=== PATIENT | female | born 1950 | race Caucasian/White ===

== ENCOUNTER → 2016-05-20 | Outpatient (CLI) | payer MEDICARE, OTHER ==
--- NOTE | 2016-05-20 15:33 | XR ---
EXAMINATION TYPE: XR chest 2V DATE OF EXAM: 05/20/2016 3:28 PM COMPARISON: 05/02/2015 HISTORY: Leg edema, cardiac dysrhythmia FINDINGS: The lungs are clear and there is no pneumothorax, pleural effusion, or focal pneumonia. Postsurgica l changes are noted. Apical pleural thickening seen. Atherosclerotic change of the aorta. IMPRESSION: 1. No acute process.
--- NOTE | 2016-05-20 15:33 | XR ---
EXAMINATION TYPE: XR ankle complete LT DATE OF EXAM: 05/20/2016 3:28 PM COMPARISON: NONE HISTORY: Pain Three views of the ankle demonstrate the ankle mortise to be intact and symmetric. Vascular calcifica tion seen is a large plantar calcaneal spur. There is a bony density along the medial malleolus. IMPRESSION: 1. Correlate for tiny avulsion fracture medial malleolus
[2016-05-20 16:19] LABS: ALT 38 U/L (9-52); AST 22 U/L (14-36); Alkaline Phosphatase 93 U/L (38-126); Anion Gap 10 mmol/L; Blood Urea Nitrogen 12 mg/dL (7-17); Calcium 9.1 mg/dL (8.4-10.2); Carbon Dioxide 29 mmol/L (22-30); Chloride 103 mmol/L (98-107); Glucose 130 mg/dL (74-99); Non-African American GFR(MDRD) >60 (>60 ml/min/1.73 sqM); Potassium 4.6 mmol/L (3.5-5.1); Sodium 142 mmol/L (137-145); Total Bilirubin 0.5 mg/dL (0.2-1.3); Total Protein 7.5 g/dL (6.3-8.2)
[2016-05-20 16:20] LABS: Basophils % (A) 0 %; CHCM 34.4; Eosinophils # (A) 0.1 k/uL (0-0.7); Eosinophils % (A) 2 %; HCT 37.7 % (34.0-46.0); HDW 3.16; HGB 12.5 gm/dL (11.4-16.0); Luc # (Auto) 0.19; Luc % (Auto) 3; Lymphocytes # (A) 1.6 k/uL (1.0-4.8); Lymphocytes % (A) 29 %; MCH 31.2 pg (25.0-35.0); MCHC 33.2 g/dL (31.0-37.0); MCV 93.7 fL (80.0-100.0); Mean Platelet Volume 6.5; Monocytes # (A) 0.3 k/uL (0-1.0); Monocytes % (A) 6 %; Neutrophils # (A) 3.3 k/uL (1.3-7.7); Neutrophils % (A) 59 %; RBC 4.02 m/uL (3.80-5.40); RDW 13.2 % (11.5-15.5); WBC 5.6 k/uL (3.8-10.6); WBC (Perox) 6.17
== END | disposition home or self-care (01) ==
LOC: RADXRMAIN 15:10
PROVIDERS: ATTEND Family Medicine
DX: M25.572 Pain in left ankle and joints of left foot (principal); I50.9 Heart failure, unspecified
CPT/HCPCS: 71020; 80053; 83880; 85025

== ENCOUNTER → 2016-12-24 | Outpatient (CLI) | payer MEDICARE, OTHER ==
--- NOTE | 2016-12-24 14:24 | CT ---
EXAMINATION TYPE: TEMPORARY DATE OF EXAM: 12/24/2016 COMPARISON: 12/21/2013 HISTORY: Headaches CT DLP: [address] of the head is obtained. Artifact limits assessment of the skull base. Grossly the mook tricular system is midline and there is evidence of previous low attenuation within the right tempora l parietal junction compatible with previous infarct. Small focal area of abnormal attenuation within the right basal ganglia may been the basis of a prominent Virchow-Yassine space or remote lacunar infa rction. Calvarium intact. IMPRESSION: 1. Stable area of remote ischemia involving the right temporal parietal junction with no significant mass effect.
== END | disposition home or self-care (01) ==
LOC: RADCTMAIN 12:09
PROVIDERS: ATTEND Family Medicine
DX: R51 Headache (principal)
CPT/HCPCS: 70450

== ENCOUNTER → 2017-01-16 | Outpatient (CLI) | payer MEDICARE, OTHER ==
[2017-01-16 14:13] LABS: Blood Urea Nitrogen 18 mg/dL (7-17); Non-African American GFR(MDRD) >60 (>60 ml/min/1.73 sqM)
== END | disposition home or self-care (01) ==
LOC: LABWHC1 13:02
PROVIDERS: ATTEND Psychiatry & Neurology Neurology
DX: R51 Headache (principal)
CPT/HCPCS: 36415; 82565; 84520

== ENCOUNTER → 2017-01-20 | Outpatient (CLI) | payer MEDICARE, OTHER ==
--- NOTE | 2017-01-20 15:42 | CT ---
EXAMINATION TYPE: CT brain w con DATE OF EXAM: 01/20/2017 COMPARISON: 12/24/2016 HISTORY: Loss of balance, memory and headache. CT DLP: 960.00 mGycm Automated exposure control for dose reduction was used. CONTRAST: CT scan of the head is performed with IV Contrast, patient injected with 100 mL of Omnipaque 300. FINDINGS: Abnormal attenuation in the right occipital lobe stable from the previous CT scan. Ventricular system is compatible with the patient's age with no midline shift or mass effect. Area of low attenuation in the basal ganglia on the right compatible with remote ischemic change and lacunar infarction. Prominent cortical vein or tiny venous angioma in the right frontal lobe. Calvarium intact. IMPRESSION: 1. Area of low attenuation in the right occipital parietal junction with no abnormal enhancement. Thi s could be on the basis of previous ischemia. 2. Small venous angioma right frontal lobe incidentally noted. 3. Nonspecific white matter changes most commonly seen with remote microvascular ischemia. If symptom s persist consider MRI.
== END | disposition home or self-care (01) ==
LOC: RADCTMAIN 15:00
PROVIDERS: ATTEND Psychiatry & Neurology Neurology
DX: C71.9 Malignant neoplasm of brain, unspecified (principal); R90.82 White matter disease, unspecified
CPT/HCPCS: 70460; Q9967

== ENCOUNTER 2017-04-15 09:55 | Inpatient (IN) | payer MEDICARE, OTHER ==
[2017-04-15] MEDS ORDERED: methylPREDNISolone SOD SUCCI 125 MG/2 ML VIAL IV STA (10:30)
[2017-04-15] MEDS ORDERED: ALBUTEROL NEBULIZED 2.5 MG/3 ML INHALATION STA (10:30)
--- NOTE | 2017-04-15 10:32 | ED ---
General Adult HPI - General Chief complaint: Shortness of Breath Stated complaint: Sob Time Seen by Provider: 04/15/17 10:00 Source: patient, family, RN notes reviewed Mode of arrival: ambulatory Limitations: no limitations - History of Present Illness Initial comments: This is a 67-year-old female with past medical history significant for bypass surgery COPD and congestive heart failure. Patient states the last 3-4 days she 's been coughing and coughing quite a bit of sputum up. Patient states she's had the chills but has not taken her temperature. Patient denies any chest pain or palpitations patient denies any abdominal pain patient denies nausea vomiting diarrhea. Patient denies any headache patient denies any lightheadedness dizziness or near syncopal episode. Patient denies any back pain. Patient denies any dysuria hematuria urinary frequency. Patient states she's taken a breathing treatment but has not helped. - Related Data Home Medications Medication Instructions Recorded Confirmed Citalopram Hydrobromide [CeleXA] 40 mg PO DAILY 12/21/13 04/15/17 Insulin Glargine,Hum.rec.anlog 50 unit SQ HS 04/03/15 04/15/17 [Lantus Solostar] INSULIN LISPRO (HumaLOG) [HumaLOG] 6 units SQ AC-BRKFST 04/04/15 04/15/17 INSULIN LISPRO (HumaLOG) [HumaLOG] 8 units SQ AC-LUNCH 04/04/15 04/15/17 INSULIN LISPRO (HumaLOG) [HumaLOG] 10 units SQ AC-SUPPER 04/04/15 04/15/17 Furosemide [Lasix] 20 mg PO DAILY 05/02/15 04/15/17 Metoprolol Succinate [Toprol XL] 50 mg PO DAILY 05/02/15 04/15/17 Nitroglycerin Sl Tabs [Nitrostat] 0.4 mg SUBLINGUAL Q5M PRN 05/02/15 04/15/17 Albuterol Nebulized [Ventolin 2.5 mg INHALATION RT-Q4H PRN 04/15/17 04/15/17 Nebulized] Aspirin 81 mg PO DAILY 04/15/17 04/15/17 Losartan Potassium 50 mg PO DAILY 04/15/17 04/15/17 Potassium Chloride ER [K-Dur 20] 20 meq PO DAILY 04/15/17 04/15/17 Simvastatin [Zocor] 40 mg PO HS 04/15/17 04/15/17 amLODIPine [Norvasc] 10 mg PO DAILY 04/15/17 04/15/17 Allergies Allergy/AdvReac Type Severity Reaction Status Date / Time levofloxacin [From Levaquin] Allergy Confusion Verified 04/15/17 11:33 nickel Allergy Wheezing Verified 04/15/17 11:33 Review of Systems ROS Statement: Those systems with pertinent positive or pertinent negative responses have been documented in the HPI. ROS Other: All systems not noted in ROS Statement are negative. Past Medical History Past Medical History: Asthma, Heart Failure, COPD, CVA/TIA, Diabetes Mellitus, Hyperlipidemia, Hypertension, Pneumonia Additional Past Medical History / Comment(s): ARTHRITIS, STROKE 2013. UTI-2013,RT GREAT TOE WOUND. History of Any Multi-Drug Resistant Organisms: None Reported Past Surgical History: Adenoidectomy, Appendectomy, Tonsillectomy, Tubal Ligation Additional Past Surgical History / Comment(s): Open heart on April 13 2015 Past Anesthesia/Blood Transfusion Reactions: Previous Problems w/ Anesthesia Additional Past Anesthesia/Blood Transfusion Reaction / Comment(s): diff breathing Past Psychological History: No Psychological Hx Reported Smoking Status: Former smoker Past Alcohol Use History: Rare Past Drug Use History: None Reported - Past Family History Father Family Medical History: Coronary Artery Disease (CAD), CVA/TIA, Diabetes Mellitus General Exam - General Exam Comments Initial Comments: GENERAL: Patient is well-developed and well-nourished. Patient is nontoxic and well- hydrated and is in mild distress. ENT: Neck is soft and supple. No significant lymphadenopathy is noted. Oropharynx is clear. Moist mucous membranes. Neck has full range of motion without eliciting any pain. EYES: The sclera were anicteric and conjunctiva were pink and moist. Extraocular movements were intact and pupils were equal round and reactive to light. Eyelids were unremarkable. PULMONARY: Diffusely wheezing and decreased breath sounds. CARDIOVASCULAR: There is a regular rate and rhythm without any murmurs gallops or rubs. ABDOMEN: Soft and nontender with normal bowel sounds. No palpable organomegaly was noted. There is no palpable pulsatile mass. SKIN: Skin is clear with no lesions or rashes and otherwise unremarkable. NEUROLOGIC: Patient is alert and oriented x3. Cranial nerves II through XII are grossly intact. Motor and sensory are also intact. Normal speech, volume and content. Symmetrical smile. MUSCULOSKELETAL: Normal extremities with adequate strength and full range of motion. No lower extremity swelling or edema. No calf tenderness. LYMPHATICS: No significant lymphadenopathy is noted PSYCHIATRIC: Normal psychiatric evaluation. Limitations: no limitations Course Vital Signs 04/15/17 04/15/17 04/15/17 09:57 10:53 11:00 Temperature 98.2 F Pulse Rate 121 H 97 111 H Respiratory 28 H 20 Rate Blood Pressure 150/67 138/68 O2 Sat by Pulse 88 L 94 L Oximetry 04/15/17 04/15/17 11:17 12:30 Temperature Pulse Rate 114 H 105 H Respiratory 20 Rate Blood Pressure 162/93 O2 Sat by Pulse 93 L Oximetry Medical Decision Making - Medical Decision Making KG shows a sinus tachycardia at 102 bpm IA interval is 94 QRS is 84 QT interval 3:30 QTC is 440 per patient's EKG shows no ST segment elevation or depression. Patient has some inverted T waves in leads 1 and aVL. Patient's chest x-ray shows no acute normalities. Patient continues to be wheezy throughout. Patient's positive for influenza but this started 4 days ago so no Tamiflu will be started. - Lab Data Result diagrams: 04/15/17 10:45 04/15/17 10:45 Lab Results 04/15/17 04/15/17 04/15/17 Range/Units 10:45 10:45 10:45 WBC 4.5 (3.8-10.6) k/uL RBC 4.61 (3.80-5.40) m/uL Hgb 13.3 (11.4-16.0) gm/dL Hct 41.4 (34.0-46.0) % MCV 89.7 (80.0-100.0) fL MCH 28.7 (25.0-35.0) pg MCHC 32.0 (31.0-37.0) g/dL RDW 15.0 (11.5-15.5) % Plt Count 227 (150-450) k/uL Neutrophils % 54 % Lymphocytes % 30 % Monocytes % 6 % Eosinophils % 6 % Basophils % 0 % Neutrophils # 2.4 (1.3-7.7) k/uL Lymphocytes # 1.3 (1.0-4.8) k/uL Monocytes # 0.3 (0-1.0) k/uL Eosinophils # 0.3 (0-0.7) k/uL Basophils # 0.0 (0-0.2) k/uL PT (9.0-12.0) sec INR (<1.2) APTT (22.0-30.0) sec Sodium 141 (137-145) mmol/L Potassium 4.3 (3.5-5.1) mmol/L Chloride 103 (98-107) mmol/L Carbon Dioxide 25 (22-30) mmol/L Anion Gap 13 mmol/L BUN 12 (7-17) mg/dL Creatinine 0.70 (0.52-1.04) mg/dL Est GFR (MDRD) Af Amer >60 (>60 ml/min/1.73 sqM) Est GFR (MDRD) Non-Af >60 (>60 ml/min/1.73 sqM) Glucose 240 H (74-99) mg/dL Plasma Lactic Acid Sandeep (0.7-2.0) mmol/L Calcium 8.8 (8.4-10.2) mg/dL Magnesium 1.8 (1.6-2.3) mg/dL Total Bilirubin 0.4 (0.2-1.3) mg/dL AST 24 (14-36) U/L ALT 39 (9-52) U/L Alkaline Phosphatase 95 (38-126) U/L Total Creatine Kinase 174 H (30-135) U/L CK-MB (CK-2) 1.2 (0.0-2.4) ng/mL CK-MB (CK-2) Rel Index 0.7 Troponin I 0.018 (0.000-0.034) ng/mL NT-Pro-B Natriuret Pep pg/mL Total Protein 7.2 (6.3-8.2) g/dL Albumin 3.9 (3.5-5.0) g/dL Influenza Type A RNA (Not Detectd) Influenza Type B (PCR) (Not Detectd) 04/15/17 04/15/17 04/15/17 Range/Units 10:45 10:45 10:45 WBC (3.8-10.6) k/uL RBC (3.80-5.40) m/uL Hgb (11.4-16.0) gm/dL Hct (34.0-46.0) % MCV (80.0-100.0) fL MCH (25.0-35.0) pg MCHC (31.0-37.0) g/dL RDW (11.5-15.5) % Plt Count (150-450) k/uL Neutrophils % % Lymphocytes % % Monocytes % % Eosinophils % % Basophils % % Neutrophils # (1.3-7.7) k/uL Lymphocytes # (1.0-4.8) k/uL Monocytes # (0-1.0) k/uL Eosinophils # (0-0.7) k/uL Basophils # (0-0.2) k/uL PT 9.7 (9.0-12.0) sec INR 1.0 (<1.2) APTT 22.8 (22.0-30.0) sec Sodium (137-145) mmol/L Potassium (3.5-5.1) mmol/L Chloride (98-107) mmol/L Carbon Dioxide (22-30) mmol/L Anion Gap mmol/L BUN (7-17) mg/dL Creatinine (0.52-1.04) mg/dL Est GFR (MDRD) Af Amer (>60 ml/min/1.73 sqM) Est GFR (MDRD) Non-Af (>60 ml/min/1.73 sqM) Glucose (74-99) mg/dL Plasma Lactic Acid Sandeep 1.2 (0.7-2.0) mmol/L Calcium (8.4-10.2) mg/dL Magnesium (1.6-2.3) mg/dL Total Bilirubin (0.2-1.3) mg/dL AST (14-36) U/L ALT (9-52) U/L Alkaline Phosphatase (38-126) U/L Total Creatine Kinase (30-135) U/L CK-MB (CK-2) (0.0-2.4) ng/mL CK-MB (CK-2) Rel Index Troponin I (0.000-0.034) ng/mL NT-Pro-B Natriuret Pep 294 pg/mL Total Protein (6.3-8.2) g/dL Albumin (3.5-5.0) g/dL Influenza Type A RNA (Not Detectd) Influenza Type B (PCR) (Not Detectd) 04/15/17 Range/Units 12:02 WBC (3.8-10.6) k/uL RBC (3.80-5.40) m/uL Hgb (11.4-16.0) gm/dL Hct (34.0-46.0) % MCV (80.0-100.0) fL MCH (25.0-35.0) pg MCHC (31.0-37.0) g/dL RDW (11.5-15.5) % Plt Count (150-450) k/uL Neutrophils % % Lymphocytes % % Monocytes % % Eosinophils % % Basophils % % Neutrophils # (1.3-7.7) k/uL Lymphocytes # (1.0-4.8) k/uL Monocytes # (0-1.0) k/uL Eosinophils # (0-0.7) k/uL Basophils # (0-0.2) k/uL PT (9.0-12.0) sec INR (<1.2) APTT (22.0-30.0) sec Sodium (137-145) mmol/L Potassium (3.5-5.1) mmol/L Chloride (98-107) mmol/L Carbon Dioxide (22-30) mmol/L Anion Gap mmol/L BUN (7-17) mg/dL Creatinine (0.52-1.04) mg/dL Est GFR (MDRD) Af Amer (>60 ml/min/1.73 sqM) Est GFR (MDRD) Non-Af (>60 ml/min/1.73 sqM) Glucose (74-99) mg/dL Plasma Lactic Acid Sandeep (0.7-2.0) mmol/L Calcium (8.4-10.2) mg/dL Magnesium (1.6-2.3) mg/dL Total Bilirubin (0.2-1.3) mg/dL AST (14-36) U/L ALT (9-52) U/L Alkaline Phosphatase (38-126) U/L Total Creatine Kinase (30-135) U/L CK-MB (CK-2) (0.0-2.4) ng/mL CK-MB (CK-2) Rel Index Troponin I (0.000-0.034) ng/mL NT-Pro-B Natriuret Pep pg/mL Total Protein (6.3-8.2) g/dL Albumin (3.5-5.0) g/dL Influenza Type A RNA Detected H (Not Detectd) Influenza Type B (PCR) Not Detected (Not Detectd) Disposition Clinical Impression: COPD with acute exacerbation, Influenza A Disposition: ADMITTED IP TO THIS HOSP Referrals: Jacob Sanderson DO [Primary Care Provider] - 1-2 days Time of Disposition: 13:18
[2017-04-15 11:18] LABS: Partial Thromboplastin Time 22.8 sec (22.0-30.0); Prothrombin Time 9.7 sec (9.0-12.0)
[2017-04-15 11:19] LABS: ALT 39 U/L (9-52); AST 24 U/L (14-36); Albumin 3.9 g/dL (3.5-5.0); Alkaline Phosphatase 95 U/L (38-126); Anion Gap 13 mmol/L; Blood Urea Nitrogen 12 mg/dL (7-17); Calcium 8.8 mg/dL (8.4-10.2); Carbon Dioxide 25 mmol/L (22-30); Chloride 103 mmol/L (98-107); Glucose 240 mg/dL (74-99); Magnesium 1.8 mg/dL (1.6-2.3); Potassium 4.3 mmol/L (3.5-5.1); Sodium 141 mmol/L (137-145); Total Bilirubin 0.4 mg/dL (0.2-1.3); Total Protein 7.2 g/dL (6.3-8.2)
[2017-04-15 11:30] LABS: Basophils % (A) 0 %; Eosinophils # (A) 0.3 k/uL (0-0.7); Eosinophils % (A) 6 %; HCT 41.4 % (34.0-46.0); HGB 13.3 gm/dL (11.4-16.0); Lymphocytes # (A) 1.3 k/uL (1.0-4.8); Lymphocytes % (A) 30 %; MCH 28.7 pg (25.0-35.0); MCV 89.7 fL (80.0-100.0); Monocytes # (A) 0.3 k/uL (0-1.0); Monocytes % (A) 6 %; Neutrophils # (A) 2.4 k/uL (1.3-7.7); Neutrophils % (A) 54 %; Platelet Count 227 k/uL (150-450); RBC 4.61 m/uL (3.80-5.40); WBC 4.5 k/uL (3.8-10.6)
--- NOTE | 2017-04-15 11:49 | XR ---
EXAMINATION TYPE: XR chest 2V DATE OF EXAM: 04/15/2017 COMPARISON: 05/20/2016 TECHNIQUE: PA and lateral views submitted. HISTORY: Difficulty breathing FINDINGS: Postsurgical change noted. Hyperinflation suggests COPD. Arthropathy of the shoulders with diffuse os teopenia. No pneumothorax or overt failure. No interstitial edema. Hypertrophic and degenerative major ge of the spine. IMPRESSION: 1. COPD
[2017-04-15 11:58] LABS: Creatine Kinase MB 1.2 ng/mL (0.0-2.4); Troponin I 0.018 ng/mL (0.000-0.034)
[2017-04-15] MEDS ORDERED: IPRATROPIUM-ALBUTEROL 3 ML NEB INHALATION PRN (13:19)
[2017-04-15] MEDS: OSELTAMIVIR 75 MG CAP PO SCH ×2 (14:33→20:59)
[2017-04-15] MEDS ORDERED: NITROGLYCERIN SL TABS 0.4 MG TAB SUBLINGUAL PRN (17:34)
[2017-04-15] MEDS: INSULIN ASPART 100 UNIT/ML 1 ML 10 ML VIAL SQ SCH ×2 (17:42→21:18)
[2017-04-15] MEDS: methylPREDNISolone SOD SUCCI 125 MG/2 ML VIAL IV SCH (17:45)
[2017-04-15] MEDS ORDERED: ACETAMINOPHEN TAB 325 MG TAB PO PRN (17:57)
--- NOTE | 2017-04-15 18:45 | P.HPIM ---
History of Present Illness H&P Date: 04/15/17 Chief Complaint: SOB 65-year-old female one of Dr. 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 Patient was last seen in 2014 for COPD exacerbation. Patient is here in [facility] with worsening shortness of breath or dyspnea with mild cough and wheezes for past 4 days. Patient was in [place] few days back and was exposed to her sick grandchild and has not felt better since then. Positive for influenza A along with ehr She was admitted for acute hypoxic respiratory failure secondary to COPD exacerbation Review of Systems Constitutional: Denies chills, Denies fever, endorses significant weakness and lack of energy Eyes: denies decreased vision, denies diplopia, denies discharge, denies pain Ears: deny: decreased hearing Ears, nose, mouth and throat: Denies dental pain, endorses headache, endorses nasal discharge, Denies nose pain Cardiovascular: Denies chest pain, Denies decreased exercise tolerance, Denies edema, Denies high blood pressure, Denies irregular heart beat, Denies palpitations, Denies paroxysmal nocturnal dyspnea, Denies rapid heart beat, Denies shortness of breath Respiratory: Endorses congestion, cough, sputum production, dyspnea on exertion , wheezing Gastrointestinal: Denies abdominal pain, Denies change in bowel habits, Denies coffee ground emesis, Denies early satiety, Denies excessive gas, Denies heartburn, Denies hematemesis, Denies hematochezia, Denies loss of appetite, Denies nausea, Denies vomiting Genitourinary: Denies dysuria, Denies flank pain, Denies kidney stones, Denies menorrhagia, Denies urgency, Denies urinary frequency Musculoskeletal: Denies gait dysfunction, Denies limitation of motion, Denies morning stiffness, Denies muscle cramps Integumentary: Denies rash, Denies wounds, Denies brittle nails, Denies change in hair/nails, Denies darkening of skin Neurological: Denies balance difficulties, Denies change in speech, Denies double vision, Denies gait dysfunction, Denies loss of vision, Denies motor disturbance, Denies numbness, Denies paralysis, Denies paresthesias, Denies seizures Psychiatric: Denies anxiety, Denies depression Endocrine: Denies excessive sweating, Denies excessive thirst, Denies high blood sugars, Denies palpitations Hematologic/Lymphatic: Denies easy bruising, Denies lymphadenopathy Past Medical History Past Medical History: Asthma, Heart Failure, COPD, CVA/TIA, Diabetes Mellitus, Hyperlipidemia, Hypertension, Myocardial Infarction ([place]), Pneumonia Additional Past Medical History / Comment(s): ARTHRITIS, STROKE 2013 has some short term memory problems and occ balalnce issues. UTI-,RT GREAT TOE WOUND(had amp)."x2 mi's", beginning cataract lt eye. arhtritis Last Myocardial Infarction Date:: 2014 History of Any Multi-Drug Resistant Organisms: None Reported Past Surgical History: Adenoidectomy, Appendectomy, Heart Catheterization, Tonsillectomy, Tubal Ligation Additional Past Surgical History / Comment(s): Open heart on04-14-15 at [place]( quad bypass),rt great toe amp. rt leg stent. Past Anesthesia/Blood Transfusion Reactions: Previous Problems w/ Anesthesia Additional Past Anesthesia/Blood Transfusion Reaction / Comment(s): diff breathing Smoking Status: Former smoker - Past Family History Father Family Medical History: Coronary Artery Disease (CAD), CVA/TIA, Diabetes Mellitus Mother Additional Family Medical History / Comment(s): "spot on the lung" Medications and Allergies Home Medications Medication Instructions Recorded Confirmed Type Citalopram Hydrobromide [CeleXA] 40 mg PO DAILY 12/21/13 04/15/17 History Insulin Glargine,Hum.rec.anlog 50 unit SQ HS 04/03/15 04/15/17 History [Lantus Solostar] INSULIN LISPRO (HumaLOG) [HumaLOG] 6 units SQ AC-BRKFST 04/04/15 04/15/17 History INSULIN LISPRO (HumaLOG) [HumaLOG] 8 units SQ AC-LUNCH 04/04/15 04/15/17 History INSULIN LISPRO (HumaLOG) [HumaLOG] 10 units SQ AC-SUPPER 04/04/15 04/15/17 History Furosemide [Lasix] 20 mg PO DAILY 05/02/15 04/15/17 History Metoprolol Succinate [Toprol XL] 50 mg PO DAILY 05/02/15 04/15/17 History Nitroglycerin Sl Tabs [Nitrostat] 0.4 mg SUBLINGUAL Q5M PRN 05/02/15 04/15/17 History Albuterol Nebulized [Ventolin 2.5 mg INHALATION RT-Q4H PRN 04/15/17 04/15/17 History Nebulized] Aspirin 81 mg PO DAILY 04/15/17 04/15/17 History Losartan Potassium 50 mg PO DAILY 04/15/17 04/15/17 History Potassium Chloride ER [K-Dur 20] 20 meq PO DAILY 04/15/17 04/15/17 History Simvastatin [Zocor] 40 mg PO HS 04/15/17 04/15/17 History amLODIPine [Norvasc] 10 mg PO DAILY 04/15/17 04/15/17 History Allergies Allergy/AdvReac Type Severity Reaction Status Date / Time levofloxacin [From Levaquin] Allergy Confusion Verified 04/15/17 11:33 nickel Allergy Wheezing Verified 04/15/17 11:33 Physical Exam Vitals: Vital Signs Temp Pulse Pulse Resp BP Pulse Ox 04/15/17 17:58 107 H 18 04/15/17 17:22 108 H 04/15/17 17:11 108 H 94 L 04/15/17 16:00 98.5 F 98 20 151/65 95 04/15/17 15:00 97 20 147/65 94 L 04/15/17 14:00 108 H 20 156/70 93 L 04/15/17 12:30 105 H 20 162/93 93 L 04/15/17 11:17 114 H 04/15/17 11:00 111 H 20 138/68 94 L 04/15/17 10:53 97 04/15/17 09:57 98.2 F 121 H 28 H 150/67 88 L Intake and Output 04/15/17 04/15/17 04/15/17 06:59 14:59 22:59 Intake Total 100 Balance 100 Intake: Oral 100 Other: Weight 88.451 kg Patient Weight 04/16/17 06:59 Weight 88.451 kg - Constitutional General appearance: cooperative, no acute distress, obese - EENT Eyes: anicteric sclerae, PERRLA, normal appearance ENT: hearing grossly normal - Neck Neck: no lymphadenopathy, normal ROM, no other, no rigidity, no stridor, no thyromegaly - Respiratory Respiratory: bilateral diminished breath sounds with significant wheezing in all quadrant - Cardiovascular Rhythm: regular Heart sounds: normal: S1, S2 Abnormal Heart Sounds: no systolic murmur, no diastolic murmur, no rub, no S3 Gallop, no S4 Gallop, no click, no other - Gastrointestinal General gastrointestinal: normal bowel sounds, soft - Integumentary Integumentary: no rash - Neurologic Neurologic: CNII-XII intact - Musculoskeletal Musculoskeletal: gait normal, strength equal bilaterally - Psychiatric Psychiatric: A&O x's 3, appropriate affect Results CBC & Chem 7: 04/15/17 10:45 04/15/17 10:45 Labs: Abnormal Lab Results - Last 24 Hours (Table) 04/15/17 04/15/17 04/15/17 Range/Units 10:45 10:45 12:02 Glucose 240 H (74-99) mg/dL Total Creatine Kinase 174 H (30-135) U/L Influenza Type A RNA Detected H (Not Detectd) Thrombosis Risk Factor Assmnt - DVT/VTE Prophylaxis DVT/VTE Prophylaxis: Pharmacologic Prophylaxis ordered Assessment and Plan Plan: 1 COPD exacerbation with acute hypoxic respiratory failure secondary to influenza A .continue DuoNeb as needed for shortness of breath associated with Solu-Medrol 60 IV every 6, sputum culture, incentive spirometry and azithromycin for anti-inflammation effects. Chest x-ray negative for any consolidation 2. Influenza A pneumonia Tamiflu 75 mg by mouth twice a day 3. Severe congestive heart failure with ejection fraction last reported in 2014 as 25% - continue patient on Lasix, aspirin, Lipitor, losartan and metoprolol 4 diabetes2: Patient will be on Accu-Chek with sliding scales coverage. Continue Lantus at 40 units bedtime 5 hypertension: Patient has been on amlodipine. 6 restless leg syndrome: Patient has been on Requip 0.5 mg daily at bedtime. 7 depression: Patient has been on citalopram 20 mg daily. 8 hyperlipidemia: Resume statin for now. #9 coronary artery disease status post quadruple bypass in 2015, stable GI prophylaxis: Patient will be on Protonix 40 mg IV daily. DVT prophylaxis: Lovenox 40 daily CODE STATUS: Full code. Expectation from's admission: Patient be in the hospital for more than 2 nights.
[2017-04-15] MEDS: IPRATROPIUM-ALBUTEROL 3 ML NEB INHALATION PRN (20:33)
[2017-04-15 20:45] LABS: Glucose,Whole Blood 496 mg/dL (75-99)
[2017-04-15 20:45] LABS: Glucose,Whole Blood 516 mg/dL (75-99)
[2017-04-15] MEDS: AZITHROMYCIN 500 MG TAB PO SCH (20:59)
[2017-04-15] MEDS ORDERED: INSULIN DETEMIR 100 UNIT/ML 10 ML VIAL SQ SCH (21:00)
[2017-04-15] MEDS ORDERED: INSULIN REGULAR BOLUS (FROM DRIP BAG) IV ONE (21:15)
[2017-04-15] MEDS: INSULIN REGULAR 100 UNIT in SODIUM CHLORIDE 0.9% 100 ML IV SCH (22:34)
[2017-04-15 23:16] LABS: Glucose,Whole Blood 508 mg/dL (75-99)
[2017-04-15] MEDS: ATORVASTATIN 20 MG TAB PO SCH (23:23)
[2017-04-15] MEDS: HEPARIN SODIUM,PORCINE 5,000 UNIT/ML 1 ML VIAL SQ SCH (23:23)
[2017-04-15 23:39] LABS: Glucose,Whole Blood 554 mg/dL (75-99)
[2017-04-16] MEDS: methylPREDNISolone SOD SUCCI 125 MG/2 ML VIAL IV SCH ×4 (00:06→17:04)
[2017-04-16 00:41] LABS: Glucose,Whole Blood 463 mg/dL (75-99)
[2017-04-16 01:17] LABS: Glucose,Whole Blood 437 mg/dL (75-99)
[2017-04-16 01:49] LABS: Glucose,Whole Blood 369 mg/dL (75-99)
[2017-04-16 01:58] LABS: Hemoglobin A1C 7.7 % (4.0-6.0)
[2017-04-16] MEDS: INSULIN REGULAR 100 UNIT in SODIUM CHLORIDE 0.9% 100 ML IV SCH ×2 (02:00→04:43)
[2017-04-16 02:20] LABS: Glucose,Whole Blood 333 mg/dL (75-99)
[2017-04-16 02:51] LABS: Glucose,Whole Blood 317 mg/dL (75-99)
[2017-04-16 03:22] LABS: Glucose,Whole Blood 286 mg/dL (75-99)
[2017-04-16 03:55] LABS: Glucose,Whole Blood 276 mg/dL (75-99)
[2017-04-16 04:38] LABS: Glucose,Whole Blood 203 mg/dL (75-99)
[2017-04-16 06:32] LABS: Glucose,Whole Blood 156 mg/dL (75-99)
[2017-04-16 06:33] LABS: Basophils % (A) 0 %; Eosinophils % (A) 0 %; HGB 12.9 gm/dL (11.4-16.0); Lymphocytes % (A) 14 %; MCH 27.9 pg (25.0-35.0); MCHC 31.5 g/dL (31.0-37.0); MCV 88.5 fL (80.0-100.0); Mean Platelet Volume 7.1; Monocytes # (A) 0.3 k/uL (0-1.0); Monocytes % (A) 3 %; Neutrophils # (A) 5.9 k/uL (1.3-7.7); Neutrophils % (A) 81 %; Platelet Count 252 k/uL (150-450); RBC 4.63 m/uL (3.80-5.40); RDW 14.8 % (11.5-15.5); WBC 7.3 k/uL (3.8-10.6)
[2017-04-16 06:58] LABS: Anion Gap 13 mmol/L; Blood Urea Nitrogen 24 mg/dL (7-17); Calcium 9.4 mg/dL (8.4-10.2); Carbon Dioxide 24 mmol/L (22-30); Chloride 102 mmol/L (98-107); Glucose 146 mg/dL (74-99); Potassium 4.7 mmol/L (3.5-5.1); Sodium 139 mmol/L (137-145)
[2017-04-16] MEDS: INSULIN ASPART 100 UNIT/ML 1 ML 10 ML VIAL SQ SCH ×3 (07:07→17:03)
[2017-04-16] MEDS: IPRATROPIUM-ALBUTEROL 3 ML NEB INHALATION PRN ×4 (07:35→20:04)
[2017-04-16] MEDS: AZITHROMYCIN 500 MG TAB PO SCH (08:54)
[2017-04-16] MEDS: amLODIPine 10 MG TAB PO SCH (08:54)
[2017-04-16] MEDS: ASPIRIN 81 MG PO SCH (08:54)
[2017-04-16] MEDS: CITALOPRAM HYDROBROMIDE 20 MG TAB PO SCH (08:54)
[2017-04-16] MEDS: HEPARIN SODIUM,PORCINE 5,000 UNIT/ML 1 ML VIAL SQ SCH ×2 (08:55→20:03)
[2017-04-16] MEDS: LOSARTAN 50 MG TAB PO SCH (08:55)
[2017-04-16] MEDS: FUROSEMIDE 20 MG TAB PO SCH (08:55)
[2017-04-16] MEDS: METOPROLOL SUCCINATE (ER) 50 MG TAB.ER.24H PO SCH (08:55)
[2017-04-16] MEDS: OSELTAMIVIR 75 MG CAP PO SCH ×2 (08:56→20:03)
[2017-04-16] MEDS: POTASSIUM CHLORIDE ER 20 MEQ TAB.ER PO SCH (08:56)
[2017-04-16 09:00] LABS: Glucose,Whole Blood 265 mg/dL (75-99)
[2017-04-16] MEDS ORDERED: ENOXAPARIN 40 MG/0.4 ML SYRINGE SQ SCH (09:00)
[2017-04-16] MEDS ORDERED: BENZOCAINE/MENTHOL LOZENG 1 EACH LOZENGE MUCOUS MEM PRN (09:13)
[2017-04-16 10:24] LABS: Glucose,Whole Blood 281 mg/dL (75-99)
--- NOTE | 2017-04-16 11:16 | P.PN ---
Subjective Progress Note Date: 04/16/17 65-year-old female one of Dr. 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 Patient was last seen in 2014 for COPD exacerbation. Patient is here in [facility] with worsening shortness of breath or dyspnea with mild cough and wheezes for past 4 days. Patient was in [place] few days back and was exposed to her sick grandchild and has not felt better since then. Positive for influenza A along with ehr She was admitted for acute hypoxic respiratory failure secondary to COPD exacerbation 04/16: Blood blood glucose running between 156 and 317 which is improvement from 400 to 500s. She will be continued on insulin drip for another 24 hours. Patient continues to have coughing and wheezing. She has been afebrile and mildly tachycardic. Incentive spirometry added. She is currently on Solu- Medrol 60 mg IV every 6 hours which will be continued. Pulmonary consult in place. Patient is continued on Tamiflu and isolation precautions. Objective - Vital Signs Vital signs: Vital Signs Temp 97.5 F L 04/16/17 04:05 Pulse 94 04/16/17 07:45 Resp 18 04/16/17 04:05 BP 141/77 04/16/17 04:05 Pulse Ox 94 L 04/16/17 04:05 Intake & Output 04/15/17 04/16/17 04/16/17 18:59 06:59 18:59 Intake Total 100 308.668 Balance 100 308.668 Weight 88.451 kg 90.3 kg Intake: IV 60 0.9 60 Intake, IV Titration 248.668 Amount Insulin Regular 100 unit 248.668 In Sodium Chloride 0.9% 100 ml @ Titrate IV .Q0M [facility] Rx#:[id number] Oral 100 Other: Voiding Method Toilet - Exam - Constitutional General appearance: cooperative, no acute distress, obese - EENT Eyes: anicteric sclerae, PERRLA, normal appearance ENT: hearing grossly normal - Neck Neck: no lymphadenopathy, normal ROM, no other, no rigidity, no stridor, no thyromegaly - Respiratory Respiratory: bilateral diminished breath sounds with significant wheezing in all quadrant - Cardiovascular Rhythm: regular Heart sounds: normal: S1, S2 Abnormal Heart Sounds: no systolic murmur, no diastolic murmur, no rub, no S3 Gallop, no S4 Gallop, no click, no other - Gastrointestinal General gastrointestinal: normal bowel sounds, soft - Integumentary Integumentary: no rash - Neurologic Neurologic: CNII-XII intact - Musculoskeletal Musculoskeletal: gait normal, strength equal bilaterally - Psychiatric Psychiatric: A&O x's 3, appropriate affect - Labs CBC & Chem 7: 04/16/17 06:03 04/16/17 06:03 Labs: Abnormal Lab Results - Last 24 Hours (Table) 04/15/17 04/15/17 04/15/17 Range/Units 10:45 10:45 12:02 BUN (7-17) mg/dL Glucose 240 H (74-99) mg/dL POC Glucose (mg/dL) (75-99) mg/dL Total Creatine Kinase 174 H (30-135) U/L Influenza Type A RNA Detected H (Not Detectd) 04/15/17 04/15/17 04/15/17 Range/Units 20:41 20:42 23:04 BUN (7-17) mg/dL Glucose (74-99) mg/dL POC Glucose (mg/dL) 496 H 516 H 508 H (75-99) mg/dL Total Creatine Kinase (30-135) U/L Influenza Type A RNA (Not Detectd) 04/15/17 04/16/17 04/16/17 Range/Units 23:37 00:28 01:14 BUN (7-17) mg/dL Glucose (74-99) mg/dL POC Glucose (mg/dL) 554 H 463 H 437 H (75-99) mg/dL Total Creatine Kinase (30-135) U/L Influenza Type A RNA (Not Detectd) 04/16/17 04/16/17 04/16/17 Range/Units 01:48 02:19 02:47 BUN (7-17) mg/dL Glucose (74-99) mg/dL POC Glucose (mg/dL) 369 H 333 H 317 H (75-99) mg/dL Total Creatine Kinase (30-135) U/L Influenza Type A RNA (Not Detectd) 04/16/17 04/16/17 04/16/17 Range/Units 03:19 03:53 04:36 BUN (7-17) mg/dL Glucose (74-99) mg/dL POC Glucose (mg/dL) 286 H 276 H 203 H (75-99) mg/dL Total Creatine Kinase (30-135) U/L Influenza Type A RNA (Not Detectd) 04/16/17 04/16/17 Range/Units 06:03 06:13 BUN 24 H (7-17) mg/dL Glucose 146 H (74-99) mg/dL POC Glucose (mg/dL) 156 H (75-99) mg/dL Total Creatine Kinase (30-135) U/L Influenza Type A RNA (Not Detectd) Assessment and Plan Plan: 1 COPD exacerbation with acute hypoxic respiratory failure secondary to influenza A .continue DuoNeb as needed for shortness of breath associated with Solu-Medrol 60 IV every 6, sputum culture, incentive spirometry and azithromycin for anti-inflammation effects. Chest x-ray negative for any consolidation 2. Influenza A pneumonia Tamiflu 75 mg by mouth twice a day 3. Severe systolic congestive heart failure with ejection fraction last reported in 2015 as 25% - continue patient on Lasix, aspirin, Lipitor, losartan and metoprolol 4 diabetes type 2 uncontrolled secondary to illness and steroids: Patient will be on insulin drip for 1 more day 5 hypertension: Patient has been on amlodipine. 6 restless leg syndrome: Patient has been on Requip 0.5 mg daily at bedtime. 7 recurrent depression: Patient has been on citalopram 20 mg daily. 8 hyperlipidemia: Resume statin for now. 9 coronary artery disease status post quadruple bypass in 2014, stable GI prophylaxis: Patient will be on Protonix 40 mg IV daily. DVT prophylaxis: Lovenox 40 daily CODE STATUS: Full code. Expectation from's admission: Patient be in the hospital for more than 2 nights. Discharge plan: To be determined Impression and plan of care have been directed as dictated by the signing physician. Emily Higginbotham nurse practitioner acting as scribe for signing physician.
[2017-04-16 12:25] LABS: Glucose,Whole Blood 240 mg/dL (75-99)
--- NOTE | 2017-04-16 14:22 | P.CNPUL ---
History of Present Illness Consult date: 04/16/17 Reason for consult: dyspnea History of present illness: A pleasant 67-year-old female patient known having history of coronary artery disease with a previous carotid bypass surgery along with history of COPD/asthma , diabetes mellitus, hypertension and hyperlipidemia, and a previous history of CVA, who presented to the hospital yesterday because of increased cough, chest congestion, wheezing, respiratory distress, feeling fatigued and weak in addition to feeding feverish. The patient was in [place] to visit family and apparently there was a great grandkids who was sick with a respiratory illness at age of 3. After arriving to [place] the patient started getting progressively more symptomatic when she started having all the above-mentioned symptoms. Her symptoms started approximately 4-5 days ago. She tried to contact her primary care physician however he was closed for the holidays. Ultimately condition got worse and both she and her got sick and they both in the hospital. Influenza A screen was positive. Currently the patient is on Tamiflu. Her COPD/asthma is also exacerbated and the patient is on a combination of bronchodilators and systemic steroids. She has developed steroid -induced hyperglycemia and she is on insulin drip. No change in mental status. No altered mentation. No diarrhea. No nausea or vomiting. She is feeling weak and lethargic in general. The patient has not received a flu shot for this current year. Review of Systems Constitutional: Reports fatigue, Reports fever, Reports lethargy, Reports weakness Eyes: denies blurred vision, denies bulging eye, denies decreased vision Ears: deny: decreased hearing, ear discharge, earache Ears, nose, mouth and throat: Denies headache, Denies sore throat Cardiovascular: Reports decreased exercise tolerance, Reports dyspnea on exertion, Reports shortness of breath Respiratory: Reports cough, Reports dyspnea, Reports wheezing Gastrointestinal: Denies abdominal pain, Denies diarrhea, Denies nausea, Denies vomiting Genitourinary: Denies dysuria, Denies hematuria Musculoskeletal: absent: ankle pain, ankle stiffness, ankle swelling Integumentary: Denies pruritus, Denies rash Neurological: Denies numbness, Denies weakness Psychiatric: Denies anxiety, Denies depression Endocrine: Denies fatigue, Denies weight change Past Medical History Past Medical History: Asthma, Heart Failure, COPD, CVA/TIA, Diabetes Mellitus, Hyperlipidemia, Hypertension, Myocardial Infarction ([place]), Pneumonia Additional Past Medical History / Comment(s): Coronary artery disease appears bypass surgery, CHF with preop ejection fraction of 25-30%, COPD/bronchial asthma, CVA history of back in 2013, diabetes mellitus, hypertension, hyperlipidemia, cataracts, degenerative arthritis Last Myocardial Infarction Date:: 2014 History of Any Multi-Drug Resistant Organisms: None Reported Past Surgical History: Adenoidectomy, Appendectomy, Heart Catheterization, Tonsillectomy, Tubal Ligation Additional Past Surgical History / Comment(s): Open heart on04-14-15 at [facility]( quad bypass),rt great toe amp. rt leg stent. Past Anesthesia/Blood Transfusion Reactions: Previous Problems w/ Anesthesia Additional Past Anesthesia/Blood Transfusion Reaction / Comment(s): diff breathing Smoking Status: Former smoker - Past Family History Father Family Medical History: Coronary Artery Disease (CAD), CVA/TIA, Diabetes Mellitus Mother Additional Family Medical History / Comment(s): "spot on the lung" Medications and Allergies Home Medications Medication Instructions Recorded Confirmed Type Citalopram Hydrobromide [CeleXA] 40 mg PO DAILY 12/21/13 04/15/17 History Insulin Glargine,Hum.rec.anlog 50 unit SQ HS 04/03/15 04/15/17 History [Lantus Solostar] INSULIN LISPRO (HumaLOG) [HumaLOG] 6 units SQ AC-BRKFST 04/04/15 04/15/17 History INSULIN LISPRO (HumaLOG) [HumaLOG] 8 units SQ AC-LUNCH 04/04/15 04/15/17 History INSULIN LISPRO (HumaLOG) [HumaLOG] 10 units SQ AC-SUPPER 04/04/15 04/15/17 History Furosemide [Lasix] 20 mg PO DAILY 05/02/15 04/15/17 History Metoprolol Succinate [Toprol XL] 50 mg PO DAILY 05/02/15 04/15/17 History Nitroglycerin Sl Tabs [Nitrostat] 0.4 mg SUBLINGUAL Q5M PRN 05/02/15 04/15/17 History Albuterol Nebulized [Ventolin 2.5 mg INHALATION RT-Q4H PRN 04/15/17 04/15/17 History Nebulized] Aspirin 81 mg PO DAILY 04/15/17 04/15/17 History Losartan Potassium 50 mg PO DAILY 04/15/17 04/15/17 History Potassium Chloride ER [K-Dur 20] 20 meq PO DAILY 04/15/17 04/15/17 History Simvastatin [Zocor] 40 mg PO HS 04/15/17 04/15/17 History amLODIPine [Norvasc] 10 mg PO DAILY 04/15/17 04/15/17 History Allergies Allergy/AdvReac Type Severity Reaction Status Date / Time levofloxacin [From Levaquin] Allergy Confusion Verified 04/15/17 11:33 nickel Allergy Wheezing Verified 04/15/17 11:33 Physical Exam Vitals: Vital Signs Temp Pulse Pulse Resp BP BP Pulse Ox 04/16/17 12:00 102 H 16 135/71 93 L 04/16/17 11:32 100 04/16/17 11:22 100 04/16/17 08:00 97.3 F L 95 16 142/60 95 04/16/17 07:45 94 04/16/17 07:35 92 04/16/17 04:05 97.5 F L 102 H 18 141/77 94 L 04/16/17 04:00 102 H 18 04/16/17 00:00 97.7 F 111 H 20 145/72 95 04/15/17 20:51 100 04/15/17 20:37 100 04/15/17 20:30 97.0 F L 115 H 20 150/66 95 04/15/17 20:00 115 H 20 04/15/17 17:58 107 H 18 04/15/17 17:22 108 H 04/15/17 17:11 108 H 94 L 04/15/17 16:00 98.5 F 98 20 151/65 95 04/15/17 15:00 97 20 147/65 94 L Intake and Output 04/15/17 04/16/17 04/16/17 22:59 06:59 14:59 Intake Total 100 308.668 247.25 Output Total 400 Balance 100 308.668 -152.75 Intake: IV 60 0.9 60 Intake, IV Titration 248.668 7.25 Amount Insulin Regular 100 unit 248.668 7.25 In Sodium Chloride 0.9% 100 ml @ Titrate IV .Q0M [facility] Rx#:[id number] Oral 100 240 Output: Urine 400 Other: Voiding Method Toilet Toilet Toilet Weight 90.3 kg 90.3 kg Patient Weight 04/17/17 06:59 Weight 90.3 kg - Constitutional General appearance: cooperative, no acute distress, obese - EENT Eyes: anicteric sclerae, PERRLA, normal appearance ENT: hearing grossly normal - Neck Neck: no lymphadenopathy, normal ROM, no other, no rigidity, no stridor, no thyromegaly - Respiratory Respiratory: bilateral diminished breath sounds with significant wheezing in lung brisco[place] bilaterally. - Cardiovascular Rhythm: regular Heart sounds: normal: S1, S2 Abnormal Heart Sounds: no systolic murmur, no diastolic murmur, no rub, no S3 Gallop, no S4 Gallop, no click, no other - Gastrointestinal General gastrointestinal: normal bowel sounds, soft - Integumentary Integumentary: no rash - Neurologic Neurologic: CNII-XII intact - Musculoskeletal Musculoskeletal: gait normal, strength equal bilaterally - Psychiatric Psychiatric: A&O x's 3, appropriate affect Results - Laboratory Findings CBC and BMP: 04/16/17 06:03 04/16/17 06:03 PT/INR, D-dimer PT 9.7 sec (9.0-12.0) 04/15/17 10:45 INR 1.0 (<1.2) 04/15/17 10:45 Abnormal lab findings: Abnormal Labs 04/15/17 04/15/17 04/15/17 10:45 10:45 10:45 BUN Glucose 240 H POC Glucose (mg/dL) Hemoglobin A1c 7.7 H Total Creatine Kinase 174 H Influenza Type A RNA 04/15/17 04/15/17 04/15/17 12:02 20:41 20:42 BUN Glucose POC Glucose (mg/dL) 496 H 516 H Hemoglobin A1c Total Creatine Kinase Influenza Type A RNA Detected H 04/15/17 04/15/17 04/16/17 23:04 23:37 00:28 BUN Glucose POC Glucose (mg/dL) 508 H 554 H 463 H Hemoglobin A1c Total Creatine Kinase Influenza Type A RNA 04/16/17 04/16/17 04/16/17 01:14 01:48 02:19 BUN Glucose POC Glucose (mg/dL) 437 H 369 H 333 H Hemoglobin A1c Total Creatine Kinase Influenza Type A RNA 01/03/18 01/03/18 01/03/18 02:47 03:19 03:53 BUN Glucose POC Glucose (mg/dL) 317 H 286 H 276 H Hemoglobin A1c Total Creatine Kinase Influenza Type A RNA 04/16/17 04/16/17 04/16/17 04:36 06:03 06:13 BUN 24 H Glucose 146 H POC Glucose (mg/dL) 203 H 156 H Hemoglobin A1c Total Creatine Kinase Influenza Type A RNA 04/16/17 04/16/17 04/16/17 08:01 10:08 11:56 BUN Glucose POC Glucose (mg/dL) 265 H 281 H 240 H Hemoglobin A1c Total Creatine Kinase Influenza Type A RNA - Diagnostic Findings Chest x-ray: image reviewed Assessment and Plan Plan: Assessment 1 acute influenza a tracheobronchitis 2 acute COPD/asthma exacerbation with secondary shortness of breath bronchospasm wheezing. Exacerbating factor is felt to be acute influenza A infection 3 shortness of breath secondary to above 4 coronary artery disease with previous four-vessel bypass surgery in 2014 5 CHF with a preoperative ejection fraction of 25-30% 6 diabetes mellitus with steroid-induced hyperglycemia currently on insulin drip for blood sugar control 7 hypertension 8 restless leg syndrome 9 hyperlipidemia 10 depression 11 CVA, history of. 12 obesity. Plan We'll need DuoNeb nebulized treatments around the clock. IV Solu-Medrol. Insulin drip for blood sugar control. Tamiflu 75 mg by mouth twice a day. Chest x-ray is free of any acute pulmonary infiltrates. Resume outpatient medications. Monitor blood sugars. Anticipate improvement within next 24-48 hours. The patient will be replaced in a respiratory isolation. Note that the patient has not received a flu shot for this current year. She is currently on 2 L of oxygen nasal cannula and this will be gradually weaned to maintain a saturation above 90%.
[2017-04-16 14:33] LABS: Glucose,Whole Blood 291 mg/dL (75-99)
[2017-04-16 16:23] LABS: Glucose,Whole Blood 243 mg/dL (75-99)
[2017-04-16 18:08] LABS: Glucose,Whole Blood 269 mg/dL (75-99)
[2017-04-16 20:01] LABS: Glucose,Whole Blood 369 mg/dL (75-99)
[2017-04-16] MEDS: ATORVASTATIN 20 MG TAB PO SCH (20:03)
[2017-04-16] MEDS: BUDESONIDE 1 MG/2 ML NEBU INHALATION SCH (20:04)
[2017-04-16] MEDS: PREGABALIN 75 MG CAP PO SCH (21:20)
[2017-04-16 21:58] LABS: Glucose,Whole Blood 339 mg/dL (75-99)
[2017-04-16 23:25] VITALS: BMI 33.1
[2017-04-17] MEDS: methylPREDNISolone SOD SUCCI 125 MG/2 ML VIAL IV SCH ×2 (00:10→06:36)
[2017-04-17 00:12] LABS: Glucose,Whole Blood 265 mg/dL (75-99)
[2017-04-17 02:23] LABS: Glucose,Whole Blood 203 mg/dL (75-99)
[2017-04-17] MEDS: INSULIN REGULAR 100 UNIT in SODIUM CHLORIDE 0.9% 100 ML IV SCH (02:42)
[2017-04-17 04:24] LABS: Glucose,Whole Blood 188 mg/dL (75-99)
[2017-04-17 06:22] LABS: Glucose,Whole Blood 222 mg/dL (75-99)
[2017-04-17] MEDS: INSULIN ASPART 100 UNIT/ML 1 ML 10 ML VIAL SQ SCH ×3 (06:36→17:56)
[2017-04-17 08:12] LABS: Glucose,Whole Blood 161 mg/dL (75-99)
[2017-04-17] MEDS: IPRATROPIUM-ALBUTEROL 3 ML NEB INHALATION PRN ×4 (08:42→20:38)
[2017-04-17] MEDS: BUDESONIDE 1 MG/2 ML NEBU INHALATION SCH ×2 (08:42→20:38)
[2017-04-17] MEDS: POTASSIUM CHLORIDE ER 20 MEQ TAB.ER PO SCH (10:38)
[2017-04-17] MEDS: FUROSEMIDE 20 MG TAB PO SCH (10:38)
[2017-04-17] MEDS: amLODIPine 10 MG TAB PO SCH (10:39)
[2017-04-17] MEDS: PREGABALIN 75 MG CAP PO SCH ×2 (10:39→20:42)
[2017-04-17] MEDS: ASPIRIN 81 MG PO SCH (10:39)
[2017-04-17] MEDS: AZITHROMYCIN 500 MG TAB PO SCH (10:39)
[2017-04-17] MEDS: METOPROLOL SUCCINATE (ER) 50 MG TAB.ER.24H PO SCH (10:39)
[2017-04-17] MEDS: predniSONE 20 MG TAB PO SCH (10:39)
[2017-04-17] MEDS: HEPARIN SODIUM,PORCINE 5,000 UNIT/ML 1 ML VIAL SQ SCH ×2 (10:40→20:42)
[2017-04-17] MEDS: CITALOPRAM HYDROBROMIDE 20 MG TAB PO SCH (10:40)
[2017-04-17] MEDS: OSELTAMIVIR 75 MG CAP PO SCH ×2 (10:40→20:42)
[2017-04-17] MEDS: LOSARTAN 50 MG TAB PO SCH (10:40)
[2017-04-17 11:28] LABS: Glucose,Whole Blood 239 mg/dL (75-99)
--- NOTE | 2017-04-17 13:23 | P.PN ---
<Debo Young M - Last Filed: 04/17/17 13:16> Subjective Progress Note Date: 04/17/17 Principal diagnosis: Acute influenza A tracheobronchitis A pleasant 67-year-old female patient known having history of coronary artery disease with a previous carotid bypass surgery along with history of COPD/asthma , diabetes mellitus, hypertension and hyperlipidemia, and a previous history of CVA, who presented to the hospital yesterday because of increased cough, chest congestion, wheezing, respiratory distress, feeling fatigued and weak in addition to feeding feverish. The patient was in [place] to visit family and apparently there was a great grandkids who was sick with a respiratory illness at age of 2. After arriving to [place] the patient started getting progressively more symptomatic when she started having all the above-mentioned symptoms. Her symptoms started approximately 4-5 days ago. She tried to contact her primary care physician however he was closed for the holidays. Ultimately condition got worse and both she and her got sick and they both in the hospital. Influenza A screen was positive. Currently the patient is on Tamiflu. Her COPD/asthma is also exacerbated and the patient is on a combination of bronchodilators and systemic steroids. She has developed steroid -induced hyperglycemia and she is on insulin drip. No change in mental status. No altered mentation. No diarrhea. No nausea or vomiting. She is feeling weak and lethargic in general. The patient has not received a flu shot for this current year. On 04/17/2017 patient is seen again, lung sounds show improvement in terms of wheezing, patient is still mildly short of breath, but this has improved since yesterday. Remains afebrile, hemodynamically stable, on room air. Blood culture shows no growth at the 48 hour arun. She continues on combination of Tamiflu and Zithromax, nebulizer treatments. Her IV steroids have been switched to oral prednisone per attending physician. No new labs today, blood sugars are better controlled, insulin drip has been discontinued, has been started on basal insulin with Levemir, mealtime insulin NovoLog, and sliding scale. Objective - Vital Signs Vital signs: Vital Signs Temp 97.6 F 04/17/17 08:00 Pulse 88 04/17/17 12:24 Resp 18 04/17/17 08:00 BP 131/71 04/17/17 08:00 Pulse Ox 93 L 04/17/17 08:00 Intake & Output 04/16/17 04/17/17 04/17/17 18:59 06:59 18:59 Intake Total 715.25 100.388 180 Output Total 400 0 Balance 315.25 100.388 180 Weight 90.3 kg 91.6 kg Intake: IV 240 0.9 240 Intake, IV Titration 7.25 100.388 Amount Insulin Regular 100 unit 7.25 100.388 In Sodium Chloride 0.9% 100 ml @ Titrate IV .Q0M [facility] Rx#:[id number] Oral 468 180 Output: Urine 400 0 Other: Voiding Method Toilet # Voids 2 - Exam Constitutional General appearance: cooperative, no acute distress, obese - EENT Eyes: anicteric sclerae, PERRLA, normal appearance ENT: hearing grossly normal - Neck Neck: no lymphadenopathy, normal ROM, no other, no rigidity, no stridor, no thyromegaly - Respiratory Respiratory: bilateral diminished breath sounds with expiratory wheezing, bilaterally, but this has improved since yesterday's exam - Cardiovascular Rhythm: regular Heart sounds: normal: S1, S2 Abnormal Heart Sounds: no systolic murmur, no diastolic murmur, no rub, no S3 Gallop, no S4 Gallop, no click, no other - Gastrointestinal General gastrointestinal: normal bowel sounds, soft - Integumentary Integumentary: no rash - Neurologic Neurologic: CNII-XII intact - Musculoskeletal Musculoskeletal: gait normal, strength equal bilaterally - Psychiatric Psychiatric: A&O x's 3, appropriate affect - Labs CBC & Chem 7: 04/16/17 06:03 04/16/17 06:03 Labs: Abnormal Lab Results - Last 24 Hours (Table) 04/16/17 04/16/17 04/16/17 Range/Units 14:18 16:11 17:56 POC Glucose (mg/dL) 291 H 243 H 269 H (75-99) mg/dL 04/16/17 04/16/17 04/17/17 Range/Units 20:00 21:56 00:11 POC Glucose (mg/dL) 369 H 339 H 265 H (75-99) mg/dL 04/17/17 04/17/17 04/17/17 Range/Units 02:16 04:22 06:20 POC Glucose (mg/dL) 203 H 188 H 222 H (75-99) mg/dL 04/17/17 04/17/17 Range/Units 08:05 11:25 POC Glucose (mg/dL) 161 H 239 H (75-99) mg/dL Microbiology - Last 24 Hours (Table) 04/15/17 10:45 Blood Culture - Preliminary Blood No Growth after 48 hours Assessment and Plan Plan: Assessment 1 acute influenza a tracheobronchitis 2 acute COPD/asthma exacerbation with secondary shortness of breath bronchospasm wheezing. Exacerbating factor is felt to be acute influenza A infection 3 shortness of breath secondary to above 4 coronary artery disease with previous four-vessel bypass surgery in 2014 5 CHF with a preoperative ejection fraction of 25-30% 6 diabetes mellitus with steroid-induced hyperglycemia currently on insulin drip for blood sugar control 7 hypertension 8 restless leg syndrome 9 hyperlipidemia 10 depression 11 CVA, history of. 12 obesity. Plan Continue nebulized treatments, continue oral prednisone. Contiunue zithromax and Tamiflu 75 mg by mouth twice a day. Chest x-ray is free of any acute pulmonary infiltrates. Resume outpatient medications. Blood sugars are under better control, insulin drip was weaned off, and patient was started on a combination of Levemir, mealtime NovoLog insulin sliding scale. There is improvement noted in terms of dyspnea and wheezing. She is on room air, maintaining oxygenation above 90%. If she continues to improve, may consider discharge home in the next 24-48 hours. I performed a history & physical examination of the patient and discussed their management with my nurse practitioner, Debo Young. I reviewed the nurse practitioner's note and agree with the documented findings and plan of care. Lung sounds are positive for expiratory wheezes bilaterally. The findings and the impression was discussed with the patient. I attest to the documentation by the nurse practitioner. Time with Patient: Less than 30 <Basilio Perales - Last Filed: 04/17/17 15:40> Objective - Vital Signs Vital signs: Vital Signs Temp 97.4 F L 04/17/17 12:00 Pulse 88 04/17/17 12:24 Resp 18 04/17/17 12:00 BP 115/57 04/17/17 12:00 Pulse Ox 92 L 04/17/17 12:00 Intake & Output 04/16/17 04/17/17 04/17/17 18:59 06:59 18:59 Intake Total 715.25 100.388 380 Output Total 400 0 Balance 315.25 100.388 380 Weight 90.3 kg 91.6 kg Intake: IV 240 0.9 240 Intake, IV Titration 7.25 100.388 Amount Insulin Regular 100 unit 7.25 100.388 In Sodium Chloride 0.9% 100 ml @ Titrate IV .Q0M [facility] Rx#:[id number] Oral 468 380 Output: Urine 400 0 Other: Voiding Method Toilet Toilet # Voids 2 2 - Labs CBC & Chem 7: 04/16/17 06:03 04/16/17 06:03 Labs: Abnormal Lab Results - Last 24 Hours (Table) 04/16/17 04/16/17 04/16/17 Range/Units 16:11 17:56 20:00 POC Glucose (mg/dL) 243 H 269 H 369 H (75-99) mg/dL 04/16/17 04/17/17 04/17/17 Range/Units 21:56 00:11 02:16 POC Glucose (mg/dL) 339 H 265 H 203 H (75-99) mg/dL 04/17/17 04/17/17 04/17/17 Range/Units 04:22 06:20 08:05 POC Glucose (mg/dL) 188 H 222 H 161 H (75-99) mg/dL 04/17/17 Range/Units 11:25 POC Glucose (mg/dL) 239 H (75-99) mg/dL Microbiology - Last 24 Hours (Table) 04/15/17 10:45 Blood Culture - Preliminary Blood No Growth after 48 hours Assessment and Plan Plan: Is a joint evaluation that was done along with a nurse practitioner. The patient is doing better. The patient is less short of breath compared to yesterday. The patient was taken off the insulin drip. Continue Tamiflu. Continue the steroids. We'll continue to follow.
--- NOTE | 2017-04-17 14:41 | CDI ---
Last Revision, March 2017 Documentation Clarification Form Date: 04/17/2017 2:28:00 PM From: Abbi Lewis RN, CCDS Admit Date: 04/15/2017 1:19:00 PM Patient Name: Tracee Price Visit Number: [id number] Discharge Date: ATTENTION: The Clinical Documentation Specialists (CDI) and [facility] Coding Staff appreciate your assistance in clarifying documentation. Please respond to the clarification below the line at the bottom and electronically sign. The CDI & [facility] Coding staff will review the response and follow-up if needed. Please note: Queries are made part of the Legal Health Record. If you have any questions, please contact the author of this message via ITS. Dr. Agapito Gutierrez/Emily GUEVARA History/Risk Factors: Asthma Heart Failure, COPD, CVA/TIA, Diabetes mellitus, Hypertension, Former smoker Clinical Indicators: Severe systolic congestive heart failure is documented in the H/P and progress notes VS/Pulse OX: 150/67 121 28 98.2 88 % RA 94 % 2/L NC BNP: 294 Echocardiogram Results: (2015) 25 % Chest X Ray: COPD Treatment: Lasix PO ASA Lipitor, Losartan Metoprolol In your professional opinion, can you please clarify the acuity of CHF if known? Systolic Heart Failure: Acute Chronic Acute on Chronic Unable to Determine Other, please specify Please continue to document in your progress notes and discharge summary in order to capture severity of illness and risk of mortality. Include clinical findings that support your diagnosis. _Chronic MTDD
--- NOTE | 2017-04-17 15:03 | CDI ---
Last Revision, March 2017 Documentation Clarification Form Date: 04/17/2017 2:42:00 PM From: Abbi Lewis Admit Date: 04/15/2017 1:19:00 PM Patient Name: Tracee Price Visit Number: [id number] Discharge Date: ATTENTION: The Clinical Documentation Specialists (CDI) and [facility] Coding Staff appreciate your assistance in clarifying documentation. Please respond to the clarification below the line at the bottom and electronically sign. The CDI & [facility] Coding staff will review the response and follow-up if needed. Please note: Queries are made part of the Legal Health Record. If you have any questions, please contact the author of this message via ITS. Dr. Basilio Perales/Debo GUEVARA Asthma is documented in the History of present illness, your consult and progress notes. Patient history/risk factors: Asthma, COPD, Diabetes Mellitus, Hypertension, Coronary artery disease, CVA/TIA, Clinical Indicators: Present with increased cough, chest congestion, wheezing, respiratory distress, feeling fatigued and weak. Influenza A screen was positive. Chest x-ray: COPD Vital Signs on admission: 150/67 121 28 98.2 88 % RA, 94 % 2/L NC Other Clinical Indicators: Respiratory exam: bilateral diminished breath sounds with expiratory wheezing. Treatment: Tamiflu Bronchodilators Zithromax PO Solu-medrol IV change to Prednisone PO Blood sugar Monitor and treatment In your professional opinion, can you please further specify the Asthma Exacerbation: With: Status asthmaticus Acute lower respiratory infection Chronic obstructive bronchitis Other, please specify ___ Unable to determine Severity: Mild intermittent Mild persistent Moderate persistent Severe persistent Other, please specify ____ Unable to determine Form or Type: Cough variant Childhood Exercise induced bronchospasm Extrinsic allergic Idiosyncratic Intrinsic nonallergic Late-onset Mixed Other, please specify____ Unable to determine Please continue to document in your progress notes and discharge summary in order to capture severity of illness and risk of mortality. Include clinical findings that support your diagnosis. Acute asthma exacerbation secondary to an acute viral influenza A bronchitis Acute COPD exacerbation Moderate persistent bronchial asthma, at baseline MTDD
--- NOTE | 2017-04-17 15:11 | P.PN ---
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 Patient was last seen in 2014 for COPD exacerbation. Patient is here in [facility] with worsening shortness of breath or dyspnea with mild cough and wheezes for past 4 days. Patient was in [place] few days back and was exposed to her sick grandchild and has not felt better since then. Positive for influenza A along with ehr She was admitted for acute hypoxic respiratory failure secondary to COPD exacerbation 04/16: Blood blood glucose running between 156 and 317 which is improvement from 400 to 500s. She will be continued on insulin drip for another 24 hours. Patient continues to have coughing and wheezing. She has been afebrile and mildly tachycardic. Incentive spirometry added. She is currently on Solu- Medrol 60 mg IV every 6 hours which will be continued. Pulmonary consult in place. Patient is continued on Tamiflu and isolation precautions. 04/17: Patient's breathing status is improving and she will be switched over to prednisone 60 mg daily. Blood sugars are also improving patient will be switched over to Levemir along with NovoLog scheduled and scale. Blood culture showing no growth after 48 hours. Patient will be transferred to the [facility] floor. Anticipate discharge home tomorrow. Objective - Vital Signs Vital signs: Vital Signs Temp 97.6 F 04/17/17 08:00 Pulse 86 04/17/17 08:00 Resp 18 04/17/17 08:00 BP 131/71 04/17/17 08:00 Pulse Ox 93 L 04/17/17 08:00 Intake & Output 04/16/17 04/17/17 04/17/17 18:59 06:59 18:59 Intake Total 715.25 100.388 Output Total 400 Balance 315.25 100.388 Weight 90.3 kg 91.6 kg Intake: IV 240 0.9 240 Intake, IV Titration 7.25 100.388 Amount Insulin Regular 100 unit 7.25 100.388 In Sodium Chloride 0.9% 100 ml @ Titrate IV .Q0M JAY Rx#:[id number] Oral 468 Output: Urine 400 Other: Voiding Method Toilet # Voids 2 - Exam - Constitutional General appearance: cooperative, no acute distress, obese - EENT Eyes: anicteric sclerae, PERRLA, normal appearance ENT: hearing grossly normal - Neck Neck: no lymphadenopathy, normal ROM, no other, no rigidity, no stridor, no thyromegaly - Respiratory Respiratory: bilateral diminished breath sounds with significant wheezing in all quadrant - Cardiovascular Rhythm: regular Heart sounds: normal: S1, S2 Abnormal Heart Sounds: no systolic murmur, no diastolic murmur, no rub, no S3 Gallop, no S4 Gallop, no click, no other - Gastrointestinal General gastrointestinal: normal bowel sounds, soft - Integumentary Integumentary: no rash - Neurologic Neurologic: CNII-XII intact - Musculoskeletal Musculoskeletal: gait normal, strength equal bilaterally - Psychiatric Psychiatric: A&O x's 3, appropriate affect - Labs CBC & Chem 7: 04/16/17 06:03 04/16/17 06:03 Labs: Abnormal Lab Results - Last 24 Hours (Table) 04/16/17 04/16/17 04/16/17 Range/Units 08:01 10:08 11:56 POC Glucose (mg/dL) 265 H 281 H 240 H (75-99) mg/dL 04/16/17 04/16/17 04/16/17 Range/Units 14:18 16:11 17:56 POC Glucose (mg/dL) 291 H 243 H 269 H (75-99) mg/dL 04/16/17 04/16/17 04/17/17 Range/Units 20:00 21:56 00:11 POC Glucose (mg/dL) 369 H 339 H 265 H (75-99) mg/dL 04/17/17 04/17/17 04/17/17 Range/Units 02:16 04:22 06:20 POC Glucose (mg/dL) 203 H 188 H 222 H (75-99) mg/dL 04/17/17 Range/Units 08:05 POC Glucose (mg/dL) 161 H (75-99) mg/dL Microbiology - Last 24 Hours (Table) 04/15/17 10:45 Blood Culture - Preliminary Blood No Growth after 24 hours Assessment and Plan Plan: 1 COPD exacerbation with acute hypoxic respiratory failure secondary to influenza A .continue DuoNeb as needed for shortness of breath associated with Solu-Medrol to prednisone, sputum culture, incentive spirometry and azithromycin for anti-inflammation effects. Chest x-ray negative for any consolidation 2. Influenza A pneumonia Tamiflu 75 mg by mouth twice a day 3. chronic systolic congestive heart failure with ejection fraction last reported in 2014 as 25% - continue patient on Lasix, aspirin, Lipitor, losartan and metoprolol 4 diabetes type 2 uncontrolled secondary to illness and steroids: Patient will be on insulin drip for 1 more day 5 hypertension: Patient has been on amlodipine. 6 restless leg syndrome: Patient has been on Requip 0.5 mg daily at bedtime. 7 recurrent depression: Patient has been on citalopram 20 mg daily. 8 hyperlipidemia: Resume statin for now. 9 coronary artery disease status post quadruple bypass in 2014, stable GI prophylaxis: Patient will be on Protonix 40 mg IV daily. DVT prophylaxis: Lovenox 40 daily CODE STATUS: Full code. Discharge plan: Return home tomorrow Impression and plan of care have been directed as dictated by the signing physician. Emily Higginbotham nurse practitioner acting as scribe for signing physician.
[2017-04-17 17:07] LABS: Glucose,Whole Blood 287 mg/dL (75-99)
[2017-04-17] MEDS: INSULIN DETEMIR 100 UNIT/ML 10 ML VIAL SQ SCH (20:42)
[2017-04-17] MEDS: ATORVASTATIN 20 MG TAB PO SCH (20:42)
[2017-04-17 21:09] LABS: Glucose,Whole Blood 437 mg/dL (75-99)
[2017-04-18 05:49] LABS: Glucose,Whole Blood 225 mg/dL (75-99)
[2017-04-18] MEDS: INSULIN ASPART 100 UNIT/ML 1 ML 10 ML VIAL SQ SCH ×7 (07:01→20:40)
[2017-04-18] MEDS: BUDESONIDE 1 MG/2 ML NEBU INHALATION SCH ×2 (08:33→19:37)
[2017-04-18] MEDS: IPRATROPIUM-ALBUTEROL 3 ML NEB INHALATION PRN ×4 (08:33→19:36)
[2017-04-18] MEDS: FUROSEMIDE 20 MG TAB PO SCH (08:51)
[2017-04-18] MEDS: amLODIPine 10 MG TAB PO SCH (08:51)
[2017-04-18] MEDS: HEPARIN SODIUM,PORCINE 5,000 UNIT/ML 1 ML VIAL SQ SCH ×2 (08:53→20:12)
[2017-04-18] MEDS: PREGABALIN 75 MG CAP PO SCH ×2 (08:53→20:12)
[2017-04-18] MEDS: predniSONE 20 MG TAB PO SCH (08:53)
[2017-04-18] MEDS: METOPROLOL SUCCINATE (ER) 50 MG TAB.ER.24H PO SCH (08:53)
[2017-04-18] MEDS: CITALOPRAM HYDROBROMIDE 20 MG TAB PO SCH (08:54)
[2017-04-18] MEDS: OSELTAMIVIR 75 MG CAP PO SCH ×2 (08:54→20:12)
[2017-04-18] MEDS: ASPIRIN 81 MG PO SCH (08:54)
[2017-04-18] MEDS: LOSARTAN 50 MG TAB PO SCH (08:54)
[2017-04-18] MEDS: POTASSIUM CHLORIDE ER 20 MEQ TAB.ER PO SCH (08:54)
--- NOTE | 2017-04-18 08:55 | P.PN ---
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 Patient was last seen in 2014 for COPD exacerbation. Patient is here in [facility] with worsening shortness of breath or dyspnea with mild cough and wheezes for past 4 days. Patient was in [place] few days back and was exposed to her sick grandchild and has not felt better since then. Positive for influenza A along with ehr She was admitted for acute hypoxic respiratory failure secondary to COPD exacerbation 04/16: Blood blood glucose running between 156 and 317 which is improvement from 400 to 500s. She will be continued on insulin drip for another 24 hours. Patient continues to have coughing and wheezing. She has been afebrile and mildly tachycardic. Incentive spirometry added. She is currently on Solu- Medrol 60 mg IV every 6 hours which will be continued. Pulmonary consult in place. Patient is continued on Tamiflu and isolation precautions. 04/17: Patient's breathing status is improving slowly and she will be switched over to prednisone 60 mg daily. Blood sugars are also improving patient will be switched over to Levemir along with NovoLog scheduled and scale. Blood culture showing no growth after 48 hours. Patient will be transferred to the [facility] floor. Anticipate discharge home tomorrow. 04/18:No improvement of shortness of breath and cough today. Antibiotics will be changed over to Levaquin and mucinex added. Objective - Vital Signs Vital signs: Vital Signs Temp 97.0 F L 04/17/17 23:00 Pulse 80 04/18/17 08:48 Resp 18 04/17/17 23:00 BP 137/63 04/17/17 23:00 Pulse Ox 91 L 04/17/17 23:00 Intake & Output 04/17/17 04/18/17 04/18/17 18:59 06:59 18:59 Intake Total 620 180 Output Total 400 Balance 220 180 Weight 91.9 kg Intake: Oral 620 180 Output: Urine 400 Other: Voiding Method Toilet # Voids 2 0 - Exam - Constitutional General appearance: cooperative, no acute distress, obese - EENT Eyes: anicteric sclerae, PERRLA, normal appearance ENT: hearing grossly normal - Neck Neck: no lymphadenopathy, normal ROM, no other, no rigidity, no stridor, no thyromegaly - Respiratory Respiratory: bilateral diminished breath sounds with significant wheezing in all quadrant - Cardiovascular Rhythm: regular Heart sounds: normal: S1, S2 Abnormal Heart Sounds: no systolic murmur, no diastolic murmur, no rub, no S3 Gallop, no S4 Gallop, no click, no other - Gastrointestinal General gastrointestinal: normal bowel sounds, soft - Integumentary Integumentary: no rash - Neurologic Neurologic: CNII-XII intact - Musculoskeletal Musculoskeletal: gait normal, strength equal bilaterally - Psychiatric Psychiatric: A&O x's 3, appropriate affect - Labs CBC & Chem 7: 04/16/17 06:03 04/16/17 06:03 Labs: Abnormal Lab Results - Last 24 Hours (Table) 04/17/17 04/17/17 04/17/17 Range/Units 11:25 16:41 21:07 POC Glucose (mg/dL) 239 H 287 H 437 H (75-99) mg/dL 04/18/17 Range/Units 05:46 POC Glucose (mg/dL) 225 H (75-99) mg/dL Microbiology - Last 24 Hours (Table) 04/15/17 10:45 Blood Culture - Preliminary Blood No Growth after 48 hours Assessment and Plan Plan: 1 COPD exacerbation with acute hypoxic respiratory failure secondary to influenza A .continue DuoNeb as needed for shortness of breath associated with Solu-Medrol to prednisone, sputum culture, incentive spirometry and levaquin amd mucinex. Chest x-ray negative for any consolidation 2. Influenza A pneumonia Tamiflu 75 mg by mouth twice a day 3. chronic systolic congestive heart failure with ejection fraction last reported in 2014 as 25% - continue patient on Lasix, aspirin, Lipitor, losartan and metoprolol 4 diabetes type 2 uncontrolled secondary to illness and steroids: Patient will be on insulin drip for 1 more day 5 hypertension: Patient has been on amlodipine. 6 restless leg syndrome: Patient has been on Requip 0.5 mg daily at bedtime. 7 recurrent depression: Patient has been on citalopram 20 mg daily. 8 hyperlipidemia: Resume statin for now. 9 coronary artery disease status post quadruple bypass in 2015, stable GI prophylaxis: Patient will be on Protonix 40 mg IV daily. DVT prophylaxis: Lovenox 40 daily CODE STATUS: Full code. Discharge plan: Return home Impression and plan of care have been directed as dictated by the signing physician. Emily Higginbotham nurse practitioner acting as scribe for signing physician.
[2017-04-18] MEDS: LEVOFLOXACIN 500 MG TAB PO SCH (11:38)
[2017-04-18] MEDS: guaiFENesin 600 MG TABLET.ER PO SCH ×2 (11:38→20:12)
[2017-04-18 11:58] LABS: Glucose,Whole Blood 101 mg/dL (75-99)
[2017-04-18 14:33] LABS: Glucose,Whole Blood 208 mg/dL (75-99)
--- NOTE | 2017-04-18 16:50 | P.PN ---
Subjective Progress Note Date: 04/18/17 Principal diagnosis: Acute influenza A tracheobronchitis A pleasant 67-year-old female patient known having history of coronary artery disease with a previous carotid bypass surgery along with history of COPD/asthma , diabetes mellitus, hypertension and hyperlipidemia, and a previous history of CVA, who presented to the hospital yesterday because of increased cough, chest congestion, wheezing, respiratory distress, feeling fatigued and weak in addition to feeding feverish. The patient was in [place] to visit family and apparently there was a great grandkids who was sick with a respiratory illness at age of 3. After arriving to [place] the patient started getting progressively more symptomatic when she started having all the above-mentioned symptoms. Her symptoms started approximately 4-5 days ago. She tried to contact her primary care physician however he was closed for the holidays. Ultimately condition got worse and both she and her got sick and they both in the hospital. Influenza A screen was positive. Currently the patient is on Tamiflu. Her COPD/asthma is also exacerbated and the patient is on a combination of bronchodilators and systemic steroids. She has developed steroid -induced hyperglycemia and she is on insulin drip. No change in mental status. No altered mentation. No diarrhea. No nausea or vomiting. She is feeling weak and lethargic in general. The patient has not received a flu shot for this current year. On 04/17/2017 patient is seen again, lung sounds show improvement in terms of wheezing, patient is still mildly short of breath, but this has improved since yesterday. Remains afebrile, hemodynamically stable, on room air. Blood culture shows no growth at the 48 hour arun. She continues on combination of Tamiflu and Zithromax, nebulizer treatments. Her IV steroids have been switched to oral prednisone per attending physician. No new labs today, blood sugars are better controlled, insulin drip has been discontinued, has been started on basal insulin with Levemir, mealtime insulin NovoLog, and sliding scale. On 04/18/2016 patient seen again in follow-up. Still complaining significant cough, her abdominal muscles are becoming sore from coughing spells. Lung sounds Still positive for scattered expiratory wheezing, although recent is somewhat improved from previous exams. Patient has been up ambulating within the room, without significant respiratory distress. She remains on Tamiflu, her antibiotics were switched to Levaquin per attending physician. She is on prednisone 60 mg daily, DuoNeb breathing treatments, today Mucinex was handed. Remains afebrile, currently on room air with O2 sats 95-94%. Hemodynamically stable. Objective - Vital Signs Vital signs: Vital Signs Temp 97.1 F L 04/18/17 16:25 Pulse 82 04/18/17 16:35 Resp 17 04/18/17 16:25 BP 144/76 04/18/17 16:25 Pulse Ox 94 L 04/18/17 16:25 Intake & Output 04/17/17 04/18/17 04/18/17 18:59 06:59 18:59 Intake Total 620 680 Output Total 400 Balance 220 680 Weight 91.9 kg Intake: Oral 620 680 Output: Urine 400 Other: Voiding Method Toilet Toilet # Voids 2 0 - Exam Constitutional General appearance: cooperative, no acute distress, obese - EENT Eyes: anicteric sclerae, PERRLA, normal appearance ENT: hearing grossly normal - Neck Neck: no lymphadenopathy, normal ROM, no other, no rigidity, no stridor, no thyromegaly - Respiratory Respiratory: bilateral diminished breath sounds with expiratory wheezing, bilaterally, but this has improved since yesterday's exam - Cardiovascular Rhythm: regular Heart sounds: normal: S1, S2 Abnormal Heart Sounds: no systolic murmur, no diastolic murmur, no rub, no S3 Gallop, no S4 Gallop, no click, no other - Gastrointestinal General gastrointestinal: normal bowel sounds, soft - Integumentary Integumentary: no rash - Neurologic Neurologic: CNII-XII intact - Musculoskeletal Musculoskeletal: gait normal, strength equal bilaterally - Psychiatric Psychiatric: A&O x's 3, appropriate affect - Labs CBC & Chem 7: 04/16/17 06:03 04/16/17 06:03 Labs: Abnormal Lab Results - Last 24 Hours (Table) 04/17/17 04/17/17 04/18/17 Range/Units 16:41 21:07 05:46 POC Glucose (mg/dL) 287 H 437 H 225 H (75-99) mg/dL 04/18/17 04/18/17 Range/Units 11:46 14:18 POC Glucose (mg/dL) 101 H 208 H (75-99) mg/dL Microbiology - Last 24 Hours (Table) 04/15/17 10:45 Blood Culture - Preliminary Blood No Growth after 72 hours Assessment and Plan Plan: Assessment 1 acute influenza a tracheobronchitis, no evidence of acute for respite or infection. 2 acute COPD/asthma exacerbation with secondary shortness of breath bronchospasm wheezing, secondary to acute influenza A tracheobronchitis. 3 shortness of breath secondary to above 4 coronary artery disease with previous four-vessel bypass surgery in 2014 5 CHF with a preoperative ejection fraction of 25-30% 6 diabetes mellitus with steroid-induced hyperglycemia currently on insulin drip for blood sugar control 7 hypertension 8 restless leg syndrome 9 hyperlipidemia 10 depression 11 CVA, history of. 12 obesity. Plan Patient continues to have significant coughing spells and wheezing. Continue oral prednisone 60 mg daily, continue Tamiflu, Zithromax was switched to Levaquin. Continue DuoNeb nebulized treatments, Mucinex. Continue increase activity as tolerated. Not ready for discharge. I performed a history & physical examination of the patient and discussed their management with my nurse practitioner, Debo Young. I reviewed the nurse practitioner's note and agree with the documented findings and plan of care. Lung sounds are positive for expiratory wheezes bilaterally. The findings and the impression was discussed with the patient. I attest to the documentation by the nurse practitioner. Time with Patient: Less than 30
[2017-04-18 17:14] LABS: Glucose,Whole Blood 219 mg/dL (75-99)
[2017-04-18] MEDS: ATORVASTATIN 20 MG TAB PO SCH (20:12)
[2017-04-18 20:22] LABS: Glucose,Whole Blood 302 mg/dL (75-99)
[2017-04-18] MEDS: INSULIN DETEMIR 100 UNIT/ML 10 ML VIAL SQ SCH (20:40)
[2017-04-19 06:57] LABS: Glucose,Whole Blood 79 mg/dL (75-99)
[2017-04-19 07:26] LABS: Glucose,Whole Blood 66 mg/dL (75-99)
[2017-04-19] MEDS: IPRATROPIUM-ALBUTEROL 3 ML NEB INHALATION PRN ×4 (07:31→20:10)
[2017-04-19] MEDS: BUDESONIDE 1 MG/2 ML NEBU INHALATION SCH ×2 (07:32→20:10)
[2017-04-19 07:53] LABS: Glucose,Whole Blood 91 mg/dL (75-99)
[2017-04-19 08:08] LABS: HCT 41.3 % (34.0-46.0); HGB 13.2 gm/dL (11.4-16.0); MCH 28.8 pg (25.0-35.0); MCHC 31.9 g/dL (31.0-37.0); MCV 90.3 fL (80.0-100.0); Mean Platelet Volume 7.1; Platelet Count 264 k/uL (150-450); RBC 4.57 m/uL (3.80-5.40); RDW 13.9 % (11.5-15.5); WBC 9.7 k/uL (3.8-10.6)
[2017-04-19 08:32] LABS: ALT 46 U/L (9-52); AST 35 U/L (14-36); Albumin 3.7 g/dL (3.5-5.0); Alkaline Phosphatase 78 U/L (38-126); Anion Gap 11 mmol/L; Blood Urea Nitrogen 23 mg/dL (7-17); Carbon Dioxide 23 mmol/L (22-30); Chloride 108 mmol/L (98-107); Glucose 62 mg/dL (74-99); Potassium 4.7 mmol/L (3.5-5.1); Sodium 142 mmol/L (137-145); Total Bilirubin 0.4 mg/dL (0.2-1.3); Total Protein 6.9 g/dL (6.3-8.2)
[2017-04-19] MEDS: ASPIRIN 81 MG PO SCH (09:45)
[2017-04-19] MEDS: HEPARIN SODIUM,PORCINE 5,000 UNIT/ML 1 ML VIAL SQ SCH ×2 (09:45→22:48)
[2017-04-19] MEDS: LEVOFLOXACIN 500 MG TAB PO SCH (09:45)
[2017-04-19] MEDS: POTASSIUM CHLORIDE ER 20 MEQ TAB.ER PO SCH (09:45)
[2017-04-19] MEDS: predniSONE 20 MG TAB PO SCH (09:45)
[2017-04-19] MEDS: OSELTAMIVIR 75 MG CAP PO SCH ×2 (09:45→22:48)
[2017-04-19] MEDS: CITALOPRAM HYDROBROMIDE 20 MG TAB PO SCH (09:46)
[2017-04-19] MEDS: METOPROLOL SUCCINATE (ER) 50 MG TAB.ER.24H PO SCH (09:46)
[2017-04-19] MEDS: guaiFENesin 600 MG TABLET.ER PO SCH ×2 (09:46→22:48)
[2017-04-19] MEDS: FUROSEMIDE 20 MG TAB PO SCH (09:46)
[2017-04-19] MEDS: amLODIPine 10 MG TAB PO SCH (09:47)
[2017-04-19] MEDS: INSULIN ASPART 100 UNIT/ML 1 ML 10 ML VIAL SQ SCH ×7 (09:59→23:00)
[2017-04-19] MEDS: LOSARTAN 50 MG TAB PO SCH (10:03)
[2017-04-19 11:22] LABS: Glucose,Whole Blood 135 mg/dL (75-99)
--- NOTE | 2017-04-19 11:44 | P.PN ---
Subjective Progress Note Date: 04/19/17 patient continued to be hemodynamically stable she is improved but still not quite ready to go home as she is still lethargic patient is sitting at the bedside refusing to go home and said that she would like to stay elevated until tomorrow. Patient is denying chest pain, nausea, vomiting, abdominal pain, dizziness, lightheadedness or blurry vision. Patient is tolerating diet without difficulty Objective - Vital Signs Vital signs: Vital Signs Temp 98.6 F 04/19/17 07:00 Pulse 84 04/19/17 11:18 Resp 16 04/19/17 08:00 BP 129/62 04/19/17 07:00 Pulse Ox 95 04/19/17 07:00 Intake & Output 04/18/17 04/19/17 04/19/17 18:59 06:59 18:59 Intake Total 680 250 Balance 680 250 Intake: Oral 680 250 Other: Voiding Method Toilet # Voids 3 1 - Exam lungs clear to auscultation bilaterally Heart normal S1-S2 Abdomen soft no tenderness was fossils normal for quadrant Skin no new rash Psych alert and oriented 3 Neuro intact - Labs CBC & Chem 7: 04/19/17 07:05 04/19/17 07:05 Labs: Abnormal Lab Results - Last 24 Hours (Table) 04/18/17 04/18/17 04/18/17 Range/Units 11:46 14:18 16:40 Chloride (98-107) mmol/L BUN (7-17) mg/dL Glucose (74-99) mg/dL POC Glucose (mg/dL) 101 H 208 H 219 H (75-99) mg/dL 04/18/17 04/19/17 04/19/17 Range/Units 20:18 07:05 07:23 Chloride 108 H (98-107) mmol/L BUN 23 H (7-17) mg/dL Glucose 62 L (74-99) mg/dL POC Glucose (mg/dL) 302 H 66 L (75-99) mg/dL 04/19/17 Range/Units 11:20 Chloride (98-107) mmol/L BUN (7-17) mg/dL Glucose (74-99) mg/dL POC Glucose (mg/dL) 135 H (75-99) mg/dL Microbiology - Last 24 Hours (Table) 04/15/17 10:45 Blood Culture - Preliminary Blood No Growth after 72 hours Assessment and Plan Assessment: 1. COPD with exacerbation secondary to influenza. We will continue Tamiflu would continue weaning off steroids as tolerated follow-up with pulmonary recommendation. Plan for discharging in the morning. 2. Diabetes mellitus type 2 with one episode of hypoglycemia this morning where patient was asymptomatic with continue monitoring and avoid hypoglycemia discussed with the nursing staff. 3. Hypertension. Controlled with continue blood pressure medication with holding parameters. 4. Restless leg syndrome. Continue Requip needed 5. Hyperlipidemia. Continue statin. Discharge planning based on clinical progress
--- NOTE | 2017-04-19 13:08 | P.PN ---
Subjective Progress Note Date: 04/19/17 Principal diagnosis: Acute influenza and tracheobronchitis. A pleasant 67-year-old female patient known having history of coronary artery disease with a previous carotid bypass surgery along with history of COPD/asthma , diabetes mellitus, hypertension and hyperlipidemia, and a previous history of CVA, who presented to the hospital yesterday because of increased cough, chest congestion, wheezing, respiratory distress, feeling fatigued and weak in addition to feeding feverish. The patient was in [place] to visit family and apparently there was a great grandkids who was sick with a respiratory illness at age of 2. After arriving to [place] the patient started getting progressively more symptomatic when she started having all the above-mentioned symptoms. Her symptoms started approximately 4-5 days ago. She tried to contact her primary care physician however he was closed for the holidays. Ultimately condition got worse and both she and her got sick and they both in the hospital. Influenza A screen was positive. Currently the patient is on Tamiflu. Her COPD/asthma is also exacerbated and the patient is on a combination of bronchodilators and systemic steroids. She has developed steroid -induced hyperglycemia and she is on insulin drip. No change in mental status. No altered mentation. No diarrhea. No nausea or vomiting. She is feeling weak and lethargic in general. The patient has not received a flu shot for this current year. On 04/17/2017 patient is seen again, lung sounds show improvement in terms of wheezing, patient is still mildly short of breath, but this has improved since yesterday. Remains afebrile, hemodynamically stable, on room air. Blood culture shows no growth at the 48 hour arun. She continues on combination of Tamiflu and Zithromax, nebulizer treatments. Her IV steroids have been switched to oral prednisone per attending physician. No new labs today, blood sugars are better controlled, insulin drip has been discontinued, has been started on basal insulin with Levemir, mealtime insulin NovoLog, and sliding scale. On 04/18/2016 patient seen again in follow-up. Still complaining significant cough, her abdominal muscles are becoming sore from coughing spells. Lung sounds Still positive for scattered expiratory wheezing, although recent is somewhat improved from previous exams. Patient has been up ambulating within the room, without significant respiratory distress. She remains on Tamiflu, her antibiotics were switched to Levaquin per attending physician. She is on prednisone 60 mg daily, DuoNeb breathing treatments, today Mucinex was handed. Remains afebrile, currently on room air with O2 sats 95-94%. Hemodynamically stable. The patient is seen again today 04/19/2017 in follow-up on the regular medical floor. She is awake and alert in no acute distress. She's been up ambulating in her room without significant dyspnea may have. She remains on Tamiflu. She is currently on Levaquin. She remains on prednisone. She is somewhat bronchospastic and wheezy still. She is maintaining good O2 saturations in the mid 90s on room air. She's been afebrile. Blood cultures are negative. Objective - Vital Signs Vital signs: Vital Signs Temp 98.6 F 04/19/17 07:00 Pulse 84 04/19/17 11:18 Resp 16 04/19/17 08:00 BP 129/62 04/19/17 07:00 Pulse Ox 95 04/19/17 07:00 Intake & Output 04/18/17 04/19/17 04/19/17 18:59 06:59 18:59 Intake Total 680 250 Balance 680 250 Intake: Oral 680 250 Other: Voiding Method Toilet # Voids 3 1 - Exam GENERAL EXAM: Alert, active, comfortable in no apparent distress. HEAD: Normocephalic. EYES: Normal reaction of pupils, equal size. NOSE: Clear with pink turbinates. THROAT: No erythema or exudates. NECK: No masses, no JVD. CHEST: No chest wall deformity. LUNGS: Equal air entry with HEENT and expiratory wheeze. Few scattered rhonchi.. CVS: S1 and S2 normal with no audible murmur, regular rhythm. ABDOMEN: No hepatosplenomegaly, normal bowel sounds, no guarding or rigidity. SPINE: No scoliosis or deformity SKIN: No rashes CENTRAL NERVOUS SYSTEM: No focal deficits, tone is normal in all 4 extremities. EXTREMITIES: There is no peripheral edema. No clubbing, no cyanosis. Peripheral pulses are intact. - Labs CBC & Chem 7: 04/19/17 07:05 04/19/17 07:05 Labs: Abnormal Lab Results - Last 24 Hours (Table) 04/18/17 04/18/17 04/18/17 Range/Units 14:18 16:40 20:18 Chloride (98-107) mmol/L BUN (7-17) mg/dL Glucose (74-99) mg/dL POC Glucose (mg/dL) 208 H 219 H 302 H (75-99) mg/dL 04/19/17 04/19/17 04/19/17 Range/Units 07:05 07:23 11:20 Chloride 108 H (98-107) mmol/L BUN 23 H (7-17) mg/dL Glucose 62 L (74-99) mg/dL POC Glucose (mg/dL) 66 L 135 H (75-99) mg/dL Microbiology - Last 24 Hours (Table) 04/15/17 10:45 Blood Culture - Preliminary Blood No Growth after 72 hours Assessment and Plan Assessment: Assessment 1 acute influenza a tracheobronchitis, no evidence of acute for respite or infection. 2 acute COPD/asthma exacerbation with secondary shortness of breath bronchospasm wheezing, secondary to acute influenza A tracheobronchitis. 3 shortness of breath secondary to above 4 coronary artery disease with previous four-vessel bypass surgery in 2014 5 CHF with a preoperative ejection fraction of 25-30% 6 diabetes mellitus with steroid-induced hyperglycemia currently on insulin drip for blood sugar control 7 hypertension 8 restless leg syndrome 9 hyperlipidemia 10 depression 11 CVA, history of. 12 obesity. Plan The patient was seen and evaluated by Dr. Perales. She is improved today as compared to yesterday. Not quite back to her baseline. She is maintaining good O2 saturations in the 90s on room air. We'll continue with the prednisone taper. Continue antibiotics and Tamiflu. Continue bronchodilators and Mucinex. Will increase her activity as tolerated. We'll continue to follow and make further recommendations based on her clinical status. Hopefully plan for discharge in the a.m. I, the cosigning physician, have performed a history and physical examination on the patient. Lung sounds are clear. Maintaining good O2 saturations in the 90s on room air. I have discussed the assessment and plan of care with my nurse practitioner, Ashley Xiao. I attest the above documented note as dictated by her.
[2017-04-19] MEDS: PREGABALIN 75 MG CAP PO SCH (16:45)
[2017-04-19 16:47] LABS: Glucose,Whole Blood 389 mg/dL (75-99)
[2017-04-19] MEDS ORDERED: INSULIN DETEMIR 100 UNIT/ML 10 ML VIAL SQ SCH (16:50)
[2017-04-19 20:25] LABS: Glucose,Whole Blood 383 mg/dL (75-99)
[2017-04-19] MEDS ORDERED: PREGABALIN 75 MG CAP PO SCH (21:00)
[2017-04-19] MEDS: ATORVASTATIN 20 MG TAB PO SCH (22:48)
[2017-04-19 23:10] LABS: Glucose,Whole Blood 289 mg/dL (75-99)
[2017-04-20 07:38] LABS: Glucose,Whole Blood 66 mg/dL (75-99)
[2017-04-20 07:53] LABS: Glucose,Whole Blood 124 mg/dL (75-99)
[2017-04-20] MEDS: INSULIN ASPART 100 UNIT/ML 1 ML 10 ML VIAL SQ SCH ×4 (09:38→12:05)
[2017-04-20] MEDS: CITALOPRAM HYDROBROMIDE 20 MG TAB PO SCH (09:45)
[2017-04-20] MEDS: LEVOFLOXACIN 500 MG TAB PO SCH (09:45)
[2017-04-20] MEDS: HEPARIN SODIUM,PORCINE 5,000 UNIT/ML 1 ML VIAL SQ SCH (09:45)
[2017-04-20] MEDS: guaiFENesin 600 MG TABLET.ER PO SCH (09:45)
[2017-04-20] MEDS: amLODIPine 10 MG TAB PO SCH (09:45)
[2017-04-20] MEDS: LOSARTAN 50 MG TAB PO SCH (09:45)
[2017-04-20] MEDS: predniSONE 20 MG TAB PO SCH (09:45)
[2017-04-20] MEDS: ASPIRIN 81 MG PO SCH (09:46)
[2017-04-20] MEDS: FUROSEMIDE 20 MG TAB PO SCH (09:46)
[2017-04-20] MEDS: POTASSIUM CHLORIDE ER 20 MEQ TAB.ER PO SCH (09:46)
[2017-04-20] MEDS: METOPROLOL SUCCINATE (ER) 50 MG TAB.ER.24H PO SCH (09:48)
[2017-04-20] MEDS: IPRATROPIUM-ALBUTEROL 3 ML NEB INHALATION PRN ×2 (10:07→13:37)
[2017-04-20] MEDS: BUDESONIDE 1 MG/2 ML NEBU INHALATION SCH (10:07)
[2017-04-20 11:10] LABS: Glucose,Whole Blood 127 mg/dL (75-99)
[2017-04-20 14:33] VITALS: BP 123/58; PULSE 83; RESP 16; TEMP 97
--- NOTE | 2017-04-20 15:27 | P.PN ---
Subjective Progress Note Date: 04/20/17 A pleasant 67-year-old female patient known having history of coronary artery disease with a previous carotid bypass surgery along with history of COPD/asthma , diabetes mellitus, hypertension and hyperlipidemia, and a previous history of CVA, who presented to the hospital yesterday because of increased cough, chest congestion, wheezing, respiratory distress, feeling fatigued and weak in addition to feeding feverish. The patient was in [place] to visit family and apparently there was a great grandkids who was sick with a respiratory illness at age of 2. After arriving to [place] the patient started getting progressively more symptomatic when she started having all the above-mentioned symptoms. Her symptoms started approximately 4-5 days ago. She tried to contact her primary care physician however he was closed for the holidays. Ultimately condition got worse and both she and her got sick and they both in the hospital. Influenza A screen was positive. Currently the patient is on Tamiflu. Her COPD/asthma is also exacerbated and the patient is on a combination of bronchodilators and systemic steroids. She has developed steroid -induced hyperglycemia and she is on insulin drip. No change in mental status. No altered mentation. No diarrhea. No nausea or vomiting. She is feeling weak and lethargic in general. The patient has not received a flu shot for this current year. On 04/17/2017 patient is seen again, lung sounds show improvement in terms of wheezing, patient is still mildly short of breath, but this has improved since yesterday. Remains afebrile, hemodynamically stable, on room air. Blood culture shows no growth at the 48 hour arun. She continues on combination of Tamiflu and Zithromax, nebulizer treatments. Her IV steroids have been switched to oral prednisone per attending physician. No new labs today, blood sugars are better controlled, insulin drip has been discontinued, has been started on basal insulin with Levemir, mealtime insulin NovoLog, and sliding scale. On 04/18/2016 patient seen again in follow-up. Still complaining significant cough, her abdominal muscles are becoming sore from coughing spells. Lung sounds Still positive for scattered expiratory wheezing, although recent is somewhat improved from previous exams. Patient has been up ambulating within the room, without significant respiratory distress. She remains on Tamiflu, her antibiotics were switched to Levaquin per attending physician. She is on prednisone 60 mg daily, DuoNeb breathing treatments, today Mucinex was handed. Remains afebrile, currently on room air with O2 sats 95-94%. Hemodynamically stable. The patient is seen again today 04/19/2017 in follow-up on the regular medical floor. She is awake and alert in no acute distress. She's been up ambulating in her room without significant dyspnea may have. She remains on Tamiflu. She is currently on Levaquin. She remains on prednisone. She is somewhat bronchospastic and wheezy still. She is maintaining good O2 saturations in the mid 90s on room air. She's been afebrile. Blood cultures are negative. On 04/20/2017 the patient remains essentially the same. Still bronchus spastic and wheezy. Improvement is been very limited since yesterday. Still on Tamiflu. Still on Levaquin. Still on prednisone burst taper starting with 60 mg. We'll continue to follow. Objective - Vital Signs Vital signs: Vital Signs Temp 97 F L 04/20/17 14:33 Pulse 83 04/20/17 14:33 Resp 16 04/20/17 14:33 BP 123/58 04/20/17 14:33 Pulse Ox 89 L 04/20/17 14:33 Intake & Output 04/19/17 04/20/17 04/20/17 18:59 06:59 18:59 Intake Total 910 1020 Output Total 500 Balance 910 -500 1020 Intake: Oral 910 1020 Output: Urine 500 Uretheral ([place]) 200 Other: Voiding Method Toilet # Voids 1 1 - Exam GENERAL EXAM: Alert, active, comfortable in no apparent distress. HEAD: Normocephalic. EYES: Normal reaction of pupils, equal size. NOSE: Clear with pink turbinates. THROAT: No erythema or exudates. NECK: No masses, no JVD. CHEST: No chest wall deformity. LUNGS: Equal air entry with HEENT and expiratory wheeze. Few scattered rhonchi.. CVS: S1 and S2 normal with no audible murmur, regular rhythm. ABDOMEN: No hepatosplenomegaly, normal bowel sounds, no guarding or rigidity. SPINE: No scoliosis or deformity SKIN: No rashes CENTRAL NERVOUS SYSTEM: No focal deficits, tone is normal in all 4 extremities. EXTREMITIES: There is no peripheral edema. No clubbing, no cyanosis. Peripheral pulses are intact. - Labs CBC & Chem 7: 04/19/17 07:05 04/19/17 07:05 Labs: Abnormal Lab Results - Last 24 Hours (Table) 04/19/17 04/19/17 04/19/17 Range/Units 16:30 19:55 22:49 POC Glucose (mg/dL) 389 H 383 H 289 H (75-99) mg/dL 04/20/17 04/20/17 04/20/17 Range/Units 07:18 07:50 10:56 POC Glucose (mg/dL) 66 L 124 H 127 H (75-99) mg/dL Microbiology - Last 24 Hours (Table) 04/15/17 10:45 Blood Culture - Preliminary Blood No Growth after 120 hours Assessment and Plan Plan: Assessment 1 acute influenza a tracheobronchitis, no evidence of acute for respite or infection. The patient is currently on Tamiflu. Still symptomatic. Asthma/ COPD remains quite active. 2 acute COPD/asthma exacerbation with secondary shortness of breath bronchospasm wheezing, secondary to acute influenza A tracheobronchitis. 3 shortness of breath secondary to above 4 coronary artery disease with previous four-vessel bypass surgery in 2015 5 CHF with a preoperative ejection fraction of 25-30% 6 diabetes mellitus with steroid-induced hyperglycemia currently on insulin drip for blood sugar control 7 hypertension 8 restless leg syndrome 9 hyperlipidemia 10 depression 11 CVA, history of. 12 obesity. Plan Continue same treatment. Even with this patient in a.m.
--- NOTE | 2017-04-20 15:32 | P.DS ---
Providers Date of admission: 04/15/17 13:19 Attending physician: Agapito Gutierrez MD Consults: 04/16/17 08:15 Consult Physician Routine Consulting Provider: Tyler Baig Reason/Comments: COPD exacerbation Do you want consulting provider notified?: Yes Primary care physician: [facility] Course: This is 67 years old female who presented to the hospital with upper respiratory symptoms and that shortness of breath patient was diagnosed with tracheobronchitis and was positive for H1 N1 patient was started on Tamiflu completed a 5 discourse during this hospital stay improved dramatically and was evaluated by pulmonary who felt that the patient stable for discharge to follow -up in the office patient advised to follow-up with her primary care physician in one week and was discharged on Medrol Dosepak to be tapered down slowly. Patient was tolerating diet ambulating in the [place] without shortness breath and back at baseline according to her evaluation patient felt stable and was discharged in stable condition Plan - Discharge Summary Discharge Rx Participant: No New Discharge Prescriptions: No Action Citalopram Hydrobromide [CeleXA] 40 mg PO DAILY Insulin Glargine,Hum.rec.anlog [Lantus Solostar] 50 unit SQ HS INSULIN LISPRO (HumaLOG) [HumaLOG] 10 units SQ AC-SUPPER INSULIN LISPRO (HumaLOG) [HumaLOG] 8 units SQ AC-LUNCH INSULIN LISPRO (HumaLOG) [HumaLOG] 6 units SQ AC-BRKFST Nitroglycerin Sl Tabs [Nitrostat] 0.4 mg SUBLINGUAL Q5M PRN PRN Reason: Chest Pain Metoprolol Succinate [Toprol XL] 50 mg PO DAILY Furosemide [Lasix] 20 mg PO DAILY Albuterol Nebulized [Ventolin Nebulized] 2.5 mg INHALATION RT-Q4H PRN PRN Reason: sob amLODIPine [Norvasc] 10 mg PO DAILY Simvastatin [Zocor] 40 mg PO HS Potassium Chloride ER [K-Dur 20] 20 meq PO DAILY Losartan Potassium 50 mg PO DAILY Aspirin 81 mg PO DAILY Discharge Medication List Citalopram Hydrobromide [CeleXA] 40 mg PO DAILY 12/21/13 [History] Insulin Glargine,Hum.rec.anlog [Lantus Solostar] 50 unit SQ HS 04/03/15 [History ] INSULIN LISPRO (HumaLOG) [HumaLOG] 6 units SQ AC-BRKFST 04/04/15 [History] INSULIN LISPRO (HumaLOG) [HumaLOG] 8 units SQ AC-LUNCH 04/04/15 [History] INSULIN LISPRO (HumaLOG) [HumaLOG] 10 units SQ AC-SUPPER 04/04/15 [History] Furosemide [Lasix] 20 mg PO DAILY 05/02/15 [History] Metoprolol Succinate [Toprol XL] 50 mg PO DAILY 05/02/15 [History] Nitroglycerin Sl Tabs [Nitrostat] 0.4 mg SUBLINGUAL Q5M PRN 05/02/15 [History] Albuterol Nebulized [Ventolin Nebulized] 2.5 mg INHALATION RT-Q4H PRN 04/15/17 [ History] Aspirin 81 mg PO DAILY 04/15/17 [History] Losartan Potassium 50 mg PO DAILY 04/15/17 [History] Potassium Chloride ER [K-Dur 20] 20 meq PO DAILY 04/15/17 [History] Simvastatin [Zocor] 40 mg PO HS 04/15/17 [History] amLODIPine [Norvasc] 10 mg PO DAILY 04/15/17 [History] Follow up Appointment(s)/Referral(s): Jacob Sanderson DO [Primary Care Provider] - 1-2 days (Office is currently closed. Please call to make appointment) Basilio Perales MD [STAFF PHYSICIAN] - 05/02/17 2:30 pm (Friday 's appointment is at 2pm) Patient Instructions/Handouts: Influenza (DC)
== END 2017-04-20 17:18 | disposition home or self-care (01) | DRG 193 ==
LOC: EC 09:55 → 6SEL 13:19 → 3SUR 04-18 15:53
PROVIDERS: ADMIT Internal Medicine; ATTEND Internal Medicine
DX: J10.00 Influenza due to other identified influenza virus with unspecified type of pneumonia (principal); J96.01 Acute respiratory failure with hypoxia; J44.1 Chronic obstructive pulmonary disease with (acute) exacerbation; F33.9 Major depressive disorder, recurrent, unspecified; I50.22 Chronic systolic (congestive) heart failure; I11.0 Hypertensive heart disease with heart failure; G25.81 Restless legs syndrome; E78.5 Hyperlipidemia, unspecified; I25.10 Atherosclerotic heart disease of native coronary artery without angina pectoris; E11.65 Type 2 diabetes mellitus with hyperglycemia; T38.0X5A Adverse effect of glucocorticoids and synthetic analogues, initial encounter; R00.0 Tachycardia, unspecified; E66.9 Obesity, unspecified; Z88.1 Allergy status to other antibiotic agents; Z91.048 Other nonmedicinal substance allergy status; Z79.82 Long term (current) use of aspirin; Z79.899 Other long term (current) drug therapy; Z95.1 Presence of aortocoronary bypass graft; Z79.4 Long term (current) use of insulin; Z83.3 Family history of diabetes mellitus; Z82.49 Family history of ischemic heart disease and other diseases of the circulatory system; Z82.3 Family history of stroke; Z87.891 Personal history of nicotine dependence; I25.2 Old myocardial infarction; Z87.01 Personal history of pneumonia (recurrent); Z87.440 Personal history of urinary (tract) infections; Z90.89 Acquired absence of other organs; Z90.49 Acquired absence of other specified parts of digestive tract; Z98.51 Tubal ligation status; Z89.411 Acquired absence of right great toe; Z86.73 Personal history of transient ischemic attack (TIA), and cerebral infarction without residual deficits
CPT/HCPCS: 36415; 71046; 80048; 80053; 82550; 82553; 83036; 83605; 83735; 83880; 84484; 85025; 85027; 85610; 85730; 87040; 87502; 93005; 94640; 94760; 96374; 99285

== ENCOUNTER → 2017-07-11 | Outpatient (CLI) | payer MEDICARE, OTHER ==
--- NOTE | 2017-07-11 14:59 | BD ---
EXAMINATION TYPE: MG DEXA axial skeleton. DATE OF EXAM: 07/11/2017 COMPARISON: NONE CLINICAL HISTORY: Height: 65 Weight: 207.3 FRAX RISK QUESTIONS: Alcohol (3 or more units per day): no Family History (Parent hip fracture): yes Glucocorticoids (More than 3mos): no (Ex: prednisone, prednisolone, methylprednisolone, dexamethasone, and hydrocortisone). History of Fracture in Adulthood: yes Secondary Osteoporosis: 1. Type 1 Diabetes: no 2. Hyperthyroidism: no 3. Menopause before 45: no 4. Malnutrition: no 5. Chronic liver disease: no Rheumatoid Arthritis: yes Current Tobacco Use: no RISK FACTORS HISTORY OF: Family History of Osteoporosis: unsure Active: yes Diet low in dairy products/other sources of calcium: yes Postmenopausal woman: age 49 Lost more than 2 inches in height since high school: no Frequent falls: no Adrenal Insufficiency: no MEDICATIONS: sugar meds, heart meds, blood thinners, high cholesterol meds Additional History: EXAM MEASUREMENTS: Bone mineral densitometry was performed using the [employer] System. Bone mineral density as measured about the Lumbar spine is: ----- L1-L4(G/cm2): 1.455 T Score Values are as follows: ----- L2: 3.2 ----- L3: 2.2 ----- L4: 1.5 ----- L1-L4: 2.3 Bone mineral density has: increased 11.4 % since study of: 01.12.2008 Bone mineral density about the R hip (g/cm2): 0.921 Bone mineral density about the L hip (g/cm2): 1.021 T Score values are as follows: -----R Neck: -0.8 -----L Neck: -0.1 -----R Total: 0.2 -----L Total: 0.9 Bone mineral density has: decreased -7.8 % since study of: 01.12.2008 IMPRESSION: no osteoporosis or osteopenia NOTE: T-SCORE=SD OF THE YOUNG ADULT MEAN.
--- NOTE | 2017-07-14 10:57 | MM ---
Reason for exam: screening (asymptomatic). Last mammogram was performed 5 years and 2 months ago. History: Patient is postmenopausal. Family history of breast cancer in grandmother. Physical Findings: A clinical breast exam by your physician is recommended on an annual basis and results should be correlated with mammographic findings. MG 3D Screening Mammo W/Cad Bilateral CC and MLO view(s) were taken. Prior study comparison: May 26, 2012, bilateral digital screening mammo w/CAD. January 12, 2008, bilateral digital screening mammogram. There are scattered fibroglandular densities. Benign calcifications bilaterally. No suspicious abnormality. No significant changes when compared with prior studies. ASSESSMENT: Benign, BI-RAD 2 RECOMMENDATION: Routine screening mammogram of both breasts in 1 year.
== END | disposition home or self-care (01) ==
LOC: RADMAMWWP 08:13
PROVIDERS: ATTEND Family Medicine
DX: Z12.31 Encounter for screening mammogram for malignant neoplasm of breast (principal); M19.90 Unspecified osteoarthritis, unspecified site
CPT/HCPCS: 77063; 77067; 77080

== ENCOUNTER → 2017-11-19 | Outpatient (CLI) | payer MEDICARE, OTHER ==
[2017-11-19 15:41] LABS: HCT 38.1 % (34.0-46.0); HGB 12.5 gm/dL (11.4-16.0); MCH 29.1 pg (25.0-35.0); MCHC 32.8 g/dL (31.0-37.0); MCV 88.8 fL (80.0-100.0); Mean Platelet Volume 6.6; Platelet Count 264 k/uL (150-450); RBC 4.29 m/uL (3.80-5.40); RDW 13.9 % (11.5-15.5); WBC 4.5 k/uL (3.8-10.6)
[2017-11-19 16:15] LABS: ALT 26 U/L (9-52); AST 20 U/L (14-36); Albumin 3.8 g/dL (3.5-5.0); Alkaline Phosphatase 89 U/L (38-126); Anion Gap 6 mmol/L; Blood Urea Nitrogen 20 mg/dL (7-17); Calcium 8.6 mg/dL (8.4-10.2); Carbon Dioxide 25 mmol/L (22-30); Chloride 107 mmol/L (98-107); Glucose 196 mg/dL (74-99); Potassium 4.6 mmol/L (3.5-5.1); Sodium 138 mmol/L (137-145); Total Bilirubin 0.4 mg/dL (0.2-1.3); Total Protein 6.7 g/dL (6.3-8.2)
[2017-11-19 16:24] LABS: T4, Free (Free Thyroxine) 1.18 ng/dL (0.78-2.19)
[2017-11-19 17:01] LABS: Erythrocyte Sedimentation Rate 49 mm/hr (0-20)
[2017-11-20 00:55] LABS: Hemoglobin A1C 8.1 % (4.0-6.0)
[2017-11-20 01:07] LABS: Anti-DNA, DS unit <1.0 IU/mL; DNA Double-Stranded NEGATIVE (NEGATIVE)
[2017-11-20 01:22] LABS: Rheumatoid Factor 245 IU/mL (0-15)
== END | disposition home or self-care (01) ==
LOC: LABWHC1 14:24
PROVIDERS: ATTEND Family Medicine
DX: E11.9 Type 2 diabetes mellitus without complications (principal); J44.0 Chronic obstructive pulmonary disease with (acute) lower respiratory infection; M19.91 Primary osteoarthritis, unspecified site; I10 Essential (primary) hypertension
CPT/HCPCS: 36415; 80053; 83036; 84439; 84443; 85027; 85652; 86038; 86225; 86431

== ENCOUNTER → 2018-09-01 | Outpatient (CLI) | payer MEDICARE, OTHER ==
--- NOTE | 2018-09-01 08:29 | CT ---
EXAMINATION TYPE: CT brain wo/w con DATE OF EXAM: 09/01/2018 COMPARISON: 01/20/2017 HISTORY: Dizziness, syncope CT DLP: 1920 mGycm Automated exposure control for dose reduction was used. CONTRAST: CT scan of the head is performed without and with IV Contrast, patient injected with 100 mL of Isovue 300. FINDINGS: Abnormal attenuation in the right occipital lobe stable from the previous CT scan. Ventricular system is compatible with the patient's age with no midline shift or mass effect. Intracranial atherosclero tic changes. Nonspecific white matter areas fluid density noted likely in the bases remote microvascu lar ischemia. Area of low attenuation in the basal ganglia on the right compatible with remote ischem ic change and lacunar infarction. Prominent cortical vein or tiny venous angioma in the right frontal lobe. Calvarium intact. IMPRESSION: 1. Area of low attenuation in the right occipital parietal junction with no abnormal enhancement. Thi s could be on the basis of previous ischemia or encephalomalacia. 2. Small venous angioma right frontal lobe incidentally noted. 3. Nonspecific white matter changes most commonly seen with remote microvascular ischemia. If symptom s persist consider MRI.
--- NOTE | 2018-09-01 08:57 | US ---
EXAMINATION TYPE: US carotid duplex BILAT DATE OF EXAM: 09/01/2018 COMPARISON: Carotid ultrasound of 2015 CLINICAL HISTORY: R42 dizziness, syncope. EXAM MEASUREMENTS: RIGHT: Peak Systolic Velocity (PSV) cm/sec ----- Right CCA: 60.7 ----- Right ICA: 137.9 ----- Right ECA: 200.7 ICA/CCA ratio: 2.3 RIGHT: End Diastole cm/sec ----- Right CCA: 15.7 ----- Right ICA: 39.3 ----- Right ECA: 25.3 LEFT: Peak Systolic Velocity (PSV) cm/sec ----- Left CCA: 53.9 ----- Left ICA: 124.8 ----- Left ECA: 152.5 ICA/CCA ratio: 2.3 LEFT: End Diastole cm/sec ----- Left CCA: 14.1 ----- Left ICA: 28.9 ----- Left ECA: 11.8 VERTEBRALS (direction of flow): Right Vertebral: Antegrade Left Vertebral: Antegrade Rhythm: Normal Moderate atherosclerotic changes with mild elevations in velocities in the right ICA, ECA and left EC A. IMPRESSION: Interval worsening of atherosclerosis in comparison to the prior exam of 2015 as there is new 50-69% stenosis of both internal and external carotid arteries and plaquing throughout the carotid arteries. CTA neck could more accurately assess the degree of stenosis. Criteria for Assigning % of Stenosis / Diameter reduction (Estimation based on the indirect measurements of the internal carotid artery velocities (ICA PSV). 1. Normal (no stenosis)=ICA PSV < 125 cm/s: ratio < 2.0: ICA EDV<40 cm/s. 2. Less than 50% stenosis=ICA PSV < 125 cm/s: ratio < 2.0: ICA EDV<40 cm/s. 3. 50 to 69% stenosis=ICA PSV of 125 to 230 cm/s: ration 2.0 ? 4.0: ICA EDV 40-100 cm/s. 4. Greater than 70% stenosis to near occlusion= ICA PSV > 230 cm/s: ratio > 4.0: ICA EDV > 100 cm/s. 5. Near occlusion= ICA PSV velocities may be low or undetectable: variable ratio and ICA EDV. 6. Total occlusion=unable to detect flow.
== END ==
LOC: RADCTMAIN 07:18
PROVIDERS: ATTEND Family Medicine
DX: I65.23 Occlusion and stenosis of bilateral carotid arteries (principal); R90.89 Other abnormal findings on diagnostic imaging of central nervous system
CPT/HCPCS: 93880; 70470; Q9967

== ENCOUNTER → 2018-09-15 | Outpatient (CLI) | payer MEDICARE, OTHER ==
--- NOTE | 2018-09-17 11:01 | ECHOF ---
Referral Reason: MEASUREMENTS -------- HEIGHT: 165.1 cm WEIGHT: 87.1 kg BP: 125/65 RVIDd: 2.8 cm (< 3.3) IVSd: 1.1 cm (0.6 - 1.1) LVIDd: 5.1 cm (3.9 - 5.3) LVPWd: 1.2 cm (0.6 - 1.1) IVSs: 1.5 cm LVIDs: 4.2 cm LVPWs: 1.9 cm LA Diam: 3.5 cm (2.7 - 3.8) LAESV Index (A-L): 29.91 ml/m Ao Diam: 2.9 cm (2.0 - 3.7) MV EXCURSION: 13.015 mm (> 18.000) MV EF SLOPE: 43 mm/s (70 - 150) EPSS: 0.7 cm MV E Paresh: 0.91 m/s MV DecT: 306 ms MV A Paresh: 1.29 m/s MV E/A Ratio: 0.71 RAP: 5.00 mmHg RVSP: 29.15 mmHg FINDINGS -------- Sinus rhythm. This was a technically adequate study. The left ventricular size is normal. There is borderline concentric left ventricular hypertrophy. Overall left ventricular systolic function is low-normal with, an EF between 50 - 55 %. The right ventricle is normal in size. LA is midly dilated 29-33ml/m2. The right atrium is normal in size. Interatrial and interventricular septum intact. There is mild aortic valve sclerosis. The mitral valve leaflets are mildly thickened. Mild mitral annular calcification present. There is trace mitral regurgitation. Mild tricuspid regurgitation present. Right ventricular systolic pressure is normal at < 35 mmHg. Trace/mild (physiologic) pulmonic regurgitation. The aortic root size is normal. Normal inferior vena cava with normal inspiratory collapse consistent with estimated right atrial pre ssure of 5 mmHg. There is no pericardial effusion. CONCLUSIONS -------- 1. Sinus rhythm. 2. This was a technically adequate study. 3. The left ventricular size is normal. 4. There is borderline concentric left ventricular hypertrophy. 5. Overall left ventricular systolic function is low-normal with, an EF between 50 - 55 %. 6. The right ventricle is normal in size. 7. LA is midly dilated 29-33ml/m2. 8. The right atrium is normal in size. 9. Interatrial and interventricular septum intact. 10. There is mild aortic valve sclerosis. 11. The mitral valve leaflets are mildly thickened. 12. Mild mitral annular calcification present. 13. There is trace mitral regurgitation. 14. Mild tricuspid regurgitation present. 15. Right ventricular systolic pressure is normal at < 35 mmHg. 16. Trace/mild (physiologic) pulmonic regurgitation. 17. The aortic root size is normal. 18. Normal inferior vena cava with normal inspiratory collapse consistent with estimated right atrial pressure of 5 mmHg. 19. There is no pericardial effusion. LAND INSPECTOR: Susana Ortiz RDCS
== END | disposition home or self-care (01) ==
LOC: RADECHMAIN 16:53
PROVIDERS: ATTEND Family Medicine
DX: I08.2 Rheumatic disorders of both aortic and tricuspid valves (principal)
CPT/HCPCS: 93306

== ENCOUNTER → 2018-10-20 | Outpatient (CLI) | payer MEDICARE, OTHER ==
[2018-10-20 08:27] LABS: African American GFR (CKD) >90 (>60 ml/min/1.73 sqM); Blood Urea Nitrogen 18 mg/dL (7-17)
--- NOTE | 2018-10-20 09:43 | CT ---
EXAMINATION TYPE: CT brain wo con DATE OF EXAM: 10/20/2018 COMPARISON: 09/01/2018 HISTORY: 68-year-old female headache, balance issues, blurred vision TECHNIQUE: Examination was done in axial plane without intravenous contrast. Coronal and sagittal r econstructions performed. CT DLP: 931.5 mGycm Automated exposure control for dose reduction was used. FINDINGS: There is no evidence of acute intracranial hemorrhage, acute ischemic changes, mass, mass-effect, or extra-axial fluid collection. There is no effacement of cerebral sulci or basal subarachnoid cister ns. There is no hydrocephalus. There is no midline shift. Cleaya-white matter distinction is preserv ed. Stable hypodensity involving the posterior parietal lobe. Old lacunar infarct versus prominent periva scular space right basal ganglia. Subinsular white matter hypodensity on both sides. Abdomen scattere d calcifications in the carotid siphons. Paranasal sinuses and mastoid air cells well pneumatized. Orbits and globes are intact. IMPRESSION: Stable hypodensity posterior right parietal lobe at the parieto-occipital junction suggesting area of prior infarct/encephalomalacia. No acute intracranial abnormality seen. Mild patchy changes of chron ic small vessel ischemic disease with old lacunar infarct right basal ganglia.
--- NOTE | 2018-10-20 10:43 | CT ---
EXAMINATION TYPE: CT angio neck DATE OF EXAM: 10/20/2018 COMPARISON: Correlation brain same day HISTORY: 68-year-old female headache, balance issues, blurred vision TECHNIQUE: Contiguous axial scanning of the neck performed with IV Contrast, patient injected with 50 mL of Isovue 370. Coronal/sagittal MIP reconstructions performed. CT DLP: 323.2 mGycm Automated exposure control for dose reduction was used. FINDINGS: Emphysematous change visualized upper lungs. Mild to moderate carotid plaque and calcifications withi n the aortic arch. Median sternotomy wires are present. Conventional arch vessel branching anatomy. Heterogeneously enhancing nodule measuring 1.9 cm left lobe of the thyroid gland. Moderate atherosclerotic narrowing at the origin of the left vertebral artery. Moderate to severe atherosclerotic narrowing at the origin of the right vertebral artery. Otherwise, both vertebral arteries are patent throughout the course and codominant. Scattered mild atherosclerotic plaque within the right common carotid artery. Severe atherosclerotic change at the carotid bifurcation with severe, 90% stenosis of the right carot id bulb. Short retropharyngeal course of the right ICA. Atherosclerotic calcifications within the car otid siphon. Mild atherosclerotic narrowing at the origin of the left common carotid artery. Severe atherosclerotic change at the left carotid bifurcation with severe, 80% stenosis of the left c arotid bulb. Short retropharyngeal course of the left ICA. Atherosclerotic calcifications in the richard tid siphons. The carotid bifurcations occur approximately 3.0 to 3.5 cm below the angle of the mandible. Severe atherosclerotic narrowing at the origin of the bilateral external carotid arteries. IMPRESSION: 1. BILATERAL SEVERE PROXIMAL ICA STENOSES, RIGHT GREATER THAN LEFT. 2. SEVERE ATHEROSCLEROTIC NARROWING AT THE ORIGIN OF THE BILATERAL EXTERNAL CAROTID ARTERIES WELL. 3. MODERATE ATHEROSCLEROTIC NARROWING ORIGIN OF THE LEFT VERTEBRAL ARTERY AND POSSIBLE MODERATE TO SE ROLF ATHEROSCLEROTIC NARROWING AT THE ORIGIN OF THE RIGHT VERTEBRAL ARTERY. 4. HETEROGENEOUS ENHANCING 1.9 CM NODULE IN THE LEFT THYROID GLAND. DEDICATED THYROID ULTRASOUND COUL D FURTHER EVALUATE.
== END | disposition home or self-care (01) ==
LOC: RADCTMAIN 07:49
PROVIDERS: ATTEND Surgery
DX: I65.23 Occlusion and stenosis of bilateral carotid arteries (principal); I67.2 Cerebral atherosclerosis; E04.1 Nontoxic single thyroid nodule; I67.82 Cerebral ischemia; Z86.73 Personal history of transient ischemic attack (TIA), and cerebral infarction without residual deficits
CPT/HCPCS: 82565; 84520; 70450; 70498; 36415; Q9967

== ENCOUNTER 2018-10-30 11:51 | Emergency (ER) | payer MEDICARE, OTHER ==
[2018-10-30 12:04] VITALS: TEMP 98.3
--- NOTE | 2018-10-30 13:13 | ED ---
Neuro HPI - General Chief Complaint: Neuro Symptoms/Deficit Stated Complaint: Unbalanced, Poss stroke last night Time Seen by Provider: 10/30/18 12:32 Source: patient, RN notes reviewed Mode of arrival: ambulatory Limitations: no limitations - History of Present Illness Is the patient presenting with stroke symptoms?: Yes Initial Comments: This is a 67-year-old female presents with complaints of strokelike symptoms which started 3 weeks ago. She states she has sudden onset of left upper extremity weakness and some tingling down her right arm. Since that time she has had a workup outpatient which included carotid duplex scan which showed significant carotid artery disease and also had a CAT scan. She was sent here by her neurologist for further evaluation she states she's had no new symptoms since that time she has also had complaints of dizziness when she tries to walk and cloudy vision is fuzzy on the left eye. No progression of her symptoms she actually states she had gotten somewhat better since initial episode 3 weeks ago. No palpitations no chest pain no other modifying factors - Related Data Home Medications: Home Medications Medication Instructions Recorded Confirmed Citalopram Hydrobromide [CeleXA] 40 mg PO DAILY 12/21/13 10/30/18 INSULIN LISPRO (HumaLOG) [HumaLOG] 6 units SQ AC-BRKFST 04/04/15 10/30/18 INSULIN LISPRO (HumaLOG) [HumaLOG] 8 units SQ AC-LUNCH 04/04/15 10/30/18 INSULIN LISPRO (HumaLOG) [HumaLOG] 10 units SQ AC-SUPPER 04/04/15 10/30/18 Metoprolol Succinate [Toprol XL] 50 mg PO DAILY 05/02/15 10/30/18 Nitroglycerin Sl Tabs [Nitrostat] 0.4 mg SUBLINGUAL Q5M PRN 05/02/15 10/30/18 Albuterol Nebulized [Ventolin 2.5 mg INHALATION RT-Q4H PRN 04/15/17 10/30/18 Nebulized] Aspirin 81 mg PO DAILY 04/15/17 10/30/18 Losartan Potassium 50 mg PO DAILY 04/15/17 10/30/18 Potassium Chloride ER [K-Dur 20] 20 meq PO DAILY 04/15/17 10/30/18 Simvastatin [Zocor] 40 mg PO HS 04/15/17 10/30/18 amLODIPine [Norvasc] 10 mg PO DAILY 04/15/17 10/30/18 Folic Acid 0.8 mg PO DAILY 10/30/18 10/30/18 Insulin Degludec/Liraglutide 12 unit SQ HS 10/30/18 10/30/18 [Xultophy 100 Unit-3.6MG/ml Pen] Methotrexate Sodium [Methotrexate] 25 mg PO MO 10/30/18 10/30/18 Allergies/Adverse Reactions: Allergies Allergy/AdvReac Type Severity Reaction Status Date / Time nickel Allergy Rash/Hives Verified 10/30/18 13:45 Review of Systems ROS Statement: Those systems with pertinent positive or pertinent negative responses have been documented in the HPI. ROS Other: All systems not noted in ROS Statement are negative. General Exam - General Exam Comments Initial Comments: This a well-developed well-nourished awake alert oriented x 3 female Limitations: no limitations General appearance: alert, in no apparent distress Head exam: Present: atraumatic, normocephalic, normal inspection Eye exam: Present: normal appearance, PERRL, EOMI. Absent: scleral icterus, conjunctival injection, periorbital swelling ENT exam: Present: normal exam, mucous membranes moist Neck exam: Present: normal inspection, full ROM, other (No overt stridor JVD or bruits). Absent: tenderness, meningismus, lymphadenopathy Respiratory exam: Present: normal lung sounds bilaterally. Absent: respiratory distress, wheezes, rales, rhonchi, stridor Cardiovascular Exam: Present: regular rate, normal rhythm, normal heart sounds. Absent: systolic murmur, diastolic murmur, rubs, gallop, clicks GI/Abdominal exam: Present: soft, normal bowel sounds. Absent: distended, tenderness, guarding, rebound, rigid Extremities exam: Present: normal inspection, full ROM, normal capillary refill. 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 Absent: rash Stroke MDM - Lab Data Result diagrams: 10/30/18 12:55 10/30/18 12:55 Lab Results 10/30/18 10/30/18 10/30/18 Range/Units 12:55 12:55 12:55 WBC 6.2 (3.8-10.6) k/uL RBC 4.18 (3.80-5.40) m/uL Hgb 12.7 (11.4-16.0) gm/dL Hct 38.2 (34.0-46.0) % MCV 91.3 (80.0-100.0) fL MCH 30.4 (25.0-35.0) pg MCHC 33.4 (31.0-37.0) g/dL RDW 13.8 (11.5-15.5) % Plt Count 246 (150-450) k/uL Neutrophils % 60 % Lymphocytes % 33 % Monocytes % 3 % Eosinophils % 3 % Basophils % 1 % Neutrophils # 3.7 (1.3-7.7) k/uL Lymphocytes # 2.0 (1.0-4.8) k/uL Monocytes # 0.2 (0-1.0) k/uL Eosinophils # 0.2 (0-0.7) k/uL Basophils # 0.0 (0-0.2) k/uL PT 9.4 (9.0-12.0) sec INR 0.9 (<1.2) APTT 22.2 (22.0-30.0) sec Sodium 140 (137-145) mmol/L Potassium 4.2 (3.5-5.1) mmol/L Chloride 103 (98-107) mmol/L Carbon Dioxide 26 (22-30) mmol/L Anion Gap 11 mmol/L BUN 16 (7-17) mg/dL Creatinine 0.55 (0.52-1.04) mg/dL Est GFR (CKD-EPI)AfAm >90 (>60 ml/min/1.73 sqM) Est GFR (CKD-EPI)NonAf >90 (>60 ml/min/1.73 sqM) Glucose 152 H (74-99) mg/dL Calcium 9.2 (8.4-10.2) mg/dL Total Bilirubin 0.5 (0.2-1.3) mg/dL AST 47 H (14-36) U/L ALT 49 (9-52) U/L Alkaline Phosphatase 96 (38-126) U/L Creatine Kinase 89 (30-135) U/L Troponin I (0.000-0.034) ng/mL Total Protein 7.2 (6.3-8.2) g/dL Albumin 4.2 (3.5-5.0) g/dL Urine Color Urine Appearance (Clear) Urine pH (5.0-8.0) Ur Specific [place] (1.001-1.035) Urine Protein (Negative) Urine Glucose (UA) (Negative) Urine Ketones (Negative) Urine Blood (Negative) Urine Nitrite (Negative) Urine Bilirubin (Negative) Urine Urobilinogen (<2.0) mg/dL Ur Leukocyte Esterase (Negative) 10/30/18 10/30/18 Range/Units 12:55 14:15 WBC (3.8-10.6) k/uL RBC (3.80-5.40) m/uL Hgb (11.4-16.0) gm/dL Hct (34.0-46.0) % MCV (80.0-100.0) fL MCH (25.0-35.0) pg MCHC (31.0-37.0) g/dL RDW (11.5-15.5) % Plt Count (150-450) k/uL Neutrophils % % Lymphocytes % % Monocytes % % Eosinophils % % Basophils % % Neutrophils # (1.3-7.7) k/uL Lymphocytes # (1.0-4.8) k/uL Monocytes # (0-1.0) k/uL Eosinophils # (0-0.7) k/uL Basophils # (0-0.2) k/uL PT (9.0-12.0) sec INR (<1.2) APTT (22.0-30.0) sec Sodium (137-145) mmol/L Potassium (3.5-5.1) mmol/L Chloride (98-107) mmol/L Carbon Dioxide (22-30) mmol/L Anion Gap mmol/L BUN (7-17) mg/dL Creatinine (0.52-1.04) mg/dL Est GFR (CKD-EPI)AfAm (>60 ml/min/1.73 sqM) Est GFR (CKD-EPI)NonAf (>60 ml/min/1.73 sqM) Glucose (74-99) mg/dL Calcium (8.4-10.2) mg/dL Total Bilirubin (0.2-1.3) mg/dL AST (14-36) U/L ALT (9-52) U/L Alkaline Phosphatase (38-126) U/L Creatine Kinase (30-135) U/L Troponin I <0.012 (0.000-0.034) ng/mL Total Protein (6.3-8.2) g/dL Albumin (3.5-5.0) g/dL Urine Color Light Yellow Urine Appearance Clear (Clear) Urine pH 5.5 (5.0-8.0) Ur Specific [place] 1.004 (1.001-1.035) Urine Protein Negative (Negative) Urine Glucose (UA) Negative (Negative) Urine Ketones Negative (Negative) Urine Blood Negative (Negative) Urine Nitrite Negative (Negative) Urine Bilirubin Negative (Negative) Urine Urobilinogen <2.0 (<2.0) mg/dL Ur Leukocyte Esterase Negative (Negative) - NIH Stroke Scale 1a. Level of Consciousness: (0) alert 1b. LOC Questions: (0) answers correctly 1c. LOC Commands: (0) performs tasks correctly 2. Best Gaze: (0) normal 3. Visual: (0) no visual loss 4. Facial Palsy: (0) normal symmetrical movement 5a. Motor Arm Left: (1) drift 5b. Motor Arm Right: (0) no drift 6a. Motor Leg Left: (0) no drift 6b. Motor Leg Right: (0) no drift 7. Limb Ataxia: (1) present 1 limb 8. Sensory: (0) normal 9. Best Language: (0) no aphasia 10. Dysarthria: (0) normal 11. Extinction/Inattention: (0) no abnormality - Medical Decision Making Due to the patient's presentation and apparent worsening symptoms though nothing appears be acute there does appear to be eminent CVA in his patient. After discussion with numerous physicians [facility] the patient will be admitted to Dr. Henderson's service. The patient and her family has agreed to the transfer. Medical necessity is due to an impending CVA - EKG Data -: EKG Interpreted by Nv EKG shows normal: sinus rhythm (Sinus rhythm a 76. Interval 142 QRS duration 94 QT since QTC 410/461 st-t wave changes) Past Medical History Past Medical History: Asthma, COPD, CVA/TIA, Diabetes Mellitus, Hyperlipidemia, Hypertension, Pneumonia, Rheumatoid Arthritis (RA) Additional Past Medical History / Comment(s): ARTHRITIS, STROKE 2013. UTI-,RT GREAT TOE WOUND. Last Myocardial Infarction Date:: 2014 History of Any Multi-Drug Resistant Organisms: None Reported Past Surgical History: Adenoidectomy, Appendectomy, Tonsillectomy, Tubal Ligation Additional Past Surgical History / Comment(s): Open heart on April 13 2015 Past Anesthesia/Blood Transfusion Reactions: Previous Problems w/ Anesthesia Additional Past Anesthesia/Blood Transfusion Reaction / Comment(s): diff breathing Past Psychological History: No Psychological Hx Reported Smoking Status: Former smoker Past Alcohol Use History: None Reported Past Drug Use History: None Reported - Past Family History Father Family Medical History: Coronary Artery Disease (CAD), CVA/TIA, Diabetes Mellitus Mother Additional Family Medical History / Comment(s): "spot on the lung" Course Vital Signs 10/30/18 12:00 Temperature 98.3 F Pulse Rate 77 Respiratory 18 Rate Blood Pressure 137/71 O2 Sat by Pulse 95 Oximetry - Reevaluation(s) Reevaluation #1: 10/30/18 15:30 I did have discussions with multiple physicians including Dr. Ermelinda Subramanian, Dr. Langston and Dr. Gutierrez at [facility]. Additionally with Dr. Rooney. Due to no neuro coverage this weekend patient be transferred to [facility]. The patient's symptoms are progressing from the original stroke 3 weeks ago. At this time does not appear to be an acute stroke however. Critical Care Time Critical Care Time: Yes Critical Care Time: 37 minutes of critical care time which includes initial presentation with history physical labs x-rays discussion with numerous physicians as noted in the chart discuss with the patient family regarding findings include the transfer physician this includes review of old charting documentation the above. Disposition Clinical Impression: Weakness of left upper extremity, CVA (cerebral vascular accident), Carotid artery disease, Insufficiency of basilar, carotid, and vertebral arteries Disposition: OTHER INSTITUTION NOT DEFINED Condition: Fair Referrals: Jacob Sanderson DO [Primary Care Provider] - 1-2 days - Out of Hospital Transfer - Req. Specs Out of Hospital Transfer - Requested Specifics: Other Emergency Center
[2018-10-30 13:33] LABS: Basophils % (A) 1 %; Eosinophils # (A) 0.2 k/uL (0-0.7); Eosinophils % (A) 3 %; HCT 38.2 % (34.0-46.0); HGB 12.7 gm/dL (11.4-16.0); Lymphocytes % (A) 33 %; MCH 30.4 pg (25.0-35.0); MCHC 33.4 g/dL (31.0-37.0); MCV 91.3 fL (80.0-100.0); Mean Platelet Volume 6.7; Monocytes # (A) 0.2 k/uL (0-1.0); Monocytes % (A) 3 %; Neutrophils # (A) 3.7 k/uL (1.3-7.7); Neutrophils % (A) 60 %; Platelet Count 246 k/uL (150-450); RBC 4.18 m/uL (3.80-5.40); RDW 13.8 % (11.5-15.5); WBC 6.2 k/uL (3.8-10.6)
[2018-10-30 13:39] LABS: INR 0.9 (<1.2); Partial Thromboplastin Time 22.2 sec (22.0-30.0); Prothrombin Time 9.4 sec (9.0-12.0)
[2018-10-30 13:44] LABS: ALT 49 U/L (9-52); AST 47 U/L (14-36); African American GFR (CKD) >90 (>60 ml/min/1.73 sqM); Albumin 4.2 g/dL (3.5-5.0); Alkaline Phosphatase 96 U/L (38-126); Anion Gap 11 mmol/L; Blood Urea Nitrogen 16 mg/dL (7-17); Calcium 9.2 mg/dL (8.4-10.2); Carbon Dioxide 26 mmol/L (22-30); Chloride 103 mmol/L (98-107); Creatine Kinase 89 U/L (30-135); Glucose 152 mg/dL (74-99); Potassium 4.2 mmol/L (3.5-5.1); Sodium 140 mmol/L (137-145); Total Bilirubin 0.5 mg/dL (0.2-1.3); Total Protein 7.2 g/dL (6.3-8.2)
--- NOTE | 2018-10-30 13:54 | XR ---
EXAMINATION TYPE: XR chest 2V DATE OF EXAM: 10/30/2018 COMPARISON: 04/15/2017 HISTORY: Shortness of breath TECHNIQUE: Frontal and lateral views of the chest are obtained. FINDINGS: Scattered senescent parenchymal changes noted. Hyperinflation compatible with COPD. No evidence for infiltrate. No evidence for atelectasis. Heart size is stable. Mediastinal structures are stable and grossly unremarkable. No evidence for hilar prominence. Degenerative changes dorsal spine. IMPRESSION: 1. No evidence for acute pulmonary disease.
[2018-10-30 15:00] LABS: Appearance,Urine Clear (Clear); Bilirubin,Urine Negative (Negative); Blood,Urine Negative (Negative); Color,Urine Light Yellow; Glucose,Urine (UA) Negative (Negative); Ketones,Urine Negative (Negative); Leukocyte Esterase,Urine Negative (Negative); Nitrite,Urine Negative (Negative); PH, Urine 5.5 (5.0-8.0); Protein,Urine Negative (Negative); Specific Gravity,Urine 1.004 (1.001-1.035); Urobilinogen,Urine <2.0 mg/dL (<2.0)
[2018-10-30 16:33] VITALS: BP 161/76; PULSE 74; RESP 13
== END 2018-10-30 17:09 | disposition other institution (70) ==
LOC: EC 11:51
DX: I63.9 Cerebral infarction, unspecified (principal); R29.702 NIHSS score 2; G45.1 Carotid artery syndrome (hemispheric); G45.0 Vertebro-basilar artery syndrome; J44.9 Chronic obstructive pulmonary disease, unspecified; E11.9 Type 2 diabetes mellitus without complications; E78.5 Hyperlipidemia, unspecified; I10 Essential (primary) hypertension; Z79.82 Long term (current) use of aspirin; Z79.4 Long term (current) use of insulin; Z79.51 Long term (current) use of inhaled steroids; Z79.899 Other long term (current) drug therapy; Z91.048 Other nonmedicinal substance allergy status; Z87.891 Personal history of nicotine dependence; Z82.3 Family history of stroke
CPT/HCPCS: 36415; 71046; 80053; 81003; 82550; 84484; 85025; 85610; 85730; 93005; 99291

== ENCOUNTER 2019-03-01 14:25 | Emergency (ER) | payer MEDICARE, OTHER ==
[2019-03-01] MEDS ORDERED: SODIUM CHLORIDE 0.9% 1,000 ML IV STA (15:10)
--- NOTE | 2019-03-01 15:37 | ED ---
Weakness HPI - General Chief complaint: Weakness Stated complaint: Unsteady, Shaking Time Seen by Provider: 03/01/19 14:51 Source: patient Mode of arrival: ambulatory Limitations: no limitations - History of Present Illness Initial comments: Patient is a 69-year-old female, with past medical history of CVA/TIAs, diabetes, hypertension, RA, COPD, presenting to the emergency Department with complaints of weakness and unsteadiness for the past 1-2 weeks. Patient states she was at her rheumatoid doctor today who sent her to the ER because of her symptoms. Patient states she is also having memory difficulties. Patient's daughter is here right now and states that she had a hard time remembering her 's birthday yesterday. Patient was also recently taken off methotrexate secondary to elevated liver enzymes last week after being on a high dose for several years. Patient denies having pain anywhere at this time. Patient states she feels shaky, weak and feels unsteady when she stands up to walk. Patient denies recent fever, chills, nausea, vomiting, belly pain, headache, blurry vision, chest pain, shortness of breath. Patient has no recent medication changes. Patient has no other complaints at this time. Upon arrival to the ER, vital signs are stable. - Related Data Home Medications Medication Instructions Recorded Confirmed Citalopram Hydrobromide [CeleXA] 40 mg PO DAILY 12/21/13 10/30/18 INSULIN LISPRO (HumaLOG) [HumaLOG] 6 units SQ AC-BRKFST 04/04/15 10/30/18 INSULIN LISPRO (HumaLOG) [HumaLOG] 8 units SQ AC-LUNCH 04/04/15 10/30/18 INSULIN LISPRO (HumaLOG) [HumaLOG] 10 units SQ AC-SUPPER 04/04/15 10/30/18 Metoprolol Succinate [Toprol XL] 50 mg PO DAILY 05/02/15 10/30/18 Nitroglycerin Sl Tabs [Nitrostat] 0.4 mg SUBLINGUAL Q5M PRN 05/02/15 10/30/18 Albuterol Nebulized [Ventolin 2.5 mg INHALATION RT-Q4H PRN 04/15/17 10/30/18 Nebulized] Aspirin 81 mg PO DAILY 04/15/17 10/30/18 Losartan Potassium 50 mg PO DAILY 04/15/17 10/30/18 Potassium Chloride ER [K-Dur 20] 20 meq PO DAILY 04/15/17 10/30/18 Simvastatin [Zocor] 40 mg PO HS 04/15/17 10/30/18 amLODIPine [Norvasc] 10 mg PO DAILY 04/15/17 10/30/18 Folic Acid 0.8 mg PO DAILY 10/30/18 10/30/18 Insulin Degludec/Liraglutide 12 unit SQ HS 10/30/18 10/30/18 [Xultophy 100 Unit-3.6MG/ml Pen] Methotrexate Sodium [Methotrexate] 25 mg PO MO 10/30/18 10/30/18 Allergies Allergy/AdvReac Type Severity Reaction Status Date / Time nickel Allergy Rash/Hives Verified 03/01/19 14:29 Review of Systems ROS Statement: Those systems with pertinent positive or pertinent negative responses have been documented in the HPI. ROS Other: All systems not noted in ROS Statement are negative. Past Medical History Past Medical History: Asthma, COPD, CVA/TIA, Diabetes Mellitus, Hyperlipidemia, Hypertension, Pneumonia, Rheumatoid Arthritis (RA) Additional Past Medical History / Comment(s): ARTHRITIS, STROKE 2013. UTI-,RT GREAT TOE WOUND. Last Myocardial Infarction Date:: 2014 History of Any Multi-Drug Resistant Organisms: None Reported Past Surgical History: Adenoidectomy, Appendectomy, Tonsillectomy, Tubal Ligation Additional Past Surgical History / Comment(s): Open heart on April 13 2015 Past Anesthesia/Blood Transfusion Reactions: Previous Problems w/ Anesthesia Additional Past Anesthesia/Blood Transfusion Reaction / Comment(s): diff breathing Past Psychological History: No Psychological Hx Reported Smoking Status: Former smoker Past Alcohol Use History: None Reported Past Drug Use History: None Reported - Past Family History Father Family Medical History: Coronary Artery Disease (CAD), CVA/TIA, Diabetes Annamarie itus Mother Additional Family Medical History / Comment(s): "spot on the lung" General Exam - General Exam Comments Initial Comments: GENERAL: Well-appearing, well-nourished and in no acute distress. HEAD: Atraumatic, normocephalic. EYES: Pupils equal round and reactive to light, extraocular movements intact, sclera anicteric, conjunctiva are normal. ENT: TMs normal, nares patent, oropharynx clear without exudates. Moist mucous membranes. NECK: Normal range of motion, supple without lymphadenopathy or JVD. LUNGS: Breath sounds clear to auscultation bilaterally and equal. No wheezes rales or rhonchi. HEART: Regular rate and rhythm without murmurs, rubs or gallops. ABDOMEN: Soft, nontender, normoactive bowel sounds. No guarding, no rebound. No masses appreciated. EXTREMITIES: Normal range of motion, no pitting or edema. No clubbing or cyanosis. NEUROLOGICAL: Cranial nerves II through XII grossly intact. Normal speech, normal gait. Patient's strength is 4/5 bilaterally upper and lower extremities. Sensation is equal and bilateral. Patient has slight tremors of the bilateral hands. PSYCH: Normal mood, normal affect. SKIN: Warm, Dry, normal turgor, no rashes or lesions noted. Limitations: no limitations Course Vital Signs 03/01/19 03/01/19 14:29 18:30 Temperature 98.5 F 98.3 F Pulse Rate 86 82 Respiratory 16 18 Rate Blood Pressure 140/80 116/61 O2 Sat by Pulse 95 97 Oximetry EKG Findings - EKG Comments: EKG Findings:: Ventricular rate 89, DE interval 132, QTC 467. Normal sinus rhythm. Normal EKG. No acute ST segment changes. Medical Decision Making - Medical Decision Making Patient is a 69-year-old female presenting with weakness and unsteadiness for the past week. Vital signs are stable upon arrival. Patient's exam reveals no acute findings other than slight tremors of bilateral hands. No neurological deficits. Lab work shows no acute findings of infection. Patient's sodium was slightly low at 135 and potassium was slightly elevated at 5.5. Lactic acid was 2.1. Patient was given a liter bolus. Troponin was normal. UA shows no signs of infection. CT of the brain shows no acute intracranial process. Changes in the right occipital lobe is unchanged from previous exam. There is a redemonstration of diffuse age-related cerebral atrophy and chronic small vessel ischemic change. Chest x-ray shows no acute cardiopulmonary process. These findings were discussed with the patient and I suggested that her symptoms could be related to her coming off of her medication or possibly age-related changes in symptoms. Patient's vital signs remained stable during the stay. Patient is able to ambulate without difficulty. Patient is stable for discharge at this time. Patient is in agreement with this plan of care and will follow up with her roofing machine tender in the next 2-3 days. Parameters were discussed with the patient and she verbalized understanding. Case discussed with Dr. Paul who is in agreement with this plan of care. - Lab Data Result diagrams: 03/01/19 15:00 03/01/19 15:00 Lab Results 03/01/19 03/01/19 03/01/19 Range/Units 15:00 15:00 15:00 WBC 6.2 (3.8-10.6) k/uL RBC 4.16 (3.80-5.40) m/uL Hgb 13.7 (11.4-16.0) gm/dL Hct 39.4 (34.0-46.0) % MCV 94.6 (80.0-100.0) fL MCH 32.9 (25.0-35.0) pg MCHC 34.7 (31.0-37.0) g/dL RDW 14.4 (11.5-15.5) % Plt Count 296 (150-450) k/uL Neutrophils % 58 % Lymphocytes % 30 % Monocytes % 7 % Eosinophils % 2 % Basophils % 0 % Neutrophils # 3.6 (1.3-7.7) k/uL Lymphocytes # 1.9 (1.0-4.8) k/uL Monocytes # 0.4 (0-1.0) k/uL Eosinophils # 0.1 (0-0.7) k/uL Basophils # 0.0 (0-0.2) k/uL PT (9.0-12.0) sec INR (<1.2) APTT (22.0-30.0) sec Sodium 135 L (137-145) mmol/L Potassium 5.5 H (3.5-5.1) mmol/L Chloride 105 (98-107) mmol/L Carbon Dioxide 20 L (22-30) mmol/L Anion Gap 10 mmol/L BUN 18 H (7-17) mg/dL Creatinine 0.74 (0.52-1.04) mg/dL Est GFR (CKD-EPI)AfAm >90 (>60 ml/min/1.73 sqM) Est GFR (CKD-EPI)NonAf 83 (>60 ml/min/1.73 sqM) Glucose 193 H (74-99) mg/dL Lactic Ac Sepsis Rflx Plasma Lactic Acid Sandeep 2.1 H* (0.7-2.0) mmol/L Calcium 9.3 (8.4-10.2) mg/dL Magnesium 1.7 (1.6-2.3) mg/dL Total Bilirubin 0.4 (0.2-1.3) mg/dL AST 39 H (14-36) U/L ALT 75 H (9-52) U/L Alkaline Phosphatase 97 (38-126) U/L Troponin I (0.000-0.034) ng/mL Total Protein 6.9 (6.3-8.2) g/dL Albumin 4.0 (3.5-5.0) g/dL Urine Color Urine Appearance (Clear) Urine pH (5.0-8.0) Ur Specific Dewart (1.001-1.035) Urine Protein (Negative) Urine Glucose (UA) (Negative) Urine Ketones (Negative) Urine Blood (Negative) Urine Nitrite (Negative) Urine Bilirubin (Negative) Urine Urobilinogen (<2.0) mg/dL Ur Leukocyte Esterase (Negative) Urine RBC (0-5) /hpf Urine WBC (0-5) /hpf Ur Squamous Epith Cells (0-4) /hpf Calcium Oxalate Crystal (None) /hpf Urine Bacteria (None) /hpf Hyaline Casts (0-2) /lpf Urine Mucus (None) /hpf 03/01/19 03/01/19 03/01/19 Range/Units 15:00 15:00 15:59 WBC (3.8-10.6) k/uL RBC (3.80-5.40) m/uL Hgb (11.4-16.0) gm/dL Hct (34.0-46.0) % MCV (80.0-100.0) fL MCH (25.0-35.0) pg MCHC (31.0-37.0) g/dL RDW (11.5-15.5) % Plt Count (150-450) k/uL Neutrophils % % Lymphocytes % % Monocytes % % Eosinophils % % Basophils % % Neutrophils # (1.3-7.7) k/uL Lymphocytes # (1.0-4.8) k/uL Monocytes # (0-1.0) k/uL Eosinophils # (0-0.7) k/uL Basophils # (0-0.2) k/uL PT 9.6 (9.0-12.0) sec INR 0.9 (<1.2) APTT 23.0 (22.0-30.0) sec Sodium (137-145) mmol/L Potassium (3.5-5.1) mmol/L Chloride (98-107) mmol/L Carbon Dioxide (22-30) mmol/L Anion Gap mmol/L BUN (7-17) mg/dL Creatinine (0.52-1.04) mg/dL Est GFR (CKD-EPI)AfAm (>60 ml/min/1.73 sqM) Est GFR (CKD-EPI)NonAf (>60 ml/min/1.73 sqM) Glucose (74-99) mg/dL Lactic Ac Sepsis Rflx Y Plasma Lactic Acid Sandeep (0.7-2.0) mmol/L Calcium (8.4-10.2) mg/dL Magnesium (1.6-2.3) mg/dL Total Bilirubin (0.2-1.3) mg/dL AST (14-36) U/L ALT (9-52) U/L Alkaline Phosphatase (38-126) U/L Troponin I <0.012 (0.000-0.034) ng/mL Total Protein (6.3-8.2) g/dL Albumin (3.5-5.0) g/dL Urine Color Urine Appearance (Clear) Urine pH (5.0-8.0) Ur Specific Dewart (1.001-1.035) Urine Protein (Negative) Urine Glucose (UA) (Negative) Urine Ketones (Negative) Urine Blood (Negative) Urine Nitrite (Negative) Urine Bilirubin (Negative) Urine Urobilinogen (<2.0) mg/dL Ur Leukocyte Esterase (Negative) Urine RBC (0-5) /hpf Urine WBC (0-5) /hpf Ur Squamous Epith Cells (0-4) /hpf Calcium Oxalate Crystal (None) /hpf Urine Bacteria (None) /hpf Hyaline Casts (0-2) /lpf Urine Mucus (None) /hpf 03/01/19 Range/Units 16:03 WBC (3.8-10.6) k/uL RBC (3.80-5.40) m/uL Hgb (11.4-16.0) gm/dL Hct (34.0-46.0) % MCV (80.0-100.0) fL MCH (25.0-35.0) pg MCHC (31.0-37.0) g/dL RDW (11.5-15.5) % Plt Count (150-450) k/uL Neutrophils % % Lymphocytes % % Monocytes % % Eosinophils % % Basophils % % Neutrophils # (1.3-7.7) k/uL Lymphocytes # (1.0-4.8) k/uL Monocytes # (0-1.0) k/uL Eosinophils # (0-0.7) k/uL Basophils # (0-0.2) k/uL PT (9.0-12.0) sec INR (<1.2) APTT (22.0-30.0) sec Sodium (137-145) mmol/L Potassium (3.5-5.1) mmol/L Chloride (98-107) mmol/L Carbon Dioxide (22-30) mmol/L Anion Gap mmol/L BUN (7-17) mg/dL Creatinine (0.52-1.04) mg/dL Est GFR (CKD-EPI)AfAm (>60 ml/min/1.73 sqM) Est GFR (CKD-EPI)NonAf (>60 ml/min/1.73 sqM) Glucose (74-99) mg/dL Lactic Ac Sepsis Rflx Plasma Lactic Acid Sandeep (0.7-2.0) mmol/L Calcium (8.4-10.2) mg/dL Magnesium (1.6-2.3) mg/dL Total Bilirubin (0.2-1.3) mg/dL AST (14-36) U/L ALT (9-52) U/L Alkaline Phosphatase (38-126) U/L Troponin I (0.000-0.034) ng/mL Total Protein (6.3-8.2) g/dL Albumin (3.5-5.0) g/dL Urine Color Yellow Urine Appearance Clear (Clear) Urine pH 5.5 (5.0-8.0) Ur Specific Dewart 1.010 (1.001-1.035) Urine Protein 1+ H (Negative) Urine Glucose (UA) Trace H (Negative) Urine Ketones Negative (Negative) Urine Blood Negative (Negative) Urine Nitrite Negative (Negative) Urine Bilirubin Negative (Negative) Urine Urobilinogen <2.0 (<2.0) mg/dL Ur Leukocyte Esterase Negative (Negative) Urine RBC 1 (0-5) /hpf Urine WBC 1 (0-5) /hpf Ur Squamous Epith Cells 4 (0-4) /hpf Calcium Oxalate Crystal Occasional H (None) /hpf Urine Bacteria Rare H (None) /hpf Hyaline Casts 22 H (0-2) /lpf Urine Mucus Rare H (None) /hpf Disposition Clinical Impression: Weakness Disposition: HOME SELF-CARE Condition: Stable Instructions (If sedation given, give patient instructions): Weakness (ED) Additional Instructions: Please return to the Emergency Department if symptoms worsen or any other concerns. Follow up with microsoft bi developer as discussed later this week. Continue to increase fluid intake. Normal diet. Is patient prescribed a controlled substance at d/c from ED?: No Referrals: Jacob Sanderson DO [Primary Care Provider] - 1-2 days
[2019-03-01 15:39] LABS: Basophils % (A) 0 %; Eosinophils # (A) 0.1 k/uL (0-0.7); Eosinophils % (A) 2 %; HCT 39.4 % (34.0-46.0); HGB 13.7 gm/dL (11.4-16.0); Lymphocytes # (A) 1.9 k/uL (1.0-4.8); Lymphocytes % (A) 30 %; MCH 32.9 pg (25.0-35.0); MCHC 34.7 g/dL (31.0-37.0); MCV 94.6 fL (80.0-100.0); Mean Platelet Volume 5.8; Monocytes # (A) 0.4 k/uL (0-1.0); Monocytes % (A) 7 %; Neutrophils # (A) 3.6 k/uL (1.3-7.7); Neutrophils % (A) 58 %; Platelet Count 296 k/uL (150-450); RBC 4.16 m/uL (3.80-5.40); RDW 14.4 % (11.5-15.5); WBC 6.2 k/uL (3.8-10.6)
[2019-03-01 15:52] LABS: ALT 75 U/L (9-52); AST 39 U/L (14-36); African American GFR (CKD) >90 (>60 ml/min/1.73 sqM); Alkaline Phosphatase 97 U/L (38-126); Anion Gap 10 mmol/L; Blood Urea Nitrogen 18 mg/dL (7-17); Calcium 9.3 mg/dL (8.4-10.2); Carbon Dioxide 20 mmol/L (22-30); Chloride 105 mmol/L (98-107); Glucose 193 mg/dL (74-99); Magnesium 1.7 mg/dL (1.6-2.3); Non-African American GFR(CKD) 83 (>60 ml/min/1.73 sqM); Potassium 5.5 mmol/L (3.5-5.1); Sodium 135 mmol/L (137-145); Total Bilirubin 0.4 mg/dL (0.2-1.3); Total Protein 6.9 g/dL (6.3-8.2)
[2019-03-01 15:59] LABS: INR 0.9 (<1.2); Prothrombin Time 9.6 sec (9.0-12.0)
--- NOTE | 2019-03-01 16:12 | CT ---
EXAMINATION TYPE: CT brain wo con DATE OF EXAM: 03/01/2019 COMPARISON: 10/20/2018 HISTORY: headache/unsteady gate/dizziness CT DLP: 996 mGycm Automated exposure control for dose reduction was used. TECHNIQUE: CT scan of the head is performed without contrast. FINDINGS: There is no acute intracranial hemorrhage or midline shift identified. There is diffuse v entricular and sulcal prominence consistent with diffuse age-related cerebral atrophy. 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 Cephalization of the right occipital lobe is also unchanged from the prior. There is low-attenuation in the periventricular white matter consi stent with chronic small vessel ischemic change. The globes are intact and the visualized sinuses ar e clear. IMPRESSION: 1. Encephalomalacia in the right occipital lobe is unchanged as is an old lacunar injury of the right lentiform nucleus. No acute intracranial process. 2. Redemonstration of diffuse age-related cerebral atrophy and chronic small vessel ischemic change.
[2019-03-01 16:39] LABS: Appearance,Urine Clear (Clear); Bacteria,Urine Rare /hpf; Bilirubin,Urine Negative (Negative); Blood,Urine Negative (Negative); Calcium Oxalate Crystals,Urine Occasional /hpf; Color,Urine Yellow; Glucose,Urine (UA) Trace (Negative); Hyaline Casts,Urine 22 /lpf (0-2); Ketones,Urine Negative (Negative); Leukocyte Esterase,Urine Negative (Negative); Mucus,Urine Rare /hpf; Nitrite,Urine Negative (Negative); PH, Urine 5.5 (5.0-8.0); Protein,Urine 1+ (Negative); RBC,Urine 1 /hpf (0-5); Squamous Epithelial Cell,Urine 4 /hpf (0-4); Urobilinogen,Urine <2.0 mg/dL (<2.0)
--- NOTE | 2019-03-01 16:48 | XR ---
EXAMINATION TYPE: XR chest 2V DATE OF EXAM: 03/01/2019 COMPARISON: Prior chest x-ray 10/30/2018 HISTORY: Weakness TECHNIQUE: Frontal and lateral views of the chest are obtained. FINDINGS: Patient is post median sternotomy. Prominent lung volumes with flattening the hemidiaphragm s may be indicative of underlying COPD. Aorta is dense. There is no focal air space opacity, pleural effusion, or pneumothorax seen. The cardiac silhouette size is within normal limits. The osseous s tructures are intact. IMPRESSION: No acute cardiopulmonary process.
[2019-03-01 18:40] VITALS: BP 116/61; PULSE 82; RESP 18; TEMP 98.3
== END 2019-03-01 18:30 | disposition home or self-care (01) ==
LOC: EC 14:25
DX: I69.365 Other paralytic syndrome following cerebral infarction, bilateral (principal); G82.50 Quadriplegia, unspecified; E87.1 Hypo-osmolality and hyponatremia; E87.5 Hyperkalemia; G31.9 Degenerative disease of nervous system, unspecified; I67.82 Cerebral ischemia; R25.1 Tremor, unspecified; J44.9 Chronic obstructive pulmonary disease, unspecified; E11.9 Type 2 diabetes mellitus without complications; E78.5 Hyperlipidemia, unspecified; I10 Essential (primary) hypertension; M06.9 Rheumatoid arthritis, unspecified; M19.90 Unspecified osteoarthritis, unspecified site; Z87.891 Personal history of nicotine dependence; Z91.048 Other nonmedicinal substance allergy status; Z79.4 Long term (current) use of insulin; Z79.82 Long term (current) use of aspirin; Z79.899 Other long term (current) drug therapy
CPT/HCPCS: 36415; 70450; 71046; 80053; 81001; 83605; 83735; 84484; 85025; 85610; 85730; 93005; 96360; 96361; 99285

== ENCOUNTER → 2019-04-05 | Outpatient (CLI) | payer MEDICARE, OTHER ==
--- NOTE | 2019-04-06 06:11 | MR ---
EXAMINATION TYPE: MR lumbar spine wo con DATE OF EXAM: 04/05/2019 COMPARISON: NONE HISTORY: LBP, left side TECHNIQUE: Multiplanar, multisequence imaging of the lumbar spine is performed without IV contrast. FINDINGS: Exam is suboptimal as is degraded by motion artifact. There is slight dextroconvex scolioti c curvature centered at L3 level. Alignment is straightened on sagittal images. Sagittal images of th e lumbar spine show vertebral body heights to appear satisfactory. There is multilevel disc desiccati on. There is mild to moderate disc space narrowing L3-L4 level The conus medullaris is normal in pos ition and signal ending superior L1 level. Mild to moderate multilevel anterior spurring with scatter ed hemangiomas largest L4 level sagittal image 7 and heterogeneous Modic type II endplate change invo lving the right inferior L2 vertebra. Axial images at T12-L1 level show mild/moderate facet degenerative changes bilaterally. Axial images at L1-L2 level show mild broad disc bulge and facet degenerative changes. Axial images at L2-L3 level show moderate broad disc bulge with [id number] facet degenerative c hanges and ligamenta flava hypertrophy. There is some effacement of the anterior and the posterior la teral thecal sac. There is [id number] bilateral anterior inferior neural foraminal narrowing. Axial images at the L3-L4 level show moderate to advanced broad disc bulge with ykdj-bz-[id number] face t degenerative changes and left lateral disc protrusion component. There is effacement of the anterio r and posterior lateral thecal sac. There is moderate to severe left and mild to moderate right-sided neural foraminal narrowing. Encroachment on left L3 extraforaminal level is thought present. Axial images at the L4-L5 level shows broad disc bulge with central disc protrusion component minimal ly effacing anterior thecal sac. There is [id number] facet degenerative changes bilaterally. Th ere is mild bilateral neural foraminal narrowing noted. Axial images at the L5-S1 level show moderate to advanced facet degenerative changes bilaterally. The re is central disc protrusion but spinal canal is preserved. Bilateral neural foramina are patent. No suspicious incidental retroperitoneal findings. IMPRESSION: Multilevel degenerative changes most prominent at L3-L4 level as detailed above
== END | disposition home or self-care (01) ==
LOC: RADMRIMAIN 18:34
PROVIDERS: ATTEND Psychiatry & Neurology Neurology
DX: M47.816 Spondylosis without myelopathy or radiculopathy, lumbar region (principal)
CPT/HCPCS: 72148

== ENCOUNTER → 2019-04-08 | Outpatient (CLI) | payer MEDICARE, OTHER ==
--- NOTE | 2019-04-09 00:19 | MR ---
EXAMINATION TYPE: MR brain wo con DATE OF EXAM: 04/08/2019 COMPARISON: None HISTORY: Memory loss There is mild cerebral cortical atrophy. There is no mass effect nor midline shift. There is no sign of intracranial hemorrhage. There is no evidence of acute cortical infarct. Diffusion images are unre markable. The brainstem is intact. The T2 and FLAIR images show patchy increased signal in the right occipital lobe forte and white matte r consistent with old infarct. There is smaller areas of low signal on the FLAIR images in the latera l aspect of the right occipital lobe that could relate to old hemorrhagic component and hemosiderin. There is multiple scattered white matter high signal foci on the T2 and FLAIR images measuring up to 6 mm at the forte-white matter junction of both cerebral hemispheres. Total number is approximately 25 . IMPRESSION: Cerebral atrophy. Old right occipital lobe cortical infarct. Scattered numerous white matter small hi gh signal foci most likely related to chronic small vessel ischemia.
== END | disposition home or self-care (01) ==
LOC: RADMRIMAIN 16:03
PROVIDERS: ATTEND Family Medicine
DX: G31.89 Other specified degenerative diseases of nervous system (principal); Z86.69 Personal history of other diseases of the nervous system and sense organs
CPT/HCPCS: 70551

== ENCOUNTER → 2019-05-07 | Outpatient (CLI) | payer MEDICARE ==
[2019-05-07 14:09] LABS: Basophils # (A) 0.2 k/uL (0-0.2); Basophils % (A) 2 %; Eosinophils # (A) 0.1 k/uL (0-0.7); Eosinophils % (A) 2 %; HCT 43.7 % (34.0-46.0); HGB 14.3 gm/dL (11.4-16.0); Lymphocytes # (A) 2.9 k/uL (1.0-4.8); Lymphocytes % (A) 41 %; MCH 31.7 pg (25.0-35.0); MCHC 32.6 g/dL (31.0-37.0); MCV 97.1 fL (80.0-100.0); Mean Platelet Volume 7.9; Monocytes # (A) 0.4 k/uL (0-1.0); Monocytes % (A) 5 %; Neutrophils # (A) 3.5 k/uL (1.3-7.7); Neutrophils % (A) 48 %; Platelet Count 241 k/uL (150-450); RDW 13.1 % (11.5-15.5); WBC 7.2 k/uL (3.8-10.6)
[2019-05-07 14:22] LABS: African American GFR (CKD) >90 (>60 ml/min/1.73 sqM); Anion Gap 9 mmol/L; Blood Urea Nitrogen 20 mg/dL (7-17); Carbon Dioxide 27 mmol/L (22-30); Chloride 106 mmol/L (98-107); Non-African American GFR(CKD) >90 (>60 ml/min/1.73 sqM); Potassium 4.8 mmol/L (3.5-5.1); Sodium 142 mmol/L (137-145)
== END | disposition home or self-care (01) ==
LOC: LABPAT 12:10
PROVIDERS: ATTEND Surgery
DX: Z01.812 Encounter for preprocedural laboratory examination (principal); I65.22 Occlusion and stenosis of left carotid artery
CPT/HCPCS: 36415; 80051; 82565; 84520; 85025

== ENCOUNTER 2019-05-12 07:30 | Inpatient (IN) | payer MEDICARE ==
[2019-05-07 13:36] VITALS: BMI 31.6
[2019-05-13] MEDS ORDERED: ONDANSETRON 4 MG/2 ML VIAL IVP ONE (06:07)
[2019-05-13] MEDS ORDERED: NITROGLYCERIN-D5W PMX 50 MG in DEXTROSE/WATER 1 250ML.BAG IV SCH (06:07)
[2019-05-13] MEDS ORDERED: DEXAMETHASONE SOD PHOSPHATE 10 MG/ML 1 ML VIAL IV ONE (06:07)
[2019-05-13] MEDS ORDERED: HYDROmorphone 0.5 MG/0.5 ML SYRINGE IVP PRN (06:07)
[2019-05-13] MEDS ORDERED: LIDOCAINE 1% 20 ML VIAL (10MG/ML) FOR IV START INTRADERMA PRN (06:07)
[2019-05-13] MEDS: LACTATED RINGERS 1,000 ML IV SCH (10:35)
[2019-05-13 10:40] LABS: Glucose,Whole Blood 180 mg/dL (75-99)
[2019-05-13] MEDS ORDERED: LIDOCAINE 1% INJ 10MG/ML (20 ML MDV) SQ ONE (12:09)
[2019-05-13] MEDS ORDERED: GELATIN SPONGE,ABSORB (LARGE) 1 EACH SPONGE TOPICAL ONE (12:09)
[2019-05-13] MEDS ORDERED: THROMBIN (BOVINE) 5,000 UNIT VIAL TOPICAL ONE ×2 (12:10)
[2019-05-13] MEDS ORDERED: PROPOFOL 10 MG/ML 20 ML VIAL IV ONE (12:11)
[2019-05-13] MEDS ORDERED: NEOSTIGMINE 1 MG/ML 10 ML VIAL ONE (12:11)
[2019-05-13] MEDS ORDERED: MIDAZOLAM 2 MG/2 ML VIAL ONE (12:11)
[2019-05-13] MEDS ORDERED: ROCURONIUM BROMIDE 10 MG/ML 10 ML VIAL IV ONE (12:11)
[2019-05-13] MEDS ORDERED: fentaNYL (PF) 50 MCG/ML 2 ML AMP ONE (12:11)
[2019-05-13] MEDS ORDERED: SUCCINYLCHOLINE CHLORIDE 100 MG/5 ML SYR IV ONE (12:11)
[2019-05-13] MEDS ORDERED: GLYCOPYRROLATE 0.2 MG/ML 2 ML VIAL ONE (12:11)
[2019-05-13] MEDS ORDERED: LIDOCAINE 1% INJ 10MG/ML (20 ML MDV) ONE (12:11)
[2019-05-13 15:02] LABS: Glucose,Whole Blood 244 mg/dL (75-99)
[2019-05-13] MEDS ORDERED: ALBUTEROL NEBULIZED 2.5 MG/3 ML INHALATION PRN (15:03)
--- NOTE | 2019-05-13 15:03 | P.OP ---
Date of Procedure: 05/13/19 Preoperative Diagnosis: Hemodynamically severe left internal carotid artery stenosis. Postoperative Diagnosis: Same. Procedure(s) Performed: Left carotid endarterectomy with patch angioplasty utilizing bovine pericardial tissue. Anesthesia: JENN Surgeon: Raul Kruger Client Experience Administrator #1: Susie Langston Estimated Blood Loss (ml): 50 IV fluids (ml): 600 Urine output (ml): 70 Pathology: other (Carotid plaque) Condition: stable Disposition: ICU Indications for Procedure: Terence is a 6-year-old female who in routine medical care was found be suffering from hemodynamically severe carotid stenosis. During workup for this she became symptomatic from her right carotid stenosis and underwent TCAR repair of the right internal carotid artery. She recovered well from this and is now offered left carotid endarterectomy as the degree of stenosis on both carotid duplex imaging and CTA was greater than 80%. The procedure, risk and benefits were discussed with the patient. All questions were answered to patient's satisfaction. Patient wished to proceed with surgery. It was felt that she was a better carotid candidate and a stent candidate. Operative Findings: Hemodynamically severe calcified carotid plaque Description of Procedure: Patient was brought the upper and placed in the supine position Mr. general endotracheal anesthesia delivered by the department anesthesiology. Langston catheter is placed to gravity drainage. Patient received 2 g of Ancef intravenously in the perioperative phase for prophylactic antibiotic purposes. Patient's left lateral neck supraclavicular and anterior chest wall areas were sterilely prepped and draped in usual manner. Skin incision was made overlying the anterior border sternocleidomastoid muscle and carried down through the subcu change tissues. Platysma muscle was divided. Hemostasis was achieved using cautery. The incision was then continued along the anterior border sternocleidomastoid muscle which was retracted posteriorly. The facial vein was identified dissected free of investing tissues ligated with silk suture and divided. Dissection was carried down to the carotid sheath. The common carotid artery was identified dissected free of investing tissues and encircled Vesseloops. The dissection was then carried along the common carotid to the bulb level. The superior thyroid and external carotid arterial segments were dissected free and encircled with Vesseloops. The vagus nerve had been identified and left undisturbed. The dissection was then carried along the internal carotid artery to a level past the plaque burden. The hypoglossal nerve was identified and left undisturbed. The internal carotid artery was then encircled Vesseloops. The patient was systemically heparinized with 7500 units of heparin. ACT was drawn and found to be 274, approximate twice baseline ACT. Vesseloops surrounding the internal carotid common carotid superior thyroid and external carotid artery were drawn closed and arteriotomy was made in the common carotid and extended with Pott Curtis scissors through the bulb level into the internal carotid segment. Stump pressures of the ICA were obtained and patient was found to have a mean of 50 mmHg, and as such no shunting was felt necessary. Endarterectomy was then begun at the common level extended cephalad to the the level of the external carotid where a retraction endarterectomy was performed. Once completed the dissection of the endarterectomy was carried into the internal carotid artery and the distal end feathered off without need for tacking. The plaque was sent to pathology. The remaining luminal surface was inspected for any loose or free-floating material. Where identified this was removed. Patch arteriotomy closure was performed with bovine pericardial patch and 6-0 Prolene suture placed in running fashion. Just prior to completion of the anastomotic line backbleeding was allowed to occur through the internal carotid artery and no thrombus was retrieved. The internal was occluded at its origin and the common and external carotid arteries were flushed and no thrombus was retrieved. The anastomotic line was then completed. Once again the internal carotid artery was opened/back bled and then occluded at its origin. Vessel loops surrounding the superior thyroid, external carotid and then the common ca rotid arteries were released thus flushing any potential debris into the external system. Flow was then restored into the internal system. Excellent pulse was identified in the internal carotid artery distal to the endarterectomy plane. One point of bleeding was identified along the anastomotic line and this was controlled with a single suture of 6-0 Prolene. The patient received 25 mg of protamine to help reverse the heparin effect. Topical thrombin and Gelfoam were placed about the anastomotic line to help assure hemostasis. The wound was irrigated with antibiotic containing solution. Hemostasis was judged be adequate. Deep tissues closed with 3-0 Vicryl placed in running fashion. Dermis was closed with 4-0 Monocryl placed in running intradermal fashion. Skin glue and appropriate dressings were applied. Patient tolerated the procedure well awoke without apparent complication was transferred to recovery area in satisfactory and stable condition. There appeared to be no neurologic deficits at time of transfer.
[2019-05-13] MEDS ORDERED: INSULIN ASPART (NovoLOG) 100 UNIT/ML VIAL SQ ONE (15:11)
[2019-05-13 15:58] LABS: Glucose,Whole Blood 234 mg/dL (75-99)
[2019-05-13 16:03] VITALS: BP 111/54
--- NOTE | 2019-05-13 16:37 | P.CNPUL ---
History of Present Illness Consult date: 05/13/19 Chief complaint: Carotid artery stenosis History of present illness: 69-year-old female patient with past medical history of coronary artery disease, with previous history of coronary artery bypass grafting, COPD/chronic bronchial asthma, diabetes mellitus type 2, hypertension, hyperlipidemia, previous history of CVA, who presented to the hospital on 05/13/2019 for elective left carotid endarterectomy with patch angioplasty utilizing bovine pericardial tissue. Patient had previously undergone TCAR repair of the right internal carotid artery for symptomatic right carotid stenosis. The degree of stenosis on both carotid duplex imaging and CTA was greater than 80%. She tolerated the procedure well, without apparent complication, and she was transferred to the intensive care unit for close hemodynamic and neurologic monitoring following the procedure. Review of Systems All systems: negative Constitutional: Denies chills, Denies fever Eyes: denies blurred vision, denies pain Ears, nose, mouth and throat: Denies headache, Denies sore throat Cardiovascular: Denies chest pain, Denies shortness of breath Respiratory: Denies cough Gastrointestinal: Denies abdominal pain, Denies diarrhea, Denies nausea, Denies vomiting Genitourinary: Denies dysuria, Denies hematuria Musculoskeletal: Denies myalgias Integumentary: Denies pruritus, Denies rash Neurological: Denies numbness, Denies weakness Psychiatric: Denies anxiety, Denies depression Endocrine: Denies fatigue, Denies weight change Past Medical History Past Medical History: Asthma, COPD, CVA/TIA, Diabetes Mellitus, Hyperlipidemia, Hypertension, Myocardial Infarction ([place]), Pneumonia, Rheumatoid Arthritis (RA), Vascular Disorder Additional Past Medical History / Comment(s): STROKE . WOUND. Last Myocardial Infarction Date:: 03/28 History of Any Multi-Drug Resistant Organisms: None Reported Past Surgical History: Adenoidectomy, Appendectomy, Heart Catheterization, Tonsillectomy, Tubal Ligation Additional Past Surgical History / Comment(s): Open heart on April 13 2015, rt great toe amputated, rt carotid endarterectomy 10/30, stent rt leg Past Anesthesia/Blood Transfusion Reactions: Previous Problems w/ Anesthesia Additional Past Anesthesia/Blood Transfusion Reaction / Comment(s): diff breathing "shallow breather" Smoking Status: Former smoker - Past Family History Father Family Medical History: Coronary Artery Disease (CAD), CVA/TIA, Diabetes Mellitus Additional Family Medical History / Comment(s): Mother Additional Family Medical History / Comment(s): "spot on the lung" Medications and Allergies Home Medications Medication Instructions Recorded Confirmed Type Citalopram Hydrobromide [CeleXA] 40 mg PO DAILY 12/21/13 05/13/19 History INSULIN LISPRO (HumaLOG) [HumaLOG] 16 units SQ AC-BRKFST 04/04/15 05/13/19 History INSULIN LISPRO (HumaLOG) [HumaLOG] 20 units SQ AC-LUNCH 04/04/15 05/13/19 H istory INSULIN LISPRO (HumaLOG) [HumaLOG] 24 units SQ AC-SUPPER 04/04/15 05/13/19 History Metoprolol Succinate [Toprol XL] 50 mg PO DAILY 05/02/15 05/13/19 History Nitroglycerin Sl Tabs [Nitrostat] 0.4 mg SUBLINGUAL Q5M PRN 05/02/15 05/13/19 History Albuterol Nebulized [Ventolin 2.5 mg INHALATION RT-Q4H PRN 04/15/17 05/13/19 History Nebulized] Aspirin 81 mg PO DAILY 04/15/17 05/13/19 History Losartan Potassium 50 mg PO DAILY 04/15/17 05/13/19 History Simvastatin [Zocor] 40 mg PO HS 04/15/17 05/13/19 History amLODIPine [Norvasc] 10 mg PO DAILY 04/15/17 05/13/19 History Folic Acid 0.8 mg PO DAILY 10/30/18 05/13/19 History Insulin Degludec/Liraglutide 12 unit SQ HS 10/30/18 05/13/19 History [Xultophy 100 Unit-3.6MG/ml Pen] Abatacept [Orencia] 125 mg SQ WE 05/07/19 05/13/19 History Allergies Allergy/AdvReac Type Severity Reaction Status Date / Time nickel Allergy Rash/Hives Verified 05/13/19 10:16 Physical Exam Vitals: Vital Signs Temp Pulse Pulse Resp BP BP BP 05/13/19 16:00 97.6 F 62 12 111/54 05/13/19 15:32 61 16 103/56 05/13/19 15:15 70 16 103/53 05/13/19 15:00 65 16 114/58 05/13/19 14:49 97.7 F 69 16 118/61 05/13/19 10:27 96.9 F L 75 16 135/65 142/66 BP Pulse Ox 05/13/19 16:00 92 L 05/13/19 15:32 115/47 93 L 05/13/19 15:15 109/50 96 05/13/19 15:00 123/51 96 05/13/19 14:49 122/47 96 05/13/19 10:27 94 L Intake and Output 05/13/19 05/13/19 05/13/19 06:59 14:59 22:59 Intake Total 950 175 Output Total 120 0 Balance 830 175 Intake: IV 950 175 Lactated Ringers 1,000 ml 75 @ 20 mls/hr IV .Q24H COUNT INCLUDES THE [facility] Rx#:[id number] Output: Urine 70 0 Estimated Blood Loss 50 Other: Weight 90.8 kg ABP, PAP, CO, CI - Last 8 Hours Arterial Blood Pressure 119/43 GENERAL EXAM: Alert, very pleasant, 69-year-old white female, resting on 4 L of oxygen with a pulse ox of 92% comfortable in no apparent distress. HEAD: Normocephalic/atraumatic. EYES: Normal reaction of pupils, equal size. Conjunctiva pink, sclera white. NOSE: Clear with pink turbinates. THROAT: No erythema or exudates. NECK: No masses, no JVD, no thyroid enlargement, no adenopathy. Left neck incision is clean dry and intact, covered with a surgical dressing, soft, with no tracheal deviation CHEST: No chest wall deformity. Symmetrical expansion. LUNGS: Equal air entry with no crackles, wheeze, rhonchi or dullness. CVS: Regular rate and rhythm, normal S1 and S2, no gallops, no murmurs, no rubs ABDOMEN: Soft, nontender. No hepatosplenomegaly, normal bowel sounds, no guarding or rigidity. EXTREMITIES: No clubbing, no edema, no cyanosis, 2+ pulses and upper and lower extremities. MUSCULOSKELETAL: Muscle strength and tone normal. SPINE: No scoliosis or deformity SKIN: No rashes CENTRAL NERVOUS SYSTEM: Alert and oriented -3. No focal deficits, tone is normal in all 4 extremities. PSYCHIATRIC: Alert and oriented -3. Appropriate affect. Intact judgment and insight. Results - Laboratory Findings Abnormal lab findings: Abnormal Labs 05/13/19 05/13/19 05/13/19 10:32 15:00 15:51 POC Glucose (mg/dL) 180 H 244 H 234 H Assessment and Plan Plan: Assessment: #1. High grade left carotid stenosis, of greater than 80%, status post left carotid endarterectomy with patch angioplasty utilizing bovine pericardial tissue, with operative day 0 #2. Previous history of high-grade right carotid stenosis, status post TCAR repair of the right internal carotid artery, October 2018 #3. History of coronary artery stenosis, status post bypass grafting in April 2014 #4. COPD, oxygen dependent #5. Congestive heart failure with severely impaired left ventricular systolic function and estimated ejection fraction of 25-30% #6. Type 2 diabetes mellitus #7. Hypertension #8. Hyperlipidemia #9. Chronic depression #10. Osteoarthritis #11. Previous history of CVA/TIA in 2013 #12. Former smoker #13. Steroid-induced hyperglycemia Plan: Continue to closely monitor hemodynamic and neurological status in the intensive care units, patient is clinically stable, neurologically intact, hemodynamically stable, continue IV fluids, antibiotics, GI and DVT prophylaxis per vascular surgery, incentive spirometry, region home medications, blood pressure medications and nebulized treatments. CBC, BMP in the morning. Resume home dose insulin and sliding scale Humalog I performed a history & physical examination of the patient and discussed their management with my nurse practitioner, Debo Young. I reviewed the nurse practitioner's note and agree with the documented findings and plan of care. Lung sounds are positive for clear breath sounds throughout the lung briscoe. The findings and the impression was discussed with the patient. I attest to the documentation by the nurse practitioner. Time with Patient: Greater than 30
[2019-05-13] MEDS: ASPIRIN 81 MG PO SCH (16:38)
[2019-05-13] MEDS: METOPROLOL SUCCINATE (ER) 50 MG TAB.ER.24H PO SCH (16:38)
[2019-05-13] MEDS: amLODIPine 10 MG TAB PO SCH (16:38)
[2019-05-13] MEDS: HYDROcodone/APAP 5-325MG 1 EACH TAB PO PRN ×2 (16:46→21:15)
[2019-05-13 16:49] LABS: Glucose,Whole Blood 210 mg/dL (75-99)
[2019-05-13] MEDS: INSULIN ASPART (NovoLOG) 100 UNIT/ML VIAL SQ SCH ×2 (16:53→21:08)
[2019-05-13] MEDS ORDERED: INSULIN ASPART (NovoLOG) 100 UNIT/ML VIAL SQ SCH (17:30)
[2019-05-13 20:36] LABS: Glucose,Whole Blood 242 mg/dL (75-99)
[2019-05-13] MEDS ORDERED: LIRAGLUTIDE SQ SCH (21:00)
[2019-05-13] MEDS ORDERED: [UNRECOGNIZED DRUG - OTHER] SQ SCH (21:00)
[2019-05-13] MEDS ORDERED: ATORVASTATIN 20 MG TAB PO SCH (21:00)
[2019-05-13] MEDS ORDERED: INSULIN DEGLUDEC SQ SCH (21:00)
[2019-05-14 04:26] LABS: HCT 36.6 % (34.0-46.0); HGB 11.9 gm/dL (11.4-16.0); MCH 31.2 pg (25.0-35.0); MCHC 32.4 g/dL (31.0-37.0); MCV 96.3 fL (80.0-100.0); Mean Platelet Volume 7.3; Platelet Count 201 k/uL (150-450); WBC 13.6 k/uL (3.8-10.6)
[2019-05-14 04:38] LABS: African American GFR (CKD) >90 (>60 ml/min/1.73 sqM); Anion Gap 4 mmol/L; Blood Urea Nitrogen 23 mg/dL (7-17); Calcium 8.1 mg/dL (8.4-10.2); Carbon Dioxide 27 mmol/L (22-30); Chloride 105 mmol/L (98-107); Glucose 222 mg/dL (74-99); Non-African American GFR(CKD) 90 (>60 ml/min/1.73 sqM); Potassium 4.5 mmol/L (3.5-5.1); Sodium 136 mmol/L (137-145)
[2019-05-14 06:40] LABS: Glucose,Whole Blood 194 mg/dL (75-99)
[2019-05-14] MEDS: INSULIN ASPART (NovoLOG) 100 UNIT/ML VIAL SQ SCH (06:54)
[2019-05-14] MEDS ORDERED: INSULIN ASPART (NovoLOG) 100 UNIT/ML VIAL SQ SCH ×2 (07:30→12:30)
--- NOTE | 2019-05-14 07:56 | P.PN ---
Subjective Progress Note Date: 05/14/19 On 05/14/2019 Tracee is feeling great. She has no complaints , is ambulating. No motor weakness in the right on the left side. The surgical wound site is dry clean and intact. Her blood pressures under good control. No cardiac arrhythmias. No chest pain. No other significant events overnight. Outpatient medications have been ordered resume. Her blood sugars have been under adequate control for now Objective - Vital Signs Vital signs: Vital Signs Temp 98.2 F 05/14/19 00:00 Pulse 74 05/14/19 07:00 Resp 20 05/14/19 07:00 BP 111/54 05/13/19 16:00 Pulse Ox 91 L 05/14/19 07:00 Intake & Output 05/13/19 05/14/19 05/14/19 18:59 06:59 18:59 Intake Total 1415 240 20 Output Total 120 10 Balance 1295 230 20 Weight 90.8 kg 95.7 kg Intake: IV 1165 240 20 Lactated Ringers 1,000 ml 115 240 20 @ 20 mls/hr IV .Q24H [facility] Rx#:[id number] Oral 250 Output: Urine 70 10 Estimated Blood Loss 50 Other: Voiding Method Bedside Commode # Voids 1 ABP, PAP, CO, CI - Last Documented Arterial Blood Pressure 126/49 - Exam GENERAL EXAM: Alert, very pleasant, 69-year-old white female, resting on on room air oxygen and she is calm and comfortable comfortable in no apparent distress. HEAD: Normocephalic/atraumatic. EYES: Normal reaction of pupils, equal size. Conjunctiva pink, sclera white. NOSE: Clear with pink turbinates. THROAT: No erythema or exudates. NECK: No masses, no JVD, no thyroid enlargement, no adenopathy. Left neck incision is clean dry and intact, covered with a surgical dressing, soft, with no tracheal deviation CHEST: No chest wall deformity. Symmetrical expansion. LUNGS: Equal air entry with no crackles, wheeze, rhonchi or dullness. CVS: Regular rate and rhythm, normal S1 and S2, no gallops, no murmurs, no rubs ABDOMEN: Soft, nontender. No hepatosplenomegaly, normal bowel sounds, no guarding or rigidity. EXTREMITIES: No clubbing, no edema, no cyanosis, 2+ pulses and upper and lower extremities. MUSCULOSKELETAL: Muscle strength and tone normal. SPINE: No scoliosis or deformity SKIN: No rashes CENTRAL NERVOUS SYSTEM: Alert and oriented -3. No focal deficits, tone is normal in all 4 extremities. PSYCHIATRIC: Alert and oriented -3. Appropriate affect. Intact judgment and insight. - Labs CBC & Chem 7: 05/14/19 04:15 05/14/19 04:15 Labs: Abnormal Lab Results - Last 24 Hours (Table) 05/13/19 05/13/19 05/13/19 Range/Units 10:32 15:00 15:51 WBC (3.8-10.6) k/uL Sodium (137-145) mmol/L BUN (7-17) mg/dL Glucose (74-99) mg/dL POC Glucose (mg/dL) 180 H 244 H 234 H (75-99) mg/dL Calcium (8.4-10.2) mg/dL 05/13/19 05/13/19 05/14/19 Range/Units 16:48 20:35 04:15 WBC 13.6 H (3.8-10.6) k/uL Sodium (137-145) mmol/L BUN (7-17) mg/dL Glucose (74-99) mg/dL POC Glucose (mg/dL) 210 H 242 H (75-99) mg/dL Calcium (8.4-10.2) mg/dL 05/14/19 05/14/19 Range/Units 04:15 06:39 WBC (3.8-10.6) k/uL Sodium 136 L (137-145) mmol/L BUN 23 H (7-17) mg/dL Glucose 222 H (74-99) mg/dL POC Glucose (mg/dL) 194 H (75-99) mg/dL Calcium 8.1 L (8.4-10.2) mg/dL Assessment and Plan Plan: #1. High grade left carotid stenosis, of greater than 80%, status post left carotid endarterectomy with patch angioplasty utilizing bovine pericardial tissue, with operative day 1 #2. Previous history of high-grade right carotid stenosis, status post TCAR repair of the right internal carotid artery, October 2018 #3. History of coronary artery stenosis, status post bypass grafting in April 2014 #4. COPD, oxygen dependent #5. Congestive heart failure with severely impaired left ventricular systolic function and estimated ejection fraction of 25-30% which subsequently improved and based on the most recent echocardiogram her EF is essentially normalized. #6. Type 2 diabetes mellitus #7. Hypertension #8. Hyperlipidemia #9. Chronic depression #10. Osteoarthritis #11. Previous history of CVA/TIA in 2013 #12. Former smoker #13. Steroid-induced hyperglycemia, improved. The patient was given a dose of Decadron postop. Plan Doing well. No complaints. Surgery was done without any complications. S urgical wound site is clean. Hemodynamically stable. Neurologically intact. With for discharge with her outpatient medication. I'm going to remove the Artline catheter.
--- NOTE | 2019-05-14 08:21 | P.DS ---
Providers Date of admission: 05/13/19 09:56 Attending physician: Raul Kruger DO Consults: 05/13/19 15:06 Consult Physician Routine Consulting Provider: Tyler Baig Reason/Comments: medical management Do you want consulting provider notified?: Yes Primary care physician: [facility] Course: The patient is a pleasant 69-year-old female who was seen and evaluated this morning with Dr. Langston. The patient underwent a left carotid endarterectomy with patch angioplasty yesterday with Dr. Krugre for severe left internal carotid artery stenosis. She is doing well this morning no changes through the night. Pain is been well controlled, she has no focal deficits. She tolerated breakfast well this morning. She has been up to bathroom and voided. The dressing was clean dry and intact. Dr. Langston removed the dressing this morning, incision is well approximated, clean dry and intact. The patient is currently wearing 4 L of oxygen per nasal cannula, will decrease down to 2 L to see if patient tolerates. Goal is to keep oxygen level at 90% or greater on room air. If unable to will need home oxygen. General appearance: The patient is alert, oriented, in no acute distress. HET: Head is normocephalic and atraumatic. Pupils are equal and reactive. Facial symmetry. Neck: Supple without lymphadenopathy. Left side of neck with well approximated incision that is CDI. Heart: S1 S2. Regular rate and rhythm. Lungs: No crackles or wheezes are heard. Extremities: Normal skin color and turgor. No cyanosis, rash, ulceration, clubbing, or edema. Radial and pedal pulses are 2/4 bilaterally. Neurological: No focal deficits. Strength and sensation are grossly intact. Procedures: Left carotid endartectomy with patch angioplasty Patient Condition at Discharge: Good Plan - Discharge Summary New Discharge Prescriptions: New Clopidogrel [Plavix] 75 mg PO DAILY 30 Days #30 tab Continue Citalopram Hydrobromide [CeleXA] 40 mg PO DAILY INSULIN LISPRO (HumaLOG) [humaLOG] 24 units SQ AC-SUPPER INSULIN LISPRO (HumaLOG) [humaLOG] 20 units SQ AC-LUNCH INSULIN LISPRO (HumaLOG) [humaLOG] 16 units SQ AC-BRKFST Nitroglycerin Sl Tabs [Nitrostat] 0.4 mg SUBLINGUAL Q5M PRN PRN Reason: Chest Pain Metoprolol Succinate [Toprol XL] 50 mg PO DAILY Albuterol Nebulized [Ventolin Nebulized] 2.5 mg INHALATION RT-Q4H PRN PRN Reason: sob amLODIPine [Norvasc] 10 mg PO DAILY Simvastatin [Zocor] 40 mg PO HS Losartan Potassium 50 mg PO DAILY Aspirin 81 mg PO DAILY Folic Acid 0.8 mg PO DAILY Insulin Degludec/Liraglutide [Xultophy 100 Unit-3.6MG/ml Pen] 12 unit SQ HS Abatacept [Orencia] 125 mg SQ WE Discharge Medication List Citalopram Hydrobromide [CeleXA] 40 mg PO DAILY 12/21/13 [History] INSULIN LISPRO (HumaLOG) [humaLOG] 16 units SQ AC-BRKFST 04/04/15 [History] INSULIN LISPRO (HumaLOG) [humaLOG] 20 units SQ AC-LUNCH 04/04/15 [History] INSULIN LISPRO (HumaLOG) [humaLOG] 24 units SQ AC-SUPPER 04/04/15 [History] Metoprolol Succinate [Toprol XL] 50 mg PO DAILY 05/02/15 [History] Nitroglycerin Sl Tabs [Nitrostat] 0.4 mg SUBLINGUAL Q5M PRN 05/02/15 [History] Albuterol Nebulized [Ventolin Nebulized] 2.5 mg INHALATION RT-Q4H PRN 04/15/17 [History] Aspirin 81 mg PO DAILY 04/15/17 [History] Losartan Potassium 50 mg PO DAILY 04/15/17 [History] Simvastatin [Zocor] 40 mg PO HS 04/15/17 [History] amLODIPine [Norvasc] 10 mg PO DAILY 04/15/17 [History] Folic Acid 0.8 mg PO DAILY 10/30/18 [History] Insulin Degludec/Liraglutide [Xultophy 100 Unit-3.6MG/ml Pen] 12 unit SQ HS 10/30/18 [History] Abatacept [Orencia] 125 mg SQ WE 05/07/19 [History] Clopidogrel [Plavix] 75 mg PO DAILY 30 Days #30 tab 05/14/19 [Rx] Follow up Appointment(s)/Referral(s): Raul Kruger DO [Doctor of Osteopathic Medicine] - 1 Week Patient Instructions/Handouts: Carotid Endarterectomy (DC) Activity/Diet/Wound Care/Special Instructions: Resume normal activity. May shower, no tub baths. No swimming 1 week. Discharge Disposition: HOME SELF-CARE
[2019-05-14] MEDS: ASPIRIN 81 MG PO SCH (08:53)
[2019-05-14] MEDS: amLODIPine 10 MG TAB PO SCH (08:53)
[2019-05-14] MEDS: METOPROLOL SUCCINATE (ER) 50 MG TAB.ER.24H PO SCH (08:53)
[2019-05-14] MEDS: LACTATED RINGERS 1,000 ML IV SCH (08:56)
[2019-05-14] MEDS ORDERED: CITALOPRAM HYDROBROMIDE 20 MG TAB PO SCH (09:00)
[2019-05-14] MEDS ORDERED: LOSARTAN 50 MG TAB PO SCH (09:00)
[2019-05-14] MEDS ORDERED: FOLIC ACID 1 MG TAB PO SCH (09:00)
[2019-05-14] MEDS ORDERED: CLOPIDOGREL 75 MG TAB PO SCH (09:00)
--- NOTE | 2019-05-14 09:23 | CDI ---
Documentation Clarification Form Date: 05/14/2019 CDS: Yary Pillai RN, CCDS Admit Date: 05/13/2019 0956 Patient Name: Tracee Price ATTENTION: The Clinical Documentation Specialists (CDI) and [facility] Coding Staff appreciate your assistance in clarifying documentation. Please respond to the clarification below the line at the bottom and electronically sign. The CDI & [facility] Coding staff will review the response and follow-up if needed. Please note: Queries are made part of the Legal Health Record. If you have any questions, please contact the author of this message via ITS. Dr. Langston The patient has a history of O2 dependent COPD that requires further specificity! History/Risk Factors: High grade left carotid stenosis, CAD with hx of CABG, COPD o2 dependent, Tobacco use: former smoker Home oxygen: 2l NC Clinical Indicators: 05/13 1027 Vital signs: Temp 96.9, hr 75, rr 16, b/p 135/65, spo2 94% ra 05/14 Pulse oximetry: Patient is consistently 90-92% on 4L NC 05/14 Lung/Breathing assessment: :"LUNGS: Equal air entry with no crackles, wheeze, rhonchi or dullness." Treatment: Breathing Tx: Ventolin INH Q 4 hrs. PRN SOB- none has been administered at this time Continuous Pulse ox per ICU protocol O2: 4L Nasal cannula In your professional opinion, can you please clarify if these findings signify one of the following conditions? Chronic Respiratory Failure Other Diagnosis, please specify Unable to determine Specificity: If known, further specify (if known): With hypercapnia? (pCO2 >50 and pH <7.35) With hypoxia? (pO2 <60 mm Hg or SpO2 <91% on room air) (Last Query Form Revision: December 2018) Chronic respiratory failure MTDD
[2019-05-14 09:45] VITALS: PULSE 69; RESP 13; TEMP 98
[2019-05-19] MEDS ORDERED: ABATACEPT 125 MG SQ SCH (15:03)
== END 2019-05-14 10:43 | disposition home or self-care (01) | DRG 38 ==
LOC: 2ORMAIN 05-13 09:56 → 2SICU 05-13 15:25
PROVIDERS: ADMIT Surgery; ATTEND Surgery
PROC: 03UK0KZ Supplement Right Internal Carotid Artery with Nonautologous Tissue Substitute, Open Approach (ICD-10-PCS; principal; 2019-05-13 11:30)
PROC: 03CK0ZZ Extirpation of Matter from Right Internal Carotid Artery, Open Approach (ICD-10-PCS; principal; 2019-05-13 11:30)
DX: I65.22 Occlusion and stenosis of left carotid artery (principal); I50.22 Chronic systolic (congestive) heart failure; J96.10 Chronic respiratory failure, unspecified whether with hypoxia or hypercapnia; I11.0 Hypertensive heart disease with heart failure; E11.51 Type 2 diabetes mellitus with diabetic peripheral angiopathy without gangrene; E11.65 Type 2 diabetes mellitus with hyperglycemia; E78.5 Hyperlipidemia, unspecified; F32.9 Major depressive disorder, single episode, unspecified; I25.10 Atherosclerotic heart disease of native coronary artery without angina pectoris; I25.2 Old myocardial infarction; J44.9 Chronic obstructive pulmonary disease, unspecified; M06.9 Rheumatoid arthritis, unspecified; M19.90 Unspecified osteoarthritis, unspecified site; T38.0X5A Adverse effect of glucocorticoids and synthetic analogues, initial encounter; Z79.4 Long term (current) use of insulin; Z79.82 Long term (current) use of aspirin; Z79.899 Other long term (current) drug therapy; Z86.73 Personal history of transient ischemic attack (TIA), and cerebral infarction without residual deficits; Z87.891 Personal history of nicotine dependence; Z95.1 Presence of aortocoronary bypass graft; Z99.81 Dependence on supplemental oxygen; Z89.411 Acquired absence of right great toe; Z98.51 Tubal ligation status; Z90.49 Acquired absence of other specified parts of digestive tract; Z87.01 Personal history of pneumonia (recurrent); Z82.49 Family history of ischemic heart disease and other diseases of the circulatory system; Z83.3 Family history of diabetes mellitus; Z82.3 Family history of stroke
CPT/HCPCS: 80048; 85027; 86850; 86900; 86901; 88304; 88311

== ENCOUNTER → 2020-02-09 | Outpatient (CLI) | payer MEDICARE, OTHER ==
--- NOTE | 2020-02-09 14:42 | XR ---
EXAMINATION TYPE: XR chest 2V DATE OF EXAM: 02/09/2020 CLINICAL HISTORY: R05, K21.0. Cough, gastroesophageal reflux with esophagitis. TECHNIQUE: Frontal and lateral view of the chest. COMPARISON: 12/23/2019 chest radiograph FINDINGS: Sternotomy wires. Flattening of the hemidiaphragms. The cardiomediastinal silhouette is wi thin normal limits for size. Pulmonary vasculature is normal. Redemonstrated biapical linear calcific ation. There is no focal air space opacity, pleural effusion, or pneumothorax seen. The osseous struc tures are intact. IMPRESSION: No acute cardiopulmonary process. Emphysematous change.
== END | disposition home or self-care (01) ==
LOC: RADXRMAIN 13:17
PROVIDERS: ATTEND Family Medicine
DX: J43.9 Emphysema, unspecified (principal)
CPT/HCPCS: 71046

== ENCOUNTER 2020-06-16 14:28 | Inpatient (IN) | payer MEDICARE, OTHER ==
--- NOTE | 2020-06-16 15:04 | ED ---
General Adult HPI - General Chief complaint: Skin/Abscess/Foreign Body Stated complaint: Left foot infection Time Seen by Provider: 06/16/20 14:37 Source: patient, RN notes reviewed Mode of arrival: wheelchair Limitations: no limitations - History of Present Illness Initial comments: Patient is a pleasant 70-year-old female presenting to the emergency department with concerns of left foot infection. Patient has had sores on her foot for the past month. Patient has been seen in the wound center with debridement done and does go their weekly. Last evaluation was around 4 days ago. Patient is having more discomfort. Patient now is having purulent discharge and erythema extending from the left great toe to the base of the toe. No fevers. Blood sugars have been running high. - Related Data Home Medications Medication Instructions Recorded Confirmed Citalopram Hydrobromide [CeleXA] 40 mg PO DAILY 12/21/13 05/13/19 INSULIN LISPRO (HumaLOG) [humaLOG] 16 units SQ AC-BRKFST 04/04/15 05/13/19 INSULIN LISPRO (HumaLOG) [humaLOG] 20 units SQ AC-LUNCH 04/04/15 05/13/19 INSULIN LISPRO (HumaLOG) [humaLOG] 24 units SQ AC-SUPPER 04/04/15 05/13/19 Metoprolol Succinate [Toprol XL] 50 mg PO DAILY 05/02/15 05/13/19 Nitroglycerin Sl Tabs [Nitrostat] 0.4 mg SUBLINGUAL Q5M PRN 05/02/15 05/13/19 Albuterol Nebulized [Ventolin 2.5 mg INHALATION RT-Q4H PRN 04/15/17 05/13/19 Nebulized] Aspirin 81 mg PO DAILY 04/15/17 05/13/19 Losartan Potassium 50 mg PO DAILY 04/15/17 05/13/19 Simvastatin [Zocor] 40 mg PO HS 04/15/17 05/13/19 amLODIPine [Norvasc] 10 mg PO DAILY 04/15/17 05/13/19 Folic Acid 0.8 mg PO DAILY 10/30/18 05/13/19 Insulin Degludec/Liraglutide 12 unit SQ HS 10/30/18 05/13/19 [Xultophy 100 Unit-3.6MG/ml Pen] Abatacept [Orencia] 125 mg SQ WE 05/07/19 05/13/19 Previous Rx's Medication Instructions Recorded Clopidogrel [Plavix] 75 mg PO DAILY 30 Days #30 tab 05/14/19 Allergies Allergy/AdvReac Type Severity Reaction Status Date / Time nickel Allergy Rash/Hives Verified 06/16/20 14:35 Review of Systems ROS Statement: Those systems with pertinent positive or pertinent negative responses have been documented in the HPI. ROS Other: All systems not noted in ROS Statement are negative. Constitutional: Denies: fever Eyes: Denies: eye pain ENT: Denies: ear pain Respiratory: Denies: cough Cardiovascular: Denies: chest pain Endocrine: Denies: fatigue Gastrointestinal: Denies: abdominal pain Genitourinary: Denies: dysuria Musculoskeletal: Reports: as per HPI. Denies: back pain Skin: Reports: as per HPI, rash Neurological: Denies: weakness Past Medical History Past Medical History: Asthma, COPD, CVA/TIA, Diabetes Mellitus, Hyperlipidemia, Hypertension, Pneumonia, Rheumatoid Arthritis (RA) Additional Past Medical History / Comment(s): ARTHRITIS, STROKE 2013. UTI-,RT GREAT TOE WOUND. Last Myocardial Infarction Date:: 2014 History of Any Multi-Drug Resistant Organisms: None Reported Past Surgical History: Adenoidectomy, Appendectomy, Tonsillectomy, Tubal Ligation Additional Past Surgical History / Comment(s): Open heart on April 13 2015 Past Anesthesia/Blood Transfusion Reactions: Previous Problems w/ Anesthesia Additional Past Anesthesia/Blood Transfusion Reaction / Comment(s): diff breathing Past Psychological History: No Psychological Hx Reported Smoking Status: Former smoker Past Alcohol Use History: None Reported Past Drug Use History: None Reported - Past Family History Father Family Medical History: Coronary Artery Disease (CAD), CVA/TIA, Diabetes Mellitus Mother Additional Family Medical History / Comment(s): "spot on the lung" General Exam Limitations: no limitations General appearance: alert, in no apparent distress Head exam: Present: atraumatic Eye exam: Present: normal appearance Neck exam: Present: normal inspection Respiratory exam: Present: normal lung sounds bilaterally Cardiovascular Exam: Present: regular rate, normal rhythm Expanded Peripheral pulses: 2+: Dorsalis Pedis (L) GI/Abdominal exam: Present: soft. Absent: distended, tenderness Extremities exam: Present: other (Left great toe with previous amputation of the very distal portion. There is open wound with mild purulent discharge and erythema extending to the distal foot. Left lateral foot with 1 cm ulcer.) Neurological exam: Present: alert Psychiatric exam: Present: normal affect, normal mood Skin exam: Present: erythema, other (Left toe erythema and purulent discharge. Left lateral distal foot ulcer) Course Vital Signs 06/16/20 14:32 Temperature 97.9 F Pulse Rate 105 H Respiratory 20 Rate Blood Pressure 172/80 O2 Sat by Pulse 94 L Oximetry Medical Decision Making - Medical Decision Making Case discussed with Dr. Thompson, who will admit covering for Dr. Guerrero. She agrees with Unasyn and vancomycin. She would consult with Dr. Gregory and Dr. Hanson. - Lab Data Result diagrams: 06/16/20 15:27 06/16/20 15:27 Lab Results 06/16/20 06/16/20 06/16/20 Range/Units 15:27 15:27 15:27 WBC 7.5 (3.8-10.6) k/uL RBC 4.44 (3.80-5.40) m/uL Hgb 13.8 (11.4-16.0) gm/dL Hct 40.4 (34.0-46.0) % MCV 91.1 (80.0-100.0) fL MCH 31.0 (25.0-35.0) pg MCHC 34.0 (31.0-37.0) g/dL RDW 13.2 (11.5-15.5) % Plt Count 288 (150-450) k/uL MPV 6.7 Neutrophils % 58 % Lymphocytes % 30 % Monocytes % 5 % Eosinophils % 5 % Basophils % 1 % Neutrophils # 4.4 (1.3-7.7) k/uL Lymphocytes # 2.3 (1.0-4.8) k/uL Monocytes # 0.3 (0-1.0) k/uL Eosinophils # 0.4 (0-0.7) k/uL Basophils # 0.0 (0-0.2) k/uL PT 9.6 (9.0-12.0) sec INR 0.9 (<1.2) APTT 22.1 (22.0-30.0) sec Sodium 136 L (137-145) mmol/L Potassium 4.4 (3.5-5.1) mmol/L Chloride 100 (98-107) mmol/L Carbon Dioxide 26 (22-30) mmol/L Anion Gap 10 mmol/L BUN 14 (7-17) mg/dL Creatinine 0.59 (0.52-1.04) mg/dL Est GFR (CKD-EPI)AfAm >90 (>60 ml/min/1.73 sqM) Est GFR (CKD-EPI)NonAf >90 (>60 ml/min/1.73 sqM) Glucose 221 H (74-99) mg/dL Plasma Lactic Acid Sandeep (0.7-2.0) mmol/L Calcium 9.1 (8.4-10.2) mg/dL Total Bilirubin 0.4 (0.2-1.3) mg/dL AST 24 (14-36) U/L ALT 16 (4-34) U/L Alkaline Phosphatase 112 (38-126) U/L Total Protein 7.0 (6.3-8.2) g/dL Albumin 4.1 (3.5-5.0) g/dL 06/16/20 Range/Units 15:27 WBC (3.8-10.6) k/uL RBC (3.80-5.40) m/uL Hgb (11.4-16.0) gm/dL Hct (34.0-46.0) % MCV (80.0-100.0) fL MCH (25.0-35.0) pg MCHC (31.0-37.0) g/dL RDW (11.5-15.5) % Plt Count (150-450) k/uL MPV Neutrophils % % Lymphocytes % % Monocytes % % Eosinophils % % Basophils % % Neutrophils # (1.3-7.7) k/uL Lymphocytes # (1.0-4.8) k/uL Monocytes # (0-1.0) k/uL Eosinophils # (0-0.7) k/uL Basophils # (0-0.2) k/uL PT (9.0-12.0) sec INR (<1.2) APTT (22.0-30.0) sec Sodium (137-145) mmol/L Potassium (3.5-5.1) mmol/L Chloride (98-107) mmol/L Carbon Dioxide (22-30) mmol/L Anion Gap mmol/L BUN (7-17) mg/dL Creatinine (0.52-1.04) mg/dL Est GFR (CKD-EPI)AfAm (>60 ml/min/1.73 sqM) Est GFR (CKD-EPI)NonAf (>60 ml/min/1.73 sqM) Glucose (74-99) mg/dL Plasma Lactic Acid Sandeep 1.3 (0.7-2.0) mmol/L Calcium (8.4-10.2) mg/dL Total Bilirubin (0.2-1.3) mg/dL AST (14-36) U/L ALT (4-34) U/L Alkaline Phosphatase (38-126) U/L Total Protein (6.3-8.2) g/dL Albumin (3.5-5.0) g/dL - Radiology Data Radiology results: image reviewed (X-ray of the left foot is concerning for osteomyelitis as well as soft tissue infection.) Disposition Clinical Impression: Cellulitis, Osteomyelitis Disposition: ADMITTED IP TO THIS HOSP Is patient prescribed a controlled substance at d/c from ED?: No Referrals: Jacob Sanderson DO [Primary Care Provider] - 1-2 days Decision Time: 16:00
[2020-06-16 15:44] LABS: Basophils % (A) 1 %; Eosinophils # (A) 0.4 k/uL (0-0.7); Eosinophils % (A) 5 %; HCT 40.4 % (34.0-46.0); HGB 13.8 gm/dL (11.4-16.0); Lymphocytes # (A) 2.3 k/uL (1.0-4.8); Lymphocytes % (A) 30 %; MCV 91.1 fL (80.0-100.0); Mean Platelet Volume 6.7; Monocytes # (A) 0.3 k/uL (0-1.0); Monocytes % (A) 5 %; Neutrophils # (A) 4.4 k/uL (1.3-7.7); Neutrophils % (A) 58 %; Platelet Count 288 k/uL (150-450); RBC 4.44 m/uL (3.80-5.40); RDW 13.2 % (11.5-15.5); WBC 7.5 k/uL (3.8-10.6)
[2020-06-16] MEDS ORDERED: AMPICILLIN-SULBACTAM 3 GM in SODIUM CHLORIDE 0.9% 100 ML IVPB STA (15:49)
[2020-06-16 15:52] LABS: INR 0.9 (<1.2); Partial Thromboplastin Time 22.1 sec (22.0-30.0); Prothrombin Time 9.6 sec (9.0-12.0)
--- NOTE | 2020-06-16 15:55 | XR ---
Left foot HISTORY: Great toe infection, foot erythema and drainage 3 views the left foot, correlation to prior exam May 12, 2020 The first digit shows abnormal lucency in the soft tissues, soft tissue swelling. There is bone destr uction of the tuft of the first digit which is developed in the interval. No evident dislocation. Ath erosclerotic vascular calcifications are noted in the soft tissues. There is a plantar calcaneal spur . IMPRESSION: Findings consistent with osteomyelitis, soft tissue infection.
[2020-06-16 16:19] LABS: ALT 16 U/L (4-34); AST 24 U/L (14-36); African American GFR (CKD) >90 (>60 ml/min/1.73 sqM); Albumin 4.1 g/dL (3.5-5.0); Alkaline Phosphatase 112 U/L (38-126); Anion Gap 10 mmol/L; Blood Urea Nitrogen 14 mg/dL (7-17); Calcium 9.1 mg/dL (8.4-10.2); Carbon Dioxide 26 mmol/L (22-30); Chloride 100 mmol/L (98-107); Glucose 221 mg/dL (74-99); Non-African American GFR(CKD) >90 (>60 ml/min/1.73 sqM); Potassium 4.4 mmol/L (3.5-5.1); Sodium 136 mmol/L (137-145); Total Bilirubin 0.4 mg/dL (0.2-1.3)
[2020-06-16] MEDS ORDERED: VANCOMYCIN IV PER PHARMACY 1 EACH MISC MISCELLANE PRN (16:24)
[2020-06-16] MEDS ORDERED: NALOXONE 0.4 MG/ML 1 ML VIAL IV PRN (16:25)
[2020-06-16] MEDS ORDERED: ACETAMINOPHEN TAB 325 MG TAB PO PRN (16:25)
[2020-06-16] MEDS ORDERED: VANCOMYCIN 1,500 MG in SODIUM CHLORIDE 0.9% 250 ML IVPB ONE (17:00)
[2020-06-16] MEDS: SODIUM CHLORIDE 0.9% 1,000 ML IV SCH (17:18)
[2020-06-16] MEDS ORDERED: traMADol 50 MG TAB PO PRN (23:00)
[2020-06-16] MEDS: FAMOTIDINE 20 MG TAB PO SCH (23:17)
[2020-06-16] MEDS: AMPICILLIN-SULBACTAM 1.5 GM in SODIUM CHLORIDE 0.9% 50 ML IVPB SCH (23:17)
[2020-06-16 23:30] LABS: Glucose,Whole Blood 264 mg/dL (75-99)
[2020-06-17] MEDS: SODIUM CHLORIDE 0.9% 1,000 ML IV SCH ×2 (03:29→12:16)
[2020-06-17] MEDS: AMPICILLIN-SULBACTAM 1.5 GM in SODIUM CHLORIDE 0.9% 50 ML IVPB SCH ×4 (04:59→23:55)
[2020-06-17 06:45] LABS: Glucose,Whole Blood 203 mg/dL (75-99)
[2020-06-17] MEDS: ASPIRIN 81 MG PO SCH (09:03)
[2020-06-17] MEDS: VANCOMYCIN 1,500 MG in SODIUM CHLORIDE 0.9% 250 ML IVPB SCH ×2 (09:03→20:29)
[2020-06-17] MEDS: LOSARTAN 50 MG TAB PO SCH (09:04)
[2020-06-17] MEDS: INSULIN ASPART (NovoLOG) 100 UNIT/ML VIAL SQ SCH ×4 (09:04→20:50)
[2020-06-17] MEDS: METOPROLOL SUCCINATE (ER) 50 MG TAB.ER.24H PO SCH (09:04)
[2020-06-17] MEDS: FAMOTIDINE 20 MG TAB PO SCH ×2 (09:04→20:51)
[2020-06-17] MEDS: CITALOPRAM HYDROBROMIDE 20 MG TAB PO SCH (09:04)
[2020-06-17] MEDS: amLODIPine 10 MG TAB PO SCH (09:04)
--- NOTE | 2020-06-17 10:02 | P.GSCN ---
History of Present Illness History of present illness: 70-year-old white female, patient is known to me from the wound clinic. Patient had a left foot partial toe amputation done where Dr. Pereira been treated with local wound care for the past 1 month. I was consulted for further evaluation at the last week care angiography of the leg patient came to the ER with history of infection or purulent drainage from the big toe. Patient had a left big toe Bita done by me in the past Patient was seen in the room neck supple no bruit appreciated Chest is clear first and second sound normal good air air entry both lungs Abdomen soft nontender Vascular femorals are 1+ bilateral posterior tibial dorsal pedis by the Doppler left foot big toe chronic wound with some redness x-ray of the foot shows first digit bone destruction Plan is left foot toe amputation risk and complication discussed patient understands Past Medical History Past Medical History: Asthma, Heart Failure, COPD, CVA/TIA, Diabetes Mellitus, Hyperlipidemia, Hypertension, Pneumonia, Rheumatoid Arthritis (RA) Additional Past Medical History / Comment(s): ARTHRITIS, STROKE 2013. UTI-,RT GREAT TOE WOUND. Last Myocardial Infarction Date:: 2014 History of Any Multi-Drug Resistant Organisms: None Reported Past Surgical History: Adenoidectomy, Appendectomy, Tonsillectomy, Tubal Ligation Additional Past Surgical History / Comment(s): Open heart on April 13 2015. Right great toe amputation 2014. stent in right leg above knee Past Anesthesia/Blood Transfusion Reactions: Previous Problems w/ Anesthesia Additional Past Anesthesia/Blood Transfusion Reaction / Comm: diff breathing Past Psychological History: No Psychological Hx Reported Smoking Status: Former smoker Past Alcohol Use History: None Reported Additional Past Alcohol Use History / Comment(s): STARTED SMOKING AT AGE 17, SMOKED 1 OR MORE PPD, QUIT, QUIT 27 YEARS AGO, MAY HAVE A DRINK AT A SPECIAL OCC. She denies any medical marijuana, marijuana, street drug use. 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 She is currently living at home with her , one cat, 2 dogs. She has recent travel in [place] area only. Past Drug Use History: None Reported - Past Family History Father Family Medical History: Coronary Artery Disease (CAD), CVA/TIA, Diabetes Mellitus Mother Additional Family Medical History / Comment(s): "spot on the lung" Medications and Allergies Home Medications Medication Instructions Recorded Confirmed Type Metoprolol Succinate [Toprol XL] 50 mg PO DAILY 05/02/15 06/16/20 History Nitroglycerin Sl Tabs [Nitrostat] 0.4 mg SL Q5M PRN 05/02/15 06/16/20 History Aspirin 81 mg PO DAILY 04/15/17 06/16/20 History Simvastatin [Zocor] 40 mg PO HS 04/15/17 06/16/20 History amLODIPine [Norvasc] 10 mg PO DAILY 04/15/17 06/16/20 History Abatacept [Orencia] 125 mg SQ WE 05/07/19 06/16/20 History Albuterol Sulfate [Proair Hfa] 2 puff INHALATION RT-Q4H PRN 06/16/20 06/16/20 History Citalopram Hydrobromide [CeleXA] 40 mg PO DAILY 06/16/20 06/16/20 History Insulin Aspart [NovoLOG Flexpen] 20 units SQ AC-TID 06/16/20 06/16/20 History Insulin Glargine,Hum.rec.anlog 20 unit SQ BID 06/16/20 06/16/20 History [Lantus Solostar] Ipratropium/Albuterol Sulfate 2 puff INHALATION RT-DAILY 06/16/20 06/16/20 Hi story [Combivent Respimat Inhaler] Losartan [Cozaar] 50 mg PO DAILY 06/16/20 06/16/20 History Pregabalin [Lyrica] 75 mg PO HS 06/16/20 06/16/20 History traMADol HCL 50 mg PO TID PRN 06/16/20 06/16/20 History Allergies Allergy/AdvReac Type Severity Reaction Status Date / Time nickel Allergy Rash/Hives Verified 06/16/20 16:44 Surgical - Exam Vital Signs Temp Pulse Resp BP Pulse Ox 97.9 F 105 H 20 172/80 94 L 06/16/20 14:32 06/16/20 14:32 06/16/20 14:32 06/16/20 14:32 06/16/20 14:32 Results - Labs 06/16/20 15:27 06/16/20 15:27 Abnormal Lab Results - Last 24 Hours (Table) 06/16/20 06/16/20 06/17/20 Range/Units 15:27 23:15 06:43 Sodium 136 L (137-145) mmol/L Glucose 221 H (74-99) mg/dL POC Glucose (mg/dL) 264 H 203 H (75-99) mg/dL Microbiology - Last 24 Hours (Table) 06/16/20 15:27 Gram Stain - Preliminary Toe - Left First Wound Culture - Preliminary Diabetes panel 06/16/20 Range/Units 15:27 Sodium 136 L (137-145) mmol/L Potassium 4.4 (3.5-5.1) mmol/L Chloride 100 (98-107) mmol/L Carbon Dioxide 26 (22-30) mmol/L BUN 14 (7-17) mg/dL Creatinine 0.59 (0.52-1.04) mg/dL Glucose 221 H (74-99) mg/dL Calcium 9.1 (8.4-10.2) mg/dL AST 24 (14-36) U/L ALT 16 (4-34) U/L Alkaline Phosphatase 112 (38-126) U/L Total Protein 7.0 (6.3-8.2) g/dL Albumin 4.1 (3.5-5.0) g/dL Calcium panel 06/16/20 Range/Units 15:27 Calcium 9.1 (8.4-10.2) mg/dL Albumin 4.1 (3.5-5.0) g/dL Pituitary panel 06/16/20 Range/Units 15:27 Sodium 136 L (137-145) mmol/L Potassium 4.4 (3.5-5.1) mmol/L Chloride 100 (98-107) mmol/L Carbon Dioxide 26 (22-30) mmol/L BUN 14 (7-17) mg/dL Creatinine 0.59 (0.52-1.04) mg/dL Glucose 221 H (74-99) mg/dL Calcium 9.1 (8.4-10.2) mg/dL Adrenal panel 06/16/20 Range/Units 15:27 Sodium 136 L (137-145) mmol/L Potassium 4.4 (3.5-5.1) mmol/L Chloride 100 (98-107) mmol/L Carbon Dioxide 26 (22-30) mmol/L BUN 14 (7-17) mg/dL Creatinine 0.59 (0.52-1.04) mg/dL Glucose 221 H (74-99) mg/dL Calcium 9.1 (8.4-10.2) mg/dL Total Bilirubin 0.4 (0.2-1.3) mg/dL AST 24 (14-36) U/L ALT 16 (4-34) U/L Alkaline Phosphatase 112 (38-126) U/L Total Protein 7.0 (6.3-8.2) g/dL Albumin 4.1 (3.5-5.0) g/dL
[2020-06-17 11:17] LABS: Glucose,Whole Blood 213 mg/dL (75-99)
--- NOTE | 2020-06-17 12:33 | P.HPIM ---
History of Present Illness H&P Date: 06/17/20 History of present illness This is a 70-year-old patient of Dr. Sanderson with past medical history of asthma, CHF, COPD, CVA, diabetes, hyperlipidemia, hypertension, rheumatoid arthritis indication of the left great toe. And a chronic ulceration to the left great toe and left lateral foot. Patient is a former nonsmoker who stopped smoking approximately 27 years ago. She drinks alcohol occasionally. Denies any illicit drug use or marijuana. The patient presented to the emergency room for a nonhealing ulceration to the left great toe and left lateral foot. Patient has been seen by the wound care center and Dr. Gregory for the last few weeks. Dr. Gregory did perform a run off which did show some blockage to the left lower extremity. However due to the location of the blockage she was unable to do any intervention at this time. Patient has been utilizing multiple advanced testing. On Friday patient was seen by her home health care nurse who was concerned about the increased drainage to the site and instructed her to go to the emergency room. In the emergency room a x-ray was performed which did show osteo-myelitis to the left great toe. At this time patient is resting comfortably in bed with no acute distress. Patient has dressing to the left foot. Upon examination the right foot shows dried calloused area to the distal portion of the right great toe with redness to the periwound. The right lateral foot ulceration appears to be epitheliali zed. ABC 7.5, hemoglobin 13.8, platelets 288, potassium 4.4, BUN 14, creatinine 0.59, glucose 221. Review Of Systems: Constitutional: No fever, no chills, no night sweats. No weight change. No we akness, fatigue or lethargy. No daytime sleepiness. EENT: No headache. No blurred vision or double vision, no loss of vision. No loss of Hearing, no ringing in the ears, no dizziness. No nasal drainage or congestion. No epistaxis. No sore throat. Lungs: No shortness of breath, cough, no sputum production. No wheezing. Cardiovascular: No chest pain, no lower extremity edema. No palpitations. No paroxysmal nocturnal dyspnea. No orthopnea. No lightheadedness or dizziness. No syncopal episodes. Abdominal: no abdominal discomfort. No nausea, vomiting. no diarrhea. No constipation. No bloody or tarry stools. no loss of appetite. Genitourinary: No dysuria, increased frequency, urgency. No urinary retention. Musculoskeletal: No myalgias. No muscle weakness, no gait dysfunction, no frequent falls. No back pain. No neck pain. Integumentary: No wounds, no lesions. No rash or pruritus. No unusual bruising. No change in hair or nails. Neurologic: No aphasia. No facial droop. No change in mentation. No head injury. No headache. No paralysis. No paresthesia. Psychiatric: No depression. No anxiety. No mood swings. Endocrine: No abnormal blood sugars. No weight change. No excessive sweating or thirst. Social history: Former smoker quit 27 years ago, denies illicit drug use or marijuana. Drinks alcohol occasionally Family history: Patient lives with her . Patient's father recently from an [place], dad from COPD CAD. Patient has 2 brothers 1 with lung cancer and one sister. Patient has 2 children who are healthy. Physical examination General Appearance: Alert, cooperative, no distress, appears stated age. Neck HEENT: Supple, no lymphadenopathy, no thyroid enlargement, no carotid bruits. Lungs: Clear to auscultation without crackles or wheezes no rhonchi, no deformity. Chest Wall: Chest wall normal expansion with deep inspiration no tenderness and no deformity was found on exam, no costochondral pain or discomfort. Heart: Regular rate and rhythm, S1, S2 normal, no murmur, rub or gallop. Back: Symmetric, no curvature, ROM normal, no CVA tenderness. Abdomen: Soft, non-tender, no rebound or rigidity, no hepatosplenomegaly. Extremities: Extremities normal, atraumatic, no cyanosis or edema. Pulses: 2+ and symmetric. Skin: Diabetic foot ulcer right great toe right lateral foot, Skin color, texture, tugor normal, no rashes or lesions. Neurologic: Alert oriented x3 cranial nerves II through XII intact, no motor deficit, no abnormal balance or gait Assessment and plan 1. Diabetic foot ulcer right great toe with osteomyelitis. Consult vascular surgery, consult infectious disease. Local wound care as prescribed by Dr. Cb estevez. 2. osteomyelitis. Consult infectious disease. Unasyn 1.5 g every 6 hours IV piggyback, vancomycin, blood cultures and wound culture ordered. 3. Diabetes mellitus. NovoLog sliding scale 4. Peripheral vascular disease status post stent to right lower extremity and right great toe amputation 5. Congestive heart failure metoprolol 50 mg by mouth daily 6. Hyperlipidemia. Lipitor 40 mg by mouth at bedtime 7. Hypertension. Norvasc 10 mg by mouth, Cozaar 50 mg by mouth daily 8. COPD, stable. 9. Depression. Celexa 40 mg by mouth at bedtime 10. GI prophylaxis Pepcid 20 mg by mouth twice a day 11. DVT prophylaxis. Pneumatic compression garment Patient will be admitted for a minimum of 2 nights day. CODE STATUS: Full code Discharge plan: Possibly home Impression and plan of care have been directed as dictated by the signing physician. Sarita Damian nurse practitioner acting as scribe for signing physician. Past Medical History Past Medical History: Asthma, Heart Failure, COPD, CVA/TIA, Diabetes Mellitus, Hyperlipidemia, Hypertension, Pneumonia, Rheumatoid Arthritis (RA) Additional Past Medical History / Comment(s): ARTHRITIS, STROKE 2013. UTI-,RT GREAT TOE WOUND. Last Myocardial Infarction Date:: 2014 History of Any Multi-Drug Resistant Organisms: None Reported Past Surgical History: Adenoidectomy, Appendectomy, Tonsillectomy, Tubal Ligation Additional Past Surgical History / Comment(s): Open heart on April 13 2015. Right great toe amputation 2014. stent in right leg above knee Past Anesthesia/Blood Transfusion Reactions: Previous Problems w/ Anesthesia Additional Past Anesthesia/Blood Transfusion Reaction / Comment(s): diff breathing Past Psychological History: No Psychological Hx Reported Smoking Status: Former smoker Past Alcohol Use History: None Reported Additional Past Alcohol Use History / Comment(s): STARTED SMOKING AT AGE 17, SMOKED 1 OR MORE PPD, QUIT, QUIT 27 YEARS AGO, MAY HAVE A DRINK AT A SPECIAL OCC. She denies any medical marijuana, marijuana, street drug use. She recently retired. 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 She is currently living at home with her , one cat, 2 dogs. She has recent travel in [place] area only. Past Drug Use History: None Reported - Past Family History Father Family Medical History: Coronary Artery Disease (CAD), CVA/TIA, Diabetes Mellitus Mother Additional Family Medical History / Comment(s): "spot on the lung" Medications and Allergies Home Medications Medication Instructions Recorded Confirmed Type Metoprolol Succinate [Toprol XL] 50 mg PO DAILY 05/02/15 06/16/20 History Nitroglycerin Sl Tabs [Nitrostat] 0.4 mg SL Q5M PRN 05/02/15 06/16/20 History Aspirin 81 mg PO DAILY 04/15/17 06/16/20 History Simvastatin [Zocor] 40 mg PO HS 04/15/17 06/16/20 History amLODIPine [Norvasc] 10 mg PO DAILY 04/15/17 06/16/20 History Abatacept [Orencia] 125 mg SQ WE 05/07/19 06/16/20 History Albuterol Sulfate [Proair Hfa] 2 puff INHALATION RT-Q4H PRN 06/16/20 06/16/20 History Citalopram Hydrobromide [CeleXA] 40 mg PO DAILY 06/16/20 06/16/20 History Insulin Aspart [NovoLOG Flexpen] 20 units SQ AC-TID 06/16/20 06/16/20 History Insulin Glargine,Hum.rec.anlog 20 unit SQ BID 06/16/20 06/16/20 History [Lantus Solostar] Ipratropium/Albuterol Sulfate 2 puff INHALATION RT-DAILY 06/16/20 06/16/20 History [Combivent Respimat Inhaler] Losartan [Cozaar] 50 mg PO DAILY 06/16/20 06/16/20 History Pregabalin [Lyrica] 75 mg PO HS 06/16/20 06/16/20 History traMADol HCL 50 mg PO TID PRN 06/16/20 06/16/20 History Allergies Allergy/AdvReac Type Severity Reaction Status Date / Time nickel Allergy Rash/Hives Verified 06/16/20 16:44 Physical Exam Vitals: Vital Signs Temp Pulse Pulse Pulse Resp BP BP 06/17/20 08:29 97.4 F L 79 79 19 155/72 06/17/20 01:10 98.1 F 71 16 103/56 06/16/20 20:00 97.6 F 78 15 131/55 06/16/20 17:29 74 18 138/74 06/16/20 14:32 97.9 F 105 H 20 172/80 Pulse Ox 06/17/20 08:29 92 L 06/17/20 01:10 92 L 06/16/20 20:00 90 L 06/16/20 17:29 94 L 06/16/20 14:32 94 L Intake and Output 06/16/20 06/17/20 06/17/20 22:59 06:59 14:59 Other: Voiding Method Toilet Weight 88.451 kg Results CBC & Chem 7: 06/16/20 15:27 06/16/20 15:27 Labs: Abnormal Lab Results - Last 24 Hours (Table) 06/16/20 06/16/20 06/17/20 Range/Units 15:27 23:15 06:43 Sodium 136 L (137-145) mmol/L Glucose 221 H (74-99) mg/dL POC Glucose (mg/dL) 264 H 203 H (75-99) mg/dL 06/17/20 Range/Units 11:15 Sodium (137-145) mmol/L Glucose (74-99) mg/dL POC Glucose (mg/dL) 213 H (75-99) mg/dL Microbiology - Last 24 Hours (Table) 06/16/20 15:27 Gram Stain - Preliminary Toe - Left First Wound Culture - Preliminary Thrombosis Risk Factor Assmnt - Choose All That Apply Any of the Below Risk Factors Present?: Yes Each Factor Represents 1 point: Abnormal pulmonary function (COPD), Obesity (BMI >25) Other Risk Factors: Yes Each Risk Factor Represents 2 Points: Age 61-74 years Thrombosis Risk Factor Assessment Total Risk Factor Score: 4 Thrombosis Risk Factor Assessment Level: Moderate Risk
[2020-06-17 17:20] LABS: Glucose,Whole Blood 230 mg/dL (75-99)
[2020-06-17 20:37] LABS: Glucose,Whole Blood 269 mg/dL (75-99)
[2020-06-17] MEDS: PREGABALIN 75 MG CAP PO SCH (20:51)
[2020-06-17] MEDS: ATORVASTATIN 20 MG TAB PO SCH (20:51)
[2020-06-17] MEDS ORDERED: INSULIN ASPART (NovoLOG) 100 UNIT/ML VIAL SQ SCH (23:01)
[2020-06-18] MEDS: SODIUM CHLORIDE 0.9% 1,000 ML IV SCH ×3 (02:58→18:32)
[2020-06-18] MEDS: AMPICILLIN-SULBACTAM 1.5 GM in SODIUM CHLORIDE 0.9% 50 ML IVPB SCH ×3 (05:58→18:30)
[2020-06-18 06:51] LABS: Glucose,Whole Blood 227 mg/dL (75-99)
[2020-06-18] MEDS: VANCOMYCIN 1,500 MG in SODIUM CHLORIDE 0.9% 250 ML IVPB SCH ×2 (08:15→20:41)
[2020-06-18] MEDS: INSULIN ASPART (NovoLOG) 100 UNIT/ML VIAL SQ SCH ×6 (08:15→20:41)
[2020-06-18] MEDS: amLODIPine 10 MG TAB PO SCH (08:16)
[2020-06-18] MEDS: CITALOPRAM HYDROBROMIDE 20 MG TAB PO SCH (08:16)
[2020-06-18] MEDS: ASPIRIN 81 MG PO SCH (08:16)
[2020-06-18] MEDS: METOPROLOL SUCCINATE (ER) 50 MG TAB.ER.24H PO SCH (08:16)
[2020-06-18] MEDS: LOSARTAN 50 MG TAB PO SCH (08:16)
[2020-06-18] MEDS: FAMOTIDINE 20 MG TAB PO SCH ×2 (08:16→20:42)
--- NOTE | 2020-06-18 11:36 | P.PN ---
Subjective Progress Note Date: 06/18/20 This is a 70-year-old patient of Dr. Sanderson with past medical history of asthma, CHF, COPD, CVA, diabetes, hyperlipidemia, hypertension, rheumatoid arthritis indication of the left great toe. And a chronic ulceration to the left great toe and left lateral foot. Patient is a former nonsmoker who stopped smoking approximately 27 years ago. She drinks alcohol occasionally. Denies any illicit drug use or marijuana. The patient presented to the emergency room for a nonhealing ulceration to the left great toe and left lateral foot. Patient has been seen by the wound care center and Dr. Gregory for the last few weeks. Dr. Gregory did perform a run off which did show some blockage to the left lower extremity. However due to the location of the blockage she was unable to do any intervention at this time. Patient has been utilizing multiple advanced testing. On Friday patient was seen by her home health care nurse who was concerned about the increased drainage to the site and instructed her to go to the emergency room. In the emergency room a x-ray was performed which did show osteo-myelitis to the left great toe. At this time patient is resting comfortably in bed with no acute distress. Patient has dressing to the left foot. Upon examination the right foot shows dried calloused area to the distal portion of the right great toe with redness to the periwound. The right lateral foot ulceration appears to be epithelialized. ABC 7.5, hemoglobin 13.8, platelets 288, potassium 4.4, BUN 14, creatinine 0.59, glucose 221. 3/7: Is found sitting up in a chair without any complaints or concerns. Patient is in no acute distress. She is scheduled to have a left great toe amputation today around 12. Patient may require antibiotics for approximately 1 week post amputation she should be able to go home within the next few days. Patient remains afebrile, blood pressure 146/77, pulse rate 72, respirations 18 nonlabored, pulse ox 94% on room air. Sugars are slightly elevated in the 20s to 260s. Review Of Systems: Constitutional: No fever, no chills, no night sweats. No weight change. No weakness, fatigue or lethargy. No daytime sleepiness. EENT: No headache. No blurred vision or double vision, no loss of vision. No loss of Hearing, no ringing in the ears, no dizziness. No nasal drainage or congestion. No epistaxis. No sore throat. Lungs: No shortness of breath, cough, no sputum production. No wheezing. Cardiovascular: No chest pain, no lower extremity edema. No palpitations. No paroxysmal nocturnal dyspnea. No orthopnea. No lightheadedness or dizziness. No syncopal episodes. Abdominal: no abdominal discomfort. No nausea, vomiting. no diarrhea. No constipation. No bloody or tarry stools. no loss of appetite. Genitourinary: No dysuria, increased frequency, urgency. No urinary retention. Musculoskeletal: No myalgias. No muscle weakness, no gait dysfunction, no frequent falls. No back pain. No neck pain. Integumentary: No wounds, no lesions. No rash or pruritus. No unusual bruising. No change in hair or nails. Neurologic: No aphasia. No facial droop. No change in mentation. No head injury. No headache. No paralysis. No paresthesia. Psychiatric: No depression. No anxiety. No mood swings. Endocrine: No abnormal blood sugars. No weight change. No excessive sweating or thirst. Physical examination General Appearance: Alert, cooperative, no distress, appears stated age. Neck HEENT: Supple, no lymphadenopathy, no thyroid enlargement, no carotid bruits. Lungs: Clear to auscultation without crackles or wheezes no rhonchi, no deformity. Chest Wall: Chest wall normal expansion with deep inspiration no tenderness and no deformity was found on exam, no costochondral pain or discomfort. Heart: Regular rate and rhythm, S1, S2 normal, no murmur, rub or gallop. Back: Symmetric, no curvature, ROM normal, no CVA tenderness. Abdomen: Soft, non-tender, no rebound or rigidity, no hepatosplenomegaly. Extremities: Extremities normal, atraumatic, no cyanosis or edema. Pulses: 2+ and symmetric. Skin: Diabetic foot ulcer right great toe right lateral foot, Skin color, texture, tugor normal, no rashes or lesions. Neurologic: Alert oriented x3 cranial nerves II through XII intact, no motor deficit, no abnormal balance or gait Assessment and plan 1. Diabetic foot ulcer right great toe with osteomyelitis. Consult vascular surgery, consult infectious disease. Local wound care as prescribed by Dr. Gregoyr. 2. osteomyelitis. Consult infectious disease. Unasyn 1.5 g every 6 hours IV piggyback, vancomycin, blood cultures and wound culture ordered. 3. Diabetes mellitus. add Levemir 20 units twice a day, NovoLog 20 units before meals 3 times a day continue with sliding scale as needed 4. Peripheral vascular disease status post stent to right lower extremity and right great toe amputation 5. Congestive heart failure metoprolol 50 mg by mouth daily 6. Hyperlipidemia. Lipitor 40 mg by mouth at bedtime 7. Hypertension. Norvasc 10 mg by mouth, Cozaar 50 mg by mouth daily 8. COPD, stable. 9. Depression. Celexa 40 mg by mouth at bedtime 10. GI prophylaxis Pepcid 20 mg by mouth twice a day 11. DVT prophylaxis. Pneumatic compression garment Patient will be admitted for a minimum of 2 nights day. CODE STATUS: Full code Discharge plan: Possibly home Impression and plan of care have been directed as dictated by the signing p sonia. Sarita Damian nurse practitioner acting as scribe for signing physician. Objective - Vital Signs Vital signs: Vital Signs Temp 97.9 F 06/18/20 07:35 Pulse 72 06/18/20 07:35 Resp 18 06/18/20 07:35 BP 146/77 06/18/20 07:35 Pulse Ox 94 L 06/18/20 07:35 Intake & Output 06/17/20 06/18/20 06/18/20 18:59 06:59 18:59 Other: # Voids 3 3 - Labs CBC & Chem 7: 06/16/20 15:27 06/16/20 15:27 Labs: Abnormal Lab Results - Last 24 Hours (Table) 06/17/20 06/17/20 06/18/20 Range/Units 17:17 20:36 06:49 POC Glucose (mg/dL) 230 H 269 H 227 H (75-99) mg/dL Microbiology - Last 24 Hours (Table) 06/16/20 16:00 Blood Culture - Preliminary Blood No Growth after 24 hours 06/16/20 15:27 Blood Culture - Preliminary Blood No Growth after 24 hours
[2020-06-18 11:38] LABS: Glucose,Whole Blood 192 mg/dL (75-99)
[2020-06-18 11:47] LABS: Basophils # (A) 0.04 X 10*3/uL (0.00-0.10); Basophils % (A) 0.6 %; Eosinophils # (A) 0.39 X 10*3/uL (0.04-0.35); HCT 38.2 % (37.2-46.3); HGB 12.2 g/dL (12.0-15.0); Lymphocytes # (A) 2.24 X 10*3/uL (0.90-5.00); Lymphocytes % (A) 34.7 %; MCH 30.1 pg (27.0-32.0); MCHC 31.9 g/dL (32.0-37.0); MCV 94.3 fL (80.0-97.0); Mean Platelet Volume 9.8 fL (9.5-12.2); Monocytes # (A) 0.62 X 10*3/uL (0.20-1.00); Monocytes % (A) 9.6 %; Neutrophils # (A) 3.15 X 10*3/uL (1.80-7.70); Neutrophils % (A) 48.8 %; Platelet Count 259 X 10*3/uL (140-440); RBC 4.05 X 10*6/uL (4.10-5.20); RDW 13.3 % (11.5-14.5); WBC 6.46 X 10*3/uL (4.50-10.00)
[2020-06-18 12:15] LABS: Calcium 8.2 mg/dL (8.7-10.3); Non-African American GFR(CKD) 87.2 (60.0-200.0); Potassium 4.6 mmol/L (3.5-5.5)
[2020-06-18 15:25] LABS: Glucose,Whole Blood 151 mg/dL (75-99)
[2020-06-18] MEDS ORDERED: MIDAZOLAM 2 MG/2 ML VIAL ONE (15:30)
[2020-06-18] MEDS ORDERED: KETAMINE 10 MG/ML 20 ML VIAL ONE (15:30)
[2020-06-18] MEDS ORDERED: fentaNYL (PF) 50 MCG/ML 2 ML AMP ONE (15:30)
[2020-06-18] MEDS ORDERED: PROPOFOL 10 MG/ML 20 ML VIAL IV ONE (15:30)
[2020-06-18] MEDS ORDERED: IV FLUID CONTINUATION 1,000 ML IV ONE (15:35)
[2020-06-18] MEDS ORDERED: LIDOCAINE 1% INJ 10MG/ML (20 ML MDV) SQ ONE ×2 (15:48)
[2020-06-18] MEDS ORDERED: ALBUTEROL NEBULIZED 2.5 MG/3 ML INHALATION ONE (16:32)
[2020-06-18 16:34] LABS: Glucose,Whole Blood 147 mg/dL (75-99)
[2020-06-18 20:07] LABS: Glucose,Whole Blood 302 mg/dL (75-99)
[2020-06-18] MEDS: ATORVASTATIN 20 MG TAB PO SCH (20:41)
[2020-06-18] MEDS: INSULIN DETEMIR (LEVEMIR) 100 UNIT/ML SYR SQ SCH (20:41)
[2020-06-18] MEDS: PREGABALIN 75 MG CAP PO SCH (20:42)
[2020-06-19] MEDS: AMPICILLIN-SULBACTAM 1.5 GM in SODIUM CHLORIDE 0.9% 50 ML IVPB SCH ×4 (01:39→17:07)
[2020-06-19] MEDS: MORPHINE SULFATE 4 MG/ML SYRINGE IV PRN ×3 (03:03→20:04)
[2020-06-19] MEDS: SODIUM CHLORIDE 0.9% 1,000 ML IV SCH (05:06)
[2020-06-19] MEDS ORDERED: VANCOMYCIN TROUGH DUE 1 EACH MISC MISCELLANE ONE (06:00)
--- NOTE | 2020-06-19 07:00 | CONS ---
CONSULTATION DATE OF SERVICE: 06/18/2020 REASON FOR CONSULTATION: Left big toe diabetic foot infection. HISTORY OF PRESENT ILLNESS: The patient is a 70-year-old female with past medical history for diabetes, diabetic foot infection and diabetic neuropathy in this patient who presented to the ER on the for evaluation of left big toe infection. Apparently the patient did have a sore on the left big toe that had been treated in the outpatient setting by Dr. Gregory for more than a month now and did not have any significant improvement. The patient apparently was noticed by the wound home care nurse to have increasing drainage from her left big toe with concern for left diabetic foot infection with worsening cellulitis. The patient was advised to go to the hospital. The patient mentioned sensation in the legs and denies pain to the left big toe area. The patient denies having any fever or any chills. Denies having any chest pain, shortness of breath or cough. No nausea, no vomiting. No abdominal pain or any diarrhea. Patient on presentation to the hospital has been afebrile. The patient did have an x-ray of the left foot with evidence of findings suspicious for osteomyelitis and soft tissue infection. The patient has been evaluated by Vascular Surgery and status post amputation of the left big toe. She has been treated with vancomycin and Unasyn. Infectious Disease was consulted for further management of antibiotic therapy. REVIEW OF SYSTEMS: Positive points have been mentioned in HPI. Rest of the systems are negative. PAST MEDICAL HISTORY: Asthma, COPD, CVA, TIA, diabetes mellitus, hypertension, hyperlipidemia, rheumatoid arthritis and pneumonia. PAST SURGICAL HISTORY: Hip, adenoidectomy, tonsillectomy, tubal ligation. SOCIAL HISTORY: Remote history of smoking. No drinking or drug use. FAMILY HISTORY: Father with history of CVA and diabetes mellitus. ALLERGIES: NICKEL. MEDICATIONS: Include the patient is currently on Unasyn, vancomycin, Tylenol, Norvasc, aspirin, Lipitor, Celexa, Pepcid, NovoLog, Levemir, Cozaar, Toprol-XL, morphine sulfate, Narcan, Lyrica, and IV fluid. PHYSICAL EXAMINATION: VITAL SIGNS: Blood pressure 133/74 with a pulse of 58, temperature 98, she is 93% on room air. GENERAL DESCRIPTION: The patient is an elderly female lying in bed in no distress. HEENT: Examination shows no pallor or scleral icterus. Oral mucous membrane is dry. NECK: Trachea central, no thyromegaly. LUNGS: Unlabored breathing, clear to auscultation anteriorly. No wheeze or crackle. HEART: S1, S2. Regular rate and rhythm. ABDOMEN: Soft, no tenderness. No guarding or rigidity. EXTREMITIES: Left foot is currently dressed up. No obvious drainage on the dressing. LABS: Hemoglobin is 12.8, white count 6.46, BUN of 14, creatinine 0.7. Cultures currently pending. IMPRESSION/PLAN: Patient with left diabetic foot infection with left big toe osteomyelitis in this patient who is currently status post left great toe amputation with infected . Patient on long-term antibiotic therapy. PLAN: 1. Will keep the patient on vancomycin Unasyn while waiting for the culture to finalize. 2. We will follow on clinical condition and culture to further adjust medication if needed. Thank you for this consultation. Will follow this patient along with you. MMODL / IJN: [id number] /
[2020-06-19 07:24] LABS: Glucose,Whole Blood 298 mg/dL (75-99)
[2020-06-19] MEDS: VANCOMYCIN 1,500 MG in SODIUM CHLORIDE 0.9% 250 ML IVPB SCH ×2 (07:55→17:51)
[2020-06-19] MEDS: amLODIPine 10 MG TAB PO SCH (07:55)
[2020-06-19] MEDS: LOSARTAN 50 MG TAB PO SCH (07:55)
[2020-06-19] MEDS: FAMOTIDINE 20 MG TAB PO SCH ×2 (07:55→20:03)
[2020-06-19] MEDS: ASPIRIN 81 MG PO SCH (07:55)
[2020-06-19] MEDS: METOPROLOL SUCCINATE (ER) 50 MG TAB.ER.24H PO SCH (07:55)
[2020-06-19] MEDS: INSULIN DETEMIR (LEVEMIR) 100 UNIT/ML SYR SQ SCH ×2 (07:55→20:05)
[2020-06-19] MEDS: CITALOPRAM HYDROBROMIDE 20 MG TAB PO SCH (07:55)
[2020-06-19] MEDS: INSULIN ASPART (NovoLOG) 100 UNIT/ML VIAL SQ SCH ×7 (07:56→19:58)
[2020-06-19 11:22] LABS: Glucose,Whole Blood 206 mg/dL (75-99)
--- NOTE | 2020-06-19 14:06 | P.PN ---
Subjective Progress Note Date: 06/19/20 This is a 70-year-old patient of Dr. Sanderson with past medical history of asthma, CHF, COPD, CVA, diabetes, hyperlipidemia, hypertension, rheumatoid arthritis indication of the left great toe. And a chronic ulceration to the left great toe and left lateral foot. Patient is a former nonsmoker who stopped smoking approximately 27 years ago. She drinks alcohol occasionally. Denies any illicit drug use or marijuana. The patient presented to the emergency room for a nonhealing ulceration to the left great toe and left lateral foot. Patient has been seen by the wound care center and Dr. Gregory for the last few weeks. Dr. Gregory did perform a run off which did show some blockage to the left lower extremity. However due to the location of the blockage she was unable to do any intervention at this time. Patient has been utilizing multiple advanced testing. On Friday patient was seen by her home health care nurse who was concerned about the increased drainage to the site and instructed her to go to the emergency room. In the emergency room a x-ray was performed which did show osteo-myelitis to the left great toe. At this time patient is resting comfortably in bed with no acute distress. Patient has dressing to the left foot. Upon examination the right foot shows dried calloused area to the distal portion of the right great toe with redness to the periwound. The right lateral foot ulceration appears to be epithelialized. ABC 7.5, hemoglobin 13.8, platelets 288, potassium 4.4, BUN 14, creatinine 0.59, glucose 221. 06/18: Is found sitting up in a chair without any complaints or concerns. Patient is in no acute distress. She is scheduled to have a left great toe amputation today around 12. Patient may require antibiotics for approximately 1 week post amputation she should be able to go home within the next few days. Patient remains afebrile, blood pressure 146/77, pulse rate 72, respirations 18 nonlabored, pulse ox 94% on room air. Sugars are elevated in the 20s to 260s. 06/19: She is status post left great toe amputation as of yesterday with Dr. Gregory. Pain is currently controlled. She denies any fever or chills. Patient has been afebrile, heart rate 64, blood pressure 117/65, pulse ox 100% on room air. Blood sugars have been elevated running between 206 and 302. Wound culture is Tomasa species not albicans. Blood culture no growth at 48 hours. Tissue cultures obtained during surgery are in process. The patient is followed by Dr. Mccabe and currently on Unasyn and vancomycin. Patient's last A1c was 9 on March 2020. Repeat A1c ordered. Review Of Systems: Constitutional: No fever, no chills, no night sweats. No weight change. No weakness, fatigue or lethargy. No daytime sleepiness. EENT: No headache. No blurred vision or double vision, no loss of vision. No loss of Hearing, no ringing in the ears, no dizziness. No nasal drainage or congestion. No epistaxis. No sore throat. Lungs: No shortness of breath, cough, no sputum production. No wheezing. Cardiovascular: No chest pain, no lower extremity edema. No palpitations. No paroxysmal nocturnal dyspnea. No orthopnea. No lightheadedness or dizziness. No syncopal episodes. Abdominal: no abdominal discomfort. No nausea, vomiting. no diarrhea. No constipation. No bloody or tarry stools. no loss of appetite. Genitourinary: No dysuria, increased frequency, urgency. No urinary retention. Musculoskeletal: No myalgias. No muscle weakness, no gait dysfunction, no frequent falls. No back pain. No neck pain. Integumentary: Left great toe wounds, no lesions. No rash or pruritus. No unusual bruising. No change in hair or nails. Neurologic: No aphasia. No facial droop. No change in mentation. No head injury. No headache. No paralysis. No paresthesia. Psychiatric: No depression. No anxiety. No mood swings. Endocrine: No abnormal blood sugars. No weight change. No excessive sweating or thirst. Physical examination General Appearance: Alert, cooperative, no distress, appears stated age. Neck HEENT: Supple, no lymphadenopathy, no thyroid enlargement, no carotid bruits. Lungs: Clear to auscultation without crackles or wheezes no rhonchi, no deformity. Chest Wall: Chest wall normal expansion with deep inspiration no tenderness and no deformity was found on exam, no costochondral pain or discomfort. Heart: Regular rate and rhythm, S1, S2 normal, no murmur, rub or gallop. Back: Symmetric, no curvature, ROM normal, no CVA tenderness. Abdomen: Soft, non-tender, no rebound or rigidity, no hepatosplenomegaly. Extremities: Extremities normal, atraumatic, no cyanosis or edema. Pulses: 2+ and symmetric. Skin: Diabetic foot ulcer right lateral foot, dressing in place to the right great toe. Previous amputation to the right great toe. Skin color, texture, tugor normal, no rashes or lesions. Neurologic: Alert oriented x3 cranial nerves II through XII intact, no motor deficit, no abnormal balance or gait Assessment and plan 1. Diabetic foot ulcer left great toe with osteomyelitis status post amputation. Consult vascular surgery, consult infectious disease. Local wound care as prescribed by Dr. Gregory. 2. osteomyelitis. Consult infectious disease. Unasyn 1.5 g every 6 hours IV piggyback, vancomycin, blood cultures and wound culture ordered. 3. Diabetes mellitus type II uncontrolled with hyperglycemia. Continue Levemir crease to 25 units twice a day, NovoLog 20 units before meals 3 times a day continue with sliding scale as needed 4. Peripheral vascular disease status post stent to right lower extremity and right great toe amputation 5. Chronic diastolic heart failure metoprolol 50 mg by mouth daily 6. Hyperlipidemia. Lipitor 40 mg by mouth at bedtime 7. Hypertension. Norvasc 10 mg by mouth, Cozaar 50 mg by mouth daily 8. COPD, stable. 9. Recurrent Depression. Celexa 40 mg by mouth at bedtime 10. GI prophylaxis Pepcid 20 mg by mouth twice a day 11. DVT prophylaxis. Pneumatic compression garment Patient will be admitted for a minimum of 2 nights day. CODE STATUS: Full code Discharge plan: home Impression and plan of care have been directed as dictated by the signing physician. Emliy Higginbotham nurse practitioner acting as scribe for signing physician. Objective - Vital Signs Vital signs: Vital Signs Temp 97.7 F 06/19/20 08:00 Pulse 64 06/19/20 08:00 Resp 18 06/19/20 08:00 BP 117/65 06/19/20 08:00 Pulse Ox 100 06/19/20 08:00 Intake & Output 06/18/20 06/19/20 06/19/20 18:59 06:59 18:59 Intake Total 500 Output Total 15 Balance 485 Weight 88.451 kg Intake: IV 500 Output: Estimated Blood Loss 15 Other: Voiding Method Bedside Commode # Voids 3 2 - Labs CBC & Chem 7: 06/18/20 07:00 06/18/20 06:53 Labs: Abnormal Lab Results - Last 24 Hours (Table) 06/18/20 06/18/20 06/18/20 Range/Units 06:53 07:00 11:36 RBC 4.05 L (4.10-5.20) X 10*6/uL MCHC 31.9 L (32.0-37.0) g/dL Eosinophils # 0.39 H (0.04-0.35) X 10*3/uL Glucose 226 H (70-110) mg/dL POC Glucose (mg/dL) 192 H (75-99) mg/dL Calcium 8.2 L (8.7-10.3) mg/dL 06/18/20 06/18/20 06/18/20 Range/Units 15:21 16:31 20:05 RBC (4.10-5.20) X 10*6/uL MCHC (32.0-37.0) g/dL Eosinophils # (0.04-0.35) X 10*3/uL Glucose (70-110) mg/dL POC Glucose (mg/dL) 151 H 147 H 302 H (75-99) mg/dL Calcium (8.7-10.3) mg/dL 06/19/20 Range/Units 07:22 RBC (4.10-5.20) X 10*6/uL MCHC (32.0-37.0) g/dL Eosinophils # (0.04-0.35) X 10*3/uL Glucose (70-110) mg/dL POC Glucose (mg/dL) 298 H (75-99) mg/dL Calcium (8.7-10.3) mg/dL Microbiology - Last 24 Hours (Table) 06/16/20 15:27 Gram Stain - Final Toe - Left First Wound Culture - Final Tomasa sp,not albicans/galbr 06/16/20 16:00 Blood Culture - Preliminary Blood No Growth after 48 hours 06/16/20 15:27 Blood Culture - Preliminary Blood No Growth after 48 hours
[2020-06-19 16:18] LABS: Glucose,Whole Blood 259 mg/dL (75-99)
--- NOTE | 2020-06-19 18:25 | PN ---
PROGRESS NOTE Patient had a left foot big toe amputation yesterday. Today we have changed the dressing. Mild bleeding was noted. The dressing was changed. We will change the dressing every other day. Continue with the nonweightbearing and continue with IV antibiotics. MMODL / IJN: [id number] /
--- NOTE | 2020-06-19 18:45 | PN ---
PROGRESS NOTE DATE OF SERVICE: 06/19/2020 REASON FOR FOLLOWUP: Left big toe infection. INTERVAL HISTORY: The patient is currently afebrile. She is breathing comfortably, however, complaining of pain to the left foot amputation site. No chest pain. No abdominal pain. No diarrhea. PHYSICAL EXAMINATION: Blood pressure 105/57, pulse of 71, temperature 97.6. She is 91% on room air. General description is an elderly female lying in bed in no distress. Respiratory system: Unlabored breathing, clear to auscultation anteriorly. Heart S1, S2. Regular rate and rhythm. ABDOMEN: Soft, no tenderness. Left foot with dressing. No obvious drainage on the dressing. LABS: No new labs have been obtained today. All cultures currently pending. DIAGNOSTIC IMPRESSION AND PLAN: Patient with left big toe osteomyelitis status post amputation. All cultures will be followed. Antibiotic adjusted further if needed. Continue supportive care. MMODL / IJN: [id number] /
[2020-06-19 19:58] LABS: Glucose,Whole Blood 128 mg/dL (75-99)
[2020-06-19] MEDS: PREGABALIN 75 MG CAP PO SCH (20:03)
[2020-06-19] MEDS: ATORVASTATIN 20 MG TAB PO SCH (20:03)
[2020-06-20] MEDS: AMPICILLIN-SULBACTAM 1.5 GM in SODIUM CHLORIDE 0.9% 50 ML IVPB SCH ×5 (00:45→22:53)
[2020-06-20 01:21] LABS: Hemoglobin A1C 8.8 % (4.0-6.0)
[2020-06-20 07:48] LABS: Glucose,Whole Blood 185 mg/dL (75-99)
[2020-06-20] MEDS: INSULIN DETEMIR (LEVEMIR) 100 UNIT/ML SYR SQ SCH ×2 (08:33→20:11)
[2020-06-20] MEDS: INSULIN ASPART (NovoLOG) 100 UNIT/ML VIAL SQ SCH ×7 (08:33→20:14)
[2020-06-20] MEDS: VANCOMYCIN 1,500 MG in SODIUM CHLORIDE 0.9% 250 ML IVPB SCH ×2 (08:34→20:13)
[2020-06-20] MEDS: LOSARTAN 50 MG TAB PO SCH (08:34)
[2020-06-20] MEDS: CITALOPRAM HYDROBROMIDE 20 MG TAB PO SCH (08:34)
[2020-06-20] MEDS: FAMOTIDINE 20 MG TAB PO SCH (08:34)
[2020-06-20] MEDS: METOPROLOL SUCCINATE (ER) 50 MG TAB.ER.24H PO SCH (08:34)
[2020-06-20] MEDS: ASPIRIN 81 MG PO SCH (08:34)
[2020-06-20] MEDS: amLODIPine 10 MG TAB PO SCH (08:34)
[2020-06-20] MEDS ORDERED: IPRATROPIUM-ALBUTEROL 3 ML NEB INHALATION PRN (08:46)
[2020-06-20] MEDS ORDERED: BUDESONIDE 1 MG/2 ML NEBU INHALATION STA (08:46)
[2020-06-20 09:24] LABS: African American GFR (CKD) 65.6 (60.0-200.0); Non-African American GFR(CKD) 56.6 (60.0-200.0)
[2020-06-20] MEDS: methylPREDNISolone SOD SUCCI 125 MG/2 ML VIAL IV SCH ×3 (09:39→17:36)
[2020-06-20] MEDS: AZITHROMYCIN 500 MG TAB PO SCH (09:39)
--- NOTE | 2020-06-20 09:58 | XR ---
EXAMINATION TYPE: XR chest 2V DATE OF EXAM: 06/20/2020 COMPARISON: Chest x-ray 04/10/2020 HISTORY: Wheezing TECHNIQUE: Frontal and lateral views of the chest are obtained. FINDINGS: There is no pleural effusion or pneumothorax seen. Question some minimal strand-like densi ties at the posterior lung base seen on the lateral exam, there is bronchial wall thickening. The car diac silhouette size is within normal limits. There are prominent lung volumes, flattening the hemid iaphragms suggesting underlying COPD. Patient is post median sternotomy. The aorta is dense. The osse ous structures are intact. IMPRESSION: Question some basilar atelectasis or scarring, correlate for bronchitis, reactive airways disease
[2020-06-20] MEDS: IPRATROPIUM-ALBUTEROL 3 ML NEB INHALATION SCH ×3 (11:38→19:46)
[2020-06-20 12:10] LABS: Glucose,Whole Blood 74 mg/dL (75-99)
[2020-06-20] MEDS: MORPHINE SULFATE 4 MG/ML SYRINGE IV PRN ×2 (12:18→22:53)
--- NOTE | 2020-06-20 13:54 | P.PN ---
Subjective Progress Note Date: 06/20/20 This is a 70-year-old patient of Dr. Sanderson with past medical history of asthma, CHF, COPD, CVA, diabetes, hyperlipidemia, hypertension, rheumatoid arthritis indication of the left great toe. And a chronic ulceration to the left great toe and left lateral foot. Patient is a former nonsmoker who stopped smoking approximately 27 years ago. She drinks alcohol occasionally. Denies any illicit drug use or marijuana. The patient presented to the emergency room for a nonhealing ulceration to the left great toe and left lateral foot. Patient has been seen by the wound care center and Dr. Gregory for the last few weeks. Dr. Gregory did perform a run off which did show some blockage to the left lower extremity. However due to the location of the blockage she was unable to do any intervention at this time. Patient has been utilizing multiple advanced testing. On Friday patient was seen by her home health care nurse who was concerned about the increased drainage to the site and instructed her to go to the emergency room. In the emergency room a x-ray was performed which did show osteo-myelitis to the left great toe. At this time patient is resting comfortably in bed with no acute distress. Patient has dressing to the left foot. Upon examination the right foot shows dried calloused area to the distal portion of the right great toe with redness to the periwound. The right lateral foot ulceration appears to be epithelialized. ABC 7.5, hemoglobin 13.8, platelets 288, potassium 4.4, BUN 14, creatinine 0.59, glucose 221. 06/18: Is found sitting up in a chair without any complaints or concerns. Patient is in no acute distress. She is scheduled to have a left great toe amputation today around 12. Patient may require antibiotics for approximately 1 week post amputation she should be able to go home within the next few days. Patient remains afebrile, blood pressure 146/77, pulse rate 72, respirations 18 nonlabored, pulse ox 94% on room air. Sugars are elevated in the 20s to 260s. 06/19: She is status post left great toe amputation as of yesterday with Dr. Gregory. Pain is currently controlled. She denies any fever or chills. Patient has been afebrile, heart rate 64, blood pressure 117/65, pulse ox 100% on room air. Blood sugars have been elevated running between 206 and 302. Wound culture is Tomasa species not albicans. Blood culture no growth at 48 hours. Tissue cultures obtained during surgery are in process. The patient is followed by Dr. Mccabe and currently on Unasyn and vancomycin. Patient's last A1c was 9 on March 2020. Repeat A1c ordered. 06/20: 11 A1c is8.8. Blood sugars have been running between 128 and 259. Wound culture remains in process. Patient is on Unasyn and vancomycin followed by Dr. Mccabe. She has been afebrile, heart rate 88, blood pressure 132/80, pulse ox 90% on room air. Patient is complaining of wheezing this morning. We have added in Solu-Medrol and consult with Dr. Rojas, her pulmonary medicine doctor. We have also increased insulins. Review Of Systems: Constitutional: No fever, no chills, no night sweats. No weight change. No weakness, fatigue or lethargy. No daytime sleepiness. EENT: No headache. No blurred vision or double vision, no loss of vision. No loss of Hearing, no ringing in the ears, no dizziness. No nasal drainage or congestion. No epistaxis. No sore throat. Lungs: Reports shortness of breath, cough, no sputum production. Reports wheezing. Cardiovascular: No chest pain, no lower extremity edema. No palpitations. No paroxysmal nocturnal dyspnea. No orthopnea. No lightheadedness or dizziness. No syncopal episodes. Abdominal: no abdominal discomfort. No nausea, vomiting. no diarrhea. No constipation. No bloody or tarry stools. no loss of appetite. Genitourinary: No dysuria, increased frequency, urgency. No urinary retention. Musculoskeletal: No myalgias. No muscle weakness, no gait dysfunction, no frequent falls. No back pain. No neck pain. Integumentary: Left great toe wounds, no lesions. No rash or pruritus. No unusual bruising. No change in hair or nails. Neurologic: No aphasia. No facial droop. No change in mentation. No head injury. No headache. No paralysis. No paresthesia. Psychiatric: No depression. No anxiety. No mood swings. Endocrine: No abnormal blood sugars. No weight change. No excessive sweating or thirst. Physical examination General Appearance: Alert, cooperative, no distress, appears stated age. Neck HEENT: Supple, no lymphadenopathy, no thyroid enlargement, no carotid bruits. Lungs: Lung sounds diminished with poor air exchange, mild accessory muscle usage. Chest Wall: Chest wall normal expansion with deep inspiration no tenderness and no deformity was found on exam, no costochondral pain or discomfort. Heart: Regular rate and rhythm, S1, S2 normal, no murmur, rub or gallop. Back: Symmetric, no curvature, ROM normal, no CVA tenderness. Abdomen: Soft, non-tender, no rebound or rigidity, no hepatosplenomegaly. Extremities: Extremities normal, atraumatic, no cyanosis or edema. Pulses: 2+ and symmetric. Skin: Diabetic foot ulcer right lateral foot, dressing in place to the right great toe. Previous amputation to the right great toe. Skin color, texture, tugor normal, no rashes or lesions. Neurologic: Alert oriented x3 cranial nerves II through XII intact, no motor deficit, no abnormal balance or gait Assessment and plan 1. Diabetic foot ulcer left great toe with osteomyelitis status post amputation. Consult vascular surgery, consult infectious disease. Local wound care as prescribed by Dr. Gregory. 2. osteomyelitis. Consult infectious disease. Unasyn 1.5 g every 6 hours IV piggyback, vancomycin, blood cultures and wound culture ordered. 3. Diabetes mellitus type II uncontrolled with hyperglycemia. Continue Levemir increase to 30 units twice a day, NovoLog 23 units before meals 3 times a day continue with sliding scale as needed 4. Peripheral vascular disease status post stent to right lower extremity and right great toe amputation 5. Chronic diastolic heart failure metoprolol 50 mg by mouth daily 6. Hyperlipidemia. Lipitor 40 mg by mouth at bedtime 7. Hypertension. Norvasc 10 mg by mouth, Cozaar 50 mg by mouth daily 8. COPD, stable. 9. Recurrent Depression. Celexa 40 mg by mouth at bedtime 10. Asthma exacerbation, possible COPD exacerbation. Patient started on Solu- Medrol 60 mg IV every 6 hours, DuoNeb treatments 4 times daily and every 2 hours as needed, Pulmicort twice daily, pulmonary medicine consult. 11. GI prophylaxis Pepcid 20 mg by mouth twice a day 11. DVT prophylaxis. Pneumatic compression garment Patient will be admitted for a minimum of 2 nights day. CODE STATUS: Full code Discharge plan: home Impression and plan of care have been directed as dictated by the signing physician. Emily Higginbotham nurse practitioner acting as scribe for signing physic scooby. Objective - Vital Signs Vital signs: Vital Signs Temp 98.4 F 06/20/20 00:37 Pulse 75 06/20/20 00:37 Resp 16 06/20/20 00:37 BP 128/55 06/20/20 00:37 Pulse Ox 92 L 06/20/20 07:47 Intake & Output 06/19/20 06/20/20 06/20/20 18:59 06:59 18:59 Other: Voiding Method Bedside Commode Bedside Commode # Voids 3 2 - Labs CBC & Chem 7: 06/18/20 07:00 06/20/20 05:45 Labs: Abnormal Lab Results - Last 24 Hours (Table) 06/19/20 06/19/20 06/19/20 Range/Units 06:37 11:20 16:17 POC Glucose (mg/dL) 206 H 259 H (75-99) mg/dL Hemoglobin A1c 8.8 H (4.0-6.0) % 06/19/20 06/20/20 Range/Units 19:56 07:46 POC Glucose (mg/dL) 128 H 185 H (75-99) mg/dL Hemoglobin A1c (4.0-6.0) % Microbiology - Last 24 Hours (Table) 06/18/20 16:01 Gram Stain - Preliminary Toe - Left First Tissue Culture - Preliminary Coagulase Negative Staph Coagulase Negative Staph#2 06/16/20 16:00 Blood Culture - Preliminary Blood No Growth after 72 hours 06/16/20 15:27 Blood Culture - Preliminary Blood No Growth after 72 hours 06/18/20 16:01 Anaerobic Culture - Preliminary Toe - Left First
--- NOTE | 2020-06-20 14:18 | P.CNPUL ---
History of Present Illness Consult date: 06/20/20 Reason for consult: dyspnea Chief complaint: Wheezing coughing History of present illness: 70-year-old white female patient of Dr. Sanderson with past medical history of mild intermittent bronchial asthma on Dilan Kay, patient follows with Dr. Mcqueen on an outpatient basis and the pulmonary clinic. She has a history of type 2 diabetes mellitus, hypertension, previous NM, coronary arteriosclerosis, degenerative joint disease, previous history of smoking, peripheral vascular disease with history of amputation of 2 toes on her right foot. Patient came in on 06/16/2020 for evaluation of chronic nonhealing ulceration to the left great toe and left lateral foot. Patient also Dr. Gregory in the wound clinic and underwent a runoff that showed some blockage to the left lower extremity, however intervention was not feasible related to the location of the blockage. On 06/18/2020 patient underwent a left great toe amputation. She is currently on antibiotics, wound culture showed Tomasa species, and left great toe tissue culture showed coagulase-negative staph, patient is on a combination of azithromycin, Unasyn and vancomycin, Dr. Mccabe from infectious disease is following. Patient was noted to be increasingly wheezy and coughing, she is having an acute asthma exacerbation. Chest x-ray today showed some non-questionable basilar atelectasis or scarring, reactive airways disease. Patient was started on IV steroids, breathing treatments in the form of DuoNeb, Pulmicort, were asked to see the patient in consultation Review of Systems All systems: negative Constitutional: Denies chills, Denies fever Eyes: denies blurred vision, denies pain Ears, nose, mouth and throat: Denies headache, Denies sore throat Cardiovascular: Denies chest pain, Denies shortness of breath Respiratory: Reports congestion, Reports cough, Reports dyspnea, Reports wheezing Gastrointestinal: Denies abdominal pain, Denies diarrhea, Denies nausea, Denies vomiting Genitourinary: Denies dysuria, Denies hematuria Musculoskeletal: Denies myalgias Integumentary: Denies pruritus, Denies rash Neurological: Denies numbness, Denies weakness Psychiatric: Denies anxiety, Denies depression Endocrine: Denies fatigue, Denies weight change Past Medical History Past Medical History: Asthma, Heart Failure, COPD, CVA/TIA, Diabetes Mellitus, Hyperlipidemia, Hypertension, Pneumonia, Rheumatoid Arthritis (RA) Additional Past Medical History / Comment(s): ARTHRITIS, STROKE 2013. UTI-,RT GREAT TOE WOUND. Last Myocardial Infarction Date:: 2014 History of Any Multi-Drug Resistant Organisms: None Reported Past Surgical History: Adenoidectomy, Appendectomy, Tonsillectomy, Tubal Ligation Additional Past Surgical History / Comment(s): Open heart on April 13 2015. Right great toe amputation 2014. stent in right leg above knee Past Anesthesia/Blood Transfusion Reactions: Previous Problems w/ Anesthesia Additional Past Anesthesia/Blood Transfusion Reaction / Comment(s): diff breathing Past Psychological History: No Psychological Hx Reported Smoking Status: Former smoker Past Alcohol Use History: None Reported Additional Past Alcohol Use History / Comment(s): STARTED SMOKING AT AGE 17, SMOKED 1 OR MORE PPD, QUIT, QUIT 27 YEARS AGO, MAY HAVE A DRINK AT A SPECIAL OCC. She denies any medical marijuana, marijuana, street drug use. 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 She is currently living at home with her , one cat, 2 dogs. She has recent travel in [facility] only. Past Drug Use History: None Reported - Past Family History Father Family Medical History: Coronary Artery Disease (CAD), CVA/TIA, Diabetes Mellitus Mother Additional Family Medical History / Comment(s): "spot on the lung" Medications and Allergies Home Medications Medication Instructions Recorded Confirmed Type Metoprolol Succinate [Toprol XL] 50 mg PO DAILY 05/02/15 06/16/20 History Nitroglycerin Sl Tabs [Nitrostat] 0.4 mg SL Q5M PRN 05/02/15 06/16/20 History Aspirin 81 mg PO DAILY 04/15/17 06/16/20 History Simvastatin [Zocor] 40 mg PO HS 04/15/17 06/16/20 History amLODIPine [Norvasc] 10 mg PO DAILY 04/15/17 06/16/20 History Abatacept [Orencia] 125 mg SQ WE 05/07/19 06/16/20 History Albuterol Sulfate [Proair Hfa] 2 puff INHALATION RT-Q4H PRN 06/16/20 06/16/20 History Citalopram Hydrobromide [CeleXA] 40 mg PO DAILY 06/16/20 06/16/20 History Insulin Aspart [NovoLOG Flexpen] 20 units SQ AC-TID 06/16/20 06/16/20 History Insulin Glargine,Hum.rec.anlog 20 unit SQ BID 06/16/20 06/16/20 History [Lantus Solostar] Ipratropium/Albuterol Sulfate 2 puff INHALATION RT-DAILY 06/16/20 06/16/20 History [Combivent Respimat Inhaler] Losartan [Cozaar] 50 mg PO DAILY 06/16/20 06/16/20 History Pregabalin [Lyrica] 75 mg PO HS 06/16/20 06/16/20 History traMADol HCL 50 mg PO TID PRN 06/16/20 06/16/20 History Allergies Allergy/AdvReac Type Severity Reaction Status Date / Time nickel Allergy Rash/Hives Verified 06/16/20 16:44 Physical Exam Vitals: Vital Signs Temp Pulse Pulse Resp BP BP Pulse Ox 06/20/20 11:50 94 18 06/20/20 11:38 88 18 06/20/20 08:00 98.1 F 77 16 132/80 90 L 06/20/20 07:47 92 L 06/20/20 00:37 98.4 F 75 16 128/55 88 L 06/19/20 20:00 16 06/19/20 19:09 98.0 F 78 15 131/66 90 L Intake and Output 06/19/20 06/20/20 06/20/20 22:59 06:59 14:59 Other: Voiding Method Bedside Commode # Voids 3 2 GENERAL EXAM: Alert, very pleasant, 70-year-old white female, on room air, with a pulse ox of 90-92% comfortable in no apparent distress. HEAD: Normocephalic/atraumatic. EYES: Normal reaction of pupils, equal size. Conjunctiva pink, sclera white. NOSE: Clear with pink turbinates. THROAT: No erythema or exudates. NECK: No masses, no JVD, no thyroid enlargement, no adenopathy. CHEST: No chest wall deformity. Symmetrical expansion. LUNGS: Equal air entry with audible diffuse wheezes, congested cough CVS: Regular rate and rhythm, normal S1 and S2, no gallops, no murmurs, no rubs ABDOMEN: Soft, nontender. No hepatosplenomegaly, normal bowel sounds, no guarding or rigidity. EXTREMITIES: No clubbing, no edema, no cyanosis, 2+ pulses and upper and lower extremities. Patient has left great toe amputated, incision is covered with the dressing, and Terence wrap, patient also has a nonhealing wound on the lateral aspect of the left foot. 2 missing toes on the right foot from previous history of amputation MUSCULOSKELETAL: Muscle strength and tone normal. SPINE: No scoliosis or deformity SKIN: No rashes CENTRAL NERVOUS SYSTEM: Alert and oriented -3. No focal deficits, tone is normal in all 4 extremities. PSYCHIATRIC: Alert and oriented -3. Appropriate affect. Intact judgment and insight. Results - Laboratory Findings CBC and BMP: 06/18/20 07:00 06/20/20 05:45 PT/INR, D-dimer PT 9.6 sec (9.0-12.0) 06/16/20 15:27 INR 0.9 (<1.2) 06/16/20 15:27 Abnormal lab findings: Abnormal Labs 06/16/20 06/16/20 06/17/20 15:27 23:15 06:43 RBC MCHC Eosinophils # Sodium 136 L Est GFR (CKD-EPI)NonAf Glucose 221 H POC Glucose (mg/dL) 264 H 203 H Hemoglobin A1c Calcium 06/17/20 06/17/20 06/17/20 11:15 17:17 20:36 RBC MCHC Eosinophils # Sodium Est GFR (CKD-EPI)NonAf Glucose POC Glucose (mg/dL) 213 H 230 H 269 H Hemoglobin A1c Calcium 06/18/20 06/18/20 06/18/20 06:49 06:53 07:00 RBC 4.05 L MCHC 31.9 L Eosinophils # 0.39 H Sodium Est GFR (CKD-EPI)NonAf Glucose 226 H POC Glucose (mg/dL) 227 H Hemoglobin A1c Calcium 8.2 L 06/18/20 06/18/20 06/18/20 11:36 15:21 16:31 RBC MCHC Eosinophils # Sodium Est GFR (CKD-EPI)NonAf Glucose POC Glucose (mg/dL) 192 H 151 H 147 H Hemoglobin A1c Calcium 06/18/20 06/19/20 06/19/20 20:05 06:37 07:22 RBC MCHC Eosinophils # Sodium Est GFR (CKD-EPI)NonAf Glucose POC Glucose (mg/dL) 302 H 298 H Hemoglobin A1c 8.8 H Calcium 06/19/20 06/19/20 06/19/20 11:20 16:17 19:56 RBC MCHC Eosinophils # Sodium Est GFR (CKD-EPI)NonAf Glucose POC Glucose (mg/dL) 206 H 259 H 128 H Hemoglobin A1c Calcium 06/20/20 06/20/20 06/20/20 05:45 07:46 12:08 RBC MCHC Eosinophils # Sodium Est GFR (CKD-EPI)NonAf 56.6 L Glucose POC Glucose (mg/dL) 185 H 74 L Hemoglobin A1c Calcium - Diagnostic Findings Chest x-ray: report reviewed, image reviewed Assessment and Plan Plan: Assessment: #1. Acute exacerbation of chronic bronchial asthma and COPD, mild intermittent bronchial asthma #2. Nonhealing wound on the left great toe and left foot related to osteom yelitis, status post left great toe amputation on 06/18/2020 #3. Status post amputation of 2 digits on right foot #4. Diabetes mellitus type 2, poorly controlled with hyperglycemia #5. Peripheral vascular disease status post stenting to the right lower extremity #6. History of CHF with diastolic dysfunction #7. Hyperlipidemia #8. Former smoker #9. Degenerative disc disease Plan: Continue IV steroids, continue Pulmicort, we will add performance, continue DuoNeb [id number], patient is already on antibiotics per ID service, chest x-ray has been reviewed showing some atelectasis or scarring. Treat the patient for acute exacerbation of chronic bronchial asthma/COPD. We'll continue to follow I performed a history & physical examination of the patient and discussed their management with my nurse practitioner, Debo Young. I reviewed the nurse practitioner's note and agree with the documented findings and plan of care. Lung sounds are positive for diffuse wheezes throughout the lung briscoe. The findings and the impression was discussed with the patient. I attest to the documentation by the nurse practitioner. Time with Patient: Greater than 30
[2020-06-20 14:52] LABS: Glucose,Whole Blood 329 mg/dL (75-99)
[2020-06-20 17:09] LABS: Glucose,Whole Blood 387 mg/dL (75-99)
[2020-06-20] MEDS: FORMOTEROL FUMARATE 20 MCG/2 ML NEBU INHALATION SCH (19:46)
[2020-06-20] MEDS: BUDESONIDE 1 MG/2 ML NEBU INHALATION SCH (19:46)
[2020-06-20 20:04] LABS: Glucose,Whole Blood 383 mg/dL (75-99)
[2020-06-20] MEDS: ATORVASTATIN 20 MG TAB PO SCH (20:14)
[2020-06-20] MEDS: PREGABALIN 75 MG CAP PO SCH (20:14)
--- NOTE | 2020-06-20 23:13 | PN ---
PROGRESS NOTE DATE OF SERVICE: 06/20/2020 REASON FOR FOLLOWUP: Left big toe osteomyelitis. INTERVAL HISTORY: The patient is currently afebrile. The patient is complaining of shortness of breath and wheezing. Denies having any chest pain. She did have a cough, not bringing up any sputum. No nausea, no vomiting. No abdominal pain and no worsening pain to the left big toe. PHYSICAL EXAMINATION: Blood pressure 141/72 with a pulse of 93, temperature 97.6. She is 91% on room air. General description is an elderly female lying in bed in no distress. RESPIRATORY SYSTEM: Unlabored breathing with decreased intensity of breath sounds. No wheeze. HEART: S1, S2. Regular rate and rhythm. ABDOMEN: Soft. No tenderness. Left foot is currently dressed. No obvious drainage on the dressing. LABS: Local culture with a coagulase-negative Staph. DIAGNOSTIC IMPRESSION AND PLAN: Patient with left big toe osteomyelitis with coagulase-negative Staphylococcus. Patient is covered with vancomycin; to continue perioperatively while monitoring clinical course closely. Continue supportive care. MMODL / IJN: [id number] /
[2020-06-21] MEDS: methylPREDNISolone SOD SUCCI 125 MG/2 ML VIAL IV SCH ×4 (00:29→17:35)
[2020-06-21] MEDS: AMPICILLIN-SULBACTAM 1.5 GM in SODIUM CHLORIDE 0.9% 50 ML IVPB SCH ×3 (05:48→17:35)
[2020-06-21] MEDS: MORPHINE SULFATE 4 MG/ML SYRINGE IV PRN (05:50)
[2020-06-21] MEDS ORDERED: VANCOMYCIN TROUGH DUE 1 EACH MISC MISCELLANE ONE (06:00)
[2020-06-21 07:22] LABS: Glucose,Whole Blood 421 mg/dL (75-99)
[2020-06-21] MEDS: FORMOTEROL FUMARATE 20 MCG/2 ML NEBU INHALATION SCH ×2 (07:27→19:34)
[2020-06-21] MEDS: IPRATROPIUM-ALBUTEROL 3 ML NEB INHALATION SCH ×4 (07:27→19:23)
[2020-06-21] MEDS: BUDESONIDE 1 MG/2 ML NEBU INHALATION SCH ×2 (07:27→19:24)
[2020-06-21] MEDS: METOPROLOL SUCCINATE (ER) 50 MG TAB.ER.24H PO SCH (08:22)
[2020-06-21] MEDS: AZITHROMYCIN 500 MG TAB PO SCH (08:22)
[2020-06-21] MEDS: amLODIPine 10 MG TAB PO SCH (08:22)
[2020-06-21] MEDS: INSULIN DETEMIR (LEVEMIR) 100 UNIT/ML SYR SQ SCH ×2 (08:23→20:51)
[2020-06-21] MEDS: INSULIN ASPART (NovoLOG) 100 UNIT/ML VIAL SQ SCH ×7 (08:23→20:51)
[2020-06-21] MEDS: LOSARTAN 50 MG TAB PO SCH (08:23)
[2020-06-21] MEDS: FAMOTIDINE 20 MG TAB PO SCH (08:23)
[2020-06-21] MEDS: CITALOPRAM HYDROBROMIDE 20 MG TAB PO SCH (08:23)
[2020-06-21] MEDS: ASPIRIN 81 MG PO SCH (08:23)
[2020-06-21] MEDS: VANCOMYCIN 1,500 MG in SODIUM CHLORIDE 0.9% 250 ML IVPB SCH (08:23)
[2020-06-21 10:26] LABS: Basophils # (A) 0.02 X 10*3/uL (0.00-0.10); Basophils % (A) 0.2 %; Eosinophils # (A) 0 X 10*3/uL (0.04-0.35); Eosinophils % (A) 0 %; HCT 37.6 % (37.2-46.3); Lymphocytes # (A) 0.68 X 10*3/uL (0.90-5.00); Lymphocytes % (A) 6.8 %; MCH 30.5 pg (27.0-32.0); MCHC 31.9 g/dL (32.0-37.0); MCV 95.4 fL (80.0-97.0); Mean Platelet Volume 10.2 fL (9.5-12.2); Neutrophils # (A) 9.02 X 10*3/uL (1.80-7.70); Neutrophils % (A) 90.8 %; Platelet Count 269 X 10*3/uL (140-440); RBC 3.94 X 10*6/uL (4.10-5.20); RDW 13.5 % (11.5-14.5); WBC 9.94 X 10*3/uL (4.50-10.00)
[2020-06-21 12:14] LABS: Glucose,Whole Blood 371 mg/dL (75-99)
[2020-06-21] MEDS ORDERED: NON FORMULARY DRUG (Abatacept [Orencia] 125 MG/ML Syringe) SQ SCH (12:45)
[2020-06-21] MEDS ORDERED: ORENCIA 125 MG/ML SQ SCH (14:00)
--- NOTE | 2020-06-21 14:05 | P.PN ---
Subjective Progress Note Date: 06/21/20 This is a 70-year-old patient of Dr. Sanderson with past medical history of asthma, CHF, COPD, CVA, diabetes, hyperlipidemia, hypertension, rheumatoid arthritis indication of the left great toe. And a chronic ulceration to the left great toe and left lateral foot. Patient is a former nonsmoker who stopped smoking approximately 27 years ago. She drinks alcohol occasionally. Denies any illicit drug use or marijuana. The patient presented to the emergency room for a nonhealing ulceration to the left great toe and left lateral foot. Patient has been seen by the wound care center and Dr. Gregory for the last few weeks. Dr. Gregory did perform a run off which did show some blockage to the left lower extremity. However due to the location of the blockage she was unable to do any intervention at this time. Patient has been utilizing multiple advanced testing. On Friday patient was seen by her home health care nurse who was concerned about the increased drainage to the site and instructed her to go to the emergency room. In the emergency room a x-ray was performed which did show osteo-myelitis to the left great toe. At this time patient is resting comfortably in bed with no acute distress. Patient has dressing to the left foot. Upon examination the right foot shows dried calloused area to the distal portion of the right great toe with redness to the periwound. The right lateral foot ulceration appears to be epithelialized. ABC 7.5, hemoglobin 13.8, platelets 288, potassium 4.4, BUN 14, creatinine 0.59, glucose 221. 06/18: Is found sitting up in a chair without any complaints or concerns. Patient is in no acute distress. She is scheduled to have a left great toe amputation today around 12. Patient may require antibiotics for approximately 1 week post amputation she should be able to go home within the next few days. Patient remains afebrile, blood pressure 146/77, pulse rate 72, respirations 18 nonlabored, pulse ox 94% on room air. Sugars are elevated in the 20s to 260s. 06/19: She is status post left great toe amputation as of yesterday with Dr. Gregory. Pain is currently controlled. She denies any fever or chills. Patient has been afebrile, heart rate 64, blood pressure 117/65, pulse ox 100% on room air. Blood sugars have been elevated running between 206 and 302. Wound culture is Tomasa species not albicans. Blood culture no growth at 48 hours. Tissue cultures obtained during surgery are in process. The patient is followed by Dr. Mccabe and currently on Unasyn and vancomycin. Patient's last A1c was 9 on March 2020. Repeat A1c ordered. 06/20: A1c is 8.8. Blood sugars have been running between 128 and 259. Wound culture remains in process. Patient is on Unasyn and vancomycin followed by Dr. Mccabe. She has been afebrile, heart rate 88, blood pressure 132/80, pulse ox 90% on room air. Patient is complaining of wheezing this morning. We have added in Solu-Medrol and consult with Dr. Rojas, her pulmonary medicine doctor. We have also increased insulins. 06/21: Patient is complaining of left leg pain which is not controlled with tramadol which will be increased to 100 mg 3 times daily and also Giltner will be available if patient would like to try this for pain control. She denies having any abdominal pain and no diarrhea. Blood sugars are quite elevated and insulin will be adjusted again today with Levemir to 35 units twice daily and scheduled NovoLog to 28 units 3 times daily with meals. Wound culture is coag-negative staph 2, diphtheroid species. Patient is continued on Unasyn and vancomycin. Review Of Systems: Constitutional: No fever, no chills, no night sweats. No weight change. No weakness, fatigue or lethargy. No daytime sleepiness. EENT: No headache. No blurred vision or double vision, no loss of vision. No loss of Hearing, no ringing in the ears, no dizziness. No nasal drainage or congestion. No epistaxis. No sore throat. Lungs: Reports shortness of breath, cough, no sputum production. Reports wheezing. Cardiovascular: No chest pain, no lower extremity edema. No palpitations. No paroxysmal nocturnal dyspnea. No orthopnea. No lightheadedness or dizziness. No syncopal episodes. Abdominal: no abdominal discomfort. No nausea, vomiting. no diarrhea. No constipation. No bloody or tarry stools. no loss of appetite. Genitourinary: No dysuria, increased frequency, urgency. No urinary retention. Musculoskeletal: No myalgias. No muscle weakness, no gait dysfunction, no frequent falls. No back pain. No neck pain. Left leg pain. Integumentary: Left great toe wounds, no lesions. No rash or pruritus. No unusual bruising. No change in hair or nails. Neurologic: No aphasia. No facial droop. No change in mentation. No head injury. No headache. No paralysis. No paresthesia. Psychiatric: No depression. No anxiety. No mood swings. Endocrine: No abnormal blood sugars. No weight change. No excessive sweating or thirst. Physical examination General Appearance: Alert, cooperative, no distress, appears stated age. Neck HEENT: Supple, no lymphadenopathy, no thyroid enlargement, no carotid bruits. Lungs: Lung sounds diminished with poor air exchange, mild accessory muscle usage. Chest Wall: Chest wall normal expansion with deep inspiration no tenderness and no deformity was found on exam, no costochondral pain or discomfort. Heart: Regular rate and rhythm, S1, S2 normal, no murmur, rub or gallop. Back: Symmetric, no curvature, ROM normal, no CVA tenderness. Abdomen: Soft, non-tender, no rebound or rigidity, no hepatosplenomegaly. Extremities: Extremities normal, atraumatic, no cyanosis or edema. Pulses: 2+ and symmetric. Skin: Diabetic foot ulcer right lateral foot, dressing in place to the right great toe. Previous amputation to the right great toe. Skin color, texture, tugor normal, no rashes or lesions. Neurologic: Alert oriented x3 cranial nerves II through XII intact, no motor deficit, no abnormal balance or gait Assessment and plan 1. Diabetic foot ulcer left great toe with osteomyelitis status post amputation. Consult vascular surgery, consult infectious disease. Local wound care as prescribed by Dr. Gregory. Tramadol increased to 100 mg 3 times daily and added Giltner 5 one every 4 hours as needed. Consult with PT and OT added. 2. Osteomyelitis. Consult infectious disease. Unasyn 1.5 g every 6 hours IV piggyback, vancomycin, blood cultures and wound culture ordered. 3. Diabetes mellitus type II uncontrolled with hyperglycemia. Continue Levemir increase to 35 units twice a day, NovoLog 28 units before meals 3 times a day continue with sliding scale as needed 4. Peripheral vascular disease status post stent to right lower extremity and right great toe amputation 5. Chronic diastolic heart failure metoprolol 50 mg by mouth daily 6. Hyperlipidemia. Lipitor 40 mg by mouth at bedtime 7. Hypertension. Norvasc 10 mg by mouth, Cozaar 50 mg by mouth daily 8. COPD, stable. 9. Recurrent Depression. Celexa 40 mg by mouth at bedtime 10. Asthma exacerbation, possible COPD exacerbation. Patient started on Solu- Medrol 60 mg IV every 6 hours, DuoNeb treatments 4 times daily and every 2 hours as needed, Pulmicort twice daily, pulmonary medicine consult. 11. GI prophylaxis Pepcid 20 mg by mouth twice a day 11. DVT prophylaxis. Pneumatic compression garment Patient will be admitted for a minimum of 2 nights day. CODE STATUS: Full code Discharge plan: home Impression and plan of care have been directed as dictated by the signing physician. Emily Higginbotham nurse practitioner acting as scribe for signing physician. Objective - Vital Signs Vital signs: Vital Signs Temp 97.7 F 06/21/20 02:00 Pulse 88 06/21/20 07:51 Resp 18 06/21/20 07:51 BP 132/73 06/21/20 02:00 Pulse Ox 93 L 06/21/20 07:27 Intake & Output 06/20/20 06/21/20 06/21/20 18:59 06:59 18:59 Other: Voiding Method Bedside Commode # Voids 3 2 - Labs CBC & Chem 7: 06/21/20 06:25 06/20/20 05:45 Labs: Abnormal Lab Results - Last 24 Hours (Table) 06/20/20 06/20/20 06/20/20 Range/Units 05:45 12:08 14:50 Est GFR (CKD-EPI)NonAf 56.6 L (60.0-200.0) POC Glucose (mg/dL) 74 L 329 H (75-99) mg/dL 06/20/20 06/20/20 06/21/20 Range/Units 17:06 20:02 07:21 Est GFR (CKD-EPI)NonAf (60.0-200.0) POC Glucose (mg/dL) 387 H 383 H 421 H (75-99) mg/dL Microbiology - Last 24 Hours (Table) 06/16/20 16:00 Blood Culture - Preliminary Blood No Growth after 96 hours 06/16/20 15:27 Blood Culture - Preliminary Blood No Growth after 96 hours 06/18/20 16:01 Gram Stain - Preliminary Toe - Left First Tissue Culture - Preliminary Coagulase Negative Staph Coagulase Negative Staph#2
--- NOTE | 2020-06-21 14:14 | P.PN ---
Subjective Progress Note Date: 06/21/20 Principal diagnosis: Wheezing, coughing 70-year-old white female patient of Dr. Sanderson with past medical history of mild intermittent bronchial asthma on Dilan Kay, patient follows with Dr. Mcqueen on an outpatient basis and the pulmonary clinic. She has a history of type 2 diabetes mellitus, hypertension, previous RI, coronary arteriosclerosis, degenerative joint disease, previous history of smoking, peripheral vascular disease with history of amputation of 2 toes on her right foot. Patient came in on 06/16/2020 for evaluation of chronic nonhealing ulceration to the left great toe and left lateral foot. Patient also Dr. Gregory in the wound clinic and underwent a runoff that showed some blockage to the left lower extremity, however intervention was not feasible related to the location of the blockage. On 06/18/2020 patient underwent a left great toe amputation. She is currently on antibiotics, wound culture showed Tomasa species, and left great toe tissue culture showed coagulase-negative staph, patient is on a combination of azithromycin, Unasyn and vancomycin, Dr. Mccabe from infectious disease is following. Patient was noted to be increasingly wheezy and coughing, she is having an acute asthma exacerbation. Chest x-ray today showed some non-questionable basilar atelectasis or scarring, reactive airways disease. Patient was started on IV steroids, breathing treatments in the form of DuoNeb, Pulmicort, were asked to see the patient in consultation On 06/21/2020 patient seen in follow-up on medical surgical floor, she is not back to baseline, but breathing easier, less dyspneic and bronchospastic. She continues on high-dose IV steroids 60 mg every 6 hours, nebulized bronchodilators, azithromycin, Unasyn and vancomycin. She has had no fever or chills, no hemoptysis, no chest tightness, equal air entry bilaterally, she is currently on 2 L of oxygen pulse ox 91%. She is up to the bedside commode, her left foot with with a dressing, ID service is following. Objective - Vital Signs Vital signs: Vital Signs Temp 97.5 F L 06/21/20 08:00 Pulse 88 06/21/20 11:12 Resp 16 06/21/20 08:00 BP 145/74 06/21/20 08:00 Pulse Ox 91 L 06/21/20 08:00 Intake & Output 06/20/20 06/21/20 06/21/20 18:59 06:59 18:59 Other: Voiding Method Bedside Commode # Voids 3 2 - Exam GENERAL EXAM: Alert, very pleasant, 70-year-old white female, on room air, with a pulse ox of 90-92% comfortable in no apparent distress. HEAD: Normocephalic/atraumatic. EYES: Normal reaction of pupils, equal size. Conjunctiva pink, sclera white. NOSE: Clear with pink turbinates. THROAT: No erythema or exudates. NECK: No masses, no JVD, no thyroid enlargement, no adenopathy. CHEST: No chest wall deformity. Symmetrical expansion. LUNGS: Equal air entry with audible diffuse wheezes, congested cough CVS: Regular rate and rhythm, normal S1 and S2, no gallops, no murmurs, no rubs ABDOMEN: Soft, nontender. No hepatosplenomegaly, normal bowel sounds, no guarding or rigidity. EXTREMITIES: No clubbing, no edema, no cyanosis, 2+ pulses and upper and lower extremities. Patient has left great toe amputated, incision is covered with the dressing, and Terence wrap, patient also has a nonhealing wound on the lateral aspe ct of the left foot. 2 missing toes on the right foot from previous history of amputation MUSCULOSKELETAL: Muscle strength and tone normal. SPINE: No scoliosis or deformity SKIN: No rashes CENTRAL NERVOUS SYSTEM: Alert and oriented -3. No focal deficits, tone is normal in all 4 extremities. PSYCHIATRIC: Alert and oriented -3. Appropriate affect. Intact judgment and insight. - Labs CBC & Chem 7: 06/21/20 06:25 06/20/20 05:45 Labs: Abnormal Lab Results - Last 24 Hours (Table) 06/20/20 06/20/20 06/20/20 Range/Units 14:50 17:06 20:02 RBC (4.10-5.20) X 10*6/uL MCHC (32.0-37.0) g/dL Immature Gran # (0.00-0.04) X 10*3/uL Neutrophils # (1.80-7.70) X 10*3/uL Lymphocytes # (0.90-5.00) X 10*3/uL Monocytes # (0.20-1.00) X 10*3/uL Eosinophils # (0.04-0.35) X 10*3/uL POC Glucose (mg/dL) 329 H 387 H 383 H (75-99) mg/dL 06/21/20 06/21/20 06/21/20 Range/Units 06:25 07:21 12:13 RBC 3.94 L (4.10-5.20) X 10*6/uL MCHC 31.9 L (32.0-37.0) g/dL Immature Gran # 0.12 H (0.00-0.04) X 10*3/uL Neutrophils # 9.02 H (1.80-7.70) X 10*3/uL Lymphocytes # 0.68 L (0.90-5.00) X 10*3/uL Monocytes # 0.10 L (0.20-1.00) X 10*3/uL Eosinophils # 0 L (0.04-0.35) X 10*3/uL POC Glucose (mg/dL) 421 H 371 H (75-99) mg/dL Microbiology - Last 24 Hours (Table) 06/18/20 16:01 Anaerobic Culture - Preliminary Toe - Left First 06/18/20 16:01 Gram Stain - Final Toe - Left First Tissue Culture - Final Coagulase Negative Staph Coagulase Negative Staph#2 Diphtheroid species 06/16/20 16:00 Blood Culture - Preliminary Blood No Growth after 96 hours 06/16/20 15:27 Blood Culture - Preliminary Blood No Growth after 96 hours Assessment and Plan Plan: Assessment: #1. Acute exacerbation of chronic bronchial asthma and COPD, mild intermittent bronchial asthma #2. Nonhealing wound on the left great toe and left foot related to osteomyelitis, status post left great toe amputation on 06/18/2020 #3. Status post amputation of 2 digits on right foot #4. Diabetes mellitus type 2, poorly controlled with hyperglycemia #5. Peripheral vascular disease status post stenting to the right lower extremity #6. History of CHF with diastolic dysfunction #7. Hyperlipidemia #8. Former smoker #9. Degenerative disc disease Plan: Continue breathing treatments, continue IV steroids, and the medics per ID ser vice recommendations, patient is doing better, reading easier, not back to baseline, we'll continue current medical treatment, will follow I performed a history & physical examination of the patient and discussed their management with my nurse practitioner, Debo Young. I reviewed the nurse pra ctitioner's note and agree with the documented findings and plan of care. Lung sounds are positive for diffuse wheezes throughout the lung briscoe. The findings and the impression was discussed with the patient. I attest to the documentation by the nurse practitioner. Time with Patient: Less than 30
[2020-06-21] MEDS: traMADol 50 MG TAB PO PRN (14:22)
[2020-06-21 17:10] LABS: Glucose,Whole Blood 192 mg/dL (75-99)
--- NOTE | 2020-06-21 17:48 | PN ---
PROGRESS NOTE Tracee had infected left foot big toe. Patient went for left big toe amputation. Today the patient's dressing has been changed. Incision site has slight redness noted. Very minimal drainage. The patient will be on long-term antibiotic. PLAN: Continue with IV antibiotic, [id number] to the toes and change the dressing every 48 hours. MMODL / IJN: [id number] /
[2020-06-21 18:07] LABS: African American GFR (CKD) 58.5 (60.0-200.0); Albumin 4.2 g/dL (3.80-4.90); Albumin/Globulin Ratio 1.83 (1.60-3.17); Anion Gap 11.8 mmol/L (4.00-12.00); BUN/Creat Ratio 25.45 Ratio (12.00-20.00); Calcium 8.2 mg/dL (8.7-10.3); Carbon Dioxide 22.2 mmol/L (21.6-31.8); Globulin 2.3 g/dL (1.6-3.3); Non-African American GFR(CKD) 50.5 (60.0-200.0); Potassium 4.7 mmol/L (3.5-5.5); Total Bilirubin 0.2 mg/dL (0.2-1.2); Total Protein 6.5 g/dL (6.2-8.2)
[2020-06-21 20:34] LABS: Glucose,Whole Blood 191 mg/dL (75-99)
[2020-06-21] MEDS: PREGABALIN 75 MG CAP PO SCH (20:51)
[2020-06-21] MEDS: ATORVASTATIN 20 MG TAB PO SCH (20:51)
[2020-06-22] MEDS: HYDROcodone/APAP 5-325MG 1 EACH TAB PO PRN ×3 (00:09→17:57)
[2020-06-22] MEDS: AMPICILLIN-SULBACTAM 1.5 GM in SODIUM CHLORIDE 0.9% 50 ML IVPB SCH ×5 (00:09→23:34)
[2020-06-22] MEDS: methylPREDNISolone SOD SUCCI 125 MG/2 ML VIAL IV SCH ×3 (00:09→12:28)
[2020-06-22] MEDS: VANCOMYCIN 1,500 MG in SODIUM CHLORIDE 0.9% 250 ML IVPB SCH ×2 (00:10→17:29)
--- NOTE | 2020-06-22 01:57 | PN ---
PROGRESS NOTE DATE OF SERVICE: 06/21/2020. REASON FOR FOLLOWUP: Left big toe osteomyelitis. INTERVAL HISTORY: The patient is currently afebrile. Patient still complaining of shortness of breath and wheezing. No chest pain. Occasional cough. No abdominal pain. Did have some pain to the left big toe amputation site, but no worsening. PHYSICAL EXAMINATION: Blood pressure 134/70 with a pulse of 80. Temperature 97.5. She is 92% on 2 L nasal cannula. General description is an elderly female lying in bed in no distress. Respiratory system: Unlabored breathing. Occasional wheeze. HEART: S1, S2. Regular rate and rhythm. Abdomen soft, no tenderness. Left big toe amputation site with minimal swelling and redness and minimal drainage. LABS: Hemoglobin is 12 with white count of 9.94, BUN of 28, creatinine 1.1. DIAGNOSTIC IMPRESSION AND PLAN: Patient with left big toe osteomyelitis in this patient status post left big toe amputation. Still have some inflammatory changes at the amputation site and the patient may benefit from a 2 week course of IV vancomycin through a PICC line and close outpatient followup. Continue supportive care. MMODL / IJN: [id number] /
[2020-06-22 07:08] LABS: Glucose,Whole Blood 251 mg/dL (75-99)
[2020-06-22] MEDS: INSULIN ASPART (NovoLOG) 100 UNIT/ML VIAL SQ SCH ×7 (07:39→20:13)
[2020-06-22] MEDS: INSULIN DETEMIR (LEVEMIR) 100 UNIT/ML SYR SQ SCH ×2 (07:39→20:22)
[2020-06-22] MEDS: AZITHROMYCIN 500 MG TAB PO SCH (07:40)
[2020-06-22] MEDS: FAMOTIDINE 20 MG TAB PO SCH (07:40)
[2020-06-22] MEDS: amLODIPine 10 MG TAB PO SCH (07:40)
[2020-06-22] MEDS: ASPIRIN 81 MG PO SCH (07:40)
[2020-06-22] MEDS: CITALOPRAM HYDROBROMIDE 20 MG TAB PO SCH (07:41)
[2020-06-22] MEDS: METOPROLOL SUCCINATE (ER) 50 MG TAB.ER.24H PO SCH (07:41)
[2020-06-22] MEDS: LOSARTAN 50 MG TAB PO SCH (07:41)
[2020-06-22] MEDS: BUDESONIDE 1 MG/2 ML NEBU INHALATION SCH ×2 (09:03→20:34)
[2020-06-22] MEDS: FORMOTEROL FUMARATE 20 MCG/2 ML NEBU INHALATION SCH ×2 (09:03→20:34)
[2020-06-22] MEDS: IPRATROPIUM-ALBUTEROL 3 ML NEB INHALATION SCH ×4 (09:03→20:34)
[2020-06-22] MEDS ORDERED: LIDOCAINE 1% INJ 10MG/ML (20 ML MDV) ONE (11:54)
[2020-06-22 12:06] LABS: Glucose,Whole Blood 170 mg/dL (75-99)
--- NOTE | 2020-06-22 13:32 | P.PN ---
Subjective Progress Note Date: 06/22/20 Principal diagnosis: Acute exacerbation of mild intermittent chronic bronchial asthma 70-year-old white female patient of Dr. Sanderson with past medical history of mild intermittent bronchial asthma on Dilan Kay, patient follows with Dr. Mcqueen on an outpatient basis and the pulmonary clinic. She has a history of type 2 diabetes mellitus, hypertension, previous VT, coronary arteriosclerosis, degenerative joint disease, previous history of smoking, peripheral vascular disease with history of amputation of 2 toes on her right foot. Patient came in on 06/16/2020 for evaluation of chronic nonhealing ulceration to the left great toe and left lateral foot. Patient also Dr. Gregory in the wound clinic and underwent a runoff that showed some blockage to the left lower extremity, however intervention was not feasible related to the location of the blockage. On 06/18/2020 patient underwent a left great toe amputation. She is currently on antibiotics, wound culture showed Tomasa species, and left great toe tissue culture showed coagulase-negative staph, p atient is on a combination of azithromycin, Unasyn and vancomycin, Dr. Mccabe from infectious disease is following. Patient was noted to be increasingly wheezy and coughing, she is having an acute asthma exacerbation. Chest x-ray today showed some non-questionable basilar atelectasis or scarring, reactive airways disease. Patient was started on IV steroids, breathing treatments in the form of DuoNeb, Pulmicort, were asked to see the patient in consultation On 06/21/2020 patient seen in follow-up on medical surgical floor, she is not back to baseline, but breathing easier, less dyspneic and bronchospastic. She continues on high-dose IV steroids 60 mg every 6 hours, nebulized bronchodilato rs, azithromycin, Unasyn and vancomycin. She has had no fever or chills, no hemoptysis, no chest tightness, equal air entry bilaterally, she is currently on 2 L of oxygen pulse ox 91%. She is up to the bedside commode, her left foot with with a dressing, ID service is following. The patient is seen today 06/22/2020 on the regular medical floor. She is currently sitting up at the bedside. Awake and alert in no acute distress. She is breathing easier today day compared to yesterday. Less bronchospastic and wheezing. Maintaining good O2 saturations in the mid 90s on 2 L/m per nasal cannula. She does however continued complaining of increased dyspnea on minimal exertion. D-dimer pending. Continued on bronchodilators, IV Solu-Medrol, antibiotics in the form of vancomycin, Unasyn and azithromycin. Cultures of the left great toe had revealed coag-negative staph diphtheroid species. Status post amputation. Objective - Vital Signs Vital signs: Vital Signs Temp 97.5 F L 06/22/20 08:00 Pulse 86 06/22/20 12:18 Resp 16 06/22/20 08:00 BP 139/69 06/22/20 08:00 Pulse Ox 95 06/22/20 08:00 Intake & Output 06/21/20 06/22/20 06/22/20 18:59 06:59 18:59 Other: Voiding Method Bedside Commode # Voids 6 3 - Exam GENERAL EXAM: Alert, very pleasant, 70-year-old female patient, on 2 L nasal cannula with pulse ox of 95%, comfortable in no apparent distress. HEAD: Normocephalic/atraumatic. EYES: Normal reaction of pupils, equal size. Conjunctiva pink, sclera white. NOSE: Clear with pink turbinates. THROAT: No erythema or exudates. NECK: No masses, no JVD, no thyroid enlargement, no adenopathy. CHEST: No chest wall deformity. Symmetrical expansion. LUNGS: Equal air entry with bilateral end expiratory wheeze, diminished CVS: Regular rate and rhythm, normal S1 and S2, no gallops, no murmurs, no rubs ABDOMEN: Soft, nontender. No hepatosplenomegaly, normal bowel sounds, no guarding or rigidity. EXTREMITIES: No clubbing, no edema, no cyanosis, 2+ pulses and upper and lower extremities. Patient has left great toe amputated, incision is covered with the dressing, and Terence wrap, patient also has a nonhealing wound on the lateral aspect of the left foot. 2 missing toes on the right foot from previous history of amputation MUSCULOSKELETAL: Muscle strength and tone normal. SPINE: No scoliosis or deformity SKIN: No rashes CENTRAL NERVOUS SYSTEM: Alert and oriented -3. No focal deficits, tone is normal in all 4 extremities. PSYCHIATRIC: Alert and oriented -3. Appropriate affect. Intact judgment and insight. - Labs CBC & Chem 7: 06/21/20 06:25 06/21/20 06:25 Labs: Abnormal Lab Results - Last 24 Hours (Table) 06/21/20 06/21/20 06/21/20 Range/Units 06:25 17:08 20:33 D-Dimer (<0.60) mg/L FEU BUN 28.0 H (9.0-27.0) mg/dL Est GFR (CKD-EPI)AfAm 58.5 L (60.0-200.0) Est GFR (CKD-EPI)NonAf 50.5 L (60.0-200.0) BUN/Creatinine Ratio 25.45 H (12.00-20.00) Ratio Glucose 430 H (70-110) mg/dL POC Glucose (mg/dL) 192 H 191 H (75-99) mg/dL Calcium 8.2 L (8.7-10.3) mg/dL 06/22/20 06/22/20 06/22/20 Range/Units 07:06 11:31 12:04 D-Dimer 1.32 H (<0.60) mg/L FEU BUN (9.0-27.0) mg/dL Est GFR (CKD-EPI)AfAm (60.0-200.0) Est GFR (CKD-EPI)NonAf (60.0-200.0) BUN/Creatinine Ratio (12.00-20.00) Ratio Glucose (70-110) mg/dL POC Glucose (mg/dL) 251 H 170 H (75-99) mg/dL Calcium (8.7-10.3) mg/dL Microbiology - Last 24 Hours (Table) 06/16/20 16:00 Blood Culture - Preliminary Blood No Growth after 120 hours 06/16/20 15:27 Blood Culture - Preliminary Blood No Growth after 120 hours 06/18/20 16:01 Anaerobic Culture - Preliminary Toe - Left First 06/18/20 16:01 Gram Stain - Final Toe - Left First Tissue Culture - Final Coagulase Negative Staph Coagulase Negative Staph#2 Diphtheroid species Assessment and Plan Assessment: 1 Acute exacerbation of chronic bronchial asthma and COPD, mild intermittent bronchial asthma 2 Nonhealing wound on the left great toe and left foot related to osteomyelitis, status post left great toe amputation on 06/18/2020 3 Status post amputation of 2 digits on right foot 4 Diabetes mellitus type 2, poorly controlled with hyperglycemia 5 Peripheral vascular disease status post stenting to the right lower extremity 6 History of CHF with diastolic dysfunction 7 Hyperlipidemia 8 Former smoker 9 Degenerative disc disease Plan: The patient was seen and evaluated by Dr. Rojas Less bronchospastic and wheezy but continued with complaints of increasing shortness of breath with minimal exertion We will obtain a d-dimer, elevated we'll obtain a CT angiogram to rule out pul monary embolism Discontinue her IV Solu-Medrol, initiate prednisone burst and taper Continue antibiotics per ID services We will continue to follow I, the cosigning physician, performed a history & physical examination of the patient. Lungs sounds with faint end expiratory wheeze, diminished Maintaining good O2 saturations in the 90s on 2 L/m per nasal cannula. I discussed the assessment and plan of care with my nurse practitioner, Ashley Xiao. I attest to the above note as dictated by her.
--- NOTE | 2020-06-22 14:23 | P.PN ---
Subjective Progress Note Date: 06/22/20 This is a 70-year-old patient of Dr. Sanderson with past medical history of asthma, CHF, COPD, CVA, diabetes, hyperlipidemia, hypertension, rheumatoid arthritis indication of the left great toe. And a chronic ulceration to the left great toe and left lateral foot. Patient is a former nonsmoker who stopped smoking approximately 27 years ago. She drinks alcohol occasionally. Denies any illicit drug use or marijuana. The patient presented to the emergency room for a nonhealing ulceration to the left great toe and left lateral foot. Patient has been seen by the wound care center and Dr. Gregory for the last few weeks. Dr. Gregory did perform a run off which did show some blockage to the left lower extremity. However due to the location of the blockage she was unable to do any intervention at this time. Patient has been utilizing multiple advanced testing. On Friday patient was seen by her home health care nurse who was concerned about the increased drainage to the site and instructed her to go to the emergency room. In the emergency room a x-ray was performed which did show osteo-myelitis to the left great toe. At this time patient is resting comfortably in bed with no acute distress. Patient has dressing to the left foot. Upon examination the right foot shows dried calloused area to the distal portion of the right great toe with redness to the periwound. The right lateral foot ulceration appears to be epithelialized. ABC 7.5, hemoglobin 13.8, platelets 288, potassium 4.4, BUN 14, creatinine 0.59, glucose 221. 06/18: Is found sitting up in a chair without any complaints or concerns. Patient is in no acute distress. She is scheduled to have a left great toe amputation today around 12. Patient may require antibiotics for approximately 1 week post amputation she should be able to go home within the next few days. Patient remains afebrile, blood pressure 146/77, pulse rate 72, respirations 18 nonlabored, pulse ox 94% on room air. Sugars are elevated in the 20s to 260s. 06/19: She is status post left great toe amputation as of yesterday with Dr. Gregory. Pain is currently controlled. She denies any fever or chills. Patient has been afebrile, heart rate 64, blood pressure 117/65, pulse ox 100% on room air. Blood sugars have been elevated running between 206 and 302. Wound culture is Tomasa species not albicans. Blood culture no growth at 48 hours. Tissue cultures obtained during surgery are in process. The patient is followed by Dr. Mccabe and currently on Unasyn and vancomycin. Patient's last A1c was 9 on March 2020. Repeat A1c ordered. 06/20: A1c is 8.8. Blood sugars have been running between 128 and 259. Wound culture remains in process. Patient is on Unasyn and vancomycin followed by Dr. Mccabe. She has been afebrile, heart rate 88, blood pressure 132/80, pulse ox 90% on room air. Patient is complaining of wheezing this morning. We have added in Solu-Medrol and consult with Dr. Rojas, her pulmonary medicine doctor. We have also increased insulins. 06/21: Patient is complaining of left leg pain which is not controlled with tramadol which will be increased to 100 mg 3 times daily and also [place] will be available if patient would like to try this for pain control. She denies having any abdominal pain and no diarrhea. Blood sugars are quite elevated and insulin will be adjusted again today with Levemir to 35 units twice daily and scheduled NovoLog to 28 units 3 times daily with meals. Wound culture is coag-negative staph 2, diphtheroid species. Patient is continued on Unasyn and vancomycin. 06/22: Patient didn't continues to have audible wheezing while ambulating with physical therapy and continued on DuoNeb treatments, Pulmicort and IV Solu- Medrol that his been transitioned to prednisone. Dr. Mccabe is recommended 2 weeks of vancomycin and pharmacy is adjusting dose due to high trough. D-dimer ordered today was 1.32. Blood sugars are running between [address] angiogram has been ordered by pulmonary medicine. Anticipate possible discharge by tomorrow. PICC line has been ordered by ID. Review Of Systems: Constitutional: No fever, no chills, no night sweats. No weight change. No weakness, fatigue or lethargy. No daytime sleepiness. EENT: No headache. No blurred vision or double vision, no loss of vision. No loss of Hearing, no ringing in the ears, no dizziness. No nasal drainage or congestion. No epistaxis. No sore throat. Lungs: Reports shortness of breath, cough, no sputum production. Reports wheezing. Cardiovascular: No chest pain, no lower extremity edema. No palpitations. No paroxysmal nocturnal dyspnea. No orthopnea. No lightheadedness or dizziness. No syncopal episodes. Abdominal: no abdominal discomfort. No nausea, vomiting. no diarrhea. No constipation. No bloody or tarry stools. no loss of appetite. Genitourinary: No dysuria, increased frequency, urgency. No urinary retention. Musculoskeletal: No myalgias. No muscle weakness, no gait dysfunction, no frequent falls. No back pain. No neck pain. Left leg pain. Integumentary: Left great toe wounds, no lesions. No rash or pruritus. No unusual bruising. No change in hair or nails. Neurologic: No aphasia. No facial droop. No change in mentation. No head injury. No headache. No paralysis. No paresthesia. Psychiatric: No depression. No anxiety. No mood swings. Endocrine: No abnormal blood sugars. No weight change. No excessive sweating or thirst. Physical examination General Appearance: Alert, cooperative, no distress, appears stated age. Neck HEENT: Supple, no lymphadenopathy, no thyroid enlargement, no carotid bruits. Lungs: Lung sounds diminished with expiratory wheeze, mild accessory muscle usage. Chest Wall: Chest wall normal expansion with deep inspiration no tenderness and no deformity was found on exam, no costochondral pain or discomfort. Heart: Regular rate and rhythm, S1, S2 normal, no murmur, rub or gallop. Back: Symmetric, no curvature, ROM normal, no CVA tenderness. Abdomen: Soft, non-tender, no rebound or rigidity, no hepatosplenomegaly. Extremities: Extremities normal, atraumatic, no cyanosis or edema. Pulses: 2+ and symmetric. Skin: Diabetic foot ulcer right lateral foot, dressing in place to the right great toe. Previous amputation to the right great toe. Skin color, texture, tugor normal, no rashes or lesions. Neurologic: Alert oriented x3 cranial nerves II through XII intact, no motor d eficit, no abnormal balance or gait Assessment and plan 1. Diabetic foot ulcer left great toe with osteomyelitis status post amputation. Consult vascular surgery, consult infectious disease. Local wound care as prescribed by Dr. Gregory. Tramadol increased to 100 mg 3 times daily and added Am[place] 5 one every 4 hours as needed. Consult with PT and OT added. 2. Osteomyelitis. Consult infectious disease. Unasyn 1.5 g every 6 hours IV piggyback, vancomycin, blood cultures and wound culture ordered. 3. Diabetes mellitus type II uncontrolled with hyperglycemia. Continue Levemir increase to 35 units twice a day, NovoLog 28 units before meals 3 times a day continue with sliding scale as needed 4. Peripheral vascular disease status post stent to right lower extremity and right great toe amputation 5. Chronic diastolic heart failure metoprolol 50 mg by mouth daily 6. Hyperlipidemia. Lipitor 40 mg by mouth at bedtime 7. Hypertension. Norvasc 10 mg by mouth, Cozaar 50 mg by mouth daily 8. COPD, stable. 9. Recurrent Depression. Celexa 40 mg by mouth at bedtime 10. Asthma exacerbation, possible COPD exacerbation. Patient started on Solu-Medrol 60 mg IV every 6 hours, DuoNeb treatments 4 times daily and every 2 hours as needed, Pulmicort twice daily, pulmonary medicine consult. 11. GI prophylaxis Pepcid 20 mg by mouth twice a day 11. DVT prophylaxis. Pneumatic compression garment Patient will be admitted for a minimum of 2 nights day. CODE STATUS: Full code Discharge plan Home Friday with IV antibiotics. PICC line has been ordered. Impression and plan of care have been directed as dictated by the signing physician. Emily Higginbotham nurse practitioner acting as scribe for signing physician. Objective - Vital Signs Vital signs: Vital Signs Temp 98.0 F 06/22/20 02:12 Pulse 84 06/22/20 09:25 Resp 16 06/22/20 02:12 BP 144/70 06/22/20 02:12 Pulse Ox 93 L 06/22/20 02:12 Intake & Output 06/21/20 06/22/20 06/22/20 18:59 06:59 18:59 Other: Voiding Method Bedside Commode # Voids 6 3 - Labs CBC & Chem 7: 06/21/20 06:25 06/21/20 06:25 Labs: Abnormal Lab Results - Last 24 Hours (Table) 06/21/20 06/21/20 06/21/20 Range/Units 06:25 06:25 12:13 RBC 3.94 L (4.10-5.20) X 10*6/uL MCHC 31.9 L (32.0-37.0) g/dL Immature Gran # 0.12 H (0.00-0.04) X 10*3/uL Neutrophils # 9.02 H (1.80-7.70) X 10*3/uL Lymphocytes # 0.68 L (0.90-5.00) X 10*3/uL Monocytes # 0.10 L (0.20-1.00) X 10*3/uL Eosinophils # 0 L (0.04-0.35) X 10*3/uL BUN 28.0 H (9.0-27.0) mg/dL Est GFR (CKD-EPI)AfAm 58.5 L (60.0-200.0) Est GFR (CKD-EPI)NonAf 50.5 L (60.0-200.0) BUN/Creatinine Ratio 25.45 H (12.00-20.00) Ratio Glucose 430 H (70-110) mg/dL POC Glucose (mg/dL) 371 H (75-99) mg/dL Calcium 8.2 L (8.7-10.3) mg/dL 06/21/20 06/21/20 06/22/20 Range/Units 17:08 20:33 07:06 RBC (4.10-5.20) X 10*6/uL MCHC (32.0-37.0) g/dL Immature Gran # (0.00-0.04) X 10*3/uL Neutrophils # (1.80-7.70) X 10*3/uL Lymphocytes # (0.90-5.00) X 10*3/uL Monocytes # (0.20-1.00) X 10*3/uL Eosinophils # (0.04-0.35) X 10*3/uL BUN (9.0-27.0) mg/dL Est GFR (CKD-EPI)AfAm (60.0-200.0) Est GFR (CKD-EPI)NonAf (60.0-200.0) BUN/Creatinine Ratio (12.00-20.00) Ratio Glucose (70-110) mg/dL POC Glucose (mg/dL) 192 H 191 H 251 H (75-99) mg/dL Calcium (8.7-10.3) mg/dL Microbiology - Last 24 Hours (Table) 06/16/20 16:00 Blood Culture - Preliminary Blood No Growth after 120 hours 06/16/20 15:27 Blood Culture - Preliminary Blood No Growth after 120 hours 06/18/20 16:01 Anaerobic Culture - Preliminary Toe - Left First 06/18/20 16:01 Gram Stain - Final Toe - Left First Tissue Culture - Final Coagulase Negative Staph Coagulase Negative Staph#2 Diphtheroid species
[2020-06-22 14:51] VITALS: BMI 32.4
[2020-06-22] MEDS ORDERED: methylPREDNISolone SOD SUCCI 40 MG/ML 1 ML VIAL IV SCH (16:00)
[2020-06-22 16:37] LABS: Glucose,Whole Blood 94 mg/dL (75-99)
--- NOTE | 2020-06-22 16:52 | CT ---
EXAMINATION TYPE: CT angio chest DATE OF EXAM: 06/22/2020 4:33 PM COMPARISON: CTA chest April 03, 2015 HISTORY: Shortness of breath. CT DLP: 760.3 mGycm Automated exposure control for dose reduction was used. CONTRAST: CTA scan of the thorax is performed with IV Contrast, patient injected with 100 mL of Isovue 370, pul monary embolism protocol. MIP images are created and reviewed. FINDINGS: LUNGS: Exam suboptimal as patient unable to hold breath with respiratory motion artifact degradation particularly in lower lungs. This limits evaluation for subcentimeter nodules. Trace bilateral pleura l effusions with mosaic attenuation suggesting mild alveolar edema. Mild intralobular septal thickeni ng consistent with mild interstitial edema. Subtle 4 to 5 mm right basilar nodule or nodular opacity axial image 102. No pneumothorax seen bilaterally. MEDIASTINUM: There is satisfactory enhancement of the pulmonary artery and its branches, there is no CT evidence for pulmonary embolism. Enlarged main pulmonary artery. Post-CABG changes with sternal wi res and mediastinal clips. Bilateral BRIDGES and TIFFANIE harvesting. There are no greater than 1 cm hilar o r mediastinal lymph nodes. No cardiomegaly or pericardial effusion is seen. No aortic aneurysm or d issection. OTHER: No additional significant abnormality is seen. IMPRESSION: No CT evidence for acute pulmonary embolism. Mild fluid overload state with tiny bilatera l pleural effusions and mild alveolar and interstitial edema.
--- NOTE | 2020-06-22 18:13 | PN ---
PROGRESS NOTE This patient is a 70-year-old female with a history of COPD, obesity. Today she is very short of breath. She had a left big toe amputation done. Today we have changed her dressing. Slight redness noted. No discharge noted. Dressing changed. The patient had a CT scan to rule out PE, which is negative. MMODL / IJN: [id number] /
[2020-06-22 19:46] LABS: Non-African American GFR(CKD) 74.2 (60.0-200.0)
[2020-06-22 20:10] LABS: Glucose,Whole Blood 93 mg/dL (75-99)
[2020-06-22] MEDS: ATORVASTATIN 20 MG TAB PO SCH (20:20)
[2020-06-22] MEDS: PREGABALIN 75 MG CAP PO SCH (20:22)
--- NOTE | 2020-06-22 20:53 | PN ---
PROGRESS NOTE DATE OF SERVICE: 06/22/2020 REASON FOR FOLLOWUP: Left big toe osteomyelitis. INTERVAL HISTORY: The patient is currently afebrile. The patient is still complaining of shortness of breath and cough. Denies having any chest pain. No abdominal pain or pain to the left big toe. PHYSICAL EXAMINATION: Blood pressure 133/75, pulse of 70, temperature 97.8. She is 91% on room air. General description is an elderly female lying in bed in no distress. RESPIRATORY SYSTEM: Unlabored breathing. Occasional wheeze. HEART: S1, S2. Regular rate and rhythm. ABDOMEN: Soft. No tenderness. Left foot is currently dressed up. No obvious drainage on the dressing. DIAGNOSTIC IMPRESSION AND PLAN: Patient with left big toe osteomyelitis, status post amputation. Still some component of cellulitis at the amputation site. The patient will get a PICC line and IV vancomycin for 2 weeks, Pharmacy to dose. Continue supportive care. MMODL / IJN: [id number] /
[2020-06-23] MEDS: AMPICILLIN-SULBACTAM 1.5 GM in SODIUM CHLORIDE 0.9% 50 ML IVPB SCH ×2 (05:50→12:22)
[2020-06-23] MEDS: HYDROcodone/APAP 5-325MG 1 EACH TAB PO PRN ×2 (05:52→13:18)
[2020-06-23 06:39] LABS: Glucose,Whole Blood 92 mg/dL (75-99)
[2020-06-23 07:22] LABS: African American GFR (CKD) >90 (>60 ml/min/1.73 sqM); Non-African American GFR(CKD) 87 (>60 ml/min/1.73 sqM)
[2020-06-23] MEDS: INSULIN ASPART (NovoLOG) 100 UNIT/ML VIAL SQ SCH ×8 (07:28→21:30)
[2020-06-23] MEDS: AZITHROMYCIN 500 MG TAB PO SCH (07:29)
[2020-06-23] MEDS: CITALOPRAM HYDROBROMIDE 20 MG TAB PO SCH (07:29)
[2020-06-23] MEDS: INSULIN DETEMIR (LEVEMIR) 100 UNIT/ML SYR SQ SCH ×2 (07:29→21:30)
[2020-06-23] MEDS: amLODIPine 10 MG TAB PO SCH (07:29)
[2020-06-23] MEDS: predniSONE 20 MG TAB PO SCH (07:29)
[2020-06-23] MEDS: FAMOTIDINE 20 MG TAB PO SCH (07:30)
[2020-06-23] MEDS: METOPROLOL SUCCINATE (ER) 50 MG TAB.ER.24H PO SCH (07:30)
[2020-06-23] MEDS: ASPIRIN 81 MG PO SCH (07:30)
[2020-06-23] MEDS: FORMOTEROL FUMARATE 20 MCG/2 ML NEBU INHALATION SCH ×2 (09:04→20:44)
[2020-06-23] MEDS: BUDESONIDE 1 MG/2 ML NEBU INHALATION SCH ×2 (09:04→20:44)
[2020-06-23] MEDS: IPRATROPIUM-ALBUTEROL 3 ML NEB INHALATION SCH ×4 (09:04→20:44)
[2020-06-23] MEDS: VANCOMYCIN 1,500 MG in SODIUM CHLORIDE 0.9% 250 ML IVPB SCH (09:30)
[2020-06-23] MEDS ORDERED: LIDOCAINE 1% INJ 10MG/ML (20 ML MDV) ONE (10:43)
[2020-06-23] MEDS ORDERED: LIDOCAINE 1% INJ 10MG/ML (20 ML MDV) SQ ONE (10:49)
[2020-06-23 11:28] LABS: Glucose,Whole Blood 55 mg/dL (75-99)
[2020-06-23 11:58] LABS: Glucose,Whole Blood 96 mg/dL (75-99)
[2020-06-23] MEDS: FUROSEMIDE 10 MG/ML 4 ML VIAL IV SCH (12:15)
[2020-06-23] MEDS: POTASSIUM CHLORIDE ER 20 MEQ TAB.ER PO SCH (12:15)
--- NOTE | 2020-06-23 12:19 | IR ---
EXAMINATION TYPE: IR cvc insert >=5 years DATE OF EXAM: 06/23/2020 COMPARISON: NONE CLINICAL HISTORY: Infection Needs long-term intravenous access for antibiotics. PROCEDURE: Hand hygiene obtained with soap and water and alcohol-based hand rub. After informed consent, the skin overlying the left brachial vein was localized with ultrasound and n oted to be compressible and patent. An ultrasound image was obtained and submitted on the patient's chart. The overlying skin was prepped and draped and Lidocaine was used for local anesthesia. A ski n alexa was made with a scalpel. Access was gained to the vein under ultrasound guidance with a 21 ga uge needle and a 0.018 inch wire was advanced. Access site was dilated with Peel-Away sheath and cat heter tailored to the appropriate length and advanced such that the distal tip is at the cavoatrial j unction. Spot image was obtained verifying placement. Catheter was fixed to the skin and a sterile dressing was placed following hemostasis. Catheter was aspirated and flushed with saline. Patient w as discharged in stable condition without complication. Maximal barrier technique is utilized. Ultra sound image is documented on the chart. Ultrasound used with sterile technique. Fluoro time and fluoroscopic images submitted to document procedure: 66 intraoperative images, 0.3 mi nutes fluoroscopy time IMPRESSION: STATUS POST ULTRASOUND AND FLUOROSCOPIC GUIDED PICC LINE PLACEMENT, READY FOR USE. THIS PROCEDURE WAS PERFORMED BY THE UNDERSIGNED.
--- NOTE | 2020-06-23 12:23 | ECHOF ---
Referral Reason:LVF MEASUREMENTS -------- HEIGHT: 165.1 cm WEIGHT: 88.5 kg BP: 130/60 IVSd: 1.3 cm (0.6 - 1.1) LVIDd: 5.4 cm (3.9 - 5.3) LVPWd: 1.2 cm (0.6 - 1.1) IVSs: 1.8 cm LVIDs: 4.2 cm LVPWs: 1.2 cm LAESV Index (A-L): 29.51 ml/m Ao Diam: 2.4 cm (2.0 - 3.7) AV Cusp: 0.9 cm (1.5 - 2.6) MV EXCURSION: 13.622 mm (> 18.000) MV EF SLOPE: 51 mm/s (70 - 150) EPSS: 0.7 cm MV E Paresh: 1.43 m/s MV DecT: 202 ms MV A Paresh: 1.13 m/s MV E/A Ratio: 1.26 AV maxP.81 mmHg AV meanP.12 mmHg RAP: 5.00 mmHg RVSP: 41.75 mmHg FINDINGS -------- Sinus rhythm. This was a technically difficult study with suboptimal views. The left ventricular size is normal. There is moderate concentric left ventricular hypertrophy. O verall left ventricular systolic function is mild-moderately impaired with, an EF between 40 - 45 %. Basal inferior LV wall motion is hypokinetic. Basal inferoseptal LV wall motion is hypokinetic. Mid inferior LV wall motion is hypokinetic. Mid inferoseptal LV wall motion is hypokinetic. Apical inferior LV wall motion is hypokinetic. The RV was not well visualized. LA is midly dilated 29-33ml/m2. The right atrium was not well visualized. 5.0mg of Lumason was utilized for enhancement of images Interatrial and interventricular septum intact. There is mild aortic valve sclerosis. There is no evidence of aortic regurgitation. There is no e vidence of aortic stenosis. Mild mitral annular calcification present. Hhmnzeiv-er-uesxis mitral regurgitation is present. Mild tricuspid regurgitation present. There is mild pulmonary hypertension. The right ventricular systolic pressure, as measured by Doppler, is 41.75mmHg. The pulmonic valve was not well visualized. The aortic root size is normal. IVC Not well visulized. There is no pericardial effusion. CONCLUSIONS -------- 1. There is moderate concentric left ventricular hypertrophy. 2. Overall left ventricular systolic function is mild-moderately impaired with, an EF between 40 - 45 %. 3. Basal inferior LV wall motion is hypokinetic. 4. Basal inferoseptal LV wall motion is hypokinetic. 5. Mid inferior LV wall motion is hypokinetic. 6. Mid inferoseptal LV wall motion is hypokinetic. 7. Apical inferior LV wall motion is hypokinetic. 8. LA is midly dilated 29-33ml/m2. 9. There is mild aortic valve sclerosis. 10. Cqbcyyvc-pt-yfpypn mitral regurgitation is present. 11. Mild tricuspid regurgitation present. 12. There is mild pulmonary hypertension. MD UROLOGIST: Hina Ballard RDCS
--- NOTE | 2020-06-23 13:31 | P.PN ---
Subjective Progress Note Date: 06/23/20 Principal diagnosis: Acute exacerbation of mild intermittent chronic bronchial asthma 70-year-old white female patient of Dr. Sanderson with past medical history of mild intermittent bronchial asthma on Dilan Kay, patient follows with Dr. Mcqueen on an outpatient basis and the pulmonary clinic. She has a history of type 2 diabetes mellitus, hypertension, previous MS, coronary arteriosclerosis, degenerative joint disease, previous history of smoking, peripheral vascular disease with history of amputation of 2 toes on her right foot. Patient came in on 06/16/2020 for evaluation of chronic nonhealing ulceration to the left great toe and left lateral foot. Patient also Dr. Gregory in the wound clinic and underwent a runoff that showed some blockage to the left lower extremity, however intervention was not feasible related to the location of the blockage. On 06/18/2020 patient underwent a left great toe amputation. She is currently on antibiotics, wound culture showed Tomasa species, and left great toe tissue culture showed coagulase-negative staph, p atient is on a combination of azithromycin, Unasyn and vancomycin, Dr. Mccabe from infectious disease is following. Patient was noted to be increasingly wheezy and coughing, she is having an acute asthma exacerbation. Chest x-ray today showed some non-questionable basilar atelectasis or scarring, reactive airways disease. Patient was started on IV steroids, breathing treatments in the form of DuoNeb, Pulmicort, were asked to see the patient in consultation On 06/21/2020 patient seen in follow-up on medical surgical floor, she is not back to baseline, but breathing easier, less dyspneic and bronchospastic. She continues on high-dose IV steroids 60 mg every 6 hours, nebulized bronchodilato rs, azithromycin, Unasyn and vancomycin. She has had no fever or chills, no hemoptysis, no chest tightness, equal air entry bilaterally, she is currently on 2 L of oxygen pulse ox 91%. She is up to the bedside commode, her left foot with with a dressing, ID service is following. The patient is seen today 06/22/2020 on the regular medical floor. She is currently sitting up at the bedside. Awake and alert in no acute distress. She is breathing easier today day compared to yesterday. Less bronchospastic and wheezing. Maintaining good O2 saturations in the mid 90s on 2 L/m per nasal cannula. She does however continued complaining of increased dyspnea on minimal exertion. D-dimer pending. Continued on bronchodilators, IV Solu-Medrol, antibiotics in the form of vancomycin, Unasyn and azithromycin. Cultures of the left great toe had revealed coag-negative staph diphtheroid species. Status post amputation. The patient is seen today 06/23/2020 up on the regular medical floor. She is currently sitting up in bed. Awake and alert in no acute distress. She did receive a PICC line placement to the left upper extremity. Remains on vancomycin and Unasyn. Creatinine 0.70. CT angiogram revealed no evidence for acute pulmonary embolism. There was some mild fluid volume overload with tiny bilateral effusions and mild interstitial edema. ProBNP 3290. Current receiving Lasix 40 mg IV daily. Remains on bronchodilators, prednisone. Maintaining O2 saturations in the 90s on 2 L/m per nasal cannula. Afebrile. Objective - Vital Signs Vital signs: Vital Signs Temp 97.8 F 06/23/20 06:48 Pulse 80 06/23/20 13:20 Resp 20 06/23/20 06:48 BP 152/66 06/23/20 06:48 Pulse Ox 91 L 06/23/20 06:48 Intake & Output 06/22/20 06/23/20 06/23/20 18:59 06:59 18:59 Weight 88.451 kg Other: Voiding Method Bedside Commode - Exam GENERAL EXAM: Alert, very pleasant, 70-year-old female patient, on 2 L nasal cannula with pulse ox of 94%, comfortable in no apparent distress. HEAD: Normocephalic/atraumatic. EYES: Normal reaction of pupils, equal size. Conjunctiva pink, sclera white. NOSE: Clear with pink turbinates. THROAT: No erythema or exudates. NECK: No masses, no JVD, no thyroid enlargement, no adenopathy. CHEST: No chest wall deformity. Symmetrical expansion. LUNGS: Equal air entry with bilateral end expiratory wheeze, faint crackles in the bilateral posterior bases, diminished CVS: Regular rate and rhythm, normal S1 and S2, no gallops, no murmurs, no rubs ABDOMEN: Soft, nontender. No hepatosplenomegaly, normal bowel sounds, no g uarding or rigidity. EXTREMITIES: No clubbing, no edema, no cyanosis, 2+ pulses and upper and lower extremities. Patient has left great toe amputated, incision is covered with the dressing, and Terence wrap, patient also has a nonhealing wound on the lateral aspect of the left foot. 2 missing toes on the right foot from previous history of amputation MUSCULOSKELETAL: Muscle strength and tone normal. SPINE: No scoliosis or deformity SKIN: No rashes CENTRAL NERVOUS SYSTEM: Alert and oriented -3. No focal deficits, tone is normal in all 4 extremities. PSYCHIATRIC: Alert and oriented -3. Appropriate affect. Intact judgment and insight. - Labs CBC & Chem 7: 06/21/20 06:25 06/23/20 06:28 Labs: Abnormal Lab Results - Last 24 Hours (Table) 06/23/20 Range/Units 11:26 POC Glucose (mg/dL) 55 L (75-99) mg/dL Microbiology - Last 24 Hours (Table) 06/18/20 16:01 Anaerobic Culture - Final Toe - Left First 06/16/20 16:00 Blood Culture - Final Blood No Growth after 144 hours 06/16/20 15:27 Blood Culture - Final Blood No Growth after 144 hours Assessment and Plan Assessment: 1 Acute exacerbation of chronic bronchial asthma and COPD, mild intermittent bronchial asthma 2 Acute exacerbation of chronic diastolic congestive heart failure 3 Nonhealing wound on the left great toe and left foot related to osteomyeliti s, status post left great toe amputation on 06/18/2020 4 Status post amputation of 2 digits on right foot 5 Diabetes mellitus type 2, poorly controlled with hyperglycemia 6 Peripheral vascular disease status post stenting to the right lower extremity 7 Hyperlipidemia 8 Former smoker 9 Degenerative disc disease Plan: The patient was seen and evaluated by Dr. Rojas CT angiogram reviewed, PE ruled out IV Lasix for acute diastolic congestive heart failure Continue antibiotics per ID services PICC line has been placed We will continue to follow I, the cosigning physician, performed a history & physical examination of the patient. Lungs sounds with faint end expiratory wheeze, diminished, crackles in the posterior bases. Maintaining good O2 saturations in the 90s on 2 L/m per nasal cannula. I discussed the assessment and plan of care with my nurse practitioner, Ashley Xiao. I attest to the above note as dictated by her.
--- NOTE | 2020-06-23 15:59 | P.PN ---
Subjective Progress Note Date: 06/23/20 This is a 70-year-old patient of Dr. Sanderson with past medical history of asthma, CHF, COPD, CVA, diabetes, hyperlipidemia, hypertension, rheumatoid arthritis indication of the left great toe. And a chronic ulceration to the left great toe and left lateral foot. Patient is a former nonsmoker who stopped smoking approximately 27 years ago. She drinks alcohol occasionally. Denies any illicit drug use or marijuana. The patient presented to the emergency room for a nonhealing ulceration to the left great toe and left lateral foot. Patient has been seen by the wound care center and Dr. Gregory for the last few weeks. Dr. Gregory did perform a run off which did show some blockage to the left lower extremity. However due to the location of the blockage she was unable to do any intervention at this time. Patient has been utilizing multiple advanced testing. On Friday patient was seen by her home health care nurse who was concerned about the increased drainage to the site and instructed her to go to the emergency room. In the emergency room a x-ray was performed which did show osteo-myelitis to the left great toe. At this time patient is resting comfortably in bed with no acute distress. Patient has dressing to the left foot. Upon examination the right foot shows dried calloused area to the distal portion of the right great toe with redness to the periwound. The right lateral foot ulceration appears to be epithelialized. ABC 7.5, hemoglobin 13.8, platelets 288, potassium 4.4, BUN 14, creatinine 0.59, glucose 221. 06/18: Is found sitting up in a chair without any complaints or concerns. Patient is in no acute distress. She is scheduled to have a left great toe amputation today around 12. Patient may require antibiotics for approximately 1 week post amputation she should be able to go home within the next few days. Patient remains afebrile, blood pressure 146/77, pulse rate 72, respirations 18 nonlabored, pulse ox 94% on room air. Sugars are elevated in the 20s to 260s. 06/19: She is status post left great toe amputation as of yesterday with Dr. Gregory. Pain is currently controlled. She denies any fever or chills. Patient has been afebrile, heart rate 64, blood pressure 117/65, pulse ox 100% on room air. Blood sugars have been elevated running between 206 and 302. Wound culture is Tomasa species not albicans. Blood culture no growth at 48 hours. Tissue cultures obtained during surgery are in process. The patient is followed by Dr. Mccabe and currently on Unasyn and vancomycin. Patient's last A1c was 9 on March 2020. Repeat A1c ordered. 06/20: A1c is 8.8. Blood sugars have been running between 128 and 259. Wound culture remains in process. Patient is on Unasyn and vancomycin followed by Dr. Mccabe. She has been afebrile, heart rate 88, blood pressure 132/80, pulse ox 90% on room air. Patient is complaining of wheezing this morning. We have added in Solu-Medrol and consult with Dr. Rojas, her pulmonary medicine doctor. We have also increased insulins. 06/21: Patient is complaining of left leg pain which is not controlled with tramadol which will be increased to 100 mg 3 times daily and also [place] will be available if patient would like to try this for pain control. She denies having any abdominal pain and no diarrhea. Blood sugars are quite elevated and insulin will be adjusted again today with Levemir to 35 units twice daily and scheduled NovoLog to 28 units 3 times daily with meals. Wound culture is coag-negative staph 2, diphtheroid species. Patient is continued on Unasyn and vancomycin. 06/22: Patient didn't continues to have audible wheezing while ambulating with physical therapy and continued on DuoNeb treatments, Pulmicort and IV Solu- Medrol that his been transitioned to prednisone. Dr. Mccabe is recommended 2 weeks of vancomycin and pharmacy is adjusting dose due to high trough. D-dimer ordered today was 1.32. Blood sugars are running between [address] angiogram has been ordered by pulmonary medicine. Anticipate possible discharge by tomorrow. PICC line has been ordered by ID. 06/23: CT angiogram of the chest revealed no evidence of acute pulmonary emb olism. Mild fluid overload state with tiny bilateral pleural effusions and mild alveolar and interstitial edema. ProBNP 3290. Patient has been started on IV Lasix 40 mg daily. PICC line was inserted today. Wound cultures are still in progress and there is a positive anaerobic not identified. Patient is continued on IV vancomycin, dosed by pharmacy. Yesterday, patient's pulse ox dropped down to 83% with ambulation. We'll plan to set up home oxygen therapy but will reassess prior to discharge. Patient was transitioned off IV Solu-Medrol to oral prednisone starting yesterday afternoon and blood sugar was low today with 92 at breakfast and 55 at lunch. Insulins were adjusted to Levemir 20 units twice daily and NovoLog 15 units 3 times daily with meals. Patient does state that she is eating less food here than she normally does at home. Echocardiogram reveals EF of 40-45%, moderate concentric left hypertrophy, moderate to severe mitral regurgitation, mild tricuspid regurgitation, mild pulmonary hypertension. At this time, the patient will continue to be monitored. Doubt that she will be ready for discharge clinically until Friday but will hold discharge until Friday due to set up of IV antibiotics for home. She will also need reassessment of home oxygen need. Review Of Systems: Constitutional: No fever, no chills, no night sweats. No weight change. No weakness, fatigue or lethargy. No daytime sleepiness. EENT: No headache. No blurred vision or double vision, no loss of vision. No loss of Hearing, no ringing in the ears, no dizziness. No nasal drainage or congestion. No epistaxis. No sore throat. Lungs: Reports shortness of breath, cough, no sputum production. Reports wheezing. Reports shortness of breath with activity. Cardiovascular: No chest pain, no lower extremity edema. No palpitations. No p aroxysmal nocturnal dyspnea. No orthopnea. No lightheadedness or dizziness. No syncopal episodes. Abdominal: no abdominal discomfort. No nausea, vomiting. no diarrhea. No constipation. No bloody or tarry stools. no loss of appetite. Genitourinary: No dysuria, increased frequency, urgency. No urinary retention. Musculoskeletal: No myalgias. No muscle weakness, no gait dysfunction, no freq uent falls. No back pain. No neck pain. Left leg pain. Integumentary: Left great toe wounds, no lesions. No rash or pruritus. No unusual bruising. No change in hair or nails. Neurologic: No aphasia. No facial droop. No change in mentation. No head injury. No headache. No paralysis. No paresthesia. Psychiatric: No depression. No anxiety. No mood swings. Endocrine: No abnormal blood sugars. No weight change. No excessive sweating or thirst. Physical examination General Appearance: Alert, cooperative, no distress, appears stated age. Neck HEENT: Supple, no lymphadenopathy, no thyroid enlargement, no carotid bruits. Lungs: Lung sounds diminished with expiratory wheeze, mild accessory muscle usage. Chest Wall: Chest wall normal expansion with deep inspiration no tenderness and no deformity was found on exam, no costochondral pain or discomfort. Heart: Regular rate and rhythm, S1, S2 normal, no murmur, rub or gallop. Back: Symmetric, no curvature, ROM normal, no CVA tenderness. Abdomen: Soft, non-tender, no rebound or rigidity, no hepatosplenomegaly. Extremities: Extremities normal, atraumatic, no cyanosis or edema. Pulses: 2+ and symmetric. Skin: Diabetic foot ulcer right lateral foot, dressing in place to the right great toe. Previous amputation to the right great toe. Skin color, texture, tugor normal, no rashes or lesions. Neurologic: Alert oriented x3 cranial nerves II through XII intact, no motor deficit, no abnormal balance or gait Assessment and plan 1. Diabetic foot ulcer left great toe with osteomyelitis status post amputation. Consult vascular surgery, consult infectious disease. Local wound care as prescribed by Dr. Gregory. Tramadol increased to 100 mg 3 times daily and added [place] 5 one every 4 hours as needed. Consult with PT and OT following. 2. Osteomyelitis. Consult infectious disease. Unasyn 1.5 g every 6 hours IV piggyback, vancomycin, blood cultures and wound culture ordered. PICC line has been inserted. 3. Acute chronic systolic heart failure, present on admission. Patient will be started on Lasix 40 mg daily. Monitor I&O and daily weights, monitor electrolytes and renal function. Until you metoprolol 50 mg daily. 4. Diabetes mellitus type II uncontrolled with hyperglycemia and hypoglycemia. Continue Levemir decreased to 20 units twice a day, NovoLog decreased to 15 units before meals 3 times a day continue with sliding scale as needed. Patient is on a consistent carb diet. 5. Peripheral vascular disease status post stent to right lower extremity and right great toe amputation 6. Hyperlipidemia. Lipitor 40 mg by mouth at bedtime 7. Hypertension. Norvasc 10 mg by mouth, Cozaar 50 mg by mouth daily 8. COPD, stable. 9. Recurrent Depression. Celexa 40 mg by mouth at bedtime 10. Asthma exacerbation, possible COPD exacerbation. Solu-Medrol physician to oral prednisone 40 mg daily, continue DuoNeb treatments 4 times daily and every 2 hours as needed, Pulmicort twice daily, pulmonary medicine consult. 11. GI prophylaxis Pepcid 20 mg by mouth twice a day 11. DVT prophylaxis. Pneumatic compression garment CODE STATUS: Full code Discharge plan Home Friday with IV antibiotics. PICC line has been inserted. Impression and plan of care have been directed as dictated by the signing physician. Emily Higginbotham nurse practitioner acting as scribe for signing physician. Objective - Vital Signs Vital signs: Vital Signs Temp 97.8 F 06/23/20 06:48 Pulse 88 06/23/20 09:20 Resp 20 06/23/20 06:48 BP 152/66 06/23/20 06:48 Pulse Ox 91 L 06/23/20 06:48 Intake & Output 06/22/20 06/23/20 06/23/20 18:59 06:59 18:59 Weight 88.451 kg Other: Voiding Method Bedside Commode - Labs CBC & Chem 7: 06/21/20 06:25 06/23/20 06:28 Labs: Abnormal Lab Results - Last 24 Hours (Table) 06/22/20 06/22/20 Range/Units 11:31 12:04 D-Dimer 1.32 H (<0.60) mg/L FEU POC Glucose (mg/dL) 170 H (75-99) mg/dL Microbiology - Last 24 Hours (Table) 06/16/20 16:00 Blood Culture - Final Blood No Growth after 144 hours 06/16/20 15:27 Blood Culture - Final Blood No Growth after 144 hours
[2020-06-23 16:50] LABS: Glucose,Whole Blood 168 mg/dL (75-99)
--- NOTE | 2020-06-23 17:06 | PN ---
PROGRESS NOTE DATE OF SERVICE: 06/23/2020 REASON FOR FOLLOWUP: Left big toe osteomyelitis. INTERVAL HISTORY: The patient is currently afebrile. The patient is breathing comfortably. The patient denies having any chest pain. Still complains of shortness of breath. Minimal cough. No sputum. No abdominal pain or diarrhea. Denies any worsening pain to the left big toe. PHYSICAL EXAMINATION: Her blood pressure is 131/70 with a pulse of 80, temperature is 97.8. She is 94% on 3 L nasal cannula. General description is an elderly female up in the room in no distress. RESPIRATORY SYSTEM: Unlabored breathing . HEART: S1, S2. Regular rate and rhythm. ABDOMEN: Soft. No tenderness. LABS: Wound culture positive for coagulase-negative Staph. Anaerobes have been negative. DIAGNOSTIC IMPRESSION AND PLAN: Patient with left big toe osteomyelitis, status post amputation. Culture with coagulase-negative staph. Patient to continue with vancomycin for 2 weeks changes seen at the surgical site. Unasyn discontinued, as more grown, and continue with supportive care. MMODL / IJN: [id number] /
[2020-06-23 21:25] LABS: Glucose,Whole Blood 181 mg/dL (75-99)
[2020-06-23] MEDS: traMADol 50 MG TAB PO PRN (21:30)
[2020-06-23] MEDS: PREGABALIN 75 MG CAP PO SCH (21:31)
[2020-06-23] MEDS: ATORVASTATIN 20 MG TAB PO SCH (21:31)
[2020-06-24] MEDS: VANCOMYCIN 1,500 MG in SODIUM CHLORIDE 0.9% 250 ML IVPB SCH ×2 (00:54→16:12)
[2020-06-24 02:41] LABS: Glucose,Whole Blood 103 mg/dL (75-99)
[2020-06-24 07:12] LABS: Glucose,Whole Blood 50 mg/dL (75-99)
[2020-06-24 07:18] LABS: Glucose,Whole Blood 77 mg/dL (75-99)
[2020-06-24] MEDS: INSULIN ASPART (NovoLOG) 100 UNIT/ML VIAL SQ SCH ×7 (07:23→20:53)
[2020-06-24 07:30] LABS: African American GFR (CKD) >90 (>60 ml/min/1.73 sqM); Anion Gap 4 mmol/L; Blood Urea Nitrogen 24 mg/dL (7-17); Calcium 8.3 mg/dL (8.4-10.2); Carbon Dioxide 28 mmol/L (22-30); Chloride 110 mmol/L (98-107); Glucose 56 mg/dL (74-99); Non-African American GFR(CKD) >90 (>60 ml/min/1.73 sqM); Potassium 3.8 mmol/L (3.5-5.1); Sodium 142 mmol/L (137-145)
[2020-06-24] MEDS: CITALOPRAM HYDROBROMIDE 20 MG TAB PO SCH (07:44)
[2020-06-24] MEDS: ASPIRIN 81 MG PO SCH (07:44)
[2020-06-24] MEDS: FAMOTIDINE 20 MG TAB PO SCH (07:45)
[2020-06-24] MEDS: LOSARTAN 50 MG TAB PO SCH (07:45)
[2020-06-24] MEDS: FUROSEMIDE 10 MG/ML 4 ML VIAL IV SCH (07:45)
[2020-06-24] MEDS: amLODIPine 10 MG TAB PO SCH (07:45)
[2020-06-24] MEDS: METOPROLOL SUCCINATE (ER) 50 MG TAB.ER.24H PO SCH (07:45)
[2020-06-24] MEDS: INSULIN DETEMIR (LEVEMIR) 100 UNIT/ML SYR SQ SCH ×2 (07:45→20:53)
[2020-06-24] MEDS: predniSONE 20 MG TAB PO SCH (07:45)
[2020-06-24] MEDS: AZITHROMYCIN 500 MG TAB PO SCH (07:46)
[2020-06-24] MEDS: POTASSIUM CHLORIDE ER 20 MEQ TAB.ER PO SCH (07:46)
[2020-06-24] MEDS: IPRATROPIUM-ALBUTEROL 3 ML NEB INHALATION SCH ×4 (08:30→21:33)
[2020-06-24] MEDS: BUDESONIDE 1 MG/2 ML NEBU INHALATION SCH ×2 (08:30→21:32)
[2020-06-24] MEDS: FORMOTEROL FUMARATE 20 MCG/2 ML NEBU INHALATION SCH ×2 (08:30→21:32)
[2020-06-24 11:51] LABS: Glucose,Whole Blood 147 mg/dL (75-99)
--- NOTE | 2020-06-24 12:01 | PN ---
PROGRESS NOTE 70-year-old female, she had a left big toe amputation for an infected gangrene of the left foot big toe. The patient is still short of breath. We changed the dressing today. Incision is healing. We will continue with local wound care and IV antibiotic. Advised to have a nonweightbearing. MMODL / IJN: [id number] /
--- NOTE | 2020-06-24 12:15 | P.PN ---
Subjective Progress Note Date: 06/24/20 Principal diagnosis: Acute exacerbation of mild intermittent chronic bronchial asthma 70-year-old white female patient of Dr. Sanderson with past medical history of mild intermittent bronchial asthma on [place], patient follows with Dr. Mcqueen on an outpatient basis and the pulmonary clinic. She has a history of type 2 diabetes mellitus, hypertension, previous NH, coronary arteriosclerosis, degenerative joint disease, previous history of smoking, peripheral vascular disease with history of amputation of 2 toes on her right foot. Patient came in on 06/16/2020 for evaluation of chronic nonhealing ulceration to the left great toe and left lateral foot. Patient also Dr. Gregory in the wound clinic and underwent a runoff that showed some blockage to the left lower extremity, however intervention was not feasible related to the location of the blockage. On 06/18/2020 patient underwent a left great toe amputation. She is currently on antibiotics, wound culture showed Tomasa species, and left great toe tissue culture showed coagulase-negative staph, p atient is on a combination of azithromycin, Unasyn and vancomycin, Dr. Mccabe from infectious disease is following. Patient was noted to be increasingly wheezy and coughing, she is having an acute asthma exacerbation. Chest x-ray today showed some non-questionable basilar atelectasis or scarring, reactive airways disease. Patient was started on IV steroids, breathing treatments in the form of DuoNeb, Pulmicort, were asked to see the patient in consultation On 06/21/2020 patient seen in follow-up on medical surgical floor, she is not back to baseline, but breathing easier, less dyspneic and bronchospastic. She continues on high-dose IV steroids 60 mg every 6 hours, nebulized bronchodilato rs, azithromycin, Unasyn and vancomycin. She has had no fever or chills, no hemoptysis, no chest tightness, equal air entry bilaterally, she is currently on 2 L of oxygen pulse ox 91%. She is up to the bedside commode, her left foot with with a dressing, ID service is following. The patient is seen today 06/22/2020 on the regular medical floor. She is currently sitting up at the bedside. Awake and alert in no acute distress. She is breathing easier today day compared to yesterday. Less bronchospastic and wheezing. Maintaining good O2 saturations in the mid 90s on 2 L/m per nasal cannula. She does however continued complaining of increased dyspnea on minimal exertion. D-dimer pending. Continued on bronchodilators, IV Solu-Medrol, antibiotics in the form of vancomycin, Unasyn and azithromycin. Cultures of the left great toe had revealed coag-negative staph diphtheroid species. Status post amputation. The patient is seen today 06/23/2020 up on the regular medical floor. She is currently sitting up in bed. Awake and alert in no acute distress. She did receive a PICC line placement to the left upper extremity. Remains on vancomycin and Unasyn. Creatinine 0.70. CT angiogram revealed no evidence for acute pulmonary embolism. There was some mild fluid volume overload with tiny bilateral effusions and mild interstitial edema. ProBNP 3290. Current receiving Lasix 40 mg IV daily. Remains on bronchodilators, prednisone. Maintaining O2 saturations in the 90s on 2 L/m per nasal cannula. Afebrile. The patient is seen today 06/24/2020 in follow-up on the regular medical floor. She is currently resting comfortably in bed. Awake and alert in no acute distress. Maintaining O2 saturations in the 90s on room air. Sodium 130. Potassium 3.8. Creatinine 0.62. She remains on DuoNeb inhalations, Pulmicort and Perforomist inhalations, prednisone. Remains on vancomycin. PICC line placed yesterday. Echocardiogram reveals mild to moderately impaired left mook tricular systolic function with ejection fraction 40-45%. Moderate to severe mitral regurgitation. No evidence of vegetation. Objective - Vital Signs Vital signs: Vital Signs Temp 97.8 F 06/24/20 08:00 Pulse 80 06/24/20 11:46 Resp 20 06/24/20 08:00 BP 130/64 06/24/20 08:00 Pulse Ox 94 L 06/24/20 08:00 Intake & Output 06/23/20 06/24/20 06/24/20 18:59 06:59 18:59 Weight 105.7 kg 105.2 kg Other: Voiding Method Bedside Commode Bedside Commode - Exam GENERAL EXAM: Alert, very pleasant, 70-year-old female patient, on room air, comfortable in no apparent distress. HEAD: Normocephalic/atraumatic. EYES: Normal reaction of pupils, equal size. Conjunctiva pink, sclera white. NOSE: Clear with pink turbinates. THROAT: No erythema or exudates. NECK: No masses, no JVD, no thyroid enlargement, no adenopathy. CHEST: No chest wall deformity. Symmetrical expansion. LUNGS: Equal air entry with bilateral end expiratory wheeze, faint crackles in the bilateral posterior bases, diminished CVS: Regular rate and rhythm, normal S1 and S2, no gallops, no murmurs, no rubs ABDOMEN: Soft, nontender. No hepatosplenomegaly, normal bowel sounds, no guarding or rigidity. EXTREMITIES: No clubbing, no edema, no cyanosis, 2+ pulses and upper and lower extremities. Patient has left great toe amputated, incision is covered with the dressing, and Terence wrap, patient also has a nonhealing wound on the lateral aspect of the left foot. 2 missing toes on the right foot from previous history of amputation MUSCULOSKELETAL: Muscle strength and tone normal. SPINE: No scoliosis or deformity SKIN: No rashes CENTRAL NERVOUS SYSTEM: Alert and oriented -3. No focal deficits, tone is normal in all 4 extremities. PSYCHIATRIC: Alert and oriented -3. Appropriate affect. Intact judgment and insight. - Labs CBC & Chem 7: 06/21/20 06:25 06/24/20 07:03 Labs: Abnormal Lab Results - Last 24 Hours (Table) 06/23/20 06/23/20 06/24/20 Range/Units 16:45 21:23 02:39 Chloride (98-107) mmol/L BUN (7-17) mg/dL Glucose (74-99) mg/dL POC Glucose (mg/dL) 168 H 181 H 103 H (75-99) mg/dL Calcium (8.4-10.2) mg/dL 06/24/20 06/24/20 06/24/20 Range/Units 06:58 07:03 11:49 Chloride 110 H (98-107) mmol/L BUN 24 H (7-17) mg/dL Glucose 56 L (74-99) mg/dL POC Glucose (mg/dL) 50 L 147 H (75-99) mg/dL Calcium 8.3 L (8.4-10.2) mg/dL Microbiology - Last 24 Hours (Table) 06/18/20 16:01 Anaerobic Culture - Final Toe - Left First Assessment and Plan Assessment: 1 Acute exacerbation of chronic bronchial asthma and COPD, mild intermittent bronchial asthma 2 Acute exacerbation of chronic diastolic congestive heart failure, possible component of systolic congestive heart failure with ejection fraction 40-45% 3 Nonhealing wound on the left great toe and left foot related to osteomyelitis, status post left great toe amputation on 06/18/2020 4 Status post amputation of 2 digits on right foot 5 Diabetes mellitus type 2, poorly controlled with hyperglycemia 6 Peripheral vascular disease status post stenting to the right lower extremity 7 Hyperlipidemia 8 Former smoker 9 Degenerative disc disease 10 Moderate to severe mitral regurgitation Plan: The patient was seen and evaluated by Dr. Rojas Continue bronchodilators, prednisone Continue antibiotics per ID services PICC line has been placed We will continue to follow I, the cosigning physician, performed a history & physical examination of the patient. Lungs sounds with faint end expiratory wheeze, diminished, crackles in the posterior bases. Maintaining good O2 saturations in the 90s on room air. I discussed the assessment and plan of care with my nurse practitioner, Ashley Xiao. I attest to the above note as dictated by her.
--- NOTE | 2020-06-24 14:48 | P.PN ---
Subjective Progress Note Date: 06/24/20 This is a 70-year-old patient of Dr. Sanderson with past medical history of asthma, CHF, COPD, CVA, diabetes, hyperlipidemia, hypertension, rheumatoid arthritis indication of the left great toe. And a chronic ulceration to the left great toe and left lateral foot. Patient is a former nonsmoker who stopped smoking approximately 27 years ago. She drinks alcohol occasionally. Denies any illicit drug use or marijuana. The patient presented to the emergency room for a nonhealing ulceration to the left great toe and left lateral foot. Patient has been seen by the wound care center and Dr. Gregory for the last few weeks. Dr. Gregory did perform a run off which did show some blockage to the left lower extremity. However due to the location of the blockage she was unable to do any intervention at this time. Patient has been utilizing multiple advanced testing. On Friday patient was seen by her home health care nurse who was concerned about the increased drainage to the site and instructed her to go to the emergency room. In the emergency room a x-ray was performed which did show osteo-myelitis to the left great toe. At this time patient is resting comfortably in bed with no acute distress. Patient has dressing to the left foot. Upon examination the right foot shows dried calloused area to the distal portion of the right great toe with redness to the periwound. The right lateral foot ulceration appears to be epithelialized. ABC 7.5, hemoglobin 13.8, platelets 288, potassium 4.4, BUN 14, creatinine 0.59, glucose 221. 06/18: Is found sitting up in a chair without any complaints or concerns. Patient is in no acute distress. She is scheduled to have a left great toe amputation today around 12. Patient may require antibiotics for approximately 1 week post amputation she should be able to go home within the next few days. Patient remains afebrile, blood pressure 146/77, pulse rate 72, respirations 18 nonlabored, pulse ox 94% on room air. Sugars are elevated in the 20s to 260s. 06/19: She is status post left great toe amputation as of yesterday with Dr. Gregory. Pain is currently controlled. She denies any fever or chills. Patient has been afebrile, heart rate 64, blood pressure 117/65, pulse ox 100% on room air. Blood sugars have been elevated running between 206 and 302. Wound culture is Tomasa species not albicans. Blood culture no growth at 48 hours. Tissue cultures obtained during surgery are in process. The patient is followed by Dr. Mccabe and currently on Unasyn and vancomycin. Patient's last A1c was 9 on March 2020. Repeat A1c ordered. 06/20: A1c is 8.8. Blood sugars have been running between 128 and 259. Wound culture remains in process. Patient is on Unasyn and vancomycin followed by Dr. Mccabe. She has been afebrile, heart rate 88, blood pressure 132/80, pulse ox 90% on room air. Patient is complaining of wheezing this morning. We have added in Solu-Medrol and consult with Dr. Rojas, her pulmonary medicine doctor. We have also increased insulins. 06/21: Patient is complaining of left leg pain which is not controlled with tramadol which will be increased to 100 mg 3 times daily and also [place] will be available if patient would like to try this for pain control. She denies having any abdominal pain and no diarrhea. Blood sugars are quite elevated and insulin will be adjusted again today with Levemir to 35 units twice daily and scheduled NovoLog to 28 units 3 times daily with meals. Wound culture is coag-negative staph 2, diphtheroid species. Patient is continued on Unasyn and vancomycin. 06/22: Patient didn't continues to have audible wheezing while ambulating with physical therapy and continued on DuoNeb treatments, Pulmicort and IV Solu- Medrol that his been transitioned to prednisone. Dr. Mccabe is recommended 2 weeks of vancomycin and pharmacy is adjusting dose due to high trough. D-dimer ordered today was 1.32. Blood sugars are running between [address] angiogram has been ordered by pulmonary medicine. Anticipate possible discharge by tomorrow. PICC line has been ordered by ID. 06/23: CT angiogram of the chest revealed no evidence of acute pulmonary emb olism. Mild fluid overload state with tiny bilateral pleural effusions and mild alveolar and interstitial edema. ProBNP 3290. Patient has been started on IV Lasix 40 mg daily. PICC line was inserted today. Wound cultures are still in progress and there is a positive anaerobic not identified. Patient is continued on IV vancomycin, dosed by pharmacy. Yesterday, patient's pulse ox dropped down to 83% with ambulation. We'll plan to set up home oxygen therapy but will reassess prior to discharge. Patient was transitioned off IV Solu-Medrol to oral prednisone starting yesterday afternoon and blood sugar was low today with 92 at breakfast and 55 at lunch. Insulins were adjusted to Levemir 20 units twice daily and NovoLog 15 units 3 times daily with meals. Patient does state that she is eating less food here than she normally does at home. Echocardiogram reveals EF of 40-45%, moderate concentric left hypertrophy, moderate to severe mitral regurgitation, mild tricuspid regurgitation, mild pulmonary hypertension. At this time, the patient will continue to be monitored. Doubt that she will be ready for discharge clinically until Friday but will hold discharge until Friday due to set up of IV antibiotics for home. She will also need reassessment of home oxygen need. 06/24 and patient examined bedside continues to have significant cough and wheezing at rest. Denies any chest pain dizziness or lower extremity edema. Does have been to the pain in the left lower extremity. Patient would need IV antibiotics on discharge. Possible plan to discharge on Friday. Vitals are stable with a temp of 97.8 pulse 72 respiratory rate 20 blood pressure 1:30/64 oxygen saturation 94% on 3 L. Creatinine is stable at 0.62. Blood sugar controlled from 93-180. Echocardiogram with mild to moderately impaired ejection fraction of 40-45% with moderate concentric left ventricular hypertrophy and moderate to severe mitral regurgitation. Continue Lasix at 40 I V daily. Plan for vancomycin for 2 weeks post discharge Review Of Systems: Constitutional: No fever, no chills, no night sweats. No weight change. No weakness, fatigue or lethargy. No daytime sleepiness. EENT: No headache. No blurred vision or double vision, no loss of vision. No loss of Hearing, no ringing in the ears, no dizziness. No nasal drainage or congestion. No epistaxis. No sore throat. Lungs: Reports shortness of breath, cough, no sputum production. Reports wheezing. Reports shortness of breath with activity. Cardiovascular: No chest pain, no lower extremity edema. No palpitations. No paroxysmal nocturnal dyspnea. No orthopnea. No lightheadedness or dizziness. No syncopal episodes. Abdominal: no abdominal discomfort. No nausea, vomiting. no diarrhea. No constipation. No bloody or tarry stools. no loss of appetite. Genitourinary: No dysuria, increased frequency, urgency. No urinary retention. Musculoskeletal: No myalgias. No muscle weakness, no gait dysfunction, no frequent falls. No back pain. No neck pain. Left leg pain. Integumentary: Left great toe wounds, no lesions. No rash or pruritus. No unusual bruising. No change in hair or nails. Neurologic: No aphasia. No facial droop. No change in mentation. No head injury. No headache. No paralysis. No paresthesia. Psychiatric: No depression. No anxiety. No mood swings. Endocrine: No abnormal blood sugars. No weight change. No excessive sweating or thirst. Objective - Vital Signs Vital signs: Vital Signs Temp 97.8 F 06/24/20 08:00 Pulse 80 06/24/20 11:46 Resp 20 06/24/20 08:00 BP 130/64 06/24/20 08:00 Pulse Ox 94 L 06/24/20 08:00 Intake & Output 06/23/20 06/24/20 06/24/20 18:59 06:59 18:59 Intake Total 250 Balance 250 Weight 105.7 kg 105.2 kg Intake: Oral 250 Other: Voiding Method Bedside Commode Bedside Commode - Exam 1. Diabetic foot ulcer left great toe with osteomyelitis status post amputation. Consult vascular surgery, consult infectious disease. Local wound care as prescribed by Dr. Gregory. Tramadol increased to 100 mg 3 times daily and added [place] 5 one every 4 hours as needed. Consult with PT and OT following. 2. Osteomyelitis status post amputation Consult infectious disease. Unasyn discontinued, vancomycin 1500 mg every 16 hours, blood cultures and wound cultu re ordered. PICC line has been inserted. 3. Acute on chronic systolic heart failure, present on admission. EF 40-45% Patient will be started on Lasix 40 mg daily. Monitor I&O and daily weights, monitor electrolytes and renal function. Until you metoprolol 50 mg daily. 4. Diabetes mellitus type II uncontrolled with hyperglycemia and hypoglycemia. Continue Levemir decreased to 20 units twice a day, NovoLog decreased to 15 units before meals 3 times a day continue with sliding scale as needed. Patient is on a consistent carb diet. 5. Peripheral vascular disease status post stent to right lower extremity and right great toe amputation 6. Hyperlipidemia. Lipitor 40 mg by mouth at bedtime 7. Hypertension. Norvasc 10 mg by mouth, Cozaar 50 mg by mouth daily 8. COPD, stable. 9. Recurrent Depression. Celexa 40 mg by mouth at bedtime 10. Acute Asthma exacerbation, possible COPD exacerbation. Solu-Medrol physician to oral prednisone 40 mg daily, continue DuoNeb treatments 4 times daily and every 2 hours as needed, Pulmicort twice daily, pulmonary medicine consult. 11. GI prophylaxis Pepcid 20 mg by mouth twice a day 11. DVT prophylaxis. Pneumatic compression garment CODE STATUS: Full code Discharge plan Home Friday with IV antibiotics. PICC line has been inserted. - Labs CBC & Chem 7: 06/21/20 06:25 06/24/20 07:03 Labs: Abnormal Lab Results - Last 24 Hours (Table) 06/23/20 06/23/20 06/24/20 Range/Units 16:45 21:23 02:39 Chloride (98-107) mmol/L BUN (7-17) mg/dL Glucose (74-99) mg/dL POC Glucose (mg/dL) 168 H 181 H 103 H (75-99) mg/dL Calcium (8.4-10.2) mg/dL 06/24/20 06/24/20 06/24/20 Range/Units 06:58 07:03 11:49 Chloride 110 H (98-107) mmol/L BUN 24 H (7-17) mg/dL Glucose 56 L (74-99) mg/dL POC Glucose (mg/dL) 50 L 147 H (75-99) mg/dL Calcium 8.3 L (8.4-10.2) mg/dL Microbiology - Last 24 Hours (Table) 06/18/20 16:01 Anaerobic Culture - Final Toe - Left First
[2020-06-24 16:34] LABS: Glucose,Whole Blood 179 mg/dL (75-99)
[2020-06-24 20:49] LABS: Glucose,Whole Blood 259 mg/dL (75-99)
[2020-06-24] MEDS: ATORVASTATIN 20 MG TAB PO SCH (20:52)
[2020-06-24] MEDS: PREGABALIN 75 MG CAP PO SCH (20:53)
[2020-06-24] MEDS: HYDROcodone/APAP 5-325MG 1 EACH TAB PO PRN (22:38)
--- NOTE | 2020-06-24 22:55 | PN ---
PROGRESS NOTE DATE OF SERVICE: 06/24/2020 REASON FOR FOLLOWUP: Left big toe osteomyelitis. INTERVAL HISTORY: The patient is currently afebrile. The patient is breathing comfortably. The patient denies having any chest pain. Still complains of shortness of breath. Occasional cough. Not bringing up any sputum. No abdominal pain. No pain to the right big toe. PHYSICAL EXAMINATION: Blood pressure 156/74, pulse of 73, temperature 98.6. She is 93% on 3 L nasal cannula. General description is an elderly middle-aged female up in the bed in no distress. Respiratory system: Unlabored breathing, decreased intensity of breath sounds. No wheeze. HEART: S1, S2. Regular rate and rhythm. ABDOMEN: Soft, no tenderness. LABS: BUN of 24, creatinine 0.62. DIAGNOSTIC IMPRESSION AND PLAN: Patient with left big toe osteomyelitis status post amputation with infected part removed the patient on a short course of IV antibiotic in the form of vancomycin. Local care to continue per Surgery. Continue supportive care. MMODL / IJN: [id number] /
[2020-06-25 03:30] LABS: Glucose,Whole Blood 207 mg/dL (75-99)
[2020-06-25 07:03] LABS: Glucose,Whole Blood 109 mg/dL (75-99)
[2020-06-25] MEDS: IPRATROPIUM-ALBUTEROL 3 ML NEB INHALATION SCH ×4 (07:28→20:45)
[2020-06-25] MEDS: FORMOTEROL FUMARATE 20 MCG/2 ML NEBU INHALATION SCH ×2 (07:28→20:45)
[2020-06-25] MEDS: BUDESONIDE 1 MG/2 ML NEBU INHALATION SCH ×2 (07:29→20:45)
[2020-06-25] MEDS: FUROSEMIDE 10 MG/ML 4 ML VIAL IV SCH (07:49)
[2020-06-25] MEDS: INSULIN DETEMIR (LEVEMIR) 100 UNIT/ML SYR SQ SCH (07:57)
[2020-06-25] MEDS: INSULIN ASPART (NovoLOG) 100 UNIT/ML VIAL SQ SCH ×6 (07:57→20:15)
[2020-06-25] MEDS: amLODIPine 10 MG TAB PO SCH (07:59)
[2020-06-25] MEDS: POTASSIUM CHLORIDE ER 20 MEQ TAB.ER PO SCH (07:59)
[2020-06-25] MEDS: FAMOTIDINE 20 MG TAB PO SCH (07:59)
[2020-06-25] MEDS: METOPROLOL SUCCINATE (ER) 50 MG TAB.ER.24H PO SCH (07:59)
[2020-06-25] MEDS: ASPIRIN 81 MG PO SCH (07:59)
[2020-06-25] MEDS: CITALOPRAM HYDROBROMIDE 20 MG TAB PO SCH (07:59)
[2020-06-25] MEDS: LOSARTAN 50 MG TAB PO SCH (07:59)
[2020-06-25] MEDS: predniSONE 20 MG TAB PO SCH (07:59)
[2020-06-25] MEDS: AZITHROMYCIN 500 MG TAB PO SCH (08:00)
[2020-06-25] MEDS: VANCOMYCIN 1,500 MG in SODIUM CHLORIDE 0.9% 250 ML IVPB SCH ×2 (08:06→23:20)
[2020-06-25 09:28] LABS: Anion Gap 8.1 mmol/L (4.00-12.00); BUN/Creat Ratio 31.43 Ratio (12.00-20.00); Calcium 8.1 mg/dL (8.7-10.3); Carbon Dioxide 27.9 mmol/L (21.6-31.8); Non-African American GFR(CKD) 87.2 (60.0-200.0); Potassium 3.7 mmol/L (3.5-5.5)
[2020-06-25 11:25] LABS: Glucose,Whole Blood 66 mg/dL (75-99)
[2020-06-25 12:16] LABS: Glucose,Whole Blood 119 mg/dL (75-99)
--- NOTE | 2020-06-25 14:27 | P.PN ---
Subjective Progress Note Date: 06/25/20 Principal diagnosis: Acute exacerbation of mild intermittent chronic bronchial asthma 70-year-old white female patient of Dr. Sanderson with past medical history of mild intermittent bronchial asthma on Dilan Kay, patient follows with Dr. Mcqueen on an outpatient basis and the pulmonary clinic. She has a history of type 2 diabetes mellitus, hypertension, previous SC, coronary arteriosclerosis, degenerative joint disease, previous history of smoking, peripheral vascular disease with history of amputation of 2 toes on her right foot. Patient came in on 06/16/2020 for evaluation of chronic nonhealing ulceration to the left great toe and left lateral foot. Patient also Dr. Gregory in the wound clinic and underwent a runoff that showed some blockage to the left lower extremity, however intervention was not feasible related to the location of the blockage. On 06/18/2020 patient underwent a left great toe amputation. She is currently on antibiotics, wound culture showed Tomasa species, and left great toe tissue culture showed coagulase-negative staph, p atient is on a combination of azithromycin, Unasyn and vancomycin, Dr. Mccabe from infectious disease is following. Patient was noted to be increasingly wheezy and coughing, she is having an acute asthma exacerbation. Chest x-ray today showed some non-questionable basilar atelectasis or scarring, reactive airways disease. Patient was started on IV steroids, breathing treatments in the form of DuoNeb, Pulmicort, were asked to see the patient in consultation On 06/21/2020 patient seen in follow-up on medical surgical floor, she is not back to baseline, but breathing easier, less dyspneic and bronchospastic. She continues on high-dose IV steroids 60 mg every 6 hours, nebulized bronchodilato rs, azithromycin, Unasyn and vancomycin. She has had no fever or chills, no hemoptysis, no chest tightness, equal air entry bilaterally, she is currently on 2 L of oxygen pulse ox 91%. She is up to the bedside commode, her left foot with with a dressing, ID service is following. The patient is seen today 06/22/2020 on the regular medical floor. She is currently sitting up at the bedside. Awake and alert in no acute distress. She is breathing easier today day compared to yesterday. Less bronchospastic and wheezing. Maintaining good O2 saturations in the mid 90s on 2 L/m per nasal cannula. She does however continued complaining of increased dyspnea on minimal exertion. D-dimer pending. Continued on bronchodilators, IV Solu-Medrol, antibiotics in the form of vancomycin, Unasyn and azithromycin. Cultures of the left great toe had revealed coag-negative staph diphtheroid species. Status post amputation. The patient is seen today 06/23/2020 up on the regular medical floor. She is currently sitting up in bed. Awake and alert in no acute distress. She did receive a PICC line placement to the left upper extremity. Remains on vancomycin and Unasyn. Creatinine 0.70. CT angiogram revealed no evidence for acute pulmonary embolism. There was some mild fluid volume overload with tiny bilateral effusions and mild interstitial edema. ProBNP 3290. Current receiving Lasix 40 mg IV daily. Remains on bronchodilators, prednisone. Maintaining O2 saturations in the 90s on 2 L/m per nasal cannula. Afebrile. The patient is seen today 06/24/2020 in follow-up on the regular medical floor. She is currently resting comfortably in bed. Awake and alert in no acute distress. Maintaining O2 saturations in the 90s on room air. Sodium 130. Potassium 3.8. Creatinine 0.62. She remains on DuoNeb inhalations, Pulmicort and Perforomist inhalations, prednisone. Remains on vancomycin. PICC line placed yesterday. Echocardiogram reveals mild to moderately impaired left mook tricular systolic function with ejection fraction 40-45%. Moderate to severe mitral regurgitation. No evidence of vegetation. Patient seen today 06/25/2020 in follow-up on the regular medical floor. She is currently sitting up in bed. Awake and alert in no acute distress. Doing better today compared to yesterday. Denies any worsening shortness of breath, cough or congestion. Still has some dyspnea on minimal exertion. Sodium 142. Potassium 3.7. Creatinine 0.7. She remains on DuoNeb inhalations, Pulmicort and Perforomist inhalations, prednisone. Currently on vancomycin, azithromycin. PICC line in place. Objective - Vital Signs Vital signs: Vital Signs Temp 98.2 F 06/25/20 13:52 Pulse 76 06/25/20 13:52 Resp 17 06/25/20 13:52 BP 131/60 06/25/20 13:52 Pulse Ox 94 L 06/25/20 13:52 Intake & Output 06/24/20 06/25/20 06/25/20 17:59 06:59 18:59 Intake Total 550 Balance 550 Weight 105 kg Intake: Oral 550 Other: Voiding Method Bedside Commode - Exam GENERAL EXAM: Alert, very pleasant, 70-year-old female patient, on 3 L/m per nasal cannula, comfortable in no apparent distress. HEAD: Normocephalic/atraumatic. EYES: Normal reaction of pupils, equal size. Conjunctiva pink, sclera white. NOSE: Clear with pink turbinates. THROAT: No erythema or exudates. NECK: No masses, no JVD, no thyroid enlargement, no adenopathy. CHEST: No chest wall deformity. Symmetrical expansion. LUNGS: Equal air entry with bilateral end expiratory wheeze, faint crackles in the bilateral posterior bases, diminished CVS: Regular rate and rhythm, normal S1 and S2, no gallops, no murmurs, no rubs ABDOMEN: Soft, nontender. No hepatosplenomegaly, normal bowel sounds, no guarding or rigidity. EXTREMITIES: No clubbing, no edema, no cyanosis, 2+ pulses and upper and lower extremities. Patient has left great toe amputated, incision is covered with the dressing, and Terence wrap, patient also has a nonhealing wound on the lateral aspect of the left foot. 2 missing toes on the right foot from previous history of amputation MUSCULOSKELETAL: Muscle strength and tone normal. SPINE: No scoliosis or deformity SKIN: No rashes CENTRAL NERVOUS SYSTEM: Alert and oriented -3. No focal deficits, tone is normal in all 4 extremities. PSYCHIATRIC: Alert and oriented -3. Appropriate affect. Intact judgment and insight. - Labs CBC & Chem 7: 06/21/20 06:25 06/25/20 06:36 Labs: Abnormal Lab Results - Last 24 Hours (Table) 06/24/20 06/24/20 06/25/20 Range/Units 16:29 20:48 03:29 BUN/Creatinine Ratio (12.00-20.00) Ratio Glucose (70-110) mg/dL POC Glucose (mg/dL) 179 H 259 H 207 H (75-99) mg/dL Calcium (8.7-10.3) mg/dL 06/25/20 06/25/20 06/25/20 Range/Units 06:36 06:58 11:22 BUN/Creatinine Ratio 31.43 H (12.00-20.00) Ratio Glucose 116 H (70-110) mg/dL POC Glucose (mg/dL) 109 H 66 L (75-99) mg/dL Calcium 8.1 L (8.7-10.3) mg/dL 06/25/20 Range/Units 12:14 BUN/Creatinine Ratio (12.00-20.00) Ratio Glucose (70-110) mg/dL POC Glucose (mg/dL) 119 H (75-99) mg/dL Calcium (8.7-10.3) mg/dL Assessment and Plan Assessment: 1 Acute exacerbation of chronic bronchial asthma and COPD, mild intermittent bronchial asthma 2 Acute exacerbation of chronic diastolic congestive heart failure, possible component of systolic congestive heart failure with ejection fraction 40-45% 3 Nonhealing wound on the left great toe and left foot related to osteomyelitis, status post left great toe amputation on 06/18/2020 4 Status post amputation of 2 digits on right foot 5 Diabetes mellitus type 2, poorly controlled with hyperglycemia 6 Peripheral vascular disease status post stenting to the right lower extremity 7 Hyperlipidemia 8 Former smoker 9 Degenerative disc disease 10 Moderate to severe mitral regurgitation Plan: The patient was seen and evaluated by Dr. Rojas Continue bronchodilators, prednisone Continue antibiotics Probable discharge in the a.m. We will continue to follow I, the cosigning physician, performed a history & physical examination of the patient. Lungs sounds with faint end expiratory wheeze, diminished, crackles in the posterior bases. Maintaining good O2 saturations in the 90s on 3 L/m per nasal cannula. I discussed the assessment and plan of care with my nurse prac titioner, Ashley Xiao. I attest to the above note as dictated by her.
--- NOTE | 2020-06-25 16:32 | P.PN ---
Subjective Progress Note Date: 06/25/20 This is a 70-year-old patient of Dr. Sanderson with past medical history of asthma, CHF, COPD, CVA, diabetes, hyperlipidemia, hypertension, rheumatoid arthritis indication of the left great toe. And a chronic ulceration to the left great toe and left lateral foot. Patient is a former nonsmoker who stopped smoking approximately 27 years ago. She drinks alcohol occasionally. Denies any illicit drug use or marijuana. The patient presented to the emergency room for a nonhealing ulceration to the left great toe and left lateral foot. Patient has been seen by the wound care center and Dr. Gregory for the last few weeks. Dr. Gregory did perform a run off which did show some blockage to the left lower extremity. However due to the location of the blockage she was unable to do any intervention at this time. Patient has been utilizing multiple advanced testing. On Friday patient was seen by her home health care nurse who was concerned about the increased drainage to the site and instructed her to go to the emergency room. In the emergency room a x-ray was performed which did show osteo-myelitis to the left great toe. At this time patient is resting comfortably in bed with no acute distress. Patient has dressing to the left foot. Upon examination the right foot shows dried calloused area to the distal portion of the right great toe with redness to the periwound. The right lateral foot ulceration appears to be epithelialized. ABC 7.5, hemoglobin 13.8, platelets 288, potassium 4.4, BUN 14, creatinine 0.59, glucose 221. 06/18: Is found sitting up in a chair without any complaints or concerns. Patient is in no acute distress. She is scheduled to have a left great toe amputation today around 12. Patient may require antibiotics for approximately 1 week post amputation she should be able to go home within the next few days. Patient remains afebrile, blood pressure 146/77, pulse rate 72, respirations 18 nonlabored, pulse ox 94% on room air. Sugars are elevated in the 20s to 260s. 06/19: She is status post left great toe amputation as of yesterday with Dr. Gregory. Pain is currently controlled. She denies any fever or chills. Patient has been afebrile, heart rate 64, blood pressure 117/65, pulse ox 100% on room air. Blood sugars have been elevated running between 206 and 302. Wound culture is Tomasa species not albicans. Blood culture no growth at 48 hours. Tissue cultures obtained during surgery are in process. The patient is followed by Dr. Mccabe and currently on Unasyn and vancomycin. Patient's last A1c was 9 on March 2020. Repeat A1c ordered. 06/20: A1c is 8.8. Blood sugars have been running between 128 and 259. Wound culture remains in process. Patient is on Unasyn and vancomycin followed by Dr. Mccabe. She has been afebrile, heart rate 88, blood pressure 132/80, pulse ox 90% on room air. Patient is complaining of wheezing this morning. We have added in Solu-Medrol and consult with Dr. Rojas, her pulmonary medicine doctor. We have also increased insulins. 06/21: Patient is complaining of left leg pain which is not controlled with tramadol which will be increased to 100 mg 3 times daily and also [place] will be available if patient would like to try this for pain control. She denies having any abdominal pain and no diarrhea. Blood sugars are quite elevated and insulin will be adjusted again today with Levemir to 35 units twice daily and scheduled NovoLog to 28 units 3 times daily with meals. Wound culture is coag-negative staph 2, diphtheroid species. Patient is continued on Unasyn and vancomycin. 06/22: Patient didn't continues to have audible wheezing while ambulating with physical therapy and continued on DuoNeb treatments, Pulmicort and IV Solu- Medrol that his been transitioned to prednisone. Dr. Mccabe is recommended 2 weeks of vancomycin and pharmacy is adjusting dose due to high trough. D-dimer ordered today was 1.32. Blood sugars are running between [address] angiogram has been ordered by pulmonary medicine. Anticipate possible discharge by tomorrow. PICC line has been ordered by ID. 06/23: CT angiogram of the chest revealed no evidence of acute pulmonary emb olism. Mild fluid overload state with tiny bilateral pleural effusions and mild alveolar and interstitial edema. ProBNP 3290. Patient has been started on IV Lasix 40 mg daily. PICC line was inserted today. Wound cultures are still in progress and there is a positive anaerobic not identified. Patient is continued on IV vancomycin, dosed by pharmacy. Yesterday, patient's pulse ox dropped down to 83% with ambulation. We'll plan to set up home oxygen therapy but will reassess prior to discharge. Patient was transitioned off IV Solu-Medrol to oral prednisone starting yesterday afternoon and blood sugar was low today with 92 at breakfast and 55 at lunch. Insulins were adjusted to Levemir 20 units twice daily and NovoLog 15 units 3 times daily with meals. Patient does state that she is eating less food here than she normally does at home. Echocardiogram reveals EF of 40-45%, moderate concentric left hypertrophy, moderate to severe mitral regurgitation, mild tricuspid regurgitation, mild pulmonary hypertension. At this time, the patient will continue to be monitored. Doubt that she will be ready for discharge clinically until Friday but will hold discharge until Friday due to set up of IV antibiotics for home. She will also need reassessment of home oxygen need. 06/24 and patient examined bedside continues to have significant cough and wheezing at rest. Denies any chest pain dizziness or lower extremity edema. Does have been to the pain in the left lower extremity. Patient would need IV antibiotics on discharge. Possible plan to discharge on Friday. Vitals are stable with a temp of 97.8 pulse 72 respiratory rate 20 blood pressure 1:30/64 oxygen saturation 94% on 3 L. Creatinine is stable at 0.62. Blood sugar controlled from 93-180. Echocardiogram with mild to moderately impaired ejection fraction of 40-45% with moderate concentric left ventricular hypertrophy and moderate to severe mitral regurgitation. Continue Lasix at 40 I V daily. Plan for vancomycin for 2 weeks post discharge 06/25 patient examined bedside. Continue to require 3 L of oxygen saturating at 94%. Blood afebrile respiratory rate 16 blood pressure 117/60. Patient did have an episode of hypoglycemia this morning to 66 glucose ranging from 109-111. Labs otherwise stable creatinine at 0.7. Patient was evaluated by pulmonary for possible discharge tomorrow. Continue prednisone at 40 mg by mouth daily. Due to persistent hypoglycemia Lantus decreased to 10 mg subcu daily at bedtime from 20 twice a day. Mealtime insulin discontinued. Continue sliding scale insulin. Patient's insulin need to be adjusted prior to discharge. Would need evaluation for home oxygen with walking. Review Of Systems: Constitutional: No fever, no chills, no night sweats. No weight change. No weakness, fatigue or lethargy. No daytime sleepiness. EENT: No headache. No blurred vision or double vision, no loss of vision. No loss of Hearing, no ringing in the ears, no dizziness. No nasal drainage or congestion. No epistaxis. No sore throat. Lungs: Reports shortness of breath, cough, no sputum production. Reports wheezing. Reports shortness of breath with activity. Cardiovascular: No chest pain, no lower extremity edema. No palpitations. No paroxysmal nocturnal dyspnea. No orthopnea. No lightheadedness or dizziness. No syncopal episodes. Abdominal: no abdominal discomfort. No nausea, vomiting. no diarrhea. No cons tipation. No bloody or tarry stools. no loss of appetite. Genitourinary: No dysuria, increased frequency, urgency. No urinary retention. Musculoskeletal: No myalgias. No muscle weakness, no gait dysfunction, no frequent falls. No back pain. No neck pain. Left leg pain. Integumentary: Left great toe wounds, no lesions. No rash or pruritus. No unusual bruising. No change in hair or nails. Neurologic: No aphasia. No facial droop. No change in mentation. No head injury. No headache. No paralysis. No paresthesia. Psychiatric: No depression. No anxiety. No mood swings. Endocrine: No abnormal blood sugars. No weight change. No excessive sweating or thirst. Objective - Vital Signs Vital signs: Vital Signs Temp 98.2 F 06/25/20 13:52 Pulse 80 06/25/20 16:23 Resp 16 06/25/20 16:23 BP 131/60 06/25/20 13:52 Pulse Ox 95 06/25/20 16:13 Intake & Output 06/24/20 06/25/20 06/25/20 17:59 06:59 18:59 Intake Total 550 Balance 550 Weight 105 kg Intake: Oral 550 Other: Voiding Method Bedside Commode - Exam 1. Diabetic foot ulcer left great toe with osteomyelitis status post amputation. Consult vascular surgery, consult infectious disease. Local wound care as prescribed by Dr. Gregory. Tramadol increased to 100 mg 3 times daily and added [place] 5 one every 4 hours as needed. Consult with PT and OT following. 2. Osteomyelitis status post amputation Consult infectious disease. Unasyn discontinued, vancomycin 1500 mg every 16 hours, blood cultures and wound culture ordered. PICC line has been inserted. 3. Acute on chronic systolic heart failure, present on admission. EF 40-45% Patient will be started on Lasix 40 mg daily. Monitor I&O and daily weights, monitor electrolytes and renal function. Until you metoprolol 50 mg daily. 4. Diabetes mellitus type II uncontrolled with hyperglycemia and hypoglycemia. Levemir decreased to 10 units once a day, Ms. Martines and discontinue continue with sliding scale as needed. Patient is on a consistent carb diet. 5. Peripheral vascular disease status post stent to right lower extremity and right great toe amputation 6. Hyperlipidemia. Lipitor 40 mg by mouth at bedtime 7. Hypertension. Norvasc 10 mg by mouth, Cozaar 50 mg by mouth daily 8. COPD, stable. 9. Recurrent Depression. Celexa 40 mg by mouth at bedtime 10. Acute Asthma exacerbation, possible COPD exacerbation. Solu-Medrol switched to oral prednisone 40 mg daily, continue DuoNeb treatments 4 times daily and every 2 hours as needed, Pulmicort twice daily, pulmonary medicine consult. 11. GI prophylaxis Pepcid 20 mg by mouth twice a day 11. DVT prophylaxis. Pneumatic compression garment CODE STATUS: Full code Discharge plan Home Friday with IV antibiotics. PICC line has been inserted. - Labs CBC & Chem 7: 06/21/20 06:25 06/25/20 06:36 Labs: Abnormal Lab Results - Last 24 Hours (Table) 06/24/20 06/24/20 06/25/20 Range/Units 16:29 20:48 03:29 BUN/Creatinine Ratio (12.00-20.00) Ratio Glucose (70-110) mg/dL POC Glucose (mg/dL) 179 H 259 H 207 H (75-99) mg/dL Calcium (8.7-10.3) mg/dL 06/25/20 06/25/20 06/25/20 Range/Units 06:36 06:58 11:22 BUN/Creatinine Ratio 31.43 H (12.00-20.00) Ratio Glucose 116 H (70-110) mg/dL POC Glucose (mg/dL) 109 H 66 L (75-99) mg/dL Calcium 8.1 L (8.7-10.3) mg/dL 06/25/20 Range/Units 12:14 BUN/Creatinine Ratio (12.00-20.00) Ratio Glucose (70-110) mg/dL POC Glucose (mg/dL) 119 H (75-99) mg/dL Calcium (8.7-10.3) mg/dL
[2020-06-25 16:36] LABS: Glucose,Whole Blood 240 mg/dL (75-99)
--- NOTE | 2020-06-25 19:01 | PN ---
PROGRESS NOTE DATE OF SERVICE: 06/25/2020 REASON FOR FOLLOWUP: Left big toe osteomyelitis. INTERVAL HISTORY: The patient is currently afebrile. The patient is feeling better, breathing slightly comfortably. Denies having any chest pain. Occasional cough. No abdominal pain and no pain to the left big toe. PHYSICAL EXAMINATION: Blood pressure 131/60, pulse of 76, temperature 98.2. She is 95% on 3 L nasal cannula. General description is an elderly female up in the bed in no distress. Respiratory system: Unlabored breathing, with decreased breath sounds. No wheeze. HEART: S1, S2. Regular rate and rhythm. ABDOMEN: Soft, no tenderness. Left foot is currently dressed up, no obvious drainage on the dressing. LABS: BUN of 22, creatinine 0.7. DIAGNOSTIC IMPRESSION AND PLAN: Patient with left big toe osteomyelitis status post amputation. Culture positive coagulase-negative Staph. Patient is covered with vancomycin. May consider a short course in view of the cellulitis seen after surgery. Continue supportive care. MMODL / IJN: [id number] /
[2020-06-25 20:09] LABS: Glucose,Whole Blood 321 mg/dL (75-99)
[2020-06-25] MEDS: ATORVASTATIN 20 MG TAB PO SCH (20:15)
[2020-06-25] MEDS: PREGABALIN 75 MG CAP PO SCH (20:15)
[2020-06-25] MEDS ORDERED: INSULIN DETEMIR (LEVEMIR) 100 UNIT/ML SYR SQ SCH (21:00)
[2020-06-26 03:28] LABS: Glucose,Whole Blood 161 mg/dL (75-99)
[2020-06-26 06:56] LABS: Glucose,Whole Blood 145 mg/dL (75-99)
[2020-06-26] MEDS: BUDESONIDE 1 MG/2 ML NEBU INHALATION SCH (07:10)
[2020-06-26] MEDS: FORMOTEROL FUMARATE 20 MCG/2 ML NEBU INHALATION SCH (07:10)
[2020-06-26] MEDS: IPRATROPIUM-ALBUTEROL 3 ML NEB INHALATION SCH ×3 (07:10→15:28)
[2020-06-26] MEDS: POTASSIUM CHLORIDE ER 20 MEQ TAB.ER PO SCH (07:31)
[2020-06-26] MEDS: LOSARTAN 50 MG TAB PO SCH (07:32)
[2020-06-26] MEDS: ASPIRIN 81 MG PO SCH (07:32)
[2020-06-26] MEDS: AZITHROMYCIN 500 MG TAB PO SCH (07:32)
[2020-06-26] MEDS: CITALOPRAM HYDROBROMIDE 20 MG TAB PO SCH (07:32)
[2020-06-26] MEDS: predniSONE 20 MG TAB PO SCH (07:32)
[2020-06-26] MEDS: METOPROLOL SUCCINATE (ER) 50 MG TAB.ER.24H PO SCH (07:32)
[2020-06-26] MEDS: FAMOTIDINE 20 MG TAB PO SCH (07:32)
[2020-06-26] MEDS: FUROSEMIDE 10 MG/ML 4 ML VIAL IV SCH (07:32)
[2020-06-26] MEDS: amLODIPine 10 MG TAB PO SCH (07:32)
[2020-06-26] MEDS: INSULIN ASPART (NovoLOG) 100 UNIT/ML VIAL SQ SCH ×2 (07:37→11:46)
--- NOTE | 2020-06-26 10:03 | P.DS ---
Providers Date of admission: 06/16/20 16:25 Expected date of discharge: 06/26/20 Attending physician: Nancy Thompson Consults: 06/16/20 16:25 Consult Physician Urgent Consulting Provider: Rustam Gregory Consult Reason/Comments: Osteomyelitis Do you want consulting provider notified?: Yes Consult Physician Urgent Consulting Provider: Singh Mccabe Consult Reason/Comments: Osteomyelitis Do you want consulting provider notified?: Yes 06/17/20 09:12 Consult Physician Routine Consulting Provider: Rustam Gregory Consult Reason/Comments: left great toe gangrene Do you want consulting provider notified?: Yes 06/20/20 08:47 Consult Physician Routine Consulting Provider: Marine Rojas Consult Reason/Comments: Asthma exac Do you want consulting provider notified?: Yes Primary care physician: [facility] Course: This is a 70-year-old patient of Dr. Sanderson with past medical history of asthma, CHF, COPD, CVA, diabetes, hyperlipidemia, hypertension, rheumatoid arthritis indication of the left great toe. And a chronic ulceration to the left great toe and left lateral foot. Patient is a former nonsmoker who stopped smoking approximately 27 years ago. She drinks alcohol occasionally. Denies any illicit drug use or marijuana. The patient presented to the emergency room for a nonhealing ulceration to the left great toe and left lateral foot. Rupa ent has been seen by the wound care center and Dr. Gregory for the last few weeks. Dr. Gregory did perform a run off which did show some blockage to the left lower extremity. However due to the location of the blockage she was unable to do any intervention at this time. Patient has been utilizing multiple advanced testing. On Friday patient was seen by her home health care nurse who was concerned about the increased drainage to the site and instructed her to go to the emergency room. In the emergency room a x-ray was performed which did show osteo-myelitis to the left great toe. At this time patient is resting comfortably in bed with no acute distress. Patient has dressing to the left foot. Upon examination the right foot shows dried calloused area to the distal portion of the right great toe with redness to the periwound. The right lateral foot ulceration appears to be epithelialized. ABC 7.5, hemoglobin 13.8, platelets 288, potassium 4.4, BUN 14, creatinine 0.59, glucose 221. 06/18: Is found sitting up in a chair without any complaints or concerns. Patient is in no acute distress. She is scheduled to have a left great toe amputation today around 12. Patient may require antibiotics for approximately 1 week post amputation she should be able to go home within the next few days. Patient remains afebrile, blood pressure 146/77, pulse rate 72, respirations 18 nonlabor ed, pulse ox 94% on room air. Sugars are elevated in the 20s to 260s. 06/19: She is status post left great toe amputation as of yesterday with Dr. Gregory. Pain is currently controlled. She denies any fever or chills. Patient has been afebrile, heart rate 64, blood pressure 117/65, pulse ox 100% on room air. Blood sugars have been elevated running between 206 and 302. Wound culture is Tomasa species not albicans. Blood culture no growth at 48 hours. Tissue cultures obtained during surgery are in process. The patient is followed by Dr. Mccabe and currently on Unasyn and vancomycin. Patient's last A1c was 9 on March 2020. Repeat A1c ordered. 06/20: A1c is 8.8. Blood sugars have been running between 128 and 259. Wound culture remains in process. Patient is on Unasyn and vancomycin followed by Dr. Mccabe. She has been afebrile, heart rate 88, blood pressure 132/80, pulse ox 90% on room air. Patient is complaining of wheezing this morning. We have added in Solu-Medrol and consult with Dr. Rojas, her pulmonary medicine doctor. We have also increased insulins. 06/21: Patient is complaining of left leg pain which is not controlled with tramadol which will be increased to 100 mg 3 times daily and also [place] will be available if patient would like to try this for pain control. She denies having any abdominal pain and no diarrhea. Blood sugars are quite elevated and insulin will be adjusted again today with Levemir to 35 units twice daily and scheduled NovoLog to 28 units 3 times daily with meals. Wound culture is coag-negative staph 2, diphtheroid species. Patient is continued on Unasyn and vancomycin. 06/22: Patient didn't continues to have audible wheezing while ambulating with physical therapy and continued on DuoNeb treatments, Pulmicort and IV Solu-Me drol that his been transitioned to prednisone. Dr. Mccabe is recommended 2 weeks of vancomycin and pharmacy is adjusting dose due to high trough. D-dimer ordered today was 1.32. Blood sugars are running between [address] angiogram has been ordered by pulmonary medicine. Anticipate possible discharge by tomorrow. PICC line has been ordered by ID. 06/23: CT angiogram of the chest revealed no evidence of acute pulmonary embolism. Mild fluid overload state with tiny bilateral pleural effusions and mild alveolar and interstitial edema. ProBNP 3290. Patient has been started on IV Lasix 40 mg daily. PICC line was inserted today. Wound cultures are still in progress and there is a positive anaerobic not identified. Patient is continued on IV vancomycin, dosed by pharmacy. Yesterday, patient's pulse ox dropped down to 83% with ambulation. We'll plan to set up home oxygen therapy but will reassess prior to discharge. Patient was transitioned off IV Solu- Medrol to oral prednisone starting yesterday afternoon and blood sugar was low today with 92 at breakfast and 55 at lunch. Insulins were adjusted to Levemir 20 units twice daily and NovoLog 15 units 3 times daily with meals. Patient does state that she is eating less food here than she normally does at home. Echocardiogram reveals EF of 40-45%, moderate concentric left hypertrophy, moderate to severe mitral regurgitation, mild tricuspid regurgitation, mild pulmonary hypertension. At this time, the patient will continue to be monitored. Doubt that she will be ready for discharge clinically until Friday but will hold discharge until Friday due to set up of IV antibiotics for home. She will also need reassessment of home oxygen need. 06/24 and patient examined bedside continues to have significant cough and wheezing at rest. Denies any chest pain dizziness or lower extremity edema. Does have been to the pain in the left lower extremity. Patient would need IV antibiotics on discharge. Possible plan to discharge on Friday. Vitals are stable with a temp of 97.8 pulse 72 respiratory rate 20 blood pressure 1:30/64 oxygen saturation 94% on 3 L. Creatinine is stable at 0.62. Blood sugar controlled from 93-180. Echocardiogram with mild to moderately impaired ejection fraction of 40-45% with moderate concentric left ventricular hypertrophy and moderate to severe mitral regurgitation. Continue Lasix at 40 IV daily. Plan for vancomycin for 2 weeks post discharge 3/14 patient examined bedside. Continue to require 3 L of oxygen saturating at 94%. Blood afebrile respiratory rate 16 blood pressure 117/60. Patient did have an episode of hypoglycemia this morning to 66 glucose ranging from 109-111. Labs otherwise stable creatinine at 0.7. Patient was evaluated by pulmonary for possible discharge tomorrow. Continue prednisone at 40 mg by mouth daily. Due to persistent hypoglycemia Lantus decreased to 10 mg subcu daily at bedtime from 20 twice a day. Mealtime insulin discontinued. Continue sliding scale insulin. Patient's insulin need to be adjusted prior to discharge. Would need evaluation for home oxygen with walking. 06/26: Patient states that she is feeling better today. She continues to have expiratory wheezing but seems to be at her baseline. Dr. Villa is planning for vancomycin outpatient setting which has been arranged through [facility]. We are making arrangements for home O2 as pulse ox was 86% with activity. We are also adding humidification. Patient has been afebrile, heart rate 80, blood pressure 134/69. Patient will be discharged home today once all arrangements are completed. Assessment and plan 1. Diabetic foot ulcer left great toe with osteomyelitis status post amputation. 2. Osteomyelitis. 3. Acute chronic systolic heart failure, present on admission. 4. Diabetes mellitus type II uncontrolled with hyperglycemia and hypoglycemia. 5. Peripheral vascular disease status post stent to right lower extremity and right great toe amputation 6. Hyperlipidemia. 7. Hypertension. 8. COPD, stable. 9. Recurrent Depression. 10. Asthma exacerbation, possible COPD exacerbation. 11. Chronic hypoxic respiratory failure requiring home oxygen. Patient requires oxygen to manage COPD and asthma exacerbation. Discharge plan Home with [facility] and IV antibiotics. PICC line has been inserted. Impression and plan of care have been directed as dictated by the signing physician. Emily Higginbotham nurse practitioner acting as scribe for signing physician. Patient Condition at Discharge: Good Plan - Discharge Summary Discharge Rx Participant: Yes New Discharge Prescriptions: New Ipratropium-Albuterol Nebulize [Duoneb 0.5 mg-3 mg/3 ml Soln] 3 ml INHALATION RT-QID ml Potassium Chloride ER [K-Dur 20] 20 meq PO DAILY #30 tab.er.prt Furosemide [Lasix] 40 mg PO DAILY #30 tablet predniSONE 0 mg PO DIRECTED #30 tab Budesonide [Pulmicort] 1 mg INHALATION RT-BID #60 dose Continue Nitroglycerin Sl Tabs [Nitrostat] 0.4 mg SL Q5M PRN PRN Reason: Chest Pain Metoprolol Succinate [Toprol XL] 50 mg PO DAILY amLODIPine [Norvasc] 10 mg PO DAILY Simvastatin [Zocor] 40 mg PO HS Aspirin 81 mg PO DAILY Abatacept [Orencia] 125 mg SQ WE Ipratropium/Albuterol Sulfate [Combivent Respimat Inhaler] 2 puff INHALATION RT-DAILY Albuterol Sulfate [Proair Hfa] 2 puff INHALATION RT-Q4H PRN PRN Reason: Shortness Of Breath traMADol HCL 50 mg PO TID PRN PRN Reason: Pain Pregabalin [Lyrica] 75 mg PO HS Losartan [Cozaar] 50 mg PO DAILY Citalopram Hydrobromide [CeleXA] 40 mg PO DAILY Changed Insulin Glargine,Hum.rec.anlog [Lantus Solostar] 15 unit SQ BID #0 Insulin Aspart [NovoLOG Flexpen] 10 units SQ AC-TID #0 Discharge Medication List Metoprolol Succinate [Toprol XL] 50 mg PO DAILY 05/02/15 [History] Nitroglycerin Sl Tabs [Nitrostat] 0.4 mg SL Q5M PRN 05/02/15 [History] Aspirin 81 mg PO DAILY 04/15/17 [History] Simvastatin [Zocor] 40 mg PO HS 04/15/17 [History] amLODIPine [Norvasc] 10 mg PO DAILY 04/15/17 [History] Abatacept [Orencia] 125 mg SQ WE 05/07/19 [History] Albuterol Sulfate [Proair Hfa] 2 puff INHALATION RT-Q4H PRN 06/16/20 [History] Citalopram Hydrobromide [CeleXA] 40 mg PO DAILY 06/16/20 [History] Ipratropium/Albuterol Sulfate [Combivent Respimat Inhaler] 2 puff INHALATION RT-DAILY 06/16/20 [History] Losartan [Cozaar] 50 mg PO DAILY 06/16/20 [History] Pregabalin [Lyrica] 75 mg PO HS 06/16/20 [History] traMADol HCL 50 mg PO TID PRN 06/16/20 [History] Budesonide [Pulmicort] 1 mg INHALATION RT-BID #60 dose 06/26/20 [Rx] Furosemide [Lasix] 40 mg PO DAILY #30 tablet 06/26/20 [Rx] Insulin Aspart [NovoLOG Flexpen] 10 units SQ AC-TID #0 06/26/20 [Rx] Insulin Glargine,Hum.rec.anlog [Lantus Solostar] 15 unit SQ BID #0 06/26/20 [Rx] Ipratropium-Albuterol Nebulize [Duoneb 0.5 mg-3 mg/3 ml Soln] 3 ml INHALATION RT-QID ml 06/26/20 [Rx] Potassium Chloride ER [K-Dur 20] 20 meq PO DAILY #30 tab.er.prt 06/26/20 [Rx] predniSONE 0 mg PO DIRECTED #30 tab 06/26/20 [Rx] Follow up Appointment(s)/Referral(s): Joseph Brown [Other] - As Needed (Follow up as needed PAtient made appoitment for the @ 3 pm) Marine Rojas MD [STAFF PHYSICIAN] - 1 Week [facility] [NON-STAFF] - As Needed (oxygen) [facility], [NON-STAFF] - [facility],Infusion [NON-STAFF] - Jacob Sanderson DO [Primary Care Provider] - 06/28/20 11:00 am Rustam Gregory MD [STAFF PHYSICIAN] - 07/06/20 10:00 am Singh Mccabe MD [STAFF PHYSICIAN] - 07/10/20 2:00 pm Discharge Disposition: HOME WITH HOME HEALTH SERVICES
[2020-06-26 11:23] LABS: Glucose,Whole Blood 238 mg/dL (75-99)
[2020-06-26 13:29] VITALS: BP 134/69; PULSE 90; RESP 18; TEMP 98.1
[2020-06-26] MEDS: VANCOMYCIN 1,500 MG in SODIUM CHLORIDE 0.9% 250 ML IVPB SCH (13:48)
--- NOTE | 2020-06-26 14:35 | PN ---
PROGRESS NOTE DATE OF SERVICE: 06/26/2020 REASON FOR FOLLOWUP: Left big toe osteomyelitis. INTERVAL HISTORY: The patient is currently afebrile. The patient is breathing comfortably. Denies having chest pain. Occasional cough. No abdominal pain or pain to the left big toe. PHYSICAL EXAMINATION: Blood pressure is 176/76, pulse of 84, temperature 97.7. She is 94% on 3 L nasal cannula. General description is an elderly female in the bed in no distress. RESPIRATORY SYSTEM: Unlabored breathing, decreased intensity of breath sounds. No wheeze. HEART: S1, S2. Regular rate and rhythm. ABDOMEN: Soft, no tenderness. The left big toe with minimal swelling, small wound, no drainage. LABS: No new labs have been obtained today. DIAGNOSTIC IMPRESSION AND PLAN: Patient with left big toe osteomyelitis in this patient who is status post left big toe amputation with infected part removed. She will not need to be on long-term antibiotic therapy. Plan is to give a 10-day to 2-week course of vancomycin pharmacy to dose and close outpatient followup. Local care with Aqu[employer] Silver packing. MMODL / IJN: [id number] /
[2020-06-26] MEDS ORDERED: VANCOMYCIN TROUGH DUE 1 EACH MISC MISCELLANE ONE (15:00)
--- NOTE | 2020-06-26 15:31 | P.PN ---
Subjective Progress Note Date: 06/26/20 Principal diagnosis: Wheezing, coughing 70-year-old white female patient of Dr. Sanderson with past medical history of mild intermittent bronchial asthma on Dilan Kay, patient follows with Dr. Mcqueen on an outpatient basis and the pulmonary clinic. She has a history of type 2 diabetes mellitus, hypertension, previous NV, coronary arteriosclerosis, degenerative joint disease, previous history of smoking, peripheral vascular disease with history of amputation of 2 toes on her right foot. Patient came in on 06/16/2020 for evaluation of chronic nonhealing ulceration to the left great toe and left lateral foot. Patient also Dr. Gregory in the wound clinic and underwent a runoff that showed some blockage to the left lower extremity, however intervention was not feasible related to the location of the blockage. On 06/18/2020 patient underwent a left great toe amputation. She is currently on antibiotics, wound culture showed Tomasa species, and left great toe tissue culture showed coagulase-negative staph, patient is on a combination of azithromycin, Unasyn and vancomycin, Dr. Mccabe from infectious disease is following. Patient was noted to be increasingly wheezy and coughing, she is having an acute asthma exacerbation. Chest x-ray today showed some non-questionable basilar atelectasis or scarring, reactive airways disease. Patient was started on IV steroids, breathing treatments in the form of DuoNeb, Pulmicort, were asked to see the patient in consultation On 06/21/2020 patient seen in follow-up on medical surgical floor, she is not back to baseline, but breathing easier, less dyspneic and bronchospastic. She continues on high-dose IV steroids 60 mg every 6 hours, nebulized bronchodilators, azithromycin, Unasyn and vancomycin. She has had no fever or chills, no hemoptysis, no chest tightness, equal air entry bilaterally, she is currently on 2 L of oxygen pulse ox 91%. She is up to the bedside commode, her left foot with with a dressing, ID service is following. On 06/26/2020 patient seen in follow-up on medical surgical floor, she is currently on 3 L of oxygen pulse ox of 95%, lung sounds reveal some scattered wheezes, but overall much less dyspneic, feeling a breathing better, no acute events overnight. Patient remains on vancomycin for left leg infection status post left toe amputation, she has had no acute events overnight. No fever or chills, no worsening dyspnea. IV steroids have been converted to oral predni sone, she continues on breathing treatments. ID service is following, and discharge planning is in progress for discharge home with home care and IV vancomycin infusions. Objective - Vital Signs Vital signs: Vital Signs Temp 98.1 F 06/26/20 13:29 Pulse 90 06/26/20 13:29 Resp 18 06/26/20 13:29 BP 134/69 06/26/20 13:29 Pulse Ox 93 L 06/26/20 13:29 Intake & Output 06/25/20 06/26/20 06/26/20 18:59 06:59 18:59 Intake Total 700 Balance 700 Weight 105 kg 103.9 kg Intake: Oral 700 Other: Voiding Method Bedside Commode Bedside Commode - Exam GENERAL EXAM: Alert, very pleasant, 70-year-old white female, on 3l/min, with a pulse ox of 90-92% comfortable in no apparent distress. HEAD: Normocephalic/atraumatic. EYES: Normal reaction of pupils, equal size. Conjunctiva pink, sclera white. NOSE: Clear with pink turbinates. THROAT: No erythema or exudates. NECK: No masses, no JVD, no thyroid enlargement, no adenopathy. CHEST: No chest wall deformity. Symmetrical expansion. LUNGS: Equal air entry with audible diffuse wheezes, congested cough CVS: Regular rate and rhythm, normal S1 and S2, no gallops, no murmurs, no rubs ABDOMEN: Soft, nontender. No hepatosplenomegaly, normal bowel sounds, no guarding or rigidity. EXTREMITIES: No clubbing, no edema, no cyanosis, 2+ pulses and upper and lower extremities. Patient has left great toe amputated, incision is covered with the dressing, and Terence wrap, patient also has a nonhealing wound on the lateral aspect of the left foot. 2 missing toes on the right foot from previous history of amputation MUSCULOSKELETAL: Muscle strength and tone normal. SPINE: No scoliosis or deformity SKIN: No rashes CENTRAL NERVOUS SYSTEM: Alert and oriented -3. No focal deficits, tone is normal in all 4 extremities. PSYCHIATRIC: Alert and oriented -3. Appropriate affect. Intact judgment and insight. - Labs CBC & Chem 7: 06/21/20 06:25 06/25/20 06:36 Labs: Abnormal Lab Results - Last 24 Hours (Table) 06/25/20 06/25/20 06/26/20 Range/Units 16:33 20:07 03:25 POC Glucose (mg/dL) 240 H 321 H 161 H (75-99) mg/dL 06/26/20 06/26/20 Range/Units 06:45 11:22 POC Glucose (mg/dL) 145 H 238 H (75-99) mg/dL Assessment and Plan Plan: Assessment: #1. Acute exacerbation of chronic bronchial asthma and COPD, mild intermittent bronchial asthma #2. Acute exacerbation of chronic diastolic congestive heart failure with a possible component of systolic congestive heart failure with ejection fraction of 40-45% #3. Nonhealing wound on the left great toe and left foot related to osteomyelitis, status post left great toe amputation on 06/18/2020 #4. Status post amputation of 2 digits on right foot #5. Diabetes mellitus type 2, poorly controlled with hyperglycemia #6. Peripheral vascular disease status post stenting to the right lower extremity #7. History of CHF with diastolic dysfunction #8. Hyperlipidemia #9. Former smoker #10. Degenerative disc disease #11. Moderate to severe mitral regurgitation Plan: Patient is doing better, she's been diuresed, she is breathing easier, but a signs have been stable, no complaint of chest pain. Patient does qualify for home oxygen. Arrangements have been made for home oxygen at 3 L/m and IV vancomycin infusions. From pulmonary perspective she stable for discharge home, she will need outpatient follow-up with Dr. Mcqueen in the office I performed a history & physical examination of the patient and discussed their management with my nurse practitioner, Debo Young. I reviewed the nurse practitioner's note and agree with the documented findings and plan of care. Lung sounds are positive for diffuse wheezes throughout the lung briscoe. The findings and the impression was discussed with the patient. I attest to the documentation by the nurse practitioner. Time with Patient: Less than 30
--- NOTE | 2020-06-29 15:44 | OP ---
OPERATIVE REPORT PREOPERATIVE DIAGNOSIS: Chronic wound, left foot big toe, post partial toe amputation. POSTOPERATIVE DIAGNOSIS: Chronic wound, left foot big toe, post partial toe amputation. OPERATION: Left big toe amputation. PROCEDURE: This patient had a partial toe amputation done by the senior architectural designer in the past. The wound got infected and the patient was brought to the operating room. Left foot was prepped and drapes were applied in the usual sterile manner under anesthesia. Incision was made on the dorsal aspect of the foot, extended to the plantar aspect circumferentially. We reached the metatarsophalangeal joint. Ligaments were divided and the extensor tendon and plantar tendon were divided. This specimen was removed, sent for deep culture. The wound was copiously irrigated with hydrogen peroxide and saline. Incision was closed in 2 layers using Vicryl and skin closed with nylon with interrupted sutures. Dressing applied. Patient tolerated the procedure well. MMODL / IJN: [id number] /
== END 2020-06-26 16:06 | disposition home health service (06) | DRG 616 ==
LOC: EC 14:28 → 4SSUR 16:25
PROVIDERS: ADMIT Family Medicine; ATTEND Family Medicine
PROC: 0Y6Q0Z0 Detachment at Left 1st Toe, Complete, Open Approach (ICD-10-PCS; principal; 2020-06-18 12:00)
PROC: 05HD33Z Insertion of Infusion Device into Right Cephalic Vein, Percutaneous Approach (ICD-10-PCS; 2020-06-22)
PROC: 02HV33Z Insertion of Infusion Device into Superior Vena Cava, Percutaneous Approach (ICD-10-PCS; 2020-06-23)
DX: E11.69 Type 2 diabetes mellitus with other specified complication (principal); I50.43 Acute on chronic combined systolic (congestive) and diastolic (congestive) heart failure; M86.9 Osteomyelitis, unspecified; E11.52 Type 2 diabetes mellitus with diabetic peripheral angiopathy with gangrene; F33.9 Major depressive disorder, recurrent, unspecified; L03.116 Cellulitis of left lower limb; J96.11 Chronic respiratory failure with hypoxia; J45.21 Mild intermittent asthma with (acute) exacerbation; J44.1 Chronic obstructive pulmonary disease with (acute) exacerbation; T87.40 Infection of amputation stump, unspecified extremity; I27.20 Pulmonary hypertension, unspecified; E11.649 Type 2 diabetes mellitus with hypoglycemia without coma; E11.621 Type 2 diabetes mellitus with foot ulcer; E11.40 Type 2 diabetes mellitus with diabetic neuropathy, unspecified; I11.0 Hypertensive heart disease with heart failure; E11.65 Type 2 diabetes mellitus with hyperglycemia; M06.9 Rheumatoid arthritis, unspecified; Z89.411 Acquired absence of right great toe; Z79.4 Long term (current) use of insulin; L97.529 Non-pressure chronic ulcer of other part of left foot with unspecified severity; L97.519 Non-pressure chronic ulcer of other part of right foot with unspecified severity; Z89.421 Acquired absence of other right toe(s); Z20.822 Contact with and (suspected) exposure to COVID-19; E78.5 Hyperlipidemia, unspecified; I08.1 Rheumatic disorders of both mitral and tricuspid valves; I25.10 Atherosclerotic heart disease of native coronary artery without angina pectoris; I25.2 Old myocardial infarction; M19.90 Unspecified osteoarthritis, unspecified site; E66.9 Obesity, unspecified; Z68.38 Body mass index [BMI] 38.0-38.9, adult; Z79.82 Long term (current) use of aspirin; Z79.899 Other long term (current) drug therapy; Z86.73 Personal history of transient ischemic attack (TIA), and cerebral infarction without residual deficits; Z95.820 Peripheral vascular angioplasty status with implants and grafts; Z87.891 Personal history of nicotine dependence; Z87.01 Personal history of pneumonia (recurrent); Z90.89 Acquired absence of other organs; Z90.49 Acquired absence of other specified parts of digestive tract; Z98.51 Tubal ligation status; Z87.19 Personal history of other diseases of the digestive system; Z87.440 Personal history of urinary (tract) infections; Z91.048 Other nonmedicinal substance allergy status; Y83.5 Amputation of limb(s) as the cause of abnormal reaction of the patient, or of later complication, without mention of misadventure at the time of the procedure; Z82.49 Family history of ischemic heart disease and other diseases of the circulatory system; Z83.3 Family history of diabetes mellitus; Z82.3 Family history of stroke; Z80.1 Family history of malignant neoplasm of trachea, bronchus and lung; Z82.5 Family history of asthma and other chronic lower respiratory diseases
CPT/HCPCS: 36410; 36415; 36573; 71046; 71275; 76937; 80048; 80053; 80202; 82565; 83036; 83605; 83880; 85025; 85379; 85610; 85730; 87040; 87070; 87075; 87205; 87635; 93306; 94640; 94760; 96365; 96366; 96367; 99284

== ENCOUNTER 2020-07-15 13:28 | Emergency (ER) | payer MEDICARE, OTHER ==
[2020-07-15 13:33] VITALS: TEMP 98.4
[2020-07-15] MEDS ORDERED: KETOROLAC 15 MG/ML 1 ML VIAL IVP STA (13:45)
[2020-07-15] MEDS ORDERED: HYDROmorphone 0.5 MG/0.5 ML SYRINGE IVP STA (13:45)
--- NOTE | 2020-07-15 13:50 | ED ---
General Adult HPI - General Chief complaint: Extremity Problem,Nontraumatic Stated complaint: L Thigh Pain Time Seen by Provider: 07/15/20 13:30 Source: patient, RN notes reviewed, old records reviewed Mode of arrival: wheelchair Limitations: no limitations - History of Present Illness Initial comments: This is a 70-year-old female presents emergency Department with a past history of diabetes. Patient in the beginning of June had her left first toe amputated. Patient states she's on IV antibiotics at home. She has not had any problems with that recently. Patient comes in because yesterday at 2:00 she started having left anterior thigh pain and it is excruciating at times. Patient states there is no redness no swelling no fever. Patient denies any lower leg swelling or calf tenderness. Patient's only complaint is the anterior thigh pain in standing on it or moving it increases the pain. - Related Data Home Medications Medication Instructions Recorded Confirmed Metoprolol Succinate [Toprol XL] 50 mg PO DAILY 05/02/15 06/16/20 Nitroglycerin Sl Tabs [Nitrostat] 0.4 mg SL Q5M PRN 05/02/15 06/16/20 Aspirin 81 mg PO DAILY 04/15/17 06/16/20 Simvastatin [Zocor] 40 mg PO HS 04/15/17 06/16/20 amLODIPine [Norvasc] 10 mg PO DAILY 04/15/17 06/16/20 Abatacept [Orencia] 125 mg SQ WE 05/07/19 06/16/20 Albuterol Sulfate [Proair Hfa] 2 puff INHALATION RT-Q4H PRN 06/16/20 06/16/20 Citalopram Hydrobromide [CeleXA] 40 mg PO DAILY 06/16/20 06/16/20 Ipratropium/Albuterol Sulfate 2 puff INHALATION RT-DAILY 06/16/20 06/16/20 [Combivent Respimat Inhaler] Losartan [Cozaar] 50 mg PO DAILY 06/16/20 06/16/20 Pregabalin [Lyrica] 75 mg PO HS 06/16/20 06/16/20 traMADol HCL 50 mg PO TID PRN 06/16/20 06/16/20 Budesonide [Pulmicort] 1 mg INHALATION RT-BID PRN 07/15/20 07/15/20 Ipratropium-Albuterol Nebulize 3 ml INHALATION RT-QID PRN 07/15/20 07/15/20 [Duoneb 0.5 mg-3 mg/3 ml Soln] Montelukast Sodium [Singulair] 10 mg PO HS 07/15/20 07/15/20 prednisoLONE ACETATE 1% OPHTH 1 drops LEFT EYE TID 07/15/20 07/15/20 [Pred Forte 1%] Previous Rx's Medication Instructions Recorded Furosemide [Lasix] 40 mg PO DAILY #30 tablet 06/26/20 Insulin Aspart [NovoLOG Flexpen] 10 units SQ AC-TID #0 06/26/20 Insulin Glargine,Hum.rec.anlog 15 unit SQ BID #0 06/26/20 [Lantus Solostar] Potassium Chloride ER [K-Dur 20] 20 meq PO DAILY #30 tab.er.prt 06/26/20 Cyclobenzaprine [Flexeril] 10 mg PO TID #20 tab 07/15/20 Ketorolac [Toradol] 10 mg PO Q6HR #15 tab 07/15/20 Allergies Allergy/AdvReac Type Severity Reaction Status Date / Time nickel Allergy Rash/Hives Verified 07/15/20 13:33 Review of Systems ROS Statement: Those systems with pertinent positive or pertinent negative responses have been documented in the HPI. ROS Other: All systems not noted in ROS Statement are negative. Past Medical History Past Medical History: Asthma, Heart Failure, COPD, CVA/TIA, Diabetes Mellitus, Hyperlipidemia, Hypertension, Pneumonia, Rheumatoid Arthritis (RA) Additional Past Medical History / Comment(s): ARTHRITIS, STROKE 2013. UTI-,RT GREAT TOE WOUND. Last Myocardial Infarction Date:: 2014 History of Any Multi-Drug Resistant Organisms: None Reported Past Surgical History: Adenoidectomy, Appendectomy, Tonsillectomy, Tubal Ligation Additional Past Surgical History / Comment(s): Open heart on April 13 2015. Right great toe amputation 2014. stent in right leg above knee. left toe ambutation, 06/18/20 Past Anesthesia/Blood Transfusion Reactions: Previous Problems w/ Anesthesia Additional Past Anesthesia/Blood Transfusion Reaction / Comment(s): diff breathing Past Psychological History: No Psychological Hx Reported Smoking Status: Former smoker Past Alcohol Use History: None Reported Past Drug Use History: None Reported - Past Family History Father Family Medical History: Coronary Artery Disease (CAD), CVA/TIA, Diabetes Mellitus Mother Additional Family Medical History / Comment(s): "spot on the lung" General Exam - General Exam Comments Initial Comments: GENERAL Patient is well-developed and well-nourished. Patient is in moderate distress. EYES Patient's pupils are equal and round. Extraocular motion is intact SKIN Unremarkable NEURO The patient is alert and oriented 3 PYSCH Patient has normal interpersonal interactions. MUSCULOSKELETAL Leg is full range of motion. Sinus not tender to palpation. There is no redness is no swelling in the skin is warm and there is no temperature difference between the legs. Limitations: no limitations Course Vital Signs 07/15/20 07/15/20 13:31 15:06 Temperature 98.4 F Pulse Rate 87 71 Respiratory 20 18 Rate Blood Pressure 144/76 138/56 O2 Sat by Pulse 96 92 L Oximetry Medical Decision Making - Medical Decision Making Fever x-ray showed no acute abnormality. Patient received Dilaudid and Toradol initially helped a little with the pain I gave the patient time her pain was much improved after that. - Lab Data Result diagrams: 07/15/20 14:10 07/15/20 14:10 Lab Results 07/15/20 07/15/20 Range/Units 14:10 14:10 WBC 6.1 (3.8-10.6) k/uL RBC 4.00 (3.80-5.40) m/uL Hgb 12.2 (11.4-16.0) gm/dL Hct 36.9 (34.0-46.0) % MCV 92.3 (80.0-100.0) fL MCH 30.6 (25.0-35.0) pg MCHC 33.2 (31.0-37.0) g/dL RDW 13.4 (11.5-15.5) % Plt Count 261 (150-450) k/uL MPV 7.1 Neutrophils % 62 % Lymphocytes % 25 % Monocytes % 7 % Eosinophils % 4 % Basophils % 1 % Neutrophils # 3.8 (1.3-7.7) k/uL Lymphocytes # 1.5 (1.0-4.8) k/uL Monocytes # 0.4 (0-1.0) k/uL Eosinophils # 0.2 (0-0.7) k/uL Basophils # 0.0 (0-0.2) k/uL Sodium 134 L (137-145) mmol/L Potassium 4.7 (3.5-5.1) mmol/L Chloride 103 (98-107) mmol/L Carbon Dioxide 24 (22-30) mmol/L Anion Gap 7 mmol/L BUN 20 H (7-17) mg/dL Creatinine 1.30 H (0.52-1.04) mg/dL Est GFR (CKD-EPI)AfAm 48 (>60 ml/min/1.73 sqM) Est GFR (CKD-EPI)NonAf 42 (>60 ml/min/1.73 sqM) Glucose 297 H (74-99) mg/dL Calcium 8.7 (8.4-10.2) mg/dL Total Bilirubin 0.4 (0.2-1.3) mg/dL AST 22 (14-36) U/L ALT 17 (4-34) U/L Alkaline Phosphatase 96 (38-126) U/L Creatine Kinase 59 (30-135) U/L Total Protein 6.2 L (6.3-8.2) g/dL Albumin 3.6 (3.5-5.0) g/dL Disposition Clinical Impression: Muscle spasm Disposition: HOME SELF-CARE Condition: Good Prescriptions: Cyclobenzaprine [Flexeril] 10 mg PO TID #20 tab Ketorolac [Toradol] 10 mg PO Q6HR #15 tab Is patient prescribed a controlled substance at d/c from ED?: No Referrals: Jacob Sanderson DO [Primary Care Provider] - 1-2 days Time of Disposition: 15:10
--- NOTE | 2020-07-15 14:40 | XR ---
EXAMINATION TYPE: XR femur LT DATE OF EXAM: 07/15/2020 COMPARISON: NONE HISTORY: Hip pain TECHNIQUE: 4 views FINDINGS: There is no fracture nor dislocation. Hip joint space is fairly normal. Knee joint is intac t. There is vascular calcification. IMPRESSION: Negative left femur exam. No fracture.
[2020-07-15 14:41] LABS: Basophils % (A) 1 %; Eosinophils # (A) 0.2 k/uL (0-0.7); Eosinophils % (A) 4 %; HCT 36.9 % (34.0-46.0); HGB 12.2 gm/dL (11.4-16.0); Lymphocytes # (A) 1.5 k/uL (1.0-4.8); Lymphocytes % (A) 25 %; MCH 30.6 pg (25.0-35.0); MCHC 33.2 g/dL (31.0-37.0); MCV 92.3 fL (80.0-100.0); Mean Platelet Volume 7.1; Monocytes # (A) 0.4 k/uL (0-1.0); Monocytes % (A) 7 %; Neutrophils # (A) 3.8 k/uL (1.3-7.7); Neutrophils % (A) 62 %; Platelet Count 261 k/uL (150-450); RDW 13.4 % (11.5-15.5); WBC 6.1 k/uL (3.8-10.6)
[2020-07-15] MEDS ORDERED: DIAZEPAM 5 MG/ML 2 ML INJ IVP STA (14:47)
[2020-07-15 14:57] LABS: Albumin 3.6 g/dL (3.5-5.0); Calcium 8.7 mg/dL (8.4-10.2); Potassium 4.7 mmol/L (3.5-5.1); Total Bilirubin 0.4 mg/dL (0.2-1.3); Total Protein 6.2 g/dL (6.3-8.2)
[2020-07-15 15:06] VITALS: BP 138/56; PULSE 71; RESP 18
== END 2020-07-15 15:25 | disposition home or self-care (01) ==
LOC: EC 13:28
DX: M62.838 Other muscle spasm (principal); I11.0 Hypertensive heart disease with heart failure; I50.9 Heart failure, unspecified; E11.9 Type 2 diabetes mellitus without complications; E78.5 Hyperlipidemia, unspecified; J44.9 Chronic obstructive pulmonary disease, unspecified; Z86.73 Personal history of transient ischemic attack (TIA), and cerebral infarction without residual deficits; Z87.891 Personal history of nicotine dependence
CPT/HCPCS: 36415; 80053; 82550; 85025; 73552; 99283; 96374; 96375; J3360; J1885; J1170

== ENCOUNTER 2020-08-11 11:55 | Day surgery (SDC) | payer MEDICARE, OTHER ==
--- NOTE | 2020-08-10 12:16 | HP ---
HISTORY AND PHYSICAL This is a 70-year-old female. Patient has history of left big toe amputation done in the past for infected gangrene of the big toe dated 06/18/2020. The patient has been coming to the wound clinic for followup. The patient had amputation metatarsophalangeal joint. Because of infection, wound was kept open. Now we can see the head of the first metatarsal bone. The patient is scheduled to have excision of the head of the metatarsal bone and revision of the stump. MEDICAL HISTORY: Patient has a history of asthma, heart failure, COPD, diabetes mellitus, hyperlipidemia, hypertension, rheumatoid arthritis. PERSONAL HISTORY: No known allergies. SURGICAL HISTORY: Patient had an adenoidectomy, appendectomy, tonsillectomy, tubal ligation, right leg above-knee amputation in the past. SMOKING HISTORY: History of smoking in the past. PHYSICAL EXAMINATION: NECK: Supple. Trachea central. CHEST: Clear to auscultation. ABDOMEN: Soft. Femorals are 1+. Left big toe wound has exposed head of the metatarsal bone with some redness noted in that area. PLAN: Excision of the head of the metatarsal bone and wound debridement. Risks and complications discussed. MMODL / IJN: [id number] /
[~2020-08-11 11:55] MED LIST: DEXAMETHASONE SOD PHOSPHATE 4 MG/ML 1 ML VIAL IV ONE; HYDROmorphone 0.5 MG/0.5 ML SYRINGE IVP PRN; MIDAZOLAM 2 MG/2 ML VIAL IV PRN; ONDANSETRON 4 MG/2 ML VIAL IVP ONE
[2020-08-11 13:04] LABS: Glucose,Whole Blood 151 mg/dL (75-99)
[2020-08-11] MEDS ORDERED: LIDOCAINE 1% (10MG/ML) FOR IV START INTRADERMA ONE (13:08)
[2020-08-11] MEDS: LACTATED RINGERS 1,000 ML IV SCH (13:08)
[2020-08-11] MEDS ORDERED: DEXAMETHASONE SOD PHOSPHATE 4 MG/ML 1 ML VIAL IV ONE (13:17)
[2020-08-11] MEDS ORDERED: ONDANSETRON 4 MG/2 ML VIAL IVP ONE (13:17)
[2020-08-11] MEDS ORDERED: PROPOFOL 10 MG/ML 20 ML VIAL IV ONE (13:35)
[2020-08-11] MEDS ORDERED: MIDAZOLAM 2 MG/2 ML VIAL ONE (13:35)
[2020-08-11] MEDS ORDERED: LIDOCAINE 1% INJ 10MG/ML (20 ML MDV) ONE (13:35)
[2020-08-11] MEDS ORDERED: fentaNYL (PF) 50 MCG/ML 2 ML AMP ONE (13:35)
[2020-08-11] MEDS ORDERED: LIDOCAINE 1% INJ 10MG/ML (20 ML MDV) SQ ONE (13:50)
[2020-08-11] MEDS ORDERED: NON FORMULARY DRUG (Ketorolac 10 MG Tab) PO PRN (14:59)
[2020-08-11] MEDS ORDERED: IPRATROPIUM-ALBUTEROL 3 ML NEB INHALATION PRN (14:59)
[2020-08-11] MEDS ORDERED: BUDESONIDE 1 MG/2 ML NEBU INHALATION PRN (14:59)
[2020-08-11] MEDS ORDERED: ALBUTEROL HFA INHALER INHALATION PRN (14:59)
[2020-08-11 17:10] LABS: Glucose,Whole Blood 170 mg/dL (75-99)
[2020-08-11] MEDS: LOSARTAN 50 MG TAB PO SCH (17:39)
[2020-08-11] MEDS: prednisoLONE ACETATE 1% OPHTH DROPS 5 ML BTL LEFT EYE SCH ×2 (17:39→20:48)
[2020-08-11] MEDS: INSULIN ASPART (NovoLOG) 100 UNIT/ML VIAL SQ SCH ×3 (18:34→20:47)
--- NOTE | 2020-08-11 19:50 | OP ---
OPERATIVE REPORT PREOPERATIVE DIAGNOSIS: Chronic wound, left foot, post big toe amputation. POSTOPERATIVE DIAGNOSIS: Chronic wound, left foot, post big toe amputation. PROCEDURE: Debridement of the wound and excision of the head of the metatarsal bone. ANESTHESIA: Local with IV sedation. PROCEDURE DESCRIPTION: The patient was brought to the operating room. Left foot was prepped and draped in the usual sterile manner. This patient had amputation of the big toe in the past. The patient has been coming to the wound clinic for local wound care. The patient was in the hyperbaric chamber for peripheral vascular disease. Left foot was prepped and draped in the usual sterile manner. Using periosteum elevator, we elevated the periosteum from the head of the metatarsal bone. There was some devitalized tissue, which was excised with a sharp knife. Then, using a hand electric saw, the head of the metatarsal bone was excised. There was some bleeding noted. The wound was irrigated with hydrogen peroxide and saline. Hemostasis was well controlled. Subcutaneous tissue was closed with 3-0 Vicryl. Skin was not closed. Aquacel Silver was applied to the wound. The patient tolerated the procedure well. MMODL / IJN: [id number] /
[2020-08-11] MEDS: traMADol 50 MG TAB PO PRN (20:25)
[2020-08-11 20:26] LABS: Glucose,Whole Blood 367 mg/dL (75-99)
[2020-08-11] MEDS: PREGABALIN 75 MG CAP PO SCH (20:26)
[2020-08-11] MEDS: MONTELUKAST 10 MG TAB PO SCH (20:26)
[2020-08-11] MEDS: amLODIPine 10 MG TAB PO SCH (20:26)
[2020-08-11] MEDS: ATORVASTATIN 20 MG TAB PO SCH (20:26)
[2020-08-11] MEDS: INSULIN DETEMIR (LEVEMIR) 100 UNIT/ML SYR SQ SCH (20:47)
[2020-08-12] MEDS: LACTATED RINGERS 1,000 ML IV SCH (03:29)
[2020-08-12 07:10] LABS: Glucose,Whole Blood 143 mg/dL (75-99)
[2020-08-12] MEDS: CITALOPRAM HYDROBROMIDE 20 MG TAB PO SCH (07:24)
[2020-08-12] MEDS: traMADol 50 MG TAB PO PRN ×2 (07:24→21:04)
[2020-08-12] MEDS: ASPIRIN 81 MG PO SCH (07:24)
[2020-08-12] MEDS: LOSARTAN 50 MG TAB PO SCH (07:25)
[2020-08-12] MEDS: METOPROLOL SUCCINATE (ER) 50 MG TAB.ER.24H PO SCH (07:25)
[2020-08-12] MEDS: INSULIN DETEMIR (LEVEMIR) 100 UNIT/ML SYR SQ SCH ×2 (07:28→21:03)
[2020-08-12] MEDS: IPRATROPIUM-ALBUTEROL 3 ML NEB INHALATION SCH ×2 (07:52→07:56)
[2020-08-12] MEDS: INSULIN ASPART (NovoLOG) 100 UNIT/ML VIAL SQ SCH ×7 (08:25→21:03)
[2020-08-12] MEDS: prednisoLONE ACETATE 1% OPHTH DROPS 5 ML BTL LEFT EYE SCH ×3 (11:18→21:23)
[2020-08-12 11:29] LABS: Glucose,Whole Blood 281 mg/dL (75-99)
--- NOTE | 2020-08-12 12:25 | P.HPIM ---
History of Present Illness H&P Date: 08/12/20 This is a 70-year-old patient who is being followed by Dr. Gregory with a history of left great toe amputation done in the past. Patient has infected Patricia and osteomyelitis dated 06/18/2020. Patient is currently a patient in the wound care center. She is undergoing advanced wound care treatment including hyperbaric oxygen therapy. Patient has had amputation to the med transfusion mild joint. The head of the metatarsal bone was exposed. Patient is scheduled for excision of the dementia possible revision of the stump which will was performed on 08/11/2020. Patient's past medical history is significant for diabetes, heart failure, COPD, asthma, hyperlipidemia, hypertension, rheumatoid arthritis Review Of Systems: Constitutional: No fever, no chills, no night sweats. No weight change. No weakness, fatigue or lethargy. No daytime sleepiness. EENT: No headache. No blurred vision or double vision, no loss of vision. No loss of Hearing, no ringing in the ears, no dizziness. No nasal drainage or congestion. No epistaxis. No sore throat. Lungs: No shortness of breath, cough, no sputum production. No wheezing. Cardiovascular: No chest pain, no lower extremity edema. No palpitations. No paroxysmal nocturnal dyspnea. No orthopnea. No lightheadedness or dizziness. No syncopal episodes. Abdominal: no abdominal discomfort. No nausea, vomiting. no diarrhea. No constipation. No bloody or tarry stools. no loss of appetite. Genitourinary: No dysuria, increased frequency, urgency. No urinary retention. Musculoskeletal: No myalgias. No muscle weakness, no gait dysfunction, no frequent falls. No back pain. No neck pain. Integumentary: reports wounds, no lesions. No rash or pruritus. No unusual bruising. No change in hair or nails. Neurologic: No aphasia. No facial droop. No change in mentation. No head injury. No headache. No paralysis. No paresthesia. Psychiatric: No depression. No anxiety. No mood swings. Endocrine: No abnormal blood sugars. No weight change. No excessive sweating or thirst. General Appearance: Alert, cooperative, no distress, appears stated age. Neck HEENT: Supple, no lymphadenopathy, no thyroid enlargement, no carotid brui ts. Lungs: Clear to auscultation without crackles or wheezes no rhonchi, no deformity. Chest Wall: Chest wall normal expansion with deep inspiration no tenderness and no deformity was found on exam, no costochondral pain or discomfort. Heart: Regular rate and rhythm, S1, S2 normal, no murmur, rub or gallop. Back: Symmetric, no curvature, ROM normal, no CVA tenderness. Abdomen: Soft, non-tender, no rebound or rigidity, no hepatosplenomegaly. Extremities: Extremities normal, atraumatic, no cyanosis or edema. Pulses: 2+ and symmetric. Skin: Skin color, texture, tugor normal, no rashes or lesions. Dressing in place to the left great toe with synchronous drainage. Neurologic: Alert oriented x3 cranial nerves II through XII intact, no motor deficit, no abnormal balance or gait Assessment/plan: 1. Diabetic foot ulcer with osteomyelitis status post stump revision. Continue with dressing changes per wound care. Consult Dr. Mccabe for IV antibiotics. Patient is currently on Keflex every 8 hours. Lantus 15 units subcu twice a day 2. Peripheral vascular disease. Aspirin. Followed with vascular surgeon. 3. Coronary artery disease, aspirin, Norvasc, Cozaar, 4. Heart failure, table. 5. COPD. DuoNeb, Pulmicort, pro-air, Singulair 6. History of CVA, able. 7. Hyperlipidemia. Simvastatin 40 mg by mouth at bedtime 8. Hypertension. Toprol 50 mg by mouth, amlodipine 10 mg by mouth at bedtime, Cozaar 50 mg by mouth 9. DVT prophylaxis. SCDs. 10. GI prophylaxis. Pepcid Thank you for the consult we will continue to follow the patient along with you Impression and plan of care have been directed as dictated by the signing physician. Sarita Damian nurse practitioner acting as scribe for signing physician. Past Medical History Past Medical History: Asthma, Coronary Artery Disease (CAD), Heart Failure, COPD, CVA/TIA, Diabetes Mellitus, Hyperlipidemia, Hypertension, Pneumonia, Rheumatoid Arthritis (RA) Additional Past Medical History / Comment(s): STROKE 9-2013. states no residual deficits, left GREAT TOE WOUND, with current dressing, partial amputation on . going to hyperbaric chamber 5 days a week, PICC line right arm Last Myocardial Infarction Date:: 2014 History of Any Multi-Drug Resistant Organisms: None Reported Past Surgical History: Adenoidectomy, Appendectomy, Coronary Bypass/CABG, Heart Catheterization, Tonsillectomy, Tubal Ligation Additional Past Surgical History / Comment(s): Open heart on April 13 2015, cabg X4, bilateral carotid endarterectomies,. Right great toe amputation 2015. stent in right leg above knee, elke cataracts. left toe ambutation, 06/18/20 Past Anesthesia/Blood Transfusion Reactions: Previous Problems w/ Anesthesia Additional Past Anesthesia/Blood Transfusion Reaction / Comment(s): diff breathing afterwards Past Psychological History: No Psychological Hx Reported Smoking Status: Former smoker Past Alcohol Use History: None Reported Additional Past Alcohol Use History / Comment(s): STARTED SMOKING AT AGE 17, SMOKED 1 OR MORE PPD, QUIT 1981 Past Drug Use History: None Reported - Past Family History Father Family Medical History: Coronary Artery Disease (CAD), CVA/TIA, Diabetes Mellitus Mother Additional Family Medical History / Comment(s): "spot on the lung" Medications and Allergies Home Medications Medication Instructions Recorded Confirmed Type Metoprolol Succinate [Toprol XL] 50 mg PO QAM 05/02/15 08/11/20 History Nitroglycerin Sl Tabs [Nitrostat] 0.4 mg SL Q5M PRN 05/02/15 08/10/20 History Aspirin 81 mg PO DAILY 04/15/17 08/11/20 History Simvastatin [Zocor] 40 mg PO HS 04/15/17 08/11/20 History amLODIPine [Norvasc] 10 mg PO HS 04/15/17 08/11/20 History Abatacept [Orencia] 125 mg SQ WE 05/07/19 08/11/20 History Albuterol Sulfate [Proair Hfa] 2 puff INHALATION RT-Q4H PRN 06/16/20 08/11/20 History Citalopram Hydrobromide [CeleXA] 40 mg PO DAILY 06/16/20 08/11/20 History Ipratropium/Albuterol Sulfate 2 puff INHALATION RT-DAILY 06/16/20 08/10/20 History [Combivent Respimat Inhaler] Losartan [Cozaar] 50 mg PO QAM 06/16/20 08/11/20 History Pregabalin [Lyrica] 75 mg PO 06/16/20 08/11/20 History traMADol HCL 50 mg PO BID PRN 06/16/20 08/11/20 History Insulin Aspart [NovoLOG Flexpen] 10 units SQ AC-TID #0 06/26/20 08/11/20 Rx Insulin Glargine,Hum.rec.anlog 15 unit SQ BID #0 06/26/20 08/11/20 Rx [Lantus Solostar] Budesonide [Pulmicort] 1 mg INHALATION RT-BID PRN 07/15/20 08/11/20 History Ipratropium-Albuterol Nebulize 3 ml INHALATION RT-QID PRN 07/15/20 08/11/20 History [Duoneb 0.5 mg-3 mg/3 ml Soln] Montelukast Sodium [Singulair] 10 mg PO HS 07/15/20 08/11/20 History prednisoLONE ACETATE 1% OPHTH 1 drops LEFT EYE TID 07/15/20 08/10/20 History [Pred Forte 1%] Ketorolac [Toradol] 10 mg PO Q6HR PRN 08/10/20 08/11/20 History Allergies Allergy/AdvReac Type Severity Reaction Status Date / Time nickel Allergy Rash/Hives Verified 08/11/20 12:36 Physical Exam Vitals: Vital Signs Temp Pulse Pulse Resp BP Pulse Ox 08/12/20 11:37 97.6 F 86 19 130/66 96 08/12/20 08:00 18 08/12/20 04:30 97.6 F 90 16 111/75 94 L 08/11/20 20:00 97.6 F 82 18 109/43 94 L 08/11/20 17:01 97.8 F 57 L 19 144/71 97 08/11/20 16:31 77 16 167/74 95 08/11/20 16:00 77 16 169/72 96 08/11/20 15:45 77 16 157/70 96 08/11/20 15:30 78 16 146/67 96 08/11/20 15:15 78 16 148/68 96 08/11/20 15:00 77 16 150/67 95 08/11/20 14:46 79 16 146/67 95 08/11/20 14:31 79 16 145/73 95 08/11/20 14:13 97 F L 82 16 136/64 95 08/11/20 12:26 98.2 F 87 16 119/59 97 Intake and Output 08/11/20 08/12/20 08/12/20 22:59 06:59 14:59 Intake Total 480 690 Balance 480 690 Intake: Intake, IV Titration 100 Amount ceFAZolin 1,000 mg In 50 Sodium Chloride 0.9% 50 ml @ 100 mls/hr IVPB Q8HR JAY Rx#:[id number] ceFAZolin 2 gm In Sodium 50 Chloride 0.9% 50 ml @ 100 mls/hr IVPB ONCE PRN Rx# :[id number] Oral 480 590 Other: Voiding Method Toilet # Voids 2 Results CBC & Chem 7: 08/11/20 13:00 Labs: Abnormal Lab Results - Last 24 Hours (Table) 08/11/20 08/11/20 08/11/20 Range/Units 12:56 17:06 20:25 POC Glucose (mg/dL) 151 H 170 H 367 H (75-99) mg/dL 08/12/20 08/12/20 Range/Units 07:06 11:24 POC Glucose (mg/dL) 143 H 281 H (75-99) mg/dL Thrombosis Risk Factor Assmnt - Choose All That Apply Any of the Below Risk Factors Present?: Yes Each Factor Represents 1 point: History of prior major surgery (<1month), Obesity (BMI >25) Each Risk Factor Represents 2 Points: Age 61-74 years Thrombosis Risk Factor Assessment Total Risk Factor Score: 4 Thrombosis Risk Factor Assessment Level: Moderate Risk
[2020-08-12] MEDS ORDERED: VANCOMYCIN IV PER PHARMACY 1 EACH MISC MISCELLANE PRN (13:10)
[2020-08-12] MEDS: VANCOMYCIN 1,500 MG in SODIUM CHLORIDE 0.9% 250 ML IVPB SCH (13:42)
[2020-08-12] MEDS: metroNIDAZOLE 500 MG TAB PO SCH ×2 (15:13→21:23)
--- NOTE | 2020-08-12 16:45 | CONS ---
CONSULTATION DATE OF SERVICE: 08/12/2020 REASON FOR CONSULTATION: Left big toe infection and need for antibiotic therapy. HISTORY OF PRESENT ILLNESS: The patient is a 70-year-old female who was recently admitted at this facility with left big toe gangrene in this patient who is status post left big toe amputation on 06/18/2020. Local culture positive predominantly with coagulase negative staph. Patient did get a PICC line and was advised will switch to IV vancomycin therapy. Unfortunately the patient did not have a good follow up in the outpatient setting with me and hence antibiotic was recently discontinued. Patient continued to follow with Dr. Gregory [facility] and the patient was noticed to have the bone getting exposed. The patient has been electively admitted to the hospital for the excision of metatarsal bone and wound debridement that was completed yesterday afternoon. Unfortunately, no culture has been done and no blood work. The patient was treated with cefazolin. I was asked to see the patient today to recommend antibiotic for discharge. The patient currently denies having any fever or any chills. No chest pain, shortness of breath or cough. No abdominal pain or pain to the left big toe. No diarrhea. REVIEW OF SYSTEMS: Positive points have been mentioned in HPI. Rest of systems are negative. PAST MEDICAL HISTORY: Asthma, coronary artery disease, heart failure, COPD, CVA, TIA, hypertension, hyperlipidemia, diabetes mellitus. PAST SURGICAL HISTORY: Appendectomy, hemorrhoidectomy, coronary artery bypass grafting, heart catheterization, tonsillectomy and tubal ligation. SOCIAL HISTORY: Remote history of smoking. No drinking or drug use. FAMILY HISTORY: No pertinent findings noticed. ALLERGIES: NICKEL. MEDICATIONS: Include the patient is currently on Ventolin, DuoNeb, Norvasc, aspirin, Lipitor, Pulmicort, Celexa, Pepcid, NovoLog, Levemir, Cozaar, Singulair, Lyrica, and Cefazolin. PHYSICAL EXAMINATION: Blood pressure 130/66, pulse of 83, temperature 97.6. He is 96% on room air. General description: The patient is an elderly female lying in bed in no distress. No tachypnea or accessory muscles of respiration use. HEENT: Shows no pallor. No scleral icterus. Oral mucous membranes dry. NECK: Trachea central. No thyromegaly. LUNGS: Unlabored breathing, clear to auscultation anteriorly with no wheeze or crackles. HEART S1, S2. Regular rate and rhythm. ABDOMEN: Soft, no tenderness. EXTREMITIES: No edema of the feet. Left foot has been dressed up by the surgery. RN did not take the dressing off. However, I did review the pictures that were taken by the patient herself. She did have significant inflammatory changes around her amputated site. NEUROLOGICAL: Patient is awake, alert, oriented times three. Mood and affect normal. LABS: No new labs. DIAGNOSTIC IMPRESSION AND PLAN: Patient with left big toe gangrene status post amputation, now with nonhealing of the wound requiring a repeat debridement. Unfortunately no cultures were done. However, there were significant inflammatory changes that were noticed on the pictures taken by the patient with concern for possible cellulitis and need for IV antibiotic therapy. Previous culture positive for coagulase-negative Staph. PLAN: 1. Discontinue cefazolin. 2. We will start the patient on vancomycin, pharmacy to dose and oral Flagyl. 3. We will obtain a CRP, sedimentation rate. If significantly elevated, we will recommend getting a PICC line for outpatient course of antibiotic therapy. 4. We will follow on clinical condition and investigations to further adjust medication if needed. Thank you for this consultation. We will follow this patient along with you. MMODL / IJN: [id number] /
[2020-08-12 16:59] LABS: Glucose,Whole Blood 243 mg/dL (75-99)
[2020-08-12 20:15] LABS: Glucose,Whole Blood 189 mg/dL (75-99)
[2020-08-12] MEDS: MONTELUKAST 10 MG TAB PO SCH (21:04)
[2020-08-12] MEDS: ATORVASTATIN 20 MG TAB PO SCH (21:04)
[2020-08-12] MEDS: amLODIPine 10 MG TAB PO SCH (21:04)
[2020-08-12] MEDS: PREGABALIN 75 MG CAP PO SCH (21:04)
[2020-08-13 06:45] LABS: African American GFR (CKD) 43 (>60 ml/min/1.73 sqM); Anion Gap 8 mmol/L; Blood Urea Nitrogen 32 mg/dL (7-17); C Reactive Protein 1.8 mg/dL (<1.0); Calcium 8.3 mg/dL (8.4-10.2); Carbon Dioxide 19 mmol/L (22-30); Chloride 113 mmol/L (98-107); Glucose 145 mg/dL (74-99); Non-African American GFR(CKD) 37 (>60 ml/min/1.73 sqM); Potassium 4.7 mmol/L (3.5-5.1); Sodium 140 mmol/L (137-145)
[2020-08-13 06:58] LABS: Basophils % (A) 0 %; Eosinophils # (A) 0.1 k/uL (0-0.7); Eosinophils % (A) 2 %; HCT 33.2 % (34.0-46.0); Lymphocytes # (A) 2.2 k/uL (1.0-4.8); Lymphocytes % (A) 35 %; MCH 30.4 pg (25.0-35.0); MCHC 32.5 g/dL (31.0-37.0); Mean Platelet Volume 7.2; Monocytes # (A) 0.4 k/uL (0-1.0); Monocytes % (A) 6 %; Neutrophils # (A) 3.4 k/uL (1.3-7.7); Platelet Count 210 k/uL (150-450); RBC 3.55 m/uL (3.80-5.40); RDW 14.1 % (11.5-15.5); WBC 6.2 k/uL (3.8-10.6)
[2020-08-13 07:19] LABS: Glucose,Whole Blood 133 mg/dL (75-99)
[2020-08-13] MEDS: IPRATROPIUM-ALBUTEROL 3 ML NEB INHALATION SCH (07:29)
[2020-08-13 07:30] LABS: HGB 10.8 gm/dL (11.4-16.0)
[2020-08-13 07:31] LABS: MCV 93.3 fL (80.0-100.0)
[2020-08-13] MEDS: INSULIN DETEMIR (LEVEMIR) 100 UNIT/ML SYR SQ SCH ×2 (08:14→21:10)
[2020-08-13] MEDS: ASPIRIN 81 MG PO SCH (08:14)
[2020-08-13] MEDS: INSULIN ASPART (NovoLOG) 100 UNIT/ML VIAL SQ SCH ×6 (08:14→21:09)
[2020-08-13] MEDS: CITALOPRAM HYDROBROMIDE 20 MG TAB PO SCH (08:14)
[2020-08-13] MEDS: FAMOTIDINE 20 MG TAB PO SCH (08:14)
[2020-08-13] MEDS: LOSARTAN 50 MG TAB PO SCH (08:14)
[2020-08-13] MEDS: METOPROLOL SUCCINATE (ER) 50 MG TAB.ER.24H PO SCH (08:14)
[2020-08-13] MEDS: LACTATED RINGERS 1,000 ML IV SCH (08:15)
[2020-08-13] MEDS: VANCOMYCIN 1,500 MG in SODIUM CHLORIDE 0.9% 250 ML IVPB SCH (08:15)
[2020-08-13] MEDS: metroNIDAZOLE 500 MG TAB PO SCH ×3 (08:16→23:16)
[2020-08-13] MEDS: prednisoLONE ACETATE 1% OPHTH DROPS 5 ML BTL LEFT EYE SCH ×3 (08:17→21:10)
--- NOTE | 2020-08-13 10:41 | P.PN ---
Subjective Progress Note Date: 08/13/20 This is a 70-year-old patient who is being followed by Dr. Gregory with a history of left great toe amputation done in the past. Patient has infected Patricia and osteomyelitis dated 06/18/2020. Patient is currently a patient in the wound care center. She is undergoing advanced wound care treatment inclu ding hyperbaric oxygen therapy. Patient has had amputation to the med transfusion mild joint. The head of the metatarsal bone was exposed. Patient is scheduled for excision of the dementia possible revision of the stump which will was performed on 08/11/2020. Patient's past medical history is significant for diabetes, heart failure, COPD, asthma, hyperlipidemia, hypertension, rheumatoid arthritis 08/13: She was seen yesterday by Dr. Gregory however she was not discharged as she is waiting for Dr. Villa to make recommendations on antibiotics. Patient is anticipating discharge today. She will return to wound care and [facility] for continuous treatment. Blood sugars in the afternoon have been elevated. We will increase her insulin NovoLog to 12 units at lunchtime. Review Of Systems: Constitutional: No fever, no chills, no night sweats. No weight change. No weakness, fatigue or lethargy. No daytime sleepiness. EENT: No headache. No blurred vision or double vision, no loss of vision. No loss of Hearing, no ringing in the ears, no dizziness. No nasal drainage or congestion. No epistaxis. No sore throat. Lungs: No shortness of breath, cough, no sputum production. No wheezing. Cardiovascular: No chest pain, no lower extremity edema. No palpitations. No paroxysmal nocturnal dyspnea. No orthopnea. No lightheadedness or dizziness. No syncopal episodes. Abdominal: no abdominal discomfort. No nausea, vomiting. no diarrhea. No constipation. No bloody or tarry stools. no loss of appetite. Genitourinary: No dysuria, increased frequency, urgency. No urinary retention. Musculoskeletal: No myalgias. No muscle weakness, no gait dysfunction, no frequent falls. No back pain. No neck pain. Integumentary: reports wounds, no lesions. No rash or pruritus. No unusual br uising. No change in hair or nails. Neurologic: No aphasia. No facial droop. No change in mentation. No head injury. No headache. No paralysis. No paresthesia. Psychiatric: No depression. No anxiety. No mood swings. Endocrine: No abnormal blood sugars. No weight change. No excessive sweating or thirst. General Appearance: Alert, cooperative, no distress, appears stated age. Neck HEENT: Supple, no lymphadenopathy, no thyroid enlargement, no carotid bruits. Lungs: Clear to auscultation without crackles or wheezes no rhonchi, no deformity. Chest Wall: Chest wall normal expansion with deep inspiration no tenderness and no deformity was found on exam, no costochondral pain or discomfort. Heart: Regular rate and rhythm, S1, S2 normal, no murmur, rub or gallop. Back: Symmetric, no curvature, ROM normal, no CVA tenderness. Abdomen: Soft, non-tender, no rebound or rigidity, no hepatosplenomegaly. Extremities: Extremities normal, atraumatic, no cyanosis or edema. Pulses: 2+ and symmetric. Skin: Skin color, texture, tugor normal, no rashes or lesions. Dressing in place to the left great toe with synchronous drainage. Neurologic: Alert oriented x3 cranial nerves II through XII intact, no motor deficit, no abnormal balance or gait Assessment/plan: 1. Diabetic foot ulcer with osteomyelitis status post stump revision. Continue with dressing changes per wound care. Consult Dr. Mccabe for IV antibiotics. Patient is currently on Keflex every 8 hours. Lantus 15 units subcu twice a day. NovoLog changed to 10 units at breakfast and dinner and 12 units at lunch. 2. Peripheral vascular disease. Aspirin. Followed with vascular surgeon. 3. Coronary artery disease, aspirin, Norvasc, Cozaar, 4. Heart failure, table. 5. COPD. DuoNeb, Pulmicort, pro-air, Singulair 6. History of CVA, able. 7. Hyperlipidemia. Simvastatin 40 mg by mouth at bedtime 8. Hypertension. Toprol 50 mg by mouth, amlodipine 10 mg by mouth at bedtime, Cozaar 50 mg by mouth 9. DVT prophylaxis. SCDs. 10. GI prophylaxis. Pepcid Thank you for the consult we will continue to follow the patient along with you Impression and plan of care have been directed as dictated by the signing phys nathalie. Sarita Damian nurse practitioner acting as scribe for signing physician. Objective - Vital Signs Vital signs: Vital Signs Temp 97.7 F 08/13/20 05:00 Pulse 70 08/13/20 05:00 Resp 16 08/13/20 05:00 BP 131/71 08/13/20 05:00 Pulse Ox 91 L 08/13/20 05:00 Intake & Output 08/12/20 08/13/20 08/13/20 18:59 06:59 18:59 Intake Total 1930 590 Balance 1930 590 Intake: Intake, IV Titration 350 Amount Vancomycin 1,500 mg In 250 Sodium Chloride 0.9% 250 ml @ 125 mls/hr IVPB Q24HR [facility] Rx#:[id number] ceFAZolin 1,000 mg In 100 Sodium Chloride 0.9% 50 ml @ 100 mls/hr IVPB Q8HR [facility] Rx#:[id number] Oral 1580 590 Other: Voiding Method Toilet # Voids 3 3 - Labs CBC & Chem 7: 08/13/20 05:30 08/13/20 05:30 Labs: Abnormal Lab Results - Last 24 Hours (Table) 08/12/20 08/12/20 08/12/20 Range/Units 11:24 16:56 20:14 RBC (3.80-5.40) m/uL Hgb (11.4-16.0) gm/dL Hct (34.0-46.0) % Chloride (98-107) mmol/L Carbon Dioxide (22-30) mmol/L BUN (7-17) mg/dL Creatinine (0.52-1.04) mg/dL Glucose (74-99) mg/dL POC Glucose (mg/dL) 281 H 243 H 189 H (75-99) mg/dL Calcium (8.4-10.2) mg/dL C-Reactive Protein (<1.0) mg/dL 08/13/20 08/13/20 08/13/20 Range/Units 05:30 05:30 07:13 RBC 3.55 L (3.80-5.40) m/uL Hgb 10.8 L D (11.4-16.0) gm/dL Hct 33.2 L (34.0-46.0) % Chloride 113 H (98-107) mmol/L Carbon Dioxide 19 L (22-30) mmol/L BUN 32 H (7-17) mg/dL Creatinine 1.42 H (0.52-1.04) mg/dL Glucose 145 H (74-99) mg/dL POC Glucose (mg/dL) 133 H (75-99) mg/dL Calcium 8.3 L (8.4-10.2) mg/dL C-Reactive Protein 1.8 H (<1.0) mg/dL
[2020-08-13 11:09] LABS: Erythrocyte Sedimentation Rate 56 mm/hr (0-20)
[2020-08-13 12:03] LABS: Glucose,Whole Blood 93 mg/dL (75-99)
[2020-08-13 14:13] LABS: Hemoglobin A1C 8.1 % (4.0-6.0)
[2020-08-13 17:21] LABS: Glucose,Whole Blood 180 mg/dL (75-99)
[2020-08-13] MEDS ORDERED: INSULIN ASPART (NovoLOG) 100 UNIT/ML VIAL SQ SCH (17:30)
[2020-08-13 20:18] LABS: Glucose,Whole Blood 171 mg/dL (75-99)
[2020-08-13] MEDS: ATORVASTATIN 20 MG TAB PO SCH (21:10)
[2020-08-13] MEDS: amLODIPine 10 MG TAB PO SCH (21:10)
[2020-08-13] MEDS: PREGABALIN 75 MG CAP PO SCH (21:10)
[2020-08-13] MEDS: MONTELUKAST 10 MG TAB PO SCH (21:10)
--- NOTE | 2020-08-14 05:25 | PN ---
PROGRESS NOTE DATE OF SERVICE: 08/13/2020. REASON FOR FOLLOWUP: Left big toe diabetic foot infection with underlying osteomyelitis. INTERVAL HISTORY: The patient is afebrile. The patient is breathing comfortably. Denies having any chest pain, shortness of breath, cough, abdominal pain or pain to the left knee. PHYSICAL EXAMINATION: Blood pressure 120/69, pulse of 77, temperature 97.7, 90% on room air. General description is an elderly female up in the in no distress. Respiratory system: Unlabored breathing, clear to auscultation anteriorly. Heart S1, S2. Regular rate and rhythm. Abdomen soft, no tenderness. Left big toe amputation site wound with Minimal swelling and redness. No significant drainage. LABS: Hemoglobin is 10.1, white count 6.2. ESR 56. CRP is 1.8. DIAGNOSTIC IMPRESSION AND PLAN: Patient with nonhealing wound to the left big toe amputation site with concern for possible underlying osteomyelitis. The patient will continue with vancomycin, Pharmacy to dose for at least another four weeks along with oral Flagyl. Local wound care with Aquacel Silver dressing. Plan of care was discussed with vascular surgeon. MMODL / IJN: [id number] / PARESH
[2020-08-14 06:59] LABS: Glucose,Whole Blood 176 mg/dL (75-99)
[2020-08-14] MEDS: LACTATED RINGERS 1,000 ML IV SCH (07:10)
[2020-08-14] MEDS ORDERED: INSULIN ASPART (NovoLOG) 100 UNIT/ML VIAL SQ SCH (07:30)
[2020-08-14] MEDS: IPRATROPIUM-ALBUTEROL 3 ML NEB INHALATION SCH (08:10)
[2020-08-14] MEDS ORDERED: FUROSEMIDE 10 MG/ML 4 ML VIAL IV STA (09:04)
[2020-08-14] MEDS ORDERED: POTASSIUM CHLORIDE ER 10 MEQ TAB.ER.PRT PO SCH (09:15)
[2020-08-14] MEDS: VANCOMYCIN 1,500 MG in SODIUM CHLORIDE 0.9% 250 ML IVPB SCH (09:42)
[2020-08-14] MEDS: INSULIN ASPART (NovoLOG) 100 UNIT/ML VIAL SQ SCH ×3 (09:44→12:47)
[2020-08-14] MEDS: INSULIN DETEMIR (LEVEMIR) 100 UNIT/ML SYR SQ SCH (09:45)
[2020-08-14] MEDS: FAMOTIDINE 20 MG TAB PO SCH (09:45)
[2020-08-14] MEDS: LOSARTAN 50 MG TAB PO SCH (09:45)
[2020-08-14] MEDS: ASPIRIN 81 MG PO SCH (09:45)
[2020-08-14] MEDS: METOPROLOL SUCCINATE (ER) 50 MG TAB.ER.24H PO SCH (09:45)
[2020-08-14] MEDS: metroNIDAZOLE 500 MG TAB PO SCH (09:46)
[2020-08-14] MEDS: CITALOPRAM HYDROBROMIDE 20 MG TAB PO SCH (09:46)
[2020-08-14] MEDS: prednisoLONE ACETATE 1% OPHTH DROPS 5 ML BTL LEFT EYE SCH (09:47)
--- NOTE | 2020-08-14 12:10 | P.PN ---
Subjective Progress Note Date: 08/14/20 This is a 70-year-old patient who is being followed by Dr. Gregory with a history of left great toe amputation done in the past. Patient has infected Patricia and osteomyelitis dated 06/18/2020. Patient is currently a patient in the wound care center. She is undergoing advanced wound care treatment incl uding hyperbaric oxygen therapy. Patient has had amputation to the med transfusion mild joint. The head of the metatarsal bone was exposed. Patient is scheduled for excision of the dementia possible revision of the stump which will was performed on 08/11/2020. Patient's past medical history is significant for diabetes, heart failure, COPD, asthma, hyperlipidemia, hypertension, rheumatoid arthritis 08/13: She was seen yesterday by Dr. Gregory however she was not discharged as she is waiting for Dr. Villa to make recommendations on antibiotics. Patient is anticipating discharge today. She will return to wound care and [facility] for continuous treatment. Blood sugars in the afternoon have been elevated. We will increase her insulin NovoLog to 12 units at lunchtime. 08/14: Dr. Mccabe has recommended vancomycin IV, pharmacy to dose, for 4 weeks along with Flagyl oral for 4 weeks. Patient has a PICC line in place. She has been afebrile, heart rate 86, blood pressure 130/65, pulse ox 91% on room air. Blood sugars are running between 171 and 180. Repeat blood work for today reveals hemoglobin A1c is 8.1 which is improved from June of 8.8. is cleared for discharge from medicine. Review Of Systems: Constitutional: No fever, no chills, no night sweats. No weight change. No wea kness, fatigue or lethargy. No daytime sleepiness. EENT: No headache. No blurred vision or double vision, no loss of vision. No loss of Hearing, no ringing in the ears, no dizziness. No nasal drainage or congestion. No epistaxis. No sore throat. Lungs: No shortness of breath, cough, no sputum production. No wheezing. Cardiovascular: No chest pain, no lower extremity edema. No palpitations. No paroxysmal nocturnal dyspnea. No orthopnea. No lightheadedness or dizziness. No syncopal episodes. Abdominal: no abdominal discomfort. No nausea, vomiting. no diarrhea. No constipation. No bloody or tarry stools. no loss of appetite. Genitourinary: No dysuria, increased frequency, urgency. No urinary retention. Musculoskeletal: No myalgias. No muscle weakness, no gait dysfunction, no frequent falls. No back pain. No neck pain. Integumentary: reports wounds, no lesions. No rash or pruritus. No unusual bruising. No change in hair or nails. Neurologic: No aphasia. No facial droop. No change in mentation. No head injury. No headache. No paralysis. No paresthesia. Psychiatric: No depression. No anxiety. Endocrine: No abnormal blood sugars. No weight change. Physical examination General Appearance: Alert, cooperative, no distress, appears stated age. Neck HEENT: Supple, no lymphadenopathy, no thyroid enlargement, no carotid bruits. Lungs: Clear to auscultation without crackles or wheezes no rhonchi, no deformity. Chest Wall: Chest wall normal expansion with deep inspiration no tenderness and no deformity was found on exam, no costochondral pain or discomfort. Heart: Regular rate and rhythm, S1, S2 normal, no murmur, rub or gallop. Back: Symmetric, no curvature, ROM normal, no CVA tenderness. Abdomen: Soft, non-tender, no rebound or rigidity, no hepatosplenomegaly. Extremities: Extremities normal, atraumatic, no cyanosis or edema. Pulses: 2+ and symmetric. Skin: Skin color, texture, tugor normal, no rashes or lesions. Dressing in place to the left great toe with synchronous drainage. Neurologic: Alert oriented x3 cranial nerves II through XII intact, no motor deficit, no abnormal balance or gait Assessment/plan: 1. Diabetic foot ulcer with osteomyelitis status post stump revision. Continue with dressing changes per wound care. Consult with Dr. Mccabe appreciated. Patient is on vancomycin and Flagyl to be continued for 4 weeks as an outpatien t. Patient has a PICC line in place. 2. Diabetes mellitus type 2, insulin requiring, uncontrolled with hyperglycemia. Continue Lantus 15 units subcu twice a day. NovoLog changed to 10 units at breakfast and dinner and 12 units at lunch. 3. Peripheral vascular disease. Aspirin. Followed with vascular surgeon. 4. Coronary artery disease, aspirin, Norvasc, Cozaar, 5. Chronic systolic heart failure, stable. 6. COPD. DuoNeb, Pulmicort, pro-air, Singulair 7. History of CVA, able. 8. Hyperlipidemia. Simvastatin 40 mg by mouth at bedtime 9. Hypertension. Toprol 50 mg by mouth, amlodipine 10 mg by mouth at bedtime, Cozaar 50 mg by mouth 10. Recurrent depression. 11. DVT prophylaxis. SCDs. 12. GI prophylaxis. Pepcid Thank you for the consult we will continue to follow the patient along with you. Impression and plan of care have been directed as dictated by the signing physician. Emily Higginbotham nurse practitioner acting as scribe for signing physician. Objective - Vital Signs Vital signs: Vital Signs Temp 97.5 F L 08/14/20 04:37 Pulse 86 08/14/20 04:37 Resp 16 08/14/20 04:37 BP 130/65 08/14/20 04:37 Pulse Ox 91 L 08/14/20 04:37 Intake & Output 08/13/20 08/14/20 08/14/20 18:59 06:59 18:59 Intake Total 1210 1200 Balance 1210 1200 Intake: Intake, IV Titration 250 Amount Vancomycin 1,500 mg In 250 Sodium Chloride 0.9% 250 ml @ 125 mls/hr IVPB Q24HR [facility] Rx#:[id number] Oral 960 1200 Other: Voiding Method Toilet Toilet # Voids 2 3 - Labs CBC & Chem 7: 08/13/20 05:30 08/13/20 05:30 Labs: Abnormal Lab Results - Last 24 Hours (Table) 08/13/20 08/13/20 08/13/20 Range/Units 05:30 05:30 17:11 ESR 56 H (0-20) mm/hr POC Glucose (mg/dL) 180 H (75-99) mg/dL Hemoglobin A1c 8.1 H (4.0-6.0) % 08/13/20 08/14/20 Range/Units 20:16 06:58 ESR (0-20) mm/hr POC Glucose (mg/dL) 171 H 176 H (75-99) mg/dL Hemoglobin A1c (4.0-6.0) %
[2020-08-14 12:39] LABS: Glucose,Whole Blood 207 mg/dL (75-99)
[2020-08-14 13:08] VITALS: BP 108/65; PULSE 70; RESP 18; TEMP 97.6
[2020-08-14 13:55] VITALS: BMI 34.6
--- NOTE | 2020-08-14 14:44 | P.DS ---
Providers Attending physician: Rustam Gregory Consults: 08/11/20 15:02 Consult Physician Routine Consulting Provider: Mikel Delong Consult Reason/Comments: medical management Do you want consulting provider notified?: Yes 08/12/20 08:31 Consult Physician Routine Consulting Provider: Singh Mccabe Consult Reason/Comments: IV abx was on vanco prior to amputation Do you want consulting provider notified?: Yes Primary care physician: Jacob Sanderson Patient is 70-year-old female preoperative diagnoses is infected left foot big toe wound with exposed head of the metatarsal bone Postoperative same Procedure excision of the head of the metatarsal bone and wound debridement This patient had a impression and in the past patient developed Exposed to head of the metatarsal bone and some the debridement callus tissue H was a debrided and excised the head of the metatarsal bone patient was under care of infectious disease for IV antibiotic we been treating with local wound care using Aquacel silver. Plan is patient going home today follow in the wound clinic patient is on hyperbaric treatment and patient didn't care of infectious disease for IV antibiotic Plan - Discharge Summary Discharge Rx Participant: No New Discharge Prescriptions: New Vancomycin 1,500 mg IVPB Q24HR #28 vial metroNIDAZOLE [Flagyl] 500 mg PO TID #84 tab Furosemide [Lasix] 20 mg PO DAILY #1 tab Continue Nitroglycerin Sl Tabs [Nitrostat] 0.4 mg SL Q5M PRN PRN Reason: Chest Pain Metoprolol Succinate [Toprol XL] 50 mg PO QAM amLODIPine [Norvasc] 10 mg PO HS Simvastatin [Zocor] 40 mg PO HS Aspirin 81 mg PO DAILY Abatacept [Orencia] 125 mg SQ WE Ipratropium/Albuterol Sulfate [Combivent Respimat Inhaler] 2 puff INHALATION RT-DAILY Albuterol Sulfate [Proair Hfa] 2 puff INHALATION RT-Q4H PRN PRN Reason: Shortness Of Breath traMADol HCL 50 mg PO BID PRN PRN Reason: Pain Pregabalin [Lyrica] 75 mg PO HS Losartan [Cozaar] 50 mg PO QAM Citalopram Hydrobromide [CeleXA] 40 mg PO DAILY Insulin Glargine,Hum.rec.anlog [Lantus Solostar] 15 unit SQ BID #0 Ipratropium-Albuterol Nebulize [Duoneb 0.5 mg-3 mg/3 ml Soln] 3 ml INHALATION RT-QID PRN PRN Reason: Shortness Of Breath prednisoLONE ACETATE 1% OPHTH [Pred Forte 1%] 1 drops LEFT EYE TID Insulin Aspart [NovoLOG Flexpen] 10 units SQ AC-TID #0 Budesonide [Pulmicort] 1 mg INHALATION RT-BID PRN PRN Reason: Shortness Of Breath Montelukast Sodium [Singulair] 10 mg PO HS Ketorolac [Toradol] 10 mg PO Q6HR PRN PRN Reason: Pain Discharge Medication List Metoprolol Succinate [Toprol XL] 50 mg PO QAM 05/02/15 [History] Nitroglycerin Sl Tabs [Nitrostat] 0.4 mg SL Q5M PRN 05/02/15 [History] Aspirin 81 mg PO DAILY 04/15/17 [History] Simvastatin [Zocor] 40 mg PO HS 04/15/17 [History] amLODIPine [Norvasc] 10 mg PO HS 04/15/17 [History] Abatacept [Orencia] 125 mg SQ WE 05/07/19 [History] Albuterol Sulfate [Proair Hfa] 2 puff INHALATION RT-Q4H PRN 06/16/20 [History] Citalopram Hydrobromide [CeleXA] 40 mg PO DAILY 06/16/20 [History] Ipratropium/Albuterol Sulfate [Combivent Respimat Inhaler] 2 puff INHALATION RT-DAILY 06/16/20 [History] Losartan [Cozaar] 50 mg PO QAM 06/16/20 [History] Pregabalin [Lyrica] 75 mg PO HS 06/16/20 [History] traMADol HCL 50 mg PO BID PRN 06/16/20 [History] Insulin Glargine,Hum.rec.anlog [Lantus Solostar] 15 unit SQ BID #0 06/26/20 [Rx] Budesonide [Pulmicort] 1 mg INHALATION RT-BID PRN 07/15/20 [History] Ipratropium-Albuterol Nebulize [Duoneb 0.5 mg-3 mg/3 ml Soln] 3 ml INHALATION RT-QID PRN 07/15/20 [History] Montelukast Sodium [Singulair] 10 mg PO HS 07/15/20 [History] prednisoLONE ACETATE 1% OPHTH [Pred Forte 1%] 1 drops LEFT EYE TID 07/15/20 [History] Ketorolac [Toradol] 10 mg PO Q6HR PRN 08/10/20 [History] Insulin Aspart [NovoLOG Flexpen] 10 units SQ AC-TID #0 08/13/20 [Rx] Furosemide [Lasix] 20 mg PO DAILY #1 tab 08/14/20 [Rx] Vancomycin 1,500 mg IVPB Q24HR #28 vial 08/14/20 [Rx] metroNIDAZOLE [Flagyl] 500 mg PO TID #84 tab 08/14/20 [Rx] Follow up Appointment(s)/Referral(s): [facility], [NON-STAFF] - 1 Week [facility] [NON-STAFF] - 1 Week Jacob Sanderson DO [Primary Care Provider] - 09/22/20 9:45 am Rustam Gregory MD [STAFF PHYSICIAN] - 08/21/20 1:00 pm Singh Mccabe MD [STAFF PHYSICIAN] - 08/22/20 2:45 pm ([address]) Ambulatory/Diagnostic Orders: Basic Metabolic Panel [LAB.AMB] Location: None Selected C Reactive Protein [LAB.AMB] Location: None Selected Complete Blood Count w/diff [LAB.AMB] Location: None Selected Erythrocyte Sedimentation Rate [LAB.AMB] Location: None Selected Vancomycin,Trough [LAB.AMB] Location: None Selected Activity/Diet/Wound Care/Special Instructions: Follow-up wound care/hyperbaric therapy on Friday as previously scheduled Discharge Disposition: HOME WITH HOME HEALTH SERVICES
[2020-08-14 14:59] LABS: Glucose,Whole Blood 48 mg/dL (75-99)
[2020-08-14 15:23] LABS: Glucose,Whole Blood 82 mg/dL (75-99)
[2020-08-14 16:48] LABS: Glucose,Whole Blood 157 mg/dL (75-99)
[2020-08-15] MEDS ORDERED: VANCOMYCIN TROUGH DUE 1 EACH MISC MISCELLANE ONE (08:00)
== END 2020-08-14 17:13 | disposition home health service (06) ==
LOC: OR 11:55 → 5NMEDONC 14:13 → OR 08-14 17:13
PROVIDERS: ATTEND Surgery Vascular Surgery
DX: T87.89 Other complications of amputation stump (principal); E11.621 Type 2 diabetes mellitus with foot ulcer; E11.51 Type 2 diabetes mellitus with diabetic peripheral angiopathy without gangrene; L97.529 Non-pressure chronic ulcer of other part of left foot with unspecified severity; J44.9 Chronic obstructive pulmonary disease, unspecified; I25.10 Atherosclerotic heart disease of native coronary artery without angina pectoris; I11.0 Hypertensive heart disease with heart failure; I50.9 Heart failure, unspecified; E78.5 Hyperlipidemia, unspecified; M06.9 Rheumatoid arthritis, unspecified; Z79.4 Long term (current) use of insulin; Z79.82 Long term (current) use of aspirin; Z79.899 Other long term (current) drug therapy; Z86.73 Personal history of transient ischemic attack (TIA), and cerebral infarction without residual deficits; Z87.891 Personal history of nicotine dependence; Z88.8 Allergy status to other drugs, medicaments and biological substances; Z20.822 Contact with and (suspected) exposure to COVID-19; Y79.3 Surgical instruments, materials and orthopedic devices (including sutures) associated with adverse incidents
CPT/HCPCS: 84132; 87070; 87205; 87075; 87635; 28810; J3370 ×3; J1100; J1940; J0690 ×3; J2405; J2001

== ENCOUNTER → 2020-08-25 | Outpatient (CLI) | payer MEDICARE, OTHER ==
[2020-08-25 19:28] LABS: African American GFR (CKD) 52.7 (60.0-200.0); Anion Gap 10.7 mmol/L (4.00-12.00); BUN/Creat Ratio 18.33 Ratio (12.00-20.00); C Reactive Protein 1.4 mg/dL (0.0-0.8); Calcium 8.4 mg/dL (8.7-10.3); Carbon Dioxide 24.3 mmol/L (21.6-31.8); Non-African American GFR(CKD) 45.4 (60.0-200.0); Potassium 4.2 mmol/L (3.5-5.5)
[2020-08-25 21:23] LABS: Basophils # (A) 0.03 X 10*3/uL (0.00-0.10); Basophils % (A) 0.4 %; Eosinophils # (A) 0.25 X 10*3/uL (0.04-0.35); Eosinophils % (A) 3.3 %; HCT 35.8 % (37.2-46.3); HGB 11.5 g/dL (12.0-15.0); Lymphocytes # (A) 2.02 X 10*3/uL (0.90-5.00); Lymphocytes % (A) 26.3 %; MCH 30.3 pg (27.0-32.0); MCHC 32.1 g/dL (32.0-37.0); MCV 94.5 fL (80.0-97.0); Mean Platelet Volume 10.5 fL (9.5-12.2); Monocytes # (A) 0.73 X 10*3/uL (0.20-1.00); Monocytes % (A) 9.5 %; Neutrophils # (A) 4.63 X 10*3/uL (1.80-7.70); Neutrophils % (A) 60.2 %; Platelet Count 264 X 10*3/uL (140-440); RBC 3.79 X 10*6/uL (4.10-5.20); RDW 13.4 % (11.5-14.5); WBC 7.68 X 10*3/uL (4.50-10.00)
[2020-08-25 23:21] LABS: Erythrocyte Sedimentation Rate 71 mm/Hr (0-30)
== END | disposition home or self-care (01) ==
LOC: LABWHC1 12:52
PROVIDERS: ATTEND Internal Medicine Infectious Disease
DX: M86.172 Other acute osteomyelitis, left ankle and foot (principal)
CPT/HCPCS: 36415; 80048; 80202; 85025; 85652; 86140

== ENCOUNTER 2020-08-29 10:42 | Inpatient (IN) | payer MEDICARE, OTHER ==
[~2020-08-29 10:42] MED LIST changes: -DEXAMETHASONE SOD PHOSPHATE 4 MG/ML 1 ML VIAL IV ONE; -HYDROmorphone 0.5 MG/0.5 ML SYRINGE IVP PRN; +HYDROmorphone 1 MG/ML 1 ML SYRINGE IVP PRN; +HYDROmorphone 1 MG/ML 1 ML SYRINGE IVP STA; -MIDAZOLAM 2 MG/2 ML VIAL IV PRN; -ONDANSETRON 4 MG/2 ML VIAL IVP ONE
[2020-08-29] MEDS ORDERED: ASPIRIN 81 MG PO STA (10:59)
[2020-08-29] MEDS ORDERED: NITROGLYCERIN SL TABS 0.4 MG TAB SUBLINGUAL STA ×3 (10:59)
--- NOTE | 2020-08-29 11:03 | ED ---
General Adult HPI - General Chief complaint: Chest Pain Stated complaint: chest pain Time Seen by Provider: 08/29/20 10:55 Source: patient, RN notes reviewed Mode of arrival: wheelchair Limitations: physical limitation - History of Present Illness Initial comments: Patient is a pleasant 70-year-old female presenting to the emergency Department with chest discomfort. Onset of symptoms was last night. Symptoms do continue. He should and describes discomfort as pressure rated 7/10 without radiation. Patient did have some mild nausea earlier and did feel sweaty earlier. Patient does feel slightly short of breath. No leg pain or leg swelling. Patient does have history of similar symptoms previously associated with previous [place]. - Related Data Home Medications Medication Instructions Recorded Confirmed Metoprolol Succinate [Toprol XL] 50 mg PO QAM 05/02/15 08/29/20 Nitroglycerin Sl Tabs [Nitrostat] 0.4 mg SL Q5M PRN 05/02/15 08/29/20 Aspirin 81 mg PO DAILY 04/15/17 08/29/20 Simvastatin [Zocor] 40 mg PO HS 04/15/17 08/29/20 amLODIPine [Norvasc] 10 mg PO HS 04/15/17 08/29/20 Abatacept [Orencia] 125 mg SQ WE 05/07/19 08/29/20 Albuterol Sulfate [Proair Hfa] 2 puff INHALATION RT-Q4H PRN 06/16/20 08/29/20 Losartan [Cozaar] 50 mg PO QAM 06/16/20 08/29/20 traMADol HCL 50 mg PO BID PRN 06/16/20 08/29/20 Budesonide [Pulmicort] 1 mg INHALATION RT-BID PRN 07/15/20 08/29/20 Ipratropium-Albuterol Nebulize 3 ml INHALATION RT-QID PRN 07/15/20 08/29/20 [Duoneb 0.5 mg-3 mg/3 ml Soln] Montelukast Sodium [Singulair] 10 mg PO HS 07/15/20 08/29/20 Cyclobenzaprine [Flexeril] 10 mg PO TID PRN 08/29/20 08/29/20 DULoxetine HCL [Cymbalta] 60 mg PO DAILY 08/29/20 08/29/20 Insulin Aspart [NovoLOG Flexpen] 10 units SQ AC-BID 08/29/20 08/29/20 Insulin Aspart [NovoLOG Flexpen] 12 units SQ AC-LUNCH 08/29/20 08/29/20 Sulfamethoxazole/Trimethoprim 1 tab PO BID 08/29/20 08/29/20 [Bactrim DS 800-160 mg] Previous Rx's Medication Instructions Recorded Insulin Glargine,Hum.rec.anlog 15 unit SQ BID #0 06/26/20 [Lantus Solostar] Furosemide [Lasix] 20 mg PO DAILY #1 tab 08/14/20 Vancomycin 1,500 mg IVPB Q24HR #28 vial 08/14/20 metroNIDAZOLE [Flagyl] 500 mg PO TID #84 tab 08/14/20 Allergies Allergy/AdvReac Type Severity Reaction Status Date / Time nickel Allergy Rash/Hives Verified 08/29/20 10:47 Review of Systems ROS Statement: Those systems with pertinent positive or pertinent negative responses have been documented in the HPI. ROS Other: All systems not noted in ROS Statement are negative. Constitutional: Denies: fever Eyes: Denies: eye pain ENT: Denies: ear pain Respiratory: Reports: as per HPI. Denies: cough Cardiovascular: Reports: as per HPI, chest pain Endocrine: Denies: fatigue Gastrointestinal: Reports: as per HPI, nausea Genitourinary: Denies: dysuria Musculoskeletal: Denies: back pain Skin: Denies: rash Neurological: Denies: weakness Past Medical History Past Medical History: Asthma, Coronary Artery Disease (CAD), Heart Failure, COPD, CVA/TIA, Diabetes Mellitus, Hyperlipidemia, Hypertension, Pneumonia, Rheumatoid Arthritis (RA) Additional Past Medical History / Comment(s): left GREAT TOE WOUND, with current dressing, partial amputation on 06/28/20. going to hyperbaric chamber 5 days a week, PICC line right arm Last Myocardial Infarction Date:: 2014 History of Any Multi-Drug Resistant Organisms: None Reported Past Surgical History: Adenoidectomy, Appendectomy, Coronary Bypass/CABG, Heart Catheterization, Tonsillectomy, Tubal Ligation Additional Past Surgical History / Comment(s): Open heart on April 13 2015, cabg X4, bilateral carotid endarterectomies,. Right great toe amputation 2014. stent in right leg above knee, elke cataracts. left toe ambutation, 3/7/21 Past Anesthesia/Blood Transfusion Reactions: Previous Problems w/ Anesthesia Additional Past Anesthesia/Blood Transfusion Reaction / Comment(s): diff breathing afterwards Past Psychological History: No Psychological Hx Reported Smoking Status: Former smoker Past Alcohol Use History: None Reported Past Drug Use History: None Reported - Past Family History Father Family Medical History: Coronary Artery Disease (CAD), CVA/TIA, Diabetes Mellitus Mother Additional Family Medical History / Comment(s): "spot on the lung" General Exam Limitations: physical limitation General appearance: alert, in no apparent distress Head exam: Present: normocephalic Eye exam: Present: normal appearance Neck exam: Present: normal inspection Respiratory exam: Present: normal lung sounds bilaterally. Absent: chest wall tenderness Cardiovascular Exam: Present: regular rate, normal rhythm Expanded Peripheral pulses: 2+: Radial (R), Radial (L), Posterior Tibialis (R), Posterior Tibialis (L) GI/Abdominal exam: Present: soft. Absent: tenderness Extremities exam: Present: normal inspection. Absent: calf tenderness Neurological exam: Present: alert Psychiatric exam: Present: normal affect, normal mood Skin exam: Present: normal color Course Vital Signs 08/29/20 08/29/20 10:45 11:10 Temperature 97.6 F Pulse Rate 88 Respiratory 18 Rate Blood Pressure 97/56 121/56 O2 Sat by Pulse 95 Oximetry - Reevaluation(s) Reevaluation #1: 08/29/20 11:01 STEMI alert was called. Case was discussed with Dr. Rondon who will come evaluate patient. EKG #2 shows normal sinus rhythm with a rate of 89. DE 196. QRS 92. QT 404. QTC 491. Normal axis. Inferior ST elevation. Some ST depression in aVL as well as lateral. Previous EKG reviewed dated 03/01/2019. EKG Findings - EKG Comments: EKG Findings:: Normal sinus rhythm with rate of 86. DE 194. QRS 86. QT 404. QTC 483. Normal axis. Normal QRS. ST elevation in inferior. ST depression in aVL as well as some ST depression laterally. Medical Decision Making - Medical Decision Making Patient was seen by Dr. Rondon in the emergency department. Patient has arty gun to [employer] at this time, 11:[address] Delong has been paged for admission covering for Dr. Sanderson. Case was discussed later with Dr. Thompson who agreed for admission, covering for Dr. Guerrero - Lab Data Result diagrams: 08/29/20 10:51 08/29/20 10:51 Lab Results 08/29/20 08/29/20 08/29/20 Range/Units 10:51 10:51 10:51 WBC 8.2 (3.8-10.6) k/uL RBC 3.62 L (3.80-5.40) m/uL Hgb 11.6 (11.4-16.0) gm/dL Hct 33.5 L (34.0-46.0) % MCV 92.3 (80.0-100.0) fL MCH 32.0 (25.0-35.0) pg MCHC 34.7 (31.0-37.0) g/dL RDW 13.7 (11.5-15.5) % Plt Count 239 (150-450) k/uL MPV 6.9 Neutrophils % 65 % Lymphocytes % 25 % Monocytes % 5 % Eosinophils % 3 % Basophils % 0 % Neutrophils # 5.3 (1.3-7.7) k/uL Lymphocytes # 2.1 (1.0-4.8) k/uL Monocytes # 0.4 (0-1.0) k/uL Eosinophils # 0.2 (0-0.7) k/uL Basophils # 0.0 (0-0.2) k/uL PT 9.7 (9.0-12.0) sec INR 0.9 (<1.2) APTT 19.9 L (22.0-30.0) sec Sodium 138 (137-145) mmol/L Potassium 4.4 (3.5-5.1) mmol/L Chloride 107 (98-107) mmol/L Carbon Dioxide 26 (22-30) mmol/L Anion Gap 5 mmol/L BUN 33 H (7-17) mg/dL Creatinine 1.51 H (0.52-1.04) mg/dL Est GFR (CKD-EPI)AfAm 40 (>60 ml/min/1.73 sqM) Est GFR (CKD-EPI)NonAf 35 (>60 ml/min/1.73 sqM) Glucose 301 H (74-99) mg/dL Calcium 8.6 (8.4-10.2) mg/dL Magnesium 1.9 (1.6-2.3) mg/dL Total Bilirubin 0.4 (0.2-1.3) mg/dL AST 206 H (14-36) U/L ALT 25 (4-34) U/L Alkaline Phosphatase 80 (38-126) U/L NT-Pro-B Natriuret Pep pg/mL Total Protein 5.8 L (6.3-8.2) g/dL Albumin 3.2 L (3.5-5.0) g/dL 08/29/20 Range/Units 10:51 WBC (3.8-10.6) k/uL RBC (3.80-5.40) m/uL Hgb (11.4-16.0) gm/dL Hct (34.0-46.0) % MCV (80.0-100.0) fL MCH (25.0-35.0) pg MCHC (31.0-37.0) g/dL RDW (11.5-15.5) % Plt Count (150-450) k/uL MPV Neutrophils % % Lymphocytes % % Monocytes % % Eosinophils % % Basophils % % Neutrophils # (1.3-7.7) k/uL Lymphocytes # (1.0-4.8) k/uL Monocytes # (0-1.0) k/uL Eosinophils # (0-0.7) k/uL Basophils # (0-0.2) k/uL PT (9.0-12.0) sec INR (<1.2) APTT (22.0-30.0) sec Sodium (137-145) mmol/L Potassium (3.5-5.1) mmol/L Chloride (98-107) mmol/L Carbon Dioxide (22-30) mmol/L Anion Gap mmol/L BUN (7-17) mg/dL Creatinine (0.52-1.04) mg/dL Est GFR (CKD-EPI)AfAm (>60 ml/min/1.73 sqM) Est GFR (CKD-EPI)NonAf (>60 ml/min/1.73 sqM) Glucose (74-99) mg/dL Calcium (8.4-10.2) mg/dL Magnesium (1.6-2.3) mg/dL Total Bilirubin (0.2-1.3) mg/dL AST (14-36) U/L ALT (4-34) U/L Alkaline Phosphatase (38-126) U/L NT-Pro-B Natriuret Pep 4600 pg/mL Total Protein (6.3-8.2) g/dL Albumin (3.5-5.0) g/dL Disposition Clinical Impression: ST elevation myocardial infarction (STEMI) Disposition: ADMITTED IP TO THIS HOSP Condition: Serious Is patient prescribed a controlled substance at d/c from ED?: No Decision Time: 11:15
[2020-08-29] MEDS ORDERED: HEPARIN SODIUM 1,000 UN/ML (10ML VL) IV STA (11:07)
[2020-08-29] MEDS ORDERED: IV FLUID CONTINUATION 1,000 ML IV ONE (11:19)
[2020-08-29 11:20] LABS: Basophils % (A) 0 %; Eosinophils # (A) 0.2 k/uL (0-0.7); Eosinophils % (A) 3 %; HCT 33.5 % (34.0-46.0); HGB 11.6 gm/dL (11.4-16.0); Lymphocytes # (A) 2.1 k/uL (1.0-4.8); Lymphocytes % (A) 25 %; MCHC 34.7 g/dL (31.0-37.0); MCV 92.3 fL (80.0-100.0); Mean Platelet Volume 6.9; Monocytes # (A) 0.4 k/uL (0-1.0); Monocytes % (A) 5 %; Neutrophils # (A) 5.3 k/uL (1.3-7.7); Neutrophils % (A) 65 %; Platelet Count 239 k/uL (150-450); RBC 3.62 m/uL (3.80-5.40); RDW 13.7 % (11.5-15.5); WBC 8.2 k/uL (3.8-10.6)
[2020-08-29] MEDS ORDERED: BIVALIRUDIN 250 MG VIAL IV ONE (11:25)
[2020-08-29] MEDS ORDERED: ONDANSETRON 4 MG/2 ML VIAL ONE (11:27)
[2020-08-29] MEDS ORDERED: MIDAZOLAM 2 MG/2 ML VIAL IVP ONE (11:27)
[2020-08-29] MEDS ORDERED: LIDOCAINE 1% INJ 10MG/ML (20 ML MDV) SQ ONE (11:27)
[2020-08-29] MEDS ORDERED: fentaNYL (PF) 50 MCG/ML 2 ML AMP IVP ONE (11:27)
[2020-08-29] MEDS ORDERED: ONDANSETRON 4 MG/2 ML VIAL IVP ONE (11:27)
[2020-08-29 11:28] LABS: Albumin 3.2 g/dL (3.5-5.0); Calcium 8.6 mg/dL (8.4-10.2); Magnesium 1.9 mg/dL (1.6-2.3); Potassium 4.4 mmol/L (3.5-5.1); Total Bilirubin 0.4 mg/dL (0.2-1.3); Total Protein 5.8 g/dL (6.3-8.2)
--- NOTE | 2020-08-29 11:29 | P.CRDCN ---
History of Present Illness Consult date: 08/29/20 History of present illness: HISTORY OF PRESENT ILLNESS: This is a 70-year-old female with a past medical history significant for coronary artery disease with previous CABG 4, hypertension, hyperlipidemia, congestive heart failure, peripheral vascular disease, and diabetes mellitus. Patient follows with a Dr. Brown out of [place]. We have been asked to see the patient in consultation for chest pain/stemi. Patient presented to the ER with chest pain. EKG was completed revealing ST elevation in inferior leads and STEMI alert was activated. Patient examined at the bedside in the emergency room. Patient states she began having chest pain yesterday that has progressively gotten worse. She states the pain is in the middle of her chest and in between her shoulder blades. She also reports shortness of breaht. She denies nausea or vomiting. EKG reveals sinus mechanism with ST elevation in inferior leads. ST depression in lateral leads. Chest xray not completed at the time of dictation Laboratory data: not available at time of dictation Current home cardiac medications include Norvasc 10 mg at night, Zocor 40 mg at night, metoprolol succinate 50 mg in the morning, losartan 50 mg daily, Lasix 20 mg daily, aspirin 81 mg daily REVIEW OF SYSTEMS: At the time of my exam: CONSTITUTIONAL: Denies fever or chills. HEENT: Denies blurred vision, vision changes, or eye pain. Denies hemoptysis CARDIOVASCULAR: Reports chest pain. Denies orthopnea. Denies PND. Denies palpitations RESPIRATORY: Reports shortness of breath. GASTROINTESTINAL: Denies abdominal pain. Denies nausea or vomiting. HEMATOLOGIC: Denies bleeding disorders. GENITOURINARY: Denies any blood in urine. SKIN: Denies pruitis. Denies rash. PHYSICAL EXAM: VITAL SIGNS: Reviewed. GENERAL: Well-developed in no acute distress. HEENT: Head is normocephalic. Pupils are equal, round. Sclerae anicteric. Mucous membranes of the mouth are moist. Neck supple. No JVD or thyromegaly LUNGS: Respirations even and unlabored. Lungs essentially clear to auscultation bilaterally. HEART: Regular rate and rhythm. S1 and S2 heard. ABDOMEN: Soft. Nondistended. Nontender. EXTREMITIES: Normal range of motion. No clubbing or cyanosis. Peripheral pulses intact. No lower extremity edema NEUROLOGIC: Awake and alert. Oriented x 3. ASSESSMENT: Acute inferior STEMI Coronary artery disease with previous CABG x 4, 2015 at [place] Peripheral vascular disease with previous right lower extremity stenting per patient Chronic congestive heart failure, type unknown, echo pending Hypertension Hyperlipidemia Diabetes Mellitus COPD PLAN: Patient evaluated in the ER. EKG with evidence of inferior STEMI. Patient received 325mg aspirin and heparin bolus. Patient advised to undergo emergent cardiac catheterization. Patient agreeable. Patient was transported to vp lab in stable condition. Obtain 2D echo post cardiac cath. Obtain records from [facility]. Resume home medications once med list has been verified. Nurse practitioner note has been reviewed by physician. Signing provider agrees with the documented findings, assessment, and plan of care. Past Medical History Past Medical History: Asthma, Coronary Artery Disease (CAD), Heart Failure, COPD, CVA/TIA, Diabetes Mellitus, Hyperlipidemia, Hypertension, Pneumonia, Rheumatoid Arthritis (RA) Additional Past Medical History / Comment(s): left GREAT TOE WOUND, with current dressing, partial amputation on 06/28/20. going to hyperbaric chamber 5 days a week, PICC line right arm Last Myocardial Infarction Date:: 2014 History of Any Multi-Drug Resistant Organisms: None Reported Past Surgical History: Adenoidectomy, Appendectomy, Coronary Bypass/CABG, Heart Catheterization, Tonsillectomy, Tubal Ligation Additional Past Surgical History / Comment(s): Open heart on April 13 2015, cabg X4, bilateral carotid endarterectomies,. Right great toe amputation 2015. stent in right leg above knee, elke cataracts. left toe ambutation, 06/18/20 Past Anesthesia/Blood Transfusion Reactions: Previous Problems w/ Anesthesia Additional Past Anesthesia/Blood Transfusion Reaction / Comment(s): diff breathing afterwards Past Psychological History: No Psychological Hx Reported Smoking Status: Former smoker Past Alcohol Use History: None Reported Past Drug Use History: None Reported - Past Family History Father Family Medical History: Coronary Artery Disease (CAD), CVA/TIA, Diabetes Mellitus Mother Additional Family Medical History / Comment(s): "spot on the lung" Medications and Allergies Home Medications Medication Instructions Recorded Confirmed Type Metoprolol Succinate [Toprol XL] 50 mg PO QAM 05/02/15 08/11/20 History Nitroglycerin Sl Tabs [Nitrostat] 0.4 mg SL Q5M PRN 05/02/15 08/10/20 History Aspirin 81 mg PO DAILY 04/15/17 08/11/20 History Simvastatin [Zocor] 40 mg PO HS 04/15/17 08/11/20 History amLODIPine [Norvasc] 10 mg PO HS 04/15/17 08/11/20 History Abatacept [Orencia] 125 mg SQ WE 05/07/19 08/11/20 History Albuterol Sulfate [Proair Hfa] 2 puff INHALATION RT-Q4H PRN 06/16/20 08/11/20 History Citalopram Hydrobromide [CeleXA] 40 mg PO DAILY 06/16/20 08/11/20 History Ipratropium/Albuterol Sulfate 2 puff INHALATION RT-DAILY 06/16/20 08/10/20 History [Combivent Respimat Inhaler] Losartan [Cozaar] 50 mg PO QAM 06/16/20 08/11/20 History Pregabalin [Lyrica] 75 mg PO HS 06/16/20 08/11/20 History traMADol HCL 50 mg PO BID PRN 06/16/20 08/11/20 History Insulin Glargine,Hum.rec.anlog 15 unit SQ BID #0 06/26/20 08/11/20 Rx [Lantus Solostar] Budesonide [Pulmicort] 1 mg INHALATION RT-BID PRN 07/15/20 08/11/20 History Ipratropium-Albuterol Nebulize 3 ml INHALATION RT-QID PRN 07/15/20 08/11/20 History [Duoneb 0.5 mg-3 mg/3 ml Soln] Montelukast Sodium [Singulair] 10 mg PO HS 07/15/20 08/11/20 History prednisoLONE ACETATE 1% OPHTH 1 drops LEFT EYE TID 07/15/20 08/10/20 History [Pred Forte 1%] Ketorolac [Toradol] 10 mg PO Q6HR PRN 08/10/20 08/11/20 History Insulin Aspart [NovoLOG Flexpen] 10 units SQ AC-TID #0 08/13/20 08/11/20 Rx Furosemide [Lasix] 20 mg PO DAILY #1 tab 08/14/20 Rx Vancomycin 1,500 mg IVPB Q24HR #28 vial 08/14/20 Rx metroNIDAZOLE [Flagyl] 500 mg PO TID #84 tab 08/14/20 Rx Allergies Allergy/AdvReac Type Severity Reaction Status Date / Time nickel Allergy Rash/Hives Verified 08/29/20 10:47 Physical Exam Vitals: Vital Signs Temp Pulse Resp BP Pulse Ox 08/29/20 11:10 121/56 08/29/20 10:45 97.6 F 88 18 97/56 95 Intake and Output 08/28/20 08/29/20 08/29/20 22:59 06:59 14:59 Other: Weight 88.451 kg Results 08/29/20 10:51 08/29/20 10:51 CBC 08/29/20 Range/Units 10:51 WBC 8.2 (3.8-10.6) k/uL RBC 3.62 L (3.80-5.40) m/uL Hgb 11.6 (11.4-16.0) gm/dL Hct 33.5 L (34.0-46.0) % Plt Count 239 (150-450) k/uL Intake and Output 08/28/20 08/29/20 08/29/20 22:59 06:59 14:59 Other: Weight 88.451 kg Patient Weight 08/30/20 06:59 Weight 88.451 kg 08/29/20 10:51
[2020-08-29 11:38] LABS: INR 0.9 (<1.2); Prothrombin Time 9.7 sec (9.0-12.0)
[2020-08-29 11:41] LABS: Partial Thromboplastin Time 19.9 sec (22.0-30.0)
[2020-08-29] MEDS ORDERED: BIVALIRUDIN BOLUS 250 MG/50 ML IV ONE (11:57)
[2020-08-29] MEDS ORDERED: BIVALIRUDIN 250 MG in SODIUM CHLORIDE 0.9% 50 ML IV ONE (11:57)
[2020-08-29] MEDS ORDERED: niCARdipine 25 MG/10 ML VIAL ONE (11:58)
[2020-08-29] MEDS ORDERED: TICAGRELOR 90 MG TAB ONE (12:14)
[2020-08-29] MEDS ORDERED: TICAGRELOR 90 MG TAB PO ONE (12:16)
[2020-08-29] MEDS ORDERED: NITROGLYCERIN 1000MCG/10ML SYRINGE INTRACORON ONE (12:17)
[2020-08-29] MEDS ORDERED: niCARdipine Syringe (1,000 mcg/10 mL) INTRACORON ONE (12:17)
[2020-08-29] MEDS ORDERED: BUDESONIDE 1 MG/2 ML NEBU INHALATION PRN (12:41)
[2020-08-29] MEDS ORDERED: IPRATROPIUM-ALBUTEROL 3 ML NEB INHALATION PRN (12:41)
[2020-08-29] MEDS ORDERED: CYCLOBENZAPRINE 10 MG TAB PO PRN (12:41)
--- OUTSIDE RECORDS SUMMARY | 2020-08-29 12:43 | XMS REPORT | Referral Summary ---
:1950 Author Name Osoriot Address [address] [facility]. Unavailable [place] [id number] Care Team Providers Name Role Phone Colt Unavailable Unavailable Wesley Unavailable Unavailable Randall Unavailable Unavailable Jarocho Unavailable Unavailable Allergies, Adverse Reactions and Alerts Substance Reaction Reaction Severity Status No Known Allergies Unspecified Active Medications Medication Directions Start Date Status pregabalin 75 mg capsule capsule oral 1 daily at hs Unspecified active simvastatin 20 mg tablet tablet oral 1 AT HS Unspecified act luanne losartan 50 mg tablet tablet oral 1 DAILY Unspecified active methotrexate sodium 25 mg/mL solution injection WEEKLY ON Unspec ified active injection solution FRIDAY Orencia 125 mg/mL subcutaneous syringe subcutaneous WEEKLY ON Un specified active syringe FRIDAY metoprolol succinate ER 100 mg capsule,sprinkle,ER 24hr oral Uns pecified active capsule sprinkle, ext. release 24 hr 1 daily amlodipine 10 mg tablet tablet oral 1 DAILY Unspecified acti ve methylprednisolone 4 mg tablet tablet oral 1 DAILY Unspecified active Novolog Flexpen U-100 Insulin aspart insulin pen subcutaneous TO Unspecified active 100 unit/mL (3 mL) subcutaneous SCALE 3 TIMES DAILY tramadol 50 mg tablet tablet oral 1TID FOR PAIN Unspecified active NEEDED citalopram 40 mg tablet tablet oral 1 DAILY Unspecified acti ve Nitrostat 0.4 mg sublingual tablet tablet, sublingual sublingual Unspecified active as needed EVERY 15 MINS X 3 FOR CHEST PAIN lidocaine HCl 4 % topical gel gel topical 05/12/2020 ac tive lidocaine HCl 4 % topical gel gel topical 05/12/2020 ac tive Problems Problem Onset Date Status L97.522 - Non-pressure chronic ulcer of other part of left f oot 05/12/2020 active with fat layer exposed E11.42 - Type 2 diabetes mellitus with diabetic polyneuropat hy 05/12/2020 active I96 - Gangrene, not elsewhere classified 05/12/2020 active J44.9 - Chronic obstructive pulmonary disease, unspecified active M05.9 - Rheumatoid arthritis with rheumatoid factor, unspeci fied 05/12/2020 active J45.20 - Mild intermittent asthma, uncomplicated 05/12/2020 active I73.9 - Peripheral vascular disease, unspecified 05/12/2020 active Encounters Date Location 05/12/2020 12:00:00 AM Félix Hernandez [facility] Encounter Diagnosis: L97.522 - Non-pressure chronic ulcer of other part of left foot with fat layer exposed Encounter Diagnosis: E11.42 - Type 2 diabetes mellitus with diabetic polyneuropathy Encounter Diagnosis: I96 - Gangrene, not elsewhere classified Encounter Diagnosis: J44.9 - Chronic obstructive pulmonary disease, unspecified Encounter Diagnosis: M05.9 - Rheumatoid arthritis with rheumatoid factor, unspecified Encounter Diagnosis: J45.20 - Mild intermittent asthma, uncomplicated Encounter Diagnosis: I73.9 - Peripheral vascular disease, unspecified Vital signs Vital Value Unit Height 65 [in_i] Weight Measured 205 [lb_av] BP Systolic 133 mm[Hg] BP Diastolic 74 mm[Hg] BMI (Body Mass Index) 34.1 Unspecified Weight Measured 93.18 kg Body Temperature 98.1 [degF] Body Temperature 36.72 Lauryn O2 % BldC Oximetry Unspecified Unspecified Heart Rate 92 /min Respiratory Rate 18 /min Inhaled O2 concentration Unspecified Unspecified Immunizations Name Date Status Immunization information has not been included or does not e xist. Procedures Procedure Date Status Debridement; sub-Q tissue (includes epidermis and dermis, if 08/28/2020 Completed performed), first 20 sqcm or less Social History Smoking Status: Former smoker. Notes: QUIT 40 YEARS AGO Goals Description Goal: Barotrauma will be prevented cristofer galvan HBO2 Goal: Patient and/or family will be able to state/discuss factors appropriate to the management of their disease process amna newman treatment Goal: Patient will tolerate the hyperbar ic oxygen therapy treatment Goal: Patient will tolerate the internal climate of the chamber Goal: Patient/caregiver will verbalize u nderstanding of HBO goals, rationale, procedures and potential hazards Goal: Signs and symptoms of pulmonary ox ygen toxicity will be recognized and promptly addressed Goal: Signs and symptoms of seizure will be recognized and promptly addressed ; seizing patients will suffer no harm Goal: Patient will not experience any in jury related to falls Goal: Patient/caregiver will verbalize u nderstanding of skin care regimen Goal: Patient/caregiver will verbalize/d emonstrate measures taken to prevent injury and/or falls Goal: Patient/caregiver agrees to and ve rbalizes understanding of need to use nutritional supplements and/or vitamins as prescribed Goal: Patient/caregiver verbalizes under standing of need to maintain therapeutic glucose control per primary care physici an Goal: Patient/caregiver will maintain th erapeutic glucose control Goal: Patient will verbalize adequate pa in control and receive pain control interventions during procedures as neede d Goal: Patient/caregiver will verbalize a dequate pain control between visits Goal: Patient/caregiver will verbalize c omfort level met Goal: Patient will have a decrease in wo und volume by X% from date: (specify in notes) Goal: Patient/caregiver will verbalize u nderstanding of skin care regimen Goal: Ulcer/skin breakdown will have a v olume reduction of 30% by week 4 Goal: Ulcer/skin breakdown will have a v olume reduction of 50% by week 8 Goal: Ulcer/skin breakdown will have a v olume reduction of 80% by week 12 Goal: Ulcer/skin breakdown will heal wit hin 14 weeks Health Concerns Description Problem: HBO Problem: Abuse / Safety / Falls / Self C are Management Problem: Nutrition Problem: Pain, Acute or Chronic Problem: Wound/Skin Impairment Functional Status Description Date Ambulatory Status - Walker (Active) 08/28/2020 Assessment and Plan Description Services and Therapies: TcPO2, normobari c. Notes: July AT 2:30 PM. Radiology: X-ray, other. Notes: X-rays 3 views left foot for osteomyelitis. Laboratory: CBC W Auto Differential pane l. Laboratory: Comprehensive metabolic pane l=CMS. Laboratory: Prealbumin. Services and Therapies: Ankle Brachial I ndex (JAKE). Notes: To be performed in Dr. Gregory's office. Services and Therapies: Segmental Pressu res with Toe. Notes: To be performed By Dr. Gregory. Services and Therapies: Toe pressures (T BI). Notes: To be performed By Dr. Gregory. Consults: Home Health Services. Plan of Treatment: Patient referred to [facility] care Plan of Treatment: Nutrition-profile lab s obtained as ordered Plan of Treatment: Education provided on Nutrition Plan of Treatment: Administer pain contr ol measures as ordered Assessment: 05/12/2020 patient presents wound care clinic for referral primary care doctor for treatment of diabetic gangren ous wounds of the left foot. Developed spontaneously secondary to blunt trauma and pressure. States several weeks' duration. Patient has been treated with topical antibiotics prescribed by her primary care doctor has admitted to not wearing shoes in the house patient has several comorbidities peripheral vascula r disease peripheral arterial disease coronary artery disease and COPD asthma diabetes2 and rheumatoid [id number]/05/2021 wound is stable patient has been complia nt with care no complaints she was able to obtain the Santyl /12/2021 and voices no [id number]/19/2021 patient has been compliant with care patient states she's been elevating the leg. 06/05/2020 HERE TODAY FOR VASCULAR CONSULT. UNABLE TO PALPATE FEMORAL PULSES. WILL LOOK AT RECORDS IN OFFICE AND THEN SCHEDULE FOR ANGIOGRAM. WILL CONTACT PATIENT WITH RECOMMENDATION AND WILL SEE HER BACK IN THE WOUND CLINIC ON FRIDAY. 07/10/2020 LEFT GREAT TOE WAS AMPUTATED, PATIENT WA S IN THE OFFICE FOR FOLLOW UP AND REFERRED TO WOUND CENTER DUE TO DEHISENCE OF WOUND, . PARTIAL SUTURE REMOVAL TODAY, CLEANED UP WOUND, DEBRIDEMENT. USE ABSORPTIVE AG, R ETURN IN 1 WEEK, WORK UP FOR HBOT. PATIENT IS IN AGREEMENT.. 07/17/2020 PATIENT P RESENTS TODAY WITH PAIN IN HER LEFT UPPER THIGH PRESENT FOR 4 DAYS, WENT TO ER ON FRIDAY THEY X-RAYED HER HIP WHICH WAS NEGATIVE FOR FRACTURE. RX WAS ORDERED BU T PATIENT HAS NOT PICKED IT UP YET. PATIENT WILL OBTAIN RX AND START AND LET ME KNOW IF NO IMPROVEMENT. CONTINUE WITH LOCAL WOUND CARE AND SEE HER BACK IN 1 W [place]. 07/24/2020 CONTINUE WITH ABSORPTIVE AG, AWAITING AUTHORIZATION FOR HBOT, RETURN IN 1 WEEK. HBO H&P 07/24/2020 PATIENT IS A TYPE 2 DIABETIC WITH A PATEL GRADE 4 DIABETIC FOOT ULCER , LEFT GREAT TOE PRESENT SINCE 05-12-2020. INITIAL WOUND MEASUREMENTS ON 05-12-2020 1.2 CM X 2.5 CMX0.1 CM, MOST RECENT MEASUREMENTS ON 07/25/19 21 2.7X1X0.5CM. SHE HAS BEEN RECEIVING STANDARD WOUND CARE SINCE 05-12-2020 WITH NO MEASURABLE SIGNS OF HEALING, STANDARD WOUND CARE CONSISTING OF DEBRIDEMENTS, U SE OF ENZAMATIC DEBRIDER, ALGINATES AND COLLAGEN. . VENOUS DOPPLER NEGATIVE FO R DVT. ARTERIAL DOPPLER JAKE ON RIGHT 0.90 RIGHT 0.71. ANGIOGRAM DONE ON 06-12-2020 I MPRESSION LEFT SUPERFICIAL FEMORAL ARTERY OCCLUSION PROXIMALLY, POSTERIOR TIBIAL N OT VISUALIZED PROXIMALLY, DISTALLY RECONSTITUTES, BUT VERY SMALL CALIBER. P ERONEAL ARTERY HAS SOME ATHEROSCLEROTIC DISEASE. NUTRITIONAL STATUS ADEQUATE PRE ALBUMIN 21, HGA1C 9, MEDICATION AND INSULIN WERE ADJUSTED PER PCP. PATIENT IS OFFLO ADING WITH A DARCO WEDGE SHOE. . WOUND CULTURE DONE CURRENTLY ON VANCOMYCIN. IN FECTION BEING TREATED BY INFECTIOUS DISEASE PHYSICIAN. PATIENT WILL UNDERGO 1 HBOT DAILY FOR 40 TREATMENTS. FRIDAY THROUGH FRIDAY AT 2ATA WITH NO AIR BREAKS. HAVE DISCUSSED RISKS AND BENEFITS AND COMPLICATIONS OF SEIZURES RELATAED TO OX YGEN TOXICITY, BAROTRAUMAS POSSIBLE PNEUMOTHORAX, VISION CHANGES , SOUND INJ URY TO EARS INVOLVED IN HBOT, WITH PATIENT. PATIENT WISHES TO PROCEDE WITH TREATMENT S. 07/31/2020 PATIENT HAS BEEN APPROVED FOR HBOT, WILL START TOMORROW. CONTINUE WIT H LOCAL WOUND CARE UTILIZING ABSORPTIVE SILVER. RETURN TO WOUND CLINIC IN 1 WEEK . 08/07/2020 WILL SCHEDULE PATIENT FOR EXISION OF EXPOSED BONE AND CONTACT HER WITH DATE, CONTINUE WOUND CARE AND HBOT, RETURN IN 1 WEEK 08/21/2020 wound impro ving since bone was removed, patient is responding to HBOT, CONTINUE WITH COLLAG EN AG AND SEE PATIENT BACK IN 1 WEEK 08/28/2020 PATIENT CONTINUES WITH HBO AND WOUND CARE, LATERAL FOOT WOUND HAS HEALED, TOE WOUND IS IMPROVING. DEBRIDE MENT DONE TODAY. RETURN IN 1 WEEK, CONTINUE WITH COLLAGEN SILVER Results Name Specimen Value Unit Ref. Range Date Lab Order: Complete Blood Count w/diff 05/12/2020 WBC 6 k/uL 05/12/2020 RBC 4.5 m/uL 05/12/2020 HGB 14.1 gm/dL 05/12/2020 HCT 42.1 % 05/12/2020 MCV 93.7 fL 05/12/2020 MCH 31.2 pg 05/12/2020 MCHC 33.3 g/dL 05/12/2020 RDW 13.1 % 05/12/2020 Platelet Count 255 k/uL 05/12/2020 Mean Platelet Volume 7.8 05/12 Neutrophils % (A) 42 % 05/12/19 21 Lymphocytes % (A) 46 % 05/12/19 21 Monocytes % (A) 6 % 05/12/2020 Eosinophils % (A) 3 % 05/12/19 21 Basophils % (A) 1 % 05/12/2020 Neutrophils # (A) 2.5 k/uL 05/12/19 21 Lymphocytes # (A) 2.7 k/uL 05/12/19 21 Monocytes # (A) 0.4 k/uL 05/12/2020 Eosinophils # (A) 0.2 k/uL 05/12/19 21 Basophils # (A) 0.1 k/uL 05/12/2020 Lab Order: Comprehensive Metabolic Panel 05/13/2020 Glucose 232 mg/dL 05/13/2020 Sodium 135 mmol/L 05/13/2020 Potassium 5.1 mmol/L 05/13/2020 Chloride 104 mmol/L 05/13/2020 Carbon Dioxide 24 mmol/L 05/13/2020 Anion Gap 7 mmol/L 05/13/2020 Blood Urea Nitrogen 24 mg/dL 2020 Creatinine 0.78 mg/dL 05/13/2020 Non- GFR(CKD) 77 05/13/2020 GFR (CKD) 89 05/13/2020 Calcium 9 mg/dL 05/13/2020 Total Protein 7 g/dL 05/13/2020 Albumin 3.9 g/dL 05/13/2020 Total Bilirubin 0.4 mg/dL 05/13/2020 AST 23 U/L 05/13/2020 ALT 18 U/L 05/13/2020 Alkaline Phosphatase 93 U/L 05/13 Lab Order: Prealbumin 04/16 Prealbumin 21 mg/dL 05/13/2020 Medical Equipment Implanted Area JANNETTE Assigning Author [email or web address] Medical Equipment information has not been included or does not exist. Reason for Referral transition of care
[2020-08-29] MEDS ORDERED: NITROGLYCERIN SL TABS 0.4 MG TAB SUBLINGUAL PRN (12:46)
[2020-08-29] MEDS ORDERED: ATROPINE SULFATE 0.1 MG/ML 10ML SYRINGE IV PRN (12:46)
[2020-08-29] MEDS ORDERED: MAG HYDROX/AL HYDROX/SIMETH 30 ML CUP PO PRN (12:46)
[2020-08-29] MEDS ORDERED: ZOLPIDEM 5 MG TAB PO PRN (12:46)
[2020-08-29] MEDS ORDERED: RX INFO: IV CONTRAST WAS GIVEN 1 EACH MISC MISCELLANE PRN (12:46)
[2020-08-29 12:55] LABS: Glucose,Whole Blood 282 mg/dL (75-99)
[2020-08-29] MEDS ORDERED: SODIUM CHLORIDE 0.9% 1,000 ML IV SCH (13:00)
[2020-08-29] MEDS: INSULIN ASPART (NovoLOG) 100 UNIT/ML VIAL SQ SCH ×3 (14:33→20:58)
[2020-08-29] MEDS ORDERED: HYDROmorphone 1 MG/ML 1 ML SYRINGE IVP STA (15:11)
[2020-08-29] MEDS: VANCOMYCIN 1,500 MG in SODIUM CHLORIDE 0.9% 250 ML IVPB SCH (15:13)
--- NOTE | 2020-08-29 15:43 | CC ---
CARDIAC CATHETERIZATION REPORT INDICATION: Acute inferior wall myocardial infarction. This is a 70-year-old lady with history of coronary artery disease, status post bypass surgery. Patient apparently had a 4-vessel bypass in 2015 at [facility]. I do not have the surgical report at the time. PROCEDURE NOTE: After obtaining informed consent, left heart catheterization and coronary angiogram were performed via the right femoral artery using standard Dontae catheter. Venous graft to the right coronary artery was engaged using a multi-purpose catheter. Right coronary artery was subselectively engaged after finding that the venous graft to the right is occluded. The cushion gum applicator is proceeding with angioplasty of the same and will get a BRIDGES angiogram subsequently. FINDINGS: 1. [place] coronaries. Left main coronary artery is a normal-sized vessel, divides into left anterior descending coronary artery and circumflex coronary artery. LAD appeared proximally occluded. Circumflex coronary artery shows moderate disease. Right coronary artery appears heavily calcified. We could not obtain any selective images, but with the subselective images there is moderate to severe diffuse disease. 2. Venous graft to the circumflex coronary artery appears patent and is free of disease. 3. Venous graft to the right coronary artery is acutely occluded. This is the vessel responsible for the myocardial infarction. CONCLUSIONS: [place] 3-vessel coronary artery disease with patent venous graft to the circumflex coronary artery. We could not document one of the venous grafts. The third venous graft was to the right coronary artery that is acutely occluded and the cushion gum applicator will proceed with angioplasty of the same will obtain BRIDGES injections at the end of the procedure. MMODL / IJN: [id number] /
--- NOTE | 2020-08-29 15:52 | PTCA ---
PERCUTANEOUSTRANS CORORONARY ANGIOGRAPHY DATE OF SERVICE: 08/29/2020 PERFORMING PHYSICIAN: Ervin Plata M.D. PROCEDURES PERFORMED: 1. Successful stenting of the SVG to RCA using a 3.5 x 38 and a 3.5 x 23 mm Xience JADE with excellent angiographic results and reduction of stenosis from 100% to 0%. 2. Aspiration thrombectomy using the Penumbra device. 3. BRIDGES to LAD angiogram. 4. Left heart catheterization. 5. Selective right common femoral artery angiogram. INDICATION: This is a 70-year-old female patient with coronary artery disease and prior coronary artery bypass grafting who presented to the hospital with chest discomfort and was diagnosed with acute inferior ST-elevation myocardial infarction. She underwent heart catheterization by Dr. Soto and that revealed occluded SVG to the RCA. Because of that, emergent PCI was advised. COMPLICATIONS: None. LEVEL OF SEDATION: Moderate, with sedation length of 41 minutes. PROCEDURE DESCRIPTION: Please refer to diagnostic heart catheterization that was performed by Dr. Soto. Anticoagulation was achieved with Angiomax with bolus and drip per protocol. Subsequently, I did engage the graft using multipurpose catheter. The graft was wired using a run-through wire. After that I did aspiration thrombectomy using a manual device, which was an [place] device, but that was insufficient. Subsequently I performed aspiration thrombectomy using the mechanical device. Subsequently I did balloon angioplasty using a 3.5 mm balloon before I deployed 2 drug- eluting stents. The first one was Xience 35 x 38 and the second one was Xience 35 x 23 mm. The following angiogram showed excellent angiographic results and the procedure was completed without any complication. BRIDGES TO LAD ANGIOGRAM: The BRIDGES to LAD angiogram was performed in the [place] projection. The BRIDGES is patent with moderate disease involving the LAD distal to BRIDGES anastomosis. POST-PROCEDURE MANAGEMENT: 1. Dual anti-platelet therapy. 2. Aggressive cholesterol control. 3. Follow up with the patient. MMODL / IJN: [id number] /
[2020-08-29 16:23] LABS: Glucose,Whole Blood 218 mg/dL (75-99)
[2020-08-29] MEDS ORDERED: INSULIN ASPART (NovoLOG) 100 UNIT/ML VIAL SQ SCH (17:30)
[2020-08-29] MEDS: metroNIDAZOLE 500 MG TAB PO SCH ×2 (18:18→22:36)
[2020-08-29 20:52] LABS: Glucose,Whole Blood 158 mg/dL (75-99)
[2020-08-29] MEDS: ATORVASTATIN 80 MG TAB PO SCH (20:58)
[2020-08-29] MEDS: INSULIN DETEMIR (LEVEMIR) 100 UNIT/ML SYR SQ SCH (20:58)
[2020-08-29] MEDS: MONTELUKAST 10 MG TAB PO SCH (20:58)
[2020-08-29] MEDS: amLODIPine 10 MG TAB PO SCH (20:58)
[2020-08-29] MEDS: TICAGRELOR 90 MG TAB PO SCH (20:59)
[2020-08-29] MEDS ORDERED: ATORVASTATIN 20 MG TAB PO SCH (21:00)
[2020-08-29] MEDS: SULFAMETHOX-TMP 800-160MG 1 EACH TAB PO SCH (22:36)
[2020-08-30] MEDS ORDERED: ONDANSETRON 4 MG/2 ML VIAL ONE (03:55)
[2020-08-30 04:13] LABS: Basophils % (A) 0 %; Eosinophils # (A) 0.1 k/uL (0-0.7); Eosinophils % (A) 1 %; HCT 29.4 % (34.0-46.0); HGB 10.3 gm/dL (11.4-16.0); Lymphocytes # (A) 1.4 k/uL (1.0-4.8); Lymphocytes % (A) 17 %; MCH 32.9 pg (25.0-35.0); MCHC 34.9 g/dL (31.0-37.0); MCV 94.2 fL (80.0-100.0); Mean Platelet Volume 7.1; Monocytes # (A) 0.6 k/uL (0-1.0); Monocytes % (A) 8 %; Neutrophils # (A) 5.9 k/uL (1.3-7.7); Neutrophils % (A) 72 %; Platelet Count 212 k/uL (150-450); RBC 3.12 m/uL (3.80-5.40); RDW 13.8 % (11.5-15.5); WBC 8.3 k/uL (3.8-10.6)
[2020-08-30 04:31] LABS: Potassium 4.4 mmol/L (3.5-5.1)
[2020-08-30 04:32] LABS: Calcium 8.5 mg/dL (8.4-10.2)
[2020-08-30 06:30] LABS: Glucose,Whole Blood 238 mg/dL (75-99)
[2020-08-30] MEDS: INSULIN ASPART (NovoLOG) 100 UNIT/ML VIAL SQ SCH ×5 (07:11→21:05)
[2020-08-30] MEDS: INSULIN DETEMIR (LEVEMIR) 100 UNIT/ML SYR SQ SCH ×2 (07:12→21:13)
--- NOTE | 2020-08-30 07:13 | ECHOF ---
Referral Reason:LV function, stemi MEASUREMENTS -------- HEIGHT: 165.1 cm WEIGHT: 88.5 kg BP: 121/56 RVIDd: 2.0 cm (< 3.3) IVSd: 1.5 cm (0.6 - 1.1) LVIDd: 5.0 cm (3.9 - 5.3) LVPWd: 1.4 cm (0.6 - 1.1) IVSs: 1.8 cm LVIDs: 4.1 cm LVPWs: 1.4 cm LA Diam: 3.0 cm (2.7 - 3.8) Ao Diam: 2.8 cm (2.0 - 3.7) MV EXCURSION: 10.065 mm (> 18.000) MV EF SLOPE: 21 mm/s (70 - 150) EPSS: 0.9 cm MV E Paresh: 1.32 m/s MV DecT: 217 ms MV A Paresh: 1.16 m/s MV E/A Ratio: 1.13 FINDINGS -------- Sinus rhythm. This was a technically difficult study with suboptimal views. The left ventricular size is normal. There is moderate concentric left ventricular hypertrophy. O verall left ventricular systolic function is mild-moderately impaired with, an EF between 40 - 45 %. Basal anteroseptal LV wall motion is hypokinetic. Mid anteroseptal LV wall motion is hypokinetic . Apical septum LV wall motion is hypokinetic. The right ventricle is normal in size. The left atrium is normal in size. The right atrium is normal in size. 5.0mg of Lumason was utilized for enhancement of images Interatrial and interventricular septum intact. There is mild aortic valve sclerosis. The mitral valve leaflets are mildly thickened. Mild mitral annular calcification present. Mild m itral regurgitation is present. The tricuspid valve appears structurally normal. The pulmonic valve was not well visualized. The aortic root size is normal. Normal inferior vena cava with normal inspiratory collapse consistent with estimated right atrial pre ssure of 5 mmHg. There is no pericardial effusion. CONCLUSIONS -------- 1. This was a technically difficult study with suboptimal views. 2. The left ventricular size is normal. 3. There is moderate concentric left ventricular hypertrophy. 4. Mid anteroseptal LV wall motion is hypokinetic. 5. Apical septum LV wall motion is hypokinetic. 6. 5.0mg of Lumason was utilized for enhancement of images 7. There is mild aortic valve sclerosis. 8. The mitral valve leaflets are mildly thickened. 9. Mild mitral annular calcification present. 10. Mild mitral regurgitation is present. 11. There is no pericardial effusion. CROWD CONTROLLER: Susana Ortiz RDCS
[2020-08-30] MEDS: TICAGRELOR 90 MG TAB PO SCH ×2 (08:40→21:12)
[2020-08-30] MEDS: ASPIRIN 81 MG PO SCH (08:40)
[2020-08-30] MEDS: FUROSEMIDE 20 MG TAB PO SCH (08:40)
[2020-08-30] MEDS: LOSARTAN 50 MG TAB PO SCH (08:40)
[2020-08-30] MEDS: DULoxetine HCL 60 MG CAPSULE.DR PO SCH (08:40)
[2020-08-30] MEDS: POTASSIUM CHLORIDE ER 20 MEQ TAB.ER PO SCH (08:40)
[2020-08-30] MEDS: METOPROLOL SUCCINATE (ER) 50 MG TAB.ER.24H PO SCH (08:41)
[2020-08-30] MEDS: SULFAMETHOX-TMP 800-160MG 1 EACH TAB PO SCH ×2 (08:41→21:13)
[2020-08-30] MEDS: metroNIDAZOLE 500 MG TAB PO SCH ×3 (08:41→21:12)
[2020-08-30] MEDS ORDERED: ABATACEPT 125 MG/ML SQ SCH (09:00)
[2020-08-30] MEDS ORDERED: ASPIRIN 81 MG PO SCH (09:00)
[2020-08-30] MEDS ORDERED: VANCOMYCIN 1,000 MG VIAL IVPB SCH (09:00)
--- NOTE | 2020-08-30 10:55 | P.PN ---
Subjective Progress Note Date: 08/30/20 HISTORY OF PRESENT ILLNESS: This is a 70-year-old female with a past medical history significant for coronary artery disease with previous CABG 4, hypertension, hyperlipidemia, congestive heart failure, peripheral vascular disease, and diabetes mellitus. Patient follows with a Dr. Brown out of [place]. We have been asked to see the patient in consultation for chest pain/stemi. Patient presented to the ER with chest pain. EKG was completed revealing ST elevation in inferior leads and STEMI alert was activated. Patient examined at the bedside in the emergency room. Patient states she began having chest pain yesterday that has progressively gotten worse. She states the pain is in the middle of her chest and in between her shoulder blades. She also reports shortness of breaht. She denies nausea or vomiting. EKG reveals sinus mechanism with ST elevation in inferior leads. ST depression in lateral leads. Chest xray not completed at the time of dictation Laboratory data: not available at time of dictation Current home cardiac medications include Norvasc 10 mg at night, Zocor 40 mg at night, metoprolol succinate 50 mg in the morning, losartan 50 mg daily, Lasix 20 mg daily, aspirin 81 mg daily 08/30/2020 Patient examined this morning at the bedside. She remains in the ICU. Patient underwent cardiac cath yesterday with PCI of the SVG to RCA. Patient denies chest pain or pressure. Denies shortness of breath. She reports nausea this morning and had emesis overnight. Blood pressure 117/63. Telemetry reveals sinus mechanism in the 70-80s. Right groin cath site clean dry with no hematoma noted. Echocardiogram completed revealed ejection fraction 40-45%, mid anteroseptal LV wall hypokinesis, apical septal wall hypokinesis, and mild mitral regurgitation. PHYSICAL EXAM: VITAL SIGNS: Reviewed. GENERAL: Well-developed in no acute distress. HEENT: Head is normocephalic. Pupils are equal, round. Sclerae anicteric. Mucous membranes of the mouth are moist. Neck supple. No JVD or thyromegaly LUNGS: Respirations even and unlabored. Lungs essentially clear to auscultation bilaterally. HEART: Regular rate and rhythm. S1 and S2 heard. EXTREMITIES: Normal range of motion. No clubbing or cyanosis. Peripheral pulses intact. No lower extremity edema. Right groin cath site clean dry with no hematoma noted. ASSESSMENT: Acute inferior STEMI, s/p PCI of SVG to RCA Coronary artery disease with previous CABG x 2014 at [place] Peripheral vascular disease with previous right lower extremity stenting per patient Chronic systolic congestive heart failure, EF 40% Hypertension Hyperlipidemia Diabetes Mellitus COPD PLAN: Continue current cardiac medications: Amlodipine, aspirin, Lipitor, Lasix, losartan, metoprolol, and Brilinta Case management consulted to verify coverage of Brilinta Patient may transfer to Further recommendations pending patient course Nurse practitioner note has been reviewed by physician. Signing provider agrees with the documented findings, assessment, and plan of care. Objective - Vital Signs Vital signs: Vital Signs Temp 98.2 F 08/30/20 04:00 Pulse 70 08/30/20 10:00 Resp 20 08/30/20 10:00 BP 117/63 08/30/20 10:00 Pulse Ox 93 L 08/30/20 10:00 Intake & Output 08/29/20 08/30/20 08/30/20 18:59 06:59 18:59 Intake Total 700 850 240 Output Total 650 0 Balance 700 200 240 Weight 88.451 kg 96.1 kg Intake: IV 100 150 Sodium Chloride 0.9% 1, 150 000 ml @ 75 mls/hr IV . [id number] JAY Rx#:[id number] Intake, IV Titration 500 Amount Sodium Chloride 0.9% 1, 500 000 ml @ 75 mls/hr IV . [id number] JAY Rx#:[id number] Oral 100 700 240 Output: Urine 650 0 Other: Voiding Method Bedside Commode Bedside Commode # Bowel Movements 1 - Labs CBC & Chem 7: 08/30/20 03:45 08/30/20 03:45 Labs: Abnormal Lab Results - Last 24 Hours (Table) 08/29/20 08/29/20 08/29/20 Range/Units 10:51 10:51 10:51 RBC 3.62 L (3.80-5.40) m/uL Hgb (11.4-16.0) gm/dL Hct 33.5 L (34.0-46.0) % APTT 19.9 L (22.0-30.0) sec Sodium (137-145) mmol/L BUN 33 H (7-17) mg/dL Creatinine 1.51 H (0.52-1.04) mg/dL Glucose 301 H (74-99) mg/dL POC Glucose (mg/dL) (75-99) mg/dL AST 206 H (14-36) U/L Troponin I (0.000-0.034) ng/mL Total Protein 5.8 L (6.3-8.2) g/dL Albumin 3.2 L (3.5-5.0) g/dL 08/29/20 08/29/20 08/29/20 Range/Units 10:51 12:53 16:22 RBC (3.80-5.40) m/uL Hgb (11.4-16.0) gm/dL Hct (34.0-46.0) % APTT (22.0-30.0) sec Sodium (137-145) mmol/L BUN (7-17) mg/dL Creatinine (0.52-1.04) mg/dL Glucose (74-99) mg/dL POC Glucose (mg/dL) 282 H 218 H (75-99) mg/dL AST (14-36) U/L Troponin I 34.200 H* (0.000-0.034) ng/mL Total Protein (6.3-8.2) g/dL Albumin (3.5-5.0) g/dL 08/29/20 08/30/20 08/30/20 Range/Units 20:50 03:45 03:45 RBC 3.12 L (3.80-5.40) m/uL Hgb 10.3 L (11.4-16.0) gm/dL Hct 29.4 L (34.0-46.0) % APTT (22.0-30.0) sec Sodium 135 L (137-145) mmol/L BUN 30 H (7-17) mg/dL Creatinine 1.43 H (0.52-1.04) mg/dL Glucose 170 H (74-99) mg/dL POC Glucose (mg/dL) 158 H (75-99) mg/dL AST (14-36) U/L Troponin I (0.000-0.034) ng/mL Total Protein (6.3-8.2) g/dL Albumin (3.5-5.0) g/dL 05/19/21 Range/Units 06:29 RBC (3.80-5.40) m/uL Hgb (11.4-16.0) gm/dL Hct (34.0-46.0) % APTT (22.0-30.0) sec Sodium (137-145) mmol/L BUN (7-17) mg/dL Creatinine (0.52-1.04) mg/dL Glucose (74-99) mg/dL POC Glucose (mg/dL) 238 H (75-99) mg/dL AST (14-36) U/L Troponin I (0.000-0.034) ng/mL Total Protein (6.3-8.2) g/dL Albumin (3.5-5.0) g/dL
[2020-08-30] MEDS ORDERED: INSULIN ASPART (NovoLOG) 100 UNIT/ML VIAL SQ SCH (12:30)
--- NOTE | 2020-08-30 12:45 | CC ---
CARDIAC CATHETERIZATION REPORT ADDENDUM TO THE CARDIAC CATHETERIZATION REPORT Under hemodynamics, patient's left ventricular end-diastolic pressure was elevated at 18 to 20 mm. BRIDGES to LAD was injected at the end of the angioplasty. It was patent and free of significant disease. ALFIE / FRANCON: [id number] /
--- NOTE | 2020-08-30 12:53 | P.HPIM ---
History of Present Illness H&P Date: 08/30/20 HISTORY OF PRESENT ILLNESS This is a 70-year-old female patient of Dr. Sanderson with past medical history of diabetes mellitus type 2, hypertension, hyperlipidemia, CVA in 2013 with no residuals, coronary artery disease status post 4 vessel CABG, bilateral carotid endarterectomies, mild intermittent asthma, osteomyelitis status post right great toe amputation 2014 and left toe amputation in June 2020 with revision on August [address] Gregory and patient was discharged home on August 12 with plan for IV vancomycin and oral Flagyl for 4 weeks, remote history of tobacco use area patient came in the hospital due to chest pain that started in the midsternal area and radiated to her left shoulder blade. She also had nausea which has continued. She denies having any epigastric pain. No blood in her stools. She came into the hospital for evaluation and was diagnosed with ST elevated myocardial infarction and was taken directly to the cardiac director of cardiac cath lab by Dr. Soto. Heart catheterization revealed occluded SVG to the RCA. Patient subsequently underwent PTCA with successful stenting of the SVG to RCA which was done by Dr. Plata. She then went to the intensive care unit where she is seen this morning. She states the chest pain is completely gone. She continues to have nausea. She states her interior mechanic is Dr. walsh at [place]. 90% on 2 L nasal cannula. Initial hemoglobin 0.6, white count 8.2, platelet count 239. INR 0.9. Electrolytes normal. BUN 33 and creatinine 1.51. Blood sugar initially 301. Blood sugar is now 170. Magnesium 1.9, total bilirubin 0.4, AST 206, ALT 25, alkaline phosphatase 30. Initial troponin 34.2. ProBNP 4600. C oronavirus PCR not detected. Echocardiogram reveals EF of 40-45%, moderate concentric left hypertrophy, mild aortic valve sclerosis, mild mitral regurgitation. REVIEW OF SYSTEMS Constitutional: No fever, no chills, no night sweats. No weight change. No weakness, fatigue or lethargy. No daytime sleepiness. EENT: No headache. No blurred vision or double vision, no loss of vision. No loss of Hearing, no ringing in the ears, no dizziness. No nasal drainage or congestion. No epistaxis. No sore throat. Lungs: No shortness of breath, cough, no sputum production. No wheezing. Cardiovascular: No chest pain, no lower extremity edema. No palpitations. No paroxysmal nocturnal dyspnea. No orthopnea. No lightheadedness or dizziness. No syncopal episodes. Abdominal: No abdominal pain. No nausea, vomiting. No diarrhea. No constipation. No bloody or tarry stools.. No loss of appetite. Genitourinary: No dysuria, increased frequency, urgency. No urinary retention. Musculoskeletal: No myalgias. No muscle weakness, no gait dysfunction, no frequent falls. No back pain. No neck pain. Integumentary: No wounds, no lesions. No rash or pruritus. No unusual bruising. No change in hair or nails. Neurologic: No aphasia. No facial droop. No change in mentation. No head injury. No headache. No paralysis. No paresthesia. Psychiatric: No depression. No anxiety. No mood swings. Endocrine: No abnormal blood sugars. No weight change. No excessive sweating or thirst. No cold intolerance. SOCIAL HISTORY Patient was a smoker starting at age 17 1 pack per day and quit in 1981. No alcohol abuse, no illicit drug use. Patient lives at home and uses a walker for ambulation. FAMILY HISTORY Mother is at age 90 from coronary artery disease. Father at age 86 from coronary artery disease and diabetes. Patient has one sister with lung cancer. Patient has 2 brothers and one is healthy and one has history of lung cancer. Patient has 3 daughters and one has MS, one with a female cancer and one is healthy with no major medical problems. PHYSICAL EXAMINATION Gen: This is a 70-year-old obese female. She is resting in bed and appears to be comfortable and in no acute distress. HEENT: Head is atraumatic, normocephalic. Pupils equal, round. Sclerae is anicteric. NECK: Supple. No JVD. No lymphadenopathy. No thyromegaly. LUNGS: Clear to auscultation. No wheezes or rhonchi. No intercostal retractions. HEART: Regular rate and rhythm. No murmur. ABDOMEN: Soft. Bowel sounds are present. No masses. No tenderness. EXTREMITIES: No pedal edema. No calf tenderness. Right great toe amputation, left toe amputation NEUROLOGICAL: Patient is awake, alert and oriented x3. Cranial nerves 2 through 12 are grossly intact. ASSESSMENT AND PLAN 1. Acute inferior ST elevated myocardial infarction status post heart catheterization and stenting of the SVG to RCA. Patient is post procedure day #1. Patient is currently maintained in the intensive care unit. Continue aspirin 81 mg daily, Toprol-XL 50 mg daily, Brilinta 90 mg twice daily, atorvastatin 80 mg at bedtime. 2. Diabetic and peripheral vascular disease foot ulcer with osteomyelitis status post stump revision. Patient is continued on IV vancomycin and oral Flag yl to complete a full 4 week course which will be completed on September 09. 3. Diabetes mellitus type 2, insulin requiring, uncontrolled with hyperglycemia. Continue Levemir 15 units twice daily and NovoLog scale and NovoLog scheduled will be resumed at 5 units with each meal. 4. Peripheral vascular disease with previous stenting of the right lower extremity. Patient regularly follows with Dr. Gregory. 5. Coronary artery disease with previous history of 4 vessel CABG. Patient's interior mechanic is Dr. Brown at [facility]. 6. Chronic systolic heart failure, stable. Continue Lasix 20 mg daily, losartan and Toprol-XL. 7. COPD. Continue DuoNeb treatment, Pulmicort, Singulair. 8. History of CVA, stable. 9. Hyperlipidemia. Continue atorvastatin 80 mg at bedtime 10. Hypertension. Continue losartan and 50 mg daily. 11. Recurrent depression. Continue Cymbalta 60 mg daily 12. COVID-19 testing negative. Patient has been hospitalized during a pandemic. Patient will be admitted to the hospital for a minimum of 2 night stay. DISCHARGE PLAN Home with [facility]. Impression and plan of care have been directed as dictated by the signing ph ysician. Emily Higginbotham nurse practitioner acting as scribe for signing physician. Past Medical History Past Medical History: Asthma, Coronary Artery Disease (CAD), Heart Failure, COPD, CVA/TIA, Diabetes Mellitus, Hyperlipidemia, Hypertension, Pneumonia, Rheu matoid Arthritis (RA) Additional Past Medical History / Comment(s): left GREAT TOE WOUND, with current dressing, partial amputation on 06/28/20. going to hyperbaric chamber 5 days a week, PICC line right arm Last Myocardial Infarction Date:: 2014 History of Any Multi-Drug Resistant Organisms: None Reported Past Surgical History: Adenoidectomy, Appendectomy, Coronary Bypass/CABG, Heart Catheterization, Tonsillectomy, Tubal Ligation Additional Past Surgical History / Comment(s): Open heart on April 13 2015, cabg X4, bilateral carotid endarterectomies,. Right great toe amputation 2015. stent in right leg above knee, elke cataracts. left toe ambutation, 06/18/20 Past Anesthesia/Blood Transfusion Reactions: Previous Problems w/ Anesthesia Additional Past Anesthesia/Blood Transfusion Reaction / Comment(s): diff luis athing afterwards Past Psychological History: No Psychological Hx Reported Smoking Status: Former smoker Past Alcohol Use History: None Reported Past Drug Use History: None Reported - Past Family History Father Family Medical History: Coronary Artery Disease (CAD), CVA/TIA, Diabetes Mellitus Mother Additional Family Medical History / Comment(s): "spot on the lung" Medications and Allergies Home Medications Medication Instructions Recorded Confirmed Type Metoprolol Succinate [Toprol XL] 50 mg PO QAM 05/02/15 08/29/20 History Nitroglycerin Sl Tabs [Nitrostat] 0.4 mg SL Q5M PRN 05/02/15 08/29/20 History Aspirin 81 mg PO DAILY 04/15/17 08/29/20 History Simvastatin [Zocor] 40 mg PO HS 04/15/17 08/29/20 History amLODIPine [Norvasc] 10 mg PO HS 04/15/17 08/29/20 History Abatacept [Orencia] 125 mg SQ WE 05/07/19 08/29/20 History Albuterol Sulfate [Proair Hfa] 2 puff INHALATION RT-Q4H PRN 06/16/20 08/29/20 History Losartan [Cozaar] 50 mg PO QAM 06/16/20 08/29/20 History traMADol HCL 50 mg PO BID PRN 06/16/20 08/29/20 History Insulin Glargine,Hum.rec.anlog 15 unit SQ BID #0 06/26/20 08/29/20 Rx [Lantus Solostar] Budesonide [Pulmicort] 1 mg INHALATION RT-BID PRN 07/15/20 08/29/20 History Ipratropium-Albuterol Nebulize 3 ml INHALATION RT-QID PRN 07/15/20 08/29/20 History [Duoneb 0.5 mg-3 mg/3 ml Soln] Montelukast Sodium [Singulair] 10 mg PO HS 07/15/20 08/29/20 History Furosemide [Lasix] 20 mg PO DAILY #1 tab 08/14/20 08/29/20 Rx Vancomycin 1,500 mg IVPB Q24HR #28 vial 08/14/20 08/29/20 Rx metroNIDAZOLE [Flagyl] 500 mg PO TID #84 tab 08/14/20 08/29/20 Rx Cyclobenzaprine [Flexeril] 10 mg PO TID PRN 08/29/20 08/29/20 History DULoxetine HCL [Cymbalta] 60 mg PO DAILY 08/29/20 08/29/20 History Insulin Aspart [NovoLOG Flexpen] 10 units SQ AC-BID 08/29/20 08/29/20 History Insulin Aspart [NovoLOG Flexpen] 12 units SQ AC-LUNCH 08/29/20 08/29/20 History Potassium Chloride [Klor-Con 20] 20 meq PO DAILY 08/29/20 08/29/20 History Sulfamethoxazole/Trimethoprim 1 tab PO BID 08/29/20 08/29/20 History [Bactrim DS 800-160 mg] Ticagrelor [Brilinta] 90 mg PO BID #180 tab 08/30/20 Rx Allergies Allergy/AdvReac Type Severity Reaction Status Date / Time nickel Allergy Rash/Hives Verified 08/29/20 10:47 Physical Exam Vitals: Vital Signs Temp Pulse Pulse Resp BP BP Pulse Ox 08/30/20 10:00 70 20 117/63 93 L 08/30/20 09:22 90 L 08/30/20 09:00 83 18 82 L 08/30/20 08:00 91 14 124/56 08/30/20 07:00 85 9 L 119/56 90 L 08/30/20 06:00 86 23 137/63 91 L 08/30/20 05:00 89 22 135/68 93 L 08/30/20 04:00 98.2 F 100 20 115/45 91 L 08/30/20 03:00 84 16 114/62 91 L 08/30/20 02:00 87 18 129/57 92 L 08/30/20 01:00 87 22 140/92 91 L 08/30/20 00:00 98.0 F 95 16 137/64 92 L 08/29/20 23:00 83 26 H 138/62 94 L 08/29/20 22:00 82 19 130/59 95 08/29/20 21:00 80 19 120/68 91 L 08/29/20 20:08 95 08/29/20 20:00 98.2 F 78 18 111/58 94 L 08/29/20 19:00 81 16 111/58 93 L 08/29/20 18:00 77 17 111/58 92 L 08/29/20 17:00 67 10 L 111/58 93 L 08/29/20 16:30 98.2 F 75 15 111/58 94 L 08/29/20 16:00 65 16 100/54 96 08/29/20 15:50 68 18 91/53 97 08/29/20 15:23 82/42 08/29/20 15:18 70 18 109/65 99 08/29/20 14:50 68 16 115/59 98 08/29/20 13:50 70 18 122/60 100 08/29/20 12:50 78 16 113/55 96 08/29/20 11:10 121/56 08/29/20 10:45 97.6 F 88 18 97/56 95 Intake and Output 08/29/20 08/30/20 08/30/20 22:59 06:59 14:59 Intake Total 1150 300 Output Total 250 400 0 Balance 900 -100 0 Intake: IV 150 Sodium Chloride 0.9% 1, 150 000 ml @ 75 mls/hr IV . [id number] [facility] Rx#:[id number] Intake, IV Titration 500 Amount Sodium Chloride 0.9% 1, 500 000 ml @ 75 mls/hr IV . [id number] [facility] Rx#:[id number] Oral 500 300 Output: Urine 250 400 0 Other: Voiding Method Bedside Commode Bedside Commode # Bowel Movements 1 Weight 96.1 kg Results CBC & Chem 7: 08/30/20 03:45 08/30/20 03:45 Labs: Abnormal Lab Results - Last 24 Hours (Table) 08/29/20 08/29/20 08/29/20 Range/Units 10:51 10:51 10:51 RBC 3.62 L (3.80-5.40) m/uL Hgb (11.4-16.0) gm/dL Hct 33.5 L (34.0-46.0) % APTT 19.9 L (22.0-30.0) sec Sodium (137-145) mmol/L BUN 33 H (7-17) mg/dL Creatinine 1.51 H (0.52-1.04) mg/dL Glucose 301 H (74-99) mg/dL POC Glucose (mg/dL) (75-99) mg/dL AST 206 H (14-36) U/L Troponin I (0.000-0.034) ng/mL Total Protein 5.8 L (6.3-8.2) g/dL Albumin 3.2 L (3.5-5.0) g/dL 08/29/20 08/29/20 08/29/20 Range/Units 10:51 12:53 16:22 RBC (3.80-5.40) m/uL Hgb (11.4-16.0) gm/dL Hct (34.0-46.0) % APTT (22.0-30.0) sec Sodium (137-145) mmol/L BUN (7-17) mg/dL Creatinine (0.52-1.04) mg/dL Glucose (74-99) mg/dL POC Glucose (mg/dL) 282 H 218 H (75-99) mg/dL AST (14-36) U/L Troponin I 34.200 H* (0.000-0.034) ng/mL Total Protein (6.3-8.2) g/dL Albumin (3.5-5.0) g/dL 08/29/20 08/30/20 08/30/20 Range/Units 20:50 03:45 03:45 RBC 3.12 L (3.80-5.40) m/uL Hgb 10.3 L (11.4-16.0) gm/dL Hct 29.4 L (34.0-46.0) % APTT (22.0-30.0) sec Sodium 135 L (137-145) mmol/L BUN 30 H (7-17) mg/dL Creatinine 1.43 H (0.52-1.04) mg/dL Glucose 170 H (74-99) mg/dL POC Glucose (mg/dL) 158 H (75-99) mg/dL AST (14-36) U/L Troponin I (0.000-0.034) ng/mL Total Protein (6.3-8.2) g/dL Albumin (3.5-5.0) g/dL 08/30/20 Range/Units 06:29 RBC (3.80-5.40) m/uL Hgb (11.4-16.0) gm/dL Hct (34.0-46.0) % APTT (22.0-30.0) sec Sodium (137-145) mmol/L BUN (7-17) mg/dL Creatinine (0.52-1.04) mg/dL Glucose (74-99) mg/dL POC Glucose (mg/dL) 238 H (75-99) mg/dL AST (14-36) U/L Troponin I (0.000-0.034) ng/mL Total Protein (6.3-8.2) g/dL Albumin (3.5-5.0) g/dL
[2020-08-30 13:25] LABS: Glucose,Whole Blood 270 mg/dL (75-99)
[2020-08-30] MEDS: VANCOMYCIN 1,500 MG in SODIUM CHLORIDE 0.9% 250 ML IVPB SCH (13:28)
[2020-08-30 17:55] LABS: Glucose,Whole Blood 187 mg/dL (75-99)
[2020-08-30 20:53] LABS: Glucose,Whole Blood 113 mg/dL (75-99)
[2020-08-30] MEDS: ONDANSETRON 4 MG/2 ML VIAL IVP PRN (20:58)
[2020-08-30] MEDS: ATORVASTATIN 80 MG TAB PO SCH (21:12)
[2020-08-30] MEDS: MONTELUKAST 10 MG TAB PO SCH (21:12)
[2020-08-30] MEDS: amLODIPine 10 MG TAB PO SCH (21:13)
[2020-08-31 06:34] LABS: Glucose,Whole Blood 117 mg/dL (75-99)
[2020-08-31] MEDS: INSULIN ASPART (NovoLOG) 100 UNIT/ML VIAL SQ SCH ×7 (06:39→20:24)
[2020-08-31] MEDS: METOPROLOL SUCCINATE (ER) 50 MG TAB.ER.24H PO SCH (09:18)
[2020-08-31] MEDS: INSULIN DETEMIR (LEVEMIR) 100 UNIT/ML SYR SQ SCH ×2 (09:18→20:23)
[2020-08-31] MEDS: POTASSIUM CHLORIDE ER 20 MEQ TAB.ER PO SCH (09:18)
[2020-08-31] MEDS: ASPIRIN 81 MG PO SCH (09:18)
[2020-08-31] MEDS: SULFAMETHOX-TMP 800-160MG 1 EACH TAB PO SCH ×2 (09:18→20:23)
[2020-08-31] MEDS: VANCOMYCIN 1,500 MG in SODIUM CHLORIDE 0.9% 250 ML IVPB SCH (09:18)
[2020-08-31] MEDS: metroNIDAZOLE 500 MG TAB PO SCH ×3 (09:18→20:22)
[2020-08-31] MEDS: TICAGRELOR 90 MG TAB PO SCH ×2 (09:19→20:23)
[2020-08-31] MEDS: LOSARTAN 50 MG TAB PO SCH (09:19)
[2020-08-31] MEDS: FUROSEMIDE 20 MG TAB PO SCH (09:19)
[2020-08-31] MEDS: DULoxetine HCL 60 MG CAPSULE.DR PO SCH (09:30)
--- NOTE | 2020-08-31 11:40 | P.PN ---
Subjective Progress Note Date: 08/31/20 HISTORY OF PRESENT ILLNESS This is a 70-year-old female patient of Dr. Sanderson with past medical history of diabetes mellitus type 2, hypertension, hyperlipidemia, CVA in 2013 with no residuals, coronary artery disease status post 4 vessel CABG, bilateral carotid endarterectomies, mild intermittent asthma, osteomyelitis status post right great toe amputation 2014 and left toe amputation in June 2020 with revision on August [address] Gregory and patient was discharged home on August 12 with plan for IV vancomycin and oral Flagyl for 4 weeks, remote history of tobacco use area patient came in the hospital due to chest pain that started in the midsternal area and radiated to her left shoulder blade. She also had nausea which has continued. She denies having any epigastric pain. No blood in her stools. She came into the hospital for evaluation and was diagnosed with ST elevated myocardial infarction and was taken directly to the cardiac laborer construction or leak gang by Dr. Soto. Heart catheterization revealed occluded SVG to the RCA. Patient subsequently underwent PTCA with successful stenting of the SVG to RCA which was done by Dr. Plata. She then went to the intensive care unit where she is seen this morning. She states the chest pain is completely gone. She continues to have nausea. She states her tenter frame operator is Dr. walsh at [place]. 90% on 2 L nasal cannula. Initial hemoglobin 0.6, white count 8.2, platelet count 239. INR 0.9. Electrolytes normal. BUN 33 and creatinine 1.51. Blood sugar initially 301. Blood sugar is now 170. Magnesium 1.9, total bilirubin 0.4, AST 206, ALT 25, alkaline phosphatase 30. Initial troponin 34.2. ProBNP 4600. Coronavirus PCR not detected. Echocardiogram reveals EF of 40-45%, moderate concentric left hypertrophy, mild aortic valve sclerosis, mild mitral regurgitation. 08/31: Remains in the intensive care unit by scheduled for transfer to the cardiac stepdown unit. She denies having any chest pain. She is on O2 normally has a home O2 at 3 L nasal cannula. She is complaining of some abdominal distention and Senokot will be added. Consult for Dr. Mccabe regarding left great toe wound. Patient is continued on IV vancomycin and oral Flagyl but is also on Bactrim from home. She has been afebrile, heart rate 83, blood pressure 109/49, pulse ox 91% on 3 L nasal cannula. Repeat blood work reveals creatinine of 1.8. Blood sugars are running between 113 187. Repeat blood work ordered for tomorrow. REVIEW OF SYSTEMS Constitutional: No fever, no chills, no night sweats. No weight change. No weakness, fatigue or lethargy. No daytime sleepiness. EENT: No headache. No blurred vision or double vision, no loss of vision. No loss of Hearing, no ringing in the ears, no dizziness. No nasal drainage or congestion. No epistaxis. No sore throat. Lungs: No shortness of breath, cough, no sputum production. No wheezing. Cardiovascular: No chest pain, no lower extremity edema. No palpitations. No paroxysmal nocturnal dyspnea. No orthopnea. No lightheadedness or dizziness. No syncopal episodes. Abdominal: No abdominal pain. No nausea, vomiting. No diarrhea. repor tstipation. No bloody or tarry stools.. No loss of appetite. Genitourinary: No dysuria, increased frequency, urgency. No urinary retention. Musculoskeletal: No myalgias. No muscle weakness, no gait dysfunction, no frequent falls. No back pain. No neck pain. Integumentary: No wounds, no lesions. No rash or pruritus. No unusual bruising. No change in hair or nails. Neurologic: No aphasia. No facial droop. No change in mentation. No head injury. No headache. No paralysis. No paresthesia. Psychiatric: No depression. No anxiety. No mood swings. Endocrine: Mildly normal blood sugars. No weight change. No excessive sweating or thirst. No cold intolerance. PHYSICAL EXAMINATION Gen: This is a 70-year-old obese female. She is resting in bed and a ppears to be comfortable and in no acute distress. HEENT: Head is atraumatic, normocephalic. Pupils equal, round. Sclerae is anicteric. NECK: Supple. No JVD. No lymphadenopathy. No thyromegaly. LUNGS: Clear to auscultation. No wheezes or rhonchi. No intercostal retractions. HEART: Regular rate and rhythm. No murmur. ABDOMEN: Soft. Bowel sounds are present. No masses. No tenderness. EXTREMITIES: No pedal edema. No calf tenderness. Right great toe amputation, left toe amputation NEUROLOGICAL: Patient is awake, alert and oriented x3. Cranial nerves 2 through 12 are grossly intact. ASSESSMENT AND PLAN 1. Acute inferior ST elevated myocardial infarction status post heart catheterization and stenting of the SVG to RCA. Patient is post procedure day #2. Patient is currently maintained in the intensive care unit. Continue aspirin 81 mg daily, Toprol-XL 50 mg daily, Brilinta 90 mg twice daily, atorvastatin 80 mg at bedtime. 2. Diabetic and peripheral vascular disease foot ulcer with osteomyelitis status post stump revision. Patient is continued on IV vancomycin and oral Flagyl to complete a full 4 week course which will be completed on September 09. Consult with Dr. Mccabe. 3. Diabetes mellitus type 2, insulin requiring, uncontrolled with hyperglycemia. Continue Levemir 15 units twice daily and NovoLog scale and NovoLog scheduled will be resumed at 5 units with each meal. 4. Peripheral vascular disease with previous stenting of the right lower ex tremity. Patient regularly follows with Dr. Gregory. 5. Coronary artery disease with previous history of 4 vessel CABG. Patient's tenter frame operator is Dr. Brown at [facility]. 6. Chronic systolic heart failure, stable. Continue Lasix 20 mg daily, losartan and Toprol-XL. 7. COPD. Continue DuoNeb treatment, Pulmicort, Singulair. 8. History of CVA, stable. 9. Hyperlipidemia. Continue atorvastatin 80 mg at bedtime 10. Hypertension. Continue losartan and 50 mg daily, amlodipine 10 mg daily. 11. Recurrent depression. Continue Cymbalta 60 mg daily 12. Chronic hypoxic respiratory failure on home O2 at 3 L. 13. COVID-19 testing negative. Patient has been hospitalized during a pandemic. DISCHARGE PLAN Home with [facility]. Impression and plan of care have been directed as dictated by the signing physician. Emily Higginbotham nurse practitioner acting as scribe for signing physician. Objective - Vital Signs Vital signs: Vital Signs Temp 99.2 F 08/31/20 04:00 Pulse 81 08/31/20 05:00 Resp 16 08/31/20 05:00 BP 118/91 08/31/20 05:00 Pulse Ox 92 L 08/31/20 05:00 Intake & Output 08/30/20 08/31/20 08/31/20 18:59 06:59 18:59 Intake Total 490 Output Total 1 575 Balance 489 -575 Weight 95.9 kg Intake: Intake, IV Titration 250 Amount Vancomycin 1,500 mg In 250 Sodium Chloride 0.9% 250 ml @ 125 mls/hr IVPB DAILY [facility] Rx#:[id number] Oral 240 Output: Urine 0 575 Stool 1 Other: Voiding Method Bedside Commode # Voids 1 2 - Labs CBC & Chem 7: 08/30/20 03:45 08/31/20 03:59 Labs: Abnormal Lab Results - Last 24 Hours (Table) 08/30/20 08/30/20 08/30/20 Range/Units 09:39 13:23 17:55 Creatinine (0.52-1.04) mg/dL POC Glucose (mg/dL) 270 H 187 H (75-99) mg/dL Troponin I 59.700 H* (0.000-0.034) ng/mL 08/30/20 08/31/20 08/31/20 Range/Units 20:50 03:59 06:33 Creatinine 1.80 H (0.52-1.04) mg/dL POC Glucose (mg/dL) 113 H 117 H (75-99) mg/dL Troponin I (0.000-0.034) ng/mL
[2020-08-31 11:51] LABS: Glucose,Whole Blood 166 mg/dL (75-99)
--- NOTE | 2020-08-31 12:01 | P.PN ---
Subjective Progress Note Date: 08/31/20 HISTORY OF PRESENT ILLNESS: This is a 70-year-old female with a past medical history significant for coronary artery disease with previous CABG 4, hypertension, hyperlipidemia, congestive heart failure, peripheral vascular disease, and diabetes mellitus. Patient follows with a Dr. Brown out of [place]. We have been asked to see the patient in consultation for chest pain/stemi. Patient presented to the ER with chest pain. EKG was completed revealing ST elevation in inferior leads and STEMI alert was activated. Patient examined at the bedside in the emergency room. Patient states she began having chest pain yesterday that has progressively gotten worse. She states the pain is in the middle of her chest and in between her shoulder blades. She also reports shortness of breaht. She denies nausea or vomiting. EKG reveals sinus mechanism with ST elevation in inferior leads. ST depression in lateral leads. Chest xray not completed at the time of dictation Laboratory data: not available at time of dictation Current home cardiac medications include Norvasc 10 mg at night, Zocor 40 mg at night, metoprolol succinate 50 mg in the morning, losartan 50 mg daily, Lasix 20 mg daily, aspirin 81 mg daily 08/30/2020 Patient examined this morning at the bedside. She remains in the ICU. Patient underwent cardiac cath yesterday with PCI of the SVG to RCA. Patient denies chest pain or pressure. Denies shortness of breath. She reports nausea this morning and had emesis overnight. Blood pressure 117/63. Telemetry reveals sinus mechanism in the 70-80s. Right groin cath site clean dry with no hematoma noted. Echocardiogram completed revealed ejection fraction 40-45%, mid anteroseptal LV wall hypokinesis, apical septal wall hypokinesis, and mild mitral regurgitation. 08/31/2020 Patient examined this morning at the bedside. She remains in ICU, awaiting a bed on 3S. She denies chest pain or pressure. Denies shortness of breath. She states her nausea and abdominal pain have resolved. She complains of feeling very weak and tired. Blood pressure 122/62. Heart rate in the 80s. PHYSICAL EXAM: VITAL SIGNS: Reviewed. GENERAL: Well-developed in no acute distress. HEENT: Head is normocephalic. Pupils are equal, round. Sclerae anicteric. Mucous membranes of the mouth are moist. Neck supple. No JVD or thyromegaly LUNGS: Respirations even and unlabored. Lungs essentially clear to auscultation bilaterally. HEART: Regular rate and rhythm. S1 and S2 heard. EXTREMITIES: Normal range of motion. No clubbing or cyanosis. Peripheral pulses intact. No lower extremity edema. Right groin cath site clean dry with no hematoma noted. ASSESSMENT: Acute inferior STEMI, s/p PCI of SVG to RCA Coronary artery disease with previous CABG x 2014 at [place] Peripheral vascular disease with previous right lower extremity stenting per patient Chronic systolic congestive heart failure, EF 40% Hypertension Hyperlipidemia Diabetes Mellitus COPD PLAN: Continue current cardiac medications: Amlodipine, aspirin, Lipitor, Lasix, losartan, metoprolol, and Brilinta Brilinta covered with no copay per case management Patient may transfer to Further recommendations pending patient course Anticipate discharge home tomorrow Nurse practitioner note has been reviewed by physician. Signing provider agrees with the documented findings, assessment, and plan of care. Objective - Vital Signs Vital signs: Vital Signs Temp 99.2 F 08/31/20 04:00 Pulse 81 08/31/20 10:00 Resp 14 08/31/20 10:00 BP 122/62 08/31/20 10:00 Pulse Ox 92 L 08/31/20 10:00 Intake & Output 08/30/20 08/31/20 08/31/20 18:59 06:59 18:59 Intake Total 490 240 Output Total 1 575 Balance 489 -575 240 Weight 95.9 kg Intake: Intake, IV Titration 250 Amount Vancomycin 1,500 mg In 250 Sodium Chloride 0.9% 250 ml @ 125 mls/hr IVPB DAILY [facility] Rx#:[id number] Oral 240 240 Output: Urine 0 575 Stool 1 Other: Voiding Method Bedside Commode Bedside Commode # Voids 1 2 1 - Labs CBC & Chem 7: 08/30/20 03:45 08/31/20 03:59 Labs: Abnormal Lab Results - Last 24 Hours (Table) 08/30/20 08/30/20 08/30/20 Range/Units 13:23 17:55 20:50 Creatinine (0.52-1.04) mg/dL POC Glucose (mg/dL) 270 H 187 H 113 H (75-99) mg/dL 05/08/31/20 08/31/20 Range/Units 03:59 06:33 11:50 Creatinine 1.80 H (0.52-1.04) mg/dL POC Glucose (mg/dL) 117 H 166 H (75-99) mg/dL
[2020-08-31] MEDS: SENNOSIDES-DOCUSATE SODIUM 1 EACH TAB PO SCH (12:28)
[2020-08-31 17:14] LABS: Glucose,Whole Blood 211 mg/dL (75-99)
[2020-08-31 20:03] LABS: Glucose,Whole Blood 233 mg/dL (75-99)
[2020-08-31] MEDS: MONTELUKAST 10 MG TAB PO SCH (20:23)
[2020-08-31] MEDS: ATORVASTATIN 80 MG TAB PO SCH (20:23)
[2020-08-31] MEDS: amLODIPine 10 MG TAB PO SCH (20:23)
[2020-08-31] MEDS ORDERED: FUROSEMIDE 10 MG/ML 4 ML VIAL IV STA (21:30)
[2020-08-31] MEDS ORDERED: ALPRAZolam 0.25 MG TAB PO STA (21:30)
[2020-08-31] MEDS ORDERED: Potassium Replacement Protocol 1 EACH MISC MISCELLANE PRN (21:31)
[2020-08-31] MEDS: traMADol 50 MG TAB PO PRN (21:38)
--- NOTE | 2020-08-31 21:38 | XR ---
EXAMINATION TYPE: XR chest 1V portable DATE OF EXAM: 08/31/2020 HISTORY: Shortness of breath. COMPARISON: 06/20/20 TECHNIQUE: Single view of the chest is submitted. FINDINGS: Demonstrated are scattered senescent parenchymal change. Reticulonodular infiltrates at the lung bases right greater than left. Correlate for pneumonia. The heart is stable. Hilar and mediastinal structures are within normal limits. Degenerative changes are seen of the dorsal spine. IMPRESSION: 1. Reticulonodular infiltrates at the lung bases right greater than left. Correlate for pneumonia.
[2020-08-31] MEDS ORDERED: POTASSIUM CHLORIDE ER 20 MEQ TAB.ER PO SCH (22:00)
[2020-09-01] MEDS ORDERED: METOPROLOL SUCCINATE (ER) 25 MG TAB.ER.24H PO STA (01:08)
[2020-09-01 04:20] LABS: HCT 28.6 % (34.0-46.0); HGB 9.9 gm/dL (11.4-16.0); MCH 31.6 pg (25.0-35.0); MCHC 34.7 g/dL (31.0-37.0); MCV 91.2 fL (80.0-100.0); Mean Platelet Volume 7.2; Platelet Count 255 k/uL (150-450); RBC 3.14 m/uL (3.80-5.40); RDW 13.6 % (11.5-15.5); WBC 10.3 k/uL (3.8-10.6)
[2020-09-01 04:37] LABS: Calcium 8.1 mg/dL (8.4-10.2)
[2020-09-01 04:45] LABS: Potassium 4.5 mmol/L (3.5-5.1)
[2020-09-01] MEDS: INSULIN ASPART (NovoLOG) 100 UNIT/ML VIAL SQ SCH ×7 (06:48→21:01)
[2020-09-01 06:49] LABS: Glucose,Whole Blood 126 mg/dL (75-99)
[2020-09-01] MEDS: INSULIN DETEMIR (LEVEMIR) 100 UNIT/ML SYR SQ SCH ×2 (06:49→21:01)
[2020-09-01] MEDS: ALBUTEROL HFA INHALER INHALATION PRN ×2 (07:20→20:23)
[2020-09-01] MEDS ORDERED: CLOPIDOGREL 75 MG TAB PO SCH (09:00)
--- NOTE | 2020-09-01 09:05 | CONS ---
CONSULTATION DATE OF SERVICE: 08/31/2020 REASON FOR CONSULTATION: Left big toe amputation, osteomyelitis wound and continuation of antibiotic therapy. HISTORY OF PRESENT ILLNESS: The patient is a 70-year-old female well known to my service in this patient who does have left big toe osteomyelitis status post amputation. Subsequently the patient did have a revision of the amputation site has a bone sticking out and the wound was not healing. Patient has been currently treated with IV vancomycin, pharmacy to dose in addition to the oral Flagyl. The patient presented to [facility] here on the for evaluation. No chest pain in this patient who did have history of coronary disease and status post coronary artery bypass grafting x4 at . The patient was diagnosed with acute NC in this patient who was taken to the dental laboratory technician. The patient is status post angioplasty of the graft to the RCA. The patient subsequently has been admitted to the ICU. Infectious Disease was consulted for continued followup on her left big toe infection and antibiotic therapy. The patient denies having any fever or any chills. Patient denies any pain to the left big toe amputation site. The patient denies having any drainage from the area. No problem with PICC line and no diarrhea with antibiotic therapy. REVIEW OF SYSTEMS: Positive points have been mentioned in HPI. Rest of systems are negative. PAST MEDICAL HISTORY: Coronary artery disease, peripheral arterial disease, asthma, heart failure, COPD, CVA, TIA, hypertension, hyperlipidemia, diabetes mellitus and diabetic foot infection, osteomyelitis of the left big toe. PAST SURGICAL HISTORY: Appendectomy, hemorrhoidectomy, coronary artery bypass grafting x4, heart catheterization, tonsillectomy, tubal ligation and left big toe amputation. SOCIAL HISTORY: Remote history of smoking. No drinking or drug use. FAMILY HISTORY: No pertinent findings noticed. ALLERGIES: NICKEL. MEDICATIONS: Medications include the patient is currently on vancomycin, pharmacy to dose, Maalox, Ventolin, DuoNeb, Norvasc, aspirin, Lipitor, atropine, Pulmicort, Flexeril, Cymbalta, Lasix, NovoLog, Cozaar, Toprol-XL, Singulair, nitroglycerin. PHYSICAL EXAMINATION: Her blood pressure is 96/55, pulse of 89, temperature of 98. She is 91% on 3 L nasal cannula. General description is an elderly female lying in bed in no distress. No tachypnea or accessory muscles of respiration use. HEENT: Examination shows slight pallor. No scleral icterus. Oral mucous membrane is dry. NECK: Trachea central. No thyromegaly. LUNGS: Unlabored breathing, clear to auscultation anteriorly with crackles. HEART: S1, S2. Regular rate and rhythm. ABDOMEN: Soft, no tenderness. No guarding or rigidity. EXTREMITIES: No edema feet. SKIN EXAMINATION: No rash or mass palpable. NEUROLOGICAL: Patient is awake, alert, oriented x3. Mood and affect normal. LABS: Hemoglobin is 10.3, white count 8.3, BUN of 30, creatinine 1.43. Electrolytes have been normal. Troponin was elevated. Vancomycin level 19.5. DIAGNOSTIC IMPRESSION AND PLAN: 1. Patient with left big toe osteomyelitis status post amputation subsequently did have revision of the amputation site with removal of infected wound. The wound exposed concerning for osteomyelitis for which the patient is currently being treated with IV vancomycin and Flagyl and seems to have shown significant improvement as the patient wound has significantly decreased in size now admitted to the hospital with acute myocardial infarction status post intervention. 2. Patient with renal insufficiency high risk of nephrotoxicity. PLAN: 1. Patient to continue with vancomycin, pharmacy to dose, kidney function closely along with oral Flagyl. 2. Local wound care with Aquacel Silver dressing will change 48 hours. 3. We will follow on clinical condition and culture to further adjust medication if needed. Thank you for this consultation. Will follow this patient along with you. MMODL / IJN: [id number] /
[2020-09-01] MEDS ORDERED: CLOPIDOGREL 75 MG TAB PO STA (09:23)
[2020-09-01] MEDS: METOPROLOL SUCCINATE (ER) 25 MG TAB.ER.24H PO SCH (09:24)
[2020-09-01] MEDS: SENNOSIDES-DOCUSATE SODIUM 1 EACH TAB PO SCH (09:45)
[2020-09-01] MEDS: DULoxetine HCL 60 MG CAPSULE.DR PO SCH (09:47)
--- NOTE | 2020-09-01 10:58 | P.PN ---
Subjective Progress Note Date: 09/01/20 HISTORY OF PRESENT ILLNESS: This is a 70-year-old female with a past medical history significant for coronary artery disease with previous CABG 4, hypertension, hyperlipidemia, congestive heart failure, peripheral vascular disease, and diabetes mellitus. Patient follows with a Dr. Brown out of [place]. We have been asked to see the patient in consultation for chest pain/stemi. Patient presented to the ER with chest pain. EKG was completed revealing ST elevation in inferior leads and STEMI alert was activated. Patient examined at the bedside in the emergency room. Patient states she began having chest pain yesterday that has progressively gotten worse. She states the pain is in the middle of her chest and in between her shoulder blades. She also reports shortness of breaht. She denies nausea or vomiting. EKG reveals sinus mechanism with ST elevation in inferior leads. ST depression in lateral leads. Chest xray not completed at the time of dictation Laboratory data: not available at time of dictation Current home cardiac medications include Norvasc 10 mg at night, Zocor 40 mg at night, metoprolol succinate 50 mg in the morning, losartan 50 mg daily, Lasix 20 mg daily, aspirin 81 mg daily 08/30/2020 Patient examined this morning at the bedside. She remains in the ICU. Patient underwent cardiac cath yesterday with PCI of the SVG to RCA. Patient denies chest pain or pressure. Denies shortness of breath. She reports nausea this morning and had emesis overnight. Blood pressure 117/63. Telemetry reveals sinus mechanism in the 70-80s. Right groin cath site clean dry with no hematoma noted. Echocardiogram completed revealed ejection fraction 40-45%, mid anteroseptal LV wall hypokinesis, apical septal wall hypokinesis, and mild mitral regurgitation. 08/31/2020 Patient examined this morning at the bedside. She remains in ICU, awaiting a bed on 3S. She denies chest pain or pressure. Denies shortness of breath. She states her nausea and abdominal pain have resolved. She complains of feeling very weak and tired. Blood pressure 122/62. Heart rate in the 80s. 09/01/2020 Patient examined this morning at the bedside. She remains in the intensive care unit. Patient developed some respiratory distress overnight and received a one- time dose of Lasix 40 mg IV. Patient states her breathing has improved this morning. Patient also went into afib with RVR overnight. Patient denies a history of afib. Her metoprolol was increased this morning as well. Vital signs stable. PHYSICAL EXAM: VITAL SIGNS: Reviewed. GENERAL: Well-developed in no acute distress. HEENT: Head is normocephalic. Pupils are equal, round. Sclerae anicteric. Mucous membranes of the mouth are moist. Neck supple. No JVD or thyromegaly LUNGS: Respirations even and unlabored. Lungs diminished bilaterally. HEART: Regular rate and rhythm. S1 and S2 heard. EXTREMITIES: Normal range of motion. No clubbing or cyanosis. Peripheral pulses intact. No lower extremity edema. Right groin cath site clean dry with no hematoma noted. ASSESSMENT: Acute inferior STEMI, s/p PCI of SVG to RCA Coronary artery disease with previous CABG x 2014 at [place] Peripheral vascular disease with previous right lower extremity stenting per patient New onset paroxysmal atrial fibrillation with RVR Chronic systolic congestive heart failure, EF 40% Hypertension Hyperlipidemia Diabetes Mellitus COPD PLAN: Continue current cardiac medications: Amlodipine, aspirin, Lipitor, Lasix, losartan, and metoprolol Discontinue Brilinta Begin Plavix 75mg daily starting tomorrow. Loading dose of 300mg today. Begin Eliquis 2.5mg PO BID Continue triple therapy with aspirin, plavix, and eliquis for 1 month. Further recommendations pending patient course Nurse practitioner note has been reviewed by physician. Signing provider agrees with the documented findings, assessment, and plan of care. Objective - Vital Signs Vital signs: Vital Signs Temp 98.2 F 09/01/20 08:00 Pulse 84 09/01/20 08:00 Resp 21 09/01/20 08:00 BP 104/73 09/01/20 08:00 Pulse Ox 92 L 09/01/20 08:00 Intake & Output 08/31/20 09/01/20 09/01/20 18:59 06:59 18:59 Intake Total 1230 240 200 Output Total 800 200 Balance 1230 -560 0 Weight 95.9 kg 95.6 kg Intake: Intake, IV Titration 250 Amount Vancomycin 1,500 mg In 250 Sodium Chloride 0.9% 250 ml @ 125 mls/hr IVPB DAILY [facility] Rx#:[id number] Oral 980 240 200 Output: Urine 800 200 Other: Voiding Method Bedside Commode Bedside Commode # Voids 1 - Labs CBC & Chem 7: 09/01/20 04:08 09/01/20 04:08 Labs: Abnormal Lab Results - Last 24 Hours (Table) 08/31/20 08/31/20 08/31/20 Range/Units 11:50 17:13 20:01 RBC (3.80-5.40) m/uL Hgb (11.4-16.0) gm/dL Hct (34.0-46.0) % Sodium (137-145) mmol/L BUN (7-17) mg/dL Creatinine (0.52-1.04) mg/dL Glucose (74-99) mg/dL POC Glucose (mg/dL) 166 H 211 H 233 H (75-99) mg/dL Calcium (8.4-10.2) mg/dL 09/01/20 09/01/20 09/01/20 Range/Units 04:08 04:08 06:47 RBC 3.14 L (3.80-5.40) m/uL Hgb 9.9 L (11.4-16.0) gm/dL Hct 28.6 L (34.0-46.0) % Sodium 134 L (137-145) mmol/L BUN 31 H (7-17) mg/dL Creatinine 2.06 H (0.52-1.04) mg/dL Glucose 101 H (74-99) mg/dL POC Glucose (mg/dL) 126 H (75-99) mg/dL Calcium 8.1 L (8.4-10.2) mg/dL
--- NOTE | 2020-09-01 11:26 | P.PN ---
Subjective Progress Note Date: 09/01/20 HISTORY OF PRESENT ILLNESS This is a 70-year-old female patient of Dr. Sanderson with past medical history of diabetes mellitus type 2, hypertension, hyperlipidemia, CVA in 2013 with no residuals, coronary artery disease status post 4 vessel CABG, bilateral carotid endarterectomies, mild intermittent asthma, osteomyelitis status post right great toe amputation 2014 and left toe amputation in June 2020 with revision on August [address] Gregory and patient was discharged home on August 12 with plan for IV vancomycin and oral Flagyl for 4 weeks, remote history of tobacco use area patient came in the hospital due to chest pain that started in the midsternal area and radiated to her left shoulder blade. She also had nausea which has continued. She denies having any epigastric pain. No blood in her stools. She came into the hospital for evaluation and was diagnosed with ST elevated myocardial infarction and was taken directly to the cardiac equipment operator/laborer by Dr. Soto. Heart catheterization revealed occluded SVG to the RCA. Patient subsequently underwent PTCA with successful stenting of the SVG to RCA which was done by Dr. Plata. She then went to the intensive care unit where she is seen this morning. She states the chest pain is completely gone. She continues to have nausea. She states her support manager is Dr. walsh at [place]. 90% on 2 L nasal cannula. Initial hemoglobin 0.6, white count 8.2, platelet count 239. INR 0.9. Electrolytes normal. BUN 33 and creatinine 1.51. Blood sugar initially 301. Blood sugar is now 170. Magnesium 1.9, total bilirubin 0.4, AST 206, ALT 25, alkaline phosphatase 30. Initial troponin 34.2. ProBNP 4600. Coronavirus PCR not detected. Echocardiogram reveals EF of 40-45%, moderate concentric left hypertrophy, mild aortic valve sclerosis, mild mitral regurgitation. 08/31: Remains in the intensive care unit by scheduled for transfer to the cardiac stepdown unit. She denies having any chest pain. She is on O2 normally has a home O2 at 3 L nasal cannula. She is complaining of some abdominal distention and Senokot will be added. Consult for Dr. Mccabe regarding left great toe wound. Patient is continued on IV vancomycin and oral Flagyl but is also on Bactrim from home. She has been afebrile, heart rate 83, blood pressure 109/49, pulse ox 91% on 3 L nasal cannula. Repeat blood work reveals creatinine of 1.8. Blood sugars are running between 113 187. Repeat blood work ordered for tomorrow. 09/01: Patient went into atrial fibrillation last evening now converted to sinus rhythm. Cardiology has started the patient on eliquis 2.5 mg twice daily and Toprol-XL increased to 75 mg daily. Brilinta changed to Plavix. Lasix is at 40 oral daily but yesterday patient had some hypoxia and was given Xanax and a dose of IV Lasix. She is currently prophylaxing 90% on 6 L nasal cannula. She has been afebrile, heart rate 84, blood pressure 104/73. Patient has been seen by Dr. Mccabe with plan to continue vancomycin pharmacy to dose and Flagyl. Chest x-ray reveals reticulonodular infiltrates at the lung bases right greater than left. Correlate for pneumonia. Coronavirus PCR ordered and consult added for pulmonary medicine. Patient is afebrile, heart rate 84, blood pressure 104/73. Repeat blood work reveals WBC 10.3, hemoglobin 9.9, platelet count 255. Sodium 134, potassium 4.5, chloride 103, CO2 23, BUN 31 and creatinine 2.06. Blood sugar running between 101 and 233. Patient is scheduled to transfer to the cardiac stepdown unit. REVIEW OF SYSTEMS Constitutional: No fever, no chills, no night sweats. No weight change. No weakness, Reports fatigue. No daytime sleepiness. EENT: No headache. No blurred vision or double vision, no loss of vision. No l oss of Hearing, no ringing in the ears, no dizziness. No nasal drainage or congestion. No epistaxis. No sore throat. Lungs: Reports shortness of breath, cough, no sputum production. No wheezing. Cardiovascular: No chest pain, no lower extremity edema. No palpitations. No paroxysmal nocturnal dyspnea. No orthopnea. No lightheadedness or dizziness. No syncopal episodes. Abdominal: No abdominal pain. No nausea, vomiting. No diarrhea. reportstipation. No bloody or tarry stools.. No loss of appetite. Genitourinary: No dysuria, increased frequency, urgency. No urinary retention. Musculoskeletal: No myalgias. No muscle weakness, no gait dysfunction, no frequent falls. No back pain. No neck pain. Integumentary: No wounds, no lesions. No rash or pruritus. No unusual bruising. No change in hair or nails. Neurologic: No aphasia. No facial droop. No change in mentation. No head injury. No headache. No paralysis. No paresthesia. Psychiatric: No depression. No anxiety. No mood swings. Endocrine: Mildly normal blood sugars. PHYSICAL EXAMINATION Gen: This is a 70-year-old obese female. She is resting in bed and appears to be fatigued and tired. HEENT: Head is atraumatic, normocephalic. Pupils equal, round. Sclerae is anicteric. NECK: Supple. No JVD. No lymphadenopathy. No thyromegaly. LUNGS: Diminished breath sounds. No wheezes or rhonchi. No intercostal retractions. HEART: Regular rate and rhythm. No murmur. ABDOMEN: Soft. Bowel sounds are present. No masses. No tenderness. EXTREMITIES: No pedal edema. No calf tenderness. Right great toe amputation, left toe amputation. Dressing in place to the left toe amputation site. NEUROLOGICAL: Patient is awake, alert and oriented x3. Cranial nerves 2 through 12 are grossly intact. ASSESSMENT AND PLAN 1. Acute inferior ST elevated myocardial infarction status post heart catheterization and stenting of the SVG to RCA. Patient to transfer to the cardiac stepdown unit. Continue aspirin 81 mg daily, Toprol-XL 75 mg daily, Plavix 75 mg daily, atorvastatin 80 mg at bedtime. 2. Diabetic and peripheral vascular disease foot ulcer with osteomyelitis status post stump revision. Patient is continued on IV vancomycin and oral Flagyl to complete a full 4 week course which will be completed on September 09. Consult with Dr. Mccabe appreciated. Bactrim will be discontinued. 3. Diabetes mellitus type 2, insulin requiring, uncontrolled with hyperglyc emia. Continue Levemir 15 units twice daily and NovoLog scale and NovoLog scheduled will be resumed at 5 units with each meal. 4. New onset atrial fibrillation, paroxysmal atrial fibrillation. Metoprolol was increased to 75 mg daily, eliquis started. 5. Acute on chronic hypoxic respiratory failure with pneumonia. COVID-19 testing. Pulmonary consult added. Updated Dr. Mccabe area and patient is currently on Flagyl, vancomycin. 6. Acute kidney injury. Consult with nephrology added. 7. Peripheral vascular disease with previous stenting of the right lower extremity. Patient regularly follows with Dr. Gregory. 8. Coronary artery disease with previous history of 4 vessel CABG. Patient's support manager is Dr. Brown at [facility]. 9. Chronic systolic heart failure, stable. Continue Lasix 20 mg daily, losartan and Toprol-XL. 10. COPD. Continue DuoNeb treatment, Pulmicort, Singulair. 11. History of CVA, stable. 12. Hyperlipidemia. Continue atorvastatin 80 mg at bedtime 13. Hypertension. Continue losartan and 50 mg daily, amlodipine 10 mg daily. 14. Recurrent depression. Continue Cymbalta 60 mg daily 15. Chronic hypoxic respiratory failure on home O2 at 3 L. 16. COVID-19 testing negative. Patient has been hospitalized during a pandemic. DISCHARGE PLAN Home with [facility]. Impression and plan of care have been directed as dictated by the signing physician. Emily Higginbotham nurse practitioner acting as scribe for signing physician. Objective - Vital Signs Vital signs: Vital Signs Temp 98.2 F 09/01/20 08:00 Pulse 84 09/01/20 08:00 Resp 21 09/01/20 08:00 BP 104/73 09/01/20 08:00 Pulse Ox 92 L 09/01/20 08:00 Intake & Output 08/31/20 09/01/20 09/01/20 18:59 06:59 18:59 Intake Total 1230 240 200 Output Total 800 200 Balance 1230 -560 0 Weight 95.9 kg 95.6 kg Intake: Intake, IV Titration 250 Amount Vancomycin 1,500 mg In 250 Sodium Chloride 0.9% 250 ml @ 125 mls/hr IVPB DAILY [facility] Rx#:[id number] Oral 980 240 200 Output: Urine 800 200 Other: Voiding Method Bedside Commode Bedside Commode # Voids 1 - Labs CBC & Chem 7: 09/01/20 04:08 09/01/20 04:08 Labs: Abnormal Lab Results - Last 24 Hours (Table) 08/31/20 08/31/20 08/31/20 Range/Units 11:50 17:13 20:01 RBC (3.80-5.40) m/uL Hgb (11.4-16.0) gm/dL Hct (34.0-46.0) % Sodium (137-145) mmol/L BUN (7-17) mg/dL Creatinine (0.52-1.04) mg/dL Glucose (74-99) mg/dL POC Glucose (mg/dL) 166 H 211 H 233 H (75-99) mg/dL Calcium (8.4-10.2) mg/dL 09/01/20 09/01/20 09/01/20 Range/Units 04:08 04:08 06:47 RBC 3.14 L (3.80-5.40) m/uL Hgb 9.9 L (11.4-16.0) gm/dL Hct 28.6 L (34.0-46.0) % Sodium 134 L (137-145) mmol/L BUN 31 H (7-17) mg/dL Creatinine 2.06 H (0.52-1.04) mg/dL Glucose 101 H (74-99) mg/dL POC Glucose (mg/dL) 126 H (75-99) mg/dL Calcium 8.1 L (8.4-10.2) mg/dL
[2020-09-01] MEDS ORDERED: VANCOMYCIN IV PER PHARMACY 1 EACH MISC MISCELLANE PRN (11:54)
[2020-09-01 12:09] LABS: Glucose,Whole Blood 152 mg/dL (75-99)
--- NOTE | 2020-09-01 12:53 | P.CNPUL ---
History of Present Illness Consult date: 09/01/20 Requesting physician: Mikel Delong Reason for consult: dyspnea, hypoxemia, abnormal CXR/CT Chief complaint: Shortness of breath. History of present illness: Pulmonary consultation dated 09/01/2020. 70-year-old female that typically sees Dr. Rojas for her chronic bronchial asthma. The patient came in to the wound center, for hyperbaric treatment, on August 29. Apparently that time, she was having shortness of breath, and chest pain. She was immediately sent to the emergency room. She was thought to have an ST segment elevation myocardial infarction, and with the catheterization laboratory and had stents placed. She's in the intensive care unit now. She is on 6 L nasal cannula. Normally she wears 2-3 L. Anyway, we are asked to see her because of the worsening shortness of breath, and to rule out pneumonia. The patient denies any fever or chills. The patient denies cough or phlegm production. Her chest x-ray lipase and shows borderline cardiomegaly and some interstitial changes and small effusions consistent with heart failure. In addition, her troponins were elevated, and her BMP was elevated as well. In my opinion, nothing really points towards pneumonia as an etiology of her worsening shortness of breath. In addition, it does not appear that her asthma is particularly active this time also. She's not wheezing, or having any chest tightness. The patient states that she was recently in the hospital 3 weeks ago with an episode of heart failure as well. Her medical history includes hypertension, CAD, hyperlipidemia, asthma, diabetes, and nonhealing ulcers of the lower extremities. The patient also has a history of CVA, rheumatoid arthritis, and previous amputations of the digits of the foot for nonhealing wounds. White count 10.3, hemoglobin 9.9, hematocrit 28.6, and platelet count 255,000. Sodium 134, potassium 4.5, chlorides 103, CO2 23, anion gap is 8, BUN 31, creatinine 2.06. N-terminal proBNP is 4600. Troponins were 34.2 and 59.7 respectively. Review of Systems REVIEW OF SYSTEMS: CONSTITUTIONAL: [Negative.] NEUROLOGIC: [ Negative.] HEENT: [ Negative.] CARDIAC: [Negative.] PULMONARY: Shortness of breath. GI: [Negative.] : [Negative.] RHEUMATOLOGIC: [ Negative.] IMMUNOLOGIC: [ Negative.] ENDOCRINE: [Negative. ] DERMATOLOGIC: [Negative.] Past Medical History Past Medical History: Asthma, Coronary Artery Disease (CAD), Heart Failure, COPD, CVA/TIA, Diabetes Mellitus, Hyperlipidemia, Hypertension, Pneumonia, Rheumatoid Arthritis (RA) Additional Past Medical History / Comment(s): left GREAT TOE WOUND, with current dressing, partial amputation on 06/28/20. going to hyperbaric chamber 5 days a week, PICC line right arm Last Myocardial Infarction Date:: 2014 History of Any Multi-Drug Resistant Organisms: None Reported Past Surgical History: Adenoidectomy, Appendectomy, Coronary Bypass/CABG, Heart Catheterization, Tonsillectomy, Tubal Ligation Additional Past Surgical History / Comment(s): Open heart on April 13 2015, cabg X4, bilateral carotid endarterectomies,. Right great toe amputation 2014. stent in right leg above knee, elke cataracts. left toe ambutation, 06/18/20 Past Anesthesia/Blood Transfusion Reactions: Previous Problems w/ Anesthesia Additional Past Anesthesia/Blood Transfusion Reaction / Comment(s): diff breathing afterwards Past Psychological History: No Psychological Hx Reported Smoking Status: Former smoker Past Alcohol Use History: None Reported Past Drug Use History: None Reported - Past Family History Father Family Medical History: Coronary Artery Disease (CAD), CVA/TIA, Diabetes Me llitus Mother Additional Family Medical History / Comment(s): "spot on the lung" Medications and Allergies Home Medications Medication Instructions Recorded Confirmed Type Metoprolol Succinate [Toprol XL] 50 mg PO QAM 05/02/15 08/29/20 History Nitroglycerin Sl Tabs [Nitrostat] 0.4 mg SL Q5M PRN 05/02/15 08/29/20 History Aspirin 81 mg PO DAILY 04/15/17 08/29/20 History Simvastatin [Zocor] 40 mg PO HS 04/15/17 08/29/20 History amLODIPine [Norvasc] 10 mg PO HS 04/15/17 08/29/20 History Abatacept [Orencia] 125 mg SQ WE 05/07/19 08/29/20 History Albuterol Sulfate [Proair Hfa] 2 puff INHALATION RT-Q4H PRN 06/16/20 08/29/20 History Losartan [Cozaar] 50 mg PO QAM 06/16/20 08/29/20 History traMADol HCL 50 mg PO BID PRN 06/16/20 08/29/20 History Insulin Glargine,Hum.rec.anlog 15 unit SQ BID #0 06/26/20 08/29/20 Rx [Lantus Solostar] Budesonide [Pulmicort] 1 mg INHALATION RT-BID PRN 07/15/20 08/29/20 History Ipratropium-Albuterol Nebulize 3 ml INHALATION RT-QID PRN 07/15/20 08/29/20 History [Duoneb 0.5 mg-3 mg/3 ml Soln] Montelukast Sodium [Singulair] 10 mg PO HS 07/15/20 08/29/20 History Furosemide [Lasix] 20 mg PO DAILY #1 tab 08/14/20 08/29/20 Rx Vancomycin 1,500 mg IVPB Q24HR #28 vial 08/14/20 08/29/20 Rx metroNIDAZOLE [Flagyl] 500 mg PO TID #84 tab 08/14/20 08/29/20 Rx Cyclobenzaprine [Flexeril] 10 mg PO TID PRN 08/29/20 08/29/20 History DULoxetine HCL [Cymbalta] 60 mg PO DAILY 08/29/20 08/29/20 History Insulin Aspart [NovoLOG Flexpen] 10 units SQ AC-BID 08/29/20 08/29/20 History Insulin Aspart [NovoLOG Flexpen] 12 units SQ AC-LUNCH 08/29/20 08/29/20 History Potassium Chloride [Klor-Con 20] 20 meq PO DAILY 08/29/20 08/29/20 History Sulfamethoxazole/Trimethoprim 1 tab PO BID 08/29/20 08/29/20 History [Bactrim DS 800-160 mg] Apixaban [Eliquis] 2.5 mg PO BID #60 tab 09/01/20 Rx Allergies Allergy/AdvReac Type Severity Reaction Status Date / Time nickel Allergy Rash/Hives Verified 08/29/20 10:47 Physical Exam Osteopathic Statement: *. No significant issues noted on an osteopathic structural exam other than those noted in the History and Physical/Consult. Vitals: Vital Signs Temp Pulse Pulse Resp BP BP Pulse Ox 09/01/20 08:00 98.2 F 84 21 104/73 92 L 09/01/20 06:00 86 15 92 L 09/01/20 05:00 82 18 122/58 85 L 09/01/20 04:00 98.2 F 84 88 10 L 88 L 09/01/20 03:00 84 23 89 L 09/01/20 02:00 83 27 H 135/57 88 L 09/01/20 01:00 98 17 92 L 09/01/20 00:31 90 25 H 89 L 09/01/20 00:00 98.2 F 93 88 5 L 95/56 135/57 91 L 08/31/20 23:00 87 10 L 89 L 08/31/20 22:00 90 26 H 88 L 08/31/20 21:00 87 18 94 L 08/31/20 20:00 98.6 F 89 22 125/55 92 L 08/31/20 19:00 92 19 88 L 08/31/20 18:39 97 08/31/20 18:29 97 08/31/20 18:00 89 22 90 L 08/31/20 17:00 85 25 H 92 L 08/31/20 16:00 98.0 F 89 80 34 H 96/55 91 L 08/31/20 15:00 84 22 128/85 94 L 08/31/20 14:00 82 19 107/51 94 L 08/31/20 13:00 84 12 108/74 92 L Intake and Output 08/31/20 09/01/20 09/01/20 22:59 06:59 14:59 Intake Total 240 240 200 Output Total 550 250 200 Balance -310 -10 0 Intake: Oral 240 240 200 Output: Urine 550 250 200 Other: Voiding Method Bedside Commode Bedside Commode # Voids 1 Weight 95.6 kg No acute distress, oriented 3. Currently on 6 L nasal cannula. Saturations 92%. HEENT examination is grossly unremarkable. . Neck supple. Full range of motion. No adenopathy thyromegaly or neck vein distention. Cardiovascular examination reveals regular rhythm rate. S1-S2 normal. No S3 or S4. No discernible murmur noted. Heart rate 84 bpm. Lungs reveal mild bibasilar crackles. No wheezes or rhonchi. Breath sounds equal bilaterally.. Abdomen soft bowel sounds are heard. No masses or tenderness. Extremities are intact. No cyanosis clubbing or edema. Skin is without rash or lesion. Neurologic examination is brief but nonfocal. Results - Laboratory Findings CBC and BMP: 09/01/20 04:08 09/01/20 04:08 PT/INR, D-dimer PT 9.7 sec (9.0-12.0) 08/29/20 10:51 INR 0.9 (<1.2) 08/29/20 10:51 Abnormal lab findings: Abnormal Labs 08/29/20 08/29/20 08/29/20 10:51 10:51 10:51 RBC 3.62 L Hgb Hct 33.5 L APTT 19.9 L Sodium BUN 33 H Creatinine 1.51 H Glucose 301 H POC Glucose (mg/dL) Calcium AST 206 H Troponin I Total Protein 5.8 L Albumin 3.2 L 08/29/20 08/29/20 08/29/20 10:51 12:53 16:22 RBC Hgb Hct APTT Sodium BUN Creatinine Glucose POC Glucose (mg/dL) 282 H 218 H Calcium AST Troponin I 34.200 H* Total Protein Albumin 08/29/20 08/30/20 08/30/20 20:50 03:45 03:45 RBC 3.12 L Hgb 10.3 L Hct 29.4 L APTT Sodium 135 L BUN 30 H Creatinine 1.43 H Glucose 170 H POC Glucose (mg/dL) 158 H Calcium AST Troponin I Total Protein Albumin 08/30/20 08/30/20 08/30/20 06:29 09:39 13:23 RBC Hgb Hct APTT Sodium BUN Creatinine Glucose POC Glucose (mg/dL) 238 H 270 H Calcium AST Troponin I 59.700 H* Total Protein Albumin 08/30/20 08/30/20 08/31/20 17:55 20:50 03:59 RBC Hgb Hct APTT Sodium BUN Creatinine 1.80 H Glucose POC Glucose (mg/dL) 187 H 113 H Calcium AST Troponin I Total Protein Albumin 08/31/20 08/31/20 08/31/20 06:33 11:50 17:13 RBC Hgb Hct APTT Sodium BUN Creatinine Glucose POC Glucose (mg/dL) 117 H 166 H 211 H Calcium AST Troponin I Total Protein Albumin 08/31/20 09/01/20 09/01/20 20:01 04:08 04:08 RBC 3.14 L Hgb 9.9 L Hct 28.6 L APTT Sodium 134 L BUN 31 H Creatinine 2.06 H Glucose 101 H POC Glucose (mg/dL) 233 H Calcium 8.1 L AST Troponin I Total Protein Albumin 09/01/20 09/01/20 06:47 12:08 RBC Hgb Hct APTT Sodium BUN Creatinine Glucose POC Glucose (mg/dL) 126 H 152 H Calcium AST Troponin I Total Protein Albumin - Diagnostic Findings Chest x-ray: image reviewed Assessment and Plan Assessment: Shortness of breath, which I believe to be related to mild CHF, secondary to her recent ST segment elevation myocardial infarction. Status post recent stenting of the SVG to RCA, on August 29. ST segment elevation myocardial infarction. History of hypertension. History of hyperlipidemia. History of chronic bronchial asthma. History of diabetes mellitus. History of CAD, status post bypass grafting 4 vessels, 2014. History of CVA. History of rheumatoid arthritis. Nonhealing ulcer/wound of the left great toe. Previous amputations of the digits of her foot for nonhealing ulcers. Plan: Plan dated 09/01/2020. In my opinion, there is no evidence of pneumonia in this patient. The patient is receiving vancomycin for her wounds on her foot. A pro-calcitonin levels is ordered. No additional recommendations are made at this time. We will continue to follow and offer an opinion, where appropriate. Currently, her asthma was not active. Time with Patient: Greater than 30
[2020-09-01] MEDS ORDERED: VANCOMYCIN 1,500 MG in SODIUM CHLORIDE 0.9% 250 ML IVPB ONE (13:00)
[2020-09-01] MEDS: POTASSIUM CHLORIDE ER 20 MEQ TAB.ER PO SCH (13:08)
[2020-09-01] MEDS: APIXABAN 2.5 MG TABLET PO SCH ×2 (13:08→21:01)
[2020-09-01] MEDS: ASPIRIN 81 MG PO SCH (13:08)
[2020-09-01] MEDS: metroNIDAZOLE 500 MG TAB PO SCH ×3 (13:08→21:02)
[2020-09-01] MEDS: FUROSEMIDE 40 MG TAB PO SCH (13:08)
[2020-09-01] MEDS: LOSARTAN 50 MG TAB PO SCH (13:09)
--- NOTE | 2020-09-01 15:20 | PN ---
PROGRESS NOTE DATE OF SERVICE: 09/01/2020. REASON FOR FOLLOWUP: 1. Left big toe osteomyelitis. 2. Abnormal x-ray and a question of pneumonia. INTERVAL HISTORY: The patient is currently afebrile. She has been complaining of shortness of breath requiring supplemental oxygen. The patient denies having any chest pain. Patient did not have any cough, some nausea but no vomiting. No abdominal pain. No diarrhea. Has pain to the left big toe wound area. PHYSICAL EXAMINATION: Blood pressure 102/63 with a pulse of 92, temperature is 97.8. She is 91% on 6 L nasal cannula. General description is an elderly female lying in bed in no distress. RESPIRATORY SYSTEM: Unlabored breathing, decreased intensity of breath sounds. No wheeze. HEART: S1, S2. Regular rate and rhythm. ABDOMEN: Soft, no tenderness. Left foot is currently dressed up. No obvious drainage on the dressing. LABS: Hemoglobin 9.9, white count 10.3, BUN of 31, creatinine is 2.06. Vancomycin random slightly elevated. DIAGNOSTIC IMPRESSION AND PLAN: 1. Patient left big toe wound osteomyelitis. The patient has clinically responded to the vancomycin and Flagyl to continue. Vanco level needs to be monitored closely in view of worsening of her kidney function. 2. Abnormal x-ray, possible fluid clinically not behaving as pneumonia with no cough or fever. Workup has been ordered. Will follow results and continue supportive care. MMODL / IJN: [id number] /
[2020-09-01 17:21] LABS: Glucose,Whole Blood 107 mg/dL (75-99)
[2020-09-01] MEDS: traMADol 50 MG TAB PO PRN (17:58)
[2020-09-01] MEDS ORDERED: FUROSEMIDE 10 MG/ML 4 ML VIAL IV STA (19:42)
--- NOTE | 2020-09-01 20:06 | XR ---
EXAMINATION TYPE: XR chest 1V portable DATE OF EXAM: 09/01/2020 COMPARISON: 08/31/2020 HISTORY: Worsening shortness of breath. TECHNIQUE: Single frontal view of the chest is obtained. FINDINGS: The left PICC remains in place. There is interval diffuse moderate opacities in the bilate ral mid to lower lungs. There are probable small pleural effusions. No pneumothorax. The cardiac bibiana houette size is enlarged. Prior cardiothoracic surgical changes seen. The osseous structures are in tact. IMPRESSION: Interval diffuse opacities, concerning for infiltrates, edema or aspiration changes.
[2020-09-01] MEDS: SYMBICORT 160-4.5 MCG INHALER INHALATION SCH (20:23)
[2020-09-01 20:25] LABS: Glucose,Whole Blood 149 mg/dL (75-99)
[2020-09-01] MEDS: ATORVASTATIN 80 MG TAB PO SCH (21:01)
[2020-09-01] MEDS: MONTELUKAST 10 MG TAB PO SCH (21:01)
[2020-09-02 04:52] LABS: Calcium 7.7 mg/dL (8.4-10.2); Potassium 4.7 mmol/L (3.5-5.1)
--- NOTE | 2020-09-02 06:11 | XR ---
EXAMINATION TYPE: XR chest 1V portable DATE OF EXAM: 09/02/2020 CLINICAL HISTORY: Difficulty breathing hypoxia progress study. TECHNIQUE: Single AP portable semiupright view of the chest is obtained. COMPARISON: Chest x-ray from one day earlier and older studies FINDINGS: Stable left-sided PICC line. Post-CABG changes with mediastinal clips and sternal wires redemonstrated. Persistent cardiomegaly. D iffuse reticulonodular increased opacities right mid to lower lung. Some improved aeration in left si ded reticulonodular opacities. Osseous structures are intact. IMPRESSION: Some improved aeration left lung. Cardiomegaly and diffuse right lung reticulonodular opa cities redemonstrated.
[2020-09-02 06:18] LABS: Glucose,Whole Blood 148 mg/dL (75-99)
[2020-09-02] MEDS: INSULIN ASPART (NovoLOG) 100 UNIT/ML VIAL SQ SCH ×7 (06:23→20:38)
[2020-09-02] MEDS: INSULIN DETEMIR (LEVEMIR) 100 UNIT/ML SYR SQ SCH ×2 (06:23→20:47)
[2020-09-02] MEDS: ALBUTEROL HFA INHALER INHALATION PRN ×4 (07:41→20:09)
[2020-09-02] MEDS: SYMBICORT 160-4.5 MCG INHALER INHALATION SCH ×2 (07:41→20:09)
[2020-09-02] MEDS: CLOPIDOGREL 75 MG TAB PO SCH (08:27)
[2020-09-02] MEDS: SENNOSIDES-DOCUSATE SODIUM 1 EACH TAB PO SCH (08:27)
[2020-09-02] MEDS: POTASSIUM CHLORIDE ER 20 MEQ TAB.ER PO SCH (08:27)
[2020-09-02] MEDS: ASPIRIN 81 MG PO SCH (08:27)
[2020-09-02] MEDS: FUROSEMIDE 40 MG TAB PO SCH (08:28)
[2020-09-02] MEDS: METOPROLOL SUCCINATE (ER) 25 MG TAB.ER.24H PO SCH (08:28)
[2020-09-02] MEDS: APIXABAN 2.5 MG TABLET PO SCH ×2 (08:28→20:47)
[2020-09-02] MEDS: DULoxetine HCL 60 MG CAPSULE.DR PO SCH (08:28)
[2020-09-02] MEDS: LOSARTAN 50 MG TAB PO SCH (08:28)
[2020-09-02] MEDS: metroNIDAZOLE 500 MG TAB PO SCH ×3 (08:30→20:47)
--- NOTE | 2020-09-02 09:46 | P.PN ---
Subjective Progress Note Date: 09/02/20 Principal diagnosis: Shortness of breath. Pulmonary consultation dated 09/01/2020. 70-year-old female that typically sees Dr. Rojas for her chronic bronchial asthma. The patient came in to the wound center, for hyperbaric treatment, on August 29. Apparently that time, she was having shortness of breath, and chest pain. She was immediately sent to the emergency room. She was thought to have an ST segment elevation myocardial infarction, and with the catheterization laboratory and had stents placed. She's in the intensive care unit now. She is on 6 L nasal cannula. Normally she wears 2-3 L. Anyway, we are asked to see her because of the worsening shortness of breath, and to rule out pneumonia. The patient denies any fever or chills. The patient denies cough or phlegm production. Her chest x-ray lipase and shows borderline cardiomegaly and some interstitial changes and small effusions consistent with heart failure. In addition, her troponins were elevated, and her BMP was elevated as well. In my opinion, nothing really points towards pneumonia as an etiology of her worsening shortness of breath. In addition, it does not appear that her asthma is parti cularly active this time also. She's not wheezing, or having any chest tightness. The patient states that she was recently in the hospital 3 weeks ago with an episode of heart failure as well. Her medical history includes hypertension, CAD, hyperlipidemia, asthma, diabetes, and nonhealing ulcers of the lower extremities. The patient also has a history of CVA, rheumatoid arthritis, and previous amputations of the digits of the foot for nonhealing wounds. White count 10.3, hemoglobin 9.9, hematocrit 28.6, and platelet count 255,000. Sodium 134, potassium 4.5, chlorides 103, CO2 23, anion gap is 8, BUN 31, creatinine 2.06. N-terminal proBNP is 4600. Troponins were 34.2 and 59.7 respectively. Progress note dated 09/02/2020. 70-year-old female with a history of chronic bronchial asthma. The patient was admitted to the hospital via the emergency room, with ST segment elevation myoca rdial infarction. She had stents placed in the catheterization laboratory. She came to the intensive care unit for further monitoring and treatment. She was thought to possibly have pneumonia. We thought her problem was primarily heart failure. She responded very nicely to Lasix therapy. She is resting comfortably now. She is on high flow nasal O2 at 10 L. She's not receiving any IV fluids. Labs today include a sodium 133 potassium 4.7, chlorides 103, CO2 21, and anion gap of 9. BUN and creatinine were 39 and 2.41 respectively. Pro- calcitonin level was 0.34. Chest x-ray is improved. Objective - Vital Signs Vital signs: Vital Signs Temp 97.5 F L 09/02/20 08:00 Pulse 115 H 09/02/20 08:00 Resp 24 09/02/20 08:00 BP 110/86 09/02/20 08:00 Pulse Ox 90 L 09/02/20 08:00 Intake & Output 09/01/20 09/02/20 09/02/20 18:59 06:59 18:59 Intake Total 680 240 Output Total 950 900 Balance -270 -660 Weight 96 kg Intake: Oral 680 240 Output: Urine 950 900 Other: Voiding Method Bedside Commode Bedside Commode - Exam No acute distress, oriented 3. Currently on 10 L nasal cannula. Saturations 92%. HEENT examination is grossly unremarkable. . Neck supple. Full range of motion. No adenopathy thyromegaly or neck vein distention. Cardiovascular examination reveals regular rhythm rate. S1-S2 normal. No S3 or S4. No discernible murmur noted. Heart rate 15 bpm. Lungs reveal mild bibasilar crackles. No wheezes or rhonchi. Breath sounds equal bilaterally.. Abdomen soft bowel sounds are heard. No masses or tenderness. Extremities are intact. No cyanosis clubbing or edema. Skin is without rash or lesion. Neurologic examination is brief but nonfocal. - Labs CBC & Chem 7: 09/01/20 04:08 09/02/20 04:00 Labs: Abnormal Lab Results - Last 24 Hours (Table) 09/01/20 09/01/20 09/01/20 Range/Units 04:08 12:08 17:20 Sodium (137-145) mmol/L Carbon Dioxide (22-30) mmol/L BUN (7-17) mg/dL Creatinine (0.52-1.04) mg/dL Glucose (74-99) mg/dL POC Glucose (mg/dL) 152 H 107 H (75-99) mg/dL Calcium (8.4-10.2) mg/dL Procalcitonin 0.34 H (0.02-0.09) ng/mL 09/01/20 09/02/20 09/02/20 Range/Units 20:23 04:00 06:17 Sodium 133 L (137-145) mmol/L Carbon Dioxide 21 L (22-30) mmol/L BUN 39 H (7-17) mg/dL Creatinine 2.41 H (0.52-1.04) mg/dL Glucose 144 H (74-99) mg/dL POC Glucose (mg/dL) 149 H 148 H (75-99) mg/dL Calcium 7.7 L (8.4-10.2) mg/dL Procalcitonin (0.02-0.09) ng/mL Assessment and Plan Assessment: Shortness of breath, which I believe to be related to mild CHF, secondary to her recent ST segment elevation myocardial infarction. Status post recent stenting of the SVG to RCA, on August 29. ST segment elevation myocardial infarction. History of hypertension. History of hyperlipidemia. History of chronic bronchial asthma. History of diabetes mellitus. History of CAD, status post bypass grafting 4 vessels, 2014. History of CVA. History of rheumatoid arthritis. Nonhealing ulcer/wound of the left great toe. Previous amputations of the digits of her foot for nonhealing ulcers. Plan: Plan dated 09/01/2020. In my opinion, there is no evidence of pneumonia in this patient. The patient is receiving vancomycin for her wounds on her foot. A pro-calcitonin levels is ordered. No additional recommendations are made at this time. We will continue to follow and offer an opinion, where appropriate. Currently, her asthma was not active. Plan dated 09/02/2020. Currently, the patient seemed to be a bit more comfortable after receiving Lasix that I gave yesterday. Her chest x-ray certainly improved. Her pro-calcitonin is a bit elevated but in my opinion there is no evidence of active pulmonary infection. The only infection currently is the foot. For that, the patient's on vancomycin. She is receiving medications for her asthma. Additional recommendations and suggestions are forthcoming. We will continue to follow. Prognosis is guarded. Time with Patient: Greater than 30
--- NOTE | 2020-09-02 10:14 | P.PN ---
Subjective Progress Note Date: 09/02/20 HISTORY OF PRESENT ILLNESS This is a 70-year-old female patient of Dr. Sanderson with past medical history of diabetes mellitus type 2, hypertension, hyperlipidemia, CVA in 2013 with no residuals, coronary artery disease status post 4 vessel CABG, bilateral carotid endarterectomies, mild intermittent asthma, osteomyelitis status post right great toe amputation 2014 and left toe amputation in June 2020 with revision on August [address] Gregory and patient was discharged home on August 12 with plan for IV vancomycin and oral Flagyl for 4 weeks, remote history of tobacco use area patient came in the hospital due to chest pain that started in the midsternal area and radiated to her left shoulder blade. She also had nausea which has continued. She denies having any epigastric pain. No blood in her stools. She came into the hospital for evaluation and was diagnosed with ST elevated myocardial infarction and was taken directly to the cardiac labor relations director by Dr. Soto. Heart catheterization revealed occluded SVG to the RCA. Patient subsequently underwent PTCA with successful stenting of the SVG to RCA which was done by Dr. Plata. She then went to the intensive care unit where she is seen this morning. She states the chest pain is completely gone. She continues to have nausea. She states her appliance painter and refinisher is Dr. walsh at [place]. 90% on 2 L nasal cannula. Initial hemoglobin 0.6, white count 8.2, platelet count 239. INR 0.9. Electrolytes normal. BUN 33 and creatinine 1.51. Blood sugar initially 301. Blood sugar is now 170. Magnesium 1.9, total bilirubin 0.4, AST 206, ALT 25, alkaline phosphatase 30. Initial troponin 34.2. ProBNP 4600. Coronavirus PCR not detected. Echocardiogram reveals EF of 40-45%, moderate concentric left hypertrophy, mild aortic valve sclerosis, mild mitral regurgitation. 08/31: Remains in the intensive care unit by scheduled for transfer to the cardiac stepdown unit. She denies having any chest pain. She is on O2 normally has a home O2 at 3 L nasal cannula. She is complaining of some abdominal distention and Senokot will be added. Consult for Dr. Mccabe regarding left great toe wound. Patient is continued on IV vancomycin and oral Flagyl but is also on Bactrim from home. She has been afebrile, heart rate 83, blood pressure 109/49, pulse ox 91% on 3 L nasal cannula. Repeat blood work reveals creatinine of 1.8. Blood sugars are running between 113 187. Repeat blood work ordered for tomorrow. 09/01: Patient went into atrial fibrillation last evening now converted to sinus rhythm. Cardiology has started the patient on eliquis 2.5 mg twice daily and Toprol-XL increased to 75 mg daily. Brilinta changed to Plavix. Lasix is at 40 oral daily but yesterday patient had some hypoxia and was given Xanax and a dose of IV Lasix. She is currently prophylaxing 90% on 6 L nasal cannula. She has been afebrile, heart rate 84, blood pressure 104/73. Patient has been seen by Nae Mccabe with plan to continue vancomycin pharmacy to dose and Flagyl. Chest x- ray reveals reticulonodular infiltrates at the lung bases right greater than left. Correlate for pneumonia. Coronavirus PCR ordered and consult added for pulmonary medicine. Patient is afebrile, heart rate 84, blood pressure 104/73. Repeat blood work reveals WBC 10.3, hemoglobin 9.9, platelet count 255. Sodium 134, potassium 4.5, chloride 103, CO2 23, BUN 31 and creatinine 2.06. Blood sugar running between 101 and 233. Patient is scheduled to transfer to the cardiac stepdown unit. 09/02: She remains in intensive care unit waiting for bed on the cardiac stepdown unit. The patient has been seen by pulmonary medicine for chronic bronchial asthma and fluid overload, and pneumonia ruled out, plan to keep pulse ox between 88 and 92% at her baseline of 3 L nasal cannula. She is currently on 10 L nasal cannula at pulse ox of 90% to be weaned down today. Heart rate 115, afebrile, blood pressure 110/86. Patient received 2 doses of IV Lasix yesterday with improvement of her shortness of breath. Capillary blood glucose running between 107 and 149. Sodium 133, potassium 4.7, chloride 103, CO2 21, BUN 39 and creatinine 2.41. Probable calcitonin 0.34. Consult is in place with nephrology. Repeat chest x-ray reveals some improvement of the aeration left lung. Cardiomegaly and diffuse right lung reticulonodular opacities redemonstrated. REVIEW OF SYSTEMS Constitutional: No fever, no chills, no night sweats. No weight change. No weakness, Reports fatigue. No daytime sleepiness. EENT: No headache. No blurred vision or double vision, no loss of vision. No loss of Hearing, no ringing in the ears, no dizziness. No nasal drainage or congestion. No epistaxis. No sore throat. Lungs: Reports shortness of breathimproved, cough, no sputum production. No wheezing. Cardiovascular: No chest pain, no lower extremity edema. No palpitations. No paroxysmal nocturnal dyspnea. No orthopnea. No lightheadedness or dizziness. No syncopal episodes. Abdominal: No abdominal pain. No nausea, vomiting. No diarrhea. reportstipation. No bloody or tarry stools.. No loss of appetite. Genitourinary: No dysuria, increased frequency, urgency. No urinary retention. Musculoskeletal: No myalgias. No muscle weakness, no gait dysfunction, no frequent falls. No back pain. No neck pain. Integumentary: No wounds, no lesions. No rash or pruritus. No unusual bruising. No change in hair or nails. Neurologic: No aphasia. No facial droop. No change in mentation. No head injury. No headache. No paralysis. No paresthesia. Psychiatric: No depression. No anxiety. No mood swings. Endocrine: Mildly normal blood sugars. PHYSICAL EXAMINATION Gen: This is a 70-year-old obese female. She is resting in bed and appears to be fatigued and tired but improved from yesterday. HEENT: Head is atraumatic, normocephalic. Pupils equal, round. Sclerae is anicteric. NECK: Supple. No JVD. No lymphadenopathy. No thyromegaly. LUNGS: Diminished breath sounds, bilateral crackles. No wheezes or rhonchi. No intercostal retractions. HEART: Regular rate and rhythm. No murmur. ABDOMEN: Soft. Bowel sounds are present. No masses. No tenderness. EXTREMITIES: No pedal edema. No calf tenderness. Right great toe amputation, left toe amputation. Dressing in place to the left toe amputation site. NEUROLOGICAL: Patient is awake, alert and oriented x3. Cranial nerves 2 through 12 are grossly intact. ASSESSMENT AND PLAN 1. Acute inferior ST elevated myocardial infarction status post heart catheterization and stenting of the SVG to RCA. Patient to transfer to the cardiac stepdown unit. Continue aspirin 81 mg daily, Toprol-XL 75 mg daily, Plavix 75 mg daily, atorvastatin 80 mg at bedtime. 2. Diabetic and peripheral vascular disease foot ulcer with osteomyelitis status post stump revision. Patient is continued on IV vancomycin and oral Flagyl to complete a full 4 week course which will be completed on September 09. Consult with Dr. Mccabe appreciated. Bactrim will be discontinued. 3. Diabetes mellitus type 2, insulin requiring, uncontrolled with hyperglycemia. Continue Levemir 15 units twice daily and NovoLog scale and NovoLog scheduled will be resumed at 5 units with each meal. 4. New onset atrial fibrillation, paroxysmal atrial fibrillation. Metoprolol was increased to 75 mg daily, eliquis started. 5. Acute on chronic hypoxic respiratory failure secondary to mild systolic heart failure and pneumonia ruled out. COVID-19 testing negative. Pulmonary consult appreciated. Continue DuoNeb treatments 4 times daily as needed, Symbicort twice daily. Patient is status post IV Lasix currently on 40 mg oral daily. 6. Acute kidney injury. Consult with nephrology added. 7. Peripheral vascular disease with previous stenting of the right lower extremity. Patient regularly follows with Dr. Gregory. 8. Coronary artery disease with previous history of 4 vessel CABG. Patient's appliance painter and refinisher is Dr. Brown at [facility]. 9. Chronic systolic heart failure, stable. Continue Lasix 20 mg daily, losartan and Toprol-XL. 10. COPD. Continue DuoNeb treatment, Pulmicort, Singulair. 11. History of CVA, stable. 12. Hyperlipidemia. Continue atorvastatin 80 mg at bedtime 13. Hypertension. Continue losartan and 50 mg daily, amlodipine 10 mg daily. 14. Recurrent depression. Continue Cymbalta 60 mg daily 15. Chronic hypoxic respiratory failure on home O2 at 3 L. 16. Mild intermittent asthma, stable. 17. COVID-19 testing negative. Patient has been hospitalized during a pandemic. DISCHARGE PLAN Home with [facility]. Impression and plan of care have been directed as dictated by the signing physician. Emily Higginbotham nurse practitioner acting as scribe for signing physician. Objective - Vital Signs Vital signs: Vital Signs Temp 97.5 F L 09/02/20 08:00 Pulse 115 H 09/02/20 08:00 Resp 24 09/02/20 08:00 BP 110/86 09/02/20 08:00 Pulse Ox 90 L 09/02/20 08:00 Intake & Output 09/01/20 09/02/20 09/02/20 18:59 06:59 18:59 Intake Total 680 240 Output Total 950 900 Balance -270 -660 Weight 96 kg Intake: Oral 680 240 Output: Urine 950 900 Other: Voiding Method Bedside Commode Bedside Commode - Labs CBC & Chem 7: 09/01/20 04:08 09/02/20 04:00 Labs: Abnormal Lab Results - Last 24 Hours (Table) 09/01/20 09/01/20 09/01/20 Range/Units 04:08 12:08 17:20 Sodium (137-145) mmol/L Carbon Dioxide (22-30) mmol/L BUN (7-17) mg/dL Creatinine (0.52-1.04) mg/dL Glucose (74-99) mg/dL POC Glucose (mg/dL) 152 H 107 H (75-99) mg/dL Calcium (8.4-10.2) mg/dL Procalcitonin 0.34 H (0.02-0.09) ng/mL 09/01/20 09/02/20 09/02/20 Range/Units 20:23 04:00 06:17 Sodium 133 L (137-145) mmol/L Carbon Dioxide 21 L (22-30) mmol/L BUN 39 H (7-17) mg/dL Creatinine 2.41 H (0.52-1.04) mg/dL Glucose 144 H (74-99) mg/dL POC Glucose (mg/dL) 149 H 148 H (75-99) mg/dL Calcium 7.7 L (8.4-10.2) mg/dL Procalcitonin (0.02-0.09) ng/mL
[2020-09-02 11:59] LABS: Glucose,Whole Blood 214 mg/dL (75-99)
--- NOTE | 2020-09-02 12:39 | P.NPCON ---
History of Present Illness - Reason for Consult acute renal failure - Chief Complaint Chest pain and acute TX - History of Present Illness This 70-year-old female seen in consultation because of acute kidney injury and chronic kidney disease creatinine was 1.2 on 08/25/2020 She was admitted with chest pain and underwent urgent cardiac catheterization and stenting, on 08/29/2020. Ejection fraction is 40-45%. She is also on vancomycin. Her vancomycin levels are 25 yesterday and 27.5 today Currently she is feeling fairly well no chest pain completely resolved she is mildly short of breath on nasal cannula. Has poor appetite but no nausea vomiting no abdominal pain no dysuria frequency. No fever chills. She is known with diabetes mellitus, remote history of CVA in 2013, history of bilateral carotid endarterectomy history of CABG osteomyelitis of the right toe and amputation in 2014 and more recently in June she had left toe amputation and further had revision on 08/11/2020 discharged on IV vancomycin at home. No nausea vomiting diarrhea no nonsteroidals. Here her blood pressure is somewhat on the lower side, goes pressure documented is 82/42 on 08/29/2020 Past Medical History Past Medical History: Asthma, Coronary Artery Disease (CAD), Heart Failure, COPD, CVA/TIA, Diabetes Mellitus, Hyperlipidemia, Hypertension, Pneumonia, Rheumatoid Arthritis (RA) Additional Past Medical History / Comment(s): left GREAT TOE WOUND, with current dressing, partial amputation on 06/28/20. going to hyperbaric chamber 5 days a week, PICC line right arm Last Myocardial Infarction Date:: 2014 History of Any Multi-Drug Resistant Organisms: None Reported Past Surgical History: Adenoidectomy, Appendectomy, Coronary Bypass/CABG, Heart Catheterization, Tonsillectomy, Tubal Ligation Additional Past Surgical History / Comment(s): Open heart on April 13 2015, cabg X4, bilateral carotid endarterectomies,. Right great toe amputation 2014. stent in right leg above knee, elke cataracts. left toe ambutation, 06/18/20 Past Anesthesia/Blood Transfusion Reactions: Previous Problems w/ Anesthesia Additional Past Anesthesia/Blood Transfusion Reaction / Comment(s): diff breathing afterwards Past Psychological History: No Psychological Hx Reported Smoking Status: Former smoker Past Alcohol Use History: None Reported Past Drug Use History: None Reported - Past Family History Father Family Medical History: Coronary Artery Disease (CAD), CVA/TIA, Diabetes Mellitus Mother Additional Family Medical History / Comment(s): "spot on the lung" Medications and Allergies Home Medications Medication Instructions Recorded Confirmed Type Metoprolol Succinate [Toprol XL] 50 mg PO QAM 05/02/15 08/29/20 History Nitroglycerin Sl Tabs [Nitrostat] 0.4 mg SL Q5M PRN 05/02/15 08/29/20 History Aspirin 81 mg PO DAILY 04/15/17 08/29/20 History Simvastatin [Zocor] 40 mg PO HS 04/15/17 08/29/20 History amLODIPine [Norvasc] 10 mg PO HS 04/15/17 08/29/20 History Abatacept [Orencia] 125 mg SQ WE 05/07/19 08/29/20 History Albuterol Sulfate [Proair Hfa] 2 puff INHALATION RT-Q4H PRN 06/16/20 08/29/20 History Losartan [Cozaar] 50 mg PO QAM 06/16/20 08/29/20 History traMADol HCL 50 mg PO BID PRN 06/16/20 08/29/20 History Insulin Glargine,Hum.rec.anlog 15 unit SQ BID #0 06/26/20 08/29/20 Rx [Lantus Solostar] Budesonide [Pulmicort] 1 mg INHALATION RT-BID PRN 07/15/20 08/29/20 History Ipratropium-Albuterol Nebulize 3 ml INHALATION RT-QID PRN 07/15/20 08/29/20 History [Duoneb 0.5 mg-3 mg/3 ml Soln] Montelukast Sodium [Singulair] 10 mg PO HS 07/15/20 08/29/20 History Furosemide [Lasix] 20 mg PO DAILY #1 tab 08/14/20 08/29/20 Rx Vancomycin 1,500 mg IVPB Q24HR #28 vial 08/14/20 08/29/20 Rx metroNIDAZOLE [Flagyl] 500 mg PO TID #84 tab 08/14/20 08/29/20 Rx Cyclobenzaprine [Flexeril] 10 mg PO TID PRN 08/29/20 08/29/20 History DULoxetine HCL [Cymbalta] 60 mg PO DAILY 08/29/20 08/29/20 History Insulin Aspart [NovoLOG Flexpen] 10 units SQ AC-BID 08/29/20 08/29/20 History Insulin Aspart [NovoLOG Flexpen] 12 units SQ AC-LUNCH 08/29/20 08/29/20 History Potassium Chloride [Klor-Con 20] 20 meq PO DAILY 08/29/20 08/29/20 History Sulfamethoxazole/Trimethoprim 1 tab PO BID 08/29/20 08/29/20 History [Bactrim DS 800-160 mg] Apixaban [Eliquis] 2.5 mg PO BID #60 tab 09/01/20 Rx Allergies Allergy/AdvReac Type Severity Reaction Status Date / Time nickel Allergy Rash/Hives Verified 08/29/20 10:47 Physical Exam Vitals: Vital Signs Temp Pulse Resp BP Pulse Ox 09/02/20 08:00 97.5 F L 115 H 24 110/86 90 L 09/02/20 06:00 97.7 F 89 23 110/86 91 L 09/02/20 04:00 101 H 20 89 L 09/02/20 02:00 98.3 F 94 24 115/80 95 09/02/20 00:00 122 H 29 H 90 L 09/01/20 23:01 93 17 89 L 09/01/20 22:00 98.2 F 93 15 117/84 90 L 09/01/20 20:00 95 21 90 L 09/01/20 19:00 118 H 29 H 91 L 09/01/20 18:00 142 H 21 88 L 09/01/20 16:00 95 17 120/73 90 L Intake and Output 09/01/20 09/02/20 09/02/20 22:59 06:59 14:59 Intake Total 240 240 250 Output Total 650 700 2 Balance -410 -460 248 Intake: Oral 240 240 250 Output: Urine 650 700 1 Stool 1 Other: Voiding Method Bedside Commode Bedside Commode Weight 96 kg On examination is awake alert oriented cheerful HEENT exam no JVP neck is supple no facial asymmetry Lungs are significant for an occasional coarse crackle at bases not clear with cough Heart sounds are unremarkable for any murmur rub gallop Abdomen soft nontender somewhat obese. Extremity exam was no edema. She bilateral big toe amputated, more recent amputation on the left side. Neurologically awake alert oriented comfortable Results - Lab Results Most recent lab results Calcium 7.7 mg/dL (8.4-10.2) L 09/02/20 04:00 Magnesium 1.9 mg/dL (1.6-2.3) 08/29/20 10:51 09/01/20 04:08 09/02/20 04:00 Assessment and Plan Assessment: Impression 1. Acute kidney injury from a combination of acute TX heart catheterization and possibly vancomycin related nephrotoxicity with high levels. 2. Acute TX, urgent cardiac cath 08/29/2020 with stenting. 3. Left toe amputation July 02 and more recent revision 08/11/2020. On vancomycin IV 4. Mild degree of non-gap acidosis bicarb is 21 secondary to acute kidney injury 5. Anemia hemoglobin is down from 11.6-9.9 secondary to chronic kidney disease, acute illness Recommendation 1. Discontinue vancomycin and use alternative antibiotics 2. Maintain blood pressure, patient is not on any blood pressure medication but is on Lasix will hold that, as chest x-ray is not indicated of any congestive heart failure 3. Monitor labs and urine output and blood pressures. 4. Check orthostatic changes to see if she needs IV fluid Thank you for this consultation and will continue to follow closely
--- NOTE | 2020-09-02 12:53 | PN ---
PROGRESS NOTE Tracee is a 70-year-old lady who is admitted to hospital with acute myocardial infarction underwent cardiac catheterization and angioplasty. This patient still remains short of breath and is requiring 10 L of supplemental O2. Denies any chest pain. She had good urine output yesterday following Lasix. She is currently on aspirin Eliquis, Lipitor, Plavix, insulin, Cozaar, Toprol-XL. On exam, patient is afebrile. Heart rate is varying between 90-115, blood pressure is 110/86, respiratory is 24, O2 saturation is 90% on 10 L. There is no jugular venous distention. Chest exam reveals diminished air entry at the bases. Heart exam reveals first and second heart sounds, irregular rhythm and a systolic murmur at the left lower sternal border. Abdomen is soft. Exam of extremities reveals mild edema. Peripheral pulses are felt. Labs show a potassium of 4.7, creatinine is 2.4. ASSESSMENT: 1. Acute myocardial infarction. 2. Persistent atrial fibrillation. 3. Chronic obstructive pulmonary disease. PLAN: Continue current measures. Hopefully home on Friday. MMODL / IJN: [id number] /
[2020-09-02 16:40] LABS: Glucose,Whole Blood 126 mg/dL (75-99)
[2020-09-02 20:39] LABS: Glucose,Whole Blood 136 mg/dL (75-99)
[2020-09-02] MEDS: MONTELUKAST 10 MG TAB PO SCH (20:47)
[2020-09-02] MEDS: ATORVASTATIN 80 MG TAB PO SCH (20:47)
[2020-09-02] MEDS: CEFEPIME 2 GM in SODIUM CHLORIDE 0.9% 100 ML IVPB SCH (21:59)
--- NOTE | 2020-09-02 22:29 | PN ---
PROGRESS NOTE DATE OF SERVICE: 09/02/2020 REASON FOR FOLLOWUP: 1. Left big toe amputation site osteomyelitis. 2. Possible pneumonia. INTERVAL HISTORY: Patient is afebrile. The patient still complaining of shortness of breath. She did have a cough which is mild. Not bringing any sputum, no nausea, no vomiting. No abdominal pain or pain to the left big toe. PHYSICAL EXAMINATION: Her blood pressure is 108/54 with a pulse of 90, temperature 98.2. She is 90% on 10 L high-flow oxygen. General description is an elderly female lying in bed in no distress. Respiratory system: Unlabored breathing, decreased intensity in breath sounds. No wheeze. Heart S1, S2. Regular rate and rhythm. ABDOMEN: Soft, no tenderness. Left big toe is currently dressed up. No obvious drainage on the dressing. LABS: Did have slight worsening of the kidney function. Procalcitonin was mildly elevated. DIAGNOSTIC IMPRESSION AND PLAN: Patient with left big toe osteomyelitis with gram-positive and this patient has been on vancomycin, now did show worsening of her kidney function. Vancomycin discontinued. Antibiotic adjusted to the daptomycin with elevated procalcitonin and worsening of her respiratory status. Underlying pneumonia less likely but not entirely excluded. Will add cefepime for the gram-negative coverage. Try to obtain a sputum to narrow down antibiotics and monitor clinical course closely. Prognosis remains to be extremely guarded. MMODL / IJN: [id number] /
[2020-09-03 07:16] LABS: Glucose,Whole Blood 149 mg/dL (75-99)
[2020-09-03] MEDS: INSULIN DETEMIR (LEVEMIR) 100 UNIT/ML SYR SQ SCH ×2 (07:29→20:18)
[2020-09-03] MEDS: INSULIN ASPART (NovoLOG) 100 UNIT/ML VIAL SQ SCH ×7 (07:29→20:19)
[2020-09-03] MEDS: METOPROLOL SUCCINATE (ER) 25 MG TAB.ER.24H PO SCH (08:39)
[2020-09-03] MEDS: metroNIDAZOLE 500 MG TAB PO SCH ×3 (08:39→20:18)
[2020-09-03] MEDS: CLOPIDOGREL 75 MG TAB PO SCH (08:39)
[2020-09-03] MEDS: DULoxetine HCL 60 MG CAPSULE.DR PO SCH (08:39)
[2020-09-03] MEDS: APIXABAN 2.5 MG TABLET PO SCH ×2 (08:39→20:18)
[2020-09-03] MEDS: POTASSIUM CHLORIDE ER 20 MEQ TAB.ER PO SCH (08:39)
[2020-09-03] MEDS: ASPIRIN 81 MG PO SCH (08:40)
[2020-09-03] MEDS: LOSARTAN 50 MG TAB PO SCH (08:40)
[2020-09-03] MEDS: SENNOSIDES-DOCUSATE SODIUM 1 EACH TAB PO SCH (08:40)
[2020-09-03] MEDS: DAPTOmycin 500 MG in SODIUM CHLORIDE 0.9% 50 ML IVPB SCH (08:40)
[2020-09-03] MEDS: CEFEPIME 2 GM in SODIUM CHLORIDE 0.9% 100 ML IVPB SCH (08:40)
[2020-09-03] MEDS: METOPROLOL TARTRATE 5 MG/5 ML VIAL IVP PRN (09:12)
[2020-09-03] MEDS: SYMBICORT 160-4.5 MCG INHALER INHALATION SCH ×2 (11:05→20:07)
[2020-09-03] MEDS ORDERED: DILTIAZEM DRIP BOLUS FROM BAG 1 MG SOLN IV ONE (11:07)
--- NOTE | 2020-09-03 11:11 | P.PN ---
Subjective Progress Note Date: 09/03/20 Principal diagnosis: This is 70-year-old female seen in consultation because of acute kidney injury, secondary to combination of vancomycin and acute NE and cardiac catheterization. She was admitted with chest pain and underwent urgent cardiac catheterization on 08/29/2020 with stenting. She is known with diabetes bilateral amputations remotely the last one is on June 2020 with revision on 08/11/2020. She was on IV vancomycin. Her vital signs morning are stable she is afebrile, 24-hour intake is 920 output is 18 and 50 Creatinine is peaked at 2.41 yesterday on 08/31/2020 and is down to 2.36 this morning This morning is complaining of loose stools small amount but very frequent after getting some stool softeners. Her appetite is poor. She has no chest pain shortness of breath dizziness fever chills I had stopped her vancomycin currently she is on Cubicin and Cefipime Objective - Vital Signs Vital signs: Vital Signs Temp 98.2 F 09/03/20 08:00 Pulse 140 H 09/03/20 08:00 Resp 16 09/03/20 08:00 BP 122/71 09/03/20 08:00 Pulse Ox 94 L 09/03/20 09:22 Intake & Output 09/02/20 09/03/20 09/03/20 18:59 06:59 18:59 Intake Total 550 100 Output Total 4 Balance 546 100 Weight 95.7 kg Intake: Intake, IV Titration 100 Amount Cefepime 2 gm In Sodium 100 Chloride 0.9% 100 ml @ 25 mls/hr IVPB Q12HR PENDING SALE TO [facility] Rx #:[id number] Oral 550 Output: Urine 2 Stool 2 Other: Voiding Method Bedside Commode # Voids 1 # Bowel Movements 1 On examination awake alert oriented comfortable. HEENT exam no JVP neck is supple no facial asymmetry Lungs are clear to auscultation good air entry bilaterally Heart sounds unremarkable no murmur rub gallop Abdomen soft nontender Extremity exam was no edema Awake alert oriented - Labs CBC & Chem 7: 09/01/20 04:08 09/03/20 03:54 Labs: Abnormal Lab Results - Last 24 Hours (Table) 09/02/20 09/02/20 09/02/20 Range/Units 11:57 16:38 20:37 Creatinine (0.52-1.04) mg/dL POC Glucose (mg/dL) 214 H 126 H 136 H (75-99) mg/dL 09/03/20 09/03/20 Range/Units 03:54 07:15 Creatinine 2.36 H (0.52-1.04) mg/dL POC Glucose (mg/dL) 149 H (75-99) mg/dL Assessment and Plan Assessment: Impression 1. Acute kidney injury from a combination of acute NE heart catheterization and possibly vancomycin related nephrotoxicity with high levels. Creatinine improving good urine output. 2. Acute NE, urgent cardiac cath 08/29/2020 with stenting. 3. Left toe amputation July 02 and more recent revision 08/11/2020. On vancomycin IV, and discontinued 4. Mild degree of non-gap acidosis bicarb is 21 secondary to acute kidney injury 5. Anemia hemoglobin is down from 11.6-9.9 secondary to chronic kidney disease, acute illness Recommendation 1. Start IV fluids lactated Ringer's at 75 an hour because of the diarrhea and low intake 2. Maintain blood pressure between 110 systolic to 130s systolic, 3. Monitor labs and urine output and blood pressures.
[2020-09-03] MEDS: DILTIAZEM 125 MG in SODIUM CHLORIDE 0.9% 100 ML IV SCH (11:23)
[2020-09-03 11:33] LABS: Glucose,Whole Blood 144 mg/dL (75-99)
[2020-09-03] MEDS: LACTATED RINGERS 1,000 ML IV SCH (11:44)
--- NOTE | 2020-09-03 12:50 | P.PN ---
Subjective Progress Note Date: 09/03/20 Principal diagnosis: Shortness of breath. Pulmonary consultation dated 09/01/2020. 70-year-old female that typically sees Dr. Rojas for her chronic bronchial asthma. The patient came in to the wound center, for hyperbaric treatment, on August 29. Apparently that time, she was having shortness of breath, and chest pain. She was immediately sent to the emergency room. She was thought to have an ST segment elevation myocardial infarction, and with the catheterization laboratory and had stents placed. She's in the intensive care unit now. She is on 6 L nasal cannula. Normally she wears 2-3 L. Anyway, we are asked to see her because of the worsening shortness of breath, and to rule out pneumonia. The patient denies any fever or chills. The patient denies cough or phlegm production. Her chest x-ray lipase and shows borderline cardiomegaly and some interstitial changes and small effusions consistent with heart failure. In addition, her troponins were elevated, and her BMP was elevated as well. In my opinion, nothing really points towards pneumonia as an etiology of her worsening shortness of breath. In addition, it does not appear that her asthma is parti cularly active this time also. She's not wheezing, or having any chest tightness. The patient states that she was recently in the hospital 3 weeks ago with an episode of heart failure as well. Her medical history includes hypertension, CAD, hyperlipidemia, asthma, diabetes, and nonhealing ulcers of the lower extremities. The patient also has a history of CVA, rheumatoid arthritis, and previous amputations of the digits of the foot for nonhealing wounds. White count 10.3, hemoglobin 9.9, hematocrit 28.6, and platelet count 255,000. Sodium 134, potassium 4.5, chlorides 103, CO2 23, anion gap is 8, BUN 31, creatinine 2.06. N-terminal proBNP is 4600. Troponins were 34.2 and 59.7 respectively. Progress note dated 09/02/2020. 70-year-old female with a history of chronic bronchial asthma. The patient was admitted to the hospital via the emergency room, with ST segment elevation myoca rdial infarction. She had stents placed in the catheterization laboratory. She came to the intensive care unit for further monitoring and treatment. She was thought to possibly have pneumonia. We thought her problem was primarily heart failure. She responded very nicely to Lasix therapy. She is resting comfortably now. She is on high flow nasal O2 at 10 L. She's not receiving any IV fluids. Labs today include a sodium 133 potassium 4.7, chlorides 103, CO2 21, and anion gap of 9. BUN and creatinine were 39 and 2.41 respectively. Pro- calcitonin level was 0.34. Chest x-ray is improved. Progress note dated 09/03/2020. 70-year-old female again seen in the intensive care unit, room 258. She has a history of chronic bronchial asthma. She was admitted to the hospital through the emergency room, with ST segment elevation myocardial infarction. She had stents placed in the catheterization laboratory. She came back to the intensive care unit for further monitoring and treatment. She was thought to have pneumonia, for which we were consulted. We felt the problem was primarily CHF/heart failure. The patient has responded very nicely to Lasix therapy. Currently resting comfortably. She is on cefepime HEENT and daptomycin for a foot wound. She's not receiving any IV fluids. She is on 6 L nasal O2. Cardizem will be started for atrial fibrillation. She denies any chest pain. Currently, her glucose is 144 and her creatinine is 2.36. The x-rays from the and are reviewed. Objective - Vital Signs Vital signs: Vital Signs Temp 98.2 F 09/03/20 08:00 Pulse 90 09/03/20 12:00 Resp 18 09/03/20 12:00 BP 122/71 09/03/20 08:00 Pulse Ox 91 L 09/03/20 12:00 Intake & Output 09/02/20 09/03/20 09/03/20 18:59 06:59 18:59 Intake Total 550 100 Output Total 4 Balance 546 100 Weight 95.7 kg Intake: Intake, IV Titration 100 Amount Cefepime 2 gm In Sodium 100 Chloride 0.9% 100 ml @ 25 mls/hr IVPB Q12HR [facility] Rx #:[id number] Oral 550 Output: Urine 2 Stool 2 Other: Voiding Method Bedside Commode # Voids 1 # Bowel Movements 1 - Exam No acute distress, oriented 3. Currently on 6 L nasal cannula. Saturations 94 %. HEENT examination is grossly unremarkable. . Neck supple. Full range of motion. No adenopathy thyromegaly or neck vein distention. Cardiovascular examination reveals irregular rhythm and rate. S1-S2 normal. No S3 or S4. No discernible murmur noted. Heart rate 140 bpm. Heart sounds are di stant. Lungs reveal mild bibasilar crackles. No wheezes or rhonchi. Breath sounds equal bilaterally.. Abdomen soft bowel sounds are heard. No masses or tenderness. Extremities are intact. No cyanosis clubbing or edema. Skin is without rash or lesion. Neurologic examination is brief but nonfocal. - Labs CBC & Chem 7: 09/01/20 04:08 09/03/20 03:54 Labs: Abnormal Lab Results - Last 24 Hours (Table) 09/02/20 09/02/20 09/03/20 Range/Units 16:38 20:37 03:54 Creatinine 2.36 H (0.52-1.04) mg/dL POC Glucose (mg/dL) 126 H 136 H (75-99) mg/dL 09/03/20 09/03/20 Range/Units 07:15 11:32 Creatinine (0.52-1.04) mg/dL POC Glucose (mg/dL) 149 H 144 H (75-99) mg/dL Assessment and Plan Assessment: Shortness of breath, which I believe to be related to mild CHF, secondary to her recent ST segment elevation myocardial infarction. Status post recent stenting of the SVG to RCA, on August 29. Atrial fibrillation with rapid ventricular response. ST segment elevation myocardial infarction. History of hypertension. History of hyperlipidemia. History of chronic bronchial asthma. History of diabetes mellitus. History of CAD, status post bypass grafting 4 vessels, 2014. History of CVA. History of rheumatoid arthritis. Nonhealing ulcer/wound of the left great toe. Previous amputations of the digits of her foot for nonhealing ulcers. Plan: Plan dated 09/01/2020. In my opinion, there is no evidence of pneumonia in this patient. The patient is receiving vancomycin for her wounds on her foot. A pro-calcitonin levels is ordered. No additional recommendations are made at this time. We will continue to follow and offer an opinion, where appropriate. Currently, her asthma was not active. Plan dated 09/02/2020. Currently, the patient seemed to be a bit more comfortable after receiving Lasix that I gave yesterday. Her chest x-ray certainly improved. Her pro-calcitonin is a bit elevated but in my opinion there is no evidence of active pulmonary infection. The only infection currently is the foot. For that, the patient's on vancomycin. She is receiving medications for her asthma. Additional recommendations and suggestions are forthcoming. We will continue to follow. Prognosis is guarded. Plan dated 09/03/2020. Currently, the patient's having an issue with atrial fibrillation with rapid ventricular response. She was given some beta sonya without much benefit. Her heart rate about 140 bpm. She remains on cefepime and daptomycin for her wound infection. The patient will likely be given Cardizem probably in the form of a Cardizem drip. The patient's on 6 L nasal cannula. Her breathing is improved. She's not receiving any IV fluids. We will continue to follow make recommendations where appropriate. Additional recommendations and suggestions are forthcoming. Time with Patient: Greater than 30
--- NOTE | 2020-09-03 12:50 | CONS ---
HAKAN Easley is a is 70-year-old lady who is admitted to the hospital with acute myocardial infarction and underwent cardiac catheterization and angioplasty of the venous graft to the right coronary artery. She also has persistent atrial fibrillation. Her shortness of breath has improved and she does not have chest pain. However, this morning she developed a tachyarrhythmia. Heart rate is in the 150s per minute, what appears like an atrial flutter with 2:1 conduction. PHYSICAL EXAMINATION: Heart rate is 150 beats per minute, blood pressure is 122/71, respiratory rate is 18. Chest exam reveals occasional rhonchi bilaterally. Heart exam reveals first and second heart sounds. No murmur. Abdomen is soft. Exam of extremities reveals mild edema. Peripheral pulses are felt. LABS: Show that BUN is 39, creatinine is 2.4, potassium is 4.7. The patient is currently on Toprol-XL 75 mg daily, Cozaar 50 mg daily, aspirin, Lipitor, and Eliquis along with her nebulizers. ASSESSMENT: 1. Persistent atrial fibrillation with poorly controlled ventricular rate. 2. Acute myocardial infarction status post catheterization and angioplasty. 3. Chronic obstructive pulmonary disease exacerbation. 4. Renal insufficiency. PLAN: I will give IV Lopressor, wait and see if the Toprol-XL will control her heart rate. If not, we will add Cardizem 30 p.o. q 8. MMODL / IJN: [id number] /
--- NOTE | 2020-09-03 13:08 | P.PN ---
Subjective Progress Note Date: 09/03/20 HISTORY OF PRESENT ILLNESS This is a 70-year-old female patient of Dr. Sanderson with past medical history of diabetes mellitus type 2, hypertension, hyperlipidemia, CVA in 2013 with no residuals, coronary artery disease status post 4 vessel CABG, bilateral carotid endarterectomies, mild intermittent asthma, osteomyelitis status post right great toe amputation 2014 and left toe amputation in June 2020 with revision on August [address] Gregory and patient was discharged home on August 12 with plan for IV vancomycin and oral Flagyl for 4 weeks, remote history of tobacco use area patient came in the hospital due to chest pain that started in the midsternal area and radiated to her left shoulder blade. She also had nausea which has continued. She denies having any epigastric pain. No blood in her stools. She came into the hospital for evaluation and was diagnosed with ST elevated myocardial infarction and was taken directly to the cardiac seed laboratory assistant by Dr. Soto. Heart catheterization revealed occluded SVG to the RCA. Patient subsequently underwent PTCA with successful stenting of the SVG to RCA which was done by Dr. Plata. She then went to the intensive care unit where she is seen this morning. She states the chest pain is completely gone. She continues to have nausea. She states her commissioned security officer is Dr. walsh at [facility]. 90% on 2 L nasal cannula. Initial hemoglobin 0.6, white count 8.2, platelet count 239. INR 0.9. Electrolytes normal. BUN 33 and creatinine 1.51. Blood sugar initially 301. Blood sugar is now 170. Magnesium 1.9, total bilirubin 0.4, AST 206, ALT 25, alkaline phosphatase 30. Initial troponin 34.2. ProBNP 4600. Coronavirus PCR not detected. Echocardiogram reveals EF of 40-45%, moderate concentric left hypertrophy, mild aortic valve sclerosis, mild mitral regurgitation. 08/31: Remains in the intensive care unit by scheduled for transfer to the cardiac stepdown unit. She denies having any chest pain. She is on O2 normally has a home O2 at 3 L nasal cannula. She is complaining of some abdominal distention and Senokot will be added. Consult for Dr. Mccabe regarding left great toe wound. Patient is continued on IV vancomycin and oral Flagyl but is also on Bactrim from home. She has been afebrile, heart rate 83, blood pressure 109/49, pulse ox 91% on 3 L nasal cannula. Repeat blood work reveals creatinine of 1.8. Blood sugars are running between 113 187. Repeat blood work ordered for tomorrow. 09/01: Patient went into atrial fibrillation last evening now converted to sinus rhythm. Cardiology has started the patient on eliquis 2.5 mg twice daily and Toprol-XL increased to 75 mg daily. Brilinta changed to Plavix. Lasix is at 40 oral daily but yesterday patient had some hypoxia and was given Xanax and a dose of IV Lasix. She is currently prophylaxing 90% on 6 L nasal cannula. She has been afebrile, heart rate 84, blood pressure 104/73. Patient has been seen by Nae Mccabe with plan to continue vancomycin pharmacy to dose and Flagyl. Chest x- ray reveals reticulonodular infiltrates at the lung bases right greater than left. Correlate for pneumonia. Coronavirus PCR ordered and consult added for pulmonary medicine. Patient is afebrile, heart rate 84, blood pressure 104/73. Repeat blood work reveals WBC 10.3, hemoglobin 9.9, platelet count 255. Sodium 134, potassium 4.5, chloride 103, CO2 23, BUN 31 and creatinine 2.06. Blood sugar running between 101 and 233. Patient is scheduled to transfer to the cardiac stepdown unit. 09/02: She remains in intensive care unit waiting for bed on the cardiac stepdown unit. The patient has been seen by pulmonary medicine for chronic bronchial asthma and fluid overload, and pneumonia ruled out, plan to keep pulse ox between 88 and 92% at her baseline of 3 L nasal cannula. She is currently on 10 L nasal cannula at pulse ox of 90% to be weaned down today. Heart rate 115, afebrile, blood pressure 110/86. Patient received 2 doses of IV Lasix yesterday with improvement of her shortness of breath. Capillary blood glucose running between 107 and 149. Sodium 133, potassium 4.7, chloride 103, CO2 21, BUN 39 and creatinine 2.41. Probable calcitonin 0.34. Consult is in place with nephrology. Repeat chest x-ray reveals some improvement of the aeration left lung. Cardiomegaly and diffuse right lung reticulonodular opacities redemonstrated. 09/03: Patient is seen today in the intensive care unit still waiting for bed on the cardiac stepdown unit. She is sitting up in recliner and appears to have mild shortness of breath. She denies having shortness of breath. Heart rate is at 140s, monitoring manager atrial fibrillation. Cardiology is following and is planning for a dose of IV Lopressor and if that is not successful, oral Cardizem. Patient has been seen by nephrology and recommended changing vancomycin to daptomycin. Repeat creatinine today is at 2.36. Blood sugars are running between 120 149. REVIEW OF SYSTEMS Constitutional: No fever, no chills, no night sweats. No weight change. No weakness, Reports fatigue. No daytime sleepiness. EENT: No headache. No blurred vision or double vision, no loss of vision. No loss of Hearing, no ringing in the ears, no dizziness. No nasal drainage or congestion. No epistaxis. No sore throat. Lungs: Reports shortness of breathimproved, cough, no sputum production. No wheezing. Cardiovascular: No chest pain, no lower extremity edema. Reports palpitations. No paroxysmal nocturnal dyspnea. No orthopnea. No lightheadedness or dizziness. No syncopal episodes. Abdominal: No abdominal pain. No nausea, vomiting. No diarrhea. reportstipation. No bloody or tarry stools.. No loss of appetite. Genitourinary: No dysuria, increased frequency, urgency. No urinary retention. Musculoskeletal: No myalgias. No muscle weakness, no gait dysfunction, no frequent falls. No back pain. No neck pain. Integumentary: No wounds, no lesions. No rash or pruritus. No unusual bruising. No change in hair or nails. Neurologic: No aphasia. No facial droop. No change in mentation. No head injury. No headache. No paralysis. No paresthesia. Psychiatric: No depression. No anxiety. No mood swings. Endocrine: Mildly normal blood sugars. PHYSICAL EXAMINATION Gen: This is a 70-year-old obese female. She is resting in recliner and appears to be fatigued and tired. HEENT: Head is atraumatic, normocephalic. Pupils equal, round. Sclerae is anicteric. NECK: Supple. No JVD. No lymphadenopathy. No thyromegaly. LUNGS: Diminished breath sounds, bilateral crackles. No intercostal retractions. HEART: Irregularly irregular rate and rhythm. No murmur. ABDOMEN: Soft. Bowel sounds are present. No masses. No tenderness. EXTREMITIES: No pedal edema. No calf tenderness. Right great toe amputation, left toe amputation. Dressing in place to the left toe amputation site. NEUROLOGICAL: Patient is awake, alert and oriented x3. Cranial nerves 2 through 12 are grossly intact. ASSESSMENT AND PLAN 1. Acute inferior ST elevated myocardial infarction status post heart catheterization and stenting of the SVG to RCA. Patient to transfer to the cardiac stepdown unit. Continue aspirin 81 mg daily, Toprol-XL 75 mg daily, Plavix 75 mg daily, atorvastatin 80 mg at bedtime. 2. Diabetic and peripheral vascular disease foot ulcer with osteomyelitis status post stump revision. Patient is continued on IV vancomycin changed to daptomycin and continue oral Flagyl to complete a full 4 week course which will be completed on September 09. Consult with Dr. Mccabe appreciated. Bactrim will be discontinued. 3. Diabetes mellitus type 2, insulin requiring, uncontrolled with hyperglycemia. Continue Levemir 15 units twice daily and NovoLog scale and NovoLog scheduled will be resumed at 5 units with each meal. 4. New onset atrial fibrillation, paroxysmal atrial fibrillation. Metoprolol was increased to 75 mg daily, eliquis started. IV metoprolol ordered if not improved heart rate Cardizem oral to be started at 30 mg every 8 hours 5. Acute on chronic hypoxic respiratory failure secondary to mild systolic heart failure and pneumonia ruled out. COVID-19 testing negative. Pulmonary consult appreciated. Continue DuoNeb treatments 4 times daily as needed, Symbicort twice daily. Patient is status post IV Lasix and oral Lasix discontinued. 6. Acute kidney injury. Consult with nephrology appreciated. 7. Peripheral vascular disease with previous stenting of the right lower extremity. Patient regularly follows with Dr. Gregory. 8. Coronary artery disease with previous history of 4 vessel CABG. Patient's commissioned security officer is Dr. Brown at [facility]. 9. Chronic systolic heart failure, stable. Continue Lasix 20 mg daily, losartan and Toprol-XL. 10. COPD. Continue DuoNeb treatment, Pulmicort, Singulair. 11. History of CVA, stable. 12. Hyperlipidemia. Continue atorvastatin 80 mg at bedtime 13. Hypertension. Continue losartan and 50 mg daily, amlodipine 10 mg daily. 14. Recurrent depression. Continue Cymbalta 60 mg daily 15. Chronic hypoxic respiratory failure on home O2 at 3 L. 16. Mild intermittent asthma, stable. 17. COVID-19 testing negative. Patient has been hospitalized during a pandemic. DISCHARGE PLAN Home with [facility]. Impression and plan of care have been directed as dictated by the signing physician. Emily Higginbotham nurse practitioner acting as scribe for signing physician. Objective - Vital Signs Vital signs: Vital Signs Temp 98.2 F 09/03/20 08:00 Pulse 140 H 09/03/20 08:00 Resp 16 09/03/20 08:00 BP 122/71 09/03/20 08:00 Pulse Ox 94 L 09/03/20 09:22 Intake & Output 09/02/20 09/03/20 09/03/20 18:59 06:59 18:59 Intake Total 550 100 Output Total 4 Balance 546 100 Weight 95.7 kg Intake: Intake, IV Titration 100 Amount Cefepime 2 gm In Sodium 100 Chloride 0.9% 100 ml @ 25 mls/hr IVPB Q12HR [facility] Rx #:[id number] Oral 550 Output: Urine 2 Stool 2 Other: Voiding Method Bedside Commode # Voids 1 # Bowel Movements 1 - Labs CBC & Chem 7: 09/01/20 04:08 09/03/20 03:54 Labs: Abnormal Lab Results - Last 24 Hours (Table) 09/02/20 09/02/20 09/02/20 Range/Units 11:57 16:38 20:37 Creatinine (0.52-1.04) mg/dL POC Glucose (mg/dL) 214 H 126 H 136 H (75-99) mg/dL 09/03/20 09/03/20 Range/Units 03:54 07:15 Creatinine 2.36 H (0.52-1.04) mg/dL POC Glucose (mg/dL) 149 H (75-99) mg/dL
[2020-09-03 16:48] LABS: Glucose,Whole Blood 128 mg/dL (75-99)
[2020-09-03 20:12] LABS: Glucose,Whole Blood 225 mg/dL (75-99)
[2020-09-03] MEDS: CEFEPIME 1 GM in SODIUM CHLORIDE 0.9% 50 ML IVPB SCH (20:18)
[2020-09-03] MEDS: ATORVASTATIN 80 MG TAB PO SCH (20:18)
[2020-09-03] MEDS: MONTELUKAST 10 MG TAB PO SCH (20:18)
[2020-09-03] MEDS: traMADol 50 MG TAB PO PRN (20:27)
--- NOTE | 2020-09-03 21:35 | PN ---
PROGRESS NOTE DATE OF SERVICE: 09/03/2020 REASON FOR FOLLOW UP: 1. Left big toe amputation site osteomyelitis. 2. Pneumonia. INTERVAL HISTORY: Patient is afebrile. The patient is breathing comfortably. The patient denies having any chest pain. Did have a cough, not bringing up any sputum. No vomiting. No abdominal pain or diarrhea. PHYSICAL EXAMINATION: Blood pressure 101/52 with a pulse of 73, temperature 98.2. He is 92% on 8 L nasal cannula. General description is an elderly female up in the bed in no distress. Respiratory system: Unlabored breathing, decreased breath sounds at the base. No wheeze. HEART: S1, S2. Regular rate and rhythm. ABDOMEN: Soft, no tenderness. Left foot is currently dressed up. No obvious drainage on the dressing. LABS: BUN is 23, creatinine is 0.36. DIAGNOSTIC IMPRESSION AND PLAN: 1. Patient with left big toe osteomyelitis status post amputation with subsequent evidence of amputation site swelling. The patient antibiotic adjusted to daptomycin because of worsening of the kidney function. monitor closely. Inflammatory markers will be rechecked. 2. Question of pneumonia, covered with cefepime. Try to obtain a sputum and continue supportive care. MMODL / IJN: [id number] /
[2020-09-04] MEDS: DILTIAZEM 125 MG in SODIUM CHLORIDE 0.9% 100 ML IV SCH ×2 (00:03→17:05)
[2020-09-04] MEDS: LACTATED RINGERS 1,000 ML IV SCH (00:03)
[2020-09-04] MEDS: METOPROLOL TARTRATE 5 MG/5 ML VIAL IVP PRN (03:47)
[2020-09-04 04:34] LABS: Calcium 8.2 mg/dL (8.4-10.2); Potassium 4.4 mmol/L (3.5-5.1)
[2020-09-04] MEDS: INSULIN ASPART (NovoLOG) 100 UNIT/ML VIAL SQ SCH ×7 (07:01→20:57)
[2020-09-04] MEDS: INSULIN DETEMIR (LEVEMIR) 100 UNIT/ML SYR SQ SCH ×2 (07:01→20:57)
[2020-09-04] MEDS: SYMBICORT 160-4.5 MCG INHALER INHALATION SCH ×2 (07:37→19:08)
[2020-09-04] MEDS: DULoxetine HCL 60 MG CAPSULE.DR PO SCH (08:36)
[2020-09-04] MEDS: CLOPIDOGREL 75 MG TAB PO SCH (08:36)
[2020-09-04] MEDS: metroNIDAZOLE 500 MG TAB PO SCH ×3 (08:36→20:56)
[2020-09-04] MEDS: METOPROLOL SUCCINATE (ER) 25 MG TAB.ER.24H PO SCH (08:36)
[2020-09-04] MEDS: SENNOSIDES-DOCUSATE SODIUM 1 EACH TAB PO SCH (08:36)
[2020-09-04] MEDS: ASPIRIN 81 MG PO SCH (08:37)
[2020-09-04] MEDS: CEFEPIME 1 GM in SODIUM CHLORIDE 0.9% 50 ML IVPB SCH ×2 (08:37→20:56)
[2020-09-04] MEDS: APIXABAN 2.5 MG TABLET PO SCH ×2 (08:37→20:56)
--- NOTE | 2020-09-04 09:41 | P.PN ---
Subjective Progress Note Date: 09/04/20 Principal diagnosis: Coronary artery disease/paroxysmal atrial fibrillation This is a 70-year-old female patient was coronary artery disease and prior open heart surgery with bypasses as well as hypertension and dyslipidemia and paroxysmal atrial fibrillation presented to the hospital with a chest discomfort and was diagnosed with acute inferior ST patient myocardial infarction which she underwent an emergent heart catheterization was found acute total occlusion of a larger graft to the RCA was a large thrombus burden beach she underwent an aspiration thrombectomy manually and mechanically. The patient subsequently went into atrial fibrillation with RVR. She was seen this morning. She continues to be in atrial flutter/supraventricular tachycardia with a heart rate around 140 bpm she is on oral anticoagulation. The oral anticoagulation was interrupted for 2 days a round the procedure. I advised the patient to go through a PARAM and cardioversion and I spoke with Dr. Charles tovar wearing to do the procedure tomorrow morning. Meanwhile she is on dual antiplatelet therapy. Objective - Vital Signs Vital signs: Vital Signs Temp 97.9 F 09/04/20 04:00 Pulse 125 H 09/04/20 04:00 Resp 16 09/04/20 04:00 BP 108/68 09/04/20 04:00 Pulse Ox 92 L 09/04/20 04:00 Intake & Output 09/03/20 09/04/20 09/04/20 18:59 06:59 18:59 Intake Total 375 1635 Output Total 400 Balance 375 1235 Weight 96.4 kg Intake: IV 75 1200 Lactated Ringers 1,000 ml 75 1200 @ 75 mls/hr IV .[id number] [facility] Rx#:[id number] Intake, IV Titration 195 Amount Cefepime 2 gm In Sodium 100 Chloride 0.9% 100 ml @ 25 mls/hr IVPB Q12HR [facility] Rx #:[id number] Diltiazem 125 mg In 95 Sodium Chloride 0.9% 100 ml @ 7.5 MG/HR 7.5 mls/hr IV .[id number] [facility] Rx#: [id number] Oral 300 240 Output: Urine 400 Other: # Voids 4 2 # Bowel Movements 3 - Constitutional General appearance: Present: no acute distress - Respiratory Respiratory: bilateral: CTA - Cardiovascular Rhythm: regular Heart sounds: normal: S1, S2 - Labs CBC & Chem 7: 09/01/20 04:08 09/04/20 03:56 Labs: Abnormal Lab Results - Last 24 Hours (Table) 09/03/20 09/03/20 09/03/20 Range/Units 11:32 16:47 20:11 Sodium (137-145) mmol/L Carbon Dioxide (22-30) mmol/L BUN (7-17) mg/dL Creatinine (0.52-1.04) mg/dL Glucose (74-99) mg/dL POC Glucose (mg/dL) 144 H 128 H 225 H (75-99) mg/dL Calcium (8.4-10.2) mg/dL C-Reactive Protein (<1.0) mg/dL 09/04/20 09/04/20 Range/Units 03:56 03:56 Sodium 134 L (137-145) mmol/L Carbon Dioxide 15 L (22-30) mmol/L BUN 50 H (7-17) mg/dL Creatinine 2.05 H (0.52-1.04) mg/dL Glucose 104 H (74-99) mg/dL POC Glucose (mg/dL) (75-99) mg/dL Calcium 8.2 L (8.4-10.2) mg/dL C-Reactive Protein 19.5 H (<1.0) mg/dL Assessment and Plan Assessment: Assessment #1 acute coronary syndrome #2 atrial flutter/SVT with uncontrolled heart rate #3 multiple comorbid conditions Plan #1 continue the current medical regimen #2 proceed with a PARAM/cardioversion #3 follow-up with the patient
--- NOTE | 2020-09-04 10:02 | XR ---
EXAMINATION TYPE: XR chest 1V portable DATE OF EXAM: 09/04/2020 COMPARISON: Chest x-ray 09/02/2020 HISTORY: Dyspnea TECHNIQUE: Single frontal view of the chest is obtained. FINDINGS: Patient is post median sternotomy. Left-sided PICC line shows the distal tip overlying sup erior vena cava. The heart is enlarged. There is some prominence interstitium bilaterally. Some minim al blunting the right costophrenic angle is noted. There is no evident pneumothorax. There are overly ing artifacts. IMPRESSION: Correlate for pulmonary venous hypertension and interstitial edema. Difficult to exclude small effusion.
--- NOTE | 2020-09-04 10:21 | P.PN ---
Subjective Patient is seen in follow for acute kidney injury. Renal function better. Blood pressure stable. Remains in A. fib. On Cardizem drip and Lopressor. On 7 L high flow cannula. No vomiting or diarrhea. Vital signs are stable. General: The patient appeared well nourished and normally developed. HEENT: Head exam is unremarkable. On nasal cannula. LUNGS: Breath sounds decreased. HEART: Irregular rate and rhythm. ABDOMEN: Soft, no distention. EXTREMITITES: Trace edema. Objective - Vital Signs Vital signs: Vital Signs Temp 97.9 F 09/04/20 04:00 Pulse 125 H 09/04/20 04:00 Resp 16 09/04/20 04:00 BP 108/68 09/04/20 04:00 Pulse Ox 92 L 09/04/20 04:00 Intake & Output 09/03/20 09/04/20 09/04/20 18:59 06:59 18:59 Intake Total 375 1635 Output Total 400 Balance 375 1235 Weight 96.4 kg Intake: IV 75 1200 Lactated Ringers 1,000 ml 75 1200 @ 75 mls/hr IV .[id number] JAY Rx#:[id number] Intake, IV Titration 195 Amount Cefepime 2 gm In Sodium 100 Chloride 0.9% 100 ml @ 25 mls/hr IVPB Q12HR JAY Rx #:[id number] Diltiazem 125 mg In 95 Sodium Chloride 0.9% 100 ml @ 7.5 MG/HR 7.5 mls/hr IV .[id number] JAY Rx#: [id number] Oral 300 240 Output: Urine 400 Other: # Voids 4 2 # Bowel Movements 3 - Labs CBC & Chem 7: 09/01/20 04:08 09/04/20 03:56 Labs: Abnormal Lab Results - Last 24 Hours (Table) 09/03/20 09/03/20 09/03/20 Range/Units 11:32 16:47 20:11 Sodium (137-145) mmol/L Carbon Dioxide (22-30) mmol/L BUN (7-17) mg/dL Creatinine (0.52-1.04) mg/dL Glucose (74-99) mg/dL POC Glucose (mg/dL) 144 H 128 H 225 H (75-99) mg/dL Calcium (8.4-10.2) mg/dL C-Reactive Protein (<1.0) mg/dL 09/04/20 09/04/20 Range/Units 03:56 03:56 Sodium 134 L (137-145) mmol/L Carbon Dioxide 15 L (22-30) mmol/L BUN 50 H (7-17) mg/dL Creatinine 2.05 H (0.52-1.04) mg/dL Glucose 104 H (74-99) mg/dL POC Glucose (mg/dL) (75-99) mg/dL Calcium 8.2 L (8.4-10.2) mg/dL C-Reactive Protein 19.5 H (<1.0) mg/dL Assessment and Plan Plan: Assessment: 1. Acute kidney injury secondary to ATN secondary to contrast-induced acute kidney injury, hemodynamic instability and vancomycin. Renal function improving. Creatinine 2.05 today. Baseline creatinine near 1. 2. Metabolic acidosis secondary to acute kidney injury and IV fluids. 3. A. fib with RVR maintained on Cardizem drip and Lopressor. Cardiology following. 4. Chronic systolic CHF with ejection fraction of 40-45%. 5. Acute NE status post cardiac catheterization with stent placement on 08/29/2020. Plan: Stop lactated Ringer's. Start bicarb drip at 50 mL an hour. Stop losartan and potassium supplementation. Continue to monitor renal function and urine output.
[2020-09-04] MEDS: DEXTROSE 5% IN WATER 1,000 ML with SOD BICARB SYR 8.4% (1 MEQ/ML) 150 ML IV SCH (10:59)
[2020-09-04 11:34] LABS: Glucose,Whole Blood 140 mg/dL (75-99)
--- NOTE | 2020-09-04 11:52 | P.PN ---
Subjective Progress Note Date: 09/04/20 Principal diagnosis: Shortness of breath 70-year-old female that typically sees Dr. Rojas for her chronic bronchial asthma. The patient came in to the wound center, for hyperbaric treatment, on August 29. Apparently that time, she was having shortness of breath, and chest pain. She was immediately sent to the emergency room. She was thought to have an ST segment elevation myocardial infarction, and with the catheterization laboratory and had stents placed. She's in the intensive care unit now. She is on 6 L nasal cannula. Normally she wears 2-3 L. Anyway, we are asked to see her because of the worsening shortness of breath, and to rule out pneumonia. The patient denies any fever or chills. The patient denies cough or phlegm production. Her chest x-ray lipase and shows borderline cardiomegaly and some interstitial changes and small effusions consistent with heart failure. In addition, her troponins were elevated, and her BMP was elevated as well. In my opinion, nothing really points towards pneumonia as an etiology of her worsening shortness of breath. In addition, it does not appear that her asthma is particularly active this time also. She's not wheezing, or having any chest tightness. The patient states that she was recently in the hospital 3 weeks ago with an episode of heart failure as well. Her medical history includes hypertension, CAD, hyperlipidemia, asthma, diabetes, and nonhealing ulcers of the lower extremities. The patient also has a history of CVA, rheumatoid arthritis, and previous amputations of the digits of the foot for nonhealing wounds. White count 10.3, hemoglobin 9.9, hematocrit 28.6, and platelet count 255,000. Sodium 134, potassium 4.5, chlorides 103, CO2 23, anion gap is 8, BUN 31, creatinine 2.06. N-terminal proBNP is 4600. Troponins were 34.2 and 59.7 respectively. Progress note dated 09/02/2020. 70-year-old female with a history of chronic bronchial asthma. The patient was admitted to the hospital via the emergency room, with ST segment elevation myocardial infarction. She had stents placed in the catheterization laboratory. She came to the intensive care unit for further monitoring and treatment. She was thought to possibly have pneumonia. We thought her problem was primarily heart failure. She responded very nicely to Lasix therapy. She is resting comfortably now. She is on high flow nasal O2 at 10 L. She's not receiving any IV fluids. Labs today include a sodium 133 potassium 4.7, chlorides 103, CO2 21, and anion gap of 9. BUN and creatinine were 39 and 2.41 respectively. Pro- calcitonin level was 0.34. Chest x-ray is improved. Progress note dated 09/03/2020. 70-year-old female again seen in the intensive care unit, room 258. She has a history of chronic bronchial asthma. She was admitted to the hospital through the emergency room, with ST segment elevation myocardial infarction. She had stents placed in the catheterization laboratory. She came back to the intensive care unit for further monitoring and treatment. She was thought to have pneumonia, for which we were consulted. We felt the problem was primarily CHF/heart failure. The patient has responded very nicely to Lasix therapy. Currently resting comfortably. She is on cefepime HEENT and daptomycin for a foot wound. She's not receiving any IV fluids. She is on 6 L nasal O2. Cardizem will be started for atrial fibrillation. She denies any chest pain. Currently, her glucose is 144 and her creatinine is 2.36. The x-rays from the and are reviewed. On 09/04/2020 patient seen in follow-up in the intensive care unit. She is awake and alert, oriented 3, she is currently on 6 L of oxygen her pulse ox is 90-92%, she is mildly short of breath with conversation, but appears to be in no acute respiratory distress. She remains in A. fib and the rate is tachycardic with a heart rate between 125-140 BPM, she is on Eliquis for 2.5 mg twice daily for anticoagulation and she is on Cardizem at 10 mg per hour. She's been afebrile, she is not requiring any vasopressor support, today's chest x-ray shows pulmonary venous hypertension and interstitial edema and a small pleural e ffusion on the right was difficult to exclude. Patient is on lactated Ringer's had a rate of 75 ML per hour, she's had no nausea vomiting or diarrhea. Patient remains on antibiotics with a combination of cefepime and daptomycin for recent history of osteomyelitis in her left big toe, status post recent amputation of the left great toe. ID service is following. The area of amputated toe is heal ing well. The incision is clean dry and intact, no drainage. These labs have been reviewed, ESR is elevated at 126, and CRP also remains elevated at 19.5. Sodium is 134, potassium is 4.4, CO2 is 15, BUN is 50, and creatinine is 2.05. Urology is following and recommended to switch to IV fluids from lactated Ringer's to bicarbonate infusion with D5W with 3 A of bicarbonate at a rate of 50 ML per hour. Objective - Vital Signs Vital signs: Vital Signs Temp 97.9 F 09/04/20 04:00 Pulse 125 H 09/04/20 04:00 Resp 16 09/04/20 04:00 BP 108/68 09/04/20 04:00 Pulse Ox 92 L 09/04/20 04:00 Intake & Output 09/03/20 09/04/20 09/04/20 18:59 06:59 18:59 Intake Total 375 1635 Output Total 400 Balance 375 1235 Weight 96.4 kg Intake: IV 75 1200 Lactated Ringers 1,000 ml 75 1200 @ 75 mls/hr IV .[id number] JAY Rx#:[id number] Intake, IV Titration 195 Amount Cefepime 2 gm In Sodium 100 Chloride 0.9% 100 ml @ 25 mls/hr IVPB Q12HR JAY Rx #:[id number] Diltiazem 125 mg In 95 Sodium Chloride 0.9% 100 ml @ 7.5 MG/HR 7.5 mls/hr IV .[id number] JAY Rx#: [id number] Oral 300 240 Output: Urine 400 Other: # Voids 4 2 # Bowel Movements 3 - Exam GENERAL EXAM: Alert, very pleasant, 70-year-old white female, on 6 L of oxygen the pulse ox of 92%, comfortable in no apparent distress. HEAD: Normocephalic/atraumatic. EYES: Normal reaction of pupils, equal size. Conjunctiva pink, sclera white. NOSE: Clear with pink turbinates. THROAT: No erythema or exudates. NECK: No masses, no JVD, no thyroid enlargement, no adenopathy. CHEST: No chest wall deformity. Symmetrical expansion. LUNGS: Equal air entry with mild expiratory wheezes CVS: Irregular rate and rhythm, normal S1 and S2, no gallops, no murmurs, no rubs ABDOMEN: Soft, nontender. No hepatosplenomegaly, normal bowel sounds, no guarding or rigidity. EXTREMITIES: No clubbing, no edema, no cyanosis, 2+ pulses and upper and lower extremities. MUSCULOSKELETAL: Muscle strength and tone normal. Patient has bilateral great toes amputated, incisions are clean dry and intact, well-healed SPINE: No scoliosis or deformity SKIN: No rashes CENTRAL NERVOUS SYSTEM: Alert and oriented -3. No focal deficits, tone is normal in all 4 extremities. PSYCHIATRIC: Alert and oriented -3. Appropriate affect. Intact judgment and insight. - Labs CBC & Chem 7: 09/01/20 04:08 09/04/20 03:56 Labs: Abnormal Lab Results - Last 24 Hours (Table) 09/03/20 09/03/20 09/04/20 Range/Units 16:47 20:11 03:56 ESR 126 H (0-30) mm/Hr Sodium (137-145) mmol/L Carbon Dioxide (22-30) mmol/L BUN (7-17) mg/dL Creatinine (0.52-1.04) mg/dL Glucose (74-99) mg/dL POC Glucose (mg/dL) 128 H 225 H (75-99) mg/dL Calcium (8.4-10.2) mg/dL C-Reactive Protein (<1.0) mg/dL 09/04/20 09/04/20 09/04/20 Range/Units 03:56 03:56 11:33 ESR (0-30) mm/Hr Sodium 134 L (137-145) mmol/L Carbon Dioxide 15 L (22-30) mmol/L BUN 50 H (7-17) mg/dL Creatinine 2.05 H (0.52-1.04) mg/dL Glucose 104 H (74-99) mg/dL POC Glucose (mg/dL) 140 H (75-99) mg/dL Calcium 8.2 L (8.4-10.2) mg/dL C-Reactive Protein 19.5 H (<1.0) mg/dL Assessment and Plan Plan: Assessment: #1. Acute inferior wall ST elevated myocardial infarction, status post heart catheterization and angioplasty of the SVG to the RCA #2. Acute exacerbation of chronic congestive heart failure. COVID-19 PCR was negative #3. A. fib with RVR #4. Acute kidney injury #5. Chronic systolic CHF with ejection fraction of 40-45% #6. Metabolic acidosis related to RADHA #7. Recent history of left big toe amputation site related to osteomyelitis in June 2020, patient remains on daptomycin and cefepime, had been on vancomycin and oral Flagyl for 4 weeks prior to admission #8. Diabetes type 2 poorly controlled #9. History of chronic bronchial asthma, mild intermittent #10. Status post four-vessel bypass grafting #11. History of carotid artery disease with bilateral carotid endarterectomy #12. Previous history of right great toe amputation in 2014 #13. Peripheral vascular disease with previous stenting of the right lower extremity #14. History of CVA Plan: Continue antibiotics per ID service recommendations Today's chest x-ray has been reviewed Switch lactated Ringer's to D5W with 3 A of bicarbonate at 50 ML per hour Continue inhalers and nebulized treatments Continue oral anticoagulation Cardiology recommendations for heart rate control Continue close monitoring in the intensive care unit Weaning FiO2 maintaining O2 saturations had her above 90% We'll continue to follow I performed a history & physical examination of the patient and discussed their management with my nurse practitioner, Debo Young. I reviewed the nurse practitioner's note and agree with the documented findings and plan of care. Lung sounds are positive for diminished breath sounds. The findings and the impression was discussed with the patient. I attest to the documentation by the nurse practitioner. Time with Patient: Greater than 30
--- NOTE | 2020-09-04 12:10 | P.PN ---
Subjective Progress Note Date: 09/04/20 HISTORY OF PRESENT ILLNESS This is a 70-year-old female patient of Dr. Sanderson with past medical history of diabetes mellitus type 2, hypertension, hyperlipidemia, CVA in 2013 with no residuals, coronary artery disease status post 4 vessel CABG, bilateral carotid endarterectomies, mild intermittent asthma, osteomyelitis status post right great toe amputation 2014 and left toe amputation in June 2020 with revision on August [address] Gregory and patient was discharged home on August 12 with plan for IV vancomycin and oral Flagyl for 4 weeks, remote history of tobacco use area patient came in the hospital due to chest pain that started in the midsternal area and radiated to her left shoulder blade. She also had nausea which has continued. She denies having any epigastric pain. No blood in her stools. She came into the hospital for evaluation and was diagnosed with ST elevated myocardial infarction and was taken directly to the cardiac microbiological laboratory technician by Dr. Soto. Heart catheterization revealed occluded SVG to the RCA. Patient subsequently underwent PTCA with successful stenting of the SVG to RCA which was done by Dr. Plata. She then went to the intensive care unit where she is seen this morning. She states the chest pain is completely gone. She continues to have nausea. She states her xerox machine mechanic is Dr. walsh at [place]. 90% on 2 L nasal cannula. Initial hemoglobin 0.6, white count 8.2, platelet count 239. INR 0.9. Electrolytes normal. BUN 33 and creatinine 1.51. Blood sugar initially 301. Blood sugar is now 170. Magnesium 1.9, total bilirubin 0.4, AST 206, ALT 25, alkaline phosphatase 30. Initial troponin 34.2. ProBNP 4600. Coronavirus PCR not detected. Echocardiogram reveals EF of 40-45%, moderate concentric left hypertrophy, mild aortic valve sclerosis, mild mitral regurgitation. 08/31: Remains in the intensive care unit by scheduled for transfer to the cardiac stepdown unit. She denies having any chest pain. She is on O2 normally has a home O2 at 3 L nasal cannula. She is complaining of some abdominal distention and Senokot will be added. Consult for Dr. Mccabe regarding left great toe wound. Patient is continued on IV vancomycin and oral Flagyl but is also on Bactrim from home. She has been afebrile, heart rate 83, blood pressure 109/49, pulse ox 91% on 3 L nasal cannula. Repeat blood work reveals creatinine of 1.8. Blood sugars are running between 113 187. Repeat blood work ordered for tomorrow. 09/01: Patient went into atrial fibrillation last evening now converted to sinus rhythm. Cardiology has started the patient on eliquis 2.5 mg twice daily and Toprol-XL increased to 75 mg daily. Brilinta changed to Plavix. Lasix is at 40 oral daily but yesterday patient had some hypoxia and was given Xanax and a dose of IV Lasix. She is currently prophylaxing 90% on 6 L nasal cannula. She has been afebrile, heart rate 84, blood pressure 104/73. Patient has been seen by Nae Mccabe with plan to continue vancomycin pharmacy to dose and Flagyl. Chest x- ray reveals reticulonodular infiltrates at the lung bases right greater than left. Correlate for pneumonia. Coronavirus PCR ordered and consult added for pulmonary medicine. Patient is afebrile, heart rate 84, blood pressure 104/73. Repeat blood work reveals WBC 10.3, hemoglobin 9.9, platelet count 255. Sodium 134, potassium 4.5, chloride 103, CO2 23, BUN 31 and creatinine 2.06. Blood sugar running between 101 and 233. Patient is scheduled to transfer to the cardiac stepdown unit. 09/02: She remains in intensive care unit waiting for bed on the cardiac stepdown unit. The patient has been seen by pulmonary medicine for chronic bronchial asthma and fluid overload, and pneumonia ruled out, plan to keep pulse ox between 88 and 92% at her baseline of 3 L nasal cannula. She is currently on 10 L nasal cannula at pulse ox of 90% to be weaned down today. Heart rate 115, afebrile, blood pressure 110/86. Patient received 2 doses of IV Lasix yesterday with improvement of her shortness of breath. Capillary blood glucose running between 107 and 149. Sodium 133, potassium 4.7, chloride 103, CO2 21, BUN 39 and creatinine 2.41. Probable calcitonin 0.34. Consult is in place with nephrology. Repeat chest x-ray reveals some improvement of the aeration left lung. Cardiomegaly and diffuse right lung reticulonodular opacities redemonstrated. 09/03: Patient is seen today in the intensive care unit still waiting for bed on the cardiac stepdown unit. She is sitting up in recliner and appears to have mild shortness of breath. She denies having shortness of breath. Heart rate is at 140s, protective signal installer atrial fibrillation. Cardiology is following and is planning for a dose of IV Lopressor and if that is not successful, oral Cardizem. Patient has been seen by nephrology and recommended changing vancomycin to daptomycin. Repeat creatinine today is at 2.36. Blood sugars are running between 120 149. 09/04: Patient remains in the intensive care unit waiting for cardiac stepdown unit bed. She continues to have heart rate in the 140s, atrial fibrillation and cardiology has started her on Cardizem drip. There is tentative plan for electrocardioversion tomorrow. Patient denies any new complaints today. Pulse ox is running 90-92% on 6 L nasal cannula. She's been afebrile, blood pressure 104/50. Blood work today reveals sed rate of 126, C-reactive protein 19.5. BUN 15 creatinine 2.05. Blood sugars are running between 128 and 225. Potassium 4.4, CO2 15. Repeat chest x-ray reveals pulmonary venous hypertension and interstitial edema. Difficult to exclude small effusion. Nephrology started bicarb drip. Losartan and potassium are on hold. REVIEW OF SYSTEMS Constitutional: No fever, no chills, no night sweats. No weight change. No weakness, Reports fatigue. No daytime sleepiness. EENT: No headache. No blurred vision or double vision, no loss of vision. No loss of Hearing, no ringing in the ears, no dizziness. No nasal drainage or congestion. No epistaxis. No sore throat. Lungs: Reports shortness of breathimproved, cough, no sputum production. No wheezing. Cardiovascular: No chest pain, no lower extremity edema. Reports palpitations. No paroxysmal nocturnal dyspnea. No orthopnea. No lightheadedness or dizziness. No syncopal episodes. Abdominal: No abdominal pain. No nausea, vomiting. No diarrhea. reportstipation. No bloody or tarry stools.. No loss of appetite. Genitourinary: No dysuria, increased frequency, urgency. No urinary retention. Musculoskeletal: No myalgias. No muscle weakness, no gait dysfunction, no f requent falls. No back pain. No neck pain. Integumentary: Reports left great toe wounds, no lesions. No rash or pruritus. No unusual bruising. No change in hair or nails. Neurologic: No aphasia. No facial droop. No change in mentation. No head injury. No headache. No paralysis. No paresthesia. Psychiatric: No depression. No anxiety. No mood swings. Endocrine: Mildly normal blood sugars. PHYSICAL EXAMINATION Gen: This is a 70-year-old obese female. She is resting in recliner and appears to be fatigued and tired. HEENT: Head is atraumatic, normocephalic. Pupils equal, round. Sclerae is anicteric. NECK: Supple. No JVD. No lymphadenopathy. No thyromegaly. LUNGS: Diminished breath sounds, bilateral crackles. No intercostal retractions. HEART: Irregularly irregular rate and rhythm. No murmur. ABDOMEN: Soft. Bowel sounds are present. No masses. No tenderness. EXTREMITIES: No pedal edema. No calf tenderness. Right great toe amputation, left toe amputation. Dressing in place to the left toe amputation site. NEUROLOGICAL: Patient is awake, alert and oriented x3. Cranial nerves 2 through 12 are grossly intact. ASSESSMENT AND PLAN 1. Acute inferior ST elevated myocardial infarction status post heart catheterization and stenting of the SVG to RCA. Patient to transfer to the cardiac stepdown unit. Continue aspirin 81 mg daily, Toprol-XL 75 mg daily, Plavix 75 mg daily, atorvastatin 80 mg at bedtime. 2. Diabetic and peripheral vascular disease foot ulcer with osteomyelitis status post stump revision. Patient is continued daptomycin and continue oral Flagyl to complete a full 4 week course which will be completed on September 09. Consult with Dr. Mccabe appreciated. Bactrim will be discontinued. 3. Diabetes mellitus type 2, insulin requiring, uncontrolled with hyperglycemia. Continue Levemir 15 units twice daily and NovoLog scale and NovoLog scheduled will be resumed at 5 units with each meal. 4. New onset atrial fibrillation with RVR, paroxysmal atrial fibrillation. Continue Toprol-XL 75 mg daily, eliquis 2.5 mg twice daily, Cardizem drip started, possible electrocardioversion tomorrow. 5. Acute on chronic hypoxic respiratory failure secondary to mild systolic heart failure and pneumonia ruled out. COVID-19 testing negative. Pulmonary consult appreciated. Continue DuoNeb treatments 4 times daily as needed, Symbicort twice daily. Patient is status post IV Lasix and oral Lasix discon tinued. 6. Acute kidney injury with metabolic acidosis. Consult with nephrology appreciated. Losartan and potassium on hold. Bicarb drip started. 7. Peripheral vascular disease with previous stenting of the right lower extremity. Patient regularly follows with Dr. Gregory. 8. Coronary artery disease with previous history of 4 vessel CABG. Patient's xerox machine mechanic is Dr. Brown at [facility]. 9. Chronic systolic heart failure, stable. Continue Lasix 20 mg daily, losartan and Toprol-XL. 10. COPD. Continue DuoNeb treatment, Pulmicort, Singulair. 11. History of CVA, stable. 12. Hyperlipidemia. Continue atorvastatin 80 mg at bedtime 13. Hypertension. Continue Toprol-XL.. 14. Recurrent depression. Continue Cymbalta 60 mg daily 15. Chronic hypoxic respiratory failure on home O2 at 3 L. 16. Mild intermittent asthma, stable. 17. COVID-19 testing negative. Patient has been hospitalized during a pandemic. DISCHARGE PLAN Home with [facility]. Impression and plan of care have been directed as dictated by the signing physician. Emily Higginbotham nurse practitioner acting as scribe for signing physician. Objective - Vital Signs Vital signs: Vital Signs Temp 97.9 F 09/04/20 04:00 Pulse 125 H 09/04/20 04:00 Resp 16 09/04/20 04:00 BP 108/68 09/04/20 04:00 Pulse Ox 92 L 09/04/20 04:00 Intake & Output 09/03/20 09/04/20 09/04/20 18:59 06:59 18:59 Intake Total 375 1635 Output Total 400 Balance 375 1235 Weight 96.4 kg Intake: IV 75 1200 Lactated Ringers 1,000 ml 75 1200 @ 75 mls/hr IV .[id number] JAY Rx#:[id number] Intake, IV Titration 195 Amount Cefepime 2 gm In Sodium 100 Chloride 0.9% 100 ml @ 25 mls/hr IVPB Q12HR JAY Rx #:[id number] Diltiazem 125 mg In 95 Sodium Chloride 0.9% 100 ml @ 7.5 MG/HR 7.5 mls/hr IV .[id number] JAY Rx#: [id number] Oral 300 240 Output: Urine 400 Other: # Voids 4 2 # Bowel Movements 3 - Labs CBC & Chem 7: 09/01/20 04:08 09/04/20 03:56 Labs: Abnormal Lab Results - Last 24 Hours (Table) 09/03/20 09/03/20 09/03/20 Range/Units 11:32 16:47 20:11 Sodium (137-145) mmol/L Carbon Dioxide (22-30) mmol/L BUN (7-17) mg/dL Creatinine (0.52-1.04) mg/dL Glucose (74-99) mg/dL POC Glucose (mg/dL) 144 H 128 H 225 H (75-99) mg/dL Calcium (8.4-10.2) mg/dL C-Reactive Protein (<1.0) mg/dL 09/04/20 09/04/20 Range/Units 03:56 03:56 Sodium 134 L (137-145) mmol/L Carbon Dioxide 15 L (22-30) mmol/L BUN 50 H (7-17) mg/dL Creatinine 2.05 H (0.52-1.04) mg/dL Glucose 104 H (74-99) mg/dL POC Glucose (mg/dL) (75-99) mg/dL Calcium 8.2 L (8.4-10.2) mg/dL C-Reactive Protein 19.5 H (<1.0) mg/dL
[2020-09-04] MEDS ORDERED: FUROSEMIDE 10 MG/ML 10 ML VIAL IV STA (13:33)
[2020-09-04] MEDS: ALBUTEROL HFA INHALER INHALATION PRN ×2 (15:35→19:07)
[2020-09-04 17:13] LABS: Glucose,Whole Blood 178 mg/dL (75-99)
[2020-09-04] MEDS: methylPREDNISolone SOD SUCCI 125 MG/2 ML VIAL IV SCH ×2 (17:56→23:27)
[2020-09-04 20:02] LABS: Glucose,Whole Blood 205 mg/dL (75-99)
[2020-09-04] MEDS: FUROSEMIDE 10 MG/ML 10 ML VIAL IV SCH (20:56)
[2020-09-04] MEDS: ATORVASTATIN 80 MG TAB PO SCH (20:56)
[2020-09-04] MEDS: MONTELUKAST 10 MG TAB PO SCH (20:56)
--- NOTE | 2020-09-04 23:11 | PN ---
PROGRESS NOTE DATE OF SERVICE: 09/04/2020 REASON FOR FOLLOWUP: 1. Left big toe amputation site osteomyelitis. 2. Pneumonia. INTERVAL HISTORY: The patient is currently afebrile. The patient is breathing slightly comfortably. The patient denies having any chest pain. She does have a cough, not bringing up any sputum. No abdominal pain or diarrhea. PHYSICAL EXAMINATION: Blood pressure 125/75 with a pulse of 80, temperature 98.3. General description is an elderly female lying in bed in no distress. RESPIRATORY SYSTEM: Unlabored breathing. Coarse breath sounds bilaterally. No wheeze. HEART: S1, S2. Regular rate and rhythm. ABDOMEN: Soft. No tenderness. Left foot is currently dressed. No obvious drainage on the dressing. LABS: BUN of 50, creatinine 2.05. Sed rate and CRP are still elevated. DIAGNOSTIC IMPRESSION AND PLAN: Patient with left big toe amputation site osteomyelitis consult. Patient was on vancomycin. That was transitioned to daptomycin because of her worsening kidney function. There was a question of pneumonia; covered with cefepime. She seems to have slight worsening of her respiratory status and will need to be monitored closely. Will monitor her CPK levels, as the patient is currently on Lipitor with recent cardiac event and continue supportive care. MMODL / IJN: [id number] /
[2020-09-05] MEDS: DILTIAZEM 125 MG in SODIUM CHLORIDE 0.9% 100 ML IV SCH (01:26)
[2020-09-05 03:56] LABS: Basophils % (A) 0 %; Eosinophils % (A) 1 %; HCT 27.2 % (34.0-46.0); HGB 9.3 gm/dL (11.4-16.0); Lymphocytes # (A) 0.4 k/uL (1.0-4.8); Lymphocytes % (A) 8 %; MCH 31.4 pg (25.0-35.0); MCHC 34.3 g/dL (31.0-37.0); MCV 91.4 fL (80.0-100.0); Mean Platelet Volume 7.2; Monocytes # (A) 0.1 k/uL (0-1.0); Monocytes % (A) 3 %; Neutrophils # (A) 4.3 k/uL (1.3-7.7); Neutrophils % (A) 89 %; Platelet Count 355 k/uL (150-450); RBC 2.97 m/uL (3.80-5.40); RDW 13.6 % (11.5-15.5); WBC 4.9 k/uL (3.8-10.6)
[2020-09-05 04:27] LABS: Albumin 3.1 g/dL (3.5-5.0); Calcium 8.3 mg/dL (8.4-10.2); Potassium 4.4 mmol/L (3.5-5.1); Total Bilirubin 0.4 mg/dL (0.2-1.3); Total Protein 5.8 g/dL (6.3-8.2)
[2020-09-05 06:18] LABS: Glucose,Whole Blood 315 mg/dL (75-99)
[2020-09-05] MEDS: methylPREDNISolone SOD SUCCI 125 MG/2 ML VIAL IV SCH (06:32)
[2020-09-05] MEDS: INSULIN DETEMIR (LEVEMIR) 100 UNIT/ML SYR SQ SCH ×2 (06:35→20:36)
[2020-09-05] MEDS: INSULIN ASPART (NovoLOG) 100 UNIT/ML VIAL SQ SCH ×7 (06:35→20:36)
[2020-09-05] MEDS: SYMBICORT 160-4.5 MCG INHALER INHALATION SCH ×2 (07:56→20:41)
--- NOTE | 2020-09-05 08:18 | XR ---
EXAMINATION TYPE: XR chest 1V portable DATE OF EXAM: 09/05/2020 COMPARISON: Chest x-ray 09/04/2020 HISTORY: Abnormal chest x-ray, assess lungs TECHNIQUE: Single frontal view of the chest is obtained. FINDINGS: Bibasilar patchy increased attenuation is present, there is blunting of the costophrenic a ngles. Heart remains enlarged. Interstitium is increased. No evident pneumothorax. Patient is post me margarita sternotomy. There are overlying leads. Left-sided PICC line is present, distal tip coursing to t he level of the superior vena cava. IMPRESSION: Correlate for congestive heart failure, interstitial edema, there may be small pleural e ffusions, cardiomegaly and postop change
[2020-09-05] MEDS: CEFEPIME 1 GM in SODIUM CHLORIDE 0.9% 50 ML IVPB SCH ×2 (08:26→20:37)
[2020-09-05] MEDS: METOPROLOL SUCCINATE (ER) 25 MG TAB.ER.24H PO SCH (08:28)
[2020-09-05] MEDS: DULoxetine HCL 60 MG CAPSULE.DR PO SCH (08:28)
[2020-09-05] MEDS: ASPIRIN 81 MG PO SCH (08:28)
[2020-09-05] MEDS: CLOPIDOGREL 75 MG TAB PO SCH (08:28)
[2020-09-05] MEDS: APIXABAN 2.5 MG TABLET PO SCH ×2 (08:28→20:01)
[2020-09-05] MEDS: FUROSEMIDE 10 MG/ML 10 ML VIAL IV SCH ×2 (08:30→20:01)
[2020-09-05] MEDS: metroNIDAZOLE 500 MG TAB PO SCH ×2 (08:30→17:09)
[2020-09-05] MEDS: SENNOSIDES-DOCUSATE SODIUM 1 EACH TAB PO SCH (08:43)
[2020-09-05] MEDS ORDERED: DILTIAZEM 125 MG in SODIUM CHLORIDE 0.9% 100 ML IV SCH (09:00)
[2020-09-05] MEDS ORDERED: METOPROLOL SUCCINATE (ER) 25 MG TAB.ER.24H PO STA (09:26)
--- NOTE | 2020-09-05 09:39 | P.PN ---
Subjective Progress Note Date: 09/05/20 70-year-old female that typically sees Dr. Rojas for her chronic bronchial asthma. The patient came in to the wound center, for hyperbaric treatment, on August 29. Apparently that time, she was having shortness of breath, and chest pain. She was immediately sent to the emergency room. She was thought to have an ST segment elevation myocardial infarction, and with the catheterization laboratory and had stents placed. She's in the intensive care unit now. She is on 6 L nasal cannula. Normally she wears 2-3 L. Anyway, we are asked to see her because of the worsening shortness of breath, and to rule out pneumonia. The patient denies any fever or chills. The patient denies cough or phlegm prod uction. Her chest x-ray lipase and shows borderline cardiomegaly and some interstitial changes and small effusions consistent with heart failure. In addition, her troponins were elevated, and her BMP was elevated as well. In my opinion, nothing really points towards pneumonia as an etiology of her worsening shortness of breath. In addition, it does not appear that her asthma is particularly active this time also. She's not wheezing, or having any chest tightness. The patient states that she was recently in the hospital 3 weeks ago with an episode of heart failure as well. Her medical history includes hypertension, CAD, hyperlipidemia, asthma, diabetes, and nonhealing ulcers of the lower extremities. The patient also has a history of CVA, rheumatoid arthritis, and previous amputations of the digits of the foot for nonhealing wounds. White count 10.3, hemoglobin 9.9, hematocrit 28.6, and platelet count 255,000. Sodium 134, potassium 4.5, chlorides 103, CO2 23, anion gap is 8, BUN 31, creatinine 2.06. N-terminal proBNP is 4600. Troponins were 34.2 and 59.7 respectively. Progress note dated 09/02/2020. 70-year-old female with a history of chronic bronchial asthma. The patient was admitted to the hospital via the emergency room, with ST segment elevation myocardial infarction. She had stents placed in the catheterization laboratory. She came to the intensive care unit for further monitoring and treatment. She was thought to possibly have pneumonia. We thought her problem was primarily heart failure. She responded very nicely to Lasix therapy. She is resting comfortably now. She is on high flow nasal O2 at 10 L. She's not receiving any IV fluids. Labs today include a sodium 133 potassium 4.7, chlorides 103, CO2 21, and anion gap of 9. BUN and creatinine were 39 and 2.41 respectively. Pro- calcitonin level was 0.34. Chest x-ray is improved. Progress note dated 09/03/2020. 70-year-old female again seen in the intensive care unit, room 258. She has a history of chronic bronchial asthma. She was admitted to the hospital through the emergency room, with ST segment elevation myocardial infarction. She had stents placed in the catheterization laboratory. She came back to the intensive care unit for further monitoring and treatment. She was thought to have pneumonia, for which we were consulted. We felt the problem was primarily CHF/heart failure. The patient has responded very nicely to Lasix therapy. Currently resting comfortably. She is on cefepime HEENT and daptomycin for a foot wound. She's not receiving any IV fluids. She is on 6 L nasal O2. Cardizem will be started for atrial fibrillation. She denies any chest pain. C urrently, her glucose is 144 and her creatinine is 2.36. The x-rays from the and are reviewed. On 09/04/2020 patient seen in follow-up in the intensive care unit. She is awake and alert, oriented 3, she is currently on 6 L of oxygen her pulse ox is 90-92%, she is mildly short of breath with conversation, but appears to be in no acute respiratory distress. She remains in A. fib and the rate is tachycardic with a heart rate between 125-140 BPM, she is on Eliquis for 2.5 mg twice daily for anticoagulation and she is on Cardizem at 10 mg per hour. She's been afebrile, she is not requiring any vasopressor support, today's chest x-ray shows pulmonary venous hypertension and interstitial edema and a small pleural effusion on the right was difficult to exclude. Patient is on lactated Ringer's had a rate of 75 ML per hour, she's had no nausea vomiting or diarrhea. Patient remains on antibiotics with a combination of cefepime and daptomycin for recent history of osteomyelitis in her left big toe, status post recent amputation of the left great toe. ID service is following. The area of amputated toe is healing well. The incision is clean dry and intact, no drainage. These labs have been reviewed, ESR is elevated at 126, and CRP also remains elevated at 19.5. Sodium is 134, potassium is 4.4, CO2 is 15, BUN is 50, and creatinine is 2.05. Urology is following and recommended to switch to IV fluids from lactated Ringer's to bicarbonate infusion with D5W with 3 A of bicarbonate at a rate of 50 ML per hour. 09/05/2020, the patient is being seen for follow-up. Yesterday, the patient had worsening shortness of breath and she decompensated and afternoon. I reevalu ated her. She was in pulmonary edema. She was started on tachycardia. She was also bronchospastic and wheezy. At that point, I give the patient another dose of Lasix. I started on IV Solu-Medrol. She did respond also to high flow oxygen and she was placed on high flow oxygen with an FiO2 of 80% and a flow of 60 L per minute. This morning she is doing much better. Her heart rate has slowed down significantly. She converted into normal sinus rhythm and the patient is currently on Cardizem 5 mg an hour drip, amiodarone was discontinued and the patient is still on Eliquis 2.5 mg by mouth twice a day for long-term anticoagulation. She was given Lasix. Fluid balance has been essentially 0 balance the patient remains on Lasix 60 mg IV every 12 hours. The patient is also on a bicarb infusion with a total of 150 mEq of sodium bicarb running at the rate of 50 mL an hour. Her serum bicarb is up to 17 on today's evaluation. Creatinine is down to 1.8. Nephrology is also on the case regarding her kidney failure. The patient remains on broad-spectrum antibiotics regarding osteomyeli tis of the left big toe that was already amputated and the patient remains on a combination of cefepime, daptomycin and she is afebrile hemodynamically stable and the surgical wound site is dry clean and intact without any evidence of drainage. The patient's pulse ox is currently 96% on an FiO2 of 80% with a flow of 60 L. Objective - Vital Signs Vital signs: Vital Signs Temp 98.7 F 09/05/20 08:00 Pulse 75 09/05/20 08:00 Resp 38 H 09/05/20 08:00 BP 119/67 09/05/20 08:00 Pulse Ox 94 L 09/05/20 08:00 Intake & Output 09/04/20 09/05/20 09/05/20 18:59 06:59 18:59 Intake Total 707.125 712.625 100 Output Total 700 700 400 Balance 7.125 12.625 -300 Weight 97.2 kg Intake: Intake, IV Titration 347.125 712.625 100 Amount Cefepime 1 gm In Sodium 50 Chloride 0.9% 50 ml @ 12. 5 mls/hr IVPB Q12HR JAY Rx#:[id number] Dextrose 5% in Water 1, 250 600 100 000 ml @ 50 mls/hr IV . Q23H JAY with Sod Bicarb Syr 8.4% (1 Meq/ml) 150 ml Rx#:[id number] Diltiazem 125 mg In 97.125 62.625 Sodium Chloride 0.9% 100 ml @ 7.5 MG/HR 7.5 mls/hr IV .[id number] JAY Rx#: [id number] Oral 360 Output: Urine 700 700 400 Other: Voiding Method Bedside Commode Bedside Commode Bedside Commode # Voids 2 - Exam GENERAL EXAM: Alert, very pleasant, 70-year-old white female, on 60 L/Fio2 80% of oxygen the pulse ox of 92%, comfortable in no apparent distress. HEAD: Normocephalic/atraumatic. EYES: Normal reaction of pupils, equal size. Conjunctiva pink, sclera white. NOSE: Clear with pink turbinates. THROAT: No erythema or exudates. NECK: No masses, no JVD, no thyroid enlargement, no adenopathy. CHEST: No chest wall deformity. Symmetrical expansion. LUNGS: Equal air entry with mild expiratory wheezes CVS: Irregular rate and rhythm, normal S1 and S2, no gallops, no murmurs, no rubs ABDOMEN: Soft, nontender. No hepatosplenomegaly, normal bowel sounds, no guarding or rigidity. EXTREMITIES: No clubbing, no edema, no cyanosis, 2+ pulses and upper and lower extremities. MUSCULOSKELETAL: Muscle strength and tone normal. Patient has bilateral great toes amputated, incisions are clean dry and intact, well-healed SPINE: No scoliosis or deformity SKIN: No rashes CENTRAL NERVOUS SYSTEM: Alert and oriented -3. No focal deficits, tone is normal in all 4 extremities. PSYCHIATRIC: Alert and oriented -3. Appropriate affect. Intact judgment and insight. - Labs CBC & Chem 7: 09/05/20 03:06 09/05/20 03:06 Labs: Abnormal Lab Results - Last 24 Hours (Table) 09/04/20 09/04/20 09/04/20 Range/Units 03:56 11:33 17:12 RBC (3.80-5.40) m/uL Hgb (11.4-16.0) gm/dL Hct (34.0-46.0) % Lymphocytes # (1.0-4.8) k/uL ESR 126 H (0-30) mm/Hr Sodium (137-145) mmol/L Carbon Dioxide (22-30) mmol/L BUN (7-17) mg/dL Creatinine (0.52-1.04) mg/dL Glucose (74-99) mg/dL POC Glucose (mg/dL) 140 H 178 H (75-99) mg/dL Calcium (8.4-10.2) mg/dL Creatine Kinase (30-135) U/L Total Protein (6.3-8.2) g/dL Albumin (3.5-5.0) g/dL 09/04/20 09/05/20 09/05/20 Range/Units 20:00 03:06 03:06 RBC 2.97 L (3.80-5.40) m/uL Hgb 9.3 L (11.4-16.0) gm/dL Hct 27.2 L (34.0-46.0) % Lymphocytes # 0.4 L (1.0-4.8) k/uL ESR (0-30) mm/Hr Sodium 132 L (137-145) mmol/L Carbon Dioxide 17 L (22-30) mmol/L BUN 50 H (7-17) mg/dL Creatinine 1.89 H (0.52-1.04) mg/dL Glucose 238 H (74-99) mg/dL POC Glucose (mg/dL) 205 H (75-99) mg/dL Calcium 8.3 L (8.4-10.2) mg/dL Creatine Kinase 174 H (30-135) U/L Total Protein 5.8 L (6.3-8.2) g/dL Albumin 3.1 L (3.5-5.0) g/dL 09/05/ Range/Units 06:16 RBC (3.80-5.40) m/uL Hgb (11.4-16.0) gm/dL Hct (34.0-46.0) % Lymphocytes # (1.0-4.8) k/uL ESR (0-30) mm/Hr Sodium (137-145) mmol/L Carbon Dioxide (22-30) mmol/L BUN (7-17) mg/dL Creatinine (0.52-1.04) mg/dL Glucose (74-99) mg/dL POC Glucose (mg/dL) 315 H (75-99) mg/dL Calcium (8.4-10.2) mg/dL Creatine Kinase (30-135) U/L Total Protein (6.3-8.2) g/dL Albumin (3.5-5.0) g/dL Assessment and Plan Plan: #1. Acute inferior wall ST elevated myocardial infarction, status post heart catheterization and angioplasty of the SVG to the RCA #2. Acute exacerbation of chronic congestive heart failure. COVID-19 PCR was negative #3. A. fib with RVR , is back into normal sinus rhythm #4. Acute kidney injury, improving and creatinine is down to 1.8 #5. Chronic systolic CHF with ejection fraction of 40-45% #6. Metabolic acidosis related to RADHA, currently on a bicarb infusion #7. Recent history of left big toe amputation site related to osteomyelitis in June 2020, patient remains on daptomycin and cefepime, oral Flagyl for 4 we eks prior to admission #8. Diabetes type 2 poorly controlled #9. History of chronic bronchial asthma, mild intermittent #10. Status post four-vessel bypass grafting #11. History of carotid artery disease with bilateral carotid endarterectomy #12. Previous history of right great toe amputation in 2014 #13. Peripheral vascular disease with previous stenting of the right lower extremity #14. History of CVA Plan: Continue antibiotics Lasix 60 mg IV every 12 hours Monitor renal function Continue the bicarb infusion with D5W with 3 A of bicarbonate at 50 ML per hour Continue inhalers and nebulized treatments Continue oral anticoagulation with Eliquis The Solu-Medrol to 40 mg every 12 hours and anticipate improvement in the blood sugar with a drop in the Solu-Medrol dose FiO2 down to 60% and keep the flow at 60 L Repeat chest x-ray in the morning Cardiology recommendations for heart rate control Continue close monitoring in the intensive care unit Provide IS
[2020-09-05] MEDS ORDERED: DEXTROSE 5% IN WATER 100 ML with AMIODARONE 150 MG IV ONE (09:45)
[2020-09-05] MEDS ORDERED: AMIODARONE 360 MG in DEXTROSE 5% IN WATER 200 ML IV ONE ×2 (10:00)
--- NOTE | 2020-09-05 10:18 | P.PN ---
Subjective Patient is seen in follow-up for acute kidney injury. Renal function better. Blood pressure stable. On Cardizem drip and Lopressor for A. fib. No vomiting or diarrhea. Oxygen requirements have increased. Vital signs are stable. General: The patient appeared well nourished and normally developed. HEENT: Head exam is unremarkable. LUNGS: Breath sounds decreased. HEART: Irregular rate and rhythm. ABDOMEN: Soft, no distention. EXTREMITITES: Trace edema. Objective - Vital Signs Vital signs: Vital Signs Temp 98.7 F 09/05/20 08:00 Pulse 76 09/05/20 09:00 Resp 26 H 09/05/20 09:00 BP 126/66 09/05/20 09:00 Pulse Ox 93 L 09/05/20 09:32 Intake & Output 09/04/20 09/05/20 09/05/20 18:59 06:59 18:59 Intake Total 707.125 712.625 100 Output Total 700 700 400 Balance 7.125 12.625 -300 Weight 97.2 kg Intake: Intake, IV Titration 347.125 712.625 100 Amount Cefepime 1 gm In Sodium 50 Chloride 0.9% 50 ml @ 12. 5 mls/hr IVPB Q12HR JAY Rx#:[id number] Dextrose 5% in Water 1, 250 600 100 000 ml @ 50 mls/hr IV . Q23H JAY with Sod Bicarb Syr 8.4% (1 Meq/ml) 150 ml Rx#:[id number] Diltiazem 125 mg In 97.125 62.625 Sodium Chloride 0.9% 100 ml @ 7.5 MG/HR 7.5 mls/hr IV .[id number] JAY Rx#: [id number] Oral 360 Output: Urine 700 700 400 Other: Voiding Method Bedside Commode Bedside Commode Bedside Commode # Voids 2 - Labs CBC & Chem 7: 09/05/20 03:06 09/05/20 03:06 Labs: Abnormal Lab Results - Last 24 Hours (Table) 09/04/20 09/04/20 09/04/20 Range/Units 03:56 11:33 17:12 RBC (3.80-5.40) m/uL Hgb (11.4-16.0) gm/dL Hct (34.0-46.0) % Lymphocytes # (1.0-4.8) k/uL ESR 126 H (0-30) mm/Hr Sodium (137-145) mmol/L Carbon Dioxide (22-30) mmol/L BUN (7-17) mg/dL Creatinine (0.52-1.04) mg/dL Glucose (74-99) mg/dL POC Glucose (mg/dL) 140 H 178 H (75-99) mg/dL Calcium (8.4-10.2) mg/dL Creatine Kinase (30-135) U/L Total Protein (6.3-8.2) g/dL Albumin (3.5-5.0) g/dL 09/04/20 09/05/20 09/05/20 Range/Units 20:00 03:06 03:06 RBC 2.97 L (3.80-5.40) m/uL Hgb 9.3 L (11.4-16.0) gm/dL Hct 27.2 L (34.0-46.0) % Lymphocytes # 0.4 L (1.0-4.8) k/uL ESR (0-30) mm/Hr Sodium 132 L (137-145) mmol/L Carbon Dioxide 17 L (22-30) mmol/L BUN 50 H (7-17) mg/dL Creatinine 1.89 H (0.52-1.04) mg/dL Glucose 238 H (74-99) mg/dL POC Glucose (mg/dL) 205 H (75-99) mg/dL Calcium 8.3 L (8.4-10.2) mg/dL Creatine Kinase 174 H (30-135) U/L Total Protein 5.8 L (6.3-8.2) g/dL Albumin 3.1 L (3.5-5.0) g/dL 09/05/20 Range/Units 06:16 RBC (3.80-5.40) m/uL Hgb (11.4-16.0) gm/dL Hct (34.0-46.0) % Lymphocytes # (1.0-4.8) k/uL ESR (0-30) mm/Hr Sodium (137-145) mmol/L Carbon Dioxide (22-30) mmol/L BUN (7-17) mg/dL Creatinine (0.52-1.04) mg/dL Glucose (74-99) mg/dL POC Glucose (mg/dL) 315 H (75-99) mg/dL Calcium (8.4-10.2) mg/dL Creatine Kinase (30-135) U/L Total Protein (6.3-8.2) g/dL Albumin (3.5-5.0) g/dL Assessment and Plan Plan: Assessment: 1. Acute kidney injury secondary to ATN secondary to contrast-induced acute kidney injury, hemodynamic instability and vancomycin. Renal function imp roving. Creatinine 1.89 today. Baseline creatinine near 1. 2. Metabolic acidosis secondary to acute kidney injury and IV fluids. 3. A. fib with RVR maintained on Cardizem drip and Lopressor. Cardiology following. 4. Chronic systolic CHF with ejection fraction of 40-45%. 5. Acute UT status post cardiac catheterization with stent placement on 08/29/2020. 6. Hyponatremia secondary to hyperglycemia. Hypervolemic. Plan: Maintain bicarb drip at 50 mL an hour for the next 24 hours. Maintain IV Lasix. Add po bicarb. Stopped losartan and potassium supplementation. Continue to monitor renal function and urine output.
--- NOTE | 2020-09-05 10:21 | P.PN ---
Subjective Progress Note Date: 09/05/20 HISTORY OF PRESENT ILLNESS This is a 70-year-old female patient of Dr. Sanderson with past medical history of diabetes mellitus type 2, hypertension, hyperlipidemia, CVA in 2013 with no residuals, coronary artery disease status post 4 vessel CABG, bilateral carotid endarterectomies, mild intermittent asthma, osteomyelitis status post right great toe amputation 2014 and left toe amputation in June 2020 with revision on August [address] Gregory and patient was discharged home on August 12 with plan for IV vancomycin and oral Flagyl for 4 weeks, remote history of tobacco use area patient came in the hospital due to chest pain that started in the midsternal area and radiated to her left shoulder blade. She also had nausea which has continued. She denies having any epigastric pain. No blood in her stools. She came into the hospital for evaluation and was diagnosed with ST elevated myocardial infarction and was taken directly to the cardiac construction or leak gang laborer by Dr. Soto. Heart catheterization revealed occluded SVG to the RCA. Patient subsequently underwent PTCA with successful stenting of the SVG to RCA which was done by Dr. Plata. She then went to the intensive care unit where she is seen this morning. She states the chest pain is completely gone. She continues to have nausea. She states her project facilitator is Dr. walsh at [place]. 90% on 2 L nasal cannula. Initial hemoglobin 0.6, white count 8.2, platelet count 239. INR 0.9. Electrolytes normal. BUN 33 and creatinine 1.51. Blood sugar initially 301. Blood sugar is now 170. Magnesium 1.9, total bilirubin 0.4, AST 206, ALT 25, alkaline phosphatase 30. Initial troponin 34.2. ProBNP 4600. Coronavirus PCR not detected. Echocardiogram reveals EF of 40-45%, moderate concentric left hypertrophy, mild aortic valve sclerosis, mild mitral regurgitation. 08/31: Remains in the intensive care unit by scheduled for transfer to the cardiac stepdown unit. She denies having any chest pain. She is on O2 normally has a home O2 at 3 L nasal cannula. She is complaining of some abdominal distention and Senokot will be added. Consult for Dr. Mccabe regarding left great toe wound. Patient is continued on IV vancomycin and oral Flagyl but is also on Bactrim from home. She has been afebrile, heart rate 83, blood pressure 109/49, pulse ox 91% on 3 L nasal cannula. Repeat blood work reveals creatinine of 1.8. Blood sugars are running between 113 187. Repeat blood work ordered for tomorrow. 09/01: Patient went into atrial fibrillation last evening now converted to sinus rhythm. Cardiology has started the patient on eliquis 2.5 mg twice daily and Toprol-XL increased to 75 mg daily. Brilinta changed to Plavix. Lasix is at 40 oral daily but yesterday patient had some hypoxia and was given Xanax and a dose of IV Lasix. She is currently prophylaxing 90% on 6 L nasal cannula. She has been afebrile, heart rate 84, blood pressure 104/73. Patient has been seen by Nae Mccabe with plan to continue vancomycin pharmacy to dose and Flagyl. Chest x- ray reveals reticulonodular infiltrates at the lung bases right greater than left. Correlate for pneumonia. Coronavirus PCR ordered and consult added for pulmonary medicine. Patient is afebrile, heart rate 84, blood pressure 104/73. Repeat blood work reveals WBC 10.3, hemoglobin 9.9, platelet count 255. Sodium 134, potassium 4.5, chloride 103, CO2 23, BUN 31 and creatinine 2.06. Blood sugar running between 101 and 233. Patient is scheduled to transfer to the cardiac stepdown unit. 09/02: She remains in intensive care unit waiting for bed on the cardiac stepdown unit. The patient has been seen by pulmonary medicine for chronic bronchial asthma and fluid overload, and pneumonia ruled out, plan to keep pulse ox between 88 and 92% at her baseline of 3 L nasal cannula. She is currently on 10 L nasal cannula at pulse ox of 90% to be weaned down today. Heart rate 115, afebrile, blood pressure 110/86. Patient received 2 doses of IV Lasix yesterday with improvement of her shortness of breath. Capillary blood glucose running between 107 and 149. Sodium 133, potassium 4.7, chloride 103, CO2 21, BUN 39 and creatinine 2.41. Probable calcitonin 0.34. Consult is in place with nephrology. Repeat chest x-ray reveals some improvement of the aeration left lung. Cardiomegaly and diffuse right lung reticulonodular opacities redemonstrated. 09/03: Patient is seen today in the intensive care unit still waiting for bed on the cardiac stepdown unit. She is sitting up in recliner and appears to have mild shortness of breath. She denies having shortness of breath. Heart rate is at 140s, compliance monitor atrial fibrillation. Cardiology is following and is planning for a dose of IV Lopressor and if that is not successful, oral Cardizem. Patient has been seen by nephrology and recommended changing vancomycin to daptomycin. Repeat creatinine today is at 2.36. Blood sugars are running between 120 149. 09/04: Patient remains in the intensive care unit waiting for cardiac stepdown unit bed. She continues to have heart rate in the 140s, atrial fibrillation and cardiology has started her on Cardizem drip. There is tentative plan for electrocardioversion tomorrow. Patient denies any new complaints today. Pulse ox is running 90-92% on 6 L nasal cannula. She's been afebrile, blood pressure 104/50. Blood work today reveals sed rate of 126, C-reactive protein 19.5. BUN 15 creatinine 2.05. Blood sugars are running between 128 and 225. Potassium 4.4, CO2 15. Repeat chest x-ray reveals pulmonary venous hypertension and interstitial edema. Difficult to exclude small effusion. Nephrology started bicarb drip. Losartan and potassium are on hold. 09/05: Patient remains in the intensive care unit. Yesterday she developed worsening shortness of breath and pulmonary ordered extra IV Lasix, oxygen was switched over to high flow and she is currently on airflow. She has converted into a sinus rhythm and amiodarone was discontinued. She is currently on Lasix 60 mg IV every 12 hours, continued on bicarbonate drip per nephrology. Repeat chest x-ray reveals congestive heart failure, interstitial edema, may be small pleural effusion, cardiomegaly and postoperative changes. Pulse ox is 93%, afebrile, heart rate 75, respiratory rate 26, blood pressure 126/66. Repeat blood work reveals WBC 4.9, hemoglobin 9.3, platelet count 355. Sodium 132, potassium 4.4, chloride 103, CO2 17, BUN 15 creatinine 1.89. Blood sugars are running 205-315. CK is 174. Levemir will be increased to 20 units twice daily and scheduled NovoLog increased to 7 units with meals. Patient has a memorial service on Friday for her grandson and is hoping to be discharged by then so that she can attend. Cefepime has been added by Dr. Mccabe for pneumonia and patient is continued on daptomycin and oral Flagyl. REVIEW OF SYSTEMS Constitutional: No fever, no chills, no night sweats. No weight change. No weakness, Reports fatigue. No daytime sleepiness. EENT: No headache. No blurred vision or double vision, no loss of vision. No loss of Hearing, no ringing in the ears, no dizziness. No nasal drainage or congestion. No epistaxis. No sore throat. Lungs: Reports shortness of breath, cough, no sputum production. No wheezing. Cardiovascular: No chest pain, no lower extremity edema. Reports palpitations. No paroxysmal nocturnal dyspnea. No orthopnea. No lightheadedness or dizziness. No syncopal episodes. Abdominal: No abdominal pain. No nausea, vomiting. No diarrhea. reportstipation. No bloody or tarry stools.. No loss of appetite. Genitourinary: No dysuria, increased frequency, urgency. No urinary retention. Musculoskeletal: No myalgias. No muscle weakness, no gait dysfunction, no frequent falls. No back pain. No neck pain. Integumentary: Reports left great toe wounds, no lesions. No rash or pruritus. No unusual bruising. No change in hair or nails. Neurologic: No aphasia. No facial droop. No change in mentation. No head injury. No headache. No paralysis. No paresthesia. Psychiatric: No depression. No anxiety. No mood swings. Endocrine: Elevated blood sugars. PHYSICAL EXAMINATION Gen: This is a 70-year-old obese female. She is resting in recliner and appears to be in mild respiratory distress. HEENT: Head is atraumatic, normocephalic. Pupils equal, round. Sclerae is anicteric. NECK: Supple. No JVD. No lymphadenopathy. No thyromegaly. LUNGS: Diminished breath sounds, bilateral crackles. Mild accessory muscle usage, mild intercostal retractions. HEART: Regular rate and rhythm. No murmur. ABDOMEN: Soft. Bowel sounds are present. No masses. No tenderness. EXTREMITIES: No pedal edema. No calf tenderness. Right great toe amputation, left toe amputation. Dressing in place to the left toe amputation site. NEUROLOGICAL: Patient is awake, alert and oriented x3. Cranial nerves 2 through 12 are grossly intact. ASSESSMENT AND PLAN 1. Acute inferior ST elevated myocardial infarction status post heart catheterization and stenting of the SVG to RCA. Patient to transfer to the cardiac stepdown unit. Continue aspirin 81 mg daily, Toprol-XL 75 mg daily, Plavix 75 mg daily, atorvastatin 80 mg at bedtime. 2. Diabetic and peripheral vascular disease foot ulcer with osteomyelitis status post stump revision. Patient is continued daptomycin and continue oral Flagyl to complete a full 4 week course which will be completed on September 09. Consult with Dr. Mccabe appreciated. Bactrim will be discontinued. 3. Diabetes mellitus type 2, insulin requiring, uncontrolled with hyperglycemia. Continue Levemir 15 units twice daily and NovoLog scale and NovoLog scheduled will be resumed at 5 units with each meal. 4. New onset atrial fibrillation with RVR, paroxysmal atrial fibrillation. Continue Toprol-XL 75 mg daily, eliquis 2.5 mg twice daily, amiodarone drip was started yesterday. Patient is converted to sinus rhythm. 5. Acute on chronic hypoxic respiratory failure secondary to acute systolic heart failure and pneumonia, possible gram-negative. Patient was started on cefepime. COVID-19 testing negative. Pulmonary consult appreciated. Continue DuoNeb treatments 4 times daily as needed, Symbicort twice daily. Continue IV Lasix 60 mg every 12 hours 6. Acute kidney injury with metabolic acidosis. Consult with nephrology appreciated. Losartan and potassium on hold. Bicarb drip continued. 7. Peripheral vascular disease with previous stenting of the right lower extremity. Patient regularly follows with Dr. Gregory. 8. Coronary artery disease with previous history of 4 vessel CABG. Patient's project facilitator is Dr. Brown at [facility]. 9. Chronic systolic heart failure, stable. Continue Lasix 20 mg daily, losartan and Toprol-XL. 10. COPD. Continue DuoNeb treatment, Pulmicort, Singulair. 11. History of CVA, stable. 12. Hyperlipidemia. Continue atorvastatin 80 mg at bedtime 13. Hypertension. Continue Toprol-XL.. 14. Recurrent depression. Continue Cymbalta 60 mg daily 15. Chronic hypoxic respiratory failure on home O2 at 3 L. 16. Mild intermittent asthma, stable. 17. COVID-19 testing negative. Patient has been hospitalized during a pandemic. DISCHARGE PLAN Home with [facility]. Impression and plan of care have been directed as dictated by the signing physician. Emily Higginbotham nurse practitioner acting as scribe for signing rakesh sician. Objective - Vital Signs Vital signs: Vital Signs Temp 98.7 F 09/05/20 08:00 Pulse 75 09/05/20 08:00 Resp 38 H 09/05/20 08:00 BP 119/67 09/05/20 08:00 Pulse Ox 94 L 09/05/20 08:00 Intake & Output 09/04/20 09/05/20 09/05/20 18:59 06:59 18:59 Intake Total 707.125 712.625 100 Output Total 700 700 400 Balance 7.125 12.625 -300 Weight 97.2 kg Intake: Intake, IV Titration 347.125 712.625 100 Amount Cefepime 1 gm In Sodium 50 Chloride 0.9% 50 ml @ 12. 5 mls/hr IVPB Q12HR JAY Rx#:[id number] Dextrose 5% in Water 1, 250 600 100 000 ml @ 50 mls/hr IV . Q23H JAY with Sod Bicarb Syr 8.4% (1 Meq/ml) 150 ml Rx#:[id number] Diltiazem 125 mg In 97.125 62.625 Sodium Chloride 0.9% 100 ml @ 7.5 MG/HR 7.5 mls/hr IV .[id number] JAY Rx#: [id number] Oral 360 Output: Urine 700 700 400 Other: Voiding Method Bedside Commode Bedside Commode Bedside Commode # Voids 2 - Labs CBC & Chem 7: 09/05/20 03:06 09/05/20 03:06 Labs: Abnormal Lab Results - Last 24 Hours (Table) 09/04/20 09/04/20 09/04/20 Range/Units 03:56 11:33 17:12 RBC (3.80-5.40) m/uL Hgb (11.4-16.0) gm/dL Hct (34.0-46.0) % Lymphocytes # (1.0-4.8) k/uL ESR 126 H (0-30) mm/Hr Sodium (137-145) mmol/L Carbon Dioxide (22-30) mmol/L BUN (7-17) mg/dL Creatinine (0.52-1.04) mg/dL Glucose (74-99) mg/dL POC Glucose (mg/dL) 140 H 178 H (75-99) mg/dL Calcium (8.4-10.2) mg/dL Creatine Kinase (30-135) U/L Total Protein (6.3-8.2) g/dL Albumin (3.5-5.0) g/dL 09/04/20 09/05/20 09/05/20 Range/Units 20:00 03:06 03:06 RBC 2.97 L (3.80-5.40) m/uL Hgb 9.3 L (11.4-16.0) gm/dL Hct 27.2 L (34.0-46.0) % Lymphocytes # 0.4 L (1.0-4.8) k/uL ESR (0-30) mm/Hr Sodium 132 L (137-145) mmol/L Carbon Dioxide 17 L (22-30) mmol/L BUN 50 H (7-17) mg/dL Creatinine 1.89 H (0.52-1.04) mg/dL Glucose 238 H (74-99) mg/dL POC Glucose (mg/dL) 205 H (75-99) mg/dL Calcium 8.3 L (8.4-10.2) mg/dL Creatine Kinase 174 H (30-135) U/L Total Protein 5.8 L (6.3-8.2) g/dL Albumin 3.1 L (3.5-5.0) g/dL 09/05/20 Range/Units 06:16 RBC (3.80-5.40) m/uL Hgb (11.4-16.0) gm/dL Hct (34.0-46.0) % Lymphocytes # (1.0-4.8) k/uL ESR (0-30) mm/Hr Sodium (137-145) mmol/L Carbon Dioxide (22-30) mmol/L BUN (7-17) mg/dL Creatinine (0.52-1.04) mg/dL Glucose (74-99) mg/dL POC Glucose (mg/dL) 315 H (75-99) mg/dL Calcium (8.4-10.2) mg/dL Creatine Kinase (30-135) U/L Total Protein (6.3-8.2) g/dL Albumin (3.5-5.0) g/dL
--- NOTE | 2020-09-05 10:40 | P.PN ---
Subjective Progress Note Date: 09/05/20 HISTORY OF PRESENT ILLNESS: This is a 70-year-old female with a past medical history significant for coronary artery disease with previous CABG 4, hypertension, hyperlipidemia, congestive heart failure, peripheral vascular disease, and diabetes mellitus. Patient follows with a Dr. Brown out of [place]. We have been asked to see the patient in consultation for chest pain/stemi. Patient presented to the ER with chest pain. EKG was completed revealing ST elevation in inferior leads and STEMI alert was activated. Patient examined at the bedside in the emergency room. Patient states she began having chest pain yesterday that has progressively gotten worse. She states the pain is in the middle of her chest and in between her shoulder blades. She also reports shortness of breaht. She denies nausea or vomiting. EKG reveals sinus mechanism with ST elevation in inferior leads. ST depression in lateral leads. Chest xray not completed at the time of dictation Laboratory data: not available at time of dictation Current home cardiac medications include Norvasc 10 mg at night, Zocor 40 mg at night, metoprolol succinate 50 mg in the morning, losartan 50 mg daily, Lasix 20 mg daily, aspirin 81 mg daily 08/30/2020 Patient examined this morning at the bedside. She remains in the ICU. Patient underwent cardiac cath yesterday with PCI of the SVG to RCA. Patient denies chest pain or pressure. Denies shortness of breath. She reports nausea this morning and had emesis overnight. Blood pressure 117/63. Telemetry reveals sinus mechanism in the 70-80s. Right groin cath site clean dry with no hematoma noted. Echocardiogram completed revealed ejection fraction 40-45%, mid anteroseptal LV wall hypokinesis, apical septal wall hypokinesis, and mild mitral regurgitation. 08/31/2020 Patient examined this morning at the bedside. She remains in ICU, awaiting a bed on 3S. She denies chest pain or pressure. Denies shortness of breath. She states her nausea and abdominal pain have resolved. She complains of feeling very weak and tired. Blood pressure 122/62. Heart rate in the 80s. 09/01/2020 Patient examined this morning at the bedside. She remains in the intensive care unit. Patient developed some respiratory distress overnight and received a one- time dose of Lasix 40 mg IV. Patient states her breathing has improved this morning. Patient also went into afib with RVR overnight. Patient denies a history of afib. Her metoprolol was increased this morning as well. Vital signs stable. 09/05/2020 Patient examined this morning at the bedside. She remains in the ICU. She was scheduled for PARAM and cardioversion today however patient did convert to sinus mechanism yesterday. PARAM/CV was cancelled for today. She did have a few episodes of afib/flutter overnight per nursing and she converted to SR on her own. Patient this morning is on cardizem at 10mg/hr. Echocardiogram reveals ejection fraction 40-45%. She denies chest pain or pressure. PHYSICAL EXAM: VITAL SIGNS: Reviewed. GENERAL: Well-developed in no acute distress. HEENT: Head is normocephalic. Pupils are equal, round. Sclerae anicteric. Mucous membranes of the mouth are moist. Neck supple. No JVD or thyromegaly LUNGS: Respirations even and unlabored. Lungs diminished bilaterally. HEART: Regular rate and rhythm. S1 and S2 heard. EXTREMITIES: Normal range of motion. No clubbing or cyanosis. Peripheral pulses intact. No lower extremity edema. Right groin cath site clean dry with no hematoma noted. ASSESSMENT: Acute inferior STEMI, s/p PCI of SVG to RCA Coronary artery disease with previous CABG x 2014 at [place] Peripheral vascular disease with previous right lower extremity stenting per patient New onset paroxysmal atrial fibrillation with RVR Chronic systolic congestive heart failure, EF 40% Hypertension Hyperlipidemia Diabetes Mellitus COPD PLAN: Continue current cardiac medications Discontinue IV cardizem due to cardiomyopathy Begin amio bolus and drip per protocol Continue telemetry monitoring Increase Toprol XL to 100mg daily Further recommendations pending patient course Nurse practitioner note has been reviewed by physician. Signing provider agrees with the documented findings, assessment, and plan of care. Objective - Vital Signs Vital signs: Vital Signs Temp 98.7 F 09/05/20 08:00 Pulse 76 09/05/20 09:00 Resp 26 H 09/05/20 09:00 BP 126/66 09/05/20 09:00 Pulse Ox 93 L 09/05/20 09:32 Intake & Output 09/04/20 09/05/20 09/05/20 18:59 06:59 18:59 Intake Total 707.125 712.625 100 Output Total 700 700 400 Balance 7.125 12.625 -300 Weight 97.2 kg Intake: Intake, IV Titration 347.125 712.625 100 Amount Cefepime 1 gm In Sodium 50 Chloride 0.9% 50 ml @ 12. 5 mls/hr IVPB Q12HR JAY Rx#:[id number] Dextrose 5% in Water 1, 250 600 100 000 ml @ 50 mls/hr IV . Q23H JAY with Sod Bicarb Syr 8.4% (1 Meq/ml) 150 ml Rx#:[id number] Diltiazem 125 mg In 97.125 62.625 Sodium Chloride 0.9% 100 ml @ 7.5 MG/HR 7.5 mls/hr IV .[id number] JAY Rx#: [id number] Oral 360 Output: Urine 700 700 400 Other: Voiding Method Bedside Commode Bedside Commode Bedside Commode # Voids 2 - Labs CBC & Chem 7: 09/05/20 03:06 09/05/20 03:06 Labs: Abnormal Lab Results - Last 24 Hours (Table) 09/04/20 09/04/20 09/04/20 Range/Units 03:56 11:33 17:12 RBC (3.80-5.40) m/uL Hgb (11.4-16.0) gm/dL Hct (34.0-46.0) % Lymphocytes # (1.0-4.8) k/uL ESR 126 H (0-30) mm/Hr Sodium (137-145) mmol/L Carbon Dioxide (22-30) mmol/L BUN (7-17) mg/dL Creatinine (0.52-1.04) mg/dL Glucose (74-99) mg/dL POC Glucose (mg/dL) 140 H 178 H (75-99) mg/dL Calcium (8.4-10.2) mg/dL Creatine Kinase (30-135) U/L Total Protein (6.3-8.2) g/dL Albumin (3.5-5.0) g/dL 09/04/20 09/05/20 09/05/20 Range/Units 20:00 03:06 03:06 RBC 2.97 L (3.80-5.40) m/uL Hgb 9.3 L (11.4-16.0) gm/dL Hct 27.2 L (34.0-46.0) % Lymphocytes # 0.4 L (1.0-4.8) k/uL ESR (0-30) mm/Hr Sodium 132 L (137-145) mmol/L Carbon Dioxide 17 L (22-30) mmol/L BUN 50 H (7-17) mg/dL Creatinine 1.89 H (0.52-1.04) mg/dL Glucose 238 H (74-99) mg/dL POC Glucose (mg/dL) 205 H (75-99) mg/dL Calcium 8.3 L (8.4-10.2) mg/dL Creatine Kinase 174 H (30-135) U/L Total Protein 5.8 L (6.3-8.2) g/dL Albumin 3.1 L (3.5-5.0) g/dL 09/05/20 Range/Units 06:16 RBC (3.80-5.40) m/uL Hgb (11.4-16.0) gm/dL Hct (34.0-46.0) % Lymphocytes # (1.0-4.8) k/uL ESR (0-30) mm/Hr Sodium (137-145) mmol/L Carbon Dioxide (22-30) mmol/L BUN (7-17) mg/dL Creatinine (0.52-1.04) mg/dL Glucose (74-99) mg/dL POC Glucose (mg/dL) 315 H (75-99) mg/dL Calcium (8.4-10.2) mg/dL Creatine Kinase (30-135) U/L Total Protein (6.3-8.2) g/dL Albumin (3.5-5.0) g/dL
[2020-09-05] MEDS: DEXTROSE 5% IN WATER 1,000 ML with SOD BICARB SYR 8.4% (1 MEQ/ML) 150 ML IV SCH (10:53)
[2020-09-05] MEDS: ALBUTEROL HFA INHALER INHALATION PRN ×3 (11:06→20:42)
[2020-09-05 12:07] LABS: Glucose,Whole Blood 384 mg/dL (75-99)
[2020-09-05 12:07] LABS: Glucose,Whole Blood 402 mg/dL (75-99)
[2020-09-05] MEDS: SODIUM BICARBONATE TAB 650 MG TAB PO SCH ×3 (12:39→20:36)
[2020-09-05] MEDS: DAPTOmycin 500 MG in SODIUM CHLORIDE 0.9% 50 ML IVPB SCH (13:30)
[2020-09-05 15:02] LABS: Glucose,Whole Blood 415 mg/dL (75-99)
[2020-09-05] MEDS ORDERED: INSULIN ASPART (NovoLOG) 100 UNIT/ML VIAL SQ ONE (15:04)
[2020-09-05 16:59] LABS: Glucose,Whole Blood 400 mg/dL (75-99)
[2020-09-05] MEDS: ALPRAZolam 0.25 MG TAB PO PRN ×2 (17:09→21:50)
[2020-09-05] MEDS: methylPREDNISolone SOD SUCCI 40 MG/ML 1 ML VIAL IV SCH (17:31)
[2020-09-05] MEDS: AMIODARONE 450 MG in DEXTROSE 5% IN WATER 250 ML IV SCH ×2 (17:55)
[2020-09-05 19:07] LABS: Glucose,Whole Blood 329 mg/dL (75-99)
[2020-09-05] MEDS: ATORVASTATIN 80 MG TAB PO SCH (20:01)
[2020-09-05] MEDS: MONTELUKAST 10 MG TAB PO SCH (20:01)
[2020-09-05 20:19] LABS: Glucose,Whole Blood 287 mg/dL (75-99)
--- NOTE | 2020-09-05 22:08 | PN ---
PROGRESS NOTE DATE OF SERVICE: 09/05/2020 REASON FOR FOLLOWUP: 1. Left big toe osteomyelitis. 2. Pneumonia. INTERVAL HISTORY: The patient is afebrile. The patient is requiring high-flow nasal cannula oxygen but denies worsening shortness of breath. Denies any chest pain. Very minimal cough. No nausea, no vomiting, no abdominal pain or diarrhea. PHYSICAL EXAMINATION: Blood pressure 112/61 with a pulse of 79, temperature 98. She is 86% on high-flow oxygen. General description is an elderly female up in bed in no distress. RESPIRATORY SYSTEM: Unlabored breathing with decreased intensity of breath sounds. No wheeze. HEART: S1, S2. Regular rate and rhythm. ABDOMEN: Soft. No tenderness. LABS: Cultures have been negative so far. DIAGNOSTIC IMPRESSION AND PLAN: Patient with left big toe osteomyelitis, status post amputation and status post revision; was on outpatient IV vancomycin and Flagyl, admitted to hospital with myocardial infarction, status post intervention, now with worsening of respiratory status. Patient is currently covered with daptomycin because of renal insufficiency and cefepime; continues to have problems with worsening of respiratory status. We will repeat inflammatory markers and obtain a sputum sample and adjust antibiotic further if needed. Continue supportive care. MMODL / IJN: [id number] /
[2020-09-05 23:24] LABS: Glucose,Whole Blood 196 mg/dL (75-99)
[2020-09-06] MEDS: methylPREDNISolone SOD SUCCI 40 MG/ML 1 ML VIAL IV SCH ×3 (00:05→16:57)
[2020-09-06 04:57] LABS: HCT 25.2 % (34.0-46.0); MCH 32.3 pg (25.0-35.0); MCHC 35.9 g/dL (31.0-37.0); Mean Platelet Volume 7.2; Platelet Count 384 k/uL (150-450); RDW 13.7 % (11.5-15.5); WBC 10.4 k/uL (3.8-10.6)
[2020-09-06 05:37] LABS: Calcium 8.1 mg/dL (8.4-10.2); Potassium 3.6 mmol/L (3.5-5.1); Total Bilirubin 0.3 mg/dL (0.2-1.3); Total Protein 5.6 g/dL (6.3-8.2)
[2020-09-06] MEDS: POTASSIUM CHLORIDE 10 MEQ in WATER FOR INJECTION 1 100ML.BAG IVPB SCH ×2 (06:44→07:33)
[2020-09-06] MEDS: ALBUTEROL HFA INHALER INHALATION PRN ×3 (07:31→16:44)
[2020-09-06] MEDS: SYMBICORT 160-4.5 MCG INHALER INHALATION SCH ×2 (07:31→22:12)
[2020-09-06] MEDS: INSULIN ASPART (NovoLOG) 100 UNIT/ML VIAL SQ SCH ×7 (07:32→22:05)
--- NOTE | 2020-09-06 07:43 | XR ---
EXAMINATION TYPE: XR chest 1V portable DATE OF EXAM: 09/06/2020 COMPARISON: Chest x-ray 09/05/2020 HISTORY: Congestive heart failure TECHNIQUE: Single frontal view of the chest is obtained. FINDINGS: Patient is post median sternotomy. Heart remains enlarged. Interstitium is increased. Biba silar airspace disease is noted. No evident pneumothorax. Left-sided PICC line is stable. The hemidia phragms are obscured. IMPRESSION: Correlate for pneumonia versus edema and congestive heart failure. Stable cardiomegaly. Difficult to exclude pleural effusion.
[2020-09-06] MEDS: CEFEPIME 1 GM in SODIUM CHLORIDE 0.9% 50 ML IVPB SCH (08:30)
[2020-09-06] MEDS: FUROSEMIDE 10 MG/ML 10 ML VIAL IV SCH ×2 (08:31→20:07)
[2020-09-06] MEDS: ASPIRIN 81 MG PO SCH (08:32)
[2020-09-06] MEDS: METOPROLOL SUCCINATE (ER) 100 MG TAB.ER.24H PO SCH (08:32)
[2020-09-06] MEDS: CLOPIDOGREL 75 MG TAB PO SCH (08:32)
[2020-09-06] MEDS: SODIUM BICARBONATE TAB 650 MG TAB PO SCH ×3 (08:33→20:07)
[2020-09-06] MEDS: AMIODARONE 200 MG TAB PO SCH ×2 (08:33→20:07)
[2020-09-06] MEDS: DULoxetine HCL 60 MG CAPSULE.DR PO SCH (08:33)
[2020-09-06] MEDS: APIXABAN 2.5 MG TABLET PO SCH ×2 (08:33→20:07)
[2020-09-06] MEDS: INSULIN DETEMIR (LEVEMIR) 100 UNIT/ML SYR SQ SCH ×2 (08:34→22:05)
[2020-09-06] MEDS: SENNOSIDES-DOCUSATE SODIUM 1 EACH TAB PO SCH (08:38)
[2020-09-06] MEDS: ABATACEPT 125 MG/ML SQ SCH (09:19)
[2020-09-06] MEDS: AMIODARONE 450 MG in DEXTROSE 5% IN WATER 250 ML IV SCH ×2 (09:19)
--- NOTE | 2020-09-06 09:56 | P.PN ---
Subjective Progress Note Date: 09/06/20 70-year-old female that typically sees Dr. Rojas for her chronic bronchial asthma. The patient came in to the wound center, for hyperbaric treatment, on August 29. Apparently that time, she was having shortness of breath, and chest pain. She was immediately sent to the emergency room. She was thought to have an ST segment elevation myocardial infarction, and with the catheterization laboratory and had stents placed. She's in the intensive care unit now. She is on 6 L nasal cannula. Normally she wears 2-3 L. Anyway, we are asked to see her because of the worsening shortness of breath, and to rule out pneumonia. The patient denies any fever or chills. The patient denies cough or phlegm production. Her chest x-ray lipase and shows borderline cardiomegaly and some interstitial changes and small effusions consistent with heart failure. In addition, her troponins were elevated, and her BMP was elevated as well. In my opinion, nothing really points towards pneumonia as an etiology of her worsening shortness of breath. In addition, it does not appear that her asthma is particularly active this time also. She's not wheezing, or having any chest tightness. The patient states that she was recently in the hospital 3 weeks ago with an episode of heart failure as well. Her medical history includes hypertension, CAD, hyperlipidemia, asthma, diabetes, and nonhealing ulcers of the lower extremities. The patient also has a history of CVA, rheumatoid arthritis, and previous amputations of the digits of the foot for nonhealing wounds. White count 10.3, hemoglobin 9.9, hematocrit 28.6, and platelet count 255,000. Sodium 134, potassium 4.5, chlorides 103, CO2 23, anion gap is 8, BUN 31, creatinine 2.06. N-terminal proBNP is 4600. Troponins were 34.2 and 59.7 respectively. Progress note dated 09/02/2020. 70-year-old female with a history of chronic bronchial asthma. The patient was admitted to the hospital via the emergency room, with ST segment elevation myocardial infarction. She had stents placed in the catheterization laboratory. She came to the intensive care unit for further monitoring and treatment. She was thought to possibly have pneumonia. We thought her problem was primarily heart failure. She responded very nicely to Lasix therapy. She is resting c omfortably now. She is on high flow nasal O2 at 10 L. She's not receiving any IV fluids. Labs today include a sodium 133 potassium 4.7, chlorides 103, CO2 21, and anion gap of 9. BUN and creatinine were 39 and 2.41 respectively. Pro- calcitonin level was 0.34. Chest x-ray is improved. Progress note dated 09/03/2020. 70-year-old female again seen in the intensive care unit, room 258. She has a history of chronic bronchial asthma. She was admitted to the hospital through the emergency room, with ST segment elevation myocardial infarction. She had stents placed in the catheterization laboratory. She came back to the intensive care unit for further monitoring and treatment. She was thought to have pneumonia, for which we were consulted. We felt the problem was primarily CHF/heart failure. The patient has responded very nicely to Lasix therapy. Currently resting comfortably. She is on cefepime HEENT and daptomycin for a foot wound. She's not receiving any IV fluids. She is on 6 L nasal O2. Cardizem will be started for atrial fibrillation. She denies any chest pain. Currently, her glucose is 144 and her creatinine is 2.36. The x-rays from the and are reviewed. On 09/04/2020 patient seen in follow-up in the intensive care unit. She is awake and alert, oriented 3, she is currently on 6 L of oxygen her pulse ox is 90-92%, she is mildly short of breath with conversation, but appears to be in no acute respiratory distress. She remains in A. fib and the rate is tachycardic with a heart rate between 125-140 BPM, she is on Eliquis for 2.5 mg twice daily for anticoagulation and she is on Cardizem at 10 mg per hour. She's been afebrile, she is not requiring any vasopressor support, today's chest x-ray shows pulmonary venous hypertension and interstitial edema and a small pleural effusion on the right was difficult to exclude. Patient is on lactated Ringer's had a rate of 75 ML per hour, she's had no nausea vomiting or diarrhea. Patient remains on antibiotics with a combination of cefepime and daptomycin for recent history of osteomyelitis in her left big toe, status post recent amputation of the left great toe. ID service is following. The area of amputated toe is healing well. The incision is clean dry and intact, no drainage. These labs have been reviewed, ESR is elevated at 126, and CRP also remains elevated at 19.5. Sodium is 134, potassium is 4.4, CO2 is 15, BUN is 50, and creatinine is 2.05. Urology is following and recommended to switch to IV fluids from lactated Ringer's to bicarbonate infusion with D5W with 3 A of bicarbonate at a rate of 50 ML per hour. 09/05/2020, the patient is being seen for follow-up. Yesterday, the patient had worsening shortness of breath and she decompensated and afternoon. I reevalua edith her. She was in pulmonary edema. She was started on tachycardia. She was also bronchospastic and wheezy. At that point, I give the patient another dose of Lasix. I started on IV Solu-Medrol. She did respond also to high flow oxygen and she was placed on high flow oxygen with an FiO2 of 80% and a flow of 60 L per minute. This morning she is doing much better. Her heart rate has slowed down significantly. She converted into normal sinus rhythm and the patient is currently on Cardizem 5 mg an hour drip, amiodarone was discontinued and the patient is still on Eliquis 2.5 mg by mouth twice a day for long-term anticoagulation. She was given Lasix. Fluid balance has been essentially 0 balance the patient remains on Lasix 60 mg IV every 12 hours. The patient is also on a bicarb infusion with a total of 150 mEq of sodium bicarb running at the rate of 50 mL an hour. Her serum bicarb is up to 17 on today's evaluation. Creatinine is down to 1.8. Nephrology is also on the case regarding her kidney failure. The patient remains on broad-spectrum antibiotics regarding osteomyelitis of the left big toe that was already amputated and the patient remains on a combination of cefepime, daptomycin and she is afebrile hemodynamically stable and the surgical wound site is dry clean and intact without any evidence of drainage. The patient's pulse ox is currently 96% on an FiO2 of 80% with a flow of 60 L. The patient is seen today 09/06/2020 in follow-up in the intensive care unit. She is currently awake and alert in no acute distress. She is however still requiring AirVo high flow oxygen at 60 L and 93% FiO2 to maintain O2 saturation in the 80s. Her cough is dry and nonproductive. Chest x-ray shows cardiomegaly, increasing interstitium, bilateral airspace disease left greater than right. She is currently on Lasix 60 mg IV every 12 hours. In a -750 ML balance. Blood cultures reveal no growth. She remains afebrile. White count 10.4. Hemoglobin 9.0. Sodium 133. Potassium 3.6. Creatinine 1.95. Currently in sinus rhythm. Her amiodarone drip will be finishing and she'll be transitioned to oral Cordarone 400 mg twice a day. She is on Orencia for her rheumatoid arthritis. She remains on Symbicort, DuoNeb inhalations, IV Solu- Medrol, Singulair. Anticoagulated with Eliquis. Insulin being adjusted. She remains on a bicarb drip at 50 MLS per hour. Objective - Vital Signs Vital signs: Vital Signs Temp 97.4 F L 09/06/20 04:00 Pulse 79 09/06/20 07:00 Resp 23 09/06/20 07:00 BP 125/70 09/06/20 07:00 Pulse Ox 83 L 09/06/20 07:00 Intake & Output 09/05/20 09/06/20 09/06/20 18:59 06:59 18:59 Intake Total 800 900 150 Output Total 1050 1400 0 Balance -250 -500 150 Weight 98.3 kg Intake: IV 500 700 50 Cefepime 1 gm In Sodium 100 Chloride 0.9% 50 ml @ 12. 5 mls/hr IVPB Q12HR JAY Rx#:[id number] Dextrose 5% in Water 1, 500 600 50 000 ml @ 50 mls/hr IV . Q23H JAY with Sod Bicarb Syr 8.4% (1 Meq/ml) 150 ml Rx#:[id number] Intake, IV Titration 100 Amount Dextrose 5% in Water 1, 100 000 ml @ 50 mls/hr IV . Q23H JAY with Sod Bicarb Syr 8.4% (1 Meq/ml) 150 ml Rx#:[id number] Oral 200 200 100 Output: Urine 1050 1400 0 Other: Voiding Method Bedside Commode Bedside Commode # Voids 1 - Exam GENERAL EXAM: Alert, very pleasant, 70-year-old female, on 60 L/Fio2 93% of oxygen the pulse ox of 83%, fairly comfortable in no apparent distress. HEAD: Normocephalic/atraumatic. EYES: Normal reaction of pupils, equal size. Conjunctiva pink, sclera white. NOSE: Clear with pink turbinates. THROAT: No erythema or exudates. NECK: No masses, no JVD, no thyroid enlargement, no adenopathy. CHEST: No chest wall deformity. Symmetrical expansion. LUNGS: Equal air entry with mild expiratory wheezes, posterior crackles CVS: Regular rate and rhythm, normal S1 and S2, no gallops, no murmurs, no rubs ABDOMEN: Soft, nontender. No hepatosplenomegaly, normal bowel sounds, no gu arding or rigidity. EXTREMITIES: No clubbing, no edema, no cyanosis, 2+ pulses and upper and lower e xtremities. MUSCULOSKELETAL: Muscle strength and tone normal. Patient has bilateral great toes amputated, incisions are clean dry and intact, well-healed SPINE: No scoliosis or deformity SKIN: No rashes CENTRAL NERVOUS SYSTEM: Alert and oriented -3. No focal deficits, tone is normal in all 4 extremities. PSYCHIATRIC: Alert and oriented -3. Appropriate affect. Intact judgment and insight. - Labs CBC & Chem 7: 09/06/20 04:41 09/06/20 04:41 Labs: Abnormal Lab Results - Last 24 Hours (Table) 09/05/20 09/05/20 09/05/20 Range/Units 12:01 12:05 15:01 RBC (3.80-5.40) m/uL Hgb (11.4-16.0) gm/dL Hct (34.0-46.0) % Sodium (137-145) mmol/L BUN (7-17) mg/dL Creatinine (0.52-1.04) mg/dL Glucose (74-99) mg/dL POC Glucose (mg/dL) 384 H 402 H 415 H (75-99) mg/dL Calcium (8.4-10.2) mg/dL Total Protein (6.3-8.2) g/dL Albumin (3.5-5.0) g/dL 09/05/20 09/05/20 09/05/20 Range/Units 16:57 19:06 20:18 RBC (3.80-5.40) m/uL Hgb (11.4-16.0) gm/dL Hct (34.0-46.0) % Sodium (137-145) mmol/L BUN (7-17) mg/dL Creatinine (0.52-1.04) mg/dL Glucose (74-99) mg/dL POC Glucose (mg/dL) 400 H 329 H 287 H (75-99) mg/dL Calcium (8.4-10.2) mg/dL Total Protein (6.3-8.2) g/dL Albumin (3.5-5.0) g/dL 09/05/20 09/06/20 09/06/20 Range/Units 23:22 04:41 04:41 RBC 2.80 L (3.80-5.40) m/uL Hgb 9.0 L (11.4-16.0) gm/dL Hct 25.2 L (34.0-46.0) % Sodium 133 L (137-145) mmol/L BUN 60 H (7-17) mg/dL Creatinine 1.95 H (0.52-1.04) mg/dL Glucose 188 H (74-99) mg/dL POC Glucose (mg/dL) 196 H (75-99) mg/dL Calcium 8.1 L (8.4-10.2) mg/dL Total Protein 5.6 L (6.3-8.2) g/dL Albumin 3.0 L (3.5-5.0) g/dL Microbiology - Last 24 Hours (Table) 09/05/20 03:06 Blood Culture - Preliminary Blood No Growth after 24 hours Assessment and Plan Assessment: [address] elevated myocardial infarction, status post heart cat heterization and angioplasty and stenting 2 of the SVG to the RCA 2 Acute hypoxic respiratory failure secondary to acute exacerbation of chronic systolic congestive heart failure. COVID-19 PCR was negative and fully vaccinated 3 A. fib with RVR , is back into normal sinus rhythm 4 Acute kidney injury, improving and creatinine is 1.95 5 Chronic systolic CHF with ejection fraction of 40-45% 6 Metabolic acidosis related to RADHA, currently on a bicarb infusion 7 Recent history of left big toe amputation site related to osteomyelitis in June 2020, patient remains on daptomycin and cefepime, oral Flagyl for 4 weeks prior to admission 8 Diabetes type 2 poorly controlled 9 History of chronic bronchial asthma, mild intermittent 10 Status post four-vessel bypass grafting 11 History of carotid artery disease with bilateral carotid endarterectomy 12 Previous history of right great toe amputation in 2015 13 Peripheral vascular disease with previous stenting of the right lower extremity 14 History of CVA Plan: The patient was seen and evaluated by Dr. Perales Chest x-ray and labs reviewed Remains on high flow AirVo at 60 L and 93% O2 saturation in the low 80s We'll obtain a computed tomography scan of the chest without contrast Titrate the FiO2 as tolerated Remains on cefepime, daptomycin, Flagyl We will continue to follow and make further recommendations based on her clinical status I, the cosigning physician, performed a history & physical examination of the patient. Lungs sounds end expiratory wheeze, crackles in the posterior bases. Maintaining O2 saturations in the 80s on AirVo high flow oxygen at 60 L and 93% FiO2. I discussed the assessment and plan of care with my nurse practitioner, Ashley Xiao. I attest to the above note as dictated by her.
--- NOTE | 2020-09-06 10:14 | P.PN ---
Subjective Progress Note Date: 09/06/20 HISTORY OF PRESENT ILLNESS: This is a 70-year-old female with a past medical history significant for coronary artery disease with previous CABG 4, hypertension, hyperlipidemia, congestive heart failure, peripheral vascular disease, and diabetes mellitus. Patient follows with a Dr. Brown out of [place]. We have been asked to see the patient in consultation for chest pain/stemi. Patient presented to the ER with chest pain. EKG was completed revealing ST elevation in inferior leads and STEMI alert was activated. Patient examined at the bedside in the emergency room. Patient states she began having chest pain yesterday that has progressively gotten worse. She states the pain is in the middle of her chest and in between her shoulder blades. She also reports shortness of breaht. She denies nausea or vomiting. EKG reveals sinus mechanism with ST elevation in inferior leads. ST depression in lateral leads. Chest xray not completed at the time of dictation Laboratory data: not available at time of dictation Current home cardiac medications include Norvasc 10 mg at night, Zocor 40 mg at night, metoprolol succinate 50 mg in the morning, losartan 50 mg daily, Lasix 20 mg daily, aspirin 81 mg daily 08/30/2020 Patient examined this morning at the bedside. She remains in the ICU. Patient underwent cardiac cath yesterday with PCI of the SVG to RCA. Patient denies chest pain or pressure. Denies shortness of breath. She reports nausea this morning and had emesis overnight. Blood pressure 117/63. Telemetry reveals sinus mechanism in the 70-80s. Right groin cath site clean dry with no hematoma noted. Echocardiogram completed revealed ejection fraction 40-45%, mid anteroseptal LV wall hypokinesis, apical septal wall hypokinesis, and mild mitral regurgitation. 08/31/2020 Patient examined this morning at the bedside. She remains in ICU, awaiting a bed on 3S. She denies chest pain or pressure. Denies shortness of breath. She states her nausea and abdominal pain have resolved. She complains of feeling very weak and tired. Blood pressure 122/62. Heart rate in the 80s. 09/01/2020 Patient examined this morning at the bedside. She remains in the intensive care unit. Patient developed some respiratory distress overnight and received a one- time dose of Lasix 40 mg IV. Patient states her breathing has improved this morning. Patient also went into afib with RVR overnight. Patient denies a history of afib. Her metoprolol was increased this morning as well. Vital signs stable. 09/05/2020 Patient examined this morning at the bedside. She remains in the ICU. She was scheduled for PARAM and cardioversion today however patient did convert to sinus mechanism yesterday. PARAM/CV was cancelled for today. She did have a few episodes of afib/flutter overnight per nursing and she converted to SR on her own. Patient this morning is on cardizem at 10mg/hr. Echocardiogram reveals ejection fraction 40-45%. She denies chest pain or pressure. 09/06/2020 Patient examined this morning at bedside. She remains in intensive care unit. Patient denies chest pain or pressure. She states her shortness of breath has improved since yesterday. She remains on Airvo. Telemetry reveals sinus mechanism. She is on IV amiodarone. Blood pressure 125/70. Heart rate in the 80s. PHYSICAL EXAM: VITAL SIGNS: Reviewed. GENERAL: Well-developed in no acute distress. HEENT: Head is normocephalic. Pupils are equal, round. Sclerae anicteric. Mucous membranes of the mouth are moist. Neck supple. No JVD or thyromegaly LUNGS: Respirations even and unlabored. Lungs diminished bilaterally with bibasilar rales. HEART: Regular rate and rhythm. S1 and S2 heard. EXTREMITIES: Normal range of motion. No clubbing or cyanosis. Peripheral pulses intact. No lower extremity edema. ASSESSMENT: Acute inferior STEMI, s/p PCI of SVG to RCA Coronary artery disease with previous CABG x 2014 at [place] Peripheral vascular disease with previous right lower extremity stenting per patient New onset paroxysmal atrial fibrillation with RVR Acute on chronic systolic congestive heart failure, EF 40% Hypertension Hyperlipidemia Diabetes Mellitus COPD PLAN: Continue anticoagulation with Eliquis Continue current cardiac medications Continue current dose of metoprolol Begin oral amio 400mg BID when IV amio infusion is complete Continue telemetry monitoring May transfer to from a cardiac standpoint Further recommendations pending patient course Nurse practitioner note has been reviewed by physician. Signing provider agrees with the documented findings, assessment, and plan of care. Objective - Vital Signs Vital signs: Vital Signs Temp 97.4 F L 09/06/20 04:00 Pulse 79 05/26/21 07:00 Resp 23 09/06/20 07:00 BP 125/70 09/06/20 07:00 Pulse Ox 83 L 09/06/20 07:00 Intake & Output 09/05/20 09/06/20 09/06/20 18:59 06:59 18:59 Intake Total 800 900 150 Output Total 1050 1400 0 Balance -250 -500 150 Weight 98.3 kg Intake: IV 500 700 50 Cefepime 1 gm In Sodium 100 Chloride 0.9% 50 ml @ 12. 5 mls/hr IVPB Q12HR JAY Rx#:[id number] Dextrose 5% in Water 1, 500 600 50 000 ml @ 50 mls/hr IV . Q23H JAY with Sod Bicarb Syr 8.4% (1 Meq/ml) 150 ml Rx#:[id number] Intake, IV Titration 100 Amount Dextrose 5% in Water 1, 100 000 ml @ 50 mls/hr IV . Q23H JAY with Sod Bicarb Syr 8.4% (1 Meq/ml) 150 ml Rx#:[id number] Oral 200 200 100 Output: Urine 1050 1400 0 Other: Voiding Method Bedside Commode Bedside Commode # Voids 1 - Labs CBC & Chem 7: 09/06/20 04:41 09/06/20 04:41 Labs: Abnormal Lab Results - Last 24 Hours (Table) 09/05/20 09/05/20 09/05/20 Range/Units 12:01 12:05 15:01 RBC (3.80-5.40) m/uL Hgb (11.4-16.0) gm/dL Hct (34.0-46.0) % Sodium (137-145) mmol/L BUN (7-17) mg/dL Creatinine (0.52-1.04) mg/dL Glucose (74-99) mg/dL POC Glucose (mg/dL) 384 H 402 H 415 H (75-99) mg/dL Calcium (8.4-10.2) mg/dL Total Protein (6.3-8.2) g/dL Albumin (3.5-5.0) g/dL 09/05/20 09/05/20 09/05/20 Range/Units 16:57 19:06 20:18 RBC (3.80-5.40) m/uL Hgb (11.4-16.0) gm/dL Hct (34.0-46.0) % Sodium (137-145) mmol/L BUN (7-17) mg/dL Creatinine (0.52-1.04) mg/dL Glucose (74-99) mg/dL POC Glucose (mg/dL) 400 H 329 H 287 H (75-99) mg/dL Calcium (8.4-10.2) mg/dL Total Protein (6.3-8.2) g/dL Albumin (3.5-5.0) g/dL 09/05/20 09/06/20 09/06/20 Range/Units 23:22 04:41 04:41 RBC 2.80 L (3.80-5.40) m/uL Hgb 9.0 L (11.4-16.0) gm/dL Hct 25.2 L (34.0-46.0) % Sodium 133 L (137-145) mmol/L BUN 60 H (7-17) mg/dL Creatinine 1.95 H (0.52-1.04) mg/dL Glucose 188 H (74-99) mg/dL POC Glucose (mg/dL) 196 H (75-99) mg/dL Calcium 8.1 L (8.4-10.2) mg/dL Total Protein 5.6 L (6.3-8.2) g/dL Albumin 3.0 L (3.5-5.0) g/dL Microbiology - Last 24 Hours (Table) 09/05/20 03:06 Blood Culture - Preliminary Blood No Growth after 24 hours
[2020-09-06] MEDS: ALPRAZolam 0.25 MG TAB PO PRN (10:42)
--- NOTE | 2020-09-06 10:49 | P.PN ---
Subjective Patient is seen in follow-up for acute kidney injury. Renal function stable. Blood pressure stable. No vomiting or diarrhea. On airvo, Vital signs are stable. General: On airvo. HEENT: Head exam is unremarkable. LUNGS: Breath sounds decreased. HEART: Regular rate and rhythm. ABDOMEN: Soft, no distention. EXTREMITITES: Trace edema. Objective - Vital Signs Vital signs: Vital Signs Temp 97.4 F L 09/06/20 04:00 Pulse 79 09/06/20 07:00 Resp 23 09/06/20 07:00 BP 125/70 09/06/20 07:00 Pulse Ox 83 L 09/06/20 07:00 Intake & Output 09/05/20 09/06/20 09/06/20 18:59 06:59 18:59 Intake Total 800 900 150 Output Total 1050 1400 0 Balance -250 -500 150 Weight 98.3 kg Intake: IV 500 700 50 Cefepime 1 gm In Sodium 100 Chloride 0.9% 50 ml @ 12. 5 mls/hr IVPB Q12HR JAY Rx#:[id number] Dextrose 5% in Water 1, 500 600 50 000 ml @ 50 mls/hr IV . Q23H JAY with Sod Bicarb Syr 8.4% (1 Meq/ml) 150 ml Rx#:[id number] Intake, IV Titration 100 Amount Dextrose 5% in Water 1, 100 000 ml @ 50 mls/hr IV . Q23H JAY with Sod Bicarb Syr 8.4% (1 Meq/ml) 150 ml Rx#:[id number] Oral 200 200 100 Output: Urine 1050 1400 0 Other: Voiding Method Bedside Commode Bedside Commode # Voids 1 - Labs CBC & Chem 7: 09/06/20 04:41 09/06/20 04:41 Labs: Abnormal Lab Results - Last 24 Hours (Table) 09/05/20 09/05/20 09/05/20 Range/Units 12:01 12:05 15:01 RBC (3.80-5.40) m/uL Hgb (11.4-16.0) gm/dL Hct (34.0-46.0) % Sodium (137-145) mmol/L BUN (7-17) mg/dL Creatinine (0.52-1.04) mg/dL Glucose (74-99) mg/dL POC Glucose (mg/dL) 384 H 402 H 415 H (75-99) mg/dL Calcium (8.4-10.2) mg/dL Total Protein (6.3-8.2) g/dL Albumin (3.5-5.0) g/dL 09/05/20 09/05/20 09/05/20 Range/Units 16:57 19:06 20:18 RBC (3.80-5.40) m/uL Hgb (11.4-16.0) gm/dL Hct (34.0-46.0) % Sodium (137-145) mmol/L BUN (7-17) mg/dL Creatinine (0.52-1.04) mg/dL Glucose (74-99) mg/dL POC Glucose (mg/dL) 400 H 329 H 287 H (75-99) mg/dL Calcium (8.4-10.2) mg/dL Total Protein (6.3-8.2) g/dL Albumin (3.5-5.0) g/dL 09/05/20 09/06/20 09/06/20 Range/Units 23:22 04:41 04:41 RBC 2.80 L (3.80-5.40) m/uL Hgb 9.0 L (11.4-16.0) gm/dL Hct 25.2 L (34.0-46.0) % Sodium 133 L (137-145) mmol/L BUN 60 H (7-17) mg/dL Creatinine 1.95 H (0.52-1.04) mg/dL Glucose 188 H (74-99) mg/dL POC Glucose (mg/dL) 196 H (75-99) mg/dL Calcium 8.1 L (8.4-10.2) mg/dL Total Protein 5.6 L (6.3-8.2) g/dL Albumin 3.0 L (3.5-5.0) g/dL Microbiology - Last 24 Hours (Table) 09/05/20 03:06 Blood Culture - Preliminary Blood No Growth after 24 hours Assessment and Plan Plan: Assessment: 1. Acute kidney injury secondary to ATN secondary to contrast-induced acute kidney injury, hemodynamic instability and vancomycin. Also component of cardiorenal syndrome now. Renal function stable. Creatinine 1.95 today. Baseline creatinine near 1. 2. Metabolic acidosis secondary to acute kidney injury and IV fluids. Maintained on oral bicarb. Better. 3. A. fib with RVR maintained on amiodarone and Lopressor. Cardiology following. 4. Chronic systolic CHF with ejection fraction of 40-45%. 5. Acute MD status post cardiac catheterization with stent placement on 2020. 6. Hyponatremia secondary to hyperglycemia. Hypervolemic. Better. 7. Hypokalemia from diuresis. Replaced. Plan: Maintain IV Lasix. Continue to monitor renal function and urine output. Wean FiO2.
--- NOTE | 2020-09-06 12:31 | P.PN ---
Subjective Progress Note Date: 09/06/20 HISTORY OF PRESENT ILLNESS This is a 70-year-old female patient of Dr. Sanderson with past medical history of diabetes mellitus type 2, hypertension, hyperlipidemia, CVA in 2013 with no residuals, coronary artery disease status post 4 vessel CABG, bilateral carotid endarterectomies, mild intermittent asthma, osteomyelitis status post right great toe amputation 2014 and left toe amputation in June 2020 with revision on August [address] Gregory and patient was discharged home on August 12 with plan for IV vancomycin and oral Flagyl for 4 weeks, remote history of tobacco use area patient came in the hospital due to chest pain that started in the midsternal area and radiated to her left shoulder blade. She also had nausea which has continued. She denies having any epigastric pain. No blood in her stools. She came into the hospital for evaluation and was diagnosed with ST elevated myocardial infarction and was taken directly to the cardiac chemical laboratory assistant by Dr. Soto. Heart catheterization revealed occluded SVG to the RCA. Patient subsequently underwent PTCA with successful stenting of the SVG to RCA which was done by Dr. Plata. She then went to the intensive care unit where she is seen this morning. She states the chest pain is completely gone. She continues to have nausea. She states her chief knowledge officer is Dr. walsh at [facility]. 90% on 2 L nasal cannula. Initial hemoglobin 0.6, white count 8.2, platelet count 239. INR 0.9. Electrolytes normal. BUN 33 and creatinine 1.51. Blood sugar initially 301. Blood sugar is now 170. Magnesium 1.9, total bilirubin 0.4, AST 206, ALT 25, alkaline phosphatase 30. Initial troponin 34.2. ProBNP 4600. Coronavirus PCR not detected. Echocardiogram reveals EF of 40-45%, moderate concentric left hypertrophy, mild aortic valve sclerosis, mild mitral regurgitation. 08/31: Remains in the intensive care unit by scheduled for transfer to the cardiac stepdown unit. She denies having any chest pain. She is on O2 normally has a home O2 at 3 L nasal cannula. She is complaining of some abdominal distention and Senokot will be added. Consult for Dr. Mccabe regarding left great toe wound. Patient is continued on IV vancomycin and oral Flagyl but is also on Bactrim from home. She has been afebrile, heart rate 83, blood pressure 109/49, pulse ox 91% on 3 L nasal cannula. Repeat blood work reveals creatinine of 1.8. Blood sugars are running between 113 187. Repeat blood work ordered for tomorrow. 09/01: Patient went into atrial fibrillation last evening now converted to sinus rhythm. Cardiology has started the patient on eliquis 2.5 mg twice daily and Toprol-XL increased to 75 mg daily. Brilinta changed to Plavix. Lasix is at 40 oral daily but yesterday patient had some hypoxia and was given Xanax and a dose of IV Lasix. She is currently prophylaxing 90% on 6 L nasal cannula. She has been afebrile, heart rate 84, blood pressure 104/73. Patient has been seen by Nae Mccabe with plan to continue vancomycin pharmacy to dose and Flagyl. Chest x- ray reveals reticulonodular infiltrates at the lung bases right greater than left. Correlate for pneumonia. Coronavirus PCR ordered and consult added for pulmonary medicine. Patient is afebrile, heart rate 84, blood pressure 104/73. Repeat blood work reveals WBC 10.3, hemoglobin 9.9, platelet count 255. Sodium 134, potassium 4.5, chloride 103, CO2 23, BUN 31 and creatinine 2.06. Blood sugar running between 101 and 233. Patient is scheduled to transfer to the cardiac stepdown unit. 09/02: She remains in intensive care unit waiting for bed on the cardiac stepdown unit. The patient has been seen by pulmonary medicine for chronic bronchial asthma and fluid overload, and pneumonia ruled out, plan to keep pulse ox between 88 and 92% at her baseline of 3 L nasal cannula. She is currently on 10 L nasal cannula at pulse ox of 90% to be weaned down today. Heart rate 115, afebrile, blood pressure 110/86. Patient received 2 doses of IV Lasix yesterday with improvement of her shortness of breath. Capillary blood glucose running between 107 and 149. Sodium 133, potassium 4.7, chloride 103, CO2 21, BUN 39 and creatinine 2.41. Probable calcitonin 0.34. Consult is in place with nephrology. Repeat chest x-ray reveals some improvement of the aeration left lung. Cardiomegaly and diffuse right lung reticulonodular opacities redemonstrated. 09/03: Patient is seen today in the intensive care unit still waiting for bed on the cardiac stepdown unit. She is sitting up in recliner and appears to have mild shortness of breath. She denies having shortness of breath. 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 Cardiology is following and is planning for a dose of IV Lopressor and if that is not successful, oral Cardizem. Patient has been seen by nephrology and recommended changing vancomycin to daptomycin. Repeat creatinine today is at 2.36. Blood sugars are running between 120 149. 09/04: Patient remains in the intensive care unit waiting for cardiac stepdown unit bed. She continues to have heart rate in the 140s, atrial fibrillation and cardiology has started her on Cardizem drip. There is tentative plan for electrocardioversion tomorrow. Patient denies any new complaints today. Pulse ox is running 90-92% on 6 L nasal cannula. She's been afebrile, blood pressure 104/50. Blood work today reveals sed rate of 126, C-reactive protein 19.5. BUN 15 creatinine 2.05. Blood sugars are running between 128 and 225. Potassium 4.4, CO2 15. Repeat chest x-ray reveals pulmonary venous hypertension and interstitial edema. Difficult to exclude small effusion. Nephrology started bicarb drip. Losartan and potassium are on hold. 09/05: Patient remains in the intensive care unit. Yesterday she developed worsening shortness of breath and pulmonary ordered extra IV Lasix, oxygen was switched over to high flow and she is currently on airflow. She has converted into a sinus rhythm and amiodarone was discontinued. She is currently on Lasix 60 mg IV every 12 hours, continued on bicarbonate drip per nephrology. Repeat chest x-ray reveals congestive heart failure, interstitial edema, may be small pleural effusion, cardiomegaly and postoperative changes. Pulse ox is 93%, afebrile, heart rate 75, respiratory rate 26, blood pressure 126/66. Repeat blood work reveals WBC 4.9, hemoglobin 9.3, platelet count 355. Sodium 132, potassium 4.4, chloride 103, CO2 17, BUN 15 creatinine 1.89. Blood sugars are running 205-315. CK is 174. Levemir will be increased to 20 units twice daily and scheduled NovoLog increased to 7 units with meals. Patient has a memorial service on Friday for her grandson and is hoping to be discharged by then so that she can attend. Cefepime has been added by Dr. Mccabe for pneumonia and patient is continued on daptomycin and oral Flagyl. 09/06: Patient remains in the intensive care unit, she is oxygenating poorly with AirVO but does not recognize this. She is very anxious to get better and be discharged for her grandson's Memorial. Discussed the need for patient to undress and manage her own health concerns as her primary focus. Amiodarone drip transitioned to oral amiodarone at 400 mg twice daily and metoprolol increased to 100 mg daily. She has been afebrile, heart rate 79, blood pressure 125/70, pulse ox 83% on FiO2 93, O2 flow rate 60. Repeat blood work reveals WBC 10.4, hemoglobin 9, platelet count 384. Sodium 133, potassium 3.6, chloride 101, CO2 24, BUN 16 creatinine 1.95. Blood sugars have been running between 188 and 329. Blood sugars are improving.. Blood cultures no growth at 24 hours. Chest x-ray reveals correlate for pneumonia versus edema and congestive heart failure. Stable cardiomegaly. Difficult to exclude pleural effusions. Patient is scheduled for CT chest today. She is continued on IV antibiotics with cefepime and daptomycin. REVIEW OF SYSTEMS Constitutional: No fever, no chills, no night sweats. No weight change. No weakness, Reports fatigue. No daytime sleepiness. EENT: No headache. No blurred vision or double vision, no loss of vision. No loss of Hearing, no ringing in the ears, no dizziness. No nasal drainage or congestion. No epistaxis. No sore throat. Lungs: Reports shortness of breath, cough, no sputum production. No wheezing. Cardiovascular: No chest pain, no lower extremity edema. Reports palpitations. No paroxysmal nocturnal dyspnea. No orthopnea. No lightheadedness or dizziness. No syncopal episodes. Abdominal: No abdominal pain. No nausea, vomiting. No diarrhea. reportstipation. No bloody or tarry stools.. No loss of appetite. Genitourinary: No dysuria, increased frequency, urgency. No urinary retention. Musculoskeletal: No myalgias. No muscle weakness, no gait dysfunction, no frequent falls. No back pain. No neck pain. Integumentary: Reports left great toe wounds, no lesions. No rash or pruritus. No unusual bruising. No change in hair or nails. Neurologic: No aphasia. No facial droop. No change in mentation. No head injury. No headache. No paralysis. No paresthesia. Psychiatric: No depression. No anxiety. No mood swings. Endocrine: Elevated blood sugars. PHYSICAL EXAMINATION Gen: This is a 70-year-old obese female. She is resting in recliner and appears to be in mild respiratory distress. HEENT: Head is atraumatic, normocephalic. Pupils equal, round. Sclerae is anicteric. NECK: Supple. No JVD. No lymphadenopathy. No thyromegaly. LUNGS: Diminished breath sounds, bilateral crackles. Mild accessory muscle usage, mild intercostal retractions. HEART: Regular rate and rhythm. No murmur. ABDOMEN: Soft. Bowel sounds are present. No masses. No tenderness. EXTREMITIES: No pedal edema. No calf tenderness. Right great toe amputation, left toe amputation. Dressing in place to the left toe amputation site. NEUROLOGICAL: Patient is awake, alert and oriented x3. Cranial nerves 2 through 12 are grossly intact. ASSESSMENT AND PLAN 1. Acute inferior ST elevated myocardial infarction status post heart catheterization and stenting of the SVG to RCA. Patient to transfer to the cardiac stepdown unit. Continue aspirin 81 mg daily, Toprol-XL 100 mg daily, Plavix 75 mg daily, atorvastatin 80 mg at bedtime. 2. Diabetic and peripheral vascular disease foot ulcer with osteomyelitis status post stump revision. Patient is continued daptomycin and cefepime to complete a full 4 week course which will be completed on September 09. Consult with Dr. Mccabe appreciated. Bactrim will be discontinued. 3. Diabetes mellitus type 2, insulin requiring, uncontrolled with hyperglycemia. Continue Levemir 20 units twice daily and NovoLog scale and NovoLog increased to 7 units with each meal. 4. New onset atrial fibrillation with RVR, paroxysmal atrial fibrillation. C ontinue Toprol-XL increased to 100 mg daily, added amiodarone 400 mg twice daily, amiodarone drip discontinued, continue eliquis 2.5 mg twice daily. Patient is converted to sinus rhythm. 5. Acute on chronic hypoxic respiratory failure secondary to acute systolic heart failure and pneumonia, possible gram-negative. Patient was started on cefepime. COVID-19 testing negative. Pulmonary consult appreciated. Continue DuoNeb treatments 4 times daily as needed, Symbicort twice daily. Continue IV Lasix 60 mg every 12 hours, monitor daily weights and I&O. 6. Acute kidney injury with metabolic acidosis. Consult with nephrology appreciated. Losartan and potassium on hold. Oral sodium bicarb. 7. Peripheral vascular disease with previous stenting of the right lower extremity. Patient regularly follows with Dr. Gregory. 8. Coronary artery disease with previous history of 4 vessel CABG. Patient's chief knowledge officer is Dr. Brown at [facility]. 9. Chronic systolic heart failure, stable. Continue as above. 10. COPD. Continue DuoNeb treatment, Pulmicort, Singulair. 11. History of CVA, stable. 12. Hyperlipidemia. Continue atorvastatin 80 mg at bedtime 13. Hypertension. Continue Toprol-XL.. 14. Recurrent depression. Continue Cymbalta 60 mg daily 15. Chronic hypoxic respiratory failure on home O2 at 3 L. 16. Mild intermittent asthma, stable. 17. COVID-19 testing negative. Patient has been hospitalized during a pandemic. DISCHARGE PLAN Home with [facility]. Impression and plan of care have been directed as dictated by the signing physician. Emily Higginbotham nurse practitioner acting as scribe for signing physician. Objective - Vital Signs Vital signs: Vital Signs Temp 97.4 F L 09/06/20 04:00 Pulse 79 09/06/20 07:00 Resp 23 09/06/20 07:00 BP 125/70 09/06/20 07:00 Pulse Ox 83 L 09/06/20 07:00 Intake & Output 09/05/20 09/06/20 09/06/20 18:59 06:59 18:59 Intake Total 800 900 150 Output Total 1050 1400 0 Balance -250 -500 150 Weight 98.3 kg Intake: IV 500 700 50 Cefepime 1 gm In Sodium 100 Chloride 0.9% 50 ml @ 12. 5 mls/hr IVPB Q12HR JAY Rx#:[id number] Dextrose 5% in Water 1, 500 600 50 000 ml @ 50 mls/hr IV . Q23H JAY with Sod Bicarb Syr 8.4% (1 Meq/ml) 150 ml Rx#:[id number] Intake, IV Titration 100 Amount Dextrose 5% in Water 1, 100 000 ml @ 50 mls/hr IV . Q23H JAY with Sod Bicarb Syr 8.4% (1 Meq/ml) 150 ml Rx#:[id number] Oral 200 200 100 Output: Urine 1050 1400 0 Other: Voiding Method Bedside Commode Bedside Commode # Voids 1 - Labs CBC & Chem 7: 09/06/20 04:41 09/06/20 04:41 Labs: Abnormal Lab Results - Last 24 Hours (Table) 09/05/20 09/05/20 09/05/20 Range/Units 12:01 12:05 15:01 RBC (3.80-5.40) m/uL Hgb (11.4-16.0) gm/dL Hct (34.0-46.0) % Sodium (137-145) mmol/L BUN (7-17) mg/dL Creatinine (0.52-1.04) mg/dL Glucose (74-99) mg/dL POC Glucose (mg/dL) 384 H 402 H 415 H (75-99) mg/dL Calcium (8.4-10.2) mg/dL Total Protein (6.3-8.2) g/dL Albumin (3.5-5.0) g/dL 09/05/20 09/05/20 09/05/20 Range/Units 16:57 19:06 20:18 RBC (3.80-5.40) m/uL Hgb (11.4-16.0) gm/dL Hct (34.0-46.0) % Sodium (137-145) mmol/L BUN (7-17) mg/dL Creatinine (0.52-1.04) mg/dL Glucose (74-99) mg/dL POC Glucose (mg/dL) 400 H 329 H 287 H (75-99) mg/dL Calcium (8.4-10.2) mg/dL Total Protein (6.3-8.2) g/dL Albumin (3.5-5.0) g/dL 09/05/20 09/06/20 09/06/20 Range/Units 23:22 04:41 04:41 RBC 2.80 L (3.80-5.40) m/uL Hgb 9.0 L (11.4-16.0) gm/dL Hct 25.2 L (34.0-46.0) % Sodium 133 L (137-145) mmol/L BUN 60 H (7-17) mg/dL Creatinine 1.95 H (0.52-1.04) mg/dL Glucose 188 H (74-99) mg/dL POC Glucose (mg/dL) 196 H (75-99) mg/dL Calcium 8.1 L (8.4-10.2) mg/dL Total Protein 5.6 L (6.3-8.2) g/dL Albumin 3.0 L (3.5-5.0) g/dL Microbiology - Last 24 Hours (Table) 09/05/20 03:06 Blood Culture - Preliminary Blood No Growth after 24 hours
[2020-09-06] MEDS: DEXTROSE 5% IN WATER 1,000 ML with SOD BICARB SYR 8.4% (1 MEQ/ML) 150 ML IV SCH (12:32)
[2020-09-06 12:49] LABS: Glucose,Whole Blood 290 mg/dL (75-99)
--- NOTE | 2020-09-06 13:17 | CT ---
EXAMINATION TYPE: CT chest wo con DATE OF EXAM: 09/06/2020 COMPARISON: 06/22/2020 HISTORY: 70-year-old female pneumonia TECHNIQUE: Contiguous axial scanning of the chest without IV contrast. Coronal and sagittal reconstru ctions performed. CT DLP: 724.6 mGycm Automated exposure control for dose reduction was used. FINDINGS: Median sternotomy wires are present with post-CABG changes. Left PICC tip at the upper SVC. Heart borderline in size with trace pericardial fluid. Mild to moderate atherosclerotic arch calcifications within the charge was a branching anatomy. Possible 1.9 cm nodule from the lower pole of the left thyroid gland. 7 mm precarinal lymph node. Additional scattered nonenlarged paratracheal lymph nodes. Small right greater than left pleural effusions. Patchy areas of airspace opacity throughout the righ t lung and in the left lower lobe with more confluent consolidation at the lung bases. Lobulated bilateral renal contour. Moderate atherosclerotic changes continue within the abdominal aor ta and visceral artery branches. Bones: Superior endplate Schmorl's nodes T12 and L1. No osseous destructive process. IMPRESSION: 1. PATCHY AND CONFLUENT AIRSPACE DISEASE THROUGHOUT THE RIGHT LUNG AND WITHIN THE LEFT LOWER LOBE. CO NSOLIDATION IS MORE CONFLUENT AT THE LUNG BASES. SMALL RIGHT AND LEFT PLEURAL EFFUSIONS. CORRELATE FO R MULTIFOCAL PNEUMONIA AND EXCLUDE SUPERIMPOSED PATCHY PULMONARY EDEMA. 2. POSSIBLE 1.9 CM LEFT THYROID LOBE NODULE. NONEMERGENT THYROID ULTRASOUND EVALUATION RECOMMENDED.
--- NOTE | 2020-09-06 15:28 | PN ---
PROGRESS NOTE DATE OF SERVICE: 09/06/2020 REASON FOR FOLLOWUP: 1. Left big toe amputation and osteomyelitis. 2. Possible pneumonia. INTERVAL HISTORY: The patient is afebrile. The patient is complaining of shortness of breath and is requiring high-flow oxygen. Patient denies having any chest pain. She did have a cough, not bringing up any sputum. No vomiting. No abdominal pain or diarrhea. PHYSICAL EXAMINATION: Blood pressure is 125/70 with a pulse of 79, temperature 97.4. She is 83% on 60% FiO2. General description is an elderly female up in the chair in no distress. RESPIRATORY SYSTEM: Unlabored breathing, decreased breath sounds in the base, with no wheeze. HEART: S1, S2. Regular rate and rhythm. ABDOMEN: Soft, no tenderness. LABS: Hemoglobin is 9, white count 10.4, BUN of 60, creatinine 1.95. CT of the chest completed did show evidence of patchy airspace disease throughout the right lung and left lower lobe. DIAGNOSTIC IMPRESSION AND PLAN: 1. Patient with left big toe amputation site osteomyelitis was on vancomycin transitioned to daptomycin because of worsening kidney function. 2. Patient now with evidence of possible pneumonia with no evidence of confluent airspace disease on the right and left lower lobe. Did not respond very well to the cefepime, antibiotic will be adjusted to Zosyn and doxycycline cannot Zithromax or Levaquin because of the . Will try to obtain a sputum and monitor clinical course closely. MMODL / IJN: [id number] /
[2020-09-06] MEDS: PIPERACILLIN-TAZOBACTAM 3.375 GM in SODIUM CHLORIDE 0.9% 100 ML IVPB SCH (16:57)
[2020-09-06] MEDS: DOXYCYCLINE 100 MG CAP PO SCH ×2 (16:57→20:07)
[2020-09-06 17:01] LABS: Glucose,Whole Blood 207 mg/dL (75-99)
[2020-09-06] MEDS: MONTELUKAST 10 MG TAB PO SCH (20:07)
[2020-09-06] MEDS: ATORVASTATIN 80 MG TAB PO SCH (20:07)
[2020-09-06 20:20] LABS: Glucose,Whole Blood 227 mg/dL (75-99)
[2020-09-07] MEDS: PIPERACILLIN-TAZOBACTAM 3.375 GM in SODIUM CHLORIDE 0.9% 100 ML IVPB SCH ×3 (00:49→16:31)
[2020-09-07] MEDS: methylPREDNISolone SOD SUCCI 40 MG/ML 1 ML VIAL IV SCH ×3 (00:49→16:31)
[2020-09-07] MEDS: ALPRAZolam 0.25 MG TAB PO PRN ×2 (00:49→16:48)
[2020-09-07 04:28] LABS: HCT 27.7 % (34.0-46.0); HGB 9.4 gm/dL (11.4-16.0); MCH 31.3 pg (25.0-35.0); MCHC 33.8 g/dL (31.0-37.0); MCV 92.6 fL (80.0-100.0); Platelet Count 408 k/uL (150-450); Poikilocytosis Slight; RBC 2.99 m/uL (3.80-5.40); RDW 14.6 % (11.5-15.5); WBC 11.3 k/uL (3.8-10.6)
[2020-09-07 04:43] LABS: Albumin 3.2 g/dL (3.5-5.0); Calcium 8.1 mg/dL (8.4-10.2); Potassium 3.9 mmol/L (3.5-5.1); Total Bilirubin 0.4 mg/dL (0.2-1.3); Total Protein 5.8 g/dL (6.3-8.2)
[2020-09-07 07:14] LABS: Glucose,Whole Blood 163 mg/dL (75-99)
[2020-09-07] MEDS: SYMBICORT 160-4.5 MCG INHALER INHALATION SCH ×2 (07:48→20:32)
[2020-09-07] MEDS: ALBUTEROL HFA INHALER INHALATION PRN ×3 (07:48→20:32)
[2020-09-07] MEDS: INSULIN ASPART (NovoLOG) 100 UNIT/ML VIAL SQ SCH ×7 (09:08→20:47)
[2020-09-07] MEDS: INSULIN DETEMIR (LEVEMIR) 100 UNIT/ML SYR SQ SCH ×2 (09:08→20:47)
[2020-09-07] MEDS: SODIUM BICARBONATE TAB 650 MG TAB PO SCH (09:09)
[2020-09-07] MEDS: SENNOSIDES-DOCUSATE SODIUM 1 EACH TAB PO SCH (09:09)
[2020-09-07] MEDS: METOPROLOL SUCCINATE (ER) 100 MG TAB.ER.24H PO SCH (09:09)
[2020-09-07] MEDS: DOXYCYCLINE 100 MG CAP PO SCH ×2 (09:09→20:47)
[2020-09-07] MEDS: ASPIRIN 81 MG PO SCH (09:09)
[2020-09-07] MEDS: CLOPIDOGREL 75 MG TAB PO SCH (09:09)
[2020-09-07] MEDS: APIXABAN 2.5 MG TABLET PO SCH ×2 (09:10→20:46)
[2020-09-07] MEDS: AMIODARONE 200 MG TAB PO SCH ×2 (09:10→20:46)
[2020-09-07] MEDS: FUROSEMIDE 10 MG/ML 10 ML VIAL IV SCH ×2 (09:10→20:46)
[2020-09-07] MEDS: DULoxetine HCL 60 MG CAPSULE.DR PO SCH (09:10)
[2020-09-07] MEDS: DAPTOmycin 500 MG in SODIUM CHLORIDE 0.9% 50 ML IVPB SCH (09:16)
--- NOTE | 2020-09-07 09:40 | P.PN ---
Subjective Patient is seen in follow-up for acute kidney injury. Renal function fairly stable. Blood pressure stable. No vomiting or diarrhea. Currently on 15 L high flow cannula. Good urine output. Vital signs are stable. General: On airvo. HEENT: Head exam is unremarkable. LUNGS: Breath sounds decreased. HEART: Regular rate and rhythm. ABDOMEN: Soft, no distention. EXTREMITITES: Trace edema. Objective - Vital Signs Vital signs: Vital Signs Temp 97 F L 09/07/20 04:00 Pulse 70 09/07/20 07:00 Resp 33 H 09/07/20 07:00 BP 121/64 09/07/20 06:00 Pulse Ox 93 L 09/07/20 07:49 Intake & Output 09/06/20 09/07/20 09/07/20 18:59 06:59 18:59 Intake Total 590 310 10 Output Total 800 2100 0 Balance -210 -1790 10 Weight 98.3 kg Intake: IV 490 110 10 0.9 Normal Saline @ KVO 40 110 10 Cefepime 1 gm In Sodium 50 Chloride 0.9% 50 ml @ 12. 5 mls/hr IVPB Q12HR JAY Rx#:[id number] Dextrose 5% in Water 1, 300 000 ml @ 50 mls/hr IV . Q23H JAY with Sod Bicarb Syr 8.4% (1 Meq/ml) 150 ml Rx#:[id number] Piperacillin-Tazobactam 3 100 .375 gm In Sodium Chloride 0.9% 100 ml @ 25 mls/hr IVPB Q8HR JAY Rx# :[id number] Oral 100 200 Output: Urine 800 2100 0 Other: Voiding Method Bedside Commode Bedside Commode # Voids 2 0 - Labs CBC & Chem 7: 09/07/20 03:41 09/07/20 03:41 Labs: Abnormal Lab Results - Last 24 Hours (Table) 09/06/20 09/06/20 09/06/20 Range/Units 04:41 12:48 17:00 WBC (3.8-10.6) k/uL RBC (3.80-5.40) m/uL Hgb (11.4-16.0) gm/dL Hct (34.0-46.0) % BUN (7-17) mg/dL Creatinine (0.52-1.04) mg/dL Glucose (74-99) mg/dL POC Glucose (mg/dL) 290 H 207 H (75-99) mg/dL Calcium (8.4-10.2) mg/dL Total Protein (6.3-8.2) g/dL Albumin (3.5-5.0) g/dL Procalcitonin 0.60 H (0.02-0.09) ng/mL 09/06/20 09/07/20 09/07/20 Range/Units 20:20 03:41 03:41 WBC 11.3 H (3.8-10.6) k/uL RBC 2.99 L (3.80-5.40) m/uL Hgb 9.4 L (11.4-16.0) gm/dL Hct 27.7 L (34.0-46.0) % BUN 66 H (7-17) mg/dL Creatinine 2.01 H (0.52-1.04) mg/dL Glucose 150 H (74-99) mg/dL POC Glucose (mg/dL) 227 H (75-99) mg/dL Calcium 8.1 L (8.4-10.2) mg/dL Total Protein 5.8 L (6.3-8.2) g/dL Albumin 3.2 L (3.5-5.0) g/dL Procalcitonin (0.02-0.09) ng/mL 09/07/20 Range/Units 07:12 WBC (3.8-10.6) k/uL RBC (3.80-5.40) m/uL Hgb (11.4-16.0) gm/dL Hct (34.0-46.0) % BUN (7-17) mg/dL Creatinine (0.52-1.04) mg/dL Glucose (74-99) mg/dL POC Glucose (mg/dL) 163 H (75-99) mg/dL Calcium (8.4-10.2) mg/dL Total Protein (6.3-8.2) g/dL Albumin (3.5-5.0) g/dL Procalcitonin (0.02-0.09) ng/mL Microbiology - Last 24 Hours (Table) 09/06/20 21:45 Gram Stain - Preliminary Sputum Sputum Culture - Preliminary 09/05/20 03:06 Blood Culture - Preliminary Blood No Growth after 48 hours Assessment and Plan Plan: Assessment: 1. Acute kidney injury secondary to ATN secondary to contrast-induced acute kidney injury, hemodynamic instability and vancomycin. Also component of cardiorenal syndrome now. Renal function stable. Creatinine 2.01 today. Basel ine creatinine near 1. 2. Metabolic acidosis secondary to acute kidney injury and IV fluids. Better. 3. A. fib with RVR maintained on amiodarone and Lopressor. Cardiology following. 4. Chronic systolic CHF with ejection fraction of 40-45%. 5. Acute NV status post cardiac catheterization with stent placement on 08/29/2020. 6. Hyponatremia secondary to hyperglycemia. Hypervolemic. Better. 7. Hypokalemia from diuresis. Replaced. Better. Plan: Maintain IV Lasix. Continue to monitor renal function and urine output. Wean FiO2. Stop bicarb.
--- NOTE | 2020-09-07 10:23 | P.PN ---
Subjective Progress Note Date: 09/07/20 70-year-old female that typically sees Dr. Rojas for her chronic bronchial asthma. The patient came in to the wound center, for hyperbaric treatment, on August 29. Apparently that time, she was having shortness of breath, and chest pain. She was immediately sent to the emergency room. She was thought to have an ST segment elevation myocardial infarction, and with the catheterization laboratory and had stents placed. She's in the intensive care unit now. She is on 6 L nasal cannula. Normally she wears 2-3 L. Anyway, we are asked to see her because of the worsening shortness of breath, and to rule out pneumonia. The patient denies any fever or chills. The patient denies cough or phlegm production. Her chest x-ray lipase and shows borderline cardiomegaly and some interstitial changes and small effusions consistent with heart failure. In addition, her troponins were elevated, and her BMP was elevated as well. In my opinion, nothing really points towards pneumonia as an etiology of her worsening shortness of breath. In addition, it does not appear that her asthma is particularly active this time also. She's not wheezing, or having any chest tightness. The patient states that she was recently in the hospital 3 weeks ago with an episode of heart failure as well. Her medical history includes hypertension, CAD, hyperlipidemia, asthma, diabetes, and nonhealing ulcers of the lower extremities. The patient also has a history of CVA, rheumatoid arthritis, and previous amputations of the digits of the foot for nonhealing wounds. White count 10.3, hemoglobin 9.9, hematocrit 28.6, and platelet count 255,000. Sodium 134, potassium 4.5, chlorides 103, CO2 23, anion gap is 8, BUN 31, creatinine 2.06. N-terminal proBNP is 4600. Troponins were 34.2 and 59.7 respectively. Progress note dated 09/02/2020. 70-year-old female with a history of chronic bronchial asthma. The patient was admitted to the hospital via the emergency room, with ST segment elevation myocardial infarction. She had stents placed in the catheterization laboratory. She came to the intensive care unit for further monitoring and treatment. She was thought to possibly have pneumonia. We thought her problem was primarily heart failure. She responded very nicely to Lasix therapy. She is resting c omfortably now. She is on high flow nasal O2 at 10 L. She's not receiving any IV fluids. Labs today include a sodium 133 potassium 4.7, chlorides 103, CO2 21, and anion gap of 9. BUN and creatinine were 39 and 2.41 respectively. Pro- calcitonin level was 0.34. Chest x-ray is improved. Progress note dated 09/03/2020. 70-year-old female again seen in the intensive care unit, room 258. She has a history of chronic bronchial asthma. She was admitted to the hospital through the emergency room, with ST segment elevation myocardial infarction. She had stents placed in the catheterization laboratory. She came back to the intensive care unit for further monitoring and treatment. She was thought to have pneumonia, for which we were consulted. We felt the problem was primarily CHF/heart failure. The patient has responded very nicely to Lasix therapy. Currently resting comfortably. She is on cefepime HEENT and daptomycin for a foot wound. She's not receiving any IV fluids. She is on 6 L nasal O2. Cardizem will be started for atrial fibrillation. She denies any chest pain. Currently, her glucose is 144 and her creatinine is 2.36. The x-rays from the and are reviewed. On 09/04/2020 patient seen in follow-up in the intensive care unit. She is awake and alert, oriented 3, she is currently on 6 L of oxygen her pulse ox is 90-92%, she is mildly short of breath with conversation, but appears to be in no acute respiratory distress. She remains in A. fib and the rate is tachycardic with a heart rate between 125-140 BPM, she is on Eliquis for 2.5 mg twice daily for anticoagulation and she is on Cardizem at 10 mg per hour. She's been afebrile, she is not requiring any vasopressor support, today's chest x-ray shows pulmonary venous hypertension and interstitial edema and a small pleural effusion on the right was difficult to exclude. Patient is on lactated Ringer's had a rate of 75 ML per hour, she's had no nausea vomiting or diarrhea. Patient remains on antibiotics with a combination of cefepime and daptomycin for recent history of osteomyelitis in her left big toe, status post recent amputation of the left great toe. ID service is following. The area of amputated toe is healing well. The incision is clean dry and intact, no drainage. These labs have been reviewed, ESR is elevated at 126, and CRP also remains elevated at 19.5. Sodium is 134, potassium is 4.4, CO2 is 15, BUN is 50, and creatinine is 2.05. Urology is following and recommended to switch to IV fluids from lactated Ringer's to bicarbonate infusion with D5W with 3 A of bicarbonate at a rate of 50 ML per hour. 09/05/2020, the patient is being seen for follow-up. Yesterday, the patient had worsening shortness of breath and she decompensated and afternoon. I reevalua edith her. She was in pulmonary edema. She was started on tachycardia. She was also bronchospastic and wheezy. At that point, I give the patient another dose of Lasix. I started on IV Solu-Medrol. She did respond also to high flow oxygen and she was placed on high flow oxygen with an FiO2 of 80% and a flow of 60 L per minute. This morning she is doing much better. Her heart rate has slowed down significantly. She converted into normal sinus rhythm and the patient is currently on Cardizem 5 mg an hour drip, amiodarone was discontinued and the patient is still on Eliquis 2.5 mg by mouth twice a day for long-term anticoagulation. She was given Lasix. Fluid balance has been essentially 0 balance the patient remains on Lasix 60 mg IV every 12 hours. The patient is also on a bicarb infusion with a total of 150 mEq of sodium bicarb running at the rate of 50 mL an hour. Her serum bicarb is up to 17 on today's evaluation. Creatinine is down to 1.8. Nephrology is also on the case regarding her kidney failure. The patient remains on broad-spectrum antibiotics regarding osteomyelitis of the left big toe that was already amputated and the patient remains on a combination of cefepime, daptomycin and she is afebrile hemodynamically stable and the surgical wound site is dry clean and intact without any evidence of drainage. The patient's pulse ox is currently 96% on an FiO2 of 80% with a flow of 60 L. The patient is seen today 09/06/2020 in follow-up in the intensive care unit. She is currently awake and alert in no acute distress. She is however still requiring AirVo high flow oxygen at 60 L and 93% FiO2 to maintain O2 saturation in the 80s. Her cough is dry and nonproductive. Chest x-ray shows cardiomegaly, increasing interstitium, bilateral airspace disease left greater than right. She is currently on Lasix 60 mg IV every 12 hours. In a -750 ML balance. Blood cultures reveal no growth. She remains afebrile. White count 10.4. Hemoglobin 9.0. Sodium 133. Potassium 3.6. Creatinine 1.95. Currently in sinus rhythm. Her amiodarone drip will be finishing and she'll be transitioned to oral Cordarone 400 mg twice a day. She is on Orencia for her rheumatoid arthritis. She remains on Symbicort, DuoNeb inhalations, IV Solu- Medrol, Singulair. Anticoagulated with Eliquis. Insulin being adjusted. She remains on a bicarb drip at 50 MLS per hour. The patient is seen today 09/07/2020 in follow-up in the intensive care unit. She is currently sitting up in bed. Awake and alert in no acute distress. She is now on 15 L high flow nasal cannula and maintaining O2 saturations 88-94%. Chest x-ray reveals patchy and confluent airspace disease throughout the right lung and within the left lower lobe. Small bilateral effusions. Suspect multifocal pneumonia with superimposed pulmonary edema. She remains on Lasix 60 mg IV every 12 hours. Currently in a -2 L balance. Antibiotics are now doxycycline, daptomycin and Zosyn. Blood cultures reveal no growth. Sputum culture pending. She is continued on IV Solu-Medrol, Symbicort, DuoNeb inhalations, Singulair. White count 11.3. Hemoglobin 9.4. Sodium 137. Potassium 3.9. Creatinine 2.01. Glucose 150. Remains on Levemir, sliding scale. Currently in sinus rhythm. Continued on amiodarone. Anticoagulated with Eliquis. Objective - Vital Signs Vital signs: Vital Signs Temp 98.4 F 09/07/20 09:00 Pulse 77 09/07/20 09:00 Resp 24 09/07/20 09:00 BP 129/69 09/07/20 09:00 Pulse Ox 94 L 09/07/20 09:00 Intake & Output 0509/07/20 09/07/20 18:59 06:59 18:59 Intake Total 590 310 540 Output Total 800 2100 0 Balance -210 -1790 540 Weight 98.3 kg Intake: IV 490 110 130 0.9 Normal Saline @ KVO 40 110 30 Cefepime 1 gm In Sodium 50 Chloride 0.9% 50 ml @ 12. 5 mls/hr IVPB Q12HR JAY Rx#:[id number] Dextrose 5% in Water 1, 300 000 ml @ 50 mls/hr IV . Q23H JAY with Sod Bicarb Syr 8.4% (1 Meq/ml) 150 ml Rx#:[id number] Piperacillin-Tazobactam 3 100 100 .375 gm In Sodium Chloride 0.9% 100 ml @ 25 mls/hr IVPB Q8HR JAY Rx# :[id number] Intake, IV Titration 50 Amount DAPTOmycin 500 mg In 50 Sodium Chloride 0.9% 50 ml @ 100 mls/hr IVPB Q48H JAY Rx#:[id number] Oral 100 200 360 Output: Urine 800 2100 0 Other: Voiding Method Bedside Commode Bedside Commode Bedside Commode # Voids 2 0 - Exam GENERAL EXAM: Alert, very pleasant, 70-year-old female, on 15 L high flow nasal cannula with O2 saturations 88-94 %, fairly comfortable in no apparent distress. HEAD: Normocephalic/atraumatic. EYES: Normal reaction of pupils, equal size. Conjunctiva pink, sclera white. NOSE: Clear with pink turbinates. THROAT: No erythema or exudates. NECK: No masses, no JVD, no thyroid enlargement, no adenopathy. CHEST: No chest wall deformity. Symmetrical expansion. LUNGS: Equal air entry with mild expiratory wheezes, posterior crackles CVS: Regular rate and rhythm, normal S1 and S2, no gallops, no murmurs, no rubs ABDOMEN: Soft, nontender. No hepatosplenomegaly, normal bowel sounds, no guarding or rigidity. EXTREMITIES: No clubbing, no edema, no cyanosis, 2+ pulses and upper and lower extremities. MUSCULOSKELETAL: Muscle strength and tone normal. Patient has bilateral great toes amputated, incisions are clean dry and intact, well-healed SPINE: No scoliosis or deformity SKIN: No rashes CENTRAL NERVOUS SYSTEM: Alert and oriented -3. No focal deficits, tone is normal in all 4 extremities. PSYCHIATRIC: Alert and oriented -3. Appropriate affect. Intact judgment and insight. - Labs CBC & Chem 7: 09/07/20 03:41 09/07/20 03:41 Labs: Abnormal Lab Results - Last 24 Hours (Table) 09/06/20 09/06/20 09/06/20 Range/Units 04:41 12:48 17:00 WBC (3.8-10.6) k/uL RBC (3.80-5.40) m/uL Hgb (11.4-16.0) gm/dL Hct (34.0-46.0) % BUN (7-17) mg/dL Creatinine (0.52-1.04) mg/dL Glucose (74-99) mg/dL POC Glucose (mg/dL) 290 H 207 H (75-99) mg/dL Calcium (8.4-10.2) mg/dL Total Protein (6.3-8.2) g/dL Albumin (3.5-5.0) g/dL Procalcitonin 0.60 H (0.02-0.09) ng/mL 09/06/20 09/07/20 09/07/20 Range/Units 20:20 03:41 03:41 WBC 11.3 H (3.8-10.6) k/uL RBC 2.99 L (3.80-5.40) m/uL Hgb 9.4 L (11.4-16.0) gm/dL Hct 27.7 L (34.0-46.0) % BUN 66 H (7-17) mg/dL Creatinine 2.01 H (0.52-1.04) mg/dL Glucose 150 H (74-99) mg/dL POC Glucose (mg/dL) 227 H (75-99) mg/dL Calcium 8.1 L (8.4-10.2) mg/dL Total Protein 5.8 L (6.3-8.2) g/dL Albumin 3.2 L (3.5-5.0) g/dL Procalcitonin (0.02-0.09) ng/mL 09/07/20 Range/Units 07:12 WBC (3.8-10.6) k/uL RBC (3.80-5.40) m/uL Hgb (11.4-16.0) gm/dL Hct (34.0-46.0) % BUN (7-17) mg/dL Creatinine (0.52-1.04) mg/dL Glucose (74-99) mg/dL POC Glucose (mg/dL) 163 H (75-99) mg/dL Calcium (8.4-10.2) mg/dL Total Protein (6.3-8.2) g/dL Albumin (3.5-5.0) g/dL Procalcitonin (0.02-0.09) ng/mL Microbiology - Last 24 Hours (Table) 09/06/20 21:45 Gram Stain - Preliminary Sputum Sputum Culture - Preliminary 09/05/20 03:06 Blood Culture - Preliminary Blood No Growth after 48 hours Assessment and Plan Assessment: [address] elevated myocardial infarction, status post heart catheterization and angioplasty and stenting 2 of the SVG to the RCA 2 Acute hypoxic respiratory failure secondary to acute exacerbation of chronic systolic congestive heart failure. 3 A. fib with RVR , is back into normal sinus rhythm 4 Acute kidney injury, improving and creatinine is 2.01 5 Chronic systolic CHF with ejection fraction of 40-45% 6 Possible underlying pneumonia, pro-calcitonin 0.60, currently on Zosyn, daptomycin and doxycycline. COVID-19 PCR was negative and fully vaccinated 7 Recent history of left big toe amputation site related to osteomyelitis in June 2020, patient remains on daptomycin 8 Diabetes type 2 poorly controlled 9 History of chronic bronchial asthma, mild intermittent 10 Status post four-vessel bypass grafting 11 History of carotid artery disease with bilateral carotid endarterectomy 12 Previous history of right great toe amputation in 2014 13 Peripheral vascular disease with previous stenting of the right lower extremity 14 History of CVA Plan: The patient was seen and evaluated by Dr. Perales CAT scan of the chest and labs reviewed Currently on Zosyn, doxycycline, daptomycin Remains on IV diuretics, in a negative balance Tolerating 15 L high flow nasal cannula O2 saturation in the mid 80s to low 90s Titrate the FiO2 as tolerated We will continue to follow I, the cosigning physician, performed a history & physical examination of the patient. Lungs sounds end expiratory wheeze, crackles in the posterior bases. Maintaining O2 saturations in the mid 80s to low 90's on 15 L high flow nasal cannula. I discussed the assessment and plan of care with my nurse Ashley jimenez. I attest to the above note as dictated by her.
--- NOTE | 2020-09-07 11:40 | P.PN ---
Subjective Progress Note Date: 09/07/20 HISTORY OF PRESENT ILLNESS: This is a 70-year-old female with a past medical history significant for coronary artery disease with previous CABG 4, hypertension, hyperlipidemia, congestive heart failure, peripheral vascular disease, and diabetes mellitus. Patient follows with a Dr. Brown out of [place]. We have been asked to see the patient in consultation for chest pain/stemi. Patient presented to the ER with chest pain. EKG was completed revealing ST elevation in inferior leads and STEMI alert was activated. Patient examined at the bedside in the emergency room. Patient states she began having chest pain yesterday that has progressively gotten worse. She states the pain is in the middle of her chest and in between her shoulder blades. She also reports shortness of breaht. She denies nausea or vomiting. EKG reveals sinus mechanism with ST elevation in inferior leads. ST depression in lateral leads. Chest xray not completed at the time of dictation Laboratory data: not available at time of dictation Current home cardiac medications include Norvasc 10 mg at night, Zocor 40 mg at night, metoprolol succinate 50 mg in the morning, losartan 50 mg daily, Lasix 20 mg daily, aspirin 81 mg daily 08/30/2020 Patient examined this morning at the bedside. She remains in the ICU. Patient underwent cardiac cath yesterday with PCI of the SVG to RCA. Patient denies chest pain or pressure. Denies shortness of breath. She reports nausea this morning and had emesis overnight. Blood pressure 117/63. Telemetry reveals sinus mechanism in the 70-80s. Right groin cath site clean dry with no hematoma noted. Echocardiogram completed revealed ejection fraction 40-45%, mid anteroseptal LV wall hypokinesis, apical septal wall hypokinesis, and mild mitral regurgitation. 08/31/2020 Patient examined this morning at the bedside. She remains in ICU, awaiting a bed on 3S. She denies chest pain or pressure. Denies shortness of breath. She states her nausea and abdominal pain have resolved. She complains of feeling very weak and tired. Blood pressure 122/62. Heart rate in the 80s. 09/01/2020 Patient examined this morning at the bedside. She remains in the intensive care unit. Patient developed some respiratory distress overnight and received a one- time dose of Lasix 40 mg IV. Patient states her breathing has improved this morning. Patient also went into afib with RVR overnight. Patient denies a history of afib. Her metoprolol was increased this morning as well. Vital signs stable. 09/05/2020 Patient examined this morning at the bedside. She remains in the ICU. She was scheduled for PARAM and cardioversion today however patient did convert to sinus mechanism yesterday. PARAM/CV was cancelled for today. She did have a few episodes of afib/flutter overnight per nursing and she converted to SR on her own. Patient this morning is on cardizem at 10mg/hr. Echocardiogram reveals ejection fraction 40-45%. She denies chest pain or pressure. 09/06/2020 Patient examined this morning at bedside. She remains in intensive care unit. Patient denies chest pain or pressure. She states her shortness of breath has improved since yesterday. She remains on Airvo. Telemetry reveals sinus mechanism. She is on IV amiodarone. Blood pressure 125/70. Heart rate in the 80s. 09/07/2020 Patient examined this morning in the intensive care unit. Patient is sitting up in the bed. She denies chest pain or pressure. She remains in sinus mechanism. She has been transitioned to oral amiodarone. She reports some shortness of breath but states it has improved since yesterday. PHYSICAL EXAM: VITAL SIGNS: Reviewed. GENERAL: Well-developed in no acute distress. HEENT: Head is normocephalic. Pupils are equal, round. Sclerae anicteric. Mucous membranes of the mouth are moist. Neck supple. No JVD or thyromegaly LUNGS: Respirations even and unlabored. Lungs diminished bilaterally with bibasilar rales, slightly improved. HEART: Regular rate and rhythm. S1 and S2 heard. EXTREMITIES: Normal range of motion. No clubbing or cyanosis. Peripheral pul ses intact. Trace bilateral lower extremity edema. ASSESSMENT: Acute inferior STEMI, s/p PCI of SVG to RCA Coronary artery disease with previous CABG x 2014 at [place] Peripheral vascular disease with previous right lower extremity stenting per patient New onset paroxysmal atrial fibrillation with RVR Acute on chronic systolic congestive heart failure, EF 40% Hypertension Hyperlipidemia Diabetes Mellitus COPD PLAN: Continue anticoagulation with Eliquis Continue current cardiac medications Continue IV Lasix Continue telemetry monitoring Further recommendations pending patient course Nurse practitioner note has been reviewed by physician. Signing provider agrees with the documented findings, assessment, and plan of care. Objective - Vital Signs Vital signs: Vital Signs Temp 98.4 F 09/07/20 09:00 Pulse 77 09/07/20 09:00 Resp 24 09/07/20 09:00 BP 129/69 09/07/20 09:00 Pulse Ox 94 L 09/07/20 09:00 Intake & Output 09/06/20 09/07/20 09/07/20 18:59 06:59 18:59 Intake Total 590 310 540 Output Total 800 2100 0 Balance -210 -1790 540 Weight 98.3 kg Intake: IV 490 110 130 0.9 Normal Saline @ KVO 40 110 30 Cefepime 1 gm In Sodium 50 Chloride 0.9% 50 ml @ 12. 5 mls/hr IVPB Q12HR JAY Rx#:[id number] Dextrose 5% in Water 1, 300 000 ml @ 50 mls/hr IV . Q23H JAY with Sod Bicarb Syr 8.4% (1 Meq/ml) 150 ml Rx#:[id number] Piperacillin-Tazobactam 3 100 100 .375 gm In Sodium Chloride 0.9% 100 ml @ 25 mls/hr IVPB Q8HR JAY Rx# :[id number] Intake, IV Titration 50 Amount DAPTOmycin 500 mg In 50 Sodium Chloride 0.9% 50 ml @ 100 mls/hr IVPB Q48H JAY Rx#:[id number] Oral 100 200 360 Output: Urine 800 2100 0 Other: Voiding Method Bedside Commode Bedside Commode Bedside Commode # Voids 2 0 - Labs CBC & Chem 7: 09/07/20 03:41 09/07/20 03:41 Labs: Abnormal Lab Results - Last 24 Hours (Table) 09/06/20 09/06/20 09/06/20 Range/Units 04:41 12:48 17:00 WBC (3.8-10.6) k/uL RBC (3.80-5.40) m/uL Hgb (11.4-16.0) gm/dL Hct (34.0-46.0) % BUN (7-17) mg/dL Creatinine (0.52-1.04) mg/dL Glucose (74-99) mg/dL POC Glucose (mg/dL) 290 H 207 H (75-99) mg/dL Calcium (8.4-10.2) mg/dL Total Protein (6.3-8.2) g/dL Albumin (3.5-5.0) g/dL Procalcitonin 0.60 H (0.02-0.09) ng/mL 09/06/20 09/07/20 09/07/20 Range/Units 20:20 03:41 03:41 WBC 11.3 H (3.8-10.6) k/uL RBC 2.99 L (3.80-5.40) m/uL Hgb 9.4 L (11.4-16.0) gm/dL Hct 27.7 L (34.0-46.0) % BUN 66 H (7-17) mg/dL Creatinine 2.01 H (0.52-1.04) mg/dL Glucose 150 H (74-99) mg/dL POC Glucose (mg/dL) 227 H (75-99) mg/dL Calcium 8.1 L (8.4-10.2) mg/dL Total Protein 5.8 L (6.3-8.2) g/dL Albumin 3.2 L (3.5-5.0) g/dL Procalcitonin (0.02-0.09) ng/mL 09/07/20 Range/Units 07:12 WBC (3.8-10.6) k/uL RBC (3.80-5.40) m/uL Hgb (11.4-16.0) gm/dL Hct (34.0-46.0) % BUN (7-17) mg/dL Creatinine (0.52-1.04) mg/dL Glucose (74-99) mg/dL POC Glucose (mg/dL) 163 H (75-99) mg/dL Calcium (8.4-10.2) mg/dL Total Protein (6.3-8.2) g/dL Albumin (3.5-5.0) g/dL Procalcitonin (0.02-0.09) ng/mL Microbiology - Last 24 Hours (Table) 09/06/20 21:45 Gram Stain - Preliminary Sputum Sputum Culture - Preliminary 09/05/20 03:06 Blood Culture - Preliminary Blood No Growth after 48 hours
[2020-09-07 11:42] LABS: Glucose,Whole Blood 344 mg/dL (75-99)
--- NOTE | 2020-09-07 12:31 | P.PN ---
Subjective Progress Note Date: 09/07/20 HISTORY OF PRESENT ILLNESS This is a 70-year-old female patient of Dr. Sanderson with past medical history of diabetes mellitus type 2, hypertension, hyperlipidemia, CVA in 2013 with no residuals, coronary artery disease status post 4 vessel CABG, bilateral carotid endarterectomies, mild intermittent asthma, osteomyelitis status post right great toe amputation 2014 and left toe amputation in June 2020 with revision on August [address] Gregory and patient was discharged home on August 12 with plan for IV vancomycin and oral Flagyl for 4 weeks, remote history of tobacco use area patient came in the hospital due to chest pain that started in the midsternal area and radiated to her left shoulder blade. She also had nausea which has continued. She denies having any epigastric pain. No blood in her stools. She came into the hospital for evaluation and was diagnosed with ST elevated myocardial infarction and was taken directly to the cardiac cath lab radiology technician by Dr. Soto. Heart catheterization revealed occluded SVG to the RCA. Patient subsequently underwent PTCA with successful stenting of the SVG to RCA which was done by Dr. Plata. She then went to the intensive care unit where she is seen this morning. She states the chest pain is completely gone. She continues to have nausea. She states her marketer is Dr. walsh at [facility]. 90% on 2 L nasal cannula. Initial hemoglobin 0.6, white count 8.2, platelet count 239. INR 0.9. Electrolytes normal. BUN 33 and creatinine 1.51. Blood sugar initially 301. Blood sugar is now 170. Magnesium 1.9, total bilirubin 0.4, AST 206, ALT 25, alkaline phosphatase 30. Initial troponin 34.2. ProBNP 4600. Coronavirus PCR not detected. Echocardiogram reveals EF of 40-45%, moderate concentric left hypertrophy, mild aortic valve sclerosis, mild mitral regurgitation. 08/31: Remains in the intensive care unit by scheduled for transfer to the cardiac stepdown unit. She denies having any chest pain. She is on O2 normally has a home O2 at 3 L nasal cannula. She is complaining of some abdominal distention and Senokot will be added. Consult for Dr. Mccabe regarding left great toe wound. Patient is continued on IV vancomycin and oral Flagyl but is also on Bactrim from home. She has been afebrile, heart rate 83, blood pressure 109/49, pulse ox 91% on 3 L nasal cannula. Repeat blood work reveals creatinine of 1.8. Blood sugars are running between 113 187. Repeat blood work ordered for tomorrow. 09/01: Patient went into atrial fibrillation last evening now converted to sinus rhythm. Cardiology has started the patient on eliquis 2.5 mg twice daily and Toprol-XL increased to 75 mg daily. Brilinta changed to Plavix. Lasix is at 40 oral daily but yesterday patient had some hypoxia and was given Xanax and a dose of IV Lasix. She is currently prophylaxing 90% on 6 L nasal cannula. She has been afebrile, heart rate 84, blood pressure 104/73. Patient has been seen by Nae Mccabe with plan to continue vancomycin pharmacy to dose and Flagyl. Chest x- ray reveals reticulonodular infiltrates at the lung bases right greater than left. Correlate for pneumonia. Coronavirus PCR ordered and consult added for pulmonary medicine. Patient is afebrile, heart rate 84, blood pressure 104/73. Repeat blood work reveals WBC 10.3, hemoglobin 9.9, platelet count 255. Sodium 134, potassium 4.5, chloride 103, CO2 23, BUN 31 and creatinine 2.06. Blood sugar running between 101 and 233. Patient is scheduled to transfer to the cardiac stepdown unit. 09/02: She remains in intensive care unit waiting for bed on the cardiac stepdown unit. The patient has been seen by pulmonary medicine for chronic bronchial asthma and fluid overload, and pneumonia ruled out, plan to keep pulse ox between 88 and 92% at her baseline of 3 L nasal cannula. She is currently on 10 L nasal cannula at pulse ox of 90% to be weaned down today. Heart rate 115, afebrile, blood pressure 110/86. Patient received 2 doses of IV Lasix yesterday with improvement of her shortness of breath. Capillary blood glucose running between 107 and 149. Sodium 133, potassium 4.7, chloride 103, CO2 21, BUN 39 and creatinine 2.41. Probable calcitonin 0.34. Consult is in place with nephrology. Repeat chest x-ray reveals some improvement of the aeration left lung. Cardiomegaly and diffuse right lung reticulonodular opacities redemonstrated. 09/03: Patient is seen today in the intensive care unit still waiting for bed on the cardiac stepdown unit. She is sitting up in recliner and appears to have mild shortness of breath. She denies having shortness of breath. 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 Cardiology is following and is planning for a dose of IV Lopressor and if that is not successful, oral Cardizem. Patient has been seen by nephrology and recommended changing vancomycin to daptomycin. Repeat creatinine today is at 2.36. Blood sugars are running between 120 149. 09/04: Patient remains in the intensive care unit waiting for cardiac stepdown unit bed. She continues to have heart rate in the 140s, atrial fibrillation and cardiology has started her on Cardizem drip. There is tentative plan for electrocardioversion tomorrow. Patient denies any new complaints today. Pulse ox is running 90-92% on 6 L nasal cannula. She's been afebrile, blood pressure 104/50. Blood work today reveals sed rate of 126, C-reactive protein 19.5. BUN 15 creatinine 2.05. Blood sugars are running between 128 and 225. Potassium 4.4, CO2 15. Repeat chest x-ray reveals pulmonary venous hypertension and interstitial edema. Difficult to exclude small effusion. Nephrology started bicarb drip. Losartan and potassium are on hold. 09/05: Patient remains in the intensive care unit. Yesterday she developed worsening shortness of breath and pulmonary ordered extra IV Lasix, oxygen was switched over to high flow and she is currently on airflow. She has converted into a sinus rhythm and amiodarone was discontinued. She is currently on Lasix 60 mg IV every 12 hours, continued on bicarbonate drip per nephrology. Repeat chest x-ray reveals congestive heart failure, interstitial edema, may be small pleural effusion, cardiomegaly and postoperative changes. Pulse ox is 93%, afebrile, heart rate 75, respiratory rate 26, blood pressure 126/66. Repeat blood work reveals WBC 4.9, hemoglobin 9.3, platelet count 355. Sodium 132, potassium 4.4, chloride 103, CO2 17, BUN 15 creatinine 1.89. Blood sugars are running 205-315. CK is 174. Levemir will be increased to 20 units twice daily and scheduled NovoLog increased to 7 units with meals. Patient has a memorial service on Friday for her grandson and is hoping to be discharged by then so that she can attend. Cefepime has been added by Dr. Mccabe for pneumonia and patient is continued on daptomycin and oral Flagyl. 09/06: Patient remains in the intensive care unit, she is oxygenating poorly with AirVO but does not recognize this. She is very anxious to get better and be discharged for her grandson's Memorial. Discussed the need for patient to undress and manage her own health concerns as her primary focus. Amiodarone drip transitioned to oral amiodarone at 400 mg twice daily and metoprolol increased to 100 mg daily. She has been afebrile, heart rate 79, blood pressure 125/70, pulse ox 83% on FiO2 93, O2 flow rate 60. Repeat blood work reveals WBC 10.4, hemoglobin 9, platelet count 384. Sodium 133, potassium 3.6, chloride 101, CO2 24, BUN 16 creatinine 1.95. Blood sugars have been running between 188 and 329. Blood sugars are improving.. Blood cultures no growth at 24 hours. Chest x-ray reveals correlate for pneumonia versus edema and congestive heart failure. Stable cardiomegaly. Difficult to exclude pleural effusions. Patient is scheduled for CT chest today. She is continued on IV antibiotics with cefepime and daptomycin. 09/07: Patient remains in the intensive care unit patient is sitting up in bed. She still has had shortness of breath that seems to be more comfortable today. She is off AirVO and is on high flow nasal cannula 15 L with pulse ox running between 88-94%. She has been afebrile, heart rate in the 70s, respiratory rate 24, blood pressure 129/69. Patient remains in sinus rhythm. Repeat blood work reveals WBC 11.3, hemoglobin 9.4, platelet count 408. Electrolytes are normal. BUN 66 and creatinine 2.01. Blood sugars running between 150 and 227. Calcium 8.1. Liver function tests normal. CT of the chest from yesterday revealed patchy and confluent airspace disease throughout the right lung base and with a left lower lobe. Consolidation is more confluent at the lung bases. Small right and left pleural effusions. Correlate for multifocal pneumonia and exclude superimposed patchy pulmonary edema. Possible 1.9 cm left thyroid nodule. Nonemergent thyroid ultrasound recommended. Dr. Mccabe has changed antibiotics for pneumonia from cefepime to Zosyn and doxycycline. Regarding antibiotics, patient is currently on daptomycin, doxycycline, Zosyn. Hospital b ed will be ordered as patient requires out of the bed to be up and elevated 30 to alleviate dyspnea caused by COPD and fluid overload. Patient requires bedside commode because she is room confined due to significant hypoxic respiratory failure. REVIEW OF SYSTEMS Constitutional: No fever, no chills, no night sweats. No weight change. No weakness, Reports fatigue. No daytime sleepiness. EENT: No headache. No blurred vision or double vision, no loss of vision. No loss of Hearing, no ringing in the ears, no dizziness. No nasal drainage or congestion. No epistaxis. No sore throat. Lungs: Reports shortness of breath, reports cough, no sputum production. Reports wheezing. Cardiovascular: No chest pain, reports lower extremity edema. Reports palpitations. No paroxysmal nocturnal dyspnea. No orthopnea. No lightheadedness or dizziness. No syncopal episodes. Abdominal: No abdominal pain. No nausea, vomiting. No diarrhea. reportstipation. No bloody or tarry stools.. No loss of appetite. Genitourinary: No dysuria, increased frequency, urgency. No urinary retention. Musculoskeletal: No myalgias. No muscle weakness, no gait dysfunction, no frequent falls. No back pain. No neck pain. Integumentary: Reports left great toe wounds, no lesions. No rash or pruritus. No unusual bruising. No change in hair or nails. Neurologic: No aphasia. No facial droop. No change in mentation. No head injury. No headache. No paralysis. No paresthesia. Psychiatric: No depression. No anxiety. No mood swings. Endocrine: Elevated blood sugars. PHYSICAL EXAMINATION Gen: This is a 70-year-old obese female. She is resting in bed and appears to be fairly comfortable. HEENT: Head is atraumatic, normocephalic. Pupils equal, round. Sclerae is anicteric. NECK: Supple. No JVD. No lymphadenopathy. No thyromegaly. LUNGS: Diminished breath sounds, bilateral crackles. Mild accessory muscle usage, mild intercostal retractions. HEART: Regular rate and rhythm. No murmur. ABDOMEN: Soft. Bowel sounds are present. No masses. No tenderness. EXTREMITIES: Trace pedal edema. No calf tenderness. Right great toe amputation, left toe amputation. Dressing in place to the left toe amputation site. NEUROLOGICAL: Patient is awake, alert and oriented x3. Cranial nerves 2 through 12 are grossly intact. ASSESSMENT AND PLAN 1. Acute inferior ST elevated myocardial infarction status post heart cathete rization and stenting of the SVG to RCA. Patient to transfer to the cardiac stepdown unit. Continue aspirin 81 mg daily, Toprol-XL 100 mg daily, Plavix 75 mg daily, atorvastatin 80 mg at bedtime. 2. Diabetic and peripheral vascular disease foot ulcer with osteomyelitis status post stump revision. Patient is currently on daptomycin, Zosyn, doxycycline. Consult with Dr. Mccabe appreciated. 3. Diabetes mellitus type 2, insulin requiring, uncontrolled with hyperglycemia. Continue Levemir 20 units twice daily and NovoLog scale and NovoLog 7 units with each meal. 4. New onset atrial fibrillation with RVR, paroxysmal atrial fibrillation. Continue Toprol-XL 100 mg daily, amiodarone 400 mg twice daily, eliquis 2.5 mg twice daily. Patient is in sinus rhythm. 5. Acute on chronic hypoxic respiratory failure secondary to acute systolic heart failure and pneumonia, possible gram-negative. COVID-19 testing negative. Pulmonary consult appreciated. Continue DuoNeb treatments 4 times daily as needed, Symbicort twice daily, IV Lasix 60 mg every 12 hours, monitor daily weights and I&O. Antibiotics are currently Zosyn, doxycycline. 6. Acute kidney injury with metabolic acidosis. Consult with nephrology appreciated. Losartan and potassium on hold. 7. Peripheral vascular disease with previous stenting of the right lower extremity. Patient regularly follows with Dr. Gregory. 8. Coronary artery disease with previous history of 4 vessel CABG. Patient's marketer is Dr. Brown at [facility]. 9. Chronic systolic heart failure, stable. Continue as above. 10. COPD. Continue DuoNeb treatment, Symbicort, Singulair. 11. History of CVA, stable. 12. Hyperlipidemia. Continue atorvastatin 80 mg at bedtime 13. Hypertension. Continue Toprol-XL. 14. Recurrent depression. Continue Cymbalta 60 mg daily 15. Chronic hypoxic respiratory failure on home O2 at 3 L. 16. Mild intermittent asthma, stable. 17. COVID-19 testing negative. Patient has been hospitalized during a pandemic. DISCHARGE PLAN Home with [facility]. Impression and plan of care have been directed as dictated by the signing physician. Emily Higginbotham nurse practitioner acting as scribe for signing physician. Objective - Vital Signs Vital signs: Vital Signs Temp 98.4 F 09/07/20 09:00 Pulse 77 09/07/20 09:00 Resp 24 09/07/20 09:00 BP 129/69 09/07/20 09:00 Pulse Ox 94 L 09/07/20 09:00 Intake & Output 09/06/20 09/07/20 09/07/20 18:59 06:59 18:59 Intake Total 590 310 540 Output Total 800 2100 0 Balance -210 -1790 540 Weight 98.3 kg Intake: IV 490 110 130 0.9 Normal Saline @ KVO 40 110 30 Cefepime 1 gm In Sodium 50 Chloride 0.9% 50 ml @ 12. 5 mls/hr IVPB Q12HR JAY Rx#:[id number] Dextrose 5% in Water 1, 300 000 ml @ 50 mls/hr IV . Q23H JAY with Sod Bicarb Syr 8.4% (1 Meq/ml) 150 ml Rx#:[id number] Piperacillin-Tazobactam 3 100 100 .375 gm In Sodium Chloride 0.9% 100 ml @ 25 mls/hr IVPB Q8HR JAY Rx# :[id number] Intake, IV Titration 50 Amount DAPTOmycin 500 mg In 50 Sodium Chloride 0.9% 50 ml @ 100 mls/hr IVPB Q48H JAY Rx#:[id number] Oral 100 200 360 Output: Urine 800 2100 0 Other: Voiding Method Bedside Commode Bedside Commode Bedside Commode # Voids 2 0 - Labs CBC & Chem 7: 09/07/20 03:41 09/07/20 03:41 Labs: Abnormal Lab Results - Last 24 Hours (Table) 09/06/20 09/06/20 09/06/20 Range/Units 04:41 12:48 17:00 WBC (3.8-10.6) k/uL RBC (3.80-5.40) m/uL Hgb (11.4-16.0) gm/dL Hct (34.0-46.0) % BUN (7-17) mg/dL Creatinine (0.52-1.04) mg/dL Glucose (74-99) mg/dL POC Glucose (mg/dL) 290 H 207 H (75-99) mg/dL Calcium (8.4-10.2) mg/dL Total Protein (6.3-8.2) g/dL Albumin (3.5-5.0) g/dL Procalcitonin 0.60 H (0.02-0.09) ng/mL 09/06/20 09/07/20 09/07/20 Range/Units 20:20 03:41 03:41 WBC 11.3 H (3.8-10.6) k/uL RBC 2.99 L (3.80-5.40) m/uL Hgb 9.4 L (11.4-16.0) gm/dL Hct 27.7 L (34.0-46.0) % BUN 66 H (7-17) mg/dL Creatinine 2.01 H (0.52-1.04) mg/dL Glucose 150 H (74-99) mg/dL POC Glucose (mg/dL) 227 H (75-99) mg/dL Calcium 8.1 L (8.4-10.2) mg/dL Total Protein 5.8 L (6.3-8.2) g/dL Albumin 3.2 L (3.5-5.0) g/dL Procalcitonin (0.02-0.09) ng/mL 09/07/20 Range/Units 07:12 WBC (3.8-10.6) k/uL RBC (3.80-5.40) m/uL Hgb (11.4-16.0) gm/dL Hct (34.0-46.0) % BUN (7-17) mg/dL Creatinine (0.52-1.04) mg/dL Glucose (74-99) mg/dL POC Glucose (mg/dL) 163 H (75-99) mg/dL Calcium (8.4-10.2) mg/dL Total Protein (6.3-8.2) g/dL Albumin (3.5-5.0) g/dL Procalcitonin (0.02-0.09) ng/mL Microbiology - Last 24 Hours (Table) 09/06/20 21:45 Gram Stain - Preliminary Sputum Sputum Culture - Preliminary 09/05/20 03:06 Blood Culture - Preliminary Blood No Growth after 48 hours
[2020-09-07 16:22] LABS: Glucose,Whole Blood 296 mg/dL (75-99)
[2020-09-07 20:39] LABS: Glucose,Whole Blood 252 mg/dL (75-99)
[2020-09-07] MEDS: MONTELUKAST 10 MG TAB PO SCH (20:46)
[2020-09-07] MEDS: ATORVASTATIN 80 MG TAB PO SCH (20:46)
--- NOTE | 2020-09-07 23:01 | PN ---
PROGRESS NOTE DATE OF SERVICE: 09/07/2020 REASON FOR FOLLOWUP: 1. left big toe amputation site and osteomyelitis. 2. Pneumonia. INTERVAL HISTORY: The patient is afebrile. The patient mentioned that she is feeling slightly better today. She has been able to breathe more comfortably. The patient denies having any chest pain. Continues to have a cough; no worsening sputum production. No abdominal pain. No diarrhea. No pain to the left big toe amputation site. PHYSICAL EXAMINATION: Blood pressure is 115/59, pulse of 79, temperature 98.2. She is 96% on 15 high-flow oxygen. General description is an elderly female up in the chair in no distress. RESPIRATORY SYSTEM: Unlabored breathing with decreased breath sounds at the base. No wheeze. HEART: S1, S2. Regular rate and rhythm. ABDOMEN: Soft. No tenderness. EXTREMITIES: No edema of the feet. LABS: Hemoglobin is 9.4, white count 11.2, BUN of 66, creatinine is 2.01. DIAGNOSTIC IMPRESSION AND PLAN: 1. Patient with left big toe amputation site osteomyelitis. Was on vancomycin. Transition to daptomycin because of kidney failure. Kidney function is stable. 2. Pneumonia with some improvement in symptoms after addition of Zosyn; to continue while waiting for the sputum culture to finalize and monitor her clinical course closely. MMODL / IJN: [id number] /
[2020-09-08] MEDS: PIPERACILLIN-TAZOBACTAM 3.375 GM in SODIUM CHLORIDE 0.9% 100 ML IVPB SCH ×4 (02:46→23:32)
[2020-09-08] MEDS: methylPREDNISolone SOD SUCCI 40 MG/ML 1 ML VIAL IV SCH ×2 (02:46→08:05)
[2020-09-08 03:36] LABS: Glucose,Whole Blood 124 mg/dL (75-99)
[2020-09-08 05:34] LABS: HCT 26.6 % (34.0-46.0); HGB 9.1 gm/dL (11.4-16.0); MCH 31.4 pg (25.0-35.0); MCHC 34.1 g/dL (31.0-37.0); MCV 92.1 fL (80.0-100.0); Mean Platelet Volume 7.1; Platelet Count 415 k/uL (150-450); RBC 2.89 m/uL (3.80-5.40); RDW 14.3 % (11.5-15.5); WBC 12.7 k/uL (3.8-10.6)
[2020-09-08 05:48] LABS: Albumin 3.3 g/dL (3.5-5.0); Calcium 8.1 mg/dL (8.4-10.2); Potassium 3.6 mmol/L (3.5-5.1); Total Bilirubin 0.4 mg/dL (0.2-1.3); Total Protein 5.8 g/dL (6.3-8.2)
[2020-09-08 07:43] LABS: Glucose,Whole Blood 139 mg/dL (75-99)
[2020-09-08] MEDS: INSULIN ASPART (NovoLOG) 100 UNIT/ML VIAL SQ SCH ×7 (08:01→20:09)
[2020-09-08] MEDS: CLOPIDOGREL 75 MG TAB PO SCH (08:04)
[2020-09-08] MEDS: APIXABAN 2.5 MG TABLET PO SCH ×2 (08:04→20:09)
[2020-09-08] MEDS: ASPIRIN 81 MG PO SCH (08:04)
[2020-09-08] MEDS: AMIODARONE 200 MG TAB PO SCH ×2 (08:04→20:09)
[2020-09-08] MEDS: INSULIN DETEMIR (LEVEMIR) 100 UNIT/ML SYR SQ SCH ×2 (08:04→21:03)
[2020-09-08] MEDS: FUROSEMIDE 10 MG/ML 10 ML VIAL IV SCH ×2 (08:05→20:08)
[2020-09-08] MEDS: DOXYCYCLINE 100 MG CAP PO SCH ×2 (08:05→21:02)
[2020-09-08] MEDS: DULoxetine HCL 60 MG CAPSULE.DR PO SCH (08:05)
[2020-09-08] MEDS: METOPROLOL SUCCINATE (ER) 100 MG TAB.ER.24H PO SCH (08:05)
[2020-09-08] MEDS: SENNOSIDES-DOCUSATE SODIUM 1 EACH TAB PO SCH (08:06)
[2020-09-08] MEDS: SYMBICORT 160-4.5 MCG INHALER INHALATION SCH ×2 (08:11→19:55)
--- NOTE | 2020-09-08 09:26 | P.PN ---
Subjective Progress Note Date: 09/08/20 Principal diagnosis: Coronary artery disease/paroxysmal atrial fibrillation This is a 70-year-old female patient was coronary artery disease and prior open heart surgery with bypasses as well as hypertension and dyslipidemia and paroxysmal atrial fibrillation presented to the hospital with a chest discomfort and was diagnosed with acute inferior ST patient myocardial infarction which she underwent an emergent heart catheterization was found acute total occlusion of a larger graft to the RCA was a large thrombus burden beach she underwent an aspiration thrombectomy manually and mechanically. The patient subsequently went into atrial fibrillation with RVR. Then she was converted to normal sinus mechanism on amiodarone. The patient was seen this morning. She is definitely doing better clinically. Her chest is more clear on examination. Hemodynamically she has been maintaining normal sinus mechanism. The creatinine is better. She continues to be on Lasix 60 mg IV twice a day which I would probably continue for additional 24 hours and switch her to Lasix by mouth after that. She is on antiplatelet as well as anticoagulation. From the cardiovascular standpoint of view, the patient can be transferred to the floor Objective - Vital Signs Vital signs: Vital Signs Temp 98.2 F 09/08/20 08:00 Pulse 79 09/08/20 08:00 Resp 22 09/08/20 08:00 BP 108/98 09/08/20 05:00 Pulse Ox 88 L 09/08/20 08:00 Intake & Output 09/07/20 09/08/20 09/08/20 18:59 06:59 18:59 Intake Total 1690 120 45 Output Total 500 1400 300 Balance 1190 -1280 -255 Weight 96 kg Intake: IV 300 120 45 0.9 Normal Saline @ KVO 100 120 20 Piperacillin-Tazobactam 3 200 25 .375 gm In Sodium Chloride 0.9% 100 ml @ 25 mls/hr IVPB Q8HR JAY Rx# :[id number] Intake, IV Titration 50 Amount DAPTOmycin 500 mg In 50 Sodium Chloride 0.9% 50 ml @ 100 mls/hr IVPB Q48H JAY Rx#:[id number] Oral 1340 Output: Urine 500 1400 300 Other: Voiding Method Bedside Commode Bedside Commode # Voids 0 1 # Bowel Movements 1 - Constitutional General appearance: Present: no acute distress - Respiratory Respiratory: bilateral: CTA - Cardiovascular Rhythm: regular Heart sounds: normal: S1, S2 - Labs CBC & Chem 7: 09/08/20 04:07 09/08/20 04:07 Labs: Abnormal Lab Results - Last 24 Hours (Table) 09/07/20 09/07/20 09/07/20 Range/Units 11:40 16:21 20:38 WBC (3.8-10.6) k/uL RBC (3.80-5.40) m/uL Hgb (11.4-16.0) gm/dL Hct (34.0-46.0) % BUN (7-17) mg/dL Creatinine (0.52-1.04) mg/dL Glucose (74-99) mg/dL POC Glucose (mg/dL) 344 H 296 H 252 H (75-99) mg/dL Calcium (8.4-10.2) mg/dL Total Protein (6.3-8.2) g/dL Albumin (3.5-5.0) g/dL 09/08/20 09/08/20 09/08/20 Range/Units 03:34 04:07 04:07 WBC 12.7 H (3.8-10.6) k/uL RBC 2.89 L (3.80-5.40) m/uL Hgb 9.1 L (11.4-16.0) gm/dL Hct 26.6 L (34.0-46.0) % BUN 67 H (7-17) mg/dL Creatinine 1.81 H (0.52-1.04) mg/dL Glucose 109 H (74-99) mg/dL POC Glucose (mg/dL) 124 H (75-99) mg/dL Calcium 8.1 L (8.4-10.2) mg/dL Total Protein 5.8 L (6.3-8.2) g/dL Albumin 3.3 L (3.5-5.0) g/dL 09/08/20 Range/Units 07:41 WBC (3.8-10.6) k/uL RBC (3.80-5.40) m/uL Hgb (11.4-16.0) gm/dL Hct (34.0-46.0) % BUN (7-17) mg/dL Creatinine (0.52-1.04) mg/dL Glucose (74-99) mg/dL POC Glucose (mg/dL) 139 H (75-99) mg/dL Calcium (8.4-10.2) mg/dL Total Protein (6.3-8.2) g/dL Albumin (3.5-5.0) g/dL Microbiology - Last 24 Hours (Table) 09/05/20 03:06 Blood Culture - Preliminary Blood No Growth after 72 hours 09/06/20 21:45 Gram Stain - Preliminary Sputum Sputum Culture - Preliminary Assessment and Plan Assessment: Assessment #1 acute coronary syndrome #2 atrial flutter/SVT. The patient converted to normal sinus mechanism #3 CAD and prior CABG #4 known paroxysmal atrial fibrillation #5 multiple comorbid conditions Plan #1 continue the current medical regimen #2 continue amiodarone by mouth #3 continue antiplatelet and anticoagulation #4 continue IV Lasix for additional 24 hours #5 follow-up with the patient
[2020-09-08] MEDS ORDERED: POTASSIUM CHLORIDE ER 20 MEQ TAB.ER PO STA (09:39)
--- NOTE | 2020-09-08 09:40 | P.PN ---
Subjective Patient is seen in follow-up for acute kidney injury. Renal function better. Blood pressure stable. No vomiting or diarrhea. Currently on 10 L high flow cannula. Good urine output. No changes overnight. Vital signs are stable. General: On airvo. HEENT: Head exam is unremarkable. LUNGS: Breath sounds decreased. HEART: Regular rate and rhythm. ABDOMEN: Soft, no distention. EXTREMITITES: 1+ edema. Objective - Vital Signs Vital signs: Vital Signs Temp 98.2 F 09/08/20 08:00 Pulse 79 09/08/20 09:00 Resp 19 09/08/20 09:00 BP 108/98 09/08/20 05:00 Pulse Ox 88 L 09/08/20 09:00 Intake & Output 09/07/20 09/08/20 09/08/20 18:59 06:59 18:59 Intake Total 1690 120 45 Output Total 500 1400 300 Balance 1190 -1280 -255 Weight 96 kg Intake: IV 300 120 45 0.9 Normal Saline @ KVO 100 120 20 Piperacillin-Tazobactam 3 200 25 .375 gm In Sodium Chloride 0.9% 100 ml @ 25 mls/hr IVPB Q8HR JAY Rx# :[id number] Intake, IV Titration 50 Amount DAPTOmycin 500 mg In 50 Sodium Chloride 0.9% 50 ml @ 100 mls/hr IVPB Q48H JAY Rx#:[id number] Oral 1340 Output: Urine 500 1400 300 Other: Voiding Method Bedside Commode Bedside Commode # Voids 0 1 # Bowel Movements 1 - Labs CBC & Chem 7: 09/08/20 04:07 09/08/20 04:07 Labs: Abnormal Lab Results - Last 24 Hours (Table) 09/07/20 09/07/20 09/07/20 Range/Units 11:40 16:21 20:38 WBC (3.8-10.6) k/uL RBC (3.80-5.40) m/uL Hgb (11.4-16.0) gm/dL Hct (34.0-46.0) % BUN (7-17) mg/dL Creatinine (0.52-1.04) mg/dL Glucose (74-99) mg/dL POC Glucose (mg/dL) 344 H 296 H 252 H (75-99) mg/dL Calcium (8.4-10.2) mg/dL Total Protein (6.3-8.2) g/dL Albumin (3.5-5.0) g/dL 09/08/20 09/08/20 09/08/20 Range/Units 03:34 04:07 04:07 WBC 12.7 H (3.8-10.6) k/uL RBC 2.89 L (3.80-5.40) m/uL Hgb 9.1 L (11.4-16.0) gm/dL Hct 26.6 L (34.0-46.0) % BUN 67 H (7-17) mg/dL Creatinine 1.81 H (0.52-1.04) mg/dL Glucose 109 H (74-99) mg/dL POC Glucose (mg/dL) 124 H (75-99) mg/dL Calcium 8.1 L (8.4-10.2) mg/dL Total Protein 5.8 L (6.3-8.2) g/dL Albumin 3.3 L (3.5-5.0) g/dL 09/08/20 Range/Units 07:41 WBC (3.8-10.6) k/uL RBC (3.80-5.40) m/uL Hgb (11.4-16.0) gm/dL Hct (34.0-46.0) % BUN (7-17) mg/dL Creatinine (0.52-1.04) mg/dL Glucose (74-99) mg/dL POC Glucose (mg/dL) 139 H (75-99) mg/dL Calcium (8.4-10.2) mg/dL Total Protein (6.3-8.2) g/dL Albumin (3.5-5.0) g/dL Microbiology - Last 24 Hours (Table) 09/05/20 03:06 Blood Culture - Preliminary Blood No Growth after 72 hours 09/06/20 21:45 Gram Stain - Preliminary Sputum Sputum Culture - Preliminary Assessment and Plan Plan: Assessment: 1. Acute kidney injury secondary to ATN secondary to contrast-induced acute kidney injury, hemodynamic instability and vancomycin. Also component of cardiorenal syndrome now. Renal function better - creatinine 1.81 today. Baseline creatinine near 1. 2. Metabolic acidosis secondary to acute kidney injury and IV fluids. Resolved. 3. A. fib with RVR maintained on amiodarone and Lopressor. Cardiology followin g. 4. Chronic systolic CHF with ejection fraction of 40-45%. 5. Acute CT status post cardiac catheterization with stent placement on 08/29/2020. 6. Hyponatremia secondary to hyperglycemia. Hypervolemic. Improved. 7. Hypokalemia from diuresis. Plan: Maintain IV Lasix. Continue to monitor renal function and urine output. Wean FiO2. Replace potassium.
--- NOTE | 2020-09-08 10:11 | P.PN ---
Subjective Progress Note Date: 09/08/20 70-year-old female that typically sees Dr. Rojas for her chronic bronchial asthma. The patient came in to the wound center, for hyperbaric treatment, on August 29. Apparently that time, she was having shortness of breath, and chest pain. She was immediately sent to the emergency room. She was thought to have an ST segment elevation myocardial infarction, and with the catheterization laboratory and had stents placed. She's in the intensive care unit now. She is on 6 L nasal cannula. Normally she wears 2-3 L. Anyway, we are asked to see her because of the worsening shortness of breath, and to rule out pneumonia. The patient denies any fever or chills. The patient denies cough or phlegm production. Her chest x-ray lipase and shows borderline cardiomegaly and some interstitial changes and small effusions consistent with heart failure. In addition, her troponins were elevated, and her BMP was elevated as well. In my opinion, nothing really points towards pneumonia as an etiology of her worsening shortness of breath. In addition, it does not appear that her asthma is particularly active this time also. She's not wheezing, or having any chest tightness. The patient states that she was recently in the hospital 3 weeks ago with an episode of heart failure as well. Her medical history includes hypertension, CAD, hyperlipidemia, asthma, diabetes, and nonhealing ulcers of the lower extremities. The patient also has a history of CVA, rheumatoid arthritis, and previous amputations of the digits of the foot for nonhealing wounds. White count 10.3, hemoglobin 9.9, hematocrit 28.6, and platelet count 255,000. Sodium 134, potassium 4.5, chlorides 103, CO2 23, anion gap is 8, BUN 31, creatinine 2.06. N-terminal proBNP is 4600. Troponins were 34.2 and 59.7 respectively. Progress note dated 09/02/2020. 70-year-old female with a history of chronic bronchial asthma. The patient was admitted to the hospital via the emergency room, with ST segment elevation myocardial infarction. She had stents placed in the catheterization laboratory. She came to the intensive care unit for further monitoring and treatment. She was thought to possibly have pneumonia. We thought her problem was primarily heart failure. She responded very nicely to Lasix therapy. She is resting c omfortably now. She is on high flow nasal O2 at 10 L. She's not receiving any IV fluids. Labs today include a sodium 133 potassium 4.7, chlorides 103, CO2 21, and anion gap of 9. BUN and creatinine were 39 and 2.41 respectively. Pro- calcitonin level was 0.34. Chest x-ray is improved. Progress note dated 09/03/2020. 70-year-old female again seen in the intensive care unit, room 258. She has a history of chronic bronchial asthma. She was admitted to the hospital through the emergency room, with ST segment elevation myocardial infarction. She had stents placed in the catheterization laboratory. She came back to the intensive care unit for further monitoring and treatment. She was thought to have pneumonia, for which we were consulted. We felt the problem was primarily CHF/heart failure. The patient has responded very nicely to Lasix therapy. Currently resting comfortably. She is on cefepime HEENT and daptomycin for a foot wound. She's not receiving any IV fluids. She is on 6 L nasal O2. Cardizem will be started for atrial fibrillation. She denies any chest pain. Currently, her glucose is 144 and her creatinine is 2.36. The x-rays from the and are reviewed. On 09/04/2020 patient seen in follow-up in the intensive care unit. She is awake and alert, oriented 3, she is currently on 6 L of oxygen her pulse ox is 90-92%, she is mildly short of breath with conversation, but appears to be in no acute respiratory distress. She remains in A. fib and the rate is tachycardic with a heart rate between 125-140 BPM, she is on Eliquis for 2.5 mg twice daily for anticoagulation and she is on Cardizem at 10 mg per hour. She's been afebrile, she is not requiring any vasopressor support, today's chest x-ray shows pulmonary venous hypertension and interstitial edema and a small pleural effusion on the right was difficult to exclude. Patient is on lactated Ringer's had a rate of 75 ML per hour, she's had no nausea vomiting or diarrhea. Patient remains on antibiotics with a combination of cefepime and daptomycin for recent history of osteomyelitis in her left big toe, status post recent amputation of the left great toe. ID service is following. The area of amputated toe is healing well. The incision is clean dry and intact, no drainage. These labs have been reviewed, ESR is elevated at 126, and CRP also remains elevated at 19.5. Sodium is 134, potassium is 4.4, CO2 is 15, BUN is 50, and creatinine is 2.05. Urology is following and recommended to switch to IV fluids from lactated Ringer's to bicarbonate infusion with D5W with 3 A of bicarbonate at a rate of 50 ML per hour. 09/05/2020, the patient is being seen for follow-up. Yesterday, the patient had worsening shortness of breath and she decompensated and afternoon. I reevalua edith her. She was in pulmonary edema. She was started on tachycardia. She was also bronchospastic and wheezy. At that point, I give the patient another dose of Lasix. I started on IV Solu-Medrol. She did respond also to high flow oxygen and she was placed on high flow oxygen with an FiO2 of 80% and a flow of 60 L per minute. This morning she is doing much better. Her heart rate has slowed down significantly. She converted into normal sinus rhythm and the patient is currently on Cardizem 5 mg an hour drip, amiodarone was discontinued and the patient is still on Eliquis 2.5 mg by mouth twice a day for long-term anticoagulation. She was given Lasix. Fluid balance has been essentially 0 balance the patient remains on Lasix 60 mg IV every 12 hours. The patient is also on a bicarb infusion with a total of 150 mEq of sodium bicarb running at the rate of 50 mL an hour. Her serum bicarb is up to 17 on today's evaluation. Creatinine is down to 1.8. Nephrology is also on the case regarding her kidney failure. The patient remains on broad-spectrum antibiotics regarding osteomyelitis of the left big toe that was already amputated and the patient remains on a combination of cefepime, daptomycin and she is afebrile hemodynamically stable and the surgical wound site is dry clean and intact without any evidence of drainage. The patient's pulse ox is currently 96% on an FiO2 of 80% with a flow of 60 L. The patient is seen today 09/06/2020 in follow-up in the intensive care unit. She is currently awake and alert in no acute distress. She is however still requiring AirVo high flow oxygen at 60 L and 93% FiO2 to maintain O2 saturation in the 80s. Her cough is dry and nonproductive. Chest x-ray shows cardiomegaly, increasing interstitium, bilateral airspace disease left greater than right. She is currently on Lasix 60 mg IV every 12 hours. In a -750 ML balance. Blood cultures reveal no growth. She remains afebrile. White count 10.4. Hemoglobin 9.0. Sodium 133. Potassium 3.6. Creatinine 1.95. Currently in sinus rhythm. Her amiodarone drip will be finishing and she'll be transitioned to oral Cordarone 400 mg twice a day. She is on Orencia for her rheumatoid arthritis. She remains on Symbicort, DuoNeb inhalations, IV Solu- Medrol, Singulair. Anticoagulated with Eliquis. Insulin being adjusted. She remains on a bicarb drip at 50 MLS per hour. The patient is seen today 09/07/2020 in follow-up in the intensive care unit. She is currently sitting up in bed. Awake and alert in no acute distress. She is now on 15 L high flow nasal cannula and maintaining O2 saturations 88-94%. Chest x-ray reveals patchy and confluent airspace disease throughout the right lung and within the left lower lobe. Small bilateral effusions. Suspect multifocal pneumonia with superimposed pulmonary edema. She remains on Lasix 60 mg IV every 12 hours. Currently in a -2 L balance. Antibiotics are now doxycycline, daptomycin and Zosyn. Blood cultures reveal no growth. Sputum culture pending. She is continued on IV Solu-Medrol, Symbicort, DuoNeb inhalations, Singulair. White count 11.3. Hemoglobin 9.4. Sodium 137. Potassium 3.9. Creatinine 2.01. Glucose 150. Remains on Levemir, sliding scale. Currently in sinus rhythm. Continued on amiodarone. Anticoagulated with Eliquis. Patient is seen today 09/08/2020 in follow-up in the intensive care unit. She is awake and alert in no acute distress. Doing quite a bit better again today compared to yesterday. She is down to 11 L high flow nasal cannula with O2 saturation 91%. She is sitting up in a chair at the bedside. She remains in sinus rhythm. Continued on oral amiodarone. Anticoagulated with Eliquis. Was in a negative balance yesterday of 2 L. Currently in a negative of 90 ML's. Creatinine 1.8 today. She continues with some lower extremity edema. She remains on IV Lasix 60 mg twice a day. She is continued on antibiotics in the form of daptomycin, Zosyn, doxycycline. IV Solu-Medrol. Blood cultures reveal no growth. Sputum culture pending. White count 12.7. Hemoglobin 9.1. Sodium 137. Potassium 3.6. Glucose 139. Objective - Vital Signs Vital signs: Vital Signs Temp 98.2 F 09/08/20 08:00 Pulse 79 09/08/20 09:00 Resp 19 09/08/20 09:00 BP 108/98 09/08/20 05:00 Pulse Ox 88 L 09/08/20 09:00 Intake & Output 09/07/20 09/08/20 09/08/20 18:59 06:59 18:59 Intake Total 1690 120 45 Output Total 500 1400 300 Balance 1190 -1280 -255 Weight 96 kg Intake: IV 300 120 45 0.9 Normal Saline @ KVO 100 120 20 Piperacillin-Tazobactam 3 200 25 .375 gm In Sodium Chloride 0.9% 100 ml @ 25 mls/hr IVPB Q8HR JAY Rx# :[id number] Intake, IV Titration 50 Amount DAPTOmycin 500 mg In 50 Sodium Chloride 0.9% 50 ml @ 100 mls/hr IVPB Q48H JAY Rx#:[id number] Oral 1340 Output: Urine 500 1400 300 Other: Voiding Method Bedside Commode Bedside Commode # Voids 0 1 # Bowel Movements 1 - Exam GENERAL EXAM: Alert, very pleasant, 70-year-old female, on 11 L high flow nasal cannula with O2 saturations 91%, up in a chair, in no apparent distress. HEAD: Normocephalic/atraumatic. EYES: Normal reaction of pupils, equal size. Conjunctiva pink, sclera white. NOSE: Clear with pink turbinates. THROAT: No erythema or exudates. NECK: No masses, no JVD, no thyroid enlargement, no adenopathy. CHEST: No chest wall deformity. Symmetrical expansion. LUNGS: Equal air entry with mild expiratory wheezes, posterior crackles CVS: Regular rate and rhythm, normal S1 and S2, no gallops, no murmurs, no rubs ABDOMEN: Soft, nontender. No hepatosplenomegaly, normal bowel sounds, no guarding or rigidity. EXTREMITIES: No clubbing, no edema, no cyanosis, 2+ pulses and upper and lower extremities. MUSCULOSKELETAL: Muscle strength and tone normal. Patient has bilateral great toes amputated, incisions are clean dry and intact, well-healed SPINE: No scoliosis or deformity SKIN: No rashes CENTRAL NERVOUS SYSTEM: No focal deficits, tone is normal in all 4 extremities. PSYCHIATRIC: Alert and oriented -3. Appropriate affect. Intact judgment and insight. - Labs CBC & Chem 7: 09/08/20 04:07 09/08/20 04:07 Labs: Abnormal Lab Results - Last 24 Hours (Table) 09/07/20 09/07/20 09/07/20 Range/Units 11:40 16:21 20:38 WBC (3.8-10.6) k/uL RBC (3.80-5.40) m/uL Hgb (11.4-16.0) gm/dL Hct (34.0-46.0) % BUN (7-17) mg/dL Creatinine (0.52-1.04) mg/dL Glucose (74-99) mg/dL POC Glucose (mg/dL) 344 H 296 H 252 H (75-99) mg/dL Calcium (8.4-10.2) mg/dL Total Protein (6.3-8.2) g/dL Albumin (3.5-5.0) g/dL 09/08/20 09/08/20 09/08/20 Range/Units 03:34 04:07 04:07 WBC 12.7 H (3.8-10.6) k/uL RBC 2.89 L (3.80-5.40) m/uL Hgb 9.1 L (11.4-16.0) gm/dL Hct 26.6 L (34.0-46.0) % BUN 67 H (7-17) mg/dL Creatinine 1.81 H (0.52-1.04) mg/dL Glucose 109 H (74-99) mg/dL POC Glucose (mg/dL) 124 H (75-99) mg/dL Calcium 8.1 L (8.4-10.2) mg/dL Total Protein 5.8 L (6.3-8.2) g/dL Albumin 3.3 L (3.5-5.0) g/dL 09/08/20 Range/Units 07:41 WBC (3.8-10.6) k/uL RBC (3.80-5.40) m/uL Hgb (11.4-16.0) gm/dL Hct (34.0-46.0) % BUN (7-17) mg/dL Creatinine (0.52-1.04) mg/dL Glucose (74-99) mg/dL POC Glucose (mg/dL) 139 H (75-99) mg/dL Calcium (8.4-10.2) mg/dL Total Protein (6.3-8.2) g/dL Albumin (3.5-5.0) g/dL Microbiology - Last 24 Hours (Table) 09/05/20 03:06 Blood Culture - Preliminary Blood No Growth after 72 hours 09/06/20 21:45 Gram Stain - Preliminary Sputum Sputum Culture - Preliminary Assessment and Plan Assessment: [address] elevated myocardial infarction, status post heart catheterization and angioplasty and stenting 2 of the SVG to the RCA 2 Acute hypoxic respiratory failure secondary to acute exacerbation of chronic systolic congestive heart failure. 3 A. fib with RVR , is back in normal sinus rhythm 4 Acute kidney injury, improving and creatinine is 2.01 5 Chronic systolic CHF with ejection fraction of 40-45% 6 Possible underlying pneumonia, pro-calcitonin 0.60, currently on Zosyn, daptomycin and doxycycline. COVID-19 PCR was negative and fully vaccinated 7 Recent history of left big toe amputation site related to osteomyelitis in June 2020, patient remains on daptomycin 8 Diabetes type 2 better controlled 9 History of chronic bronchial asthma, mild intermittent 10 Status post four-vessel bypass grafting 11 History of carotid artery disease with bilateral carotid endarterectomy 12 Previous history of right great toe amputation in 2014 13 Peripheral vascular disease with previous stenting of the right lower extremity 14 History of CVA Plan: The patient was seen and evaluated by Dr. Perales Currently on Zosyn, doxycycline, daptomycin Remains on IV diuretics, in a negative balance Down to 11 L high flow nasal cannula to continue to titrate DC IV Solu-Medrol, start a prednisone taper Follow-up chest x-ray in the a.m. Transfer her out to 3 S. today We will continue to follow I, the cosigning physician, performed a history & physical examination of the patient. Lungs sounds end expiratory wheeze, crackles in the posterior bases. Maintaining O2 saturations in the mid 80s to low 90's on 11 L high flow nasal cannula. I discussed the assessment and plan of care with my nurse practitioner, Ashley Xiao. I attest to the above note as dictated by her.
[2020-09-08 11:36] LABS: Glucose,Whole Blood 224 mg/dL (75-99)
[2020-09-08 16:46] LABS: Glucose,Whole Blood 166 mg/dL (75-99)
[2020-09-08 17:31] LABS: % Iron Saturation 21.88 (12.00-45.00)
--- NOTE | 2020-09-08 18:36 | PN ---
PROGRESS NOTE DATE OF SERVICE: 09/08/2020 REASON FOR FOLLOWUP: 1. Left big toe osteomyelitis. 2. Pneumonia. INTERVAL HISTORY: The patient is currently afebrile. The patient is breathing more comfortably. The patient denies having any chest pain or shortness of breath. She did have a cough with congestion. No abdominal pain or diarrhea. PHYSICAL EXAMINATION: Blood pressure 124/70, pulse of 70, temperature 98. She is 90% on 12 L high-flow oxygen. General description is an elderly female up in the bed in no distress. RESPIRATORY SYSTEM: Unlabored breathing with decreased breath sounds at the base. No wheeze. HEART: S1, S2. Regular rate and rhythm. ABDOMEN: Soft. No tenderness. Left big toe dorsum wound has no significant redness or drainage. LABS: Hemoglobin is 9.1, white count 12.7, BUN of 67, creatinine 1.81. DIAGNOSTIC IMPRESSION AND PLAN: 1. Patient with left big toe osteomyelitis, treated with vancomycin. Currently on daptomycin; to continue to finish her course of therapy. 2. Patient with pneumonia. Sputum culture pending. Clinically responding to Zosyn; to continue while waiting for the culture to finalize and continue with supportive care. MMODL / IJN: [id number] /
[2020-09-08] MEDS: SULFAMETHOX-TMP 800-160MG 1 EACH TAB PO SCH (19:24)
[2020-09-08 19:54] LABS: Glucose,Whole Blood 168 mg/dL (75-99)
[2020-09-08] MEDS: ALBUTEROL HFA INHALER INHALATION PRN (19:55)
[2020-09-08] MEDS: MONTELUKAST 10 MG TAB PO SCH (20:09)
[2020-09-08] MEDS: ATORVASTATIN 80 MG TAB PO SCH (20:09)
[2020-09-08 21:11] LABS: Ferritin 399.4 ng/mL (10.0-291.0)
--- NOTE | 2020-09-08 21:14 | P.PN ---
Subjective Progress Note Date: 09/08/20 HISTORY OF PRESENT ILLNESS This is a 70-year-old female patient of Dr. Sanderson with past medical history of diabetes mellitus type 2, hypertension, hyperlipidemia, CVA in 2013 with no residuals, coronary artery disease status post 4 vessel CABG, bilateral carotid endarterectomies, mild intermittent asthma, osteomyelitis status post right great toe amputation 2014 and left toe amputation in June 2020 with revision on August [address] Gregory and patient was discharged home on August 12 with plan for IV vancomycin and oral Flagyl for 4 weeks, remote history of tobacco use area patient came in the hospital due to chest pain that started in the midsternal area and radiated to her left shoulder blade. She also had nausea which has continued. She denies having any epigastric pain. No blood in her stools. She came into the hospital for evaluation and was diagnosed with ST elevated myocardial infarction and was taken directly to the [facility] by Dr. Soto. Heart catheterization revealed occluded SVG to the RCA. Patient subsequently underwent PTCA with successful stenting of the SVG to RCA which was done by Dr. Plata. She then went to the intensive care unit where she is seen this morning. She states the chest pain is completely gone. She continues to have nausea. She states her fine arts instructor is Dr. walsh at [facility]. 90% on 2 L nasal cannula. Initial hemoglobin 0.6, white count 8.2, platelet count 239. INR 0.9. Electrolytes normal. BUN 33 and creatinine 1.51. Blood sugar initially 301. Blood sugar is now 170. Magnesium 1.9, total bilirubin 0.4, AST 206, ALT 25, alkaline phosphatase 30. Initial troponin 34.2. ProBNP 4600. Coronavirus PCR not detected. Echocardiogram reveals EF of 40-45%, moderate concentric left hypertrophy, mild aortic valve sclerosis, mild mitral regurgitation. 08/31: Remains in the intensive care unit by scheduled for transfer to the cardiac stepdown unit. She denies having any chest pain. She is on O2 normally has a home O2 at 3 L nasal cannula. She is complaining of some abdominal distention and Senokot will be added. Consult for Dr. Mccabe regarding left great toe wound. Patient is continued on IV vancomycin and oral Flagyl but is also on Bactrim from home. She has been afebrile, heart rate 83, blood pressure 109/49, pulse ox 91% on 3 L nasal cannula. Repeat blood work reveals creatinine of 1.8. Blood sugars are running between 113 187. Repeat blood work ordered for tomorrow. 09/01: Patient went into atrial fibrillation last evening now converted to sinus rhythm. Cardiology has started the patient on eliquis 2.5 mg twice daily and Toprol-XL increased to 75 mg daily. Brilinta changed to Plavix. Lasix is at 40 oral daily but yesterday patient had some hypoxia and was given Xanax and a dose of IV Lasix. She is currently prophylaxing 90% on 6 L nasal cannula. She has been afebrile, heart rate 84, blood pressure 104/73. Patient has been seen by Nea Mccabe with plan to continue vancomycin pharmacy to dose and Flagyl. Chest x- ray reveals reticulonodular infiltrates at the lung bases right greater than left. Correlate for pneumonia. Coronavirus PCR ordered and consult added for pulmonary medicine. Patient is afebrile, heart rate 84, blood pressure 104/73. Repeat blood work reveals WBC 10.3, hemoglobin 9.9, platelet count 255. Sodium 134, potassium 4.5, chloride 103, CO2 23, BUN 31 and creatinine 2.06. Blood sugar running between 101 and 233. Patient is scheduled to transfer to the cardiac stepdown unit. 09/02: She remains in intensive care unit waiting for bed on the cardiac stepdown unit. The patient has been seen by pulmonary medicine for chronic bronchial asthma and fluid overload, and pneumonia ruled out, plan to keep pulse ox between 88 and 92% at her baseline of 3 L nasal cannula. She is currently on 10 L nasal cannula at pulse ox of 90% to be weaned down today. Heart rate 115, afebrile, blood pressure 110/86. Patient received 2 doses of IV Lasix yesterday with improvement of her shortness of breath. Capillary blood glucose running between 107 and 149. Sodium 133, potassium 4.7, chloride 103, CO2 21, BUN 39 and creatinine 2.41. Probable calcitonin 0.34. Consult is in place with nephrology. Repeat chest x-ray reveals some improvement of the aeration left lung. Cardiomegaly and diffuse right lung reticulonodular opacities redemonstrated. 09/03: Patient is seen today in the intensive care unit still waiting for bed on the cardiac stepdown unit. She is sitting up in recliner and appears to have mild shortness of breath. She denies having shortness of breath. Heart rate is at 140s, white shoe examiner atrial fibrillation. Cardiology is following and is planning for a dose of IV Lopressor and if that is not successful, oral Cardizem. Patient has been seen by nephrology and recommended changing vancomycin to daptomycin. Repeat creatinine today is at 2.36. Blood sugars are running between 120 149. 09/04: Patient remains in the intensive care unit waiting for cardiac stepdown unit bed. She continues to have heart rate in the 140s, atrial fibrillation and cardiology has started her on Cardizem drip. There is tentative plan for electrocardioversion tomorrow. Patient denies any new complaints today. Pulse ox is running 90-92% on 6 L nasal cannula. She's been afebrile, blood pressure 104/50. Blood work today reveals sed rate of 126, C-reactive protein 19.5. BUN 15 creatinine 2.05. Blood sugars are running between 128 and 225. Potassium 4.4, CO2 15. Repeat chest x-ray reveals pulmonary venous hypertension and interstitial edema. Difficult to exclude small effusion. Nephrology started bicarb drip. Losartan and potassium are on hold. 09/05: Patient remains in the intensive care unit. Yesterday she developed worsening shortness of breath and pulmonary ordered extra IV Lasix, oxygen was switched over to high flow and she is currently on airflow. She has converted into a sinus rhythm and amiodarone was discontinued. She is currently on Lasix 60 mg IV every 12 hours, continued on bicarbonate drip per nephrology. Repeat chest x-ray reveals congestive heart failure, interstitial edema, may be small pleural effusion, cardiomegaly and postoperative changes. Pulse ox is 93%, afebrile, heart rate 75, respiratory rate 26, blood pressure 126/66. Repeat blood work reveals WBC 4.9, hemoglobin 9.3, platelet count 355. Sodium 132, potassium 4.4, chloride 103, CO2 17, BUN 15 creatinine 1.89. Blood sugars are running 205-315. CK is 174. Levemir will be increased to 20 units twice daily and scheduled NovoLog increased to 7 units with meals. Patient has a memorial service on Friday for her grandson and is hoping to be discharged by then so that she can attend. Cefepime has been added by Dr. Mccabe for pneumonia and patient is continued on daptomycin and oral Flagyl. 09/06: Patient remains in the intensive care unit, she is oxygenating poorly with AirVO but does not recognize this. She is very anxious to get better and be discharged for her grandson's Memorial. Discussed the need for patient to undress and manage her own health concerns as her primary focus. Amiodarone drip transitioned to oral amiodarone at 400 mg twice daily and metoprolol increased to 100 mg daily. She has been afebrile, heart rate 79, blood pressure 125/70, pulse ox 83% on FiO2 93, O2 flow rate 60. Repeat blood work reveals WBC 10.4, hemoglobin 9, platelet count 384. Sodium 133, potassium 3.6, chloride 101, CO2 24, BUN 16 creatinine 1.95. Blood sugars have been running between 188 and 329. Blood sugars are improving.. Blood cultures no growth at 24 hours. Chest x-ray reveals correlate for pneumonia versus edema and congestive heart failure. Stable cardiomegaly. Difficult to exclude pleural effusions. Patient is scheduled for CT chest today. She is continued on IV antibiotics with cefepime and daptomycin. 09/07: Patient remains in the intensive care unit patient is sitting up in bed. She still has had shortness of breath that seems to be more comfortable today. She is off AirVO and is on high flow nasal cannula 15 L with pulse ox running between 88-94%. She has been afebrile, heart rate in the 70s, respiratory rate 24, blood pressure 129/69. Patient remains in sinus rhythm. Repeat blood work reveals WBC 11.3, hemoglobin 9.4, platelet count 408. Electrolytes are normal. BUN 66 and creatinine 2.01. Blood sugars running between 150 and 227. Calcium 8.1. Liver function tests normal. CT of the chest from yesterday revealed patchy and confluent airspace disease throughout the right lung base and with a left lower lobe. Consolidation is more confluent at the lung bases. Small right and left pleural effusions. Correlate for multifocal pneumonia and exclude superimposed patchy pulmonary edema. Possible 1.9 cm left thyroid nodule. Nonemergent thyroid ultrasound recommended. Dr. Mccabe has changed antibiotics for pneumonia from cefepime to Zosyn and doxycycline. Regarding antibiotics, patient is currently on daptomycin, doxycycline, Zosyn. Hospital b ed will be ordered as patient requires out of the bed to be up and elevated 30 to alleviate dyspnea caused by COPD and fluid overload. Patient requires bedside commode because she is room confined due to significant hypoxic respiratory failure. 09/08: Patient was transferred out of the ICU she is down on oxygen to 10 L and seems to do well with it so far. She is not in any respiratory distress, pain is well controlled this point. Patient Lisandra. fib has been under better control so far on amiodarone and still on anticoagulation with Eliquis. Remain on Lasix 60 mg IV twice a day and still on the current antibiotic between daptomycin and Zosyn. She will be continue on PTOT and try to be more aggressive with her this point. REVIEW OF SYSTEMS Constitutional: No fever, no chills, no night sweats. No weight change. No weakness, Reports fatigue. No daytime sleepiness. EENT: No headache. No blurred vision or double vision, no loss of vision. No loss of Hearing, no ringing in the ears, no dizziness. No nasal drainage or congestion. No epistaxis. No sore throat. Lungs: Reports shortness of breath, reports cough, no sputum production. Reports wheezing. Cardiovascular: No chest pain, reports lower extremity edema. Reports palpitations. No paroxysmal nocturnal dyspnea. No orthopnea. No lightheadedness or dizziness. No syncopal episodes. Abdominal: No abdominal pain. No nausea, vomiting. No diarrhea. reportstipation. No bloody or tarry stools.. No loss of appetite. Genitourinary: No dysuria, increased frequency, urgency. No urinary retention. Musculoskeletal: No myalgias. No muscle weakness, no gait dysfunction, no frequent falls. No back pain. No neck pain. Integumentary: Reports left great toe wounds, no lesions. No rash or pruritus. No unusual bruising. No change in hair or nails. Neurologic: No aphasia. No facial droop. No change in mentation. No head injury. No headache. No paralysis. No paresthesia. Psychiatric: No depression. No anxiety. No mood swings. Endocrine: Elevated blood sugars. PHYSICAL EXAMINATION Gen: This is a 70-year-old obese female. She is resting in bed and ap pears to be fairly comfortable. HEENT: Head is atraumatic, normocephalic. Pupils equal, round. Sclerae is anicteric. NECK: Supple. No JVD. No lymphadenopathy. No thyromegaly. LUNGS: Diminished breath sounds, bilateral crackles. Mild accessory muscle usage, mild intercostal retractions. HEART: Regular rate and rhythm. No murmur. ABDOMEN: Soft. Bowel sounds are present. No masses. No tenderness. EXTREMITIES: Trace pedal edema. No calf tenderness. Right great toe amputation, left toe amputation. Dressing in place to the left toe amputation site. NEUROLOGICAL: Patient is awake, alert and oriented x3. Cranial nerves 2 through 12 are grossly intact. ASSESSMENT AND PLAN 1. Acute inferior ST elevated myocardial infarction status post heart catheterization and stenting of the SVG to RCA. Patient to transfer to the cardiac stepdown unit. Continue aspirin 81 mg daily, Toprol-XL 100 mg daily, Plavix 75 mg daily, atorvastatin 80 mg at bedtime. 2. New onset atrial fibrillation with RVR, paroxysmal atrial fibrillation. Continue Toprol-XL 100 mg daily, amiodarone 400 mg twice daily, eliquis 2.5 mg twice daily. Patient is in sinus rhythm. 3. Diabetes mellitus type 2, insulin requiring, uncontrolled with hyperglycemia. Continue Levemir 20 units twice daily and NovoLog scale and NovoLog 7 units with each meal. 4. Diabetic and peripheral vascular disease foot ulcer with osteomyelitis status post stump revision. Patient is currently on daptomycin, Zosyn, doxycycline. Consult with Dr. Mccabe appreciated. 5. Acute on chronic hypoxic respiratory failure secondary to acute systolic heart failure and pneumonia, possible gram-negative. COVID-19 testing negative. Pulmonary consult appreciated. Continue DuoNeb treatments 4 times daily as needed, Symbicort twice daily, IV Lasix 60 mg every 12 hours, monitor daily weights and I&O. Antibiotics are currently Zosyn, doxycycline. 6. Acute kidney injury with metabolic acidosis. Consult with nephrology appreciated. Losartan and potassium on hold. 7. Peripheral vascular disease with previous stenting of the right lower extremity. Patient regularly follows with Dr. Gregory. 8. Coronary artery disease with previous history of 4 vessel CABG. Patient's fine arts instructor is Dr. Brown at [facility]. 9. Chronic systolic heart failure, stable. Continue as above. 10. COPD. Continue DuoNeb treatment, Symbicort, Singulair. 11. History of CVA, stable. 12. Hyperlipidemia. Continue atorvastatin 80 mg at bedtime 13. Hypertension. Continue Toprol-XL. 14. Recurrent depression. Continue Cymbalta 60 mg daily 15. Chronic hypoxic respiratory failure on home O2 at 3 L. 16. Mild intermittent asthma, stable. 17. COVID-19 testing negative. Patient has been hospitalized during a pandemic. discharge planning: Patient will be able to go home by the time her oxygen lucas nd is below 5 feet or more stable for more than 48 hours. Objective - Vital Signs Vital signs: Vital Signs Temp 98.0 F 09/08/20 12:36 Pulse 78 09/08/20 16:00 Resp 18 09/08/20 16:00 BP 124/70 09/08/20 16:00 Pulse Ox 90 L 09/08/20 16:00 Intake & Output 09/08/20 09/08/20 09/09/20 06:59 18:59 06:59 Intake Total 120 790 Output Total 1400 700 400 Balance -1280 90 -400 Weight 96 kg Intake: IV 120 70 0.9 Normal Saline @ KVO 120 20 Piperacillin-Tazobactam 3 50 .375 gm In Sodium Chloride 0.9% 100 ml @ 25 mls/hr IVPB Q8HR [facility] Rx# :[id number] Oral 720 Output: Urine 1400 700 400 Other: Voiding Method Bedside Commode Bedside Commode # Voids 1 1 1 # Bowel Movements 1 1 - Labs CBC & Chem 7: 09/08/20 04:07 09/08/20 04:07 Labs: Abnormal Lab Results - Last 24 Hours (Table) 09/08/20 09/08/20 09/08/20 Range/Units 03:34 04:07 04:07 WBC 12.7 H (3.8-10.6) k/uL RBC 2.89 L (3.80-5.40) m/uL Hgb 9.1 L (11.4-16.0) gm/dL Hct 26.6 L (34.0-46.0) % BUN 67 H (7-17) mg/dL Creatinine 1.81 H (0.52-1.04) mg/dL Glucose 109 H (74-99) mg/dL POC Glucose (mg/dL) 124 H (75-99) mg/dL Calcium 8.1 L (8.4-10.2) mg/dL Iron (50-170) ug/dL TIBC (228-460) ug/dL Total Protein 5.8 L (6.3-8.2) g/dL Albumin 3.3 L (3.5-5.0) g/dL 09/08/20 09/08/20 09/08/20 Range/Units 04:07 07:41 11:35 WBC (3.8-10.6) k/uL RBC (3.80-5.40) m/uL Hgb (11.4-16.0) gm/dL Hct (34.0-46.0) % BUN (7-17) mg/dL Creatinine (0.52-1.04) mg/dL Glucose (74-99) mg/dL POC Glucose (mg/dL) 139 H 224 H (75-99) mg/dL Calcium (8.4-10.2) mg/dL Iron 49 L (50-170) ug/dL TIBC 224 L (228-460) ug/dL Total Protein (6.3-8.2) g/dL Albumin (3.5-5.0) g/dL 09/08/20 09/08/20 Range/Units 16:45 19:52 WBC (3.8-10.6) k/uL RBC (3.80-5.40) m/uL Hgb (11.4-16.0) gm/dL Hct (34.0-46.0) % BUN (7-17) mg/dL Creatinine (0.52-1.04) mg/dL Glucose (74-99) mg/dL POC Glucose (mg/dL) 166 H 168 H (75-99) mg/dL Calcium (8.4-10.2) mg/dL Iron (50-170) ug/dL TIBC (228-460) ug/dL Total Protein (6.3-8.2) g/dL Albumin (3.5-5.0) g/dL Microbiology - Last 24 Hours (Table) 09/05/20 03:06 Blood Culture - Preliminary Blood No Growth after 72 hours
[2020-09-09 07:02] LABS: Glucose,Whole Blood 64 mg/dL (75-99)
[2020-09-09] MEDS: INSULIN DETEMIR (LEVEMIR) 100 UNIT/ML SYR SQ SCH ×2 (07:03→20:40)
[2020-09-09] MEDS: INSULIN ASPART (NovoLOG) 100 UNIT/ML VIAL SQ SCH ×5 (07:03→20:40)
[2020-09-09 07:06] LABS: Glucose,Whole Blood 74 mg/dL (75-99)
[2020-09-09] MEDS: SYMBICORT 160-4.5 MCG INHALER INHALATION SCH ×2 (08:00→22:02)
[2020-09-09] MEDS: DAPTOmycin 500 MG in SODIUM CHLORIDE 0.9% 50 ML IVPB SCH (09:03)
[2020-09-09] MEDS: PIPERACILLIN-TAZOBACTAM 3.375 GM in SODIUM CHLORIDE 0.9% 100 ML IVPB SCH ×3 (09:04→23:02)
[2020-09-09] MEDS: AMIODARONE 200 MG TAB PO SCH ×2 (09:05→20:40)
[2020-09-09] MEDS: SENNOSIDES-DOCUSATE SODIUM 1 EACH TAB PO SCH (09:06)
[2020-09-09] MEDS: APIXABAN 2.5 MG TABLET PO SCH ×2 (09:06→20:40)
[2020-09-09] MEDS: DULoxetine HCL 60 MG CAPSULE.DR PO SCH (09:06)
[2020-09-09] MEDS: CLOPIDOGREL 75 MG TAB PO SCH (09:06)
[2020-09-09] MEDS: DOXYCYCLINE 100 MG CAP PO SCH ×2 (09:06→20:40)
[2020-09-09] MEDS: METOPROLOL SUCCINATE (ER) 100 MG TAB.ER.24H PO SCH (09:06)
[2020-09-09] MEDS: ASPIRIN 81 MG PO SCH (09:06)
[2020-09-09] MEDS: FUROSEMIDE 10 MG/ML 10 ML VIAL IV SCH ×2 (09:06→20:40)
--- NOTE | 2020-09-09 10:39 | P.PN ---
Subjective Progress Note Date: 09/09/20 70-year-old female that typically sees Dr. Rojas for her chronic bronchial asthma. The patient came in to the wound center, for hyperbaric treatment, on August 29. Apparently that time, she was having shortness of breath, and chest pain. She was immediately sent to the emergency room. She was thought to have an ST segment elevation myocardial infarction, and with the catheterization laboratory and had stents placed. She's in the intensive care unit now. She is on 6 L nasal cannula. Normally she wears 2-3 L. Anyway, we are asked to see her because of the worsening shortness of breath, and to rule out pneumonia. The patient denies any fever or chills. The patient denies cough or phlegm pr oduction. Her chest x-ray lipase and shows borderline cardiomegaly and some interstitial changes and small effusions consistent with heart failure. In addition, her troponins were elevated, and her BMP was elevated as well. In my opinion, nothing really points towards pneumonia as an etiology of her worsening shortness of breath. In addition, it does not appear that her asthma is particularly active this time also. She's not wheezing, or having any chest tightness. The patient states that she was recently in the hospital 3 weeks ago with an episode of heart failure as well. Her medical history includes hypertension, CAD, hyperlipidemia, asthma, diabetes, and nonhealing ulcers of the lower extremities. The patient also has a history of CVA, rheumatoid arthritis, and previous amputations of the digits of the foot for nonhealing wounds. White count 10.3, hemoglobin 9.9, hematocrit 28.6, and platelet count 255,000. Sodium 134, potassium 4.5, chlorides 103, CO2 23, anion gap is 8, BUN 31, creatinine 2.06. N-terminal proBNP is 4600. Troponins were 34.2 and 59.7 respectively. Progress note dated 09/02/2020. 70-year-old female with a history of chronic bronchial asthma. The patient was admitted to the hospital via the emergency room, with ST segment elevation myocardial infarction. She had stents placed in the catheterization laboratory. She came to the intensive care unit for further monitoring and treatment. She was thought to possibly have pneumonia. We thought her problem was primarily heart failure. She responded very nicely to Lasix therapy. She is resting comfortably now. She is on high flow nasal O2 at 10 L. She's not receiving any IV fluids. Labs today include a sodium 133 potassium 4.7, chlorides 103, CO2 21, and anion gap of 9. BUN and creatinine were 39 and 2.41 respectively. Pro- calcitonin level was 0.34. Chest x-ray is improved. Progress note dated 09/03/2020. 70-year-old female again seen in the intensive care unit, room 258. She has a history of chronic bronchial asthma. She was admitted to the hospital through the emergency room, with ST segment elevation myocardial infarction. She had stents placed in the catheterization laboratory. She came back to the intensive care unit for further monitoring and treatment. She was thought to have pneumonia, for which we were consulted. We felt the problem was primarily CHF/heart failure. The patient has responded very nicely to Lasix therapy. Currently resting comfortably. She is on cefepime HEENT and daptomycin for a foot wound. She's not receiving any IV fluids. She is on 6 L nasal O2. Cardizem will be started for atrial fibrillation. She denies any chest pain. Currently, her glucose is 144 and her creatinine is 2.36. The x-rays from the and are reviewed. On 09/04/2020 patient seen in follow-up in the intensive care unit. She is awake and alert, oriented 3, she is currently on 6 L of oxygen her pulse ox is 90-92%, she is mildly short of breath with conversation, but appears to be in no acute respiratory distress. She remains in A. fib and the rate is tachycardic with a heart rate between 125-140 BPM, she is on Eliquis for 2.5 mg twice daily for anticoagulation and she is on Cardizem at 10 mg per hour. She's been afebrile, she is not requiring any vasopressor support, today's chest x-ray shows pulmonary venous hypertension and interstitial edema and a small pleural effusion on the right was difficult to exclude. Patient is on lactated Ringer's had a rate of 75 ML per hour, she's had no nausea vomiting or diarrhea. Patient remains on antibiotics with a combination of cefepime and daptomycin for recent history of osteomyelitis in her left big toe, status post recent amputation of the left great toe. ID service is following. The area of amputated toe is healing well. The incision is clean dry and intact, no drainage. These labs have been reviewed, ESR is elevated at 126, and CRP also remains elevated at 19.5. Sodium is 134, potassium is 4.4, CO2 is 15, BUN is 50, and creatinine is 2.05. Urology is following and recommended to switch to IV fluids from lactated Ringer's to bicarbonate infusion with D5W with 3 A of bicarbonate at a rate of 50 ML per hour. 09/05/2020, the patient is being seen for follow-up. Yesterday, the patient had worsening shortness of breath and she decompensated and afternoon. I reeva luated her. She was in pulmonary edema. She was started on tachycardia. She was also bronchospastic and wheezy. At that point, I give the patient another dose of Lasix. I started on IV Solu-Medrol. She did respond also to high flow oxygen and she was placed on high flow oxygen with an FiO2 of 80% and a flow of 60 L per minute. This morning she is doing much better. Her heart rate has slowed down significantly. She converted into normal sinus rhythm and the patient is currently on Cardizem 5 mg an hour drip, amiodarone was discontinued and the patient is still on Eliquis 2.5 mg by mouth twice a day for long-term anticoagulation. She was given Lasix. Fluid balance has been essentially 0 balance the patient remains on Lasix 60 mg IV every 12 hours. The patient is also on a bicarb infusion with a total of 150 mEq of sodium bicarb running at the rate of 50 mL an hour. Her serum bicarb is up to 17 on today's evaluation. Creatinine is down to 1.8. Nephrology is also on the case regarding her kidney failure. The patient remains on broad-spectrum antibiotics regarding osteomye litis of the left big toe that was already amputated and the patient remains on a combination of cefepime, daptomycin and she is afebrile hemodynamically stable and the surgical wound site is dry clean and intact without any evidence of drainage. The patient's pulse ox is currently 96% on an FiO2 of 80% with a flow of 60 L. The patient is seen today 09/06/2020 in follow-up in the intensive care unit. She is currently awake and alert in no acute distress. She is however still requiring AirVo high flow oxygen at 60 L and 93% FiO2 to maintain O2 saturation in the 80s. Her cough is dry and nonproductive. Chest x-ray shows cardiomegaly, increasing interstitium, bilateral airspace disease left greater than right. She is currently on Lasix 60 mg IV every 12 hours. In a -750 ML balance. Blood cultures reveal no growth. She remains afebrile. White count 10.4. Hemoglobin 9.0. Sodium 133. Potassium 3.6. Creatinine 1.95. Currently in sinus rhythm. Her amiodarone drip will be finishing and she'll be transitioned to oral Cordarone 400 mg twice a day. She is on Orencia for her rheumatoid arthritis. She remains on Symbicort, DuoNeb inhalations, IV Solu- Medrol, Singulair. Anticoagulated with Eliquis. Insulin being adjusted. She remains on a bicarb drip at 50 MLS per hour. The patient is seen today 09/07/2020 in follow-up in the intensive care unit. She is currently sitting up in bed. Awake and alert in no acute distress. She is now on 15 L high flow nasal cannula and maintaining O2 saturations 88-94%. Chest x-ray reveals patchy and confluent airspace disease throughout the right lung and within the left lower lobe. Small bilateral effusions. Suspect multifocal pneumonia with superimposed pulmonary edema. She remains on Lasix 60 mg IV every 12 hours. Currently in a -2 L balance. Antibiotics are now doxycycline, daptomycin and Zosyn. Blood cultures reveal no growth. Sputum culture pending. She is continued on IV Solu-Medrol, Symbicort, DuoNeb inhalati ons, Singulair. White count 11.3. Hemoglobin 9.4. Sodium 137. Potassium 3.9. Creatinine 2.01. Glucose 150. Remains on Levemir, sliding scale. Currently in sinus rhythm. Continued on amiodarone. Anticoagulated with Eliquis. Patient is seen today 09/08/2020 in follow-up in the intensive care unit. She is awake and alert in no acute distress. Doing quite a bit better again today compared to yesterday. She is down to 11 L high flow nasal cannula with O2 saturation 91%. She is sitting up in a chair at the bedside. She remains in sinus rhythm. Continued on oral amiodarone. Anticoagulated with Eliquis. Was in a negative balance yesterday of 2 L. Currently in a negative of 90 ML's. Creatinine 1.8 today. She continues with some lower extremity edema. She remains on IV Lasix 60 mg twice a day. She is continued on antibiotics in the form of daptomycin, Zosyn, doxycycline. IV Solu-Medrol. Blood cultures reveal no growth. Sputum culture pending. White count 12.7. Hemoglobin 9.1. Sodium 137. Potassium 3.6. Glucose 139. 09/09/2020, the patient in medical floor. She remains on 11 L about 2 by nasal cannula. She remains on diuretics. She is also on broad-spectrum antibiotics per ID. She is in a sinus rhythm. Fluid balance is been negative in the order of 2.2 L over the past 24 hours. Her current pulse ox is nor that of 92-93% on 11 L of oxygen by nasal cannula. No chest pain. She did have some epistaxis related to high oxygen flow and she is also on Eliquis 2.5 mg by mouth twice a day. She is also on Levemir insulin 20 units twice a day in addition to 7 units of NovoLog with meals and sliding scale coverage. Rest of the labs otherwise are still pending for now Objective - Vital Signs Vital signs: Vital Signs Temp 97.9 F 09/09/20 08:00 Pulse 86 09/09/20 08:00 Resp 20 09/09/20 08:00 BP 122/55 09/09/20 08:00 Pulse Ox 92 L 09/09/20 08:00 Intake & Output 09/08/20 09/09/20 09/09/20 18:59 06:59 18:59 Intake Total 790 100 240 Output Total 700 2450 Balance 90 -2350 240 Weight 96.1 kg Intake: IV 70 100 0.9 Normal Saline @ KVO 20 Piperacillin-Tazobactam 3 50 100 .375 gm In Sodium Chloride 0.9% 100 ml @ 25 mls/hr IVPB Q8HR [facility] Rx# :[id number] Oral 720 240 Output: Urine 700 2450 Other: Voiding Method Bedside Commode Bedside Commode Bedside Commode # Voids 1 1 # Bowel Movements 1 - Exam GENERAL EXAM: Alert, very pleasant, 70-year-old white female, on 11 l of oxygen the pulse ox of 92%, comfortable in no apparent distress. HEAD: Normocephalic/atraumatic. EYES: Normal reaction of pupils, equal size. Conjunctiva pink, sclera white. NOSE: Clear with pink turbinates. THROAT: No erythema or exudates. NECK: No masses, no JVD, no thyroid enlargement, no adenopathy. CHEST: No chest wall deformity. Symmetrical expansion. LUNGS: Equal air entry with mild expiratory wheezes CVS: Irregular rate and rhythm, normal S1 and S2, no gallops, no murmurs, no rubs ABDOMEN: Soft, nontender. No hepatosplenomegaly, normal bowel sounds, no guarding or rigidity. EXTREMITIES: No clubbing, no edema, no cyanosis, 2+ pulses and upper and lower extremities. MUSCULOSKELETAL: Muscle strength and tone normal. Patient has bilateral great toes amputated, incisions are clean dry and intact, well-healed SPINE: No scoliosis or deformity SKIN: No rashes CENTRAL NERVOUS SYSTEM: Alert and oriented -3. No focal deficits, tone is normal in all 4 extremities. PSYCHIATRIC: Alert and oriented -3. Appropriate affect. Intact judgment and insight. - Labs CBC & Chem 7: 09/08/20 04:07 09/08/20 04:07 Labs: Abnormal Lab Results - Last 24 Hours (Table) 09/08/20 09/08/20 09/08/20 Range/Units 04:07 11:35 16:45 POC Glucose (mg/dL) 224 H 166 H (75-99) mg/dL Iron 49 L (50-170) ug/dL TIBC 224 L (228-460) ug/dL Ferritin 399.4 H (10.0-291.0) ng/mL 09/08/20 09/09/20 09/09/20 Range/Units 19:52 06:49 07:04 POC Glucose (mg/dL) 168 H 64 L 74 L (75-99) mg/dL Iron (50-170) ug/dL TIBC (228-460) ug/dL Ferritin (10.0-291.0) ng/mL Microbiology - Last 24 Hours (Table) 09/06/20 21:45 Gram Stain - Final Sputum Sputum Culture - Final 09/05/20 03:06 Blood Culture - Preliminary Blood No Growth after 96 hours Assessment and Plan Plan: [address] elevated myocardial infarction, status post heart catheterization and angioplasty and stenting 2 of the SVG to the RCA 2 Acute hypoxic respiratory failure secondary to acute exacerbation of chronic systolic congestive heart failure. On IV Lasix. She remains in negative fluid balance. She is improving and she is down to 10-11 L about 2 by nasal cannula. She is receiving Lasix 60 mg IV push every 12 hours. Repeat chest x-ray will be obtained for tomorrow. Awaiting electrolytes with concerns of her renal function. 3 A. fib with RVR , is back in normal sinus rhythm 4 Acute kidney injury, improving and creatinine is 2.01 5 Chronic systolic CHF with ejection fraction of 40-45% 6 Possible underlying pneumonia, pro-calcitonin 0.60, currently on Zosyn, daptomycin and doxycycline. COVID-19 PCR was negative and fully vaccinated 7 Recent history of left big toe amputation site related to osteomyelitis in June 2020, patient remains on daptomycin 8 Diabetes type 2 better controlled 9 History of chronic bronchial asthma, mild intermittent 10 Status post four-vessel bypass grafting 11 History of carotid artery disease with bilateral carotid endarterectomy 12 Previous history of right great toe amputation in 2014 13 Peripheral vascular disease with previous stenting of the right lower extremity 14 History of CVA Plan: Lasix 60 mg every 12 hours, IV Awaiting labs from today Order follow-up labs and chest x-ray for tomorrow Currently on Zosyn, doxycycline, daptomycin Remains on IV diuretics, in a negative balance We will continue to follow
[2020-09-09 12:11] LABS: Glucose,Whole Blood 161 mg/dL (75-99)
--- NOTE | 2020-09-09 13:11 | PN ---
PROGRESS NOTE The patient is seen for followup for acute kidney injury. The etiology is ATN and vancomycin toxicity along with ischemic acute tubular necrosis as well. The patient's renal function has been fairly stable with creatinine actually decreased to 1.8 yesterday from 2.01 from the day before. The patient is maintained on IV Lasix 60 mg q.12 hours. She has had good urine output, although she states that her legs are still edematous. She denies any significant shortness of breath. PHYSICAL EXAMINATION: On examination today, blood pressure was 122/55, heart rate 86 per minute. She is maintained on high-flow oxygen, O2 sats 92%. Examination of the heart S1, S2. Examination of the lungs, bilateral breath sounds are heard. Abdomen is soft, nontender. Examination of lower extremities shows edema 2+ bilaterally. Left foot is currently wrapped. LAB: Show sodium 137, potassium 3.6, BUN 67, creatinine 1.8 on 09/08/2020. Hemoglobin 9.1 g/dL. ASSESSMENT: 1. Acute kidney injury, acute tubular necrosis, currently nonoliguric. Urine output documented at about 3 L for 24 hours. The patient's weight has decreased over the last 2 days, but about the same from yesterday. I will continue with the current dose of Lasix and we will check labs again tomorrow. 2. Metabolic acidosis associated with acute kidney injury. IV fluids now improved. 3. Atrial fibrillation with RVR maintained on amiodarone and Lopressor. 4. Chronic systolic congestive heart failure, ejection fraction 40-45%. 5. Acute IA status post cardiac catheterization and stent placement on 08/29/2020. PLAN: Continue with IV Lasix. Continue to monitor daily weights. Repeat labs in a.m. Avoid hypotension. MMODL / IJN: [id number] /
--- NOTE | 2020-09-09 13:21 | P.PN ---
Subjective Progress Note Date: 09/09/20 This is a 70-year-old female patient was coronary artery disease and prior open heart surgery with bypasses as well as hypertension and dyslipidemia and paroxysmal atrial fibrillation presented to the hospital with a chest discomfort and was diagnosed with acute inferior ST patient myocardial infarction. She underwent an emergent heart catheterization was found acute total occlusion of a larger graft to the RCA was a large thrombus burden and she underwent an aspiration thrombectomy manually and mechanically. Post procedure she went into atrial fibrillation with RVR and converted to normal sinus mechanism on amiodarone. The patient is sitting up in the recliner chair and states she is feeling much better. No chest pain or chest pressure. No dizziness when ambulating to the chair. She states she is not ambulated further than her recliner therefore she cannot say whether she is short of breath. No orthopnea. GENERAL: Well-appearing, well-nourished and in no acute distress. NECK: Supple without JVD or thyromegaly. LUNGS: Breath sounds clear to auscultation bilaterally. Respiration equal and unlabored. No wheezes, rales or rhonchi. HEART: Regular rate and rhythm without murmurs, rubs or gallops. S1 and S2 heard. EXTREMITIES: Normal range of motion, mild edema. No clubbing or cyanosis. Peripheral pulses intact and strong. VITALS: Blood pressure 128/53, pulse rate 76, respiratory rate 20, temp 97.9 oral, SpO2 92% on 10 L high flow NC TELEMETRY: Sinus mechanism. No arrhythmias overnight IMPRESSION: Acute coronary syndrome Coronary artery disease status post thrombectomy A. fib with RVR, maintaining sinus rhythm on amiodarone PLAN: Consider transitioning to oral diuretic therapy tomorrow Encourage ambulation Pulmonary hygiene Further recommendations based on clinical course The patient has been seen and evaluated. Plan of care has been reviewed and agreed upon by Dr Paredes. Objective - Vital Signs Vital signs: Vital Signs Temp 97.9 F 09/09/20 08:00 Pulse 76 09/09/20 12:00 Resp 20 09/09/20 12:00 BP 128/53 09/09/20 12:00 Pulse Ox 92 L 09/09/20 12:00 Intake & Output 09/08/20 09/09/20 09/09/20 18:59 06:59 18:59 Intake Total 790 100 240 Output Total 700 2450 Balance 90 -2350 240 Weight 96.1 kg Intake: IV 70 100 0.9 Normal Saline @ KVO 20 Piperacillin-Tazobactam 3 50 100 .375 gm In Sodium Chloride 0.9% 100 ml @ 25 mls/hr IVPB Q8HR [facility] Rx# :[id number] Oral 720 240 Output: Urine 700 2450 Other: Voiding Method Bedside Commode Bedside Commode Bedside Commode # Voids 1 1 # Bowel Movements 1 - Labs CBC & Chem 7: 09/08/20 04:07 09/08/20 04:07 Labs: Abnormal Lab Results - Last 24 Hours (Table) 09/08/20 09/08/20 09/08/20 Range/Units 04:07 16:45 19:52 POC Glucose (mg/dL) 166 H 168 H (75-99) mg/dL Iron 49 L (50-170) ug/dL TIBC 224 L (228-460) ug/dL Ferritin 399.4 H (10.0-291.0) ng/mL 09/09/20 09/09/20 09/09/20 Range/Units 06:49 07:04 12:06 POC Glucose (mg/dL) 64 L 74 L 161 H (75-99) mg/dL Iron (50-170) ug/dL TIBC (228-460) ug/dL Ferritin (10.0-291.0) ng/mL Microbiology - Last 24 Hours (Table) 09/06/20 21:45 Gram Stain - Final Sputum Sputum Culture - Final 09/05/20 03:06 Blood Culture - Preliminary Blood No Growth after 96 hours
[2020-09-09] MEDS ORDERED: OXYMETAZOLINE 0.05% NASL SPRAY 1 SPRAY BOTTLE NASAL PRN (14:28)
--- NOTE | 2020-09-09 14:33 | P.PN ---
Subjective Progress Note Date: 09/09/20 This is a 70-year-old female patient of Dr. Sanderson with past medical history of diabetes mellitus type 2, hypertension, hyperlipidemia, CVA in 2013 with no residuals, coronary artery disease status post 4 vessel CABG, bilateral carotid endarterectomies, mild intermittent asthma, osteomyelitis status post right great toe amputation 2014 and left toe amputation in June 2020 with revision on August [address] Gregory and patient was discharged home on August 12 with plan for IV vancomycin and oral Flagyl for 4 weeks, remote history of tobacco use area patient came in the hospital due to chest pain that started in the midsternal area and radiated to her left shoulder blade. She also had naus ea which has continued. She denies having any epigastric pain. No blood in her stools. She came into the hospital for evaluation and was diagnosed with ST elevated myocardial infarction and was taken directly to the [facility] by Dr. Soto. Heart catheterization revealed occluded SVG to the RCA. Patient subsequently underwent PTCA with successful stenting of the SVG to RCA which was done by Dr. Plata. She then went to the intensive care unit where she is seen this morning. She states the chest pain is completely gone. She continues to have nausea. She states her commercial representative is Dr. walsh at [place]. 90% on 2 L nasal cannula. Initial hemoglobin 0.6, white count 8.2, platelet count 239. INR 0.9. Electrolytes normal. BUN 33 and creatinine 1.51. Blood sugar initially 301. Blood sugar is now 170. Magnesium 1.9, total bilirubin 0.4, AST 206, ALT 25, alkaline phosphatase 30. Initial troponin 34.2. ProBNP 4600. Coronavirus PCR not detected. Echocardiogram reveals EF of 40-45%, moderate concentric left hypertrophy, mild aortic valve sclerosis, mild mitral regurgitation. 08/31: Remains in the intensive care unit by scheduled for transfer to the cardiac stepdown unit. She denies having any chest pain. She is on O2 normally has a home O2 at 3 L nasal cannula. She is complaining of some abdominal distention and Senokot will be added. Consult for Dr. Mccabe regarding left great toe wound. Patient is continued on IV vancomycin and oral Flagyl but is also on Bactrim from home. She has been afebrile, heart rate 83, blood pressure 109/49, pulse ox 91% on 3 L nasal cannula. Repeat blood work reveals creatinine of 1.8. Blood sugars are running between 113 187. Repeat blood work ordered for tomorrow. 09/01: Patient went into atrial fibrillation last evening now converted to sinus rhythm. Cardiology has started the patient on eliquis 2.5 mg twice daily and Toprol-XL increased to 75 mg daily. Brilinta changed to Plavix. Lasix is at 40 oral daily but yesterday patient had some hypoxia and was given Xanax and a dose of IV Lasix. She is currently prophylaxing 90% on 6 L nasal cannula. She has been afebrile, heart rate 84, blood pressure 104/73. Patient has been seen by Dr. Mccabe with plan to continue vancomycin pharmacy to dose and Flagyl. Chest x-ray reveals reticulonodular infiltrates at the lung bases right greater than left. Correlate for pneumonia. Coronavirus PCR ordered and consult added for pulmonary medicine. Patient is afebrile, heart rate 84, blood pressure 104/73. Repeat blood work reveals WBC 10.3, hemoglobin 9.9, platelet count 255. Sodium 134, potassium 4.5, chloride 103, CO2 23, BUN 31 and creatinine 2.06. Blood sugar running between 101 and 233. Patient is scheduled to transfer to the [facility] stepdown unit. 09/02: She remains in intensive care unit waiting for bed on the cardiac stepdown unit. The patient has been seen by pulmonary medicine for chronic bronchial asthma and fluid overload, and pneumonia ruled out, plan to keep pulse ox between 88 and 92% at her baseline of 3 L nasal cannula. She is currently on 10 L nasal cannula at pulse ox of 90% to be weaned down today. Heart rate 115, afebrile, blood pressure 110/86. Patient received 2 doses of IV Lasix yesterday with improvement of her shortness of breath. Capillary blood glucose running between 107 and 149. Sodium 133, potassium 4.7, chloride 103, CO2 21, BUN 39 and creatinine 2.41. Probable calcitonin 0.34. Consult is in place with nephrology. Repeat chest x-ray reveals some improvement of the aeration left lung. Cardiomegaly and diffuse right lung reticulonodular opacities redemonstrated. 09/03: Patient is seen today in the intensive care unit still waiting for bed on the cardiac stepdown unit. She is sitting up in recliner and appears to have mild shortness of breath. She denies having shortness of breath. Heart rate is at 140s, horseradish maker atrial fibrillation. Cardiology is following and is planning for a dose of IV Lopressor and if that is not successful, oral Cardizem. Patient has been seen by nephrology and recommended changing vancomycin to daptomycin. Repeat creatinine today is at 2.36. Blood sugars are running between 120 149. 09/04: Patient remains in the intensive care unit waiting for cardiac stepdown unit bed. She continues to have heart rate in the 140s, atrial fibrillation and cardiology has started her on Cardizem drip. There is tentative plan for electrocardioversion tomorrow. Patient denies any new complaints today. Pulse ox is running 90-92% on 6 L nasal cannula. She's been afebrile, blood pressure 104/50. Blood work today reveals sed rate of 126, C-reactive protein 19.5. BUN 15 creatinine 2.05. Blood sugars are running between 128 and 225. Potassium 4.4, CO2 15. Repeat chest x-ray reveals pulmonary venous hypertension and interstitial edema. Difficult to exclude small effusion. Nephrology started bicarb drip. Losartan and potassium are on hold. 09/05: Patient remains in the intensive care unit. Yesterday she developed worsening shortness of breath and pulmonary ordered extra IV Lasix, oxygen was switched over to high flow and she is currently on airflow. She has converted into a sinus rhythm and amiodarone was discontinued. She is currently on Lasix 60 mg IV every 12 hours, continued on bicarbonate drip per nephrology. Repeat chest x-ray reveals congestive heart failure, interstitial edema, may be small pleural effusion, cardiomegaly and postoperative changes. Pulse ox is 93%, afebrile, heart rate 75, respiratory rate 26, blood pressure 126/66. Repeat blood work reveals WBC 4.9, hemoglobin 9.3, platelet count 355. Sodium 132, potassium 4.4, chloride 103, CO2 17, BUN 15 creatinine 1.89. Blood sugars are running 205-315. CK is 174. Levemir will be increased to 20 units twice daily and scheduled NovoLog increased to 7 units with meals. Patient has a memorial service on Friday for her grandson and is hoping to be discharged by then so that she can attend. Cefepime has been added by Dr. Mccabe for pneumonia and patient is continued on daptomycin and oral Flagyl. 09/06: Patient remains in the intensive care unit, she is oxygenating poorly with AirVO but does not recognize this. She is very anxious to get better and be discharged for her grandson's Memorial. Discussed the need for patient to undress and manage her own health concerns as her primary focus. Amiodarone drip transitioned to oral amiodarone at 400 mg twice daily and metoprolol increased to 100 mg daily. She has been afebrile, heart rate 79, blood pressure 125/70, pulse ox 83% on FiO2 93, O2 flow rate 60. Repeat blood work reveals WBC 10.4, hemoglobin 9, platelet count 384. Sodium 133, potassium 3.6, chloride 101, CO2 24, BUN 16 creatinine 1.95. Blood sugars have been running between 188 and 329. Blood sugars are improving.. Blood cultures no growth at 24 hours. Chest x-ray reveals correlate for pneumonia versus edema and congestive heart failure. Stable cardiomegaly. Difficult to exclude pleural effusions. Patient is scheduled for CT chest today. She is continued on IV antibiotics with cefepime and daptomycin. 09/07: Patient remains in the intensive care unit patient is sitting up in bed. She still has had shortness of breath that seems to be more comfortable today. She is off AirVO and is on high flow nasal cannula 15 L with pulse ox running between 88-94%. She has been afebrile, heart rate in the 70s, respiratory rate 24, blood pressure 129/69. Patient remains in sinus rhythm. Repeat blood work reveals WBC 11.3, hemoglobin 9.4, platelet count 408. Electrolytes are normal. BUN 66 and creatinine 2.01. Blood sugars running between 150 and 227. Calcium 8.1. Liver function tests normal. CT of the chest from yesterday revealed patchy and confluent airspace disease throughout the right lung base and with a left lower lobe. Consolidation is more confluent at the lung bases. Small right and left pleural effusions. Correlate for multifocal pneumonia and exclude superimposed patchy pulmonary edema. Possible 1.9 cm left thyroid nodule. Nonemergent thyroid ultrasound recommended. Dr. Mccabe has changed antibiotics for pneumonia from cefepime to Zosyn and doxycycline. Regarding antibiotics, patient is currently on daptomycin, doxycycline, Zosyn. Hospital bed will be ordered as patient requires out of the bed to be up and elevated 30 to alleviate dyspnea caused by COPD and fluid overload. Patient requires bedside commode because she is room confined due to significant hypoxic respiratory failure. 09/08: Patient was transferred out of the ICU she is down on oxygen to 10 L and seems to do well with it so far. She is not in any respiratory distress, pain is well controlled this point. Patient Cristobal lion has been under better control so far on amiodarone and still on anticoagulation with Eliquis. Remain on Lasix 60 mg IV twice a day and still on the current antibiotic between daptomycin and Zosyn. She will be continue on PTOT and try to be more aggressive with her this point. 09/09 Patient examined at bedside. Complains of poor appetite but denies any other significant complaints denies any chest pain or shortness of breath. Patient continues to be on 11 L of oxygen. She also endorses nosebleeds that has been continuous since yesterday. Her diarrhea has improved since yesterday is curr ently 2-3 bowel movements. Labs are reviewed patient's blood sugar continues to be in the low 60s. NovoLog mealtime insulin was discontinued. With decrease in Levemir to 10 units twice a day. Continue diabetic diet at this point. Afrin spray ordered every 4-6 hours for nosebleeds plan to switch to oral diuretic therapy tomorrow. Cardiology and pulmonary recommendations are appreciated. Continue doxycycline daptomycin and Zosyn per infectious disease recommendation for possible pneumonia and osteomyelitis REVIEW OF SYSTEMS Constitutional: No fever, no chills, no night sweats. No weight change. No weakness, Reports fatigue. No daytime sleepiness. EENT: No headache. No blurred vision or double vision, no loss of vision. No loss of Hearing, no ringing in the ears, no dizziness. No nasal drainage or congestion. Positive for epistaxis. No sore throat. Lungs: Reports shortness of breath, reports cough, no sputum production. Reports wheezing. Cardiovascular: No chest pain, reports lower extremity edema. Reports palpitations. No paroxysmal nocturnal dyspnea. No orthopnea. No lightheadedness or dizziness. No syncopal episodes. Abdominal: No abdominal pain. No nausea, vomiting. No diarrhea. reportstipation. No bloody or tarry stools.. No loss of appetite. Genitourinary: No dysuria, increased frequency, urgency. No urinary retention. Musculoskeletal: No myalgias. No muscle weakness, no gait dysfunction, no frequent falls. No back pain. No neck pain. Bilateral lower extremity edema Integumentary: Reports left great toe wounds, no lesions. No rash or pruritus. No unusual bruising. No change in hair or nails. Neurologic: No aphasia. No facial droop. No change in mentation. No head injury. No headache. No paralysis. No paresthesia. Psychiatric: No depression. No anxiety. No mood swings. Endocrine: Elevated blood sugars. Objective - Vital Signs Vital signs: Vital Signs Temp 97.9 F 09/09/20 08:00 Pulse 76 09/09/20 12:00 Resp 20 09/09/20 12:00 BP 128/53 09/09/20 12:00 Pulse Ox 92 L 09/09/20 12:00 Intake & Output 09/08/20 09/09/20 09/09/20 18:59 06:59 18:59 Intake Total 790 100 630 Output Total 700 2450 Balance 90 -2350 630 Weight 96.1 kg Intake: IV 70 100 100 0.9 Normal Saline @ KVO 20 Piperacillin-Tazobactam 3 50 100 100 .375 gm In Sodium Chloride 0.9% 100 ml @ 25 mls/hr IVPB Q8HR JAY Rx# :[id number] Intake, IV Titration 50 Amount DAPTOmycin 500 mg In 50 Sodium Chloride 0.9% 50 ml @ 100 mls/hr IVPB Q48H JAY Rx#:[id number] Oral 720 480 Output: Urine 700 2450 Other: Voiding Method Bedside Commode Bedside Commode Bedside Commode # Voids 1 1 # Bowel Movements 1 - Exam GENERAL EXAM: Alert, comfortable in no apparent distress. HEAD: Normocephalic/atraumatic. EYES: Normal reaction of pupils, equal size. Conjunctiva pink, sclera white. NOSE: Clear with pink turbinates. THROAT: No erythema or exudates. NECK: No masses, no JVD, no thyroid enlargement, no adenopathy. CHEST: No chest wall deformity. Symmetrical expansion. LUNGS: Equal air entry with mild expiratory wheezes CVS: Irregular rate and rhythm, normal S1 and S2, no gallops, no murmurs, no rubs ABDOMEN: Soft, nontender. No hepatosplenomegaly, normal bowel sounds, no g uarding or rigidity. EXTREMITIES: No clubbing, 1+ edema, no cyanosis, 2+ pulses and upper and lower extremities. MUSCULOSKELETAL: Muscle strength and tone normal. Patient has bilateral great toes amputated, incisions are clean dry and intact, well-healed wound at the base of the great toe with no drainage, base is yellow no surrounding cellulitis changes noted SPINE: No scoliosis or deformity SKIN: No rashes CENTRAL NERVOUS SYSTEM: Alert and oriented . No focal deficits PSYCHIATRIC: Appropriate affect. Intact judgment and insight. - Labs CBC & Chem 7: 09/08/20 04:07 09/08/20 04:07 Labs: Abnormal Lab Results - Last 24 Hours (Table) 09/08/20 09/08/20 09/08/20 Range/Units 04:07 16:45 19:52 POC Glucose (mg/dL) 166 H 168 H (75-99) mg/dL Iron 49 L (50-170) ug/dL TIBC 224 L (228-460) ug/dL Ferritin 399.4 H (10.0-291.0) ng/mL 09/09/20 09/09/20 09/09/20 Range/Units 06:49 07:04 12:06 POC Glucose (mg/dL) 64 L 74 L 161 H (75-99) mg/dL Iron (50-170) ug/dL TIBC (228-460) ug/dL Ferritin (10.0-291.0) ng/mL Microbiology - Last 24 Hours (Table) 09/06/20 21:45 Gram Stain - Final Sputum Sputum Culture - Final 09/05/20 03:06 Blood Culture - Preliminary Blood No Growth after 96 hours Assessment and Plan Plan: 1. Acute inferior ST elevated myocardial infarction status post heart catheterization and stenting of the SVG to RCA. Continue aspirin 81 mg daily, Toprol-XL 100 mg daily, Plavix 75 mg daily, atorvastatin 80 mg at bedtime. 2. New onset atrial fibrillation with RVR, paroxysmal atrial fibrillation. Continue Toprol-XL 100 mg daily, amiodarone 400 mg twice daily, eliquis 2.5 mg twice daily. Patient is in sinus rhythm. 3. Diabetes mellitus type 2, insulin requiring, uncontrolled with hyperglycemia. Levemir reduced to 10 units twice daily and NovoLog scale and NovoLog with each meal discontnued . 4. Diabetic and peripheral vascular disease foot ulcer with osteomyelitis status post stump revision. Patient is currently on daptomycin, Zosyn, doxycycline. Consult with Dr. Mccabe appreciated. 5. Acute on chronic hypoxic respiratory failure secondary to acute systolic heart failure and pneumonia, possible gram-negative. COVID-19 testing negative. Pulmonary consult appreciated. Continue DuoNeb treatments 4 times daily as needed, Symbicort twice daily, IV Lasix 60 mg every 12 hours, monitor daily weights and I&O. Plan to switch to oral Lasix tomorrow Antibiotics are currently Zosyn, doxycycline. 6. Acute kidney injury with metabolic acidosis. Consult with nephrology appreciated. Losartan and potassium on hold. 7. Peripheral vascular disease with previous stenting of the right lower extremity. Patient regularly follows with Dr. Gregory. 8. Coronary artery disease with previous history of 4 vessel CABG. Patient's commercial representative is Dr. Brown at [facility]. 9. Chronic systolic heart failure, stable. Continue as above. 10. COPD. Continue DuoNeb treatment, Symbicort, Singulair. 11. History of CVA, stable. 12. Hyperlipidemia. Continue atorvastatin 80 mg at bedtime 13. Hypertension. Continue Toprol-XL. 14. Recurrent depression. Continue Cymbalta 60 mg daily 15. Chronic hypoxic respiratory failure on home O2 at 3 L. 16. Mild intermittent asthma, stable. 17. COVID-19 testing negative. Patient has been hospitalized during a pandemic. 18 epistaxis patient initiated on oxygen Afrin spray 3 times a day discharge planning: Patient will be able to go home by the time her oxygen d emand is below 5 feet or more stable for more than 48 hours.
[2020-09-09 17:20] LABS: Glucose,Whole Blood 173 mg/dL (75-99)
--- NOTE | 2020-09-09 17:57 | PN ---
PROGRESS NOTE DATE OF SERVICE: 09/09/2020 REASON FOR FOLLOWUP: 1. Left big toe amputation site osteomyelitis. 2. Pneumonia. INTERVAL HISTORY: The patient is afebrile. The patient is breathing comfortably. The patient down to 10 L high-flow oxygen. Denies any chest pain. Did have a cough that has decreased in intensity. No abdominal pain or diarrhea. PHYSICAL EXAMINATION: VITAL SIGNS: Blood pressure 130/86, pulse of 77, temperature 98.1, she is 90% on 10 liters high-flow oxygen. GENERAL DESCRIPTION: An elderly female up in the chair in no distress. RESPIRATORY SYSTEM: Unlabored breathing, decreased intensity of breath sounds, no wheeze. HEART: S1, S2. Regular rate and rhythm. ABDOMEN: Soft, no tenderness. LABS: No new labs have been obtained today. DIAGNOSTIC IMPRESSION AND PLAN: 1. Patient with left big toe amputation site osteomyelitis for which the patient was on Vanco but currently on daptomycin because of kidney function. 2. Patient with a component of pneumonia. Sputum negative so far. Responded to Zosyn however sputum negative for oral antibiotics. Continue supportive care. MMODL / IJN: [id number] /
[2020-09-09 20:21] LABS: Glucose,Whole Blood 204 mg/dL (75-99)
[2020-09-09] MEDS: MONTELUKAST 10 MG TAB PO SCH (20:40)
[2020-09-09] MEDS: ATORVASTATIN 80 MG TAB PO SCH (20:40)
[2020-09-10 06:53] LABS: Glucose,Whole Blood 76 mg/dL (75-99)
[2020-09-10] MEDS: INSULIN ASPART (NovoLOG) 100 UNIT/ML VIAL SQ SCH ×4 (07:09→22:20)
[2020-09-10] MEDS: ONDANSETRON 4 MG/2 ML VIAL IVP PRN (07:09)
[2020-09-10] MEDS: INSULIN DETEMIR (LEVEMIR) 100 UNIT/ML SYR SQ SCH ×3 (07:16→22:20)
[2020-09-10 07:37] LABS: Glucose,Whole Blood 76 mg/dL (75-99)
[2020-09-10] MEDS: ALBUTEROL HFA INHALER INHALATION PRN ×2 (07:47→20:12)
[2020-09-10] MEDS: SYMBICORT 160-4.5 MCG INHALER INHALATION SCH ×2 (07:47→20:12)
--- NOTE | 2020-09-10 08:23 | XR ---
EXAMINATION TYPE: XR chest 1V DATE OF EXAM: 09/10/2020 COMPARISON: Chest x-ray 09/06/2020 HISTORY: Hypoxia, abnormal chest x-ray TECHNIQUE: Single frontal view of the chest is obtained. FINDINGS: There is interval improvement in visualization of the hemidiaphragms. Patient is post medi an sternotomy. Patchy bilateral airspace disease is present. Is a left-sided PICC line, distal tip is likely overlying the region of the superior vena cava or confluence of the innominate veins. Cardiac mediastinal silhouette is within normal limits. No evident pneumothorax or pleural effusion. IMPRESSION: There is some improvement in patient's airspace disease, aeration within the lungs.
[2020-09-10 08:34] LABS: Albumin 3.2 g/dL (3.5-5.0); Calcium 7.8 mg/dL (8.4-10.2); Potassium 3.2 mmol/L (3.5-5.1); Total Bilirubin 0.6 mg/dL (0.2-1.3); Total Protein 5.7 g/dL (6.3-8.2)
[2020-09-10] MEDS: CLOPIDOGREL 75 MG TAB PO SCH (08:34)
[2020-09-10] MEDS: SENNOSIDES-DOCUSATE SODIUM 1 EACH TAB PO SCH (08:34)
[2020-09-10] MEDS: DOXYCYCLINE 100 MG CAP PO SCH ×2 (08:34→22:19)
[2020-09-10] MEDS: APIXABAN 2.5 MG TABLET PO SCH ×2 (08:35→22:19)
[2020-09-10] MEDS: ASPIRIN 81 MG PO SCH (08:35)
[2020-09-10] MEDS: METOPROLOL SUCCINATE (ER) 100 MG TAB.ER.24H PO SCH (08:35)
[2020-09-10] MEDS: ALPRAZolam 0.25 MG TAB PO PRN (08:35)
[2020-09-10] MEDS: AMIODARONE 200 MG TAB PO SCH ×2 (08:35→22:19)
[2020-09-10] MEDS: FUROSEMIDE 10 MG/ML 10 ML VIAL IV SCH (08:35)
[2020-09-10] MEDS: DULoxetine HCL 60 MG CAPSULE.DR PO SCH (08:35)
[2020-09-10] MEDS: PIPERACILLIN-TAZOBACTAM 3.375 GM in SODIUM CHLORIDE 0.9% 100 ML IVPB SCH ×3 (08:36→23:40)
--- NOTE | 2020-09-10 09:32 | P.PN ---
Subjective Progress Note Date: 09/10/20 70-year-old female that typically sees Dr. Rojas for her chronic bronchial asthma. The patient came in to the wound center, for hyperbaric treatment, on August 29. Apparently that time, she was having shortness of breath, and chest pain. She was immediately sent to the emergency room. She was thought to have an ST segment elevation myocardial infarction, and with the catheterization laboratory and had stents placed. She's in the intensive care unit now. She is on 6 L nasal cannula. Normally she wears 2-3 L. Anyway, we are asked to see her because of the worsening shortness of breath, and to rule out pneumonia. The patient denies any fever or chills. The patient denies cough or phlegm pr oduction. Her chest x-ray lipase and shows borderline cardiomegaly and some interstitial changes and small effusions consistent with heart failure. In addition, her troponins were elevated, and her BMP was elevated as well. In my opinion, nothing really points towards pneumonia as an etiology of her worsening shortness of breath. In addition, it does not appear that her asthma is particularly active this time also. She's not wheezing, or having any chest tightness. The patient states that she was recently in the hospital 3 weeks ago with an episode of heart failure as well. Her medical history includes hypertension, CAD, hyperlipidemia, asthma, diabetes, and nonhealing ulcers of the lower extremities. The patient also has a history of CVA, rheumatoid arthritis, and previous amputations of the digits of the foot for nonhealing wounds. White count 10.3, hemoglobin 9.9, hematocrit 28.6, and platelet count 255,000. Sodium 134, potassium 4.5, chlorides 103, CO2 23, anion gap is 8, BUN 31, creatinine 2.06. N-terminal proBNP is 4600. Troponins were 34.2 and 59.7 respectively. Progress note dated 09/02/2020. 70-year-old female with a history of chronic bronchial asthma. The patient was admitted to the hospital via the emergency room, with ST segment elevation myocardial infarction. She had stents placed in the catheterization laboratory. She came to the intensive care unit for further monitoring and treatment. She was thought to possibly have pneumonia. We thought her problem was primarily heart failure. She responded very nicely to Lasix therapy. She is resting comfortably now. She is on high flow nasal O2 at 10 L. She's not receiving any IV fluids. Labs today include a sodium 133 potassium 4.7, chlorides 103, CO2 21, and anion gap of 9. BUN and creatinine were 39 and 2.41 respectively. Pro- calcitonin level was 0.34. Chest x-ray is improved. Progress note dated 09/03/2020. 70-year-old female again seen in the intensive care unit, room 258. She has a history of chronic bronchial asthma. She was admitted to the hospital through the emergency room, with ST segment elevation myocardial infarction. She had stents placed in the catheterization laboratory. She came back to the intensive care unit for further monitoring and treatment. She was thought to have pneumonia, for which we were consulted. We felt the problem was primarily CHF/heart failure. The patient has responded very nicely to Lasix therapy. Currently resting comfortably. She is on cefepime HEENT and daptomycin for a foot wound. She's not receiving any IV fluids. She is on 6 L nasal O2. Cardizem will be started for atrial fibrillation. She denies any chest pain. Currently, her glucose is 144 and her creatinine is 2.36. The x-rays from the and are reviewed. On 09/04/2020 patient seen in follow-up in the intensive care unit. She is awake and alert, oriented 3, she is currently on 6 L of oxygen her pulse ox is 90-92%, she is mildly short of breath with conversation, but appears to be in no acute respiratory distress. She remains in A. fib and the rate is tachycardic with a heart rate between 125-140 BPM, she is on Eliquis for 2.5 mg twice daily for anticoagulation and she is on Cardizem at 10 mg per hour. She's been afebrile, she is not requiring any vasopressor support, today's chest x-ray shows pulmonary venous hypertension and interstitial edema and a small pleural effusion on the right was difficult to exclude. Patient is on lactated Ringer's had a rate of 75 ML per hour, she's had no nausea vomiting or diarrhea. Patient remains on antibiotics with a combination of cefepime and daptomycin for recent history of osteomyelitis in her left big toe, status post recent amputation of the left great toe. ID service is following. The area of amputated toe is healing well. The incision is clean dry and intact, no drainage. These labs have been reviewed, ESR is elevated at 126, and CRP also remains elevated at 19.5. Sodium is 134, potassium is 4.4, CO2 is 15, BUN is 50, and creatinine is 2.05. Urology is following and recommended to switch to IV fluids from lactated Ringer's to bicarbonate infusion with D5W with 3 A of bicarbonate at a rate of 50 ML per hour. 09/05/2020, the patient is being seen for follow-up. Yesterday, the patient had worsening shortness of breath and she decompensated and afternoon. I reeva luated her. She was in pulmonary edema. She was started on tachycardia. She was also bronchospastic and wheezy. At that point, I give the patient another dose of Lasix. I started on IV Solu-Medrol. She did respond also to high flow oxygen and she was placed on high flow oxygen with an FiO2 of 80% and a flow of 60 L per minute. This morning she is doing much better. Her heart rate has slowed down significantly. She converted into normal sinus rhythm and the patient is currently on Cardizem 5 mg an hour drip, amiodarone was discontinued and the patient is still on Eliquis 2.5 mg by mouth twice a day for long-term anticoagulation. She was given Lasix. Fluid balance has been essentially 0 balance the patient remains on Lasix 60 mg IV every 12 hours. The patient is also on a bicarb infusion with a total of 150 mEq of sodium bicarb running at the rate of 50 mL an hour. Her serum bicarb is up to 17 on today's evaluation. Creatinine is down to 1.8. Nephrology is also on the case regarding her kidney failure. The patient remains on broad-spectrum antibiotics regarding osteomye litis of the left big toe that was already amputated and the patient remains on a combination of cefepime, daptomycin and she is afebrile hemodynamically stable and the surgical wound site is dry clean and intact without any evidence of drainage. The patient's pulse ox is currently 96% on an FiO2 of 80% with a flow of 60 L. The patient is seen today 09/06/2020 in follow-up in the intensive care unit. She is currently awake and alert in no acute distress. She is however still requiring AirVo high flow oxygen at 60 L and 93% FiO2 to maintain O2 saturation in the 80s. Her cough is dry and nonproductive. Chest x-ray shows cardiomegaly, increasing interstitium, bilateral airspace disease left greater than right. She is currently on Lasix 60 mg IV every 12 hours. In a -750 ML balance. Blood cultures reveal no growth. She remains afebrile. White count 10.4. Hemoglobin 9.0. Sodium 133. Potassium 3.6. Creatinine 1.95. Currently in sinus rhythm. Her amiodarone drip will be finishing and she'll be transitioned to oral Cordarone 400 mg twice a day. She is on Orencia for her rheumatoid arthritis. She remains on Symbicort, DuoNeb inhalations, IV Solu- Medrol, Singulair. Anticoagulated with Eliquis. Insulin being adjusted. She remains on a bicarb drip at 50 MLS per hour. The patient is seen today 09/07/2020 in follow-up in the intensive care unit. She is currently sitting up in bed. Awake and alert in no acute distress. She is now on 15 L high flow nasal cannula and maintaining O2 saturations 88-94%. Chest x-ray reveals patchy and confluent airspace disease throughout the right lung and within the left lower lobe. Small bilateral effusions. Suspect multifocal pneumonia with superimposed pulmonary edema. She remains on Lasix 60 mg IV every 12 hours. Currently in a -2 L balance. Antibiotics are now doxycycline, daptomycin and Zosyn. Blood cultures reveal no growth. Sputum culture pending. She is continued on IV Solu-Medrol, Symbicort, DuoNeb inhalati ons, Singulair. White count 11.3. Hemoglobin 9.4. Sodium 137. Potassium 3.9. Creatinine 2.01. Glucose 150. Remains on Levemir, sliding scale. Currently in sinus rhythm. Continued on amiodarone. Anticoagulated with Eliquis. Patient is seen today 09/08/2020 in follow-up in the intensive care unit. She is awake and alert in no acute distress. Doing quite a bit better again today compared to yesterday. She is down to 11 L high flow nasal cannula with O2 saturation 91%. She is sitting up in a chair at the bedside. She remains in sinus rhythm. Continued on oral amiodarone. Anticoagulated with Eliquis. Was in a negative balance yesterday of 2 L. Currently in a negative of 90 ML's. Creatinine 1.8 today. She continues with some lower extremity edema. She remains on IV Lasix 60 mg twice a day. She is continued on antibiotics in the form of daptomycin, Zosyn, doxycycline. IV Solu-Medrol. Blood cultures reveal no growth. Sputum culture pending. White count 12.7. Hemoglobin 9.1. Sodium 137. Potassium 3.6. Glucose 139. 09/09/2020, the patient in medical floor. She remains on 11 L about 2 by nasal cannula. She remains on diuretics. She is also on broad-spectrum antibiotics per ID. She is in a sinus rhythm. Fluid balance is been negative in the order of 2.2 L over the past 24 hours. Her current pulse ox is nor that of 92-93% on 11 L of oxygen by nasal cannula. No chest pain. She did have some epistaxis related to high oxygen flow and she is also on Eliquis 2.5 mg by mouth twice a day. She is also on Levemir insulin 20 units twice a day in addition to 7 units of NovoLog with meals and sliding scale coverage. Rest of the labs otherwise are still pending for now 09/10/2020, I'm seeing the patient for a follow-up. The patient continues to diabetes with IV Lasix. Her creatinine is down to 1.6 with a BUN of 53. She is on a lacerated the diuretics and the patient is interested in a negative fluid balance of 2.2 L over the past 24 hours and she's had a tolerance another negative fluid balance over the next 24 hours. Her weight is down from 98 down to 94 kg. She remains on oxygen and she is currently on 10-11 L of oxygen by nasal cannula. No other significant events otherwise for now. She is doing well pH is sitting up on a chair. She is afebrile. She is hemodynamic is stable. No angina. No palpitations. No chest pain. He is using incentive spirometer and she is up to 2000 on her incentive spirometer on today's evaluation. Tolerating her diet. The chest x-rays also showing improvement in the airspace disease bilaterally. Objective - Vital Signs Vital signs: Vital Signs Temp 98.3 F 09/10/20 03:41 Pulse 77 09/10/20 03:41 Resp 18 09/10/20 03:41 BP 147/63 09/10/20 03:41 Pulse Ox 92 L 09/10/20 03:41 Intake & Output 09/09/20 09/10/20 09/10/20 18:59 06:59 18:59 Intake Total 870 100 560 Output Total 1950 Balance 870 -1850 560 Weight 94.3 kg Intake: IV 100 100 Piperacillin-Tazobactam 3 100 100 .375 gm In Sodium Chloride 0.9% 100 ml @ 25 mls/hr IVPB Q8HR JAY Rx# :[id number] Intake, IV Titration 50 Amount DAPTOmycin 500 mg In 50 Sodium Chloride 0.9% 50 ml @ 100 mls/hr IVPB Q48H JAY Rx#:[id number] Oral 720 560 Output: Urine 1950 Other: Voiding Method Bedside Commode Bedside Commode - Exam GENERAL EXAM: Alert, very pleasant, 70-year-old white female, on 11 l of oxygen the pulse ox of 92%, comfortable in no apparent distress. HEAD: Normocephalic/atraumatic. EYES: Normal reaction of pupils, equal size. Conjunctiva pink, sclera white. NOSE: Clear with pink turbinates. THROAT: No erythema or exudates. NECK: No masses, no JVD, no thyroid enlargement, no adenopathy. CHEST: No chest wall deformity. Symmetrical expansion. LUNGS: Equal air entry with mild expiratory wheezes CVS: Irregular rate and rhythm, normal S1 and S2, no gallops, no murmurs, no rubs ABDOMEN: Soft, nontender. No hepatosplenomegaly, normal bowel sounds, no guarding or rigidity. EXTREMITIES: No clubbing, no edema, no cyanosis, 2+ pulses and upper and lower extremities. MUSCULOSKELETAL: Muscle strength and tone normal. Patient has bilateral great toes amputated, incisions are clean dry and intact, well-healed SPINE: No scoliosis or deformity SKIN: No rashes CENTRAL NERVOUS SYSTEM: Alert and oriented -3. No focal deficits, tone is normal in all 4 extremities. PSYCHIATRIC: Alert and oriented -3. Appropriate affect. Intact judgment and insight. - Labs CBC & Chem 7: 09/08/20 04:07 09/10/20 07:51 Labs: Abnormal Lab Results - Last 24 Hours (Table) 09/09/20 09/09/20 09/09/20 Range/Units 12:06 17:18 20:20 Potassium (3.5-5.1) mmol/L Carbon Dioxide (22-30) mmol/L BUN (7-17) mg/dL Creatinine (0.52-1.04) mg/dL POC Glucose (mg/dL) 161 H 173 H 204 H (75-99) mg/dL Calcium (8.4-10.2) mg/dL AST (14-36) U/L Total Protein (6.3-8.2) g/dL Albumin (3.5-5.0) g/dL 09/10/20 Range/Units 07:51 Potassium 3.2 L (3.5-5.1) mmol/L Carbon Dioxide 35 H (22-30) mmol/L BUN 53 H (7-17) mg/dL Creatinine 1.61 H (0.52-1.04) mg/dL POC Glucose (mg/dL) (75-99) mg/dL Calcium 7.8 L (8.4-10.2) mg/dL AST 55 H (14-36) U/L Total Protein 5.7 L (6.3-8.2) g/dL Albumin 3.2 L (3.5-5.0) g/dL Microbiology - Last 24 Hours (Table) 09/05/20 03:06 Blood Culture - Preliminary Blood No Growth after 120 hours 09/06/20 21:45 Gram Stain - Final Sputum Sputum Culture - Final Assessment and Plan Plan: [address] elevated myocardial infarction, status post heart c atheterization and angioplasty and stenting 2 of the SVG to the RCA 2 Acute hypoxic respiratory failure secondary to acute exacerbation of chronic systolic congestive heart failure. On IV Lasix. She remains in negative fluid balance. She is improving and she is down to 10-11 L about 2 by nasal cannula. She is receiving Lasix 60 mg IV push every 12 hours. Diuretics. We'll continue diuretic for another 24 hours. She is responding very nicely. 3 A. fib with RVR , is back in normal sinus rhythm 4 Acute kidney injury, improving and creatinine is 2.01 5 Chronic systolic CHF with ejection fraction of 40-45% 6 Possible underlying pneumonia, pro-calcitonin 0.60, currently on Zosyn, daptomycin and doxycycline. COVID-19 PCR was negative and fully vaccinated 7 Recent history of left big toe amputation site related to osteomyelitis in June 2020, patient remains on daptomycin 8 Diabetes type 2 better controlled 9 History of chronic bronchial asthma, mild intermittent 10 Status post four-vessel bypass grafting 11 History of carotid artery disease with bilateral carotid endarterectomy 12 Previous history of right great toe amputation in 2014 13 Peripheral vascular disease with previous stenting of the right lower extremity 14 History of CVA Plan: Clinically improving. The chest x-ray findings are also improving. I anticipate we should be able to cut down her oxygen levels under 10 L today. Lasix 60 mg every 12 hours, IV Awaiting labs from today Order follow-up labs and chest x-ray for tomorrow Currently on Zosyn, doxycycline, daptomycin Remains on IV diuretics, in a negative balance We will continue to follow
[2020-09-10] MEDS ORDERED: POTASSIUM CHLORIDE ER 20 MEQ TAB.ER PO STA (11:23)
--- NOTE | 2020-09-10 11:28 | P.PN ---
Subjective Progress Note Date: 09/10/20 This is a 70-year-old female patient of Dr. Sanderson with past medical history of diabetes mellitus type 2, hypertension, hyperlipidemia, CVA in 2013 with no residuals, coronary artery disease status post 4 vessel CABG, bilateral carotid endarterectomies, mild intermittent asthma, osteomyelitis status post right great toe amputation 2014 and left toe amputation in June 2020 with revision on August [address] Gregory and patient was discharged home on August 12 with plan for IV vancomycin and oral Flagyl for 4 weeks, remote history of tobacco use area patient came in the hospital due to chest pain that started in the midsternal area and radiated to her left shoulder blade. She also had naus ea which has continued. She denies having any epigastric pain. No blood in her stools. She came into the hospital for evaluation and was diagnosed with ST elevated myocardial infarction and was taken directly to the cardiac technology lab teacher by Dr. Soto. Heart catheterization revealed occluded SVG to the RCA. Patient subsequently underwent PTCA with successful stenting of the SVG to RCA which was done by Dr. Plata. She then went to the intensive care unit where she is seen this morning. She states the chest pain is completely gone. She continues to have nausea. She states her genomics scientist is Dr. walsh at [place]. 90% on 2 L nasal cannula. Initial hemoglobin 0.6, white count 8.2, platelet count 239. INR 0.9. Electrolytes normal. BUN 33 and creatinine 1.51. Blood sugar initially 301. Blood sugar is now 170. Magnesium 1.9, total bilirubin 0.4, AST 206, ALT 25, alkaline phosphatase 30. Initial troponin 34.2. ProBNP 4600. Coronavirus PCR not detected. Echocardiogram reveals EF of 40-45%, moderate concentric left hypertrophy, mild aortic valve sclerosis, mild mitral regurgitation. 08/31: Remains in the intensive care unit by scheduled for transfer to the cardiac stepdown unit. She denies having any chest pain. She is on O2 normally has a home O2 at 3 L nasal cannula. She is complaining of some abdominal distention and Senokot will be added. Consult for Dr. Mccabe regarding left great toe wound. Patient is continued on IV vancomycin and oral Flagyl but is also on Bactrim from home. She has been afebrile, heart rate 83, blood pressure 109/49, pulse ox 91% on 3 L nasal cannula. Repeat blood work reveals creatinine of 1.8. Blood sugars are running between 113 187. Repeat blood work ordered for tomorrow. 09/01: Patient went into atrial fibrillation last evening now converted to sinus rhythm. Cardiology has started the patient on eliquis 2.5 mg twice daily and Toprol-XL increased to 75 mg daily. Brilinta changed to Plavix. Lasix is at 40 oral daily but yesterday patient had some hypoxia and was given Xanax and a dose of IV Lasix. She is currently prophylaxing 90% on 6 L nasal cannula. She has been afebrile, heart rate 84, blood pressure 104/73. Patient has been seen by Dr. Mccabe with plan to continue vancomycin pharmacy to dose and Flagyl. Chest x-ray reveals reticulonodular infiltrates at the lung bases right greater than left. Correlate for pneumonia. Coronavirus PCR ordered and consult added for pulmonary medicine. Patient is afebrile, heart rate 84, blood pressure 104/73. Repeat blood work reveals WBC 10.3, hemoglobin 9.9, platelet count 255. Sodium 134, potassium 4.5, chloride 103, CO2 23, BUN 31 and creatinine 2.06. Blood sugar running between 101 and 233. Patient is scheduled to transfer to the [facility] stepdown unit. 09/02: She remains in intensive care unit waiting for bed on the cardiac stepdown unit. The patient has been seen by pulmonary medicine for chronic bronchial asthma and fluid overload, and pneumonia ruled out, plan to keep pulse ox between 88 and 92% at her baseline of 3 L nasal cannula. She is currently on 10 L nasal cannula at pulse ox of 90% to be weaned down today. Heart rate 115, afebrile, blood pressure 110/86. Patient received 2 doses of IV Lasix yesterday with improvement of her shortness of breath. Capillary blood glucose running between 107 and 149. Sodium 133, potassium 4.7, chloride 103, CO2 21, BUN 39 and creatinine 2.41. Probable calcitonin 0.34. Consult is in place with nephrology. Repeat chest x-ray reveals some improvement of the aeration left lung. Cardiomegaly and diffuse right lung reticulonodular opacities redemonstrated. 09/03: Patient is seen today in the intensive care unit still waiting for bed on the cardiac stepdown unit. She is sitting up in recliner and appears to have mild shortness of breath. She denies having shortness of breath. Heart rate is at 140s, satellite project site monitor atrial fibrillation. Cardiology is following and is planning for a dose of IV Lopressor and if that is not successful, oral Cardizem. Patient has been seen by nephrology and recommended changing vancomycin to daptomycin. Repeat creatinine today is at 2.36. Blood sugars are running between 120 149. 09/04: Patient remains in the intensive care unit waiting for cardiac stepdown unit bed. She continues to have heart rate in the 140s, atrial fibrillation and cardiology has started her on Cardizem drip. There is tentative plan for electrocardioversion tomorrow. Patient denies any new complaints today. Pulse ox is running 90-92% on 6 L nasal cannula. She's been afebrile, blood pressure 104/50. Blood work today reveals sed rate of 126, C-reactive protein 19.5. BUN 15 creatinine 2.05. Blood sugars are running between 128 and 225. Potassium 4.4, CO2 15. Repeat chest x-ray reveals pulmonary venous hypertension and interstitial edema. Difficult to exclude small effusion. Nephrology started bicarb drip. Losartan and potassium are on hold. 09/05: Patient remains in the intensive care unit. Yesterday she developed worsening shortness of breath and pulmonary ordered extra IV Lasix, oxygen was switched over to high flow and she is currently on airflow. She has converted into a sinus rhythm and amiodarone was discontinued. She is currently on Lasix 60 mg IV every 12 hours, continued on bicarbonate drip per nephrology. Repeat chest x-ray reveals congestive heart failure, interstitial edema, may be small pleural effusion, cardiomegaly and postoperative changes. Pulse ox is 93%, afebrile, heart rate 75, respiratory rate 26, blood pressure 126/66. Repeat blood work reveals WBC 4.9, hemoglobin 9.3, platelet count 355. Sodium 132, potassium 4.4, chloride 103, CO2 17, BUN 15 creatinine 1.89. Blood sugars are running 205-315. CK is 174. Levemir will be increased to 20 units twice daily and scheduled NovoLog increased to 7 units with meals. Patient has a memorial service on Friday for her grandson and is hoping to be discharged by then so that she can attend. Cefepime has been added by Dr. Mccabe for pneumonia and patient is continued on daptomycin and oral Flagyl. 09/06: Patient remains in the intensive care unit, she is oxygenating poorly with AirVO but does not recognize this. She is very anxious to get better and be discharged for her grandson's Memorial. Discussed the need for patient to undress and manage her own health concerns as her primary focus. Amiodarone drip transitioned to oral amiodarone at 400 mg twice daily and metoprolol increased to 100 mg daily. She has been afebrile, heart rate 79, blood pressure 125/70, pulse ox 83% on FiO2 93, O2 flow rate 60. Repeat blood work reveals WBC 10.4, hemoglobin 9, platelet count 384. Sodium 133, potassium 3.6, chloride 101, CO2 24, BUN 16 creatinine 1.95. Blood sugars have been running between 188 and 329. Blood sugars are improving.. Blood cultures no growth at 24 hours. Chest x-ray reveals correlate for pneumonia versus edema and congestive heart failure. Stable cardiomegaly. Difficult to exclude pleural effusions. Patient is scheduled for CT chest today. She is continued on IV antibiotics with cefepime and daptomycin. 09/07: Patient remains in the intensive care unit patient is sitting up in bed. She still has had shortness of breath that seems to be more comfortable today. She is off AirVO and is on high flow nasal cannula 15 L with pulse ox running between 88-94%. She has been afebrile, heart rate in the 70s, respiratory rate 24, blood pressure 129/69. Patient remains in sinus rhythm. Repeat blood work reveals WBC 11.3, hemoglobin 9.4, platelet count 408. Electrolytes are normal. BUN 66 and creatinine 2.01. Blood sugars running between 150 and 227. Calcium 8.1. Liver function tests normal. CT of the chest from yesterday revealed patchy and confluent airspace disease throughout the right lung base and with a left lower lobe. Consolidation is more confluent at the lung bases. Small right and left pleural effusions. Correlate for multifocal pneumonia and exclude superimposed patchy pulmonary edema. Possible 1.9 cm left thyroid nodule. Nonemergent thyroid ultrasound recommended. Dr. Mccabe has changed antibiotics for pneumonia from cefepime to Zosyn and doxycycline. Regarding antibiotics, patient is currently on daptomycin, doxycycline, Zosyn. Hospital bed will be ordered as patient requires out of the bed to be up and elevated 30 to alleviate dyspnea caused by COPD and fluid overload. Patient requires bedside commode because she is room confined due to significant hypoxic respiratory failure. 09/08: Patient was transferred out of the ICU she is down on oxygen to 10 L and seems to do well with it so far. She is not in any respiratory distress, pain is well controlled this point. Patient Cristobal lion has been under better control so far on amiodarone and still on anticoagulation with Eliquis. Remain on Lasix 60 mg IV twice a day and still on the current antibiotic between daptomycin and Zosyn. She will be continue on PTOT and try to be more aggressive with her this point. 09/09 Patient examined at bedside. Complains of poor appetite but denies any other significant complaints denies any chest pain or shortness of breath. Patient continues to be on 11 L of oxygen. She also endorses nosebleeds that has been continuous since yesterday. Her diarrhea has improved since yesterday is curr ently 2-3 bowel movements. Labs are reviewed patient's blood sugar continues to be in the low 60s. NovoLog mealtime insulin was discontinued. With decrease in Levemir to 10 units twice a day. Continue diabetic diet at this point. Afrin spray ordered every 4-6 hours for nosebleeds plan to switch to oral diuretic therapy tomorrow. Cardiology and pulmonary recommendations are appreciated. Continue doxycycline daptomycin and Zosyn per infectious disease recommendation for possible pneumonia and osteomyelitis 09/10 patient examined bedside. Mostly has improved on Afrin spray. She continues to have shortness of breath is currently on 10 L of oxygen. At 8.3 pulse 77 respiratory rate 18 blood pressure 147/63 oxygenating at 92% on daily 2. Labs are reviewed patient's sodium 141 potassium 3.2 chloride 98 bicarb 35 BUN 53 creatinine 1.62. Continue Lasix and 60 IV twice a day. Patient continues to have good negative urine output with a balance of 2.2 L in the last 24 hours. Patient does have loose stools to bowel movements. Bili obtain a CBC tomorrow. And fecal occult blood ordered as the specimen appeared to be tarry in color. REVIEW OF SYSTEMS Constitutional: No fever, no chills, no night sweats. No weight change. No weakness, Reports fatigue. No daytime sleepiness. EENT: No headache. No blurred vision or double vision, no loss of vision. No loss of Hearing, no ringing in the ears, no dizziness. No nasal drainage or congestion. Epistasis improved. No sore throat. Lungs: Reports shortness of breath, reports cough, no sputum production. Reports wheezing. Cardiovascular: No chest pain, reports lower extremity edema. Reports palpitations. No paroxysmal nocturnal dyspnea. No orthopnea. No lightheadedness or dizziness. No syncopal episodes. Abdominal: No abdominal pain. No nausea, vomiting. Loose stools tarry stools No loss of appetite. Genitourinary: No dysuria, increased frequency, urgency. No urinary retention. Musculoskeletal: No myalgias. No muscle weakness, no gait dysfunction, no frequent falls. No back pain. No neck pain. Bilateral lower extremity edema Integumentary: Reports left great toe wounds, no lesions. No rash or pruritus. No unusual bruising. No change in hair or nails. Neurologic: No aphasia. No facial droop. No change in mentation. No head injury. No headache. No paralysis. No paresthesia. Psychiatric: No depression. No anxiety. No mood swings. Endocrine: Elevated blood sugars. Objective - Vital Signs Vital signs: Vital Signs Temp 98.3 F 09/10/20 03:41 Pulse 77 09/10/20 03:41 Resp 18 09/10/20 03:41 BP 147/63 09/10/20 03:41 Pulse Ox 92 L 09/10/20 03:41 Intake & Output 09/09/20 09/10/20 09/10/20 18:59 06:59 18:59 Intake Total 870 100 560 Output Total 1950 Balance 870 -1850 560 Weight 94.3 kg Intake: IV 100 100 Piperacillin-Tazobactam 3 100 100 .375 gm In Sodium Chloride 0.9% 100 ml @ 25 mls/hr IVPB Q8HR JAY Rx# :[id number] Intake, IV Titration 50 Amount DAPTOmycin 500 mg In 50 Sodium Chloride 0.9% 50 ml @ 100 mls/hr IVPB Q48H JAY Rx#:[id number] Oral 720 560 Output: Urine 1950 Other: Voiding Method Bedside Commode Bedside Commode - Exam GENERAL EXAM: Alert, comfortable in no apparent distress. HEAD: Normocephalic/atraumatic. EYES: Normal reaction of pupils, equal size. Conjunctiva pink, sclera white. NOSE: Clear with pink turbinates. THROAT: No erythema or exudates. NECK: No masses, no JVD, no thyroid enlargement, no adenopathy. CHEST: No chest wall deformity. Symmetrical expansion. LUNGS: Equal air entry with mild expiratory wheezes CVS: Irregular rate and rhythm, normal S1 and S2, no gallops, no murmurs, no rubs ABDOMEN: Soft, nontender. No hepatosplenomegaly, normal bowel sounds, no guarding or rigidity. EXTREMITIES: No clubbing, 1+ edema, no cyanosis, 2+ pulses and upper and lower extremities. MUSCULOSKELETAL: Muscle strength and tone normal. Patient has bilateral great toes amputated, incisions are clean dry and intact, well-healed wound at the base of the great toe with no drainage, base is yellow no surrounding cellulitis changes noted SPINE: No scoliosis or deformity SKIN: No rashes CENTRAL NERVOUS SYSTEM: Alert and oriented . No focal deficits PSYCHIATRIC: Appropriate affect. Intact judgment and insight. - Labs CBC & Chem 7: 09/08/20 04:07 09/10/20 07:51 Labs: Abnormal Lab Results - Last 24 Hours (Table) 09/09/20 09/09/20 09/09/20 Range/Units 12:06 17:18 20:20 Potassium (3.5-5.1) mmol/L Carbon Dioxide (22-30) mmol/L BUN (7-17) mg/dL Creatinine (0.52-1.04) mg/dL POC Glucose (mg/dL) 161 H 173 H 204 H (75-99) mg/dL Calcium (8.4-10.2) mg/dL AST (14-36) U/L Total Protein (6.3-8.2) g/dL Albumin (3.5-5.0) g/dL 09/10/20 Range/Units 07:51 Potassium 3.2 L (3.5-5.1) mmol/L Carbon Dioxide 35 H (22-30) mmol/L BUN 53 H (7-17) mg/dL Creatinine 1.61 H (0.52-1.04) mg/dL POC Glucose (mg/dL) (75-99) mg/dL Calcium 7.8 L (8.4-10.2) mg/dL AST 55 H (14-36) U/L Total Protein 5.7 L (6.3-8.2) g/dL Albumin 3.2 L (3.5-5.0) g/dL Microbiology - Last 24 Hours (Table) 09/05/20 03:06 Blood Culture - Preliminary Blood No Growth after 120 hours 09/06/20 21:45 Gram Stain - Final Sputum Sputum Culture - Final Assessment and Plan Plan: 1. Acute inferior ST elevated myocardial infarction status post heart catheterization and stenting of the SVG to RCA. Continue aspirin 81 mg daily, Toprol-XL 100 mg daily, Plavix 75 mg daily, atorvastatin 80 mg at bedtime. 2. New onset atrial fibrillation with RVR, paroxysmal atrial fibrillation. Continue Toprol-XL 100 mg daily, amiodarone 400 mg twice daily, eliquis 2.5 mg twice daily. Patient is in sinus rhythm. 3. Diabetes mellitus type 2, insulin requiring, uncontrolled with hyperglycemia. Levemir reduced to 10 units twice daily and NovoLog scale and NovoLog with each meal discontnued . 4. Diabetic and peripheral vascular disease foot ulcer with osteomyelitis status post stump revision. Patient is currently on daptomycin, Zosyn, doxycycline. Consult with Dr. Mccabe appreciated. 5. Acute on chronic hypoxic respiratory failure secondary to acute systolic heart failure and pneumonia, possible gram-negative. COVID-19 testing negative. Pulmonary consult appreciated. Continue DuoNeb treatments 4 times daily as needed, Symbicort twice daily, IV Lasix 60 mg every 12 hours, monitor daily weights and I&O. Plan to switch to oral Lasix tomorrow Antibiotics are currently Zosyn, doxycycline. 6. Acute kidney injury with metabolic acidosis. Consult with nephrology appreciated. Losartan and potassium on hold. 7. Peripheral vascular disease with previous stenting of the right lower extremity. Patient regularly follows with Dr. Gregory. 8. Coronary artery disease with previous history of 4 vessel CABG. Patient's genomics scientist is Dr. Brown at [facility]. 9. Chronic systolic heart failure, stable. Continue as above. 10. COPD. Continue DuoNeb treatment, Symbicort, Singulair. 11. History of CVA, stable. 12. Hyperlipidemia. Continue atorvastatin 80 mg at bedtime 13. Hypertension. Continue Toprol-XL. 14. Recurrent depression. Continue Cymbalta 60 mg daily 15. Chronic hypoxic respiratory failure on home O2 at 3 L. 16. Mild intermittent asthma, stable. 17. COVID-19 testing negative. Patient has been hospitalized during a pandemic. 18 epistaxis improved with Afrin spray 3 times a day 19. Tarry stools rule out bleeding. CBC stat. Occult stool ordered discharge planning: Patient will be able to go home by the time her oxygen demand is below 5 feet or more stable for more than 48 hours.
[2020-09-10 12:32] LABS: Glucose,Whole Blood 128 mg/dL (75-99)
--- NOTE | 2020-09-10 12:32 | P.PN ---
Subjective Progress Note Date: 09/10/20 This is a 70-year-old female patient was coronary artery disease and prior open heart surgery with bypasses as well as hypertension and dyslipidemia and paroxysmal atrial fibrillation presented to the hospital with a chest discomfort and was diagnosed with acute inferior ST patient myocardial infarction. She underwent an emergent heart catheterization was found acute total occlusion of a larger graft to the RCA was a large thrombus burden and she underwent an aspiration thrombectomy manually and mechanically. Post procedure she went into atrial fibrillation with RVR and converted to normal sinus mechanism on amiodarone. The patient is sitting up in the recliner chair and states she is feeling much better. She has been able to ambulate to the bathroom with a walker and nursing assistance. She did get mildly short of breath No chest pain or chest pressure. No dizziness when ambulating to the chair. No orthopnea. GENERAL: Well-appearing, well-nourished and in no acute distress. NECK: Supple without JVD or thyromegaly. LUNGS: Breath sounds clear to auscultation bilaterally. Respiration equal and unlabored. No wheezes, rales or rhonchi. HEART: Regular rate and rhythm without murmurs, rubs or gallops. S1 and S2 heard. EXTREMITIES: Normal range of motion, mild edema. No clubbing or cyanosis. Peripheral pulses intact and strong. VITALS: Blood pressure 147/63, pulse rate 77, respiratory rate 18, temp 98.3 oral, SpO2 92% on 10 L high flow NC LABS: Sodium 141, potassium 3.2, BUN 53, creatinine 1.61, AST 55, ALT 25 TELEMETRY: Sinus mechanism. No arrhythmias overnight IMPRESSION: Acute coronary syndrome Coronary artery disease status post thrombectomy A. fib with RVR, maintaining sinus rhythm on amiodarone Hypokalemia, supplement per protocol Acute kidney injury, improving PLAN: Switch to oral Lasix 80 mg daily Encourage ambulation Pulmonary hygiene Continue strict I&O Continue to monitor electrolytes and kidney function Further recommendations based on clinical course The patient has been seen and evaluated. Plan of care has been reviewed and agreed upon by Dr Paredes. Objective - Vital Signs Vital signs: Vital Signs Temp 98.3 F 09/10/20 03:41 Pulse 77 09/10/20 03:41 Resp 18 09/10/20 03:41 BP 147/63 09/10/20 03:41 Pulse Ox 92 L 09/10/20 03:41 Intake & Output 09/09/20 09/10/20 09/10/20 18:59 06:59 18:59 Intake Total 870 100 560 Output Total 1950 Balance 870 -1850 560 Weight 94.3 kg Intake: IV 100 100 Piperacillin-Tazobactam 3 100 100 .375 gm In Sodium Chloride 0.9% 100 ml @ 25 mls/hr IVPB Q8HR JAY Rx# :[id number] Intake, IV Titration 50 Amount DAPTOmycin 500 mg In 50 Sodium Chloride 0.9% 50 ml @ 100 mls/hr IVPB Q48H JAY Rx#:[id number] Oral 720 560 Output: Urine 1950 Other: Voiding Method Bedside Commode Bedside Commode - Labs CBC & Chem 7: 09/08/20 04:07 09/10/20 07:51 Labs: Abnormal Lab Results - Last 24 Hours (Table) 09/09/20 09/09/20 09/10/20 Range/Units 17:18 20:20 07:51 Potassium 3.2 L (3.5-5.1) mmol/L Carbon Dioxide 35 H (22-30) mmol/L BUN 53 H (7-17) mg/dL Creatinine 1.61 H (0.52-1.04) mg/dL POC Glucose (mg/dL) 173 H 204 H (75-99) mg/dL Calcium 7.8 L (8.4-10.2) mg/dL AST 55 H (14-36) U/L Total Protein 5.7 L (6.3-8.2) g/dL Albumin 3.2 L (3.5-5.0) g/dL Microbiology - Last 24 Hours (Table) 09/05/20 03:06 Blood Culture - Preliminary Blood No Growth after 120 hours 09/06/20 21:45 Gram Stain - Final Sputum Sputum Culture - Final
--- NOTE | 2020-09-10 12:32 | PN ---
PROGRESS NOTE Patient is seen for followup for acute kidney injury. The patient's renal function continues to improve. She is currently being diuresed. Lasix is at 60 mg IV q.12 hours. Overall, patient states she is better but remains with significant edema. PHYSICAL EXAMINATION: On examination today, blood pressure 135/62, heart rate 83 per minute. She is afebrile. Examination of the heart S1, S2. Examination of the lungs, bilateral breath sounds are heard. Decreased breath sounds at bases, basal crackles heard. Abdomen is soft, nontender, obese. Examination of lower extremities shows edema 2+ bilaterally. Left foot is currently wrapped. LAB: Show sodium 141, potassium 3.2, chloride 98, CO2 of 35, BUN 53 serum creatinine 1.6, calcium 7. ASSESSMENT: 1. Acute kidney injury, mostly cardiorenal. Currently improving. Patient is maintained on IV Lasix. She remains fluid overloaded. Chest x-ray from this morning shows some improvement in airspace disease. Her weight is down as well. We can continue with the Lasix. I will increase it to q.8 hours for about 24-48 hours. 2. Metabolic acidosis associated with acute kidney injury, currently improved. 3. Atrial fibrillation with RVR maintained on amiodarone and Lopressor. 4. Cardiomyopathy, ejection fraction 40% to 45%. 5. Congestive heart failure, chronic, mostly systolic. 6. Acute myocardial infarction status post cardiac catheterization, coronary stent placement 08/29/2020. PLAN: Increase Lasix to 60 mg IV q.8 hours. Repeat labs in a.m. Replace potassium. Maintain salt and fluid restriction. MMODL / IJN: [id number] /
[2020-09-10] MEDS ORDERED: FUROSEMIDE 10 MG/ML 10 ML VIAL IV SCH (16:00)
[2020-09-10 17:02] LABS: Glucose,Whole Blood 230 mg/dL (75-99)
--- NOTE | 2020-09-10 19:50 | PN ---
PROGRESS NOTE DATE OF SERVICE: 09/10/2020. FOR FOLLOWUP: 1. Left big toe amputation site osteomyelitis. 2. Pneumonia. INTERVAL HISTORY: Patient is afebrile. The patient is breathing more comfortably, still requiring high- flow nasal cannula oxygen though. Denies any chest pain. Minimal cough. No abdominal pain or any pain to the left big toe amputation site. PHYSICAL EXAMINATION: Blood pressure 124/60 with a pulse of 82. Temperature 98. She is 90% on 10 L high-flow oxygen. General description is an elderly female up in the bed in no distress. Respiratory system: Unlabored breathing, decreased breath sounds in the base, with no wheeze. Heart S1, S2. Regular rate and rhythm. Abdomen soft, no tenderness. LABS: BUN of 23, creatinine 1.61. Procalcitonin was 0.12. Sputum is negative. DIAGNOSTIC IMPRESSION AND PLAN: 1. Patient with left big toe amputation site osteomyelitis for which the patient was on vancomycin, transition to daptomycin because of kidney failure. We will recheck a CPK level. 2. Patient with concern for possible pneumonia covered with Zosyn. Sputum is negative for resistant pathogen. Hopefully finish therapy with oral antibiotics. 3. Continue supportive care. MMODL / IJN: [id number] /
[2020-09-10 20:25] LABS: Glucose,Whole Blood 282 mg/dL (75-99)
[2020-09-10] MEDS: MONTELUKAST 10 MG TAB PO SCH (22:19)
[2020-09-10] MEDS: ATORVASTATIN 80 MG TAB PO SCH (22:19)
[2020-09-11 07:15] LABS: Glucose,Whole Blood 92 mg/dL (75-99)
[2020-09-11] MEDS: INSULIN DETEMIR (LEVEMIR) 100 UNIT/ML SYR SQ SCH ×2 (07:22→20:44)
[2020-09-11] MEDS: INSULIN ASPART (NovoLOG) 100 UNIT/ML VIAL SQ SCH ×4 (07:24→20:44)
[2020-09-11] MEDS: ALBUTEROL HFA INHALER INHALATION PRN (08:03)
[2020-09-11] MEDS: SYMBICORT 160-4.5 MCG INHALER INHALATION SCH ×2 (08:04→19:53)
[2020-09-11] MEDS: AMIODARONE 200 MG TAB PO SCH ×2 (08:42→20:44)
[2020-09-11] MEDS: DULoxetine HCL 60 MG CAPSULE.DR PO SCH (08:42)
[2020-09-11] MEDS: ASPIRIN 81 MG PO SCH (08:42)
[2020-09-11] MEDS: CLOPIDOGREL 75 MG TAB PO SCH (08:42)
[2020-09-11] MEDS: DOXYCYCLINE 100 MG CAP PO SCH ×2 (08:42→20:44)
[2020-09-11] MEDS: METOPROLOL SUCCINATE (ER) 100 MG TAB.ER.24H PO SCH (08:42)
[2020-09-11] MEDS: APIXABAN 2.5 MG TABLET PO SCH ×2 (08:42→20:44)
[2020-09-11] MEDS: PIPERACILLIN-TAZOBACTAM 3.375 GM in SODIUM CHLORIDE 0.9% 100 ML IVPB SCH ×3 (08:43→23:18)
[2020-09-11] MEDS: DAPTOmycin 500 MG in SODIUM CHLORIDE 0.9% 50 ML IVPB SCH (08:43)
[2020-09-11] MEDS ORDERED: FUROSEMIDE 80 MG TAB PO SCH (09:00)
[2020-09-11 09:22] LABS: Basophils % (A) 0 %; Eosinophils # (A) 0.3 k/uL (0-0.7); Eosinophils % (A) 3 %; HCT 29.4 % (34.0-46.0); HGB 9.7 gm/dL (11.4-16.0); Lymphocytes # (A) 1.8 k/uL (1.0-4.8); Lymphocytes % (A) 14 %; MCH 30.9 pg (25.0-35.0); MCHC 33.1 g/dL (31.0-37.0); MCV 93.3 fL (80.0-100.0); Mean Platelet Volume 7.2; Monocytes # (A) 0.6 k/uL (0-1.0); Monocytes % (A) 4 %; Neutrophils # (A) 10.1 k/uL (1.3-7.7); Neutrophils % (A) 78 %; Platelet Count 331 k/uL (150-450); RBC 3.15 m/uL (3.80-5.40); RDW 14.3 % (11.5-15.5)
--- NOTE | 2020-09-11 09:36 | P.PN ---
Subjective Progress Note Date: 09/11/20 70-year-old female that typically sees Dr. Rojas for her chronic bronchial asthma. The patient came in to the wound center, for hyperbaric treatment, on August 29. Apparently that time, she was having shortness of breath, and chest pain. She was immediately sent to the emergency room. She was thought to have an ST segment elevation myocardial infarction, and with the catheterization laboratory and had stents placed. She's in the intensive care unit now. She is on 6 L nasal cannula. Normally she wears 2-3 L. Anyway, we are asked to see her because of the worsening shortness of breath, and to rule out pneumonia. The patient denies any fever or chills. The patient denies cough or phlegm pr oduction. Her chest x-ray lipase and shows borderline cardiomegaly and some interstitial changes and small effusions consistent with heart failure. In addition, her troponins were elevated, and her BMP was elevated as well. In my opinion, nothing really points towards pneumonia as an etiology of her worsening shortness of breath. In addition, it does not appear that her asthma is particularly active this time also. She's not wheezing, or having any chest tightness. The patient states that she was recently in the hospital 3 weeks ago with an episode of heart failure as well. Her medical history includes hypertension, CAD, hyperlipidemia, asthma, diabetes, and nonhealing ulcers of the lower extremities. The patient also has a history of CVA, rheumatoid arthritis, and previous amputations of the digits of the foot for nonhealing wounds. White count 10.3, hemoglobin 9.9, hematocrit 28.6, and platelet count 255,000. Sodium 134, potassium 4.5, chlorides 103, CO2 23, anion gap is 8, BUN 31, creatinine 2.06. N-terminal proBNP is 4600. Troponins were 34.2 and 59.7 respectively. Progress note dated 09/02/2020. 70-year-old female with a history of chronic bronchial asthma. The patient was admitted to the hospital via the emergency room, with ST segment elevation myocardial infarction. She had stents placed in the catheterization laboratory. She came to the intensive care unit for further monitoring and treatment. She was thought to possibly have pneumonia. We thought her problem was primarily heart failure. She responded very nicely to Lasix therapy. She is resting comfortably now. She is on high flow nasal O2 at 10 L. She's not receiving any IV fluids. Labs today include a sodium 133 potassium 4.7, chlorides 103, CO2 21, and anion gap of 9. BUN and creatinine were 39 and 2.41 respectively. Pro- calcitonin level was 0.34. Chest x-ray is improved. Progress note dated 09/03/2020. 70-year-old female again seen in the intensive care unit, room 258. She has a history of chronic bronchial asthma. She was admitted to the hospital through the emergency room, with ST segment elevation myocardial infarction. She had stents placed in the catheterization laboratory. She came back to the intensive care unit for further monitoring and treatment. She was thought to have pneumonia, for which we were consulted. We felt the problem was primarily CHF/heart failure. The patient has responded very nicely to Lasix therapy. Currently resting comfortably. She is on cefepime HEENT and daptomycin for a foot wound. She's not receiving any IV fluids. She is on 6 L nasal O2. Cardizem will be started for atrial fibrillation. She denies any chest pain. Currently, her glucose is 144 and her creatinine is 2.36. The x-rays from the and are reviewed. On 09/04/2020 patient seen in follow-up in the intensive care unit. She is awake and alert, oriented 3, she is currently on 6 L of oxygen her pulse ox is 90-92%, she is mildly short of breath with conversation, but appears to be in no acute respiratory distress. She remains in A. fib and the rate is tachycardic with a heart rate between 125-140 BPM, she is on Eliquis for 2.5 mg twice daily for anticoagulation and she is on Cardizem at 10 mg per hour. She's been afebrile, she is not requiring any vasopressor support, today's chest x-ray shows pulmonary venous hypertension and interstitial edema and a small pleural effusion on the right was difficult to exclude. Patient is on lactated Ringer's had a rate of 75 ML per hour, she's had no nausea vomiting or diarrhea. Patient remains on antibiotics with a combination of cefepime and daptomycin for recent history of osteomyelitis in her left big toe, status post recent amputation of the left great toe. ID service is following. The area of amputated toe is healing well. The incision is clean dry and intact, no drainage. These labs have been reviewed, ESR is elevated at 126, and CRP also remains elevated at 19.5. Sodium is 134, potassium is 4.4, CO2 is 15, BUN is 50, and creatinine is 2.05. Urology is following and recommended to switch to IV fluids from lactated Ringer's to bicarbonate infusion with D5W with 3 A of bicarbonate at a rate of 50 ML per hour. 09/05/2020, the patient is being seen for follow-up. Yesterday, the patient had worsening shortness of breath and she decompensated and afternoon. I reeva luated her. She was in pulmonary edema. She was started on tachycardia. She was also bronchospastic and wheezy. At that point, I give the patient another dose of Lasix. I started on IV Solu-Medrol. She did respond also to high flow oxygen and she was placed on high flow oxygen with an FiO2 of 80% and a flow of 60 L per minute. This morning she is doing much better. Her heart rate has slowed down significantly. She converted into normal sinus rhythm and the patient is currently on Cardizem 5 mg an hour drip, amiodarone was discontinued and the patient is still on Eliquis 2.5 mg by mouth twice a day for long-term anticoagulation. She was given Lasix. Fluid balance has been essentially 0 balance the patient remains on Lasix 60 mg IV every 12 hours. The patient is also on a bicarb infusion with a total of 150 mEq of sodium bicarb running at the rate of 50 mL an hour. Her serum bicarb is up to 17 on today's evaluation. Creatinine is down to 1.8. Nephrology is also on the case regarding her kidney failure. The patient remains on broad-spectrum antibiotics regarding osteomye litis of the left big toe that was already amputated and the patient remains on a combination of cefepime, daptomycin and she is afebrile hemodynamically stable and the surgical wound site is dry clean and intact without any evidence of drainage. The patient's pulse ox is currently 96% on an FiO2 of 80% with a flow of 60 L. The patient is seen today 09/06/2020 in follow-up in the intensive care unit. She is currently awake and alert in no acute distress. She is however still requiring AirVo high flow oxygen at 60 L and 93% FiO2 to maintain O2 saturation in the 80s. Her cough is dry and nonproductive. Chest x-ray shows cardiomegaly, increasing interstitium, bilateral airspace disease left greater than right. She is currently on Lasix 60 mg IV every 12 hours. In a -750 ML balance. Blood cultures reveal no growth. She remains afebrile. White count 10.4. Hemoglobin 9.0. Sodium 133. Potassium 3.6. Creatinine 1.95. Currently in sinus rhythm. Her amiodarone drip will be finishing and she'll be transitioned to oral Cordarone 400 mg twice a day. She is on Orencia for her rheumatoid arthritis. She remains on Symbicort, DuoNeb inhalations, IV Solu- Medrol, Singulair. Anticoagulated with Eliquis. Insulin being adjusted. She remains on a bicarb drip at 50 MLS per hour. The patient is seen today 09/07/2020 in follow-up in the intensive care unit. She is currently sitting up in bed. Awake and alert in no acute distress. She is now on 15 L high flow nasal cannula and maintaining O2 saturations 88-94%. Chest x-ray reveals patchy and confluent airspace disease throughout the right lung and within the left lower lobe. Small bilateral effusions. Suspect multifocal pneumonia with superimposed pulmonary edema. She remains on Lasix 60 mg IV every 12 hours. Currently in a -2 L balance. Antibiotics are now doxycycline, daptomycin and Zosyn. Blood cultures reveal no growth. Sputum culture pending. She is continued on IV Solu-Medrol, Symbicort, DuoNeb inhalati ons, Singulair. White count 11.3. Hemoglobin 9.4. Sodium 137. Potassium 3.9. Creatinine 2.01. Glucose 150. Remains on Levemir, sliding scale. Currently in sinus rhythm. Continued on amiodarone. Anticoagulated with Eliquis. Patient is seen today 09/08/2020 in follow-up in the intensive care unit. She is awake and alert in no acute distress. Doing quite a bit better again today compared to yesterday. She is down to 11 L high flow nasal cannula with O2 saturation 91%. She is sitting up in a chair at the bedside. She remains in sinus rhythm. Continued on oral amiodarone. Anticoagulated with Eliquis. Was in a negative balance yesterday of 2 L. Currently in a negative of 90 ML's. Creatinine 1.8 today. She continues with some lower extremity edema. She remains on IV Lasix 60 mg twice a day. She is continued on antibiotics in the form of daptomycin, Zosyn, doxycycline. IV Solu-Medrol. Blood cultures reveal no growth. Sputum culture pending. White count 12.7. Hemoglobin 9.1. Sodium 137. Potassium 3.6. Glucose 139. 09/09/2020, the patient in medical floor. She remains on 11 L about 2 by nasal cannula. She remains on diuretics. She is also on broad-spectrum antibiotics per ID. She is in a sinus rhythm. Fluid balance is been negative in the order of 2.2 L over the past 24 hours. Her current pulse ox is nor that of 92-93% on 11 L of oxygen by nasal cannula. No chest pain. She did have some epistaxis related to high oxygen flow and she is also on Eliquis 2.5 mg by mouth twice a day. She is also on Levemir insulin 20 units twice a day in addition to 7 units of NovoLog with meals and sliding scale coverage. Rest of the labs otherwise are still pending for now 09/10/2020, I'm seeing the patient for a follow-up. The patient continues to diabetes with IV Lasix. Her creatinine is down to 1.6 with a BUN of 53. She is on a lacerated the diuretics and the patient is interested in a negative fluid balance of 2.2 L over the past 24 hours and she's had a tolerance another negative fluid balance over the next 24 hours. Her weight is down from 98 down to 94 kg. She remains on oxygen and she is currently on 10-11 L of oxygen by nasal cannula. No other significant events otherwise for now. She is doing well pH is sitting up on a chair. She is afebrile. She is hemodynamic is stable. No angina. No palpitations. No chest pain. He is using incentive spirometer and she is up to 2000 on her incentive spirometer on today's evaluation. Tolerating her diet. The chest x-rays also showing improvement in the airspace disease bilaterally. 09/11/2020. The patient continues to diabetes with IV Lasix. The patient is in a negative fluid balance. Creatinine from yesterday was 1.6. Follow-up levels from today are still pending. Hemoglobin is at 9.7. Otherwise, the patient's is stable. The patient is on Lasix 80 mg on a daily basis. The patient is also on long-term anticoagulation 2.5 mg by mouth twice a day. The patient remains on IV antibiotics per ID. Her oxygen still running at 10 L nasal cannula with a pulse ox ranging between 90-94%. This should be gradually weaned. Lower extremity edema is improving. Objective - Vital Signs Vital signs: Vital Signs Temp 97.9 F 09/10/20 20:00 Pulse 69 09/11/20 04:00 Resp 18 09/11/20 04:00 BP 126/54 09/11/20 04:00 Pulse Ox 90 L 09/11/20 04:00 Intake & Output 09/10/20 09/11/20 09/11/20 18:59 06:59 18:59 Intake Total 1680 120 Output Total 1002 Balance 678 120 Weight 94 kg Intake: Oral 1680 120 Output: Stool 2 Urine/Stool Mix 1000 Other: Voiding Method Bedside Commode # Voids 1 1 - Exam GENERAL EXAM: Alert, very pleasant, 70-year-old white female, on 11 l of oxygen the pulse ox of 92%, comfortable in no apparent distress. HEAD: Normocephalic/atraumatic. EYES: Normal reaction of pupils, equal size. Conjunctiva pink, sclera white. NOSE: Clear with pink turbinates. THROAT: No erythema or exudates. NECK: No masses, no JVD, no thyroid enlargement, no adenopathy. CHEST: No chest wall deformity. Symmetrical expansion. LUNGS: Equal air entry with mild expiratory wheezes CVS: Irregular rate and rhythm, normal S1 and S2, no gallops, no murmurs, no rubs ABDOMEN: Soft, nontender. No hepatosplenomegaly, normal bowel sounds, no guarding or rigidity. EXTREMITIES: No clubbing, no edema, no cyanosis, 2+ pulses and upper and lower extremities. MUSCULOSKELETAL: Muscle strength and tone normal. Patient has bilateral great toes amputated, incisions are clean dry and intact, well-healed SPINE: No scoliosis or deformity SKIN: No rashes CENTRAL NERVOUS SYSTEM: Alert and oriented -3. No focal deficits, tone is normal in all 4 extremities. PSYCHIATRIC: Alert and oriented -3. Appropriate affect. Intact judgment and insight. - Labs CBC & Chem 7: 09/11/20 08:08 09/10/20 07:51 Labs: Abnormal Lab Results - Last 24 Hours (Table) 09/10/20 09/10/20 09/10/20 Range/Units 07:51 12:31 16:59 WBC (3.8-10.6) k/uL RBC (3.80-5.40) m/uL Hgb (11.4-16.0) gm/dL Hct (34.0-46.0) % Neutrophils # (1.3-7.7) k/uL POC Glucose (mg/dL) 128 H 230 H (75-99) mg/dL Procalcitonin 0.12 H (0.02-0.09) ng/mL 09/10/20 09/11/20 Range/Units 20:23 08:08 WBC 13.0 H (3.8-10.6) k/uL RBC 3.15 L (3.80-5.40) m/uL Hgb 9.7 L (11.4-16.0) gm/dL Hct 29.4 L (34.0-46.0) % Neutrophils # 10.1 H (1.3-7.7) k/uL POC Glucose (mg/dL) 282 H (75-99) mg/dL Procalcitonin (0.02-0.09) ng/mL Microbiology - Last 24 Hours (Table) 09/05/20 03:06 Blood Culture - Final Blood No Growth after 144 hours Assessment and Plan Plan: [address] elevated myocardial infarction, status post heart catheterization and angioplasty and stenting 2 of the SVG to the RCA 2 Acute hypoxic respiratory failure secondary to acute exacerbation of chronic systolic congestive heart failure. On Lasix. She remains in negative fluid balance. She is improving and she is down to 10-11 L about 2 by nasal cannula. 3 A. fib with RVR , is back in normal sinus rhythm 4 Acute kidney injury, improving and creatinine 1.6 5 Chronic systolic CHF with ejection fraction of 40-45% 6 Possible underlying pneumonia, pro-calcitonin 0.60, currently on Zosyn, daptomycin and doxycycline. COVID-19 PCR was negative and fully vaccinated 7 Recent history of left big toe amputation site related to osteomyelitis in June 2020, patient remains on daptomycin 8 Diabetes type 2 better controlled 9 History of chronic bronchial asthma, mild intermittent 10 Status post four-vessel bypass grafting 11 History of carotid artery disease with bilateral carotid endarterectomy 12 Previous history of right great toe amputation in 2014 13 Peripheral vascular disease with previous stenting of the right lower extremity 14 History of CVA Plan: Clinically improving. The chest x-ray findings are also improving. Continue Lasix, preferably IV Awaiting electrolytes from today. Wean down the FiO2 FiO2 down to 8 L in the pulse ox will be checked in an hour or so. The patient lives in oxygen at 3 dyspnea per minute nasal cannula. Awaiting labs from today Order follow-up labs and chest x-ray for tomorrow Currently on Zosyn, doxycycline, daptomycin Remains on IV diuretics, in a negative balance We will continue to follow
[2020-09-11 09:51] LABS: C Reactive Protein 12.7 mg/dL (<1.0)
[2020-09-11 10:43] LABS: Erythrocyte Sedimentation Rate 119 mm/hr (0-20)
[2020-09-11 11:48] LABS: Glucose,Whole Blood 199 mg/dL (75-99)
[2020-09-11] MEDS: SENNOSIDES-DOCUSATE SODIUM 1 EACH TAB PO SCH (11:56)
--- NOTE | 2020-09-11 12:08 | P.PN ---
Subjective Progress Note Date: 09/11/20 This is a 70-year-old female patient was coronary artery disease and prior open heart surgery with bypasses as well as hypertension and dyslipidemia and paroxysmal atrial fibrillation presented to the hospital with a chest discomfort and was diagnosed with acute inferior ST patient myocardial infarction. She underwent an emergent heart catheterization was found acute total occlusion of a larger graft to the RCA was a large thrombus burden and she underwent an aspiration thrombectomy manually and mechanically. Post procedure she went into atrial fibrillation with RVR and converted to normal sinus mechanism on amiodarone. The patient is sitting up in the recliner chair and states she is feeling much better. She has been able to ambulate to the bathroom with a walker and nursing assistance. She states she got up and showered this morning. She did get mildly short of breath. No chest pain or chest pressure. No dizziness when ambulating to the chair. No orthopnea. GENERAL: Well-appearing, well-nourished and in no acute distress. NECK: Supple without JVD or thyromegaly. LUNGS: Breath sounds clear to auscultation bilaterally. Respiration equal and unlabored. No wheezes, rales or rhonchi. HEART: Regular rate and rhythm without rubs or gallops. S1 and S2 heard. Soft systolic murmur EXTREMITIES: Normal range of motion, mild edema. No clubbing or cyanosis. Peripheral pulses intact and strong. VITALS: Blood pressure 126/54, pulse rate 69, respiratory rate 18, SpO2 92% on 10 L high flow NC LABS: CK 212, CRP 12.7, white count 13.0, hemoglobin 9.7, hematocrit 29.4, platelet 331 TELEMETRY: Sinus mechanism. Heart rate in the 80s. IMPRESSION: Acute coronary syndrome Coronary artery disease status post thrombectomy A. fib with RVR, maintaining sinus rhythm on amiodarone Hypokalemia, supplement per protocol Acute kidney injury, improving PLAN: Continue oral Lasix Encourage ambulation Pulmonary hygiene Continue strict I&O Continue to monitor electrolytes and kidney function Further recommendations based on clinical course The patient has been seen and evaluated. Plan of care has been reviewed and agreed upon by Dr Paredes. Objective - Vital Signs Vital signs: Vital Signs Temp 97.9 F 09/10/20 20:00 Pulse 69 09/11/20 04:00 Resp 18 09/11/20 04:00 BP 126/54 09/11/20 04:00 Pulse Ox 90 L 09/11/20 04:00 Intake & Output 09/10/20 09/11/20 09/11/20 18:59 06:59 18:59 Intake Total 1680 120 Output Total 1002 Balance 678 120 Weight 94 kg Intake: Oral 1680 120 Output: Stool 2 Urine/Stool Mix 1000 Other: Voiding Method Bedside Commode # Voids 1 1 - Labs CBC & Chem 7: 09/11/20 08:08 09/10/20 07:51 Labs: Abnormal Lab Results - Last 24 Hours (Table) 09/10/20 09/10/20 09/10/20 Range/Units 07:51 12:31 16:59 WBC (3.8-10.6) k/uL RBC (3.80-5.40) m/uL Hgb (11.4-16.0) gm/dL Hct (34.0-46.0) % Neutrophils # (1.3-7.7) k/uL ESR (0-20) mm/hr POC Glucose (mg/dL) 128 H 230 H (75-99) mg/dL Creatine Kinase (30-135) U/L C-Reactive Protein (<1.0) mg/dL Procalcitonin 0.12 H (0.02-0.09) ng/mL 09/10/20 09/11/20 09/11/20 Range/Units 20:23 08:08 08:08 WBC 13.0 H (3.8-10.6) k/uL RBC 3.15 L (3.80-5.40) m/uL Hgb 9.7 L (11.4-16.0) gm/dL Hct 29.4 L (34.0-46.0) % Neutrophils # 10.1 H (1.3-7.7) k/uL ESR 119 H (0-20) mm/hr POC Glucose (mg/dL) 282 H (75-99) mg/dL Creatine Kinase 212 H (30-135) U/L C-Reactive Protein 12.7 H (<1.0) mg/dL Procalcitonin (0.02-0.09) ng/mL 09/11/20 Range/Units 11:46 WBC (3.8-10.6) k/uL RBC (3.80-5.40) m/uL Hgb (11.4-16.0) gm/dL Hct (34.0-46.0) % Neutrophils # (1.3-7.7) k/uL ESR (0-20) mm/hr POC Glucose (mg/dL) 199 H (75-99) mg/dL Creatine Kinase (30-135) U/L C-Reactive Protein (<1.0) mg/dL Procalcitonin (0.02-0.09) ng/mL Microbiology - Last 24 Hours (Table) 09/05/20 03:06 Blood Culture - Final Blood No Growth after 144 hours
--- NOTE | 2020-09-11 13:02 | PN ---
PROGRESS NOTE Patient is seen for followup for acute kidney injury. The patient's renal function had been improving. Creatinine was down to 1.6 yesterday. No labs are available today. Currently she is being diuresed and Lasix is a switch to p.o. today. Yesterday, I had increased the Lasix to 60 mg q.8 hours. Overall, patient states she is breathing better. Her weight is about the same. A 24 hour urine output about 1 L. PHYSICAL EXAMINATION: Blood pressure 126/54, heart rate 69 per minute. She is afebrile. Examination of the heart S1, S2. Examination of the lungs, decreased breath sounds at bases. ABDOMEN: Soft, obese. Exam of lower extremities shows edema 2+ bilaterally. 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 LAB: Labs are not available from today. ASSESSMENT: 1. Acute kidney injury, acute tubular necrosis/cardiorenal currently improving. The patient has been diuresed. Lasix switched to p.o. today. She remains volume overloaded. I will increase the dose of p.o. diuretics. 2. Metabolic acidosis associated with acute kidney injury, now improved. 3. Atrial fibrillation with RVR maintained on amiodarone and Lopressor. 4. Cardiomyopathy, ejection fraction 40% to 45%. 5. Congestive heart failure, mostly chronic systolic. 6. Acute myocardial infarction status post cardiac catheterization, coronary stent placement. PLAN: Increase Lasix to b.i.d. Replace potassium and repeat labs. MMODL / IJN: [id number] /
--- NOTE | 2020-09-11 13:53 | P.PN ---
Subjective Progress Note Date: 09/11/20 This is a 70-year-old female patient of Dr. Sanderson with past medical history of diabetes mellitus type 2, hypertension, hyperlipidemia, CVA in 2013 with no residuals, coronary artery disease status post 4 vessel CABG, bilateral carotid endarterectomies, mild intermittent asthma, osteomyelitis status post right great toe amputation 2014 and left toe amputation in June 2020 with revision on August [address] Gregory and patient was discharged home on August 12 with plan for IV vancomycin and oral Flagyl for 4 weeks, remote history of tobacco use area patient came in the hospital due to chest pain that started in the midsternal area and radiated to her left shoulder blade. She also had naus ea which has continued. She denies having any epigastric pain. No blood in her stools. She came into the hospital for evaluation and was diagnosed with ST elevated myocardial infarction and was taken directly to the cardiac collaborating supervising physician by Dr. Soto. Heart catheterization revealed occluded SVG to the RCA. Patient subsequently underwent PTCA with successful stenting of the SVG to RCA which was done by Dr. Plata. She then went to the intensive care unit where she is seen this morning. She states the chest pain is completely gone. She continues to have nausea. She states her light bulb assembler is Dr. walsh at [place]. 90% on 2 L nasal cannula. Initial hemoglobin 0.6, white count 8.2, platelet count 239. INR 0.9. Electrolytes normal. BUN 33 and creatinine 1.51. Blood sugar initially 301. Blood sugar is now 170. Magnesium 1.9, total bilirubin 0.4, AST 206, ALT 25, alkaline phosphatase 30. Initial troponin 34.2. ProBNP 4600. Coronavirus PCR not detected. Echocardiogram reveals EF of 40-45%, moderate concentric left hypertrophy, mild aortic valve sclerosis, mild mitral regurgitation. 08/31: Remains in the intensive care unit by scheduled for transfer to the cardiac stepdown unit. She denies having any chest pain. She is on O2 normally has a home O2 at 3 L nasal cannula. She is complaining of some abdominal distention and Senokot will be added. Consult for Dr. Mccabe regarding left great toe wound. Patient is continued on IV vancomycin and oral Flagyl but is also on Bactrim from home. She has been afebrile, heart rate 83, blood pressure 109/49, pulse ox 91% on 3 L nasal cannula. Repeat blood work reveals creatinine of 1.8. Blood sugars are running between 113 187. Repeat blood work ordered for tomorrow. 09/01: Patient went into atrial fibrillation last evening now converted to sinus rhythm. Cardiology has started the patient on eliquis 2.5 mg twice daily and Toprol-XL increased to 75 mg daily. Brilinta changed to Plavix. Lasix is at 40 oral daily but yesterday patient had some hypoxia and was given Xanax and a dose of IV Lasix. She is currently prophylaxing 90% on 6 L nasal cannula. She has been afebrile, heart rate 84, blood pressure 104/73. Patient has been seen by Dr. Mccabe with plan to continue vancomycin pharmacy to dose and Flagyl. Chest x-ray reveals reticulonodular infiltrates at the lung bases right greater than left. Correlate for pneumonia. Coronavirus PCR ordered and consult added for pulmonary medicine. Patient is afebrile, heart rate 84, blood pressure 104/73. Repeat blood work reveals WBC 10.3, hemoglobin 9.9, platelet count 255. Sodium 134, potassium 4.5, chloride 103, CO2 23, BUN 31 and creatinine 2.06. Blood sugar running between 101 and 233. Patient is scheduled to transfer to the [facility] stepdown unit. 09/02: She remains in intensive care unit waiting for bed on the cardiac stepdown unit. The patient has been seen by pulmonary medicine for chronic bronchial asthma and fluid overload, and pneumonia ruled out, plan to keep pulse ox between 88 and 92% at her baseline of 3 L nasal cannula. She is currently on 10 L nasal cannula at pulse ox of 90% to be weaned down today. Heart rate 115, afebrile, blood pressure 110/86. Patient received 2 doses of IV Lasix yesterday with improvement of her shortness of breath. Capillary blood glucose running between 107 and 149. Sodium 133, potassium 4.7, chloride 103, CO2 21, BUN 39 and creatinine 2.41. Probable calcitonin 0.34. Consult is in place with nephrology. Repeat chest x-ray reveals some improvement of the aeration left lung. Cardiomegaly and diffuse right lung reticulonodular opacities redemonstrated. 09/03: Patient is seen today in the intensive care unit still waiting for bed on the cardiac stepdown unit. She is sitting up in recliner and appears to have mild shortness of breath. She denies having shortness of breath. 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 Cardiology is following and is planning for a dose of IV Lopressor and if that is not successful, oral Cardizem. Patient has been seen by nephrology and recommended changing vancomycin to daptomycin. Repeat creatinine today is at 2.36. Blood sugars are running between 120 149. 09/04: Patient remains in the intensive care unit waiting for cardiac stepdown unit bed. She continues to have heart rate in the 140s, atrial fibrillation and cardiology has started her on Cardizem drip. There is tentative plan for electrocardioversion tomorrow. Patient denies any new complaints today. Pulse ox is running 90-92% on 6 L nasal cannula. She's been afebrile, blood pressure 104/50. Blood work today reveals sed rate of 126, C-reactive protein 19.5. BUN 15 creatinine 2.05. Blood sugars are running between 128 and 225. Potassium 4.4, CO2 15. Repeat chest x-ray reveals pulmonary venous hypertension and interstitial edema. Difficult to exclude small effusion. Nephrology started bicarb drip. Losartan and potassium are on hold. 09/05: Patient remains in the intensive care unit. Yesterday she developed worsening shortness of breath and pulmonary ordered extra IV Lasix, oxygen was switched over to high flow and she is currently on airflow. She has converted into a sinus rhythm and amiodarone was discontinued. She is currently on Lasix 60 mg IV every 12 hours, continued on bicarbonate drip per nephrology. Repeat chest x-ray reveals congestive heart failure, interstitial edema, may be small pleural effusion, cardiomegaly and postoperative changes. Pulse ox is 93%, afebrile, heart rate 75, respiratory rate 26, blood pressure 126/66. Repeat blood work reveals WBC 4.9, hemoglobin 9.3, platelet count 355. Sodium 132, potassium 4.4, chloride 103, CO2 17, BUN 15 creatinine 1.89. Blood sugars are running 205-315. CK is 174. Levemir will be increased to 20 units twice daily and scheduled NovoLog increased to 7 units with meals. Patient has a memorial service on Friday for her grandson and is hoping to be discharged by then so that she can attend. Cefepime has been added by Dr. Mccabe for pneumonia and patient is continued on daptomycin and oral Flagyl. 09/06: Patient remains in the intensive care unit, she is oxygenating poorly with AirVO but does not recognize this. She is very anxious to get better and be discharged for her grandson's Memorial. Discussed the need for patient to undress and manage her own health concerns as her primary focus. Amiodarone drip transitioned to oral amiodarone at 400 mg twice daily and metoprolol increased to 100 mg daily. She has been afebrile, heart rate 79, blood pressure 125/70, pulse ox 83% on FiO2 93, O2 flow rate 60. Repeat blood work reveals WBC 10.4, hemoglobin 9, platelet count 384. Sodium 133, potassium 3.6, chloride 101, CO2 24, BUN 16 creatinine 1.95. Blood sugars have been running between 188 and 329. Blood sugars are improving.. Blood cultures no growth at 24 hours. Chest x-ray reveals correlate for pneumonia versus edema and congestive heart failure. Stable cardiomegaly. Difficult to exclude pleural effusions. Patient is scheduled for CT chest today. She is continued on IV antibiotics with cefepime and daptomycin. 09/07: Patient remains in the intensive care unit patient is sitting up in bed. She still has had shortness of breath that seems to be more comfortable today. She is off AirVO and is on high flow nasal cannula 15 L with pulse ox running between 88-94%. She has been afebrile, heart rate in the 70s, respiratory rate 24, blood pressure 129/69. Patient remains in sinus rhythm. Repeat blood work reveals WBC 11.3, hemoglobin 9.4, platelet count 408. Electrolytes are normal. BUN 66 and creatinine 2.01. Blood sugars running between 150 and 227. Calcium 8.1. Liver function tests normal. CT of the chest from yesterday revealed patchy and confluent airspace disease throughout the right lung base and with a left lower lobe. Consolidation is more confluent at the lung bases. Small right and left pleural effusions. Correlate for multifocal pneumonia and exclude superimposed patchy pulmonary edema. Possible 1.9 cm left thyroid nodule. Nonemergent thyroid ultrasound recommended. Dr. Mccabe has changed antibiotics for pneumonia from cefepime to Zosyn and doxycycline. Regarding antibiotics, patient is currently on daptomycin, doxycycline, Zosyn. Hospital bed will be ordered as patient requires out of the bed to be up and elevated 30 to alleviate dyspnea caused by COPD and fluid overload. Patient requires bedside commode because she is room confined due to significant hypoxic respiratory failure. 09/08: Patient was transferred out of the ICU she is down on oxygen to 10 L and seems to do well with it so far. She is not in any respiratory distress, pain is well controlled this point. Patient Cristobal lion has been under better control so far on amiodarone and still on anticoagulation with Eliquis. Remain on Lasix 60 mg IV twice a day and still on the current antibiotic between daptomycin and Zosyn. She will be continue on PTOT and try to be more aggressive with her this point. 09/09 Patient examined at bedside. Complains of poor appetite but denies any other significant complaints denies any chest pain or shortness of breath. Patient continues to be on 11 L of oxygen. She also endorses nosebleeds that has been continuous since yesterday. Her diarrhea has improved since yesterday is curr ently 2-3 bowel movements. Labs are reviewed patient's blood sugar continues to be in the low 60s. NovoLog mealtime insulin was discontinued. With decrease in Levemir to 10 units twice a day. Continue diabetic diet at this point. Afrin spray ordered every 4-6 hours for nosebleeds plan to switch to oral diuretic therapy tomorrow. Cardiology and pulmonary recommendations are appreciated. Continue doxycycline daptomycin and Zosyn per infectious disease recommendation for possible pneumonia and osteomyelitis 09/10 patient examined bedside. Mostly has improved on Afrin spray. She continues to have shortness of breath is currently on 10 L of oxygen. At 8.3 pulse 77 respiratory rate 18 blood pressure 147/63 oxygenating at 92% on daily 2. Labs are reviewed patient's sodium 141 potassium 3.2 chloride 98 bicarb 35 BUN 53 creatinine 1.62. Continue Lasix and 60 IV twice a day. Patient continues to have good negative urine output with a balance of 2.2 L in the last 24 hours. Patient does have loose stools to bowel movements. Bili obtain a CBC tomorrow. And fecal occult blood ordered as the specimen appeared to be tarry in color. 04/13 patient examined bedside. She appears depressed and is dealing with some underlying stress with her family. Patient's vitals this morning suggests afebrile pulse 69 and was tolerating pressure 136/54 oxygen saturation remains at 90% on 10 L of oxygen. Labs were rechecked patient continues to have leukocytosis of 13, hemoglobin stable at 9.7 ESR 119 CRP 12.7 CK to 212 pro- calcitonin 0.12 improved from 0.64 glucose stays between 199 -282 . Lasix switch to 80 twice a day. Lantus switch to 15 twice a day. Patient continues to remain on daptomycin and Zosyn. Antibiotic recommendations per infectious disease. REVIEW OF SYSTEMS Constitutional: No fever, no chills, no night sweats. No weight change. No we akness, Reports fatigue. No daytime sleepiness. EENT: No headache. No blurred vision or double vision, no loss of vision. No loss of Hearing, no ringing in the ears, no dizziness. No nasal drainage or congestion. Epistasis improved. No sore throat. Lungs: Reports shortness of breath, reports cough, no sputum production. Reports wheezing. Cardiovascular: No chest pain, reports lower extremity edema. Reports palpitations. No paroxysmal nocturnal dyspnea. No orthopnea. No lightheadedness or dizziness. No syncopal episodes. Abdominal: No abdominal pain. No nausea, vomiting. Loose stools tarry stools No loss of appetite. Genitourinary: No dysuria, increased frequency, urgency. No urinary retention. Musculoskeletal: No myalgias. No muscle weakness, no gait dysfunction, no frequent falls. No back pain. No neck pain. Bilateral lower extremity edema Integumentary: Reports left great toe wounds, no lesions. No rash or pruritus. No unusual bruising. No change in hair or nails. Neurologic: No aphasia. No facial droop. No change in mentation. No head injury. No headache. No paralysis. No paresthesia. Psychiatric: No depression. No anxiety. No mood swings. Endocrine: Elevated blood sugars. Objective - Vital Signs Vital signs: Vital Signs Temp 97.9 F 09/10/20 20:00 Pulse 69 09/11/20 04:00 Resp 18 09/11/20 04:00 BP 126/54 09/11/20 04:00 Pulse Ox 90 L 09/11/20 04:00 Intake & Output 09/10/20 09/11/20 09/11/20 18:59 06:59 18:59 Intake Total 1680 120 Output Total 1002 Balance 678 120 Weight 94 kg Intake: Oral 1680 120 Output: Stool 2 Urine/Stool Mix 1000 Other: Voiding Method Bedside Commode # Voids 1 1 - Exam GENERAL EXAM: Alert, comfortable in no apparent distress. HEAD: Normocephalic/atraumatic. EYES: Normal reaction of pupils, equal size. Conjunctiva pink, sclera white. NOSE: Clear with pink turbinates. THROAT: No erythema or exudates. NECK: No masses, no JVD, no thyroid enlargement, no adenopathy. CHEST: No chest wall deformity. Symmetrical expansion. LUNGS: Equal air entry with mild expiratory wheezes CVS: Irregular rate and rhythm, normal S1 and S2, no gallops, no murmurs, no rubs ABDOMEN: Soft, nontender. No hepatosplenomegaly, normal bowel sounds, no guarding or rigidity. EXTREMITIES: No clubbing, 1+ edema, no cyanosis, 2+ pulses and upper and lower extremities. MUSCULOSKELETAL: Muscle strength and tone normal. Patient has bilateral great toes amputated, incisions are clean dry and intact, well-healed wound at the base of the great toe with no drainage, base is yellow no surrounding cellulitis changes noted SPINE: No scoliosis or deformity SKIN: No rashes CENTRAL NERVOUS SYSTEM: Alert and oriented . No focal deficits PSYCHIATRIC: Appropriate affect. Intact judgment and insight. - Labs CBC & Chem 7: 09/11/20 08:08 09/10/20 07:51 Labs: Abnormal Lab Results - Last 24 Hours (Table) 09/10/20 09/10/20 09/10/20 Range/Units 07:51 16:59 20:23 WBC (3.8-10.6) k/uL RBC (3.80-5.40) m/uL Hgb (11.4-16.0) gm/dL Hct (34.0-46.0) % Neutrophils # (1.3-7.7) k/uL ESR (0-20) mm/hr POC Glucose (mg/dL) 230 H 282 H (75-99) mg/dL Creatine Kinase (30-135) U/L C-Reactive Protein (<1.0) mg/dL Procalcitonin 0.12 H (0.02-0.09) ng/mL 09/11/20 09/11/2021 Range/Units 08:08 08:08 11:46 WBC 13.0 H (3.8-10.6) k/uL RBC 3.15 L (3.80-5.40) m/uL Hgb 9.7 L (11.4-16.0) gm/dL Hct 29.4 L (34.0-46.0) % Neutrophils # 10.1 H (1.3-7.7) k/uL ESR 119 H (0-20) mm/hr POC Glucose (mg/dL) 199 H (75-99) mg/dL Creatine Kinase 212 H (30-135) U/L C-Reactive Protein 12.7 H (<1.0) mg/dL Procalcitonin (0.02-0.09) ng/mL Microbiology - Last 24 Hours (Table) 09/05/20 03:06 Blood Culture - Final Blood No Growth after 144 hours Assessment and Plan Plan: 1. Acute inferior ST elevated myocardial infarction status post heart catheterization and stenting of the SVG to RCA. Continue aspirin 81 mg daily, Toprol-XL 100 mg daily, Plavix 75 mg daily, atorvastatin 80 mg at bedtime. 2. New onset atrial fibrillation with RVR, paroxysmal atrial fibrillation. Continue Toprol-XL 100 mg daily, amiodarone 400 mg twice daily, eliquis 2.5 mg twice daily. Patient is in sinus rhythm. 3. Diabetes mellitus type 2, insulin requiring, uncontrolled with hyperglycemia. Levemir increased to 15 units twice daily and NovoLog scale and NovoLog with each meal discontnued . 4. Diabetic and peripheral vascular disease foot ulcer with osteomyelitis status post stump revision. Patient is currently on daptomycin, Zosyn, doxycycline. CK slightly elevated will discuss with infectious disease about daptomycin Consult with Dr. Mccabe appreciated. 5. Acute on chronic hypoxic respiratory failure secondary to acute systolic heart failure and pneumonia, possible gram-negative. COVID-19 testing negative. Pulmonary consult appreciated. Continue DuoNeb treatments 4 times daily as needed, Symbicort twice daily IV Lasix which 80 mg by mouth twice a day, monitor daily weights and I&O. Antibiotics are currently Zosyn, doxycycline. 6. Acute kidney injury with metabolic acidosis. Consult with nephrology appreciated. Losartan and potassium on hold. 7. Peripheral vascular disease with previous stenting of the right lower extremity. Patient regularly follows with Dr. Gregory. 8. Coronary artery disease with previous history of 4 vessel CABG. Patient's light bulb assembler is Dr. Brown at [facility]. 9. Chronic systolic heart failure, stable. Continue as above. 10. COPD. Continue DuoNeb treatment, Symbicort, Singulair. 11. History of CVA, stable. 12. Hyperlipidemia. Continue atorvastatin 80 mg at bedtime 13. Hypertension. Continue Toprol-XL. 14. Recurrent depression. Continue Cymbalta 60 mg daily 15. Chronic hypoxic respiratory failure on home O2 at 3 L. 16. Mild intermittent asthma, stable. 17. COVID-19 testing negative. Patient has been hospitalized during a pandemic. 18 epistaxis improved with Afrin spray 3 times a day 19. Tarry stools rule out bleeding. No clubbing stable at 9.7 Occult stool pending discharge planning: Patient will be able to go home by the time her oxygen demand is below 5 feet or more stable for more than 48 hours.
[2020-09-11 16:22] LABS: Glucose,Whole Blood 201 mg/dL (75-99)
[2020-09-11] MEDS: FUROSEMIDE 80 MG TAB PO SCH (18:04)
[2020-09-11 20:24] LABS: Glucose,Whole Blood 177 mg/dL (75-99)
[2020-09-11] MEDS: MONTELUKAST 10 MG TAB PO SCH (20:44)
[2020-09-11] MEDS: ATORVASTATIN 80 MG TAB PO SCH (20:44)
--- NOTE | 2020-09-12 00:39 | PN ---
PROGRESS NOTE DATE OF SERVICE: 09/11/2020. REASON FOR FOLLOWUP: 1. Left big toe amputation site osteomyelitis. 2. Pneumonia. The patient is currently afebrile. The patient is breathing comfortably. The patient's FiO2 is currently down to 8 L. No chest pain. No nausea, no vomiting. No abdominal pain. No diarrhea. PHYSICAL EXAMINATION: Her blood pressure is 114/78 with a pulse of 81, temperature of 97.2. She is 91% on trach collar. GENERAL DESCRIPTION is an elderly female lying in in no distress. Respiratory system: Unlabored breathing, decreased breath sounds at the base. No wheeze. HEART: S1, S2. Regular rate and rhythm. ABDOMEN: Soft, no tenderness. EXTREMITIES: No edema of the feet. LABS: White count 13: CPK slightly elevated was 12:12 pm. DIAGNOSTIC IMPRESSION AND PLAN: 1. Patient with left big toe amputation site osteomyelitis in this patient treated with vancomycin, transition to daptomycin because of the renal failure, now with slightly elevated CPK and the patient received about 4 weeks of IV antibiotic. We will discontinue the daptomycin. Continue with doxycycline. 2. Patient with pneumonia. Sputum has been negative so far on Zosyn. Transition to a course of oral antibiotic on discharge. MMODL / IJN: [id number] /
[2020-09-12 07:14] LABS: Glucose,Whole Blood 70 mg/dL (75-99)
[2020-09-12] MEDS: INSULIN ASPART (NovoLOG) 100 UNIT/ML VIAL SQ SCH ×4 (07:39→19:57)
[2020-09-12] MEDS: SYMBICORT 160-4.5 MCG INHALER INHALATION SCH ×2 (08:49→19:46)
[2020-09-12 08:56] LABS: Calcium 7.7 mg/dL (8.4-10.2); Potassium 3.1 mmol/L (3.5-5.1)
[2020-09-12] MEDS: METOPROLOL SUCCINATE (ER) 100 MG TAB.ER.24H PO SCH (09:39)
[2020-09-12] MEDS: ASPIRIN 81 MG PO SCH (09:39)
[2020-09-12] MEDS: FUROSEMIDE 80 MG TAB PO SCH ×2 (09:39→16:16)
[2020-09-12] MEDS: DULoxetine HCL 60 MG CAPSULE.DR PO SCH (09:40)
[2020-09-12] MEDS: CLOPIDOGREL 75 MG TAB PO SCH (09:40)
[2020-09-12] MEDS: APIXABAN 2.5 MG TABLET PO SCH ×2 (09:40→19:57)
[2020-09-12] MEDS: AMIODARONE 200 MG TAB PO SCH ×2 (09:40→19:57)
[2020-09-12] MEDS: SENNOSIDES-DOCUSATE SODIUM 1 EACH TAB PO SCH (09:40)
[2020-09-12] MEDS: DOXYCYCLINE 100 MG CAP PO SCH ×2 (09:41→19:57)
[2020-09-12] MEDS: INSULIN DETEMIR (LEVEMIR) 100 UNIT/ML SYR SQ SCH (09:42)
[2020-09-12] MEDS: PIPERACILLIN-TAZOBACTAM 3.375 GM in SODIUM CHLORIDE 0.9% 100 ML IVPB SCH ×3 (09:47→22:50)
[2020-09-12] MEDS ORDERED: Potassium Replacement Protocol 1 EACH MISC MISCELLANE PRN (09:49)
[2020-09-12] MEDS: POTASSIUM CHLORIDE ER 20 MEQ TAB.ER PO SCH ×2 (09:57→12:03)
--- NOTE | 2020-09-12 11:48 | P.PN ---
Subjective Progress Note Date: 09/12/20 HISTORY OF PRESENT ILLNESS: This is a 70-year-old female with a past medical history significant for coronary artery disease with previous CABG 4, hypertension, hyperlipidemia, congestive heart failure, peripheral vascular disease, and diabetes mellitus. Patient follows with a Dr. Brown out of [place]. We have been asked to see the patient in consultation for chest pain/stemi. Patient presented to the ER with chest pain. EKG was completed revealing ST elevation in inferior leads and STEMI alert was activated. Patient examined at the bedside in the emergency room. Patient states she began having chest pain yesterday that has progressively gotten worse. She states the pain is in the middle of her chest and in between her shoulder blades. She also reports shortness of breaht. She denies nausea or vomiting. EKG reveals sinus mechanism with ST elevation in inferior leads. ST depression in lateral leads. Chest xray not completed at the time of dictation Laboratory data: not available at time of dictation Current home cardiac medications include Norvasc 10 mg at night, Zocor 40 mg at night, metoprolol succinate 50 mg in the morning, losartan 50 mg daily, Lasix 20 mg daily, aspirin 81 mg daily 08/30/2020 Patient examined this morning at the bedside. She remains in the ICU. Patient underwent cardiac cath yesterday with PCI of the SVG to RCA. Patient denies chest pain or pressure. Denies shortness of breath. She reports nausea this morning and had emesis overnight. Blood pressure 117/63. Telemetry reveals sinus mechanism in the 70-80s. Right groin cath site clean dry with no hematoma noted. Echocardiogram completed revealed ejection fraction 40-45%, mid anteroseptal LV wall hypokinesis, apical septal wall hypokinesis, and mild mitral regurgitation. 08/31/2020 Patient examined this morning at the bedside. She remains in ICU, awaiting a bed on 3S. She denies chest pain or pressure. Denies shortness of breath. She states her nausea and abdominal pain have resolved. She complains of feeling very weak and tired. Blood pressure 122/62. Heart rate in the 80s. 09/01/2020 Patient examined this morning at the bedside. She remains in the intensive care unit. Patient developed some respiratory distress overnight and received a one- time dose of Lasix 40 mg IV. Patient states her breathing has improved this morning. Patient also went into afib with RVR overnight. Patient denies a history of afib. Her metoprolol was increased this morning as well. Vital signs stable. 09/05/2020 Patient examined this morning at the bedside. She remains in the ICU. She was scheduled for PARAM and cardioversion today however patient did convert to sinus mechanism yesterday. PARAM/CV was cancelled for today. She did have a few episodes of afib/flutter overnight per nursing and she converted to SR on her own. Patient this morning is on cardizem at 10mg/hr. Echocardiogram reveals ejection fraction 40-45%. She denies chest pain or pressure. 09/06/2020 Patient examined this morning at bedside. She remains in intensive care unit. Patient denies chest pain or pressure. She states her shortness of breath has improved since yesterday. She remains on Airvo. Telemetry reveals sinus mechanism. She is on IV amiodarone. Blood pressure 125/70. Heart rate in the 80s. 09/07/2020 Patient examined this morning in the intensive care unit. Patient is sitting up in the bed. She denies chest pain or pressure. She remains in sinus mechanism. She has been transitioned to oral amiodarone. She reports some shortness of breath but states it has improved since yesterday. 09/12/2020 Patient examined this morning on the selective care unit. Patient denies chest pain or pressure. She reports mild shortness of breath with exertion. She denies shortness of breath at rest. She states she was sitting up in the chair most of the day yesterday. She remains on nasal cannula with oxygen saturations greater than 92%. She is on oral lasix. Creatinine improved from 1.61 to 1.32 PHYSICAL EXAM: VITAL SIGNS: Reviewed. GENERAL: Well-developed in no acute distress. HEENT: Head is normocephalic. Pupils are equal, round. Sclerae anicteric. Mucous membranes of the mouth are moist. Neck supple. No JVD or thyromegaly LUNGS: Respirations even and unlabored. Lungs diminished bilaterally. HEART: Regular rate and rhythm. S1 and S2 heard. EXTREMITIES: Normal range of motion. No clubbing or cyanosis. Peripheral pulses intact. Trace bilateral lower extremity edema. ASSESSMENT: Acute inferior STEMI, s/p PCI of SVG to RCA Coronary artery disease with previous CABG x 2014 at [place] Peripheral vascular disease with previous right lower extremity stenting per patient New onset paroxysmal atrial fibrillation with RVR Acute on chronic systolic congestive heart failure, EF 40% Hypertension Hyperlipidemia Diabetes Mellitus COPD Acute kidney injury, improving PLAN: Continue anticoagulation with Eliquis Continue dual antiplatelet therapy with aspirin and plavix. Decrease amio to 200mg BID Continue additional cardiac medications Continue oral lasix. Monitor kidney function Encourage pulmonary toileting Continue telemetry monitoring Further recommendations pending patient course Nurse practitioner note has been reviewed by physician. Signing provider agrees with the documented findings, assessment, and plan of care. Objective - Vital Signs Vital signs: Vital Signs Temp 98.2 F 09/12/20 09:20 Pulse 75 09/12/20 09:20 Resp 18 09/12/20 09:20 BP 110/56 09/12/20 09:20 Pulse Ox 94 L 09/12/20 09:20 Intake & Output 09/11/20 09/12/20 09/12/20 18:59 06:59 18:59 Intake Total 240 480 Output Total 2 1 Balance 238 -1 480 Weight 95 kg Intake: Oral 240 480 Output: Stool 2 1 Other: Voiding Method Bedside Commode # Voids 2 1 1 # Bowel Movements 1 - Labs CBC & Chem 7: 09/11/20 08:08 09/12/20 08:11 Labs: Abnormal Lab Results - Last 24 Hours (Table) 09/11/20 09/11/20 09/11/20 Range/Units 11:46 16:21 20:11 Potassium (3.5-5.1) mmol/L Carbon Dioxide (22-30) mmol/L BUN (7-17) mg/dL Creatinine (0.52-1.04) mg/dL POC Glucose (mg/dL) 199 H 201 H 177 H (75-99) mg/dL Calcium (8.4-10.2) mg/dL 09/12/20 09/12/20 Range/Units 07:12 08:11 Potassium 3.1 L (3.5-5.1) mmol/L Carbon Dioxide 36 H (22-30) mmol/L BUN 38 H (7-17) mg/dL Creatinine 1.32 H (0.52-1.04) mg/dL POC Glucose (mg/dL) 70 L (75-99) mg/dL Calcium 7.7 L (8.4-10.2) mg/dL
[2020-09-12 11:53] LABS: Glucose,Whole Blood 88 mg/dL (75-99)
--- NOTE | 2020-09-12 12:57 | PN ---
PROGRESS NOTE Patient is seen for followup for acute kidney injury. Patient's renal function has improved. Serum creatinine continues to improve. It is down to 1.3 now from peak of 2.3. The patient has had good urine output. Her volume status has improved as well. PHYSICAL EXAMINATION: On examination today, blood pressure 110/56, heart rate 75 per minute. She is afebrile. Examination of the heart S1, S2. Examination of the lungs, bilateral breath sounds are heard. Abdomen is soft, nontender. Examination of lower extremities shows edema 2+ bilaterally. [employer] exam grossly intact. LAB: Show sodium 139, potassium 3.1, chloride 99, BUN 38, creatinine 1.32. ASSESSMENT: 1. Acute kidney injury acute tubular necrosis/cardiorenal currently improving. Continue to diurese patient. 2. Metabolic acidosis associated with acute kidney injury, now resolved. 3. Atrial fibrillation with RVR, controlled ventricular response currently. 4. Cardiomyopathy, ejection fraction 40% to 45%. 5. Chronic systolic congestive heart failure. 6. Acute myocardial infarction status post cardiac catheterization, coronary stent placement. PLAN: Continue with b.i.d. dosing of Lasix which was increased yesterday. MMODL / IJN: [id number] /
--- NOTE | 2020-09-12 13:53 | P.PN ---
Subjective Progress Note Date: 09/12/20 HISTORY OF PRESENT ILLNESS This is a 70-year-old female patient of Dr. Sanderson with past medical history of diabetes mellitus type 2, hypertension, hyperlipidemia, CVA in 2013 with no residuals, coronary artery disease status post 4 vessel CABG, bilateral carotid endarterectomies, mild intermittent asthma, osteomyelitis status post right great toe amputation 2014 and left toe amputation in June 2020 with revision on August [address] Gregory and patient was discharged home on August 12 with plan for IV vancomycin and oral Flagyl for 4 weeks, remote history of tobacco use area patient came in the hospital due to chest pain that started in the midsternal area and radiated to her left shoulder blade. She also had nausea which has continued. She denies having any epigastric pain. No blood in her stools. She came into the hospital for evaluation and was diagnosed with ST elevated myocardial infarction and was taken directly to the cardiac civil laboratory technician by Dr. Soto. Heart catheterization revealed occluded SVG to the RCA. Patient subsequently underwent PTCA with successful stenting of the SVG to RCA which was done by Dr. Plata. She then went to the intensive care unit where she is seen this morning. She states the chest pain is completely gone. She continues to have nausea. She states her cook roast is Dr. walsh at [place]. 90% on 2 L nasal cannula. Initial hemoglobin 0.6, white count 8.2, platelet count 239. INR 0.9. Electrolytes normal. BUN 33 and creatinine 1.51. Blood sugar initially 301. Blood sugar is now 170. Magnesium 1.9, total bilirubin 0.4, AST 206, ALT 25, alkaline phosphatase 30. Initial troponin 34.2. ProBNP 4600. Coronavirus PCR not detected. Echocardiogram reveals EF of 40-45%, moderate concentric left hypertrophy, mild aortic valve sclerosis, mild mitral regurgitation. 08/31: Remains in the intensive care unit by scheduled for transfer to the cardiac stepdown unit. She denies having any chest pain. She is on O2 normally has a home O2 at 3 L nasal cannula. She is complaining of some abdominal distention and Senokot will be added. Consult for Dr. Mccabe regarding left great toe wound. Patient is continued on IV vancomycin and oral Flagyl but is also on Bactrim from home. She has been afebrile, heart rate 83, blood pressure 109/49, pulse ox 91% on 3 L nasal cannula. Repeat blood work reveals creatinine of 1.8. Blood sugars are running between 113 187. Repeat blood work ordered for tomorrow. 09/01: Patient went into atrial fibrillation last evening now converted to sinus rhythm. Cardiology has started the patient on eliquis 2.5 mg twice daily and Toprol-XL increased to 75 mg daily. Brilinta changed to Plavix. Lasix is at 40 oral daily but yesterday patient had some hypoxia and was given Xanax and a dose of IV Lasix. She is currently prophylaxing 90% on 6 L nasal cannula. She has been afebrile, heart rate 84, blood pressure 104/73. Patient has been seen by Nae Mccabe with plan to continue vancomycin pharmacy to dose and Flagyl. Chest x- ray reveals reticulonodular infiltrates at the lung bases right greater than left. Correlate for pneumonia. Coronavirus PCR ordered and consult added for pulmonary medicine. Patient is afebrile, heart rate 84, blood pressure 104/73. Repeat blood work reveals WBC 10.3, hemoglobin 9.9, platelet count 255. Sodium 134, potassium 4.5, chloride 103, CO2 23, BUN 31 and creatinine 2.06. Blood sugar running between 101 and 233. Patient is scheduled to transfer to the cardiac stepdown unit. 09/02: She remains in intensive care unit waiting for bed on the cardiac stepdown unit. The patient has been seen by pulmonary medicine for chronic bronchial asthma and fluid overload, and pneumonia ruled out, plan to keep pulse ox between 88 and 92% at her baseline of 3 L nasal cannula. She is currently on 10 L nasal cannula at pulse ox of 90% to be weaned down today. Heart rate 115, afebrile, blood pressure 110/86. Patient received 2 doses of IV Lasix yesterday with improvement of her shortness of breath. Capillary blood glucose running between 107 and 149. Sodium 133, potassium 4.7, chloride 103, CO2 21, BUN 39 and creatinine 2.41. Probable calcitonin 0.34. Consult is in place with nephrology. Repeat chest x-ray reveals some improvement of the aeration left lung. Cardiomegaly and diffuse right lung reticulonodular opacities redemonstrated. 09/03: Patient is seen today in the intensive care unit still waiting for bed on the cardiac stepdown unit. She is sitting up in recliner and appears to have mild shortness of breath. She denies having shortness of breath. Heart rate is at 140s, machine rough rounder atrial fibrillation. Cardiology is following and is planning for a dose of IV Lopressor and if that is not successful, oral Cardizem. Patient has been seen by nephrology and recommended changing vancomycin to daptomycin. Repeat creatinine today is at 2.36. Blood sugars are running between 120 149. 09/04: Patient remains in the intensive care unit waiting for cardiac stepdown unit bed. She continues to have heart rate in the 140s, atrial fibrillation and cardiology has started her on Cardizem drip. There is tentative plan for electrocardioversion tomorrow. Patient denies any new complaints today. Pulse ox is running 90-92% on 6 L nasal cannula. She's been afebrile, blood pressure 104/50. Blood work today reveals sed rate of 126, C-reactive protein 19.5. BUN 15 creatinine 2.05. Blood sugars are running between 128 and 225. Potassium 4.4, CO2 15. Repeat chest x-ray reveals pulmonary venous hypertension and interstitial edema. Difficult to exclude small effusion. Nephrology started bicarb drip. Losartan and potassium are on hold. 09/05: Patient remains in the intensive care unit. Yesterday she developed worsening shortness of breath and pulmonary ordered extra IV Lasix, oxygen was switched over to high flow and she is currently on airflow. She has converted into a sinus rhythm and amiodarone was discontinued. She is currently on Lasix 60 mg IV every 12 hours, continued on bicarbonate drip per nephrology. Repeat chest x-ray reveals congestive heart failure, interstitial edema, may be small pleural effusion, cardiomegaly and postoperative changes. Pulse ox is 93%, afebrile, heart rate 75, respiratory rate 26, blood pressure 126/66. Repeat blood work reveals WBC 4.9, hemoglobin 9.3, platelet count 355. Sodium 132, potassium 4.4, chloride 103, CO2 17, BUN 15 creatinine 1.89. Blood sugars are running 205-315. CK is 174. Levemir will be increased to 20 units twice daily and scheduled NovoLog increased to 7 units with meals. Patient has a memorial service on Friday for her grandson and is hoping to be discharged by then so that she can attend. Cefepime has been added by Dr. Mccabe for pneumonia and patient is continued on daptomycin and oral Flagyl. 09/06: Patient remains in the intensive care unit, she is oxygenating poorly with AirVO but does not recognize this. She is very anxious to get better and be discharged for her grandson's Memorial. Discussed the need for patient to undress and manage her own health concerns as her primary focus. Amiodarone drip transitioned to oral amiodarone at 400 mg twice daily and metoprolol increased to 100 mg daily. She has been afebrile, heart rate 79, blood pressure 125/70, pulse ox 83% on FiO2 93, O2 flow rate 60. Repeat blood work reveals WBC 10.4, hemoglobin 9, platelet count 384. Sodium 133, potassium 3.6, chloride 101, CO2 24, BUN 16 creatinine 1.95. Blood sugars have been running between 188 and 329. Blood sugars are improving.. Blood cultures no growth at 24 hours. Chest x-ray reveals correlate for pneumonia versus edema and congestive heart failure. Stable cardiomegaly. Difficult to exclude pleural effusions. Patient is scheduled for CT chest today. She is continued on IV antibiotics with cefepime and daptomycin. 09/07: Patient remains in the intensive care unit patient is sitting up in bed. She still has had shortness of breath that seems to be more comfortable today. She is off AirVO and is on high flow nasal cannula 15 L with pulse ox running between 88-94%. She has been afebrile, heart rate in the 70s, respiratory rate 24, blood pressure 129/69. Patient remains in sinus rhythm. Repeat blood work reveals WBC 11.3, hemoglobin 9.4, platelet count 408. Electrolytes are normal. BUN 66 and creatinine 2.01. Blood sugars running between 150 and 227. Calcium 8.1. Liver function tests normal. CT of the chest from yesterday revealed patchy and confluent airspace disease throughout the right lung base and with a left lower lobe. Consolidation is more confluent at the lung bases. Small right and left pleural effusions. Correlate for multifocal pneumonia and exclude superimposed patchy pulmonary edema. Possible 1.9 cm left thyroid nodule. Nonemergent thyroid ultrasound recommended. Dr. Mccabe has changed antibiotics for pneumonia from cefepime to Zosyn and doxycycline. Regarding antibiotics, patient is currently on daptomycin, doxycycline, Zosyn. Hospital b ed will be ordered as patient requires out of the bed to be up and elevated 30 to alleviate dyspnea caused by COPD and fluid overload. Patient requires bedside commode because she is room confined due to significant hypoxic respiratory failure. This is a 70-year-old female patient of Dr. Sanderson with past medical history of diabetes mellitus type 2, hypertension, hyperlipidemia, CVA in 2013 with no residuals, coronary artery disease status post 4 vessel CABG, bilateral carotid endarterectomies, mild intermittent asthma, osteomyelitis status post right great toe amputation 2014 and left toe amputation in June 2020 with revision on August [address] Gregory and patient was discharged home on August 12 with plan for IV vancomycin and oral Flagyl for 4 weeks, remote history of tobacco use area patient came in the hospital due to chest pain that started in the midsternal area and radiated to her left shoulder blade. She also had nausea which has continued. She denies having any epigastric pain. No blood in her stools. She came into the hospital for evaluation and was diagnosed with ST elevated myocardial infarction and was taken directly to the cardiac civil laboratory technician by Dr. Soto. Heart catheterization revealed occluded SVG to the RCA. Patient subsequently underwent PTCA with successful stenting of the SVG to RCA which was done by Dr. Plata. She then went to the intensive care unit where she is seen this morning. She states the chest pain is completely gone. She continues to have nausea. She states her cook roast is Dr. walsh at [place]. 90% on 2 L nasal cannula. Initial hemoglobin 0.6, white count 8.2, platelet count 239. INR 0.9. Electrolytes normal. BUN 33 and creatinine 1.51. Blood sugar initially 301. Blood sugar is now 170. Magnesium 1.9, total bilirubin 0.4, AST 206, ALT 25, alkaline phosphatase 30. Initial troponin 34.2. ProBNP 4600. Coronavirus PCR not detected. Echocardiogram reveals EF of 40-45%, moderate concentric left hypertrophy, mild aortic valve sclerosis, mild mitral regurgitation. 09/07: Patient remains in the intensive care unit patient is sitting up in bed. She still has had shortness of breath that seems to be more comfortable today. She is off AirVO and is on high flow nasal cannula 15 L with pulse ox running between 88-94%. She has been afebrile, heart rate in the 70s, respiratory rate 24, blood pressure 129/69. Patient remains in sinus rhythm. Repeat blood work reveals WBC 11.3, hemoglobin 9.4, platelet count 408. Electrolytes are normal. BUN 66 and creatinine 2.01. Blood sugars running between 150 and 227. Calcium 8.1. Liver function tests normal. CT of the chest from yesterday revealed patchy and confluent airspace disease throughout the right lung base and with a left lower lobe. Consolidation is more confluent at the lung bases. Small right and left pleural effusions. Correlate for multifocal pneumonia and exclude superimposed patchy pulmonary edema. Possible 1.9 cm left thyroid nodule. Nonemergent thyroid ultrasound recommended. Dr. Mccabe has changed antibiotics for pneumonia from cefepime to Zosyn and doxycycline. Regarding antibiotics, patient is currently on daptomycin, doxycycline, Zosyn. Hospital bed will be ordered as patient requires out of the bed to be up and elevated 30 to alleviate dyspnea caused by COPD and fluid overload. Patient requires bedside commode because she is room confined due to significant hypoxic respiratory failure. 09/08: Patient was transferred out of the ICU she is down on oxygen to 10 L and seems to do well with it so far. She is not in any respiratory distress, pain is well controlled this point. Patient Cristobal lion has been under better control so far on amiodarone and still on anticoagulation with Eliquis. Remain on Lasix 60 mg IV twice a day and still on the current antibiotic between daptomycin and Zosyn. She will be continue on PTOT and try to be more aggressive with her this point. 09/09 Patient examined at bedside. Complains of poor appetite but denies any other si gnificant complaints denies any chest pain or shortness of breath. Patient continues to be on 11 L of oxygen. She also endorses nosebleeds that has been continuous since yesterday. Her diarrhea has improved since yesterday is currently 2-3 bowel movements. Labs are reviewed patient's blood sugar continues to be in the low 60s. NovoLog mealtime insulin was discontinued. With decrease in Levemir to 10 units twice a day. Continue diabetic diet at this point. Afrin spray ordered every 4-6 hours for nosebleeds plan to switch to oral diuretic therapy tomorrow. Cardiology and pulmonary recommendations are appreciated. Continue doxycycline daptomycin and Zosyn per infectious disease recommendation for possible pneumonia and osteomyelitis 09/10 patient examined bedside. Mostly has improved on Afrin spray. She continues to have shortness of breath is currently on 10 L of oxygen. At 8.3 pulse 77 respiratory rate 18 blood pressure 147/63 oxygenating at 92% on daily 2. Labs are reviewed patient's sodium 141 potassium 3.2 chloride 98 bicarb 35 BUN 53 creatinine 1.62. Continue Lasix and 60 IV twice a day. Patient continues to have good negative urine output with a balance of 2.2 L in the last 24 hours. Patient does have loose stools to bowel movements. Bili obtain a CBC tomorrow. And fecal occult blood ordered as the specimen appeared to be tarry in color. 09/11 patient examined bedside. She appears depressed and is dealing with some underlying stress with her family. Patient's vitals this morning suggests afebrile pulse 69 and was tolerating pressure 136/54 oxygen saturation remains at 90% on 10 L of oxygen. Labs were rechecked patient continues to have leukocytosis of 13, hemoglobin stable at 9.7 ESR 119 CRP 12.7 CK to 212 pro- calcitonin 0.12 improved from 0.64 glucose stays between 199 -282 . Lasix switch to 80 twice a day. Lantus switch to 15 twice a day. Patient continues to remain on daptomycin and Zosyn. Antibiotic recommendations per infectious d isvanessa. 09/12: Patient is now on 5 L nasal cannula and pulse ox is 95% at rest. Patient states the pulmonary medicine was in and clear her for discharge today. We have convince the patient to stay another day to be further monitored, increase ambulation and monitor pulse ox with activity. She is currently on antibiotics the form of Zosyn, daptomycin was discontinued and patient completed her 4 week course of antibiotics for left toe infection. Dr. Mccabe is planning for oral antibiotics at the time of discharge. And she is currently on Lasix 80 mg twice daily oral. Amiodarone has been decreased to 200 mg twice daily by cardiology. Repeat blood work reveals sodium 139, potassium 3.1, chloride 99, CO2 36, BUN 38 and creatinine 1.32. Blood sugars this morning 70 and insulin was decreased in the evening to 12 units Levemir. Patient convinced to stay another day, patient's nurse was updated, anticipate discharge possibly tomorrow. REVIEW OF SYSTEMS Constitutional: No fever, no chills, no night sweats. No weight change. No weakness, Reports fatigue. No daytime sleepiness. EENT: No headache. No blurred vision or double vision, no loss of vision. No loss of Hearing, no ringing in the ears, no dizziness. No nasal drainage or congestion. No epistaxis. No sore throat. Lungs: Reports shortness of breath improving, reports cough, no sputum production. Reports wheezing. Cardiovascular: No chest pain, reports lower extremity edema. Reports palpitat ions. No paroxysmal nocturnal dyspnea. No orthopnea. No lightheadedness or dizziness. No syncopal episodes. Abdominal: No abdominal pain. No nausea, vomiting. No diarrhea. reportstipation. No bloody or tarry stools.. No loss of appetite. Genitourinary: No dysuria, increased frequency, urgency. No urinary retention. Musculoskeletal: No myalgias. No muscle weakness, no gait dysfunction, no frequent falls. No back pain. No neck pain. Integumentary: Reports left great toe wounds, no lesions. No rash or pruritus. No unusual bruising. No change in hair or nails. Neurologic: No aphasia. No facial droop. No change in mentation. No head injury. No headache. No paralysis. No paresthesia. Psychiatric: No depression. No anxiety. No mood swings. Endocrine: Elevated blood sugars. PHYSICAL EXAMINATION Gen: This is a 70-year-old obese female. She is resting in chair and appears to be fairly comfortable. HEENT: Head is atraumatic, normocephalic. Pupils equal, round. Sclerae is anicteric. NECK: Supple. No JVD. No lymphadenopathy. No thyromegaly. LUNGS: Diminished breath sounds, bilateral crackles. No accessory muscle usage, no intercostal retractions while at rest. HEART: Regular rate and rhythm. No murmur. ABDOMEN: Soft. Bowel sounds are present. No masses. No tenderness. EXTREMITIES: Trace pedal edema. No calf tenderness. Right great toe amputation, left toe amputation. Dressing in place to the left toe amputation site. NEUROLOGICAL: Patient is awake, alert and oriented x3. Cranial nerves 2 through 12 are grossly intact. ASSESSMENT AND PLAN 1. Acute inferior ST elevated myocardial infarction status post heart catheterization and stenting of the SVG to RCA. Patient on cardiac stepdown unit. Continue aspirin 81 mg daily, Toprol XL 100 mg daily, Plavix 75 mg daily, atorvastatin 80 mg at bedtime. 2. Diabetic and peripheral vascular disease foot ulcer with osteomyelitis status post stump revision. Patient completed course of daptomycin. Consult with Dr. Mccabe appreciated. 3. Diabetes mellitus type 2, insulin requiring, uncontrolled with hyperglycemia. Continue Levemir 15 units in the morning and 12 units in the evening, NovoLog scale. 4. New onset atrial fibrillation with RVR, paroxysmal atrial fibrillation. Continue Toprol-XL 100 mg daily, amdecreased to 200g twice daily, eliquis 2.5 mg twice daily. Patient is in sinus rhythm. 5. Acute on chronic hypoxic respiratory failure secondary to acute systolic heart failure and pneumonia, possible gram-negative. COVID-19 testing negative. Pulmonary consult appreciated. Continue DuoNeb treatments 4 times daily as needed, Symbicort twice daily, oral Lasix 80 mg twice daily, monitor daily weights and I&O. Antibiotics are currently Zosyn. 6. Acute kidney injury with metabolic acidosis. Consult with nephrology renetta reciated. Losartan and potassium on hold. Continue current dose of Lasix. 7. Peripheral vascular disease with previous stenting of the right lower extremity. Patient regularly follows with Dr. Gregory. 8. Coronary artery disease with previous history of 4 vessel CABG. Patient's cook roast is Dr. Brown at [facility]. 9. Chronic systolic heart failure, stable. Continue as above. 10. COPD. Continue DuoNeb treatment, Symbicort, Singulair. 11. History of CVA, stable. 12. Hyperlipidemia. Continue atorvastatin 80 mg at bedtime 13. Hypertension. Continue Toprol-XL. 14. Recurrent depression. Continue Cymbalta 60 mg daily 15. Chronic hypoxic respiratory failure on home O2 at 3 L. 16. Mild intermittent asthma, stable. 17. COVID-19 testing negative. Patient has been hospitalized during a pandemic. DISCHARGE PLAN Home with [facility] tomorrow. Impression and plan of care have been directed as dictated by the signing physician. Emily Higginbotham nurse practitioner acting as scribe for signing physician. Objective - Vital Signs Vital signs: Vital Signs Temp 98.2 F 09/12/20 09:20 Pulse 75 09/12/20 09:20 Resp 18 09/12/20 09:20 BP 110/56 09/12/20 09:20 Pulse Ox 94 L 09/12/20 09:20 Intake & Output 09/11/20 09/12/20 09/12/20 18:59 06:59 18:59 Intake Total 240 480 Output Total 2 1 Balance 238 -1 480 Weight 95 kg Intake: Oral 240 480 Output: Stool 2 1 Other: Voiding Method Bedside Commode # Voids 2 1 1 # Bowel Movements 1 - Labs CBC & Chem 7: 09/11/20 08:08 09/12/20 08:11 Labs: Abnormal Lab Results - Last 24 Hours (Table) 09/11/20 09/11/20 09/11/20 Range/Units 11:46 16:21 20:11 Potassium (3.5-5.1) mmol/L Carbon Dioxide (22-30) mmol/L BUN (7-17) mg/dL Creatinine (0.52-1.04) mg/dL POC Glucose (mg/dL) 199 H 201 H 177 H (75-99) mg/dL Calcium (8.4-10.2) mg/dL 09/12/20 09/12/20 Range/Units 07:12 08:11 Potassium 3.1 L (3.5-5.1) mmol/L Carbon Dioxide 36 H (22-30) mmol/L BUN 38 H (7-17) mg/dL Creatinine 1.32 H (0.52-1.04) mg/dL POC Glucose (mg/dL) 70 L (75-99) mg/dL Calcium 7.7 L (8.4-10.2) mg/dL
--- NOTE | 2020-09-12 15:55 | P.PN ---
Subjective Progress Note Date: 09/12/20 Principal diagnosis: Shortness of breath 70-year-old female that typically sees Dr. Rojas for her chronic bronchial asthma. The patient came in to the wound center, for hyperbaric treatment, on August 29. Apparently that time, she was having shortness of breath, and chest pain. She was immediately sent to the emergency room. She was thought to have an ST segment elevation myocardial infarction, and with the catheterization laboratory and had stents placed. She's in the intensive care unit now. She is on 6 L nasal cannula. Normally she wears 2-3 L. Anyway, we are asked to see her because of the worsening shortness of breath, and to rule out pneumonia. The patient denies any fever or chills. The patient denies cough or phlegm production. Her chest x-ray lipase and shows borderline cardiomegaly and some interstitial changes and small effusions consistent with heart failure. In addition, her troponins were elevated, and her BMP was elevated as well. In my opinion, nothing really points towards pneumonia as an etiology of her worsening shortness of breath. In addition, it does not appear that her asthma is particularly active this time also. She's not wheezing, or having any chest tightness. The patient states that she was recently in the hospital 3 weeks ago with an episode of heart failure as well. Her medical history includes hypertension, CAD, hyperlipidemia, asthma, diabetes, and nonhealing ulcers of the lower extremities. The patient also has a history of CVA, rheumatoid arthritis, and previous amputations of the digits of the foot for nonhealing wounds. White count 10.3, hemoglobin 9.9, hematocrit 28.6, and platelet count 255,000. Sodium 134, potassium 4.5, chlorides 103, CO2 23, anion gap is 8, BUN 31, creatinine 2.06. N-terminal proBNP is 4600. Troponins were 34.2 and 59.7 respectively. Progress note dated 09/02/2020. 70-year-old female with a history of chronic bronchial asthma. The patient was admitted to the hospital via the emergency room, with ST segment elevation myocardial infarction. She had stents placed in the catheterization laboratory. She came to the intensive care unit for further monitoring and treatment. She was thought to possibly have pneumonia. We thought her problem was primarily heart failure. She responded very nicely to Lasix therapy. She is resting comfortably now. She is on high flow nasal O2 at 10 L. She's not receiving any IV fluids. Labs today include a sodium 133 potassium 4.7, chlorides 103, CO2 21, and anion gap of 9. BUN and creatinine were 39 and 2.41 respectively. Pro- calcitonin level was 0.34. Chest x-ray is improved. Progress note dated 09/03/2020. 70-year-old female again seen in the intensive care unit, room 258. She has a history of chronic bronchial asthma. She was admitted to the hospital through the emergency room, with ST segment elevation myocardial infarction. She had stents placed in the catheterization laboratory. She came back to the intensive care unit for further monitoring and treatment. She was thought to have pneumonia, for which we were consulted. We felt the problem was primarily CHF/heart failure. The patient has responded very nicely to Lasix therapy. Currently resting comfortably. She is on cefepime HEENT and daptomycin for a foot wound. She's not receiving any IV fluids. She is on 6 L nasal O2. Cardizem will be started for atrial fibrillation. She denies any chest pain. Currently, her glucose is 144 and her creatinine is 2.36. The x-rays from the and are reviewed. On 09/04/2020 patient seen in follow-up in the intensive care unit. She is awake and alert, oriented 3, she is currently on 6 L of oxygen her pulse ox is 90-92%, she is mildly short of breath with conversation, but appears to be in no acute respiratory distress. She remains in A. fib and the rate is tachycardic with a heart rate between 125-140 BPM, she is on Eliquis for 2.5 mg twice daily for anticoagulation and she is on Cardizem at 10 mg per hour. She's been afebrile, she is not requiring any vasopressor support, today's chest x-ray shows pulmonary venous hypertension and interstitial edema and a small pleural e ffusion on the right was difficult to exclude. Patient is on lactated Ringer's had a rate of 75 ML per hour, she's had no nausea vomiting or diarrhea. Patient remains on antibiotics with a combination of cefepime and daptomycin for recent history of osteomyelitis in her left big toe, status post recent amputation of the left great toe. ID service is following. The area of amputated toe is heal ing well. The incision is clean dry and intact, no drainage. These labs have been reviewed, ESR is elevated at 126, and CRP also remains elevated at 19.5. Sodium is 134, potassium is 4.4, CO2 is 15, BUN is 50, and creatinine is 2.05. Urology is following and recommended to switch to IV fluids from lactated Ringer's to bicarbonate infusion with D5W with 3 A of bicarbonate at a rate of 50 ML per hour. On 09/12/2020 patient seen in follow-up on selective care unit, she is currently on 7 L of oxygen pulse ox is 92-94%, FiO2 was further dropped down to 4 L, and then down to 3 L, and patient is maintaining O2 saturations above 90%, she is breathing comfortably, much less wheezy and dyspneic on today's exam, she is afebrile, respirations are nonlabored, she states her breathing has signific antly improved, no reports of cough, no reports of chest pain or phlegm production. Her last chest x-ray from 09/10/2020 showed improvement in patient's airspace disease, and aeration within bilateral lungs. Currently she remains on oral Lasix at 80 mg twice daily, she is on Eliquis 25 mg twice daily for history of A. fib, she is on Zosyn for antibiotic coverage, and her blood and sputum cultures have shown no growth. Today's labs have been reviewed, BNP was done, no CBC, sodium is 139, potassium is 3.5, chloride is 99, CO2 is 38, Cr 1.32. Pro-calcitonin level was negative at 0.12 on 09/10/2020. Objective - Vital Signs Vital signs: Vital Signs Temp 97.7 F 09/12/20 12:01 Pulse 65 09/12/20 12:01 Resp 20 09/12/20 12:01 BP 123/60 09/12/20 12:01 Pulse Ox 95 09/12/20 12:01 Intake & Output 09/11/20 09/12/20 09/12/20 18:59 06:59 18:59 Intake Total 240 720 Output Total 2 1 Balance 238 -1 720 Weight 95 kg Intake: Oral 240 720 Output: Stool 2 1 Other: Voiding Method Bedside Commode # Voids 2 1 1 # Bowel Movements 1 - Exam GENERAL EXAM: Alert, very pleasant, 70-year-old white female, on 3 L of oxygen the pulse ox of 92%, comfortable in no apparent distress. HEAD: Normocephalic/atraumatic. EYES: Normal reaction of pupils, equal size. Conjunctiva pink, sclera white. NOSE: Clear with pink turbinates. THROAT: No erythema or exudates. NECK: No masses, no JVD, no thyroid enlargement, no adenopathy. CHEST: No chest wall deformity. Symmetrical expansion. LUNGS: Equal air entry with mild expiratory wheezes CVS: Irregular rate and rhythm, normal S1 and S2, no gallops, no murmurs, no rubs ABDOMEN: Soft, nontender. No hepatosplenomegaly, normal bowel sounds, no guarding or rigidity. EXTREMITIES: No clubbing, no edema, no cyanosis, 2+ pulses and upper and lower extremities. MUSCULOSKELETAL: Muscle strength and tone normal. Patient has bilateral great toes amputated, incisions are clean dry and intact, well-healed SPINE: No scoliosis or deformity SKIN: No rashes CENTRAL NERVOUS SYSTEM: Alert and oriented -3. No focal deficits, tone is normal in all 4 extremities. PSYCHIATRIC: Alert and oriented -3. Appropriate affect. Intact judgment and insight. - Labs CBC & Chem 7: 09/11/20 08:08 09/12/20 14:00 Labs: Abnormal Lab Results - Last 24 Hours (Table) 09/11/20 09/11/20 09/12/20 Range/Units 16:21 20:11 07:12 Potassium (3.5-5.1) mmol/L Carbon Dioxide (22-30) mmol/L BUN (7-17) mg/dL Creatinine (0.52-1.04) mg/dL POC Glucose (mg/dL) 201 H 177 H 70 L (75-99) mg/dL Calcium (8.4-10.2) mg/dL 09/12/20 Range/Units 08:11 Potassium 3.1 L (3.5-5.1) mmol/L Carbon Dioxide 36 H (22-30) mmol/L BUN 38 H (7-17) mg/dL Creatinine 1.32 H (0.52-1.04) mg/dL POC Glucose (mg/dL) (75-99) mg/dL Calcium 7.7 L (8.4-10.2) mg/dL Assessment and Plan Plan: Assessment: #1. Acute inferior wall ST elevated myocardial infarction, status post heart catheterization and angioplasty of the SVG to the RCA #2. Acute exacerbation of chronic congestive heart failure. COVID-19 PCR was negative #3. A. fib with RVR #4. Acute kidney injury, improving #5. Chronic systolic CHF with ejection fraction of 40-45% #6. Metabolic acidosis related to RADHA, resolved #7. Recent history of left big toe amputation site related to osteomyelitis in June 2020, patient remains on daptomycin and cefepime, had been on vancomycin and oral Flagyl for 4 weeks prior to admission #8. Diabetes type 2 poorly controlled #9. History of chronic bronchial asthma, mild intermittent #10. Status post four-vessel bypass grafting #11. History of carotid artery disease with bilateral carotid endarterectomy #12. Previous history of right great toe amputation in 2014 #13. Peripheral vascular disease with previous stenting of the right lower extremity #14. History of CVA Plan: Continue weaning FiO2 to keep O2 sat at or above 90% Currently down to 3 L of oxygen Breathing comfortably No fever or chills Cultures are negative to date Continues on Zosyn, we discontinued the Solu-Medrol Continue breathing treatments Continue oral anticoagulation and rate control medications per cardiology Antibiotics per ID service recommendations From pulmonary perspective patient can be considered for discharge home once cl eared by cardiology and ID service Upon discharge no need for steroids, patient can resume DuoNeb nebulized treatments at home, she has albuterol inhaler, Pulmicort 1 mg twice a day nebulized treatment She will need outpatient follow-up with Dr. Mcqueen in the office in 7-10 days after discharge I performed a history & physical examination of the patient and discussed their management with my nurse practitioner, Debo Young. I reviewed the nurse practitioner's note and agree with the documented findings and plan of care. Lung sounds are positive for diminished breath sounds. The findings and the impression was discussed with the patient. I attest to the documentation by the nurse practitioner. Time with Patient: Less than 30
[2020-09-12 17:05] LABS: Glucose,Whole Blood 161 mg/dL (75-99)
[2020-09-12 19:50] LABS: Glucose,Whole Blood 74 mg/dL (75-99)
[2020-09-12] MEDS: ATORVASTATIN 80 MG TAB PO SCH (19:57)
[2020-09-12] MEDS: MONTELUKAST 10 MG TAB PO SCH (19:57)
[2020-09-12] MEDS ORDERED: INSULIN DETEMIR (LEVEMIR) 100 UNIT/ML SYR SQ SCH (21:00)
--- NOTE | 2020-09-13 01:50 | PN ---
PROGRESS NOTE DATE OF SERVICE: 09/12/2020 REASON FOR FOLLOWUP: 1. Left big toe amputation site osteomyelitis. 2. Pneumonia. INTERVAL HISTORY: The patient is afebrile. Patient is breathing comfortably. FiO2 is cut down to ( ). The patient denies having any chest pain. Did have a cough, not bringing up any sputum. No abdominal pain or pain to the left big toe. PHYSICAL EXAMINATION: Blood pressure is 115/52 with a pulse of 93, temperature 98.4. She is 92% on 6 L nasal cannula. General description is an elderly female up in the chair in no distress. Respiratory system: Unlabored breathing, decreased breath sounds, no wheeze. HEART: S1, S2. Regular rate and rhythm. ABDOMEN: Soft, no tenderness. LABS: BUN of 33, creatinine 1.32. Sputum has been negative. DIAGNOSTIC IMPRESSION AND PLAN: 1. Patient with left big toe amputation site osteomyelitis, completed her antibiotic therapy. Local care to continue with Aquacel dressing. 2. Patient with pneumonia on Zosyn. Transition to a short course of oral ( ) on discharge. Continue supportive care. MMODL / IJN: [id number] /
[2020-09-13 06:30] LABS: Glucose,Whole Blood 89 mg/dL (75-99)
[2020-09-13] MEDS: INSULIN ASPART (NovoLOG) 100 UNIT/ML VIAL SQ SCH ×2 (06:30→12:28)
[2020-09-13] MEDS ORDERED: INSULIN DETEMIR (LEVEMIR) 100 UNIT/ML SYR SQ SCH (07:00)
[2020-09-13] MEDS: FUROSEMIDE 80 MG TAB PO SCH (08:00)
[2020-09-13] MEDS: METOPROLOL SUCCINATE (ER) 100 MG TAB.ER.24H PO SCH (08:01)
[2020-09-13] MEDS: DOXYCYCLINE 100 MG CAP PO SCH (08:01)
[2020-09-13] MEDS: SENNOSIDES-DOCUSATE SODIUM 1 EACH TAB PO SCH (08:01)
[2020-09-13] MEDS: CLOPIDOGREL 75 MG TAB PO SCH (08:01)
[2020-09-13] MEDS: ASPIRIN 81 MG PO SCH (08:01)
[2020-09-13] MEDS: DULoxetine HCL 60 MG CAPSULE.DR PO SCH (08:01)
[2020-09-13] MEDS: AMIODARONE 200 MG TAB PO SCH (08:01)
[2020-09-13] MEDS: APIXABAN 2.5 MG TABLET PO SCH (08:01)
[2020-09-13] MEDS: PIPERACILLIN-TAZOBACTAM 3.375 GM in SODIUM CHLORIDE 0.9% 100 ML IVPB SCH (08:11)
[2020-09-13] MEDS: SYMBICORT 160-4.5 MCG INHALER INHALATION SCH (08:42)
[2020-09-13] MEDS: ALBUTEROL HFA INHALER INHALATION PRN (08:42)
[2020-09-13 10:24] VITALS: BMI 33.3
--- NOTE | 2020-09-13 10:33 | P.PN ---
Subjective Progress Note Date: 09/13/20 HISTORY OF PRESENT ILLNESS: This is a 70-year-old female with a past medical history significant for coronary artery disease with previous CABG 4, hypertension, hyperlipidemia, congestive heart failure, peripheral vascular disease, and diabetes mellitus. Patient follows with a Dr. Brown out of [facility]. We have been asked to see the patient in consultation for chest pain/stemi. Patient presented to the ER with chest pain. EKG was completed revealing ST elevation in inferior leads and STEMI alert was activated. Patient examined at the bedside in the emergency room. Patient states she began having chest pain yesterday that has progressively gotten worse. She states the pain is in the middle of her chest and in between her shoulder blades. She also reports shortness of breaht. She denies nausea or vomiting. EKG reveals sinus mechanism with ST elevation in inferior leads. ST depression in lateral leads. Chest xray not completed at the time of dictation Laboratory data: not available at time of dictation Current home cardiac medications include Norvasc 10 mg at night, Zocor 40 mg at night, metoprolol succinate 50 mg in the morning, losartan 50 mg daily, Lasix 20 mg daily, aspirin 81 mg daily 08/30/2020 Patient examined this morning at the bedside. She remains in the ICU. Patient underwent cardiac cath yesterday with PCI of the SVG to RCA. Patient denies chest pain or pressure. Denies shortness of breath. She reports nausea this morning and had emesis overnight. Blood pressure 117/63. Telemetry reveals sinus mechanism in the 70-80s. Right groin cath site clean dry with no hematoma noted. Echocardiogram completed revealed ejection fraction 40-45%, mid anteroseptal LV wall hypokinesis, apical septal wall hypokinesis, and mild mitral regurgitation. 08/31/2020 Patient examined this morning at the bedside. She remains in ICU, awaiting a bed on 3S. She denies chest pain or pressure. Denies shortness of breath. She states her nausea and abdominal pain have resolved. She complains of feeling very weak and tired. Blood pressure 122/62. Heart rate in the 80s. 09/01/2020 Patient examined this morning at the bedside. She remains in the intensive care unit. Patient developed some respiratory distress overnight and received a one- time dose of Lasix 40 mg IV. Patient states her breathing has improved this morning. Patient also went into afib with RVR overnight. Patient denies a history of afib. Her metoprolol was increased this morning as well. Vital signs stable. 09/05/2020 Patient examined this morning at the bedside. She remains in the ICU. She was scheduled for PARAM and cardioversion today however patient did convert to sinus mechanism yesterday. PAARM/CV was cancelled for today. She did have a few episodes of afib/flutter overnight per nursing and she converted to SR on her own. Patient this morning is on cardizem at 10mg/hr. Echocardiogram reveals ejection fraction 40-45%. She denies chest pain or pressure. 09/06/2020 Patient examined this morning at bedside. She remains in intensive care unit. Patient denies chest pain or pressure. She states her shortness of breath has improved since yesterday. She remains on Airvo. Telemetry reveals sinus mechanism. She is on IV amiodarone. Blood pressure 125/70. Heart rate in the 80s. 09/07/2020 Patient examined this morning in the intensive care unit. Patient is sitting up in the bed. She denies chest pain or pressure. She remains in sinus mechanism. She has been transitioned to oral amiodarone. She reports some shortness of breath but states it has improved since yesterday. 09/12/2020 Patient examined this morning on the selective care unit. Patient denies chest pain or pressure. She reports mild shortness of breath with exertion. She denies shortness of breath at rest. She states she was sitting up in the chair most of the day yesterday. She remains on nasal cannula with oxygen saturations greater than 92%. She is on oral lasix. Creatinine improved from 1.61 to 1.32 09/13/2020 Patient examined this morning at the bedside. She is sitting on the side of the bed. She denies chest pain or pressure. Denies shortness of breath. She is on 6L NC. She states she does wear oxygen at home. She states she ambulated in the hallway yesterday with nursing. Blood pressure 111/56. PHYSICAL EXAM: VITAL SIGNS: Reviewed. GENERAL: Well-developed in no acute distress. HEENT: Head is normocephalic. Pupils are equal, round. Sclerae anicteric. Mucous membranes of the mouth are moist. Neck supple. No JVD or thyromegaly LUNGS: Respirations even and unlabored. Lungs diminished bilaterally. HEART: Regular rate and rhythm. S1 and S2 heard. EXTREMITIES: Normal range of motion. No clubbing or cyanosis. Peripheral pulses intact. Trace bilateral lower extremity edema. ASSESSMENT: Acute inferior STEMI, s/p PCI of SVG to RCA Coronary artery disease with previous CABG x 2014 at [facility] Peripheral vascular disease with previous right lower extremity stenting per patient New onset paroxysmal atrial fibrillation with RVR Acute on chronic systolic congestive heart failure, EF 40% Hypertension Hyperlipidemia Diabetes Mellitus COPD Acute kidney injury, improving PLAN: Continue anticoagulation with Eliquis Continue dual antiplatelet therapy with aspirin and plavix. Continue additional cardiac medications Continue oral lasix. Monitor kidney function Continue telemetry monitoring Increase activity as tolerated Patient not discharged on MANUEL/ARB due to acute kidney injury. Will re-assess on an outpatient basis. 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 Patient to see Dr. Rondon in one week. Nurse practitioner note has been reviewed by physician. Signing provider agrees with the documented findings, assessment, and plan of care. Objective - Vital Signs Vital signs: Vital Signs Temp 98.1 F 09/13/20 07:58 Pulse 73 09/13/20 07:58 Resp 20 09/13/20 07:58 BP 111/56 09/13/20 07:58 Pulse Ox 94 L 09/13/20 08:42 Intake & Output 09/12/20 09/13/20 09/13/20 18:59 06:59 18:59 Intake Total 1200 110 240 Output Total 450 1300 Balance 750 -1190 240 Weight 90.7 kg 90.7 kg Intake: IV 110 0.9 Normal Saline @ KVO 10 Piperacillin-Tazobactam 3 100 .375 gm In Sodium Chloride 0.9% 100 ml @ 25 mls/hr IVPB Q8HR JAY Rx# :[id number] Oral 1200 240 Output: Urine 450 1300 Other: Voiding Method Bedside Commode Bedside Commode # Voids 1 1 # Bowel Movements 1 - Labs CBC & Chem 7: 09/11/20 08:08 09/12/20 14:00 Labs: Abnormal Lab Results - Last 24 Hours (Table) 09/12/20 09/12/20 Range/Units 17:04 19:48 POC Glucose (mg/dL) 161 H 74 L (75-99) mg/dL
--- NOTE | 2020-09-13 11:46 | P.DS ---
Providers Date of admission: 08/29/20 11:17 Expected date of discharge: 09/13/20 Attending physician: Mikel Delong Consults: 08/29/20 11:16 Consult Physician Stat Consulting Provider: Alex Soto Consult Reason/Comments: stemi Do you want consulting provider notified?: Already Contacted 08/29/20 12:47 Consult Physician Routine Consulting Provider: [facility] Consult Reason/Comments: Post Interventional patient Do you want consulting provider notified?: Already Contacted 08/31/20 09:23 Consult Physician Routine Consulting Provider: Singh Mccabe Consult Reason/Comments: OM left great toe Do you want consulting provider notified?: Yes 09/01/20 10:16 Consult Physician Routine Consulting Provider: Tyler Baig Consult Reason/Comments: pneumonia, s/p STEMI Do you want consulting provider notified?: Yes 09/01/20 11:23 Consult Physician Routine Consulting Provider: Lay Adan Consult Reason/Comments: RADHA Do you want consulting provider notified?: Yes Primary care physician: [facility] Course: HISTORY OF PRESENT ILLNESS This is a 70-year-old female patient of Dr. Sanderson with past me dical history of diabetes mellitus type 2, hypertension, hyperlipidemia, CVA in 2013 with no residuals, coronary artery disease status post 4 vessel CABG, bilateral carotid endarterectomies, mild intermittent asthma, osteomyelitis status post right great toe amputation 2014 and left toe amputation in June 2020 with revision on August [address] Gregory and patient was discharged home on August 12 with plan for IV vancomycin and oral Flagyl for 4 weeks, remote history of tobacco use area patient came in the hospital due to chest pain that started in the midsternal area and radiated to her left shoulder blade. She also had nausea which has continued. She denies having any epigastric pain. No blood in her stools. She came into the hospital for evaluation and was diagnosed with ST elevated myocardial infarction and was taken directly to the cardiac computer laboratory technician by Dr. Soto. Heart catheterization revealed occluded SVG to the RCA. Patient subsequently underwent PTCA with successful stenting of the SVG to RCA which was done by Dr. Plata. She then went to the intensive care unit where she is seen this morning. She states the chest pain is completely gone. She continues to have nausea. She states her fiber product cutting machine operator is Dr. walsh at [facility]. 90% on 2 L nasal cannula. Initial hemoglobin 0.6, white count 8.2, platelet count 239. INR 0.9. Electrolytes normal. BUN 33 and creatinine 1.51. Blood sugar initially 301. Blood sugar is now 170. Magnesium 1.9, total bilirubin 0.4, AST 206, ALT 25, alkaline phosphatase 30. Initial troponin 34.2. ProBNP 4600. Coronavirus PCR not detected. Echocardiogram reveals EF of 40-45%, moderate concentric left hypertrophy, mild aortic valve sclerosis, mild mitral regurgitation. 08/31: Remains in the intensive care unit by scheduled for transfer to the cardiac stepdown unit. She denies having any chest pain. She is on O2 normally has a home O2 at 3 L nasal cannula. She is complaining of some abdominal distention and Senokot will be added. Consult for Dr. Mccabe regarding left great toe wound. Patient is continued on IV vancomycin and oral Flagyl but is also on Bactrim from home. She has been afebrile, heart rate 83, blood pressure 109/49, pulse ox 91% on 3 L nasal cannula. Repeat blood work reveals creatinine of 1.8. Blood sugars are running between 113 187. Repeat blood work ordered for tomorrow. 09/01: Patient went into atrial fibrillation last evening now converted to sinus rhythm. Cardiology has started the patient on eliquis 2.5 mg twice daily and Toprol-XL increased to 75 mg daily. Brilinta changed to Plavix. Lasix is at 40 oral daily but yesterday patient had some hypoxia and was given Xanax and a dose of IV Lasix. She is currently prophylaxing 90% on 6 L nasal cannula. She has been afebrile, heart rate 84, blood pressure 104/73. Patient has been seen by Dr. Mccabe with plan to continue vancomycin pharmacy to dose and Flagyl. Chest x-ray reveals reticulonodular infiltrates at the lung bases right greater than left. Correlate for pneumonia. Coronavirus PCR ordered and consult added for pulmonary medicine. Patient is afebrile, heart rate 84, blood pressure 104/73. Repeat blood work reveals WBC 10.3, hemoglobin 9.9, platelet count 255. Sodium 134, potassium 4.5, chloride 103, CO2 23, BUN 31 and creatinine 2.06. Blood sugar running between 101 and 233. Patient is scheduled to transfer to the cardiac stepdown unit. 09/02: She remains in intensive care unit waiting for bed on the cardiac stepdown unit. The patient has been seen by pulmonary medicine for chronic bronchial asthma and fluid overload, and pneumonia ruled out, plan to keep pulse ox between 88 and 92% at her baseline of 3 L nasal cannula. She is currently on 10 L nasal cannula at pulse ox of 90% to be weaned down today. Heart rate 115, afebrile, blood pressure 110/86. Patient received 2 doses of IV Lasix yesterday with improvement of her shortness of breath. Capillary blood glucose running between 107 and 149. Sodium 133, potassium 4.7, chloride 103, CO2 21, BUN 39 and creatinine 2.41. Probable calcitonin 0.34. Consult is in place with nephrology. Repeat chest x-ray reveals some improvement of the aeration left lung. Cardiomegaly and diffuse right lung reticulonodular opacities redemonstrated. 09/03: Patient is seen today in the intensive care unit still waiting for bed on the cardiac stepdown unit. She is sitting up in recliner and appears to have mild shortness of breath. She denies having shortness of breath. Heart rate is at 140s, vice president lending atrial fibrillation. Cardiology is following and is planning for a dose of IV Lopressor and if that is not successful, oral Cardizem. Patient has been seen by nephrology and recommended changing vancomycin to daptomycin. Repeat creatinine today is at 2.36. Blood sugars are running between 120 149. 09/04: Patient remains in the intensive care unit waiting for cardiac stepdown unit bed. She continues to have heart rate in the 140s, atrial fibrillation and cardiology has started her on Cardizem drip. There is tentative plan for electrocardioversion tomorrow. Patient denies any new complaints today. Pulse ox is running 90-92% on 6 L nasal cannula. She's been afebrile, blood pressure 104/50. Blood work today reveals sed rate of 126, C-reactive protein 19.5. BUN 15 creatinine 2.05. Blood sugars are running between 128 and 225. Potassium 4.4, CO2 15. Repeat chest x-ray reveals pulmonary venous hypertension and interstitial edema. Difficult to exclude small effusion. Nephrology started bicarb drip. Losartan and potassium are on hold. 09/05: Patient remains in the intensive care unit. Yesterday she developed worsening shortness of breath and pulmonary ordered extra IV Lasix, oxygen was switched over to high flow and she is currently on airflow. She has converted into a sinus rhythm and amiodarone was discontinued. She is currently on Lasix 60 mg IV every 12 hours, continued on bicarbonate drip per nephrology. Repeat chest x-ray reveals congestive heart failure, interstitial edema, may be small pleural effusion, cardiomegaly and postoperative changes. Pulse ox is 93%, afebrile, heart rate 75, respiratory rate 26, blood pressure 126/66. Repeat blood work reveals WBC 4.9, hemoglobin 9.3, platelet count 355. Sodium 132, potassium 4.4, chloride 103, CO2 17, BUN 15 creatinine 1.89. Blood sugars are running 205-315. CK is 174. Levemir will be increased to 20 units twice daily and scheduled NovoLog increased to 7 units with meals. Patient has a memorial service on Friday for her grandson and is hoping to be discharged by then so that she can attend. Cefepime has been added by Dr. Mccabe for pneumonia and patient is continued on daptomycin and oral Flagyl. 09/06: Patient remains in the intensive care unit, she is oxygenating poorly with AirVO but does not recognize this. She is very anxious to get better and be discharged for her grandson's Memorial. Discussed the need for patient to undress and manage her own health concerns as her primary focus. Amiodarone drip transitioned to oral amiodarone at 400 mg twice daily and metoprolol increased to 100 mg daily. She has been afebrile, heart rate 79, blood pressure 125/70, pulse ox 83% on FiO2 93, O2 flow rate 60. Repeat blood work reveals WBC 10.4, hemoglobin 9, platelet count 384. Sodium 133, potassium 3.6, chloride 101, CO2 24, BUN 16 creatinine 1.95. Blood sugars have been running between 188 and 329. Blood sugars are improving.. Blood cultures no growth at 24 hours. Chest x-ray reveals correlate for pneumonia versus edema and congestive heart failure. Stable cardiomegaly. Difficult to exclude pleural effusions. Patient is scheduled for CT chest today. She is continued on IV antibiotics with cefepime and daptomycin. 09/07: Patient remains in the intensive care unit patient is sitting up in bed. She still has had shortness of breath that seems to be more comfortable today. She is off AirVO and is on high flow nasal cannula 15 L with pulse ox running between 88-94%. She has been afebrile, heart rate in the 70s, respiratory rate 24, blood pressure 129/69. Patient remains in sinus rhythm. Repeat blood work reveals WBC 11.3, hemoglobin 9.4, platelet count 408. Electrolytes are normal. BUN 66 and creatinine 2.01. Blood sugars running between 150 and 227. Calcium 8.1. Liver function tests normal. CT of the chest from yesterday revealed patchy and confluent airspace disease throughout the right lung base and with a left lower lobe. Consolidation is more confluent at the lung bases. Small right and left pleural effusions. Correlate for multifocal pneumonia and exclude superimposed patchy pulmonary edema. Possible 1.9 cm left thyroid nodule. Nonemergent thyroid ultrasound recommended. Dr. Mccabe has changed antibiotics for pneumonia from cefepime to Zosyn and doxycycline. Regarding an tibiotics, patient is currently on daptomycin, doxycycline, Zosyn. Hospital bed will be ordered as patient requires out of the bed to be up and elevated 30 to alleviate dyspnea caused by COPD and fluid overload. Patient requires bedside commode because she is room confined due to significant hypoxic respiratory failure. This is a 70-year-old female patient of Dr. Sanderson with past m edical history of diabetes mellitus type 2, hypertension, hyperlipidemia, CVA in 2013 with no residuals, coronary artery disease status post 4 vessel CABG, bilateral carotid endarterectomies, mild intermittent asthma, osteomyelitis status post right great toe amputation 2014 and left toe amputation in June 2020 with revision on August [address] Gregory and patient was discharged home on August 12 with plan for IV vancomycin and oral Flagyl for 4 weeks, remote history of tobacco use area patient came in the hospital due to chest pain that started in the midsternal area and radiated to her left shoulder blade. She also had nausea which has continued. She denies having any epigastric pain. No blood in her stools. She came into the hospital for evaluation and was diagnosed with ST elevated myocardial infarction and was taken directly to the cardiac computer laboratory technician by Dr. Soto. Heart catheterization revealed occluded SVG to the RCA. Patient subsequently underwent PTCA with successful stenting of the SVG to RCA which was done by Dr. Plata. She then went to the intensive care unit where she is seen this morning. She states the chest pain is completely gone. She continues to have nausea. She states her fiber product cutting machine operator is Dr. walsh at [facility]. 90% on 2 L nasal cannula. Initial hemoglobin 0.6, white count 8.2, platelet count 239. INR 0.9. Electrolytes normal. BUN 33 and creatinine 1.51. Blood sugar initially 301. Blood sugar is now 170. Magnesium 1.9, total bilirubin 0.4, AST 206, ALT 25, alkaline phosphatase 30. Initial troponin 34.2. ProBNP 4600. Coronavirus PCR not detected. Echocardiogram reveals EF of 40-45%, moderate concentric left hypertrophy, mild aortic valve sclerosis, mild mitral regurgitation. 09/07: Patient remains in the intensive care unit patient is sitting up in bed. She still has had shortness of breath that seems to be more comfortable today. She is off AirVO and is on high flow nasal cannula 15 L with pulse ox running between 88-94%. She has been afebrile, heart rate in the 70s, respiratory rate 24, blood pressure 129/69. Patient remains in sinus rhythm. Repeat blood work reveals WBC 11.3, hemoglobin 9.4, platelet count 408. Electrolytes are normal. BUN 66 and creatinine 2.01. Blood sugars running between 150 and 227. Calcium 8.1. Liver function tests normal. CT of the chest from yesterday revealed patchy and confluent airspace disease throughout the right lung base and with a left lower lobe. Consolidation is more confluent at the lung bases. Small right and left pleural effusions. Correlate for multifocal pneumonia and exclude superimposed patchy pulmonary edema. Possible 1.9 cm left thyroid nodule. Nonemergent thyroid ultrasound recommended. Dr. Mccabe has changed antibiotics for pneumonia from cefepime to Zosyn and doxycycline. Regarding antibiotics, patient is currently on daptomycin, doxycycline, Zosyn. Hospital bed will be ordered as patient requires out of the bed to be up and elevated 30 to alleviate dyspnea caused by COPD and fluid overload. Patient requires bedside commode because she is room confined due to significant hypoxic respiratory failure. 09/08: Patient was transferred out of the ICU she is down on oxygen to 10 L and seems to do well with it so far. She is not in any respiratory distress, pain is well controlled this point. Patient A. fib has been under better control so far on amiodarone and still on anticoagulation with Eliquis. Remain on Lasix 60 mg IV twice a day and still on the current antibiotic between daptomycin and Zosyn. She will be continue on PTOT and try to be more aggressive with her this point. 09/09 Patient examined at bedside. Complains of poor appetite but denies any other significant complaints denies any chest pain or shortness of breath. Patient continues to be on 11 L of oxygen. She also endorses nosebleeds that has been continuous since yesterday. Her diarrhea has improved since yesterday is currently 2-3 bowel movements. Labs are reviewed patient's blood sugar continues to be in the low 60s. NovoLog mealtime insulin was discontinued. With decrease in Levemir to 10 units twice a day. Continue diabetic diet at this point. Afrin spray ordered every 4-6 hours for nosebleeds plan to switch to oral diuretic therapy tomorrow. Cardiology and pulmonary recommendations are appreciated. Continue doxycycline daptomycin and Zosyn per infectious disease recommendation for possible pneumonia and osteomyelitis 09/10 patient examined bedside. Mostly has improved on Afrin spray. She continues to have shortness of breath is currently on 10 L of oxygen. At 8.3 pulse 77 respiratory rate 18 blood pressure 147/63 oxygenating at 92% on daily 2. Labs are reviewed patient's sodium 141 potassium 3.2 chloride 98 bicarb 35 BUN 53 creatinine 1.62. Continue Lasix and 60 IV twice a day. Patient continues to have good negative urine output with a balance of 2.2 L in the last 24 hours. Patient does have loose stools to bowel movements. Bili obtain a CBC tomorrow. And fecal occult blood ordered as the specimen appeared to be tarry in color. 09/11 patient examined bedside. She appears depressed and is dealing with some underlying stress with her family. Patient's vitals this morning suggests afebrile pulse 69 and was tolerating pressure 136/54 oxygen saturation remains at 90% on 10 L of oxygen. Labs were rechecked patient continues to have leukocytosis of 13, hemoglobin stable at 9.7 ESR 119 CRP 12.7 CK to 212 pro- calcitonin 0.12 improved from 0.64 glucose stays between 199 -282 . Lasix switch to 80 twice a day. Lantus switch to 15 twice a day. Patient continues to remain on daptomycin and Zosyn. Antibiotic recommendations per infectious disease. 09/12: Patient is now on 5 L nasal cannula and pulse ox is 95% at rest. Patient states the pulmonary medicine was in and clear her for discharge today. We have convince the patient to stay another day to be further monitored, increase ambulation and monitor pulse ox with activity. She is currently on antibiotics the form of Zosyn, daptomycin was discontinued and patient completed her 4 week course of antibiotics for left toe infection. Dr. Mccabe is planning for oral antibiotics at the time of discharge. And she is currently on Lasix 80 mg twice daily oral. Amiodarone has been decreased to 200 mg twice daily by cardiology. Repeat blood work reveals sodium 139, potassium 3.1, chloride 99, CO2 36, BUN 38 and creatinine 1.32. Blood sugars this morning 70 and insulin was decreased in the evening to 12 units Levemir. Patient convinced to stay another day, patient's nurse was updated, anticipate discharge possibly tomorrow. 09/13: Patient has been cleared for discharge by pulmonary medicine and [facility]. Dr. Mccabe has recommended a short course of oral antibiotics at discharge. Pulse ox is 92% on 5 L nasal cannula. She's been afebrile, heart rate 72, blood pressure 130/69. Blood sugars are running between 74 and 161. Patient feels that her breathing status is stable and thinks she will be able to manage at home. Walker has been ordered for the patient in order to perform ADLs. Patient will be discharged home today in stable condition. ASSESSMENT AND PLAN 1. Acute inferior ST elevated myocardial infarction status post heart catheterization and stenting of the SVG to RCA. 2. Diabetic and peripheral vascular disease foot ulcer with osteomyelitis status post stump revision. 3. Diabetes mellitus type 2, insulin requiring, uncontrolled with hyperglyc emia. 4. New onset atrial fibrillation with RVR, paroxysmal atrial fibrillation. 5. Acute on chronic hypoxic respiratory failure secondary to acute systolic heart failure and pneumonia, possible gram-negative. 6. Acute kidney injury with metabolic acidosis. 7. Peripheral vascular disease with previous stenting of the right lower extremity. 8. Coronary artery disease with previous history of 4 vessel CABG. 9. Chronic systolic heart failure, stable. 10. COPD. 11. History of CVA, stable. 12. Hyperlipidemia. 13. Hypertension. 14. Recurrent depression. 15. Chronic hypoxic respiratory failure on home O2 at 3 L. 16. Mild intermittent asthma, stable. 17. COVID-19 testing negative. Patient has been hospitalized during a pandemic. DISCHARGE PLAN Home with [facility] Impression and plan of care have been directed as dictated by the signing physician. Emily Higginbotham nurse practitioner acting as scribe for signing physician. Patient Condition at Discharge: Good Plan - Discharge Summary Discharge Rx Participant: Yes New Discharge Prescriptions: New Apixaban [Eliquis] 2.5 mg PO BID #60 tab Atorvastatin [Lipitor] 80 mg PO HS #90 tab Clopidogrel [Plavix] 75 mg PO DAILY #90 tab Amiodarone [Cordarone] 200 mg PO BID #180 tab Furosemide [Lasix] 80 mg PO BID@0900,1600 #180 tab Metoprolol Succinate (ER) [Toprol XL] 100 mg PO QAM #90 tab.er.24h Doxycycline Hyclate 100 mg PO BID 5 Days #10 tab Continue Nitroglycerin Sl Tabs [Nitrostat] 0.4 mg SL Q5M PRN PRN Reason: Chest Pain Aspirin 81 mg PO DAILY Abatacept [Orencia] 125 mg SQ WE Albuterol Sulfate [Proair Hfa] 2 puff INHALATION RT-Q4H PRN PRN Reason: Shortness Of Breath traMADol HCL 50 mg PO BID PRN PRN Reason: Pain Insulin Glargine,Hum.rec.anlog [Lantus Solostar] 15 unit SQ BID #0 Ipratropium-Albuterol Nebulize [Duoneb 0.5 mg-3 mg/3 ml Soln] 3 ml INHALATION RT-QID PRN PRN Reason: Shortness Of Breath Insulin Aspart [NovoLOG Flexpen] 12 units SQ AC-LUNCH Insulin Aspart [NovoLOG Flexpen] 10 units SQ AC-BID Potassium Chloride [Klor-Con 20] 20 meq PO DAILY Budesonide [Pulmicort] 1 mg INHALATION RT-BID PRN PRN Reason: Shortness Of Breath Montelukast Sodium [Singulair] 10 mg PO HS DULoxetine HCL [Cymbalta] 60 mg PO DAILY Cyclobenzaprine [Flexeril] 10 mg PO TID PRN PRN Reason: Muscle Spasm Discontinued Metoprolol Succinate [Toprol XL] 50 mg PO QAM amLODIPine [Norvasc] 10 mg PO HS Simvastatin [Zocor] 40 mg PO HS Losartan [Cozaar] 50 mg PO QAM Vancomycin 1,500 mg IVPB Q24HR #28 vial Sulfamethoxazole/Trimethoprim [Bactrim DS 800-160 mg] 1 tab PO BID metroNIDAZOLE [Flagyl] 500 mg PO TID #84 tab Furosemide [Lasix] 20 mg PO DAILY #1 tab Discharge Medication List Nitroglycerin Sl Tabs [Nitrostat] 0.4 mg SL Q5M PRN 05/02/15 [History] Aspirin 81 mg PO DAILY 04/15/17 [History] Abatacept [Orencia] 125 mg SQ WE 05/07/19 [History] Albuterol Sulfate [Proair Hfa] 2 puff INHALATION RT-Q4H PRN 06/16/20 [History] traMADol HCL 50 mg PO BID PRN 06/16/20 [History] Insulin Glargine,Hum.rec.anlog [Lantus Solostar] 15 unit SQ BID #0 06/26/20 [Rx] Budesonide [Pulmicort] 1 mg INHALATION RT-BID PRN 07/15/20 [History] Ipratropium-Albuterol Nebulize [Duoneb 0.5 mg-3 mg/3 ml Soln] 3 ml INHALATION RT-QID PRN 07/15/20 [History] Montelukast Sodium [Singulair] 10 mg PO HS 07/15/20 [History] Cyclobenzaprine [Flexeril] 10 mg PO TID PRN 08/29/20 [History] DULoxetine HCL [Cymbalta] 60 mg PO DAILY 08/29/20 [History] Insulin Aspart [NovoLOG Flexpen] 10 units SQ AC-BID 08/29/20 [History] Insulin Aspart [NovoLOG Flexpen] 12 units SQ AC-LUNCH 08/29/20 [History] Potassium Chloride [Klor-Con 20] 20 meq PO DAILY 08/29/20 [History] Apixaban [Eliquis] 2.5 mg PO BID #60 tab 09/01/20 [Rx] Amiodarone [Cordarone] 200 mg PO BID #180 tab 09/13/20 [Rx] Atorvastatin [Lipitor] 80 mg PO HS #90 tab 09/13/20 [Rx] Clopidogrel [Plavix] 75 mg PO DAILY #90 tab 09/13/20 [Rx] Doxycycline Hyclate 100 mg PO BID 5 Days #10 tab 09/13/20 [Rx] Furosemide [Lasix] 80 mg PO BID@0900,1600 #180 tab 09/13/20 [Rx] Metoprolol Succinate (ER) [Toprol XL] 100 mg PO QAM #90 tab.er.24h 09/13/20 [Rx] Follow up Appointment(s)/Referral(s): Marine Rojas MD [STAFF PHYSICIAN] - 09/27/20 9:30 am [facility],Equipment [NON-STAFF] - As Needed (Supplier of commode) [facility], [NON-STAFF] - 1-2 Days [facility],Infusion [NON-STAFF] - As Needed (Infusions will continue at home after discharge. ) Jacob Sanderson DO [Primary Care Provider] - 09/26/20 3:45 pm Alex Soto MD [STAFF PHYSICIAN] - 1 Week (office will call with follow up date and time) Patient Instructions/Handouts: Heart Attack (DC), Heart Healthy Diet (DC), COPD (Chronic Obstructive Pulmonary Disease) (DC) Discharge Disposition: HOME WITH HOME HEALTH SERVICES
[2020-09-13 11:51] LABS: Glucose,Whole Blood 153 mg/dL (75-99)
[2020-09-13 12:16] VITALS: BP 130/69; PULSE 72; RESP 18; TEMP 98
[2020-09-13] MEDS: ABATACEPT 125 MG/ML SQ SCH (12:33)
--- NOTE | 2020-09-13 15:25 | PN ---
PROGRESS NOTE Patient is seen for followup for acute kidney injury, currently doing well. She has been volume overloaded and patient is being diuresed. Lab from yesterday show serum creatinine 1.32 on 09/12/2020 which was decreased from peak of 2.3. Overall, patient denies any significant complaints today. PHYSICAL EXAMINATION: Blood pressure 130/69, heart rate 72 per minute, she is afebrile. Examination of the heart S1, S2. Examination of lungs, decreased breath sounds at bases. Abdomen is soft, nontender, obese. Examination of lower extremities shows left foot currently wrapped. LABS: Not available from today. ASSESSMENT: 1. Acute kidney injury, ATN, currently improved. 2. Chronic systolic congestive heart failure. 3. Cardiomyopathy, ejection fraction 40% to 45%. 4. Acute myocardial infarction status post cardiac catheterization and coronary stent placement. 5. Atrial fibrillation with controlled ventricular response. 6. Metabolic acidosis secondary to renal failure, now resolved. PLAN: Continue current dose of diuretics. Monitor volume status and labs as outpatient. MMODL / IJN: [id number] /
== END 2020-09-13 14:53 | disposition home health service (06) | DRG 246 ==
LOC: EC 10:42 → 2SICU 11:17 → 3SCARD 09-08 12:21
PROVIDERS: ADMIT Internal Medicine Geriatric Medicine; ATTEND Internal Medicine Geriatric Medicine
PROC: 027035Z Dilation of Coronary Artery, One Artery with Two Drug-eluting Intraluminal Devices, Percutaneous Approach (ICD-10-PCS; principal; 2020-08-29 15:50)
PROC: 02C03ZZ Extirpation of Matter from Coronary Artery, One Artery, Percutaneous Approach (ICD-10-PCS; principal; 2020-08-29 15:50)
PROC: B2181ZZ Fluoroscopy of Left Internal Mammary Bypass Graft using Low Osmolar Contrast (ICD-10-PCS; 2020-08-29 15:50)
PROC: B2131ZZ Fluoroscopy of Multiple Coronary Artery Bypass Grafts using Low Osmolar Contrast (ICD-10-PCS; 2020-08-29 15:50)
PROC: 4A023N7 Measurement of Cardiac Sampling and Pressure, Left Heart, Percutaneous Approach (ICD-10-PCS; 2020-08-29 15:50)
PROC: B2111ZZ Fluoroscopy of Multiple Coronary Arteries using Low Osmolar Contrast (ICD-10-PCS; 2020-08-29 15:50)
PROC: 5A0955A Assistance with Respiratory Ventilation, Greater than 96 Consecutive Hours, High Flow/Velocity Cannula (ICD-10-PCS; 2020-09-02)
PROC: 5A2204Z Restoration of Cardiac Rhythm, Single (ICD-10-PCS; 2020-09-05)
DX: I21.19 ST elevation (STEMI) myocardial infarction involving other coronary artery of inferior wall (principal); I50.23 Acute on chronic systolic (congestive) heart failure; J15.6 Pneumonia due to other Gram-negative bacteria; J96.21 Acute and chronic respiratory failure with hypoxia; N17.0 Acute kidney failure with tubular necrosis; T87.43 Infection of amputation stump, right lower extremity; E87.1 Hypo-osmolality and hyponatremia; E87.2 Acidosis; F33.9 Major depressive disorder, recurrent, unspecified; I13.0 Hypertensive heart and chronic kidney disease with heart failure and stage 1 through stage 4 chronic kidney disease, or unspecified chronic kidney disease; I25.810 Atherosclerosis of coronary artery bypass graft(s) without angina pectoris; I42.9 Cardiomyopathy, unspecified; I47.1 Supraventricular tachycardia; I48.19 Other persistent atrial fibrillation; I48.92 Unspecified atrial flutter; J44.0 Chronic obstructive pulmonary disease with (acute) lower respiratory infection; J44.1 Chronic obstructive pulmonary disease with (acute) exacerbation; L97.528 Non-pressure chronic ulcer of other part of left foot with other specified severity; M86.671 Other chronic osteomyelitis, right ankle and foot; D63.1 Anemia in chronic kidney disease; E11.22 Type 2 diabetes mellitus with diabetic chronic kidney disease; E11.51 Type 2 diabetes mellitus with diabetic peripheral angiopathy without gangrene; E11.621 Type 2 diabetes mellitus with foot ulcer; E11.65 Type 2 diabetes mellitus with hyperglycemia; Z09 Encounter for follow-up examination after completed treatment for conditions other than malignant neoplasm; E11.69 Type 2 diabetes mellitus with other specified complication; E78.5 Hyperlipidemia, unspecified; E87.6 Hypokalemia; I25.10 Atherosclerotic heart disease of native coronary artery without angina pectoris; Z66 Do not resuscitate; Z20.822 Contact with and (suspected) exposure to COVID-19; M06.9 Rheumatoid arthritis, unspecified; I08.0 Rheumatic disorders of both mitral and aortic valves; J45.20 Mild intermittent asthma, uncomplicated; L97.519 Non-pressure chronic ulcer of other part of right foot with unspecified severity; I48.0 Paroxysmal atrial fibrillation; Z79.4 Long term (current) use of insulin; N18.9 Chronic kidney disease, unspecified; R04.0 Epistaxis; T36.8X5A Adverse effect of other systemic antibiotics, initial encounter; T50.8X5A Adverse effect of diagnostic agents, initial encounter; I27.20 Pulmonary hypertension, unspecified; Z79.899 Other long term (current) drug therapy; Z79.82 Long term (current) use of aspirin; Z79.02 Long term (current) use of antithrombotics/antiplatelets; Z79.01 Long term (current) use of anticoagulants; Z80.1 Family history of malignant neoplasm of trachea, bronchus and lung; Z82.49 Family history of ischemic heart disease and other diseases of the circulatory system; Z83.3 Family history of diabetes mellitus; Z86.73 Personal history of transient ischemic attack (TIA), and cerebral infarction without residual deficits; Z87.891 Personal history of nicotine dependence; Z89.412 Acquired absence of left great toe
CPT/HCPCS: 36415; 71045; 71250; 80048; 80053; 80202; 82550; 82565; 82728; 83540; 83550; 83735; 83880; 84132; 84145; 84484; 85025; 85027; 85610; 85652; 85730; 86140; 87040; 87070; 87205; 87449; 87635; 93005; 93306; 93459; 94640; 94760; 96374; 99285

== ENCOUNTER 2020-10-13 15:42 | Emergency (ER) | payer MEDICARE, OTHER ==
[2020-10-13 15:46] VITALS: BP 163/67; PULSE 88; RESP 16; TEMP 98.2
--- NOTE | 2020-10-13 16:22 | ED ---
Extremity Problem HPI - General Chief complaint: Extremity Problem,Nontraumatic Stated complaint: toe turning black Time Seen by Provider: 10/13/20 15:52 Source: patient, RN notes reviewed Mode of arrival: ambulatory Limitations: no limitations - History of Present Illness Initial comments: 70-year-old female presented to urgency Department with chief complaint of left foot second digit turning black. Patient states that she's been followed by Dr. Guerra in the wound center. Patient was sent in here for evaluation as there was some discoloration. Denies any other complaints of fevers or chills. - Related Data Home Medications Medication Instructions Recorded Confirmed Nitroglycerin Sl Tabs [Nitrostat] 0.4 mg SL Q5M PRN 05/02/15 08/29/20 Aspirin 81 mg PO DAILY 04/15/17 08/29/20 Abatacept [Orencia] 125 mg SQ WE 05/07/19 08/29/20 Albuterol Sulfate [Proair Hfa] 2 puff INHALATION RT-Q4H PRN 06/16/20 08/29/20 traMADol HCL 50 mg PO BID PRN 06/16/20 08/29/20 Budesonide [Pulmicort] 1 mg INHALATION RT-BID PRN 07/15/20 08/29/20 Ipratropium-Albuterol Nebulize 3 ml INHALATION RT-QID PRN 07/15/20 08/29/20 [Duoneb 0.5 mg-3 mg/3 ml Soln] Montelukast Sodium [Singulair] 10 mg PO HS 07/15/20 08/29/20 Cyclobenzaprine [Flexeril] 10 mg PO TID PRN 08/29/20 08/29/20 DULoxetine HCL [Cymbalta] 60 mg PO DAILY 08/29/20 08/29/20 Insulin Aspart [NovoLOG Flexpen] 10 units SQ AC-BID 08/29/20 08/29/20 Insulin Aspart [NovoLOG Flexpen] 12 units SQ AC-LUNCH 08/29/20 08/29/20 Potassium Chloride [Klor-Con 20] 20 meq PO DAILY 08/29/20 08/29/20 Previous Rx's Medication Instructions Recorded Insulin Glargine,Hum.rec.anlog 15 unit SQ BID #0 06/26/20 [Lantus Solostar] Apixaban [Eliquis] 2.5 mg PO BID #60 tab 09/01/20 Amiodarone [Cordarone] 200 mg PO BID #180 tab 09/13/20 Atorvastatin [Lipitor] 80 mg PO HS #90 tab 09/13/20 Clopidogrel [Plavix] 75 mg PO DAILY #90 tab 09/13/20 Doxycycline Hyclate 100 mg PO BID 5 Days #10 tab 09/13/20 Furosemide [Lasix] 80 mg PO BID@0900,1600 #180 tab 09/13/20 Metoprolol Succinate (ER) [Toprol 100 mg PO QAM #90 tab.er.24h 09/13/20 XL] Allergies Allergy/AdvReac Type Severity Reaction Status Date / Time nickel Allergy Rash/Hives Verified 10/13/20 15:42 Review of Systems ROS Statement: Those systems with pertinent positive or pertinent negative responses have been documented in the HPI. ROS Other: All systems not noted in ROS Statement are negative. Past Medical History Past Medical History: Asthma, Coronary Artery Disease (CAD), Heart Failure, COPD, CVA/TIA, Diabetes Mellitus, Hyperlipidemia, Hypertension, Pneumonia, Rheumatoid Arthritis (RA) Additional Past Medical History / Comment(s): left GREAT TOE WOUND, with current dressing, partial amputation on 06/28/20. going to hyperbaric chamber 5 days a week, PICC line right arm Last Myocardial Infarction Date:: 2014 History of Any Multi-Drug Resistant Organisms: None Reported Past Surgical History: Adenoidectomy, Appendectomy, Coronary Bypass/CABG, Heart Catheterization, Tonsillectomy, Tubal Ligation Additional Past Surgical History / Comment(s): Open heart on April 13 2015, cabg X4, bilateral carotid endarterectomies,. Right great toe amputation 2014. stent in right leg above knee, elke cataracts. left toe ambutation, 06/18/20 Past Anesthesia/Blood Transfusion Reactions: Previous Problems w/ Anesthesia Additional Past Anesthesia/Blood Transfusion Reaction / Comment(s): diff breathing afterwards Past Psychological History: No Psychological Hx Reported Smoking Status: Former smoker Past Alcohol Use History: None Reported Past Drug Use History: None Reported - Past Family History Father Family Medical History: Coronary Artery Disease (CAD), CVA/TIA, Diabetes Mellitus Mother Additional Family Medical History / Comment(s): "spot on the lung" General Exam Limitations: no limitations General appearance: alert, in no apparent distress Respiratory exam: Present: normal lung sounds bilaterally. Absent: respiratory distress, wheezes, rales, rhonchi, stridor Cardiovascular Exam: Present: regular rate, normal rhythm, normal heart sounds. Absent: systolic murmur, diastolic murmur, rubs, gallop, clicks Extremities exam: Present: other (Left foot there is a first digit amputation, h ealing, second digit there is some mild necrosis noted, nontender.) Course Vital Signs 10/13/20 15:43 Temperature 98.2 F Pulse Rate 88 Respiratory 16 Rate Blood Pressure 163/67 O2 Sat by Pulse 98 Oximetry Medical Decision Making - Medical Decision Making I did contact Dr. Gregory who came personally evaluate the patient advised the patient that she may be seen in his office on Friday at 10 AM he will review her angiogram that was performed there is no signs of infection and there is no further need for treatment at this time. Disposition Clinical Impression: Peripheral vascular disease Disposition: HOME SELF-CARE Condition: Stable Instructions (If sedation given, give patient instructions): Peripheral Vascular Disease (ED) Additional Instructions: Follow-up with Dr. Gregory at 10 AM on Friday.Please return to the Emergency Department if symptoms worsen or any other concerns. Is patient prescribed a controlled substance at d/c from ED?: No Referrals: Jacob Sanderson DO [Primary Care Provider] - 1-2 days Rustam Gregory MD [STAFF PHYSICIAN] - 1-2 days Time of Disposition: 16:22
== END 2020-10-13 16:30 | disposition home or self-care (01) ==
LOC: EC 15:42
DX: E11.51 Type 2 diabetes mellitus with diabetic peripheral angiopathy without gangrene (principal); E11.36 Type 2 diabetes mellitus with diabetic cataract; I11.0 Hypertensive heart disease with heart failure; I50.9 Heart failure, unspecified; I25.10 Atherosclerotic heart disease of native coronary artery without angina pectoris; E78.5 Hyperlipidemia, unspecified; I25.2 Old myocardial infarction; J44.9 Chronic obstructive pulmonary disease, unspecified; M06.9 Rheumatoid arthritis, unspecified; Z79.01 Long term (current) use of anticoagulants; Z79.02 Long term (current) use of antithrombotics/antiplatelets; Z79.4 Long term (current) use of insulin; Z79.51 Long term (current) use of inhaled steroids; Z79.82 Long term (current) use of aspirin; Z79.899 Other long term (current) drug therapy; Z82.49 Family history of ischemic heart disease and other diseases of the circulatory system; Z83.3 Family history of diabetes mellitus; Z86.73 Personal history of transient ischemic attack (TIA), and cerebral infarction without residual deficits; Z87.891 Personal history of nicotine dependence; Z95.1 Presence of aortocoronary bypass graft
CPT/HCPCS: 99283

== ENCOUNTER → 2020-11-10 | Outpatient (CLI) | payer MEDICARE, OTHER ==
[2020-11-10 18:38] LABS: Basophils # (A) 0.04 X 10*3/uL (0.00-0.10); Basophils % (A) 0.8 %; Eosinophils # (A) 0.28 X 10*3/uL (0.04-0.35); Eosinophils % (A) 5.5 %; HCT 33.5 % (37.2-46.3); HGB 9.8 g/dL (12.0-15.0); Lymphocytes # (A) 2.29 X 10*3/uL (0.90-5.00); Lymphocytes % (A) 45.1 %; MCH 28.3 pg (27.0-32.0); MCHC 29.3 g/dL (32.0-37.0); MCV 96.8 fL (80.0-97.0); Mean Platelet Volume 11.2 fL (9.5-12.2); Monocytes # (A) 0.59 X 10*3/uL (0.20-1.00); Monocytes % (A) 11.6 %; Neutrophils # (A) 1.86 X 10*3/uL (1.80-7.70); Neutrophils % (A) 36.6 %; Platelet Count 268 X 10*3/uL (140-440); RBC 3.46 X 10*6/uL (4.10-5.20); RDW 15.8 % (11.5-14.5); WBC 5.08 X 10*3/uL (4.50-10.00)
[2020-11-11 02:35] LABS: African American GFR (CKD) 43.7 (60.0-200.0); Anion Gap 14.9 mmol/L (4.00-12.00); BUN/Creat Ratio 21.43 Ratio (12.00-20.00); Calcium 8.8 mg/dL (8.7-10.3); Carbon Dioxide 19.1 mmol/L (21.6-31.8); Non-African American GFR(CKD) 37.7 (60.0-200.0); Potassium 5.5 mmol/L (3.5-5.5)
== END | disposition home or self-care (01) ==
LOC: LABWHC1 12:34
PROVIDERS: ATTEND Surgery Vascular Surgery
DX: Z01.812 Encounter for preprocedural laboratory examination (principal)
CPT/HCPCS: 36415; 80048; 85025

== ENCOUNTER 2021-02-16 13:46 | Inpatient (IN) | payer MEDICARE, OTHER ==
--- NOTE | 2021-02-16 16:34 | ED ---
General Adult HPI - General Chief complaint: Wound/Laceration Stated complaint: Foot infection, sent by DR Campos Seen by Provider: 02/16/21 16:08 Source: patient, RN notes reviewed, old records reviewed Mode of arrival: ambulatory Limitations: no limitations - History of Present Illness Initial comments: This is a well-appearing 71-year-old female that presents to the emergency room with complaint of left foot diabetic ulcer that is not healing. Patient has been on antibiotics for several months. Patient states that the wound was outlined with black marker and it has been decreasing in size She was recently changed to Bactrim for the past 2 days. She is also been at the wound care clinic this week. She continues to have redness and drainage. She states that her primary care Dr Sanderson has asked her to return to the emergency room for admission and a PICC line and IV antibiotics. She states that she did get a Covid vaccine. She has a history of CAD, COPD, heart failure, diabetes. -: month(s) Location: left, lower extremity (lateral foot) Radiation: non-radiation Severity scale (1-10): 7 Quality: aching, other (sore) Improves with: none Worsens with: other (palpation) Associated Symptoms: denies other symptoms Treatments Prior to Arrival: other (bactrim for 2 days, wound care) - Related Data Home Medications Medication Instructions Recorded Confirmed Nitroglycerin Sl Tabs [Nitrostat] 0.4 mg SL Q5M PRN 05/02/15 02/16/21 Abatacept [Orencia] 125 mg SQ WE 05/07/19 02/16/21 Albuterol Sulfate [Proair Hfa] 2 puff INHALATION RT-Q6H PRN 06/16/20 02/16/21 traMADol HCL 50 mg PO BID PRN 06/16/20 02/16/21 Montelukast Sodium [Singulair] 10 mg PO HS 07/15/20 02/16/21 Cyclobenzaprine [Flexeril] 10 mg PO TID PRN 08/29/20 02/16/21 DULoxetine HCL [Cymbalta] 60 mg PO DAILY 08/29/20 02/16/21 Insulin Aspart [NovoLOG Flexpen] 16 units SQ AC-BID 08/29/20 02/16/21 ALPRAZolam [Xanax] 0.25 mg PO DAILY PRN 02/16/21 02/16/21 Amiodarone [Cordarone] 200 mg PO DAILY 02/16/21 02/16/21 Ferrous Sulfate [Feosol] 325 mg PO DAILY 02/16/21 02/16/21 HYDROcodone/APAP 10-325MG [[place] 1 tab PO TID PRN 02/16/21 02/16/21 10-325] LORazepam [Ativan] 0.5 mg PO DAILY PRN 02/16/21 02/16/21 Metoprolol Succinate (ER) [Toprol 100 mg PO DAILY 02/16/21 02/16/21 XL] Sulfamethox-Tmp 800-160Mg [Bactrim 1 tab PO Q12HR 02/16/21 02/16/21 DS 800-160 mg] Previous Rx's Medication Instructions Recorded Insulin Glargine,Hum.rec.anlog 15 unit SQ BID #0 06/26/20 [Lantus Solostar Pen] Atorvastatin [Lipitor] 80 mg PO HS #90 tab 09/13/20 Allergies Allergy/AdvReac Type Severity Reaction Status Date / Time nickel Allergy Rash/Hives Verified 02/16/21 17:39 Review of Systems ROS Statement: Those systems with pertinent positive or pertinent negative responses have been documented in the HPI. ROS Other: All systems not noted in ROS Statement are negative. Past Medical History Past Medical History: Asthma, Coronary Artery Disease (CAD), Heart Failure, COPD, CVA/TIA, Diabetes Mellitus, Hyperlipidemia, Hypertension, Pneumonia, Rheumatoid Arthritis (RA) Additional Past Medical History / Comment(s): left GREAT TOE WOUND, with current dressing, partial amputation on 06/28/20. going to hyperbaric chamber 5 days a week, PICC line right arm Last Myocardial Infarction Date:: 2014 History of Any Multi-Drug Resistant Organisms: None Reported Past Surgical History: Adenoidectomy, Appendectomy, Coronary Bypass/CABG, Heart Catheterization, Tonsillectomy, Tubal Ligation Additional Past Surgical History / Comment(s): Open heart on April 13 2015, cabg X4, bilateral carotid endarterectomies,. Right great toe amputation 2014. stent in right leg above knee, elke cataracts. left toe ambutation, 06/18/20 Past Anesthesia/Blood Transfusion Reactions: Previous Problems w/ Anesthesia Additional Past Anesthesia/Blood Transfusion Reaction / Comment(s): diff breathing afterwards Past Psychological History: No Psychological Hx Reported Smoking Status: Former smoker Past Alcohol Use History: None Reported Past Drug Use History: None Reported - Past Family History Father Family Medical History: Coronary Artery Disease (CAD), CVA/TIA, Diabetes Mellitus Mother Additional Family Medical History / Comment(s): "spot on the lung" General Exam - General Exam Comments Initial Comments: This is a well-appearing 71-year-old female that presents to the emergency room with complaint of left foot diabetic ulcer that is not healing. Patient has been on antibiotics for several months. Patient states that the wound was outlined with black marker and it has been decreasing in size She was recently changed to Bactrim for the past 2 days. She is also been at the wound care clinic. She continues to have redness and drainage. She states that her primary care doctor Kin has asked her to return to the emergency room for admission and a PICC line and IV antibiotics. She states that she did get a Covid vaccine. She has a history of urinary artery disease, COPD, heart failure, diabetes. Limitations: no limitations General appearance: alert, in no apparent distress Head exam: Present: atraumatic, normocephalic, normal inspection Eye exam: Present: normal appearance, PERRL, EOMI. Absent: scleral icterus, conjunctival injection, periorbital swelling ENT exam: Present: normal exam, normal oropharynx, mucous membranes moist Neck exam: Present: normal inspection, full ROM. Absent: tenderness, mening ismus, lymphadenopathy, thyromegaly Respiratory exam: Present: normal lung sounds bilaterally. Absent: respiratory distress, wheezes, rales, rhonchi, stridor Cardiovascular Exam: Present: regular rate, normal rhythm, normal heart sounds. Absent: systolic murmur, diastolic murmur, rubs, gallop, clicks GI/Abdominal exam: Present: soft, normal bowel sounds. Absent: distended, tenderness, guarding, rebound, rigid Back exam: Present: normal inspection, full ROM. Absent: tenderness, CVA tenderness (R), CVA tenderness (L), vertebral tenderness, rash noted Neurological exam: Present: alert, oriented X3 Psychiatric exam: Present: normal affect, normal mood Skin exam: Present: warm, dry, normal color, erythema (Left lateral foot approximately 2 cm x 1 cm of peeling skin. There is a purulent area drainage approximately 5 mm). Absent: rash Course Vital Signs 02/16/21 15:51 Temperature 97.9 F Pulse Rate 75 Respiratory 18 Rate Blood Pressure 130/71 O2 Sat by Pulse 98 Oximetry Medical Decision Making - Medical Decision Making Patient was sent by Dr. Overton for admission. She states that she has a diabetic foot ulcer that has not been getting better with oral antibiotics. She states that the ulcer has been getting better and the redness has decreased. She denies any fevers. She was offered pain medication and she declined at this time. There is no evidence of leukocytosis. Her coronavirus swab is negative. She will be started on Unasyn 3 g and vancomycin. Case was discussed with Dr. Rosado. - Lab Data Result diagrams: 02/16/21 17:21 02/16/21 17:21 Disposition Clinical Impression: Diabetic foot ulcer Disposition: ADMITTED IP TO THIS [facility] Decision Date: 02/16/21 Decision Time: 17:16
[2021-02-16] MEDS ORDERED: LIDOCAINE 1% INJ 10MG/ML (20 ML MDV) SQ ONE (17:03)
[2021-02-16] MEDS ORDERED: BUPIVACAINE (PF) 0.5% 30 ML VIAL SQ STA (17:05)
[2021-02-16] MEDS ORDERED: VANCOMYCIN IV PER PHARMACY 1 EACH MISC MISCELLANE PRN (17:15)
[2021-02-16] MEDS ORDERED: AMPICILLIN-SULBACTAM 3 GM in SODIUM CHLORIDE 0.9% 100 ML IVPB STA (17:16)
[2021-02-16] MEDS ORDERED: NALOXONE 0.4 MG/ML 1 ML VIAL IV PRN (17:16)
[2021-02-16] MEDS ORDERED: VANCOMYCIN 1,500 MG in SODIUM CHLORIDE 0.9% 250 ML IVPB STA (17:17)
[2021-02-16 17:53] LABS: Anisocytosis Slight; Basophils % (A) 1 %; Eosinophils # (A) 0.1 k/uL (0-0.7); Eosinophils % (A) 3 %; HCT 45.1 % (34.0-46.0); HGB 14.2 gm/dL (11.4-16.0); Lymphocytes # (A) 1.7 k/uL (1.0-4.8); Lymphocytes % (A) 36 %; MCH 26.3 pg (25.0-35.0); MCHC 31.6 g/dL (31.0-37.0); MCV 83.3 fL (80.0-100.0); Mean Platelet Volume 7.5; Monocytes # (A) 0.4 k/uL (0-1.0); Monocytes % (A) 9 %; Neutrophils # (A) 2.3 k/uL (1.3-7.7); Neutrophils % (A) 49 %; Platelet Count 208 k/uL (150-450); RBC 5.41 m/uL (3.80-5.40); RDW 17.5 % (11.5-15.5); WBC 4.7 k/uL (3.8-10.6)
[2021-02-16 17:58] LABS: Albumin 3.7 g/dL (3.5-5.0); Total Bilirubin 0.5 mg/dL (0.2-1.3); Total Protein 7.7 g/dL (6.3-8.2)
[2021-02-16 18:02] LABS: Potassium 4.8 mmol/L (3.5-5.1)
[2021-02-16 21:07] LABS: Glucose,Whole Blood 116 mg/dL (75-99)
[2021-02-16] MEDS ORDERED: CYCLOBENZAPRINE 10 MG TAB PO PRN (21:55)
[2021-02-16] MEDS ORDERED: ALBUTEROL NEBULIZED 2.5 MG/3 ML INHALATION PRN (21:55)
[2021-02-16] MEDS ORDERED: LORazepam 0.5 MG TAB PO PRN (21:55)
[2021-02-17 07:15] LABS: Anisocytosis Slight; HCT 43.2 % (34.0-46.0); HGB 13.1 gm/dL (11.4-16.0); Hypochromasia Moderate; MCH 26.2 pg (25.0-35.0); MCHC 30.3 g/dL (31.0-37.0); MCV 86.5 fL (80.0-100.0); Mean Platelet Volume 7.4; Platelet Count 214 k/uL (150-450); RDW 17.4 % (11.5-15.5); WBC 4.3 k/uL (3.8-10.6)
[2021-02-17 07:35] LABS: Glucose,Whole Blood 140 mg/dL (75-99)
[2021-02-17 07:38] LABS: ALT 13 U/L (4-34); AST 35 U/L (14-36); African American GFR (CKD) 49 (>60 ml/min/1.73 sqM); Albumin 3.1 g/dL (3.5-5.0); Albumin/Globulin Ratio 0.8; Alkaline Phosphatase 100 U/L (38-126); Anion Gap 9 mmol/L; Blood Urea Nitrogen 33 mg/dL (7-17); Calcium 8.8 mg/dL (8.4-10.2); Carbon Dioxide 23 mmol/L (22-30); Chloride 104 mmol/L (98-107); Globulin 3.7 g/dL; Glucose 176 mg/dL (74-99); Non-African American GFR(CKD) 42 (>60 ml/min/1.73 sqM); Sodium 136 mmol/L (137-145); Total Bilirubin 0.7 mg/dL (0.2-1.3); Total Protein 6.8 g/dL (6.3-8.2)
[2021-02-17 07:53] LABS: Potassium 5.1 mmol/L (3.5-5.1)
[2021-02-17] MEDS: FERROUS SULFATE 325 MG TAB PO SCH (08:32)
[2021-02-17] MEDS: METOPROLOL SUCCINATE (ER) 100 MG TAB.ER.24H PO SCH (08:32)
[2021-02-17] MEDS: INSULIN DETEMIR (LEVEMIR) 100 UNIT/ML SYR SQ SCH ×2 (08:33→21:58)
[2021-02-17] MEDS: DULoxetine HCL 60 MG CAPSULE.DR PO SCH (08:33)
[2021-02-17] MEDS: AMIODARONE 200 MG TAB PO SCH (08:33)
[2021-02-17] MEDS: INSULIN ASPART (NovoLOG) 100 UNIT/ML VIAL SQ SCH ×2 (08:33→17:31)
[2021-02-17 11:22] LABS: Glucose,Whole Blood 64 mg/dL (75-99)
[2021-02-17 11:29] LABS: Glucose,Whole Blood 106 mg/dL (75-99)
[2021-02-17 11:43] VITALS: BMI 28.6
--- NOTE | 2021-02-17 11:45 | CONS ---
CONSULTATION This is a 71-year-old diabetic female, well known to me from the wound clinic. The patient has been coming to the wound clinic for local wound care of the left foot. The patient developed a blister on the left leg lateral aspect of the foot with some drainage noted and redness. The patient has been admitted. The patient will be needing a wound debridement deep culture. PAST MEDICAL HISTORY: Patient had a left big toe and second toe amputation done in the past and also patient had a vascular intervention done in the past. History of diabetes. PHYSICAL EXAMINATION: NECK: Supple. Trachea central. CHEST: Clear. ABDOMEN: Soft. Femorals are 1+. The PD/DP not palpable. Left foot big toe and second toe stump are healing. The patient had developed a blister and redness on the lateral aspect of the foot with some devitalized tissue. PLAN: Debridement in the deep culture. The patient is on IV antibiotic. The patient is on vancomycin. Plan is debridement of the wound and deep culture. MMODL / IJN: [id number] /
--- NOTE | 2021-02-17 12:21 | PCN ---
PROCEDURE NOTE PREOP DIAGNOSIS: Infected wound, left foot lateral aspect. Measurement is 1 x 1 cm with redness and cellulitis of the skin. POSTOP DIAGNOSIS: 1 x 1 x 0 0.5 cm. PROCEDURE: Debridement of the wound under local anesthesia. This patient is well known to me from the wound clinic. She developed a blister and redness on the lateral aspect of the foot. Developed a wound on the lateral aspect of the foot with some devitalized tissue. The left foot was prepped and drapes applied in the usual sterile manner 1% lidocaine plain infiltrated. Using a knife, we debrided the wound down to subcutaneous tissue and fat and all the devitalized tissue was removed, sent for culture. Wound was irrigated with saline and Aquacel silver was placed inside the wound and we will change the dressing on Friday. Continue with IV antibiotic and local care. MMDEEDEEL / FRANCON: [id number] /
[2021-02-17 12:26] LABS: Glucose,Whole Blood 146 mg/dL (75-99)
--- NOTE | 2021-02-17 15:07 | P.HPIM ---
History of Present Illness H&P Date: 02/16/21 HISTORY OF PRESENT ILLNESS This is a 71-year-old female patient of Dr. Sanderson with past medical history of diabetes mellitus type 2, hypertension, hyperlipidemia, CVA in 2013 with no residuals, coronary artery disease status post 4 vessel CABG, bilateral carotid endarterectomies, mild intermittent asthma, osteomyelitis status post right great toe amputation 2014 and left toe amputation in, and right below-knee amputation June 2020 with revision on August [address] Gregory, patient had [facility] back in September 2020 ended up having angioplasty and stent placement for one of her graft from open heart surgery earlier. Patient has been doing well. Patient has been watch as an outpatient for left foot diabetic ulcer not healing well was on oral antibiotic for several months the size has been getting smaller she was changed to Bactrim 2 days ago she is also seen at the wound clinic she continued to have significant redness and worsening drainage, patient was seen her primary care physician today and was directed to [facility] for starting IV and IV antibiotic to be seen at the wound clinic possibly require debridement and further wound care with IV antibiotics. Sadly patient has 2 blister on the lateral side of her foot 1 close to the base of the fifth toe with an open area major 0.5 time 0.5 cm grade 2 ulcerated. Second one with the blister about one and half inch between the fifth toe and the lateral side of the ankle area with more water blister and open ulcer with a? Off exposure bone. Still having slight drainage. REVIEW OF SYSTEMS Constitutional: No fever, no chills, no night sweats. No weight change. No weakness, fatigue or lethargy. No daytime sleepiness. EENT: No headache. No blurred vision or double vision, no loss of vision. No loss of Hearing, no ringing in the ears, no dizziness. No nasal drainage or congestion. No epistaxis. No sore throat. Lungs: No shortness of breath, cough, no sputum production. No wheezing. Cardiovascular: No chest pain, no lower extremity edema. No palpitations. No paroxysmal nocturnal dyspnea. No orthopnea. No lightheadedness or dizziness. No syncopal episodes. Abdominal: No abdominal pain. No nausea, vomiting. No diarrhea. No constipation. No bloody or tarry stools.. No loss of appetite. Genitourinary: No dysuria, increased frequency, urgency. No urinary retention. Musculoskeletal: No myalgias. No muscle weakness, no gait dysfunction, no frequent falls. No back pain. No neck pain. Integumentary: No wounds, no lesions. No rash or pruritus. No unusual bruising. No change in hair or nails. Significant to ulcer on the lateral side of the left foot, patient had amputation of the first and second toes of the left foot and amputation of the right first toe. Neurologic: No aphasia. No facial droop. No change in mentation. No head injury. No headache. No paralysis. No paresthesia. Psychiatric: No depression. No anxiety. No mood swings. Endocrine: No abnormal blood sugars. No weight change. No excessive sweating or thirst. No cold intolerance. SOCIAL HISTORY Patient was a smoker starting at age 17 1 pack per day and quit in 1981. No alcohol abuse, no illicit drug use. Patient lives at home and uses a walker for ambulation. FAMILY HISTORY Mother is at age 90 from coronary artery disease. Father at age 86 from coronary artery disease and diabetes. Patient has one sister with lung cancer. Patient has 2 brothers and one is healthy and one has history of lung cancer. Patient has 3 daughters and one has MS, one with a female cancer and one is healthy with no major medical problems. PHYSICAL EXAMINATION Gen: This is a 71 year-old obese female. She is resting in bed and appears to be comfortable and in no acute distress. HEENT: Head is atraumatic, normocephalic. Pupils equal, round. Sclerae is anict patricia. NECK: Supple. No JVD. No lymphadenopathy. No thyromegaly. LUNGS: Clear to auscultation. No wheezes or rhonchi. No intercostal retractions. HEART: Regular rate and rhythm. No murmur. ABDOMEN: Soft. Bowel sounds are present. No masses. No tenderness. EXTREMITIES: No pedal edema. No calf tenderness. Right great toe amputation, left toe amputation significant non-healing ulcer in the left foot on the lateral side that is to area one of the base of the fifth toe measure 11 cm another one about an inch from the fifth toe between the 2 and ankle area with an open spot and ulcerated area more deeper with slight exposure bone. NEUROLOGICAL: Patient is awake, alert and oriented x3. Cranial nerves 2 through 12 are grossly intact. ASSESSMENT AND PLAN 1. Left foot nonhealing diabetic foot ulcers with possible osteomyelitis : Patient had failed outpatient treatment management was start IV antibiotics with vancomycin initially and then Unasyn awaiting for culture patient be seen infectious disease along with vascular and wound care. Sed rate and refer pat ient for bone scan 3 phase. 2. Diabetic and peripheral vascular disease foot ulcer with osteomyelitis status post stump revision. Patient had finished full course of IV antibiotic back in August. Significant worsening symptom at this point. 3. Diabetes mellitus type 2, insulin requiring, uncontrolled with hyperglycemia. Continue Levemir 15 units twice daily and NovoLog scale and NovoLog scheduled will be resumed at 5 units with each meal. We will titrate medication specially with infection blood sugar might be much higher with titrate insulin to keep blood sugar below 120. 4. Coronary artery disease with previous history of 4 vessel CABG. 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 Patient had an acute inferior ST elevation myocardial infarction post heart catheter and stent placement of the SVG to the RCA which was done in September 2020. Still on secondary prevention titrate medication. 5. Peripheral vascular disease with previous stenting of the right lower extr emity. Patient regularly follows with Dr. Gregory. 6. Chronic systolic heart failure, stable. Continue Lasix 20 mg daily, losartan and Toprol-XL. 7. COPD. Continue DuoNeb treatment, Pulmicort, Singulair. 8. History of CVA, stable. No major residual. 9. Hyperlipidemia. Continue atorvastatin 80 mg at bedtime not having any side effect. 10. Hypertension. Continue losartan and 50 mg daily. With blood pressure was controlled. 11. Recurrent depression. Continue Cymbalta 60 mg daily 12. COVID-19 testing negative. Patient has been hospitalized during a pandemic. Patient will be admitted to the hospital for a minimum of 2 night stay. Past Medical History Past Medical History: Asthma, Coronary Artery Disease (CAD), Heart Failure, COPD, CVA/TIA, Diabetes Mellitus, Hyperlipidemia, Hypertension, Pneumonia, Rheumatoid Arthritis (RA) Additional Past Medical History / Comment(s): left GREAT TOE WOUND, with current dressing, partial amputation on 06/28/20. going to hyperbaric chamber 5 days a week, PICC line right arm Last Myocardial Infarction Date:: 2014 History of Any Multi-Drug Resistant Organisms: None Reported Past Surgical History: Adenoidectomy, Appendectomy, Coronary Bypass/CABG, Heart Catheterization, Tonsillectomy, Tubal Ligation Additional Past Surgical History / Comment(s): Open heart on April 13 2015, cabg X4, bilateral carotid endarterectomies,. Right great toe amputation 2015. stent in right leg above knee, elke cataracts. left toe ambutation, 06/18/20 Past Anesthesia/Blood Transfusion Reactions: Previous Problems w/ Anesthesia Additional Past Anesthesia/Blood Transfusion Reaction / Comment(s): diff breathing afterwards Past Psychological History: No Psychological Hx Reported Smoking Status: Former smoker Past Alcohol Use History: None Reported Past Drug Use History: None Reported - Past Family History Father Family Medical History: Coronary Artery Disease (CAD), CVA/TIA, Diabetes Mellitus Mother Additional Family Medical History / Comment(s): "spot on the lung" Medications and Allergies Home Medications Medication Instructions Recorded Confirmed Type Nitroglycerin Sl Tabs [Nitrostat] 0.4 mg SL Q5M PRN 05/02/15 02/16/21 History Abatacept [Orencia] 125 mg SQ WE 05/07/19 02/16/21 History Albuterol Sulfate [Proair Hfa] 2 puff INHALATION RT-Q6H PRN 06/16/20 02/16/21 History traMADol HCL 50 mg PO BID PRN 06/16/20 02/16/21 History Insulin Glargine,Hum.rec.anlog 15 unit SQ BID #0 06/26/20 02/16/21 Rx [Lantus Solostar Pen] Montelukast Sodium [Singulair] 10 mg PO HS 07/15/20 02/16/21 History Cyclobenzaprine [Flexeril] 10 mg PO TID PRN 08/29/20 02/16/21 History DULoxetine HCL [Cymbalta] 60 mg PO DAILY 08/29/20 02/16/21 History Insulin Aspart [NovoLOG Flexpen] 16 units SQ AC-BID 08/29/20 02/16/21 History Atorvastatin [Lipitor] 80 mg PO HS #90 tab 09/13/20 02/16/21 Rx ALPRAZolam [Xanax] 0.25 mg PO DAILY PRN 02/16/21 02/16/21 History Amiodarone [Cordarone] 200 mg PO DAILY 02/16/21 02/16/21 History Ferrous Sulfate [Feosol] 325 mg PO DAILY 02/16/21 02/16/21 History HYDROcodone/APAP 10-325MG [Onley 1 tab PO TID PRN 02/16/21 02/16/21 History 10-325] LORazepam [Ativan] 0.5 mg PO DAILY PRN 02/16/21 02/16/21 History Metoprolol Succinate (ER) [Toprol 100 mg PO DAILY 02/16/21 02/16/21 History XL] Sulfamethox-Tmp 800-160Mg [Bactrim 1 tab PO Q12HR 02/16/21 02/16/21 History DS 800-160 mg] Allergies Allergy/AdvReac Type Severity Reaction Status Date / Time nickel Allergy Rash/Hives Verified 02/16/21 17:39 Physical Exam Vitals: Vital Signs Temp Pulse Pulse Resp BP BP Pulse Ox 02/16/21 21:00 97.9 F 97 20 169/72 92 L 02/16/21 15:51 97.9 F 75 18 130/71 98 Intake and Output 02/16/21 02/16/21 02/16/21 06:59 14:59 22:59 Other: Weight 78.018 kg Results CBC & Chem 7: 02/17/21 06:39 02/17/21 06:39 Labs: Abnormal Lab Results - Last 24 Hours (Table) 02/16/21 02/16/21 02/16/21 Range/Units 17:21 17:21 21:05 RBC 5.41 H (3.80-5.40) m/uL RDW 17.5 H (11.5-15.5) % Sodium 136 L (137-145) mmol/L BUN 40 H (7-17) mg/dL Creatinine 1.38 H (0.52-1.04) mg/dL Glucose 110 H (74-99) mg/dL POC Glucose (mg/dL) 116 H (75-99) mg/dL
--- NOTE | 2021-02-17 15:09 | P.PN ---
Subjective Progress Note Date: 02/17/21 HISTORY OF PRESENT ILLNESS This is a 71-year-old female patient of Dr. Sanderson with past medical history of diabetes mellitus type 2, hypertension, hyperlipidemia, CVA in 2013 with no residuals, coronary artery disease status post 4 vessel CABG, bilateral carotid endarterectomies, mild intermittent asthma, osteomyelitis status post right great toe amputation 2014 and left toe amputation in, and right below-knee amputation June 2020 with revision on August [address] Gregory, patient had ST [facility] back in September 2020 ended up having angioplasty and stent placement for one of her graft from open heart surgery earlier. Patient has been doing well. Patient has been watch as an outpatient for left foot diabetic ulcer not healing well was on oral antibiotic for several months the size has been getting smaller she was changed to Bactrim 2 days ago she is also seen at the wound clinic she continued to have significant redness and worsening drainage, patient was seen her primary care physician today and was directed to [facility] for starting IV and IV antibiotic to be seen at the wound clinic possibly require debridement and further wound care with IV antibiotics. Sadly patient has 2 blister on the lateral side of her foot 1 close to the base of the fifth toe with an open area major 0.5 time 0.5 cm grade 2 ulcerated. Second one with the blister about one and half inch between the fifth toe and the lateral side of the ankle area with more water blister and open ulcer with a? Off exposure bone. Still having slight drainage. REVIEW OF SYSTEMS Constitutional: No fever, no chills, no night sweats. No weight change. No w eakness, fatigue or lethargy. No daytime sleepiness. EENT: No headache. No blurred vision or double vision, no loss of vision. No loss of Hearing, no ringing in the ears, no dizziness. No nasal drainage or congestion. No epistaxis. No sore throat. Lungs: No shortness of breath, cough, no sputum production. No wheezing. Cardiovascular: No chest pain, no lower extremity edema. No palpitations. No paroxysmal nocturnal dyspnea. No orthopnea. No lightheadedness or dizziness. No syncopal episodes. Abdominal: No abdominal pain. No nausea, vomiting. No diarrhea. No constipation. No bloody or tarry stools.. No loss of appetite. Genitourinary: No dysuria, increased frequency, urgency. No urinary retention. Musculoskeletal: No myalgias. No muscle weakness, no gait dysfunction, no f requent falls. No back pain. No neck pain. Integumentary: No wounds, no lesions. No rash or pruritus. No unusual bruising. No change in hair or nails. Significant to ulcer on the lateral side of the left foot, patient had amputation of the first and second toes of the left foot and amputation of the right first toe. Neurologic: No aphasia. No facial droop. No change in mentation. No head injury. No headache. No paralysis. No paresthesia. Psychiatric: No depression. No anxiety. No mood swings. Endocrine: No abnormal blood sugars. No weight change. No excessive sweating or thirst. No cold intolerance. 02/17: Patient seen Dr. Gregory vascular today ended up having slight debridement and open the larger blister of the lateral side of the left foot with an open area still looks more exposed to the bone with more possibility of foster mellitus. Sed rate will be done awaiting for culture this point patient remain on Unasyn and vancomycin, was still be seen infectious disease continue current management and refer patient for 3 phase bone scan. PHYSICAL EXAMINATION Gen: This is a 71 year-old obese female. She is resting in bed and appears to be comfortable and in no acute distress. HEENT: Head is atraumatic, normocephalic. Pupils equal, round. Sclerae is anicteric. NECK: Supple. No JVD. No lymphadenopathy. No thyromegaly. LUNGS: Clear to auscultation. No wheezes or rhonchi. No intercostal retractions. HEART: Regular rate and rhythm. No murmur. ABDOMEN: Soft. Bowel sounds are present. No masses. No tenderness. EXTREMITIES: No pedal edema. No calf tenderness. Right great toe amputation, left toe amputation significant non-healing ulcer in the left foot on the lateral side that is to area one of the base of the fifth toe measure 11 cm another one about an inch from the fifth toe between the 2 and ankle area with an open spot and ulcerated area more deeper with slight exposure bone. NEUROLOGICAL: Patient is awake, alert and oriented x3. Cranial nerves 2 through 12 are grossly intact. ASSESSMENT AND PLAN 1. Left foot nonhealing diabetic foot ulcers with possible osteomyelitis : The area was opened by Dr. Gregory for patient at this point with culture was done patient be going for 3 phase bone scan the meanwhile continue Unasyn and vancomycin. 2. Diabetic and peripheral vascular disease: Continue to have ulcer and severe symptoms of both feet worse on left than the right side continue current management for now. 3. Diabetes mellitus type 2, insulin requiring, uncontrolled with hyperglycemia. Continue Levemir 15 units twice daily and NovoLog scale and NovoLog scheduled will be resumed at 5 units with each meal. We will titrate medication specially with infection blood sugar might be much higher with titrate insulin to keep blood sugar below 120. 4. Coronary artery disease with previous history of 4 vessel CABG. 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 Patient had an acute inferior ST elevation myocardial infarction post heart catheter and stent placement of the SVG to the RCA which was done in September 2020. Still on secondary prevention titrate medication. 5. Peripheral vascular disease with previous stenting of the right lower extremity. Patient regularly follows with Dr. Gregory. 6. Chronic systolic heart failure, stable. Continue Lasix 20 mg daily, losartan and Toprol-XL. 7. COPD. Continue DuoNeb treatment, Pulmicort, Singulair. 8. History of CVA, stable. No major residual. 9. Hyperlipidemia. Continue atorvastatin 80 mg at bedtime not having any side effect. 10. Hypertension. Continue losartan and 50 mg daily. With blood pressure was controlled. 11. Recurrent depression. Continue Cymbalta 60 mg daily CODE STATUS: Full code. Family conference a meeting: I had long discussion with the daughter from [place] who had a virtual conference all questions were answered the time they're fully aware of the management at this point and fully understand the risk of having to lose more valuable tissue is all dependent on the culture and responded to treatment over the next 48 hours. Objective - Vital Signs Vital signs: Vital Signs Temp 97.6 F 02/17/21 13:00 Pulse 71 02/17/21 13:00 Resp 16 02/17/21 13:00 BP 128/70 02/17/21 14:32 Pulse Ox 94 L 02/17/21 13:00 Intake & Output 02/16/21 02/17/21 02/17/21 18:59 06:59 18:59 Intake Total 200 Balance 200 Weight 78.018 kg 78.018 kg 78.018 kg Intake: Oral 200 Other: Voiding Method Toilet # Voids 2 - Labs CBC & Chem 7: 02/17/21 06:39 02/17/21 06:39 Labs: Abnormal Lab Results - Last 24 Hours (Table) 02/16/21 02/16/21 02/16/21 Range/Units 17:21 17:21 21:05 RBC 5.41 H (3.80-5.40) m/uL MCHC (31.0-37.0) g/dL RDW 17.5 H (11.5-15.5) % Sodium 136 L (137-145) mmol/L BUN 40 H (7-17) mg/dL Creatinine 1.38 H (0.52-1.04) mg/dL Glucose 110 H (74-99) mg/dL POC Glucose (mg/dL) 116 H (75-99) mg/dL Albumin (3.5-5.0) g/dL 02/17/21 02/17/21 02/17/21 Range/Units 06:39 06:39 07:34 RBC (3.80-5.40) m/uL MCHC 30.3 L (31.0-37.0) g/dL RDW 17.4 H (11.5-15.5) % Sodium 136 L (137-145) mmol/L BUN 33 H (7-17) mg/dL Creatinine 1.27 H (0.52-1.04) mg/dL Glucose 176 H (74-99) mg/dL POC Glucose (mg/dL) 140 H (75-99) mg/dL Albumin 3.1 L (3.5-5.0) g/dL 02/17/21 02/17/21 02/17/21 Range/Units 11:10 11:28 12:24 RBC (3.80-5.40) m/uL MCHC (31.0-37.0) g/dL RDW (11.5-15.5) % Sodium (137-145) mmol/L BUN (7-17) mg/dL Creatinine (0.52-1.04) mg/dL Glucose (74-99) mg/dL POC Glucose (mg/dL) 64 L 106 H 146 H (75-99) mg/dL Albumin (3.5-5.0) g/dL
[2021-02-17] MEDS: traMADol 50 MG TAB PO PRN ×2 (16:37→21:58)
[2021-02-17] MEDS: VANCOMYCIN 1,500 MG in SODIUM CHLORIDE 0.9% 250 ML IVPB SCH (16:38)
[2021-02-17 17:18] LABS: Glucose,Whole Blood 131 mg/dL (75-99)
[2021-02-17] MEDS: CEFEPIME 2 GM in SODIUM CHLORIDE 0.9% 100 ML IVPB SCH (19:39)
[2021-02-17] MEDS: MONTELUKAST 10 MG TAB PO SCH (21:58)
[2021-02-17] MEDS: ALPRAZolam 0.25 MG TAB PO PRN (21:58)
[2021-02-17] MEDS: ATORVASTATIN 80 MG TAB PO SCH (21:58)
[2021-02-17 21:59] LABS: Glucose,Whole Blood 220 mg/dL (75-99)
[2021-02-18] MEDS: CEFEPIME 2 GM in SODIUM CHLORIDE 0.9% 100 ML IVPB SCH ×3 (00:20→21:28)
[2021-02-18 07:16] LABS: Glucose,Whole Blood 120 mg/dL (75-99)
[2021-02-18 07:20] LABS: ALT 12 U/L (4-34); AST 26 U/L (14-36); African American GFR (CKD) 54 (>60 ml/min/1.73 sqM); Albumin 3.1 g/dL (3.5-5.0); Albumin/Globulin Ratio 0.9; Alkaline Phosphatase 101 U/L (38-126); Anion Gap 9 mmol/L; Blood Urea Nitrogen 26 mg/dL (7-17); Calcium 8.8 mg/dL (8.4-10.2); Carbon Dioxide 21 mmol/L (22-30); Chloride 108 mmol/L (98-107); Globulin 3.6 g/dL; Glucose 119 mg/dL (74-99); Non-African American GFR(CKD) 47 (>60 ml/min/1.73 sqM); Sodium 138 mmol/L (137-145); Total Bilirubin 0.6 mg/dL (0.2-1.3); Total Protein 6.7 g/dL (6.3-8.2)
[2021-02-18 07:53] LABS: Anisocytosis Slight; HCT 43.3 % (34.0-46.0); HGB 13.7 gm/dL (11.4-16.0); Hypochromasia Slight; MCH 26.9 pg (25.0-35.0); MCHC 31.7 g/dL (31.0-37.0); MCV 84.8 fL (80.0-100.0); Mean Platelet Volume 9.5; Platelet Count 231 k/uL (150-450); RBC 5.11 m/uL (3.80-5.40); RDW 18.1 % (11.5-15.5); WBC 4.1 k/uL (3.8-10.6)
[2021-02-18] MEDS: INSULIN ASPART (NovoLOG) 100 UNIT/ML VIAL SQ SCH ×2 (08:36→17:44)
[2021-02-18] MEDS: DULoxetine HCL 60 MG CAPSULE.DR PO SCH (08:37)
[2021-02-18] MEDS: METOPROLOL SUCCINATE (ER) 100 MG TAB.ER.24H PO SCH (08:37)
[2021-02-18] MEDS: AMIODARONE 200 MG TAB PO SCH (08:37)
[2021-02-18] MEDS: FERROUS SULFATE 325 MG TAB PO SCH (08:37)
[2021-02-18] MEDS: INSULIN DETEMIR (LEVEMIR) 100 UNIT/ML SYR SQ SCH ×2 (08:37→21:42)
[2021-02-18] MEDS: traMADol 50 MG TAB PO PRN ×2 (08:44→21:27)
[2021-02-18 09:05] LABS: Erythrocyte Sedimentation Rate 72 mm/hr (0-20)
--- NOTE | 2021-02-18 09:32 | P.CONS ---
History of Present Illness - Reason for Consult Consult date: 02/17/21 left diabetic foot infection Requesting physician: Mikel Delong - Chief Complaint left foot non healing ulcer x weeks - History of Present Illness History of present illness : Patient is 71-year female with a past medical history significant for diabetes mellitus in this patient who did have a left diabetic foot ulcer for which the patient to follow at [facility] and has been previously treated with the antibiotic therapy patient apparently noticed to have a worsening of her left foot wound over the last few days patient was evaluated by her primary care physician yesterday and subsequently sent the patient to the ER for admission evaluated by therapy patient has been complaining of increasing swelling and redness to the left foot wound patient did have underlying diabetic neuropathy has denies significant pain to the area patient on presentation to the hospital was afebrile patient did have a normal white count sed rate was elevated at 72 creatinine was mildly elevated liver enzymes are normal lopez PCR was negative patient did not have any x-rays of the foot done she has been evaluated by vascular surgery in this patient who is status post debridement of the wound on the lateral aspect of the left foot and cultures has been obtained patient was started on vancomycin she also received a dose of Unasyn infectious disease was consulted for further management of antibiotic therapy Review of system: CONSTITUTIONAL: Positive for weakness denies high-grade fever. EYES: No complaint. ENT: No complaint. RESPIRATORY: No complaint. CARDIOVASCULAR: No complaint. GENITOURINARY: No complaint. GASTROINTESTINAL: No complaint. MUSCULOSKELETAL: As per history of present illness. INTEGUMENTARY: As per history of present illness. PSYCHOLOGIC: No complaint. ENDOCRINE: No complaint. NEUROLOGIC: No complaint. Past medical history : Reviewed, documented below Past surgical history : Reviewed, documented below Social history: Reviewed, documented below Medications: Reviewed, as documented below EXAMINATION: Vital sigans= Reviewed and documented below GENERAL DESCRIPTION: Elderly female lying in bed, no distress. No tachypnea or accessory muscle of respiration use. HEENT: Shows Pallor , no scleral icterus. Oral mucous membrane is dry. NECK: Trachea central, no thyromegaly. LUNGS: Unlabored breathing. Clear to auscultation anteriorly. No wheeze or crackle. HEART: S1, S2, regular rate and rhythm. ABDOMEN: Soft, no tenderness , guarding or rigidity EXTREMITIES: Left foot wound is currently dressed post debridement with no drainage on the dressing. SKIN: No rash, no masses palpable. NEUROLOGICAL: The patient is awake, alert, oriented x3, mood and affect normal. LABS AND RADIOLOGY: Reviewed results see below Assessment : Patient with left diabetic foot ulcer and evidence of secondary cellulitis in this patient with a chronic nonhealing wound consult for possible underlying osteomyelitis patient status post debridement of the wound however did not mention the wound was probing down to the bone patient did have a recent culture was done on 02/13/2021 which was positive for MSSA Enterobacter that was resistant to Unasyn with a question of infection with similar pathogen that has failed outpatient Bactrim DS therapy Plan: 1-we will obtain x-rays of the left foot to make sure evidence of any bone involvement if negative may consider bone scan 2-vancomycin pharmacy to dose with a target trough of 15 while watching kidney function and Vanco trough closely. 3-add cefepime to cover for Enterobacter that was recently grown in culture We will follow on clinical condition and cultures to further adjust medication if needed Thank you for this consultation we will follow the patient along with you Past Medical History Past Medical History: Asthma, Coronary Artery Disease (CAD), Heart Failure, COPD, CVA/TIA, Diabetes Mellitus, Hyperlipidemia, Hypertension, Pneumonia, Rheumatoid Arthritis (RA) Additional Past Medical History / Comment(s): left GREAT TOE WOUND, with current dressing, partial amputation on 06/28/20. going to hyperbaric chamber 5 days a week, PICC line right arm Last Myocardial Infarction Date:: 2014 History of Any Multi-Drug Resistant Organisms: None Reported Past Surgical History: Adenoidectomy, Appendectomy, Coronary Bypass/CABG, Heart Catheterization, Tonsillectomy, Tubal Ligation Additional Past Surgical History / Comment(s): Open heart on April 13 2015, cabg X4, bilateral carotid endarterectomies,. Right great toe amputation 2014. stent in right leg above knee, elke cataracts. left toe ambutation, 06/18/20 Past Anesthesia/Blood Transfusion Reactions: Previous Problems w/ Anesthesia Additional Past Anesthesia/Blood Transfusion Reaction / Comm: diff breathing afterwards Past Psychological History: No Psychological Hx Reported Smoking Status: Former smoker Past Alcohol Use History: None Reported Past Drug Use History: None Reported - Past Family History Father Family Medical History: Coronary Artery Disease (CAD), CVA/TIA, Diabetes Mellitus Mother Additional Family Medical History / Comment(s): "spot on the lung" Medications and Allergies Home Medications Medication Instructions Recorded Confirmed Type Nitroglycerin Sl Tabs [Nitrostat] 0.4 mg SL Q5M PRN 05/02/15 02/16/21 History Abatacept [Orencia] 125 mg SQ WE 05/07/19 02/16/21 History Albuterol Sulfate [Proair Hfa] 2 puff INHALATION RT-Q6H PRN 06/16/20 02/16/21 History traMADol HCL 50 mg PO BID PRN 06/16/20 02/16/21 History Insulin Glargine,Hum.rec.anlog 15 unit SQ BID #0 06/26/20 02/16/21 Rx [Lantus Solostar Pen] Montelukast Sodium [Singulair] 10 mg PO HS 07/15/20 02/16/21 History Cyclobenzaprine [Flexeril] 10 mg PO TID PRN 08/29/20 02/16/21 History DULoxetine HCL [Cymbalta] 60 mg PO DAILY 08/29/20 02/16/21 History Insulin Aspart [NovoLOG Flexpen] 16 units SQ AC-BID 08/29/20 02/16/21 History Atorvastatin [Lipitor] 80 mg PO HS #90 tab 09/13/20 02/16/21 Rx ALPRAZolam [Xanax] 0.25 mg PO DAILY PRN 02/16/21 02/16/21 History Amiodarone [Cordarone] 200 mg PO DAILY 02/16/21 02/16/21 History Ferrous Sulfate [Feosol] 325 mg PO DAILY 02/16/21 02/16/21 History HYDROcodone/APAP 10-325MG [Dilley 1 tab PO TID PRN 02/16/21 02/16/21 History 10-325] LORazepam [Ativan] 0.5 mg PO DAILY PRN 02/16/21 02/16/21 History Metoprolol Succinate (ER) [Toprol 100 mg PO DAILY 02/16/21 02/16/21 History XL] Sulfamethox-Tmp 800-160Mg [Bactrim 1 tab PO Q12HR 02/16/21 02/16/21 History DS 800-160 mg] Allergies Allergy/AdvReac Type Severity Reaction Status Date / Time nickel Allergy Rash/Hives Verified 02/16/21 17:39 Physical Exam Vitals: Vital Signs Temp Pulse Pulse Resp BP BP BP 02/17/21 14:32 128/70 02/17/21 13:00 97.6 F 71 16 02/17/21 08:30 88 18 02/17/21 08:15 98.1 F 88 18 158/67 02/17/21 04:40 97.9 F 86 20 167/92 02/17/21 02:00 97.9 F 97 20 169/72 02/16/21 21:00 97.9 F 97 20 169/72 02/16/21 15:51 97.9 F 75 18 130/71 Pulse Ox 02/17/21 14:32 02/17/21 13:00 94 L 02/17/21 08:30 02/17/21 08:15 97 02/17/21 04:40 95 02/17/21 02:00 96 02/16/21 21:00 92 L 02/16/21 15:51 98 Intake and Output 02/16/21 02/17/21 02/17/21 22:59 06:59 14:59 Intake Total 200 Balance 200 Intake: Oral 200 Other: Voiding Method Toilet # Voids 2 Weight 78.018 kg 78.018 kg Results CBC & Chem 7: 02/18/21 06:14 02/18/21 06:14 Labs: Abnormal Lab Results - Last 24 Hours (Table) 02/16/21 02/16/21 02/16/21 Range/Units 17:21 17:21 21:05 RBC 5.41 H (3.80-5.40) m/uL MCHC (31.0-37.0) g/dL RDW 17.5 H (11.5-15.5) % Sodium 136 L (137-145) mmol/L BUN 40 H (7-17) mg/dL Creatinine 1.38 H (0.52-1.04) mg/dL Glucose 110 H (74-99) mg/dL POC Glucose (mg/dL) 116 H (75-99) mg/dL Albumin (3.5-5.0) g/dL 02/17/21 02/17/21 02/17/21 Range/Units 06:39 06:39 07:34 RBC (3.80-5.40) m/uL MCHC 30.3 L (31.0-37.0) g/dL RDW 17.4 H (11.5-15.5) % Sodium 136 L (137-145) mmol/L BUN 33 H (7-17) mg/dL Creatinine 1.27 H (0.52-1.04) mg/dL Glucose 176 H (74-99) mg/dL POC Glucose (mg/dL) 140 H (75-99) mg/dL Albumin 3.1 L (3.5-5.0) g/dL 02/17/21 02/17/21 02/17/21 Range/Units 11:10 11:28 12:24 RBC (3.80-5.40) m/uL MCHC (31.0-37.0) g/dL RDW (11.5-15.5) % Sodium (137-145) mmol/L BUN (7-17) mg/dL Creatinine (0.52-1.04) mg/dL Glucose (74-99) mg/dL POC Glucose (mg/dL) 64 L 106 H 146 H (75-99) mg/dL Albumin (3.5-5.0) g/dL
--- NOTE | 2021-02-18 10:45 | P.PN ---
Subjective Progress Note Date: 02/18/21 HISTORY OF PRESENT ILLNESS This is a 71-year-old female patient of Dr. Sanderson with past medical history of diabetes mellitus type 2, hypertension, hyperlipidemia, CVA in 2013 with no residuals, coronary artery disease status post 4 vessel CABG, bilateral carotid endarterectomies, mild intermittent asthma, osteomyelitis status post right great toe amputation 2014 and left toe amputation in, and right below-knee amputation June 2020 with revision on August [address] Gregory, patient had ST MA back in September 2020 ended up having angioplasty and stent placement for one of her graft from open heart surgery earlier. Patient has been doing well. Patient has been watch as an outpatient for left foot diabetic ulcer not healing well was on oral antibiotic for several months the size has been getting smaller she was changed to Bactrim 2 days ago she is also seen at the wound clinic she continued to have significant redness and worsening drainage, patient was seen her primary care physician today and was directed to [facility] for starting IV and IV antibiotic to be seen at the wound clinic possibly require debridement and further wound care with IV antibiotics. Sadly patient has 2 blister on the lateral side of her foot 1 close to the base of the fifth toe with an open area major 0.5 time 0.5 cm grade 2 ulcerated. Second one with the blister about one and half inch between the fifth toe and the lateral side of the ankle area with more water blister and open ulcer with a? Off exposure bone. Still having slight drainage. REVIEW OF SYSTEMS Constitutional: No fever, no chills, no night sweats. No weight change. No w eakness, fatigue or lethargy. No daytime sleepiness. EENT: No headache. No blurred vision or double vision, no loss of vision. No loss of Hearing, no ringing in the ears, no dizziness. No nasal drainage or congestion. No epistaxis. No sore throat. Lungs: No shortness of breath, cough, no sputum production. No wheezing. Cardiovascular: No chest pain, no lower extremity edema. No palpitations. No paroxysmal nocturnal dyspnea. No orthopnea. No lightheadedness or dizziness. No syncopal episodes. Abdominal: No abdominal pain. No nausea, vomiting. No diarrhea. No constipation. No bloody or tarry stools.. No loss of appetite. Genitourinary: No dysuria, increased frequency, urgency. No urinary retention. Musculoskeletal: No myalgias. No muscle weakness, no gait dysfunction, no f requent falls. No back pain. No neck pain. Integumentary: No wounds, no lesions. No rash or pruritus. No unusual bruising. No change in hair or nails. Significant to ulcer on the lateral side of the left foot, patient had amputation of the first and second toes of the left foot and amputation of the right first toe. Neurologic: No aphasia. No facial droop. No change in mentation. No head injury. No headache. No paralysis. No paresthesia. Psychiatric: No depression. No anxiety. No mood swings. Endocrine: No abnormal blood sugars. No weight change. No excessive sweating or thirst. No cold intolerance. 02/17: Patient seen Dr. Gregory vascular today ended up having slight debridement and open the larger blister of the lateral side of the left foot with an open area still looks more exposed to the bone with more possibility of foster mellitus. Sed rate will be done awaiting for culture this point patient remain on Unasyn and vancomycin, was still be seen infectious disease continue current management and refer patient for 3 phase bone scan. 02/18: Patient was seen Dr. Mccabe yesterday who agreed keep patient on vancomycin with switch Unasyn to cefepime for better coverage on enterococcus. She is not running any fever or chills her sed rate came back quite bit high at 72 x-ray was order and patient will be going for bone scan tomorrow. Overall pain and discomfort and drainage is much better this point. PHYSICAL EXAMINATION Gen: This is a 71 year-old obese female. She is resting in bed and appears to be comfortable and in no acute distress. HEENT: Head is atraumatic, normocephalic. Pupils equal, round. Sclerae is anicteric. NECK: Supple. No JVD. No lymphadenopathy. No thyromegaly. LUNGS: Clear to auscultation. No wheezes or rhonchi. No intercostal retractions. HEART: Regular rate and rhythm. No murmur. ABDOMEN: Soft. Bowel sounds are present. No masses. No tenderness. EXTREMITIES: No pedal edema. No calf tenderness. Right great toe amputation, left toe amputation significant non-healing ulcer in the left foot on the lateral side that is to area one of the base of the fifth toe measure 11 cm another one about an inch from the fifth toe between the 2 and ankle area with an open spot and ulcerated area more deeper with slight exposure bone. NEUROLOGICAL: Patient is awake, alert and oriented x3. Cranial nerves 2 through 12 are grossly intact. ASSESSMENT AND PLAN 1. Left foot nonhealing diabetic foot ulcers with possible osteomyelitis : Antibiotic was changed to vancomycin and cefepime sed rate was elevated patient is going for bone scan tomorrow. Culture still pending at this point. 2. Diabetic and peripheral vascular disease: Continue to have ulcer and severe symptoms of both feet worse on left than the right side continue current management for now. 3. Diabetes mellitus type 2, insulin requiring, uncontrolled with hyperglycemia. New current dose of insulin patient blood sugars much better this morning. 4. Coronary artery disease with previous history of 4 vessel CABG. 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 Patient had an acute inferior ST elevation myocardial infarction post heart catheter and stent placement of the SVG to the RCA which was done in September 2020. Still on secondary prevention titrate medication. 5. Peripheral vascular disease with previous stenting of the right lower extremity. Patient regularly follows with Dr. Gregory. 6. Chronic systolic heart failure, stable. Continue Lasix 20 mg daily, losartan and Toprol-XL. 7. COPD. Continue DuoNeb treatment, Pulmicort, Singulair. 8. History of CVA, stable. No major residual. 9. Hyperlipidemia. Continue atorvastatin 80 mg at bedtime not having any side effect. 10. Hypertension. Continue losartan and 50 mg daily. With blood pressure was controlled. 11. Recurrent depression. Continue Cymbalta 60 mg daily CODE STATUS: Full code. Objective - Vital Signs Vital signs: Vital Signs Temp 98.3 F 02/18/21 04:40 Pulse 72 02/18/21 04:40 Resp 20 02/18/21 04:40 BP 131/61 02/18/21 04:40 Pulse Ox 92 L 02/18/21 04:40 Intake & Output 02/17/21 02/18/21 02/18/21 19:59 06:59 18:59 Intake Total Balance Weight Intake: Oral Other: Voiding Method # Voids - Labs CBC & Chem 7: 02/18/21 06:14 11/07/21 06:14 Labs: Abnormal Lab Results - Last 24 Hours (Table) 02/17/21 02/17/21 02/17/21 Range/Units 12:24 17:16 21:57 RDW (11.5-15.5) % ESR (0-20) mm/hr Chloride (98-107) mmol/L Carbon Dioxide (22-30) mmol/L BUN (7-17) mg/dL Creatinine (0.52-1.04) mg/dL Glucose (74-99) mg/dL POC Glucose (mg/dL) 146 H 131 H 220 H (75-99) mg/dL Albumin (3.5-5.0) g/dL 02/18/21 02/18/21 02/18/21 Range/Units 06:14 06:14 07:14 RDW 18.1 H (11.5-15.5) % ESR 72 H (0-20) mm/hr Chloride 108 H (98-107) mmol/L Carbon Dioxide 21 L (22-30) mmol/L BUN 26 H (7-17) mg/dL Creatinine 1.17 H (0.52-1.04) mg/dL Glucose 119 H (74-99) mg/dL POC Glucose (mg/dL) 120 H (75-99) mg/dL Albumin 3.1 L (3.5-5.0) g/dL Microbiology - Last 24 Hours (Table) 02/17/21 10:00 Gram Stain - Preliminary Foot - Left Wound Culture - Preliminary 02/17/21 10:00 Gram Stain - Preliminary Foot - Left Tissue Culture - Preliminary 02/16/21 17:25 Blood Culture - Preliminary Blood No Growth after 24 hours
--- NOTE | 2021-02-18 12:48 | XR ---
EXAMINATION TYPE: XR foot complete LT DATE OF EXAM: 02/18/2021 COMPARISON: NONE HISTORY: Swelling TECHNIQUE: Three views are submitted. FINDINGS: There is amputation of portions of the first and second digits however there appears to be irregulari ty along the distal margin of the second metatarsal is tiny bony densities in the soft tissues. Addit ionally there appears to be an ulceration involving the lateral margin of the foot and there is erosi ve change involving the head of the fifth metatarsal. No acute fracture. No dislocation. IMPRESSION: 1. Findings highly suggestive of osteomyelitis involving the head of the fifth digit and possibly hea d of the second digit. 2. Soft tissue edema correlate for cellulitis with ulceration.
[2021-02-18 12:57] LABS: Glucose,Whole Blood 139 mg/dL (75-99)
[2021-02-18] MEDS: HYDROcodone/APAP 10-325MG 1 EACH TAB PO PRN (13:40)
[2021-02-18] MEDS: VANCOMYCIN 1,500 MG in SODIUM CHLORIDE 0.9% 250 ML IVPB SCH (16:44)
[2021-02-18 17:33] LABS: Glucose,Whole Blood 123 mg/dL (75-99)
--- NOTE | 2021-02-18 20:46 | PN ---
PROGRESS NOTE DATE OF SERVICE: 02/18/2021 REASON FOR FOLLOWUP: Left diabetic foot infection with underlying osteomyelitis. INTERVAL HISTORY: The patient is afebrile. The patient is breathing comfortably. The patient denies having any chest pain or shortness of breath or cough. No nausea, no vomiting. No abdominal pain. Pain to the left foot is currently controlled. PHYSICAL EXAMINATION: Blood pressure 139/73 with a pulse of 64, temperature 97.6. She is 93% on room air. General description is an elderly female lying in bed in no distress. Respiratory system: Unlabored breathing. Clear to auscultation anteriorly. Heart S1, S2. Regular rate and rhythm. Abdomen soft, no tenderness. Left foot is currently dressed. No obvious drainage on the dressing. LABS: Hemoglobin is 13.6, white count 4.1. Creatinine is 1.17. Wound cultures currently pending. DIAGNOSTIC IMPRESSION AND PLAN: Patient with left diabetic foot infection concerning for underlying osteomyelitis on the basis of plain x-rays with elevated sedimentation rate, status post debridement. Cultures are pending. Discharge antibiotics will be based on these cultures. Likely PICC line. Continue supportive care. MMODL / IJN: [id number] /
[2021-02-18] MEDS: ALPRAZolam 0.25 MG TAB PO PRN (21:27)
[2021-02-18] MEDS: MONTELUKAST 10 MG TAB PO SCH (21:28)
[2021-02-18] MEDS: ATORVASTATIN 80 MG TAB PO SCH (21:28)
[2021-02-19] MEDS: HYDROcodone/APAP 10-325MG 1 EACH TAB PO PRN (05:45)
[2021-02-19 06:30] LABS: INR 0.9 (<1.2); Prothrombin Time 9.5 sec (9.0-12.0)
[2021-02-19 07:30] LABS: Glucose,Whole Blood 128 mg/dL (75-99)
[2021-02-19] MEDS: DULoxetine HCL 60 MG CAPSULE.DR PO SCH (08:37)
[2021-02-19] MEDS: FERROUS SULFATE 325 MG TAB PO SCH (08:37)
[2021-02-19] MEDS: METOPROLOL SUCCINATE (ER) 100 MG TAB.ER.24H PO SCH (08:37)
[2021-02-19] MEDS: AMIODARONE 200 MG TAB PO SCH (08:37)
[2021-02-19] MEDS: INSULIN ASPART (NovoLOG) 100 UNIT/ML VIAL SQ SCH ×2 (08:38→17:47)
[2021-02-19] MEDS: CEFEPIME 2 GM in SODIUM CHLORIDE 0.9% 100 ML IVPB SCH ×2 (08:38→20:48)
[2021-02-19] MEDS: INSULIN DETEMIR (LEVEMIR) 100 UNIT/ML SYR SQ SCH ×2 (08:38→20:48)
--- NOTE | 2021-02-19 08:47 | P.PN ---
Progress Note - Text 71-year-old diabetic female patient came with the infected wound left leg lateral aspect of the foot we did the debridement the culture is pending patient and IV antibiotic under care of infectious disease today the redness is less we will switch to Santyl cream for the left foot which should be changed daily
--- NOTE | 2021-02-19 11:20 | CDI ---
Documentation Clarification Form Date: 02/19/2021 10:35:27 AM From: Abbi Lewis RN, CCDS Admit Date: 02/16/2021 05:03:00 PM Patient Name: Tracee Price Visit Number: [id number] Discharge Date: ATTENTION: The Clinical Documentation Specialists (CDI) and [facility] Coding Staff appreciate your assistance in clarifying documentation. Please respond to the clarification below the line at the bottom and electronically sign. The CDI & [facility] Coding staff will review the response and follow-up if needed. Please note: Queries are made part of the Legal Health Record. If you have any questions, please contact the author of this message via ITS. Dr. Rustam Fry debridement is documented [insert date, location]. Additional clarification regarding the procedure technique is requested. History/Risk Factors: Diabetes mellitus, Hypertension, CVA Clinical Indicators: 71-year-old female developed a blister and redness on the later aspect of the foot. n 02/17/21 she had a debridement. Treatment: 02/17 debridement left foot Vancomycin HCL 1,500 MG IVPB unasyn 3 GM IVPB (02/16) Please clarify the type of technique used in the procedure: [ ] Excisional debridement (the removal of necrotic, devitalized tissue or slough by means of cutting away of tissue) [ ] Non-excisional debridement (the removal of necrotic, devitalized tissue or slough by means of flushing, brushing, or washing. (Irrigation) [ ] Other; please specify [ ] Unable to determine Five elements required for accurate and compliant documentation of a debridement: Technique used (e.g., excisional, excised, cutting, brushing, jet lavage etc.) Instrument(s) used (e.g., scalpel, curette, etc.) Nature of the tissue removed (e.g., necrotic, devitalized tissues, non-viable tissue, etc.) Appearance and size of the wound (e.g., down to fresh bleeding tissue, 7cm x 10cm, etc.) Depth of the debridement* (e.g., skin, subcutaneous tissue, fascia, muscle, bone, etc.) (Template Last Revised: June 2020) MTDD
[2021-02-19] MEDS: DICLOFENAC SODIUM GEL 100 GM TUBE TOPICAL SCH ×4 (12:16→20:50)
[2021-02-19] MEDS: methylPREDNISolone 4 MG TAB TAPER PO SCH (12:16)
[2021-02-19] MEDS: COLLAGENASE 250 UNIT/GM OINTMENT 30 GM TUBE TOPICAL SCH (12:16)
[2021-02-19 12:36] LABS: Glucose,Whole Blood 150 mg/dL (75-99)
--- NOTE | 2021-02-19 15:29 | NM ---
EXAMINATION TYPE: NM bone 3 phase DATE OF EXAM: 02/19/2021 COMPARISON: Prior 3 phase bone scan February 02, 2014. Left foot x-ray February 18, 2021 HISTORY: Left great toe focal pain and swelling. Triple phase bone scintigraphy was performed following the injection of 27.3 mCi Tc 99m MDP. Immedia te images and 3 hours post injection images acquired. Images of the bilateral ankles and feet. FINDINGS: There is asymmetric increased radiotracer uptake to the left ankle and foot versus the opposite right side particularly the distal toes on dynamic arterial images, increased radiotracer uptake to the ri ght first toe is also present. Soft tissue phase images show similar increased uptake to the right fi rst toe and left foot greatest involving first and second toe remnants and diffusely through the fift h toe. Delayed phase images show increased radiotracer uptake to the first right toe stump as well as the first and second toe stump seen in the fifth toe on the left in the region of the metatarsal hea d. IMPRESSION: Possible acute osteomyelitis first toe stump on the right. Possible acute osteomyelitis f irst and second toe stump's and in the region of the fifth metatarsal head on the left. Correlate cli nically.
--- NOTE | 2021-02-19 15:41 | P.PN ---
Subjective Progress Note Date: 02/19/21 HISTORY OF PRESENT ILLNESS This is a 71-year-old female patient of Dr. Sanderson with past medical history of diabetes mellitus type 2, hypertension, hyperlipidemia, CVA in 2013 with no residuals, coronary artery disease status post 4 vessel CABG, bilateral carotid endarterectomies, mild intermittent asthma, osteomyelitis status post right great toe amputation 2014 and left toe amputation in, and right below-knee amputation June 2020 with revision on August [address] Gregory, patient had ST MD back in September 2020 ended up having angioplasty and stent placement for one of her graft from open heart surgery earlier. Patient has been doing well. Patient has been watch as an outpatient for left foot diabetic ulcer not healing well was on oral antibiotic for several months the size has been getting smaller she was changed to Bactrim 2 days ago she is also seen at the wound clinic she continued to have significant redness and worsening drainage, patient was seen her primary care physician today and was directed to [facility] for starting IV and IV antibiotic to be seen at the wound clinic possibly require debridement and further wound care with IV antibiotics. Sadly patient has 2 blister on the lateral side of her foot 1 close to the base of the fifth toe with an open area major 0.5 time 0.5 cm grade 2 ulcerated. Second one with the blister about one and half inch between the fifth toe and the lateral side of the ankle area with more water blister and open ulcer with a? Off exposure bone. Still having slight drainage. 02/17: Patient seen Dr. Gregory vascular today ended up having slight debridement and open the larger blister of the lateral side of the left foot with an open area still looks more exposed to the bone with more possibility of foster mellitus. Sed rate will be done awaiting for culture this point patient remain on Unasyn and vancomycin, was still be seen infectious disease continue current management and refer patient for 3 phase bone scan. 02/18: Patient was seen Dr. Mccabe yesterday who agreed keep patient on vancomycin with switch Unasyn to cefepime for better coverage on enterococcus. She is not running any fever or chills her sed rate came back quite bit high at 72 x-ray was order and patient will be going for bone scan tomorrow. Overall pain and discomfort and drainage is much better this point. 02/19: She is complaining of rheumatoid arthritis pain in her shoulders and hands and patient started on Voltaren gel and Medrol Dosepak. She's been afebrile, heart rate 57, blood pressure 162/82, pulse ox 97% on room air. Repeat blood work reveals INR of 0.9. Sodium 138, potassium 5, chloride 108, CO2 23, BUN 29 creatinine 1.26. Blood sugars are well-controlled at 123 -150. Wound cultures are in process, blood product culture no growth at 48 hours. She is undergoing bone scan today. She's been seen by Dr. Mccbae in Dr. Gregory. PICC line has been ordered for IV antibiotics, consult added for nephrology to clear patient for PICC line insertion. REVIEW OF SYSTEMS Constitutional: No fever, no chills, no night sweats. No weight change. No weakness, fatigue or lethargy. No daytime sleepiness. EENT: No headache. No blurred vision or double vision, no loss of vision. No loss of Hearing, no ringing in the ears, no dizziness. No nasal drainage or congestion. No epistaxis. No sore throat. Lungs: No shortness of breath, cough, no sputum production. No wheezing. Cardiovascular: No chest pain, no lower extremity edema. No palpitations. No paroxysmal nocturnal dyspnea. No orthopnea. No lightheadedness or dizziness. No syncopal episodes. Abdominal: No abdominal pain. No nausea, vomiting. No diarrhea. No constipation. No bloody or tarry stools.. No loss of appetite. Genitourinary: No dysuria, increased frequency, urgency. No urinary retention. Musculoskeletal: No myalgias. No muscle weakness, no gait dysfunction, no frequent falls. No back pain. No neck pain. Reports joint pain. Integumentary: No wounds, no lesions. No rash or pruritus. No unusual bruising. No change in hair or nails. Significant to ulcer on the lateral side of the left foot, patient had amputation of the first and second toes of the left foot and amputation of the right first toe. Neurologic: No aphasia. No facial droop. No change in mentation. No head injury. No headache. No paralysis. No paresthesia. Psychiatric: No depression. No anxiety. No mood swings. Endocrine: No abnormal blood sugars. No weight change. No excessive sweating or thirst. No cold intolerance. PHYSICAL EXAMINATION Gen: This is a 71 year-old obese female. She is resting in bed and appears to be comfortable. HEENT: Head is atraumatic, normocephalic. Pupils equal, round. Sclerae is anicteric. NECK: Supple. No JVD. No lymphadenopathy. No thyromegaly. LUNGS: Clear to auscultation. No wheezes or rhonchi. No intercostal retractions. HEART: Regular rate and rhythm. No murmur. ABDOMEN: Soft. Bowel sounds are present. No masses. No tenderness. EXTREMITIES: No pedal edema. No calf tenderness. Right great toe amputation, left toe amputation significant non-healing ulcer in the left foot on the lateral side that is to area one of the base of the fifth toe measure 11 cm another one about an inch from the fifth toe between the 2 and ankle area with an open spot and ulcerated area more deeper with slight exposure bone. NEUROLOGICAL: Patient is awake, alert and oriented x3. Cranial nerves 2 through 12 are grossly intact. ASSESSMENT AND PLAN 1. Left foot nonhealing diabetic foot ulcers with possible osteomyelitis : Antibiotic was changed to vancomycin and cefepime sed rate was elevated patient is going for bone scan today. Culture still pending at this point. PICC line has been ordered. 2. Diabetic and peripheral vascular disease: Continue to have ulcer and severe symptoms of both feet worse on left than the right side continue current management for now. 3. Diabetes mellitus type 2, insulin requiring, uncontrolled with hyperglycemia. New current dose of insulin patient blood sugars much better this morning. 4. Coronary artery disease with previous history of 4 vessel CABG. Patient's traffic survey technician is Dr. Brown at [facility]. Patient had an acute inferior ST elevation myocardial infarction post heart catheter and stent placement of the SVG to the RCA which was done in September 2020. Still on secondary prevention titrate medication. 5. Peripheral vascular disease with previous stenting of the right lower extremity. Patient regularly follows with Dr. Gregory. 6. Chronic systolic heart failure, stable. Continue Lasix 20 mg daily, losartan and Toprol-XL. 7. COPD. Continue DuoNeb treatment, Pulmicort, Singulair. 8. History of CVA, stable. No major residual. 9. Hyperlipidemia. Continue atorvastatin 80 mg at bedtime not having any side effect. 10. Hypertension. Continue losartan and 50 mg daily. With blood pressure was controlled. 11. Recurrent depression. Continue Cymbalta 60 mg daily 12> rheumatoid arthritis. Patient will be started on oral steroids and Voltaren gel CODE STATUS: Full code. Impression and plan of care have been directed as dictated by the signing physician. Emily Higginbotham nurse practitioner acting as scribe for signing physician. Objective - Vital Signs Vital signs: Vital Signs Temp 98 F 02/19/21 05:00 Pulse 68 02/19/21 05:00 Resp 18 02/19/21 05:00 BP 150/87 02/19/21 05:00 Pulse Ox 94 L 02/19/21 05:00 Intake & Output 02/18/21 02/19/21 02/19/21 18:59 06:59 18:59 Intake Total 360 200 Balance 360 200 Intake: Intake, IV Titration 200 Amount Cefepime 2 gm In Sodium 200 Chloride 0.9% 100 ml @ 25 mls/hr IVPB Q12HR [facility] Rx #:[id number] Oral 360 Other: Voiding Method Toilet Toilet # Voids 4 3 - Labs CBC & Chem 7: 02/18/21 06:14 02/19/21 05:36 Labs: Abnormal Lab Results - Last 24 Hours (Table) 02/18/21 02/18/21 02/19/21 Range/Units 12:55 17:31 05:36 Chloride 108 H (98-107) mmol/L BUN 29 H (7-17) mg/dL Creatinine 1.26 H (0.52-1.04) mg/dL POC Glucose (mg/dL) 139 H 123 H (75-99) mg/dL 02/19/21 Range/Units 07:28 Chloride (98-107) mmol/L BUN (7-17) mg/dL Creatinine (0.52-1.04) mg/dL POC Glucose (mg/dL) 128 H (75-99) mg/dL Microbiology - Last 24 Hours (Table) 02/16/21 17:25 Blood Culture - Preliminary Blood No Growth after 48 hours 02/17/21 10:00 Gram Stain - Preliminary Foot - Left Wound Culture - Preliminary 02/17/21 10:00 Gram Stain - Preliminary Foot - Left Tissue Culture - Preliminary
[2021-02-19 17:14] LABS: Glucose,Whole Blood 196 mg/dL (75-99)
[2021-02-19] MEDS: VANCOMYCIN 1,500 MG in SODIUM CHLORIDE 0.9% 250 ML IVPB SCH (17:47)
[2021-02-19 20:45] LABS: Glucose,Whole Blood 166 mg/dL (75-99)
[2021-02-19] MEDS: MONTELUKAST 10 MG TAB PO SCH (20:47)
[2021-02-19] MEDS: ATORVASTATIN 80 MG TAB PO SCH (20:47)
--- NOTE | 2021-02-19 23:04 | PN ---
PROGRESS NOTE DATE OF SERVICE: 02/19/2021 REASON FOR FOLLOWUP: Left diabetic foot infection. INTERVAL HISTORY: Patient is afebrile. The patient is currently breathing comfortably. He denies having any chest pain. No shortness of breath or cough. No vomiting. No abdominal pain. No worsening pain to the left foot area. EXAMINATION: Her blood pressure is 146/77, pulse of 72, temperature of 98.5. She is 94% on room air. General description is an elderly female lying in bed in no distress. Respiratory system: Unlabored breathing, clear to auscultation anteriorly. Heart S1, S2. Regular rate and rhythm. Abdomen soft, no tenderness. Left foot is currently dressed. No obvious drainage on the dressing. LABS: Creatinine is 1.26. Bone scan is positive. DIAGNOSTIC IMPRESSION AND PLAN: Patient with left diabetic foot infection with infected callus, status post debridement. Culture was pending. Patient is with vancomycin. She will need a PICC line for outpatient antibiotic therapy with discharge antibiotic based on the culture report. Continue supportive care. MMODL / IJN: [id number] /
[2021-02-20 07:04] LABS: Glucose,Whole Blood 182 mg/dL (75-99)
[2021-02-20] MEDS: INSULIN DETEMIR (LEVEMIR) 100 UNIT/ML SYR SQ SCH ×2 (08:56→20:13)
[2021-02-20] MEDS: INSULIN ASPART (NovoLOG) 100 UNIT/ML VIAL SQ SCH ×2 (08:58→18:20)
--- NOTE | 2021-02-20 09:45 | P.NPCON ---
History of Present Illness - Reason for Consult chronic renal failure - History of Present Illness Reason for consultation: Chronic kidney disease History of present illness: Patient is a 71-year-old female seen in consultation for chronic kidney disease. Patient has chronic kidney disease stage IIIB with baseline creatinine in the range of 1.2-1.4. Etiology is diabetic kidney disease. GFR is at baseline. Patient denies following with nephrology outpatient. Patient presented to the hospital due to nonhealing left foot diabetic ulcer. She underwent debridement of the wound on February 17. Culture is positive for alphahemolytic strep. She is on antibiotics. Good urine output. No hematuria or dysuria. She has long- standing history of diabetes. Denies regular use of nonsteroidals. No chest pain or shortness of breath. No edema. Oral intake is good. Hemodynamically stable. Vital signs are stable. General: The patient appeared well nourished and normally developed. HEENT: Head exam is unremarkable. LUNGS: Breath sounds decreased. HEART: Rate and Rhythm are regular. First and second heart sounds normal. No murmurs, rubs or gallops. ABDOMEN: Soft, no distention. EXTREMITITES: No edema. Toe amputations noted. Past Medical History Past Medical History: Asthma, Coronary Artery Disease (CAD), Heart Failure, COPD, CVA/TIA, Diabetes Mellitus, Hyperlipidemia, Hypertension, Pneumonia, Rheumatoid Arthritis (RA) Additional Past Medical History / Comment(s): left GREAT TOE WOUND, with current dressing, partial amputation on 06/28/20. going to hyperbaric chamber 5 days a week, PICC line right arm Last Myocardial Infarction Date:: 2014 History of Any Multi-Drug Resistant Organisms: None Reported Past Surgical History: Adenoidectomy, Appendectomy, Coronary Bypass/CABG, Heart Catheterization, Tonsillectomy, Tubal Ligation Additional Past Surgical History / Comment(s): Open heart on April 13 2015, cabg X4, bilateral carotid endarterectomies,. Right great toe amputation 2015. stent in right leg above knee, elke cataracts. left toe ambutation, 06/18/20 Past Anesthesia/Blood Transfusion Reactions: Previous Problems w/ Anesthesia Additional Past Anesthesia/Blood Transfusion Reaction / Comment(s): diff breathing afterwards Past Psychological History: No Psychological Hx Reported Smoking Status: Former smoker Past Alcohol Use History: None Reported Past Drug Use History: None Reported - Past Family History Father Family Medical History: Coronary Artery Disease (CAD), CVA/TIA, Diabetes Mellitus Mother Additional Family Medical History / Comment(s): "spot on the lung" Medications and Allergies Home Medications Medication Instructions Recorded Confirmed Type Nitroglycerin Sl Tabs [Nitrostat] 0.4 mg SL Q5M PRN 05/02/15 02/16/21 History Abatacept [Orencia] 125 mg SQ WE 05/07/19 02/16/21 History Albuterol Sulfate [Proair Hfa] 2 puff INHALATION RT-Q6H PRN 06/16/20 02/16/21 History traMADol HCL 50 mg PO BID PRN 06/16/20 02/16/21 History Insulin Glargine,Hum.rec.anlog 15 unit SQ BID #0 06/26/20 02/16/21 Rx [Lantus Solostar Pen] Montelukast Sodium [Singulair] 10 mg PO HS 07/15/20 02/16/21 History Cyclobenzaprine [Flexeril] 10 mg PO TID PRN 08/29/20 02/16/21 History DULoxetine HCL [Cymbalta] 60 mg PO DAILY 08/29/20 02/16/21 History Insulin Aspart [NovoLOG Flexpen] 16 units SQ AC-BID 08/29/20 02/16/21 History Atorvastatin [Lipitor] 80 mg PO HS #90 tab 09/13/20 02/16/21 Rx ALPRAZolam [Xanax] 0.25 mg PO DAILY PRN 02/16/21 02/16/21 History Amiodarone [Cordarone] 200 mg PO DAILY 02/16/21 02/16/21 History Ferrous Sulfate [Feosol] 325 mg PO DAILY 02/16/21 02/16/21 History HYDROcodone/APAP 10-325MG [[facility] 1 tab PO TID PRN 02/16/21 02/16/21 History 10-325] LORazepam [Ativan] 0.5 mg PO DAILY PRN 02/16/21 02/16/21 History Metoprolol Succinate (ER) [Toprol 100 mg PO DAILY 02/16/21 02/16/21 History XL] Sulfamethox-Tmp 800-160Mg [Bactrim 1 tab PO Q12HR 02/16/21 02/16/21 History DS 800-160 mg] Allergies Allergy/AdvReac Type Severity Reaction Status Date / Time nickel Allergy Rash/Hives Verified 02/16/21 17:39 Physical Exam Vitals: Vital Signs Temp Pulse Resp BP Pulse Ox 02/20/21 08:22 98.2 F 74 18 121/64 93 L 02/20/21 05:40 97.5 F L 79 16 162/60 94 L 02/19/21 20:23 98.5 F 72 18 146/77 94 L 02/19/21 20:00 72 18 02/19/21 12:32 97.5 F L 57 L 17 162/82 97 Intake and Output 02/19/21 02/20/21 02/20/21 22:59 06:59 14:59 Intake Total 100 Balance 100 Intake: Intake, IV Titration 100 Amount Cefepime 2 gm In Sodium 100 Chloride 0.9% 100 ml @ 25 mls/hr IVPB Q12HR [facility] Rx #:[id number] Other: Voiding Method Toilet Toilet # Voids 1 Weight 78.018 kg Results - Lab Results Most recent lab results Calcium 8.8 mg/dL (8.4-10.2) 02/18/21 06:14 02/18/21 06:14 02/19/21 05:36 Assessment and Plan Plan: Assessment: Excellent 1. Chronic kidney disease stage IIIB with baseline creatinine in the range of 1.2-1.4 secondary to diabetic kidney disease. GFR near baseline. 2. Left foot nonhealing wound status post debridement. On antibiotics. 3. Diabetes mellitus. 4. Peripheral vascular disease status post stenting of the right lower extremity. 5. Chronic systolic CHF with ejection fraction of 40-45%. Plan: Encourage oral intake. Avoid nephrotoxins. Check vancomycin level. Continue to monitor renal function and urine output. Cleared for PICC line placement in her left arm which she had a PICC placed in t he past. Thank you for the consultation. I will continue to follow patient with you during her hospital stay.
[2021-02-20] MEDS: DULoxetine HCL 60 MG CAPSULE.DR PO SCH (09:56)
[2021-02-20] MEDS: FERROUS SULFATE 325 MG TAB PO SCH (09:56)
[2021-02-20] MEDS: METOPROLOL SUCCINATE (ER) 100 MG TAB.ER.24H PO SCH (09:57)
[2021-02-20] MEDS: methylPREDNISolone 4 MG TAB TAPER PO SCH (09:58)
[2021-02-20] MEDS: CEFEPIME 2 GM in SODIUM CHLORIDE 0.9% 100 ML IVPB SCH (10:04)
[2021-02-20] MEDS: AMIODARONE 200 MG TAB PO SCH (10:10)
[2021-02-20] MEDS: DICLOFENAC SODIUM GEL 100 GM TUBE TOPICAL SCH ×4 (10:21→22:33)
[2021-02-20] MEDS ORDERED: LIDOCAINE 1% INJ 10MG/ML (20 ML MDV) SQ ONE (10:58)
--- NOTE | 2021-02-20 11:20 | IR ---
EXAMINATION TYPE: IR cvc insert >=5 years DATE OF EXAM: 02/20/2021 COMPARISON: NONE CLINICAL HISTORY: Infection Needs long-term intravenous access for antibiotics. PROCEDURE: Hand hygiene obtained with soap and water and alcohol-based hand rub. After informed consent, the skin overlying the left basilic vein was localized with ultrasound and no edith to be compressible and patent. An ultrasound image was obtained and submitted on the patient's c rutledge. The overlying skin was prepped and draped and Lidocaine was used for local anesthesia. A skin alexa was made with a scalpel. Access was gained to the vein under ultrasound guidance with a 21 gau ge needle and a 0.018 inch wire was advanced. Access site was dilated with Peel-Away sheath and cath eter tailored to the appropriate length and advanced such that the distal tip is at the cavoatrial ju nction. Spot image was obtained verifying placement. Catheter was fixed to the skin and a sterile d ressing was placed following hemostasis. Catheter was aspirated and flushed with saline. Patient wa s discharged in stable condition without complication.Maximal barrier technique is utilized. Ultraso und image is documented on the chart. Ultrasound used with sterile technique. Fluoro time and fluoroscopic images submitted to document procedure: 10 intraoperative C-arm images d ocument the procedure, 0.1 minutes fluoroscopy time IMPRESSION: STATUS POST ULTRASOUND AND FLUOROSCOPIC GUIDED PICC LINE PLACEMENT, READY FOR USE. THIS PROCEDURE WAS PERFORMED BY THE UNDERSIGNED.
[2021-02-20 12:19] LABS: Glucose,Whole Blood 96 mg/dL (75-99)
--- NOTE | 2021-02-20 13:10 | PN ---
PROGRESS NOTE DATE OF SERVICE: 02/20/2021 REASON FOR FOLLOWUP: Left diabetic foot infection with underlying osteomyelitis, acute, secondary to Streptococcus. INTERVAL HISTORY: The patient is afebrile. The patient is currently breathing comfortably. Denies having any chest pain or shortness of breath or cough. No nausea. No abdominal pain. Pain to the left foot is currently controlled. PHYSICAL EXAMINATION: Blood pressure is 121/64, pulse 74, temperature of 98.2. She is 93% on room air. General description is an elderly female up in the bed in no distress. Respiratory system: Unlabored breathing, clear to auscultation anteriorly. Heart S1, S2. Regular rate and rhythm. Abdomen soft, no tenderness. Left foot is currently dressed up. No obvious drainage on the dressing. LABS: Wound cultures are now showing Streptococcus species. The vancomycin trough is elevated. DIAGNOSTIC IMPRESSION AND PLAN: Patient with left diabetic foot infection with underlying acute osteomyelitis. Cultures have been positive for Streptococcus species. Antibiotic will be adjusted to Rocephin and Flagyl. She already got a PICC line. make sure the kidney function stays stable and continue with supportive care. MMODL / IJN: [id number] /
--- NOTE | 2021-02-20 14:59 | P.PN ---
Subjective Progress Note Date: 02/20/21 HISTORY OF PRESENT ILLNESS This is a 71-year-old female patient of Dr. Sanderson with past medical history of diabetes mellitus type 2, hypertension, hyperlipidemia, CVA in 2013 with no residuals, coronary artery disease status post 4 vessel CABG, bilateral carotid endarterectomies, mild intermittent asthma, osteomyelitis status post right great toe amputation 2014 and left toe amputation in, and right below-knee amputation June 2020 with revision on August [address] Gregory, patient had ST CA back in September 2020 ended up having angioplasty and stent placement for one of her graft from open heart surgery earlier. Patient has been doing well. Patient has been watch as an outpatient for left foot diabetic ulcer not healing well was on oral antibiotic for several months the size has been getting smaller she was changed to Bactrim 2 days ago she is also seen at the wound clinic she continued to have significant redness and worsening drainage, patient was seen her primary care physician today and was directed to [facility] for starting IV and IV antibiotic to be seen at the wound clinic possibly require debridement and further wound care with IV antibiotics. Sadly patient has 2 blister on the lateral side of her foot 1 close to the base of the fifth toe with an open area major 0.5 time 0.5 cm grade 2 ulcerated. Second one with the blister about one and half inch between the fifth toe and the lateral side of the ankle area with more water blister and open ulcer with a? Off exposure bone. Still having slight drainage. 02/17: Patient seen Dr. Gregory vascular today ended up having slight debridement and open the larger blister of the lateral side of the left foot with an open area still looks more exposed to the bone with more possibility of foster mellitus. Sed rate will be done awaiting for culture this point patient remain on Unasyn and vancomycin, was still be seen infectious disease continue current management and refer patient for 3 phase bone scan. 02/18: Patient was seen Dr. Mccabe yesterday who agreed keep patient on vancomycin with switch Unasyn to cefepime for better coverage on enterococcus. She is not running any fever or chills her sed rate came back quite bit high at 72 x-ray was order and patient will be going for bone scan tomorrow. Overall pain and discomfort and drainage is much better this point. 02/19: She is complaining of rheumatoid arthritis pain in her shoulders and hands and patient started on Voltaren gel and Medrol Dosepak. She's been afebrile, heart rate 57, blood pressure 162/82, pulse ox 97% on room air. Repeat blood work reveals INR of 0.9. Sodium 138, potassium 5, chloride 108, CO2 23, BUN 29 creatinine 1.26. Blood sugars are well-controlled at 123 -150. Wound cultures are in process, blood product culture no growth at 48 hours. She is undergoing bone scan today. She's been seen by Dr. Mccabe in Dr. Gregory. PICC line has been ordered for IV antibiotics, consult added for nephrology to clear patient for PICC line insertion. 02/20: The patient is found ambulating from the bathroom. She denies any new complaints. Yesterday, patient underwent bone scan which showed possible acute osteomyelitis in the first toe stump on the right. Possible acute osteomyelitis first and second toe stumps and in the region of the fifth metatarsal head on the left. PICC line has been ordered and patient is been cleared by nephrology for PICC line insertion which is been completed. IV antibiotics are waiting to be determined by Dr. Mccabe. Wound cultures are in progress. Case management is following and has made arrangements for home care and IV antibiotics. Anticipate discharge home tomorrow. REVIEW OF SYSTEMS Constitutional: No fever, no chills, no night sweats. No weight change. No weakness, fatigue or lethargy. No daytime sleepiness. EENT: No headache. No blurred vision or double vision, no loss of vision. No loss of Hearing, no ringing in the ears, no dizziness. No nasal drainage or congestion. No epistaxis. No sore throat. Lungs: No shortness of breath, cough, no sputum production. No wheezing. Cardiovascular: No chest pain, no lower extremity edema. No palpitations. No paroxysmal nocturnal dyspnea. No orthopnea. No lightheadedness or dizziness. No syncopal episodes. Abdominal: No abdominal pain. No nausea, vomiting. No diarrhea. No constipation. No bloody or tarry stools.. No loss of appetite. Genitourinary: No dysuria, increased frequency, urgency. No urinary retention. Musculoskeletal: No myalgias. No muscle weakness, no gait dysfunction, no frequent falls. No back pain. No neck pain. Reports joint pain. Integumentary: No wounds, no lesions. No rash or pruritus. No unusual bruising. No change in hair or nails. Significant to ulcer on the lateral side of the left foot, patient had amputation of the first and second toes of the left foot and amputation of the right first toe. Neurologic: No aphasia. No facial droop. No change in mentation. No head injury. No headache. No paralysis. No paresthesia. Psychiatric: No depression. No anxiety. No mood swings. Endocrine: No abnormal blood sugars. No weight change. PHYSICAL EXAMINATION Gen: This is a 71 year-old obese female. She is ambulating in her room without signs of distress. HEENT: Head is atraumatic, normocephalic. Pupils equal, round. Sclerae is anicteric. NECK: Supple. No JVD. No lymphadenopathy. No thyromegaly. LUNGS: Clear to auscultation. No wheezes or rhonchi. No intercostal ret ractions. HEART: Regular rate and rhythm. No murmur. ABDOMEN: Soft. Bowel sounds are present. No masses. No tenderness. EXTREMITIES: No pedal edema. No calf tenderness. Right great toe amputation, left toe amputation significant non-healing ulcer in the left foot on the lateral side that is to area one of the base of the fifth toe measure 11 cm another one about an inch from the fifth toe between the 2 and ankle area with an open spot and ulcerated area more deeper with slight exposure bone. NEUROLOGICAL: Patient is awake, alert and oriented x3. Cranial nerves 2 through 12 are grossly intact. ASSESSMENT AND PLAN 1. Left foot nonhealing diabetic foot ulcers with possible osteomyelitis : Antibiotic was changed to vancomycin and ceftriaxone. Culture still pending at this point. PICC line inserted. 2. Diabetic and peripheral vascular disease: Continue to have ulcer and severe symptoms of both feet worse on left than the right side continue current ma nagement for now. 3. Diabetes mellitus type 2, insulin requiring, uncontrolled with hyperglycemia. New current dose of insulin patient blood sugars much better this morning. 4. Coronary artery disease with previous history of 4 vessel CABG. Patient's medical staff services coordinator is Dr. Brown at [facility]. Patient had an acute inferior ST elevation myocardial infarction post heart catheter and stent placement of the SVG to the RCA which was done in September 2020. Still on secondary prevention titrate medication. 5. Peripheral vascular disease with previous stenting of the right lower extremity. Patient regularly follows with Dr. Gregory. 6. Chronic systolic heart failure, stable. Continue Lasix 20 mg daily, losartan and Toprol-XL. 7. COPD. Continue DuoNeb treatment, Pulmicort, Singulair. 8. History of CVA, stable. No major residual. 9. Hyperlipidemia. Continue atorvastatin 80 mg at bedtime not having any side effect. 10. Hypertension. Continue losartan and 50 mg daily. With blood pressure was controlled. 11. Recurrent depression. Continue Cymbalta 60 mg daily 12> rheumatoid arthritis. Patient will be started on oral steroids and Voltaren gel CODE STATUS: Full code. DISCHARGE PLAN Home with home care and IV antibiotics Impression and plan of care have been directed as dictated by the signing physician. Emily Higginbotham nurse practitioner acting as scribe for signing physician. Objective - Vital Signs Vital signs: Vital Signs Temp 97.6 F 02/20/21 12:11 Pulse 61 02/20/21 12:11 Resp 17 02/20/21 12:11 BP 136/61 02/20/21 12:11 Pulse Ox 95 02/20/21 12:11 Intake & Output 02/19/21 02/20/21 02/20/21 18:59 06:59 18:59 Intake Total 100 Balance 100 Weight 78.018 kg Intake: Intake, IV Titration 100 Amount Cefepime 2 gm In Sodium 100 Chloride 0.9% 100 ml @ 25 mls/hr IVPB Q12HR [facility] Rx #:[id number] Other: Voiding Method Toilet Toilet # Voids 1 - Labs CBC & Chem 7: 02/18/21 06:14 02/19/21 05:36 Labs: Abnormal Lab Results - Last 24 Hours (Table) 02/19/21 02/19/21 02/20/21 Range/Units 17:12 20:43 07:01 POC Glucose (mg/dL) 196 H 166 H 182 H (75-99) mg/dL Microbiology - Last 24 Hours (Table) 02/17/21 10:00 Gram Stain - Final Foot - Left Tissue Culture - Final Alpha Hemolytic Streptococcus 02/16/21 17:25 Blood Culture - Preliminary Blood No Growth after 72 hours 02/17/21 10:00 Gram Stain - Final Foot - Left Wound Culture - Final
[2021-02-20] MEDS ORDERED: VANCOMYCIN TROUGH DUE 1 EACH MISC MISCELLANE ONE (16:30)
[2021-02-20] MEDS: metroNIDAZOLE 500 MG TAB PO SCH ×2 (17:05→22:32)
[2021-02-20 18:00] LABS: Glucose,Whole Blood 261 mg/dL (75-99)
[2021-02-20 20:01] LABS: Glucose,Whole Blood 335 mg/dL (75-99)
[2021-02-20] MEDS: MONTELUKAST 10 MG TAB PO SCH (20:13)
[2021-02-20] MEDS: ATORVASTATIN 80 MG TAB PO SCH (20:13)
[2021-02-21 06:21] LABS: African American GFR (CKD) 64 (>60 ml/min/1.73 sqM); Anion Gap 10 mmol/L; Blood Urea Nitrogen 44 mg/dL (7-17); Calcium 9.4 mg/dL (8.4-10.2); Carbon Dioxide 18 mmol/L (22-30); Chloride 110 mmol/L (98-107); Glucose 147 mg/dL (74-99); Non-African American GFR(CKD) 56 (>60 ml/min/1.73 sqM); Potassium 4.8 mmol/L (3.5-5.1); Sodium 138 mmol/L (137-145)
[2021-02-21 07:36] LABS: Glucose,Whole Blood 118 mg/dL (75-99)
[2021-02-21] MEDS: INSULIN DETEMIR (LEVEMIR) 100 UNIT/ML SYR SQ SCH (08:44)
[2021-02-21] MEDS: INSULIN ASPART (NovoLOG) 100 UNIT/ML VIAL SQ SCH (08:45)
[2021-02-21] MEDS: FERROUS SULFATE 325 MG TAB PO SCH (08:51)
[2021-02-21] MEDS: AMIODARONE 200 MG TAB PO SCH (08:51)
[2021-02-21] MEDS: METOPROLOL SUCCINATE (ER) 100 MG TAB.ER.24H PO SCH (08:51)
[2021-02-21] MEDS: DULoxetine HCL 60 MG CAPSULE.DR PO SCH (08:51)
[2021-02-21] MEDS: metroNIDAZOLE 500 MG TAB PO SCH (08:51)
[2021-02-21] MEDS ORDERED: methylPREDNISolone 4 MG TAB TAPER PO SCH (09:00)
--- NOTE | 2021-02-21 09:11 | P.DS ---
Providers Date of admission: 02/16/21 17:03 Expected date of discharge: 02/21/21 Attending physician: Mikel Delong Consults: 02/17/21 00:05 Consult Physician Routine Consulting Provider: Rustam Gregory Consult Reason/Comments: Diabetic foot ulcer Do you want consulting provider notified?: Yes, Notify in am 02/17/21 00:06 Consult Physician Routine Consulting Provider: Singh Mccabe Consult Reason/Comments: Diabetic foot ulcer Do you want consulting provider notified?: Yes, Notify in am 02/19/21 13:05 Consult Physician Routine Consulting Provider: Choco Felix Consult Reason/Comments: clearance for picc Do you want consulting provider notified?: Yes Primary care physician: Anna Jaques Hospital Course: HISTORY OF PRESENT ILLNESS This is a 71-year-old female patient of Dr. Sanderson with past medical history of diabetes mellitus type 2, hypertension, hyperlipidemia, CVA in 2013 with no residuals, coronary artery disease status post 4 vessel CABG, bilateral carotid endarterectomies, mild intermittent asthma, osteomyelitis status post right great toe amputation 2014 and left toe amputation in, and right below-knee amputation June 2020 with revision on August [address] Gregory, patient had ST MA back in September 2020 ended up having angioplasty and stent placement for one of her graft from open heart surgery earlier. Patient has been doing well. Patient has been watch as an outpatient for left foot diabetic ulcer not healing well was on oral antibiotic for several months the size has been getting smaller she was changed to Bactrim 2 days ago she is also seen at the wound clinic she continued to have significant redness and worsening drainage, patient was seen her primary care physician today and was directed to [facility] for starting IV and IV antibiotic to be seen at the wound clinic possibly require debridement and further wound care with IV antibiotics. Sadly patient has 2 blister on the lateral side of her foot 1 close to the base of the fifth toe with an open area major 0.5 time 0.5 cm grade 2 ulcerated. Second one with the blister about one and half inch between the fifth toe and the lateral side of the ankle area with more water blister and open ulcer with a? Off exposure bone. Still having slight drainage. 02/17: Patient seen Dr. Gregory vascular today ended up having slight debridement and open the larger blister of the lateral side of the left foot with an open area still looks more exposed to the bone with more possibility of foster mellitus. Sed rate will be done awaiting for culture this point patient remain on Unasyn and vancomycin, was still be seen infectious disease continue current management and refer patient for 3 phase bone scan. 02/18: Patient was seen Dr. Mccabe yesterday who agreed keep patient on vancomycin with switch Unasyn to cefepime for better coverage on enterococcus. She is not running any fever or chills her sed rate came back quite bit high at 72 x-ray was order and patient will be going for bone scan tomorrow. Overall pain and discomfort and drainage is much better this point. 02/19: She is complaining of rheumatoid arthritis pain in her shoulders and hands and patient started on Voltaren gel and Medrol Dosepak. She's been afebrile, heart rate 57, blood pressure 162/82, pulse ox 97% on room air. Repeat blood work reveals INR of 0.9. Sodium 138, potassium 5, chloride 108, CO2 23, BUN 29 creatinine 1.26. Blood sugars are well-controlled at 123 -150. Wound cultures are in process, blood product culture no growth at 48 hours. She is undergoing bone scan today. She's been seen by Dr. Mccabe in Dr. Gregory. PICC line has been ordered for IV antibiotics, consult added for nephrology to clear patient for PICC line insertion. 02/20: The patient is found ambulating from the bathroom. She denies any new complaints. Yesterday, patient underwent bone scan which showed possible acute osteomyelitis in the first toe stump on the right. Possible acute osteomyelitis first and second toe stumps and in the region of the fifth metatarsal head on the left. PICC line has been ordered and patient is been cleared by nephrology for PICC line insertion which is been completed. IV antibiotics are waiting to be determined by Dr. Mccabe. Wound cultures are in progress. Case management is following and has made arrangements for home care and IV antibiotics. Anticipate discharge home tomorrow. 02/21: Line was inserted yesterday by IR. BUN 44 creatinine 1.01. Blood sugars are running anywhere between [address] Mccabe is recommending Rocephin and Flagyl and prescriptions have been sent/given to locker room manager. Patient denies having any nausea or vomiting, no abdominal pain. She does have a cough which Mucinex is on. Patient will be discharged home today in stable condition. DISCHARGE DIAGNOSES 1. Left foot nonhealing diabetic foot ulcers with osteomyelitis. 2. Diabetic and peripheral vascular disease. 3. Diabetes mellitus type 2, insulin requiring, uncontrolled with hyperglycemia. 4. Coronary artery disease with previous history of 4 vessel CABG. 5. Peripheral vascular disease with previous stenting of the right lower extremity. 6. Chronic systolic heart failure, stable. 7. COPD. 8. History of CVA, stable. 9. Hyperlipidemia. 10. Hypertension. 11. Recurrent depression. 12. rheumatoid arthritis. DISCHARGE PLAN Home with [facility] Care and IV Abx Impression and plan of care have been directed as dictated by the signing physician. Emily Higginbotham nurse practitioner acting as scribe for signing physician. Patient Condition at Discharge: Stable Plan - Discharge Summary Discharge Rx Participant: No New Discharge Prescriptions: New Collagenase [Santyl] 1 applic TOPICAL DAILY gm metroNIDAZOLE [Flagyl] 500 mg PO TID #126 tab cefTRIAXone [Rocephin] 2 gm IVPB Q24HR #42 each methylPREDNISolone [Medrol Dose Pack] 4 mg PO DIRECTED #1 packet guaiFENesin-DM 600/30MG [Mucinex Dm] 1 tab PO Q12HR #14 tab Continue Nitroglycerin Sl Tabs [Nitrostat] 0.4 mg SL Q5M PRN PRN Reason: Chest Pain Abatacept [Orencia] 125 mg SQ WE Albuterol Sulfate [Proair Hfa] 2 puff INHALATION RT-Q6H PRN PRN Reason: Shortness Of Breath traMADol HCL 50 mg PO BID PRN PRN Reason: Pain Insulin Glargine,Hum.rec.anlog [Lantus Solostar Pen] 15 unit SQ BID #0 Insulin Aspart [NovoLOG Flexpen] 16 units SQ AC-BID Atorvastatin [Lipitor] 80 mg PO HS #90 tab ALPRAZolam [Xanax] 0.25 mg PO DAILY PRN PRN Reason: Anxiety Amiodarone [Cordarone] 200 mg PO DAILY Ferrous Sulfate [Iron (65 MG Elemental)] 325 mg PO DAILY HYDROcodone/APAP 10-325MG [Vass 10-325] 1 tab PO TID PRN PRN Reason: Pain LORazepam [Ativan] 0.5 mg PO DAILY PRN PRN Reason: Anxiety Metoprolol Succinate (ER) [Toprol XL] 100 mg PO DAILY Montelukast Sodium [Singulair] 10 mg PO HS DULoxetine HCL [Cymbalta] 60 mg PO DAILY Cyclobenzaprine [Flexeril] 10 mg PO TID PRN PRN Reason: Muscle Spasm Discontinued Sulfamethox-Tmp 800-160Mg [Bactrim DS 800-160 mg] 1 tab PO Q12HR Discharge Medication List Nitroglycerin Sl Tabs [Nitrostat] 0.4 mg SL Q5M PRN 05/02/15 [History] Abatacept [Orencia] 125 mg SQ WE 05/07/19 [History] Albuterol Sulfate [Proair Hfa] 2 puff INHALATION RT-Q6H PRN 06/16/20 [History] traMADol HCL 50 mg PO BID PRN 06/16/20 [History] Insulin Glargine,Hum.rec.anlog [Lantus Solostar Pen] 15 unit SQ BID #0 06/26/20 [Rx] Montelukast Sodium [Singulair] 10 mg PO HS 07/15/20 [History] Cyclobenzaprine [Flexeril] 10 mg PO TID PRN 08/29/20 [History] DULoxetine HCL [Cymbalta] 60 mg PO DAILY 08/29/20 [History] Insulin Aspart [NovoLOG Flexpen] 16 units SQ AC-BID 08/29/20 [History] Atorvastatin [Lipitor] 80 mg PO HS #90 tab 09/13/20 [Rx] ALPRAZolam [Xanax] 0.25 mg PO DAILY PRN 02/16/21 [History] Amiodarone [Cordarone] 200 mg PO DAILY 02/16/21 [History] Ferrous Sulfate [Iron (65 MG Elemental)] 325 mg PO DAILY 02/16/21 [History] HYDROcodone/APAP 10-325MG [Vass 10-325] 1 tab PO TID PRN 02/16/21 [History] LORazepam [Ativan] 0.5 mg PO DAILY PRN 02/16/21 [History] Metoprolol Succinate (ER) [Toprol XL] 100 mg PO DAILY 02/16/21 [History] Collagenase [Santyl] 1 applic TOPICAL DAILY gm 02/21/21 [Rx] cefTRIAXone [Rocephin] 2 gm IVPB Q24HR #42 each 02/21/21 [Rx] guaiFENesin-DM 600/30MG [Mucinex Dm] 1 tab PO Q12HR #14 tab 02/21/21 [Rx] methylPREDNISolone [Medrol Dose Pack] 4 mg PO DIRECTED #1 packet 02/21/21 [Rx] metroNIDAZOLE [Flagyl] 500 mg PO TID #126 tab 02/21/21 [Rx] Follow up Appointment(s)/Referral(s): [facility], [NON-STAFF] - 1 Week [facility]Infusion [NON-STAFF] - 1 Week Jacob Sanderson DO [Primary Care Provider] - 1 Week Singh Mccabe MD [STAFF PHYSICIAN] - 3 Weeks Activity/Diet/Wound Care/Special Instructions: Schedule an appointment with Dr. [facility] a week from Friday, February 26, 2021 Discharge Disposition: HOME WITH HOME HEALTH SERVICES
--- NOTE | 2021-02-21 10:10 | P.PN ---
Subjective Patient is seen in follow-up for acute kidney injury and chronic kidney disease. Renal function better. Oral intake fair. Good urine output. Vital signs are stable. General: The patient appeared well nourished and normally developed. HEENT: Head exam is unremarkable. Neck is without jugular venous distension. LUNGS: Breath sounds decreased. HEART: Rate and Rhythm are regular. ABDOMEN: Soft, no distention. EXTREMITITES: No edema. No drainage noted. Objective - Vital Signs Vital signs: Vital Signs Temp 97.6 F 02/21/21 07:10 Pulse 69 02/21/21 07:10 Resp 18 02/21/21 07:10 BP 143/70 02/21/21 07:10 Pulse Ox 94 L 02/21/21 07:10 Intake & Output 02/20/21 02/21/21 02/21/21 18:59 06:59 18:59 Intake Total 600 Balance 600 Weight 78.018 kg Intake: Oral 600 Other: Voiding Method Toilet # Voids 3 1 - Labs CBC & Chem 7: 02/18/21 06:14 02/21/21 05:11 Labs: Abnormal Lab Results - Last 24 Hours (Table) 02/20/21 02/20/21 02/21/21 Range/Units 17:59 20:00 05:11 Chloride 110 H (98-107) mmol/L Carbon Dioxide 18 L (22-30) mmol/L BUN 44 H (7-17) mg/dL Glucose 147 H (74-99) mg/dL POC Glucose (mg/dL) 261 H 335 H (75-99) mg/dL 02/21/21 Range/Units 07:33 Chloride (98-107) mmol/L Carbon Dioxide (22-30) mmol/L BUN (7-17) mg/dL Glucose (74-99) mg/dL POC Glucose (mg/dL) 118 H (75-99) mg/dL Microbiology - Last 24 Hours (Table) 02/16/21 17:25 Blood Culture - Preliminary Blood No Growth after 96 hours 02/17/21 10:00 Gram Stain - Final Foot - Left Tissue Culture - Final Alpha Hemolytic Streptococcus Assessment and Plan Plan: Assessment: 1. Chronic kidney disease stage IIIB with baseline creatinine in the range of 1.2-1.4 secondary to diabetic kidney disease. GFR at baseline. 2. Left foot nonhealing wound status post debridement. On antibiotics. 3. Diabetes mellitus. 4. Peripheral vascular disease status post stenting of the right lower extremity. 5. Chronic systolic CHF with ejection fraction of 40-45%. 6. Metabolic acidosis secondary to chronic kidney disease. Plan: Encourage oral intake. Avoid nephrotoxins. Vancomycin level 29.8 dated 02/20/2021. Dose to be adjusted for renal function. Continue to monitor renal function and urine output. Add oral bicarb. Follow-up outpatient in 1-2 weeks.
[2021-02-21] MEDS: DICLOFENAC SODIUM GEL 100 GM TUBE TOPICAL SCH (10:33)
[2021-02-21] MEDS: COLLAGENASE 250 UNIT/GM OINTMENT 30 GM TUBE TOPICAL SCH (11:03)
[2021-02-21 12:08] LABS: Glucose,Whole Blood 84 mg/dL (75-99)
[2021-02-21 12:41] VITALS: BP 164/75; PULSE 67; RESP 19; TEMP 97.2
--- NOTE | 2021-02-21 16:10 | PN ---
PROGRESS NOTE DATE OF SERVICE: 02/21/2021 REASON FOR FOLLOWUP: Left diabetic foot infection with underlying acute osteomyelitis secondary to . INTERVAL HISTORY: The patient is afebrile. The patient is currently breathing comfortably. Denies any chest pain or shortness of breath or cough. No abdominal pain. No pain to the left foot area. PHYSICAL EXAMINATION: Blood pressure 154/75, pulse of 67, temperature is 97.2, she is 92% on room air. General description is an elderly female up in the bed in no distress. Respiratory system: Unlabored breathing, clear to auscultation anteriorly. Heart S1, S2. Regular rate and rhythm. Abdomen soft, no tenderness. Left foot currently dressed. No obvious drainage on the dressing. LABS: BUN of 44, creatinine is 1.01. DIAGNOSTIC IMPRESSION AND PLAN: Patient with left foot diabetic foot infection with underlying osteomyelitis. . Plan is for Rocephin 2 grams daily along with oral Flagyl and close outpatient followup. Continue supportive care. MMODL / IJN: [id number] /
[2021-02-21] MEDS ORDERED: NON FORMULARY DRUG (Abatacept [Orencia] 125 MG/ML Syringe) SQ SCH (21:55)
[2021-02-22] MEDS ORDERED: SODIUM BICARBONATE TAB 650 MG TAB PO SCH (09:00)
--- NOTE | 2021-02-23 09:27 | CDI ---
Documentation Clarification Form Date: 02/19/2021 10:35:00 AM From: Abbi Lewis RN, CCDS Admit Date: 02/16/2021 05:03:00 PM Patient Name: Tracee Price Visit Number: [id number] Discharge Date: 02/21/2021 01:58:00 PM ATTENTION: The Clinical Documentation Specialists (CDI) and [facility] Coding Staff appreciate your assistance in clarifying documentation. Please respond to the clarification below the line at the bottom and electronically sign. The CDI & [facility] Coding staff will review the response and follow-up if needed. Please note: Queries are made part of the Legal Health Record. If you have any questions, please contact the author of this message via ITS. Dr. Rustam Fry debridement is documented in the procedure note on 02/17/21. Additional clarification regarding the procedure technique is requested. History/Risk Factors: Diabetes mellitus, Hypertension, CVA Clinical Indicators: 71-year-old female developed a blister and redness on the later aspect of the foot. n 02/17/21 she had a debridement. 02/17 procedure note: Using a knife, we debrided the wound down to subcutaneous tissue and fat and all the devitalized tissue was removed, sent for culture Treatment: 02/17 debridement left foot Vancomycin HCL 1,500 MG IVPB Unasyn 3 GM IVPB (02/16) Please clarify the type of technique used in the procedure: [ ] Excisional debridement (the removal of necrotic, devitalized tissue or slough by means of cutting away of tissue) [ ] Non-excisional debridement (the removal of necrotic, devitalized tissue or slough by means of flushing, brushing, or washing. (Irrigation) [ ] Other; please specify [ ] Unable to determine Five elements required for accurate and compliant documentation of a debridement: Technique used (e.g., excisional, excised, cutting, brushing, jet lavage etc.) Instrument(s) used (e.g., scalpel, curette, etc.) Nature of the tissue removed (e.g., necrotic, devitalized tissues, non-viable tissue, etc.) Appearance and size of the wound (e.g., down to fresh bleeding tissue, 7cm x 10cm, etc.) Depth of the debridement* (e.g., skin, subcutaneous tissue, fascia, muscle, bone, etc.) (Template Last Revised: June 2020) MTDD
== END 2021-02-21 13:58 | disposition home health service (06) | DRG 623 ==
LOC: EC 13:46 → 5NMEDONC 17:03
PROVIDERS: ADMIT Internal Medicine Geriatric Medicine; ATTEND Internal Medicine Geriatric Medicine
PROC: 0JBR0ZZ Excision of Left Foot Subcutaneous Tissue and Fascia, Open Approach (ICD-10-PCS; principal; 2021-02-17)
PROC: 02HV33Z Insertion of Infusion Device into Superior Vena Cava, Percutaneous Approach (ICD-10-PCS; 2021-02-20)
DX: E11.69 Type 2 diabetes mellitus with other specified complication (principal); E87.2 Acidosis; F33.9 Major depressive disorder, recurrent, unspecified; I13.0 Hypertensive heart and chronic kidney disease with heart failure and stage 1 through stage 4 chronic kidney disease, or unspecified chronic kidney disease; I50.22 Chronic systolic (congestive) heart failure; L03.116 Cellulitis of left lower limb; M86.172 Other acute osteomyelitis, left ankle and foot; E11.621 Type 2 diabetes mellitus with foot ulcer; E11.51 Type 2 diabetes mellitus with diabetic peripheral angiopathy without gangrene; E11.40 Type 2 diabetes mellitus with diabetic neuropathy, unspecified; E11.22 Type 2 diabetes mellitus with diabetic chronic kidney disease; E11.628 Type 2 diabetes mellitus with other skin complications; J44.9 Chronic obstructive pulmonary disease, unspecified; B95.4 Other streptococcus as the cause of diseases classified elsewhere; E11.65 Type 2 diabetes mellitus with hyperglycemia; Z79.4 Long term (current) use of insulin; L97.529 Non-pressure chronic ulcer of other part of left foot with unspecified severity; M06.9 Rheumatoid arthritis, unspecified; N17.9 Acute kidney failure, unspecified; N18.32 Chronic kidney disease, stage 3b; J45.20 Mild intermittent asthma, uncomplicated; S80.822A Blister (nonthermal), left lower leg, initial encounter; Z20.822 Contact with and (suspected) exposure to COVID-19; Z95.820 Peripheral vascular angioplasty status with implants and grafts; I25.10 Atherosclerotic heart disease of native coronary artery without angina pectoris; E78.5 Hyperlipidemia, unspecified; Z80.1 Family history of malignant neoplasm of trachea, bronchus and lung; I25.2 Old myocardial infarction; Z82.49 Family history of ischemic heart disease and other diseases of the circulatory system; Z79.899 Other long term (current) drug therapy; Z83.3 Family history of diabetes mellitus; Z86.73 Personal history of transient ischemic attack (TIA), and cerebral infarction without residual deficits; Z87.891 Personal history of nicotine dependence; Z89.511 Acquired absence of right leg below knee; Z89.422 Acquired absence of other left toe(s); Z95.1 Presence of aortocoronary bypass graft; Z95.5 Presence of coronary angioplasty implant and graft; Z87.01 Personal history of pneumonia (recurrent); Z98.51 Tubal ligation status; Z90.89 Acquired absence of other organs; Z98.42 Cataract extraction status, left eye; Z98.41 Cataract extraction status, right eye; Z98.890 Other specified postprocedural states
CPT/HCPCS: 36573; 78315; 80048; 80051; 80053; 80202; 82565; 83735; 84520; 85025; 85027; 85610; 85652; 87040; 87070; 87075; 87205; 87635; 99284

== ENCOUNTER 2021-05-09 22:01 | Emergency (ER) | payer MEDICARE, OTHER ==
--- NOTE | 2021-05-09 22:16 | ED ---
Fall HPI - General Stated Complaint: Fall Time Seen by Provider: 05/09/21 22:06 - History of Present Illness Initial Comments: This is a pleasant 71-year-old female with a history of asthma, coronary artery disease, heart failure, COPD, previous CVA, diabetes mellitus, hypertension, hyperlipidemia, and rheumatoid arthritis. Patient presents today after falling at a local custodial. Patient states she was sitting on the toilet and she reached down to grab her brief and slipped off the toilet. Patient states she struck the back of her head. Patient stating that she recalls the entire event. There was no loss of consciousness, no nausea or vomiting, patient states she was sent for evaluation. Patient denying any pain. No other injuries. No neck pain. Patient had no preceding symptomology. No headache, no fever or chills, no changes in vision or hearing, no sore throat or difficulty with speech, no neck pain, no chest pain or shortness of breath, no abdominal pain, no nausea or vomiting, no changes in urination or bowel movements, no numbness or tingling, no extremity pain, no skin rashes or lesions. Patient states she usually uses a walker to ambulate. - Related Data Home Medications Medication Instructions Recorded Confirmed Nitroglycerin Sl Tabs [Nitrostat] 0.4 mg SL Q5M PRN 05/02/15 02/16/21 Abatacept [Orencia] 125 mg SQ WE 05/07/19 02/16/21 Albuterol Sulfate [Proair Hfa] 2 puff INHALATION RT-Q6H PRN 06/16/20 02/16/21 traMADol HCL 50 mg PO BID PRN 06/16/20 02/16/21 Montelukast Sodium [Singulair] 10 mg PO HS 07/15/20 02/16/21 Cyclobenzaprine [Flexeril] 10 mg PO TID PRN 08/29/20 02/16/21 DULoxetine HCL [Cymbalta] 60 mg PO DAILY 08/29/20 02/16/21 Insulin Aspart [NovoLOG Flexpen] 16 units SQ AC-BID 08/29/20 02/16/21 ALPRAZolam [Xanax] 0.25 mg PO DAILY PRN 02/16/21 02/16/21 Amiodarone [Cordarone] 200 mg PO DAILY 02/16/21 02/16/21 Ferrous Sulfate [Iron (65 MG 325 mg PO DAILY 02/16/21 02/16/21 Elemental)] HYDROcodone/APAP 10-325MG [[place] 1 tab PO TID PRN 02/16/21 02/16/21 10-325] LORazepam [Ativan] 0.5 mg PO DAILY PRN 02/16/21 02/16/21 Metoprolol Succinate (ER) [Toprol 100 mg PO DAILY 02/16/21 02/16/21 XL] Previous Rx's Medication Instructions Recorded Insulin Glargine,Hum.rec.anlog 15 unit SQ BID #0 06/26/20 [Lantus Solostar Pen] Atorvastatin [Lipitor] 80 mg PO HS #90 tab 09/13/20 Collagenase [Santyl Ointment] 1 applic TOPICAL DAILY gm 02/21/21 cefTRIAXone [Rocephin] 2 gm IVPB Q24HR #42 each 02/21/21 guaiFENesin-DM 600/30MG [Mucinex 1 tab PO Q12HR #14 tab 02/21/21 Dm] methylPREDNISolone [Medrol Dose 4 mg PO DIRECTED #1 packet 02/21/21 Pack] metroNIDAZOLE [Flagyl] 500 mg PO TID #126 tab 02/21/21 Allergies Allergy/AdvReac Type Severity Reaction Status Date / Time nickel Allergy Rash/Hives Verified 02/16/21 17:39 Review of Systems ROS Statement: Those systems with pertinent positive or pertinent negative responses have been documented in the HPI. ROS Other: All systems not noted in ROS Statement are negative. Past Medical History Past Medical History: Asthma, Coronary Artery Disease (CAD), Heart Failure, COPD, CVA/TIA, Diabetes Mellitus, Hyperlipidemia, Hypertension, Pneumonia, Rheumatoid Arthritis (RA) Additional Past Medical History / Comment(s): left GREAT TOE WOUND, with current dressing, partial amputation on 06/28/20. going to hyperbaric chamber 5 days a week, PICC line right arm Last Myocardial Infarction Date:: 2014 History of Any Multi-Drug Resistant Organisms: None Reported Past Surgical History: Adenoidectomy, Appendectomy, Coronary Bypass/CABG, Heart Catheterization, Tonsillectomy, Tubal Ligation Additional Past Surgical History / Comment(s): Open heart on April 13 2015, cabg X4, bilateral carotid endarterectomies,. Right great toe amputation 2015. stent in right leg above knee, elke cataracts. left toe ambutation, 06/18/20 Past Anesthesia/Blood Transfusion Reactions: Previous Problems w/ Anesthesia Additional Past Anesthesia/Blood Transfusion Reaction / Comment(s): diff breathing afterwards Additional Past Alcohol Use History / Comment(s): STARTED SMOKING AT AGE 17, SMOKED 1 OR MORE PPD, QUIT 1982[facility] in [facility] in October [facility]. 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 She is currently living at home with her , one cat, 2 dogs. - Past Family History Father Family Medical History: Coronary Artery Disease (CAD), CVA/TIA, Diabetes Mellitus Mother Additional Family Medical History / Comment(s): "spot on the lung" General Exam - General Exam Comments Initial Comments: Obese elderly female in no acute distress. Patient does not appear to be ill or toxic. Vital signs are reviewed. Cranial nerves II through XII intact. Patient is alert and oriented. General appearance: alert, in no apparent distress Head exam: Present: atraumatic, normocephalic, normal inspection Eye exam: Present: normal appearance, PERRL, EOMI. Absent: scleral icterus, conjunctival injection, nystagmus, periorbital swelling, periorbital tenderness Pupils: Present: normal accommodation ENT exam: Present: normal exam, mucous membranes moist Neck exam: Present: normal inspection, full ROM. Absent: tenderness, meningismus, lymphadenopathy Respiratory exam: Present: normal lung sounds bilaterally. Absent: respiratory distress, wheezes, rales, rhonchi, stridor Cardiovascular Exam: Present: regular rate, normal rhythm, normal heart sounds. Absent: systolic murmur, diastolic murmur, rubs, gallop, clicks GI/Abdominal exam: Present: soft, normal bowel sounds. Absent: distended, tenderness, guarding, rebound, rigid Extremities exam: Present: normal inspection, full ROM, normal capillary refill. Absent: tenderness, pedal edema, joint swelling, calf tenderness Back exam: Present: normal inspection Neurological exam: Present: alert, oriented X3, CN II-XII intact, other (Sukhwinder Coma Scale is 15. Patient has no focal neurologic deficits.) Psychiatric exam: Present: normal affect, normal mood. Absent: anxious, flat affect Skin exam: Present: warm, dry, intact, normal color. Absent: rash Course Vital Signs 05/09/21 22:17 Temperature 97.0 F L Pulse Rate 85 Respiratory 16 Rate Blood Pressure 116/40 O2 Sat by Pulse 93 L Oximetry - Reevaluation(s) Reevaluation #1: 05/09/21 23:25 Medical record is reviewed Patient was alert and oriented 4, cranial nerves II through XII intact. Patient was never in any distress throughout the course of stay here in the ER. Patient is informed of results and questions answered Patient in no distress Medical Decision Making - Medical Decision Making Computed tomography scan of the brain and cervical spine without contrast be ordered due to the patient's age of 71. Patient does not appear to have any other injuries. No preceding symptomology. Plan for imaging and likely discharge. The case was discussed in detail with ED attending physician. Presentation, findings, treatment plan discussed in detail. Patient computed tomography scan shows no acute findings. I did review these films myself. Discussed head injury instructions in detail. Return parameters discussed. Patient released in stable condition. Neurologically intact. - Radiology Data Radiology results: report reviewed, image reviewed Disposition Clinical Impression: Closed head injury, Fall Disposition: HOME SELF-CARE Condition: Good Instructions (If sedation given, give patient instructions): Fall Prevention for Older Adults (ED), Head Injury (ED) Additional Instructions: Usual walker at all times. Follow-up with the facility physician tomorrow.Follow-up with your regular physician as directed. Return to the ER immediately if any symptoms worsen, new symptoms arise, or any other problems develop. Is patient prescribed a controlled substance at d/c from ED?: No Referrals: Jacob Sanderson DO [Primary Care Provider] - 1-2 days Time of Disposition: 23:26
[2021-05-09 22:20] VITALS: PULSE 85; RESP 16; TEMP 97
[2021-05-09 22:23] VITALS: BP 116/40
--- NOTE | 2021-05-09 23:14 | CT ---
EXAMINATION TYPE: CT brain kunal wo con DATE OF EXAM: 05/09/2021 COMPARISON: CT brain 03/01/2019 HISTORY: fall, hit head, no LOC CT DLP: 1483.5 mGycm Automated exposure control for dose reduction was used. Images of the brain and cervical spine obtained without contrast. There is a 4 cm wedge-shaped area of hypodensity right posterior temporal lobe consistent with old in farct and not changed compared to the old exam. There is no mass effect or midline shift. There is no sign of intracranial hemorrhage. There is some cerebral cortical atrophy. The calvarium is intact. S kull base is intact. There is normal aeration of the mastoid sinuses. The cervical vertebra show some straightening. There is mild narrowing of C6-7 disc space. Posterior elements are intact. Facet joints are intact. There is no compression fracture. Prevertebral soft tis sues are intact. IMPRESSION: Mild degenerative disc changes in the lower cervical spine. No fracture. 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 Cerebral atrophy. No acute intracranial abnormality.
== END 2021-05-09 23:42 | disposition home or self-care (01) ==
LOC: EC 22:01
DX: S09.90XA Unspecified injury of head, initial encounter (principal); E11.9 Type 2 diabetes mellitus without complications; I11.0 Hypertensive heart disease with heart failure; I50.9 Heart failure, unspecified; I25.10 Atherosclerotic heart disease of native coronary artery without angina pectoris; J44.9 Chronic obstructive pulmonary disease, unspecified; E78.5 Hyperlipidemia, unspecified; M06.9 Rheumatoid arthritis, unspecified; I25.2 Old myocardial infarction; Z87.891 Personal history of nicotine dependence; Z79.4 Long term (current) use of insulin; Z79.51 Long term (current) use of inhaled steroids; Z79.899 Other long term (current) drug therapy; W18.11XA Fall from or off toilet without subsequent striking against object, initial encounter; Y92.121 Bathroom in nursing home as the place of occurrence of the external cause
CPT/HCPCS: 70450; 72125; 99284

== ENCOUNTER → 2021-06-16 | Outpatient (CLI) | payer MEDICARE, OTHER ==
--- NOTE | 2021-06-16 12:21 | XR ---
EXAMINATION TYPE: XR shoulder complete LT DATE OF EXAM: 06/16/2021 CLINICAL HISTORY: pain COMPARISON: NONE TECHNIQUE: Three views of the left shoulder are obtained. FINDINGS: There is no acute fracture/dislocation evident. The acromioclavicular and glenohumeral dk int spaces appear within normal limits. The visualized ribs are intact and unremarkable. IMPRESSION: 1. There is no acute fracture or dislocation. ICD 10 NO FRACTURE, INITIAL EVALUATION
--- NOTE | 2021-06-16 12:21 | XR ---
EXAMINATION TYPE: XR wrist complete LT DATE OF EXAM: 06/16/2021 CLINICAL HISTORY: pain TECHNIQUE: Frontal, lateral and oblique images of the left wrist are obtained. COMPARISON: None. FINDINGS: There is no acute fracture/dislocation evident. The joint spaces appear within normal mayo its. The overlying soft tissue appears unremarkable. IMPRESSION: There is no acute fracture or dislocation seen. ICD 10 NO FRACTURE, INITIAL EVALUATION
== END | disposition home or self-care (01) ==
LOC: RADMRIMAIN 11:29
PROVIDERS: ATTEND Family Medicine
DX: M25.512 Pain in left shoulder (principal); M25.532 Pain in left wrist

== ENCOUNTER 2021-08-08 12:05 | Inpatient (IN) | payer MEDICARE, OTHER ==
[2021-08-08] MEDS ORDERED: methylPREDNISolone SOD SUCCI 125 MG/2 ML VIAL IV STA (13:45)
[2021-08-08] MEDS ORDERED: IPRATROPIUM-ALBUTEROL 3 ML NEB INHALATION STA (13:45)
--- NOTE | 2021-08-08 14:29 | ED ---
SOB HPI - General Chief Complaint: Shortness of Breath Stated Complaint: SOB Time Seen by Provider: 08/08/21 13:01 Source: patient, family Mode of arrival: wheelchair Limitations: no limitations - History of Present Illness Initial Comments: 71-year-old female with past medical history of COPD, CHF presents to emergency room with shortness of breath. Daughter is at bedside and tried to history. She was recently discharged from [facility] a week ago. She was hospitalized there after she had a toe amputation at [facility]. They have been battling with the lower extremity edema since her stay at [facility]. She takes 40 mg of Lasix twice daily and has not missed any doses. She continues to gain weight, lower extremity edema and has developed shortness of breath. She occasionally wears a BiPAP at home. Daughter states that she's not as compliant as she should be. She also has a history of COPD. Home care nurse came to the house today and found the patient hypoxic. Her oxygenation was 73% on 2 L. She is supposed to wear 2 L at home when needed and has been wearing it continuously. She denies any chest pain. No fevers, chills or cough. No other alleviating, Perceptin or modifying factors - Related Data Home Medications Medication Instructions Recorded Confirmed Albuterol Sulfate [Proair Hfa] 2 puff INHALATION RT-Q6H PRN 06/16/20 08/08/21 Montelukast Sodium [Singulair] 10 mg PO HS@209907/15/20 08/08/21 DULoxetine HCL [Cymbalta] 60 mg PO HS 08/29/20 08/08/21 Ascorbic Acid [Vitamin C] 500 mg PO DAILY@89905/16/21 08/08/21 Insulin Glargine,Hum.rec.anlog 23 unit SQ HS@209905/16/21 08/08/21 [Lantus Solostar Pen] Magnesium Oxide [Mag-Ox] 400 mg PO HS 05/16/21 08/08/21 Multivitamins, Thera [Multivitamin 1 tab PO DAILY@0900 05/16/21 08/08/21 (formulary)] lisinopriL 2.5 mg PO DAILY 05/16/21 08/08/21 Acetaminophen Tab [Tylenol] 650 mg PO Q6H PRN 08/08/21 08/08/21 Apixaban [Eliquis] 5 mg PO BID 08/08/21 08/08/21 Furosemide [Lasix] 40 mg PO BID 08/08/21 08/08/21 Insulin Lispro [humaLOG Kwikpen] 7 unit SQ AC-TID 08/08/21 08/08/21 Melatonin 10 mg PO HS 08/08/21 08/08/21 Metoprolol Succinate [Toprol XL] 25 mg PO HS 08/08/21 08/08/21 Potassium Chloride ER [K-Dur 20] 20 meq PO DAILY 08/08/21 08/08/21 Pregabalin [Lyrica] 75 mg PO HS 08/08/21 08/08/21 amLODIPine [Norvasc] 5 mg PO DAILY 08/08/21 08/08/21 oxyCODONE-APAP 5-325MG [Percocet 1 tab PO Q4H PRN 08/08/21 08/08/21 5-325 mg] Allergies Allergy/AdvReac Type Severity Reaction Status Date / Time nickel Allergy Rash/Hives Verified 08/08/21 14:01 levofloxacin [From Levaquin] AdvReac Confusion Verified 08/08/21 14:01 Review of Systems ROS Statement: Those systems with pertinent positive or pertinent negative responses have been documented in the HPI. ROS Other: All systems not noted in ROS Statement are negative. Past Medical History Past Medical History: Asthma, Coronary Artery Disease (CAD), Heart Failure, COPD, CVA/TIA, Diabetes Mellitus, Hyperlipidemia, Hypertension, Pneumonia, Rheumatoid Arthritis (RA) Additional Past Medical History / Comment(s): left GREAT TOE WOUND, with current dressing, partial amputation on 06/28/20. going to hyperbaric chamber 5 days a week, PICC line right arm Last Myocardial Infarction Date:: 2014 History of Any Multi-Drug Resistant Organisms: None Reported Past Surgical History: Adenoidectomy, Appendectomy, Coronary Bypass/CABG, Heart Catheterization, Tonsillectomy, Tubal Ligation Additional Past Surgical History / Comment(s): Open heart on April 13 2015, cabg X4, bilateral carotid endarterectomies,. Right great toe amputation 2014. stent in right leg above knee, elke cataracts. left toe ambutation, 06/18/20 Past Anesthesia/Blood Transfusion Reactions: Previous Problems w/ Anesthesia Additional Past Anesthesia/Blood Transfusion Reaction / Comment(s): diff breathing afterwards Past Psychological History: No Psychological Hx Reported Smoking Status: Former smoker Past Alcohol Use History: None Reported Past Drug Use History: None Reported - Past Family History Father Family Medical History: Coronary Artery Disease (CAD), CVA/TIA, Diabetes Sheryl litus Mother Additional Family Medical History / Comment(s): "spot on the lung" General Exam Limitations: no limitations General appearance: alert, in no apparent distress Head exam: Present: atraumatic, normocephalic, normal inspection Eye exam: Present: normal appearance, PERRL, EOMI. Absent: scleral icterus, conjunctival injection, periorbital swelling ENT exam: Present: normal exam, mucous membranes moist Neck exam: Present: normal inspection. Absent: tenderness, meningismus, lymphadenopathy Respiratory exam: Present: rales, accessory muscle use, decreased breath sounds. Absent: respiratory distress, wheezes, rhonchi, stridor Cardiovascular Exam: Present: regular rate, normal rhythm, normal heart sounds. Absent: systolic murmur, diastolic murmur, rubs, gallop, clicks GI/Abdominal exam: Present: soft, normal bowel sounds. Absent: distended, tenderness, guarding, rebound, rigid Extremities exam: Present: full ROM, normal capillary refill, pedal edema. Absent: tenderness, joint swelling, calf tenderness Back exam: Present: normal inspection Neurological exam: Present: alert, oriented X3, CN II-XII intact Psychiatric exam: Present: normal affect, normal mood Skin exam: Present: warm, dry, intact, normal color. Absent: rash Course Vital Signs 08/08/21 08/08/21 08/08/21 12:27 13:59 14:13 Temperature 97.5 F L Pulse Rate 87 80 84 Respiratory 18 Rate Blood Pressure 131/72 O2 Sat by Pulse 92 L Oximetry 08/08/21 08/08/21 08/08/21 14:26 14:49 17:00 Temperature Pulse Rate 79 85 86 Respiratory 20 20 Rate Blood Pressure 129/70 130/105 O2 Sat by Pulse 93 L 94 L 93 L Oximetry 08/08/21 17:23 Temperature 97.8 F Pulse Rate 87 Respiratory 18 Rate Blood Pressure 131/97 O2 Sat by Pulse 92 L Oximetry Medical Decision Making - Medical Decision Making Upon arrival patient is placed into room 2. A thorough history and physical exam is performed. Patient does have oxygen saturation saturations of mid 80s on 2 L. She is placed on 6 L nasal cannula with improvement to low 90s. IV access established laboratory studies were conducted. BNP is 31,500. Chest x- ray demonstrates pulmonary interstitial edema. Recommended admission for diuresis. Patient given 80 of Lasix IV. She agreed to admission. Spoke with Dr. Bauer who agreed to admit the patient. Cardiology and neurology placed on consult. Remained in stable condition awaiting a bed on the floor. BiPAP is ordered for the patient at this time as her oxygenation falls when sleeping - Lab Data Result diagrams: 08/08/21 14:26 08/08/21 14:26 Lab Results 08/08/21 08/08/21 08/08/21 Range/Units 14:26 14:26 14:26 WBC 6.6 (3.8-10.6) k/uL RBC 3.77 L (3.80-5.40) m/uL Hgb 11.2 L (11.4-16.0) gm/dL Hct 35.8 (34.0-46.0) % MCV 95.1 (80.0-100.0) fL MCH 29.7 (25.0-35.0) pg MCHC 31.3 (31.0-37.0) g/dL RDW 16.4 H (11.5-15.5) % Plt Count 238 (150-450) k/uL MPV 8.2 Neutrophils % 58 % Lymphocytes % 32 % Monocytes % 5 % Eosinophils % 3 % Basophils % 0 % Neutrophils # 3.9 (1.3-7.7) k/uL Lymphocytes # 2.1 (1.0-4.8) k/uL Monocytes # 0.3 (0-1.0) k/uL Eosinophils # 0.2 (0-0.7) k/uL Basophils # 0.0 (0-0.2) k/uL Hypochromasia Moderate Anisocytosis Slight PT 11.0 (9.0-12.0) sec INR 1.0 (<1.2) APTT 26.5 (22.0-30.0) sec Sodium 137 (137-145) mmol/L Potassium 5.3 H (3.5-5.1) mmol/L Chloride 106 (98-107) mmol/L Carbon Dioxide 27 (22-30) mmol/L Anion Gap 4 mmol/L BUN 26 H (7-17) mg/dL Creatinine 1.50 H (0.52-1.04) mg/dL Est GFR (CKD-EPI)AfAm 40 (>60 ml/min/1.73 sqM) Est GFR (CKD-EPI)NonAf 35 (>60 ml/min/1.73 sqM) Glucose 187 H (74-99) mg/dL Plasma Lactic Acid Sandeep (0.7-2.0) mmol/L Calcium 8.9 (8.4-10.2) mg/dL Magnesium 1.7 (1.6-2.3) mg/dL Total Bilirubin 0.9 (0.2-1.3) mg/dL AST 22 (14-36) U/L ALT 10 (4-34) U/L Alkaline Phosphatase 157 H (38-126) U/L Troponin I (0.000-0.034) ng/mL NT-Pro-B Natriuret Pep pg/mL Total Protein 7.2 (6.3-8.2) g/dL Albumin 3.5 (3.5-5.0) g/dL Influenza Type A RNA (Not Detectd) Influenza Type B (PCR) (Not Detectd) 08/08/21 08/08/21 08/08/21 Range/Units 14:26 14:26 14:26 WBC (3.8-10.6) k/uL RBC (3.80-5.40) m/uL Hgb (11.4-16.0) gm/dL Hct (34.0-46.0) % MCV (80.0-100.0) fL MCH (25.0-35.0) pg MCHC (31.0-37.0) g/dL RDW (11.5-15.5) % Plt Count (150-450) k/uL MPV Neutrophils % % Lymphocytes % % Monocytes % % Eosinophils % % Basophils % % Neutrophils # (1.3-7.7) k/uL Lymphocytes # (1.0-4.8) k/uL Monocytes # (0-1.0) k/uL Eosinophils # (0-0.7) k/uL Basophils # (0-0.2) k/uL Hypochromasia Anisocytosis PT (9.0-12.0) sec INR (<1.2) APTT (22.0-30.0) sec Sodium (137-145) mmol/L Potassium (3.5-5.1) mmol/L Chloride (98-107) mmol/L Carbon Dioxide (22-30) mmol/L Anion Gap mmol/L BUN (7-17) mg/dL Creatinine (0.52-1.04) mg/dL Est GFR (CKD-EPI)AfAm (>60 ml/min/1.73 sqM) Est GFR (CKD-EPI)NonAf (>60 ml/min/1.73 sqM) Glucose (74-99) mg/dL Plasma Lactic Acid Sandeep 1.0 (0.7-2.0) mmol/L Calcium (8.4-10.2) mg/dL Magnesium (1.6-2.3) mg/dL Total Bilirubin (0.2-1.3) mg/dL AST (14-36) U/L ALT (4-34) U/L Alkaline Phosphatase (38-126) U/L Troponin I 0.031 (0.000-0.034) ng/mL NT-Pro-B Natriuret Pep 27150 pg/mL Total Protein (6.3-8.2) g/dL Albumin (3.5-5.0) g/dL Influenza Type A RNA (Not Detectd) Influenza Type B (PCR) (Not Detectd) 08/08/21 Range/Units 14:45 WBC (3.8-10.6) k/uL RBC (3.80-5.40) m/uL Hgb (11.4-16.0) gm/dL Hct (34.0-46.0) % MCV (80.0-100.0) fL MCH (25.0-35.0) pg MCHC (31.0-37.0) g/dL RDW (11.5-15.5) % Plt Count (150-450) k/uL MPV Neutrophils % % Lymphocytes % % Monocytes % % Eosinophils % % Basophils % % Neutrophils # (1.3-7.7) k/uL Lymphocytes # (1.0-4.8) k/uL Monocytes # (0-1.0) k/uL Eosinophils # (0-0.7) k/uL Basophils # (0-0.2) k/uL Hypochromasia Anisocytosis PT (9.0-12.0) sec INR (<1.2) APTT (22.0-30.0) sec Sodium (137-145) mmol/L Potassium (3.5-5.1) mmol/L Chloride (98-107) mmol/L Carbon Dioxide (22-30) mmol/L Anion Gap mmol/L BUN (7-17) mg/dL Creatinine (0.52-1.04) mg/dL Est GFR (CKD-EPI)AfAm (>60 ml/min/1.73 sqM) Est GFR (CKD-EPI)NonAf (>60 ml/min/1.73 sqM) Glucose (74-99) mg/dL Plasma Lactic Acid Sandeep (0.7-2.0) mmol/L Calcium (8.4-10.2) mg/dL Magnesium (1.6-2.3) mg/dL Total Bilirubin (0.2-1.3) mg/dL AST (14-36) U/L ALT (4-34) U/L Alkaline Phosphatase (38-126) U/L Troponin I (0.000-0.034) ng/mL NT-Pro-B Natriuret Pep pg/mL Total Protein (6.3-8.2) g/dL Albumin (3.5-5.0) g/dL Influenza Type A RNA Not Detected (Not Detectd) Influenza Type B (PCR) Not Detected (Not Detectd) - EKG Data EKG Comments: EKG demonstrates sinus rhythm with a rate of 82. DC interval 137. QRS 102. QTC of 431. No acute ST segment elevations. Inverted T wave with mild ST depression in V5 and V6 Disposition Clinical Impression: Hypoxia, CHF exacerbation Disposition: ADMITTED IP TO THIS HOSP Condition: Serious Is patient prescribed a controlled substance at d/c from ED?: No Decision to Admit Reason: Admit from EC Decision Date: 08/08/21 Decision Time: 16:03
[2021-08-08 14:50] LABS: Partial Thromboplastin Time 26.5 sec (22.0-30.0)
[2021-08-08 14:56] LABS: Albumin 3.5 g/dL (3.5-5.0); Calcium 8.9 mg/dL (8.4-10.2); Magnesium 1.7 mg/dL (1.6-2.3); Potassium 5.3 mmol/L (3.5-5.1); Total Bilirubin 0.9 mg/dL (0.2-1.3); Total Protein 7.2 g/dL (6.3-8.2)
[2021-08-08 15:06] LABS: Anisocytosis Slight; Basophils % (A) 0 %; Eosinophils # (A) 0.2 k/uL (0-0.7); Eosinophils % (A) 3 %; HCT 35.8 % (34.0-46.0); HGB 11.2 gm/dL (11.4-16.0); Hypochromasia Moderate; Lymphocytes # (A) 2.1 k/uL (1.0-4.8); Lymphocytes % (A) 32 %; MCH 29.7 pg (25.0-35.0); MCHC 31.3 g/dL (31.0-37.0); MCV 95.1 fL (80.0-100.0); Mean Platelet Volume 8.2; Monocytes # (A) 0.3 k/uL (0-1.0); Monocytes % (A) 5 %; Neutrophils # (A) 3.9 k/uL (1.3-7.7); Neutrophils % (A) 58 %; Platelet Count 238 k/uL (150-450); RBC 3.77 m/uL (3.80-5.40); RDW 16.4 % (11.5-15.5); WBC 6.6 k/uL (3.8-10.6)
--- NOTE | 2021-08-08 15:16 | XR ---
EXAMINATION TYPE: XR chest 2V DATE OF EXAM: 08/08/2021 COMPARISON: Chest x-ray May 16, 2021 HISTORY: COPD with difficulty in breathing. TECHNIQUE: Frontal and lateral views of the chest are obtained. FINDINGS: Overlying sternal wires and mediastinal clips are redemonstrated. Persistent cardiomegaly with new mild to moderate central vascular congestion and interstitial edema along with small to bord oliver moderate sized bilateral pleural effusions. Upper lungs show no pneumothorax. Osseous structur es are intact. IMPRESSION: Findings are consistent with CHF exacerbation as detailed above.
[2021-08-08] MEDS ORDERED: FUROSEMIDE 10 MG/ML 10 ML VIAL IV STA ×2 (15:49→16:09)
[2021-08-08] MEDS ORDERED: NALOXONE 0.4 MG/ML 1 ML VIAL IV PRN (16:03)
[2021-08-08] MEDS ORDERED: oxyCODONE-APAP 5-325MG 1 EACH TAB PO PRN (17:39)
[2021-08-08] MEDS ORDERED: ACETAMINOPHEN TAB 325 MG TAB PO PRN (17:39)
[2021-08-08] MEDS: FUROSEMIDE 40 MG TAB PO SCH (17:50)
[2021-08-08 20:24] LABS: Glucose,Whole Blood 272 mg/dL (75-99)
[2021-08-08] MEDS: MELATONIN 5 MG TABLET PO SCH (20:49)
[2021-08-08] MEDS: MONTELUKAST 10 MG TAB PO SCH (20:49)
[2021-08-08] MEDS: APIXABAN 5 MG TAB PO SCH (20:50)
[2021-08-08] MEDS: PREGABALIN 75 MG CAP PO SCH (20:50)
[2021-08-08] MEDS: MAGNESIUM OXIDE 400 MG TAB PO SCH (20:50)
[2021-08-08] MEDS: DULoxetine HCL 60 MG CAPSULE.DR PO SCH (20:50)
[2021-08-08] MEDS: METOPROLOL SUCCINATE (ER) 25 MG TAB.ER.24H PO SCH (20:51)
[2021-08-08] MEDS ORDERED: INSULIN DETEMIR (LEVEMIR) 100 UNIT/ML SYR SQ SCH (21:00)
--- NOTE | 2021-08-08 22:37 | P.HPIM ---
History of Present Illness H&P Date: 08/08/21 HISTORY OF PRESENT ILLNESS This is a 71-year-old female patient of Dr. Sanderson with past medical history of diabetes mellitus type 2, hypertension, hyperlipidemia, CVA in 2013 with no residuals, coronary artery disease status post 4 vessel CABG, bilateral carotid endarterectomies, mild intermittent asthma, osteomyelitis status post right great toe amputation 2014 and left toe amputation 8 left big toe amputation as well, Patient was hospitalized recently at [facility] for osteomyelitis and severe cellulitis of the right foot require debridement of the second and part of the third toe which was done successfully and patient was placed on IV antibiotic with vancomycin and then cefepime with patient developed to have slightly worsening shortness of breath along with debility and ended up going [facility] 2 weeks which ended about 10 days ago when finally patient was able to go home but according to her developed to have significant hypoxia with worsening shortness of breath the day before discharge but was still discharged home with no change in management. Patient was still on home O2 along with updraft treatment. Surprisingly her was hospitalized 2 days ago at [facility] with severe colitis and abdominal pain and the patient was left alone with not much help at the time. She apparently developed for the last 48 hours to have significant dyspnea with shortness of breath with severe hypoxia with pulse ox running in the 70s. Patient had worsening edema as well and according to her she been taking her Lasix regularly but since her has been out of the picture patient has not been watching her salt intake and not been very precise on her time with medication. Family brought her to the emergency department because of severe dyspnea and respiratory failure found to have pulse ox running 73 percentile after 5 L of O2 initially pulse ox is above 90 percentile she required BiPAP to keep her pulse ox higher. Testing at the time was done with her chest x-ray showed significant cephalization and bilateral pleural effusion with cardiomegaly and mild to moderate central vascular congestion and interstitial edema consistent with CHF. Her blood test shows influenza negative BNP was 31,500 with slightly declining kidney function with GFR down to 35 percentile only. With above symptoms patient was placed on IV diuretics continue BiPAP start her back on her updraft treatment patient be seen cardiology and pulmonary. Her echocardiogram was done in August 2020 also she had heart catheter in August 2020 at the time and found to have her bypass grafts are patent. With the above sign and symptom patient was hospitalized with CHF exacerbation along with mild COPD exacerbation as well, will be admitted to the hospital will continue diuretics echocardiogram will be done again will watch patient daily weight and intake and output watch kidney function carefully and have an aggres sive management for her COPD as well. Despite no sign of infection at this point patient will be on cephalosporin and azithromycin for now better coverage for bronchitis. REVIEW OF SYSTEMS Constitutional: No fever, no chills, no night sweats. No weight change. No weakness, fatigue or lethargy. No daytime sleepiness. EENT: No headache. No blurred vision or double vision, no loss of vision. No loss of Hearing, no ringing in the ears, no dizziness. No nasal drainage or congestion. No epistaxis. No sore throat. Lungs: significant shortness of breath cough wheezes with significant edema. Cardiovascular: positive shortness of breath with PND orthopnea mild palpitation with worsening edema at the time with no chest pain, Abdominal: No abdominal pain. No nausea, vomiting. No diarrhea. No constipation. No bloody or tarry stools.. No loss of appetite. Genitourinary: No dysuria, increased frequency, urgency. No urinary retention. Musculoskeletal: No myalgias. No muscle weakness, no gait dysfunction, no frequent falls. No back pain. No neck pain. Integumentary: No wounds, no lesions. No rash or pruritus. No unusual bruising. No change in hair or nails. Significant amputation of first and second toe on the left side with mild irritation around it only. The right side patient had right big toe amputation as well along with amputation of the second toe with slight scar tissue from debridement was done recently. Neurologic: No aphasia. No facial droop. No change in mentation. No head injury. No headache. No paralysis. No paresthesia. Psychiatric: No depression. No anxiety. No mood swings. Endocrine: No abnormal blood sugars. No weight change. No excessive sweating or thirst. No cold intolerance. SOCIAL HISTORY Patient was a smoker starting at age 17 1 pack per day and quit in 1981. No alcohol abuse, no illicit drug use. Patient lives at home and uses a walker for ambulation. FAMILY HISTORY Mother is at age 90 from coronary artery disease. Father at age 86 from coronary artery disease and diabetes. Patient has one sister with lung cancer. Patient has 2 brothers and one is healthy and one has history of lung cancer. Patient has 3 daughters and one has MS, one with a female cancer and one is healthy with no major medical problems. PHYSICAL EXAMINATION Gen: This is a 71 year-old obese female. She is resting in bed and appears to be comfortable and in no acute distress. HEENT: Head is atraumatic, normocephalic. Pupils equal, round. Sclerae is anicteric. NECK: Supple. No JVD. No lymphadenopathy. No thyromegaly. LUNGS: Clear to auscultation. No wheezes or rhonchi. No intercostal retractions. HEART: Regular rate and rhythm. No murmur. ABDOMEN: Soft. Bowel sounds are present. No masses. No tenderness. EXTREMITIES: No pedal edema. No calf tenderness. Right great toe amputation, left toe amputation significant non-healing ulcer in the left foot on the lateral side that is to area one of the base of the fifth toe measure 11 cm another one about an inch from the fifth toe between the 2 and ankle area with an open spot and ulcerated area more deeper with slight exposure bone. NEUROLOGICAL: Patient is awake, alert and oriented x3. Cranial nerves 2 through 12 are grossly intact. ASSESSMENT AND PLAN 1 acute respiratory failure: Most likely secondary to CHF exacerbation with no sign of acute coronary syndrome at this point, reason why we have dysphagia is a combination of COPD along with CHF along with compliance to medication and diet. With the was out of the house for 2 days been sick in the hospital she did not comply with her medication faithfully probably that lead into the failure at this point. We'll continue BiPAP continue to increase O2 pulmonary consultation be done along with cardiology consultation. 2 CHF exacerbation: Combination of systolic and diastolic and mostly chronic with acute component at this point become slightly bit worse with patient's weight gain, fluid retention, challenge and diuretics management with try to cre ate her symptoms. Continue aggressive management, echocardiogram will be done patient be seen cardiology as well with the furosemide at 40 mg twice a day along with lisinopril 2.5 mg a day metoprolol succinate 25 mg daily try to titrate lisinopril if patient able to tolerate medication and also consider to add Aldactone if needed. 3 COPD exacerbation: Much worsening symptomscontinue DuoNeb [id number] along with Symbicort and will add smaller dose of steroid at this point. Pulmonary consultation be done. 4. Coronary artery disease with previous history of 4 vessel CABG. 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 Brown at . Patient had an acute inferior ST elevation myocardial infarction post heart catheter and stent placement of the SVG to the RCA which was done in September 2020. Still on secondary prevention titrate medication. 5. history of DVT and PE: Remain on anticoagulation with Alquist. 6. Diabetes mellitus type 2, insulin requiring, uncontrolled with hyperglycem ia. Continue Levemir 15 units twice daily and NovoLog scale and NovoLog scheduled will be resumed at 5 units with each meal. We will titrate medication specially with infection blood sugar might be much higher with titrate insulin to keep blood sugar below 120. 7 acute kidney injury with chronic kidney disease: Continue with gentle hydration repeat BUN/creatinine in 24 hours. 8 history of CVA: Has no major residual except balance gait and mild memory loss. 9 hypertension: Remain on Norvasc 5 mg a day along with lisinopril 2.5 mg a day and metoprolol succinate 25 mg daily. 10 hyperlipidemia: Continue patient on statin which doesn't look like in her list of medication at this point but I believe patient was on atorvastatin 80 mg a day. 11 severe diabetic neuropathy with worsening PAD as well: Patient remain on Lyrica 75 mg at bedtime we'll titrate dose higher to twice a day if needed. 12 Peripheral vascular disease with previous stenting of the right lower extremity. Patient regularly follows with Dr. Gregory. 13 recurrent depression: Remain on Cymbalta. 14 DVT prophylaxis: Patient will continue all her questions. 15 GI prophylaxis: Remain on pantoprazole. CODE STATUS: Full code. Admit patient to the inpatient service for more than 2 night stay. Past Medical History Past Medical History: Asthma, Coronary Artery Disease (CAD), Heart Failure, COPD, CVA/TIA, Diabetes Mellitus, Hyperlipidemia, Hypertension, Pneumonia, Rheumatoid Arthritis (RA) Additional Past Medical History / Comment(s): left GREAT TOE WOUND, with current dressing, partial amputation on 06/28/20. going to hyperbaric chamber 5 days a week, PICC line right arm Last Myocardial Infarction Date:: 2014 History of Any Multi-Drug Resistant Organisms: None Reported Past Surgical History: Adenoidectomy, Appendectomy, Coronary Bypass/CABG, Heart Catheterization, Tonsillectomy, Tubal Ligation Additional Past Surgical History / Comment(s): Open heart on April 13 2015, cabg X4, bilateral carotid endarterectomies,. Right great toe amputation 2015. stent in right leg above knee, elke cataracts. left toe ambutation, 06/18/20 Past Anesthesia/Blood Transfusion Reactions: Previous Problems w/ Anesthesia Additional Past Anesthesia/Blood Transfusion Reaction / Comment(s): diff breathing afterwards Past Psychological History: No Psychological Hx Reported Smoking Status: Former smoker Past Alcohol Use History: None Reported Past Drug Use History: None Reported - Past Family History Father Family Medical History: Coronary Artery Disease (CAD), CVA/TIA, Diabetes Mellitus Mother Additional Family Medical History / Comment(s): "spot on the lung" Medications and Allergies Home Medications Medication Instructions Recorded Confirmed Type Albuterol Sulfate [Proair Hfa] 2 puff INHALATION RT-Q6H PRN 06/16/20 08/08/21 Hi story Montelukast Sodium [Singulair] 10 mg PO HS@209907/15/20 08/08/21 History DULoxetine HCL [Cymbalta] 60 mg PO HS 08/29/20 08/08/21 History Ascorbic Acid [Vitamin C] 500 mg PO DAILY@0900 05/16/21 08/08/21 History Insulin Glargine,Hum.rec.anlog 23 unit SQ HS@209905/16/21 08/08/21 History [Lantus Solostar Pen] Magnesium Oxide [Mag-Ox] 400 mg PO HS 05/16/21 08/08/21 History Multivitamins, Thera [Multivitamin 1 tab PO DAILY@0900 05/16/21 08/08/21 History (formulary)] lisinopriL 2.5 mg PO DAILY 05/16/21 08/08/21 History Acetaminophen Tab [Tylenol] 650 mg PO Q6H PRN 08/08/21 08/08/21 History Apixaban [Eliquis] 5 mg PO BID 08/08/21 08/08/21 History Furosemide [Lasix] 40 mg PO BID 08/08/21 08/08/21 History Insulin Lispro [humaLOG Kwikpen] 7 unit SQ AC-TID 08/08/21 08/08/21 History Melatonin 10 mg PO HS 08/08/21 08/08/21 History Metoprolol Succinate [Toprol XL] 25 mg PO HS 08/08/21 08/08/21 History Potassium Chloride ER [K-Dur 20] 20 meq PO DAILY 08/08/21 08/08/21 History Pregabalin [Lyrica] 75 mg PO HS 08/08/21 08/08/21 History amLODIPine [Norvasc] 5 mg PO DAILY 08/08/21 08/08/21 History oxyCODONE-APAP 5-325MG [Percocet 1 tab PO Q4H PRN 08/08/21 08/08/21 History 5-325 mg] Allergies Allergy/AdvReac Type Severity Reaction Status Date / Time nickel Allergy Rash/Hives Verified 08/08/21 14:01 levofloxacin [From Levaquin] AdvReac Confusion Verified 08/08/21 14:01 Physical Exam Vitals: Vital Signs Temp Pulse Resp BP Pulse Ox 08/08/21 17:23 97.8 F 87 18 131/97 92 L 08/08/21 17:00 86 20 130/105 93 L 08/08/21 14:49 85 20 94 L 08/08/21 14:26 79 129/70 93 L 08/08/21 14:13 84 08/08/21 13:59 80 08/08/21 12:27 97.5 F L 87 18 131/72 92 L Intake and Output 08/08/21 08/08/21 08/08/21 06:59 14:59 22:59 Other: Weight 77.111 kg Results CBC & Chem 7: 08/08/21 14:26 08/08/21 14:26 Labs: Abnormal Lab Results - Last 24 Hours (Table) 08/08/21 08/08/21 Range/Units 14:26 14:26 RBC 3.77 L (3.80-5.40) m/uL Hgb 11.2 L (11.4-16.0) gm/dL RDW 16.4 H (11.5-15.5) % Potassium 5.3 H (3.5-5.1) mmol/L BUN 26 H (7-17) mg/dL Creatinine 1.50 H (0.52-1.04) mg/dL Glucose 187 H (74-99) mg/dL Alkaline Phosphatase 157 H (38-126) U/L
[2021-08-08] MEDS: methylPREDNISolone SOD SUCCI 40 MG/ML 1 ML VIAL IV SCH (23:20)
[2021-08-09 04:23] LABS: Basophils % (A) 0 %; Eosinophils % (A) 1 %; HCT 34.8 % (34.0-46.0); HGB 10.2 gm/dL (11.4-16.0); Hypochromasia Marked; Lymphocytes # (A) 0.5 k/uL (1.0-4.8); Lymphocytes % (A) 18 %; MCH 28.9 pg (25.0-35.0); MCHC 29.4 g/dL (31.0-37.0); MCV 98.2 fL (80.0-100.0); Macrocytosis Slight; Mean Platelet Volume 8.5; Monocytes % (A) 2 %; Neutrophils # (A) 2.3 k/uL (1.3-7.7); Neutrophils % (A) 80 %; Platelet Count 203 k/uL (150-450); RBC 3.55 m/uL (3.80-5.40); RDW 15.7 % (11.5-15.5); WBC 2.8 k/uL (3.8-10.6)
[2021-08-09 04:42] LABS: Calcium 8.7 mg/dL (8.4-10.2)
[2021-08-09 05:03] LABS: Potassium 6.3 mmol/L (3.5-5.1)
[2021-08-09] MEDS ORDERED: SODIUM ZIRCONIUM CYCLOSILICATE 10 GM PACKET PO ONE (06:25)
[2021-08-09 07:12] LABS: Glucose,Whole Blood 339 mg/dL (75-99)
[2021-08-09] MEDS: INSULIN ASPART (NovoLOG) 100 UNIT/ML VIAL SQ SCH ×5 (07:18→20:09)
[2021-08-09] MEDS: PANTOPRAZOLE 40 MG TABLET PO SCH (07:18)
[2021-08-09] MEDS ORDERED: POTASSIUM CHLORIDE ER 20 MEQ TAB.ER PO SCH (09:00)
[2021-08-09] MEDS: methylPREDNISolone SOD SUCCI 40 MG/ML 1 ML VIAL IV SCH ×3 (09:29→23:00)
[2021-08-09] MEDS: MULTIVITAMINS, THERA 1 EACH TAB PO SCH (09:30)
[2021-08-09] MEDS: ASCORBIC ACID 500 MG TAB PO SCH (09:30)
[2021-08-09] MEDS: FUROSEMIDE 40 MG TAB PO SCH (09:30)
[2021-08-09] MEDS: amLODIPine 5 MG TAB PO SCH (09:30)
[2021-08-09] MEDS: APIXABAN 5 MG TAB PO SCH ×2 (09:30→20:08)
--- NOTE | 2021-08-09 09:42 | P.CNPUL ---
History of Present Illness Consult date: 08/09/21 History of present illness: 71-year-old female patient, known history of CAD, previous four-vessel bypass surgery, previous history of acute inferior ST segment elevation myocardial infarction post cardiac catheterization and stenting of SVG to RCA done in September 2020 along with history of diabetes mellitus type 2 insulin-dependent, diabetic peripheral neuropathy, diabetic foot ulcers with previous history of osteomyelitis, previous history of a chronic systolic heart failure, COPD, CVA without any residual deficits, hypertension, chronic stage III kidney disease hy perlipidemia and history of depression. Previous echocardiogram from 2020 has shown an ejection fraction of around 40-45% in addition to moderate concentric LVH, segmental motion abnormalities without any significant valvular disease. Note that the patient has had previous amputation of the right great toe in 2014 and subsequent toe amputation on the left and right second toe amputation June 2020. The patient came into the emergency department on 08/08/2021 for increased shortness of breath. She was earlier at [facility] where she underwent further amputation of the toe and following that the patient was discharged to [facility] on [facility] from where she was discharged approximately a week ago. She was still having issues with increased edema and swelling in lower extremities, weight gain and fluid overload in the same time the patient was having worsening shortness of breath. She was found to be hypoxic by the home care nurses and the patient was pulse oxing around 73% 2 L approximately nasal cannula. She denies having any chest pain. No reported cough sputum production chest that is so wheezing. She is an ex-smoker. She has history of COPD. In the ED, the patient was found to be hemodynamically stable. She was afebrile. She was placed on 6 L O2 nasal cannula to bring her saturation above 90%. Initial blood work showed a white cell count of 6.6 with a hemoglobin of 11.2 and a platelet count of 238 and the patient had a sodium level of 137 with a potassium level of 5.3, BUN of 26 with a creatinine of 1.5 and a glucose of 187 LFTs were normal, BUN was at 26 with a creatinine of 1.5. Coagulation profile was within normal limits. Potassium level was at 5.3, lactic acid level was at 1.0, proBNP level was 31,500 and a troponin level was at 0.031. Influenza A and B screening was negative. Chest x-ray showed cardiomegaly and pulmonary edema consistent with CHF. Based on that, patient was hospitalized in the pulmonary consultation was requested. She did receive a dose of Lasix 80 mg IV in the emergency department. Past Medical History Past Medical History: Asthma, Coronary Artery Disease (CAD), Heart Failure, COPD, CVA/TIA, Diabetes Mellitus, Hyperlipidemia, Hypertension, Pneumonia, Rheumatoid Arthritis (RA) Additional Past Medical History / Comment(s): left GREAT TOE WOUND, with current dressing, partial amputation on 06/28/20. going to hyperbaric chamber 5 days a week, PICC line right arm Last Myocardial Infarction Date:: 2014 History of Any Multi-Drug Resistant Organisms: None Reported Past Surgical History: Adenoidectomy, Appendectomy, Coronary Bypass/CABG, Heart Catheterization, Tonsillectomy, Tubal Ligation Additional Past Surgical History / Comment(s): Open heart on April 13 2015, cabg X4, bilateral carotid endarterectomies,. Right great toe amputation 2014. stent in right leg above knee, elke cataracts. left toe ambutation, 06/18/20 Past Anesthesia/Blood Transfusion Reactions: Previous Problems w/ Anesthesia Additional Past Anesthesia/Blood Transfusion Reaction / Comment(s): diff breat mckenna afterwards Past Psychological History: No Psychological Hx Reported Smoking Status: Former smoker Past Alcohol Use History: None Reported Past Drug Use History: None Reported - Past Family History Father Family Medical History: Coronary Artery Disease (CAD), CVA/TIA, Diabetes Mellitus Mother Additional Family Medical History / Comment(s): "spot on the lung" Medications and Allergies Home Medications Medication Instructions Recorded Confirmed Type Albuterol Sulfate [Proair Hfa] 2 puff INHALATION RT-Q6H PRN 06/16/20 08/08/21 History Montelukast Sodium [Singulair] 10 mg PO HS@209907/15/20 08/08/21 History DULoxetine HCL [Cymbalta] 60 mg PO HS 08/29/20 08/08/21 History Ascorbic Acid [Vitamin C] 500 mg PO DAILY@0900 05/16/21 08/08/21 History Insulin Glargine,Hum.rec.anlog 23 unit SQ HS@209905/16/21 08/08/21 History [Lantus Solostar Pen] Magnesium Oxide [Mag-Ox] 400 mg PO HS 05/16/21 08/08/21 History Multivitamins, Thera [Multivitamin 1 tab PO DAILY@0900 05/16/21 08/08/21 History (formulary)] lisinopriL 2.5 mg PO DAILY 05/16/21 08/08/21 History Acetaminophen Tab [Tylenol] 650 mg PO Q6H PRN 08/08/21 08/08/21 History Apixaban [Eliquis] 5 mg PO BID 08/08/21 08/08/21 History Furosemide [Lasix] 40 mg PO BID 08/08/21 08/08/21 History Insulin Lispro [humaLOG Kwikpen] 7 unit SQ AC-TID 08/08/21 08/08/21 History Melatonin 10 mg PO HS 08/08/21 08/08/21 History Metoprolol Succinate [Toprol XL] 25 mg PO HS 08/08/21 08/08/21 History Potassium Chloride ER [K-Dur 20] 20 meq PO DAILY 08/08/21 08/08/21 History Pregabalin [Lyrica] 75 mg PO HS 08/08/21 08/08/21 History amLODIPine [Norvasc] 5 mg PO DAILY 08/08/21 08/08/21 History oxyCODONE-APAP 5-325MG [Percocet 1 tab PO Q4H PRN 08/08/21 08/08/21 History 5-325 mg] Allergies Allergy/AdvReac Type Severity Reaction Status Date / Time nickel Allergy Rash/Hives Verified 08/08/21 14:01 levofloxacin [From Levaquin] AdvReac Confusion Verified 08/08/21 14:01 Physical Exam Vitals: Vital Signs Temp Pulse Resp BP Pulse Ox 08/08/21 17:23 97.8 F 87 18 131/97 92 L 08/08/21 17:00 86 20 130/105 93 L 08/08/21 14:49 85 20 94 L 08/08/21 14:26 79 129/70 93 L 08/08/21 14:13 84 08/08/21 13:59 80 08/08/21 12:27 97.5 F L 87 18 131/72 92 L Intake and Output 08/08/21 08/08/21 08/08/21 06:59 14:59 22:59 Other: Weight 77.111 kg 77.111 kg Gen: This is a 71 year-old obese female. Breathing is nonlabored and the patient is on 6 liters 02 NC HEENT: Head is atraumatic, normocephalic. Pupils equal, round. Sclerae is anicteric. NECK: Supple. No JVD. No lymphadenopathy. No thyromegaly. LUNGS: Clear to auscultation. No wheezes and there is diminished BS and the patient has crackles in the lung bases bilateral. No intercostal retractions. Cardiac exam revealed the PMI to be normally situated and sized. The rhythm was regular and no extrasystoles were noted during several minutes of auscultation. The first and second heart sounds were normal and physiologic splitting of the second heart sound was noted. There were no murmurs, rubs, clicks, or gallops. Abdominal exam revealed normal bowel sounds. The abdomen was soft, non-tender, and without masses, organomegaly, or appreciable enlargement of the abdominal aorta. EXTREMITIES: pedal edema. No calf tenderness. Right great toe amputation, NEUROLOGICAL: Patient is awake, alert and oriented x3. Cranial nerves 2 through 12 are grossly intact. Results - Laboratory Findings CBC and BMP: 08/09/21 03:28 08/09/21 03:25 PT/INR, D-dimer PT 11.0 sec (9.0-12.0) 08/08/21 14:26 INR 1.0 (<1.2) 08/08/21 14:26 Abnormal lab findings: Abnormal Labs 08/08/21 08/08/21 08/08/21 14:26 14:26 20:23 RBC 3.77 L Hgb 11.2 L RDW 16.4 H Potassium 5.3 H BUN 26 H Creatinine 1.50 H Glucose 187 H POC Glucose (mg/dL) 272 H Alkaline Phosphatase 157 H - Diagnostic Findings Chest x-ray: image reviewed Assessment and Plan Plan: Acute CHF exacerbation/ pulmonary edema Chronic systolic CHF with ejection fraction of 40-45% CAD and previous inferior wall ST elevated myocardial infarction, status post heart catheterization and angioplasty of the SVG to the RCA and the patient is post four-vessel bypass grafting Paroxysmal A. fib with RVR , current rhythm is normal sinus rhythm, maintained on snf anticoagulation with Eliquis CKD stage III Previous left big toe amputation site related to osteomyelitis in June 2020 Diabetes type 2 chronic bronchial asthma, mild intermittent History of carotid artery disease with bilateral carotid endarterectomy Previous history of right great toe amputation in 2015 \\ Peripheral vascular disease with previous stenting of the right lower extremity History of CVA, no deficits for now Hypertension Hyperlipidemia Depression positive for COVID-19 on April 23, 2021 PAD and bilateral carotid end arterectomy Plan IV lasix 40 mg q 12 wean Fio2 to maintain Sao2 >90 Duoneb QID Iv Solumedrol Eliquis Po resume home meds Will FU
--- NOTE | 2021-08-09 11:16 | P.CRDCN ---
History of Present Illness Consult date: 08/09/21 History of present illness: patient has a known history of coronary artery disease status post CABG status post angioplasty of the venous grafts admitted to the hospital with acute hypoxic respiratory failure and acute exacerbation of chronic congestive heart failure. Patient presented in respiratory distress. Patient wears home O2. According to her daughter she does not wear it as ordered, she wears a intermittently and she should be wearing it continuously. her BNP was 31,500, her chest x-ray showed pulmonary interstitial edema. She is currently on Lasix 40 mg twice a day by mouth. obtain an echocardiogram patient is examined today resting comfortably in bed with no signs of acute distress, on 6 L nasal cannula. She denies chest pain or shortness of breath. she is sinus rhythm on her EKG. Patient's potassium is 6.3, and her creatinine is 1.5. Will repeat labs tomorrow. Will stop supplemental potassium. Review of Systems REVIEW OF SYSTEMS At the time of my exam: CONSTITUTIONAL: Denies fever or chills. EYES: Negative for vision changes ENT: Negative for hearing loss CARDIOVASCULAR: Denies chest pain, shortness of breath, diaphoresis, orthopnea, PND or palpitations. VASCULAR: Denies edema RESPIRATORY: Denies cough. GASTROINTESTINAL: Denies abdominal pain, diarrhea, constipation, nausea or vomiting. MUSCULOSKELETAL: Denies myalgias. NEUROLOGIC: Denies numbness, tingling, headache or weakness. ENDOCRINE: Denies fatigue, weight change, polydipsia or polyurina. GENITOURINARY: Denies burning, hematuria or urgency with micturation. HEMATOLOGIC: Denies history of anemia or bleeding. DERMATOLOGY: Denies rash or skin sores PSYCH: Negative for depression or hallucinations. Past Medical History Past Medical History: Asthma, Coronary Artery Disease (CAD), Heart Failure, CO PD, CVA/TIA, Diabetes Mellitus, Hyperlipidemia, Hypertension, Pneumonia, Rheumatoid Arthritis (RA) Additional Past Medical History / Comment(s): left GREAT TOE WOUND, with current dressing, partial amputation on 06/28/20. going to hyperbaric chamber 5 days a week, PICC line right arm Last Myocardial Infarction Date:: 2014 History of Any Multi-Drug Resistant Organisms: None Reported Past Surgical History: Adenoidectomy, Appendectomy, Coronary Bypass/CABG, Heart Catheterization, Tonsillectomy, Tubal Ligation Additional Past Surgical History / Comment(s): Open heart on April 13 2015, cabg X4, bilateral carotid endarterectomies,. Right great toe amputation 2015. stent in right leg above knee, elke cataracts. left toe ambutation, 06/18/20 Past Anesthesia/Blood Transfusion Reactions: Previous Problems w/ Anesthesia Additional Past Anesthesia/Blood Transfusion Reaction / Comment(s): diff breathing afterwards Past Psychological History: No Psychological Hx Reported Smoking Status: Former smoker Past Alcohol Use History: None Reported Past Drug Use History: None Reported - Past Family History Father Family Medical History: Coronary Artery Disease (CAD), CVA/TIA, Diabetes Mellitus Mother Additional Family Medical History / Comment(s): "spot on the lung" Medications and Allergies Home Medications Medication Instructions Recorded Confirmed Type Albuterol Sulfate [Proair Hfa] 2 puff INHALATION RT-Q6H PRN 06/16/20 08/08/21 History Montelukast Sodium [Singulair] 10 mg PO HS@2100 07/15/20 08/08/21 History DULoxetine HCL [Cymbalta] 60 mg PO HS 08/29/20 08/08/21 History Ascorbic Acid [Vitamin C] 500 mg PO DAILY@0900 05/16/21 08/08/21 History Insulin Glargine,Hum.rec.anlog 23 unit SQ HS@209905/16/21 08/08/21 History [Lantus Solostar Pen] Magnesium Oxide [Mag-Ox] 400 mg PO HS 05/16/21 08/08/21 History Multivitamins, Thera [Multivitamin 1 tab PO DAILY@0900 05/16/21 08/08/21 History (formulary)] lisinopriL 2.5 mg PO DAILY 05/16/21 08/08/21 History Acetaminophen Tab [Tylenol] 650 mg PO Q6H PRN 08/08/21 08/08/21 History Apixaban [Eliquis] 5 mg PO BID 08/08/21 08/08/21 History Furosemide [Lasix] 40 mg PO BID 08/08/21 08/08/21 History Insulin Lispro [humaLOG Kwikpen] 7 unit SQ AC-TID 08/08/21 08/08/21 History Melatonin 10 mg PO HS 08/08/21 08/08/21 History Metoprolol Succinate [Toprol XL] 25 mg PO HS 08/08/21 08/08/21 History Potassium Chloride ER [K-Dur 20] 20 meq PO DAILY 08/08/21 08/08/21 History Pregabalin [Lyrica] 75 mg PO HS 08/08/21 08/08/21 History amLODIPine [Norvasc] 5 mg PO DAILY 08/08/21 08/08/21 History oxyCODONE-APAP 5-325MG [Percocet 1 tab PO Q4H PRN 08/08/21 08/08/21 History 5-325 mg] Allergies Allergy/AdvReac Type Severity Reaction Status Date / Time nickel Allergy Rash/Hives Verified 08/08/21 14:01 levofloxacin [From Levaquin] AdvReac Confusion Verified 08/08/21 14:01 Physical Exam Vitals: Vital Signs Temp Pulse Pulse Resp BP BP Pulse Ox 08/09/21 08:00 97.9 F 94 17 122/63 92 L 08/09/21 03:56 98 F 82 16 121/69 94 L 08/08/21 23:43 86 18 159/69 94 L 08/08/21 20:40 97.9 F 65 18 123/68 93 L 08/08/21 17:23 97.8 F 87 18 131/97 92 L 08/08/21 17:00 86 20 130/105 93 L 08/08/21 14:49 85 20 94 L 08/08/21 14:26 79 129/70 93 L 08/08/21 14:13 84 08/08/21 13:59 80 08/08/21 12:27 97.5 F L 87 18 131/72 92 L Intake and Output 08/08/21 08/09/21 08/09/21 22:59 06:59 14:59 Output Total 750 200 Balance -750 -200 Output: Urine 750 200 Other: Weight 77.111 kg General: The patient is awake and alert, in no distress, and does not appear acutely ill. Skin: Skin is warm and dry and no rashes or lesions are noted. Eye: Pupils are equal, round and reactive to light, extra-ocular movements are intact; there is normal conjunctiva bilaterally. Ears, nose, mouth and throat: There are moist mucous membranes and no oral lesions. Neck: The neck is supple, there is no tenderness or JVD. Cardiovascular: There is irregular regular rate and rhythm. No murmur, rub or gallop is appreciated. Respiratory: Lungs are clear to auscultation, respirations are non-labored, breath sounds are equal. on supplemental oxygen Gastrointestinal: Soft, non-distended, non-tender abdomen without masses or organomegaly noted. There is no rebound or guarding present. Bowel sounds are unremarkable. Back: There is no tenderness to palpation in the midline. There is no obvious deformity. Musculoskeletal: Normal ROM, no tenderness, There is no pedal edema. There is no calf tenderness or swelling. Extremities: Mild bilateral pitting edema Vascular: Femoral pulse is normal. Posterior tibial pulses are normal .Dorsalis pedis is palpable. Neurological: CN II-XII intact. There are no obvious motor or sensory deficits. Speech is normal. Psychiatric: Cooperative, appropriate mood & affect, normal judgment Results 08/09/21 03:28 08/09/21 03:25 Cardiac Enzymes 08/08/21 08/08/21 Range/Units 14:26 14: AST 22 (14-36) U/L Troponin I 0.031 (0.000-0.034) ng/mL Coagulation 08/08/21 Range/Units 14:26 PT 11.0 (9.0-12.0) sec APTT 26.5 (22.0-30.0) sec CBC 08/08/21 08/09/21 Range/Units 14:26 03:28 WBC 6.6 2.8 L (3.8-10.6) k/uL RBC 3.77 L 3.55 L (3.80-5.40) m/uL Hgb 11.2 L 10.2 L (11.4-16.0) gm/dL Hct 35.8 34.8 (34.0-46.0) % Plt Count 238 203 (150-450) k/uL Comprehensive Metabolic Panel 08/08/21 08/09/21 Range/Units 14:26 03:25 Sodium 137 133 L (137-145) mmol/L Potassium 5.3 H 6.3 H* (3.5-5.1) mmol/L Chloride 106 102 (98-107) mmol/L Carbon Dioxide 27 26 (22-30) mmol/L BUN 26 H 31 H (7-17) mg/dL Creatinine 1.50 H 1.53 H (0.52-1.04) mg/dL Glucose 187 H 340 H (74-99) mg/dL Calcium 8.9 8.7 (8.4-10.2) mg/dL AST 22 (14-36) U/L ALT 10 (4-34) U/L Alkaline Phosphatase 157 H (38-126) U/L Total Protein 7.2 (6.3-8.2) g/dL Albumin 3.5 (3.5-5.0) g/dL Current Medications Generic Name Dose Route Start Last Admin Trade Name Freq PRN Reason Stop Dose Admin Acetaminophen 650 mg 08/08/21 17:39 Acetaminophen Tab 325 Mg Tab PO Q6H PRN mild Pain Albuterol Sulfate 2.5 mg 08/08/21 17:39 Albuterol Nebulized 2.5 Mg/3 Ml INHALATION RT-Q6H PRN Shortness Of Breath Amlodipine Besylate 5 mg 08/09/21 09:00 08/09/21 09:30 Amlodipine 5 Mg Tab PO 5 mg DAILY JAY Administration Apixaban 5 mg 08/08/21 21:00 08/09/21 09:30 Apixaban 5 Mg Tab PO 5 mg BID JAY Administration Protocol Ascorbic Acid 500 mg 08/09/21 09:00 08/09/21 09:30 Ascorbic Acid 500 Mg Tab PO 500 mg DAILY@0900 [facility] Administration Duloxetine HCl 60 mg 08/08/21 21:00 08/08/21 20:50 Duloxetine Hcl 60 Mg Capsule.Dr PO 60 mg HS JAY Administration Furosemide 40 mg 08/09/21 21:00 Furosemide 10 Mg/Ml 4 Ml Vial IV Q12HR [facility] Ceftriaxone Sodium 1 gm/ 50 mls @ 100 mls/hr 08/08/21 23:00 08/08/21 23:20 Sodium Chloride IVPB 100 mls/hr Q24H [facility] Administration Protocol Insulin Aspart 7 unit 08/09/21 07:30 08/09/21 07:18 Insulin Aspart (Novolog) 100 Unit/Ml Vial SQ 7 unit AC-TID JAY Administration Insulin Detemir 23 unit 08/08/21 21:00 08/08/21 20:50 Insulin Detemir (Levemir) 100 Unit/Ml Syr SQ 23 unit HS@2100 JAY Administration Lisinopril 2.5 mg 08/09/21 09:00 08/09/21 09:30 Lisinopril 2.5 Mg Tab PO 2.5 mg DAILY JAY Administration Magnesium Oxide 400 mg 08/08/21 21:00 08/08/21 20:50 Magnesium Oxide 400 Mg Tab PO 400 mg HS JAY Administration Melatonin 10 mg 08/08/21 21:00 08/08/21 20:49 Melatonin 5 Mg Tablet PO 10 mg HS JAY Administration Methylprednisolone Sodium Succinate 40 mg 08/09/21 00:00 08/09/21 09:29 Methylprednisolone Sod Succi 40 Mg/Ml 1 Ml Vial IV 40 mg Q8HR JAY Administration Metoprolol Succinate 25 mg 08/08/21 21:00 08/08/21 20:51 Metoprolol Succinate (Er) 25 Mg Tab.Er.24h PO 25 mg HS JYA Administration Montelukast Sodium 10 mg 08/08/21 21:00 08/08/21 20:49 Montelukast 10 Mg Tab PO 10 mg HS@2100 JAY Administration Multivitamins 1 each 08/09/21 09:00 08/09/21 09:30 Multivitamins, Thera 1 Each Tab PO 1 each DAILY@0900 JAY Administration Naloxone HCl 0.2 mg 08/08/21 16:03 Naloxone 0.4 Mg/Ml 1 Ml Vial IV Q2M PRN Opioid Reversal Oxycodone/Acetaminophen 1 each 08/08/21 17:39 Oxycodone-Apap 5-325mg 1 Each Tab PO Q4H PRN Moderate Pain Pantoprazole Sodium 40 mg 08/09/21 07:30 08/09/21 07:18 Pantoprazole 40 Mg Tablet PO 40 mg AC-BRKFST JAY Administration Pregabalin 75 mg 08/08/21 21:00 08/08/21 20:50 Pregabalin 75 Mg Cap PO 75 mg HS JAY Administration Intake and Output 08/08/21 08/09/21 08/09/21 22:59 06:59 14:59 Output Total 750 200 Balance -750 -200 Output: Urine 750 200 Other: Weight 77.111 kg 08/09/21 03:28 08/09/21 03:25 Assessment and Plan Assessment: acute on chronic congestive heart failure acute hypoxic respiratory failure hyperkalemia history of coronary artery disease status post 4 vessel CABG Plan: echocardiogram pending stop supplemental potassium Recheck electrolytes in the morning continue to titrateoxygen as tolerated Continue with telemetry monitoring Further recommendations based on clinical course The above impression and plan of care have been discussed and directed by the signing physician. Myah Kellogg, nurse practitioner, acting as scribe for signing physician.
[2021-08-09 11:38] LABS: Glucose,Whole Blood 339 mg/dL (75-99)
--- NOTE | 2021-08-09 11:51 | CA ---
Transthoracic Echo Report Name: Tracee Price Age: 71 Gender: F : 1950 Exam Date: 08/09/2021 08:23 Exam Location: [facility] Ht (in): 65 Wt (lb): 170 Ordering Physician: Mikel Delong MD Attending/Referring Phys: Water Quality Control Engineer Katiana Dye RDCS Procedure CPT: Indications: lvfunction Cardiac Hx: COPD, CAD, CVA, TIA, HTN Technical Quality: Contrast 1: N/A Total Dose (mL): Contrast 2: Total Dose (mL): MEASUREMENTS (Male / Female) Normal Values 2D ECHO LV Diastolic Diameter PLAX 5.1 cm 4.2 - 5.9 / 3.9 - 5.3 cm LV Systolic Diameter PLAX 4.4 cm IVS Diastolic Thickness 1.0 cm 0.6 - 1.0 / 0.6 - 0.9 cm LVPW Diastolic Thickness 1.6 cm 0.6 - 1.0 / 0.6 - 0.9 cm LV Relative Wall Thickness 0.5 RV Internal Dim ED PLAX 3.2 cm LA Systolic Diameter LX 4.4 cm 3.0 - 4.0 / 2.7 - 3.8 cm LA Volume 84.7 cm 18 - 58 / 22 - 52 cm M-MODE Aortic Root Diameter MM 2.8 cm LA Systolic Diameter MM 4.7 cm LA Ao Ratio MM 1.7 MV E Point Septal Separation 0.7 cm AV Cusp Separation MM 1.1 cm DOPPLER AV Peak Velocity 155.8 cm/s AV Peak Gradient 9.7 mmHg MV Area PHT 5.9 cm Mitral E Point Velocity 111.4 cm/s Mitral A Point Velocity 87.8 cm/s Mitral E to A Ratio 1.3 MV Deceleration Time 128.1 ms MV E' Velocity 1.3 cm/s Mitral E to MV E' Ratio 86.7 TR Peak Velocity 272.4 cm/s TR Peak Gradient 29.7 mmHg Right Ventricular Systolic Press 32.0 mmHg FINDINGS Left Ventricle Mildly increased left ventricular wall thickness. Hypokinetic inferior wall. Apical Septal Hypokinetic, EF 30-35%. Right Ventricle Normal right ventricular size and function. Right ventricular systolic pressure within normal limits. Right Atrium Normal right atrial size. Left Atrium Moderately increased left atrial diameter. Severely increased left atrial volume. Mildly increased left atrial area. Mitral Valve Moderate mitral regurgitation. Aortic Valve Trace aortic regurgitation. Aortic valve sclerosis. Tricuspid Valve Mild tricuspid regurgitation. Pulmonic Valve Trace pulmonic regurgitation. Pericardium Normal pericardium. Aorta Normal size aortic root and proximal ascending aorta. CONCLUSIONS Left ventricle is at upper limits of normal. Ejection fraction is about 30% with inferior wall hypokinesis and anteroseptal hypokinesis and apical hypokinesia. There is moderate mitral, mild aortic and tricuspid regurgitation. No pericardial effusion Previewed by: Dr. Amari Garcia MD (Electronically Signed) Final Date: 09 August 2021 11:49
--- NOTE | 2021-08-09 15:05 | P.PN ---
Subjective Progress Note Date: 08/09/21 HISTORY OF PRESENT ILLNESS This is a 71-year-old female patient of Dr. Sanderson with past medical history of diabetes mellitus type 2, hypertension, hyperlipidemia, CVA in 2013 with no residuals, coronary artery disease status post 4 vessel CABG, bilateral carotid endarterectomies, mild intermittent asthma, osteomyelitis status post right great toe amputation 2014 and left toe amputation 8 left big toe amputation as well, Patient was hospitalized recently at [facility] for osteomyelitis and severe cellulitis of the right foot require debridement of the second and part of the third toe which was done successfully and patient was placed on IV antibiotic with vancomycin and then cefepime with patient developed to have slightly worsening shortness of breath along with debility and ended up going to [facility] 2 weeks which ended about 10 days ago when finally patient was able to go home but according to her developed to have significant hypoxia with worsening shortness of breath the day before discharge but was still discharged home with no change in management. Patient was still on home O2 along with updraft treatment. Surprisingly her was hospitalized 2 days ago at [facility] with severe colitis and abdominal pain and the patient was left alone with not much help at the time. She apparently developed for the last 48 hours to have significant dyspnea with shortness of breath with severe hypoxia with pulse ox running in the 70s. Patient had worsening edema as well and according to her she been ehsan ing her Lasix regularly but since her has been out of the picture patient has not been watching her salt intake and not been very precise on her time with medication. Family brought her to the emergency department because of severe dyspnea and respiratory failure found to have pulse ox running 73 percentile after 5 L of O2 initially pulse ox is above 90 percentile she required BiPAP to keep her pulse ox higher. Testing at the time was done with her chest x-ray showed significant cephalization and bilateral pleural effusion with cardiomegaly and mild to moderate central vascular congestion and interstitial edema consistent with CHF. Her blood test shows influenza negative BNP was 31,500 with slightly declining kidney function with GFR down to 35 percentile only. With above symptoms patient was placed on IV diuretics continue BiPAP start her back on her updraft treatment patient be seen cardiology and pulmonary. Her echocardiogram was done in August 2020 also she had heart catheter in August 2020 at the time and found to have her bypass grafts are patent. With the above sign and symptom patient was hospitalized with CHF exacerbation along with mild COPD exacerbation as well, will be admitted to the hospital will continue diuretics echocardiogram will be done again will watch patient daily weight and intake and output watch kidney function carefully and have an aggressive management for her COPD as well. Despite no sign of infection at this point patient will be on cephalosporin and azithromycin for now better coverage for bronchitis. 08/09: Patient is seen today on the cardiac stepdown unit. She is currently on 6 L nasal cannula with pulse ox of 93%, blood pressure 126/59, afebrile, heart rate in the 80s and 90s. Repeat blood work. Sodium 133, potassium 6.3 status post Lokelma 10 mg 1. Chem supplement discontinued potassium. WBC 2.8, hemoglobin 10.2, platelet count 203. BUN 31 and creatinine 1.53. Levemir increased to 30 units at bedtime and NovoLog scheduled with meals increased to 10 and NovoLog scale added. Patient is currently on IV Lasix 40 mg every 12 hours and IV Solu-Medrol. Patient is followed by pulmonary medicine and cardiology. Echocardiogram is obtained and report pending. REVIEW OF SYSTEMS Constitutional: No fever, no chills, no night sweats. No weight change. No weakness, fatigue or lethargy. No daytime sleepiness. EENT: No headache. No blurred vision or double vision, no loss of vision. No loss of Hearing, no ringing in the ears, no dizziness. No nasal drainage or congestion. No epistaxis. No sore throat. Lungs: Reports shortness of breath cough wheezes with significant edema. Cardiovascular: positive shortness of breath with PND orthopnea mild palpitation with worsening edema at the time with no chest pain, Abdominal: No abdominal pain. No nausea, vomiting. No diarrhea. No con stipation. No bloody or tarry stools.. No loss of appetite. Genitourinary: No dysuria, increased frequency, urgency. No urinary retention. Musculoskeletal: No myalgias. No muscle weakness, no gait dysfunction, no frequent falls. No back pain. No neck pain. Integumentary: No wounds, no lesions. No rash or pruritus. No unusual bruising. No change in hair or nails. Significant amputation of first and second toe on the left side with mild irritation around it only. The right side patient had right big toe amputation as well along with amputation of the second toe with slight scar tissue from debridement was done recently. Neurologic: No aphasia. No facial droop. No change in mentation. No head injury. No headache. No paralysis. No paresthesia. Psychiatric: No depression. No anxiety. No mood swings. Endocrine: No abnormal blood sugars. No weight change. No excessive sweating or thirst. No cold intolerance. PHYSICAL EXAMINATION Gen: This is a 71 year-old obese female. She is resting in bed and appears to be comfortable and in no acute distress. Patient is currently on oxygen at 6 L nasal cannula HEENT: Head is atraumatic, normocephalic. Pupils equal, round. Sclerae is anicteric. NECK: Supple. No JVD. No lymphadenopathy. No thyromegaly. LUNGS: Clear to auscultation. No wheezes or rhonchi. No intercostal retractions. HEART: Regular rate and rhythm. No murmur. ABDOMEN: Soft. Bowel sounds are present. No masses. No tenderness. EXTREMITIES: No pedal edema. No calf tenderness. Right great toe amputation, left toe amputation significant non-healing ulcer in the left foot on the lateral side that is to area one of the base of the fifth toe measure 11 cm another one about an inch from the fifth toe between the 2 and ankle area with an open spot and ulcerated area more deeper with slight exposure bone. NEUROLOGICAL: Patient is awake, alert and oriented x3. Cranial nerves 2 through 12 are grossly intact. ASSESSMENT AND PLAN 1 acute respiratory failure: Most likely secondary to CHF exacerbation with no sign of acute coronary syndrome at this point, reason why we have dysphagia is a combination of COPD along with CHF along with compliance to medication and diet. Continue oxygen. Consult with pulmonary medicine appreciated. 2 CHF exacerbation: Combination of systolic and diastolic and mostly chronic with acute component at this point become slightly bit worse with patient's weight gain, fluid retention, challenge and diuretics management with try to create her symptoms. Continue aggressive management, echocardiogram report is pending, continue IV furosemide at 40 mg twice a day along with lisinopril 2.5 mg a day metoprolol succinate 25 mg daily and also consider to add Aldactone if needed. Consult with cardiology appreciated. 3 COPD exacerbation: Much worsening symptomscontinue DuoNeb [id number] along with Symbicort and Cymetra 40 mg IV every 8 hours. Pulmonary consultation appreciated. 4. Coronary artery disease with previous history of 4 vessel CABG. 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 Patient had an acute inferior ST elevation myocardial infarction post heart catheter and stent placement of the SVG to the RCA which was done in September 2020. Still on secondary prevention titrate medication. 5. history of DVT and PE: Remain on anticoagulation with Alquist. 6. Diabetes mellitus type 2, insulin requiring, uncontrolled with hy perglycemia. Continue Levemir increased to 30 mg at bedtime, continue NovoLog increased to 10 units with meals and add NovoLog scale. 7 acute kidney injury with chronic kidney disease: Continue with gentle hydration repeat BUN/creatinine in 24 hours. 8 history of CVA: Has no major residual except balance gait and mild memory loss. 9 hypertension: Remain on Norvasc 5 mg a day along with lisinopril 2.5 mg a day and metoprolol succinate 25 mg daily. 10 hyperlipidemia: Continue patient on statin which doesn't look like in her list of medication at this point but I believe patient was on atorvastatin 80 mg a day. 11 severe diabetic neuropathy with worsening PAD as well: Patient remain on Lyrica 75 mg at bedtime we'll titrate dose higher to twice a day if needed. 12 Peripheral vascular disease with previous stenting of the right lower extremity. Patient regularly follows with Dr. Gregory. 13 recurrent depression: Remain on Cymbalta. 14 DVT prophylaxis: Patient will continue all her questions. 15 GI prophylaxis: Remain on pantoprazole. CODE STATUS: Full code. Impression and plan of care have been directed as dictated by the signing physician. Emily Higginbotham nurse practitioner acting as scribe for signing physician. Objective - Vital Signs Vital signs: Vital Signs Temp 97.9 F 08/09/21 08:00 Pulse 94 08/09/21 08:00 Resp 17 08/09/21 08:00 BP 122/63 08/09/21 08:00 Pulse Ox 92 L 08/09/21 08:00 Intake & Output 08/08/21 08/09/21 08/09/21 18:59 06:59 18:59 Output Total 950 Balance -950 Weight 77.111 kg Output: Urine 950 - Labs CBC & Chem 7: 08/09/21 03:28 08/09/21 03:25 Labs: Abnormal Lab Results - Last 24 Hours (Table) 08/08/21 08/08/21 08/08/21 Range/Units 14:26 14:26 20:23 WBC (3.8-10.6) k/uL RBC 3.77 L (3.80-5.40) m/uL Hgb 11.2 L (11.4-16.0) gm/dL MCHC (31.0-37.0) g/dL RDW 16.4 H (11.5-15.5) % Lymphocytes # (1.0-4.8) k/uL Sodium (137-145) mmol/L Potassium 5.3 H (3.5-5.1) mmol/L BUN 26 H (7-17) mg/dL Creatinine 1.50 H (0.52-1.04) mg/dL Glucose 187 H (74-99) mg/dL POC Glucose (mg/dL) 272 H (75-99) mg/dL Alkaline Phosphatase 157 H (38-126) U/L 08/09/21 08/09/21 08/09/21 Range/Units 03:25 03:28 07:11 WBC 2.8 L (3.8-10.6) k/uL RBC 3.55 L (3.80-5.40) m/uL Hgb 10.2 L (11.4-16.0) gm/dL MCHC 29.4 L (31.0-37.0) g/dL RDW 15.7 H (11.5-15.5) % Lymphocytes # 0.5 L (1.0-4.8) k/uL Sodium 133 L (137-145) mmol/L Potassium 6.3 H* (3.5-5.1) mmol/L BUN 31 H (7-17) mg/dL Creatinine 1.53 H (0.52-1.04) mg/dL Glucose 340 H (74-99) mg/dL POC Glucose (mg/dL) 339 H (75-99) mg/dL Alkaline Phosphatase (38-126) U/L
[2021-08-09 16:48] LABS: Glucose,Whole Blood 342 mg/dL (75-99)
[2021-08-09 20:04] LABS: Glucose,Whole Blood 301 mg/dL (75-99)
[2021-08-09] MEDS: METOPROLOL SUCCINATE (ER) 25 MG TAB.ER.24H PO SCH (20:08)
[2021-08-09] MEDS: DULoxetine HCL 60 MG CAPSULE.DR PO SCH (20:08)
[2021-08-09] MEDS: MONTELUKAST 10 MG TAB PO SCH (20:08)
[2021-08-09] MEDS: FUROSEMIDE 10 MG/ML 4 ML VIAL IV SCH (20:08)
[2021-08-09] MEDS: PREGABALIN 75 MG CAP PO SCH (20:08)
[2021-08-09] MEDS: MAGNESIUM OXIDE 400 MG TAB PO SCH (20:08)
[2021-08-09] MEDS: MELATONIN 5 MG TABLET PO SCH (20:08)
[2021-08-09] MEDS: INSULIN DETEMIR (LEVEMIR) 100 UNIT/ML SYR SQ SCH (20:09)
[2021-08-09] MEDS: ALBUTEROL NEBULIZED 2.5 MG/3 ML INHALATION PRN (20:27)
[2021-08-10 05:59] LABS: Glucose,Whole Blood 187 mg/dL (75-99)
[2021-08-10 06:46] LABS: Glucose,Whole Blood 197 mg/dL (75-99)
[2021-08-10] MEDS: PANTOPRAZOLE 40 MG TABLET PO SCH (07:05)
[2021-08-10] MEDS: ASCORBIC ACID 500 MG TAB PO SCH (09:06)
[2021-08-10] MEDS: amLODIPine 5 MG TAB PO SCH (09:06)
[2021-08-10] MEDS: methylPREDNISolone SOD SUCCI 40 MG/ML 1 ML VIAL IV SCH ×3 (09:06→23:19)
[2021-08-10] MEDS: MULTIVITAMINS, THERA 1 EACH TAB PO SCH (09:07)
[2021-08-10] MEDS: APIXABAN 5 MG TAB PO SCH ×2 (09:07→20:52)
[2021-08-10] MEDS: INSULIN ASPART (NovoLOG) 100 UNIT/ML VIAL SQ SCH ×7 (09:07→20:53)
[2021-08-10] MEDS: FUROSEMIDE 10 MG/ML 4 ML VIAL IV SCH ×2 (09:07→20:53)
[2021-08-10 10:08] LABS: Calcium 8.9 mg/dL (8.4-10.2)
[2021-08-10 10:10] LABS: Potassium 5.7 mmol/L (3.5-5.1)
--- NOTE | 2021-08-10 11:30 | P.PN ---
Subjective Progress Note Date: 08/10/21 HISTORY OF PRESENT ILLNESS: patient has a known history of coronary artery disease status post CABG status post angioplasty of the venous grafts admitted to the hospital with acute hypoxic respiratory failure and acute exacerbation of chronic congestive heart failure. Patient presented in respiratory distress. Patient wears home O2. According to her daughter she does not wear it as ordered, she wears a intermittently and she should be wearing it continuously. her BNP was 31,500, her chest x-ray showed pulmonary interstitial edema. She is currently on Lasix 40 mg twice a day by mouth. obtain an echocardiogram patient is examined today resting comfortably in bed with no signs of acute distress, on 6 L nasal cannula. She denies chest pain or shortness of breath. she is sinus rhythm on her EKG. Patient's potassium is 6.3, and her creatinine is 1.5. Will repeat labs tomorrow. Will stop supplemental potassium. 08/10/2021 Patient examined this morning at the bedside. Patient denies chest pain or pressure. She reports improvement in her shortness of breath. She remains on nasal cannula. She remains on IV Lasix 40 mg every 12 hours. She continues to lower extremity edema although improving. Creatinine today is 1.92, up from 1.53 yesterday.echocardiogram completed revealing ejection fraction 30-35%. PHYSICAL EXAM: VITAL SIGNS: Reviewed. GENERAL: Well-developed in no acute distress. NECK: Supple. No JVD or thyromegaly LUNGS: Respirations even and unlabored. Lungs diminished to auscultation bilaterally. HEART: Regular rate and rhythm. S1 and S2 heard. EXTREMITIES: Normal range of motion. No clubbing or cyanosis. Peripheral pulses intact. 1-2+ lower extremity edema ASSESSMENT: Acute on chronic congestive heart failure with reduced EF Acute on chronic hypoxic respiratory failure Acute COPD exacerbation Coronary artery disease with previous CABG 4 History of DVT/PE Acute on chronic kidney disease Hypertension Hyperlipidemia Diabetes PLAN: Continue current cardiac medications Continue IV lasix Monitor kidney function Further recommendations pending patient course Nurse practitioner note has been reviewed by physician. Signing provider agrees with the documented findings, assessment, and plan of care. Objective - Vital Signs Vital signs: Vital Signs Temp 98.4 F 08/10/21 08:00 Pulse 86 08/10/21 08:00 Resp 18 08/10/21 08:00 BP 126/62 04/29/22 08:00 Pulse Ox 93 L 08/10/21 08:00 Intake & Output 08/09/21 08/10/21 08/10/21 18:59 06:59 18:59 Intake Total 300 Output Total 800 Balance -500 Intake: Oral 300 Output: Urine 800 Other: Voiding Method Toilet Toilet # Voids 1 - Labs CBC & Chem 7: 08/09/21 03:28 08/10/21 08:39 Labs: Abnormal Lab Results - Last 24 Hours (Table) 08/09/21 08/09/21 08/09/21 Range/Units 11:37 16:47 20:03 Potassium (3.5-5.1) mmol/L Carbon Dioxide (22-30) mmol/L BUN (7-17) mg/dL Creatinine (0.52-1.04) mg/dL Glucose (74-99) mg/dL POC Glucose (mg/dL) 339 H 342 H 301 H (75-99) mg/dL 08/10/21 08/10/21 08/10/21 Range/Units 05:57 06:45 08:39 Potassium 5.7 H (3.5-5.1) mmol/L Carbon Dioxide 20 L (22-30) mmol/L BUN 46 H (7-17) mg/dL Creatinine 1.92 H (0.52-1.04) mg/dL Glucose 176 H (74-99) mg/dL POC Glucose (mg/dL) 187 H 197 H (75-99) mg/dL
--- NOTE | 2021-08-10 11:30 | P.PN ---
Subjective Progress Note Date: 08/10/21 HISTORY OF PRESENT ILLNESS This is a 71-year-old female patient of Dr. Sanderson with past medical history of diabetes mellitus type 2, hypertension, hyperlipidemia, CVA in 2013 with no residuals, coronary artery disease status post 4 vessel CABG, bilateral carotid endarterectomies, mild intermittent asthma, osteomyelitis status post right great toe amputation 2014 and left toe amputation 8 left big toe amputation as well, Patient was hospitalized recently at [facility] for osteomyelitis and severe cellulitis of the right foot require debridement of the second and part of the third toe which was done successfully and patient was placed on IV antibiotic with vancomycin and then cefepime with patient developed to have slightly worsening shortness of breath along with debility and ended up [facility] which ended about 10 days ago when finally patient was able to go home but according to her developed to have significant hypoxia with worsening shortness of breath the day before discharge but was still discharged home with no change in management. Patient was still on home O2 along with updraft treatment. Surprisingly her was hospitalized 2 days ago at [facility] with severe colitis and abdominal pain and the patient was left alone with not much help at the time. She apparently developed for the last 48 hours to have significant dyspnea with shortness of breath with severe hypoxia with pulse ox running in the 70s. Patient had worsening edema as well and according to her she been ehsan ing her Lasix regularly but since her has been out of the picture patient has not been watching her salt intake and not been very precise on her time with medication. Family brought her to the emergency department because of severe dyspnea and respiratory failure found to have pulse ox running 73 percentile after 5 L of O2 initially pulse ox is above 90 percentile she required BiPAP to keep her pulse ox higher. Testing at the time was done with her chest x-ray showed significant cephalization and bilateral pleural effusion with cardiomegaly and mild to moderate central vascular congestion and interstitial edema consistent with CHF. Her blood test shows influenza negative BNP was 31,500 with slightly declining kidney function with GFR down to 35 percentile only. With above symptoms patient was placed on IV diuretics continue BiPAP start her back on her updraft treatment patient be seen cardiology and pulmonary. Her echocardiogram was done in August 2020 also she had heart catheter in August 2020 at the time and found to have her bypass grafts are patent. With the above sign and symptom patient was hospitalized with CHF exacerbation along with mild COPD exacerbation as well, will be admitted to the hospital will continue diuretics echocardiogram will be done again will watch patient daily weight and intake and output watch kidney function carefully and have an aggressive management for her COPD as well. Despite no sign of infection at this point patient will be on cephalosporin and azithromycin for now better coverage for bronchitis. 08/09: Patient is seen today on the cardiac stepdown unit. She is currently on 6 L nasal cannula with pulse ox of 93%, blood pressure 126/59, afebrile, heart rate in the 80s and 90s. Repeat blood work. Sodium 133, potassium 6.3 status post Lokelma 10 mg 1. Chem supplement discontinued potassium. WBC 2.8, hemoglobin 10.2, platelet count 203. BUN 31 and creatinine 1.53. Levemir increased to 30 units at bedtime and NovoLog scheduled with meals increased to 10 and NovoLog scale added. Patient is currently on IV Lasix 40 mg every 12 hours and IV Solu-Medrol. Patient is followed by pulmonary medicine and cardiology. Echocardiogram is obtained and report pending. 08/10: Patient is currently on 6 L nasal cannula with pulse ox of 93%, afebrile, heart rate in the 80s, blood pressure 126/62. Repeat blood work reveals sodium 139, potassium 4.7, chloride 104, CO2 20, BUN 46 creatinine 1.92. Capillary blood glucose improved this morning after insulin changes on yesterday running 187-197. Patient's breathing is improving slowly. She has less lower extremity edema. Patient followed by cardiology and pulmonary medicine. Patient has been seen by therapy with recommendation for home care. Echocardiogram reveals EF of 30%, moderate mitral, mild aortic and tricuspid regurgitation. Patient updated regarding 's status and that he will be discharged today. REVIEW OF SYSTEMS Constitutional: No fever, no chills, no night sweats. No weight change. No weakness, fatigue or lethargy. No daytime sleepiness. EENT: No headache. No blurred vision or double vision, no loss of vision. No loss of Hearing, no ringing in the ears, no dizziness. No nasal drainage or congestion. No epistaxis. No sore throat. Lungs: Reports shortness of breath cough wheezes with significant edema-impro ving. Cardiovascular: positive shortness of breath with PND orthopnea mild palpitation with worsening edema at the time with no chest pain, Abdominal: No abdominal pain. No nausea, vomiting. No diarrhea. No constipation. No bloody or tarry stools. No loss of appetite. Genitourinary: No dysuria, increased frequency, urgency. No urinary retention. Musculoskeletal: No myalgias. No muscle weakness, no gait dysfunction, no frequent falls. No back pain. No neck pain. Integumentary: No wounds, no lesions. No rash or pruritus. No unusual bruising. Significant amputation of first and second toe on the left side with mild irritation around it only. The right side patient had right big toe amputation as well along with amputation of the second toe with slight scar tissue from debridement was done recently. Neurologic: No aphasia. No facial droop. No change in mentation. No head injury. No headache. No paralysis. No paresthesia. Psychiatric: No depression. No anxiety. No mood swings. Endocrine: No abnormal blood sugars. No weight change. No excessive sweating or thirst. No cold intolerance. PHYSICAL EXAMINATION Gen: This is a 71 year-old obese female. She is resting in bed and appears to be comfortable and in no acute distress. Patient is currently on oxygen at 6 L nasal cannula HEENT: Head is atraumatic, normocephalic. Pupils equal, round. Sclerae is anicteric. NECK: Supple. No JVD. No lymphadenopathy. No thyromegaly. LUNGS: Diminished to the bilateral bases. No wheezes or rhonchi. No intercostal retractions. HEART: Regular rate and rhythm. No murmur. ABDOMEN: Soft. Bowel sounds are present. No masses. No tenderness. EXTREMITIES: No pedal edema. No calf tenderness. Right great toe amputation, left toe amputation significant non-healing ulcer in the left foot on the lateral side that is to area one of the base of the fifth toe measure 11 cm another one about an inch from the fifth toe between the 2 and ankle area with an open spot and ulcerated area more deeper with slight exposure bone. NEUROLOGICAL: Patient is awake, alert and oriented x3. Cranial nerves 2 through 12 are grossly intact. ASSESSMENT AND PLAN 1 acute hypoxic respiratory failure secondary to acute on chronic systolic and diastolic heart failure and COPD exacerbation. Continue oxygen. Consult with pulmonary medicine and cardiology appreciated. 2 CHF exacerbation: Combination of systolic and diastolic. Continue IV Lasix 40 mg every 12 hours, monitor I&O and daily weights, monitor renal function and electrolytes. 3 COPD exacerbation. Continue albuterol every 6 hours as needed, Solu-Medrol 40 mg IV every 8 hours. Pulmonary consultation appreciated. 4. Coronary artery disease with previous history of 4 vessel CABG. Patient's parachute panel joiner is Dr. Brown at [facility]. Patient had an acute inferior ST elevation myocardial infarction post heart catheter and stent placement of the SVG to the RCA which was done in September 2020. Still on secondary prevention titrate medication. 5. history of DVT and PE: Remain on anticoagulation with eliquis. 6. Diabetes mellitus type 2, insulin requiring, uncontrolled with hyperglycemia. Continue Levemir increased to 30 mg at bedtime, continue NovoLog increased to 10 units with meals and add NovoLog scale. 7 acute kidney injury with chronic kidney disease: Continue with gentle hydration repeat BUN/creatinine in 24 hours. Continue to monitor. 8 history of CVA: Has no major residual except balance gait and mild memory loss. 9 hypertension: Remain on Norvasc 5 mg a day along and metoprolol succinate 25 mg daily. Discontinue lisinopril due to worsening renal function. 10 hyperlipidemia: Continue patient on statin which doesn't look like in her list of medication at this point but I believe patient was on atorvastatin 80 mg a day. 11 severe diabetic neuropathy with worsening PAD as well: Patient remain on Lyrica 75 mg at bedtime we'll titrate dose higher to twice a day if needed. 12 Peripheral vascular disease with previous stenting of the right lower extremity. Patient regularly follows with Dr. Gregory. 13 recurrent depression: Remain on Cymbalta. 14 DVT prophylaxis: Patient will continue all her questions. 15 GI prophylaxis: Remain on pantoprazole. CODE STATUS: Full code. DISCHARGE PLAN Home with [facility] Impression and plan of care have been directed as dictated by the signing physician. Emily Higginbotham nurse practitioner acting as scribe for signing physician. Objective - Vital Signs Vital signs: Vital Signs Temp 98.4 F 08/10/21 08:00 Pulse 86 08/10/21 08:00 Resp 18 08/10/21 08:00 BP 126/62 08/10/21 08:00 Pulse Ox 93 L 08/10/21 08:00 Intake & Output 04/08/10/21 08/10/21 18:59 06:59 18:59 Intake Total 300 Output Total 800 Balance -500 Intake: Oral 300 Output: Urine 800 Other: Voiding Method Toilet # Voids 1 - Labs CBC & Chem 7: 08/09/21 03:28 08/10/21 08:39 Labs: Abnormal Lab Results - Last 24 Hours (Table) 08/09/21 08/09/21 08/09/21 Range/Units 11:37 16:47 20:03 POC Glucose (mg/dL) 339 H 342 H 301 H (75-99) mg/dL 08/10/21 08/10/21 Range/Units 05:57 06:45 POC Glucose (mg/dL) 187 H 197 H (75-99) mg/dL
[2021-08-10 11:43] LABS: Glucose,Whole Blood 276 mg/dL (75-99)
--- NOTE | 2021-08-10 13:13 | P.PN ---
Subjective Progress Note Date: 08/10/21 71-year-old female patient, known history of CAD, previous four-vessel bypass surgery, previous history of acute inferior ST segment elevation myocardial infarction post cardiac catheterization and stenting of SVG to RCA done in September 2020 along with history of diabetes mellitus type 2 insulin-dependent, diabetic peripheral neuropathy, diabetic foot ulcers with previous history of osteomyelitis, previous history of a chronic systolic heart failure, COPD, CVA without any residual deficits, hypertension, chronic stage III kidney disease hyperlipidemia and history of depression. Previous echocardiogram from 2020 has shown an ejection fraction of around 40-45% in addition to moderate concentric LVH, segmental motion abnormalities without any significant valvular disease. Note that the patient has had previous amputation of the right great toe in 2014 and subsequent toe amputation on the left and right second toe amputation June 2020. The patient came into the emergency department on 08/08/2021 for increased shortness of breath. She was earlier at [facility] where she und erwent further amputation of the toe and following that the patient was discharged to [facility] [place] where she was discharged approximately a week ago. She was still having issues with increased edema and swelling in lower extremities, weight gain and fluid overload in the same time the patient was having worsening shortness of breath. She was found to be hypoxic by the home care nurses and the patient was pulse oxing around 73% 2 L approximately nasal cannula. She denies having any chest pain. No reported cough sputum production chest that is so wheezing. She is an ex-smoker. She has history of COPD. In the ED, the patient was found to be hemodynamically stable. She was afebrile. She was placed on 6 L O2 nasal cannula to bring her saturation above 90%. Initial blood work showed a white cell count of 6.6 with a hemoglobin of 11.2 and a platelet count of 238 and the patient had a sodium level of 137 with a potassium level of 5.3, BUN of 26 with a creatinine of 1.5 and a glucose of 187 LFTs were normal, BUN was at 26 with a creatinine of 1.5. Coagulation profile was within normal limits. Potassium level was at 5.3, lactic acid level was at 1.0, proBNP level was 31,500 and a troponin level was at 0.031. Influenza A and B screening was negative. Chest x-ray showed cardiomegaly and pulmonary edema consistent with CHF. Based on that, patient was hospitalized in the pulmonary consultation was requested. She did receive a dose of Lasix 80 mg IV in the emergency department. 08/10/2021, I'm seeing the patient for a follow-up. The patient is doing better and the patient is less short of breath compared to yesterday. She is also reported some improvement in swelling lower eczematous bilaterally. Echo of the heart was done and showed an ejection fraction of 30% long with mild MR, and mild aortic regurgitation. On today's evaluation, creatinine is up to 1.9 and the patient continues to be on IV Lasix. Potassium is at 5.7 with a BUN of 46. The patient remains on IV Rocephin, IV Solu Medrol 40 mg every 8 hours and this dose was tapered today. The patient is on long-term and to coagulation with Eliquis 5 mg by mouth twice a day. The patient remains on Lasix 40 mg IV push every 12 hours. Objective - Vital Signs Vital signs: Vital Signs Temp 98.4 F 08/10/21 08:00 Pulse 86 08/10/21 08:00 Resp 18 08/10/21 08:00 BP 126/62 08/10/21 08:00 Pulse Ox 93 L 08/10/21 08:00 Intake & Output 08/09/21 08/10/21 08/10/21 18:59 06:59 18:59 Intake Total 300 Output Total 800 Balance -500 Intake: Oral 300 Output: Urine 800 Other: Voiding Method Toilet Toilet # Voids 1 - Exam Gen: This is a 71 year-old obese female. Breathing is nonlabored and the patient is on 6 liters 02 NC HEENT: Head is atraumatic, normocephalic. Pupils equal, round. Sclerae is anicteric. NECK: Supple. No JVD. No lymphadenopathy. No thyromegaly. LUNGS: Clear to auscultation. No wheezes and there is diminished BS and the patient has crackles in the lung bases bilateral. No intercostal retractions. Cardiac exam revealed the PMI to be normally situated and sized. The rhythm was regular and no extrasystoles were noted during several minutes of auscultation. The first and second heart sounds were normal and physiologic splitting of the second heart sound was noted. There were no murmurs, rubs, clicks, or gallops. Abdominal exam revealed normal bowel sounds. The abdomen was soft, non-tender, and without masses, organomegaly, or appreciable enlargement of the abdominal aorta. EXTREMITIES: pedal edema. No calf tenderness. Right great toe amputation, NEUROLOGICAL: Patient is awake, alert and oriented x3. Cranial nerves 2 through 12 are grossly intact. - Labs CBC & Chem 7: 08/09/21 03:28 08/10/21 08:39 Labs: Abnormal Lab Results - Last 24 Hours (Table) 08/09/21 08/09/21 08/10/21 Range/Units 16:47 20:03 05:57 Potassium (3.5-5.1) mmol/L Carbon Dioxide (22-30) mmol/L BUN (7-17) mg/dL Creatinine (0.52-1.04) mg/dL Glucose (74-99) mg/dL POC Glucose (mg/dL) 342 H 301 H 187 H (75-99) mg/dL 08/10/21 08/10/21 08/10/21 Range/Units 06:45 08:39 11:41 Potassium 5.7 H (3.5-5.1) mmol/L Carbon Dioxide 20 L (22-30) mmol/L BUN 46 H (7-17) mg/dL Creatinine 1.92 H (0.52-1.04) mg/dL Glucose 176 H (74-99) mg/dL POC Glucose (mg/dL) 197 H 276 H (75-99) mg/dL Assessment and Plan Plan: Acute CHF exacerbation/ pulmonary edema, clinically improving and the patient is currently on 6 L of O2 nasal cannula and this should be weaned off Chronic systolic CHF with ejection fraction of 40-45%, and the repeat echo cardiac exam showed an ejection fraction of 30% with interval worsening of the LV function CAD and previous inferior wall ST elevated myocardial infarction, status post heart catheterization and angioplasty of the SVG to the RCA and the patient is post four-vessel bypass grafting Paroxysmal A. fib with RVR , current rhythm is normal sinus rhythm, maintained on snf anticoagulation with Eliquis CKD stage III Previous left big toe amputation site related to osteomyelitis in June 2020 Diabetes type 2 chronic bronchial asthma, mild intermittent History of carotid artery disease with bilateral carotid endarterectomy Previous history of right great toe amputation in 2014 \ Peripheral vascular disease with previous stenting of the right lower extremity History of CVA, no deficits for now Hypertension Hyperlipidemia Depression positive for COVID-19 on April 23, 2021 PAD and bilateral carotid end arterectomy Plan IV lasix 40 mg q 12 Monitor renal function Wean down FiO2 and the patient is currently on 6 L of O2 nasal cannula wean Fio2 to maintain Sao2 >90 Duoneb QID Iv Solumedrol, dose has been tapered down to 40 mg every 8 hours Eliquis Po Monitor renal function with creatinine is up to 1.8 Will FU
[2021-08-10 16:33] LABS: Glucose,Whole Blood 213 mg/dL (75-99)
[2021-08-10 20:01] LABS: Glucose,Whole Blood 189 mg/dL (75-99)
[2021-08-10] MEDS: INSULIN DETEMIR (LEVEMIR) 100 UNIT/ML SYR SQ SCH (20:52)
[2021-08-10] MEDS: MELATONIN 5 MG TABLET PO SCH (20:52)
[2021-08-10] MEDS: DULoxetine HCL 60 MG CAPSULE.DR PO SCH (20:52)
[2021-08-10] MEDS: MAGNESIUM OXIDE 400 MG TAB PO SCH (20:52)
[2021-08-10] MEDS: ALBUTEROL NEBULIZED 2.5 MG/3 ML INHALATION PRN (20:55)
[2021-08-10] MEDS: PREGABALIN 75 MG CAP PO SCH (20:57)
[2021-08-10] MEDS: MONTELUKAST 10 MG TAB PO SCH (20:57)
[2021-08-10] MEDS: METOPROLOL SUCCINATE (ER) 25 MG TAB.ER.24H PO SCH (20:57)
[2021-08-11 06:56] LABS: Glucose,Whole Blood 144 mg/dL (75-99)
[2021-08-11 07:40] LABS: Anisocytosis Slight; HCT 35.5 % (34.0-46.0); HGB 10.4 gm/dL (11.4-16.0); Hypochromasia Marked; MCH 28.9 pg (25.0-35.0); MCHC 29.3 g/dL (31.0-37.0); MCV 98.8 fL (80.0-100.0); Macrocytosis Slight; Mean Platelet Volume 8.8; Platelet Count 181 k/uL (150-450); RBC 3.59 m/uL (3.80-5.40); RDW 16.4 % (11.5-15.5)
[2021-08-11 07:55] LABS: Calcium 8.2 mg/dL (8.4-10.2); Potassium 4.8 mmol/L (3.5-5.1)
[2021-08-11] MEDS: PANTOPRAZOLE 40 MG TABLET PO SCH (08:13)
[2021-08-11] MEDS: INSULIN ASPART (NovoLOG) 100 UNIT/ML VIAL SQ SCH ×8 (08:13→20:45)
[2021-08-11] MEDS: methylPREDNISolone SOD SUCCI 40 MG/ML 1 ML VIAL IV SCH ×3 (08:41→23:18)
[2021-08-11] MEDS: FUROSEMIDE 10 MG/ML 4 ML VIAL IV SCH ×2 (08:41→20:45)
[2021-08-11] MEDS: ASCORBIC ACID 500 MG TAB PO SCH (08:42)
[2021-08-11] MEDS: APIXABAN 5 MG TAB PO SCH ×2 (08:42→20:45)
[2021-08-11] MEDS: amLODIPine 5 MG TAB PO SCH (08:42)
[2021-08-11] MEDS: MULTIVITAMINS, THERA 1 EACH TAB PO SCH (08:42)
--- NOTE | 2021-08-11 09:46 | XR ---
EXAMINATION TYPE: XR chest 1V portable DATE OF EXAM: 08/11/2021 COMPARISON: 08/08/2021 INDICATION: Short of breath TECHNIQUE: Single frontal view of the chest is obtained. FINDINGS: The heart size is mildly prominent. The pulmonary vasculature is normal. Small left pleural effusion appears to be present. Findings are improved from comparison. IMPRESSION: 1. Small left pleural effusion. 2. Cardiomegaly.
--- NOTE | 2021-08-11 10:31 | P.PN ---
Subjective Progress Note Date: 08/11/21 HISTORY OF PRESENT ILLNESS This is a 71-year-old female patient of Dr. Sanderson with past medical history of diabetes mellitus type 2, hypertension, hyperlipidemia, CVA in 2013 with no residuals, coronary artery disease status post 4 vessel CABG, bilateral carotid endarterectomies, mild intermittent asthma, osteomyelitis status post right great toe amputation 2014 and left toe amputation 8 left big toe amputation as well, Patient was hospitalized recently at [facility] for osteomyelitis and severe cellulitis of the right foot require debridement of the second and part of the third toe which was done successfully and patient was placed on IV antibiotic with vancomycin and then cefepime with patient developed to have slightly worsening shortness of breath along with debility and ended up going to [facility] on the [facility] over 2 weeks which ended about 10 days ago when finally patient was able to go home but according to her developed to have significant hypoxia with worsening shortness of breath the day before discharge but was still discharged home with no change in management. Patient was still on home O2 along with updraft treatment. Surprisingly her was hospitalized 2 days ago at [facility] with severe colitis and abdominal pain and the patient was left alone with not much help at the time. She apparently developed for the last 48 hours to have significant dyspnea with shortness of breath with severe hypoxia with pulse ox running in the 70s. Patient had worsening edema as well and according to her she been ehsan ing her Lasix regularly but since her has been out of the picture patient has not been watching her salt intake and not been very precise on her time with medication. Family brought her to the emergency department because of severe dyspnea and respiratory failure found to have pulse ox running 73 percentile after 5 L of O2 initially pulse ox is above 90 percentile she required BiPAP to keep her pulse ox higher. Testing at the time was done with her chest x-ray showed significant cephalization and bilateral pleural effusion with cardiomegaly and mild to moderate central vascular congestion and interstitial edema consistent with CHF. Her blood test shows influenza negative BNP was 31,500 with slightly declining kidney function with GFR down to 35 percentile only. With above symptoms patient was placed on IV diuretics continue BiPAP start her back on her updraft treatment patient be seen cardiology and pulmonary. Her echocardiogram was done in August 2020 also she had heart catheter in August 2020 at the time and found to have her bypass grafts are patent. With the above sign and symptom patient was hospitalized with CHF exacerbation along with mild COPD exacerbation as well, will be admitted to the hospital will continue diuretics echocardiogram will be done again will watch patient daily weight and intake and output watch kidney function carefully and have an aggressive management for her COPD as well. Despite no sign of infection at this point patient will be on cephalosporin and azithromycin for now better coverage for bronchitis. 08/09: Patient is seen today on the cardiac stepdown unit. She is currently on 6 L nasal cannula with pulse ox of 93%, blood pressure 126/59, afebrile, heart rate in the 80s and 90s. Repeat blood work. Sodium 133, potassium 6.3 status post Lokelma 10 mg 1. Chem supplement discontinued potassium. WBC 2.8, hemoglobin 10.2, platelet count 203. BUN 31 and creatinine 1.53. Levemir increased to 30 units at bedtime and NovoLog scheduled with meals increased to 10 and NovoLog scale added. Patient is currently on IV Lasix 40 mg every 12 hours and IV Solu-Medrol. Patient is followed by pulmonary medicine and cardiology. Echocardiogram is obtained and report pending. 08/10: Patient is currently on 6 L nasal cannula with pulse ox of 93%, afebrile, heart rate in the 80s, blood pressure 126/62. Repeat blood work reveals sodium 139, potassium 4.7, chloride 104, CO2 20, BUN 46 creatinine 1.92. Capillary blood glucose improved this morning after insulin changes on yesterday running 187-197. Patient's breathing is improving slowly. She has less lower extremity edema. Patient followed by cardiology and pulmonary medicine. Patient has been seen by therapy with recommendation for home care. Echocardiogram reveals EF of 30%, moderate mitral, mild aortic and tricuspid regurgitation. Patient updated regarding 's status and that he will be discharged today. 08/11: Patient is doing much better she is not on BiPAP anymore she is on 4 L O2 pulse ox running about 90 percentile, found on the side of the bed feeding herself. Echocardiogram showed significant decrease in ejection fraction compared to last time patient remain on medical management at this point still have moderate mitral regurgitation with mild to severe aortic regurgitation. Her debrided also around the right second toe has been better ulcerated site on the left foot has improved some. We'll continue adjusting her medication continue medical management titrate PTOT and see if patient will be ready for home sometimes on the weekend or on Friday. REVIEW OF SYSTEMS Constitutional: No fever, no chills, no night sweats. No weight change. No weakness, fatigue or lethargy. No daytime sleepiness. EENT: No headache. No blurred vision or double vision, no loss of vision. No loss of Hearing, no ringing in the ears, no dizziness. No nasal drainage or congestion. No epistaxis. No sore throat. Lungs: Reports shortness of breath cough wheezes with significant edema- improving. Cardiovascular: positive shortness of breath with PND orthopnea mild palpitation with worsening edema at the time with no chest pain, Abdominal: No abdominal pain. No nausea, vomiting. No diarrhea. No constipation. No bloody or tarry stools. No loss of appetite. Genitourinary: No dysuria, increased frequency, urgency. No urinary retention. Musculoskeletal: No myalgias. No muscle weakness, no gait dysfunction, no frequent falls. No back pain. No neck pain. Integumentary: No wounds, no lesions. No rash or pruritus. No unusual bruising. Significant amputation of first and second toe on the left side with mild irritation around it only. The right side patient had right big toe amputation as well along with amputation of the second toe with slight scar tissue from debridement was done recently. Neurologic: No aphasia. No facial droop. No change in mentation. No head injury. No headache. No paralysis. No paresthesia. Psychiatric: No depression. No anxiety. No mood swings. Endocrine: No abnormal blood sugars. No weight change. No excessive sweating or thirst. No cold intolerance. PHYSICAL EXAMINATION Gen: This is a 71 year-old obese female. She is resting in bed and appears to be comfortable and in no acute distress. Patient is currently on oxygen at 6 L nasal cannula HEENT: Head is atraumatic, normocephalic. Pupils equal, round. Sclerae is anicteric. NECK: Supple. No JVD. No lymphadenopathy. No thyromegaly. LUNGS: Diminished to the bilateral bases. No wheezes or rhonchi. No intercostal retractions. HEART: Regular rate and rhythm. No murmur. ABDOMEN: Soft. Bowel sounds are present. No masses. No tenderness. EXTREMITIES: No pedal edema. No calf tenderness. Right great toe amputation, left toe amputation significant non-healing ulcer in the left foot on the lateral side that is to area one of the base of the fifth toe measure 11 cm another one about an inch from the fifth toe between the 2 and ankle area with an open spot and ulcerated area more deeper with slight exposure bone. NEUROLOGICAL: Patient is awake, alert and oriented x3. Cranial nerves 2 through 12 are grossly intact. ASSESSMENT AND PLAN 1 acute hypoxic respiratory failure secondary to acute on chronic systolic and diastolic heart failure and COPD exacerbation. Doing slightly better why she is on medication and O2 this point she is not requiring anymore BiPAP. 2 CHF exacerbation: This is mostly systolic dysfunction congestive heart failure we'll continue heavier dose of furosemide at this point while watching kidney function more carefully ejection fraction proven to be less down to 30% only. 3 COPD exacerbation. Still seen pulmonary, switch Solu-Medrol to prednisone at this point continue updraft treatment. 4. Coronary artery disease with previous history of 4 vessel CABG. 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 Patient had an acute inferior ST elevation myocardial infarction post heart catheter and stent placement of the SVG to the RCA which was done in September 2020. Still on secondary prevention titrate medication. 5. history of DVT and PE: Remain on anticoagulation with eliquis. Stable and doing well. 6. Diabetes mellitus type 2, insulin requiring, uncontrolled with hyperglycemia. Continue Levemir increased to 30 mg at bedtime, continue NovoLog increased to 10 units with meals and add NovoLog scale. 7 acute kidney injury with chronic kidney disease: Continue with gentle hydration repeat BUN/creatinine in 24 hours. Continue to monitor. 8 history of CVA: Has no major residual except balance gait and mild memory loss. 9 hypertension: Remain on Norvasc 5 mg a day along and metoprolol succinate 25 mg daily. Discontinue lisinopril due to worsening renal function. The blood pressure is better controlled. 10 hyperlipidemia: Continue patient on statin which doesn't look like in her list of medication at this point but I believe patient was on atorvastatin 80 mg a day. 11 severe diabetic neuropathy with worsening PAD as well: Patient remain on Lyrica 75 mg at bedtime we'll titrate dose higher to twice a day if needed. No worsening symptom of neuropathy at this point. 12 Peripheral vascular disease with previous stenting of the right lower extremity. Patient regularly follows with Dr. Gregory. CODE STATUS: Full code. DISCHARGE PLAN Home with [facility], will try to titrate physical therapy on the weekend see if patient is able to tolerate her and dependency been able to go home with home care. Objective - Vital Signs Vital signs: Vital Signs Temp 97.8 F 08/11/21 08:39 Pulse 89 08/11/21 08:39 Resp 20 08/11/21 08:39 BP 136/71 08/11/21 08:39 Pulse Ox 98 08/11/21 08:39 Intake & Output 08/10/21 08/11/21 08/11/21 18:59 06:59 18:59 Intake Total 480 300 Output Total 2200 Balance 480 -1900 Weight 58 kg Intake: Oral 480 300 Output: Urine 2200 Other: Voiding Method Toilet Toilet # Voids 1 - Labs CBC & Chem 7: 08/11/21 07:22 08/11/21 07:22 Labs: Abnormal Lab Results - Last 24 Hours (Table) 08/10/21 08/10/21 08/10/21 Range/Units 08:39 11:41 16:32 RBC (3.80-5.40) m/uL Hgb (11.4-16.0) gm/dL MCHC (31.0-37.0) g/dL RDW (11.5-15.5) % Potassium 5.7 H (3.5-5.1) mmol/L Carbon Dioxide 20 L (22-30) mmol/L BUN 46 H (7-17) mg/dL Creatinine 1.92 H (0.52-1.04) mg/dL Glucose 176 H (74-99) mg/dL POC Glucose (mg/dL) 276 H 213 H (75-99) mg/dL Calcium (8.4-10.2) mg/dL 08/10/21 08/11/21 08/11/21 Range/Units 20:00 06:51 07:22 RBC 3.59 L (3.80-5.40) m/uL Hgb 10.4 L (11.4-16.0) gm/dL MCHC 29.3 L (31.0-37.0) g/dL RDW 16.4 H (11.5-15.5) % Potassium (3.5-5.1) mmol/L Carbon Dioxide (22-30) mmol/L BUN (7-17) mg/dL Creatinine (0.52-1.04) mg/dL Glucose (74-99) mg/dL POC Glucose (mg/dL) 189 H 144 H (75-99) mg/dL Calcium (8.4-10.2) mg/dL 08/11/21 Range/Units 07:22 RBC (3.80-5.40) m/uL Hgb (11.4-16.0) gm/dL MCHC (31.0-37.0) g/dL RDW (11.5-15.5) % Potassium (3.5-5.1) mmol/L Carbon Dioxide (22-30) mmol/L BUN 55 H (7-17) mg/dL Creatinine 1.89 H (0.52-1.04) mg/dL Glucose 151 H (74-99) mg/dL POC Glucose (mg/dL) (75-99) mg/dL Calcium 8.2 L (8.4-10.2) mg/dL
--- NOTE | 2021-08-11 11:41 | P.PN ---
Subjective Progress Note Date: 08/11/21 71-year-old female patient, known history of CAD, previous four-vessel bypass surgery, previous history of acute inferior ST segment elevation myocardial infarction post cardiac catheterization and stenting of SVG to RCA done in September 2020 along with history of diabetes mellitus type 2 insulin-dependent, diabetic peripheral neuropathy, diabetic foot ulcers with previous history of osteomyelitis, previous history of a chronic systolic heart failure, COPD, CVA without any residual deficits, hypertension, chronic stage III kidney disease hyperlipidemia and history of depression. Previous echocardiogram from 2020 has shown an ejection fraction of around 40-45% in addition to moderate concentric LVH, segmental motion abnormalities without any significant valvular disease. Note that the patient has had previous amputation of the right great toe in 2014 and subsequent toe amputation on the left and right second toe amputation June 2020. The patient came into the emergency department on 08/08/2021 for increased shortness of breath. She was earlier at [facility] where she und erwent further amputation of the toe and following that the patient was discharged to [facility] [place] from where she was discharged approximately a week ago. She was still having issues with increased edema and swelling in lower extremities, weight gain and fluid overload in the same time the patient was having worsening shortness of breath. She was found to be hypoxic by the home care nurses and the patient was pulse oxing around 73% 2 L approximately nasal cannula. She denies having any chest pain. No reported cough sputum production chest that is so wheezing. She is an ex-smoker. She has history of COPD. In the ED, the patient was found to be hemodynamically stable. She was afebrile. She was placed on 6 L O2 nasal cannula to bring her saturation above 90%. Initial blood work showed a white cell count of 6.6 with a hemoglobin of 11.2 and a platelet count of 238 and the patient had a sodium level of 137 with a potassium level of 5.3, BUN of 26 with a creatinine of 1.5 and a glucose of 187 LFTs were normal, BUN was at 26 with a creatinine of 1.5. Coagulation profile was within normal limits. Potassium level was at 5.3, lactic acid level was at 1.0, proBNP level was 31,500 and a troponin level was at 0.031. Influenza A and B screening was negative. Chest x-ray showed cardiomegaly and pulmonary edema consistent with CHF. Based on that, patient was hospitalized in the pulmonary consultation was requested. She did receive a dose of Lasix 80 mg IV in the emergency department. 08/10/2021, I'm seeing the patient for a follow-up. The patient is doing better and the patient is less short of breath compared to yesterday. She is also reported some improvement in swelling lower eczematous bilaterally. Echo of the heart was done and showed an ejection fraction of 30% long with mild MR, and mild aortic regurgitation. On today's evaluation, creatinine is up to 1.9 and the patient continues to be on IV Lasix. Potassium is at 5.7 with a BUN of 46. The patient remains on IV Rocephin, IV Solu Medrol 40 mg every 8 hours and this dose was tapered today. The patient is on long-term and to coagulation with Eliquis 5 mg by mouth twice a day. The patient remains on Lasix 40 mg IV push every 12 hours. 08/11/2021, the patient continues to do well. No specific complaints. Just this has improved. He continues to diurese well. She is negative fluid ba fay. She remains on Lasix 40 mg IV every 12 hours. The blood work from today was noted. BUN is at 55 with a creatinine of 1.8, sodium is at 140, the white cell count is at 80 with a hemoglobin of 10.4. The patient has no other new complaints. She remains on bronchodilators patient remains steroids. She remains on antibiotics and diuretics for now. Repeat chest x-ray that was done today showed a small left-sided pleural effusion along with cardiomegaly. Objective - Vital Signs Vital signs: Vital Signs Temp 97.8 F 08/11/21 08:39 Pulse 89 08/11/21 08:39 Resp 20 08/11/21 08:39 BP 136/71 08/11/21 08:39 Pulse Ox 98 08/11/21 08:39 Intake & Output 08/10/21 08/11/21 08/11/21 18:59 06:59 18:59 Intake Total 480 300 Output Total 2200 Balance 480 -1900 Weight 58 kg Intake: Oral 480 300 Output: Urine 2200 Other: Voiding Method Toilet Toilet # Voids 1 - Exam Gen: This is a 71 year-old obese female. Breathing is nonlabored and the patient is on 6 liters 02 NC HEENT: Head is atraumatic, normocephalic. Pupils equal, round. Sclerae is anicteric. NECK: Supple. No JVD. No lymphadenopathy. No thyromegaly. LUNGS: Clear to auscultation. No wheezes and there is diminished BS and the patient has crackles in the lung bases bilateral. No intercostal retractions. Cardiac exam revealed the PMI to be normally situated and sized. The rhythm was regular and no extrasystoles were noted during several minutes of auscultation. The first and second heart sounds were normal and physiologic splitting of the second heart sound was noted. There were no murmurs, rubs, clicks, or gallops. Abdominal exam revealed normal bowel sounds. The abdomen was soft, non-tender, and without masses, organomegaly, or appreciable enlargement of the abdominal aorta. EXTREMITIES: pedal edema. No calf tenderness. Right great toe amputation, NEUROLOGICAL: Patient is awake, alert and oriented x3. Cranial nerves 2 through 12 are grossly intact. - Labs CBC & Chem 7: 08/11/21 07:22 08/11/21 07:22 Labs: Abnormal Lab Results - Last 24 Hours (Table) 08/10/21 08/10/21 08/10/21 Range/Units 11:41 16:32 20:00 RBC (3.80-5.40) m/uL Hgb (11.4-16.0) gm/dL MCHC (31.0-37.0) g/dL RDW (11.5-15.5) % BUN (7-17) mg/dL Creatinine (0.52-1.04) mg/dL Glucose (74-99) mg/dL POC Glucose (mg/dL) 276 H 213 H 189 H (75-99) mg/dL Calcium (8.4-10.2) mg/dL 08/11/21 08/11/21 08/11/21 Range/Units 06:51 07:22 07:22 RBC 3.59 L (3.80-5.40) m/uL Hgb 10.4 L (11.4-16.0) gm/dL MCHC 29.3 L (31.0-37.0) g/dL RDW 16.4 H (11.5-15.5) % BUN 55 H (7-17) mg/dL Creatinine 1.89 H (0.52-1.04) mg/dL Glucose 151 H (74-99) mg/dL POC Glucose (mg/dL) 144 H (75-99) mg/dL Calcium 8.2 L (8.4-10.2) mg/dL Assessment and Plan Plan: Acute CHF exacerbation/ pulmonary edema, clinically improving and the patient is currently on 6 L of O2 nasal cannula and this should be weaned off, clinically improving Chronic systolic CHF with ejection fraction of 40-45%, and the repeat echo cardiac exam showed an ejection fraction of 30% with interval worsening of the LV function CAD and previous inferior wall ST elevated myocardial infarction, status post heart catheterization and angioplasty of the SVG to the RCA and the patient is post four-vessel bypass grafting Paroxysmal A. fib with RVR , current rhythm is normal sinus rhythm, maintained on group home anticoagulation with Eliquis CKD stage III Previous left big toe amputation site related to osteomyelitis in June 2020 Diabetes type 2 chronic bronchial asthma, mild intermittent History of carotid artery disease with bilateral carotid endarterectomy Previous history of right great toe amputation in 2014 \ Peripheral vascular disease with previous stenting of the right lower extremity History of CVA, no deficits for now Hypertension Hyperlipidemia Depression positive for COVID-19 on April 23, 2021 PAD and bilateral carotid end arterectomy Plan Wean down the FiO2 as tolerated to maintain a saturation above 90% Continue IV lasix 40 mg q 12 Monitor renal function Wean down FiO2 and the patient is currently on 6 L of O2 nasal cannula Duoneb QID Iv Solumedrol, dose has been tapered down to 40 mg every 8 hours Eliquis Po Monitor renal function with creatinine is up to 1.7 Will TRACY
[2021-08-11 11:59] LABS: Glucose,Whole Blood 368 mg/dL (75-99)
--- NOTE | 2021-08-11 12:01 | P.PN ---
Subjective Progress Note Date: 08/11/21 Patient is examined today resting comfortably in bed. She reports her shortness of breath continues to improve. She denies chest pain. Patient still has moderate lower extremity pitting edema. She continues on Lasix 40 mg IV every 12 hours. Creatinine function continues to improve. Creatinine is 1.8 today. Will continue with IV Lasix for diuresing and transition patient to oral tomorrow. Vital signs are stable will continue to monitor kidney function Objective - Vital Signs Vital signs: Vital Signs Temp 97.8 F 08/11/21 08:39 Pulse 89 08/11/21 08:39 Resp 20 08/11/21 08:39 BP 136/71 08/11/21 08:39 Pulse Ox 98 08/11/21 08:39 Intake & Output 08/10/21 08/11/21 08/11/21 18:59 06:59 18:59 Intake Total 480 300 Output Total 2200 Balance 480 -1900 Weight 58 kg Intake: Oral 480 300 Output: Urine 2200 Other: Voiding Method Toilet Toilet # Voids 1 - Exam PHYSICAL EXAM: VITAL SIGNS: Reviewed. GENERAL: Well-developed in no acute distress. HEENT: Head is normocephalic. Pupils are equal, round. Sclerae anicteric. Mucous membranes of the mouth are moist. NECK: Supple. No JVD or thyromegaly RESPIRATORY: Respirations even and unlabored. Lungs diminished to auscultation bilaterally. CARDIO: Regular rate and rhythm. S1 and S2 heard. No murmur or gallops. EXTREMITIES: Normal range of motion. No clubbing or cyanosis. Peripheral pulses intact. Moderate pitting bilateral lower extremity edema NEURO: Orientated to person, time, mood is appropriate - Labs CBC & Chem 7: 08/11/21 07:22 08/11/21 07:22 Labs: Abnormal Lab Results - Last 24 Hours (Table) 08/10/21 08/10/21 08/11/21 Range/Units 16:32 20:00 06:51 RBC (3.80-5.40) m/uL Hgb (11.4-16.0) gm/dL MCHC (31.0-37.0) g/dL RDW (11.5-15.5) % BUN (7-17) mg/dL Creatinine (0.52-1.04) mg/dL Glucose (74-99) mg/dL POC Glucose (mg/dL) 213 H 189 H 144 H (75-99) mg/dL Calcium (8.4-10.2) mg/dL 08/11/21 08/11/21 Range/Units 07:22 07:22 RBC 3.59 L (3.80-5.40) m/uL Hgb 10.4 L (11.4-16.0) gm/dL MCHC 29.3 L (31.0-37.0) g/dL RDW 16.4 H (11.5-15.5) % BUN 55 H (7-17) mg/dL Creatinine 1.89 H (0.52-1.04) mg/dL Glucose 151 H (74-99) mg/dL POC Glucose (mg/dL) (75-99) mg/dL Calcium 8.2 L (8.4-10.2) mg/dL Assessment and Plan Assessment: Acute on chronic congestive heart failure with reduced EF Acute on chronic hypoxic respiratory failure Acute COPD exacerbation Coronary artery disease with previous CABG 4 History of DVT/PE Acute on chronic kidney disease Hypertension Hyperlipidemia Diabetes Plan: Kidney with IV Lasix Continue with current cardiac medications Recheck electrolytes and kidney function in the morning continue to titrate oxygen as tolerated Continue with telemetry monitoring Further recommendations based on clinical course The above impression and plan of care have been discussed and directed by the signing physician. Myah Kellogg, nurse practitioner, acting as scribe for signing physician.
[2021-08-11 16:24] LABS: Glucose,Whole Blood 295 mg/dL (75-99)
[2021-08-11] MEDS: ALBUTEROL NEBULIZED 2.5 MG/3 ML INHALATION PRN (19:35)
[2021-08-11 19:56] LABS: Glucose,Whole Blood 288 mg/dL (75-99)
[2021-08-11] MEDS: DULoxetine HCL 60 MG CAPSULE.DR PO SCH (20:45)
[2021-08-11] MEDS: METOPROLOL SUCCINATE (ER) 25 MG TAB.ER.24H PO SCH (20:45)
[2021-08-11] MEDS: INSULIN DETEMIR (LEVEMIR) 100 UNIT/ML SYR SQ SCH (20:45)
[2021-08-11] MEDS: MELATONIN 5 MG TABLET PO SCH (20:45)
[2021-08-11] MEDS: MONTELUKAST 10 MG TAB PO SCH (20:45)
[2021-08-11] MEDS: PREGABALIN 75 MG CAP PO SCH (20:45)
[2021-08-11] MEDS: MAGNESIUM OXIDE 400 MG TAB PO SCH (20:45)
[2021-08-12 05:37] LABS: Glucose,Whole Blood 209 mg/dL (75-99)
[2021-08-12] MEDS: PANTOPRAZOLE 40 MG TABLET PO SCH (07:08)
[2021-08-12] MEDS: INSULIN ASPART (NovoLOG) 100 UNIT/ML VIAL SQ SCH ×7 (07:08→20:48)
[2021-08-12 08:56] LABS: Anisocytosis Slight; HCT 36.5 % (34.0-46.0); HGB 11.1 gm/dL (11.4-16.0); Hypochromasia Marked; MCH 29.7 pg (25.0-35.0); MCHC 30.3 g/dL (31.0-37.0); Macrocytosis Slight; Mean Platelet Volume 8.4; Platelet Count 252 k/uL (150-450); RBC 3.73 m/uL (3.80-5.40); RDW 16.3 % (11.5-15.5); WBC 8.3 k/uL (3.8-10.6)
[2021-08-12] MEDS: methylPREDNISolone SOD SUCCI 40 MG/ML 1 ML VIAL IV SCH (09:09)
[2021-08-12] MEDS: ASCORBIC ACID 500 MG TAB PO SCH (09:09)
[2021-08-12] MEDS: amLODIPine 5 MG TAB PO SCH (09:09)
[2021-08-12] MEDS: APIXABAN 5 MG TAB PO SCH ×2 (09:09→20:48)
[2021-08-12] MEDS: MULTIVITAMINS, THERA 1 EACH TAB PO SCH (09:09)
[2021-08-12] MEDS: FUROSEMIDE 10 MG/ML 4 ML VIAL IV SCH (09:09)
[2021-08-12 09:17] LABS: Albumin 3.5 g/dL (3.5-5.0); Calcium 7.7 mg/dL (8.4-10.2); Total Bilirubin 0.8 mg/dL (0.2-1.3); Total Protein 7.3 g/dL (6.3-8.2)
[2021-08-12 09:18] LABS: Potassium 4.4 mmol/L (3.5-5.1)
--- NOTE | 2021-08-12 12:03 | P.PN ---
Subjective Progress Note Date: 08/12/21 71-year-old female patient, known history of CAD, previous four-vessel bypass surgery, previous history of acute inferior ST segment elevation myocardial infarction post cardiac catheterization and stenting of SVG to RCA done in September 2020 along with history of diabetes mellitus type 2 insulin-dependent, diabetic peripheral neuropathy, diabetic foot ulcers with previous history of osteomyelitis, previous history of a chronic systolic heart failure, COPD, CVA without any residual deficits, hypertension, chronic stage III kidney disease hyperlipidemia and history of depression. Previous echocardiogram from 2020 has shown an ejection fraction of around 40-45% in addition to moderate concentric LVH, segmental motion abnormalities without any significant valvular disease. Note that the patient has had previous amputation of the right great toe in 2014 and subsequent toe amputation on the left and right second toe amputation June 2020. The patient came into the emergency department on 08/08/2021 for increased shortness of breath. She was earlier at [facility] where she und erwent further amputation of the toe and following that the patient was discharged to [facility] [place] from where she was discharged approximately a week ago. She was still having issues with increased edema and swelling in lower extremities, weight gain and fluid overload in the same time the patient was having worsening shortness of breath. She was found to be hypoxic by the home care nurses and the patient was pulse oxing around 73% 2 L approximately nasal cannula. She denies having any chest pain. No reported cough sputum production chest that is so wheezing. She is an ex-smoker. She has history of COPD. In the ED, the patient was found to be hemodynamically stable. She was afebrile. She was placed on 6 L O2 nasal cannula to bring her saturation above 90%. Initial blood work showed a white cell count of 6.6 with a hemoglobin of 11.2 and a platelet count of 238 and the patient had a sodium level of 137 with a potassium level of 5.3, BUN of 26 with a creatinine of 1.5 and a glucose of 187 LFTs were normal, BUN was at 26 with a creatinine of 1.5. Coagulation profile was within normal limits. Potassium level was at 5.3, lactic acid level was at 1.0, proBNP level was 31,500 and a troponin level was at 0.031. Influenza A and B screening was negative. Chest x-ray showed cardiomegaly and pulmonary edema consistent with CHF. Based on that, patient was hospitalized in the pulmonary consultation was requested. She did receive a dose of Lasix 80 mg IV in the emergency department. 08/10/2021, I'm seeing the patient for a follow-up. The patient is doing better and the patient is less short of breath compared to yesterday. She is also reported some improvement in swelling lower eczematous bilaterally. Echo of the heart was done and showed an ejection fraction of 30% long with mild MR, and mild aortic regurgitation. On today's evaluation, creatinine is up to 1.9 and the patient continues to be on IV Lasix. Potassium is at 5.7 with a BUN of 46. The patient remains on IV Rocephin, IV Solu Medrol 40 mg every 8 hours and this dose was tapered today. The patient is on long-term and to coagulation with Eliquis 5 mg by mouth twice a day. The patient remains on Lasix 40 mg IV push every 12 hours. 08/11/2021, the patient continues to do well. No specific complaints. Just this has improved. He continues to diurese well. She is negative fluid ba fay. She remains on Lasix 40 mg IV every 12 hours. The blood work from today was noted. BUN is at 55 with a creatinine of 1.8, sodium is at 140, the white cell count is at 80 with a hemoglobin of 10.4. The patient has no other new complaints. She remains on bronchodilators patient remains steroids. She remains on antibiotics and diuretics for now. Repeat chest x-ray that was done today showed a small left-sided pleural effusion along with cardiomegaly. 08/12/2021, the patient has no specific complaints. She is resting comfortably in bed. She remains on Lasix 40 mg IV every 12 hours. Fluid balance is -1 L over the past 24 hours. Creatinine is stable at 1.8 with a BUN of 61. She is on 2 L of oxygen by nasal cannula. She is on IV Solu Medrol and this will be transitioned to prednisone burst taper. She is on Levemir insulin 30 units daily at bedtime along with a 10 units of insulin NovoLog with meals and the sliding scale coverage. No altered mentation. No nausea. No vomiting. No diarrhea. No abdominal pain. The white cell count is at 8.3 with a hemoglobin of 11.1. Aggressive the electrolytes all within normal limits. Objective - Vital Signs Vital signs: Vital Signs Temp 97.5 F L 08/12/21 08:30 Pulse 78 08/12/21 08:30 Resp 16 08/12/21 08:30 BP 127/65 08/12/21 08:30 Pulse Ox 97 08/12/21 08:30 Intake & Output 08/11/21 08/12/21 08/12/21 18:59 06:59 18:59 Intake Total 118 600 120 Output Total 1000 1000 550 Balance -882 -400 -430 Weight 79.5 kg Intake: Oral 118 600 120 Output: Urine 1000 1000 550 Other: Voiding Method Toilet Toilet # Voids 2 - Exam Gen: This is a 71 year-old obese female. Breathing is nonlabored and the patient is on 6 liters 02 NC HEENT: Head is atraumatic, normocephalic. Pupils equal, round. Sclerae is anicteric. NECK: Supple. No JVD. No lymphadenopathy. No thyromegaly. LUNGS: Clear to auscultation. No wheezes and there is diminished BS and the patient has crackles in the lung bases bilateral. No intercostal retractions. Cardiac exam revealed the PMI to be normally situated and sized. The rhythm was regular and no extrasystoles were noted during several minutes of auscultation. The first and second heart sounds were normal and physiologic splitting of the second heart sound was noted. There were no murmurs, rubs, clicks, or gallops. Abdominal exam revealed normal bowel sounds. The abdomen was soft, non-tender, and without masses, organomegaly, or appreciable enlargement of the abdominal aorta. EXTREMITIES: pedal edema. No calf tenderness. Right great toe amputation, NEUROLOGICAL: Patient is awake, alert and oriented x3. Cranial nerves 2 through 12 are grossly intact. - Labs CBC & Chem 7: 08/12/21 08:26 08/12/21 08:26 Labs: Abnormal Lab Results - Last 24 Hours (Table) 08/11/21 08/11/21 08/12/21 Range/Units 16:21 19:53 05:34 RBC (3.80-5.40) m/uL Hgb (11.4-16.0) gm/dL MCHC (31.0-37.0) g/dL RDW (11.5-15.5) % BUN (7-17) mg/dL Creatinine (0.52-1.04) mg/dL Glucose (74-99) mg/dL POC Glucose (mg/dL) 295 H 288 H 209 H (75-99) mg/dL Calcium (8.4-10.2) mg/dL 08/12/21 08/12/21 Range/Units 08:26 08:26 RBC 3.73 L (3.80-5.40) m/uL Hgb 11.1 L (11.4-16.0) gm/dL MCHC 30.3 L (31.0-37.0) g/dL RDW 16.3 H (11.5-15.5) % BUN 61 H (7-17) mg/dL Creatinine 1.81 H (0.52-1.04) mg/dL Glucose 201 H (74-99) mg/dL POC Glucose (mg/dL) (75-99) mg/dL Calcium 7.7 L (8.4-10.2) mg/dL Assessment and Plan Plan: Acute CHF exacerbation/ pulmonary edema, clinically improving and the patient is currently on 2 L of O2 nasal cannula and this should be weaned off, clinically improving, and the patient has no new complaints for now. Chronic systolic CHF with ejection fraction of 40-45%, and the repeat echo cardiac exam showed an ejection fraction of 30% with interval worsening of the LV function CAD and previous inferior wall ST elevated myocardial infarction, status post heart catheterization and angioplasty of the SVG to the RCA and the patient is post four-vessel bypass grafting Paroxysmal A. 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 with Eliquis CKD stage III Previous left big toe amputation site related to osteomyelitis in June 2020 Diabetes type 2 chronic bronchial asthma, mild intermittent History of carotid artery disease with bilateral carotid endarterectomy Previous history of right great toe amputation in 2014 \ Peripheral vascular disease with previous stenting of the right lower extremity History of CVA, no deficits for now Hypertension Hyperlipidemia Depression positive for COVID-19 on April 23, 2021 PAD and bilateral carotid end arterectomy Plan Wean down the FiO2 as tolerated to maintain a saturation above 90%, currently on 2 L Continue IV lasix 40 mg q 12 Monitor renal function Wean down FiO2 and the patient is currently on 6 L of O2 nasal cannula Duoneb QID This continued IV Solu Medrol and put the patient prednisone burst taper Eliquis Po Monitor renal function with creatinine is up to 1.8 Will FU
[2021-08-12 12:09] LABS: Glucose,Whole Blood 299 mg/dL (75-99)
--- NOTE | 2021-08-12 13:19 | P.PN ---
Subjective Progress Note Date: 08/12/21 HISTORY OF PRESENT ILLNESS This is a 71-year-old female patient of Dr. Sanderson with past medical history of diabetes mellitus type 2, hypertension, hyperlipidemia, CVA in 2013 with no residuals, coronary artery disease status post 4 vessel CABG, bilateral carotid endarterectomies, mild intermittent asthma, osteomyelitis status post right great toe amputation 2014 and left toe amputation 8 left big toe amputation as well, Patient was hospitalized recently at [facility] for osteomyelitis and severe cellulitis of the right foot require debridement of the second and part of the third toe which was done successfully and patient was placed on IV antibiotic with vancomycin and then cefepime with patient developed to have slightly worsening shortness of breath along with debility and ended up going to [facility] over 2 weeks which ended about 10 days ago when finally patient was able to go home but according to her developed to have significant hypoxia with worsening shortness of breath the day before discharge but was still discharged home with no change in management. Patient was still on home O2 along with updraft treatment. Surprisingly her was hospitalized 2 days ago at [facility] with severe colitis and abdominal pain and the patient was left alone with not much help at the time. She apparently developed for the last 48 hours to have significant dyspnea with shortness of breath with severe hypoxia with pulse ox running in the 70s. Patient had worsening edema as well and according to her she been ehsan ing her Lasix regularly but since her has been out of the picture patient has not been watching her salt intake and not been very precise on her time with medication. Family brought her to the emergency department because of severe dyspnea and respiratory failure found to have pulse ox running 73 percentile after 5 L of O2 initially pulse ox is above 90 percentile she required BiPAP to keep her pulse ox higher. Testing at the time was done with her chest x-ray showed significant cephalization and bilateral pleural effusion with cardiomegaly and mild to moderate central vascular congestion and interstitial edema consistent with CHF. Her blood test shows influenza negative BNP was 31,500 with slightly declining kidney function with GFR down to 35 percentile only. With above symptoms patient was placed on IV diuretics continue BiPAP start her back on her updraft treatment patient be seen cardiology and pulmonary. Her echocardiogram was done in August 2020 also she had heart catheter in August 2020 at the time and found to have her bypass grafts are patent. With the above sign and symptom patient was hospitalized with CHF exacerbation along with mild COPD exacerbation as well, will be admitted to the hospital will continue diuretics echocardiogram will be done again will watch patient daily weight and intake and output watch kidney function carefully and have an aggressive management for her COPD as well. Despite no sign of infection at this point patient will be on cephalosporin and azithromycin for now better coverage for bronchitis. 08/09: Patient is seen today on the cardiac stepdown unit. She is currently on 6 L nasal cannula with pulse ox of 93%, blood pressure 126/59, afebrile, heart rate in the 80s and 90s. Repeat blood work. Sodium 133, potassium 6.3 status post Lokelma 10 mg 1. Chem supplement discontinued potassium. WBC 2.8, hemoglobin 10.2, platelet count 203. BUN 31 and creatinine 1.53. Levemir increased to 30 units at bedtime and NovoLog scheduled with meals increased to 10 and NovoLog scale added. Patient is currently on IV Lasix 40 mg every 12 hours and IV Solu-Medrol. Patient is followed by pulmonary medicine and cardiology. Echocardiogram is obtained and report pending. 08/10: Patient is currently on 6 L nasal cannula with pulse ox of 93%, afebrile, heart rate in the 80s, blood pressure 126/62. Repeat blood work reveals sodium 139, potassium 4.7, chloride 104, CO2 20, BUN 46 creatinine 1.92. Capillary blood glucose improved this morning after insulin changes on yesterday running 187-197. Patient's breathing is improving slowly. She has less lower extremity edema. Patient followed by cardiology and pulmonary medicine. Patient has been seen by therapy with recommendation for home care. Echocardiogram reveals EF of 30%, moderate mitral, mild aortic and tricuspid regurgitation. Patient updated regarding 's status and that he will be discharged today. 08/11: Patient is doing much better she is not on BiPAP anymore she is on 4 L O2 pulse ox running about 90 percentile, found on the side of the bed feeding herself. Echocardiogram showed significant decrease in ejection fraction compared to last time patient remain on medical management at this point still have moderate mitral regurgitation with mild to severe aortic regurgitation. Her debrided also around the right second toe has been better ulcerated site on the left foot has improved some. We'll continue adjusting her medication continue medical management titrate PTOT and see if patient will be ready for home sometimes on the weekend or on Friday. 08/12: Patient is doing pretty well today continue to be on furosemide 40 mg every 12 hours, her oxygen saturation is much better, her BUN is quite bit height 61 creatinine 4.8, continue on oxygen 2 L this point. Blood sugar has improved significantly on the current dose of insulin she saw. Continue Levemir 30 units at bedtime along with NovoLog before meals meals plus a sliding scales. Solu-Medrol has been weaned off gradually patient will be back on prednisone 40 mg and hopefully prepare for home tomorrow with home care. REVIEW OF SYSTEMS Constitutional: No fever, no chills, no night sweats. No weight change. No weakness, fatigue or lethargy. No daytime sleepiness. EENT: No headache. No blurred vision or double vision, no loss of vision. No loss of Hearing, no ringing in the ears, no dizziness. No nasal drainage or congestion. No epistaxis. No sore throat. Lungs: Reports shortness of breath cough wheezes with significant edema- improving. Cardiovascular: positive shortness of breath with PND orthopnea mild palpitation with worsening edema at the time with no chest pain, Abdominal: No abdominal pain. No nausea, vomiting. No diarrhea. No constipation. No bloody or tarry stools. No loss of appetite. Genitourinary: No dysuria, increased frequency, urgency. No urinary retention. Musculoskeletal: No myalgias. No muscle weakness, no gait dysfunction, no frequent falls. No back pain. No neck pain. Integumentary: No wounds, no lesions. No rash or pruritus. No unusual bruising. Significant amputation of first and second toe on the left side with mild irritation around it only. The right side patient had right big toe amputa tion as well along with amputation of the second toe with slight scar tissue from debridement was done recently. Neurologic: No aphasia. No facial droop. No change in mentation. No head injury. No headache. No paralysis. No paresthesia. Psychiatric: No depression. No anxiety. No mood swings. Endocrine: No abnormal blood sugars. No weight change. No excessive sweating or thirst. No cold intolerance. PHYSICAL EXAMINATION Gen: This is a 71 year-old obese female. She is resting in bed and appears to be comfortable and in no acute distress. Patient is currently on oxygen at 6 L nasal cannula HEENT: Head is atraumatic, normocephalic. Pupils equal, round. Sclerae is anicteric. NECK: Supple. No JVD. No lymphadenopathy. No thyromegaly. LUNGS: Diminished to the bilateral bases. No wheezes or rhonchi. No intercostal retractions. HEART: Regular rate and rhythm. No murmur. ABDOMEN: Soft. Bowel sounds are present. No masses. No tenderness. EXTREMITIES: No pedal edema. No calf tenderness. Right great toe amputation, left toe amputation significant non-healing ulcer in the left foot on the lateral side that is to area one of the base of the fifth toe measure 11 cm another one about an inch from the fifth toe between the 2 and ankle area with an open spot and ulcerated area more deeper with slight exposure bone. NEUROLOGICAL: Patient is awake, alert and oriented x3. Cranial nerves 2 through 12 are grossly intact. ASSESSMENT AND PLAN 1 acute hypoxic respiratory failure secondary to acute on chronic systolic and diastolic heart failure and COPD exacerbation. Doing much better today continue O2 and she does not require any BiPAP. 2 CHF exacerbation: This is mostly systolic dysfunction congestive heart failure we'll continue heavier dose of furosemide at this point while watching kidney function more carefully ejection fraction proven to be less down to 30% only. Continue to titrate medication management. 3 COPD exacerbation. Still seen pulmonary, switch Solu-Medrol to prednisone at this point continue updraft treatment. Start on Solu-Medrol will be switched to prednisone continue O2. 4. Coronary artery disease with previous history of 4 vessel CABG. 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 Brown at [facility]. Patient had an acute inferior ST elevation myocardial infarction post heart catheter and stent placement of the SVG to the RCA which was done in September 2020. Still on secondary prevention titrate medication. 5. history of DVT and PE: Remain on anticoagulation with eliquis. Stable and doing well. 6. Diabetes mellitus type 2, insulin requiring, uncontrolled with hyperglycemia. Titrate insulin try to keep her blood sugar below 120. 7 acute kidney injury with chronic kidney disease: Much better so far last 48 hours. 8 history of CVA: Has no major residual except balance gait and mild memory loss. 9 hypertension: Remain on Norvasc 5 mg a day along and metoprolol succinate 25 mg daily. Discontinue lisinopril due to worsening renal function. The blood pressure is better controlled. 10 hyperlipidemia: Continue patient on statin which doesn't look like in her list of medication at this point but I believe patient was on atorvastatin 80 mg a day. 11 severe diabetic neuropathy with worsening PAD as well: Patient remain on Lyrica 75 mg at bedtime we'll titrate dose higher to twice a day if needed. No worsening symptom of neuropathy at this point. 12 Peripheral vascular disease with previous stenting of the right lower extremity. Patient regularly follows with Dr. Gregory. CODE STATUS: Full code. DISCHARGE PLAN Home with [facility], will try to titrate physical therapy on the weekend see if patient is able to tolerate her and dependency been able to go home with home care. Objective - Vital Signs Vital signs: Vital Signs Temp 97.5 F L 08/12/21 08:30 Pulse 78 08/12/21 08:30 Resp 16 08/12/21 08:30 BP 127/65 08/12/21 08:30 Pulse Ox 97 08/12/21 08:30 Intake & Output 08/11/21 08/12/21 08/12/21 18:59 06:59 18:59 Intake Total 118 600 120 Output Total 1000 1000 550 Balance -882 -400 -430 Weight 79.5 kg Intake: Oral 118 600 120 Output: Urine 1000 1000 550 Other: Voiding Method Toilet Toilet # Voids 2 - Labs CBC & Chem 7: 08/12/21 08:26 08/12/21 08:26 Labs: Abnormal Lab Results - Last 24 Hours (Table) 08/11/21 08/11/21 08/12/21 Range/Units 16:21 19:53 05:34 RBC (3.80-5.40) m/uL Hgb (11.4-16.0) gm/dL MCHC (31.0-37.0) g/dL RDW (11.5-15.5) % BUN (7-17) mg/dL Creatinine (0.52-1.04) mg/dL Glucose (74-99) mg/dL POC Glucose (mg/dL) 295 H 288 H 209 H (75-99) mg/dL Calcium (8.4-10.2) mg/dL 08/12/21 08/12/21 Range/Units 08:26 08:26 RBC 3.73 L (3.80-5.40) m/uL Hgb 11.1 L (11.4-16.0) gm/dL MCHC 30.3 L (31.0-37.0) g/dL RDW 16.3 H (11.5-15.5) % BUN 61 H (7-17) mg/dL Creatinine 1.81 H (0.52-1.04) mg/dL Glucose 201 H (74-99) mg/dL POC Glucose (mg/dL) (75-99) mg/dL Calcium 7.7 L (8.4-10.2) mg/dL
--- NOTE | 2021-08-12 14:15 | P.PN ---
Subjective Progress Note Date: 08/12/21 Patient is examined today resting comfortably in bed. She denies shortness of breath and chest pain. Patient's lower extremity edema continues to improve with mild to moderate pitting edema today we'll transition patient from IV Lasix to oral Lasix. Her kidney function continues to improve as well. Vital signs are stable will continue to monitor kidney function. Objective - Vital Signs Vital signs: Vital Signs Temp 97.5 F L 08/12/21 08:30 Pulse 78 08/12/21 08:30 Resp 16 08/12/21 08:30 BP 127/65 08/12/21 08:30 Pulse Ox 97 08/12/21 08:30 Intake & Output 08/11/21 08/12/21 08/12/21 18:59 06:59 18:59 Intake Total 118 600 120 Output Total 1000 1000 550 Balance -882 -400 -430 Weight 79.5 kg Intake: Oral 118 600 120 Output: Urine 1000 1000 550 Other: Voiding Method Toilet Toilet # Voids 2 - Exam PHYSICAL EXAM: VITAL SIGNS: Reviewed. GENERAL: Well-developed in no acute distress. HEENT: Head is normocephalic. Pupils are equal, round. Sclerae anicteric. Mucous membranes of the mouth are moist. NECK: Supple. No JVD or thyromegaly RESPIRATORY: Respirations even and unlabored. Lungs diminished to auscultation bilaterally. CARDIO: Regular rate and rhythm. S1 and S2 heard. No murmur or gallops. EXTREMITIES: Normal range of motion. No clubbing or cyanosis. Peripheral pulses intact. Mild to Moderate pitting bilateral lower extremity edema NEURO: Orientated to person, time, mood is appropriate - Labs CBC & Chem 7: 08/12/21 08:26 08/12/21 08:26 Labs: Abnormal Lab Results - Last 24 Hours (Table) 08/11/21 08/11/21 08/12/21 Range/Units 16:21 19:53 05:34 RBC (3.80-5.40) m/uL Hgb (11.4-16.0) gm/dL MCHC (31.0-37.0) g/dL RDW (11.5-15.5) % BUN (7-17) mg/dL Creatinine (0.52-1.04) mg/dL Glucose (74-99) mg/dL POC Glucose (mg/dL) 295 H 288 H 209 H (75-99) mg/dL Calcium (8.4-10.2) mg/dL 08/12/21 08/12/21 08/12/21 Range/Units 08:26 08:26 12:07 RBC 3.73 L (3.80-5.40) m/uL Hgb 11.1 L (11.4-16.0) gm/dL MCHC 30.3 L (31.0-37.0) g/dL RDW 16.3 H (11.5-15.5) % BUN 61 H (7-17) mg/dL Creatinine 1.81 H (0.52-1.04) mg/dL Glucose 201 H (74-99) mg/dL POC Glucose (mg/dL) 299 H (75-99) mg/dL Calcium 7.7 L (8.4-10.2) mg/dL Assessment and Plan Assessment: Acute on chronic congestive heart failure with reduced EF Acute on chronic hypoxic respiratory failure Acute COPD exacerbation Coronary artery disease with previous CABG 4 History of DVT/PE Acute on chronic kidney disease Hypertension Hyperlipidemia Diabetes Plan: Transition patient to oral Lasix Continue with current cardiac medications Recheck electrolytes and kidney function in the morning continue to titrate oxygen as tolerated Continue with telemetry monitoring Further recommendations based on clinical course The above impression and plan of care have been discussed and directed by the signing physician. Myah Kellogg, nurse practitioner, acting as scribe for [facility] physician.
[2021-08-12] MEDS: FUROSEMIDE 40 MG TAB PO SCH (15:58)
[2021-08-12 16:37] LABS: Glucose,Whole Blood 397 mg/dL (75-99)
[2021-08-12 20:14] LABS: Glucose,Whole Blood 285 mg/dL (75-99)
[2021-08-12] MEDS: MAGNESIUM OXIDE 400 MG TAB PO SCH (20:47)
[2021-08-12] MEDS: MELATONIN 5 MG TABLET PO SCH (20:47)
[2021-08-12] MEDS: DULoxetine HCL 60 MG CAPSULE.DR PO SCH (20:48)
[2021-08-12] MEDS: MONTELUKAST 10 MG TAB PO SCH (20:48)
[2021-08-12] MEDS: INSULIN DETEMIR (LEVEMIR) 100 UNIT/ML SYR SQ SCH (20:48)
[2021-08-12] MEDS: PREGABALIN 75 MG CAP PO SCH (20:48)
[2021-08-12] MEDS: METOPROLOL SUCCINATE (ER) 25 MG TAB.ER.24H PO SCH (20:48)
[2021-08-13 06:52] LABS: Glucose,Whole Blood 103 mg/dL (75-99)
[2021-08-13] MEDS: INSULIN ASPART (NovoLOG) 100 UNIT/ML VIAL SQ SCH ×4 (06:53→12:13)
[2021-08-13] MEDS: PANTOPRAZOLE 40 MG TABLET PO SCH (07:01)
[2021-08-13 08:08] LABS: Albumin 3.4 g/dL (3.5-5.0); Calcium 7.5 mg/dL (8.4-10.2); Potassium 3.6 mmol/L (3.5-5.1); Total Bilirubin 0.6 mg/dL (0.2-1.3)
[2021-08-13 08:14] LABS: HCT 37.3 % (34.0-46.0); Hypochromasia Marked; MCH 28.6 pg (25.0-35.0); MCHC 29.6 g/dL (31.0-37.0); MCV 96.8 fL (80.0-100.0); Mean Platelet Volume 8.5; Platelet Count 258 k/uL (150-450); RBC 3.86 m/uL (3.80-5.40); RDW 15.9 % (11.5-15.5); WBC 10.3 k/uL (3.8-10.6)
--- NOTE | 2021-08-13 08:53 | P.DS ---
Providers Date of admission: 08/08/21 16:05 Expected date of discharge: 08/13/21 Attending physician: Mikel Delong Consults: 08/08/21 16:04 Consult Physician Urgent Consulting Provider: Basilio Perales Consult Reason/Comments: hypoxic resp failure Do you want consulting provider notified?: Yes Consult Physician Urgent Consulting Provider: [facility] Consult Reason/Comments: acute hypoxic resp failure, aecopd Do you want consulting provider notified?: Yes Primary care physician: Jacob Sanderson [facility] Course: HISTORY OF PRESENT ILLNESS This is a 71-year-old female patient of Dr. Sanderson with past medical history of diabetes mellitus type 2, hypertension, hyperlipidemia, CVA in 2013 with no residuals, coronary artery disease status post 4 vessel CABG, bilateral carotid endarterectomies, mild intermittent asthma, osteomyelitis status post right great toe amputation 2014 and left toe amputation 8 left big toe amputation as well, Patient was hospitalized recently at [facility] for osteomyelitis and severe cellulitis of the right foot require debridement of the second and part of the third toe which was done successfully and patient was placed on IV antibiotic with vancomycin and then cefepime with patient developed to have slightly worsening shortness of breath along with debility and ended up going to [facility] the [place] [facility] over 2 weeks which ended about 10 days ago when finally patient was able to go home but according to her developed to have significant hypoxia with worsening shortness of breath the day before discharge but was still discharged home with no change in management. Patient was still on home O2 along with updraft treatment. Surprisingly her was hospitalized 2 days ago at [facility] with severe colitis and abdominal pain and the patient was left alone with not much help at the time. She apparently developed for the last 48 hours to have significant dyspnea with shortness of breath with severe hypoxia with pulse ox running in the 70s. Patient had worsening edema as well and according to her she been taking her Lasix regularly but since her has been out of the picture patient has not been watching her salt intake and not been very precise on her time with medication. Family brought her to the emergency department because of severe dyspnea and respiratory failure found to have pulse ox running 73 percentile after 5 L of O2 initially pulse ox is above 90 percentile she required BiPAP to keep her pulse ox higher. Testing at the time was done with her chest x-ray showed significant cephalization and bilateral pleural effusion with cardiomegaly and mild to moderate central vascular congestion and interstitial edema consistent with CHF. Her blood test shows influenza negative BNP was 31,500 with slightly declining kidney function with GFR down to 35 percentile only. With above symptoms patient was placed on IV diuretics con tinue BiPAP start her back on her updraft treatment patient be seen cardiology and pulmonary. Her echocardiogram was done in August 2020 also she had heart catheter in August 2020 at the time and found to have her bypass grafts are patent. With the above sign and symptom patient was hospitalized with CHF exacerbation along with mild COPD exacerbation as well, will be admitted to the hospital will continue diuretics echocardiogram will be done again will watch patient daily weight and intake and output watch kidney function carefully and have an aggressive management for her COPD as well. Despite no sign of infection at this point patient will be on cephalosporin and azithromycin for now better coverage for bronchitis. 08/09: Patient is seen today on the cardiac stepdown unit. She is currently on 6 L nasal cannula with pulse ox of 93%, blood pressure 126/59, afebrile, heart rate in the 80s and 90s. Repeat blood work. Sodium 133, potassium 6.3 status post Lokelma 10 mg 1. Chem supplement discontinued potassium. WBC 2.8, hemoglobin 10.2, platelet count 203. BUN 31 and creatinine 1.53. Levemir increased to 30 units at bedtime and NovoLog scheduled with meals increased to 10 and NovoLog scale added. Patient is currently on IV Lasix 40 mg every 12 hours and IV Solu-Medrol. Patient is followed by pulmonary medicine and cardiology. Echocardiogram is obtained and report pending. 08/10: Patient is currently on 6 L nasal cannula with pulse ox of 93%, afebrile, heart rate in the 80s, blood pressure 126/62. Repeat blood work reveals sodium 139, potassium 4.7, chloride 104, CO2 20, BUN 46 creatinine 1.92. Capillary blood glucose improved this morning after insulin changes on yesterday running 187-197. Patient's breathing is improving slowly. She has less lower extremity edema. Patient followed by cardiology and pulmonary medicine. Patient has been seen by therapy with recommendation for home care. Echocardiogram reveals EF of 30%, moderate mitral, mild aortic and tricuspid regurgitation. Patient updated regarding 's status and that he will be discharged today. 08/11: Patient is doing much better she is not on BiPAP anymore she is on 4 L O2 pulse ox running about 90 percentile, found on the side of the bed feeding herself. Echocardiogram showed significant decrease in ejection fraction compared to last time patient remain on medical management at this point still have moderate mitral regurgitation with mild to severe aortic regurgitation. Her debrided also around the right second toe has been better ulcerated site on the left foot has improved some. We'll continue adjusting her medication continue medical management titrate PTOT and see if patient will be ready for home sometimes on the weekend or on Friday. 08/12: Patient is doing pretty well today continue to be on furosemide 40 mg every 12 hours, her oxygen saturation is much better, her BUN is quite bit height 61 creatinine 4.8, continue on oxygen 2 L this point. Blood sugar has improved significantly on the current dose of insulin she saw. Continue Levemir 30 units at bedtime along with NovoLog before meals meals plus a sliding scales. Solu-Medrol has been weaned off gradually patient will be back on prednisone 40 mg and hopefully prepare for home tomorrow with home care. 08/13: Patient has been afebrile, heart rate in the 70s and 80s, blood pressure 132/65, pulse ox 96% on room air. Patient was on BiPAP during the night. color television console monitor is sinus rhythm. She is reaching 1000 ML's on incentive spirometry. Repeat blood work reveals WBC 10.3, hemoglobin 11, electrolytes are normal. BUN 61 creatinine 1.64. Capillary blood glucose running between 103 and 397. Patient is followed by cardiology and pulmonary medicine IV Lasix has been transitioned to oral. Patient is already transitioned to oral prednisone. Antibiotics will be switched from IV to oral. Social work has been updated the patient will need palliative care as well as wound care. Patient will be disc harged today in stable condition. DISCHARGE DIAGNOSES 1 acute hypoxic respiratory failure secondary to acute on chronic systolic and diastolic heart failure and COPD exacerbation. 2 CHF exacerbation 3 COPD exacerbation. 4. Coronary artery disease with previous history of 4 vessel CABG. 5. history of DVT and PE 6. Diabetes mellitus type 2, insulin requiring, uncontrolled with hyperglycemia. 7 acute kidney injury with chronic kidney disease 8 history of CVA 9 hypertension 10 hyperlipidemia 11 severe diabetic neuropathy with worsening PAD as well 12 Peripheral vascular disease with previous stenting of the right lower extremity. DISCHARGE PLAN Home with [facility], AND Palliative Care Greater than 35 minutes was utilized and coordinating patient's discharge. Impression and plan of care have been directed as dictated by the signing physician. Emily Higginbotham nurse practitioner acting as scribe for signing physician. Patient Condition at Discharge: Serious Plan - Discharge Summary New Discharge Prescriptions: New Doxycycline Hyclate 100 mg PO BID 7 Days #14 tab lisinopriL [Zestril] 2.5 mg PO DAILY tab predniSONE 0 mg PO DIRECTED #30 tab Continue Albuterol Sulfate [Proair Hfa] 2 puff INHALATION RT-Q6H PRN PRN Reason: Shortness Of Breath Insulin Glargine,Hum.rec.anlog [Lantus Solostar Pen] 23 unit SQ HS@2100 Acetaminophen Tab [Tylenol] 650 mg PO Q6H PRN PRN Reason: Pain amLODIPine [Norvasc] 5 mg PO DAILY Apixaban [Eliquis] 5 mg PO BID Insulin Lispro [humaLOG Kwikpen] 7 unit SQ AC-TID Metoprolol Succinate [Toprol XL] 25 mg PO HS oxyCODONE-APAP 5-325MG [Percocet 5-325 mg] 1 tab PO Q4H PRN PRN Reason: Pain Montelukast Sodium [Singulair] 10 mg PO HS@2100 DULoxetine HCL [Cymbalta] 60 mg PO HS Multivitamins, Thera [Multivitamin (formulary)] 1 tab PO DAILY@0900 Magnesium Oxide [Mag-Ox] 400 mg PO HS Ascorbic Acid [Vitamin C] 500 mg PO DAILY@0900 Furosemide [Lasix] 40 mg PO BID Melatonin 10 mg PO HS Potassium Chloride ER [K-Dur 20] 20 meq PO DAILY Pregabalin [Lyrica] 75 mg PO HS Discontinued lisinopriL 2.5 mg PO DAILY Discharge Medication List Albuterol Sulfate [Proair Hfa] 2 puff INHALATION RT-Q6H PRN 06/16/20 [History] Montelukast Sodium [Singulair] 10 mg PO HS@2100 07/15/20 [History] DULoxetine HCL [Cymbalta] 60 mg PO HS 08/29/20 [History] Ascorbic Acid [Vitamin C] 500 mg PO DAILY@0900 05/16/21 [History] Insulin Glargine,Hum.rec.anlog [Lantus Solostar Pen] 23 unit SQ HS@2100 05/16/21 [History] Magnesium Oxide [Mag-Ox] 400 mg PO HS 05/16/21 [History] Multivitamins, Thera [Multivitamin (formulary)] 1 tab PO DAILY@0900 05/16/21 [History] Acetaminophen Tab [Tylenol] 650 mg PO Q6H PRN 08/08/21 [History] Apixaban [Eliquis] 5 mg PO BID 08/08/21 [History] Furosemide [Lasix] 40 mg PO BID 08/08/21 [History] Insulin Lispro [humaLOG Kwikpen] 7 unit SQ AC-TID 08/08/21 [History] Melatonin 10 mg PO HS 08/08/21 [History] Metoprolol Succinate [Toprol XL] 25 mg PO HS 08/08/21 [History] Potassium Chloride ER [K-Dur 20] 20 meq PO DAILY 08/08/21 [History] Pregabalin [Lyrica] 75 mg PO HS 08/08/21 [History] amLODIPine [Norvasc] 5 mg PO DAILY 08/08/21 [History] oxyCODONE-APAP 5-325MG [Percocet 5-325 mg] 1 tab PO Q4H PRN 08/08/21 [History] Doxycycline Hyclate 100 mg PO BID 7 Days #14 tab 08/13/21 [Rx] lisinopriL [Zestril] 2.5 mg PO DAILY tab 08/13/21 [Rx] predniSONE 0 mg PO DIRECTED #30 tab 08/13/21 [Rx] Follow up Appointment(s)/Referral(s): Jacob Sanderson DO [Primary Care Provider] - 1 Week Rustam Gregory MD [STAFF PHYSICIAN] - 1 Week Alex Soto MD [STAFF PHYSICIAN] - 1 Week Basilio Perales MD [STAFF PHYSICIAN] - 1 Week Patient Instructions/Handouts: Heart Failure (DC), COPD (Chronic Obstructive Pulmonary Disease) (DC) Discharge Disposition: HOME WITH HOME HEALTH SERVICES
[2021-08-13] MEDS ORDERED: predniSONE 20 MG TAB PO SCH (09:00)
[2021-08-13] MEDS: MULTIVITAMINS, THERA 1 EACH TAB PO SCH (09:54)
[2021-08-13] MEDS: FUROSEMIDE 40 MG TAB PO SCH (09:54)
[2021-08-13] MEDS: amLODIPine 5 MG TAB PO SCH (09:54)
[2021-08-13] MEDS: APIXABAN 5 MG TAB PO SCH (09:54)
[2021-08-13] MEDS: ASCORBIC ACID 500 MG TAB PO SCH (09:54)
[2021-08-13 11:40] LABS: Glucose,Whole Blood 106 mg/dL (75-99)
--- NOTE | 2021-08-13 13:27 | P.PN ---
Subjective This is a 71 year old patient has a known history of coronary artery disease status post CABG x 4, and prior angioplasty of the venous grafts, hypertension, dyslipidemia, history DVT/PE, paroxysmal atrial fibrillation on Eliquis, COPD/asthma, type 2 diabetes, congestive heart failure with reduced ejection fraction, ischemic cardiomyopathy. She follows with Dr. Soto. We are following the patient for CHF. Patient is admitted to the hospital with acute hypoxic respiratory failure and acute exacerbation of chronic congestive heart failure with reduced ejection fraction. 08/13/2021 Patient examined this morning at the bedside. Patient denies chest pain or pressure. She reports improvement in her shortness of breath. Denies shortness of breath. She has been transition to PO Lasix and tolerating well. She remains on PO Lasix 40 mg every 12 hours. Echocardiogram completed revealing ejection fraction 30-35%. Patient with -1630 fluid balance over the past 24 hours. Serum creatinine is close to baseline at 1.64. PHYSICAL EXAM: VITAL SIGNS: Reviewed. GENERAL: Well-developed in no acute distress. NECK: Supple. No JVD or thyromegaly LUNGS: Respirations even and unlabored. Lungs diminished to auscultation bilate rally. HEART: Regular rate and rhythm. S1 and S2 heard. EXTREMITIES: Normal range of motion. No clubbing or cyanosis. Peripheral pulses intact. 1+ bilateral lower extremity edema ASSESSMENT: Acute on chronic congestive heart failure with reduced EF 30-35% Acute on chronic hypoxic respiratory failure Acute COPD exacerbation Coronary artery disease with previous CABG 2014 at [place]. History of inferior STEMI 08/2020, s/p PCI of SVG to RCA History of DVT/PE Chronic kidney disease Hypertension Hyperlipidemia Diabetes, type 2 Peripheral vascular disease with previous right lower extremity stenting per patient PLAN: Continue PO Lasix 40mg BID Recommend continuing lisinopril 2.5mg daily Continue anticoagulation with Eliquis Continue home cardiac medications From cardiology perspective, patient stable and discharged home. Follow up outpatient with Dr. Soto Nurse practitioner note has been reviewed by physician. Signing provider agrees with the documented findings, assessment, and plan of care. Objective - Vital Signs Vital signs: Vital Signs Temp 97.4 F L 08/13/21 09:50 Pulse 79 08/13/21 09:50 Resp 18 08/13/21 09:50 BP 132/65 08/13/21 09:50 Pulse Ox 96 08/13/21 09:50 Intake & Output 08/12/21 08/13/21 08/13/21 18:59 06:59 18:59 Intake Total 120 Output Total 1250 500 Balance -1130 -500 Weight 81 kg Intake: Oral 120 Output: Urine 1250 500 Other: Voiding Method Toilet Toilet - Labs CBC & Chem 7: 08/13/21 07:09 08/13/21 07:09 Labs: Abnormal Lab Results - Last 24 Hours (Table) 08/12/21 08/12/21 08/13/21 Range/Units 16:35 20:12 06:51 Hgb (11.4-16.0) gm/dL MCHC (31.0-37.0) g/dL RDW (11.5-15.5) % BUN (7-17) mg/dL Creatinine (0.52-1.04) mg/dL POC Glucose (mg/dL) 397 H 285 H 103 H (75-99) mg/dL Calcium (8.4-10.2) mg/dL Albumin (3.5-5.0) g/dL 08/13/21 08/13/21 08/13/21 Range/Units 07:09 07:09 11:31 Hgb 11.0 L (11.4-16.0) gm/dL MCHC 29.6 L (31.0-37.0) g/dL RDW 15.9 H (11.5-15.5) % BUN 61 H (7-17) mg/dL Creatinine 1.64 H (0.52-1.04) mg/dL POC Glucose (mg/dL) 106 H (75-99) mg/dL Calcium 7.5 L (8.4-10.2) mg/dL Albumin 3.4 L (3.5-5.0) g/dL
[2021-08-13 13:31] VITALS: BP 132/65; PULSE 76; RESP 18; TEMP 97.4
--- NOTE | 2021-08-13 13:46 | P.PN ---
Subjective Progress Note Date: 08/13/21 Principal diagnosis: Acute hypoxic respiratory failure secondary to acute on chronic systolic congestive heart failure 08/12/2021, the patient has no specific complaints. She is resting comfortably in bed. She remains on Lasix 40 mg IV every 12 hours. Fluid balance is -1 L ov er the past 24 hours. Creatinine is stable at 1.8 with a BUN of 61. She is on 2 L of oxygen by nasal cannula. She is on IV Solu Medrol and this will be transitioned to prednisone burst taper. She is on Levemir insulin 30 units daily at bedtime along with a 10 units of insulin NovoLog with meals and the sliding scale coverage. No altered mentation. No nausea. No vomiting. No diarrhea. No abdominal pain. The white cell count is at 8.3 with a hemoglobin of 11.1. Aggressive the electrolytes all within normal limits. Reevaluated today on 08/13/21, patient is doing well today, relatively a symptomatic, has been responding well to diuretics, and the patient is being considered for discharge home today. No cough no wheezing no shortness of breath no chest pain. Patient remains on diuretics. Objective - Vital Signs Vital signs: Vital Signs Temp 97.4 F L 08/13/21 09:50 Pulse 76 08/13/21 12:00 Resp 18 08/13/21 09:50 BP 132/65 08/13/21 09:50 Pulse Ox 96 08/13/21 09:50 Intake & Output 08/12/21 08/13/21 08/13/21 18:59 06:59 18:59 Intake Total 120 Output Total 1250 500 Balance -1130 -500 Weight 81 kg Intake: Oral 120 Output: Urine 1250 500 Other: Voiding Method Toilet Toilet - Exam Physical Exam: Revealed 71-year-old female in no distress, on room air. Head: Atraumatic, normocephalic. HEENT:[Neck is supple.] [No neck masses.] [No thyromegaly.] [No JVD.] Chest: [Clear throughout, no crackles, no rhonchi, no wheezes.] Cardiac Exam: [Normal S1 and S2, no S3 gallop, no murmur.] Abdomen: [Soft, nontender, no megaly, no rebound, no guarding, normal bowel sounds.] Extremities: [No clubbing, no edema, no cyanosis.] Multiple toes had been amputated in both feet bilaterally. Neurological Exam: [No focal neurologic deficit.] Alert and oriented 3. Psychiatric: Normal mood affect and normal mental status examination. Skin: No rashes. - Labs CBC & Chem 7: 08/13/21 07:09 08/13/21 07:09 Labs: Abnormal Lab Results - Last 24 Hours (Table) 08/12/21 08/12/21 08/13/21 Range/Units 16:35 20:12 06:51 Hgb (11.4-16.0) gm/dL MCHC (31.0-37.0) g/dL RDW (11.5-15.5) % BUN (7-17) mg/dL Creatinine (0.52-1.04) mg/dL POC Glucose (mg/dL) 397 H 285 H 103 H (75-99) mg/dL Calcium (8.4-10.2) mg/dL Albumin (3.5-5.0) g/dL 08/13/21 08/13/21 08/13/21 Range/Units 07:09 07:09 11:31 Hgb 11.0 L (11.4-16.0) gm/dL MCHC 29.6 L (31.0-37.0) g/dL RDW 15.9 H (11.5-15.5) % BUN 61 H (7-17) mg/dL Creatinine 1.64 H (0.52-1.04) mg/dL POC Glucose (mg/dL) 106 H (75-99) mg/dL Calcium 7.5 L (8.4-10.2) mg/dL Albumin 3.4 L (3.5-5.0) g/dL Assessment and Plan Assessment: Impression: Acute hypoxic respiratory failure secondary to acute on chronic systolic congestive heart failure, patient is known to have history of LV dysfunction. Chronic kidney disease stage III Coronary arteriosclerosis and previous inferior wall ID. Previous angioplasty and four-vessel bypass surgery. Type 2 diabetes. Peripheral vessel occlusive disease. Mild intermittent asthma, presently stable, asymptomatic. History of CVA Benign essential hypertension Dyslipidemia Recommendation: Agree with discharge planning Continue diuretics Discontinue oxygen, patient is presently on room air. Follow-up with me on outpatient basis. Continue home meds and bronchodilators Time with Patient: Less than 30
== END 2021-08-13 12:39 | disposition home health service (06) | DRG 291 ==
LOC: EC 12:05 → 3SCARD 16:05
PROVIDERS: ADMIT Internal Medicine Geriatric Medicine; ATTEND Internal Medicine Geriatric Medicine
PROC: 5A09357 Assistance with Respiratory Ventilation, Less than 24 Consecutive Hours, Continuous Positive Airway Pressure (ICD-10-PCS; principal; 2021-08-08)
PROC: 5A0935A Assistance with Respiratory Ventilation, Less than 24 Consecutive Hours, High Flow/Velocity Cannula (ICD-10-PCS; 2021-08-10)
DX: I13.0 Hypertensive heart and chronic kidney disease with heart failure and stage 1 through stage 4 chronic kidney disease, or unspecified chronic kidney disease (principal); I50.43 Acute on chronic combined systolic (congestive) and diastolic (congestive) heart failure; J96.21 Acute and chronic respiratory failure with hypoxia; F33.9 Major depressive disorder, recurrent, unspecified; J44.1 Chronic obstructive pulmonary disease with (acute) exacerbation; N17.9 Acute kidney failure, unspecified; N18.30 Chronic kidney disease, stage 3 unspecified; E11.22 Type 2 diabetes mellitus with diabetic chronic kidney disease; E11.42 Type 2 diabetes mellitus with diabetic polyneuropathy; E11.51 Type 2 diabetes mellitus with diabetic peripheral angiopathy without gangrene; E78.5 Hyperlipidemia, unspecified; E87.5 Hyperkalemia; I08.3 Combined rheumatic disorders of mitral, aortic and tricuspid valves; I25.10 Atherosclerotic heart disease of native coronary artery without angina pectoris; I25.2 Old myocardial infarction; I25.5 Ischemic cardiomyopathy; I48.0 Paroxysmal atrial fibrillation; J45.20 Mild intermittent asthma, uncomplicated; E11.621 Type 2 diabetes mellitus with foot ulcer; L97.529 Non-pressure chronic ulcer of other part of left foot with unspecified severity; L30.9 Dermatitis, unspecified; M06.9 Rheumatoid arthritis, unspecified; Z79.01 Long term (current) use of anticoagulants; Z79.4 Long term (current) use of insulin; Z79.899 Other long term (current) drug therapy; Z80.1 Family history of malignant neoplasm of trachea, bronchus and lung; Z82.3 Family history of stroke; Z82.49 Family history of ischemic heart disease and other diseases of the circulatory system; Z83.3 Family history of diabetes mellitus; Z86.711 Personal history of pulmonary embolism; Z86.718 Personal history of other venous thrombosis and embolism; Z86.73 Personal history of transient ischemic attack (TIA), and cerebral infarction without residual deficits; Z87.891 Personal history of nicotine dependence; Z89.411 Acquired absence of right great toe; Z89.422 Acquired absence of other left toe(s); Z89.421 Acquired absence of other right toe(s); Z95.1 Presence of aortocoronary bypass graft; Z98.61 Coronary angioplasty status; R13.10 Dysphagia, unspecified
CPT/HCPCS: 36415; 71045; 71046; 80048; 80053; 83605; 83735; 83880; 84484; 85025; 85027; 85610; 85730; 87502; 93005; 93306; 94640; 94660; 94760; 96374; 96375; 99291

== ENCOUNTER 2021-11-01 15:13 | Inpatient (IN) | payer MEDICARE, OTHER ==
[2021-11-01] MEDS ORDERED: SODIUM CHLORIDE 0.9% 500 ML 500 ML IV ONE (15:49)
--- NOTE | 2021-11-01 15:49 | ED ---
Altered Mental Status HPI - General Chief Complaint: Altered Mental Status Stated Complaint: Altered Mental Status Time Seen by Provider: 11/01/21 15:15 Source: EMS Mode of arrival: EMS Limitations: altered mental status - History of Present Illness Initial Comments: 71-year-old female past medical history of coronary artery disease, congestive heart failure, COPD, diabetes, chronic left foot wound presents to the emergency department with altered mental status. Daughter is at bedside and helps provide the history. She is currently undergoing treatment for a left foot wound. It was debrided 2 weeks ago while she was hospitalized at [facility]. She does have a PICC line in her left arm for which she is receiving daptomycin. Patient currently resides at home with her daughter and sister who are her caretakers. They state over the past week after her discharge from the other facility that she has declined. She lost her and since has had poor little oral intake. She seems overly lethargic which has led to multiple falls. Patient unable to ambulate on her own with a walker. She denies any chest pain or shortness of breath. No fevers. Denies any pain. No recent medication changes. Patient denies any injuries from her falls. No head trauma. Today the daughter was attempting to feed her mother. She was having difficulty raising the utensil to her face and this is what prompted her to call EMS. No other alleviating, precipitating or modifying factors - Related Data Home Medications Medication Instructions Recorded Confirmed Albuterol Sulfate [Proair Hfa] 2 puff INHALATION RT-Q6H PRN 06/16/20 11/01/21 Montelukast Sodium [Singulair] 10 mg PO HS 07/15/20 11/01/21 DULoxetine HCL [Cymbalta] 60 mg PO DAILY 08/29/20 11/01/21 Insulin Glargine,Hum.rec.anlog 8 unit SQ DAILY 05/16/21 11/01/21 [Lantus Solostar Pen] Furosemide [Lasix] 40 mg PO DAILY 08/08/21 11/01/21 ALPRAZolam [Xanax] 1 mg PO HS PRN 11/01/21 11/01/21 Amiodarone [Cordarone] 200 mg PO DAILY 11/01/21 11/01/21 Apixaban [Eliquis] 2.5 mg PO BID 11/01/21 11/01/21 Atorvastatin [Lipitor] 80 mg PO DAILY 11/01/21 11/01/21 Gabapentin [Neurontin] 300 mg PO HS 11/01/21 11/01/21 HYDROcodone/APAP 5-325MG [[place] 1 tab PO BID PRN 11/01/21 11/01/21 5-325] Insulin Aspart [NovoLOG Flexpen] 12 units SQ ACHS 11/01/21 11/01/21 Lumateperone Tosylate [Caplyta] 42 mg PO DAILY 11/01/21 11/01/21 Metoprolol Tartrate [Lopressor] 25 mg PO HS 11/01/21 11/01/21 Spironolactone 100 mg PO DAILY 11/01/21 11/01/21 amLODIPine [Norvasc] 10 mg PO DAILY 11/01/21 11/01/21 Allergies Allergy/AdvReac Type Severity Reaction Status Date / Time nickel Allergy Rash/Hives Verified 08/08/21 14:01 levofloxacin [From Levaquin] AdvReac Confusion Verified 08/08/21 14:01 Review of Systems ROS Statement: Those systems with pertinent positive or pertinent negative responses have been documented in the HPI. ROS Other: All systems not noted in ROS Statement are negative. Past Medical History Past Medical History: Asthma, Coronary Artery Disease (CAD), Heart Failure, COPD, CVA/TIA, Diabetes Mellitus, Hyperlipidemia, Hypertension, Pneumonia, Rheumatoid Arthritis (RA) Additional Past Medical History / Comment(s): left GREAT TOE WOUND, with current dressing, partial amputation on 06/28/20. going to hyperbaric chamber 5 days a week, PICC line right arm Last Myocardial Infarction Date:: 2014 History of Any Multi-Drug Resistant Organisms: None Reported Past Surgical History: Adenoidectomy, Appendectomy, Coronary Bypass/CABG, Heart Catheterization, Tonsillectomy, Tubal Ligation Additional Past Surgical History / Comment(s): Open heart on April 13 2015, cabg X4, bilateral carotid endarterectomies,. Right great toe amputation 2014. stent in right leg above knee, elke cataracts. left toe ambutation, 06/18/20 Past Anesthesia/Blood Transfusion Reactions: Previous Problems w/ Anesthesia Additional Past Anesthesia/Blood Transfusion Reaction / Comment(s): diff breathing afterwards Past Psychological History: No Psychological Hx Reported Smoking Status: Former smoker Past Alcohol Use History: None Reported Past Drug Use History: None Reported - Past Family History Father Family Medical History: Coronary Artery Disease (CAD), CVA/TIA, Diabetes Mellitus Mother Additional Family Medical History / Comment(s): "spot on the lung" General Exam Limitations: altered mental status General appearance: in no apparent distress, lethargic Head exam: Present: atraumatic, normocephalic, normal inspection Eye exam: Present: normal appearance, PERRL, EOMI. Absent: scleral icterus, conjunctival injection, periorbital swelling ENT exam: Present: mucous membranes dry Neck exam: Present: normal inspection. Absent: tenderness, meningismus, lymphadenopathy Respiratory exam: Present: normal lung sounds bilaterally Cardiovascular Exam: Present: regular rate, normal rhythm, normal heart sounds. Absent: systolic murmur, diastolic murmur, rubs, gallop, clicks GI/Abdominal exam: Present: soft, normal bowel sounds. Absent: distended, tenderness, guarding, rebound, rigid Extremities exam: Present: other (left foot is bandaged. bandage removed to reveal debrided area adjacent to left 5th metatarsal) Neurological exam: Present: altered, other (sedated. answers all questions appropriately and follows commands. fall asleep easily throughout my assessment) Psychiatric exam: Present: depressed, flat affect Skin exam: Present: warm, dry, intact, normal color. Absent: rash Course Vital Signs 11/01/21 15:14 Temperature 98.0 F Pulse Rate 98 Respiratory 16 Rate Blood Pressure 121/67 O2 Sat by Pulse 96 Oximetry Medical Decision Making - Medical Decision Making The patient was placed into room 13. There are history and physical exam was performed. Patient does answer questions appropriately but is extremely fatigued and falls asleep during my exam. We did conduct laboratory studies which reveal a creatinine of 1.7. Troponin 0.256. BNP 20,500. Urinalysis is positive for nitrites and occasional bacteria. Chest x-ray demonstrates no acute process. X-ray of the patient's left foot demonstrates diffuse soft tissue swelling of the mid and forefoot on the lateral aspect. CT of the brain demonstrates no acute process. Similar remote temporal lobe injury seen previously. Results are discussed the patient. I did give her a dose of Rocephin for her UTI. Recommended admission for antibiotics for her UTI, IV hydration and physical therapy. Spoke with Dr. Delong who agreed to admit the patient. - Lab Data Result diagrams: 11/07/21 08:46 11/07/21 08:46 Lab Results 11/01/21 11/01/21 11/01/21 Range/Units 16:31 16:31 16:31 WBC 3.3 L (3.8-10.6) k/uL RBC 4.70 (3.80-5.40) m/uL Hgb 13.1 D (11.4-16.0) gm/dL Hct 42.6 (34.0-46.0) % MCV 90.8 (80.0-100.0) fL MCH 27.8 (25.0-35.0) pg MCHC 30.7 L (31.0-37.0) g/dL RDW 16.2 H (11.5-15.5) % Plt Count 184 (150-450) k/uL MPV 6.9 Neutrophils % 54 % Lymphocytes % 33 % Monocytes % 8 % Eosinophils % 3 % Basophils % 1 % Neutrophils # 1.8 (1.3-7.7) k/uL Lymphocytes # 1.1 (1.0-4.8) k/uL Monocytes # 0.3 (0-1.0) k/uL Eosinophils # 0.1 (0-0.7) k/uL Basophils # 0.0 (0-0.2) k/uL Hypochromasia Slight Anisocytosis Slight PT 11.6 (9.0-12.0) sec INR 1.1 (<1.2) APTT 28.0 (22.0-30.0) sec Sodium (137-145) mmol/L Potassium (3.5-5.1) mmol/L Chloride (98-107) mmol/L Carbon Dioxide (22-30) mmol/L Anion Gap mmol/L BUN (7-17) mg/dL Creatinine (0.52-1.04) mg/dL Est GFR (CKD-EPI)AfAm (>60 ml/min/1.73 sqM) Est GFR (CKD-EPI)NonAf (>60 ml/min/1.73 sqM) Glucose (74-99) mg/dL Plasma Lactic Acid Sandeep (0.7-2.0) mmol/L Calcium (8.4-10.2) mg/dL Total Bilirubin (0.2-1.3) mg/dL AST (14-36) U/L ALT (4-34) U/L Alkaline Phosphatase (38-126) U/L Ammonia (<30) umol/L Troponin I (0.000-0.034) ng/mL NT-Pro-B Natriuret Pep pg/mL Total Protein (6.3-8.2) g/dL Albumin (3.5-5.0) g/dL TSH (0.465-4.680) mIU/L Urine Color Light Yellow Urine Appearance Cloudy H (Clear) Urine pH 7.5 (5.0-8.0) Ur Specific [place] 1.008 (1.001-1.035) Urine Protein 1+ H (Negative) Urine Glucose (UA) Negative (Negative) Urine Ketones Negative (Negative) Urine Blood Moderate H (Negative) Urine Nitrite Positive H (Negative) Urine Bilirubin Negative (Negative) Urine Urobilinogen <2.0 (<2.0) mg/dL Ur Leukocyte Esterase Large H (Negative) Urine RBC 8 H (0-5) /hpf Urine WBC >182 H (0-5) /hpf Urine WBC Clumps Moderate H (None) /hpf Urine Bacteria Occasional H (None) /hpf Hyaline Casts 2 (0-2) /lpf Urine Mucus Few H (None) /hpf Salicylates mg/dL Urine Opiates Screen Detected H (NotDetected) Ur Oxycodone Screen Not Detected (NotDetected) Urine Methadone Screen Not Detected (NotDetected) Ur Propoxyphene Screen Not Detected (NotDetected) Acetaminophen ug/mL Ur Barbiturates Screen Not Detected (NotDetected) U Tricyclic Antidepress Not Detected (NotDetected) Ur Phencyclidine Scrn Not Detected (NotDetected) Ur Amphetamines Screen Not Detected (NotDetected) U Methamphetamines Scrn Not Detected (NotDetected) U Benzodiazepines Scrn Not Detected (NotDetected) Urine Cocaine Screen Not Detected (NotDetected) U Marijuana (THC) Screen Not Detected (NotDetected) Serum Alcohol mg/dL 11/01/21 11/01/21 11/01/21 Range/Units 16:31 16:31 16:31 WBC (3.8-10.6) k/uL RBC (3.80-5.40) m/uL Hgb (11.4-16.0) gm/dL Hct (34.0-46.0) % MCV (80.0-100.0) fL MCH (25.0-35.0) pg MCHC (31.0-37.0) g/dL RDW (11.5-15.5) % Plt Count (150-450) k/uL MPV Neutrophils % % Lymphocytes % % Monocytes % % Eosinophils % % Basophils % % Neutrophils # (1.3-7.7) k/uL Lymphocytes # (1.0-4.8) k/uL Monocytes # (0-1.0) k/uL Eosinophils # (0-0.7) k/uL Basophils # (0-0.2) k/uL Hypochromasia Anisocytosis PT (9.0-12.0) sec INR (<1.2) APTT (22.0-30.0) sec Sodium 134 L (137-145) mmol/L Potassium 3.7 (3.5-5.1) mmol/L Chloride 98 (98-107) mmol/L Carbon Dioxide 31 H (22-30) mmol/L Anion Gap 5 mmol/L BUN 27 H (7-17) mg/dL Creatinine 1.71 H (0.52-1.04) mg/dL Est GFR (CKD-EPI)AfAm 34 (>60 ml/min/1.73 sqM) Est GFR (CKD-EPI)NonAf 30 (>60 ml/min/1.73 sqM) Glucose 125 H (74-99) mg/dL Plasma Lactic Acid Sandeep 0.8 (0.7-2.0) mmol/L Calcium 9.3 (8.4-10.2) mg/dL Total Bilirubin 0.5 (0.2-1.3) mg/dL AST 27 (14-36) U/L ALT 8 (4-34) U/L Alkaline Phosphatase 110 (38-126) U/L Ammonia <9 (<30) umol/L Troponin I 0.256 H* (0.000-0.034) ng/mL NT-Pro-B Natriuret Pep pg/mL Total Protein 7.0 (6.3-8.2) g/dL Albumin 3.1 L (3.5-5.0) g/dL TSH 1.870 (0.465-4.680) mIU/L Urine Color Urine Appearance (Clear) Urine pH (5.0-8.0) Ur Specific [place] (1.001-1.035) Urine Protein (Negative) Urine Glucose (UA) (Negative) Urine Ketones (Negative) Urine Blood (Negative) Urine Nitrite (Negative) Urine Bilirubin (Negative) Urine Urobilinogen (<2.0) mg/dL Ur Leukocyte Esterase (Negative) Urine RBC (0-5) /hpf Urine WBC (0-5) /hpf Urine WBC Clumps (None) /hpf Urine Bacteria (None) /hpf Hyaline Casts (0-2) /lpf Urine Mucus (None) /hpf Salicylates <1.0 mg/dL Urine Opiates Screen (NotDetected) Ur Oxycodone Screen (NotDetected) Urine Methadone Screen (NotDetected) Ur Propoxyphene Screen (NotDetected) Acetaminophen <10.0 ug/mL Ur Barbiturates Screen (NotDetected) U Tricyclic Antidepress (NotDetected) Ur Phencyclidine Scrn (NotDetected) Ur Amphetamines Screen (NotDetected) U Methamphetamines Scrn (NotDetected) U Benzodiazepines Scrn (NotDetected) Urine Cocaine Screen (NotDetected) U Marijuana (THC) Screen (NotDetected) Serum Alcohol <10 mg/dL 11/01/21 Range/Units 16:31 WBC (3.8-10.6) k/uL RBC (3.80-5.40) m/uL Hgb (11.4-16.0) gm/dL Hct (34.0-46.0) % MCV (80.0-100.0) fL MCH (25.0-35.0) pg MCHC (31.0-37.0) g/dL RDW (11.5-15.5) % Plt Count (150-450) k/uL MPV Neutrophils % % Lymphocytes % % Monocytes % % Eosinophils % % Basophils % % Neutrophils # (1.3-7.7) k/uL Lymphocytes # (1.0-4.8) k/uL Monocytes # (0-1.0) k/uL Eosinophils # (0-0.7) k/uL Basophils # (0-0.2) k/uL Hypochromasia Anisocytosis PT (9.0-12.0) sec INR (<1.2) APTT (22.0-30.0) sec Sodium (137-145) mmol/L Potassium (3.5-5.1) mmol/L Chloride (98-107) mmol/L Carbon Dioxide (22-30) mmol/L Anion Gap mmol/L BUN (7-17) mg/dL Creatinine (0.52-1.04) mg/dL Est GFR (CKD-EPI)AfAm (>60 ml/min/1.73 sqM) Est GFR (CKD-EPI)NonAf (>60 ml/min/1.73 sqM) Glucose (74-99) mg/dL Plasma Lactic Acid Sandeep (0.7-2.0) mmol/L Calcium (8.4-10.2) mg/dL Total Bilirubin (0.2-1.3) mg/dL AST (14-36) U/L ALT (4-34) U/L Alkaline Phosphatase (38-126) U/L Ammonia (<30) umol/L Troponin I (0.000-0.034) ng/mL NT-Pro-B Natriuret Pep 13666 pg/mL Total Protein (6.3-8.2) g/dL Albumin (3.5-5.0) g/dL TSH (0.465-4.680) mIU/L Urine Color Urine Appearance (Clear) Urine pH (5.0-8.0) Ur Specific [place] (1.001-1.035) Urine Protein (Negative) Urine Glucose (UA) (Negative) Urine Ketones (Negative) Urine Blood (Negative) Urine Nitrite (Negative) Urine Bilirubin (Negative) Urine Urobilinogen (<2.0) mg/dL Ur Leukocyte Esterase (Negative) Urine RBC (0-5) /hpf Urine WBC (0-5) /hpf Urine WBC Clumps (None) /hpf Urine Bacteria (None) /hpf Hyaline Casts (0-2) /lpf Urine Mucus (None) /hpf Salicylates mg/dL Urine Opiates Screen (NotDetected) Ur Oxycodone Screen (NotDetected) Urine Methadone Screen (NotDetected) Ur Propoxyphene Screen (NotDetected) Acetaminophen ug/mL Ur Barbiturates Screen (NotDetected) U Tricyclic Antidepress (NotDetected) Ur Phencyclidine Scrn (NotDetected) Ur Amphetamines Screen (NotDetected) U Methamphetamines Scrn (NotDetected) U Benzodiazepines Scrn (NotDetected) Urine Cocaine Screen (NotDetected) U Marijuana (THC) Screen (NotDetected) Serum Alcohol mg/dL - EKG Data EKG Comments: EKG demonstrates a sinus tach with a rate of 103. ND interval 152. QRS 99. QTC of 428. No acute ST segment elevations or depressions Disposition Clinical Impression: NSTEMI (non-ST elevated myocardial infarction), Encephalopathy, RADHA (acute kidney injury), UTI (urinary tract infection), Diabetic foot ulcer associated with type 2 diabetes mellitus Disposition: ADMITTED IP TO THIS HOSP Condition: Stable Is patient prescribed a controlled substance at d/c from ED?: No Time of Disposition: 17:51 Decision to Admit Reason: Admit from EC Decision Date: 11/01/21 Decision Time: 17:51
[2021-11-01 16:50] LABS: Anisocytosis Slight; Basophils % (A) 1 %; Eosinophils # (A) 0.1 k/uL (0-0.7); Eosinophils % (A) 3 %; HCT 42.6 % (34.0-46.0); Hypochromasia Slight; Lymphocytes # (A) 1.1 k/uL (1.0-4.8); Lymphocytes % (A) 33 %; MCH 27.8 pg (25.0-35.0); MCHC 30.7 g/dL (31.0-37.0); MCV 90.8 fL (80.0-100.0); Mean Platelet Volume 6.9; Monocytes # (A) 0.3 k/uL (0-1.0); Monocytes % (A) 8 %; Neutrophils # (A) 1.8 k/uL (1.3-7.7); Neutrophils % (A) 54 %; Platelet Count 184 k/uL (150-450); RDW 16.2 % (11.5-15.5); WBC 3.3 k/uL (3.8-10.6)
[2021-11-01 16:52] LABS: Lactic Acid, Venous 0.8 mmol/L (0.7-2.0)
[2021-11-01 16:54] LABS: INR 1.1 (<1.2); Prothrombin Time 11.6 sec (9.0-12.0)
[2021-11-01 16:59] LABS: ALT 8 U/L (4-34); AST 27 U/L (14-36); Acetaminophen <10.0 ug/mL; African American GFR (CKD) 34 (>60 ml/min/1.73 sqM); Albumin 3.1 g/dL (3.5-5.0); Alcohol <10 mg/dL; Alkaline Phosphatase 110 U/L (38-126); Anion Gap 5 mmol/L; Blood Urea Nitrogen 27 mg/dL (7-17); Calcium 9.3 mg/dL (8.4-10.2); Carbon Dioxide 31 mmol/L (22-30); Chloride 98 mmol/L (98-107); Glucose 125 mg/dL (74-99); Non-African American GFR(CKD) 30 (>60 ml/min/1.73 sqM); Potassium 3.7 mmol/L (3.5-5.1); Salicylate <1.0 mg/dL; Sodium 134 mmol/L (137-145); Total Bilirubin 0.5 mg/dL (0.2-1.3)
--- NOTE | 2021-11-01 17:02 | CT ---
EXAMINATION TYPE: CT brain wo con CT DLP: 1129.4 mGycm, Automated exposure control for dose reduction was used. DATE OF EXAM: 11/01/2021 4:51 PM COMPARISON: CT 05/16/2021. CLINICAL INDICATION:Female, 71 years old with history of Altered mental status, TECHNIQUE: Brain: Multiple axial CT images of the brain were obtained without IV contrast. FINDINGS: Brain: Extra-axial spaces: No abnormal extra-axial fluid collections. Ventricular system: Within normal limits Cerebral parenchyma: Remote right temporal injury and right basal ganglia. No acute intraparenchymal hemorrhage or mass effect. The remainder of the forte-white junctions are well differentiated. Cerebellum: Unremarkable. Mass effect: No evidence of midline shift. Intracranial vasculature: Atherosclerotic calcifications of the intracranial vessels. Soft tissues: Normal. Calvarium/osseous structures: No depressed skull fracture. Paranasal sinuses and mastoid air cells: Mild scattered paranasal sinus disease. Visualized orbits: Bilateral aphakia IMPRESSION: 1. No acute intracranial process. 2. Similar remote temporal lobe injury within cephalization along with a right basal ganglia injury.
[2021-11-01 17:07] LABS: Amphetamine Screen,Urine Not Detected (NotDetected); Appearance,Urine Cloudy (Clear); Bacteria,Urine Occasional /hpf; Barbiturate Screen,Urine Not Detected (NotDetected); Benzodiazepines Screen,Urine Not Detected (NotDetected); Bilirubin,Urine Negative (Negative); Blood,Urine Moderate (Negative); Cocaine Screen,Urine Not Detected (NotDetected); Color,Urine Light Yellow; Glucose,Urine (UA) Negative (Negative); Hyaline Casts,Urine 2 /lpf (0-2); Ketones,Urine Negative (Negative); Leukocyte Esterase,Urine Large (Negative); Methadone Screen, Urine Not Detected (NotDetected); Mucus,Urine Few /hpf; Nitrite,Urine Positive (Negative); Opiate Screen,Urine Detected (NotDetected); Oxycodone Screen, Urine Not Detected (NotDetected); PH, Urine 7.5 (5.0-8.0); Phencyclidine Screen,Urine Not Detected (NotDetected); Protein,Urine 1+ (Negative); RBC,Urine 8 /hpf (0-5); Specific Gravity,Urine 1.008 (1.001-1.035); Tricyclic Antidepressant,Urine Not Detected (NotDetected); Urn Cannabinoid Scrn Not Detected (NotDetected); Urobilinogen,Urine <2.0 mg/dL (<2.0); WBC,Urine >182 /hpf (0-5)
[2021-11-01 17:09] LABS: HGB 13.1 gm/dL (11.4-16.0)
--- NOTE | 2021-11-01 17:16 | XR ---
PROCEDURE: XR foot complete LT - 3V DATE AND TIME: 11/01/2021 4:59 PM CLINICAL INDICATION: Pain; infection TECHNIQUE: Department protocol COMPARISON: 02/18/2021 FINDINGS: There is no fracture or malalignment. The soft tissues are remarkable for diffuse soft tissue swelling of the midfoot and forefoot, with a 2 cm soft tissue defect including subcutaneous soft tissue emphysema immediately lateral and plantar to the fifth metatarsal head and neck. Neither soft tissue abscess nor underlying osteomyelitis can b e excluded by radiographic criteria. There are sub-cm foci of osteopenia involving the fifth metatars al head and neck as well as the third metatarsal neck. MRI without and with contrast can fully charac terize. IMPRESSION: Abnormalities as above.
--- NOTE | 2021-11-01 17:31 | XR ---
EXAMINATION: XR chest 2V DATE AND TIME: 11/01/2021 5:00 PM CLINICAL INDICATION: altered mental status TECHNIQUE: AP and lateral views COMPARISON: 08/12/2019 FINDINGS: The overlying soft tissues are prominent.The lungs appear well-expanded, without definite acute proce ss. The pleural spaces are negative. Sternal sutures and mediastinal clips noted. Left upper extremity PICC line noted, with tip superimpo sed over the distal SVC. The cardiac silhouette is not top normal. The skeletal structures and soft tissues are negative for acute findings. IMPRESSION: No definite acute radiographic process.
[2021-11-01] MEDS ORDERED: cefTRIAXone IN SWFI 1,000 MG/10 ML SYRINGE IVP STA (17:38)
[2021-11-01] MEDS ORDERED: NALOXONE 0.4 MG/ML 1 ML VIAL IV PRN (17:51)
[2021-11-01] MEDS ORDERED: HYDROcodone/APAP 5-325MG 1 EACH TAB PO PRN (19:51)
[2021-11-01] MEDS ORDERED: ALPRAZolam 1 MG TAB PO PRN (19:51)
[2021-11-01 20:51] LABS: Glucose,Whole Blood 197 mg/dL (70-110)
[2021-11-01] MEDS: GABAPENTIN 300 MG CAP PO SCH (20:56)
[2021-11-01] MEDS: MONTELUKAST 10 MG TAB PO SCH (20:56)
[2021-11-01] MEDS: INSULIN ASPART (NovoLOG) 100 UNIT/ML VIAL SQ SCH (20:56)
[2021-11-01] MEDS: METOPROLOL TARTRATE 25 MG TAB PO SCH (20:56)
[2021-11-01] MEDS: APIXABAN 2.5 MG TABLET PO SCH (20:56)
[2021-11-01] MEDS: SODIUM CHLORIDE 0.9% 1,000 ML IV SCH (20:57)
[2021-11-02 06:22] LABS: Glucose,Whole Blood 113 mg/dL (70-110)
[2021-11-02] MEDS: SODIUM CHLORIDE 0.9% 1,000 ML IV SCH ×2 (06:50→12:20)
[2021-11-02] MEDS: INSULIN ASPART (NovoLOG) 100 UNIT/ML VIAL SQ SCH ×4 (08:01→21:04)
[2021-11-02 08:49] LABS: Albumin 2.7 g/dL (3.5-5.0); Calcium 8.6 mg/dL (8.4-10.2); Total Bilirubin 0.4 mg/dL (0.2-1.3); Total Protein 6.3 g/dL (6.3-8.2)
[2021-11-02] MEDS ORDERED: ATORVASTATIN 80 MG TAB PO SCH (09:00)
[2021-11-02 09:31] LABS: Anisocytosis Slight; Basophils % (A) 0 %; Eosinophils # (A) 0.2 k/uL (0-0.7); Eosinophils % (A) 4 %; HCT 29.3 % (34.0-46.0); Hypochromasia Slight; Lymphocytes # (A) 2.4 k/uL (1.0-4.8); Lymphocytes % (A) 40 %; MCH 28.9 pg (25.0-35.0); MCV 90.4 fL (80.0-100.0); Mean Platelet Volume 8.6; Monocytes # (A) 0.7 k/uL (0-1.0); Monocytes % (A) 11 %; Neutrophils # (A) 2.5 k/uL (1.3-7.7); Neutrophils % (A) 41 %; Platelet Count 265 k/uL (150-450); RBC 3.25 m/uL (3.80-5.40); RDW 16.2 % (11.5-15.5)
[2021-11-02 09:33] LABS: HGB 9.4 gm/dL (11.4-16.0)
[2021-11-02] MEDS: INSULIN DETEMIR (LEVEMIR) 100 UNIT/ML SYR SQ SCH (09:42)
[2021-11-02] MEDS: APIXABAN 2.5 MG TABLET PO SCH ×2 (09:43→21:03)
[2021-11-02] MEDS: DULoxetine HCL 60 MG CAPSULE.DR PO SCH (09:43)
[2021-11-02] MEDS: amLODIPine 10 MG TAB PO SCH (09:43)
[2021-11-02] MEDS: AMIODARONE 200 MG TAB PO SCH (09:43)
[2021-11-02] MEDS: NON FORMULARY DRUG (Lumateperone Tosylate [Caplyta] 42 MG Capsule) PO SCH (10:18)
[2021-11-02 11:50] LABS: Glucose,Whole Blood 170 mg/dL (70-110)
--- NOTE | 2021-11-02 11:56 | P.HPIM ---
History of Present Illness H&P Date: 11/02/21 HISTORY OF PRESENT ILLNESS This is a 71-year-old female patient of Dr. Sanderson with past medical history of diabetes mellitus type 2, hypertension, hyperlipidemia, CVA in 2013 with no residuals, coronary artery disease status post 4 vessel CABG, bilateral carotid endarterectomies, mild intermittent asthma, osteomyelitis status post right great toe amputation 2014 and left toe amputation and left big toe amputation as well. Patient was hospitalized recently at [facility] for osteomyelitis and severe cellulitis of the left foot require debrid ement status post debridement by Dr. Gregory patient was placed on IV antibiotics apparently in the form of daptomycin by Dr. Mccabe. Note the patient's was also recently hospitalized at [facility] and he has subsequently passed last week. Patient apparently came into [facility] in [facility] by EMS due to altered mental status as well as clinical decline since her discharge from [facility]. She has had multiple falls has been lethargic. Patient was found to be afebrile, heart rate 90, blood pressure 121/67, pulse ox 96% on room air. EKG sinus tachycardia. WBC 3.3, hemoglobin 13.1, platelet count 184. Sodium 134, potassium 3.7, chloride 90, CO2 31, BUN 27 creatinine 1.71. Blood sugar 125. INR 1.1. Urinalysis blood moderate, nitrate positive, leukoesterase large, WBC greater than 182, WBC clumps moderate, bacteria occasional. Urine drug screen was positive for opiates. Lactic acid 0.8. Liver function tests were normal. Ammonia level less than 9. Troponin 0.256, 0.303, 0.264. TSH 1.87. Albumin 3.1. Salicylate level less than 1 and acetaminophen level less than 10. Serum alcohol level less than 10. ProBNP 20,500 Chest x-ray reveals no definite acute process. CAT scan of the brain revealed no acute intracranial process. Similar remote temporal lobe injury along with right basal ganglia injury. Left foot x-ray reveals no fracture or malalignment. Patient was provided a half liter of IV fluid, 1 dose of ceftriaxone, admitted to the cardiac stepdown unit and consults with Dr. Gregory and Dr. Mccabe. REVIEW OF SYSTEMS Constitutional: No fever, no chills, no night sweats. No weight change. No weakness, fatigue or lethargy. No daytime sleepiness. EENT: No headache. No blurred vision or double vision, no loss of vision. No loss of Hearing, no ringing in the ears, no dizziness. No nasal drainage or congestion. No epistaxis. No sore throat. Lungs: significant shortness of breath cough wheezes with significant edema. Cardiovascular: positive shortness of breath with PND orthopnea mild palpitation with worsening edema at the time with no chest pain, Abdominal: No abdominal pain. No nausea, vomiting. No diarrhea. No constipation. No bloody or tarry stools.. No loss of appetite. Genitourinary: No dysuria, increased frequency, urgency. No urinary retention. Musculoskeletal: No myalgias. No muscle weakness, no gait dysfunction, no frequent falls. No back pain. No neck pain. Integumentary: Reported wounds to left foot. No rash or pruritus. No unusual bruising. No change in hair or nails. amputation of the left toes one through 3, right great toe amputation, small superficial wound to the second toe right foot. Neurologic: No aphasia. No facial droop. No change in mentation. No head injury. No headache. No paralysis. No paresthesia. Psychiatric: No depression. No anxiety. No mood swings. Endocrine: No abnormal blood sugars. No weight change. No excessive sweating or thirst. No cold intolerance. SOCIAL HISTORY Patient was a smoker starting at age 17 1 pack per day and quit in 1981. No alcohol abuse, no illicit drug use. Patient lives at home with her daughter and sister as caregivers, she uses a walker for ambulation. patient's recently last week. FAMILY HISTORY Mother is at age 90 from coronary artery disease. Father at age 86 from coronary artery disease and diabetes. Patient has one sister with lung cancer. Patient has 2 brothers and one is healthy and one has history of lung cancer. Patient has 3 daughters and one has MS, one with a female cancer and one is healthy with no major medical problems. PHYSICAL EXAMINATION Gen: This is a 71 year-old obese female. She is resting in recliner and appears to be comfortable and in no acute distress. HEENT: Head is atraumatic, normocephalic. Pupils equal, round. Sclerae is a nicteric. NECK: Supple. No JVD. No lymphadenopathy. No thyromegaly. LUNGS: Clear to auscultation. No wheezes or rhonchi. No intercostal retractions. HEART: Regular rate and rhythm. No murmur. ABDOMEN: Soft. Bowel sounds are present. No masses. No tenderness. EXTREMITIES: No pedal edema. No calf tenderness. Right great toe amputation, l right second toe has small abrasion. Left foot has amputation of toes 1-3. There is a large ulcer on the lateral fifth metatarsal 1-1/2 inch by three-aris rter inch stage IV. NEUROLOGICAL: Patient is awake, alert and oriented to person and place. Cranial nerves 2 through 12 are grossly intact. ASSESSMENT AND PLAN Acute metabolic encephalopathy secondary to sepsis and osteomyelitis. Patient admitted to the cardiac stepdown unit, patient will be resumed on daptomycin, consult with Dr. Mccabe and Dr. Gregory. Osteomyelitis the left foot. Patient is status post debridement at [facility] by Dr. Gregory, discharge with home care and IV daptomycin which will be resumed. Possible urinary tract infection. Patient is status post 1 dose of ceftriaxone. Elevated troponins. Consult with cardiology. Echocardiogram ordered Acute kidney injury and chronic kidney disease stage III. Continue IV hydration but decreased to 50 mL per hour due to history of heart failure. Chronic systolic and diastolic heart failure. Hold Lasix 40 mg daily, hold Aldactone 100 mg daily. COPD without exacerbation. Continue albuterol nebulizer treatment every 6 hours as needed. Continue Singulair 10 mg at bedtime. Paroxysmal atrial fibrillation. Continue eliquis 2.5 mg twice daily, amiodarone 200 mg daily, Lopressor 25 mg at bedtime. Coronary artery disease with history of 4 vessel CABG at [facility] in 2014. History of inferior ST elevated myocardial infarction 08/2020 status post PCI of the SVG to RCA. Diabetes mellitus type 2 insulin requiring. Continue Levemir 8 units daily, NovoLog 12 units before meals and at bedtime will be discontinued and patient placed on NovoLog scale before meals and at bedtime. History of DVT and pulmonary embolism. Continue eliquis 2.5 mg twice daily. History of CVA and mild memory loss. Hypertension. Continue amlodipine 10 mg daily. Hyperlipidemia. Continue atorvastatin decreased to 40 mg daily while on daptomycin . Diabetic neuropathy. Continue gabapentin 3 mg at bedtime. Recurrent depression and generalized anxiety disorder, situational anxiety disorder with recent loss of her . Continue patient on Cymbalta 60 mg at bedtime, Xanax 1 mg at bedtime. Peripheral vascular disease with previous stenting of the right lower extremity. Consult with Dr. Gregory. GI prophylaxis. Protonix. DVT prophylaxis. Eliquis. CODE STATUS: NO code. Admit patient to the inpatient service for more than 2 night stay. DISCHARGE PLAN TBD. Most likely return home with [facility] care. PT consult. Impression and plan of care have been directed as dictated by the signing physician. Emily Higginbotham nurse practitioner acting as scribe for signing physician. Past Medical History Past Medical History: Asthma, Coronary Artery Disease (CAD), Heart Failure, COPD, CVA/TIA, Diabetes Mellitus, Hyperlipidemia, Hypertension, Pneumonia, Rheumatoid Arthritis (RA) Additional Past Medical History / Comment(s): left GREAT TOE WOUND, with current dressing, partial amputation on 06/28/20. hx of hyperbaric chamber 5 days a week, current PICC line left arm Last Myocardial Infarction Date:: 2014 History of Any Multi-Drug Resistant Organisms: None Reported Past Surgical History: Adenoidectomy, Appendectomy, Coronary Bypass/CABG, Heart Catheterization, Tonsillectomy, Tubal Ligation Additional Past Surgical History / Comment(s): Open heart on April 13 2015, cabg X4, bilateral carotid endarterectomies,. Right great toe amputation 2014. stent in right leg above knee, elke cataracts. left toe ambutation, 06/18/20 Past Anesthesia/Blood Transfusion Reactions: Previous Problems w/ Anesthesia Additional Past Anesthesia/Blood Transfusion Reaction / Comment(s): diff breathing afterwards Past Psychological History: No Psychological Hx Reported, Depression Additional Psychological History / Comment(s): current depression r/t passing away a week ago Smoking Status: Former smoker Past Alcohol Use History: None Reported Additional Past Alcohol Use History / Comment(s): STARTED SMOKING AT AGE 17, SMOKED 1 OR MORE PPD, QUIT 1982frompoor in Hospital in October 2013. 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 She is currently living at home with daughter and sister Past Drug Use History: None Reported - Past Family History Father Family Medical History: Coronary Artery Disease (CAD), CVA/TIA, Diabetes Mellitus Mother Family Medical History: Myocardial Infarction (NM) Additional Family Medical History / Comment(s): "spot on the lung", from heart attack Medications and Allergies Home Medications Medication Instructions Recorded Confirmed Type Albuterol Sulfate [Proair Hfa] 2 puff INHALATION RT-Q6H PRN 06/16/20 11/01/21 History Montelukast Sodium [Singulair] 10 mg PO HS 07/15/20 11/01/21 History DULoxetine HCL [Cymbalta] 60 mg PO DAILY 08/29/20 11/01/21 History Insulin Glargine,Hum.rec.anlog 8 unit SQ DAILY 05/16/21 11/01/21 History [Lantus Solostar Pen] Furosemide [Lasix] 40 mg PO DAILY 08/08/21 11/01/21 History ALPRAZolam [Xanax] 1 mg PO HS PRN 11/01/21 11/01/21 History Amiodarone [Cordarone] 200 mg PO DAILY 11/01/21 11/01/21 History Apixaban [Eliquis] 2.5 mg PO BID 11/01/21 11/01/21 History Atorvastatin [Lipitor] 80 mg PO DAILY 11/01/21 11/01/21 History Gabapentin [Neurontin] 300 mg PO HS 11/01/21 11/01/21 History HYDROcodone/APAP 5-325MG [[place] 1 tab PO BID PRN 11/01/21 11/01/21 History 5-325] Insulin Aspart [NovoLOG Flexpen] 12 units SQ ACHS 11/01/21 11/01/21 History Lumateperone Tosylate [Caplyta] 42 mg PO DAILY 11/01/21 11/01/21 History Metoprolol Tartrate [Lopressor] 25 mg PO HS 11/01/21 11/01/21 History Spironolactone 100 mg PO DAILY 11/01/21 11/01/21 History amLODIPine [Norvasc] 10 mg PO DAILY 11/01/21 11/01/21 History Allergies Allergy/AdvReac Type Severity Reaction Status Date / Time nickel Allergy Rash/Hives Verified 08/08/21 14:01 levofloxacin [From Levaquin] AdvReac Confusion Verified 08/08/21 14:01 Physical Exam Vitals: Vital Signs Temp Pulse Pulse Resp BP BP Pulse Ox 11/02/21 03:13 98.7 F 76 14 108/53 93 L 11/01/21 23:09 99.6 F 72 16 106/55 92 L 11/01/21 21:00 99.0 F 87 16 104/58 96 11/01/21 15:14 98.0 F 98 16 121/67 96 Intake and Output 11/01/21 11/02/21 11/02/21 22:59 06:59 14:59 Intake Total 750 420 Output Total 650 Balance 100 420 Intake: Intake, IV Titration 550 Amount Sodium Chloride 0.9% 1, 450 000 ml @ 75 mls/hr IV . [id number] [facility] Rx#:[id number] cefTRIAXone 1 gm In 100 Sodium Chloride 0.9% 50 ml @ 100 mls/hr IVPB ONCE STA Rx#:[id number] Oral 200 420 Output: Urine 650 Other: Voiding Method External Catheter External Catheter # Voids 1 # Bowel Movements 1 Weight 65.771 kg Results CBC & Chem 7: 11/02/21 08:12 11/02/21 08:12 Labs: Abnormal Lab Results - Last 24 Hours (Table) 11/01/21 11/01/21 11/01/21 Range/Units 16:31 16:31 16:31 WBC 3.3 L (3.8-10.6) k/uL MCHC 30.7 L (31.0-37.0) g/dL RDW 16.2 H (11.5-15.5) % Sodium 134 L (137-145) mmol/L Carbon Dioxide 31 H (22-30) mmol/L BUN 27 H (7-17) mg/dL Creatinine 1.71 H (0.52-1.04) mg/dL Glucose 125 H (74-99) mg/dL POC Glucose (mg/dL) (70-110) mg/dL Troponin I (0.000-0.034) ng/mL Albumin 3.1 L (3.5-5.0) g/dL Urine Appearance Cloudy H (Clear) Urine Protein 1+ H (Negative) Urine Blood Moderate H (Negative) Urine Nitrite Positive H (Negative) Ur Leukocyte Esterase Large H (Negative) Urine RBC 8 H (0-5) /hpf Urine WBC >182 H (0-5) /hpf Urine WBC Clumps Moderate H (None) /hpf Urine Bacteria Occasional H (None) /hpf Urine Mucus Few H (None) /hpf Urine Opiates Screen Detected H (NotDetected) 11/01/21 11/01/21 11/01/21 Range/Units 16:31 18:08 20:40 WBC (3.8-10.6) k/uL MCHC (31.0-37.0) g/dL RDW (11.5-15.5) % Sodium (137-145) mmol/L Carbon Dioxide (22-30) mmol/L BUN (7-17) mg/dL Creatinine (0.52-1.04) mg/dL Glucose (74-99) mg/dL POC Glucose (mg/dL) 197 H (70-110) mg/dL Troponin I 0.256 H* 0.303 H* (0.000-0.034) ng/mL Albumin (3.5-5.0) g/dL Urine Appearance (Clear) Urine Protein (Negative) Urine Blood (Negative) Urine Nitrite (Negative) Ur Leukocyte Esterase (Negative) Urine RBC (0-5) /hpf Urine WBC (0-5) /hpf Urine WBC Clumps (None) /hpf Urine Bacteria (None) /hpf Urine Mucus (None) /hpf Urine Opiates Screen (NotDetected) 11/01/21 11/02/21 11/02/21 Range/Units 21:00 06:10 08:12 WBC (3.8-10.6) k/uL MCHC (31.0-37.0) g/dL RDW (11.5-15.5) % Sodium (137-145) mmol/L Carbon Dioxide (22-30) mmol/L BUN 28 H (7-17) mg/dL Creatinine 1.57 H (0.52-1.04) mg/dL Glucose 107 H (74-99) mg/dL POC Glucose (mg/dL) 113 H (70-110) mg/dL Troponin I 0.264 H* (0.000-0.034) ng/mL Albumin 2.7 L (3.5-5.0) g/dL Urine Appearance (Clear) Urine Protein (Negative) Urine Blood (Negative) Urine Nitrite (Negative) Ur Leukocyte Esterase (Negative) Urine RBC (0-5) /hpf Urine WBC (0-5) /hpf Urine WBC Clumps (None) /hpf Urine Bacteria (None) /hpf Urine Mucus (None) /hpf Urine Opiates Screen (NotDetected) Microbiology - Last 24 Hours (Table) 11/01/21 16:31 Urine Culture - Preliminary Urine,Voided Thrombosis Risk Factor Assmnt - Choose All That Apply Each Factor Represents 1 point: Abnormal pulmonary function (COPD), Obesity (BMI >25) Each Risk Factor Represents 2 Points: Age 61-74 years, Central venous access Thrombosis Risk Factor Assessment Total Risk Factor Score: 6 Thrombosis Risk Factor Assessment Level: High Risk
[2021-11-02] MEDS: DAPTOmycin 500 MG in SODIUM CHLORIDE 0.9% 50 ML IVPB SCH (12:52)
[2021-11-02] MEDS: COLLAGENASE 250 UNIT/GM OINTMENT 30 GM TUBE TOPICAL SCH (13:40)
--- NOTE | 2021-11-02 13:50 | P.CRDCN ---
History of Present Illness Consult date: 11/02/21 History of present illness: HISTORY OF PRESENT ILLNESS: This is a 71-year-old female with a past medical history significant for coronary artery disease with previous CABG, ischemic cardiomyopathy, paroxysmal atrial fibrillation, hypertension, hyperlipidemia, and CVA. Patient follows in the office with Dr. Soto. We have been asked to see the patient in consultation for elevated troponins. Patient has a history of right and left great toe amp utation. She was recently hospitalized at [facility] for cellulitis and required debridement of her wounds. She is admitted to the hospital now with acute metabolic encephalopathy, sepsis, and osteomyelitis. Patient examined this afternoon. She is sitting up in the chair. She denies any chest pain or pres sure. Denies any SOB. Vital signs are stable. He recently underwent Lexiscan stress test that was negative for ischemia but did reveal cardiomyopathy with an ejection fraction of 30%. Dr. Rondon spoke to the patient about having an AICD implanted and she was going to think about it. She states her recently and she has not had time to think about having AICD placed. * EKG reveals sinus mechanism with no signs of acute ischemia * Chest xray negative for acute process * Laboratory data: WBC 6.0. Hemoglobin 9.4. Platelet count 265. Sodium 137. Potassium 4.0. B UN 28. Creatinine 1.57. Troponin 0.256. 0.303. 0.264. * Current home cardiac medications include amiodarone 200 mg daily, amlodipine 10 mg daily, Eliquis 2.5 mg twice a day, atorvastatin 80 mg daily, Lasix 40 mg daily, metoprolol tartrate 25 mg at night, spironolactone 100 mg daily * Most recent echocardiogram obtained in July 2021 revealed ejection fraction 30%, inferior wall hypokinesis, anterior septal hypokinesis, apical hypokinesis, moderate mitral regurgitation, mild aortic regurgitation, mild tricuspid regurgitation. REVIEW OF SYSTEMS: At the time of my exam: CONSTITUTIONAL: Denies fever or chills. HEENT: Denies blurred vision, vision changes, or eye pain. Denies hemoptysis CARDIOVASCULAR: Denies chest pain. Denies orthopnea. Denies PND. Denies palpitations RESPIRATORY: Denies shortness of breath. GASTROINTESTINAL: Denies abdominal pain. Denies nausea or vomiting. HEMATOLOGIC: Denies bleeding disorders. GENITOURINARY: Denies any blood in urine. SKIN: Denies pruitis. Denies rash. PHYSICAL EXAM: VITAL SIGNS: Reviewed. GENERAL: Well-developed in no acute distress. HEENT: Head is normocephalic. Pupils are equal, round. Sclerae anicteric. Mucous membranes of the mouth are moist. Neck supple. No JVD or thyromegaly LUNGS: Respirations even and unlabored. Lungs essentially clear to auscultation bilaterally. HEART: Regular rate and rhythm. S1 and S2 heard. Systolic murmur noted. ABDOMEN: Soft. Nondistended. Nontender. EXTREMITIES: Normal range of motion. No clubbing or cyanosis. Peripheral pulses intact. Toe amputations noted. NEUROLOGIC: Awake and alert. Oriented x 3. ASSESSMENT: Sepsis with osteomyelitis of left foot, with recent debridement at [facility] Abnormal troponins, flat, not suggestive of ACS, likely secondary to infectious process Coronary artery disease with previous CABG Ischemic cardiomyopathy Paroxysmal atrial fibrillation Hypertension Hyperlipidemia History of CVA Acute kidney injury Diabetes Valvular heart disease PLAN: An acute coronary event has been ruled out Resume home cardiac medications Obtain 2-D echo to assess cardiac structure and function Further recommendations pending patient's course Nurse practitioner note has been reviewed by physician. Signing provider agrees with the documented findings, assessment, and plan of care. Past Medical History Past Medical History: Asthma, Coronary Artery Disease (CAD), Heart Failure, COPD, CVA/TIA, Diabetes Mellitus, Hyperlipidemia, Hypertension, Pneumonia, Rheumatoid Arthritis (RA) Additional Past Medical History / Comment(s): left GREAT TOE WOUND, with current dressing, partial amputation on 06/28/20. hx of hyperbaric chamber 5 days a week, current PICC line left arm Last Myocardial Infarction Date:: 2014 History of Any Multi-Drug Resistant Organisms: None Reported Past Surgical History: Adenoidectomy, Appendectomy, Coronary Bypass/CABG, Heart Catheterization, Tonsillectomy, Tubal Ligation Additional Past Surgical History / Comment(s): Open heart on April 13 2015, cabg X4, bilateral carotid endarterectomies,. Right great toe amputation 2015. stent in right leg above knee, elke cataracts. left toe ambutation, 06/18/20 Past Anesthesia/Blood Transfusion Reactions: Previous Problems w/ Anesthesia Additional Past Anesthesia/Blood Transfusion Reaction / Comment(s): diff breathing afterwards Past Psychological History: No Psychological Hx Reported, Depression Additional Psychological History / Comment(s): current depression r/t passing away a week ago Smoking Status: Former smoker Past Alcohol Use History: None Reported Additional Past Alcohol Use History / Comment(s): STARTED SMOKING AT AGE 17, SM OKED 1 OR MORE PPD, QUIT 1982frompoor in Hospital in October 2013. 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 She is currently living at home with daughter and sister Past Drug Use History: None Reported - Past Family History Father Family Medical History: Coronary Artery Disease (CAD), CVA/TIA, Diabetes Mellitu s Mother Family Medical History: Myocardial Infarction ([place]) Additional Family Medical History / Comment(s): "spot on the lung", from heart attack Medications and Allergies Home Medications Medication Instructions Recorded Confirmed Type Albuterol Sulfate [Proair Hfa] 2 puff INHALATION RT-Q6H PRN 06/16/20 11/01/21 History Montelukast Sodium [Singulair] 10 mg PO HS 07/15/20 11/01/21 History DULoxetine HCL [Cymbalta] 60 mg PO DAILY 08/29/20 11/01/21 History Insulin Glargine,Hum.rec.anlog 8 unit SQ DAILY 05/16/21 11/01/21 History [Lantus Solostar Pen] Furosemide [Lasix] 40 mg PO DAILY 08/08/21 11/01/21 History ALPRAZolam [Xanax] 1 mg PO HS PRN 11/01/21 11/01/21 History Amiodarone [Cordarone] 200 mg PO DAILY 11/01/21 11/01/21 History Apixaban [Eliquis] 2.5 mg PO BID 11/01/21 11/01/21 History Atorvastatin [Lipitor] 80 mg PO DAILY 11/01/21 11/01/21 History Gabapentin [Neurontin] 300 mg PO HS 11/01/21 11/01/21 History HYDROcodone/APAP 5-325MG [[place] 1 tab PO BID PRN 11/01/21 11/01/21 History 5-325] Insulin Aspart [NovoLOG Flexpen] 12 units SQ ACHS 11/01/21 11/01/21 History Lumateperone Tosylate [Caplyta] 42 mg PO DAILY 11/01/21 11/01/21 History Metoprolol Tartrate [Lopressor] 25 mg PO HS 11/01/21 11/01/21 History Spironolactone 100 mg PO DAILY 11/01/21 11/01/21 History amLODIPine [Norvasc] 10 mg PO DAILY 11/01/21 11/01/21 History Allergies Allergy/AdvReac Type Severity Reaction Status Date / Time nickel Allergy Rash/Hives Verified 08/08/21 14:01 levofloxacin [From Levaquin] AdvReac Confusion Verified 08/08/21 14:01 Physical Exam Vitals: Vital Signs Temp Pulse Pulse Resp BP BP Pulse Ox 11/02/21 11:21 97.6 F 84 19 126/54 11/02/21 08:00 96.8 F L 75 16 109/54 98 11/02/21 03:13 98.7 F 76 14 108/53 93 L 11/01/21 23:09 99.6 F 72 16 106/55 92 L 11/01/21 21:00 99.0 F 87 16 104/58 96 11/01/21 15:14 98.0 F 98 16 121/67 96 Intake and Output 11/01/21 11/02/21 11/02/21 22:59 06:59 14:59 Intake Total 750 538 Output Total 650 Balance 100 538 Intake: Intake, IV Titration 550 Amount Sodium Chloride 0.9% 1, 450 000 ml @ 75 mls/hr IV . [id number] [facility] Rx#:[id number] cefTRIAXone 1 gm In 100 Sodium Chloride 0.9% 50 ml @ 100 mls/hr IVPB ONCE STA Rx#:[id number] Oral 200 538 Output: Urine 650 Other: Voiding Method External Catheter External Catheter # Voids 1 # Bowel Movements 1 Weight 65.771 kg Results 11/02/21 08:12 11/02/21 08:12 Cardiac Enzymes 11/01/21 11/01/21 11/01/21 Range/Units 16:31 16:31 18:08 AST 27 (14-36) U/L Troponin I 0.256 H* 0.303 H* (0.000-0.034) ng/mL 11/01/21 11/02/21 Range/Units 21:00 08:12 AST 18 (14-36) U/L Troponin I 0.264 H* (0.000-0.034) ng/mL Coagulation 11/01/21 Range/Units 16:31 PT 11.6 (9.0-12.0) sec APTT 28.0 (22.0-30.0) sec CBC 11/01/21 11/02/21 Range/Units 16:31 08:12 WBC 3.3 L 6.0 (3.8-10.6) k/uL RBC 4.70 3.25 L (3.80-5.40) m/uL Hgb 13.1 D 9.4 L D (11.4-16.0) gm/dL Hct 42.6 29.3 L (34.0-46.0) % Plt Count 184 265 (150-450) k/uL Comprehensive Metabolic Panel 11/01/21 11/02/21 Range/Units 16:31 08:12 Sodium 134 L 137 (137-145) mmol/L Potassium 3.7 4.0 (3.5-5.1) mmol/L Chloride 98 106 (98-107) mmol/L Carbon Dioxide 31 H 23 (22-30) mmol/L BUN 27 H 28 H (7-17) mg/dL Creatinine 1.71 H 1.57 H (0.52-1.04) mg/dL Glucose 125 H 107 H (74-99) mg/dL Calcium 9.3 8.6 (8.4-10.2) mg/dL AST 27 18 (14-36) U/L ALT 8 6 (4-34) U/L Alkaline Phosphatase 110 101 (38-126) U/L Total Protein 7.0 6.3 (6.3-8.2) g/dL Albumin 3.1 L 2.7 L (3.5-5.0) g/dL Current Medications Generic Name Dose Route Start Last Admin Trade Name Freq PRN Reason Stop Dose Admin Hydrocodone Bitart/Acetaminophen 1 each 11/01/21 19:51 Hydrocodone/Apap 5-325mg 1 Each Tab PO BID PRN Pain Albuterol Sulfate 2.5 mg 11/01/21 19:51 Albuterol Nebulized 2.5 Mg/3 Ml INHALATION RT-Q6H PRN Shortness Of Breath Alprazolam 1 mg 11/01/21 19:51 Alprazolam 1 Mg Tab PO HS PRN Anxiety Amiodarone HCl 200 mg 11/02/21 09:00 11/02/21 09:43 Amiodarone 200 Mg Tab PO 200 mg DAILY JAY Administration Amlodipine Besylate 10 mg 11/02/21 09:00 11/02/21 09:43 Amlodipine 10 Mg Tab PO 10 mg DAILY JAY Administration Apixaban 2.5 mg 11/01/21 21:00 11/02/21 09:43 Apixaban 2.5 Mg Tablet PO 2.5 mg BID JAY Administration Protocol Atorvastatin Calcium 40 mg 11/03/21 09:00 Atorvastatin 40 Mg Tab PO DAILY JAY Duloxetine HCl 60 mg 11/02/21 09:00 11/02/21 09:43 Duloxetine Hcl 60 Mg Capsule.Dr PO 60 mg DAILY JAY Administration Gabapentin 300 mg 11/01/21 21:00 11/01/21 20:56 Gabapentin 300 Mg Cap PO 300 mg HS JAY Administration Daptomycin 500 mg/ Sodium 50 mls @ 100 mls/hr 11/02/21 12:00 11/02/21 12:52 Chloride IVPB 100 mls/hr Q24H JAY Administration Protocol Sodium Chloride 1,000 mls @ 50 mls/hr 11/02/21 12:00 11/02/21 12:20 Saline 0.9% IV 50 mls/hr .Q20H JAY Administration Insulin Aspart 0 unit 11/02/21 12:30 11/02/21 12:21 Insulin Aspart (Novolog) 100 Unit/Ml Vial SQ 2 unit ACHS JAY Administration Protocol Insulin Detemir 8 unit 11/02/21 07:00 11/02/21 09:42 Insulin Detemir (Levemir) 100 Unit/Ml Syr SQ 8 unit DAILY@0700 JAY Administration Metoprolol Tartrate 25 mg 11/01/21 21:00 11/01/21 20:56 Metoprolol Tartrate 25 Mg Tab PO 25 mg HS JAY Administration Montelukast Sodium 10 mg 11/01/21 21:00 11/01/21 20:56 Montelukast 10 Mg Tab PO 10 mg HS JAY Administration Naloxone HCl 0.2 mg 11/01/21 17:51 Naloxone 0.4 Mg/Ml 1 Ml Vial IV Q2M PRN Opioid Reversal Non-Formulary Medication 42 mg 11/02/21 09:00 11/02/21 10:18 Lumateperone Tosylate [Caplyta] PO Not Given DAILY JAY Intake and Output 11/01/21 11/02/21 11/02/21 22:59 06:59 14:59 Intake Total 750 538 Output Total 650 Balance 100 538 Intake: Intake, IV Titration 550 Amount Sodium Chloride 0.9% 1, 450 000 ml @ 75 mls/hr IV . [id number] [facility] Rx#:[id number] cefTRIAXone 1 gm In 100 Sodium Chloride 0.9% 50 ml @ 100 mls/hr IVPB ONCE STA Rx#:[id number] Oral 200 538 Output: Urine 650 Other: Voiding Method External Catheter External Catheter # Voids 1 # Bowel Movements 1 Weight 65.771 kg 11/02/21 08:12 11/02/21 08:12
[2021-11-02 16:28] LABS: Glucose,Whole Blood 261 mg/dL (70-110)
[2021-11-02 20:46] LABS: Glucose,Whole Blood 225 mg/dL (70-110)
[2021-11-02] MEDS: GABAPENTIN 300 MG CAP PO SCH (21:03)
[2021-11-02] MEDS: METOPROLOL TARTRATE 25 MG TAB PO SCH (21:03)
[2021-11-02] MEDS: MONTELUKAST 10 MG TAB PO SCH (21:03)
--- NOTE | 2021-11-02 23:04 | P.CONS ---
History of Present Illness - Reason for Consult Consult date: 11/02/21 Osteomyelitis of the foot Requesting physician: Mikel Delong - Chief Complaint Weakness and mental status changes x few days - History of Present Illness Patient is a 71-year-old female who was recently admitted at [facility] with a left diabetic foot infection in this patient who is status post debridement of the left lateral foot foot wound which was extended off the bone culture positive for MRSA patient was discharged on IV vancomycin and oral Flagyl patient was now brought to the [facility] ER yesterday afternoon for evaluation of decreased oral intake lethargy and the patient did have multiple falls patient apparently was unable to ambulate on her own with a walker patient denies having any chest pain no shortness of breath or cough no abdominal pain or any diarrhea on presentation to the hospital the patient was afebrile and no fever had been recorded subsequently patient did have a normal white count initially some leukopenia BUN/creatinine is mildly elevated liver enzymes are normal troponins are mildly elevated patient did have a positive UA urine was positive for opiates urine culture has been obtained patient did have a chest x-ray that was negative for acute cardiopulmonary process x-rays of the left foot soft tissue swelling osteopenia patient was continued on the daptomycin infectious disease was consulted for further management of antibiotic therapy she also received a dose of Rocephin in the ER Review of Systems Positive point has been mentioned in the HPI rest of the systems are negative Past Medical History Past Medical History: Asthma, Coronary Artery Disease (CAD), Heart Failure, COPD, CVA/TIA, Diabetes Mellitus, Hyperlipidemia, Hypertension, Pneumonia, Rheumatoid Arthritis (RA) Additional Past Medical History / Comment(s): left GREAT TOE WOUND, with current dressing, partial amputation on 06/28/20. hx of hyperbaric chamber 5 days a week, current PICC line left arm Last Myocardial Infarction Date:: 2014 History of Any Multi-Drug Resistant Organisms: None Reported Past Surgical History: Adenoidectomy, Appendectomy, Coronary Bypass/CABG, Heart Catheterization, Tonsillectomy, Tubal Ligation Additional Past Surgical History / Comment(s): Open heart on April 13 2015, cabg X4, bilateral carotid endarterectomies,. Right great toe amputation 2014. stent in right leg above knee, elke cataracts. left toe ambutation, 06/18/20 Past Anesthesia/Blood Transfusion Reactions: Previous Problems w/ Anesthesia Additional Past Anesthesia/Blood Transfusion Reaction / Comm: diff breathing afterwards Past Psychological History: No Psychological Hx Reported, Depression Additional Psychological History / Comment(s): current depression r/t passing away a week ago Smoking Status: Former smoker Past Alcohol Use History: None Reported Additional Past Alcohol Use History / Comment(s): STARTED SMOKING AT AGE 17, SMOKED 1 OR MORE PPD, QUIT 1982frompoor in Hospital in October 2013. 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 She is currently living at home with daughter and sister Past Drug Use History: None Reported - Past Family History Father Family Medical History: Coronary Artery Disease (CAD), CVA/TIA, Diabetes Mellitus Mother Family Medical History: Myocardial Infarction ([place]) Additional Family Medical History / Comment(s): "spot on the lung", from heart attack Medications and Allergies Home Medications Medication Instructions Recorded Confirmed Type Albuterol Sulfate [Proair Hfa] 2 puff INHALATION RT-Q6H PRN 06/16/20 11/01/21 History Montelukast Sodium [Singulair] 10 mg PO HS 07/15/20 11/01/21 History DULoxetine HCL [Cymbalta] 60 mg PO DAILY 08/29/20 11/01/21 History Insulin Glargine,Hum.rec.anlog 8 unit SQ DAILY 05/16/21 11/01/21 History [Lantus Solostar Pen] Furosemide [Lasix] 40 mg PO DAILY 08/08/21 11/01/21 History ALPRAZolam [Xanax] 1 mg PO HS PRN 11/01/21 11/01/21 History Amiodarone [Cordarone] 200 mg PO DAILY 11/01/21 11/01/21 History Apixaban [Eliquis] 2.5 mg PO BID 11/01/21 11/01/21 History Atorvastatin [Lipitor] 80 mg PO DAILY 11/01/21 11/01/21 History Gabapentin [Neurontin] 300 mg PO HS 11/01/21 11/01/21 History HYDROcodone/APAP 5-325MG [[place] 1 tab PO BID PRN 11/01/21 11/01/21 History 5-325] Insulin Aspart [NovoLOG Flexpen] 12 units SQ ACHS 11/01/21 11/01/21 History Lumateperone Tosylate [Caplyta] 42 mg PO DAILY 11/01/21 11/01/21 History Metoprolol Tartrate [Lopressor] 25 mg PO HS 11/01/21 11/01/21 History Spironolactone 100 mg PO DAILY 11/01/21 11/01/21 History amLODIPine [Norvasc] 10 mg PO DAILY 11/01/21 11/01/21 History Allergies Allergy/AdvReac Type Severity Reaction Status Date / Time nickel Allergy Rash/Hives Verified 08/08/21 14:01 levofloxacin [From Levaquin] AdvReac Confusion Verified 08/08/21 14:01 Physical Exam Vitals: Vital Signs Temp Pulse Pulse Resp BP BP Pulse Ox 11/02/21 11:21 97.6 F 84 19 126/54 11/02/21 08:00 96.8 F L 75 16 109/54 98 11/02/21 03:13 98.7 F 76 14 108/53 93 L 11/01/21 23:09 99.6 F 72 16 106/55 92 L 11/01/21 21:00 99.0 F 87 16 104/58 96 11/01/21 15:14 98.0 F 98 16 121/67 96 Intake and Output 11/01/21 11/02/21 11/02/21 22:59 06:59 14:59 Intake Total 750 420 Output Total 650 Balance 100 420 Intake: Intake, IV Titration 550 Amount Sodium Chloride 0.9% 1, 450 000 ml @ 75 mls/hr IV . [id number] Rx#:[id number] cefTRIAXone 1 gm In 100 Sodium Chloride 0.9% 50 ml @ 100 mls/hr IVPB ONCE STA Rx#:[id number] Oral 200 420 Output: Urine 650 Other: Voiding Method External Catheter External Catheter # Voids 1 # Bowel Movements 1 Weight 65.771 kg GENERAL DESCRIPTION: Elderly female lying in bed, no distress. No tachypnea or accessory muscle of respiration use. HEENT: Shows Pallor , no scleral icterus. Oral mucous membrane is dry. No pharyngeal erythema or thrush NECK: Trachea central, no thyromegaly. LUNGS: Unlabored breathing. Clear to auscultation anteriorly. No wheeze or crackle. HEART: S1, S2, regular rate and rhythm. No loud murmur ABDOMEN: Soft, no tenderness , guarding or rigidity, no organomegaly EXTREMITIES: Left foot lateral border wound did have a slough tissue some surrounding deep tissue injury no foul-smelling drainage SKIN: No rash, no masses palpable. NEUROLOGICAL: The patient is awake, alert, oriented x3, mood and affect normal. Results CBC & Chem 7: 11/02/21 08:12 11/02/21 08:12 Labs: Abnormal Lab Results - Last 24 Hours (Table) 11/01/21 11/01/21 11/01/21 Range/Units 16:31 16:31 16:31 WBC 3.3 L (3.8-10.6) k/uL RBC (3.80-5.40) m/uL Hgb (11.4-16.0) gm/dL Hct (34.0-46.0) % MCHC 30.7 L (31.0-37.0) g/dL RDW 16.2 H (11.5-15.5) % Sodium 134 L (137-145) mmol/L Carbon Dioxide 31 H (22-30) mmol/L BUN 27 H (7-17) mg/dL Creatinine 1.71 H (0.52-1.04) mg/dL Glucose 125 H (74-99) mg/dL POC Glucose (mg/dL) (70-110) mg/dL Troponin I (0.000-0.034) ng/mL Albumin 3.1 L (3.5-5.0) g/dL Urine Appearance Cloudy H (Clear) Urine Protein 1+ H (Negative) Urine Blood Moderate H (Negative) Urine Nitrite Positive H (Negative) Ur Leukocyte Esterase Large H (Negative) Urine RBC 8 H (0-5) /hpf Urine WBC >182 H (0-5) /hpf Urine WBC Clumps Moderate H (None) /hpf Urine Bacteria Occasional H (None) /hpf Urine Mucus Few H (None) /hpf Urine Opiates Screen Detected H (NotDetected) 11/01/21 11/01/21 11/01/21 Range/Units 16:31 18:08 20:40 WBC (3.8-10.6) k/uL RBC (3.80-5.40) m/uL Hgb (11.4-16.0) gm/dL Hct (34.0-46.0) % MCHC (31.0-37.0) g/dL RDW (11.5-15.5) % Sodium (137-145) mmol/L Carbon Dioxide (22-30) mmol/L BUN (7-17) mg/dL Creatinine (0.52-1.04) mg/dL Glucose (74-99) mg/dL POC Glucose (mg/dL) 197 H (70-110) mg/dL Troponin I 0.256 H* 0.303 H* (0.000-0.034) ng/mL Albumin (3.5-5.0) g/dL Urine Appearance (Clear) Urine Protein (Negative) Urine Blood (Negative) Urine Nitrite (Negative) Ur Leukocyte Esterase (Negative) Urine RBC (0-5) /hpf Urine WBC (0-5) /hpf Urine WBC Clumps (None) /hpf Urine Bacteria (None) /hpf Urine Mucus (None) /hpf Urine Opiates Screen (NotDetected) 11/01/21 11/02/21 11/02/21 Range/Units 21:00 06:10 08:12 WBC (3.8-10.6) k/uL RBC 3.25 L (3.80-5.40) m/uL Hgb 9.4 L D (11.4-16.0) gm/dL Hct 29.3 L (34.0-46.0) % MCHC (31.0-37.0) g/dL RDW 16.2 H (11.5-15.5) % Sodium (137-145) mmol/L Carbon Dioxide (22-30) mmol/L BUN (7-17) mg/dL Creatinine (0.52-1.04) mg/dL Glucose (74-99) mg/dL POC Glucose (mg/dL) 113 H (70-110) mg/dL Troponin I 0.264 H* (0.000-0.034) ng/mL Albumin (3.5-5.0) g/dL Urine Appearance (Clear) Urine Protein (Negative) Urine Blood (Negative) Urine Nitrite (Negative) Ur Leukocyte Esterase (Negative) Urine RBC (0-5) /hpf Urine WBC (0-5) /hpf Urine WBC Clumps (None) /hpf Urine Bacteria (None) /hpf Urine Mucus (None) /hpf Urine Opiates Screen (NotDetected) 11/02/21 11/02/21 Range/Units 08:12 11:48 WBC (3.8-10.6) k/uL RBC (3.80-5.40) m/uL Hgb (11.4-16.0) gm/dL Hct (34.0-46.0) % MCHC (31.0-37.0) g/dL RDW (11.5-15.5) % Sodium (137-145) mmol/L Carbon Dioxide (22-30) mmol/L BUN 28 H (7-17) mg/dL Creatinine 1.57 H (0.52-1.04) mg/dL Glucose 107 H (74-99) mg/dL POC Glucose (mg/dL) 170 H (70-110) mg/dL Troponin I (0.000-0.034) ng/mL Albumin 2.7 L (3.5-5.0) g/dL Urine Appearance (Clear) Urine Protein (Negative) Urine Blood (Negative) Urine Nitrite (Negative) Ur Leukocyte Esterase (Negative) Urine RBC (0-5) /hpf Urine WBC (0-5) /hpf Urine WBC Clumps (None) /hpf Urine Bacteria (None) /hpf Urine Mucus (None) /hpf Urine Opiates Screen (NotDetected) Microbiology - Last 24 Hours (Table) 11/01/21 16:31 Urine Culture - Preliminary Urine,Voided Assessment and Plan (1) Diabetic foot ulcer associated with type 2 diabetes mellitus Current Visit: Yes Status: Acute Code(s): E11.621 - TYPE 2 DIABETES MELLITUS WITH FOOT ULCER SNOMED Code(s): 3343688947565 (2) Urinary tract infection Current Visit: Yes Status: Acute Code(s): N39.0 - URINARY TRACT INFECTION, SITE NOT SPECIFIED SNOMED Code(s): 38822998 Plan: 1patient presented to hospital with weakness lethargy which is likely multifactorial in this patient did have a dehydration plus minus a component of urinary tract infection likely from enteric gram-negative pathogen. 2patient with a left diabetic foot infection with underlying osteomyelitis culture positive for MRSA at [facility]. 3we will start the patient on Rocephin 1 g daily and continue with the daptomycin. 4local wound care to the left foot wound with the Santyl followed by moist dressing change daily. We will follow on clinical condition and cultures to further adjust medication if needed Thank you for this consultation will follow this patient along with you Time with Patient: Greater than 30
[2021-11-03 06:04] LABS: Glucose,Whole Blood 175 mg/dL (70-110)
[2021-11-03] MEDS: INSULIN ASPART (NovoLOG) 100 UNIT/ML VIAL SQ SCH ×4 (06:12→21:06)
[2021-11-03] MEDS: DULoxetine HCL 60 MG CAPSULE.DR PO SCH (08:22)
[2021-11-03] MEDS: ATORVASTATIN 40 MG TAB PO SCH (08:22)
[2021-11-03] MEDS: amLODIPine 10 MG TAB PO SCH (08:22)
[2021-11-03] MEDS: AMIODARONE 200 MG TAB PO SCH (08:22)
[2021-11-03] MEDS: INSULIN DETEMIR (LEVEMIR) 100 UNIT/ML SYR SQ SCH (08:22)
[2021-11-03] MEDS: APIXABAN 2.5 MG TABLET PO SCH ×2 (08:22→21:05)
[2021-11-03] MEDS: SODIUM CHLORIDE 0.9% 1,000 ML IV SCH (08:24)
[2021-11-03] MEDS: NON FORMULARY DRUG (Lumateperone Tosylate [Caplyta] 42 MG Capsule) PO SCH (09:25)
[2021-11-03 09:57] LABS: Glucose,Whole Blood 158 mg/dL (70-110)
[2021-11-03 11:38] LABS: Glucose,Whole Blood 214 mg/dL (70-110)
[2021-11-03] MEDS: DAPTOmycin 500 MG in SODIUM CHLORIDE 0.9% 50 ML IVPB SCH (12:20)
[2021-11-03] MEDS: COLLAGENASE 250 UNIT/GM OINTMENT 30 GM TUBE TOPICAL SCH (12:20)
--- NOTE | 2021-11-03 13:34 | P.PN ---
Subjective Progress Note Date: 11/03/21 H&P Date: 11/02/21 HISTORY OF PRESENT ILLNESS This is a 71-year-old female patient of Dr. Sanderson with past medical history of diabetes mellitus type 2, hypertension, hyperlipidemia, CVA in 2013 with no residuals, coronary artery disease status post 4 vessel CABG, bilateral carotid endarterectomies, mild intermittent asthma, osteomyelitis status post right great toe amputation 2014 and left toe amputation and left big toe amputation as well. Patient was hospitalized recently at [facility] for osteomyelitis and severe cellulitis of the left foot require debridement status post debridement by Dr. Gregory patient was placed on IV antibiotics apparently in the form of daptomycin by Dr. Mccabe. Note the patient's was also recently hospitalized at [facility] and he has subsequently passed last week. Patient apparently came into [facility] in [facility] by EMS due to altered mental status as well as clinical decline since her discharge from [facility]. She has had multiple falls has been lethargic. Patient was found to be afebrile, heart rate 90, blood pressure 121/67, pulse ox 96% on room air. EKG sinus tachycardia. WBC 3.3, hemoglobin 13.1, platelet count 184. Sodium 134, potassium 3.7, chloride 90, CO2 31, BUN 27 creatinine 1.71. Blood sugar 125. INR 1.1. Urinalysis blood moderate, nitrate positive, leukoesterase large, WBC greater than 182, WBC clumps moderate, bacteria occasional. Urine drug screen was positive for opiates. Lactic acid 0.8. Liver function tests were normal. Ammonia level less than 9. Troponin 0.256, 0.303, 0.264. TSH 1.87. Albumin 3.1. Salicylate level less than 1 and acetaminophen level less than 10. Serum alcohol level less than 10. ProBNP 20,500 Chest x-ray reveals no definite acute process. CAT scan of the brain revealed no acute intracranial process. Similar remote temporal lobe injury along with right basal ganglia injury. Left foot x-ray reveals no fracture or malalignment. Patient was provided a half liter of IV fluid, 1 dose of ceftriaxone, admitted to the cardiac stepdown unit and consults with Dr. Gregory and Dr. Mccabe. 11/03: Patient is doing much better today, while more energetic, she was able to ambulate, without any assist devices, not leaning towards the left side as noted by the daughter, urine culture growing 2 gram-negative bacilli, sensitivities currently pending. No fever, however T-max of 99 2, stable vital signs, systolic 1:15, pulse ox 2 L, 96%. Wound is being followed surgically, by Dr. Nikunj Leon is still following her for infection. She is still on IV Rocephin, and daptomycin. Obtain kidney ultrasound, evaluate for nephrolithiasis or infected kidney stones. REVIEW OF SYSTEMS Constitutional: No fever, no chills, no night sweats. No weight change. No weakness, fatigue or lethargy. No daytime sleepiness. EENT: No headache. No blurred vision or double vision, no loss of vision. No loss of Hearing, no ringing in the ears, no dizziness. No nasal drainage or congestion. No epistaxis. No sore throat. Lungs: significant shortness of breath cough wheezes with significant edema. Cardiovascular: positive shortness of breath with PND orthopnea mild palpitation with worsening edema at the time with no chest pain, Abdominal: No abdominal pain. No nausea, vomiting. No diarrhea. No constipation. No bloody or tarry stools.. No loss of appetite. Genitourinary: No dysuria, increased frequency, urgency. No urinary retention. Musculoskeletal: No myalgias. No muscle weakness, no gait dysfunction, no frequent falls. No back pain. No neck pain. Integumentary: Reported wounds to left foot. No rash or pruritus. No unusual bruising. No change in hair or nails. amputation of the left toes one through 3, right great toe amputation, small superficial wound to the second toe right foot. Neurologic: No aphasia. No facial droop. No change in mentation. No head injury. No headache. No paralysis. No paresthesia. Psychiatric: No depression. No anxiety. No mood swings. Endocrine: No abnormal blood sugars. No weight change. No excessive sweating or thirst. No cold intolerance. PHYSICAL EXAMINATION Gen: This is a 71 year-old obese female. She is resting in recliner and appears to be comfortable and in no acute distress. HEENT: Head is atraumatic, normocephalic. Pupils equal, round. Sclerae is a nicteric. NECK: Supple. No JVD. No lymphadenopathy. No thyromegaly. LUNGS: Clear to auscultation. No wheezes or rhonchi. No intercostal retractions. HEART: Regular rate and rhythm. No murmur. ABDOMEN: Soft. Bowel sounds are present. No masses. No tenderness. EXTREMITIES: No pedal edema. No calf tenderness. Right great toe amputation, l right second toe has small abrasion. Left foot has amputation of toes 1-3. There is a large ulcer on the lateral fifth metatarsal 1-1/2 inch by three-aris rter inch stage IV. NEUROLOGICAL: Patient is awake, alert and oriented to person and place. Cranial nerves 2 through 12 are grossly intact. ASSESSMENT AND PLAN Acute metabolic encephalopathy secondary to sepsis and osteomyelitis. Patient admitted to the cardiac stepdown unit, patient will be resumed on daptomycin, consult with Dr. Mccabe and Dr. Gregory. Osteomyelitis the left foot. Patient is status post debridement at [facility] by Dr. Gregory, discharge with home care and IV daptomycin which will be resumed. urinary tract infection. Patient is on ceftriaxone obtain kidney ultrasound. Elevated troponins. Consult with cardiology. Echocardiogram ordered Acute kidney injury and chronic kidney disease stage III. Continue IV hydration but decreased to 50 mL per hour due to history of heart failure. Chronic systolic and diastolic heart failure. Hold Lasix 40 mg daily, hold Aldactone 100 mg daily. COPD without exacerbation. Continue albuterol nebulizer treatment every 6 hours as needed. Continue Singulair 10 mg at bedtime. Paroxysmal atrial fibrillation. Continue eliquis 2.5 mg twice daily, amiodarone 200 mg daily, Lopressor 25 mg at bedtime. Coronary artery disease with history of 4 vessel CABG at [facility] in . History of inferior ST elevated myocardial infarction 08/2020 status post PCI of the SVG to RCA. Diabetes mellitus type 2 insulin requiring. Continue Levemir 8 units daily, NovoLog 12 units before meals and at bedtime will be discontinued and patient placed on NovoLog scale before meals and at bedtime. History of DVT and pulmonary embolism. Continue eliquis 2.5 mg twice daily. History of CVA and mild memory loss. Hypertension. Continue amlodipine 10 mg daily. Hyperlipidemia. Continue atorvastatin decreased to 40 mg daily while on daptomycin . Diabetic neuropathy. Continue gabapentin 3 mg at bedtime. Recurrent depression and generalized anxiety disorder, situational anxiety d isorder with recent loss of her . Continue patient on Cymbalta 60 mg at bedtime, Xanax 1 mg at bedtime. Peripheral vascular disease with previous stenting of the right lower extremity. Consult with Dr. Gregory. GI prophylaxis. Protonix. DVT prophylaxis. Eliquis. CODE STATUS: NO code. Admit patient to the inpatient service for more than 2 night stay. DISCHARGE PLAN TBD. Most likely return home with [facility]. PT consult. Laboratory Results - Last 24 Hours 11/02/21 11/02/21 11/03/21 16:26 20:36 05:57 POC Glucose (mg/dL) 261 H 225 H 175 H POC Glu Oyster Unloader ID Jarett Manjarrez Jeremy Traub, Rainey, Candy 11/03/21 11/03/21 09:56 11:37 POC Glucose (mg/dL) 158 H 214 H POC Glu Oyster Unloader ID April Kyle Amanda Current Medications Hydrocodone Bitart/Acetaminophen (Hydrocodone/Apap 5-325mg 1 Each Tab) 1 each PO BID PRN PRN Reason: Pain Last Admin: 11/03/21 08:22 Dose: 1 each Albuterol Sulfate (Albuterol Nebulized 2.5 Mg/3 Ml) 2.5 mg INHALATION RT-Q6H PRN PRN Reason: Shortness Of Breath Alprazolam (Alprazolam 1 Mg Tab) 1 mg PO HS PRN PRN Reason: Anxiety Amiodarone HCl (Amiodarone 200 Mg Tab) 200 mg PO DAILY [facility] Last Admin: 11/03/21 08:22 Dose: 200 mg Amlodipine Besylate (Amlodipine 10 Mg Tab) 10 mg PO DAILY [facility] Last Admin: 11/03/21 08:22 Dose: 10 mg Apixaban (Apixaban 2.5 Mg Tablet) 2.5 mg PO BID [facility]; Protocol Last Admin: 11/03/21 08:22 Dose: 2.5 mg Atorvastatin Calcium (Atorvastatin 40 Mg Tab) 40 mg PO DAILY JAY Last Admin: 11/03/21 08:22 Dose: 40 mg Collagenase (Collagenase 250 Unit/Gm Ointment 30 Gm Tube) 1 applic TOPICAL DAILY [facility]; Protocol Last Admin: 11/03/21 12:20 Dose: 1 applic Duloxetine HCl (Duloxetine Hcl 60 Mg Capsule.Dr) 60 mg PO DAILY [facility] Last Admin: 11/03/21 08:22 Dose: 60 mg Gabapentin (Gabapentin 300 Mg Cap) 300 mg PO [facility] Last Admin: 11/02/21 21:03 Dose: 300 mg Daptomycin 500 mg/ Sodium (Chloride) 50 mls @ 100 mls/hr IVPB Q24H [facility]; Protocol Last Admin: 11/03/21 12:20 Dose: 100 mls/hr Sodium Chloride (Saline 0.9%) 1,000 mls @ 50 mls/hr IV .Q20H [facility] Last Admin: 11/03/21 08:24 Dose: 50 mls/hr Ceftriaxone Sodium 1 gm/ (Sodium Chloride) 50 mls @ 100 mls/hr IVPB Q24H [facility]; Protocol Last Admin: 11/02/21 23:50 Dose: 100 mls/hr Insulin Aspart (Insulin Aspart (Novolog) 100 Unit/Ml Vial) 0 unit SQ ACHS [facility]; Protocol Last Admin: 11/03/21 12:21 Dose: 3 unit Insulin Detemir (Insulin Detemir (Levemir) 100 Unit/Ml Syr) 8 unit SQ DAILY@0700 [facility] Last Admin: 11/03/21 08:22 Dose: 8 unit Metoprolol Tartrate (Metoprolol Tartrate 25 Mg Tab) 25 mg PO [facility] Last Admin: 11/02/21 21:03 Dose: 25 mg Montelukast Sodium (Montelukast 10 Mg Tab) 10 mg PO [facility] Last Admin: 11/02/21 21:03 Dose: 10 mg Naloxone HCl (Naloxone 0.4 Mg/Ml 1 Ml Vial) 0.2 mg IV Q2M PRN PRN Reason: Opioid Reversal Non-Formulary Medication (Lumateperone Tosylate [Caplyta]) 42 mg PO DAILY [facility] Last Admin: 11/03/21 09:25 Dose: Not Given Objective - Vital Signs Vital signs: Vital Signs Temp 99.2 F 11/03/21 03:39 Pulse 92 11/03/21 03:39 Resp 16 11/03/21 03:39 BP 115/65 11/03/21 03:39 Pulse Ox 96 11/03/21 03:39 FiO2 Intake & Output 11/02/21 11/03/21 11/03/21 18:59 06:59 18:59 Intake Total 538 400 Balance 538 400 Weight 66 kg Intake: Intake, IV Titration 50 Amount cefTRIAXone 1 gm In 50 Sodium Chloride 0.9% 50 ml @ 100 mls/hr IVPB Q24H [facility] Rx#:[id number] Oral 538 350 Other: Voiding Method Bedside Commode # Voids 1 2 # Bowel Movements 1 1 - Labs CBC & Chem 7: 11/02/21 08:12 11/02/21 08:12 Labs: Abnormal Lab Results - Last 24 Hours (Table) 11/02/21 11/02/21 11/03/21 Range/Units 16:26 20:36 05:57 POC Glucose (mg/dL) 261 H 225 H 175 H (70-110) mg/dL 11/03/21 11/03/21 Range/Units 09:56 11:37 POC Glucose (mg/dL) 158 H 214 H (70-110) mg/dL Microbiology - Last 24 Hours (Table) 11/01/21 16:31 Urine Culture - Preliminary Urine,Voided Gram Neg Bacilli Gram Neg Bacilli#2
--- NOTE | 2021-11-03 13:36 | CA ---
Transthoracic Echo Report Name: Tracee Price Age: 71 Gender: F : 1950 Exam Date: 11/02/2021 13:40 Exam Location: [place] [facility] Ht (in): 65 Wt (lb): 145 Ordering Physician: Emily Higginbotham Attending/Referring Phys: [id number], Neftaly Production Leader Katiana Dye, OSMIN Procedure CPT: Indications: LVF Cardiac Hx: Technical Quality: Contrast 1: Total Dose (mL): Contrast 2: Total Dose (mL): MEASUREMENTS (Male / Female) Normal Values FINDINGS Left Ventricle Left ventricular ejection fraction is estimated at 30-35%. Apical Hypokinesis. Right Ventricle Normal right ventricular size and function. Right Atrium Normal right atrial size. Left Atrium Moderate left atrial dilatation. Mitral Valve Mild thickening/calcification of the anterior mitral valve leaflet. Mild-to- moderate mitral regurgitation. Aortic Valve Trileaflet aortic valve. Aortic valve sclerosis. Tricuspid Valve Structurally normal tricuspid valve. Mild tricuspid regurgitation. Pulmonic Valve Structurally normal pulmonic valve. Pericardium Aorta Normal size aortic root and proximal ascending aorta. CONCLUSIONS Moderate to severe LV systolic dysfunction with an ejection fraction of 35%. [place] is hypokinetic. Mitral annular calcification with mild to moderate mitral regurgitation. Left atrial enlargement. Previewed by: Dr. Alex Soto MD (Electronically Signed) Final Date: 03 November 2021 13:35
--- NOTE | 2021-11-03 14:13 | US ---
EXAMINATION TYPE: US kidneys/renal and bladder DATE OF EXAM: 11/03/2021 COMPARISON: NONE CLINICAL HISTORY: UTI, RADHA. UTI EXAM MEASUREMENTS: Right Kidney: 12.9 x 5.6 x 5.8 cm Left Kidney: 12.8 x 5.0 x 5.7 cm Right Kidney: Cyst seen at mid pole measuring 1.2 x 1.1 x 1.0 cm Left Kidney: No hydronephrosis or masses seen Bladder: Possible bladder wall thickening measuring 1.0 cm. Bilateral Jets seen: Yes There is thinning of the cortexes bilaterally. No evidence of hydronephrosis. IMPRESSION: 1. No evidence of obstructive uropathy. 2. Right renal simple cortical cyst. 3. Medical renal disease. 4. Mild bladder wall thickening which could be due to underdistention. Correlate with urinalysis for cystitis.
[2021-11-03 16:46] LABS: Glucose,Whole Blood 249 mg/dL (70-110)
--- NOTE | 2021-11-03 17:15 | P.PN ---
Subjective Progress Note Date: 11/03/21 Principal diagnosis: Left foot osteo-myelitis and a UTI Patient is a 71-year-old female who was recently admitted at [facility] with left diabetic foot infection status post debridement with evidence of Osteomyelitis culture positive for MRSA for the patient was receiving daptomycin subsequently admitted to the hospital with mental status changes did have a component of dehydration and UTI. On today's evaluation dated 11/03/2021, the patient denies having any fever or any chills, the patient is feeling better breathing comfortably denies any chest pain or shortness of breath or cough no abdominal pain no diarrhea pain to the left foot is controlled Objective - Vital Signs Vital signs: Vital Signs Temp 99.0 F 11/03/21 08:05 Pulse 88 11/03/21 12:15 Resp 16 11/03/21 12:15 BP 92/54 11/03/21 12:15 Pulse Ox 91 L 11/03/21 12:15 FiO2 Intake & Output 11/02/21 11/03/21 11/03/21 18:59 06:59 18:59 Intake Total 538 400 Balance 538 400 Weight 66 kg Intake: Intake, IV Titration 50 Amount cefTRIAXone 1 gm In 50 Sodium Chloride 0.9% 50 ml @ 100 mls/hr IVPB Q24H [facility] Rx#:[id number] Oral 538 350 Other: Voiding Method Bedside Commode Bedside Commode # Voids 1 2 1 # Bowel Movements 1 1 - Exam GENERAL DESCRIPTION: An elderly female lying in bed in no distress RESPIRATORY SYSTEM: Unlabored breathing , decreased breath sounds at bases HEART: S1 S2 regular rate and rhythm , ABDOMEN: Soft , no tenderness EXTREMITIES: Left foot is currently dressed no drainage on the dressing - Labs CBC & Chem 7: 11/02/21 08:12 11/02/21 08:12 Labs: Abnormal Lab Results - Last 24 Hours (Table) 11/02/21 11/03/21 11/03/21 Range/Units 20:36 05:57 09:56 POC Glucose (mg/dL) 225 H 175 H 158 H (70-110) mg/dL 11/03/21 11/03/21 Range/Units 11:37 16:45 POC Glucose (mg/dL) 214 H 249 H (70-110) mg/dL Microbiology - Last 24 Hours (Table) 11/01/21 16:31 Urine Culture - Preliminary Urine,Voided Gram Neg Bacilli Gram Neg Bacilli#2 Assessment and Plan (1) Diabetic foot ulcer associated with type 2 diabetes mellitus Current Visit: Yes Status: Acute Code(s): E11.621 - TYPE 2 DIABETES MELLITUS WITH FOOT ULCER SNOMED Code(s): 6824192718795 (2) Urinary tract infection Current Visit: Yes Status: Acute Code(s): N39.0 - URINARY TRACT INFECTION, SITE NOT SPECIFIED SNOMED Code(s): 28545288 Plan: 1patient presented to hospital with weakness lethargy which is likely multifactorial in this patient did have a dehydration plus minus a component of urinary tract infection likely from enteric gram-negative pathogen. 2patient with a left diabetic foot infection with underlying osteomyelitis culture positive for MRSA at [facility]. 3local wound care to the left foot wound with the Santyl followed by moist dr essing change daily. 4patient continue with daptomycin for her left diabetic foot infections/Osteom yelitis 5the patient urine culture were is currently showing gram-negative patient to continue with Rocephin in view of clinical response while waiting for the cultures to finalize Time with Patient: Less than 30
--- NOTE | 2021-11-03 17:24 | PN ---
PROGRESS NOTE FOLLOW-UP NOTE: Tracee is a 71-year-old lady admitted to hospital with confusion. She is much better now. Denies any symptoms. She was evaluated by my associate Dr. Lopez yesterday. She has cardiomyopathy with severe LV dysfunction, was advised to undergo AICD by me, and she was going to think over this and make a decision. Patient has sepsis with osteomyelitis of the left foot, for which she underwent recent debridement. She has mild troponin elevation on this admission, probably related to the acute infectious process. On exam, heart rate is 90 beats per minute. Blood pressure is 115/65, respiratory rate 18. Chest exam reveals good air entry bilaterally. Heart exam reveals first and second heart sounds and a systolic murmur at the apex. Abdomen is soft. Examination of extremities reveals mild edema. ASSESSMENT: 1. Mild troponin elevation, probably related to sepsis. 2. Cardiomyopathy with severe LV dysfunction. 3. Confusion. 4. History of atrial fibrillation. PLAN: Patient will continue current medications, including Eliquis, Cordarone, Lipitor, Norvasc, insulin and Lopressor along with the antibiotics. MMODL / IJN: [id number] /
[2021-11-03] MEDS ORDERED: ALPRAZolam 0.5 MG TAB PO PRN (17:49)
[2021-11-03] MEDS: ACETAMINOPHEN TAB 325 MG TAB PO PRN (19:56)
[2021-11-03 20:30] LABS: Glucose,Whole Blood 191 mg/dL (70-110)
[2021-11-03] MEDS: ALBUTEROL NEBULIZED 2.5 MG/3 ML INHALATION PRN (21:02)
[2021-11-03] MEDS: GABAPENTIN 300 MG CAP PO SCH (21:05)
[2021-11-03] MEDS: METOPROLOL TARTRATE 25 MG TAB PO SCH (21:05)
[2021-11-03] MEDS: MONTELUKAST 10 MG TAB PO SCH (21:05)
[2021-11-04] MEDS: ACETAMINOPHEN TAB 325 MG TAB PO PRN ×2 (03:11→09:57)
[2021-11-04] MEDS: SODIUM CHLORIDE 0.9% 1,000 ML IV SCH ×2 (05:16→23:32)
[2021-11-04 06:35] LABS: Glucose,Whole Blood 164 mg/dL (70-110)
[2021-11-04] MEDS: INSULIN ASPART (NovoLOG) 100 UNIT/ML VIAL SQ SCH ×4 (06:35→21:06)
[2021-11-04] MEDS: INSULIN DETEMIR (LEVEMIR) 100 UNIT/ML SYR SQ SCH (06:46)
[2021-11-04 08:22] LABS: Anisocytosis Slight; Basophils # (A) 0.1 k/uL (0-0.2); Basophils % (A) 1 %; Eosinophils # (A) 0.1 k/uL (0-0.7); Eosinophils % (A) 1 %; HCT 23.7 % (34.0-46.0); Hypochromasia Marked; Lymphocytes # (A) 2.1 k/uL (1.0-4.8); Lymphocytes % (A) 27 %; MCH 29.2 pg (25.0-35.0); MCHC 31.2 g/dL (31.0-37.0); MCV 93.6 fL (80.0-100.0); Mean Platelet Volume 8.1; Monocytes # (A) 0.5 k/uL (0-1.0); Monocytes % (A) 7 %; Neutrophils # (A) 4.9 k/uL (1.3-7.7); Neutrophils % (A) 62 %; Platelet Count 266 k/uL (150-450); RBC 2.54 m/uL (3.80-5.40); RDW 16.2 % (11.5-15.5); WBC 7.8 k/uL (3.8-10.6)
[2021-11-04 08:34] LABS: HGB 7.4 gm/dL (11.4-16.0)
[2021-11-04] MEDS: NON FORMULARY DRUG (Lumateperone Tosylate [Caplyta] 42 MG Capsule) PO SCH (09:48)
[2021-11-04] MEDS: APIXABAN 2.5 MG TABLET PO SCH ×2 (09:57→21:06)
[2021-11-04] MEDS: ATORVASTATIN 40 MG TAB PO SCH (09:57)
[2021-11-04] MEDS: DULoxetine HCL 60 MG CAPSULE.DR PO SCH (09:57)
[2021-11-04] MEDS: amLODIPine 10 MG TAB PO SCH (09:57)
[2021-11-04] MEDS: AMIODARONE 200 MG TAB PO SCH (09:57)
[2021-11-04] MEDS: COLLAGENASE 250 UNIT/GM OINTMENT 30 GM TUBE TOPICAL SCH (09:59)
[2021-11-04 11:12] LABS: % Iron Saturation 3.97 (12.00-45.00)
[2021-11-04 11:53] LABS: Glucose,Whole Blood 208 mg/dL (70-110)
[2021-11-04] MEDS: DAPTOmycin 500 MG in SODIUM CHLORIDE 0.9% 50 ML IVPB SCH (13:08)
--- NOTE | 2021-11-04 15:03 | CT ---
EXAMINATION TYPE: CT brain wo con CT DLP: 1019.4 mGycm, Automated exposure control for dose reduction was used. DATE OF EXAM: 11/04/2021 2:53 PM COMPARISON: CT brain C-spine 06/05/2019 CLINICAL INDICATION:Female, 71 years old with history of mental status change anemia eliquis, UTI TECHNIQUE: Brain: Multiple axial CT images of the brain were obtained without IV contrast. Coronal sagittal refo rmats reviewed. FINDINGS: Brain: Extra-axial spaces: No abnormal extra-axial fluid collections. Ventricular system: Within normal limits Cerebral parenchyma: No acute intraparenchymal hemorrhage or mass effect. Cerebral cortical atrophy. Redemonstration of encephalomalacia within the posterior right temporal lobe and occipital lobe. Jose te lacunar injury to the right basal ganglia. The forte-white junction is well differentiated. Scatter ed hypoattenuating areas are seen within the white matter. Cerebellum: Unremarkable. Mass effect: No evidence of midline shift. Intracranial vasculature: Atherosclerotic calcifications of the intracranial vessels. Soft tissues: Normal. Calvarium/osseous structures: No depressed skull fracture. Paranasal sinuses and mastoid air cells: Mild scattered paranasal sinus disease. Visualized orbits: Bilateral aphakia IMPRESSION: * No acute intracranial process. No significant change from prior examination. * Remote injury to right posterior temporal and occipital lobe. * Nonspecific white matter changes, likely secondary to chronic small vessel ischemic disease.
--- NOTE | 2021-11-04 15:06 | P.PN ---
Subjective Progress Note Date: 11/04/21 H&P Date: 11/02/21 HISTORY OF PRESENT ILLNESS This is a 71-year-old female patient of Dr. Sanderson with past medical history of diabetes mellitus type 2, hypertension, hyperlipidemia, CVA in 2013 with no residuals, coronary artery disease status post 4 vessel CABG, bilateral carotid endarterectomies, mild intermittent asthma, osteomyelitis status post right great toe amputation 2014 and left toe amputation and left big toe amputation as well. Patient was hospitalized recently at [facility] for osteomyelitis and severe cellulitis of the left foot require debridement status post debridement by Dr. Gregory patient was placed on IV antibiotics apparently in the form of daptomycin by Dr. Mccabe. Note the patient's was also recently hospitalized at [facility] and he has subsequently passed last week. Patient apparently came into [facility] in [facility] by EMS due to altered mental status as well as clinical decline since her discharge from [facility]. She has had multiple falls has been lethargic. Patient was found to be afebrile, heart rate 90, blood pressure 121/67, pulse ox 96% on room air. EKG sinus tachycardia. WBC 3.3, hemoglobin 13.1, platelet count 184. Sodium 134, potassium 3.7, chloride 90, CO2 31, BUN 27 creatinine 1.71. Blood sugar 125. INR 1.1. Urinalysis blood moderate, nitrate positive, leukoesterase large, WBC greater than 182, WBC clumps moderate, bacteria occasional. Urine drug screen was positive for opiates. Lactic acid 0.8. Liver function tests were normal. Ammonia level less than 9. Troponin 0.256, 0.303, 0.264. TSH 1.87. Albumin 3.1. Salicylate level less than 1 and acetaminophen level less than 10. Serum alcohol level less than 10. ProBNP 20,500 Chest x-ray reveals no definite acute process. CAT scan of the brain revealed no acute intracranial process. Similar remote temporal lobe injury along with right basal ganglia injury. Left foot x-ray reveals no fracture or malalignment. Patient was provided a half liter of IV fluid, 1 dose of ceftriaxone, admitted to the cardiac stepdown unit and consults with Dr. Gregory and Dr. Mccabe. 11/03: Patient is doing much better today, while more energetic, she was able to ambulate, without any assist devices, not leaning towards the left side as noted by the daughter, urine culture growing 2 gram-negative bacilli, sensitivities currently pending. No fever, however T-max of 99 2, stable vital signs, systolic 1:15, pulse ox 2 L, 96%. Wound is being followed surgically, by Dr. Gregory, Dr. Calvin is still following her for infection. She is still on IV Rocephin, and daptomycin. Obtain kidney ultrasound, evaluate for nephrolithiasis or infected kidney stones. 11/04, patient was seen a bit drowsy today, patient did not sleep well last night, however they've given her her home dose Xanax 1 mg later at night, as the patient is not sleeping, this is her normal 1 mg home dose, the patient has still to process the of the who less than 2 weeks ago, we have offered her the Xanax 0.5 3 times a day when necessary, however this is not taken. Patient was seen drowsy today, answers to questions, however she would drift off back to sleep. Hemoglobin also was dropping significantly, from an entry hemoglobin 13, to current hemoglobin of 7.3. No GI losses are noted, patient does not have any headache, or in the process of obtaining Hemoccult stools, CAT scan of the brain without contrast, patient might need BiPAP if not any better, she might need blood gases. Blood sugars and blood pressures are stable, patient had a T-max of 101 yesterday, renal ultrasound failed to reveal any stone, no hydronephrosis, hold discharge today secondary to somnolence, and hemoglobin drop and the fever blood cultures has been sent to 92% on 5 L nasal cannula, patient's on IV Rocephin for UTI, and daptomycin, for osteomyelitis left foot urine culture, growing Klebsiella pneumonia resistant to ampicillin, , Proteus mirabilis, resistant to nitrofurantoin and tetracycline. We've held gabapentin, and Xanax home dose held, and [place] was held, secondary to hypersomnolence REVIEW OF SYSTEMS Constitutional: No fever, no chills, no night sweats. No weight change. No weakness, fatigue or lethargy. No daytime sleepiness. EENT: No headache. No blurred vision or double vision, no loss of vision. No loss of Hearing, no ringing in the ears, no dizziness. No nasal drainage or congestion. No epistaxis. No sore throat. Lungs: significant shortness of breath cough wheezes with significant edema. Cardiovascular: positive shortness of breath with PND orthopnea mild palpitation with worsening edema at the time with no chest pain, Abdominal: No abdominal pain. No nausea, vomiting. No diarrhea. No constipation. No bloody or tarry stools.. No loss of appetite. Genitourinary: No dysuria, increased frequency, urgency. No urinary retention. Musculoskeletal: No myalgias. No muscle weakness, no gait dysfunction, no frequent falls. No back pain. No neck pain. Integumentary: Reported wounds to left foot. No rash or pruritus. No unusual bruising. No change in hair or nails. amputation of the left toes one through 3, right great toe amputation, small superficial wound to the second toe right foot. Neurologic: No aphasia. No facial droop. No change in mentation. No head injury. No headache. No paralysis. No paresthesia. Psychiatric: No depression. No anxiety. No mood swings. Endocrine: No abnormal blood sugars. No weight change. No excessive sweating or thirst. No cold intolerance. PHYSICAL EXAMINATION Gen: This is a 71 year-old obese female. She is resting in recliner and appears to be comfortable and in no acute distress. HEENT: Head is atraumatic, normocephalic. Pupils equal, round. Sclerae is anicteric. NECK: Supple. No JVD. No lymphadenopathy. No thyromegaly. LUNGS: Clear to auscultation. No wheezes or rhonchi. No intercostal retractions. HEART: Regular rate and rhythm. No murmur. ABDOMEN: Soft. Bowel sounds are present. No masses. No tenderness. EXTREMITIES: No pedal edema. No calf tenderness. Right great toe amputation, l right second toe has small abrasion. Left foot has amputation of toes 1-3. There is a large ulcer on the lateral fifth metatarsal 1-1/2 inch by three- quarter inch stage IV. NEUROLOGICAL: Patient is awake, alert and oriented to person and place. Cranial nerves 2 through 12 are grossly intact. ASSESSMENT AND PLAN Acute metabolic encephalopathy secondary to sepsis and osteomyelitis. Patient admitted to the cardiac stepdown unit, patient will be resumed on daptomycin, consult with Dr. Mccabe and Dr. Gregory. Osteomyelitis the left foot. Patient is status post debridement at [facility] by Dr. Gregory, discharge with home care and IV daptomycin which will be resumed. urinary tract infection. Patient is on ceftriaxone obtain kidney ultrasound. Elevated troponins. Consult with cardiology. Echocardiogram ordered Acute kidney injury and chronic kidney disease stage III. Continue IV hydration but decreased to 50 mL per hour due to history of heart failure. Chronic systolic and diastolic heart failure. Hold Lasix 40 mg daily, hold Aldactone 100 mg daily. COPD without exacerbation. Continue albuterol nebulizer treatment every 6 hours as needed. Continue Singulair 10 mg at bedtime. Paroxysmal atrial fibrillation. Continue eliquis 2.5 mg twice daily, amiodarone 200 mg daily, Lopressor 25 mg at bedtime. Coronary artery disease with history of 4 vessel CABG at [facility] in 2014. History of inferior ST elevated myocardial infarction 08/2020 status post PCI of the SVG to RCA. Diabetes mellitus type 2 insulin requiring. Continue Levemir 8 units daily, NovoLog 12 units before meals and at bedtime will be discontinued and patient placed on NovoLog scale before meals and at bedtime. History of DVT and pulmonary embolism. Continue eliquis 2.5 mg twice daily. History of CVA and mild memory loss. Hypertension. Continue amlodipine 10 mg daily. Hyperlipidemia. Continue atorvastatin decreased to 40 mg daily while on daptomycin . Diabetic neuropathy. Continue gabapentin 3 mg at bedtime. Recurrent depression and generalized anxiety disorder, situational anxiety disorder with recent loss of her . Continue patient on Cymbalta 60 mg at bedtime, Xanax 1 mg at bedtime. Peripheral vascular disease with previous stenting of the right lower extremity. Consult with Dr. Gregory. GI prophylaxis. Protonix. DVT prophylaxis. Eliquis. CODE STATUS: NO code. Admit patient to the inpatient service for more than 2 night stay. DISCHARGE PLAN TBD. Most likely return home with [facility] care. PT consult. Current Medications Acetaminophen (Acetaminophen Tab 325 Mg Tab) 650 mg PO Q6HR PRN PRN Reason: Fever and/ or Pain Last Admin: 11/04/21 09:57 Dose: 650 mg Albuterol Sulfate (Albuterol Nebulized 2.5 Mg/3 Ml) 2.5 mg INHALATION RT-Q6H PRN PRN Reason: Shortness Of Breath Last Admin: 11/03/21 21:02 Dose: 2.5 mg Amiodarone HCl (Amiodarone 200 Mg Tab) 200 mg PO DAILY [facility] Last Admin: 11/04/21 09:57 Dose: 200 mg Amlodipine Besylate (Amlodipine 10 Mg Tab) 10 mg PO DAILY [facility] Last Admin: 11/04/21 09:57 Dose: 10 mg Apixaban (Apixaban 2.5 Mg Tablet) 2.5 mg PO BID [facility]; Protocol Last Admin: 11/04/21 09:57 Dose: 2.5 mg Atorvastatin Calcium (Atorvastatin 40 Mg Tab) 40 mg PO DAILY [facility] Last Admin: 11/04/21 09:57 Dose: 40 mg Collagenase (Collagenase 250 Unit/Gm Ointment 30 Gm Tube) 1 applic TOPICAL DAILY [facility]; Protocol Last Admin: 11/04/21 09:59 Dose: 1 applic Duloxetine HCl (Duloxetine Hcl 60 Mg Capsule.Dr) 60 mg PO DAILY [facility] Last Admin: 11/04/21 09:57 Dose: 60 mg Daptomycin 500 mg/ Sodium (Chloride) 50 mls @ 100 mls/hr IVPB Q24H [facility]; Protocol Last Admin: 11/04/21 13:08 Dose: 100 mls/hr Sodium Chloride (Saline 0.9%) 1,000 mls @ 50 mls/hr IV .Q20H [facility] Last Admin: 11/04/21 05:16 Dose: Not Given Ceftriaxone Sodium 1 gm/ (Sodium Chloride) 50 mls @ 100 mls/hr IVPB Q24H [facility]; Protocol Last Admin: 11/03/21 23:17 Dose: 100 mls/hr Ferric Sodium Gluconate 125 mg (/ Sodium Chloride) 110 mls @ 100 mls/hr IVPB DAILY [facility] Stop: 11/05/21 10:05 Insulin Aspart (Insulin Aspart (Novolog) 100 Unit/Ml Vial) 0 unit SQ ACHS [facility]; Protocol Last Admin: 11/04/21 13:08 Dose: 3 unit Insulin Detemir (Insulin Detemir (Levemir) 100 Unit/Ml Syr) 8 unit SQ DAILY@0700 [facility] Last Admin: 11/04/21 06:46 Dose: 8 unit Melatonin (Melatonin 3 Mg Tablet) 6 mg PO HS [facility] Metoprolol Tartrate (Metoprolol Tartrate 25 Mg Tab) 25 mg PO HS [facility] Last Admin: 11/03/21 21:05 Dose: 25 mg Montelukast Sodium (Montelukast 10 Mg Tab) 10 mg PO [facility] Last Admin: 11/03/21 21:05 Dose: 10 mg Naloxone HCl (Naloxone 0.4 Mg/Ml 1 Ml Vial) 0.2 mg IV Q2M PRN PRN Reason: Opioid Reversal Non-Formulary Medication (Lumateperone Tosylate [Caplyta]) 42 mg PO DAILY [facility] Last Admin: 11/04/21 09:48 Dose: Not Given Vital Signs - 24 hr 11/03/21 11/03/21 11/03/21 16:00 18:22 19:48 Temperature 98.7 F 100.5 F H 103.1 F H Pulse Rate Pulse Rate [ 84 122 H Pulse Oximetery ] Respiratory 18 22 Rate Blood Pressure 105/55 119/65 [Right Arm] O2 Sat by Pulse 96 Oximetry 11/03/21 11/03/21 11/03/21 21:02 21:15 22:02 Temperature 99.2 F Pulse Rate 117 H 118 H Pulse Rate [ Pulse Oximetery ] Respiratory Rate Blood Pressure [Right Arm] O2 Sat by Pulse Oximetry 11/03/21 11/04/21 11/04/21 23:04 02:00 03:08 Temperature 100.9 F H 99.3 F 101.8 F H Pulse Rate Pulse Rate [ 89 91 Pulse Oximetery ] Respiratory 20 16 Rate Blood Pressure 101/52 121/61 [Right Arm] O2 Sat by Pulse 92 L 92 L Oximetry 11/04/21 03:55 Temperature 99.8 F H Pulse Rate Pulse Rate [ Pulse Oximetery ] Respiratory Rate Blood Pressure [Right Arm] O2 Sat by Pulse Oximetry Laboratory Results - Last 24 Hours 11/03/21 11/03/21 11/04/21 16:45 20:20 06:34 WBC RBC Hgb Hct MCV MCH MCHC RDW Plt Count MPV Neutrophils % Lymphocytes % Monocytes % Eosinophils % Basophils % Neutrophils # Lymphocytes # Monocytes # Eosinophils # Basophils # Hypochromasia Anisocytosis POC Glucose (mg/dL) 249 H 191 H 164 H POC Glu [employer]stream [employer] ID Saroj, April Mata, Cosmo Lane, Germaine Iron TIBC % Saturation Transferrin 11/04/21 11/04/21 11/04/21 06:55 06:55 11:42 WBC 7.8 RBC 2.54 L Hgb 7.4 L D Hct 23.7 L MCV 93.6 MCH 29.2 MCHC 31.2 RDW 16.2 H Plt Count 266 MPV 8.1 Neutrophils % 62 Lymphocytes % 27 Monocytes % 7 Eosinophils % 1 Basophils % 1 Neutrophils # 4.9 Lymphocytes # 2.1 Monocytes # 0.5 Eosinophils # 0.1 Basophils # 0.1 Hypochromasia Marked Anisocytosis Slight POC Glucose (mg/dL) 208 H POC Glu Upstream [employer]uring Technician ID Rasheeda Batista Iron 9 L TIBC 227 L % Saturation 3.97 L Transferrin 162.0 L Objective - Vital Signs Vital signs: Vital Signs Temp 99.8 F H 11/04/21 03:55 Pulse 91 11/04/21 03:08 Resp 16 11/04/21 03:08 BP 121/61 11/04/21 03:08 Pulse Ox 92 L 11/04/21 03:08 FiO2 Intake & Output 11/03/21 11/04/21 11/04/21 18:59 06:59 18:59 Intake Total 150 Balance 150 Intake: Oral 150 Other: Voiding Method Bedside Commode External Catheter # Voids 1 1 # Bowel Movements 0 - Labs CBC & Chem 7: 11/04/21 06:55 11/02/21 08:12 Labs: Abnormal Lab Results - Last 24 Hours (Table) 11/03/21 11/03/21 11/04/21 Range/Units 16:45 20:20 06:34 RBC (3.80-5.40) m/uL Hgb (11.4-16.0) gm/dL Hct (34.0-46.0) % RDW (11.5-15.5) % POC Glucose (mg/dL) 249 H 191 H 164 H (70-110) mg/dL Iron (50-170) ug/dL TIBC (228-460) ug/dL % Saturation (12.00-45.00) Transferrin (204.0-354.0) mg/dL 11/04/21 11/04/21 11/04/21 Range/Units 06:55 06:55 11:42 RBC 2.54 L (3.80-5.40) m/uL Hgb 7.4 L D (11.4-16.0) gm/dL Hct 23.7 L (34.0-46.0) % RDW 16.2 H (11.5-15.5) % POC Glucose (mg/dL) 208 H (70-110) mg/dL Iron 9 L (50-170) ug/dL TIBC 227 L (228-460) ug/dL % Saturation 3.97 L (12.00-45.00) Transferrin 162.0 L (204.0-354.0) mg/dL Microbiology - Last 24 Hours (Table) 11/01/21 16:31 Urine Culture - Final Urine,Voided Klebsiella pneumoniae Proteus mirabilis
[2021-11-04 15:49] LABS: Basophils % (A) 1 %; Eosinophils # (A) 0.1 k/uL (0-0.7); Eosinophils % (A) 1 %; HCT 24.3 % (34.0-46.0); HGB 7.5 gm/dL (11.4-16.0); Hypochromasia Marked; Lymphocytes # (A) 1.6 k/uL (1.0-4.8); Lymphocytes % (A) 25 %; MCH 28.9 pg (25.0-35.0); MCV 93.1 fL (80.0-100.0); Mean Platelet Volume 8.4; Monocytes # (A) 0.6 k/uL (0-1.0); Monocytes % (A) 9 %; Neutrophils % (A) 64 %; Platelet Count 237 k/uL (150-450); WBC 6.3 k/uL (3.8-10.6)
--- NOTE | 2021-11-04 16:30 | PN ---
PROGRESS NOTE 71-year-old lady is admitted to hospital who has history of atrial fibrillation, cardiomyopathy with severe LV systolic dysfunction and mild troponin elevation. She has peripheral vascular disease and has cellulitis and had undergone amputation of the right foot toes. She was doing well yesterday. This morning she appears confused and had fever. She underwent blood cultures. On exam T-max is 101.8, blood pressure is 120/60, respiratory rate 18. There is no jugular venous distention. Carotid upstroke is normal. There is no bruit. Chest exam reveals good air entry bilaterally. Heart exam reveals first and second heart sounds. No gallop. Has a systolic murmur at the left lower sternal border. Abdomen is soft. Exam of extremities did not reveal any edema. Peripheral pulses are palpable. LAB: Show a hemoglobin of 7.4, white cell count is 7.8, platelet count is 266. ASSESSMENT AND PLAN: 1. Febrile illness. Blood cultures have been done. Patient is on antibiotics. Infectious Disease is on the case. 2. Elevated troponin of no clear clinical significance. 3. History of atrial fibrillation. 4. History of cardiomyopathy. PLAN: No new interventions from cardiac standpoint. I agree with the current management plans. MMODL / IJN: [id number] /
[2021-11-04 16:41] LABS: Glucose,Whole Blood 212 mg/dL (70-110)
--- NOTE | 2021-11-04 17:16 | P.PN ---
Subjective Progress Note Date: 11/04/21 Principal diagnosis: Left foot osteo-myelitis and a UTI Patient is a 71-year-old female who was recently admitted at [facility] with left diabetic foot infection status post debridement with evidence of Osteomyelitis culture positive for MRSA for the patient was receiving daptomycin subsequently admitted to the hospital with mental status changes did have a component of dehydration and UTI. On today's evaluation dated 11/04/2021, the patient did have a fever of 101.8F around 3 this a.m., the patient is afebrile since then patient is feeling better she is breathing comfortably on 3 L nasal cannula, the patient denies having any chest pain shortness of breath or cough no abdominal pain or diarrhea Objective - Vital Signs Vital signs: Vital Signs Temp 98.5 F 11/04/21 12:15 Pulse 84 11/04/21 12:15 Resp 18 11/04/21 12:15 BP 127/62 11/04/21 12:15 Pulse Ox 96 11/04/21 12:15 FiO2 Intake & Output 11/03/21 11/04/21 11/04/21 18:59 06:59 18:59 Intake Total 150 Output Total 200 Balance 150 -200 Intake: Oral 150 Output: Urine 200 Other: Voiding Method Bedside Commode External Catheter External Catheter # Voids 1 1 1 # Bowel Movements 0 - Exam GENERAL DESCRIPTION: An elderly female lying in bed in no distress RESPIRATORY SYSTEM: Unlabored breathing , decreased breath sounds at bases HEART: S1 S2 regular rate and rhythm , ABDOMEN: Soft , no tenderness EXTREMITIES: Left foot is currently dressed no drainage on the dressing - Labs CBC & Chem 7: 11/04/21 14:36 11/02/21 08:12 Labs: Abnormal Lab Results - Last 24 Hours (Table) 11/03/21 11/04/21 11/04/21 Range/Units 20:20 06:34 06:55 RBC 2.54 L (3.80-5.40) m/uL Hgb 7.4 L D (11.4-16.0) gm/dL Hct 23.7 L (34.0-46.0) % RDW 16.2 H (11.5-15.5) % POC Glucose (mg/dL) 191 H 164 H (70-110) mg/dL Iron (50-170) ug/dL TIBC (228-460) ug/dL % Saturation (12.00-45.00) Transferrin (204.0-354.0) mg/dL 11/04/21 11/04/21 11/04/21 Range/Units 06:55 11:42 14:36 RBC 2.60 L (3.80-5.40) m/uL Hgb 7.5 L (11.4-16.0) gm/dL Hct 24.3 L (34.0-46.0) % RDW 16.0 H (11.5-15.5) % POC Glucose (mg/dL) 208 H (70-110) mg/dL Iron 9 L (50-170) ug/dL TIBC 227 L (228-460) ug/dL % Saturation 3.97 L (12.00-45.00) Transferrin 162.0 L (204.0-354.0) mg/dL 11/04/21 Range/Units 16:40 RBC (3.80-5.40) m/uL Hgb (11.4-16.0) gm/dL Hct (34.0-46.0) % RDW (11.5-15.5) % POC Glucose (mg/dL) 212 H (70-110) mg/dL Iron (50-170) ug/dL TIBC (228-460) ug/dL % Saturation (12.00-45.00) Transferrin (204.0-354.0) mg/dL Microbiology - Last 24 Hours (Table) 11/01/21 16:31 Urine Culture - Final Urine,Voided Klebsiella pneumoniae Proteus mirabilis Assessment and Plan (1) Diabetic foot ulcer associated with type 2 diabetes mellitus Current Visit: Yes Status: Acute Code(s): E11.621 - TYPE 2 DIABETES MELLITUS WITH FOOT ULCER SNOMED Code(s): 0586322231335 (2) Urinary tract infection Current Visit: Yes Status: Acute Code(s): N39.0 - URINARY TRACT INFECTION, SITE NOT SPECIFIED SNOMED Code(s): 72591668 Plan: 1patient presented to hospital with weakness lethargy which is likely multifactorial in this patient did have a dehydration plus minus a component of urinary tract infection likely from enteric gram-negative pathogen. 2patient with a left diabetic foot infection with underlying osteomyelitis culture positive for MRSA at [facility]. 3local wound care to the left foot wound with the Santyl followed by moist dressing change daily. 4patient continue with daptomycin for her left diabetic foot infections/Osteomyelitis 5the patient urine culture have been finalized with Klebsiella and Proteus for which the patient is covered with Rocephin 1 g daily to continue ultrasound was negative for any structural abnormality Time with Patient: Less than 30
[2021-11-04] MEDS: SODIUM FERRIC GLUCONAT-SUCROSE 125 MG in SODIUM CHLORIDE 0.9% 100 ML IVPB SCH (17:25)
[2021-11-04 20:18] LABS: Glucose,Whole Blood 208 mg/dL (70-110)
[2021-11-04] MEDS: MONTELUKAST 10 MG TAB PO SCH (21:06)
[2021-11-04] MEDS: MELATONIN 3 MG TABLET PO SCH (21:06)
[2021-11-04] MEDS: METOPROLOL TARTRATE 25 MG TAB PO SCH (21:14)
[2021-11-05 06:16] LABS: Glucose,Whole Blood 149 mg/dL (70-110)
[2021-11-05] MEDS: INSULIN ASPART (NovoLOG) 100 UNIT/ML VIAL SQ SCH ×4 (06:37→21:17)
[2021-11-05] MEDS: INSULIN DETEMIR (LEVEMIR) 100 UNIT/ML SYR SQ SCH (06:37)
[2021-11-05 07:45] LABS: Basophils % (A) 0 %; Eosinophils % (A) 0 %; HCT 24.8 % (34.0-46.0); HGB 7.6 gm/dL (11.4-16.0); Hypochromasia Marked; Lymphocytes # (A) 1.8 k/uL (1.0-4.8); Lymphocytes % (A) 24 %; MCH 28.8 pg (25.0-35.0); MCHC 30.7 g/dL (31.0-37.0); MCV 93.7 fL (80.0-100.0); Monocytes # (A) 0.4 k/uL (0-1.0); Monocytes % (A) 6 %; Neutrophils % (A) 68 %; Platelet Count 286 k/uL (150-450); RBC 2.65 m/uL (3.80-5.40); WBC 7.4 k/uL (3.8-10.6)
[2021-11-05] MEDS: DULoxetine HCL 60 MG CAPSULE.DR PO SCH (09:27)
[2021-11-05] MEDS: amLODIPine 10 MG TAB PO SCH (09:27)
[2021-11-05] MEDS: ATORVASTATIN 40 MG TAB PO SCH (09:28)
[2021-11-05] MEDS: APIXABAN 2.5 MG TABLET PO SCH ×2 (09:28→21:22)
[2021-11-05] MEDS: SODIUM FERRIC GLUCONAT-SUCROSE 125 MG in SODIUM CHLORIDE 0.9% 100 ML IVPB SCH (09:29)
[2021-11-05] MEDS: NON FORMULARY DRUG (Lumateperone Tosylate [Caplyta] 42 MG Capsule) PO SCH (09:29)
[2021-11-05] MEDS: AMIODARONE 200 MG TAB PO SCH (09:29)
[2021-11-05] MEDS: COLLAGENASE 250 UNIT/GM OINTMENT 30 GM TUBE TOPICAL SCH (09:30)
[2021-11-05 11:33] LABS: Glucose,Whole Blood 175 mg/dL (70-110)
[2021-11-05 11:37] LABS: Potassium 5.2 mmol/L (3.5-5.1)
--- NOTE | 2021-11-05 11:53 | XR ---
EXAMINATION TYPE: XR chest 2V DATE OF EXAM: 11/05/2021 COMPARISON: Chest x-ray 11/01/2021 HISTORY: Hypoxia TECHNIQUE: Frontal and lateral views of the chest are obtained. FINDINGS: Bilateral airspace disease is present. There is a left-sided PICC line the distal tip is c oursing towards the level of the cavoatrial junction. There is no evident pneumothorax or pleural eff usion. Patient is post median sternotomy. Heart is enlarged. Bones are stable. Prominent lung volumes suggest underlying COPD. IMPRESSION: Correlate for congestive heart failure, pneumonia not excluded.
--- NOTE | 2021-11-05 12:02 | P.PN ---
Subjective This is a 71-year-old female with a past medical history significant for coronary artery disease with previous CABG, ischemic cardiomyopathy, paroxysmal atrial fibrillation, hypertension, hyperlipidemia, and CVA. Patient follows in the office with Dr. Soto. We have been asked to see the patient in consultation for elevated troponins. Patient has a history of right and left great toe amputation. She was recently hospitalized at [facility] for cellulitis and required debridement of her wounds. She is admitted to the hospital now with acute metabolic encephalopathy, sepsis, and osteomyelitis. He recently underwent Lexiscan stress test that was negative for ischemia but did reveal cardiomyopathy with an ejection fraction of 30%. Dr. Rondon spoke to the patient about having an AICD implanted and she was going to think about it. She states her recently and she has not had time to think about having AICD placed. Echocardiogram revealed EF 35%, apex is hypokinetic, mild to moderate mitral regurgitation. Brain CT with no acute intracranial process 11/05/2021: Patient examined at bedside, She is sitting up in the chair. She is confused. Vital signs are stable. Telemetry reviewed, patient maintaining sinus mechanism. Meds: Amiodarone 200 mg daily, Eliquis 2.5 mg twice a day, atorvastatin 40 mg d aily, metoprolol tartrate 25 mg nightly PHYSICAL EXAM: VITAL SIGNS: Reviewed. GENERAL: In no acute distress. HEENT: Head is normocephalic. Neck supple. No JVD LUNGS: Respirations even and unlabored. Lungs essentially clear to auscultation bilaterally. HEART: Regular rate and rhythm. S1 and S2 heard. Systolic murmur noted. ABDOMEN: Soft. Nondistended. Nontender. EXTREMITIES: Normal range of motion. No clubbing or cyanosis. Peripheral pulses intact. Toe amputations noted. NEUROLOGIC: Awake, lethargic confused. ASSESSMENT: Sepsis with osteomyelitis of left foot, with recent debridement at [facility] Abnormal troponins, flat, not suggestive of ACS, likely secondary to infectious process Coronary artery disease with previous CABG Ischemic cardiomyopathy with known EF 30-35% Paroxysmal atrial fibrillation Hypertension Hyperlipidemia History of CVA Acute kidney injury Diabetes Valvular heart disease PLAN: No new interventions from a cardiac standpoint. Continue home cardiac medication s Restart Lasix when able to take PO and improved Further recommendations pending patient's course Nurse practitioner note has been reviewed by physician. Signing provider agrees with the documented findings, assessment, and plan of care. Objective - Vital Signs Vital signs: Vital Signs Temp 98.1 F 11/04/21 17:15 Pulse 91 11/04/21 17:15 Resp 16 11/04/21 17:15 BP 112/69 11/04/21 17:15 Pulse Ox 92 L 11/04/21 17:15 FiO2 Intake & Output 11/04/21 11/04/21 11/05/21 06:59 18:59 06:59 Intake Total 150 Output Total 200 Balance 150 -200 Intake: Oral 150 Output: Urine 200 Other: Voiding Method External Catheter External Catheter # Voids 1 1 # Bowel Movements 0 - Labs CBC & Chem 7: 11/05/21 07:12 11/05/21 07:12 Labs: Abnormal Lab Results - Last 24 Hours (Table) 11/03/21 11/04/21 11/04/21 Range/Units 20:20 06:34 06:55 RBC 2.54 L (3.80-5.40) m/uL Hgb 7.4 L D (11.4-16.0) gm/dL Hct 23.7 L (34.0-46.0) % RDW 16.2 H (11.5-15.5) % POC Glucose (mg/dL) 191 H 164 H (70-110) mg/dL Iron (50-170) ug/dL TIBC (228-460) ug/dL % Saturation (12.00-45.00) Transferrin (204.0-354.0) mg/dL 11/04/21 11/04/21 11/04/21 Range/Units 06:55 11:42 14:36 RBC 2.60 L (3.80-5.40) m/uL Hgb 7.5 L (11.4-16.0) gm/dL Hct 24.3 L (34.0-46.0) % RDW 16.0 H (11.5-15.5) % POC Glucose (mg/dL) 208 H (70-110) mg/dL Iron 9 L (50-170) ug/dL TIBC 227 L (228-460) ug/dL % Saturation 3.97 L (12.00-45.00) Transferrin 162.0 L (204.0-354.0) mg/dL 11/04/21 Range/Units 16:40 RBC (3.80-5.40) m/uL Hgb (11.4-16.0) gm/dL Hct (34.0-46.0) % RDW (11.5-15.5) % POC Glucose (mg/dL) 212 H (70-110) mg/dL Iron (50-170) ug/dL TIBC (228-460) ug/dL % Saturation (12.00-45.00) Transferrin (204.0-354.0) mg/dL Microbiology - Last 24 Hours (Table) 11/01/21 16:31 Urine Culture - Final Urine,Voided Klebsiella pneumoniae Proteus mirabilis
[2021-11-05] MEDS: DAPTOmycin 500 MG in SODIUM CHLORIDE 0.9% 50 ML IVPB SCH (12:18)
[2021-11-05] MEDS: ALBUTEROL NEBULIZED 2.5 MG/3 ML INHALATION PRN ×2 (12:19→16:25)
[2021-11-05] MEDS: ACETAMINOPHEN TAB 325 MG TAB PO PRN (12:52)
[2021-11-05 13:34] LABS: Glucose,Whole Blood 159 mg/dL (70-110)
[2021-11-05 16:26] LABS: Glucose,Whole Blood 153 mg/dL (70-110)
--- NOTE | 2021-11-05 16:56 | P.GSCN ---
History of Present Illness History of present illness: 71-year-old white female well known to me from the past patient had a left foot toe amputation done in the past recently patient had a wound on the lateral aspect the left foot we did the debridement patient does was under care of infectious disease for IV antibiotic patient has been admitted with some cardiac issues under care of cardiology. Patient had a angiogram done left SFA is occl uded at the [facility] she was supposed to have a intervention then patient become sick and has been admitted today we have changed her dressing the wound is getting smaller we will continue with Santyl cream we will Medical history history of diabetes mellitus hypertension coronary artery diseas e COPD Patient was seen in the room neck is supple no bruit appreciated Chest patient has a bilateral crackles Abdomen is soft nontender Femorals 1+ left foot lateral aspect of the wound is granulating we have changed her dressing today we continue with Santyl cream when patient stable she will need vascular intervention for left SFA occlusive disease. Continue with Santyl cream daily Past Medical History Past Medical History: Asthma, Coronary Artery Disease (CAD), Heart Failure, COPD, CVA/TIA, Diabetes Mellitus, Hyperlipidemia, Hypertension, Pneumonia, Rheumatoid Arthritis (RA) Additional Past Medical History / Comment(s): left GREAT TOE WOUND, with current dressing, partial amputation on 06/28/20. hx of hyperbaric chamber 5 days a week, current PICC line left arm Last Myocardial Infarction Date:: 2014 History of Any Multi-Drug Resistant Organisms: None Reported Past Surgical History: Adenoidectomy, Appendectomy, Coronary Bypass/CABG, Heart Catheterization, Tonsillectomy, Tubal Ligation Additional Past Surgical History / Comment(s): Open heart on April 13 2015, cabg X4, bilateral carotid endarterectomies,. Right great toe amputation 2015. stent in right leg above knee, elke cataracts. left toe ambutation, 06/18/20 Past Anesthesia/Blood Transfusion Reactions: Previous Problems w/ Anesthesia Additional Past Anesthesia/Blood Transfusion Reaction / Comm: diff breathing afterwards Past Psychological History: No Psychological Hx Reported, Depression Additional Psychological History / Comment(s): current depression r/t passing away a week ago Smoking Status: Former smoker Past Alcohol Use History: None Reported Additional Past Alcohol Use History / Comment(s): STARTED SMOKING AT AGE 17, SMOKED 1 OR MORE PPD, QUIT 1982[facility] in October 2013. 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 She is currently living at home with daughter and sister Past Drug Use History: None Reported - Past Family History Father Family Medical History: Coronary Artery Disease (CAD), CVA/TIA, Diabetes Mellitus Mother Family Medical History: Myocardial Infarction ([place]) Additional Family Medical History / Comment(s): "spot on the lung", from heart attack Medications and Allergies Home Medications Medication Instructions Recorded Confirmed Type Albuterol Sulfate [Proair Hfa] 2 puff INHALATION RT-Q6H PRN 06/16/20 11/01/21 History Montelukast Sodium [Singulair] 10 mg PO HS 07/15/20 11/01/21 History DULoxetine HCL [Cymbalta] 60 mg PO DAILY 08/29/20 11/01/21 History Insulin Glargine,Hum.rec.anlog 8 unit SQ DAILY 05/16/21 11/01/21 History [Lantus Solostar Pen] Furosemide [Lasix] 40 mg PO DAILY 08/08/21 11/01/21 History ALPRAZolam [Xanax] 1 mg PO HS PRN 11/01/21 11/01/21 History Amiodarone [Cordarone] 200 mg PO DAILY 11/01/21 11/01/21 History Apixaban [Eliquis] 2.5 mg PO BID 11/01/21 11/01/21 History Atorvastatin [Lipitor] 80 mg PO DAILY 11/01/21 11/01/21 History Gabapentin [Neurontin] 300 mg PO HS 11/01/21 11/01/21 History HYDROcodone/APAP 5-325MG [[place] 1 tab PO BID PRN 11/01/21 11/01/21 History 5-325] Insulin Aspart [NovoLOG Flexpen] 12 units SQ ACHS 11/01/21 11/01/21 History Lumateperone Tosylate [Caplyta] 42 mg PO DAILY 11/01/21 11/01/21 History Metoprolol Tartrate [Lopressor] 25 mg PO HS 11/01/21 11/01/21 History Spironolactone 100 mg PO DAILY 11/01/21 11/01/21 History amLODIPine [Norvasc] 10 mg PO DAILY 11/01/21 11/01/21 History Allergies Allergy/AdvReac Type Severity Reaction Status Date / Time nickel Allergy Rash/Hives Verified 08/08/21 14:01 levofloxacin [From Levaquin] AdvReac Confusion Verified 08/08/21 14:01 Surgical - Exam Vital Signs Temp Pulse Resp BP Pulse Ox 98.0 F 98 16 121/67 96 11/01/21 15:14 11/01/21 15:14 11/01/21 15:14 11/01/21 15:14 11/01/21 15:14 Results - Labs 11/05/21 07:12 11/05/21 07:12 Abnormal Lab Results - Last 24 Hours (Table) 11/04/21 11/05/21 11/05/21 Range/Units 20:17 06:15 07:12 RBC 2.65 L (3.80-5.40) m/uL Hgb 7.6 L (11.4-16.0) gm/dL Hct 24.8 L (34.0-46.0) % MCHC 30.7 L (31.0-37.0) g/dL RDW 16.0 H (11.5-15.5) % Sodium (137-145) mmol/L Potassium (3.5-5.1) mmol/L Carbon Dioxide (22-30) mmol/L BUN (7-17) mg/dL Creatinine (0.52-1.04) mg/dL Glucose (74-99) mg/dL POC Glucose (mg/dL) 208 H 149 H (70-110) mg/dL Calcium (8.4-10.2) mg/dL 11/05/21 11/05/21 11/05/21 Range/Units 07:12 11:31 13:32 RBC (3.80-5.40) m/uL Hgb (11.4-16.0) gm/dL Hct (34.0-46.0) % MCHC (31.0-37.0) g/dL RDW (11.5-15.5) % Sodium 134 L (137-145) mmol/L Potassium 5.2 H (3.5-5.1) mmol/L Carbon Dioxide 17 L (22-30) mmol/L BUN 38 H (7-17) mg/dL Creatinine 1.81 H (0.52-1.04) mg/dL Glucose 127 H (74-99) mg/dL POC Glucose (mg/dL) 175 H 159 H (70-110) mg/dL Calcium 8.0 L (8.4-10.2) mg/dL 11/05/21 Range/Units 16:24 RBC (3.80-5.40) m/uL Hgb (11.4-16.0) gm/dL Hct (34.0-46.0) % MCHC (31.0-37.0) g/dL RDW (11.5-15.5) % Sodium (137-145) mmol/L Potassium (3.5-5.1) mmol/L Carbon Dioxide (22-30) mmol/L BUN (7-17) mg/dL Creatinine (0.52-1.04) mg/dL Glucose (74-99) mg/dL POC Glucose (mg/dL) 153 H (70-110) mg/dL Calcium (8.4-10.2) mg/dL Microbiology - Last 24 Hours (Table) 11/03/21 19:41 Blood Culture - Preliminary Blood No Growth after 24 hours Diabetes panel 11/05/21 Range/Units 07:12 Sodium 134 L (137-145) mmol/L Potassium 5.2 H (3.5-5.1) mmol/L Chloride 103 (98-107) mmol/L Carbon Dioxide 17 L (22-30) mmol/L BUN 38 H (7-17) mg/dL Creatinine 1.81 H (0.52-1.04) mg/dL Glucose 127 H (74-99) mg/dL Calcium 8.0 L (8.4-10.2) mg/dL Calcium panel 11/05/21 Range/Units 07:12 Calcium 8.0 L (8.4-10.2) mg/dL Pituitary panel 11/05/21 Range/Units 07:12 Sodium 134 L (137-145) mmol/L Potassium 5.2 H (3.5-5.1) mmol/L Chloride 103 (98-107) mmol/L Carbon Dioxide 17 L (22-30) mmol/L BUN 38 H (7-17) mg/dL Creatinine 1.81 H (0.52-1.04) mg/dL Glucose 127 H (74-99) mg/dL Calcium 8.0 L (8.4-10.2) mg/dL Adrenal panel 11/05/21 Range/Units 07:12 Sodium 134 L (137-145) mmol/L Potassium 5.2 H (3.5-5.1) mmol/L Chloride 103 (98-107) mmol/L Carbon Dioxide 17 L (22-30) mmol/L BUN 38 H (7-17) mg/dL Creatinine 1.81 H (0.52-1.04) mg/dL Glucose 127 H (74-99) mg/dL Calcium 8.0 L (8.4-10.2) mg/dL
[2021-11-05] MEDS ORDERED: FUROSEMIDE 10 MG/ML 2 ML VIAL IV ONE (19:13)
--- NOTE | 2021-11-05 19:32 | P.PN ---
Subjective Progress Note Date: 11/05/21 This is a 71-year-old female patient of Dr. Sanderson with past medical history of diabetes mellitus type 2, hypertension, hyperlipidemia, CVA in 2013 with no residuals, coronary artery disease status post 4 vessel CABG, bilateral carotid endarterectomies, mild intermittent asthma, osteomyelitis status post right great toe amputation 2014 and left toe amputation and left big toe amputation as well. Patient was hospitalized recently at [facility] for osteomyelitis and severe cellulitis of the left foot require debridement status post debridement by Dr. Gregory patient was placed on IV antibiotics apparently in the form of daptomycin by Dr. Mccaeb. Note the patient's was also recently hospitalized at [facility] and he has subsequently passed last week. Patient apparently came into [facility] in Hospital by EMS due to altered mental status as well as clinical decline since her discharge from [facility]. She has had multiple falls has been lethargic. Patient was found to be afebrile, heart rate 90, blood pressure 121/67, pulse ox 96% on room air. EKG sinus tachycardia. WBC 3.3, hemoglobin 13.1, platelet count 184. Sodium 134, potassium 3.7, chloride 90, CO2 31, BUN 27 creatinine 1.71. Blood sugar 125. INR 1.1. Urinalysis blood moderate, nitrate positive, leukoesterase large, WBC greater than 182, WBC clumps moderate, bacteria occasional. Urine drug screen was positive for opiates. Lactic acid 0.8. Liver function tests were normal. Ammonia level less than 9. Troponin 0.256, 0.303, 0.264. TSH 1.87. Albumin 3.1. Salicylate level less than 1 and acetaminophen level less than 10. Serum alcohol level less than 10. ProBNP 20,500 Chest x-ray reveals no definite acute process. CAT scan of the brain revealed no acute intracranial process. Similar remote temporal lobe injury along with right basal ganglia injury. Left foot x-ray reveals no fracture or malalignment. Patient was provided a half liter of IV fluid, 1 dose of ceftriaxone, admitted to the cardiac stepdown unit and consults with Dr. Gregory and Dr. Mccabe. 11/03: Patient is doing much better today, while more energetic, she was able to ambulate, without any assist devices, not leaning towards the left side as noted by the daughter, urine culture growing 2 gram-negative bacilli, sensitivities currently pending. No fever, however T-max of 99 2, stable vital signs, systolic 1:15, pulse ox 2 L, 96%. Wound is being followed surgically, by Dr. Gregory, Dr. Calvin is still following her for infection. She is still on IV Rocephin, and daptomycin. Obtain kidney ultrasound, evaluate for nephrolithiasis or infected kidney stones. 11/04, patient was seen a bit drowsy today, patient did not sleep well last night, however they've given her her home dose Xanax 1 mg later at night, as the patient is not sleeping, this is her normal 1 mg home dose, the patient has still to process the of the who less than 2 weeks ago, we have offered her the Xanax 0.5 3 times a day when necessary, however this is not taken. Patient was seen drowsy today, answers to questions, however she would drift off back to sleep. Hemoglobin also was dropping significantly, from an entry hemoglobin 13, to current hemoglobin of 7.3. No GI losses are noted, patient does not have any headache, or in the process of obtaining Hemoccult stools, CAT scan of the brain without contrast, patient might need BiPAP if not any better, she might need blood gases. Blood sugars and blood pressures are stable, patient had a T-max of 101 yesterday, renal ultrasound failed to reveal any stone, no hydronephrosis, hold discharge today secondary to somnolence, and hemoglobin drop and the fever blood cultures has been sent to 92% on 5 L nasal cannula, patient's on IV Rocephin for UTI, and daptomycin, for osteomyelitis left foot urine culture, growing Klebsiella pneumonia resistant to ampicillin, , Proteus mirabilis, resistant to nitrofurantoin and tetracycline. We've held gabapentin, and Xanax home dose held, and [place] was held, secondary to hypersomnolence 11/05/2021 Picking up coverage for Dr. Thompson today. Patient is evaluated today resting in bed. She continues to be drowsy but is alert. She reports feeling sleepy today. Her main complaint is pain to her left foot, currently is dressed with kerlex. She continues on IV antibiotics in the form of daptomycin and ceftriaxone. Infectious disease is following patient. Urine culture showing klebsiella and proteus. Blood culture negative so far. Hemoglobin remains stable at 7.6, no signs of acute bleeding, she received 2 doses of IV ferrlecit. Sodium today 134, potassium 5.2, BUN 38, creatinine 1.81. Blood glucose in the 150s. Patient is now requiring 5L nasal cannula and chest xray follow up completed showing vascular congestion versus pneumonia. Repeat BNP found to be 77,600 will give a dose of IV lasix. Fluids have been discontinued, patient dose have an EF of 30 to 35%. Cardiology is following the patient closely. Vascular surgery is following the patient and recommends to continue santyl cream daily to lateral left foot recommending vascular intervention when stable. Review of Systems Constitutional: Reports fatigue. denied any fever. Cardio vascular: denied any chest pain, palpitations Gastrointestinal: denied any nausea, vomiting, diarrhea Pulmonary: Denied any shortness of breath cough Neurologic denied any new focal deficits All inpatient medications were reviewed and appropriate changes in these medications as dictated in the interval history and assessment and plan. Physical Examination Gen: This is a 71 year-old obese female. Resting in bed. HEENT: Head is atraumatic, normocephalic. Pupils equal, round. Sclerae is anicteric. NECK: Supple. No JVD. No lymphadenopathy. No thyromegaly. LUNGS: Lungs are diminished. HEART: Regular rate and rhythm. No murmur. ABDOMEN: Soft. Bowel sounds are present. No masses. No tenderness. EXTREMITIES: No pedal edema. No calf tenderness. Right great toe amputation, l right second toe has small abrasion. Left foot dressed in kerlex NEUROLOGICAL: Patient is awake, alert and oriented to person and place. Cranial nerves 2 through 12 are grossly intact. Assessment and Plan Acute metabolic encephalopathy secondary to sepsis and osteomyelitis. Mentation slightly improved, continues on IV daptomycin, IV ceftriaxone. Infectious disease and vascular services on consultation. Osteomyelitis the left foot. Patient is status post debridement at [facility] by Dr. Gregory, discharge with home care and IV daptomycin which is resumed, continue with local wound care santyl daily. Urinary tract infection. Patient is on ceftriaxone Elevated troponins, likely from infection, ACS ruled out by cardiology. Acute kidney injury and chronic kidney disease stage III. Continue IV hydration but decreased to 50 mL per hour due to history of heart failure. Chronic systolic and diastolic heart failure with mild acute failure one time dose of IV lasix given Ischemic cardiomyopathy COPD without exacerbation. Continue albuterol nebulizer treatment every 6 hours as needed. Continue Singulair 10 mg at bedtime. Paroxysmal atrial fibrillation. Continue eliquis 2.5 mg twice daily, amiodarone 200 mg daily, Lopressor 25 mg at bedtime. Coronary artery disease with history of 4 vessel CABG at [facility] in 2014. History of inferior ST elevated myocardial infarction 08/2020 status post PCI of the SVG to RCA. Diabetes mellitus type 2 insulin requiring. Continue Levemir 8 units daily and sliding scale. Patient has poor oral intake holding meal time insulin. History of DVT and pulmonary embolism. Continue eliquis 2.5 mg twice daily. History of CVA and mild memory loss. Hypertension. Currently normotensive with BP in the high 90s systolic today, holding amlodipine. Hyperlipidemia. Continue atorvastatin decreased to 40 mg daily while on daptomycin . Diabetic neuropathy. Gabapentin on hold due to currently mentation/lethargy Recurrent depression and generalized anxiety disorder, situational anxiety disorder with recent loss of her . Continue patient on Cymbalta 60 mg at bedtime. Xanax is currently on hold. Peripheral vascular disease with previous stenting of the right lower extremity. Consult with Dr. Gregory who recommends intervention once medically stable. GI prophylaxis. Protonix. DVT prophylaxis. Eliquis. CODE STATUS: NO code. Admit patient to the inpatient service for more than 2 night stay. DISCHARGE PLAN TBD. Most likely return home with [facility] care. PT consult. Plan Patient will receive a one time of IV lasix, repeat labs in the AM. Multiple medications on hold. Pending final blood cultures. Patient is continued on IV daptomycin, IV ceftriaxone. Followed by multiple consultations including infectious disease, cardiology, vascular services. Consider nephrology consultation if creatinine worsens. The impression and plan of care has been dictated by Adela Lanier Nurse Practitioner as directed. Dr. René MD I have performed a history and physical examination and medical decision making of this patient, discussed the same with the dictator, and agree with the dictators assessment and plan as written, documented as a scribe. Based on total visit time, I have performed more than 50% of this visit. Objective - Vital Signs Vital signs: Vital Signs Temp 98.9 F 11/05/21 11:41 Pulse 86 11/05/21 12:30 Resp 22 11/05/21 11:41 BP 118/60 11/05/21 11:41 Pulse Ox 90 L 11/05/21 12:02 FiO2 Intake & Output 11/04/21 11/05/21 11/05/21 18:59 06:59 18:59 Output Total 200 Balance -200 Weight 66.5 kg Output: Urine 200 Other: Voiding Method External Catheter External Catheter Diaper # Voids 1 0 1 - Labs CBC & Chem 7: 11/05/21 07:12 11/05/21 07:12 Labs: Abnormal Lab Results - Last 24 Hours (Table) 11/04/21 11/04/21 11/04/21 Range/Units 14:36 16:40 20:17 RBC 2.60 L (3.80-5.40) m/uL Hgb 7.5 L (11.4-16.0) gm/dL Hct 24.3 L (34.0-46.0) % MCHC (31.0-37.0) g/dL RDW 16.0 H (11.5-15.5) % Sodium (137-145) mmol/L Potassium (3.5-5.1) mmol/L Carbon Dioxide (22-30) mmol/L BUN (7-17) mg/dL Creatinine (0.52-1.04) mg/dL Glucose (74-99) mg/dL POC Glucose (mg/dL) 212 H 208 H (70-110) mg/dL Calcium (8.4-10.2) mg/dL 11/05/21 11/05/21 11/05/21 Range/Units 06:15 07:12 07:12 RBC 2.65 L (3.80-5.40) m/uL Hgb 7.6 L (11.4-16.0) gm/dL Hct 24.8 L (34.0-46.0) % MCHC 30.7 L (31.0-37.0) g/dL RDW 16.0 H (11.5-15.5) % Sodium 134 L (137-145) mmol/L Potassium 5.2 H (3.5-5.1) mmol/L Carbon Dioxide 17 L (22-30) mmol/L BUN 38 H (7-17) mg/dL Creatinine 1.81 H (0.52-1.04) mg/dL Glucose 127 H (74-99) mg/dL POC Glucose (mg/dL) 149 H (70-110) mg/dL Calcium 8.0 L (8.4-10.2) mg/dL 11/05/21 Range/Units 11:31 RBC (3.80-5.40) m/uL Hgb (11.4-16.0) gm/dL Hct (34.0-46.0) % MCHC (31.0-37.0) g/dL RDW (11.5-15.5) % Sodium (137-145) mmol/L Potassium (3.5-5.1) mmol/L Carbon Dioxide (22-30) mmol/L BUN (7-17) mg/dL Creatinine (0.52-1.04) mg/dL Glucose (74-99) mg/dL POC Glucose (mg/dL) 175 H (70-110) mg/dL Calcium (8.4-10.2) mg/dL Microbiology - Last 24 Hours (Table) 11/03/21 19:41 Blood Culture - Preliminary Blood No Growth after 24 hours Assessment and Plan Time with Patient: Less than 30
[2021-11-05 20:00] LABS: Glucose,Whole Blood 137 mg/dL (70-110)
[2021-11-05] MEDS: MONTELUKAST 10 MG TAB PO SCH (21:22)
[2021-11-05] MEDS: METOPROLOL TARTRATE 25 MG TAB PO SCH (21:22)
[2021-11-05] MEDS: MELATONIN 3 MG TABLET PO SCH (21:22)
[2021-11-06 06:29] LABS: Glucose,Whole Blood 102 mg/dL (70-110)
[2021-11-06] MEDS: INSULIN ASPART (NovoLOG) 100 UNIT/ML VIAL SQ SCH ×4 (06:49→20:50)
[2021-11-06] MEDS: INSULIN DETEMIR (LEVEMIR) 100 UNIT/ML SYR SQ SCH (06:52)
[2021-11-06] MEDS: NON FORMULARY DRUG (Lumateperone Tosylate [Caplyta] 42 MG Capsule) PO SCH (07:25)
[2021-11-06] MEDS: ALBUTEROL NEBULIZED 2.5 MG/3 ML INHALATION PRN ×2 (07:37→11:37)
[2021-11-06] MEDS: AMIODARONE 200 MG TAB PO SCH (07:52)
[2021-11-06] MEDS: ATORVASTATIN 40 MG TAB PO SCH (07:52)
[2021-11-06] MEDS: APIXABAN 2.5 MG TABLET PO SCH ×2 (07:52→20:50)
[2021-11-06] MEDS: DULoxetine HCL 60 MG CAPSULE.DR PO SCH (07:53)
[2021-11-06 08:03] LABS: Anisocytosis Slight; Basophils % (A) 0 %; Eosinophils # (A) 0.1 k/uL (0-0.7); Eosinophils % (A) 1 %; HCT 27.2 % (34.0-46.0); HGB 8.3 gm/dL (11.4-16.0); Hypochromasia Marked; Lymphocytes # (A) 0.9 k/uL (1.0-4.8); Lymphocytes % (A) 10 %; MCH 28.5 pg (25.0-35.0); MCHC 30.6 g/dL (31.0-37.0); Mean Platelet Volume 8.1; Monocytes # (A) 0.3 k/uL (0-1.0); Monocytes % (A) 4 %; Neutrophils # (A) 7.3 k/uL (1.3-7.7); Neutrophils % (A) 84 %; Platelet Count 321 k/uL (150-450); RBC 2.92 m/uL (3.80-5.40); WBC 8.7 k/uL (3.8-10.6)
[2021-11-06 08:53] LABS: Magnesium 1.7 mg/dL (1.6-2.3); Potassium 4.5 mmol/L (3.5-5.1)
[2021-11-06] MEDS ORDERED: FUROSEMIDE 40 MG TAB PO SCH (11:15)
[2021-11-06 11:43] LABS: Glucose,Whole Blood 136 mg/dL (70-110)
[2021-11-06] MEDS ORDERED: ONDANSETRON 4 MG/2 ML VIAL IVP PRN (12:40)
[2021-11-06] MEDS: ACETAMINOPHEN TAB 325 MG TAB PO PRN (12:46)
--- NOTE | 2021-11-06 12:51 | P.PN ---
Subjective This is a 71-year-old female with a past medical history significant for coronary artery disease with previous CABG, ischemic cardiomyopathy, paroxysmal atrial fibrillation, hypertension, hyperlipidemia, and CVA. Patient follows in the office with Dr. Soto. We have been asked to see the patient in consultation for elevated troponins. Patient has a history of right and left great toe amputation. She was recently hospitalized at [facility] for cellulitis and required debridement of her wounds. She is admitted to the hospital now with acute metabolic encephalopathy, sepsis, and osteomyelitis. He recently underwent Lexiscan stress test that was negative for ischemia but did reveal cardiomyopathy with an ejection fraction of 30%. Dr. Rondon spoke to the patient about having an AICD implanted and she was going to think about it. She states her recently and she has not had time to think about having AICD placed. Echocardiogram revealed EF 35%, apex is hypokinetic, mild to moderate mitral regurgitation. Brain CT with no acute intracranial process 11/06/2021: Patient examined at bedside, Lying in bed, She is more alert this morning. She is oriented to person and knows she is in [place] and the hospital. She does endorse some bilateral feet pain. Vital signs are stable. Telemetry reviewed, patient maintaining sinus mechanism. Did receive IV Lasix 20mg yesterday Meds: Amiodarone 200 mg daily, Eliquis 2.5 mg twice a day, atorvastatin 40 mg daily, metoprolol tartrate 25 mg nightly PHYSICAL EXAM: VITAL SIGNS: Reviewed. GENERAL: In no acute distress. HEENT: Head is normocephalic. Neck supple. No JVD LUNGS: Respirations even and unlabored. Lungs essentially clear to auscultation bilaterally. HEART: Regular rate and rhythm. S1 and S2 heard. Systolic murmur noted. ABDOMEN: Soft. Nondistended. Nontender. EXTREMITIES: Normal range of motion. No clubbing or cyanosis. Peripheral p ulses intact. Toe amputations noted. NEUROLOGIC: Awake, more alert oriented to person and place ASSESSMENT: Sepsis with osteomyelitis of left foot, with recent debridement at [facility] Abnormal troponins, flat, not suggestive of ACS, likely secondary to infectious process Acute metabolic encephalopathy Coronary artery disease with previous CABG Ischemic cardiomyopathy with known EF 30-35% Paroxysmal atrial fibrillation Hypertension Hyperlipidemia History of CVA Acute kidney injury Diabetes Valvular heart disease PLAN: No new interventions from a cardiac standpoint. Continue home cardiac medic ations Restart Lasix Further recommendations pending patient's course Nurse practitioner note has been reviewed by physician. Signing provider agrees with the documented findings, assessment, and plan of care. Objective - Vital Signs Vital signs: Vital Signs Temp 98.1 F 11/06/21 07:51 Pulse 96 11/06/21 07:51 Resp 20 11/06/21 07:51 BP 127/72 11/06/21 07:51 Pulse Ox 95 11/06/21 07:51 FiO2 Intake & Output 11/05/21 11/06/21 11/06/21 18:59 06:59 18:59 Intake Total 0 120 Output Total 500 500 Balance 0 -500 -380 Intake: Oral 0 120 Output: Urine 500 500 Other: Voiding Method Diaper Diaper Diaper External Catheter External Catheter # Voids 1 # Bowel Movements 1 1 - Labs CBC & Chem 7: 11/06/21 07:25 11/06/21 07:25 Labs: Abnormal Lab Results - Last 24 Hours (Table) 11/05/21 11/05/21 11/05/21 Range/Units 07:12 11:31 13:32 RBC (3.80-5.40) m/uL Hgb (11.4-16.0) gm/dL Hct (34.0-46.0) % MCHC (31.0-37.0) g/dL RDW (11.5-15.5) % Lymphocytes # (1.0-4.8) k/uL Sodium 134 L (137-145) mmol/L Potassium 5.2 H (3.5-5.1) mmol/L Carbon Dioxide 17 L (22-30) mmol/L BUN 38 H (7-17) mg/dL Creatinine 1.81 H (0.52-1.04) mg/dL Glucose 127 H (74-99) mg/dL POC Glucose (mg/dL) 175 H 159 H (70-110) mg/dL Calcium 8.0 L (8.4-10.2) mg/dL 11/05/21 11/05/21 11/06/21 Range/Units 16:24 19:59 07:25 RBC 2.92 L (3.80-5.40) m/uL Hgb 8.3 L (11.4-16.0) gm/dL Hct 27.2 L (34.0-46.0) % MCHC 30.6 L (31.0-37.0) g/dL RDW 16.0 H (11.5-15.5) % Lymphocytes # 0.9 L (1.0-4.8) k/uL Sodium (137-145) mmol/L Potassium (3.5-5.1) mmol/L Carbon Dioxide (22-30) mmol/L BUN (7-17) mg/dL Creatinine (0.52-1.04) mg/dL Glucose (74-99) mg/dL POC Glucose (mg/dL) 153 H 137 H (70-110) mg/dL Calcium (8.4-10.2) mg/dL 11/06/21 Range/Units 07:25 RBC (3.80-5.40) m/uL Hgb (11.4-16.0) gm/dL Hct (34.0-46.0) % MCHC (31.0-37.0) g/dL RDW (11.5-15.5) % Lymphocytes # (1.0-4.8) k/uL Sodium 136 L (137-145) mmol/L Potassium (3.5-5.1) mmol/L Carbon Dioxide 21 L (22-30) mmol/L BUN 38 H (7-17) mg/dL Creatinine 1.64 H (0.52-1.04) mg/dL Glucose 103 H (74-99) mg/dL POC Glucose (mg/dL) (70-110) mg/dL Calcium 8.0 L (8.4-10.2) mg/dL Microbiology - Last 24 Hours (Table) 11/03/21 19:41 Blood Culture - Preliminary Blood No Growth after 48 hours
[2021-11-06 16:22] LABS: Glucose,Whole Blood 142 mg/dL (70-110)
[2021-11-06] MEDS ORDERED: Magnesium Replacement Protocol 1 EACH MISC MISCELLANE PRN (18:41)
--- NOTE | 2021-11-06 18:49 | P.PN ---
Subjective Progress Note Date: 11/06/21 This is a 71-year-old female patient of Dr. Sanderson with past medical history of diabetes mellitus type 2, hypertension, hyperlipidemia, CVA in 2013 with no residuals, coronary artery disease status post 4 vessel CABG, bilateral carotid endarterectomies, mild intermittent asthma, osteomyelitis status post right great toe amputation 2014 and left toe amputation and left big toe amputation as well. Patient was hospitalized recently at [facility] for osteomyelitis and severe cellulitis of the left foot require debridement status post debridement by Dr. Gregory patient was placed on IV antibiotics apparently in the form of daptomycin by Dr. Mccabe. Note the patient's was also recently hospitalized at [facility] and he has subsequently passed last week. Patient apparently came into [facility] in Hospital by EMS due to altered mental status as well as clinical decline since her discharge from [facility]. She has had multiple falls has been lethargic. Patient was found to be afebrile, heart rate 90, blood pressure 121/67, pulse ox 96% on room air. EKG sinus tachycardia. WBC 3.3, hemoglobin 13.1, platelet count 184. Sodium 134, potassium 3.7, chloride 90, CO2 31, BUN 27 creatinine 1.71. Blood sugar 125. INR 1.1. Urinalysis blood moderate, nitrate positive, leukoesterase large, WBC greater than 182, WBC clumps moderate, bacteria occasional. Urine drug screen was positive for opiates. Lactic acid 0.8. Liver function tests were normal. Ammonia level less than 9. Troponin 0.256, 0.303, 0.264. TSH 1.87. Albumin 3.1. Salicylate level less than 1 and acetaminophen level less than 10. Serum alcohol level less than 10. ProBNP 20,500 Chest x-ray reveals no definite acute process. CAT scan of the brain revealed no acute intracranial process. Similar remote temporal lobe injury along with right basal ganglia injury. Left foot x-ray reveals no fracture or malalignment. Patient was provided a half liter of IV fluid, 1 dose of ceftriaxone, admitted to the cardiac stepdown unit and consults with Dr. Gregory and Dr. Mccabe. 11/03: Patient is doing much better today, while more energetic, she was able to ambulate, without any assist devices, not leaning towards the left side as noted by the daughter, urine culture growing 2 gram-negative bacilli, sensitivities currently pending. No fever, however T-max of 99 2, stable vital signs, systolic 1:15, pulse ox 2 L, 96%. Wound is being followed surgically, by Dr. Gregory, Dr. Calvin is still following her for infection. She is still on IV Rocephin, and daptomycin. Obtain kidney ultrasound, evaluate for nephrolithiasis or infected kidney stones. 11/04, patient was seen a bit drowsy today, patient did not sleep well last night, however they've given her her home dose Xanax 1 mg later at night, as the patient is not sleeping, this is her normal 1 mg home dose, the patient has still to process the of the who less than 2 weeks ago, we have offered her the Xanax 0.5 3 times a day when necessary, however this is not taken. Patient was seen drowsy today, answers to questions, however she would drift off back to sleep. Hemoglobin also was dropping significantly, from an entry hemoglobin 13, to current hemoglobin of 7.3. No GI losses are noted, patient does not have any headache, or in the process of obtaining Hemoccult stools, CAT scan of the brain without contrast, patient might need BiPAP if not any better, she might need blood gases. Blood sugars and blood pressures are stable, patient had a T-max of 101 yesterday, renal ultrasound failed to reveal any stone, no hydronephrosis, hold discharge today secondary to somnolence, and hemoglobin drop and the fever blood cultures has been sent to 92% on 5 L nasal cannula, patient's on IV Rocephin for UTI, and daptomycin, for osteomyelitis left foot urine culture, growing Klebsiella pneumonia resistant to ampicillin, , Proteus mirabilis, resistant to nitrofurantoin and tetracycline. We've held gabapentin, and Xanax home dose held, and [place] was held, secondary to hypersomnolence 11/05/2021 Picking up coverage for Dr. Thompson today. Patient is evaluated today resting in bed. She continues to be drowsy but is alert. She reports feeling sleepy today. Her main complaint is pain to her left foot, currently is dressed with kerlex. She continues on IV antibiotics in the form of daptomycin and ceftriaxone. Infectious disease is following patient. Urine culture showing klebsiella and proteus. Blood culture negative so far. Hemoglobin remains stable at 7.6, no signs of acute bleeding, she received 2 doses of IV ferrlecit. Sodium today 134, potassium 5.2, BUN 38, creatinine 1.81. Blood glucose in the 150s. Patient is now requiring 5L nasal cannula and chest xray follow up completed showing vascular congestion versus pneumonia. Repeat BNP found to be 77,600 will give a dose of IV lasix. Fluids have been discontinued, patient dose have an EF of 30 to 35%. Cardiology is following the patient closely. Vascular surgery is following the patient and recommends to continue santyl cream daily to lateral left foot recommending vascular intervention when stable. 11/06/2021 Patient reports breathing has improved today, she is more awake. She is alert x 3, family at the bedside. She received a dose of IV lasix last night and today oxygen saturations have improved to 96%. Creatinine also improved down to 1.64. She has been resumed on oral lasix by cardiology today. Continues on iv daptomycin, iv ceftriaxone. Infectious disease following. Cardiology has discussed AICD with patient. Labs reviewed white count 8.7, hgb improved 8.3. Sodium 136, potassium 4.5, BUN 38, creatinine 1.64, blood glucose in the 140s, calcium 8.0, magnesium 1.7. Review of Systems Constitutional: Reports fatigue. denied any fever. Cardio vascular: denied any chest pain, palpitations Gastrointestinal: denied any nausea, vomiting, diarrhea Pulmonary: Denied any shortness of breath cough Neurologic denied any new focal deficits All inpatient medications were reviewed and appropriate changes in these medications as dictated in the interval history and assessment and plan. Physical Examination Gen: This is a 71 year-old obese female. Resting in bed. HEENT: Head is atraumatic, normocephalic. Pupils equal, round. Sclerae is anicteric. NECK: Supple. No JVD. No lymphadenopathy. No thyromegaly. LUNGS: Lungs are diminished. Improved aeration today. HEART: Regular rate and rhythm. No murmur. ABDOMEN: Soft. Bowel sounds are present. No masses. No tenderness. EXTREMITIES: No pedal edema. No calf tenderness. Right great toe amputation, l right second toe has small abrasion. Left foot dressed in kerlex NEUROLOGICAL: Patient is awake, alert and oriented to person and place. Cranial nerves 2 through 12 are grossly intact. Assessment and Plan Assessment -Acute metabolic encephalopathy secondary to sepsis and osteomyelitis, improved -Osteomyelitis the left foot -Urinary tract infection -Elevated troponins, likely from infection, ACS ruled out by cardiology. -Acute kidney injury and chronic kidney disease stage III -acute on Chronic systolic and diastolic heart failure -Ischemic cardiomyopathy with EF 30% -COPD without exacerbation. -Paroxysmal atrial fibrillation. -Coronary artery disease with history of 4 vessel CABG in 2014, PCI in 2020 -Diabetes Mellitus type 2 -History of DVT and pulmonary embolism. -History of CVA and mild memory loss. -History Hypertension currently normotensive -Hyperlipidemia -Diabetic neuropathy -Anxiety/depression exacerbated by recent loss of her -History of PVD with previous vascular stenting GI prophylaxis. Protonix. DVT prophylaxis. Eliquis. CODE STATUS: NO code. Plan Patient resumed on oral lasix today Continue IV daptomycin, IV ceftriaxone 2 grams IVPB magnesium ordered Continue local wound care Wean oxygen as tolerated Multiple consultations following including cardiology, infectious disease Discharge home when medically stable Possibly in the next 24 to 48 hours Follow up vascular outpatient with Dr Gregory The impression and plan of care has been dictated by Adela Lanier, Nurse Practitioner as directed. Dr. René MD I have performed a history and physical examination and medical decision making of this patient, discussed the same with the dictator, and agree with the dictators assessment and plan as written, documented as a scribe. Based on total visit time, I have performed more than 50% of this visit. Objective - Vital Signs Vital signs: Vital Signs Temp 98.1 F 11/06/21 07:51 Pulse 84 11/06/21 11:47 Resp 18 11/06/21 11:22 BP 110/67 11/06/21 11:22 Pulse Ox 91 L 11/06/21 11:22 FiO2 Intake & Output 11/05/21 11/06/21 11/06/21 18:59 06:59 18:59 Intake Total 0 120 Output Total 500 500 Balance 0 -500 -380 Weight 66.5 kg Intake: Oral 0 120 Output: Urine 500 500 Other: Voiding Method Diaper Diaper Diaper External Catheter External Catheter # Voids 1 # Bowel Movements 1 1 - Labs CBC & Chem 7: 11/06/21 07:25 11/06/21 07:25 Labs: Abnormal Lab Results - Last 24 Hours (Table) 11/05/21 11/05/21 11/06/21 Range/Units 16:24 19:59 07:25 RBC 2.92 L (3.80-5.40) m/uL Hgb 8.3 L (11.4-16.0) gm/dL Hct 27.2 L (34.0-46.0) % MCHC 30.6 L (31.0-37.0) g/dL RDW 16.0 H (11.5-15.5) % Lymphocytes # 0.9 L (1.0-4.8) k/uL Sodium (137-145) mmol/L Carbon Dioxide (22-30) mmol/L BUN (7-17) mg/dL Creatinine (0.52-1.04) mg/dL Glucose (74-99) mg/dL POC Glucose (mg/dL) 153 H 137 H (70-110) mg/dL Calcium (8.4-10.2) mg/dL 11/06/21 11/06/21 Range/Units 07:25 11:41 RBC (3.80-5.40) m/uL Hgb (11.4-16.0) gm/dL Hct (34.0-46.0) % MCHC (31.0-37.0) g/dL RDW (11.5-15.5) % Lymphocytes # (1.0-4.8) k/uL Sodium 136 L (137-145) mmol/L Carbon Dioxide 21 L (22-30) mmol/L BUN 38 H (7-17) mg/dL Creatinine 1.64 H (0.52-1.04) mg/dL Glucose 103 H (74-99) mg/dL POC Glucose (mg/dL) 136 H (70-110) mg/dL Calcium 8.0 L (8.4-10.2) mg/dL Microbiology - Last 24 Hours (Table) 11/03/21 19:41 Blood Culture - Preliminary Blood No Growth after 48 hours Assessment and Plan Time with Patient: Less than 30
[2021-11-06 20:08] LABS: Glucose,Whole Blood 195 mg/dL (70-110)
[2021-11-06] MEDS: METOPROLOL TARTRATE 25 MG TAB PO SCH (20:49)
[2021-11-06] MEDS: MONTELUKAST 10 MG TAB PO SCH (20:49)
[2021-11-06] MEDS: MELATONIN 3 MG TABLET PO SCH (20:50)
[2021-11-06] MEDS: MAGNESIUM SULFATE-D5W PMX 1 GM in DEXTROSE/WATER 1 100ML.BAG IVPB SCH (20:53)
[2021-11-06] MEDS: COLLAGENASE 250 UNIT/GM OINTMENT 30 GM TUBE TOPICAL SCH (21:48)
--- NOTE | 2021-11-06 23:00 | P.PN ---
Subjective Progress Note Date: 11/05/21 Principal diagnosis: Left foot osteo-myelitis and a UTI Patient is a 71-year-old female who was recently admitted at [facility] with left diabetic foot infection status post debridement with evidence of Osteomyelitis culture positive for MRSA for the patient was receiving daptomycin subsequently admitted to the hospital with mental status changes did have a component of dehydration and UTI. On today's evaluation dated 11/05/2021, the patient is afebrile, the patient is breathing comfortably on 3 L nasal cannula, the patient denies having any chest pain shortness of breath or cough no abdominal pain or diarrhea Objective - Vital Signs Vital signs: Vital Signs Temp 97.4 F L 11/05/21 16:00 Pulse 76 11/05/21 16:00 Resp 24 11/05/21 16:00 BP 109/67 11/05/21 16:00 Pulse Ox 93 L 11/05/21 16:00 FiO2 Intake & Output 11/04/21 11/05/21 11/05/21 18:59 06:59 18:59 Intake Total 0 Output Total 200 Balance -200 0 Weight 66.5 kg Intake: Oral 0 Output: Urine 200 Other: Voiding Method External Catheter External Catheter Diaper # Voids 1 0 1 - Exam GENERAL DESCRIPTION: An elderly female lying in bed in no distress RESPIRATORY SYSTEM: Unlabored breathing , decreased breath sounds at bases HEART: S1 S2 regular rate and rhythm , ABDOMEN: Soft , no tenderness EXTREMITIES: Left foot is currently dressed no drainage on the dressing - Labs CBC & Chem 7: 11/06/21 07:25 11/06/21 07:25 Labs: Abnormal Lab Results - Last 24 Hours (Table) 11/04/21 11/04/21 11/05/21 Range/Units 16:40 20:17 06:15 RBC (3.80-5.40) m/uL Hgb (11.4-16.0) gm/dL Hct (34.0-46.0) % MCHC (31.0-37.0) g/dL RDW (11.5-15.5) % Sodium (137-145) mmol/L Potassium (3.5-5.1) mmol/L Carbon Dioxide (22-30) mmol/L BUN (7-17) mg/dL Creatinine (0.52-1.04) mg/dL Glucose (74-99) mg/dL POC Glucose (mg/dL) 212 H 208 H 149 H (70-110) mg/dL Calcium (8.4-10.2) mg/dL 11/05/21 11/05/21 11/05/21 Range/Units 07:12 07:12 11:31 RBC 2.65 L (3.80-5.40) m/uL Hgb 7.6 L (11.4-16.0) gm/dL Hct 24.8 L (34.0-46.0) % MCHC 30.7 L (31.0-37.0) g/dL RDW 16.0 H (11.5-15.5) % Sodium 134 L (137-145) mmol/L Potassium 5.2 H (3.5-5.1) mmol/L Carbon Dioxide 17 L (22-30) mmol/L BUN 38 H (7-17) mg/dL Creatinine 1.81 H (0.52-1.04) mg/dL Glucose 127 H (74-99) mg/dL POC Glucose (mg/dL) 175 H (70-110) mg/dL Calcium 8.0 L (8.4-10.2) mg/dL 11/05/21 11/05/21 Range/Units 13:32 16:24 RBC (3.80-5.40) m/uL Hgb (11.4-16.0) gm/dL Hct (34.0-46.0) % MCHC (31.0-37.0) g/dL RDW (11.5-15.5) % Sodium (137-145) mmol/L Potassium (3.5-5.1) mmol/L Carbon Dioxide (22-30) mmol/L BUN (7-17) mg/dL Creatinine (0.52-1.04) mg/dL Glucose (74-99) mg/dL POC Glucose (mg/dL) 159 H 153 H (70-110) mg/dL Calcium (8.4-10.2) mg/dL Microbiology - Last 24 Hours (Table) 11/03/21 19:41 Blood Culture - Preliminary Blood No Growth after 24 hours Assessment and Plan (1) Diabetic foot ulcer associated with type 2 diabetes mellitus Current Visit: Yes Status: Acute Code(s): E11.621 - TYPE 2 DIABETES MELLITUS WITH FOOT ULCER SNOMED Code(s): 4300112945400 (2) Urinary tract infection Current Visit: Yes Status: Acute Code(s): N39.0 - URINARY TRACT INFECTION, SITE NOT SPECIFIED SNOMED Code(s): 70328209 Plan: 1patient presented to hospital with weakness lethargy which is likely multi factorial in this patient did have a dehydration plus minus a component of urinary tract infection likely from enteric gram-negative pathogen. 2patient with a left diabetic foot infection with underlying osteomyelitis culture positive for MRSA at [facility]. 3local wound care to the left foot wound with the Santyl followed by moist dressing change daily. 4patient continue with daptomycin for her left diabetic foot infections/Osteomyelitis 5the patient urine culture have been finalized with Klebsiella and Proteus, patient ultrasound was negative for any structural abnormality, the patient is covered with Rocephin 1 g daily which will be continued while inpatient and transitioned on antibiotic on discharge Time with Patient: Less than 30
--- NOTE | 2021-11-06 23:01 | P.PN ---
Subjective Progress Note Date: 11/06/21 Principal diagnosis: Left foot osteo-myelitis and a UTI Patient is a 71-year-old female who was recently admitted at [facility] with left diabetic foot infection status post debridement with evidence of Osteomyelitis culture positive for MRSA for the patient was receiving daptomycin subsequently admitted to the hospital with mental status changes did have a component of dehydration and UTI. On today's evaluation dated 11/06/2021, the patient remains to be afebrile, the patient is breathing comfortably on nasal cannula oxygen, the patient denies having any chest pain shortness of breath or cough no abdominal pain or diarrhea with antibiotic therapy Objective - Vital Signs Vital signs: Vital Signs Temp 98.1 F 11/06/21 07:51 Pulse 84 11/06/21 11:47 Resp 18 11/06/21 11:22 BP 110/67 11/06/21 11:22 Pulse Ox 91 L 11/06/21 11:22 FiO2 Intake & Output 11/05/21 11/06/21 11/06/21 18:59 06:59 18:59 Intake Total 0 120 Output Total 500 500 Balance 0 -500 -380 Intake: Oral 0 120 Output: Urine 500 500 Other: Voiding Method Diaper Diaper Diaper External Catheter External Catheter # Voids 1 # Bowel Movements 1 1 - Exam GENERAL DESCRIPTION: An elderly female lying in bed in no distress RESPIRATORY SYSTEM: Unlabored breathing , decreased breath sounds at bases HEART: S1 S2 regular rate and rhythm , ABDOMEN: Soft , no tenderness EXTREMITIES: Left foot is currently dressed no drainage on the dressing - Labs CBC & Chem 7: 11/06/21 07:25 11/06/21 07:25 Labs: Abnormal Lab Results - Last 24 Hours (Table) 11/05/21 11/05/21 11/05/21 Range/Units 13:32 16:24 19:59 RBC (3.80-5.40) m/uL Hgb (11.4-16.0) gm/dL Hct (34.0-46.0) % MCHC (31.0-37.0) g/dL RDW (11.5-15.5) % Lymphocytes # (1.0-4.8) k/uL Sodium (137-145) mmol/L Carbon Dioxide (22-30) mmol/L BUN (7-17) mg/dL Creatinine (0.52-1.04) mg/dL Glucose (74-99) mg/dL POC Glucose (mg/dL) 159 H 153 H 137 H (70-110) mg/dL Calcium (8.4-10.2) mg/dL 11/06/21 11/06/21 11/06/21 Range/Units 07:25 07:25 11:41 RBC 2.92 L (3.80-5.40) m/uL Hgb 8.3 L (11.4-16.0) gm/dL Hct 27.2 L (34.0-46.0) % MCHC 30.6 L (31.0-37.0) g/dL RDW 16.0 H (11.5-15.5) % Lymphocytes # 0.9 L (1.0-4.8) k/uL Sodium 136 L (137-145) mmol/L Carbon Dioxide 21 L (22-30) mmol/L BUN 38 H (7-17) mg/dL Creatinine 1.64 H (0.52-1.04) mg/dL Glucose 103 H (74-99) mg/dL POC Glucose (mg/dL) 136 H (70-110) mg/dL Calcium 8.0 L (8.4-10.2) mg/dL Microbiology - Last 24 Hours (Table) 11/03/21 19:41 Blood Culture - Preliminary Blood No Growth after 48 hours Assessment and Plan (1) Diabetic foot ulcer associated with type 2 diabetes mellitus Current Visit: Yes Status: Acute Code(s): E11.621 - TYPE 2 DIABETES MELLITUS WITH FOOT ULCER SNOMED Code(s): 4474444435261 (2) Urinary tract infection Current Visit: Yes Status: Acute Code(s): N39.0 - URINARY TRACT INFECTION, SITE NOT SPECIFIED SNOMED Code(s): 54842749 Plan: 1patient presented to hospital with weakness lethargy which is likely multifactorial in this patient did have a dehydration plus minus a component of urinary tract infection likely from enteric gram-negative pathogen. 2patient with a left diabetic foot infection with underlying osteomyelitis culture positive for MRSA at [facility]. 3local wound care to the left foot wound with the Santyl followed by moist dressing change daily. 4patient currently being treated with daptomycin for her left diabetic foot infections/Osteomyelitis 5the patient urine culture have been finalized with Klebsiella and Proteus, patient ultrasound was negative for any structural abnormality, the patient currently being treated with Rocephin continue while inpatient and transitioned to Ceftin on discharge Time with Patient: Less than 30
[2021-11-07] MEDS: ALBUTEROL NEBULIZED 2.5 MG/3 ML INHALATION PRN ×3 (01:05→11:23)
[2021-11-07] MEDS ORDERED: FUROSEMIDE 10 MG/ML 2 ML VIAL IV STA (04:48)
[2021-11-07 06:13] LABS: Glucose,Whole Blood 147 mg/dL (70-110)
[2021-11-07] MEDS: MAGNESIUM SULFATE-D5W PMX 1 GM in DEXTROSE/WATER 1 100ML.BAG IVPB SCH (06:18)
[2021-11-07] MEDS: INSULIN DETEMIR (LEVEMIR) 100 UNIT/ML SYR SQ SCH (06:22)
[2021-11-07] MEDS: INSULIN ASPART (NovoLOG) 100 UNIT/ML VIAL SQ SCH ×4 (06:23→20:43)
[2021-11-07] MEDS: NON FORMULARY DRUG (Lumateperone Tosylate [Caplyta] 42 MG Capsule) PO SCH (07:19)
[2021-11-07] MEDS ORDERED: FUROSEMIDE 10 MG/ML 2 ML VIAL IV ONE (08:00)
[2021-11-07] MEDS: AMIODARONE 200 MG TAB PO SCH (08:17)
[2021-11-07] MEDS: DULoxetine HCL 60 MG CAPSULE.DR PO SCH (08:17)
[2021-11-07] MEDS: APIXABAN 2.5 MG TABLET PO SCH ×2 (08:17→20:42)
[2021-11-07] MEDS: ATORVASTATIN 40 MG TAB PO SCH (08:17)
--- NOTE | 2021-11-07 09:09 | XR ---
EXAMINATION TYPE: XR chest 1V DATE OF EXAM: 11/07/2021 COMPARISON: 11/05/2021 HISTORY: Shortness of breath TECHNIQUE: Single frontal view of the chest is obtained. FINDINGS: Left-sided PICC line noted. There is cardiac enlargement diffuse bilateral airspace diseas e and small effusion. Atherosclerotic change aorta. Postsurgical changes noted. No pneumothorax arthr opathy of the shoulder IMPRESSION: Diffuse bilateral airspace disease and pleural effusion correlate for pulmonary edema ot herwise consider diffuse pneumonia. Findings stable.
[2021-11-07 09:37] LABS: Anisocytosis Slight; Basophils % (A) 0 %; Eosinophils # (A) 0.1 k/uL (0-0.7); Eosinophils % (A) 2 %; HCT 24.5 % (34.0-46.0); HGB 7.7 gm/dL (11.4-16.0); Hypochromasia Marked; Lymphocytes % (A) 17 %; MCH 29.1 pg (25.0-35.0); MCHC 31.5 g/dL (31.0-37.0); MCV 92.1 fL (80.0-100.0); Mean Platelet Volume 8.3; Monocytes # (A) 0.3 k/uL (0-1.0); Monocytes % (A) 5 %; Neutrophils # (A) 4.4 k/uL (1.3-7.7); Neutrophils % (A) 74 %; Platelet Count 291 k/uL (150-450); RBC 2.66 m/uL (3.80-5.40); RDW 16.3 % (11.5-15.5); WBC 5.9 k/uL (3.8-10.6)
[2021-11-07 09:55] LABS: Calcium 7.5 mg/dL (8.4-10.2); Magnesium 1.8 mg/dL (1.6-2.3); Potassium 4.4 mmol/L (3.5-5.1)
[2021-11-07 11:22] LABS: Glucose,Whole Blood 130 mg/dL (70-110)
[2021-11-07] MEDS ORDERED: DAPTOmycin 500 MG in SODIUM CHLORIDE 0.9% 50 ML IVPB SCH (12:00)
--- NOTE | 2021-11-07 12:34 | P.PN ---
Subjective This is a 71-year-old female with a past medical history significant for coronary artery disease with previous CABG, ischemic cardiomyopathy, paroxysmal atrial fibrillation, hypertension, hyperlipidemia, and CVA. Patient follows in the office with Dr. Soto. We have been asked to see the patient in consultation for elevated troponins. Patient has a history of right and left great toe amputation. She was recently hospitalized at [facility] for cellulitis and required debridement of her wounds. She is admitted to the hospital now with acute metabolic encephalopathy, sepsis, and osteomyelitis. He recently underwent Lexiscan stress test that was negative for ischemia but did reveal cardiomyopathy with an ejection fraction of 30%. Dr. Rondon spoke to the patient about having an AICD implanted and she was going to think about it. She states her recently and she has not had time to think about having AICD placed. Echocardiogram revealed EF 35%, apex is hypokinetic, mild to moderate mitral regurgitation. Brain CT with no acute intracranial process 11/07/2021: Patient examined at bedside, Lying in bed, She is more alert this morning. She is more short of breath. She does endorses continued some bilateral feet pain. Vital signs are stable. Telemetry reviewed, patient maintaining sinus mechanism. Meds: IV Lasix 20mg daily given this morning, Amiodarone 200 mg daily, Eliquis 2.5 mg twice a day, atorvastatin 40 mg daily, metoprolol tartrate 25 mg nightly PHYSICAL EXAM: VITAL SIGNS: Reviewed. GENERAL: In no acute distress. HEENT: Head is normocephalic. Neck supple. No JVD LUNGS: Respirations even and unlabored. Lungs essentially clear to auscultation bilaterally. HEART: Regular rate and rhythm. S1 and S2 heard. Systolic murmur noted. ABDOMEN: Soft. Nondistended. Nontender. EXTREMITIES: Normal range of motion. No clubbing or cyanosis. Peripheral pulses intact. Toe amputations noted. NEUROLOGIC: Awake, more alert oriented to person and place ASSESSMENT: Sepsis with osteomyelitis of left foot, with recent debridement at [facility] Abnormal troponins, flat, not suggestive of ACS, likely secondary to infectious process Acute on chronic heart failure with reduced ejection fraction Acute metabolic encephalopathy Coronary artery disease with previous CABG Ischemic cardiomyopathy with known EF 30-35% Paroxysmal atrial fibrillation Hypertension Hyperlipidemia History of CVA Acute kidney injury Diabetes Valvular heart disease PLAN: IV Lasix 40mg BID Monitor I/Os, renal function and electrolytes Continue Eliquis, statin, beta sonya, amiodarone Further recommendations pending patient's course Nurse practitioner note has been reviewed by physician. Signing provider agrees with the documented findings, assessment, and plan of care. Objective - Vital Signs Vital signs: Vital Signs Temp 97.7 F 11/07/21 07:20 Pulse 90 11/07/21 07:33 Resp 18 11/07/21 07:20 BP 124/70 11/07/21 07:20 Pulse Ox 92 L 11/07/21 09:41 FiO2 Intake & Output 11/06/21 11/07/21 11/07/21 18:59 06:59 18:59 Intake Total 480 100 Output Total 800 Balance -320 100 Weight 66.5 kg 72 kg 72 kg Intake: Oral 480 100 Output: Urine 800 Other: Voiding Method Diaper Diaper Diaper External Catheter External Catheter External Catheter # Voids 2 # Bowel Movements 1 1 - Labs CBC & Chem 7: 11/07/21 08:46 11/07/21 08:46 Labs: Abnormal Lab Results - Last 24 Hours (Table) 11/06/21 11/06/21 11/06/21 Range/Units 11:41 16:21 20:06 RBC (3.80-5.40) m/uL Hgb (11.4-16.0) gm/dL Hct (34.0-46.0) % RDW (11.5-15.5) % Sodium (137-145) mmol/L BUN (7-17) mg/dL Creatinine (0.52-1.04) mg/dL Glucose (74-99) mg/dL POC Glucose (mg/dL) 136 H 142 H 195 H (70-110) mg/dL Calcium (8.4-10.2) mg/dL 11/07/21 11/07/21 11/07/21 Range/Units 06:12 08:46 08:46 RBC 2.66 L (3.80-5.40) m/uL Hgb 7.7 L (11.4-16.0) gm/dL Hct 24.5 L (34.0-46.0) % RDW 16.3 H (11.5-15.5) % Sodium 133 L (137-145) mmol/L BUN 33 H (7-17) mg/dL Creatinine 1.59 H (0.52-1.04) mg/dL Glucose 113 H (74-99) mg/dL POC Glucose (mg/dL) 147 H (70-110) mg/dL Calcium 7.5 L (8.4-10.2) mg/dL Microbiology - Last 24 Hours (Table) 11/03/21 19:41 Blood Culture - Preliminary Blood No Growth after 72 hours
[2021-11-07] MEDS ORDERED: IPRATROPIUM-ALBUTEROL 3 ML NEB INHALATION PRN (14:13)
--- NOTE | 2021-11-07 14:17 | P.PN ---
Subjective Progress Note Date: 11/07/21 This is a 71-year-old female patient of Dr. Sanderson with past medical history of diabetes mellitus type 2, hypertension, hyperlipidemia, CVA in 2013 with no residuals, coronary artery disease status post 4 vessel CABG, bilateral carotid endarterectomies, mild intermittent asthma, osteomyelitis status post right great toe amputation 2014 and left toe amputation and left big toe amputation as well. Patient was hospitalized recently at [facility] for osteomyelitis and severe cellulitis of the left foot require debridement status post debridement by Dr. Gregory patient was placed on IV antibiotics apparently in the form of daptomycin by Dr. Mccabe. Note the patient's was also recently hospitalized at [facility] and he has subsequently passed last week. Patient apparently came into [facility] in Hospital by EMS due to altered mental status as well as clinical decline since her discharge from [facility]. She has had multiple falls has been lethargic. Patient was found to be afebrile, heart rate 90, blood pressure 121/67, pulse ox 96% on room air. EKG sinus tachycardia. WBC 3.3, hemoglobin 13.1, platelet count 184. Sodium 134, potassium 3.7, chloride 90, CO2 31, BUN 27 creatinine 1.71. Blood sugar 125. INR 1.1. Urinalysis blood moderate, nitrate positive, leukoesterase large, WBC greater than 182, WBC clumps moderate, bacteria occasional. Urine drug screen was positive for opiates. Lactic acid 0.8. Liver function tests were normal. Ammonia level less than 9. Troponin 0.256, 0.303, 0.264. TSH 1.87. Albumin 3.1. Salicylate level less than 1 and acetaminophen level less than 10. Serum alcohol level less than 10. ProBNP 20,500 Chest x-ray reveals no definite acute process. CAT scan of the brain revealed no acute intracranial process. Similar remote temporal lobe injury along with right basal ganglia injury. Left foot x-ray reveals no fracture or malalignment. Patient was provided a half liter of IV fluid, 1 dose of ceftriaxone, admitted to the cardiac stepdown unit and consults with Dr. Gregory and Dr. Mccabe. 11/03: Patient is doing much better today, while more energetic, she was able to ambulate, without any assist devices, not leaning towards the left side as noted by the daughter, urine culture growing 2 gram-negative bacilli, sensitivities currently pending. No fever, however T-max of 99 2, stable vital signs, systolic 1:15, pulse ox 2 L, 96%. Wound is being followed surgically, by Dr. Gregory, Dr. Calvin is still following her for infection. She is still on IV Rocephin, and daptomycin. Obtain kidney ultrasound, evaluate for nephrolithiasis or infected kidney stones. 11/04, patient was seen a bit drowsy today, patient did not sleep well last night, however they've given her her home dose Xanax 1 mg later at night, as the patient is not sleeping, this is her normal 1 mg home dose, the patient has still to process the of the who less than 2 weeks ago, we have offered her the Xanax 0.5 3 times a day when necessary, however this is not taken. Patient was seen drowsy today, answers to questions, however she would drift off back to sleep. Hemoglobin also was dropping significantly, from an entry hemoglobin 13, to current hemoglobin of 7.3. No GI losses are noted, patient does not have any headache, or in the process of obtaining Hemoccult stools, CAT scan of the brain without contrast, patient might need BiPAP if not any better, she might need blood gases. Blood sugars and blood pressures are stable, patient had a T-max of 101 yesterday, renal ultrasound failed to reveal any stone, no hydronephrosis, hold discharge today secondary to somnolence, and hemoglobin drop and the fever blood cultures has been sent to 92% on 5 L nasal cannula, patient's on IV Rocephin for UTI, and daptomycin, for osteomyelitis left foot urine culture, growing Klebsiella pneumonia resistant to ampicillin, , Proteus mirabilis, resistant to nitrofurantoin and tetracycline. We've held gabapentin, and Xanax home dose held, and [place] was held, secondary to hypersomnolence 11/05/2021 Picking up coverage for Dr. Thompson today. Patient is evaluated today resting in bed. She continues to be drowsy but is alert. She reports feeling sleepy today. Her main complaint is pain to her left foot, currently is dressed with kerlex. She continues on IV antibiotics in the form of daptomycin and ceftriaxone. Infectious disease is following patient. Urine culture showing klebsiella and proteus. Blood culture negative so far. Hemoglobin remains stable at 7.6, no signs of acute bleeding, she received 2 doses of IV ferrlecit. Sodium today 134, potassium 5.2, BUN 38, creatinine 1.81. Blood glucose in the 150s. Patient is now requiring 5L nasal cannula and chest xray follow up completed showing vascular congestion versus pneumonia. Repeat BNP found to be 77,600 will give a dose of IV lasix. Fluids have been discontinued, patient dose have an EF of 30 to 35%. Cardiology is following the patient closely. Vascular surgery is following the patient and recommends to continue santyl cream daily to lateral left foot recommending vascular intervention when stable. 11/06/2021 Patient reports breathing has improved today, she is more awake. She is alert x 3, family at the bedside. She received a dose of IV lasix last night and today oxygen saturations have improved to 96%. Creatinine also improved down to 1.64. She has been resumed on oral lasix by cardiology today. Continues on iv daptomycin, iv ceftriaxone. Infectious disease following. Cardiology has discussed AICD with patient. Labs reviewed white count 8.7, hgb improved 8.3. Sodium 136, potassium 4.5, BUN 38, creatinine 1.64, blood glucose in the 140s, calcium 8.0, magnesium 1.7. 11/07/2021 Patient evaluated today she is slightly confused but is able to state her name, , location and she is able to tell me what brought her into the hospital. Overnight oxygen demand increased and she is now on 9L Hi flow cannula with oxygen saturation in the mid 90s. She did receive a 20 mg IV lasix dose around 0400, Cardiology has started patient on IV lasix 40 Q12. Repeat chest xray showing pleural effusion correlate for pulmonary edema consider diffuse pneumonia. Images refused and effusion appears worsening in the right lung. Labs today showing white count 5.9, hgb 7.7, sodium 133, potassium 4.4, BUN 33, cre atinine 1.59, blood glucose in the 130s, calcium 7.5, magnesium 1.8. Covid is negative. She is afebrile, blood pressure 126/66. Infectious disease is following. She continues on IV daptomycin, IV ceftriaxone. Review of Systems Constitutional: Reports fatigue. denied any fever. Cardio vascular: denied any chest pain, palpitations Gastrointestinal: denied any nausea, vomiting, diarrhea Pulmonary: Denied any shortness of breath cough Neurologic denied any new focal deficits All inpatient medications were reviewed and appropriate changes in these medications as dictated in the interval history and assessment and plan. Physical Examination Gen: This is a 71 year-old obese female. Resting in bed. She is alert x 2, slightly confused. HEENT: Head is atraumatic, normocephalic. Pupils equal, round. Sclerae is anicteric. NECK: Supple. No JVD. No lymphadenopathy. No thyromegaly. LUNGS: Lungs are diminished. Improved aeration today. HEART: Regular rate and rhythm. No murmur. ABDOMEN: Soft. Bowel sounds are present. No masses. No tenderness. EXTREMITIES: No pedal edema. No calf tenderness. Right great toe amputation, l right second toe has small abrasion. Left foot dressed in kerlex NEUROLOGICAL: Patient is awake, alert and oriented to person and place. Cranial nerves 2 through 12 are grossly intact. Assessment and Plan Assessment -Acute hypoxic respiratory failure secondary to acute CHF exacerbation, rule out pneumonia -Acute kidney injury and chronic kidney disease stage III -acute on Chronic systolic and diastolic heart failure -Acute metabolic encephalopathy secondary to sepsis and osteomyelitis, improved -Osteomyelitis in the left foot -Urinary tract infection -Elevated troponins, likely from infection, ACS ruled out by cardiology. -Ischemic cardiomyopathy with EF 30% -COPD without exacerbation. -Paroxysmal atrial fibrillation. -Coronary artery disease with history of 4 vessel CABG in 2014, PCI in 2020 -Diabetes Mellitus type 2 -History of DVT and pulmonary embolism. -History of CVA and mild memory loss. -History Hypertension currently normotensive -Hyperlipidemia -Diabetic neuropathy -Anxiety/depression exacerbated by recent loss of her -History of PVD with previous vascular stenting GI prophylaxis. Protonix. DVT prophylaxis. Eliquis. CODE STATUS: NO code. Plan IV lasix 40 mg Q12 Strict intake and output Continue IV daptomycin, IV ceftriaxone Continue local wound care Multiple consultations following including cardiology, infectious disease Follow up vascular outpatient with Dr Gregory The impression and plan of care has been dictated by Adela Lanier, Nurse Practitioner as directed. Dr. René MD I have performed a history and physical examination and medical decision making of this patient, discussed the same with the dictator, and agree with the dictators assessment and plan as written, documented as a scribe. Based on total visit time, I have performed more than 50% of this visit. Objective - Vital Signs Vital signs: Vital Signs Temp 97.7 F 11/07/21 07:20 Pulse 87 11/07/21 11:32 Resp 18 11/07/21 11:31 BP 126/66 11/07/21 11:31 Pulse Ox 92 L 11/07/21 12:34 FiO2 Intake & Output 11/06/21 11/07/21 11/07/21 18:59 06:59 18:59 Intake Total 480 100 Output Total 800 Balance -320 100 Weight 66.5 kg 72 kg 72 kg Intake: Oral 480 100 Output: Urine 800 Other: Voiding Method Diaper Diaper Diaper External Catheter External Catheter External Catheter # Voids 2 # Bowel Movements 1 1 - Labs CBC & Chem 7: 11/07/21 08:46 11/07/21 08:46 Labs: Abnormal Lab Results - Last 24 Hours (Table) 11/06/21 11/06/21 11/07/21 Range/Units 16:21 20:06 06:12 RBC (3.80-5.40) m/uL Hgb (11.4-16.0) gm/dL Hct (34.0-46.0) % RDW (11.5-15.5) % Sodium (137-145) mmol/L BUN (7-17) mg/dL Creatinine (0.52-1.04) mg/dL Glucose (74-99) mg/dL POC Glucose (mg/dL) 142 H 195 H 147 H (70-110) mg/dL Calcium (8.4-10.2) mg/dL 11/07/21 11/07/21 11/07/21 Range/Units 08:46 08:46 11:21 RBC 2.66 L (3.80-5.40) m/uL Hgb 7.7 L (11.4-16.0) gm/dL Hct 24.5 L (34.0-46.0) % RDW 16.3 H (11.5-15.5) % Sodium 133 L (137-145) mmol/L BUN 33 H (7-17) mg/dL Creatinine 1.59 H (0.52-1.04) mg/dL Glucose 113 H (74-99) mg/dL POC Glucose (mg/dL) 130 H (70-110) mg/dL Calcium 7.5 L (8.4-10.2) mg/dL Microbiology - Last 24 Hours (Table) 11/03/21 19:41 Blood Culture - Preliminary Blood No Growth after 72 hours Assessment and Plan Time with Patient: Less than 30
[2021-11-07] MEDS: FUROSEMIDE 10 MG/ML 4 ML VIAL IV SCH ×2 (15:24→20:42)
[2021-11-07] MEDS ORDERED: IPRATROPIUM-ALBUTEROL 3 ML NEB INHALATION SCH (16:00)
[2021-11-07 16:47] LABS: Glucose,Whole Blood 113 mg/dL (70-110)
[2021-11-07] MEDS: ACETAMINOPHEN TAB 325 MG TAB PO PRN (18:01)
[2021-11-07] MEDS: BUDESONIDE 0.25 MG/2 ML NEBU INHALATION SCH (20:17)
[2021-11-07 20:19] LABS: Glucose,Whole Blood 167 mg/dL (70-110)
[2021-11-07] MEDS: METOPROLOL TARTRATE 25 MG TAB PO SCH (20:42)
[2021-11-07] MEDS: MONTELUKAST 10 MG TAB PO SCH (20:42)
[2021-11-07] MEDS: MELATONIN 3 MG TABLET PO SCH (20:42)
[2021-11-07] MEDS: COLLAGENASE 250 UNIT/GM OINTMENT 30 GM TUBE TOPICAL SCH (20:43)
--- NOTE | 2021-11-07 22:14 | P.PN ---
Subjective Progress Note Date: 11/07/21 Principal diagnosis: Left foot osteo-myelitis and a UTI Patient is a 71-year-old female who was recently admitted at [facility] with left diabetic foot infection status post debridement with evidence of Osteomyelitis culture positive for MRSA for the patient was receiving daptomycin subsequently admitted to the hospital with mental status changes did have a component of dehydration and UTI. On today's evaluation dated 11/07/2021, the patient continues to be afebrile, the patient denies chest pain , however patient has been complaining of more shortness of breath and is requiring more supplemental oxygen patient denies any cough or sputum production abdominal pain no diarrhea Objective - Vital Signs Vital signs: Vital Signs Temp 97.7 F 11/07/21 07:20 Pulse 87 11/07/21 11:32 Resp 18 11/07/21 11:31 BP 126/66 11/07/21 11:31 Pulse Ox 92 L 11/07/21 12:34 FiO2 Intake & Output 11/06/21 11/07/21 11/07/21 18:59 06:59 18:59 Intake Total 480 100 Output Total 800 Balance -320 100 Weight 66.5 kg 72 kg 72 kg Intake: Oral 480 100 Output: Urine 800 Other: Voiding Method Diaper Diaper Diaper External Catheter External Catheter External Catheter # Voids 2 # Bowel Movements 1 1 - Exam GENERAL DESCRIPTION: An elderly female lying in bed in no distress RESPIRATORY SYSTEM: Unlabored breathing , decreased breath sounds at bases HEART: S1 S2 regular rate and rhythm , ABDOMEN: Soft , no tenderness EXTREMITIES: Left foot is currently dressed no drainage on the dressing - Labs CBC & Chem 7: 11/07/21 08:46 11/07/21 08:46 Labs: Abnormal Lab Results - Last 24 Hours (Table) 11/06/21 11/06/21 11/07/21 Range/Units 16:21 20:06 06:12 RBC (3.80-5.40) m/uL Hgb (11.4-16.0) gm/dL Hct (34.0-46.0) % RDW (11.5-15.5) % Sodium (137-145) mmol/L BUN (7-17) mg/dL Creatinine (0.52-1.04) mg/dL Glucose (74-99) mg/dL POC Glucose (mg/dL) 142 H 195 H 147 H (70-110) mg/dL Calcium (8.4-10.2) mg/dL 11/07/21 11/07/21 11/07/21 Range/Units 08:46 08:46 11:21 RBC 2.66 L (3.80-5.40) m/uL Hgb 7.7 L (11.4-16.0) gm/dL Hct 24.5 L (34.0-46.0) % RDW 16.3 H (11.5-15.5) % Sodium 133 L (137-145) mmol/L BUN 33 H (7-17) mg/dL Creatinine 1.59 H (0.52-1.04) mg/dL Glucose 113 H (74-99) mg/dL POC Glucose (mg/dL) 130 H (70-110) mg/dL Calcium 7.5 L (8.4-10.2) mg/dL Microbiology - Last 24 Hours (Table) 11/03/21 19:41 Blood Culture - Preliminary Blood No Growth after 72 hours Assessment and Plan (1) Diabetic foot ulcer associated with type 2 diabetes mellitus Current Visit: Yes Status: Acute Code(s): E11.621 - TYPE 2 DIABETES MELLITUS WITH FOOT ULCER SNOMED Code(s): 7513025902321 (2) Urinary tract infection Current Visit: Yes Status: Acute Code(s): N39.0 - URINARY TRACT INFECTION, SITE NOT SPECIFIED SNOMED Code(s): 67052599 Plan: 1patient presented to hospital with weakness lethargy which is likely multifactorial in this patient did have a dehydration plus minus a component of urinary tract infection likely from enteric gram-negative pathogen. 2patient with a left diabetic foot infection with underlying osteomyelitis culture positive for MRSA at [facility]. 3local wound care to the left foot wound with the Santyl followed by moist dressing change daily. 4patient currently being treated with daptomycin for her left diabetic foot infections/Osteomyelitis 5the patient urine culture have been finalized with Klebsiella and Proteus, patient ultrasound was negative for any structural abnormality, the patient to continue with Rocephin 6= worsening respiratory status more likely related to fluid overload/CHF clinically not behaving as pneumonia and will monitor closely Time with Patient: Less than 30
[2021-11-08 06:24] LABS: Glucose,Whole Blood 105 mg/dL (70-110)
[2021-11-08] MEDS: INSULIN ASPART (NovoLOG) 100 UNIT/ML VIAL SQ SCH ×4 (06:26→20:04)
[2021-11-08] MEDS: INSULIN DETEMIR (LEVEMIR) 100 UNIT/ML SYR SQ SCH (06:47)
[2021-11-08 06:58] LABS: Calcium 7.7 mg/dL (8.4-10.2); Magnesium 1.6 mg/dL (1.6-2.3); Potassium 4.1 mmol/L (3.5-5.1)
[2021-11-08] MEDS: BUDESONIDE 0.25 MG/2 ML NEBU INHALATION SCH ×2 (08:03→19:11)
[2021-11-08] MEDS: ATORVASTATIN 40 MG TAB PO SCH (09:19)
[2021-11-08] MEDS: FUROSEMIDE 10 MG/ML 4 ML VIAL IV SCH ×2 (09:20→20:13)
[2021-11-08] MEDS: APIXABAN 2.5 MG TABLET PO SCH ×2 (09:20→20:14)
[2021-11-08] MEDS: DULoxetine HCL 60 MG CAPSULE.DR PO SCH (09:20)
[2021-11-08] MEDS: AMIODARONE 200 MG TAB PO SCH (09:20)
[2021-11-08] MEDS: MAGNESIUM OXIDE 400 MG TAB PO SCH (09:24)
[2021-11-08] MEDS: NON FORMULARY DRUG (Lumateperone Tosylate [Caplyta] 42 MG Capsule) PO SCH (09:25)
[2021-11-08] MEDS ORDERED: Magnesium Replacement Protocol 1 EACH MISC MISCELLANE PRN (09:31)
--- NOTE | 2021-11-08 11:35 | P.PN ---
Subjective This is a 71-year-old female with a past medical history significant for coronary artery disease with previous CABG, ischemic cardiomyopathy, paroxysmal atrial fibrillation, hypertension, hyperlipidemia, and CVA. Patient follows in the office with Dr. Soto. We have been asked to see the patient in consultation for elevated troponins. Patient has a history of right and left great toe amputation. She was recently hospitalized at [facility] for cellulitis and required debridement of her wounds. She is admitted to the hospital now with acute metabolic encephalopathy, sepsis, and osteomyelitis. He recently underwent Lexiscan stress test that was negative for ischemia but did reveal cardiomyopathy with an ejection fraction of 30%. Dr. Rondon spoke to the patient about having an AICD implanted and she was going to think about it. She states her recently and she has not had time to think about having AICD placed. Echocardiogram revealed EF 35%, apex is hypokinetic, mild to moderate mitral regurgitation. Brain CT with no acute intracranial process 11/08/2021: Patient examined at bedside, Lying in bed, she continues to be confused. She continues to be short of breath. Continues to require 8L high flow nasal cannula. Vital signs are stable. Telemetry reviewed, patient maintaining sinus mechanism 60s-80s. Patient is -1100 fluid balance documented over the past 24 hours, Decrease weight noted. Incontinent at times not accurate with I/Os. Meds: IV Lasix 40mg daily BID, Amiodarone 200 mg daily, Eliquis 2.5 mg twice a day, atorvastatin 40 mg daily, metoprolol tartrate 25 mg nightly. She continues to be on IV antibiotics per infectious disease. Labs: Sodium 133, potassium 4.1, BUN 29, serum creatinine 1.5, magnesium 1.6 PHYSICAL EXAM: VITAL SIGNS: Reviewed. GENERAL: In no acute distress. HEENT: Head is normocephalic. Neck supple. No JVD LUNGS: Respirations even and unlabored. Lungs essentially clear to auscultation bilaterally. HEART: Regular rate and rhythm. S1 and S2 heard. Systolic murmur noted. ABDOMEN: Soft. Nondistended. Nontender. EXTREMITIES: Normal range of motion. No clubbing or cyanosis. Peripheral pulses intact. Toe amputations noted. NEUROLOGIC: Awake, more alert oriented to person and place ASSESSMENT: Sepsis with osteomyelitis of left foot, with recent debridement at [facility] Abnormal troponins, flat, not suggestive of ACS, likely secondary to infectious process Acute on chronic heart failure with reduced ejection fraction Acute metabolic encephalopathy Coronary artery disease with previous CABG Ischemic cardiomyopathy with known EF 30-35% Paroxysmal atrial fibrillation Hypertension Hyperlipidemia History of CVA Acute kidney injury Diabetes Valvular heart disease PLAN: Recommend continuing IV Lasix 40mg BID Monitor I/Os, renal function and electrolytes Continue Eliquis, statin, beta sonya, amiodarone Infectious disease following, patient continues to be on IV antibiotics Further recommendations pending patient's course Nurse practitioner note has been reviewed by physician. Signing provider agrees with the documented findings, assessment, and plan of care. Objective - Vital Signs Vital signs: Vital Signs Temp 98.6 F 11/08/21 08:00 Pulse 84 11/08/21 08:25 Resp 20 11/08/21 08:00 BP 139/65 11/08/21 08:00 Pulse Ox 89 L 11/08/21 08:00 FiO2 Intake & Output 11/07/21 11/08/21 11/08/21 18:59 06:59 18:59 Intake Total 100 Output Total 1200 Balance 100 -1200 Weight 72 kg 70 kg Intake: Oral 100 Output: Urine 1200 Other: Voiding Method Diaper Diaper External Catheter External Catheter # Voids 1 - Labs CBC & Chem 7: 11/07/21 08:46 11/08/21 06:04 Labs: Abnormal Lab Results - Last 24 Hours (Table) 11/07/21 11/07/21 11/08/21 Range/Units 16:42 20:17 06:04 Sodium 133 L (137-145) mmol/L Chloride 97 L (98-107) mmol/L BUN 29 H (7-17) mg/dL Creatinine 1.50 H (0.52-1.04) mg/dL Glucose 100 H (74-99) mg/dL POC Glucose (mg/dL) 113 H 167 H (70-110) mg/dL Calcium 7.7 L (8.4-10.2) mg/dL Microbiology - Last 24 Hours (Table) 11/03/21 19:41 Blood Culture - Preliminary Blood No Growth after 96 hours
[2021-11-08 11:42] LABS: Glucose,Whole Blood 105 mg/dL (70-110)
[2021-11-08] MEDS: DAPTOmycin 500 MG in SODIUM CHLORIDE 0.9% 50 ML IVPB SCH (12:00)
[2021-11-08] MEDS: ACETAMINOPHEN TAB 325 MG TAB PO PRN ×2 (12:53→23:46)
--- NOTE | 2021-11-08 14:04 | CT ---
EXAMINATION TYPE: CT chest wo con DATE OF EXAM: 11/08/2021 COMPARISON: 09/06/2020, chest x-ray 11/07/2021 HISTORY: Extensive pneumonia CT DLP: 350 mGycm, Automated exposure control for dose reduction was used. CONTRAST: Performed injected with 0 mL of Isovue 300. TECHNIQUE: Axial images were obtained at 5 mm thick sections. Reconstructed images are reviewed on [employer] computer in the coronal plane. FINDINGS: Inferior lateral right lobe thyroid has a hypoechoic nodule present present previously. Small bilateral pleural effusions are present. Bilateral consolidations within the lung briscoe more so on the right than the left. This is nonspecif ic. Consider atypical pneumonia among other etiologies. No enlarged mediastinal or hilar adenopathy is evident. The ascending aorta diameter at the level o f the main pulmonary artery is 3.6 cm. The main pulmonary artery diameter at the bifurcation is 3.4 cm. Prominent vascular calcification coronary vessels. Limited CT sections are obtained through the upper abdomen. Abdominal aortic calcification is present . Vascular calcifications and kidneys. IMPRESSIONS: 1. Patchy consolidation to the bilateral lungs more so on the right and left. Correlate for infectiou s etiologies. Consider atypical pneumonia within the differential. Pulmonary edema is also within the differential. Follow-up is recommended. 2. Small bilateral pleural effusions
--- NOTE | 2021-11-08 15:24 | P.PN ---
Subjective Progress Note Date: 11/08/21 This is a 71-year-old female patient of Dr. Sanderson with past medical history of diabetes mellitus type 2, hypertension, hyperlipidemia, CVA in 2013 with no residuals, coronary artery disease status post 4 vessel CABG, bilateral carotid endarterectomies, mild intermittent asthma, osteomyelitis status post right great toe amputation 2014 and left toe amputation and left big toe amputation as well. Patient was hospitalized recently at [facility] for osteomyelitis and severe cellulitis of the left foot require debridement status post debridement by Dr. Gregory patient was placed on IV antibiotics apparently in the form of daptomycin by Dr. Mccabe. Note the patient's was also recently hospitalized at [facility] and he has subsequently passed last week. Patient apparently came into [facility] in [facility] by EMS due to altered mental status as well as clinical decline since her discharge from [facility]. She has had multiple falls has been lethargic. Patient was found to be afebrile, heart rate 90, blood pressure 121/67, pulse ox 96% on room air. EKG sinus tachycardia. WBC 3.3, hemoglobin 13.1, platelet count 184. Sodium 134, potassium 3.7, chloride 90, CO2 31, BUN 27 creatinine 1.71. Blood sugar 125. INR 1.1. Urinalysis blood moderate, nitrate positive, leukoesterase large, WBC greater than 182, WBC clumps moderate, bacteria occasional. Urine drug screen was positive for opiates. Lactic acid 0.8. Liver function tests were normal. Ammonia level less than 9. Troponin 0.256, 0.303, 0.264. TSH 1.87. Albumin 3.1. Salicylate level less than 1 and acetaminophen level less than 10. Serum alcohol level less than 10. ProBNP 20,500 Chest x-ray reveals no definite acute process. CAT scan of the brain revealed no acute intracranial process. Similar remote temporal lobe injury along with right basal ganglia injury. Left foot x-ray reveals no fracture or malalignment. Patient was provided a half liter of IV fluid, 1 dose of ceftriaxone, admitted to the cardiac stepdown unit and consults with Dr. Gregory and Dr. Mccabe. 11/03: Patient is doing much better today, while more energetic, she was able to ambulate, without any assist devices, not leaning towards the left side as noted by the daughter, urine culture growing 2 gram-negative bacilli, sensitivities currently pending. No fever, however T-max of 99 2, stable vital signs, systolic 1:15, pulse ox 2 L, 96%. Wound is being followed surgically, by Dr. Gregory, Dr. Calvin is still following her for infection. She is still on IV Rocephin, and daptomycin. Obtain kidney ultrasound, evaluate for nephrolithiasis or infected kidney stones. 11/04, patient was seen a bit drowsy today, patient did not sleep well last night, however they've given her her home dose Xanax 1 mg later at night, as the patient is not sleeping, this is her normal 1 mg home dose, the patient has still to process the of the who less than 2 weeks ago, we have offered her the Xanax 0.5 3 times a day when necessary, however this is not taken. Patient was seen drowsy today, answers to questions, however she would drift off back to sleep. Hemoglobin also was dropping significantly, from an entry hemoglobin 13, to current hemoglobin of 7.3. No GI losses are noted, patient does not have any headache, or in the process of obtaining Hemoccult stools, CAT scan of the brain without contrast, patient might need BiPAP if not any better, she might need blood gases. Blood sugars and blood pressures are stable, patient had a T-max of 101 yesterday, renal ultrasound failed to reveal any stone, no hydronephrosis, hold discharge today secondary to somnolence, and hemoglobin drop and the fever blood cultures has been sent to 92% on 5 L nasal cannula, patient's on IV Rocephin for UTI, and daptomycin, for osteomyelitis left foot urine culture, growing Klebsiella pneumonia resistant to ampicillin, , Proteus mirabilis, resistant to nitrofurantoin and tetracycline. We've held gabapentin, and Xanax home dose held, and [facility] was held, secondary to hypersomnolence 11/05/2021 Picking up coverage for Dr. Thompson today. Patient is evaluated today resting in bed. She continues to be drowsy but is alert. She reports feeling sleepy today. Her main complaint is pain to her left foot, currently is dressed with kerlex. She continues on IV antibiotics in the form of daptomycin and ceftriaxone. Infectious disease is following patient. Urine culture showing klebsiella and proteus. Blood culture negative so far. Hemoglobin remains stable at 7.6, no signs of acute bleeding, she received 2 doses of IV ferrlecit. Sodium today 134, potassium 5.2, BUN 38, creatinine 1.81. Blood glucose in the 150s. Patient is now requiring 5L nasal cannula and chest xray follow up completed showing vascular congestion versus pneumonia. Repeat BNP found to be 77,600 will give a dose of IV lasix. Fluids have been discontinued, patient dose have an EF of 30 to 35%. Cardiology is following the patient closely. Vascular surgery is following the patient and recommends to continue santyl cream daily to lateral left foot recommending vascular intervention when stable. 11/06/2021 Patient reports breathing has improved today, she is more awake. She is alert x 3, family at the bedside. She received a dose of IV lasix last night and today oxygen saturations have improved to 96%. Creatinine also improved down to 1.64. She has been resumed on oral lasix by cardiology today. Continues on iv daptomycin, iv ceftriaxone. Infectious disease following. Cardiology has discussed AICD with patient. Labs reviewed white count 8.7, hgb improved 8.3. Sodium 136, potassium 4.5, BUN 38, creatinine 1.64, blood glucose in the 140s, calcium 8.0, magnesium 1.7. 11/07/2021 Patient evaluated today she is slightly confused but is able to state her name, , location and she is able to tell me what brought her into the hospital. Overnight oxygen demand increased and she is now on 9L Hi flow cannula with oxygen saturation in the mid 90s. She did receive a 20 mg IV lasix dose around 0400, Cardiology has started patient on IV lasix 40 Q12. Repeat chest xray showing pleural effusion correlate for pulmonary edema consider diffuse pneumonia. Images refused and effusion appears worsening in the right lung. Labs today showing white count 5.9, hgb 7.7, sodium 133, potassium 4.4, BUN 33, creatinine 1.59, blood glucose in the 130s, calcium 7.5, magnesium 1.8. Covid is negative. She is afebrile, blood pressure 126/66. Infectious disease is following. She continues on IV daptomycin, IV ceftriaxone. 11/08/2021 Patient is seen in follow-up this morning continues to be confused although able to answer some questions appropriately. Multiple medical consultations following including vascular surgery, infectious disease, cardiology. Patient continues with shortness of breath and is maintained on IV Lasix. Patient continues to require oxygen at 8 L high flow although found on exam on room air today as she continues to remove her oxygen. Encourage the patient along with nursing staff to continue oxygen supplementation. Wean as tolerated. Patient was maintained on when necessary breathing treatments although will make scheduled and continue with when necessary. Will consult pulmonary with concerns for pneumonia. Patient reports she is eating although unsure of how accurate this is. Will also order incentive spirometer. Also order pro calcitonin along with sputum culture, repeat urinalysis, sed rate, CRP and follow-up on labs. Will also add performer wrist and again will consult pulmonary and appreciate input and recommendations. CT of the chest is ordered. Most recent CBC yesterday was 7.7 and will follow-up with repeat labs as well. Patient is afebrile and denies chest pain at this time. Daughter called the nurse asking to restart her gabapentin although given her confusion will monitor closely at this time. Patient is extremely weak and will have physical therapy evaluate the patient. Also recommend orthostatic vital signs. Review of Systems Constitutional: Reports fatigue. denied any fever. Cardio vascular: denied any chest pain, palpitations Gastrointestinal: denied any nausea, vomiting, diarrhea Pulmonary: Denied any shortness of breath cough Neurologic denied any new focal deficits Active Medications Acetaminophen (Acetaminophen Tab 325 Mg Tab) 650 mg PO Q6HR PRN PRN Reason: Fever and/ or Pain Last Admin: 11/08/21 12:53 Dose: 650 mg Albuterol/Ipratropium (Ipratropium-Albuterol 3 Ml Neb) 3 ml INHALATION RT-Q4H PRN PRN Reason: Shortness Of Breath Or Wheezing Last Admin: 11/08/21 08:03 Dose: 3 ml Albuterol/Ipratropium (Ipratropium-Albuterol 3 Ml Neb) 3 ml INHALATION RT-QID JAY Amiodarone HCl (Amiodarone 200 Mg Tab) 200 mg PO DAILY [facility] Last Admin: 11/08/21 09:20 Dose: 200 mg Apixaban (Apixaban 2.5 Mg Tablet) 2.5 mg PO BID [facility]; Protocol Last Admin: 11/08/21 09:20 Dose: 2.5 mg Atorvastatin Calcium (Atorvastatin 40 Mg Tab) 40 mg PO DAILY [facility] Last Admin: 11/08/21 09:19 Dose: 40 mg Budesonide (Budesonide 0.25 Mg/2 Ml Nebu) 0.25 mg INHALATION RT-BID [facility] Last Admin: 11/08/21 08:03 Dose: 0.25 mg Collagenase (Collagenase 250 Unit/Gm Ointment 30 Gm Tube) 1 applic TOPICAL HS [facility]; Protocol Last Admin: 11/07/21 20:43 Dose: 1 applic Duloxetine HCl (Duloxetine Hcl 60 Mg Capsule.Dr) 60 mg PO DAILY [facility] Last Admin: 11/08/21 09:20 Dose: 60 mg Folic Acid (Folic Acid 1 Mg Tab) 1 mg PO DAILY@1200 [facility] Formoterol Fumarate (Formoterol Fumarate 20 Mcg/2 Ml Nebu) 20 mcg INHALATION RT-BID [facility] Furosemide (Furosemide 10 Mg/Ml 4 Ml Vial) 40 mg IV Q12HR [facility] Last Admin: 11/08/21 09:20 Dose: 40 mg Ceftriaxone Sodium 1 gm/ (Sodium Chloride) 50 mls @ 100 mls/hr IVPB Q24H [facility]; Protocol Last Admin: 11/07/21 23:16 Dose: 100 mls/hr Daptomycin 500 mg/ Sodium (Chloride) 50 mls @ 100 mls/hr IVPB Q24H [facility]; Protocol Insulin Aspart (Insulin Aspart (Novolog) 100 Unit/Ml Vial) 0 unit SQ ACHS [facility]; Protocol Last Admin: 11/08/21 12:50 Dose: Not Given Insulin Detemir (Insulin Detemir (Levemir) 100 Unit/Ml Syr) 8 unit SQ DAILY@0700 [facility] Last Admin: 11/08/21 06:47 Dose: 8 unit Magnesium Oxide (Magnesium Oxide 400 Mg Tab) 400 mg PO DAILY [facility] Last Admin: 11/08/21 09:24 Dose: 400 mg Melatonin (Melatonin 3 Mg Tablet) 6 mg PO [facility] Last Admin: 11/07/21 20:42 Dose: 6 mg Metoprolol Tartrate (Metoprolol Tartrate 25 Mg Tab) 25 mg PO [facility] Last Admin: 11/07/21 20:42 Dose: 25 mg Miscellaneous Information (Magnesium Replacement Protocol 1 Each Misc) 1 each MISCELLANE DAILY PRN; Protocol PRN Reason: Per Protocol Miscellaneous Information (Magnesium Replacement Protocol 1 Each Misc) 1 each MISCELLANE DAILY PRN; Protocol PRN Reason: Per Protocol Montelukast Sodium (Montelukast 10 Mg Tab) 10 mg PO HS [facility] Last Admin: 11/07/21 20:42 Dose: 10 mg Multivitamins (Multivitamins, Thera 1 Each Tab) 1 each PO DAILY@1200 JAY Naloxone HCl (Naloxone 0.4 Mg/Ml 1 Ml Vial) 0.2 mg IV Q2M PRN PRN Reason: Opioid Reversal Non-Formulary Medication (Lumateperone Tosylate [Caplyta]) 42 mg PO DAILY [facility] Last Admin: 11/08/21 09:25 Dose: Not Given Ondansetron HCl (Ondansetron 4 Mg/2 Ml Vial) 4 mg IVP Q6HR PRN PRN Reason: Nausea And Vomiting Last Admin: 11/06/21 12:46 Dose: 4 mg Thiamine HCl (Thiamine 100 Mg Tab) 100 mg PO DAILY@1200 JAY Physical Examination Gen: This is a 71 year-old obese female. Lying in bed found on room air although was reportedly being maintained on 8 L high flow. She is alert x 2, slightly confused. HEENT: Head is atraumatic, normocephalic. Pupils equal, round. Sclerae is anicteric. NECK: Supple. No JVD. No lymphadenopathy. No thyromegaly. LUNGS: Lungs are diminished bilaterally more so on the right with some scattered rhonchi and crackles noted at the bases HEART: S1, S2 are muffled ABDOMEN: Soft. Bowel sounds are present. No masses. No tenderness. EXTREMITIES: No pedal edema. No calf tenderness. Right great toe amputation, right second toe has small abrasion. Left foot dressed in kerlex NEUROLOGICAL: Patient is awake, alert and oriented to person and place. Cranial nerves 2 through 12 are grossly intact. Diffusely weak Assessment: -Acute hypoxic respiratory failure secondary to acute CHF exacerbation -Possible right lobe pneumonia -Acute kidney injury and chronic kidney disease stage III -acute on Chronic systolic and diastolic heart failure, acute exacerbation -Acute metabolic encephalopathy secondary to sepsis and osteomyelitis, improved -Osteomyelitis in the left foot -Urinary tract infection, present on admission with Proteus mirabilis and Klebsiella pneumonia noted in the cultures -Elevated troponins, likely from infection, ACS ruled out by cardiology. -Ischemic cardiomyopathy with EF 30% -COPD without exacerbation. -Paroxysmal atrial fibrillation. -Coronary artery disease with history of 4 vessel CABG in 2015, PCI in 2020 -Diabetes Mellitus type 2 -History of DVT and pulmonary embolism. -History of CVA and mild memory loss. -History Hypertension currently normotensive -Hyperlipidemia -Diabetic neuropathy -Anxiety/depression exacerbated by recent loss of her -History of PVD with previous vascular stenting -GI prophylaxis. Protonix. -DVT prophylaxis. Eliquis. -CODE STATUS: NO code. Plan: Recommend continue with current medications and management and IV antibiotics with ID following. Patient is maintained on IV Lasix twice daily with cardiology following and will consult pulmonary if there is concern for pneumonia. Patient having some shortness of breath continuing to require a liters although found on exam on room air as patient continues to be confused and has removed oxygen. Patient reports she is eating although unsure of how true this is in will add ensure supplements in between meals. Patient continues with extreme weakness and will have physical therapy evaluate the patient. We'll also consult pulmonary as mentioned previously as there is a strong suspicion of pneumonia. Vascular surgery following an recommend continue with wound care and will have close outpatient follow-up. Social work consulted as patient may require ECF for continued physical therapy for strength and mobility. Recommend orthostatic vital signs along with multiple labs and repeat urinalysis along with sputum culture. Chest CT ordered and pending at this time. Recommend repeat labs. Due to multiple complex medical issues, prognosis is extremely guarded. The impression and plan of care has been dictated by Lauren Castaneda, Nurse Practitioner as directed. Dr. Yeison MD I have performed a history and examination and MDM of this patient, discussed the same with the dictator, and agree with the dictator's assessment and plan as written ,documented as a scribe. Based on total visit time, I have performed more than 50% of the visit. Objective - Vital Signs Vital signs: Vital Signs Temp 98.6 F 11/08/21 08:00 Pulse 84 11/08/21 08:25 Resp 20 11/08/21 08:00 BP 139/65 11/08/21 08:00 Pulse Ox 89 L 11/08/21 08:00 FiO2 Intake & Output 11/07/21 11/08/21 11/08/21 18:59 06:59 18:59 Intake Total 100 Output Total 1200 Balance 100 -1200 Weight 72 kg 70 kg Intake: Oral 100 Output: Urine 1200 Other: Voiding Method Diaper Diaper External Catheter External Catheter # Voids 1 - Labs CBC & Chem 7: 11/07/21 08:46 11/08/21 06:04 Labs: Abnormal Lab Results - Last 24 Hours (Table) 11/07/21 11/07/21 11/07/21 Range/Units 08:46 08:46 11:21 RBC 2.66 L (3.80-5.40) m/uL Hgb 7.7 L (11.4-16.0) gm/dL Hct 24.5 L (34.0-46.0) % RDW 16.3 H (11.5-15.5) % Sodium 133 L (137-145) mmol/L Chloride (98-107) mmol/L BUN 33 H (7-17) mg/dL Creatinine 1.59 H (0.52-1.04) mg/dL Glucose 113 H (74-99) mg/dL POC Glucose (mg/dL) 130 H (70-110) mg/dL Calcium 7.5 L (8.4-10.2) mg/dL 11/07/21 11/07/21 11/08/21 Range/Units 16:42 20:17 06:04 RBC (3.80-5.40) m/uL Hgb (11.4-16.0) gm/dL Hct (34.0-46.0) % RDW (11.5-15.5) % Sodium 133 L (137-145) mmol/L Chloride 97 L (98-107) mmol/L BUN 29 H (7-17) mg/dL Creatinine 1.50 H (0.52-1.04) mg/dL Glucose 100 H (74-99) mg/dL POC Glucose (mg/dL) 113 H 167 H (70-110) mg/dL Calcium 7.7 L (8.4-10.2) mg/dL Microbiology - Last 24 Hours (Table) 11/03/21 19:41 Blood Culture - Preliminary Blood No Growth after 96 hours
[2021-11-08] MEDS: IPRATROPIUM-ALBUTEROL 3 ML NEB INHALATION SCH ×2 (15:47→19:10)
[2021-11-08] MEDS: MAGNESIUM SULFATE-D5W PMX 1 GM in DEXTROSE/WATER 1 100ML.BAG IVPB SCH ×2 (16:15→17:29)
[2021-11-08 16:37] LABS: Glucose,Whole Blood 126 mg/dL (70-110)
[2021-11-08] MEDS: FORMOTEROL FUMARATE 20 MCG/2 ML NEBU INHALATION SCH ×2 (19:10→19:30)
[2021-11-08 19:51] LABS: Glucose,Whole Blood 127 mg/dL (70-110)
[2021-11-08] MEDS: MONTELUKAST 10 MG TAB PO SCH (20:13)
[2021-11-08] MEDS: MELATONIN 3 MG TABLET PO SCH (20:14)
[2021-11-08] MEDS: METOPROLOL TARTRATE 25 MG TAB PO SCH (20:14)
[2021-11-08] MEDS: COLLAGENASE 250 UNIT/GM OINTMENT 30 GM TUBE TOPICAL SCH (20:14)
--- NOTE | 2021-11-08 22:36 | P.PN ---
Subjective Progress Note Date: 11/08/21 Principal diagnosis: Left foot osteo-myelitis and a UTI Patient is a 71-year-old female who was recently admitted at [facility] with left diabetic foot infection status post debridement with evidence of Osteomyelitis culture positive for MRSA for the patient was receiving daptomycin subsequently admitted to the hospital with mental status changes did have a component of dehydration and UTI. On today's evaluation dated 11/08/2021, the patient remains to be afebrile, the patient denies chest pain and is breathing more comfortably today, patient denie s any cough or sputum production abdominal pain no diarrhea Objective - Vital Signs Vital signs: Vital Signs Temp 97.6 F 11/08/21 12:00 Pulse 87 11/08/21 12:00 Resp 18 11/08/21 12:00 BP 134/67 11/08/21 12:00 Pulse Ox 94 L 11/08/21 12:00 FiO2 Intake & Output 11/07/21 11/08/21 11/08/21 18:59 06:59 18:59 Intake Total 100 Output Total 1200 Balance 100 -1200 Weight 72 kg 70 kg Intake: Oral 100 Output: Urine 1200 Other: Voiding Method Diaper Diaper Diaper External Catheter External Catheter External Catheter # Voids 1 - Exam GENERAL DESCRIPTION: An elderly female lying in bed in no distress RESPIRATORY SYSTEM: Unlabored breathing , decreased breath sounds at bases HEART: S1 S2 regular rate and rhythm , ABDOMEN: Soft , no tenderness EXTREMITIES: Left foot is currently dressed no drainage on the dressing - Labs CBC & Chem 7: 11/07/21 08:46 11/08/21 06:04 Labs: Abnormal Lab Results - Last 24 Hours (Table) 11/07/21 11/07/21 11/08/21 Range/Units 16:42 20:17 06:04 Sodium 133 L (137-145) mmol/L Chloride 97 L (98-107) mmol/L BUN 29 H (7-17) mg/dL Creatinine 1.50 H (0.52-1.04) mg/dL Glucose 100 H (74-99) mg/dL POC Glucose (mg/dL) 113 H 167 H (70-110) mg/dL Calcium 7.7 L (8.4-10.2) mg/dL C-Reactive Protein (<1.0) mg/dL 11/08/21 Range/Units 06:04 Sodium (137-145) mmol/L Chloride (98-107) mmol/L BUN (7-17) mg/dL Creatinine (0.52-1.04) mg/dL Glucose (74-99) mg/dL POC Glucose (mg/dL) (70-110) mg/dL Calcium (8.4-10.2) mg/dL C-Reactive Protein 19.6 H (<1.0) mg/dL Microbiology - Last 24 Hours (Table) 11/03/21 19:41 Blood Culture - Preliminary Blood No Growth after 96 hours Assessment and Plan (1) Diabetic foot ulcer associated with type 2 diabetes mellitus Current Visit: Yes Status: Acute Code(s): E11.621 - TYPE 2 DIABETES MELLITUS WITH FOOT ULCER SNOMED Code(s): 5410316450965 (2) Urinary tract infection Current Visit: Yes Status: Acute Code(s): N39.0 - URINARY TRACT INFECTION, SITE NOT SPECIFIED SNOMED Code(s): 86683587 Plan: 1patient presented to hospital with weakness lethargy which is likely multifactorial in this patient did have a dehydration plus minus a component of urinary tract infection likely from enteric gram-negative pathogen. 2patient with a left diabetic foot infection with underlying osteomyelitis culture positive for MRSA at [facility]. 3local wound care to the left foot wound with the Santyl followed by moist dressing change daily and will continue with daptomycin for her left diabetic foot infections/Osteomyelitis 4the patient urine culture have been finalized with Klebsiella and Proteus, patient ultrasound was negative for any structural abnormality, the patient to continue with Rocephin , finishing therapy with oral Ceftin Time with Patient: Less than 30
[2021-11-09 05:26] LABS: Anisocytosis Slight; Basophils % (A) 1 %; Eosinophils # (A) 0.4 k/uL (0-0.7); Eosinophils % (A) 5 %; HCT 31.1 % (34.0-46.0); Hypochromasia Marked; Lymphocytes # (A) 1.6 k/uL (1.0-4.8); Lymphocytes % (A) 25 %; MCH 27.4 pg (25.0-35.0); MCV 94.6 fL (80.0-100.0); Mean Platelet Volume 7.9; Monocytes # (A) 0.3 k/uL (0-1.0); Monocytes % (A) 5 %; Neutrophils # (A) 4.1 k/uL (1.3-7.7); Neutrophils % (A) 63 %; Platelet Count 288 k/uL (150-450); RBC 3.29 m/uL (3.80-5.40); RDW 16.4 % (11.5-15.5); WBC 6.6 k/uL (3.8-10.6)
[2021-11-09 05:52] LABS: Albumin 2.8 g/dL (3.5-5.0); Calcium 7.9 mg/dL (8.4-10.2); Magnesium 2.1 mg/dL (1.6-2.3); Potassium 3.7 mmol/L (3.5-5.1); Total Bilirubin 1.3 mg/dL (0.2-1.3); Total Protein 6.4 g/dL (6.3-8.2)
[2021-11-09 05:55] LABS: Glucose,Whole Blood 110 mg/dL (70-110)
[2021-11-09] MEDS: INSULIN ASPART (NovoLOG) 100 UNIT/ML VIAL SQ SCH ×4 (06:03→21:12)
[2021-11-09] MEDS: INSULIN DETEMIR (LEVEMIR) 100 UNIT/ML SYR SQ SCH (06:16)
[2021-11-09] MEDS: IPRATROPIUM-ALBUTEROL 3 ML NEB INHALATION SCH ×4 (08:02→20:52)
[2021-11-09] MEDS: BUDESONIDE 0.25 MG/2 ML NEBU INHALATION SCH ×2 (08:02→20:52)
[2021-11-09] MEDS: FORMOTEROL FUMARATE 20 MCG/2 ML NEBU INHALATION SCH ×2 (08:02→20:52)
[2021-11-09] MEDS: MAGNESIUM OXIDE 400 MG TAB PO SCH (08:41)
[2021-11-09] MEDS: THIAMINE 100 MG TAB PO SCH (08:41)
[2021-11-09] MEDS: DULoxetine HCL 60 MG CAPSULE.DR PO SCH (08:41)
[2021-11-09] MEDS: FUROSEMIDE 10 MG/ML 4 ML VIAL IV SCH ×2 (08:41→21:12)
[2021-11-09] MEDS: FOLIC ACID 1 MG TAB PO SCH (08:41)
[2021-11-09] MEDS: MULTIVITAMINS, THERA 1 EACH TAB PO SCH (08:41)
[2021-11-09] MEDS: AMIODARONE 200 MG TAB PO SCH (08:42)
[2021-11-09] MEDS: DAPTOmycin 500 MG in SODIUM CHLORIDE 0.9% 50 ML IVPB SCH (08:42)
[2021-11-09] MEDS: APIXABAN 2.5 MG TABLET PO SCH ×2 (08:42→21:12)
[2021-11-09] MEDS: NON FORMULARY DRUG (Lumateperone Tosylate [Caplyta] 42 MG Capsule) PO SCH (08:42)
[2021-11-09] MEDS: ATORVASTATIN 40 MG TAB PO SCH (08:42)
--- NOTE | 2021-11-09 09:04 | XR ---
EXAMINATION TYPE: XR chest 1V portable DATE OF EXAM: 11/09/2021 COMPARISON: 11/07/2021 INDICATION: Short of breath TECHNIQUE: Single frontal view of the chest is obtained. FINDINGS: The heart size is normal. The pulmonary vasculature is indistinct. Patchy infiltrates are present bilaterally. Findings are nonspecific. Correlate for atypical pneumoni a and pulmonary edema. Findings appear to be improving over the interval. Sternotomy wires are in the midline. IMPRESSION: 1. Improving bilateral diffuse lung infiltrates. Pulmonary edema and atypical pneumonia considered wi thin the differential.
--- NOTE | 2021-11-09 11:05 | P.PN ---
Subjective This is a 71-year-old female with a past medical history significant for coronary artery disease with previous CABG, ischemic cardiomyopathy, paroxysmal atrial fibrillation, hypertension, hyperlipidemia, and CVA. Patient follows in the office with Dr. Soto. We have been asked to see the patient in consultation for elevated troponins. Patient has a history of right and left great toe amputation. She was recently hospitalized at [facility] for cellulitis and required debridement of her wounds. She is admitted to the hospital now with acute metabolic encephalopathy, sepsis, and osteomyelitis. He recently underwent Lexiscan stress test that was negative for ischemia but did reveal cardiomyopathy with an ejection fraction of 30%. Dr. Rondon spoke to the patient about having an AICD implanted and she was going to think about it. She states her recently and she has not had time to think about having AICD placed. Echocardiogram revealed EF 35%, apex is hypokinetic, mild to moderate mitral regurgitation. Brain CT with no acute intracranial process 11/09/2021: Patient examined at bedside, Lying in bed, she continues to be confused, but more alert today. Her breathing has improved. Continues to require 8L high flow nasal cannula. 100% oxygen saturations. Vital signs are stable. Telemetry reviewed, patient maintaining sinus mechanism 60s-80s. Patient is -750mL fluid balance documented over the past 24 hours, Decrease weight noted. Incontinent at times not accurate with I/Os. Meds: IV Lasix 40mg daily BID, Amiodarone 200 mg daily, Eliquis 2.5 mg twice a day, atorvastatin 40 mg daily, metoprolol tartrate 25 mg nightly. She continues to be on IV antibiotics per infectious disease. Labs: Sodium 133, potassium 3.7, BUN 26, serum creatinine 1.54, Mag 2.1 PHYSICAL EXAM: VITAL SIGNS: Reviewed. GENERAL: In no acute distress. HEENT: Head is normocephalic. Neck supple. No JVD LUNGS: Respirations even and unlabored. Lungs essentially clear to auscultation bilaterally. HEART: Regular rate and rhythm. S1 and S2 heard. Systolic murmur noted. ABDOMEN: Soft. Nondistended. Nontender. EXTREMITIES: Normal range of motion. No clubbing or cyanosis. Peripheral pulses intact. Toe amputations noted. NEUROLOGIC: Awake, more alert oriented to person and place ASSESSMENT: Sepsis with osteomyelitis of left foot, with recent debridement at [facility] Abnormal troponins, flat, not suggestive of ACS, likely secondary to infectious process Acute on chronic heart failure with reduced ejection fraction Acute metabolic encephalopathy Coronary artery disease with previous CABG Ischemic cardiomyopathy with known EF 30-35% Paroxysmal atrial fibrillation Hypertension Hyperlipidemia History of CVA Acute kidney injury Diabetes Valvular heart disease PLAN: Transition to PO Laix Continue Eliquis, statin, beta sonya, amiodarone Infectious disease following, patient continues to be on IV antibiotics From a cardiology perspective, patient is stable. No further inpatient changes at this time. We will follow the patient as needed Follow up outpatient with Dr. Soto. Nurse practitioner note has been reviewed by physician. Signing provider agrees with the documented findings, assessment, and plan of care. Objective - Vital Signs Vital signs: Vital Signs Temp 97.8 F 11/09/21 08:00 Pulse 84 11/09/21 08:24 Resp 18 11/09/21 09:06 BP 145/67 11/09/21 08:00 Pulse Ox 97 11/09/21 09:06 FiO2 Intake & Output 11/08/21 11/09/21 11/09/21 18:59 06:59 18:59 Intake Total 10 Output Total 750 Balance -750 10 Weight 68.5 kg Intake: IV 10 Invasive Line 2 10 Oral 0 Output: Urine 750 Other: Voiding Method Diaper External Catheter External Catheter External Catheter # Voids 1 - Labs CBC & Chem 7: 11/09/21 05:11 11/09/21 05:11 Labs: Abnormal Lab Results - Last 24 Hours (Table) 11/08/21 11/08/21 11/08/21 Range/Units 06:04 06:04 06:04 RBC (3.80-5.40) m/uL Hgb (11.4-16.0) gm/dL Hct (34.0-46.0) % MCHC (31.0-37.0) g/dL RDW (11.5-15.5) % ESR 125 H (0-20) mm/hr Sodium (137-145) mmol/L BUN (7-17) mg/dL Creatinine (0.52-1.04) mg/dL Glucose (74-99) mg/dL POC Glucose (mg/dL) (70-110) mg/dL Calcium (8.4-10.2) mg/dL AST (14-36) U/L ALT (4-34) U/L Alkaline Phosphatase (38-126) U/L C-Reactive Protein 19.6 H (<1.0) mg/dL Albumin (3.5-5.0) g/dL Procalcitonin 3.90 H (0.02-0.09) ng/mL 11/08/21 11/08/21 11/09/21 Range/Units 16:34 19:50 05:11 RBC 3.29 L (3.80-5.40) m/uL Hgb 9.0 L (11.4-16.0) gm/dL Hct 31.1 L (34.0-46.0) % MCHC 29.0 L (31.0-37.0) g/dL RDW 16.4 H (11.5-15.5) % ESR (0-20) mm/hr Sodium (137-145) mmol/L BUN (7-17) mg/dL Creatinine (0.52-1.04) mg/dL Glucose (74-99) mg/dL POC Glucose (mg/dL) 126 H 127 H (70-110) mg/dL Calcium (8.4-10.2) mg/dL AST (14-36) U/L ALT (4-34) U/L Alkaline Phosphatase (38-126) U/L C-Reactive Protein (<1.0) mg/dL Albumin (3.5-5.0) g/dL Procalcitonin (0.02-0.09) ng/mL 11/09/21 Range/Units 05:11 RBC (3.80-5.40) m/uL Hgb (11.4-16.0) gm/dL Hct (34.0-46.0) % MCHC (31.0-37.0) g/dL RDW (11.5-15.5) % ESR (0-20) mm/hr Sodium 133 L (137-145) mmol/L BUN 26 H (7-17) mg/dL Creatinine 1.54 H (0.52-1.04) mg/dL Glucose 106 H (74-99) mg/dL POC Glucose (mg/dL) (70-110) mg/dL Calcium 7.9 L (8.4-10.2) mg/dL AST 606 H (14-36) U/L ALT 439 H (4-34) U/L Alkaline Phosphatase 312 H (38-126) U/L C-Reactive Protein (<1.0) mg/dL Albumin 2.8 L (3.5-5.0) g/dL Procalcitonin (0.02-0.09) ng/mL Microbiology - Last 24 Hours (Table) 11/03/21 19:41 Blood Culture - Preliminary Blood No Growth after 120 hours
[2021-11-09 11:29] VITALS: BMI 24.3
[2021-11-09 12:09] LABS: Glucose,Whole Blood 143 mg/dL (70-110)
--- NOTE | 2021-11-09 12:46 | P.CNPUL ---
History of Present Illness Consult date: 11/09/21 Requesting physician: Nancy Thompson Reason for consult: dyspnea, asthma, pneumonia Chief complaint: Altered mental status History of present illness: This is a 71-year-old female with history of multiple medical problems including type 2 diabetes, diabetic neuropathy and diabetic foot ulcers, hypertension, dyslipidemia, history of CVA in 2013, coronary artery disease and previous CABG 4 history of mild intermittent asthma, and history of chronic osteomyelitis of the right foot. Multiple amputations of toes from right and left foot. Patient was recently hospitalized at [facility] for osteomyelitis and cellulitis of the left foot requiring debridement and she was treated with daptomycin by infectious disease. Patient was admitted this time to [facility] on 11/02/2021, and her admission diagnosis was altered mental status, and metabolic encephalopathy. Since then the patient has been seen by many consultants including infectious disease, internal medicine, cardiology, and at one point she had a chest x-ray showing evidence of pulmonary edema. Patient was treated with diuretics, and recent follow-up chest x-ray and CT of the chest questioned underlying pneumonia. Hence this consult was initiated. Overall patient has been steadily improving since admission, her mental status is improving but nonetheless she remains confused at times. I reviewed the chest x-ray, I also reviewed the CT of the chest, it is rather difficult to tell how much of the findings are related to pulmonary edema or underlying pneumonia. However the patient is on diuretic she is also on antibiotics and seems to be responding well clinically, hence I'm not recommending any changes in her present course of treatment. Patient does have significantly elevated BNP she also has significantly elevated pro calcitonin. Review of Systems CONSTITUTIONAL: Generalized weakness, weight loss, no fever no chills HEENT: Negative. CARDIOVASCULAR: History of CHF presently asymptomatic. No chest pain no orthopnea no PND RESPIRATORY: Negative GASTROINTESTINAL: Negative HEMATOLOGIC: Negative GENITOURINARY: Negative SKIN: Negative except for history of chronic diabetic foot ulcers. Psychiatric: Negative Neurologic: Intermittent episodes of confusion and forgetfulness be Past Medical History Past Medical History: Asthma, Coronary Artery Disease (CAD), Heart Failure, COPD, CVA/TIA, Diabetes Mellitus, Hyperlipidemia, Hypertension, Pneumonia, Rheumatoid Arthritis (RA) Additional Past Medical History / Comment(s): left GREAT TOE WOUND, with current dressing, partial amputation on 06/28/20. going to hyperbaric chamber 5 days a week, PICC line right arm Last Myocardial Infarction Date:: 2014 History of Any Multi-Drug Resistant Organisms: None Reported Past Surgical History: Adenoidectomy, Appendectomy, Coronary Bypass/CABG, Heart Catheterization, Tonsillectomy, Tubal Ligation Additional Past Surgical History / Comment(s): Open heart on April 13 2015, cabg X4, bilateral carotid endarterectomies,. Right great toe amputation 2015. stent in right leg above knee, elke cataracts. left toe ambutation, 06/18/20 Past Anesthesia/Blood Transfusion Reactions: Previous Problems w/ Anesthesia Additional Past Anesthesia/Blood Transfusion Reaction / Comment(s): diff breathing afterwards Past Psychological History: No Psychological Hx Reported Smoking Status: Former smoker Past Alcohol Use History: None Reported Past Drug Use History: None Reported - Past Family History Father Family Medical History: Coronary Artery Disease (CAD), CVA/TIA, Diabetes Mellitus Mother Family Medical History: Myocardial Infarction (MS) Additional Family Medical History / Comment(s): "spot on the lung" Medications and Allergies Home Medications Medication Instructions Recorded Confirmed Type Albuterol Sulfate [Proair Hfa] 2 puff INHALATION RT-Q6H PRN 06/16/20 11/01/21 History Montelukast Sodium [Singulair] 10 mg PO HS 07/15/20 11/01/21 History DULoxetine HCL [Cymbalta] 60 mg PO DAILY 08/29/20 11/01/21 History Insulin Glargine,Hum.rec.anlog 8 unit SQ DAILY 05/16/21 11/01/21 History [Lantus Solostar Pen] Furosemide [Lasix] 40 mg PO DAILY 08/08/21 11/01/21 History ALPRAZolam [Xanax] 1 mg PO HS PRN 11/01/21 11/01/21 History Amiodarone [Cordarone] 200 mg PO DAILY 11/01/21 11/01/21 History Apixaban [Eliquis] 2.5 mg PO BID 11/01/21 11/01/21 History Atorvastatin [Lipitor] 80 mg PO DAILY 11/01/21 11/01/21 History Gabapentin [Neurontin] 300 mg PO HS 11/01/21 11/01/21 History HYDROcodone/APAP 5-325MG [[place] 1 tab PO BID PRN 11/01/21 11/01/21 History 5-325] Insulin Aspart [NovoLOG Flexpen] 12 units SQ ACHS 11/01/21 11/01/21 History Lumateperone Tosylate [Caplyta] 42 mg PO DAILY 11/01/21 11/01/21 History Metoprolol Tartrate [Lopressor] 25 mg PO HS 11/01/21 11/01/21 History Spironolactone 100 mg PO DAILY 11/01/21 11/01/21 History amLODIPine [Norvasc] 10 mg PO DAILY 11/01/21 11/01/21 History Allergies Allergy/AdvReac Type Severity Reaction Status Date / Time nickel Allergy Rash/Hives Verified 08/08/21 14:01 levofloxacin [From Levaquin] AdvReac Confusion Verified 08/08/21 14:01 Physical Exam Vitals: Vital Signs Temp Pulse Pulse Resp BP Pulse Ox 11/09/21 12:02 76 11/09/21 11:52 82 11/09/21 09:06 18 97 11/09/21 08:24 84 11/09/21 08:20 18 88 L 11/09/21 08:17 88 11/09/21 08:16 88 11/09/21 08:10 18 95 11/09/21 08:05 82 92 L 11/09/21 08:00 97.8 F 76 18 145/67 98 11/09/21 04:00 72 18 144/64 93 L 11/09/21 02:00 80 20 11/09/21 00:00 80 20 145/68 91 L 11/08/21 20:00 97.6 F 80 18 136/63 96 11/08/21 19:22 84 11/08/21 19:14 80 11/08/21 16:00 97.6 F 86 18 135/72 88 L 11/08/21 15:59 87 11/08/21 15:47 82 Intake and Output 11/08/21 11/09/21 11/09/21 22:59 06:59 14:59 Intake Total 10 Output Total 750 Balance -750 10 Intake: IV 10 Invasive Line 2 10 Oral 0 Output: Urine 750 Other: Voiding Method External Catheter External Catheter External Catheter # Voids 1 Weight 68.5 kg 68.5 kg Physical Exam: Revealed a 69-year-old female in no form of distress. On 4 L nasal cannula, O2 saturations 97% HEENT:[Neck is supple.] [No neck masses.] [No thyromegaly.] [No JVD.] Rel atively dry mucous membranes. No oropharyngeal thrush. Chest: Minimal fine crackles at the bases no rhonchi no wheezes. Cardiac Exam: Distant S1 and S2, no S3 gallop, 2/6 systolic murmur thought the precordium. Abdomen: [Soft, nontender, no megaly, no rebound, no guarding, normal bowel sounds.] Extremities: [No clubbing, no edema, no cyanosis.]Left foot lateral border wound did have a slough tissue some surrounding deep tissue injury no foul-smelling drainage, multiple toes amputations noted in both feet, Neurological Exam: [No focal neurologic deficit.] Alert and oriented 3 Psychiatric: Normal mood, affect and normal mental status examination. Skin: No rashes, however left foot is wrapped with sterile dressing. Results - Laboratory Findings CBC and BMP: 11/09/21 05:11 11/09/21 05:11 PT/INR, D-dimer PT 11.6 sec (9.0-12.0) 11/01/21 16:31 INR 1.1 (<1.2) 11/01/21 16:31 Abnormal lab findings: Abnormal Labs 11/01/21 11/01/21 11/01/21 16:31 16:31 16:31 WBC 3.3 L RBC Hgb Hct MCHC 30.7 L RDW 16.2 H Lymphocytes # ESR Sodium 134 L Potassium Chloride Carbon Dioxide 31 H BUN 27 H Creatinine 1.71 H Glucose 125 H POC Glucose (mg/dL) Calcium Iron TIBC % Saturation Transferrin AST ALT Alkaline Phosphatase Troponin I C-Reactive Protein Albumin 3.1 L Procalcitonin Urine Appearance Cloudy H Urine Protein 1+ H Urine Blood Moderate H Urine Nitrite Positive H Ur Leukocyte Esterase Large H Urine RBC 8 H Urine WBC >182 H Urine WBC Clumps Moderate H Urine Bacteria Occasional H Urine Mucus Few H Urine Opiates Screen Detected H 11/01/21 11/01/21 11/01/21 16:31 18:08 20:40 WBC RBC Hgb Hct MCHC RDW Lymphocytes # ESR Sodium Potassium Chloride Carbon Dioxide BUN Creatinine Glucose POC Glucose (mg/dL) 197 H Calcium Iron TIBC % Saturation Transferrin AST ALT Alkaline Phosphatase Troponin I 0.256 H* 0.303 H* C-Reactive Protein Albumin Procalcitonin Urine Appearance Urine Protein Urine Blood Urine Nitrite Ur Leukocyte Esterase Urine RBC Urine WBC Urine WBC Clumps Urine Bacteria Urine Mucus Urine Opiates Screen 11/01/21 11/02/21 11/02/21 21:00 06:10 08:12 WBC RBC 3.25 L Hgb 9.4 L D Hct 29.3 L MCHC RDW 16.2 H Lymphocytes # ESR Sodium Potassium Chloride Carbon Dioxide BUN Creatinine Glucose POC Glucose (mg/dL) 113 H Calcium Iron TIBC % Saturation Transferrin AST ALT Alkaline Phosphatase Troponin I 0.264 H* C-Reactive Protein Albumin Procalcitonin Urine Appearance Urine Protein Urine Blood Urine Nitrite Ur Leukocyte Esterase Urine RBC Urine WBC Urine WBC Clumps Urine Bacteria Urine Mucus Urine Opiates Screen 11/02/21 11/02/21 11/02/21 08:12 11:48 16:26 WBC RBC Hgb Hct MCHC RDW Lymphocytes # ESR Sodium Potassium Chloride Carbon Dioxide BUN 28 H Creatinine 1.57 H Glucose 107 H POC Glucose (mg/dL) 170 H 261 H Calcium Iron TIBC % Saturation Transferrin AST ALT Alkaline Phosphatase Troponin I C-Reactive Protein Albumin 2.7 L Procalcitonin Urine Appearance Urine Protein Urine Blood Urine Nitrite Ur Leukocyte Esterase Urine RBC Urine WBC Urine WBC Clumps Urine Bacteria Urine Mucus Urine Opiates Screen 11/02/21 11/03/21 11/03/21 20:36 05:57 09:56 WBC RBC Hgb Hct MCHC RDW Lymphocytes # ESR Sodium Potassium Chloride Carbon Dioxide BUN Creatinine Glucose POC Glucose (mg/dL) 225 H 175 H 158 H Calcium Iron TIBC % Saturation Transferrin AST ALT Alkaline Phosphatase Troponin I C-Reactive Protein Albumin Procalcitonin Urine Appearance Urine Protein Urine Blood Urine Nitrite Ur Leukocyte Esterase Urine RBC Urine WBC Urine WBC Clumps Urine Bacteria Urine Mucus Urine Opiates Screen 11/03/21 11/03/21 11/03/21 11:37 16:45 20:20 WBC RBC Hgb Hct MCHC RDW Lymphocytes # ESR Sodium Potassium Chloride Carbon Dioxide BUN Creatinine Glucose POC Glucose (mg/dL) 214 H 249 H 191 H Calcium Iron TIBC % Saturation Transferrin AST ALT Alkaline Phosphatase Troponin I C-Reactive Protein Albumin Procalcitonin Urine Appearance Urine Protein Urine Blood Urine Nitrite Ur Leukocyte Esterase Urine RBC Urine WBC Urine WBC Clumps Urine Bacteria Urine Mucus Urine Opiates Screen 11/04/21 11/04/21 11/04/21 06:34 06:55 06:55 WBC RBC 2.54 L Hgb 7.4 L D Hct 23.7 L MCHC RDW 16.2 H Lymphocytes # ESR Sodium Potassium Chloride Carbon Dioxide BUN Creatinine Glucose POC Glucose (mg/dL) 164 H Calcium Iron 9 L TIBC 227 L % Saturation 3.97 L Transferrin 162.0 L AST ALT Alkaline Phosphatase Troponin I C-Reactive Protein Albumin Procalcitonin Urine Appearance Urine Protein Urine Blood Urine Nitrite Ur Leukocyte Esterase Urine RBC Urine WBC Urine WBC Clumps Urine Bacteria Urine Mucus Urine Opiates Screen 11/04/21 11/04/21 11/04/21 11:42 14:36 16:40 WBC RBC 2.60 L Hgb 7.5 L Hct 24.3 L MCHC RDW 16.0 H Lymphocytes # ESR Sodium Potassium Chloride Carbon Dioxide BUN Creatinine Glucose POC Glucose (mg/dL) 208 H 212 H Calcium Iron TIBC % Saturation Transferrin AST ALT Alkaline Phosphatase Troponin I C-Reactive Protein Albumin Procalcitonin Urine Appearance Urine Protein Urine Blood Urine Nitrite Ur Leukocyte Esterase Urine RBC Urine WBC Urine WBC Clumps Urine Bacteria Urine Mucus Urine Opiates Screen 11/04/21 11/05/21 11/05/21 20:17 06:15 07:12 WBC RBC 2.65 L Hgb 7.6 L Hct 24.8 L MCHC 30.7 L RDW 16.0 H Lymphocytes # ESR Sodium Potassium Chloride Carbon Dioxide BUN Creatinine Glucose POC Glucose (mg/dL) 208 H 149 H Calcium Iron TIBC % Saturation Transferrin AST ALT Alkaline Phosphatase Troponin I C-Reactive Protein Albumin Procalcitonin Urine Appearance Urine Protein Urine Blood Urine Nitrite Ur Leukocyte Esterase Urine RBC Urine WBC Urine WBC Clumps Urine Bacteria Urine Mucus Urine Opiates Screen 11/05/21 11/05/21 11/05/21 07:12 11:31 13:32 WBC RBC Hgb Hct MCHC RDW Lymphocytes # ESR Sodium 134 L Potassium 5.2 H Chloride Carbon Dioxide 17 L BUN 38 H Creatinine 1.81 H Glucose 127 H POC Glucose (mg/dL) 175 H 159 H Calcium 8.0 L Iron TIBC % Saturation Transferrin AST ALT Alkaline Phosphatase Troponin I C-Reactive Protein Albumin Procalcitonin Urine Appearance Urine Protein Urine Blood Urine Nitrite Ur Leukocyte Esterase Urine RBC Urine WBC Urine WBC Clumps Urine Bacteria Urine Mucus Urine Opiates Screen 11/05/21 11/05/21 11/06/21 16:24 19:59 07:25 WBC RBC 2.92 L Hgb 8.3 L Hct 27.2 L MCHC 30.6 L RDW 16.0 H Lymphocytes # 0.9 L ESR Sodium Potassium Chloride Carbon Dioxide BUN Creatinine Glucose POC Glucose (mg/dL) 153 H 137 H Calcium Iron TIBC % Saturation Transferrin AST ALT Alkaline Phosphatase Troponin I C-Reactive Protein Albumin Procalcitonin Urine Appearance Urine Protein Urine Blood Urine Nitrite Ur Leukocyte Esterase Urine RBC Urine WBC Urine WBC Clumps Urine Bacteria Urine Mucus Urine Opiates Screen 11/06/21 11/06/21 11/06/21 07:25 11:41 16:21 WBC RBC Hgb Hct MCHC RDW Lymphocytes # ESR Sodium 136 L Potassium Chloride Carbon Dioxide 21 L BUN 38 H Creatinine 1.64 H Glucose 103 H POC Glucose (mg/dL) 136 H 142 H Calcium 8.0 L Iron TIBC % Saturation Transferrin AST ALT Alkaline Phosphatase Troponin I C-Reactive Protein Albumin Procalcitonin Urine Appearance Urine Protein Urine Blood Urine Nitrite Ur Leukocyte Esterase Urine RBC Urine WBC Urine WBC Clumps Urine Bacteria Urine Mucus Urine Opiates Screen 11/06/21 11/07/21 11/07/21 20:06 06:12 08:46 WBC RBC Hgb Hct MCHC RDW Lymphocytes # ESR Sodium 133 L Potassium Chloride Carbon Dioxide BUN 33 H Creatinine 1.59 H Glucose 113 H POC Glucose (mg/dL) 195 H 147 H Calcium 7.5 L Iron TIBC % Saturation Transferrin AST ALT Alkaline Phosphatase Troponin I C-Reactive Protein Albumin Procalcitonin Urine Appearance Urine Protein Urine Blood Urine Nitrite Ur Leukocyte Esterase Urine RBC Urine WBC Urine WBC Clumps Urine Bacteria Urine Mucus Urine Opiates Screen 11/07/21 11/07/21 11/07/21 08:46 11:21 16:42 WBC RBC 2.66 L Hgb 7.7 L Hct 24.5 L MCHC RDW 16.3 H Lymphocytes # ESR Sodium Potassium Chloride Carbon Dioxide BUN Creatinine Glucose POC Glucose (mg/dL) 130 H 113 H Calcium Iron TIBC % Saturation Transferrin AST ALT Alkaline Phosphatase Troponin I C-Reactive Protein Albumin Procalcitonin Urine Appearance Urine Protein Urine Blood Urine Nitrite Ur Leukocyte Esterase Urine RBC Urine WBC Urine WBC Clumps Urine Bacteria Urine Mucus Urine Opiates Screen 11/07/21 11/08/21 11/08/21 20:17 06:04 06:04 WBC RBC Hgb Hct MCHC RDW Lymphocytes # ESR 125 H Sodium 133 L Potassium Chloride 97 L Carbon Dioxide BUN 29 H Creatinine 1.50 H Glucose 100 H POC Glucose (mg/dL) 167 H Calcium 7.7 L Iron TIBC % Saturation Transferrin AST ALT Alkaline Phosphatase Troponin I C-Reactive Protein Albumin Procalcitonin Urine Appearance Urine Protein Urine Blood Urine Nitrite Ur Leukocyte Esterase Urine RBC Urine WBC Urine WBC Clumps Urine Bacteria Urine Mucus Urine Opiates Screen 11/08/21 11/08/21 11/08/21 06:04 06:04 16:34 WBC RBC Hgb Hct MCHC RDW Lymphocytes # ESR Sodium Potassium Chloride Carbon Dioxide BUN Creatinine Glucose POC Glucose (mg/dL) 126 H Calcium Iron TIBC % Saturation Transferrin AST ALT Alkaline Phosphatase Troponin I C-Reactive Protein 19.6 H Albumin Procalcitonin 3.90 H Urine Appearance Urine Protein Urine Blood Urine Nitrite Ur Leukocyte Esterase Urine RBC Urine WBC Urine WBC Clumps Urine Bacteria Urine Mucus Urine Opiates Screen 11/08/21 11/09/21 11/09/21 19:50 05:11 05:11 WBC RBC 3.29 L Hgb 9.0 L Hct 31.1 L MCHC 29.0 L RDW 16.4 H Lymphocytes # ESR Sodium 133 L Potassium Chloride Carbon Dioxide BUN 26 H Creatinine 1.54 H Glucose 106 H POC Glucose (mg/dL) 127 H Calcium 7.9 L Iron TIBC % Saturation Transferrin AST 606 H ALT 439 H Alkaline Phosphatase 312 H Troponin I C-Reactive Protein Albumin 2.8 L Procalcitonin Urine Appearance Urine Protein Urine Blood Urine Nitrite Ur Leukocyte Esterase Urine RBC Urine WBC Urine WBC Clumps Urine Bacteria Urine Mucus Urine Opiates Screen 11/09/21 12:04 WBC RBC Hgb Hct MCHC RDW Lymphocytes # ESR Sodium Potassium Chloride Carbon Dioxide BUN Creatinine Glucose POC Glucose (mg/dL) 143 H Calcium Iron TIBC % Saturation Transferrin AST ALT Alkaline Phosphatase Troponin I C-Reactive Protein Albumin Procalcitonin Urine Appearance Urine Protein Urine Blood Urine Nitrite Ur Leukocyte Esterase Urine RBC Urine WBC Urine WBC Clumps Urine Bacteria Urine Mucus Urine Opiates Screen - Diagnostic Findings CT scan - chest: image reviewed (Patchy consolidations in bilateral lungs noted. Again it is hard to tell whether this is pneumonia related or CHF related. Small bilateral pleural effusions noted.) Assessment and Plan Assessment: Impression: Acute metabolic encephalopathy, improving Acute on chronic systolic congestive heart failure, possible hospital healthcare or hospital-acquired pneumonia Osteomyelitis of left foot, chronic Severe ischemic cardiomyopathy with LV dysfunction and ejection fraction of 30% Paroxysmal atrial fibrillation Benign essential hypertension History of CVA Chronic kidney disease Type 2 diabetes with neuropathy and nephropathy History of hypertension Dyslipidemia Recommendation: Agree fully with the present treatment plan Continue diuretics Continue antibiotics Continue eliquis statins and beta blockers and amiodarone Continue bronchodilators Follow-up chest x-ray in the next few days. We'll continue to follow. Time with Patient: Greater than 30
[2021-11-09 16:50] LABS: Glucose,Whole Blood 191 mg/dL (70-110)
[2021-11-09 18:28] LABS: Appearance,Urine Clear (Clear); Bilirubin,Urine Negative (Negative); Blood,Urine Trace (Negative); Color,Urine Yellow; Glucose,Urine (UA) Negative (Negative); Hyaline Casts,Urine 7 /lpf (0-2); Ketones,Urine Negative (Negative); Leukocyte Esterase,Urine Negative (Negative); Mucus,Urine Rare /hpf; Nitrite,Urine Negative (Negative); PH, Urine 5.5 (5.0-8.0); Protein,Urine 2+ (Negative); RBC,Urine 1 /hpf (0-5); Specific Gravity,Urine 1.012 (1.001-1.035); Urobilinogen,Urine <2.0 mg/dL (<2.0); WBC,Urine 2 /hpf (0-5)
--- NOTE | 2021-11-09 18:46 | P.PN ---
Subjective Progress Note Date: 11/09/21 This is a 71-year-old female patient of Dr. Sanderson with past medical history of diabetes mellitus type 2, hypertension, hyperlipidemia, CVA in 2013 with no residuals, coronary artery disease status post 4 vessel CABG, bilateral carotid endarterectomies, mild intermittent asthma, osteomyelitis status post right great toe amputation 2014 and left toe amputation and left big toe amputation as well. Patient was hospitalized recently at [facility] for osteomyelitis and severe cellulitis of the left foot require debridement status post debridement by Dr. Gregory patient was placed on IV antibiotics apparently in the form of daptomycin by Dr. Mccabe. Note the patient's was also recently hospitalized at [facility] and he has subsequently passed last week. Patient apparently came into [facility] by EMS due to altered mental status as well as clinical decline since her discharge from [facility]. She has had multiple falls has been lethargic. Patient was found to be afebrile, heart rate 90, blood pressure 121/67, pulse ox 96% on room air. EKG sinus tachycardia. WBC 3.3, hemoglobin 13.1, platelet count 184. Sodium 134, potassium 3.7, chloride 90, CO2 31, BUN 27 creatinine 1.71. Blood sugar 125. INR 1.1. Urinalysis blood moderate, nitrate positive, leukoesterase large, WBC greater than 182, WBC clumps moderate, bacteria occasional. Urine drug screen was positive for opiates. Lactic acid 0.8. Liver function tests were normal. Ammonia level less than 9. Troponin 0.256, 0.303, 0.264. TSH 1.87. Albumin 3.1. Salicylate level less than 1 and acetaminophen level less than 10. Serum alcohol level less than 10. ProBNP 20,500 Chest x-ray reveals no definite acute process. CAT scan of the brain revealed no acute intracranial process. Similar remote temporal lobe injury along with right basal ganglia injury. Left foot x-ray reveals no fracture or malalignment. Patient was provided a half liter of IV fluid, 1 dose of ceftriaxone, admitted to the cardiac stepdown unit and consults with Dr. Gregory and Dr. Mccabe. 11/03: Patient is doing much better today, while more energetic, she was able to ambulate, without any assist devices, not leaning towards the left side as noted by the daughter, urine culture growing 2 gram-negative bacilli, sensitivities currently pending. No fever, however T-max of 99 2, stable vital signs, systolic 1:15, pulse ox 2 L, 96%. Wound is being followed surgically, by Dr. Gregory, Dr. Calvin is still following her for infection. She is still on IV Rocephin, and daptomycin. Obtain kidney ultrasound, evaluate for nephrolithiasis or infected kidney stones. 11/04, patient was seen a bit drowsy today, patient did not sleep well last night, however they've given her her home dose Xanax 1 mg later at night, as the patient is not sleeping, this is her normal 1 mg home dose, the patient has still to process the of the who less than 2 weeks ago, we have offered her the Xanax 0.5 3 times a day when necessary, however this is not taken. Patient was seen drowsy today, answers to questions, however she would drift off back to sleep. Hemoglobin also was dropping significantly, from an entry hemoglobin 13, to current hemoglobin of 7.3. No GI losses are noted, patient does not have any headache, or in the process of obtaining Hemoccult stools, CAT scan of the brain without contrast, patient might need BiPAP if not any better, she might need blood gases. Blood sugars and blood pressures are stable, patient had a T-max of 101 yesterday, renal ultrasound failed to reveal any stone, no hydronephrosis, hold discharge today secondary to somnolence, and hemoglobin drop and the fever blood cultures has been sent to 92% on 5 L nasal cannula, patient's on IV Rocephin for UTI, and daptomycin, for osteomyelitis left foot urine culture, growing Klebsiella pneumonia resistant to ampicillin, , Proteus mirabilis, resistant to nitrofurantoin and tetracycline. We've held gabapentin, and Xanax home dose held, and [place] was held, secondary to hypersomnolence 11/05/2021 Picking up coverage for Dr. Thompson today. Patient is evaluated today resting in bed. She continues to be drowsy but is alert. She reports feeling sleepy today. Her main complaint is pain to her left foot, currently is dressed with kerlex. She continues on IV antibiotics in the form of daptomycin and ceftriaxone. Infectious disease is following patient. Urine culture showing klebsiella and proteus. Blood culture negative so far. Hemoglobin remains stable at 7.6, no signs of acute bleeding, she received 2 doses of IV ferrlecit. Sodium today 134, potassium 5.2, BUN 38, creatinine 1.81. Blood glucose in the 150s. Patient is now requiring 5L nasal cannula and chest xray follow up completed showing vascular congestion versus pneumonia. Repeat BNP found to be 77,600 will give a dose of IV lasix. Fluids have been discontinued, patient dose have an EF of 30 to 35%. Cardiology is following the patient closely. Vascular surgery is following the patient and recommends to continue santyl cream daily to lateral left foot recommending vascular intervention when stable. 11/06/2021 Patient reports breathing has improved today, she is more awake. She is alert x 3, family at the bedside. She received a dose of IV lasix last night and today oxygen saturations have improved to 96%. Creatinine also improved down to 1.64. She has been resumed on oral lasix by cardiology today. Continues on iv daptomycin, iv ceftriaxone. Infectious disease following. Cardiology has discussed AICD with patient. Labs reviewed white count 8.7, hgb improved 8.3. Sodium 136, potassium 4.5, BUN 38, creatinine 1.64, blood glucose in the 140s, calcium 8.0, magnesium 1.7. 11/07/2021 Patient evaluated today she is slightly confused but is able to state her name, , location and she is able to tell me what brought her into the hospital. Overnight oxygen demand increased and she is now on 9L Hi flow cannula with oxygen saturation in the mid 90s. She did receive a 20 mg IV lasix dose around 0400, Cardiology has started patient on IV lasix 40 Q12. Repeat chest xray showing pleural effusion correlate for pulmonary edema consider diffuse pneumonia. Images refused and effusion appears worsening in the right lung. Labs today showing white count 5.9, hgb 7.7, sodium 133, potassium 4.4, BUN 33, creatinine 1.59, blood glucose in the 130s, calcium 7.5, magnesium 1.8. Covid is negative. She is afebrile, blood pressure 126/66. Infectious disease is following. She continues on IV daptomycin, IV ceftriaxone. 11/08/2021 Patient is seen in follow-up this morning continues to be confused although able to answer some questions appropriately. Multiple medical consultations following including vascular surgery, infectious disease, cardiology. Patient continues with shortness of breath and is maintained on IV Lasix. Patient continues to require oxygen at 8 L high flow although found on exam on room air today as she continues to remove her oxygen. Encourage the patient along with nursing staff to continue oxygen supplementation. Wean as tolerated. Patient was maintained on when necessary breathing treatments although will make scheduled and continue with when necessary. Will consult pulmonary with concerns for pneumonia. Patient reports she is eating although unsure of how accurate this is. Will also order incentive spirometer. Also order pro calcitonin along with sputum culture, repeat urinalysis, sed rate, CRP and follow-up on labs. Will also add performer wrist and again will consult pulmonary and appreciate input and recommendations. CT of the chest is ordered. Most recent CBC yesterday was 7.7 and will follow-up with repeat labs as well. Patient is afebrile and denies chest pain at this time. Daughter called the nurse asking to restart her gabapentin although given her confusion will monitor closely at this time. Patient is extremely weak and will have physical therapy evaluate the patient. Also recommend orthostatic vital signs. 11/09/2021 Patient is seen and evaluated today and appears more awake and alert. Patient continues with weakness and is working with PT/OT. Multiple medical consultations following and have consulted pulmonary and appreciate input and recommendations. Patient is continued on IV antibiotics along with IV lasix and will continue. Continue to encourage incentive spirometer and breathing treatments. Encouraged oral intake and increased activity as tolerated. Patient is afebrile and denies worsening shortness of breath. Patient denies chest pain. LFT's noted to be significantly elevated along with procalcitonin. Patient does have picc for osteo of the left foot. Review of Systems Constitutional: Reports fatigue. denied any fever. Cardio vascular: denied any chest pain, palpitations Gastrointestinal: denied any nausea, vomiting, diarrhea Pulmonary: Denied any worsening shortness of breath cough Neurologic denied any new focal deficits, reports some bilateral foot pain Active Medications Albuterol/Ipratropium (Ipratropium-Albuterol 3 Ml Neb) 3 ml INHALATION RT-Q4H PRN PRN Reason: Shortness Of Breath Or Wheezing Last Admin: 11/08/21 08:03 Dose: 3 ml Albuterol/Ipratropium (Ipratropium-Albuterol 3 Ml Neb) 3 ml INHALATION RT-QID [facility] Last Admin: 11/09/21 16:37 Dose: 3 ml Amiodarone HCl (Amiodarone 200 Mg Tab) 200 mg PO DAILY [facility] Last Admin: 11/09/21 08:42 Dose: 200 mg Apixaban (Apixaban 2.5 Mg Tablet) 2.5 mg PO BID [facility]; Protocol Last Admin: 11/09/21 08:42 Dose: 2.5 mg Budesonide (Budesonide 0.25 Mg/2 Ml Nebu) 0.25 mg INHALATION RT-BID [facility] Last Admin: 11/09/21 08:02 Dose: 0.25 mg Collagenase (Collagenase 250 Unit/Gm Ointment 30 Gm Tube) 1 applic TOPICAL HS [facility]; Protocol Last Admin: 11/08/21 20:14 Dose: 1 applic Duloxetine HCl (Duloxetine Hcl 60 Mg Capsule.Dr) 60 mg PO DAILY [facility] Last Admin: 11/09/21 08:41 Dose: 60 mg Folic Acid (Folic Acid 1 Mg Tab) 1 mg PO DAILY@1200 [facility] Last Admin: 11/09/21 08:41 Dose: 1 mg Formoterol Fumarate (Formoterol Fumarate 20 Mcg/2 Ml Nebu) 20 mcg INHALATION RT-BID [facility] Last Admin: 11/09/21 08:02 Dose: 20 mcg Furosemide (Furosemide 10 Mg/Ml 4 Ml Vial) 40 mg IV Q12HR [facility] Last Admin: 11/09/21 08:41 Dose: 40 mg Ceftriaxone Sodium 1 gm/ (Sodium Chloride) 50 mls @ 100 mls/hr IVPB Q24H [facility]; Protocol Last Admin: 11/08/21 23:46 Dose: 100 mls/hr Daptomycin 500 mg/ Sodium (Chloride) 50 mls @ 100 mls/hr IVPB Q24H [facility]; Protocol Last Admin: 11/09/21 08:42 Dose: 100 mls/hr Insulin Aspart (Insulin Aspart (Novolog) 100 Unit/Ml Vial) 0 unit SQ ACHS [facility]; Protocol Last Admin: 11/09/21 17:30 Dose: 2 unit Insulin Detemir (Insulin Detemir (Levemir) 100 Unit/Ml Syr) 8 unit SQ DAILY@0700 [facility] Last Admin: 11/09/21 06:16 Dose: 8 unit Magnesium Oxide (Magnesium Oxide 400 Mg Tab) 400 mg PO DAILY [facility] Last Admin: 11/09/21 08:41 Dose: 400 mg Melatonin (Melatonin 3 Mg Tablet) 6 mg PO [facility] Last Admin: 11/08/21 20:14 Dose: 6 mg Metoprolol Tartrate (Metoprolol Tartrate 25 Mg Tab) 25 mg PO HS [facility] Last Admin: 11/08/21 20:14 Dose: 25 mg Miscellaneous Information (Magnesium Replacement Protocol 1 Each Misc) 1 each MISCELLANE DAILY PRN; Protocol PRN Reason: Per Protocol Miscellaneous Information (Magnesium Replacement Protocol 1 Each Misc) 1 each MISCELLANE DAILY PRN; Protocol PRN Reason: Per Protocol Montelukast Sodium (Montelukast 10 Mg Tab) 10 mg PO [facility] Last Admin: 11/08/21 20:13 Dose: 10 mg Multivitamins (Multivitamins, Thera 1 Each Tab) 1 each PO DAILY@1200 [facility] Last Admin: 11/09/21 08:41 Dose: 1 each Naloxone HCl (Naloxone 0.4 Mg/Ml 1 Ml Vial) 0.2 mg IV Q2M PRN PRN Reason: Opioid Reversal Non-Formulary Medication (Lumateperone Tosylate [Caplyta]) 42 mg PO DAILY [facility] Last Admin: 11/09/21 08:42 Dose: Not Given Ondansetron HCl (Ondansetron 4 Mg/2 Ml Vial) 4 mg IVP Q6HR PRN PRN Reason: Nausea And Vomiting Last Admin: 11/06/21 12:46 Dose: 4 mg Thiamine HCl (Thiamine 100 Mg Tab) 100 mg PO DAILY@1200 [facility] Last Admin: 11/09/21 08:41 Dose: 100 mg Physical Examination Gen: This is a 71 year-old obese female. sitting up more awake and alert, currently maintained on 4L via NC She is alert x 2, less confused. HEENT: Head is atraumatic, normocephalic. Pupils equal, round. Sclerae is anicteric. NECK: Supple. No JVD. No lymphadenopathy. No thyromegaly. LUNGS: Lungs are diminished bilaterally more so on the right with some scattered rhonchi and fine crackles noted at the bases HEART: S1, S2 are muffled ABDOMEN: Soft. Bowel sounds are present. No masses. No tenderness. EXTREMITIES: No pedal edema. No calf tenderness. Right great toe amputation, right second toe has small abrasion. Left foot dressed in kerlex NEUROLOGICAL: Patient is awake, alert and oriented to person and place. Cranial nerves 2 through 12 are grossly intact. Diffusely weak Assessment: -Acute hypoxic respiratory failure secondary to acute CHF exacerbation -Possible right lobe pneumonia -Elevated LFT's -Acute kidney injury and chronic kidney disease stage III -acute on Chronic systolic and diastolic heart failure, acute exacerbation -Acute metabolic encephalopathy secondary to sepsis and osteomyelitis, improved -Osteomyelitis in the left foot -Urinary tract infection, present on admission with Proteus mirabilis and Kleb siella pneumonia noted in the cultures -Elevated troponins, likely from infection, ACS ruled out by cardiology. -Ischemic cardiomyopathy with EF 30% -COPD without exacerbation. -Paroxysmal atrial fibrillation. -Coronary artery disease with history of 4 vessel CABG in 2014, PCI in 2020 -Diabetes Mellitus type 2 -History of DVT and pulmonary embolism. -History of CVA and mild memory loss. -History of Hypertension -Hyperlipidemia -Diabetic neuropathy -Anxiety/depression exacerbated by recent loss of her -History of PVD with previous vascular stenting -GI prophylaxis. Protonix. -DVT prophylaxis. Eliquis. -CODE STATUS: NO code. Plan: Recommend continue with current medications and management and IV antibiotics with ID following. Patient is maintained on IV Lasix twice daily with cardiology following and have consulted pulmonary. Patient continues with shortness of breath although has been weaning FI02 as tolerated. Patient is down to 4L vi NC. CT of the chest shows patchy findings and possibly some infectious process with it being greater on the right with some bilateral pleural effusions and pulmonary edema noted. Suspicious for Covid or previous infection although c ovid pcr was negative. Patient reports she is eating and encouraged oral intake. Patient continues with extreme weakness and physical therapy following. Mentation is improving. LFT elevated significantly from previous and will avoid nephrotoxic agents. Vascular surgery following an recommend continue with wound care and will have close outpatient follow-up. Social work following and patient and family are adamant about going home on discharge. Recommend repeat labs. Due to multiple complex medical issues, prognosis is extremely guarded. The impression and plan of care has been dictated by Lauren Castaneda, Nurse Practitioner as directed. Dr. Yeison MD I have performed a history and examination and MDM of this patient, discussed the same with the dictator, and agree with the dictator's assessment and plan as written ,documented as a scribe. Based on total visit time, I have performed more than 50% of the visit. Objective - Vital Signs Vital signs: Vital Signs Temp 97.8 F 11/09/21 08:00 Pulse 84 11/09/21 08:24 Resp 18 11/09/21 09:06 BP 145/67 11/09/21 08:00 Pulse Ox 97 11/09/21 09:06 FiO2 Intake & Output 11/08/21 11/09/21 11/09/21 18:59 06:59 18:59 Intake Total 10 Output Total 750 Balance -750 10 Weight 68.5 kg Intake: IV 10 Invasive Line 2 10 Oral 0 Output: Urine 750 Other: Voiding Method Diaper External Catheter External Catheter External Catheter # Voids 1 - Labs CBC & Chem 7: 11/09/21 05:11 11/09/21 05:11 Labs: Abnormal Lab Results - Last 24 Hours (Table) 11/08/21 11/08/21 11/08/21 Range/Units 06:04 06:04 06:04 RBC (3.80-5.40) m/uL Hgb (11.4-16.0) gm/dL Hct (34.0-46.0) % MCHC (31.0-37.0) g/dL RDW (11.5-15.5) % ESR 125 H (0-20) mm/hr Sodium (137-145) mmol/L BUN (7-17) mg/dL Creatinine (0.52-1.04) mg/dL Glucose (74-99) mg/dL POC Glucose (mg/dL) (70-110) mg/dL Calcium (8.4-10.2) mg/dL AST (14-36) U/L ALT (4-34) U/L Alkaline Phosphatase (38-126) U/L C-Reactive Protein 19.6 H (<1.0) mg/dL Albumin (3.5-5.0) g/dL Procalcitonin 3.90 H (0.02-0.09) ng/mL 11/08/21 11/08/21 11/09/21 Range/Units 16:34 19:50 05:11 RBC 3.29 L (3.80-5.40) m/uL Hgb 9.0 L (11.4-16.0) gm/dL Hct 31.1 L (34.0-46.0) % MCHC 29.0 L (31.0-37.0) g/dL RDW 16.4 H (11.5-15.5) % ESR (0-20) mm/hr Sodium (137-145) mmol/L BUN (7-17) mg/dL Creatinine (0.52-1.04) mg/dL Glucose (74-99) mg/dL POC Glucose (mg/dL) 126 H 127 H (70-110) mg/dL Calcium (8.4-10.2) mg/dL AST (14-36) U/L ALT (4-34) U/L Alkaline Phosphatase (38-126) U/L C-Reactive Protein (<1.0) mg/dL Albumin (3.5-5.0) g/dL Procalcitonin (0.02-0.09) ng/mL 11/09/21 Range/Units 05:11 RBC (3.80-5.40) m/uL Hgb (11.4-16.0) gm/dL Hct (34.0-46.0) % MCHC (31.0-37.0) g/dL RDW (11.5-15.5) % ESR (0-20) mm/hr Sodium 133 L (137-145) mmol/L BUN 26 H (7-17) mg/dL Creatinine 1.54 H (0.52-1.04) mg/dL Glucose 106 H (74-99) mg/dL POC Glucose (mg/dL) (70-110) mg/dL Calcium 7.9 L (8.4-10.2) mg/dL AST 606 H (14-36) U/L ALT 439 H (4-34) U/L Alkaline Phosphatase 312 H (38-126) U/L C-Reactive Protein (<1.0) mg/dL Albumin 2.8 L (3.5-5.0) g/dL Procalcitonin (0.02-0.09) ng/mL Microbiology - Last 24 Hours (Table) 11/03/21 19:41 Blood Culture - Preliminary Blood No Growth after 120 hours
[2021-11-09 20:07] LABS: Glucose,Whole Blood 209 mg/dL (70-110)
[2021-11-09] MEDS ORDERED: ATORVASTATIN 40 MG TAB PO SCH (21:00)
[2021-11-09] MEDS: MELATONIN 3 MG TABLET PO SCH (21:12)
[2021-11-09] MEDS: METOPROLOL TARTRATE 25 MG TAB PO SCH (21:12)
[2021-11-09] MEDS: COLLAGENASE 250 UNIT/GM OINTMENT 30 GM TUBE TOPICAL SCH (21:12)
[2021-11-09] MEDS: MONTELUKAST 10 MG TAB PO SCH (21:12)
--- NOTE | 2021-11-09 21:50 | P.PN ---
Subjective Progress Note Date: 11/09/21 Principal diagnosis: Left foot osteo-myelitis and a UTI Patient is a 71-year-old female who was recently admitted at [facility] with left diabetic foot infection status post debridement with evidence of Osteomyelitis culture positive for MRSA for the patient was receiving daptomycin subsequently admitted to the hospital with mental status changes did have a component of dehydration and UTI. On today's evaluation dated 11/09/2021, the patient continues to be afebrile, the patient denies chest pain, the patient is breathing comfortably on nasal cannula oxygen, patient denies any cough or sputum production abdominal pain no diarrhea Objective - Vital Signs Vital signs: Vital Signs Temp 97.2 F L 11/09/21 12:44 Pulse 80 11/09/21 12:44 Resp 18 11/09/21 12:44 BP 121/60 11/09/21 12:44 Pulse Ox 96 11/09/21 12:44 FiO2 Intake & Output 11/08/21 11/09/21 11/09/21 18:59 06:59 18:59 Intake Total 10 Output Total 750 Balance -750 10 Weight 68.5 kg 68.5 kg Intake: IV 10 Invasive Line 2 10 Oral 0 Output: Urine 750 Other: Voiding Method Diaper External Catheter External Catheter External Catheter # Voids 1 - Exam GENERAL DESCRIPTION: An elderly female lying in bed in no distress RESPIRATORY SYSTEM: Unlabored breathing , decreased breath sounds at bases HEART: S1 S2 regular rate and rhythm , ABDOMEN: Soft , no tenderness EXTREMITIES: Left foot is currently dressed no drainage on the dressing - Labs CBC & Chem 7: 11/09/21 05:11 11/09/21 05:11 Labs: Abnormal Lab Results - Last 24 Hours (Table) 11/08/21 11/08/21 11/08/21 Range/Units 06:04 06:04 06:04 RBC (3.80-5.40) m/uL Hgb (11.4-16.0) gm/dL Hct (34.0-46.0) % MCHC (31.0-37.0) g/dL RDW (11.5-15.5) % ESR 125 H (0-20) mm/hr Sodium (137-145) mmol/L BUN (7-17) mg/dL Creatinine (0.52-1.04) mg/dL Glucose (74-99) mg/dL POC Glucose (mg/dL) (70-110) mg/dL Calcium (8.4-10.2) mg/dL AST (14-36) U/L ALT (4-34) U/L Alkaline Phosphatase (38-126) U/L C-Reactive Protein 19.6 H (<1.0) mg/dL Albumin (3.5-5.0) g/dL Procalcitonin 3.90 H (0.02-0.09) ng/mL 11/08/21 11/08/21 11/09/21 Range/Units 16:34 19:50 05:11 RBC 3.29 L (3.80-5.40) m/uL Hgb 9.0 L (11.4-16.0) gm/dL Hct 31.1 L (34.0-46.0) % MCHC 29.0 L (31.0-37.0) g/dL RDW 16.4 H (11.5-15.5) % ESR (0-20) mm/hr Sodium (137-145) mmol/L BUN (7-17) mg/dL Creatinine (0.52-1.04) mg/dL Glucose (74-99) mg/dL POC Glucose (mg/dL) 126 H 127 H (70-110) mg/dL Calcium (8.4-10.2) mg/dL AST (14-36) U/L ALT (4-34) U/L Alkaline Phosphatase (38-126) U/L C-Reactive Protein (<1.0) mg/dL Albumin (3.5-5.0) g/dL Procalcitonin (0.02-0.09) ng/mL 11/09/21 11/09/21 Range/Units 05:11 12:04 RBC (3.80-5.40) m/uL Hgb (11.4-16.0) gm/dL Hct (34.0-46.0) % MCHC (31.0-37.0) g/dL RDW (11.5-15.5) % ESR (0-20) mm/hr Sodium 133 L (137-145) mmol/L BUN 26 H (7-17) mg/dL Creatinine 1.54 H (0.52-1.04) mg/dL Glucose 106 H (74-99) mg/dL POC Glucose (mg/dL) 143 H (70-110) mg/dL Calcium 7.9 L (8.4-10.2) mg/dL AST 606 H (14-36) U/L ALT 439 H (4-34) U/L Alkaline Phosphatase 312 H (38-126) U/L C-Reactive Protein (<1.0) mg/dL Albumin 2.8 L (3.5-5.0) g/dL Procalcitonin (0.02-0.09) ng/mL Microbiology - Last 24 Hours (Table) 11/03/21 19:41 Blood Culture - Preliminary Blood No Growth after 120 hours Assessment and Plan (1) Diabetic foot ulcer associated with type 2 diabetes mellitus Current Visit: Yes Status: Acute Code(s): E11.621 - TYPE 2 DIABETES MELLITUS WITH FOOT ULCER SNOMED Code(s): 5555560565539 (2) Urinary tract infection Current Visit: Yes Status: Acute Code(s): N39.0 - URINARY TRACT INFECTION, SITE NOT SPECIFIED SNOMED Code(s): 63693529 Plan: 1patient presented to hospital with weakness lethargy which is likely multifactorial in this patient did have a dehydration plus minus a component of urinary tract infection likely from enteric gram-negative pathogen. 2patient with a left diabetic foot infection with underlying osteomyelitis culture positive for MRSA at [facility]. 3local wound care to the left foot wound with the Santyl followed by moist dressing change daily and will continue with daptomycin for her left diabetic foot infections/Osteomyelitis 4the patient urine culture have been finalized with Klebsiella and Proteus, patient ultrasound was negative for any structural abnormality, the patient slowly clinically improving and will continue with Rocephin while in patient finishing therapy with oral Ceftin on discharge Time with Patient: Less than 30
[2021-11-10 05:29] LABS: Anisocytosis Slight; Basophils % (A) 0 %; Eosinophils # (A) 0.4 k/uL (0-0.7); Eosinophils % (A) 5 %; HCT 27.3 % (34.0-46.0); HGB 8.5 gm/dL (11.4-16.0); Hypochromasia Marked; Lymphocytes # (A) 1.8 k/uL (1.0-4.8); Lymphocytes % (A) 23 %; MCV 93.4 fL (80.0-100.0); Mean Platelet Volume 7.7; Monocytes # (A) 0.3 k/uL (0-1.0); Monocytes % (A) 4 %; Neutrophils # (A) 5.2 k/uL (1.3-7.7); Neutrophils % (A) 66 %; Platelet Count 314 k/uL (150-450); RBC 2.92 m/uL (3.80-5.40); RDW 17.1 % (11.5-15.5); WBC 7.8 k/uL (3.8-10.6)
[2021-11-10 05:59] LABS: Calcium 7.9 mg/dL (8.4-10.2); Potassium 4.1 mmol/L (3.5-5.1); Total Bilirubin 1.1 mg/dL (0.2-1.3); Total Protein 6.9 g/dL (6.3-8.2)
[2021-11-10 06:51] LABS: Glucose,Whole Blood 122 mg/dL (70-110)
[2021-11-10] MEDS: INSULIN ASPART (NovoLOG) 100 UNIT/ML VIAL SQ SCH ×4 (06:52→22:00)
[2021-11-10] MEDS: BUDESONIDE 0.25 MG/2 ML NEBU INHALATION SCH ×2 (07:21→19:02)
[2021-11-10] MEDS: FORMOTEROL FUMARATE 20 MCG/2 ML NEBU INHALATION SCH ×2 (07:22→19:01)
[2021-11-10] MEDS: IPRATROPIUM-ALBUTEROL 3 ML NEB INHALATION SCH ×4 (07:22→19:02)
[2021-11-10] MEDS: NON FORMULARY DRUG (Lumateperone Tosylate [Caplyta] 42 MG Capsule) PO SCH (07:56)
[2021-11-10] MEDS: INSULIN DETEMIR (LEVEMIR) 100 UNIT/ML SYR SQ SCH (07:57)
[2021-11-10] MEDS: APIXABAN 2.5 MG TABLET PO SCH ×2 (07:58→22:00)
[2021-11-10] MEDS: MAGNESIUM OXIDE 400 MG TAB PO SCH (07:58)
[2021-11-10] MEDS: DULoxetine HCL 60 MG CAPSULE.DR PO SCH (07:58)
[2021-11-10] MEDS: AMIODARONE 200 MG TAB PO SCH (07:59)
[2021-11-10] MEDS: FUROSEMIDE 10 MG/ML 4 ML VIAL IV SCH ×2 (07:59→22:00)
[2021-11-10] MEDS ORDERED: ATORVASTATIN 40 MG TAB PO SCH (09:00)
[2021-11-10 11:09] LABS: Glucose,Whole Blood 127 mg/dL (70-110)
--- NOTE | 2021-11-10 12:24 | P.PN ---
Subjective Progress Note Date: 11/10/21 Principal diagnosis: Dyspnea, altered mentation This is a 71-year-old female with history of multiple medical problems including type 2 diabetes, diabetic neuropathy and diabetic foot ulcers, hypertension, dyslipidemia, history of CVA in 2013, coronary artery disease and previous CABG 4 history of mild intermittent asthma, and history of chronic osteomyelitis of the right foot. Multiple amputations of toes from right and left foot. Patient was recently hospitalized at [facility] for osteomyelitis and cellulitis of the left foot requiring debridement and she was treated with daptomycin by infectious disease. Patient was admitted this time to [facility] on 11/02/2021, and her admission diagnosis was altered mental status, and metabolic encephalopathy. Since then the patient has been seen by many consultants including infectious disease, internal medicine, cardiology, and at one point she had a chest x-ray showing evidence of pulmonary edema. Patient was treated with diuretics, and recent follow-up chest x-ray and CT of the chest questioned underlying pneumonia. Hence this consult was initiated. Overall patient has been steadily improving since admission, her mental status is improving but nonetheless she remains confused at times. I reviewed the chest x-ray, I also reviewed the CT of the chest, it is rather difficult to tell how m uch of the findings are related to pulmonary edema or underlying pneumonia. However the patient is on diuretic she is also on antibiotics and seems to be responding well clinically, hence I'm not recommending any changes in her present course of treatment. Patient does have significantly elevated BNP she also has significantly elevated pro calcitonin. On 11/10/2021 patient seen in follow-up on medical surgical floor, she is awake and alert, oriented to place and time. She states she is feeling much better, she sits up in the recliner, breathing comfortable, vital signs are stable, patient is afebrile, room air pulse ox is 98%. Her chest x-ray from yesterday showed improving bilateral diffuse lung infiltrates. She continues on diuretics, and antibiotics for left foot osteomyelitis in the form of ceftriaxone and daptomycin. ID service is following. Today's labs have been reviewed, white blood cell count is 7.8, hemoglobin is 8.5, sodium is 133, the rest of the electrolytes are within normal limits, renal function shows slight worsening of creatinine, which is up to 1.62, BUN is 25. Pro calcitonin level came back elevated at 3.90, CRP was 19.6, urinalysis showed acute urinary tract infection, follow-up urinalysis shows no evidence of infection, COVID-19 PCR was negative. Urine culture showed Klebsiella pneumonia and Proteus mild was, blood cultures have been negative. Objective - Vital Signs Vital signs: Vital Signs Temp 98 F 11/10/21 11:05 Pulse 88 11/10/21 11:16 Resp 18 11/10/21 11:05 BP 131/67 11/10/21 11:05 Pulse Ox 98 11/10/21 11:05 FiO2 Intake & Output 11/09/21 11/10/21 11/10/21 18:59 06:59 18:59 Intake Total 290 Output Total 200 2 Balance 90 -2 Weight 68.5 kg 61.5 kg Intake: IV 20 Invasive Line 2 20 Oral 270 Output: Urine 200 Urine/Stool Mix 2 Other: Voiding Method External Catheter Diaper Toilet Incontinent Diaper Incontinent # Voids 1 - Exam GENERAL EXAM: Alert, very pleasant, 71-year-old white female on room air with pulse ox of 98% comfortable in no apparent distress. HEAD: Normocephalic/atraumatic. EYES: Normal reaction of pupils, equal size. Conjunctiva pink, sclera white. NOSE: Clear with pink turbinates. THROAT: No erythema or exudates. NECK: No masses, no JVD, no thyroid enlargement, no adenopathy. CHEST: No chest wall deformity. Symmetrical expansion. LUNGS: Equal air entry with no crackles, wheeze, rhonchi or dullness. CVS: Regular rate and rhythm, normal S1 and S2, no gallops, no murmurs, no rubs ABDOMEN: Soft, nontender. No hepatosplenomegaly, normal bowel sounds, no guarding or rigidity. EXTREMITIES: No clubbing, no edema, no cyanosis, 2+ pulses and upper and lower extremities. Left foot lateral border show some soft tissue and some surrounding deep tissue injury, no foul-smelling drainage, multiple toes amputation is noted in both feet MUSCULOSKELETAL: Muscle strength and tone normal. SPINE: No scoliosis or deformity SKIN: No rashes, CENTRAL NERVOUS SYSTEM: Alert and oriented -3. No focal deficits, tone is normal in all 4 extremities. PSYCHIATRIC: Alert and oriented -3. Appropriate affect. Intact judgment and insight. - Labs CBC & Chem 7: 11/10/21 04:37 11/10/21 04:37 Labs: Abnormal Lab Results - Last 24 Hours (Table) 11/09/21 11/09/21 11/09/21 Range/Units 16:46 20:05 Unknown RBC (3.80-5.40) m/uL Hgb (11.4-16.0) gm/dL Hct (34.0-46.0) % RDW (11.5-15.5) % Sodium (137-145) mmol/L BUN (7-17) mg/dL Creatinine (0.52-1.04) mg/dL Glucose (74-99) mg/dL POC Glucose (mg/dL) 191 H 209 H (70-110) mg/dL Calcium (8.4-10.2) mg/dL AST (14-36) U/L ALT (4-34) U/L Alkaline Phosphatase (38-126) U/L Albumin (3.5-5.0) g/dL Urine Protein 2+ H (Negative) Urine Blood Trace H (Negative) Hyaline Casts 7 H (0-2) /lpf Urine Mucus Rare H (None) /hpf 11/10/21 11/10/21 11/10/21 Range/Units 04:37 04:37 06:50 RBC 2.92 L (3.80-5.40) m/uL Hgb 8.5 L (11.4-16.0) gm/dL Hct 27.3 L (34.0-46.0) % RDW 17.1 H (11.5-15.5) % Sodium 133 L (137-145) mmol/L BUN 25 H (7-17) mg/dL Creatinine 1.62 H (0.52-1.04) mg/dL Glucose 106 H (74-99) mg/dL POC Glucose (mg/dL) 122 H (70-110) mg/dL Calcium 7.9 L (8.4-10.2) mg/dL AST 377 H (14-36) U/L ALT 344 H (4-34) U/L Alkaline Phosphatase 333 H (38-126) U/L Albumin 3.0 L (3.5-5.0) g/dL Urine Protein (Negative) Urine Blood (Negative) Hyaline Casts (0-2) /lpf Urine Mucus (None) /hpf 11/10/21 Range/Units 11:08 RBC (3.80-5.40) m/uL Hgb (11.4-16.0) gm/dL Hct (34.0-46.0) % RDW (11.5-15.5) % Sodium (137-145) mmol/L BUN (7-17) mg/dL Creatinine (0.52-1.04) mg/dL Glucose (74-99) mg/dL POC Glucose (mg/dL) 127 H (70-110) mg/dL Calcium (8.4-10.2) mg/dL AST (14-36) U/L ALT (4-34) U/L Alkaline Phosphatase (38-126) U/L Albumin (3.5-5.0) g/dL Urine Protein (Negative) Urine Blood (Negative) Hyaline Casts (0-2) /lpf Urine Mucus (None) /hpf Microbiology - Last 24 Hours (Table) 11/03/21 19:41 Blood Culture - Final Blood No Growth after 144 hours Assessment and Plan Plan: Assessment: #1. Acute metabolic encephalopathy, resolved #2. Acute on chronic systolic CHF exacerbation, with the possibility of healthcare acquired pneumonia #3. Acute urinary tract infection related to Klebsiella pneumoniae and Proteus mirabilis #4. Osteoarthritis of left foot, chronic #5. Severe ischemic cardiomyopathy with LV dysfunction and ejection fraction of 30% #6. Paroxysmal atrial fibrillation on Apixaban for anticoagulation #7. Benign essential hypertension #8. History of CVA #9. History of CVA #10. Chronic kidney disease #11. Type 2 diabetes mellitus with neuropathy and nephropathy #12. Dyslipidemia Plan: Continue current medical treatment Patient clinically is improving, much more oriented, vital signs are stable Continue antibiotics per ID service recommendations Continue diuretics Follow-up chest x-ray in the next few days I have personally seen and examined the patient, performed the documentation and the assessment and plan as written. Number of minutes spent on the visit: [10] Time with Patient: Less than 30
[2021-11-10] MEDS: FOLIC ACID 1 MG TAB PO SCH (13:04)
[2021-11-10] MEDS: THIAMINE 100 MG TAB PO SCH (13:04)
[2021-11-10] MEDS: MULTIVITAMINS, THERA 1 EACH TAB PO SCH (13:04)
[2021-11-10] MEDS: DAPTOmycin 500 MG in SODIUM CHLORIDE 0.9% 50 ML IVPB SCH (13:27)
--- NOTE | 2021-11-10 16:17 | P.PN ---
Subjective Progress Note Date: 11/10/21 This is a 71-year-old female patient of Dr. Sanderson with past medical history of diabetes mellitus type 2, hypertension, hyperlipidemia, CVA in 2013 with no residuals, coronary artery disease status post 4 vessel CABG, bilateral carotid endarterectomies, mild intermittent asthma, osteomyelitis status post right great toe amputation 2014 and left toe amputation and left big toe amputation as well. Patient was hospitalized recently at [facility] for osteomyelitis and severe cellulitis of the left foot require debridement status post debridement by Dr. Gregory patient was placed on IV antibiotics apparently in the form of daptomycin by Dr. Mccabe. Note the patient's was also recently hospitalized at [facility] and he has subsequently passed last week. Patient apparently came into [facility] in [facility] by EMS due to altered mental status as well as clinical decline since her discharge from [facility]. She has had multiple falls has been lethargic. Patient was found to be afebrile, heart rate 90, blood pressure 121/67, pulse ox 96% on room air. EKG sinus tachycardia. WBC 3.3, hemoglobin 13.1, platelet count 184. Sodium 134, potassium 3.7, chloride 90, CO2 31, BUN 27 creatinine 1.71. Blood sugar 125. INR 1.1. Urinalysis blood moderate, nitrate positive, leukoesterase large, WBC greater than 182, WBC clumps moderate, bacteria occasional. Urine drug screen was positive for opiates. Lactic acid 0.8. Liver function tests were normal. Ammonia level less than 9. Troponin 0.256, 0.303, 0.264. TSH 1.87. Albumin 3.1. Salicylate level less than 1 and acetaminophen level less than 10. Serum alcohol level less than 10. ProBNP 20,500 Chest x-ray reveals no definite acute process. CAT scan of the brain revealed no acute intracranial process. Similar remote temporal lobe injury along with right basal ganglia injury. Left foot x-ray reveals no fracture or malalignment. Patient was provided a half liter of IV fluid, 1 dose of ceftriaxone, admitted to the cardiac stepdown unit and consults with Dr. Gregory and Dr. Mccabe. 11/03: Patient is doing much better today, while more energetic, she was able to ambulate, without any assist devices, not leaning towards the left side as noted by the daughter, urine culture growing 2 gram-negative bacilli, sensitivities currently pending. No fever, however T-max of 99 2, stable vital signs, systolic 1:15, pulse ox 2 L, 96%. Wound is being followed surgically, by Dr. Gregory, Dr. Calvin is still following her for infection. She is still on IV Rocephin, and daptomycin. Obtain kidney ultrasound, evaluate for nephrolithiasis or infected kidney stones. 11/04, patient was seen a bit drowsy today, patient did not sleep well last night, however they've given her her home dose Xanax 1 mg later at night, as the patient is not sleeping, this is her normal 1 mg home dose, the patient has still to process the of the who less than 2 weeks ago, we have offered her the Xanax 0.5 3 times a day when necessary, however this is not taken. Patient was seen drowsy today, answers to questions, however she would drift off back to sleep. Hemoglobin also was dropping significantly, from an entry hemoglobin 13, to current hemoglobin of 7.3. No GI losses are noted, patient does not have any headache, or in the process of obtaining Hemoccult stools, CAT scan of the brain without contrast, patient might need BiPAP if not any better, she might need blood gases. Blood sugars and blood pressures are stable, patient had a T-max of 101 yesterday, renal ultrasound failed to reveal any stone, no hydronephrosis, hold discharge today secondary to somnolence, and hemoglobin drop and the fever blood cultures has been sent to 92% on 5 L nasal cannula, patient's on IV Rocephin for UTI, and daptomycin, for osteomyelitis left foot urine culture, growing Klebsiella pneumonia resistant to ampicillin, , Proteus mirabilis, resistant to nitrofurantoin and tetracycline. We've held gabapentin, and Xanax home dose held, and Sinclair was held, secondary to hypersomnolence 11/05/2021 Picking up coverage for Dr. Thompson today. Patient is evaluated today resting in bed. She continues to be drowsy but is alert. She reports feeling sleepy today. Her main complaint is pain to her left foot, currently is dressed with kerlex. She continues on IV antibiotics in the form of daptomycin and ceftriaxone. Infectious disease is following patient. Urine culture showing klebsiella and proteus. Blood culture negative so far. Hemoglobin remains stable at 7.6, no signs of acute bleeding, she received 2 doses of IV ferrlecit. Sodium today 134, potassium 5.2, BUN 38, creatinine 1.81. Blood glucose in the 150s. Patient is now requiring 5L nasal cannula and chest xray follow up completed showing vascular congestion versus pneumonia. Repeat BNP found to be 77,600 will give a dose of IV lasix. Fluids have been discontinued, patient dose have an EF of 30 to 35%. Cardiology is following the patient closely. Vascular surgery is following the patient and recommends to continue santyl cream daily to lateral left foot recommending vascular intervention when stable. 11/06/2021 Patient reports breathing has improved today, she is more awake. She is alert x 3, family at the bedside. She received a dose of IV lasix last night and today oxygen saturations have improved to 96%. Creatinine also improved down to 1.64. She has been resumed on oral lasix by cardiology today. Continues on iv daptomycin, iv ceftriaxone. Infectious disease following. Cardiology has discussed AICD with patient. Labs reviewed white count 8.7, hgb improved 8.3. Sodium 136, potassium 4.5, BUN 38, creatinine 1.64, blood glucose in the 140s, calcium 8.0, magnesium 1.7. 11/07/2021 Patient evaluated today she is slightly confused but is able to state her name, , location and she is able to tell me what brought her into the hospital. Overnight oxygen demand increased and she is now on 9L Hi flow cannula with oxygen saturation in the mid 90s. She did receive a 20 mg IV lasix dose around 0400, Cardiology has started patient on IV lasix 40 Q12. Repeat chest xray showing pleural effusion correlate for pulmonary edema consider diffuse pneumonia. Images refused and effusion appears worsening in the right lung. Labs today showing white count 5.9, hgb 7.7, sodium 133, potassium 4.4, BUN 33, creatinine 1.59, blood glucose in the 130s, calcium 7.5, magnesium 1.8. Covid is negative. She is afebrile, blood pressure 126/66. Infectious disease is following. She continues on IV daptomycin, IV ceftriaxone. 11/08/2021 Patient is seen in follow-up this morning continues to be confused although able to answer some questions appropriately. Multiple medical consultations following including vascular surgery, infectious disease, cardiology. Patient continues with shortness of breath and is maintained on IV Lasix. Patient continues to require oxygen at 8 L high flow although found on exam on room air today as she continues to remove her oxygen. Encourage the patient along with nursing staff to continue oxygen supplementation. Wean as tolerated. Patient was maintained on when necessary breathing treatments although will make scheduled and continue with when necessary. Will consult pulmonary with concerns for pneumonia. Patient reports she is eating although unsure of how accurate this is. Will also order incentive spirometer. Also order pro calcitonin along with sputum culture, repeat urinalysis, sed rate, CRP and follow-up on labs. Will also add performer wrist and again will consult pulmonary and appreciate input and recommendations. CT of the chest is ordered. Most recent CBC yesterday was 7.7 and will follow-up with repeat labs as well. Patient is afebrile and denies chest pain at this time. Daughter called the nurse asking to restart her gabapentin although given her confusion will monitor closely at this time. Patient is extremely weak and will have physical therapy evaluate the patient. Also recommend orthostatic vital signs. 11/09/2021 Patient is seen and evaluated today and appears more awake and alert. Patient continues with weakness and is working with PT/OT. Multiple medical consultations following and have consulted pulmonary and appreciate input and recommendations. Patient is continued on IV antibiotics along with IV lasix and will continue. Continue to encourage incentive spirometer and breathing treatments. Encouraged oral intake and increased activity as tolerated. Patient is afebrile and denies worsening shortness of breath. Patient denies chest pain. LFT's noted to be significantly elevated along with procalcitonin. Patient does have picc for osteo of the left foot. 11/10/2021 Patient is seen today in follow up on the med surg unit and mentation appears improved. Patient is up and walking with staff and sitting up in the chair. Patient currently on 4L via NC and takes oxygen off frequently and was documented as 98% on room air although 92% on 4L. Encouraged to increase activity as tolerated and continue using incentive spirometer and duonebs. Wean FI02 as tolerated. Patient is afebrile and is continued with a PICC line with IV abx and ID following for chronic osetomyelitis of the left foot. Recommend to continue with local wound care. Patient is afebrile and denies chest pain or shortness of breath. Will continue IV lasix for 24 hours with follow up labs and monitor kidney functions closely. Review of Systems Constitutional: Reports fatigue. denied any fever. Cardio vascular: denied any chest pain, palpitations Gastrointestinal: denied any nausea, vomiting, diarrhea Pulmonary: Denied any worsening shortness of breath cough Neurologic denied any new focal deficits, reports some bilateral foot pain Active Medications Albuterol/Ipratropium (Ipratropium-Albuterol 3 Ml Neb) 3 ml INHALATION RT-Q4H PRN PRN Reason: Shortness Of Breath Or Wheezing Last Admin: 11/08/21 08:03 Dose: 3 ml Albuterol/Ipratropium (Ipratropium-Albuterol 3 Ml Neb) 3 ml INHALATION RT-QID [facility] Last Admin: 11/10/21 15:01 Dose: 3 ml Amiodarone HCl (Amiodarone 200 Mg Tab) 200 mg PO DAILY [facility] Last Admin: 11/10/21 07:59 Dose: 200 mg Apixaban (Apixaban 2.5 Mg Tablet) 2.5 mg PO BID [facility]; Protocol Last Admin: 11/10/21 07:58 Dose: 2.5 mg Budesonide (Budesonide 0.25 Mg/2 Ml Nebu) 0.25 mg INHALATION RT-BID [facility] Last Admin: 11/10/21 07:21 Dose: 0.25 mg Collagenase (Collagenase 250 Unit/Gm Ointment 30 Gm Tube) 1 applic TOPICAL HS [facility]; Protocol Last Admin: 11/09/21 21:12 Dose: 1 applic Duloxetine HCl (Duloxetine Hcl 60 Mg Capsule.Dr) 60 mg PO DAILY [facility] Last Admin: 11/10/21 07:58 Dose: 60 mg Folic Acid (Folic Acid 1 Mg Tab) 1 mg PO DAILY@1200 [facility] Last Admin: 11/10/21 13:04 Dose: 1 mg Formoterol Fumarate (Formoterol Fumarate 20 Mcg/2 Ml Nebu) 20 mcg INHALATION RT-BID [facility] Last Admin: 11/10/21 07:22 Dose: 20 mcg Furosemide (Furosemide 10 Mg/Ml 4 Ml Vial) 40 mg IV Q12HR [facility] Last Admin: 11/10/21 07:59 Dose: 40 mg Ceftriaxone Sodium 1 gm/ (Sodium Chloride) 50 mls @ 100 mls/hr IVPB Q24H [facility]; Protocol Last Admin: 11/09/21 23:22 Dose: 100 mls/hr Daptomycin 500 mg/ Sodium (Chloride) 50 mls @ 100 mls/hr IVPB Q24H [facility]; Protocol Last Admin: 11/10/21 13:27 Dose: 100 mls/hr Insulin Aspart (Insulin Aspart (Novolog) 100 Unit/Ml Vial) 0 unit SQ ACHS [facility]; Protocol Last Admin: 11/10/21 12:21 Dose: Not Given Insulin Detemir (Insulin Detemir (Levemir) 100 Unit/Ml Syr) 8 unit SQ DAILY@0700 [facility] Last Admin: 11/10/21 07:57 Dose: 8 unit Magnesium Oxide (Magnesium Oxide 400 Mg Tab) 400 mg PO DAILY [facility] Last Admin: 11/10/21 07:58 Dose: 400 mg Melatonin (Melatonin 3 Mg Tablet) 6 mg PO [facility] Last Admin: 11/09/21 21:12 Dose: 6 mg Metoprolol Tartrate (Metoprolol Tartrate 25 Mg Tab) 25 mg PO [facility] Last Admin: 11/09/21 21:12 Dose: 25 mg Miscellaneous Information (Magnesium Replacement Protocol 1 Each Misc) 1 each MISCELLANE DAILY PRN; Protocol PRN Reason: Per Protocol Miscellaneous Information (Magnesium Replacement Protocol 1 Each Misc) 1 each MISCELLANE DAILY PRN; Protocol PRN Reason: Per Protocol Montelukast Sodium (Montelukast 10 Mg Tab) 10 mg PO [facility] Last Admin: 11/09/21 21:12 Dose: 10 mg Multivitamins (Multivitamins, Thera 1 Each Tab) 1 each PO DAILY@1200 [facility] Last Admin: 11/10/21 13:04 Dose: 1 each Naloxone HCl (Naloxone 0.4 Mg/Ml 1 Ml Vial) 0.2 mg IV Q2M PRN PRN Reason: Opioid Reversal Non-Formulary Medication (Lumateperone Tosylate [Caplyta]) 42 mg PO DAILY [facility] Last Admin: 11/10/21 07:56 Dose: Not Given Ondansetron HCl (Ondansetron 4 Mg/2 Ml Vial) 4 mg IVP Q6HR PRN PRN Reason: Nausea And Vomiting Last Admin: 11/06/21 12:46 Dose: 4 mg Thiamine HCl (Thiamine 100 Mg Tab) 100 mg PO DAILY@1200 [facility] Last Admin: 11/10/21 13:04 Dose: 100 mg Physical Examination Gen: This is a 71 year-old obese female. sitting up in the chair, more awake and alert, currently maintained on room air, with occasional oxygen supplementation. HEENT: Head is atraumatic, normocephalic. Pupils equal, round. Sclerae is anicteric. NECK: Supple. No JVD. No lymphadenopathy. No thyromegaly. LUNGS: Lungs are diminished bilaterally more so on the right with some scattered rhonchi and fine crackles noted at the bases HEART: S1, S2 are muffled ABDOMEN: Soft. Bowel sounds are present. No masses. No tenderness. EXTREMITIES: No pedal edema. No calf tenderness. Right great toe amputation, right second toe has small abrasion. Left foot dressed in kerlex NEUROLOGICAL: Patient is awake, alert and oriented to person and place. Cranial nerves 2 through 12 are grossly intact. Diffusely weak Assessment: -Acute hypoxic respiratory failure secondary to acute CHF exacerbation -Possible right lobe pneumonia -Elevated LFT's, trending down -Acute kidney injury and chronic kidney disease stage III -acute on Chronic systolic and diastolic heart failure, acute exacerbation -Acute metabolic encephalopathy secondary to sepsis and osteomyelitis, improved -Osteomyelitis in the left foot -Urinary tract infection, present on admission with Proteus mirabilis and Klebsiella pneumonia noted in the cultures -Elevated troponins, likely from infection, ACS ruled out by cardiology. -Ischemic cardiomyopathy with EF 30% -COPD without exacerbation. -Paroxysmal atrial fibrillation. -Coronary artery disease with history of 4 vessel CABG in 2014, PCI in 2020 -Diabetes Mellitus type 2 -History of DVT and pulmonary embolism. -History of CVA and mild memory loss. -History of Hypertension -Hyperlipidemia -Diabetic neuropathy -Anxiety/depression exacerbated by recent loss of her -History of PVD with previous vascular stenting -GI prophylaxis. Protonix. -DVT prophylaxis. Eliquis. -CODE STATUS: NO code. Plan: Recommend continue with current medications and management and IV antibiotics with ID following. Patient is maintained on IV Lasix twice daily with cardiology following and pulmonary following as well. Patient denies shortness of breath and is maintaining oxygen saturations on room air although has been on 4L via NC. Patient is sitting up in the chair and per nursing staff has been up and walking. Mentation much improved. LFTs trending down and other labs wit hin normal limits. Vascular surgery following an recommend continue with wound care and will have close outpatient follow-up. Social work following and patient will be going home on discharge with daughter. Recommend repeat labs and chest xray in the am. Due to multiple complex medical issues, prognosis is extremely guarded. The impression and plan of care has been dictated as a scribe by Lauren Castaneda, nurse practitioner as directed. MD Devon I have performed a history and examination and MDM of this patient, discussed the same with the dictator and has been documented as a scribe. Based on total visit time, I have performed more than 50% of the visit. Objective - Vital Signs Vital signs: Vital Signs Temp 98.1 F 11/10/21 04:51 Pulse 88 11/10/21 07:44 Resp 18 11/10/21 04:51 BP 136/68 11/10/21 04:51 Pulse Ox 92 L 11/10/21 04:51 FiO2 Intake & Output 11/09/21 11/10/21 11/10/21 18:59 06:59 18:59 Intake Total 290 Output Total 200 2 Balance 90 -2 Weight 68.5 kg 61.5 kg Intake: IV 20 Invasive Line 2 20 Oral 270 Output: Urine 200 Urine/Stool Mix 2 Other: Voiding Method External Catheter Diaper Toilet Incontinent Diaper Incontinent # Voids 1 - Labs CBC & Chem 7: 11/10/21 04:37 11/10/21 04:37 Labs: Abnormal Lab Results - Last 24 Hours (Table) 11/09/21 11/09/21 11/09/21 Range/Units 12:04 16:46 20:05 RBC (3.80-5.40) m/uL Hgb (11.4-16.0) gm/dL Hct (34.0-46.0) % RDW (11.5-15.5) % Sodium (137-145) mmol/L BUN (7-17) mg/dL Creatinine (0.52-1.04) mg/dL Glucose (74-99) mg/dL POC Glucose (mg/dL) 143 H 191 H 209 H (70-110) mg/dL Calcium (8.4-10.2) mg/dL AST (14-36) U/L ALT (4-34) U/L Alkaline Phosphatase (38-126) U/L Albumin (3.5-5.0) g/dL Urine Protein (Negative) Urine Blood (Negative) Hyaline Casts (0-2) /lpf Urine Mucus (None) /hpf 11/09/21 11/10/21 11/10/21 Range/Units Unknown 04:37 04:37 RBC 2.92 L (3.80-5.40) m/uL Hgb 8.5 L (11.4-16.0) gm/dL Hct 27.3 L (34.0-46.0) % RDW 17.1 H (11.5-15.5) % Sodium 133 L (137-145) mmol/L BUN 25 H (7-17) mg/dL Creatinine 1.62 H (0.52-1.04) mg/dL Glucose 106 H (74-99) mg/dL POC Glucose (mg/dL) (70-110) mg/dL Calcium 7.9 L (8.4-10.2) mg/dL AST 377 H (14-36) U/L ALT 344 H (4-34) U/L Alkaline Phosphatase 333 H (38-126) U/L Albumin 3.0 L (3.5-5.0) g/dL Urine Protein 2+ H (Negative) Urine Blood Trace H (Negative) Hyaline Casts 7 H (0-2) /lpf Urine Mucus Rare H (None) /hpf 11/10/21 Range/Units 06:50 RBC (3.80-5.40) m/uL Hgb (11.4-16.0) gm/dL Hct (34.0-46.0) % RDW (11.5-15.5) % Sodium (137-145) mmol/L BUN (7-17) mg/dL Creatinine (0.52-1.04) mg/dL Glucose (74-99) mg/dL POC Glucose (mg/dL) 122 H (70-110) mg/dL Calcium (8.4-10.2) mg/dL AST (14-36) U/L ALT (4-34) U/L Alkaline Phosphatase (38-126) U/L Albumin (3.5-5.0) g/dL Urine Protein (Negative) Urine Blood (Negative) Hyaline Casts (0-2) /lpf Urine Mucus (None) /hpf Microbiology - Last 24 Hours (Table) 11/03/21 19:41 Blood Culture - Final Blood No Growth after 144 hours
[2021-11-10 17:09] LABS: Glucose,Whole Blood 213 mg/dL (70-110)
[2021-11-10 20:02] LABS: Glucose,Whole Blood 185 mg/dL (70-110)
[2021-11-10] MEDS: MELATONIN 3 MG TABLET PO SCH (21:59)
[2021-11-10] MEDS: METOPROLOL TARTRATE 25 MG TAB PO SCH (22:00)
[2021-11-10] MEDS: MONTELUKAST 10 MG TAB PO SCH (22:00)
--- NOTE | 2021-11-10 22:00 | P.PN ---
Subjective Progress Note Date: 11/10/21 Principal diagnosis: Left foot osteo-myelitis and a UTI Patient is a 71-year-old female who was recently admitted at [facility] with left diabetic foot infection status post debridement with evidence of Osteomyelitis culture positive for MRSA for the patient was receiving daptomycin subsequently admitted to the hospital with mental status changes did have a component of dehydration and UTI. On today's evaluation dated 11/10/2021, the patient remains to be afebrile, the patient denies chest pain, the patient is breathing comfortably on nasal cannul a oxygen, patient denies cough or sputum production, the patient denies having abdominal pain no diarrhea feeling better Objective - Vital Signs Vital signs: Vital Signs Temp 98 F 11/10/21 11:05 Pulse 88 11/10/21 11:16 Resp 18 11/10/21 11:05 BP 131/67 11/10/21 11:05 Pulse Ox 98 11/10/21 11:05 FiO2 Intake & Output 11/09/21 11/10/21 11/10/21 18:59 06:59 18:59 Intake Total 290 Output Total 200 2 Balance 90 -2 Weight 68.5 kg 61.5 kg Intake: IV 20 Invasive Line 2 20 Oral 270 Output: Urine 200 Urine/Stool Mix 2 Other: Voiding Method External Catheter Diaper Toilet Incontinent Diaper Incontinent # Voids 1 - Exam GENERAL DESCRIPTION: An elderly female lying in bed in no distress RESPIRATORY SYSTEM: Unlabored breathing , decreased breath sounds at bases HEART: S1 S2 regular rate and rhythm , ABDOMEN: Soft , no tenderness EXTREMITIES: Left foot is currently dressed no drainage on the dressing - Labs CBC & Chem 7: 11/10/21 04:37 11/10/21 04:37 Labs: Abnormal Lab Results - Last 24 Hours (Table) 11/09/21 11/09/21 11/09/21 Range/Units 16:46 20:05 Unknown RBC (3.80-5.40) m/uL Hgb (11.4-16.0) gm/dL Hct (34.0-46.0) % RDW (11.5-15.5) % Sodium (137-145) mmol/L BUN (7-17) mg/dL Creatinine (0.52-1.04) mg/dL Glucose (74-99) mg/dL POC Glucose (mg/dL) 191 H 209 H (70-110) mg/dL Calcium (8.4-10.2) mg/dL AST (14-36) U/L ALT (4-34) U/L Alkaline Phosphatase (38-126) U/L Albumin (3.5-5.0) g/dL Urine Protein 2+ H (Negative) Urine Blood Trace H (Negative) Hyaline Casts 7 H (0-2) /lpf Urine Mucus Rare H (None) /hpf 11/10/21 11/10/21 11/10/21 Range/Units 04:37 04:37 06:50 RBC 2.92 L (3.80-5.40) m/uL Hgb 8.5 L (11.4-16.0) gm/dL Hct 27.3 L (34.0-46.0) % RDW 17.1 H (11.5-15.5) % Sodium 133 L (137-145) mmol/L BUN 25 H (7-17) mg/dL Creatinine 1.62 H (0.52-1.04) mg/dL Glucose 106 H (74-99) mg/dL POC Glucose (mg/dL) 122 H (70-110) mg/dL Calcium 7.9 L (8.4-10.2) mg/dL AST 377 H (14-36) U/L ALT 344 H (4-34) U/L Alkaline Phosphatase 333 H (38-126) U/L Albumin 3.0 L (3.5-5.0) g/dL Urine Protein (Negative) Urine Blood (Negative) Hyaline Casts (0-2) /lpf Urine Mucus (None) /hpf 11/10/21 Range/Units 11:08 RBC (3.80-5.40) m/uL Hgb (11.4-16.0) gm/dL Hct (34.0-46.0) % RDW (11.5-15.5) % Sodium (137-145) mmol/L BUN (7-17) mg/dL Creatinine (0.52-1.04) mg/dL Glucose (74-99) mg/dL POC Glucose (mg/dL) 127 H (70-110) mg/dL Calcium (8.4-10.2) mg/dL AST (14-36) U/L ALT (4-34) U/L Alkaline Phosphatase (38-126) U/L Albumin (3.5-5.0) g/dL Urine Protein (Negative) Urine Blood (Negative) Hyaline Casts (0-2) /lpf Urine Mucus (None) /hpf Microbiology - Last 24 Hours (Table) 11/03/21 19:41 Blood Culture - Final Blood No Growth after 144 hours Assessment and Plan (1) Diabetic foot ulcer associated with type 2 diabetes mellitus Current Visit: Yes Status: Acute Code(s): E11.621 - TYPE 2 DIABETES MELLITUS WITH FOOT ULCER SNOMED Code(s): 7101193387741 (2) Urinary tract infection Current Visit: Yes Status: Acute Code(s): N39.0 - URINARY TRACT INFECTION, SITE NOT SPECIFIED SNOMED Code(s): 90384918 Plan: 1patient presented to hospital with weakness lethargy which is likely multifactorial in this patient did have a dehydration plus minus a component of urinary tract infection likely from enteric gram-negative pathogen. 2patient with a left diabetic foot infection with underlying osteomyelitis culture positive for MRSA at [facility]. 3local wound care to the left foot wound with the Santyl followed by moist dressing change daily and will continue with daptomycin for her left diabetic foot infections/Osteomyelitis to finish a 6 day course of therapy 4the patient urine culture have been finalized with Klebsiella and Proteus, patient ultrasound was negative for any structural abnormality, the patient clinically responded to Rocephin which will be continued while in patient, finishing therapy with oral Ceftin on discharge Time with Patient: Less than 30
[2021-11-10] MEDS: COLLAGENASE 250 UNIT/GM OINTMENT 30 GM TUBE TOPICAL SCH (22:04)
[2021-11-11 06:47] LABS: Glucose,Whole Blood 182 mg/dL (70-110)
[2021-11-11] MEDS: IPRATROPIUM-ALBUTEROL 3 ML NEB INHALATION SCH ×4 (07:14→19:24)
[2021-11-11] MEDS: BUDESONIDE 0.25 MG/2 ML NEBU INHALATION SCH ×2 (07:14→19:24)
[2021-11-11] MEDS: FORMOTEROL FUMARATE 20 MCG/2 ML NEBU INHALATION SCH ×2 (07:20→19:24)
[2021-11-11] MEDS: AMIODARONE 200 MG TAB PO SCH (08:06)
[2021-11-11] MEDS: MAGNESIUM OXIDE 400 MG TAB PO SCH (08:06)
[2021-11-11] MEDS: DULoxetine HCL 60 MG CAPSULE.DR PO SCH (08:06)
[2021-11-11] MEDS: FUROSEMIDE 10 MG/ML 4 ML VIAL IV SCH ×2 (08:06→22:20)
[2021-11-11] MEDS: APIXABAN 2.5 MG TABLET PO SCH ×2 (08:06→20:46)
[2021-11-11] MEDS: INSULIN DETEMIR (LEVEMIR) 100 UNIT/ML SYR SQ SCH (08:06)
[2021-11-11] MEDS: INSULIN ASPART (NovoLOG) 100 UNIT/ML VIAL SQ SCH ×4 (08:07→20:48)
[2021-11-11] MEDS: NON FORMULARY DRUG (Lumateperone Tosylate [Caplyta] 42 MG Capsule) PO SCH (08:07)
--- NOTE | 2021-11-11 08:57 | XR ---
EXAMINATION TYPE: XR chest 1V portable DATE OF EXAM: 11/11/2021 COMPARISON: 11/09/2021 INDICATION: Short of breath TECHNIQUE: Single frontal view of the chest is obtained. FINDINGS: The heart size is enlarged. The pulmonary vasculature is prominent. Diffuse increased lung markings are present. Sternotomy wires are present. Findings are worsened over the interval. IMPRESSION: 1. Clinical correlation recommended for worsening congestive heart failure. Continued follow-up is re commended.
[2021-11-11] MEDS ORDERED: metOLazone 2.5 MG TAB PO SCH (09:00)
[2021-11-11] MEDS ORDERED: metOLazone 5 MG TAB PO ONE (09:00)
[2021-11-11 09:01] LABS: African American GFR (CKD) 38 (>60 ml/min/1.73 sqM); Anion Gap 8 mmol/L; Blood Urea Nitrogen 25 mg/dL (7-17); Carbon Dioxide 28 mmol/L (22-30); Chloride 99 mmol/L (98-107); Glucose 172 mg/dL (74-99); Non-African American GFR(CKD) 33 (>60 ml/min/1.73 sqM); Potassium 3.9 mmol/L (3.5-5.1); Sodium 135 mmol/L (137-145)
[2021-11-11 10:53] LABS: Glucose,Whole Blood 134 mg/dL (70-110)
--- NOTE | 2021-11-11 11:25 | P.PN ---
Subjective Progress Note Date: 11/11/21 Principal diagnosis: Dyspnea, altered mentation This is a 71-year-old female with history of multiple medical problems including type 2 diabetes, diabetic neuropathy and diabetic foot ulcers, hypertension, dyslipidemia, history of CVA in 2013, coronary artery disease and previous CABG 4 history of mild intermittent asthma, and history of chronic osteomyelitis of the right foot. Multiple amputations of toes from right and left foot. Patient was recently hospitalized at [facility] for osteomyelitis and cellulitis of the left foot requiring debridement and she was treated with daptomycin by infectious disease. Patient was admitted this time to [facility] on 11/02/2021, and her admission diagnosis was altered mental status, and metabolic encephalopathy. Since then the patient has been seen by many consultants including infectious disease, internal medicine, cardiology, and at one point she had a chest x-ray showing evidence of pulmonary edema. Patient was treated with diuretics, and recent follow-up chest x-ray and CT of the chest questioned underlying pneumonia. Hence this consult was initiated. Overall patient has been steadily improving since admission, her mental status is improving but nonetheless she remains confused at times. I reviewed the chest x-ray, I also reviewed the CT of the chest, it is rather difficult to tell how m uch of the findings are related to pulmonary edema or underlying pneumonia. However the patient is on diuretic she is also on antibiotics and seems to be responding well clinically, hence I'm not recommending any changes in her present course of treatment. Patient does have significantly elevated BNP she also has significantly elevated pro calcitonin. On 11/10/2021 patient seen in follow-up on medical surgical floor, she is awake and alert, oriented to place and time. She states she is feeling much better, she sits up in the recliner, breathing comfortable, vital signs are stable, patient is afebrile, room air pulse ox is 98%. Her chest x-ray from yesterday showed improving bilateral diffuse lung infiltrates. She continues on diuretics, and antibiotics for left foot osteomyelitis in the form of ceftriaxone and daptomycin. ID service is following. Today's labs have been reviewed, white blood cell count is 7.8, hemoglobin is 8.5, sodium is 133, the rest of the electrolytes are within normal limits, renal function shows slight worsening of creatinine, which is up to 1.62, BUN is 25. Pro calcitonin level came back elevated at 3.90, CRP was 19.6, urinalysis showed acute urinary tract infection, follow-up urinalysis shows no evidence of infection, COVID-19 PCR was negative. Urine culture showed Klebsiella pneumonia and Proteus mild was, blood cultures have been negative. On 11/11/2021 patient seen in follow-up on medical surgical floor. She is awake, sitting up in the chair, answering questions appropriately, she is oriented 3, denies any respiratory distress, no cough, lung sounds are clear, however her chest x-ray findings from today showing worsening pulmonary vascular prominence, and diffuse increased lung markings, findings consistent with worsening CHF. Today's labs have been reviewed, renal profile is relatively stable, slightly improved from yesterday, B1 is 25, creatinine is 1.58, sodium is 135, the rest of electrolytes are within normal limits. Patient continues on IV Lasix 40 mg every 12 hours, she is on antibiotics with Rocephin and daptomycin per ID service. He denies any cough or phlegm production, no hemoptysis no chest pain. Her urine culture was positive for Klebsiella pneumonia and Proteus mirabilis, blood cultures have been negative. Objective - Vital Signs Vital signs: Vital Signs Temp 98.4 F 11/11/21 04:43 Pulse 92 11/11/21 11:19 Resp 16 11/11/21 04:43 BP 111/57 11/11/21 04:43 Pulse Ox 92 L 11/11/21 04:43 FiO2 Intake & Output 11/10/21 11/11/21 11/11/21 18:59 06:59 18:59 Intake Total 50 Output Total 2 Balance 48 Weight 66.5 kg Intake: Intake, IV Titration 50 Amount DAPTOmycin 500 mg In 50 Sodium Chloride 0.9% 50 ml @ 100 mls/hr IVPB Q24H [facility] Rx#:[id number] Output: Urine/Stool Mix 2 Other: Voiding Method Toilet Toilet Toilet Diaper Diaper Diaper Incontinent Incontinent Incontinent # Voids 1 3 # Bowel Movements 1 - Exam GENERAL EXAM: Alert, very pleasant, 71-year-old white female on room air with pulse ox of 98% comfortable in no apparent distress. HEAD: Normocephalic/atraumatic. EYES: Normal reaction of pupils, equal size. Conjunctiva pink, sclera white. NOSE: Clear with pink turbinates. THROAT: No erythema or exudates. NECK: No masses, no JVD, no thyroid enlargement, no adenopathy. CHEST: No chest wall deformity. Symmetrical expansion. LUNGS: Equal air entry with no crackles, wheeze, rhonchi or dullness. CVS: Regular rate and rhythm, normal S1 and S2, no gallops, no murmurs, no rubs ABDOMEN: Soft, nontender. No hepatosplenomegaly, normal bowel sounds, no guard ing or rigidity. EXTREMITIES: No clubbing, no edema, no cyanosis, 2+ pulses and upper and lower extremities. Left foot lateral border show some soft tissue and some surrounding deep tissue injury, no foul-smelling drainage, multiple toes amputation is noted in both feet MUSCULOSKELETAL: Muscle strength and tone normal. SPINE: No scoliosis or deformity SKIN: No rashes, CENTRAL NERVOUS SYSTEM: Alert and oriented -3. No focal deficits, tone is normal in all 4 extremities. PSYCHIATRIC: Alert and oriented -3. Appropriate affect. Intact judgment and insight. - Labs CBC & Chem 7: 11/10/21 04:37 11/11/21 08:22 Labs: Abnormal Lab Results - Last 24 Hours (Table) 11/10/21 11/10/21 11/11/21 Range/Units 17:07 20:01 06:46 Sodium (137-145) mmol/L BUN (7-17) mg/dL Creatinine (0.52-1.04) mg/dL Glucose (74-99) mg/dL POC Glucose (mg/dL) 213 H 185 H 182 H (70-110) mg/dL Calcium (8.4-10.2) mg/dL 11/11/21 11/11/21 Range/Units 08:22 10:52 Sodium 135 L (137-145) mmol/L BUN 25 H (7-17) mg/dL Creatinine 1.58 H (0.52-1.04) mg/dL Glucose 172 H (74-99) mg/dL POC Glucose (mg/dL) 134 H (70-110) mg/dL Calcium 8.0 L (8.4-10.2) mg/dL Assessment and Plan Plan: Assessment: #1. Acute metabolic encephalopathy, resolved #2. Acute on chronic systolic CHF exacerbation, with the possibility of he althcare acquired pneumonia #3. Acute urinary tract infection related to Klebsiella pneumoniae and Proteus mirabilis #4. Osteoarthritis of left foot, chronic #5. Severe ischemic cardiomyopathy with LV dysfunction and ejection fraction of 30% #6. Paroxysmal atrial fibrillation on Apixaban for anticoagulation #7. Benign essential hypertension #8. History of CVA #9. History of CVA #10. Chronic kidney disease #11. Type 2 diabetes mellitus with neuropathy and nephropathy #12. Dyslipidemia Plan: Today's chest x-ray showing worsening CHF Patient continues on IV Lasix, we will add one-time dose of Zaroxolyn 5 mg Follow-up chest x-ray tomorrow Continue antibiotics per ID service recommendations I have personally seen and examined the patient, performed the documentation and the assessment and plan as written. Number of minutes spent on the visit: [10] Time with Patient: Less than 30
[2021-11-11] MEDS: FOLIC ACID 1 MG TAB PO SCH (11:56)
[2021-11-11] MEDS: MULTIVITAMINS, THERA 1 EACH TAB PO SCH (11:56)
[2021-11-11] MEDS: THIAMINE 100 MG TAB PO SCH (11:57)
[2021-11-11] MEDS: DAPTOmycin 500 MG in SODIUM CHLORIDE 0.9% 50 ML IVPB SCH (11:57)
[2021-11-11 12:23] LABS: Glucose,Whole Blood 142 mg/dL (70-110)
[2021-11-11 17:12] LABS: Glucose,Whole Blood 211 mg/dL (70-110)
[2021-11-11 20:24] LABS: Glucose,Whole Blood 201 mg/dL (70-110)
[2021-11-11 20:41] VITALS: RESP 16
[2021-11-11] MEDS: METOPROLOL TARTRATE 25 MG TAB PO SCH (20:46)
[2021-11-11] MEDS: MONTELUKAST 10 MG TAB PO SCH (20:46)
[2021-11-11] MEDS: MELATONIN 3 MG TABLET PO SCH (20:46)
[2021-11-11] MEDS: COLLAGENASE 250 UNIT/GM OINTMENT 30 GM TUBE TOPICAL SCH (20:47)
--- NOTE | 2021-11-12 02:32 | P.PN ---
Subjective Progress Note Date: 11/11/21 This is a 71-year-old female patient of Dr. Sanderson with past medical history of diabetes mellitus type 2, hypertension, hyperlipidemia, CVA in 2013 with no residuals, coronary artery disease status post 4 vessel CABG, bilateral carotid endarterectomies, mild intermittent asthma, osteomyelitis status post right great toe amputation 2014 and left toe amputation and left big toe amputation as well. Patient was hospitalized recently at [facility] for osteomyelitis and severe cellulitis of the left foot require debridement status post debridement by Dr. Gregory patient was placed on IV antibiotics apparently in the form of daptomycin by Dr. Mccabe. Note the patient's was also recently hospitalized at [facility] and he has subsequently passed last week. Patient apparently came into [facility] by EMS due to altered mental status as well as clinical decline since her discharge from [facility]. She has had multiple falls has been lethargic. Patient was found to be afebrile, heart rate 90, blood pressure 121/67, pulse ox 96% on room air. EKG sinus tachycardia. WBC 3.3, hemoglobin 13.1, platelet count 184. Sodium 134, potassium 3.7, chloride 90, CO2 31, BUN 27 creatinine 1.71. Blood sugar 125. INR 1.1. Urinalysis blood moderate, nitrate positive, leukoesterase large, WBC greater than 182, WBC clumps moderate, bacteria occasional. Urine drug screen was positive for opiates. Lactic acid 0.8. Liver function tests were normal. Ammonia level less than 9. Troponin 0.256, 0.303, 0.264. TSH 1.87. Albumin 3.1. Salicylate level less than 1 and acetaminophen level less than 10. Serum alcohol level less than 10. ProBNP 20,500 Chest x-ray reveals no definite acute process. CAT scan of the brain revealed no acute intracranial process. Similar remote temporal lobe injury along with right basal ganglia injury. Left foot x-ray reveals no fracture or malalignment. Patient was provided a half liter of IV fluid, 1 dose of ceftriaxone, admitted to the cardiac stepdown unit and consults with Dr. Gregory and Dr. Mccabe. 11/03: Patient is doing much better today, while more energetic, she was able to ambulate, without any assist devices, not leaning towards the left side as noted by the daughter, urine culture growing 2 gram-negative bacilli, sensitivities currently pending. No fever, however T-max of 99 2, stable vital signs, systolic 1:15, pulse ox 2 L, 96%. Wound is being followed surgically, by Dr. Gregory, Dr. Calvin is still following her for infection. She is still on IV Rocephin, and daptomycin. Obtain kidney ultrasound, evaluate for nephrolithiasis or infected kidney stones. 11/04, patient was seen a bit drowsy today, patient did not sleep well last night, however they've given her her home dose Xanax 1 mg later at night, as the patient is not sleeping, this is her normal 1 mg home dose, the patient has still to process the of the who less than 2 weeks ago, we have offered her the Xanax 0.5 3 times a day when necessary, however this is not taken. Patient was seen drowsy today, answers to questions, however she would drift off back to sleep. Hemoglobin also was dropping significantly, from an entry hemoglobin 13, to current hemoglobin of 7.3. No GI losses are noted, patient does not have any headache, or in the process of obtaining Hemoccult stools, CAT scan of the brain without contrast, patient might need BiPAP if not any better, she might need blood gases. Blood sugars and blood pressures are stable, patient had a T-max of 101 yesterday, renal ultrasound failed to reveal any stone, no hydronephrosis, hold discharge today secondary to somnolence, and hemoglobin drop and the fever blood cultures has been sent to 92% on 5 L nasal cannula, patient's on IV Rocephin for UTI, and daptomycin, for osteomyelitis left foot urine culture, growing Klebsiella pneumonia resistant to ampicillin, , Proteus mirabilis, resistant to nitrofurantoin and tetracycline. We've held gabapentin, and Xanax home dose held, and [place] was held, secondary to hypersomnolence 11/05/2021 Picking up coverage for Dr. Thompson today. Patient is evaluated today resting in bed. She continues to be drowsy but is alert. She reports feeling sleepy today. Her main complaint is pain to her left foot, currently is dressed with kerlex. She continues on IV antibiotics in the form of daptomycin and ceftriaxone. Infectious disease is following patient. Urine culture showing klebsiella and proteus. Blood culture negative so far. Hemoglobin remains stable at 7.6, no signs of acute bleeding, she received 2 doses of IV ferrlecit. Sodium today 134, potassium 5.2, BUN 38, creatinine 1.81. Blood glucose in the 150s. Patient is now requiring 5L nasal cannula and chest xray follow up completed showing vascular congestion versus pneumonia. Repeat BNP found to be 77,600 will give a dose of IV lasix. Fluids have been discontinued, patient dose have an EF of 30 to 35%. Cardiology is following the patient closely. Vascular surgery is following the patient and recommends to continue santyl cream daily to lateral left foot recommending vascular intervention when stable. 11/06/2021 Patient reports breathing has improved today, she is more awake. She is alert x 3, family at the bedside. She received a dose of IV lasix last night and today oxygen saturations have improved to 96%. Creatinine also improved down to 1.64. She has been resumed on oral lasix by cardiology today. Continues on iv daptomycin, iv ceftriaxone. Infectious disease following. Cardiology has discussed AICD with patient. Labs reviewed white count 8.7, hgb improved 8.3. Sodium 136, potassium 4.5, BUN 38, creatinine 1.64, blood glucose in the 140s, calcium 8.0, magnesium 1.7. 11/07/2021 Patient evaluated today she is slightly confused but is able to state her name, , location and she is able to tell me what brought her into the hospital. Overnight oxygen demand increased and she is now on 9L Hi flow cannula with oxygen saturation in the mid 90s. She did receive a 20 mg IV lasix dose around 0400, Cardiology has started patient on IV lasix 40 Q12. Repeat chest xray showing pleural effusion correlate for pulmonary edema consider diffuse pneumonia. Images refused and effusion appears worsening in the right lung. Labs today showing white count 5.9, hgb 7.7, sodium 133, potassium 4.4, BUN 33, creatinine 1.59, blood glucose in the 130s, calcium 7.5, magnesium 1.8. Covid is negative. She is afebrile, blood pressure 126/66. Infectious disease is following. She continues on IV daptomycin, IV ceftriaxone. 11/08/2021 Patient is seen in follow-up this morning continues to be confused although able to answer some questions appropriately. Multiple medical consultations following including vascular surgery, infectious disease, cardiology. Patient continues with shortness of breath and is maintained on IV Lasix. Patient continues to require oxygen at 8 L high flow although found on exam on room air today as she continues to remove her oxygen. Encourage the patient along with nursing staff to continue oxygen supplementation. Wean as tolerated. Patient was maintained on when necessary breathing treatments although will make scheduled and continue with when necessary. Will consult pulmonary with concerns for pneumonia. Patient reports she is eating although unsure of how accurate this is. Will also order incentive spirometer. Also order pro calcitonin along with sputum culture, repeat urinalysis, sed rate, CRP and follow-up on labs. Will also add performer wrist and again will consult pulmonary and appreciate input and recommendations. CT of the chest is ordered. Most recent CBC yesterday was 7.7 and will follow-up with repeat labs as well. Patient is afebrile and denies chest pain at this time. Daughter called the nurse asking to restart her gabapentin although given her confusion will monitor closely at this time. Patient is extremely weak and will have physical therapy evaluate the patient. Also recommend orthostatic vital signs. 11/09/2021 Patient is seen and evaluated today and appears more awake and alert. Patient continues with weakness and is working with PT/OT. Multiple medical consultations following and have consulted pulmonary and appreciate input and recommendations. Patient is continued on IV antibiotics along with IV lasix and will continue. Continue to encourage incentive spirometer and breathing treatments. Encouraged oral intake and increased activity as tolerated. Patient is afebrile and denies worsening shortness of breath. Patient denies chest pain. LFT's noted to be significantly elevated along with procalcitonin. Patient does have picc for osteo of the left foot. 11/10/2021 Patient is seen today in follow up on the med surg unit and mentation appears improved. Patient is up and walking with staff and sitting up in the chair. Patient currently on 4L via NC and takes oxygen off frequently and was documented as 98% on room air although 92% on 4L. Encouraged to increase activity as tolerated and continue using incentive spirometer and duonebs. Wean FI02 as tolerated. Patient is afebrile and is continued with a PICC line with IV abx and ID following for chronic osetomyelitis of the left foot. Recommend to continue with local wound care. Patient is afebrile and denies chest pain or shortness of breath. Will continue IV lasix for 24 hours with follow up labs and monitor kidney functions closely. 11/11/2021 Patient is evaluated today with multiple medical consultations following. Patient is continued on IV lasix along with breathing treatments and IV abx and is being closely monitored. Mentation is improved and patient is maintained on 4L via NC with 02 of 98%. Encouraged IS use and weaning FI02 as tolerated. Patient chest xray shows some worsening CHF and continues on lasix 40bid IV. A dose of metolazone is being given. Recommend labs and chest xray in the am. PT/OT to evaluate in am. Patient is afebrile and denies chest pain or worsening shortness of breath. Review of Systems Constitutional: Reports fatigue. denied any fever. Cardio vascular: denied any chest pain, palpitations Gastrointestinal: denied any nausea, vomiting, diarrhea Pulmonary: Denied any worsening shortness of breath cough Neurologic denied any new focal deficits Active Medications Albuterol/Ipratropium (Ipratropium-Albuterol 3 Ml Neb) 3 ml INHALATION RT-Q4H PRN PRN Reason: Shortness Of Breath Or Wheezing Last Admin: 11/08/21 08:03 Dose: 3 ml Albuterol/Ipratropium (Ipratropium-Albuterol 3 Ml Neb) 3 ml INHALATION RT-QID [facility] Last Admin: 11/11/21 19:24 Dose: 3 ml Amiodarone HCl (Amiodarone 200 Mg Tab) 200 mg PO DAILY [facility] Last Admin: 11/11/21 08:06 Dose: 200 mg Apixaban (Apixaban 2.5 Mg Tablet) 2.5 mg PO BID [facility]; Protocol Last Admin: 11/11/21 20:46 Dose: 2.5 mg Budesonide (Budesonide 0.25 Mg/2 Ml Nebu) 0.25 mg INHALATION RT-BID [facility] Last Admin: 11/11/21 19:24 Dose: 0.25 mg Collagenase (Collagenase 250 Unit/Gm Ointment 30 Gm Tube) 1 applic TOPICAL HS [facility]; Protocol Last Admin: 11/11/21 20:47 Dose: 1 applic Duloxetine HCl (Duloxetine Hcl 60 Mg Capsule.Dr) 60 mg PO DAILY [facility] Last Admin: 11/11/21 08:06 Dose: 60 mg Folic Acid (Folic Acid 1 Mg Tab) 1 mg PO DAILY@1200 [facility] Last Admin: 11/11/21 11:56 Dose: 1 mg Formoterol Fumarate (Formoterol Fumarate 20 Mcg/2 Ml Nebu) 20 mcg INHALATION RT-BID [facility] Last Admin: 11/11/21 19:24 Dose: 20 mcg Furosemide (Furosemide 10 Mg/Ml 4 Ml Vial) 40 mg IV Q12HR [facility] Last Admin: 11/11/21 22:20 Dose: Not Given Ceftriaxone Sodium 1 gm/ (Sodium Chloride) 50 mls @ 100 mls/hr IVPB Q24H [facility]; Protocol Last Admin: 11/11/21 23:09 Dose: 100 mls/hr Daptomycin 500 mg/ Sodium (Chloride) 50 mls @ 100 mls/hr IVPB Q24H [facility]; Protocol Last Admin: 11/11/21 11:57 Dose: 100 mls/hr Insulin Aspart (Insulin Aspart (Novolog) 100 Unit/Ml Vial) 0 unit SQ [facility]; Protocol Last Admin: 11/11/21 20:48 Dose: 2 unit Insulin Detemir (Insulin Detemir (Levemir) 100 Unit/Ml Syr) 8 unit SQ DAILY@0700 [facility] Last Admin: 11/11/21 08:06 Dose: 8 unit Magnesium Oxide (Magnesium Oxide 400 Mg Tab) 400 mg PO DAILY [facility] Last Admin: 11/11/21 08:06 Dose: 400 mg Melatonin (Melatonin 3 Mg Tablet) 6 mg PO [facility] Last Admin: 11/11/21 20:46 Dose: 6 mg Metoprolol Tartrate (Metoprolol Tartrate 25 Mg Tab) 25 mg PO [facility] Last Admin: 11/11/21 20:46 Dose: Not Given Miscellaneous Information (Magnesium Replacement Protocol 1 Each Misc) 1 each MISCELLANE DAILY PRN; Protocol PRN Reason: Per Protocol Miscellaneous Information (Magnesium Replacement Protocol 1 Each Misc) 1 each MISCELLANE DAILY PRN; Protocol PRN Reason: Per Protocol Montelukast Sodium (Montelukast 10 Mg Tab) 10 mg PO [facility] Last Admin: 11/11/21 20:46 Dose: 10 mg Multivitamins (Multivitamins, Thera 1 Each Tab) 1 each PO DAILY@1200 [facility] Last Admin: 11/11/21 11:56 Dose: 1 each Naloxone HCl (Naloxone 0.4 Mg/Ml 1 Ml Vial) 0.2 mg IV Q2M PRN PRN Reason: Opioid Reversal Non-Formulary Medication (Lumateperone Tosylate [Caplyta]) 42 mg PO DAILY [facility] Last Admin: 11/11/21 08:07 Dose: Not Given Ondansetron HCl (Ondansetron 4 Mg/2 Ml Vial) 4 mg IVP Q6HR PRN PRN Reason: Nausea And Vomiting Last Admin: 11/06/21 12:46 Dose: 4 mg Thiamine HCl (Thiamine 100 Mg Tab) 100 mg PO DAILY@1200 [facility] Last Admin: 11/11/21 11:57 Dose: 100 mg Physical Examination Gen: This is a 71 year-old obese female. sitting up in the chair, more awake and alert, currently maintained on 4L of 02 via NM HEENT: Head is atraumatic, normocephalic. Pupils equal, round. Sclerae is anicteric. NECK: Supple. No JVD. No lymphadenopathy. No thyromegaly. LUNGS: Lungs are diminished bilaterally more so on the right with some scattered rhonchi and fine crackles noted at the bases HEART: S1, S2 are muffled ABDOMEN: Soft. Bowel sounds are present. No masses. No tenderness. EXTREMITIES: No pedal edema. No calf tenderness. Right great toe amputation, right second toe has small abrasion. Left foot dressed in kerlex NEUROLOGICAL: Patient is awake, alert and oriented to person and place. Cranial nerves 2 through 12 are grossly intact. Diffusely weak Assessment: -Acute hypoxic respiratory failure secondary to acute CHF exacerbation -Possible right lobe pneumonia -Elevated LFT's, trending down -Acute kidney injury and chronic kidney disease stage III -acute on Chronic systolic and diastolic heart failure, acute exacerbation -Acute metabolic encephalopathy secondary to sepsis and osteomyelitis, improved -Osteomyelitis in the left foot -Urinary tract infection, present on admission with Proteus mirabilis and Klebsiella pneumonia noted in the cultures -Elevated troponins, likely from infection, ACS ruled out by cardiology. -Ischemic cardiomyopathy with EF 30% -COPD without exacerbation. -Paroxysmal atrial fibrillation. -Coronary artery disease with history of 4 vessel CABG in 2014, PCI in 2020 -Diabetes Mellitus type 2 -History of DVT and pulmonary embolism. -History of CVA and mild memory loss. -History of Hypertension -Hyperlipidemia -Diabetic neuropathy -Anxiety/depression exacerbated by recent loss of her -History of PVD with previous vascular stenting -GI prophylaxis. Protonix. -DVT prophylaxis. Eliquis. -CODE STATUS: NO code. Plan: Recommend continue with current medications and management and IV antibiotics with ID following. Patient is maintained on IV Lasix twice daily with cardio logy following and pulmonary following as well. Patient denies shortness of breath and is maintaining oxygen saturations of 98% on 4L via NC. Patient is sitting up in the chair and per nursing staff has been up and walking. Mentation much improved. LFTs trending down and other labs within normal limits. Vascular surgery following an recommend continue with wound care and will have close outpatient follow-up. Chest xray shows some worsening of CHF. Recommend repeat labs and chest xray in am. Social work following and patient will be going home on discharge with daughter. PT/OT to evaluate the patient in the am. Due to multiple complex medical issues, prognosis is extremely guarded. The impression and plan of care has been dictated as a scribe by Lauren Castaneda, nurse practitioner as directed. MD Devon I have performed a history and examination and MDM of this patient, discussed the same with the dictator and has been documented as a scribe. Based on total visit time, I have performed more than 50% of the visit. Objective - Vital Signs Vital signs: Vital Signs Temp 98.4 F 11/11/21 04:43 Pulse 88 11/11/21 04:43 Resp 16 11/11/21 04:43 BP 111/57 11/11/21 04:43 Pulse Ox 92 L 11/11/21 04:43 FiO2 Intake & Output 11/10/21 11/10/21 11/11/21 06:59 18:59 06:59 Intake Total 50 Output Total 2 Balance 48 Weight 61.5 kg 66.5 kg Intake: Intake, IV Titration 50 Amount DAPTOmycin 500 mg In 50 Sodium Chloride 0.9% 50 ml @ 100 mls/hr IVPB Q24H [facility] Rx#:[id number] Output: Urine/Stool Mix 2 Other: Voiding Method Diaper Toilet Toilet Incontinent Diaper Diaper Incontinent Incontinent # Voids 1 3 # Bowel Movements 1 - Labs CBC & Chem 7: 11/10/21 04:37 11/11/21 08:22 Labs: Abnormal Lab Results - Last 24 Hours (Table) 11/10/21 11/10/21 11/10/21 Range/Units 06:50 11:08 17:07 POC Glucose (mg/dL) 122 H 127 H 213 H (70-110) mg/dL 11/10/21 Range/Units 20:01 POC Glucose (mg/dL) 185 H (70-110) mg/dL
[2021-11-12 05:46] LABS: Anisocytosis Slight; Basophils % (A) 0 %; Eosinophils # (A) 0.5 k/uL (0-0.7); Eosinophils % (A) 6 %; HCT 34.1 % (34.0-46.0); HGB 10.9 gm/dL (11.4-16.0); Hypochromasia Moderate; Lymphocytes # (A) 2.2 k/uL (1.0-4.8); Lymphocytes % (A) 26 %; MCH 29.6 pg (25.0-35.0); MCV 92.5 fL (80.0-100.0); Mean Platelet Volume 7.7; Monocytes # (A) 0.5 k/uL (0-1.0); Monocytes % (A) 5 %; Neutrophils # (A) 5.3 k/uL (1.3-7.7); Neutrophils % (A) 61 %; Platelet Count 320 k/uL (150-450); RBC 3.69 m/uL (3.80-5.40); RDW 17.3 % (11.5-15.5); WBC 8.7 k/uL (3.8-10.6)
[2021-11-12 05:55] LABS: ALT 234 U/L (4-34); AST 136 U/L (14-36); African American GFR (CKD) 33 (>60 ml/min/1.73 sqM); Albumin 3.5 g/dL (3.5-5.0); Albumin/Globulin Ratio 0.9; Alkaline Phosphatase 336 U/L (38-126); Anion Gap 11 mmol/L; Blood Urea Nitrogen 28 mg/dL (7-17); Calcium 8.3 mg/dL (8.4-10.2); Carbon Dioxide 26 mmol/L (22-30); Chloride 96 mmol/L (98-107); Globulin 4.1 g/dL; Glucose 148 mg/dL (74-99); Non-African American GFR(CKD) 29 (>60 ml/min/1.73 sqM); Potassium 3.6 mmol/L (3.5-5.1); Sodium 133 mmol/L (137-145); Total Bilirubin 1.1 mg/dL (0.2-1.3); Total Protein 7.6 g/dL (6.3-8.2)
[2021-11-12 06:53] LABS: Glucose,Whole Blood 165 mg/dL (70-110)
[2021-11-12] MEDS: NON FORMULARY DRUG (Lumateperone Tosylate [Caplyta] 42 MG Capsule) PO SCH (08:04)
[2021-11-12] MEDS: INSULIN ASPART (NovoLOG) 100 UNIT/ML VIAL SQ SCH ×2 (08:05→13:02)
[2021-11-12] MEDS: AMIODARONE 200 MG TAB PO SCH (08:05)
[2021-11-12] MEDS: DULoxetine HCL 60 MG CAPSULE.DR PO SCH (08:05)
[2021-11-12] MEDS: FUROSEMIDE 10 MG/ML 4 ML VIAL IV SCH (08:05)
[2021-11-12] MEDS: APIXABAN 2.5 MG TABLET PO SCH (08:05)
[2021-11-12] MEDS: MAGNESIUM OXIDE 400 MG TAB PO SCH (08:05)
[2021-11-12] MEDS: INSULIN DETEMIR (LEVEMIR) 100 UNIT/ML SYR SQ SCH (08:06)
[2021-11-12] MEDS: FORMOTEROL FUMARATE 20 MCG/2 ML NEBU INHALATION SCH (08:41)
[2021-11-12] MEDS: BUDESONIDE 0.25 MG/2 ML NEBU INHALATION SCH (08:41)
[2021-11-12] MEDS: IPRATROPIUM-ALBUTEROL 3 ML NEB INHALATION SCH ×3 (08:42→15:57)
--- NOTE | 2021-11-12 10:25 | XR ---
EXAMINATION TYPE: XR chest 1V portable DATE OF EXAM: 11/12/2021 COMPARISON: Chest x-ray dated 11/11/2021 HISTORY: Shortness of breath TECHNIQUE: Single frontal view of the chest is obtained. FINDINGS: There is some improvement in aeration within the lungs. Prominent interstitium persists. T here is a left-sided PICC line, distal tip is near the cavoatrial junction level. Patient is post med scooby sternotomy. Aorta is dense. No pneumothorax or pleural effusion evident. Cardiac and mediastinal silhouette is unchanged. IMPRESSION: Suspect some improvement in aeration, volume status
--- NOTE | 2021-11-12 10:27 | P.PN ---
Subjective Progress Note Date: 11/12/21 Principal diagnosis: Dyspnea, altered mentation This is a 71-year-old female with history of multiple medical problems including type 2 diabetes, diabetic neuropathy and diabetic foot ulcers, hypertension, dyslipidemia, history of CVA in 2013, coronary artery disease and previous CABG 4 history of mild intermittent asthma, and history of chronic osteomyelitis of the right foot. Multiple amputations of toes from right and left foot. Patient was recently hospitalized at [facility] for osteomyelitis and cellulitis of the left foot requiring debridement and she was treated with daptomycin by infectious disease. Patient was admitted this time to [facility] on 11/02/2021, and her admission diagnosis was altered mental status, and metabolic encephalopathy. Since then the patient has been seen by many consultants including infectious disease, internal medicine, cardiology, and at one point she had a chest x-ray showing evidence of pulmonary edema. Patient was treated with diuretics, and recent follow-up chest x-ray and CT of the chest questioned underlying pneumonia. Hence this consult was initiated. Overall patient has been steadily improving since admission, her mental status is improving but nonetheless she remains confused at times. I reviewed the chest x-ray, I also reviewed the CT of the chest, it is rather difficult to tell how m uch of the findings are related to pulmonary edema or underlying pneumonia. However the patient is on diuretic she is also on antibiotics and seems to be responding well clinically, hence I'm not recommending any changes in her present course of treatment. Patient does have significantly elevated BNP she also has significantly elevated pro calcitonin. On 11/10/2021 patient seen in follow-up on medical surgical floor, she is awake and alert, oriented to place and time. She states she is feeling much better, she sits up in the recliner, breathing comfortable, vital signs are stable, patient is afebrile, room air pulse ox is 98%. Her chest x-ray from yesterday showed improving bilateral diffuse lung infiltrates. She continues on diuretics, and antibiotics for left foot osteomyelitis in the form of ceftriaxone and daptomycin. ID service is following. Today's labs have been reviewed, white blood cell count is 7.8, hemoglobin is 8.5, sodium is 133, the rest of the electrolytes are within normal limits, renal function shows slight worsening of creatinine, which is up to 1.62, BUN is 25. Pro calcitonin level came back elevated at 3.90, CRP was 19.6, urinalysis showed acute urinary tract infection, follow-up urinalysis shows no evidence of infection, COVID-19 PCR was negative. Urine culture showed Klebsiella pneumonia and Proteus mild was, blood cultures have been negative. On 11/11/2021 patient seen in follow-up on medical surgical floor. She is awake, sitting up in the chair, answering questions appropriately, she is oriented 3, denies any respiratory distress, no cough, lung sounds are clear, however her chest x-ray findings from today showing worsening pulmonary vascular prominence, and diffuse increased lung markings, findings consistent with worsening CHF. Today's labs have been reviewed, renal profile is relatively stable, slightly improved from yesterday, B1 is 25, creatinine is 1.58, sodium is 135, the rest of electrolytes are within normal limits. Patient continues on IV Lasix 40 mg every 12 hours, she is on antibiotics with Rocephin and daptomycin per ID service. He denies any cough or phlegm production, no hemoptysis no chest pain. Her urine culture was positive for Klebsiella pneumonia and Proteus mirabilis, blood cultures have been negative. On 11/12/2021 patient seen in follow-up on medical surgical floor. She is awake and alert, resting comfortably in bed, no worsening dyspnea, she is breathing comfortably, mentation is appropriate, she is answering appropriately. On 4 L of oxygen pulse ox is 94%, we gave the patient a dose of Zaroxolyn in addition to Lasix yesterday, today's chest x-ray showing improvement in the appearance of pulmonary vascular congestion. She remains on antibiotics for left foot osteomyelitis. Vitals have been stable, she's had no fever or chills, today's labs have been noted, renal function slightly worse compared to yesterday, with BUN of 28 and creatinine of 1.75. Patient denies any chest pain, no cough, no wheezing, no phlegm production. Objective - Vital Signs Vital signs: Vital Signs Temp 98.6 F 11/12/21 04:39 Pulse 94 11/12/21 09:00 Resp 16 11/12/21 04:39 BP 134/66 11/12/21 04:39 Pulse Ox 94 L 11/12/21 08:42 FiO2 Intake & Output 07/11/12/21 11/12/21 18:59 06:59 18:59 Intake Total 50 Balance 50 Weight 63.1 kg Intake: Intake, IV Titration 50 Amount DAPTOmycin 500 mg In 50 Sodium Chloride 0.9% 50 ml @ 100 mls/hr IVPB Q24H [facility] Rx#:[id number] Other: Voiding Method Toilet Toilet Diaper Diaper Incontinent Incontinent # Voids 3 3 1 - Exam GENERAL EXAM: Alert, very pleasant, 71-year-old white female on room air with pulse ox of 98% comfortable in no apparent distress. HEAD: Normocephalic/atraumatic. EYES: Normal reaction of pupils, equal size. Conjunctiva pink, sclera white. NOSE: Clear with pink turbinates. THROAT: No erythema or exudates. NECK: No masses, no JVD, no thyroid enlargement, no adenopathy. CHEST: No chest wall deformity. Symmetrical expansion. LUNGS: Equal air entry with no crackles, wheeze, rhonchi or dullness. CVS: Regular rate and rhythm, normal S1 and S2, no gallops, no murmurs, no rubs ABDOMEN: Soft, nontender. No hepatosplenomegaly, normal bowel sounds, no guarding or rigidity. EXTREMITIES: No clubbing, no edema, no cyanosis, 2+ pulses and upper and lower extremities. Left foot lateral border show some soft tissue and some surrounding deep tissue injury, no foul-smelling drainage, multiple toes amputation is noted in both feet MUSCULOSKELETAL: Muscle strength and tone normal. SPINE: No scoliosis or deformity SKIN: No rashes, CENTRAL NERVOUS SYSTEM: Alert and oriented -3. No focal deficits, tone is normal in all 4 extremities. PSYCHIATRIC: Alert and oriented -3. Appropriate affect. Intact judgment and insight. - Labs CBC & Chem 7: 11/12/21 04:23 11/12/21 04:23 Labs: Abnormal Lab Results - Last 24 Hours (Table) 11/11/21 11/11/21 11/11/21 Range/Units 10:52 12:21 17:10 RBC (3.80-5.40) m/uL Hgb (11.4-16.0) gm/dL RDW (11.5-15.5) % Sodium (137-145) mmol/L Chloride (98-107) mmol/L BUN (7-17) mg/dL Creatinine (0.52-1.04) mg/dL Glucose (74-99) mg/dL POC Glucose (mg/dL) 134 H 142 H 211 H (70-110) mg/dL Calcium (8.4-10.2) mg/dL AST (14-36) U/L ALT (4-34) U/L Alkaline Phosphatase (38-126) U/L 11/11/21 11/12/21 11/12/21 Range/Units 20:21 04:23 04:23 RBC 3.69 L (3.80-5.40) m/uL Hgb 10.9 L (11.4-16.0) gm/dL RDW 17.3 H (11.5-15.5) % Sodium 133 L (137-145) mmol/L Chloride 96 L (98-107) mmol/L BUN 28 H (7-17) mg/dL Creatinine 1.75 H (0.52-1.04) mg/dL Glucose 148 H (74-99) mg/dL POC Glucose (mg/dL) 201 H (70-110) mg/dL Calcium 8.3 L (8.4-10.2) mg/dL AST 136 H (14-36) U/L ALT 234 H (4-34) U/L Alkaline Phosphatase 336 H (38-126) U/L 11/12/21 Range/Units 06:51 RBC (3.80-5.40) m/uL Hgb (11.4-16.0) gm/dL RDW (11.5-15.5) % Sodium (137-145) mmol/L Chloride (98-107) mmol/L BUN (7-17) mg/dL Creatinine (0.52-1.04) mg/dL Glucose (74-99) mg/dL POC Glucose (mg/dL) 165 H (70-110) mg/dL Calcium (8.4-10.2) mg/dL AST (14-36) U/L ALT (4-34) U/L Alkaline Phosphatase (38-126) U/L Assessment and Plan Plan: Assessment: #1. Acute metabolic encephalopathy, resolved #2. Acute on chronic systolic CHF exacerbation, with the possibility of healthcare acquired pneumonia #3. Acute urinary tract infection related to Klebsiella pneumoniae and Proteus mirabilis #4. Osteoarthritis of left foot, chronic #5. Severe ischemic cardiomyopathy with LV dysfunction and ejection fraction of 30% #6. Paroxysmal atrial fibrillation on Apixaban for anticoagulation #7. Benign essential hypertension #8. History of CVA #9. History of CVA #10. Chronic kidney disease #11. Type 2 diabetes mellitus with neuropathy and nephropathy #12. Dyslipidemia Plan: Today's chest x-ray showing improving CHF Patient continues on IV Lasix, continue antibiotics per ID service recommendations No worsening dyspnea, lung sounds are clear From pulmonary perspective she can be considered for discharge home when cleared by other consultants on the case I have personally seen and examined the patient, performed the documentation and the assessment and plan as written. Number of minutes spent on the visit: [10] Time with Patient: Less than 30
[2021-11-12 11:09] LABS: Glucose,Whole Blood 132 mg/dL (70-110)
[2021-11-12 12:33] VITALS: BP 92/53; PULSE 89; TEMP 98.9
[2021-11-12] MEDS: DAPTOmycin 500 MG in SODIUM CHLORIDE 0.9% 50 ML IVPB SCH (12:41)
[2021-11-12] MEDS: FOLIC ACID 1 MG TAB PO SCH (13:02)
[2021-11-12] MEDS: THIAMINE 100 MG TAB PO SCH (13:02)
[2021-11-12] MEDS: MULTIVITAMINS, THERA 1 EACH TAB PO SCH (13:02)
[2021-11-13] MEDS ORDERED: DAPTOmycin 500 MG in SODIUM CHLORIDE 0.9% 50 ML IVPB SCH (09:00)
--- NOTE | 2021-11-14 02:59 | P.DS ---
Providers Date of admission: 11/01/21 17:53 Expected date of discharge: 11/12/21 Attending physician: Mikel Delong Consults: 11/01/21 21:42 Consult Physician Routine Consulting Provider: Rustam Gregory Consult Reason/Comments: Osteomyelitis of the foot Do you want consulting provider notified?: Yes Consult Physician Routine Consulting Provider: Singh Mccabe Consult Reason/Comments: Osteomyelitis of the foot Do you want consulting provider notified?: Yes 11/02/21 11:40 Consult Physician Routine Consulting Provider: Ovidio Paredes Consult Reason/Comments: elevated trops Do you want consulting provider notified?: Yes 11/09/21 07:15 Consult Physician Urgent Consulting Provider: Marine Rojas Consult Reason/Comments: PNA/hypoxia Do you want consulting provider notified?: Yes Primary care physician: Jacob Sanderson [facility] Course: Final diagnosis -Acute hypoxic respiratory failure secondary to acute CHF exacerbation -Possible right lobe pneumonia -Elevated LFT's, trending down -Acute kidney injury and chronic kidney disease stage III -acute on Chronic systolic and diastolic heart failure, acute exacerbation -Acute metabolic encephalopathy secondary to sepsis and osteomyelitis, improved -Osteomyelitis in the left foot -Urinary tract infection, present on admission with Proteus mirabilis and Klebsiella pneumonia noted in the cultures -Elevated troponins, likely from infection, ACS ruled out by cardiology. -Ischemic cardiomyopathy with EF 30% -COPD without exacerbation. -Paroxysmal atrial fibrillation. -Coronary artery disease with history of 4 vessel CABG in 2014, PCI in 2020 -Diabetes Mellitus type 2 -History of DVT and pulmonary embolism. -History of CVA and mild memory loss. -History of Hypertension -Hyperlipidemia -Diabetic neuropathy -Anxiety/depression exacerbated by recent loss of her -History of PVD with previous vascular stenting -GI prophylaxis. Protonix. -DVT prophylaxis. Eliquis. -CODE STATUS: NO code. Discharge disposition Patient is being discharged in a stable condition with guarded prognosis to home with home care. Patient will follow-up with Dr. Velasco in the outpatient setting upon discharge. Patient is to also follow up with vascular, ID, pulmonary as scheduled. Total time taken is greater than 35 minutes. Hospital course This is a 71-year-old female who was recently admitted with multiple medical issues including altered mental status and chronic osteo of the left foot and has been followed outpatient with ID and vascular and is maintained on a PICC line with continued daptomycin for another 4 weeks. Patient was also found to have chf acute exacerbation with systolic dysfunction and some pneumonia. Patient has slowly improved and has been also treated for UTI which has received adequate IV abx per ID. Patient continues with weakness and refuses rehab. Patient will go home with daughter and have homecare. Patient is extremely anxious to go home and has been cleared by consultants for discharge. Patient chronically wears 02 in the outpatient setting at 4L. Currently no reports of chest pain, shortness of breath, or palpitations. Patient is afebrile. No reports of nausea or vomiting and patient is tolerating diet. Patient will be discharged home today. Guarded prognosis. Physical exam: Gen: This is a 71 year old who is awake alert and oriented x2-3. Ill appearing. HEENT: Head is atraumatic, normocephalic. Pupils equal, round. Sclerae is anicteric. NECK: Supple. No JVD. No lymphadenopathy. No thyromegaly. LUNGS: diminished breath sounds bilaterally with scattered rhonchi. No intercostal retractions. HEART: s1, s2 muffled ABDOMEN: Soft. Bowel sounds are present. No masses. No tenderness. EXTREMITIES: No pedal edema. No calf tenderness. NEUROLOGICAL: Patient is awake, alert and oriented x2-3. Cranial nerves 2 through 12 are grossly intact. diffusely weak Please refer to medication reconciliation sheet for a list of medications. The impression and plan of care has been dictated by Lauren Castaneda, Nurse Practitioner as directed. Dr. Yeison MD I have performed a history and examination and MDM of this patient, discussed the same with the dictator, and agree with the dictator's assessment and plan as written ,documented as a scribe. Based on total visit time, I have performed more than 50% of the visit. Patient Condition at Discharge: Fair Plan - Discharge Summary Discharge Rx Participant: No New Discharge Prescriptions: New DAPTOmycin 500 mg IVPB Q48H each Ipratropium-Albuterol Nebulize [Duoneb 0.5 mg-3 mg/3 ml Soln] 3 ml INHALATION RT-Q4H PRN each PRN Reason: Shortness Of Breath Or Wheezing Magnesium Oxide [Mag-Ox] 400 mg PO DAILY 30 Days #30 tab INSULIN ASPART (NovoLOG) [NovoLOG (formulary)] 0 unit SQ ACHS each Ipratropium-Albuterol Nebulize [Duoneb 0.5 mg-3 mg/3 ml Soln] 3 ml INHALATION RT-QID 30 Days #90 each Folic Acid 1 mg PO DAILY@1200 #30 tab Multivitamins, Thera [Multivitamin (formulary)] 1 each PO DAILY@1200 #30 tab Budesonide [Pulmicort] 0.25 mg INHALATION RT-BID 30 Days #30 each Collagenase [Santyl Ointment] 1 applic TOPICAL HS 30 Days #1 each Thiamine [Vitamin B-1] 100 mg PO DAILY@1200 #30 tab Continue Albuterol Sulfate [Proair Hfa] 2 puff INHALATION RT-Q6H PRN PRN Reason: Shortness Of Breath Insulin Glargine,Hum.rec.anlog [Lantus Solostar Pen] 8 unit SQ DAILY Metoprolol Tartrate [Lopressor] 25 mg PO HS Atorvastatin [Lipitor] 80 mg PO DAILY Amiodarone [Cordarone] 200 mg PO DAILY ALPRAZolam [Xanax] 1 mg PO HS PRN PRN Reason: Anxiety Montelukast Sodium [Singulair] 10 mg PO HS DULoxetine HCL [Cymbalta] 60 mg PO DAILY Furosemide [Lasix] 40 mg PO DAILY HYDROcodone/APAP 5-325MG [[place] 5-325] 1 tab PO BID PRN PRN Reason: Pain Gabapentin [Neurontin] 300 mg PO HS Apixaban [Eliquis] 2.5 mg PO BID Lumateperone Tosylate [Caplyta] 42 mg PO DAILY Discontinued Insulin Aspart [NovoLOG Flexpen] 12 units SQ ACHS amLODIPine [Norvasc] 10 mg PO DAILY Spironolactone 100 mg PO DAILY Discharge Medication List Albuterol Sulfate [Proair Hfa] 2 puff INHALATION RT-Q6H PRN 06/16/20 [History] Montelukast Sodium [Singulair] 10 mg PO HS 07/15/20 [History] DULoxetine HCL [Cymbalta] 60 mg PO DAILY 08/29/20 [History] Insulin Glargine,Hum.rec.anlog [Lantus Solostar Pen] 8 unit SQ DAILY 05/16/21 [History] Furosemide [Lasix] 40 mg PO DAILY 08/08/21 [History] ALPRAZolam [Xanax] 1 mg PO HS PRN 11/01/21 [History] Amiodarone [Cordarone] 200 mg PO DAILY 11/01/21 [History] Apixaban [Eliquis] 2.5 mg PO BID 11/01/21 [History] Atorvastatin [Lipitor] 80 mg PO DAILY 11/01/21 [History] Gabapentin [Neurontin] 300 mg PO HS 11/01/21 [History] HYDROcodone/APAP 5-325MG [[place] 5-325] 1 tab PO BID PRN 11/01/21 [History] Lumateperone Tosylate [Caplyta] 42 mg PO DAILY 11/01/21 [History] Metoprolol Tartrate [Lopressor] 25 mg PO HS 11/01/21 [History] Budesonide [Pulmicort] 0.25 mg INHALATION RT-BID 30 Days #30 each 11/12/21 [Rx] Collagenase [Santyl Ointment] 1 applic TOPICAL HS 30 Days #1 each 11/12/21 [Rx] DAPTOmycin 500 mg IVPB Q48H each 11/12/21 [Rx] Folic Acid 1 mg PO DAILY@1200 #30 tab 11/12/21 [Rx] INSULIN ASPART (NovoLOG) [NovoLOG (formulary)] 0 unit SQ ACHS each 11/12/21 [Rx] Ipratropium-Albuterol Nebulize [Duoneb 0.5 mg-3 mg/3 ml Soln] 3 ml INHALATION RT-Q4H PRN each 11/12/21 [Rx] Ipratropium-Albuterol Nebulize [Duoneb 0.5 mg-3 mg/3 ml Soln] 3 ml INHALATION RT-QID 30 Days #90 each 11/12/21 [Rx] Magnesium Oxide [Mag-Ox] 400 mg PO DAILY 30 Days #30 tab 11/12/21 [Rx] Multivitamins, Thera [Multivitamin (formulary)] 1 each PO DAILY@1200 #30 tab 11/12/21 [Rx] Thiamine [Vitamin B-1] 100 mg PO DAILY@1200 #30 tab 11/12/21 [Rx] Follow up Appointment(s)/Referral(s): Marine Rojas MD [STAFF PHYSICIAN] - 12/06/21 2:15 pm [facility], [NON-STAFF] - 1 Week Jacob Sanderson DO [Primary Care Provider] - 11/13/21 2:00 pm Rustam Gregory MD [STAFF PHYSICIAN] - 11/21/21 1:00 pm Alex Soto MD [STAFF PHYSICIAN] - 11/22/21 10:00 am Ambulatory/Diagnostic Orders: Complete Blood Count w/diff [LAB.AMB] Time Frame: 3 Days, Location: None Selected Patient Instructions/Handouts: Thiamine (By mouth), Folic Acid (By mouth), Multivitamins, Adult Formula (By mouth), Budesonide (By breathing), Ipratropium/Albuterol (By breathing), Magnesium Oxide (By mouth), Collagenase (On the skin), Acute Kidney Injury (DC), Urinary Tract Infection in Women (DC) Activity/Diet/Wound Care/Special Instructions: Activity Limited until follow-up Follow-up with primary care provider on discharge Follow-up with cardiology in the next 1-2 weeks Follow-up with pulmonary outpatient Continue medications as prescribed Continue IV antibiotics and follow-up at the wound center Recommend repeat labs in the next 2-3 days Follow-up with vascular surgery outpatient Dr. Gregory Continue with consistent carb (diabetic) diet and monitor blood sugars closely Continue using sliding scale along with long-acting Continue with incentive spirometer at least 10 times every hour while awake along with coughing and deep breathing Patient will continue on IV daptomycin with infectious disease Dr. Mccabe following closely for the next 4 weeks NovoLog sliding scale 0-150 equals 0 units 151-200 equals 2 units 201-250 equals 4 units 251-300 equals 6 units 301-350 equals 8 units 351-400 equals 10 units Please notify provider if blood sugar is 400 or above Continue with oxygen supplementation and breathing inhalational treatments Discharge Disposition: HOME WITH HOME HEALTH SERVICES
== END 2021-11-12 16:11 | disposition home health service (06) | DRG 871 ==
LOC: EC 15:13 → 3SCARD 17:53 → 5NMEDONC 11-09 23:03
PROVIDERS: ADMIT Internal Medicine Geriatric Medicine; ATTEND Internal Medicine Geriatric Medicine
DX: A41.9 Sepsis, unspecified organism (principal); G93.41 Metabolic encephalopathy; I50.43 Acute on chronic combined systolic (congestive) and diastolic (congestive) heart failure; J96.01 Acute respiratory failure with hypoxia; J15.0 Pneumonia due to Klebsiella pneumoniae; F33.9 Major depressive disorder, recurrent, unspecified; I13.0 Hypertensive heart and chronic kidney disease with heart failure and stage 1 through stage 4 chronic kidney disease, or unspecified chronic kidney disease; J44.0 Chronic obstructive pulmonary disease with (acute) lower respiratory infection; M86.672 Other chronic osteomyelitis, left ankle and foot; N17.9 Acute kidney failure, unspecified; N39.0 Urinary tract infection, site not specified; Z16.11 Resistance to penicillins; Z16.29 Resistance to other single specified antibiotic; B96.1 Klebsiella pneumoniae [K. pneumoniae] as the cause of diseases classified elsewhere; E11.22 Type 2 diabetes mellitus with diabetic chronic kidney disease; E11.40 Type 2 diabetes mellitus with diabetic neuropathy, unspecified; E11.51 Type 2 diabetes mellitus with diabetic peripheral angiopathy without gangrene; E11.621 Type 2 diabetes mellitus with foot ulcer; E11.69 Type 2 diabetes mellitus with other specified complication; I69.311 Memory deficit following cerebral infarction; M06.9 Rheumatoid arthritis, unspecified; Z95.828 Presence of other vascular implants and grafts; R65.20 Severe sepsis without septic shock; J45.20 Mild intermittent asthma, uncomplicated; N18.30 Chronic kidney disease, stage 3 unspecified; I08.3 Combined rheumatic disorders of mitral, aortic and tricuspid valves; B95.62 Methicillin resistant Staphylococcus aureus infection as the cause of diseases classified elsewhere; Z63.4 Disappearance and death of family member; F41.1 Generalized anxiety disorder; E78.5 Hyperlipidemia, unspecified; G47.10 Hypersomnia, unspecified; R77.8 Other specified abnormalities of plasma proteins; I25.10 Atherosclerotic heart disease of native coronary artery without angina pectoris; Z66 Do not resuscitate; I25.2 Old myocardial infarction; I25.5 Ischemic cardiomyopathy; I48.0 Paroxysmal atrial fibrillation; R29.6 Repeated falls; Z20.822 Contact with and (suspected) exposure to COVID-19; Z79.01 Long term (current) use of anticoagulants; Z79.4 Long term (current) use of insulin; Z79.899 Other long term (current) drug therapy; Z80.1 Family history of malignant neoplasm of trachea, bronchus and lung; Z82.3 Family history of stroke; Z82.49 Family history of ischemic heart disease and other diseases of the circulatory system; Z83.3 Family history of diabetes mellitus; Z86.711 Personal history of pulmonary embolism; Z86.718 Personal history of other venous thrombosis and embolism; Z87.891 Personal history of nicotine dependence; Z89.411 Acquired absence of right great toe; Z89.422 Acquired absence of other left toe(s); Z95.1 Presence of aortocoronary bypass graft; Z98.61 Coronary angioplasty status; Z87.01 Personal history of pneumonia (recurrent)
CPT/HCPCS: 36415; 70450; 71045; 71046; 71250; 76770; 80048; 80053; 80143; 80179; 80306; 80320; 81001; 82140; 83540; 83550; 83605; 83735; 83880; 84145; 84443; 84484; 85025; 85610; 85652; 85730; 86140; 87040; 87077; 87086; 87186; 87635; 93005; 93306; 94640; 94760; 99285

== ENCOUNTER 2022-02-01 09:26 | Emergency (ER) | payer MEDICARE, OTHER ==
[2022-02-01 09:31] VITALS: RESP 16; TEMP 97.5
[2022-02-01] MEDS ORDERED: ACETAMINOPHEN TAB 500 MG TAB PO STA (10:07)
--- NOTE | 2022-02-01 11:33 | CT ---
EXAMINATION TYPE: CT brain robertine wo con DATE OF EXAM: 02/01/2022 COMPARISON: Brain 11/04/2021 HISTORY: 72-year-old female pain after Fall on thinners CT DLP: 1771.6 mGycm Automated exposure control for dose reduction was used. Technique: Examination of the head was done in axial plane without intravenous contrast. Coronal and sagittal reconstructions performed. CT of the cervical spine was obtained in axial plane without intravenous injection of contrast mater ial. Coronal and sagittal reformatted images were obtained from the axial views for evaluation of f ractures, spinal alignment and canal. FINDINGS: Head: There is no evidence of acute intracranial hemorrhage, acute ischemic changes, mass, mass-effect, or extra-axial fluid collection. There is no effacement of cerebral sulci or basal subarachnoid cister ns. There is no hydrocephalus. There is no midline shift. Celaya-white matter distinction is preserv ed. Chronic encephalomalacia posterior right parietal lobe and right parieto-occipital junction. Old lacu imelda infarct right basal ganglia. Mild patchy white matter hypodensities in both cerebral hemispheres. Questionable mild soft tissue swelling along the left parietal scalp. No calvarial fracture. Moderate mucosal thickening posterior ethmoid air cells on both sides. Mild lobulated mucosal thickening floo r of the left maxillary sinus. Leftward nasal septal deviation. Mastoid air cells are well pneumatize d. Cervical spine: There is moderate underlying emphysema in the visualized upper lungs. There appears to be a layering right-sided pleural effusion. Thickening of the prevertebral soft tissues corresponds to retropharyngeal course of the bilateral IC As. Right carotid artery stent is noted. Degenerative change of the C1 dens articulation. No predental space widening or craniocervical juncti on and the mildly. Reversal of the normal cervical lordosis with degenerative grade 1 anterolisthesis C2-C3, C3-C4, C4-C 5. Multilevel facet and uncovertebral joint arthropathy is present. No acute fracture seen of the cervical spine. Variable mild bilateral neuroforaminal narrowing. There is a 2.1 cm nodule left adrenal gland which warrants further thyroid ultrasound evaluation. Sagittal and coronal reformatted images confirm above findings. COMBINED IMPRESSION: 1. No acute intracranial abnormality seen. Old infarct posterior right parietal lobe and right pariet o-occipital junction. 2. No acute fracture of the cervical spine. Degenerative grade 1 anterolisthesis C2 through C5 levels . 3. A layering right pleural effusion. Correlate as to etiology. Chest radiograph if indicated. Backgr ound moderate COPD. 4. A 2.1 cm nodule of the left adrenal gland. Recommend nonemergent thyroid ultrasound evaluation to determine the need for FNA.
--- NOTE | 2022-02-01 12:00 | ED ---
Fall HPI - General Chief Complaint: Fall Stated Complaint: Fall Time Seen by Provider: 02/01/22 10:02 Source: EMS Mode of arrival: EMS - History of Present Illness Initial Comments: Patient is a 72-year-old female with past medical history of coronary artery disease, heart failure, COPD, diabetes mellitus, hypertension, hyperlipidemia, and CVA who presents to the emergency department with a chief complaint of fall. Patient states she was reaching for her water while laying in bed this morning when she accidentally fell off of the bed, approximately 3 feet. Patient landed on the back of her head. Patient takes Plavix currently. Patient reports mild headache. She denies lightheadedness, dizziness, double vision, blurry vision, chest pain, shortness of breath. Patient states initially her hip her which resolved shortly after the incident. She denies other injury. - Related Data Home Medications Medication Instructions Recorded Confirmed Montelukast Sodium [Singulair] 10 mg PO HS 07/15/20 02/01/22 DULoxetine HCL [Cymbalta] 60 mg PO DAILY 08/29/20 02/01/22 Insulin Glargine,Hum.rec.anlog 8 unit SQ DAILY 05/16/21 02/01/22 [Lantus Solostar Pen] Furosemide [Lasix] 20 mg PO Q48H 08/08/21 02/01/22 Apixaban [Eliquis] 2.5 mg PO BID 11/01/21 02/01/22 Lumateperone Tosylate [Caplyta] 42 mg PO DAILY 11/01/21 02/01/22 Metoprolol Tartrate [Lopressor] 25 mg PO HS 11/01/21 02/01/22 Ascorbic Acid [Vitamin C] 1,000 mg PO DAILY 02/01/22 02/01/22 Cholecalciferol [Vitamin D3 (25 25 mcg PO DAILY 02/01/22 02/01/22 Mcg = 1000 Iu)] Ferrous Sulfate [Feosol] 325 mg PO DAILY 02/01/22 02/01/22 Insulin Aspart [NovoLOG Flexpen] See Protocol SQ AC-TID 02/01/22 02/01/22 Sulfamethox-Tmp 800-160Mg [Bactrim 1 tab PO BID 02/01/22 02/01/22 DS 800-160 mg] Zinc Gluconate [Zinc] 50 mg PO DAILY 02/01/22 02/01/22 traMADol HCL 50 mg PO BID PRN 02/01/22 02/01/22 Allergies Allergy/AdvReac Type Severity Reaction Status Date / Time nickel Allergy Rash/Hives Verified 02/01/22 11:59 levofloxacin [From Levaquin] AdvReac Confusion Verified 02/01/22 11:59 Review of Systems ROS Statement: Those systems with pertinent positive or pertinent negative responses have been documented in the HPI. ROS Other: All systems not noted in ROS Statement are negative. Past Medical History Past Medical History: Asthma, Coronary Artery Disease (CAD), Heart Failure, COPD, CVA/TIA, Diabetes Mellitus, Hyperlipidemia, Hypertension, Pneumonia, Rheumatoid Arthritis (RA) Additional Past Medical History / Comment(s): left GREAT TOE WOUND, with current dressing, partial amputation on 06/28/20. going to hyperbaric chamber 5 days a week, PICC line right arm Last Myocardial Infarction Date:: 2014 History of Any Multi-Drug Resistant Organisms: None Reported Past Surgical History: Adenoidectomy, Appendectomy, Coronary Bypass/CABG, Heart Catheterization, Tonsillectomy, Tubal Ligation Additional Past Surgical History / Comment(s): Open heart on April 13 2015, cabg X4, bilateral carotid endarterectomies,. Right great toe amputation 2015. stent in right leg above knee, elke cataracts. left toe ambutation, 06/18/20 Past Anesthesia/Blood Transfusion Reactions: Previous Problems w/ Anesthesia Additional Past Anesthesia/Blood Transfusion Reaction / Comment(s): diff breathing afterwards Past Psychological History: No Psychological Hx Reported Smoking Status: Former smoker Past Alcohol Use History: None Reported Past Drug Use History: None Reported - Past Family History Father Family Medical History: Coronary Artery Disease (CAD), CVA/TIA, Diabetes Mellitus Mother Family Medical History: Myocardial Infarction ([place]) Additional Family Medical History / Comment(s): "spot on the lung" General Exam Limitations: altered mental status General appearance: alert, in no apparent distress Head exam: Present: other (mild swelling of left parietal scalp wthout hematoma ) Eye exam: Present: normal appearance, PERRL, EOMI. Absent: scleral icterus, conjunctival injection, periorbital swelling Neck exam: Present: normal inspection, full ROM. Absent: tenderness Respiratory exam: Present: normal lung sounds bilaterally. Absent: respiratory distress, wheezes, rales, rhonchi, stridor Cardiovascular Exam: Present: regular rate, normal rhythm, normal heart sounds. Absent: systolic murmur, diastolic murmur, rubs, gallop, clicks Extremities exam: Present: normal capillary refill Neurological exam: Present: alert, oriented X3, CN II-XII intact Psychiatric exam: Present: normal affect, normal mood Skin exam: Present: warm, dry, intact, normal color. Absent: rash Course Vital Signs 02/01/22 02/01/22 09:27 12:25 Temperature 97.5 F L Pulse Rate 56 L 51 L Respiratory 16 16 Rate Blood Pressure 137/58 133/73 O2 Sat by Pulse 98 95 Oximetry Medical Decision Making - Medical Decision Making This 72-year-old female presenting with close head injury. Well-appearing and reports minimal pain. She is on blood thinners. CT of the brain and C-spine was obtained which shows no acute intracranial abnormality and no acute fracture of the cervical spine. There is a layering right pleural effusion which was also evident on chest x-ray on December 07 of this year. Patient denies chest pain and shortness of breath. There is also another incidental finding which showed a 2.1 cm nodule of the left thyroid gland which warrants further thyroid ultrasound evaluation. Tylenol given. Results discussed with patient and her daughter. We also discussed incidental findings. Patient feels well and is stable for discharge. She is to follow-up with primary care regarding today's visit and incidental findings. Dr. James is my attending. Disposition Clinical Impression: Fall, Closed head injury, Headache, Thyroid nodule Disposition: HOME SELF-CARE Condition: Good Instructions (If sedation given, give patient instructions): Fall Prevention for Older Adults (ED), Thyroid Nodules (ED) Additional Instructions: Avoid anti-inflammatory use for the next 48 hours. Take Tylenol for any headache. Apply ice to swelling on back of head which will reduce swelling. Please follow-up with primary care provider in one to 2 days. Let them know that a 2.1 cm nodule was found on your left thyroid gland. Further imaging with ultrasound may be necessary. Return to the emergency department if you experience new, concerning, or worsening symptoms. Is patient prescribed a controlled substance at d/c from ED?: No Referrals: None,Stated [Primary Care Provider] - 1-2 days
[2022-02-01 12:27] VITALS: BP 133/73; PULSE 51
== END 2022-02-01 12:27 | disposition home or self-care (01) ==
LOC: EC 09:26
DX: S09.90XA Unspecified injury of head, initial encounter (principal); R51.9 Headache, unspecified; E04.1 Nontoxic single thyroid nodule; J45.909 Unspecified asthma, uncomplicated; I25.10 Atherosclerotic heart disease of native coronary artery without angina pectoris; J44.9 Chronic obstructive pulmonary disease, unspecified; E11.9 Type 2 diabetes mellitus without complications; E78.5 Hyperlipidemia, unspecified; I10 Essential (primary) hypertension; Z87.891 Personal history of nicotine dependence; Z79.899 Other long term (current) drug therapy; Z79.4 Long term (current) use of insulin; Z91.048 Other nonmedicinal substance allergy status; Z88.1 Allergy status to other antibiotic agents; W06.XXXA Fall from bed, initial encounter
CPT/HCPCS: 70450; 72125; 99284

== ENCOUNTER 2022-02-01 15:46 | Inpatient (IN) | payer MEDICARE, OTHER ==
[2022-02-01] MEDS ORDERED: SODIUM CHLORIDE 0.9% 500 ML 500 ML IV ONE (16:08)
--- NOTE | 2022-02-01 16:14 | ED ---
General Adult HPI - General Chief complaint: Syncope Stated complaint: AMS, revisit Time Seen by Provider: 02/01/22 15:51 Source: patient, RN notes reviewed, old records reviewed Mode of arrival: ambulatory Limitations: no limitations - History of Present Illness Initial comments: 72-year-old female presenting for evaluation. She had been seen by her home care nurse and was difficult to arouse. She was noted to be bradycardic at the time in the 40s. Patient is awake and alert at the time my evaluation. She is uncertain exactly why she is in the emergency department. She had told paramedics that if there was anything well with her heart that she did not want anything done. She denies vomiting or diarrhea. Denies fever. Denies chest pain. - Related Data Home Medications Medication Instructions Recorded Confirmed Montelukast Sodium [Singulair] 10 mg PO HS 07/15/20 02/01/22 DULoxetine HCL [Cymbalta] 60 mg PO DAILY 08/29/20 02/01/22 Insulin Glargine,Hum.rec.anlog 8 unit SQ DAILY 05/16/21 02/01/22 [Lantus Solostar Pen] Furosemide [Lasix] 20 mg PO Q48H 08/08/21 02/01/22 Apixaban [Eliquis] 2.5 mg PO BID 11/01/21 02/01/22 Lumateperone Tosylate [Caplyta] 42 mg PO DAILY 11/01/21 02/01/22 Metoprolol Tartrate [Lopressor] 25 mg PO HS 11/01/21 02/01/22 Ascorbic Acid [Vitamin C] 1,000 mg PO DAILY 02/01/22 02/01/22 Cholecalciferol [Vitamin D3 (25 25 mcg PO DAILY 02/01/22 02/01/22 Mcg = 1000 Iu)] Ferrous Sulfate [Feosol] 325 mg PO DAILY 02/01/22 02/01/22 Insulin Aspart [NovoLOG Flexpen] See Protocol SQ AC-TID 02/01/22 02/01/22 Sulfamethox-Tmp 800-160Mg [Bactrim 1 tab PO BID 02/01/22 02/01/22 DS 800-160 mg] Zinc Gluconate [Zinc] 50 mg PO DAILY 02/01/22 02/01/22 traMADol HCL 50 mg PO BID PRN 02/01/22 02/01/22 Allergies Allergy/AdvReac Type Severity Reaction Status Date / Time nickel Allergy Rash/Hives Verified 02/01/22 15:55 levofloxacin [From Levaquin] AdvReac Confusion Verified 02/01/22 15:55 Review of Systems ROS Statement: Those systems with pertinent positive or pertinent negative responses have been documented in the HPI. ROS Other: All systems not noted in ROS Statement are negative. Past Medical History Past Medical History: Asthma, Coronary Artery Disease (CAD), Heart Failure, COPD, CVA/TIA, Diabetes Mellitus, Hyperlipidemia, Hypertension, Pneumonia, Rheumatoid Arthritis (RA) Additional Past Medical History / Comment(s): left GREAT TOE WOUND, with current dressing, partial amputation on 06/28/20. going to hyperbaric chamber 5 days a week, PICC line right arm Last Myocardial Infarction Date:: 2014 History of Any Multi-Drug Resistant Organisms: None Reported Past Surgical History: Adenoidectomy, Appendectomy, Coronary Bypass/CABG, Heart Catheterization, Tonsillectomy, Tubal Ligation Additional Past Surgical History / Comment(s): Open heart on April 13 2015, cabg X4, bilateral carotid endarterectomies,. Right great toe amputation 2014. stent in right leg above knee, elke cataracts. left toe ambutation, 06/18/20 Past Anesthesia/Blood Transfusion Reactions: Previous Problems w/ Anesthesia Additional Past Anesthesia/Blood Transfusion Reaction / Comment(s): diff breathing afterwards Past Psychological History: No Psychological Hx Reported Smoking Status: Former smoker Past Alcohol Use History: None Reported Past Drug Use History: None Reported - Past Family History Father Family Medical History: Coronary Artery Disease (CAD), CVA/TIA, Diabetes M ellitus Mother Family Medical History: Myocardial Infarction ([place]) Additional Family Medical History / Comment(s): "spot on the lung" General Exam Limitations: no limitations General appearance: alert, in no apparent distress Head exam: Present: atraumatic, normocephalic Eye exam: Present: normal appearance, PERRL ENT exam: Present: mucous membranes dry Neck exam: Present: normal inspection. Absent: tenderness Respiratory exam: Present: decreased breath sounds. Absent: respiratory distress Cardiovascular Exam: Present: normal rhythm, bradycardia GI/Abdominal exam: Present: soft. Absent: distended, tenderness, guarding Extremities exam: Present: normal inspection, normal capillary refill. Absent: pedal edema Neurological exam: Present: alert, oriented X3, CN II-XII intact. Absent: motor sensory deficit Psychiatric exam: Present: normal affect, normal mood Skin exam: Present: warm, dry. Absent: cyanosis, diaphoretic Course Vital Signs 02/01/22 02/01/22 15:52 16:55 Pulse Rate 44 L 46 L Respiratory 18 18 Rate Blood Pressure 92/41 117/65 O2 Sat by Pulse 95 100 Oximetry EKG Findings - EKG Comments: EKG Findings:: EKG: Sinus bradycardia intraventricular conduction delay resulting in white and QRS, ventricular rate of 44, NE interval 154, castration 119, QTC [address] segment elevation. Medical Decision Making - Medical Decision Making 72-year-old female who had presented for altered mental status, possible syncope, bradycardia. She is on metoprolol but takes his medication at night. She has been told in the past that she may require pacemaker but has declined this procedure. The patient is alert at the time my evaluation. Initially bradycardic and hypotensive. Her blood pressure does respond to IV fluids. She remains in sinus bradycardia while in the emergency department. She is a DO NOT RESUSCITATE. Chest x-ray shows increased cardiomegaly compared to recent x-ray in November. Patient additionally has leukopenia, stable chronic kidney disease, normal electrolytes otherwise. We did discuss possibility of worsening cardiomyopathy versus the possibility of effusion and the patient' and family members would prefer to know if there was the possibility of intervention prior to making decisions. She does indicate that she would like to continue to be a DO NOT RESUSCITATE. She'll be admitted, echo has been ordered. She'll be monitored on telemetry. Case discussed with [facility] - Lab Data Result diagrams: 02/01/22 16:13 02/01/22 16:13 Lab Results 02/01/22 02/01/22 02/01/22 Range/Units 16:13 16:13 16:13 WBC 2.7 L (3.8-10.6) k/uL RBC 4.43 (3.80-5.40) m/uL Hgb 12.9 (11.4-16.0) gm/dL Hct 41.7 (34.0-46.0) % MCV 94.2 (80.0-100.0) fL MCH 29.3 (25.0-35.0) pg MCHC 31.0 (31.0-37.0) g/dL RDW 15.3 (11.5-15.5) % Plt Count 123 L (150-450) k/uL MPV 8.1 Neutrophils % 42 % Lymphocytes % 44 % Monocytes % 6 % Eosinophils % 5 % Basophils % 1 % Neutrophils # 1.2 L (1.3-7.7) k/uL Lymphocytes # 1.2 (1.0-4.8) k/uL Monocytes # 0.2 (0-1.0) k/uL Eosinophils # 0.2 (0-0.7) k/uL Basophils # 0.0 (0-0.2) k/uL Hypochromasia Marked PT 12.1 H (9.0-12.0) sec INR 1.1 (<1.2) APTT 27.7 (22.0-30.0) sec Sodium 136 L (137-145) mmol/L Potassium 4.5 (3.5-5.1) mmol/L Chloride 107 (98-107) mmol/L Carbon Dioxide 19 L (22-30) mmol/L Anion Gap 10 mmol/L BUN 52 H (7-17) mg/dL Creatinine 2.42 H (0.52-1.04) mg/dL Est GFR (CKD-EPI)AfAm 22 (>60 ml/min/1.73 sqM) Est GFR (CKD-EPI)NonAf 19 (>60 ml/min/1.73 sqM) Glucose 106 H (74-99) mg/dL Calcium 7.8 L (8.4-10.2) mg/dL Magnesium 2.0 (1.6-2.3) mg/dL Total Bilirubin 0.6 (0.2-1.3) mg/dL AST 16 (14-36) U/L ALT 8 (4-34) U/L Alkaline Phosphatase 139 H (38-126) U/L Total Protein 5.7 L (6.3-8.2) g/dL Albumin 3.0 L (3.5-5.0) g/dL Coronavirus (PCR) (Not Detectd) 02/01/22 Range/Units 17:58 WBC (3.8-10.6) k/uL RBC (3.80-5.40) m/uL Hgb (11.4-16.0) gm/dL Hct (34.0-46.0) % MCV (80.0-100.0) fL MCH (25.0-35.0) pg MCHC (31.0-37.0) g/dL RDW (11.5-15.5) % Plt Count (150-450) k/uL MPV Neutrophils % % Lymphocytes % % Monocytes % % Eosinophils % % Basophils % % Neutrophils # (1.3-7.7) k/uL Lymphocytes # (1.0-4.8) k/uL Monocytes # (0-1.0) k/uL Eosinophils # (0-0.7) k/uL Basophils # (0-0.2) k/uL Hypochromasia PT (9.0-12.0) sec INR (<1.2) APTT (22.0-30.0) sec Sodium (137-145) mmol/L Potassium (3.5-5.1) mmol/L Chloride (98-107) mmol/L Carbon Dioxide (22-30) mmol/L Anion Gap mmol/L BUN (7-17) mg/dL Creatinine (0.52-1.04) mg/dL Est GFR (CKD-EPI)AfAm (>60 ml/min/1.73 sqM) Est GFR (CKD-EPI)NonAf (>60 ml/min/1.73 sqM) Glucose (74-99) mg/dL Calcium (8.4-10.2) mg/dL Magnesium (1.6-2.3) mg/dL Total Bilirubin (0.2-1.3) mg/dL AST (14-36) U/L ALT (4-34) U/L Alkaline Phosphatase (38-126) U/L Total Protein (6.3-8.2) g/dL Albumin (3.5-5.0) g/dL Coronavirus (PCR) Not Detected (Not Detectd) Disposition Clinical Impression: CKD (chronic kidney disease), Bradycardia, Cardiomyopathy Disposition: ADMITTED IP TO THIS [facility] Condition: Stable Is patient prescribed a controlled substance at d/c from ED?: No Referrals: Jacob Sanderson DO [Primary Care Provider] - 1-2 days Time of Disposition: 19:30
[2022-02-01 16:28] LABS: Basophils % (A) 1 %; Eosinophils # (A) 0.2 k/uL (0-0.7); Eosinophils % (A) 5 %; HCT 41.7 % (34.0-46.0); HGB 12.9 gm/dL (11.4-16.0); Hypochromasia Marked; Lymphocytes # (A) 1.2 k/uL (1.0-4.8); Lymphocytes % (A) 44 %; MCH 29.3 pg (25.0-35.0); MCV 94.2 fL (80.0-100.0); Mean Platelet Volume 8.1; Monocytes # (A) 0.2 k/uL (0-1.0); Monocytes % (A) 6 %; Neutrophils # (A) 1.2 k/uL (1.3-7.7); Neutrophils % (A) 42 %; Platelet Count 123 k/uL (150-450); RBC 4.43 m/uL (3.80-5.40); RDW 15.3 % (11.5-15.5); WBC 2.7 k/uL (3.8-10.6)
[2022-02-01 16:35] LABS: Calcium 7.8 mg/dL (8.4-10.2); Potassium 4.5 mmol/L (3.5-5.1); Total Bilirubin 0.6 mg/dL (0.2-1.3); Total Protein 5.7 g/dL (6.3-8.2)
[2022-02-01 16:36] LABS: INR 1.1 (<1.2); Partial Thromboplastin Time 27.7 sec (22.0-30.0); Prothrombin Time 12.1 sec (9.0-12.0)
--- NOTE | 2022-02-01 17:12 | XR ---
EXAMINATION TYPE: XR chest 2V DATE OF EXAM: 02/01/2022 COMPARISON: 12/06/2021 HISTORY: Pneumonia TECHNIQUE: 2 views FINDINGS: Heart is enlarged. There are chest leads. There are sternal wires. Costophrenic angles are clear. The bony thorax is intact. No obvious heart failure. There is very slight blunting of the cost ophrenic angles. IMPRESSION: Cardiomegaly. Minimal pleural reaction at the lung bases similar to old exam.. Heart appe ars increased compared to old exam.
[2022-02-01] MEDS ORDERED: NALOXONE 0.4 MG/ML 1 ML VIAL IV PRN (19:24)
[2022-02-01] MEDS: SODIUM CHLORIDE 0.9% 1,000 ML IV SCH (22:23)
[2022-02-02] MEDS: APIXABAN 2.5 MG TABLET PO SCH ×3 (00:30→20:44)
[2022-02-02 01:44] LABS: Appearance,Urine Turbid (Clear); Bacteria,Urine Rare /hpf; Bilirubin,Urine Negative (Negative); Blood,Urine Negative (Negative); Color,Urine Yellow; Glucose,Urine (UA) Negative (Negative); Hyaline Casts,Urine 8 /lpf (0-2); Ketones,Urine Negative (Negative); Leukocyte Esterase,Urine Trace (Negative); Mucus,Urine Rare /hpf; Nitrite,Urine Negative (Negative); PH, Urine 5.5 (5.0-8.0); Protein,Urine Trace (Negative); RBC,Urine 2 /hpf (0-5); Specific Gravity,Urine 1.009 (1.001-1.035); Squamous Epithelial Cell,Urine 1 /hpf (0-4); Uric Acid Crystals,Urine Occasional /hpf; Urobilinogen,Urine <2.0 mg/dL (<2.0); WBC,Urine 2 /hpf (0-5)
[2022-02-02 06:11] LABS: Glucose,Whole Blood 89 mg/dL (70-110)
[2022-02-02] MEDS: FUROSEMIDE 20 MG TAB PO SCH (08:23)
[2022-02-02] MEDS ORDERED: traMADol 50 MG TAB PO PRN (08:28)
[2022-02-02] MEDS ORDERED: FAMOTIDINE 20 MG/2 ML VIAL IV SCH (09:00)
[2022-02-02] MEDS ORDERED: INSULIN DETEMIR (LEVEMIR) 100 UNIT/ML SYR SQ SCH (09:00)
[2022-02-02] MEDS ORDERED: IPRATROPIUM-ALBUTEROL 3 ML NEB INHALATION STA (11:25)
[2022-02-02] MEDS: SYMBICORT 160-4.5 MCG INHALER INHALATION SCH ×2 (11:30→20:33)
[2022-02-02] MEDS ORDERED: DEXTROSE 50% SYRINGE 50 ML IVP PRN ×2 (11:35)
--- NOTE | 2022-02-02 11:38 | P.HPIM ---
History of Present Illness This is a pleasant 72 years old female with multiple medical problems Patient presents because of syncope and in the emergency room heart rate was 44 and blood pressure 92/41 Patient says that she's been having UTI and that she's been taking Bactrim she thinks for about a week but she is not sure about time she had dysuria, she says she still has dysuria currently she was getting out of bed yesterday trying when she tripped and fell and hit the back of her head, but for the second time she was trying to get up she passed out, she wasn't sure how much she was on the floor. Daughter came and checked her heart rate was 42 and systolic blood pressure was 90s. Patient also has been complaining of from chest pain in the lower rib cage bilaterally. Patient describes the pain as mild and its get worse if she takes deep breath. She is on 2 L oxygen via nasal cannula for her COPD and her livestock nutritionist is Dr. Mcqueen She quit smoking many years ago. She denies alcohol or illicit drugs. Currently heart rate 67 and blood pressure 135/63. Patient is afebrile. Labs showing WBC of 2.7, platelet count 123 but hemoglobin normal. INR is normal. Creatinine is elevated to 1.4, baseline 1.5-1.9. Risks of BMP and liver enzymes are unremarkable. Urine analysis is not suspicious for infection. Covid virus not detected EKG showing sinus bradycardia at [address]-T changes Chest x-ray showing cardiomegaly with minimal pleural reaction Patient received normal saline in the emergency room Review of Systems Review of systems CONSTITUTIONAL: No fever, no malaise, HEENT: No recent visual problems or hearing problems. Denied any sore throat. CARDIOVASCULAR: No orthopnea, PND, no palpitations, no syncope. PULMONARY: No chest wall tenderness, no hemoptysis. GASTROINTESTINAL: No diarrhea, no nausea, no vomiting, no abdominal pain. Normoactive bowel sounds. NEUROLOGICAL: No headaches, no weakness, no numbness. HEMATOLOGICAL: Denies any bleeding or petechiae. GENITOURINARY: Denies any change in frequency, or urgency. MUSCULOSKELETAL/RHEUMATOLOGICAL: Denies any joint pain, swelling, or any muscle pain. ENDOCRINE: Denies any polyuria or polydipsia. Past Medical History Past Medical History: Asthma, Coronary Artery Disease (CAD), Heart Failure, COPD, CVA/TIA, Diabetes Mellitus, Hyperlipidemia, Hypertension, Pneumonia, Rheumatoid Arthritis (RA) Additional Past Medical History / Comment(s): left GREAT TOE WOUND, with current dressing, partial amputation on 06/28/20. going to hyperbaric chamber 5 days a week, PICC line right arm Last Myocardial Infarction Date:: 2014 History of Any Multi-Drug Resistant Organisms: None Reported Past Surgical History: Adenoidectomy, Appendectomy, Coronary Bypass/CABG, Heart Catheterization, Tonsillectomy, Tubal Ligation Additional Past Surgical History / Comment(s): Open heart on April 13 2015, cabg X4, bilateral carotid endarterectomies,. Right great toe amputation 2014. stent in right leg above knee, elke cataracts. left toe ambutation, 06/18/20 Past Anesthesia/Blood Transfusion Reactions: Previous Problems w/ Anesthesia Additional Past Anesthesia/Blood Transfusion Reaction / Comment(s): diff breathing afterwards Past Psychological History: No Psychological Hx Reported Additional Psychological History / Comment(s): current depression r/t passing away a week ago Smoking Status: Never smoker Past Alcohol Use History: None Reported Additional Past Alcohol Use History / Comment(s): STARTED SMOKING AT AGE 17, SMOKED 1 OR MORE PPD, QUIT 1982frompoor in Hospital in October 2013. 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 She is currently living at home with daughter and sister Past Drug Use History: None Reported - Past Family History Father Family Medical History: Coronary Artery Disease (CAD), CVA/TIA, Diabetes Mellitus Mother Family Medical History: Myocardial Infarction ([place]) Additional Family Medical History / Comment(s): "spot on the lung" Medications and Allergies Home Medications Medication Instructions Recorded Confirmed Type Montelukast Sodium [Singulair] 10 mg PO HS 07/15/20 02/01/22 History DULoxetine HCL [Cymbalta] 60 mg PO DAILY 08/29/20 02/01/22 History Insulin Glargine,Hum.rec.anlog 8 unit SQ DAILY 05/16/21 02/01/22 History [Lantus Solostar Pen] Furosemide [Lasix] 20 mg PO Q48H 08/08/21 02/01/22 History Apixaban [Eliquis] 2.5 mg PO BID 11/01/21 02/01/22 History Lumateperone Tosylate [Caplyta] 42 mg PO DAILY 11/01/21 02/01/22 History Metoprolol Tartrate [Lopressor] 25 mg PO HS 11/01/21 02/01/22 History Ascorbic Acid [Vitamin C] 1,000 mg PO DAILY 02/01/22 02/01/22 History Cholecalciferol [Vitamin D3 (25 25 mcg PO DAILY 02/01/22 02/01/22 History Mcg = 1000 Iu)] Ferrous Sulfate [Feosol] 325 mg PO DAILY 02/01/22 02/01/22 History Insulin Aspart [NovoLOG Flexpen] See Protocol SQ AC-TID 02/01/22 02/01/22 History Sulfamethox-Tmp 800-160Mg [Bactrim 1 tab PO BID 02/01/22 02/01/22 History DS 800-160 mg] Zinc Gluconate [Zinc] 50 mg PO DAILY 02/01/22 02/01/22 History traMADol HCL 50 mg PO BID PRN 02/01/22 02/01/22 History Allergies Allergy/AdvReac Type Severity Reaction Status Date / Time nickel Allergy Rash/Hives Verified 02/01/22 15:55 levofloxacin [From Levaquin] AdvReac Confusion Verified 02/01/22 15:55 Physical Exam Vitals: Vital Signs Temp Pulse Pulse Resp BP BP Pulse Ox 02/02/22 04:10 97.6 F 67 18 135/63 98 02/02/22 00:00 97.5 F L 50 L 17 121/65 98 02/01/22 22:25 97.6 F 49 L 18 128/66 99 02/01/22 21:45 97.7 F 46 L 12 126/59 98 02/01/22 19:45 97.6 F 47 L 18 117/65 95 02/01/22 16:55 46 L 18 117/65 100 02/01/22 15:52 44 L 18 92/41 95 Intake and Output 02/01/22 02/02/22 02/02/22 22:59 06:59 14:59 Other: # Voids 2 Weight 70.76 kg 73.9 kg GENERAL: The patient is alert and oriented x3, not in any acute distress. Well developed, well nourished. HEENT: Pupils are round and equally reacting to light. EOMI. No scleral icterus. No conjunctival pallor. Normocephalic, atraumatic. No pharyngeal erythema. No thyromegaly. CARDIOVASCULAR: S1 and S2 present. No murmurs, rubs, or gallops. -PULMONARY: Chest is clear to auscultation, no crackles. Expiratory wheezing and some difficulty talking ABDOMEN: Soft, nontender, nondistended, normoactive bowel sounds. No palpable organomegaly. MUSCULOSKELETAL: No joint swelling or deformity. EXTREMITIES: No cyanosis, clubbing, or pedal edema. NEUROLOGICAL: Gross neurological examination did not reveal any focal deficits. SKIN: No rashes. no petechiae. Results CBC & Chem 7: 02/01/22 16:13 02/01/22 16:13 Labs: Abnormal Lab Results - Last 24 Hours (Table) 02/01/22 02/01/22 02/01/22 Range/Units 16:13 16:13 16:13 WBC 2.7 L (3.8-10.6) k/uL Plt Count 123 L (150-450) k/uL Neutrophils # 1.2 L (1.3-7.7) k/uL PT 12.1 H (9.0-12.0) sec Sodium 136 L (137-145) mmol/L Carbon Dioxide 19 L (22-30) mmol/L BUN 52 H (7-17) mg/dL Creatinine 2.42 H (0.52-1.04) mg/dL Glucose 106 H (74-99) mg/dL Calcium 7.8 L (8.4-10.2) mg/dL Alkaline Phosphatase 139 H (38-126) U/L Total Protein 5.7 L (6.3-8.2) g/dL Albumin 3.0 L (3.5-5.0) g/dL Urine Appearance (Clear) Urine Protein (Negative) Ur Leukocyte Esterase (Negative) Uric Acid Crystals (None) /hpf Urine Bacteria (None) /hpf Hyaline Casts (0-2) /lpf Urine Mucus (None) /hpf 02/02/22 Range/Units 00:40 WBC (3.8-10.6) k/uL Plt Count (150-450) k/uL Neutrophils # (1.3-7.7) k/uL PT (9.0-12.0) sec Sodium (137-145) mmol/L Carbon Dioxide (22-30) mmol/L BUN (7-17) mg/dL Creatinine (0.52-1.04) mg/dL Glucose (74-99) mg/dL Calcium (8.4-10.2) mg/dL Alkaline Phosphatase (38-126) U/L Total Protein (6.3-8.2) g/dL Albumin (3.5-5.0) g/dL Urine Appearance Turbid H (Clear) Urine Protein Trace H (Negative) Ur Leukocyte Esterase Trace H (Negative) Uric Acid Crystals Occasional H (None) /hpf Urine Bacteria Rare H (None) /hpf Hyaline Casts 8 H (0-2) /lpf Urine Mucus Rare H (None) /hpf Thrombosis Risk Factor Assmnt - Choose All That Apply Any of the Below Risk Factors Present?: Yes Each Factor Represents 1 point: Abnormal pulmonary function (COPD), Acute MA, Heart failure (<1month), Obesity (BMI >25), Swollen legs (current), Varicose veins Each Risk Factor Represents 2 Points: Age 61-74 years Other congenital or acquired thrombophilia - If yes, enter type in comment: No Thrombosis Risk Factor Assessment Total Risk Factor Score: 8 Thrombosis Risk Factor Assessment Level: High Risk Assessment and Plan Assessment: Syncope suspected secondary to bradycardia and hypotension Acute on chronic heart failure mild acute COPD exacerbation Chest pain most likely related to her COPD exacerbation acute UTI partially treated, failed outpatient treatment hypertension Insulin-dependent diabetes mellitus History of depression, not an active issue Chronic atrial fibrillation on Eliquis History of coronary artery disease, status post bypass surgery COPD, no acute exacerbation History of CVA/TIA History of rheumatoid arthritis History of peripheral vascular disease status post stent in the right leg Chronic kidney disease stage III Plan: This is a pleasant 69 years old female who presents with syncope and bradycardia Continue close monitoring select units Continue gentle hydration . Hold beta sonya for now cardiology consultCheck orthostatic vitals and TSH Check echocardiogramStart start ceftriaxone, check a bladder scan. Send urinalysis and urine culture and consult ID team Start inhaled steroids and bronchodilator therapy neuro check Labs and medication were reviewed.. Continue same treatment. Continue with symptomatic treatment. Resume home medication. Monitor lytes and vitals. DVT and GI prophylaxis. Further recommendations as per clinical course of the patient DVT prophylaxis: Eliquis GI Prophylaxis: Pepcid PT/OT: Pending Prognosis is guarded
[2022-02-02 12:05] LABS: Glucose,Whole Blood 162 mg/dL (70-110)
--- NOTE | 2022-02-02 12:31 | P.CRDCN ---
History of Present Illness Consult date: 02/02/22 History of present illness: Patient is a pleasant 72-year-old female who [facility] and has a known history of coronary artery disease status post CABG, ischemic cardiomyopathy, proximal atrial fibrillation, hypertension, hyperlipidemia, and CVA. Patient follows with Dr. Soto in the office. We have been consulted to see the patient for bradycardia. Patient was found to be bradycardic with a heart rate in the 40s. Her EKG showed her to be sinus bradycardia with moderate interventricular conduction delay and nonspecific T-wave abnormalities. Her chest x-ray showed cardiomegaly. Patient had an echocardiogram in October 2021 which showed moderate to severe LV dysfunction with an ejection fraction of 35% and [id number] mitral regurgitation. She was on Lopressor 25 mg daily at home. This has been discontinued. Patient remains in sinus rhythm on the monitor heart rate has improved and is 59 bpm. She is on Eliquis for anticoagulation Review of Systems REVIEW OF SYSTEMS At the time of my exam: CONSTITUTIONAL: Denies fever or chills. EYES: Negative for vision changes ENT: Negative for hearing loss CARDIOVASCULAR: Denies chest pain, shortness of breath, diaphoresis, orthopnea, PND or palpitations. VASCULAR: Denies edema RESPIRATORY: Denies cough. GASTROINTESTINAL: Denies abdominal pain, diarrhea, constipation, nausea or vomiting. MUSCULOSKELETAL: Denies myalgias. NEUROLOGIC: Denies numbness, tingling, headache or weakness. ENDOCRINE: Denies fatigue, weight change, polydipsia or polyurina. GENITOURINARY: Denies burning, hematuria or urgency with micturation. HEMATOLOGIC: Denies history of anemia or bleeding. DERMATOLOGY: Denies rash or skin sores PSYCH: Negative for depression or hallucinations. Past Medical History Past Medical History: Asthma, Coronary Artery Disease (CAD), Heart Failure, COPD, CVA/TIA, Diabetes Mellitus, Hyperlipidemia, Hypertension, Pneumonia, Rheumatoid Arthritis (RA) Additional Past Medical History / Comment(s): left GREAT TOE WOUND, with current dressing, partial amputation on 06/28/20. going to hyperbaric chamber 5 days a week, PICC line right arm Last Myocardial Infarction Date:: 2014 History of Any Multi-Drug Resistant Organisms: None Reported Past Surgical History: Adenoidectomy, Appendectomy, Coronary Bypass/CABG, Heart Catheterization, Tonsillectomy, Tubal Ligation Additional Past Surgical History / Comment(s): Open heart on April 13 2015, cabg X4, bilateral carotid endarterectomies,. Right great toe amputation 2015. stent in right leg above knee, elke cataracts. left toe ambutation, 06/18/20 Past Anesthesia/Blood Transfusion Reactions: Previous Problems w/ Anesthesia Additional Past Anesthesia/Blood Transfusion Reaction / Comment(s): diff breathing afterwards Past Psychological History: No Psychological Hx Reported Additional Psychological History / Comment(s): current depression r/t passing away a week ago Smoking Status: Never smoker Past Alcohol Use History: None Reported Additional Past Alcohol Use History / Comment(s): STARTED SMOKING AT AGE 17, SMOKED 1 OR MORE PPD, QUIT 1982frompoor in Hospital in October 2013. 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 She is currently living at home with daughter and sister Past Drug Use History: None Reported - Past Family History Father Family Medical History: Coronary Artery Disease (CAD), CVA/TIA, Diabetes Mellitus Mother Family Medical History: Myocardial Infarction ([place]) Additional Family Medical History / Comment(s): "spot on the lung" Medications and Allergies Home Medications Medication Instructions Recorded Confirmed Type Montelukast Sodium [Singulair] 10 mg PO HS 07/15/20 02/01/22 History DULoxetine HCL [Cymbalta] 60 mg PO DAILY 08/29/20 02/01/22 History Insulin Glargine,Hum.rec.anlog 8 unit SQ DAILY 05/16/21 02/01/22 History [Lantus Solostar Pen] Furosemide [Lasix] 20 mg PO Q48H 08/08/21 02/01/22 History Apixaban [Eliquis] 2.5 mg PO BID 11/01/21 02/01/22 History Lumateperone Tosylate [Caplyta] 42 mg PO DAILY 11/01/21 02/01/22 History Metoprolol Tartrate [Lopressor] 25 mg PO HS 11/01/21 02/01/22 History Ascorbic Acid [Vitamin C] 1,000 mg PO DAILY 02/01/22 02/01/22 History Cholecalciferol [Vitamin D3 (25 25 mcg PO DAILY 02/01/22 02/01/22 History Mcg = 1000 Iu)] Ferrous Sulfate [Feosol] 325 mg PO DAILY 02/01/22 02/01/22 History Insulin Aspart [NovoLOG Flexpen] See Protocol SQ AC-TID 02/01/22 02/01/22 History Sulfamethox-Tmp 800-160Mg [Bactrim 1 tab PO BID 02/01/22 02/01/22 History DS 800-160 mg] Zinc Gluconate [Zinc] 50 mg PO DAILY 02/01/22 02/01/22 History traMADol HCL 50 mg PO BID PRN 02/01/22 02/01/22 History Allergies Allergy/AdvReac Type Severity Reaction Status Date / Time nickel Allergy Rash/Hives Verified 02/01/22 15:55 levofloxacin [From Levaquin] AdvReac Confusion Verified 02/01/22 15:55 Physical Exam Vitals: Vital Signs Temp Pulse Pulse Resp BP BP Pulse Ox 02/02/22 11:54 74 02/02/22 11:44 70 02/02/22 08:00 97.8 F 59 L 16 136/63 96 02/02/22 04:10 97.6 F 67 18 135/63 98 02/02/22 00:00 97.5 F L 50 L 17 121/65 98 02/01/22 22:25 97.6 F 49 L 18 128/66 99 02/01/22 21:45 97.7 F 46 L 12 126/59 98 02/01/22 19:45 97.6 F 47 L 18 117/65 95 02/01/22 16:55 46 L 18 117/65 100 02/01/22 15:52 44 L 18 92/41 95 Intake and Output 02/01/22 02/02/22 02/02/22 22:59 06:59 14:59 Intake Total 118 Output Total 625 Balance -507 Intake: Oral 118 Output: Urine 625 Other: # Voids 2 Weight 70.76 kg 73.9 kg PHYSICAL EXAMINATION VITAL SIGNS: Reviewed General: The patient is awake and alert, in no distress, and does not appear acutely ill. Skin: Skin is warm and dry and no rashes or lesions are noted. Eye: Pupils are equal, round and reactive to light, extra-ocular movements are intact; there is normal conjunctiva bilaterally. Ears, nose, mouth and throat: There are moist mucous membranes and no oral lesions. Neck: The neck is supple, there is no tenderness or JVD. Cardiovascular: There is regular rate and rhythm. No murmur, rub or gallop is appreciated. Respiratory: Lungs are clear to auscultation, respirations are non-labored, breath sounds are equal. Gastrointestinal: Soft, non-distended, non-tender abdomen without masses or organomegaly noted. There is no rebound or guarding present. Bowel sounds are unremarkable. Back: There is no tenderness to palpation in the midline. There is no obvious deformity. Musculoskeletal: Normal ROM, no tenderness, There is no pedal edema. There is no calf tenderness or swelling. Extremities: Mild bilateral pitting edema Vascular: Femoral pulse is normal. Posterior tibial pulses are normal .Dorsalis pedis is palpable. Neurological: CN II-XII intact. There are no obvious motor or sensory deficits. Speech is normal. Psychiatric: Cooperative, appropriate mood & affect, normal judgment Results 02/01/22 16:13 02/01/22 16:13 Cardiac Enzymes 02/01/22 Range/Units 16:13 AST 16 (14-36) U/L Coagulation 02/01/22 Range/Units 16:13 PT 12.1 H (9.0-12.0) sec APTT 27.7 (22.0-30.0) sec CBC 02/01/22 Range/Units 16:13 WBC 2.7 L (3.8-10.6) k/uL RBC 4.43 (3.80-5.40) m/uL Hgb 12.9 (11.4-16.0) gm/dL Hct 41.7 (34.0-46.0) % Plt Count 123 L (150-450) k/uL Comprehensive Metabolic Panel 02/01/22 Range/Units 16:13 Sodium 136 L (137-145) mmol/L Potassium 4.5 (3.5-5.1) mmol/L Chloride 107 (98-107) mmol/L Carbon Dioxide 19 L (22-30) mmol/L BUN 52 H (7-17) mg/dL Creatinine 2.42 H (0.52-1.04) mg/dL Glucose 106 H (74-99) mg/dL Calcium 7.8 L (8.4-10.2) mg/dL AST 16 (14-36) U/L ALT 8 (4-34) U/L Alkaline Phosphatase 139 H (38-126) U/L Total Protein 5.7 L (6.3-8.2) g/dL Albumin 3.0 L (3.5-5.0) g/dL Current Medications Generic Name Dose Route Start Last Admin Trade Name Freq PRN Reason Stop Dose Admin Acetaminophen 650 mg 02/01/22 19:24 Acetaminophen Tab 325 Mg Tab PO Q6HR PRN Mild Pain or Fever > 100.5 Albuterol/Ipratropium 3 ml 02/02/22 11:25 Ipratropium-Albuterol 3 Ml Neb INHALATION RT-QID PRN Shortness Of Breath Or Wheezing Apixaban 2.5 mg 02/01/22 21:00 02/02/22 08:23 Apixaban 2.5 Mg Tablet PO 2.5 mg BID JAY Administration Protocol Budesonide/Formoterol Fumarate 2 puff 02/02/22 11:23 02/02/22 11:30 Symbicort 160-4.5 Mcg Inhaler INHALATION Not Given RT-BID JAY Dextrose/Water 25 ml 02/02/22 11:35 Dextrose 50% Syringe 50 Ml IVP PER PROTOCOL PRN Hypoglycemia Protocol Dextrose/Water 50 ml 02/02/22 11:35 Dextrose 50% Syringe 50 Ml IVP PER PROTOCOL PRN Hypoglycemia Protocol Duloxetine HCl 60 mg 02/02/22 09:00 Duloxetine Hcl 60 Mg Capsule.Dr PO DAILY [facility], 1928–1983 Famotidine 20 mg 02/02/22 10:00 Famotidine 20 Mg/2 Ml Vial IV DAILY [facility] 1928–1983 Ferrous Sulfate 325 mg 02/02/22 09:00 Ferrous Sulfate 325 Mg Tab PO DAILY [facility]1983 Furosemide 20 mg 02/02/22 09:00 02/02/22 08:23 Furosemide 20 Mg Tab PO 20 mg Q48H JAY Administration Sodium Chloride 1,000 mls @ 50 mls/hr 02/01/22 19:30 02/01/22 22:23 Saline 0.9% IV 50 mls/hr .Q20H JAY Administration Ceftriaxone Sodium 1 gm/ 50 mls @ 100 mls/hr 02/02/22 11:30 Sodium Chloride IVPB Q24HR [facility]–1983 Protocol Insulin Aspart 0 unit 02/02/22 12:30 Insulin Aspart (Novolog) 100 Unit/Ml Vial SQ ACHS [facility]1983 Protocol Insulin Detemir 8 unit 02/02/22 09:00 Insulin Detemir (Levemir) 100 Unit/Ml Syr SQ DAILY@0700 [facility]1983 Montelukast Sodium 10 mg 02/02/22 21:00 Montelukast 10 Mg Tab PO HS [facility]1983 Naloxone HCl 0.2 mg 02/01/22 19:24 Naloxone 0.4 Mg/Ml 1 Ml Vial IV Q2M PRN Opioid Reversal Non-Formulary Medication 42 mg 02/02/22 09:00 Lumateperone Tosylate [Caplyta] PO DAILY [facility]1983 Tramadol HCl 50 mg 02/02/22 08:28 Tramadol 50 Mg Tab PO BID PRN Pain Intake and Output 02/01/22 02/02/22 02/02/22 22:59 06:59 14:59 Intake Total 118 Output Total 625 Balance -507 Intake: Oral 118 Output: Urine 625 Other: # Voids 2 Weight 70.76 kg 73.9 kg 02/01/22 16:13 02/01/22 16:13 Assessment and Plan Assessment: Bradycardia Proximal atrial fibrillation History of ischemic cardiomyopathy Plan: Continue to hold beta blockers due to bradycardia Continue with Eliquis for anticoagulation Echocardiogram reviewed Continue telemetry monitoring Further recommendations based on clinical course The above impression and plan of care have been discussed and directed by the signing physician. Myah Kellogg, nurse practitioner, acting as scribe for signing physician.
[2022-02-02] MEDS: INSULIN DETEMIR (LEVEMIR) 100 UNIT/ML SYR SQ SCH (12:32)
[2022-02-02] MEDS: INSULIN ASPART (NovoLOG) 100 UNIT/ML VIAL SQ SCH ×3 (12:34→20:43)
[2022-02-02] MEDS: FAMOTIDINE 20 MG/2 ML VIAL IV SCH (12:42)
[2022-02-02] MEDS: DULoxetine HCL 60 MG CAPSULE.DR PO SCH (12:43)
[2022-02-02] MEDS: FERROUS SULFATE 325 MG TAB PO SCH (12:43)
[2022-02-02] MEDS: NON FORMULARY DRUG (Lumateperone Tosylate [Caplyta] 42 MG Capsule) PO SCH (13:00)
[2022-02-02 17:31] LABS: Glucose,Whole Blood 107 mg/dL (70-110)
[2022-02-02] MEDS: SODIUM CHLORIDE 0.9% 1,000 ML IV SCH ×2 (19:35→20:45)
[2022-02-02] MEDS: IPRATROPIUM-ALBUTEROL 3 ML NEB INHALATION PRN (20:33)
[2022-02-02 20:41] LABS: Glucose,Whole Blood 114 mg/dL (70-110)
[2022-02-02] MEDS: MONTELUKAST 10 MG TAB PO SCH (20:44)
[2022-02-03 06:55] LABS: Glucose,Whole Blood 94 mg/dL (70-110)
[2022-02-03] MEDS: INSULIN ASPART (NovoLOG) 100 UNIT/ML VIAL SQ SCH ×4 (06:55→19:59)
[2022-02-03] MEDS: INSULIN DETEMIR (LEVEMIR) 100 UNIT/ML SYR SQ SCH ×2 (06:55→08:19)
[2022-02-03] MEDS: SYMBICORT 160-4.5 MCG INHALER INHALATION SCH ×2 (08:10→20:51)
[2022-02-03] MEDS: ACETAMINOPHEN TAB 325 MG TAB PO PRN ×2 (08:17→20:20)
[2022-02-03] MEDS: FAMOTIDINE 20 MG/2 ML VIAL IV SCH (08:18)
[2022-02-03] MEDS: FERROUS SULFATE 325 MG TAB PO SCH (08:19)
[2022-02-03] MEDS: APIXABAN 2.5 MG TABLET PO SCH ×2 (08:19→20:21)
[2022-02-03] MEDS: DULoxetine HCL 60 MG CAPSULE.DR PO SCH (08:19)
[2022-02-03] MEDS: NON FORMULARY DRUG (Lumateperone Tosylate [Caplyta] 42 MG Capsule) PO SCH (08:26)
[2022-02-03 09:51] LABS: Basophils % (A) 1 %; Eosinophils # (A) 0.3 k/uL (0-0.7); Eosinophils % (A) 6 %; HCT 30.3 % (34.0-46.0); Hypochromasia Marked; Lymphocytes # (A) 1.5 k/uL (1.0-4.8); Lymphocytes % (A) 34 %; MCH 29.1 pg (25.0-35.0); MCHC 30.8 g/dL (31.0-37.0); MCV 94.6 fL (80.0-100.0); Mean Platelet Volume 8.2; Monocytes # (A) 0.3 k/uL (0-1.0); Monocytes % (A) 6 %; Neutrophils # (A) 2.2 k/uL (1.3-7.7); Neutrophils % (A) 52 %; Platelet Count 224 k/uL (150-450); RDW 15.8 % (11.5-15.5); WBC 4.3 k/uL (3.8-10.6)
[2022-02-03 09:53] LABS: Potassium 4.7 mmol/L (3.5-5.1)
[2022-02-03 09:54] LABS: HGB 9.3 gm/dL (11.4-16.0)
--- NOTE | 2022-02-03 10:29 | P.CONS ---
History of Present Illness - Reason for Consult Consult date: 02/02/22 - History of Present Illness Patient is a 72-year-old female with a past medical history significant for recurrent urinary tract infection patient presenting to the ER last evening the patient was noticed by the home care nurse to be difficult to arouse patient was bradycardic with a heart rate in the 40s and the patient was subsequent advised to go to the ER predominantly for mental status changes patient not sure exactly what happened patient denies having any high-grade fever or any chills patient denies having any chest pain or shortness of breath or cough no abdominal pain no diarrhea he did have some difficulty urination and some burning and apparently was recently diagnosed with a UTI and has been treated with the Bactrim DS patient also have a fall yesterday but denies having any loss of consciousness with the symptom the patient has been evaluated on arrival to the ER the patient was afebrile and no fever has been recorded subsequently patient did have a mild leukopenia with a left shift BUN and creatinine has been elevated potassium was 4.5 urine was significantly positive patient was started on Rocephin with concern for a UTI failing outpatient oral Bactrim infectious disease was consulted for further management of antibiotic therapy patient did have a chest x-ray with cardiomegaly minimal fluid reaction lung bases Past Medical History Past Medical History: Asthma, Coronary Artery Disease (CAD), Heart Failure, COPD, CVA/TIA, Diabetes Mellitus, Hyperlipidemia, Hypertension, Pneumonia, Rheumatoid Arthritis (RA) Additional Past Medical History / Comment(s): left GREAT TOE WOUND, with current dressing, partial amputation on 06/28/20. going to hyperbaric chamber 5 days a week, PICC line right arm Last Myocardial Infarction Date:: 2014 History of Any Multi-Drug Resistant Organisms: None Reported Past Surgical History: Adenoidectomy, Appendectomy, Coronary Bypass/CABG, Heart Catheterization, Tonsillectomy, Tubal Ligation Additional Past Surgical History / Comment(s): Open heart on April 13 2015, cabg X4, bilateral carotid endarterectomies,. Right great toe amputation 2014. stent in right leg above knee, elke cataracts. left toe ambutation, 06/18/20 Past Anesthesia/Blood Transfusion Reactions: Previous Problems w/ Anesthesia Additional Past Anesthesia/Blood Transfusion Reaction / Comm: diff breathing afterwards Past Psychological History: No Psychological Hx Reported Additional Psychological History / Comment(s): current depression r/t passing away a week ago Smoking Status: Never smoker Past Alcohol Use History: None Reported Additional Past Alcohol Use History / Comment(s): STARTED SMOKING AT AGE 17, SMOKED 1 OR MORE PPD, QUIT 1982[facility] in [facility] in October 2013. 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 She is currently living at home with daughter and sister Past Drug Use History: None Reported - Past Family History Father Family Medical History: Coronary Artery Disease (CAD), CVA/TIA, Diabetes Mellitus Mother Family Medical History: Myocardial Infarction ([place]) Additional Family Medical History / Comment(s): "spot on the lung" Medications and Allergies Home Medications Medication Instructions Recorded Confirmed Type Montelukast Sodium [Singulair] 10 mg PO HS 07/15/20 02/01/22 History DULoxetine HCL [Cymbalta] 60 mg PO DAILY 08/29/20 02/01/22 History Insulin Glargine,Hum.rec.anlog 8 unit SQ DAILY 05/16/21 02/01/22 History [Lantus Solostar Pen] Furosemide [Lasix] 20 mg PO Q48H 08/08/21 02/01/22 History Apixaban [Eliquis] 2.5 mg PO BID 11/01/21 02/01/22 History Lumateperone Tosylate [Caplyta] 42 mg PO DAILY 11/01/21 02/01/22 History Metoprolol Tartrate [Lopressor] 25 mg PO HS 11/01/21 02/01/22 History Ascorbic Acid [Vitamin C] 1,000 mg PO DAILY 02/01/22 02/01/22 History Cholecalciferol [Vitamin D3 (25 25 mcg PO DAILY 02/01/22 02/01/22 History Mcg = 1000 Iu)] Ferrous Sulfate [Feosol] 325 mg PO DAILY 02/01/22 02/01/22 History Insulin Aspart [NovoLOG Flexpen] See Protocol SQ AC-TID 02/01/22 02/01/22 History Sulfamethox-Tmp 800-160Mg [Bactrim 1 tab PO BID 02/01/22 02/01/22 History DS 800-160 mg] Zinc Gluconate [Zinc] 50 mg PO DAILY 02/01/22 02/01/22 History traMADol HCL 50 mg PO BID PRN 02/01/22 02/01/22 History Allergies Allergy/AdvReac Type Severity Reaction Status Date / Time nickel Allergy Rash/Hives Verified 02/01/22 15:55 levofloxacin [From Levaquin] AdvReac Confusion Verified 02/01/22 15:55 Physical Exam Vitals: Vital Signs Temp Pulse Pulse Resp BP BP Pulse Ox 02/02/22 11:54 74 02/02/22 11:44 70 02/02/22 08:00 97.8 F 59 L 16 136/63 96 02/02/22 04:10 97.6 F 67 18 135/63 98 02/02/22 00:00 97.5 F L 50 L 17 121/65 98 02/01/22 22:25 97.6 F 49 L 18 128/66 99 02/01/22 21:45 97.7 F 46 L 12 126/59 98 02/01/22 19:45 97.6 F 47 L 18 117/65 95 02/01/22 16:55 46 L 18 117/65 100 02/01/22 15:52 44 L 18 92/41 95 Intake and Output 02/01/22 02/02/22 02/02/22 22:59 06:59 14:59 Intake Total 118 Output Total 625 Balance -507 Intake: Oral 118 Output: Urine 625 Other: # Voids 2 Weight 70.76 kg 73.9 kg Results CBC & Chem 7: 02/03/22 08:40 02/03/22 08:40 Labs: Abnormal Lab Results - Last 24 Hours (Table) 02/01/22 02/01/22 02/01/22 Range/Units 16:13 16:13 16:13 WBC 2.7 L (3.8-10.6) k/uL Plt Count 123 L (150-450) k/uL Neutrophils # 1.2 L (1.3-7.7) k/uL PT 12.1 H (9.0-12.0) sec Sodium 136 L (137-145) mmol/L Carbon Dioxide 19 L (22-30) mmol/L BUN 52 H (7-17) mg/dL Creatinine 2.42 H (0.52-1.04) mg/dL Glucose 106 H (74-99) mg/dL POC Glucose (mg/dL) (70-110) mg/dL Calcium 7.8 L (8.4-10.2) mg/dL Alkaline Phosphatase 139 H (38-126) U/L Total Protein 5.7 L (6.3-8.2) g/dL Albumin 3.0 L (3.5-5.0) g/dL Urine Appearance (Clear) Urine Protein (Negative) Ur Leukocyte Esterase (Negative) Uric Acid Crystals (None) /hpf Urine Bacteria (None) /hpf Hyaline Casts (0-2) /lpf Urine Mucus (None) /hpf 02/02/22 02/02/22 Range/Units 00:40 12:03 WBC (3.8-10.6) k/uL Plt Count (150-450) k/uL Neutrophils # (1.3-7.7) k/uL PT (9.0-12.0) sec Sodium (137-145) mmol/L Carbon Dioxide (22-30) mmol/L BUN (7-17) mg/dL Creatinine (0.52-1.04) mg/dL Glucose (74-99) mg/dL POC Glucose (mg/dL) 162 H (70-110) mg/dL Calcium (8.4-10.2) mg/dL Alkaline Phosphatase (38-126) U/L Total Protein (6.3-8.2) g/dL Albumin (3.5-5.0) g/dL Urine Appearance Turbid H (Clear) Urine Protein Trace H (Negative) Ur Leukocyte Esterase Trace H (Negative) Uric Acid Crystals Occasional H (None) /hpf Urine Bacteria Rare H (None) /hpf Hyaline Casts 8 H (0-2) /lpf Urine Mucus Rare H (None) /hpf Assessment and Plan Plan: 1patient with a admission to the hospital mental status changes this patient did have slightly dysuria recently has been on Bactrim DS with a urine pain in the hospital not significantly positive could be because of the antibiotic exposure because of the persistent symptoms possible component of cystitis not behaving as deep infection. 2patient to continue with Rocephin 1 g daily and will see clinical response. 3repeat a UA and urine culture. We will follow on clinical condition and cultures to further adjust medication if needed Thank you for this consultation will follow this patient along with you Time with Patient: Greater than 30
[2022-02-03 12:03] LABS: Glucose,Whole Blood 134 mg/dL (70-110)
--- NOTE | 2022-02-03 13:59 | P.PN ---
Subjective Progress Note Date: 02/03/22 Patient is a pleasant 72-year-old female who resides at a longterm and has a known history of coronary artery disease status post CABG, ischemic cardiomyopathy, proximal atrial fibrillation, hypertension, hyperlipidemia, and CVA. Patient follows with Dr. Soto in the office. We have been consulted to see the patient for bradycardia. Patient was found to be bradycardic with a heart rate in the 40s. Her EKG showed her to be sinus bradycardia with moderate interventricular conduction delay and nonspecific T-wave abnormalities. Patient had an echocardiogram in October 2021 which showed moderate to severe LV dysfunction with an ejection fraction of 35% and [id number] mitral regurgitation. She was on Lopressor 25 mg daily at home. This has been discontinued. She is on Eliquis for anticoagulation Patient seen doing well today resting comfortably on the side of the bed talking on the phone in no signs of acute distress. She remains sinus rhythm with a controlled heart rate in the 70s to 80s will continue to hold beta blockers and continue with oral anticoagulation. Objective - Vital Signs Vital signs: Vital Signs Temp 98.3 F 02/03/22 04:00 Pulse 78 02/03/22 12:00 Resp 16 02/03/22 12:00 BP 176/75 02/03/22 12:00 Pulse Ox 94 L 02/03/22 12:00 FiO2 Intake & Output 02/02/22 02/03/22 02/03/22 18:59 06:59 18:59 Intake Total 118 420 Output Total 625 300 Balance -507 -300 420 Intake: Intake, IV Titration 300 Amount Sodium Chloride 0.9% 1, 200 000 ml @ 50 mls/hr IV . Q20H [facility] Rx#:[id number] cefTRIAXone 1 gm In 100 Sodium Chloride 0.9% 50 ml @ 100 mls/hr IVPB Q24HR [facility] Rx#:[id number] Oral 118 120 Output: Urine 625 300 Other: # Voids 1 - Exam PHYSICAL EXAM: VITAL SIGNS: Reviewed. GENERAL: Well-developed in no acute distress. HEENT: Head is normocephalic. Pupils are equal, round. Sclerae anicteric. Mucous membranes of the mouth are moist. NECK: Supple. No JVD or thyromegaly RESPIRATORY: Respirations even and unlabored. Lungs diminished to auscultation bilaterally. CARDIO: Regular rate and rhythm. S1 and S2 heard. No murmur or gallops. EXTREMITIES: Normal range of motion. No clubbing or cyanosis. Peripheral pulses intact. Negative for bilateral lower extremity edema NEURO: Orientated to person, time, mood is appropriate - Labs CBC & Chem 7: 02/03/22 08:40 02/03/22 08:40 Labs: Abnormal Lab Results - Last 24 Hours (Table) 02/01/22 02/02/22 02/02/22 Range/Units 16:13 11:55 20:39 RBC (3.80-5.40) m/uL Hgb (11.4-16.0) gm/dL Hct (34.0-46.0) % MCHC (31.0-37.0) g/dL RDW (11.5-15.5) % Chloride (98-107) mmol/L Carbon Dioxide (22-30) mmol/L BUN (7-17) mg/dL Creatinine (0.52-1.04) mg/dL Glucose (74-99) mg/dL POC Glucose (mg/dL) 114 H (70-110) mg/dL Hemoglobin A1c 7.8 H (0.0-6.0) % Calcium (8.4-10.2) mg/dL Procalcitonin 0.17 H (0.02-0.09) ng/mL 02/03/22 02/03/22 02/03/22 Range/Units 08:40 08:40 12:01 RBC 3.20 L (3.80-5.40) m/uL Hgb 9.3 L D (11.4-16.0) gm/dL Hct 30.3 L (34.0-46.0) % MCHC 30.8 L (31.0-37.0) g/dL RDW 15.8 H (11.5-15.5) % Chloride 108 H (98-107) mmol/L Carbon Dioxide 18 L (22-30) mmol/L BUN 34 H (7-17) mg/dL Creatinine 1.92 H (0.52-1.04) mg/dL Glucose 160 H (74-99) mg/dL POC Glucose (mg/dL) 134 H (70-110) mg/dL Hemoglobin A1c (0.0-6.0) % Calcium 8.0 L (8.4-10.2) mg/dL Procalcitonin (0.02-0.09) ng/mL Microbiology - Last 24 Hours (Table) 02/02/22 00:40 Urine Culture - Preliminary Urine,Clean Catch Assessment and Plan Assessment: Bradycardia Proximal atrial fibrillation History of ischemic cardiomyopathy Plan: Continue to hold beta blockers due to bradycardia Continue with Eliquis for anticoagulation Continue telemetry monitoring Further recommendations based on clinical course The above impression and plan of care have been discussed and directed by the signing physician. Myah Kellogg, nurse practitioner, acting as scribe for signing physician.
[2022-02-03] MEDS: ALPRAZolam 0.25 MG TAB PO PRN ×2 (14:31→20:21)
[2022-02-03 16:58] LABS: Glucose,Whole Blood 123 mg/dL (70-110)
--- NOTE | 2022-02-03 16:59 | P.PN ---
Subjective This is a pleasant 72 years old female with multiple medical problems Patient presents because of syncope and in the emergency room heart rate was 44 and blood pressure 92/41 Patient says that she's been having UTI and that she's been taking Bactrim she thinks for about a week but she is not sure about time she had dysuria, she says she still has dysuria currently she was getting out of bed yesterday trying when she tripped and fell and hit the back of her head, but for the second time she was trying to get up she passed out, she wasn't sure how much she was on the floor. Daughter came and checked her heart rate was 42 and systolic blood pressure was 90s. Patient also has been complaining of from chest pain in the lower rib cage bilaterally. Patient describes the pain as mild and its get worse if she takes deep breath. She is on 2 L oxygen via nasal cannula for her COPD and her continuity director is Dr. Mcqueen She quit smoking many years ago. She denies alcohol or illicit drugs. Currently heart rate 67 and blood pressure 135/63. Patient is afebrile. Labs showing WBC of 2.7, platelet count 123 but hemoglobin normal. INR is aislinn l. Creatinine is elevated to 1.4, baseline 1.5-1.9. Risks of BMP and liver enzymes are unremarkable. Urine analysis is not suspicious for infection. Covid virus not detected EKG showing sinus bradycardia at [address]-T changes Chest x-ray showing cardiomegaly with minimal pleural reaction Patient received normal saline in the emergency room 02/03/2022 Patient today denies any more dizziness or syncope however she complains from frontal headache which bother her. No visual changes, no temporal tenderness Patient is still complaining of from dysuria at the end of her voiding. She has chronic left wound ulcer that he follows up with wound clinic, we'll consult infectious disease team on the case. Repeat urine analysis Continue with gentle hydration ceftriaxone and Eliquis Glucose controlled on Levemir and Amaryl 1 mg daily also patient and NovoLog 10 units with meals Objective - Vital Signs Vital signs: Vital Signs Temp 98.3 F 02/03/22 04:00 Pulse 78 02/03/22 08:00 Resp 16 02/03/22 08:00 BP 140/65 02/03/22 08:00 Pulse Ox 96 02/03/22 08:14 FiO2 Intake & Output 02/02/22 02/03/22 02/03/22 18:59 06:59 18:59 Intake Total 118 Output Total 625 300 Balance -507 -300 Intake: Oral 118 Output: Urine 625 300 Other: # Voids 1 - Exam GENERAL: The patient is alert and oriented x3, not in any acute distress. Well developed, well nourished. HEENT: Pupils are round and equally reacting to light. EOMI. No scleral icterus. No conjunctival pallor. Normocephalic, atraumatic. No pharyngeal erythema. No thyromegaly. CARDIOVASCULAR: S1 and S2 present. No murmurs, rubs, or gallops. PULMONARY: Chest is clear to auscultation, no wheezing or crackles. ABDOMEN: Soft, nontender, nondistended, normoactive bowel sounds. No palpable organomegaly. MUSCULOSKELETAL: No joint swelling or deformity. -EXTREMITIES: No cyanosis, clubbing, or pedal edema. Chronic left lateral wound with no surrounding cellulitis NEUROLOGICAL: Gross neurological examination did not reveal any focal deficits. SKIN: No rashes. no petechiae. - Labs CBC & Chem 7: 02/03/22 08:40 02/03/22 08:40 Labs: Abnormal Lab Results - Last 24 Hours (Table) 02/01/22 02/02/22 02/02/22 Range/Units 16:13 11:55 12:03 RBC (3.80-5.40) m/uL Hgb (11.4-16.0) gm/dL Hct (34.0-46.0) % MCHC (31.0-37.0) g/dL RDW (11.5-15.5) % Chloride (98-107) mmol/L Carbon Dioxide (22-30) mmol/L BUN (7-17) mg/dL Creatinine (0.52-1.04) mg/dL Glucose (74-99) mg/dL POC Glucose (mg/dL) 162 H (70-110) mg/dL Hemoglobin A1c 7.8 H (0.0-6.0) % Calcium (8.4-10.2) mg/dL Procalcitonin 0.17 H (0.02-0.09) ng/mL 02/02/22 02/03/22 02/03/22 Range/Units 20:39 08:40 08:40 RBC 3.20 L (3.80-5.40) m/uL Hgb 9.3 L D (11.4-16.0) gm/dL Hct 30.3 L (34.0-46.0) % MCHC 30.8 L (31.0-37.0) g/dL RDW 15.8 H (11.5-15.5) % Chloride 108 H (98-107) mmol/L Carbon Dioxide 18 L (22-30) mmol/L BUN 34 H (7-17) mg/dL Creatinine 1.92 H (0.52-1.04) mg/dL Glucose 160 H (74-99) mg/dL POC Glucose (mg/dL) 114 H (70-110) mg/dL Hemoglobin A1c (0.0-6.0) % Calcium 8.0 L (8.4-10.2) mg/dL Procalcitonin (0.02-0.09) ng/mL Assessment and Plan Assessment: Syncope suspected secondary to bradycardia and hypotension Acute on chronic heart failure mild acute COPD exacerbation Chest pain most likely related to her COPD exacerbation acute UTI partially treated, failed outpatient treatment hypertension Insulin-dependent diabetes mellitus History of depression, not an active issue Chronic atrial fibrillation on Eliquis History of coronary artery disease, status post bypass surgery COPD, no acute exacerbation History of CVA/TIA History of rheumatoid arthritis History of peripheral vascular disease status post stent in the right leg Chronic kidney disease stage III Plan: This is a pleasant 69 years old female who presents with syncope and bradycardia Continue close monitoring select units Continue gentle hydration . Normal saline 50 mL per hour cardiology consult start ceftriaxone, check a bladder scan. Send urinalysis and urine culture and consult ID team Start inhaled steroids and bronchodilator therapy Restart metoprolol Labs and medication were reviewed.. Continue same treatment. Continue with sym ptomatic treatment. Resume home medication. Monitor lytes and vitals. DVT and GI prophylaxis. Further recommendations as per clinical course of the patient DVT prophylaxis: Eliquis 2.5 mg GI Prophylaxis: Pepcid PT/OT: Pending Prognosis is guarded
[2022-02-03 19:53] LABS: Glucose,Whole Blood 110 mg/dL (70-110)
[2022-02-03] MEDS: MONTELUKAST 10 MG TAB PO SCH (20:21)
[2022-02-03] MEDS ORDERED: METOPROLOL TARTRATE 25 MG TAB PO SCH (21:00)
[2022-02-04 06:13] LABS: Glucose,Whole Blood 67 mg/dL (70-110)
[2022-02-04] MEDS: INSULIN ASPART (NovoLOG) 100 UNIT/ML VIAL SQ SCH ×4 (06:14→21:07)
[2022-02-04 06:27] LABS: Glucose,Whole Blood 67 mg/dL (70-110)
[2022-02-04 06:43] LABS: Glucose,Whole Blood 71 mg/dL (70-110)
[2022-02-04] MEDS: INSULIN DETEMIR (LEVEMIR) 100 UNIT/ML SYR SQ SCH (06:43)
[2022-02-04] MEDS: SODIUM CHLORIDE 0.9% 1,000 ML IV SCH (06:44)
[2022-02-04] MEDS: SYMBICORT 160-4.5 MCG INHALER INHALATION SCH ×2 (08:10→20:18)
[2022-02-04] MEDS: FAMOTIDINE 20 MG/2 ML VIAL IV SCH (10:06)
[2022-02-04] MEDS: APIXABAN 2.5 MG TABLET PO SCH ×2 (10:07→21:33)
[2022-02-04] MEDS: DULoxetine HCL 60 MG CAPSULE.DR PO SCH (10:07)
[2022-02-04] MEDS: FUROSEMIDE 20 MG TAB PO SCH (10:07)
[2022-02-04] MEDS: FERROUS SULFATE 325 MG TAB PO SCH (10:07)
[2022-02-04] MEDS: NON FORMULARY DRUG (Lumateperone Tosylate [Caplyta] 42 MG Capsule) PO SCH (10:51)
[2022-02-04 11:31] LABS: Glucose,Whole Blood 72 mg/dL (70-110)
[2022-02-04] MEDS: ACETAMINOPHEN TAB 325 MG TAB PO PRN (11:56)
--- NOTE | 2022-02-04 12:40 | XR ---
EXAMINATION TYPE: XR chest 1V DATE OF EXAM: 02/04/2022 12:31 PM COMPARISON: Chest radiographs from 02/01/2022 TECHNIQUE: XR chest 1V Portable AP radiograph of the chest. CLINICAL INDICATION:Female, 72 years old with history of CHF; FINDINGS: Lungs/Pleura: There is no evidence of pleural effusion, focal consolidation, or pneumothorax. Pulmonary vascularity: Unremarkable. Heart/mediastinum: Cardiomediastinal silhouette is enlarged and stable. Musculoskeletal: No acute osseous pathology. Midline sternotomy wires are noted. IMPRESSION: Cardiomegaly without evidence for acute heart failure.
[2022-02-04 13:28] LABS: Albumin 3.7 g/dL (3.5-5.0); Calcium 8.2 mg/dL (8.4-10.2); Potassium 5.5 mmol/L (3.5-5.1); Total Bilirubin 1.7 mg/dL (0.2-1.3); Total Protein 6.8 g/dL (6.3-8.2)
--- NOTE | 2022-02-04 13:30 | P.PN ---
Subjective Patient is a pleasant 72-year-old female who resides at a [facility] and has a known history of coronary artery disease status post CABG, ischemic cardiomyopathy, paroxysmal atrial fibrillation, hypertension, hyperlipidemia, and CVA. Patient follows with Dr. Soto in the office. We have been consulted to see the patient for bradycardia. Patient was found to be bradycardic with a heart rate in the 40s. Beta sonya has been held. Patient had an echocardiogram in October 2021 which showed moderate to severe LV dysfunction with an ejection fraction of 35% and [id number] mitral regurgitation. Not on ACEI/ARB secondary to renal function. Patient seen and examined at bedside, her main complaints are nausea, vomiting. She continues to have some dizziness and lightheadedness, aggravated by moving her head side to side. Her HR have improved to 6080s in sinus rhythm. No further bradycardia noted. GENERAL: In no acute distress. NECK: Supple without JVD or thyromegaly. LUNGS: Breath sounds clear to auscultation bilaterally. Respiration equal and unlabored. No wheezes, rales or rhonchi. HEART: Regular rate and rhythm without murmurs, rubs or gallops. S1 and S2 heard. EXTREMITIES: Normal range of motion, no edema. No clubbing or cyanosis. Peripheral pulses intact. ASSESSMENT Sinus bradycardia, improved Nausea, vomiting Acute on chronic kidney disease Lightheadedness, dizziness, possibly related to dehydration vs inner-ear etiology with aggravation by movement of head and not improved after heart rates have improved likely not cardiac etiology Coronary artery disease status post prior CABG Ischemic cardiomyopathy Paroxysmal atrial fibrillation on Eliquis Hypertension Hyperlipidemia History of CVA PLAN Continue to hold beta sonya Continue anticoagulation with eliquis No further changes at this time from a cardiology perspective Nurse Practitioner note has been reviewed, I agree with a documented findings and plan of care. Patient was seen and examined. Objective - Vital Signs Vital signs: Vital Signs Temp 97.9 F 02/04/22 08:00 Pulse 72 02/04/22 08:00 Resp 19 02/04/22 08:00 BP 149/68 02/04/22 08:00 Pulse Ox 92 L 02/04/22 08:10 FiO2 Intake & Output 02/03/22 02/04/22 02/04/22 18:59 06:59 18:59 Intake Total 420 118 Output Total 400 Balance 420 -400 118 Intake: Intake, IV Titration 300 Amount Sodium Chloride 0.9% 1, 200 000 ml @ 50 mls/hr IV . Q20H [facility] Rx#:[id number] cefTRIAXone 1 gm In 100 Sodium Chloride 0.9% 50 ml @ 100 mls/hr IVPB Q24HR [facility] Rx#:[id number] Oral 120 118 Output: Urine 400 Other: Voiding Method Bedside Commode # Voids 1 # Bowel Movements 1 - Labs CBC & Chem 7: 02/03/22 08:40 02/03/22 08:40 Labs: Abnormal Lab Results - Last 24 Hours (Table) 02/03/22 02/03/22 02/03/22 Range/Units 08:40 08:40 12:01 RBC 3.20 L (3.80-5.40) m/uL Hgb 9.3 L D (11.4-16.0) gm/dL Hct 30.3 L (34.0-46.0) % MCHC 30.8 L (31.0-37.0) g/dL RDW 15.8 H (11.5-15.5) % Chloride 108 H (98-107) mmol/L Carbon Dioxide 18 L (22-30) mmol/L BUN 34 H (7-17) mg/dL Creatinine 1.92 H (0.52-1.04) mg/dL Glucose 160 H (74-99) mg/dL POC Glucose (mg/dL) 134 H (70-110) mg/dL Calcium 8.0 L (8.4-10.2) mg/dL 02/03/22 02/04/22 02/04/22 Range/Units 16:57 06:11 06:25 RBC (3.80-5.40) m/uL Hgb (11.4-16.0) gm/dL Hct (34.0-46.0) % MCHC (31.0-37.0) g/dL RDW (11.5-15.5) % Chloride (98-107) mmol/L Carbon Dioxide (22-30) mmol/L BUN (7-17) mg/dL Creatinine (0.52-1.04) mg/dL Glucose (74-99) mg/dL POC Glucose (mg/dL) 123 H 67 L 67 L (70-110) mg/dL Calcium (8.4-10.2) mg/dL Microbiology - Last 24 Hours (Table) 02/02/22 00:40 Urine Culture - Preliminary Urine,Clean Catch
[2022-02-04 13:50] LABS: Glucose,Whole Blood 99 mg/dL (70-110)
--- NOTE | 2022-02-04 15:19 | P.PN ---
Subjective 02/04/2022 Patient is admitted for syncopal episode which is believed to be secondary to hypotension patient was also bradycardic cardiology evaluated the patient patient doesn't have any heart block patient is also being COPD exacerbation. Patient is a significantly confused today patient is severely encephalopathic because of which I'm obtaining arterial blood gas with a concern of CO2 retention patient will be started on systemic steroids inhalational treatments. Tramadol and other medications that can cause encephalopathy will be discon tinued. Patient is alert oriented 1. Patient is also on diuretics for heart failure, does have history of ischemic cardiomyopathy systolic dysfunction. Patient on this hospitalization is warranted completed presently receiving IV fluids off diuretics patient also has acute renal failure with the elevated creatinine to about 2 baseline appears to be around 1.2.e has an EF of around 35% Review of systems: Patient is completely confused PHYSICAL EXAMINATION: GENERAL: The patient is alert and oriented x2, not in any acute distress. Well developed, well nourished. HEENT: Pupils are round and equally reacting to light. EOMI. No scleral icterus. No conjunctival pallor. Normocephalic, atraumatic. No pharyngeal erythema. No thyromegaly. CARDIOVASCULAR: S1 and S2 present. No murmurs, rubs, or gallops. PULMONARY: Significant expiratory wheezing on exam ABDOMEN: Soft, nontender, nondistended, normoactive bowel sounds. No palpable organomegaly. MUSCULOSKELETAL: No joint swelling or deformity. EXTREMITIES: No cyanosis, clubbing, or pedal edema. NEUROLOGICAL: Gross neurological examination did not reveal any focal deficits. SKIN: No rashes. Assessment and plan Syncope suspected secondary to hypotension -Severe encephalopathy probably secondary to CO2 retention and is a possibility of toxic encephalopathy as well we will obtain ABG, discontinue medications that can cause encephalopathy -COPD with acute exacerbation: Patient was started on systemic strides inhalational treatments -Congestive heart failure chronic systolic dysfunction patient is not in acute exacerbation patient is volume depleted Chest pain most likely related to her COPD exacerbation No evidence of urinary tract infection hypertension Insulin-dependent diabetes mellitus Depression Chronic atrial fibrillation on Eliquis History of coronary artery disease, status post bypass surgery COPD, no acute exacerbation History of CVA/TIA rheumatoid arthritis peripheral vascular disease status post stent in the right leg Chronic kidney disease stage III probably diabetic nephropathy DVT prophylaxis: On eliquis Objective - Vital Signs Vital signs: Vital Signs Temp 98.4 F 02/04/22 11:58 Pulse 80 02/04/22 11:58 Resp 20 02/04/22 11:58 BP 182/85 02/04/22 11:58 Pulse Ox 96 02/04/22 11:58 FiO2 Intake & Output 02/03/22 02/04/22 02/04/22 18:59 06:59 18:59 Intake Total 420 118 Output Total 400 Balance 420 -400 118 Intake: Intake, IV Titration 300 Amount Sodium Chloride 0.9% 1, 200 000 ml @ 50 mls/hr IV . Q20H JAY Rx#:[id number] cefTRIAXone 1 gm In 100 Sodium Chloride 0.9% 50 ml @ 100 mls/hr IVPB Q24HR JAY Rx#:[id number] Oral 120 118 Output: Urine 400 Other: Voiding Method Bedside Commode Bedside Commode Incontinent # Voids 1 # Bowel Movements 1 - Labs CBC & Chem 7: 02/03/22 08:40 02/04/22 12:50 Labs: Abnormal Lab Results - Last 24 Hours (Table) 02/03/22 02/04/22 02/04/22 Range/Units 16:57 06:11 06:25 Potassium (3.5-5.1) mmol/L Chloride (98-107) mmol/L Carbon Dioxide (22-30) mmol/L BUN (7-17) mg/dL Creatinine (0.52-1.04) mg/dL Glucose (74-99) mg/dL POC Glucose (mg/dL) 123 H 67 L 67 L (70-110) mg/dL Calcium (8.4-10.2) mg/dL Total Bilirubin (0.2-1.3) mg/dL Alkaline Phosphatase (38-126) U/L 02/04/22 Range/Units 12:50 Potassium 5.5 H (3.5-5.1) mmol/L Chloride 108 H (98-107) mmol/L Carbon Dioxide 16 L (22-30) mmol/L BUN 28 H (7-17) mg/dL Creatinine 1.67 H (0.52-1.04) mg/dL Glucose 72 L (74-99) mg/dL POC Glucose (mg/dL) (70-110) mg/dL Calcium 8.2 L (8.4-10.2) mg/dL Total Bilirubin 1.7 H (0.2-1.3) mg/dL Alkaline Phosphatase 165 H (38-126) U/L Microbiology - Last 24 Hours (Table) 02/02/22 00:40 Urine Culture - Preliminary Urine,Clean Catch Group D Enterococcus
[2022-02-04] MEDS: IPRATROPIUM-ALBUTEROL 3 ML NEB INHALATION SCH ×2 (16:40→20:18)
[2022-02-04 16:43] LABS: Glucose,Whole Blood 87 mg/dL (70-110)
[2022-02-04] MEDS: methylPREDNISolone SOD SUCCI 40 MG/ML 1 ML VIAL IV SCH ×2 (17:05→21:34)
[2022-02-04] MEDS: AMPICILLIN-SULBACTAM 1.5 GM in SODIUM CHLORIDE 0.9% 50 ML IVPB SCH (17:05)
[2022-02-04 19:49] LABS: Glucose,Whole Blood 76 mg/dL (70-110)
[2022-02-04] MEDS: MONTELUKAST 10 MG TAB PO SCH (21:33)
--- NOTE | 2022-02-04 23:09 | P.PN ---
Subjective Progress Note Date: 02/03/22 Principal diagnosis: Urinary tract infection She is a 72-year-old female with a past medical history significant for recurrent urinary tract infection was brought into the ER for evaluation of bradycardia and some mental status changes there was concern for possible UTI. 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 On today's evaluation that is 02/03/2022, the patient is afebrile patient is breathing comfortably patient denies having any chest pain or shortness of breath or cough no abdominal pain no diarrhea Objective - Vital Signs Vital signs: Vital Signs Temp 98.3 F 02/03/22 04:00 Pulse 78 02/03/22 12:00 Resp 16 02/03/22 12:00 BP 176/75 02/03/22 12:00 Pulse Ox 94 L 02/03/22 12:00 FiO2 Intake & Output 02/02/22 02/03/22 02/03/22 18:59 06:59 18:59 Intake Total 118 420 Output Total 625 300 Balance -507 -300 420 Intake: Intake, IV Titration 300 Amount Sodium Chloride 0.9% 1, 200 000 ml @ 50 mls/hr IV . Q20H JAY Rx#:[id number] cefTRIAXone 1 gm In 100 Sodium Chloride 0.9% 50 ml @ 100 mls/hr IVPB Q24HR JAY Rx#:[id number] Oral 118 120 Output: Urine 625 300 Other: # Voids 1 - Exam GENERAL DESCRIPTION: An elderly female lying in bed in no distress RESPIRATORY SYSTEM: Unlabored breathing , decreased breath sounds at bases HEART: S1 S2 regular rate and rhythm , ABDOMEN: Soft , no tenderness EXTREMITIES: No edema feet - Labs CBC & Chem 7: 02/03/22 08:40 02/04/22 12:50 Labs: Abnormal Lab Results - Last 24 Hours (Table) 02/01/22 02/02/22 02/02/22 Range/Units 16:13 11:55 20:39 RBC (3.80-5.40) m/uL Hgb (11.4-16.0) gm/dL Hct (34.0-46.0) % MCHC (31.0-37.0) g/dL RDW (11.5-15.5) % Chloride (98-107) mmol/L Carbon Dioxide (22-30) mmol/L BUN (7-17) mg/dL Creatinine (0.52-1.04) mg/dL Glucose (74-99) mg/dL POC Glucose (mg/dL) 114 H (70-110) mg/dL Hemoglobin A1c 7.8 H (0.0-6.0) % Calcium (8.4-10.2) mg/dL Procalcitonin 0.17 H (0.02-0.09) ng/mL 02/03/22 02/03/22 02/03/22 Range/Units 08:40 08:40 12:01 RBC 3.20 L (3.80-5.40) m/uL Hgb 9.3 L D (11.4-16.0) gm/dL Hct 30.3 L (34.0-46.0) % MCHC 30.8 L (31.0-37.0) g/dL RDW 15.8 H (11.5-15.5) % Chloride 108 H (98-107) mmol/L Carbon Dioxide 18 L (22-30) mmol/L BUN 34 H (7-17) mg/dL Creatinine 1.92 H (0.52-1.04) mg/dL Glucose 160 H (74-99) mg/dL POC Glucose (mg/dL) 134 H (70-110) mg/dL Hemoglobin A1c (0.0-6.0) % Calcium 8.0 L (8.4-10.2) mg/dL Procalcitonin (0.02-0.09) ng/mL Microbiology - Last 24 Hours (Table) 02/02/22 00:40 Urine Culture - Preliminary Urine,Clean Catch Assessment and Plan (1) Urinary tract infection Current Visit: No Status: Acute Code(s): N39.0 - URINARY TRACT INFECTION, SITE NOT SPECIFIED SNOMED Code(s): 63325244 Plan: 1patient with a admission to the hospital mental status changes this patient did have slightly dysuria recently has been on Bactrim DS with a urine pain in the hospital not significantly positive could be because of the antibiotic exposure because of the persistent symptoms possible component of cystitis not behaving as deep infection. 2patient to continue with Rocephin 1 g daily while waiting for the cultures to finalize Time with Patient: Less than 30
[2022-02-05] MEDS: AMPICILLIN-SULBACTAM 1.5 GM in SODIUM CHLORIDE 0.9% 50 ML IVPB SCH ×2 (00:05→14:00)
[2022-02-05 00:19] LABS: ABG Base Excess -10.6 mmol/L; ABG HCO3 15 mmol/L (21-25); ABG Oxygen Saturation 98.3 % (94-97); ABG PCO2 27 mmHg (35-45); ABG PH 7.36 (7.35-7.45); ABG PO2 124 mmHg (83-108); ABG TCO2 16 mmol/L (19-24); Allen Test Performed? Yes
[2022-02-05 00:26] LABS: Glucose,Whole Blood 112 mg/dL (70-110)
[2022-02-05 01:03] LABS: Hepatitis B Surface Antigen Nonreactive (Nonreactive); Hepatitis C IgG Antibody Nonreactive (Nonreactive)
[2022-02-05] MEDS: IPRATROPIUM-ALBUTEROL 3 ML NEB INHALATION PRN (03:12)
[2022-02-05 05:48] LABS: Glucose,Whole Blood 155 mg/dL (70-110)
[2022-02-05] MEDS: INSULIN ASPART (NovoLOG) 100 UNIT/ML VIAL SQ SCH ×4 (06:10→20:28)
[2022-02-05] MEDS: INSULIN DETEMIR (LEVEMIR) 100 UNIT/ML SYR SQ SCH (06:10)
[2022-02-05] MEDS: SYMBICORT 160-4.5 MCG INHALER INHALATION SCH ×2 (07:34→23:04)
[2022-02-05] MEDS: IPRATROPIUM-ALBUTEROL 3 ML NEB INHALATION SCH ×4 (07:34→23:04)
[2022-02-05] MEDS: NON FORMULARY DRUG (Lumateperone Tosylate [Caplyta] 42 MG Capsule) PO SCH (10:29)
[2022-02-05] MEDS: FAMOTIDINE 20 MG/2 ML VIAL IV SCH (10:46)
[2022-02-05] MEDS: methylPREDNISolone SOD SUCCI 40 MG/ML 1 ML VIAL IV SCH (10:46)
--- NOTE | 2022-02-05 11:03 | P.PN ---
Subjective Patient is a pleasant 72-year-old female who resides at a shelter and has a known history of coronary artery disease status post CABG, ischemic cardiomyopathy, paroxysmal atrial fibrillation, hypertension, hyperlipidemia, and CVA. Patient follows with Dr. Soto in the office. We have been consulted to see the patient for bradycardia. Patient was found to be bradycardic with a heart rate in the 40s. Beta sonya has been held. Patient had an echocardiogram in October 2021 which showed moderate to severe LV dysfunction with an ejection fraction of 35% and [id number] mitral regurgitation. Not on ACEI/ARB secondary to renal function. Patient seen and examined at bedside,she appears slightly confused this morning. No specific complaints. Her BP remains elevated. She continues to have some dizziness and lightheadedness, aggravated by moving her head side to side. Her HR have improved to 6090ss in sinus rhythm. No further bradycardia noted. GENERAL: In no acute distress. NECK: Supple without JVD or thyromegaly. LUNGS: Breath sounds clear to auscultation bilaterally. Respiration equal and unlabored. No wheezes, rales or rhonchi. HEART: Regular rate and rhythm without murmurs, rubs or gallops. S1 and S2 heard. EXTREMITIES: Normal range of motion, no edema. No clubbing or cyanosis. Peripheral pulses intact. ASSESSMENT Sinus bradycardia, resolved. Nausea, vomiting Acute on chronic kidney disease Lightheadedness, dizziness, possibly related to dehydration vs inner-ear etiology with aggravation by movement of head and not improved after heart rates have improved likely not cardiac etiology Coronary artery disease status post prior CABG Ischemic cardiomyopathy Paroxysmal atrial fibrillation on Eliquis Hypertension Hyperlipidemia History of CVA PLAN Continue to hold beta sonya Start amlodipine 5mg daily 2D echocardiogram ordered Continue anticoagulation with eliquis No further changes at this time from a cardiology perspective Discharge per primary and clearance from other consultants. Follow up outpatient with Dr. Soto Nurse Practitioner note has been reviewed, I agree with a documented findings and plan of care. Patient was seen and examined. Objective - Vital Signs Vital signs: Vital Signs Temp 98.4 F 02/05/22 08:00 Pulse 92 02/05/22 08:00 Resp 19 02/05/22 08:00 BP 155/70 02/05/22 08:00 Pulse Ox 96 02/05/22 08:00 FiO2 Intake & Output 10/02/05/22 02/05/22 18:59 06:59 18:59 Intake Total 118 Output Total 600 Balance 118 -600 Intake: Oral 118 Output: Urine 600 Other: Voiding Method Bedside Commode Bedside Commode Incontinent # Voids 3 1 - Labs CBC & Chem 7: 02/03/22 08:40 02/04/22 12:50 Labs: Abnormal Lab Results - Last 24 Hours (Table) 02/04/22 02/05/22 02/05/22 Range/Units 12:50 00:15 00:17 ABG pCO2 27 L (35-45) mmHg ABG pO2 124 H (83-108) mmHg ABG HCO3 15 L (21-25) mmol/L ABG Total CO2 16 L (19-24) mmol/L ABG O2 Saturation 98.3 H (94-97) % Potassium 5.5 H (3.5-5.1) mmol/L Chloride 108 H (98-107) mmol/L Carbon Dioxide 16 L (22-30) mmol/L BUN 28 H (7-17) mg/dL Creatinine 1.67 H (0.52-1.04) mg/dL Glucose 72 L (74-99) mg/dL POC Glucose (mg/dL) 112 H (70-110) mg/dL Calcium 8.2 L (8.4-10.2) mg/dL Total Bilirubin 1.7 H (0.2-1.3) mg/dL Alkaline Phosphatase 165 H (38-126) U/L 02/05/22 Range/Units 05:47 ABG pCO2 (35-45) mmHg ABG pO2 (83-108) mmHg ABG HCO3 (21-25) mmol/L ABG Total CO2 (19-24) mmol/L ABG O2 Saturation (94-97) % Potassium (3.5-5.1) mmol/L Chloride (98-107) mmol/L Carbon Dioxide (22-30) mmol/L BUN (7-17) mg/dL Creatinine (0.52-1.04) mg/dL Glucose (74-99) mg/dL POC Glucose (mg/dL) 155 H (70-110) mg/dL Calcium (8.4-10.2) mg/dL Total Bilirubin (0.2-1.3) mg/dL Alkaline Phosphatase (38-126) U/L Microbiology - Last 24 Hours (Table) 02/02/22 00:40 Urine Culture - Preliminary Urine,Clean Catch Group D Enterococcus
[2022-02-05 11:37] LABS: Glucose,Whole Blood 208 mg/dL (70-110)
[2022-02-05 11:42] VITALS: BMI 27.9
[2022-02-05] MEDS ORDERED: SODIUM ZIRCONIUM CYCLOSILICATE 10 GM PACKET PO ONE (12:23)
--- NOTE | 2022-02-05 12:24 | P.PN ---
Subjective 02/04/2022 Patient is admitted for syncopal episode which is believed to be secondary to hypotension patient was also bradycardic cardiology evaluated the patient patient doesn't have any heart block patient is also being COPD exacerbation. Patient is a significantly confused today patient is severely encephalopathic because of which I'm obtaining arterial blood gas with a concern of CO2 retention patient will be started on systemic steroids inhalational treatments. Tramadol and other medications that can cause encephalopathy will be discon tinued. Patient is alert oriented 1. Patient is also on diuretics for heart failure, does have history of ischemic cardiomyopathy systolic dysfunction. Patient on this hospitalization is warranted completed presently receiving IV fluids off diuretics patient also has acute renal failure with the elevated creatinine to about 2 baseline appears to be around 1.2.e has an EF of around 35%. 02/05/2022 Patient's ABGs did not show any significant elevation in pCO2. Patient is still bit confused but appears to be bit better compared to yesterday. appears to have owners will cut down the dose of steroids, requested the nursing staff to ablate the patient always which helps with her confusion and delirium we'll [place] in a CT of the head without contrast to rule out any intracranial bleed possibility of which is low. Her serum creatinine continue to improve her wheezing improved. Review of systems: Patient is completely confused PHYSICAL EXAMINATION: GENERAL: The patient is alert and oriented x2, not in any acute distress. Well developed, well nourished. HEENT: Pupils are round and equally reacting to light. EOMI. No scleral icterus. No conjunctival pallor. Normocephalic, atraumatic. No pharyngeal erythema. No thyromegaly. CARDIOVASCULAR: S1 and S2 present. No murmurs, rubs, or gallops. PULMONARY: Expiratory wheezing improved ABDOMEN: Soft, nontender, nondistended, normoactive bowel sounds. No palpable organomegaly. MUSCULOSKELETAL: No joint swelling or deformity. EXTREMITIES: No cyanosis, clubbing, or pedal edema. NEUROLOGICAL: Gross neurological examination did not reveal any focal deficits. SKIN: No rashes. Assessment and plan Syncope suspected secondary to hypotension -Severe encephalopathy probably secondary hospitalization related delirium. We'll cut down the dose of steroids as well. Patient wheezing improved. We will use Seroquel on as-needed basis for delirium. We will also obtain a CT of the head. -COPD with acute exacerbation: Patient was started on systemic steroids inhalational treatments -Congestive heart failure chronic systolic dysfunction patient is not in acute exacerbation patient is volume depleted Chest pain most likely related to her COPD exacerbation No evidence of urinary tract infection hypertension Insulin-dependent diabetes mellitus Depression Chronic atrial fibrillation on History of coronary artery disease, status post bypass surgery COPD, no acute exacerbation History of CVA/TIA rheumatoid arthritis peripheral vascular disease status post stent in the right leg Chronic kidney disease stage III probably diabetic nephropathy DVT prophylaxis: On Objective - Vital Signs Vital signs: Vital Signs Temp 98.4 F 02/05/22 08:00 Pulse 92 02/05/22 08:00 Resp 19 02/05/22 08:00 BP 155/70 02/05/22 08:00 Pulse Ox 96 02/05/22 08:00 FiO2 Intake & Output 02/04/22 02/05/22 02/05/22 18:59 06:59 18:59 Intake Total 118 82 Output Total 600 Balance 118 -600 82 Weight 73.9 kg Intake: Oral 118 82 Output: Urine 600 Other: Voiding Method Bedside Commode Bedside Commode Incontinent # Voids 3 1 - Labs CBC & Chem 7: 02/03/22 08:40 02/04/22 12:50 Labs: Abnormal Lab Results - Last 24 Hours (Table) 02/04/22 02/05/22 02/05/22 Range/Units 12:50 00:15 00:17 ABG pCO2 27 L (35-45) mmHg ABG pO2 124 H (83-108) mmHg ABG HCO3 15 L (21-25) mmol/L ABG Total CO2 16 L (19-24) mmol/L ABG O2 Saturation 98.3 H (94-97) % Potassium 5.5 H (3.5-5.1) mmol/L Chloride 108 H (98-107) mmol/L Carbon Dioxide 16 L (22-30) mmol/L BUN 28 H (7-17) mg/dL Creatinine 1.67 H (0.52-1.04) mg/dL Glucose 72 L (74-99) mg/dL POC Glucose (mg/dL) 112 H (70-110) mg/dL Calcium 8.2 L (8.4-10.2) mg/dL Total Bilirubin 1.7 H (0.2-1.3) mg/dL Alkaline Phosphatase 165 H (38-126) U/L 02/05/22 02/05/22 Range/Units 05:47 11:36 ABG pCO2 (35-45) mmHg ABG pO2 (83-108) mmHg ABG HCO3 (21-25) mmol/L ABG Total CO2 (19-24) mmol/L ABG O2 Saturation (94-97) % Potassium (3.5-5.1) mmol/L Chloride (98-107) mmol/L Carbon Dioxide (22-30) mmol/L BUN (7-17) mg/dL Creatinine (0.52-1.04) mg/dL Glucose (74-99) mg/dL POC Glucose (mg/dL) 155 H 208 H (70-110) mg/dL Calcium (8.4-10.2) mg/dL Total Bilirubin (0.2-1.3) mg/dL Alkaline Phosphatase (38-126) U/L Microbiology - Last 24 Hours (Table) 02/02/22 00:40 Urine Culture - Preliminary Urine,Clean Catch Group D Enterococcus
[2022-02-05 12:26] LABS: Basophils % (A) 1 %; Eosinophils % (A) 0 %; HCT 37.8 % (34.0-46.0); HGB 11.5 gm/dL (11.4-16.0); Hypochromasia Marked; Lymphocytes # (A) 0.5 k/uL (1.0-4.8); Lymphocytes % (A) 11 %; MCHC 30.3 g/dL (31.0-37.0); MCV 98.9 fL (80.0-100.0); Mean Platelet Volume 8.1; Monocytes # (A) 0.1 k/uL (0-1.0); Monocytes % (A) 3 %; Neutrophils # (A) 4.1 k/uL (1.3-7.7); Neutrophils % (A) 85 %; Platelet Count 244 k/uL (150-450); RBC 3.82 m/uL (3.80-5.40); RDW 15.1 % (11.5-15.5); WBC 4.8 k/uL (3.8-10.6)
[2022-02-05 12:41] LABS: Calcium 8.5 mg/dL (8.4-10.2); Potassium 5.9 mmol/L (3.5-5.1)
--- NOTE | 2022-02-05 13:43 | CT ---
EXAMINATION TYPE: CT brain wo con CT DLP: 1468.3 mGycm, Automated exposure control for dose reduction was used. DATE OF EXAM: 02/05/2022 12:51 PM COMPARISON: Prior CT Brain from 02/01/2022 . CLINICAL INDICATION:Female, 72 years old with history of altered mental status, TECHNIQUE: Brain: Multiple axial CT images of the brain were obtained without IV contrast. FINDINGS: Brain: Extra-axial spaces: No abnormal extra-axial fluid collections. Ventricular system: Within normal limits Cerebral parenchyma: No acute intraparenchymal hemorrhage or mass effect. Chronic cephalization post erior right parietal lobe and right parieto-occipital junction. Old lacunar infarct right basal gangl ia. The forte-white junction is well differentiated. Scattered hypoattenuating areas are seen within t he white matter. Cerebral volume loss. Cerebellum: Unremarkable. Mass effect: No evidence of midline shift. Intracranial vasculature: unremarkable Soft tissues: Normal. Calvarium/osseous structures: No depressed skull fracture. Paranasal sinuses and mastoid air cells: Mild scattered paranasal sinus disease. Visualized orbits: Orbital contents are intact. IMPRESSION: 1. No acute intracranial process. No significant change in prior examination. 2. Remote infarct posterior right parietal lobe and right parietal occipital junction. 3. Remote lacunar infarct of the right basal ganglia with nonspecific white matter changes likely re lated to chronic small vessel ischemia.
[2022-02-05] MEDS: FERROUS SULFATE 325 MG TAB PO SCH (14:01)
[2022-02-05] MEDS: DULoxetine HCL 60 MG CAPSULE.DR PO SCH (14:01)
[2022-02-05] MEDS: amLODIPine 5 MG TAB PO SCH (14:01)
[2022-02-05] MEDS: APIXABAN 2.5 MG TABLET PO SCH ×2 (14:01→20:28)
[2022-02-05] MEDS ORDERED: COLLAGENASE 250 UNIT/GM OINTMENT 30 GM TUBE TOPICAL SCH (14:15)
--- NOTE | 2022-02-05 15:59 | CA ---
Transthoracic Echo Report Name: Tracee Price Age: 72 Gender: F : 1950 Exam Date: 02/05/2022 08:41 Exam Location: [facility] Ht (in): 64 Wt (lb): 162 Ordering Physician: Vaishnavi Merritt MD Attending/Referring Phys: Technical Services Coordinator Susana Ortiz RDCS Procedure CPT: Indications: cardiomyopathy Cardiac Hx: Technical Quality: Fair Contrast 1: Total Dose (mL): Contrast 2: Total Dose (mL): MEASUREMENTS (Male / Female) Normal Values 2D ECHO RV Internal Dim ED PLAX 3.5 cm DOPPLER TR Peak Velocity 315.9 cm/s TR Peak Gradient 39.9 mmHg Right Ventricular Systolic Press 44.0 mmHg FINDINGS Left Ventricle Left ventricular ejection fraction is estimated at 20-25 %. Severely reduced global left ventricular systolic function. Right Ventricle Mild pulmonary hypertension. Right Atrium Left Atrium Mitral Valve Aortic Valve Tricuspid Valve Mild tricuspid regurgitation. Pulmonic Valve Pericardium Normal pericardium. No pericardial effusion. Aorta CONCLUSIONS Severe global hypokinesis ejection fraction 20% Previewed by: Dr. Ovidio Paredes MD (Electronically Signed) Final Date: 05 February 2022 15:58
[2022-02-05 16:48] LABS: Glucose,Whole Blood 219 mg/dL (70-110)
[2022-02-05] MEDS: COLLAGENASE 250 UNIT/GM OINTMENT 30 GM TUBE TOPICAL SCH (17:02)
[2022-02-05 20:21] LABS: Glucose,Whole Blood 209 mg/dL (70-110)
[2022-02-05] MEDS: MONTELUKAST 10 MG TAB PO SCH (20:28)
[2022-02-06] MEDS: AMPICILLIN-SULBACTAM 1.5 GM in SODIUM CHLORIDE 0.9% 50 ML IVPB SCH ×2 (01:21→11:13)
[2022-02-06 06:23] LABS: Glucose,Whole Blood 205 mg/dL (70-110)
[2022-02-06] MEDS: INSULIN DETEMIR (LEVEMIR) 100 UNIT/ML SYR SQ SCH (06:37)
[2022-02-06] MEDS: INSULIN ASPART (NovoLOG) 100 UNIT/ML VIAL SQ SCH ×4 (06:43→20:55)
[2022-02-06] MEDS ORDERED: SODIUM CHLORIDE 0.9% 1,000 ML IV SCH (07:30)
[2022-02-06] MEDS: NON FORMULARY DRUG (Lumateperone Tosylate [Caplyta] 42 MG Capsule) PO SCH (07:45)
[2022-02-06] MEDS: FERROUS SULFATE 325 MG TAB PO SCH (07:46)
[2022-02-06] MEDS: FAMOTIDINE 20 MG/2 ML VIAL IV SCH (07:46)
[2022-02-06] MEDS: amLODIPine 5 MG TAB PO SCH (07:46)
[2022-02-06] MEDS: COLLAGENASE 250 UNIT/GM OINTMENT 30 GM TUBE TOPICAL SCH (07:46)
[2022-02-06] MEDS: APIXABAN 2.5 MG TABLET PO SCH ×2 (07:46→20:57)
[2022-02-06] MEDS: DULoxetine HCL 60 MG CAPSULE.DR PO SCH (07:46)
[2022-02-06] MEDS: IPRATROPIUM-ALBUTEROL 3 ML NEB INHALATION SCH ×4 (08:16→20:42)
[2022-02-06] MEDS: SYMBICORT 160-4.5 MCG INHALER INHALATION SCH ×2 (08:16→20:54)
[2022-02-06 08:45] LABS: HCT 35.6 % (34.0-46.0); Hypochromasia Marked; MCH 30.2 pg (25.0-35.0); MCHC 30.8 g/dL (31.0-37.0); MCV 97.9 fL (80.0-100.0); Mean Platelet Volume 8.8; Platelet Count 243 k/uL (150-450); RBC 3.63 m/uL (3.80-5.40); RDW 15.8 % (11.5-15.5); WBC 8.2 k/uL (3.8-10.6)
[2022-02-06] MEDS ORDERED: predniSONE 20 MG TAB PO SCH (09:00)
[2022-02-06 09:12] LABS: Calcium 8.5 mg/dL (8.4-10.2); Total Bilirubin 2.7 mg/dL (0.2-1.3); Total Protein 7.4 g/dL (6.3-8.2)
--- NOTE | 2022-02-06 09:21 | P.PN ---
Subjective Patient is a pleasant 72-year-old female who resides at a [facility] and has a known history of coronary artery disease status post CABG, ischemic cardiomyopathy, paroxysmal atrial fibrillation, hypertension, hyperlipidemia, and CVA. Patient follows with Dr. Soto in the office. We have been consulted to see the patient for bradycardia. Patient was found to be bradycardic with a heart rate in the 40s. Beta sonya has been held. Patient had an echocardiogram in October 2021 which showed moderate to severe LV dysfunction with an ejection fraction of 35% and [id number] mitral regurgitation. Not on ACEI/ARB secondary to renal function. 02/06/2022 Patient seen and examined at bedside, she is more confused this morning, not able to answer questions appropriately. No specific complaints. CT brain was completed which reported no acute intracranial process, remote infarct posterior right parietal lobe, right parietal occipital junction, rule out lacunar infarct of the right basal ganglia with nonspecific white matter changes likely related to chronic small vessel ischemia Her BP has improved. Her HR have improved to 6080s in sinus rhythm. No further bradycardia noted. GENERAL: In no acute distress. Confused. NECK: Supple without JVD or thyromegaly. LUNGS: Breath sounds clear to auscultation bilaterally. Respiration equal and unlabored. No wheezes, rales or rhonchi. HEART: Regular rate and rhythm without murmurs, rubs or gallops. S1 and S2 heard. EXTREMITIES: Normal range of motion, no edema. Peripheral pulses intact. NEURO: Confused alert, not oriented ASSESSMENT Sinus bradycardia, resolved. Nausea, vomiting Acute on chronic kidney disease Lightheadedness, dizziness, possibly related to dehydration vs inner-ear etiology with aggravation by movement of head and not improved after heart rates have improved likely not cardiac etiology Coronary artery disease status post prior CABG Ischemic cardiomyopathy, EF 20-25%, worsening cardiomyopathy on echo 02/05. Paroxysmal atrial fibrillation on Eliquis Hypertension Hyperlipidemia History of CVA Alerted mental status PLAN Continue to hold beta sonya secondary to bradycardia Patient unable to tolerate ACEI/ARB, entresto or spironolactone secondary to renal function Continue amlodipine 5mg daily Rest of management per primary Further recommendations based on clinical course Nurse Practitioner note has been reviewed, I agree with a documented findings and plan of care. Patient was seen and examined. Objective - Vital Signs Vital signs: Vital Signs Temp 98.4 F 02/06/22 04:00 Pulse 82 02/06/22 04:00 Resp 19 02/06/22 04:00 BP 135/67 02/06/22 04:00 Pulse Ox 94 L 02/06/22 04:00 FiO2 Intake & Output 02/05/22 02/06/22 02/06/22 18:59 06:59 18:59 Intake Total 82 Balance 82 Weight 73.9 kg Intake: Oral 82 Other: Voiding Method Bedside Commode Bedside Commode # Voids 3 0 - Labs CBC & Chem 7: 02/06/22 07:34 02/05/22 12:01 Labs: Abnormal Lab Results - Last 24 Hours (Table) 02/05/22 02/05/22 02/05/22 Range/Units 11:36 12:01 12:01 RBC (3.80-5.40) m/uL Hgb (11.4-16.0) gm/dL MCHC 30.3 L (31.0-37.0) g/dL RDW (11.5-15.5) % Lymphocytes # 0.5 L (1.0-4.8) k/uL Potassium 5.9 H (3.5-5.1) mmol/L Carbon Dioxide 13 L (22-30) mmol/L BUN 42 H (7-17) mg/dL Creatinine 1.96 H (0.52-1.04) mg/dL Glucose 210 H (74-99) mg/dL POC Glucose (mg/dL) 208 H (70-110) mg/dL 02/05/22 02/05/22 02/06/22 Range/Units 16:45 20:20 06:22 RBC (3.80-5.40) m/uL Hgb (11.4-16.0) gm/dL MCHC (31.0-37.0) g/dL RDW (11.5-15.5) % Lymphocytes # (1.0-4.8) k/uL Potassium (3.5-5.1) mmol/L Carbon Dioxide (22-30) mmol/L BUN (7-17) mg/dL Creatinine (0.52-1.04) mg/dL Glucose (74-99) mg/dL POC Glucose (mg/dL) 219 H 209 H 205 H (70-110) mg/dL 02/06/22 Range/Units 07:34 RBC 3.63 L (3.80-5.40) m/uL Hgb 11.0 L (11.4-16.0) gm/dL MCHC 30.8 L (31.0-37.0) g/dL RDW 15.8 H (11.5-15.5) % Lymphocytes # (1.0-4.8) k/uL Potassium (3.5-5.1) mmol/L Carbon Dioxide (22-30) mmol/L BUN (7-17) mg/dL Creatinine (0.52-1.04) mg/dL Glucose (74-99) mg/dL POC Glucose (mg/dL) (70-110) mg/dL Microbiology - Last 24 Hours (Table) 02/02/22 00:40 Urine Culture - Final Urine,Clean Catch Enterococcus faecium VRE
[2022-02-06 09:22] LABS: Potassium 6.7 mmol/L (3.5-5.1)
[2022-02-06] MEDS ORDERED: DEXTROSE 50% SYRINGE 50 ML IVP STA (09:31)
[2022-02-06] MEDS ORDERED: INSULIN REGULAR 100 UNIT/ML VIAL (IV) IV ONE (10:00)
[2022-02-06] MEDS ORDERED: SODIUM ZIRCONIUM CYCLOSILICATE 10 GM PACKET PO ONE ×2 (10:01→17:00)
[2022-02-06 11:37] LABS: Glucose,Whole Blood 223 mg/dL (70-110)
[2022-02-06] MEDS ORDERED: CALCIUM GLUCONATE IN NACL 1 GM in SALINE 1 100ML.BAG IVPB ONE (11:52)
[2022-02-06] MEDS ORDERED: SODIUM BICARB 8.4% 50 ML SYR (1 MEQ/ML) IV STA (11:53)
--- NOTE | 2022-02-06 12:30 | P.NPCON ---
History of Present Illness - Reason for Consult acute renal failure, chronic renal failure - History of Present Illness Reason for incision: Acute kidney injury on chronic kidney disease History of present illness: Patient is a 72-year-old female seen in consultation for acute kidney injury on chronic kidney disease. Patient has chronic kidney disease stage IIIa with baseline creatinine in the range of 1.3-1.4. Patient does not follow with nephrology outpatient. Patient percent as the hospital due to altered mental status and bradycardia. Creatinine on admission was 2.42 and improved to 1.67. It is back up to 2.66 today. Bradycardia has resolved. Blood pressure is stable. She is on room air. However she remains confused. Oral intake has been poor. Accurate urine output not documented. Patient currently has briefs on. She does have history of diabetes. I do see Bactrim and her home medication list but unsure as to how long she was taking this. She was also taking Lasix outpatient. I don't see any nonsteroidals. Potassium level has been high this admission and it was 5.9 yesterday and is up to 6.7 this morning. She did receive IV insulin with D50 as well as lokelma. Patient is quite acidotic with a bicarb level of 13. She is currently receiving normal saline at 75 mL an hour. She is on antibiotics for VRE UTI. Vital signs are stable. General: Awake. No acute distress. HEENT: Head exam is unremarkable. LUNGS: Breath sounds decreased. HEART: Rate and Rhythm are regular. ABDOMEN: Soft, no distention. EXTREMITITES: No edema. Past Medical History Past Medical History: Asthma, Coronary Artery Disease (CAD), Heart Failure, COPD, CVA/TIA, Diabetes Mellitus, Hyperlipidemia, Hypertension, Pneumonia, Rheumatoid Arthritis (RA) Additional Past Medical History / Comment(s): left GREAT TOE WOUND, with current dressing, partial amputation on 06/28/20. going to hyperbaric chamber 5 days a week, PICC line right arm Last Myocardial Infarction Date:: 2014 History of Any Multi-Drug Resistant Organisms: None Reported Past Surgical History: Adenoidectomy, Appendectomy, Coronary Bypass/CABG, Heart Catheterization, Tonsillectomy, Tubal Ligation Additional Past Surgical History / Comment(s): Open heart on April 13 2015, cabg X4, bilateral carotid endarterectomies,. Right great toe amputation 2014. stent in right leg above knee, elke cataracts. left toe ambutation, 06/18/20 Past Anesthesia/Blood Transfusion Reactions: Previous Problems w/ Anesthesia Additional Past Anesthesia/Blood Transfusion Reaction / Comment(s): diff breathing afterwards Past Psychological History: No Psychological Hx Reported Additional Psychological History / Comment(s): current depression r/t passing away a week ago Smoking Status: Never smoker Past Alcohol Use History: None Reported Additional Past Alcohol Use History / Comment(s): STARTED SMOKING AT AGE 17, SMOKED 1 OR MORE PPD, QUIT 1982from[facility] in Hospital in October 2013. 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 She is currently living at home with daughter and sister Past Drug Use History: None Reported - Past Family History Father Family Medical History: Coronary Artery Disease (CAD), CVA/TIA, Diabetes Mellitus Mother Family Medical History: Myocardial Infarction ([place]) Additional Family Medical History / Comment(s): "spot on the lung" Medications and Allergies Home Medications Medication Instructions Recorded Confirmed Type Montelukast Sodium [Singulair] 10 mg PO HS 07/15/20 02/01/22 History DULoxetine HCL [Cymbalta] 60 mg PO DAILY 08/29/20 02/01/22 History Insulin Glargine,Hum.rec.anlog 8 unit SQ DAILY 05/16/21 02/01/22 History [Lantus Solostar Pen] Furosemide [Lasix] 20 mg PO Q48H 08/08/21 02/01/22 History Apixaban [Eliquis] 2.5 mg PO BID 11/01/21 02/01/22 History Lumateperone Tosylate [Caplyta] 42 mg PO DAILY 11/01/21 02/01/22 History Metoprolol Tartrate [Lopressor] 25 mg PO HS 11/01/21 02/01/22 History Ascorbic Acid [Vitamin C] 1,000 mg PO DAILY 02/01/22 02/01/22 History Cholecalciferol [Vitamin D3 (25 25 mcg PO DAILY 02/01/22 02/01/22 History Mcg = 1000 Iu)] Ferrous Sulfate [Feosol] 325 mg PO DAILY 02/01/22 02/01/22 History Insulin Aspart [NovoLOG Flexpen] See Protocol SQ AC-TID 02/01/22 02/01/22 History Sulfamethox-Tmp 800-160Mg [Bactrim 1 tab PO BID 02/01/22 02/01/22 History DS 800-160 mg] Zinc Gluconate [Zinc] 50 mg PO DAILY 02/01/22 02/01/22 History traMADol HCL 50 mg PO BID PRN 02/01/22 02/01/22 History Allergies Allergy/AdvReac Type Severity Reaction Status Date / Time nickel Allergy Rash/Hives Verified 02/01/22 15:55 levofloxacin [From Levaquin] AdvReac Confusion Verified 02/01/22 15:55 Physical Exam Vitals: Vital Signs Temp Pulse Resp BP Pulse Ox 02/06/22 11:08 97.8 F 85 18 133/74 95 02/06/22 07:39 97.4 F L 83 16 146/81 95 02/06/22 04:00 98.4 F 82 19 135/67 94 L 02/06/22 00:00 98.5 F 86 19 136/70 91 L 02/05/22 20:00 98.3 F 88 18 114/56 92 L 02/05/22 15:39 97.9 F 86 17 136/71 95 02/05/22 14:00 87 17 Intake and Output 02/05/22 02/06/22 02/06/22 22:59 06:59 14:59 Other: Voiding Method Bedside Commode Bedside Commode Bedside Commode Diaper # Voids 0 0 Results - Lab Results Most recent lab results ABG pH 7.36 (7.35-7.45) 02/05/22 00:17 ABG pCO2 27 mmHg (35-45) L 02/05/22 00:17 ABG pO2 124 mmHg (83-108) H 02/05/22 00:17 ABG HCO3 15 mmol/L (21-25) L 02/05/22 00:17 ABG O2 Saturation 98.3 % (94-97) H 02/05/22 00:17 Calcium 8.5 mg/dL (8.4-10.2) 02/06/22 07:34 Magnesium 2.0 mg/dL (1.6-2.3) 02/06/22 07:34 02/06/22 07:34 02/06/22 07:34 Assessment and Plan Plan: Assessment: 1. Acute kidney injury secondary to ATN secondary to severe sepsis and hemodynamic instability. Creatinine 2.66 today. 2. Chronic kidney disease stage IIIa. Baseline creatinine in the range of 1.3- 1.4 s likely econdary to diabetic kidney disease. UA fairly benign with trace protein. 3. VRE UTI on antibiotics. 4. Metabolic acidosis secondary to acute kidney injury and IV fluids. 5. Hypertension with chronic kidney disease. Stable. 6. Diabetes mellitus. 7. Hyperkalemia secondary to acute kidney injury and metabolic acidosis. Rule out urinary retention. 8. Chronic systolic CHF with ejection fraction of 20%. 9. Sinus bradycardia. Resolved. Seen by cardiology. Plan: Stop normal saline. Start bicarb drip at 100 mL an hour. Insert Langston catheter for strict I's and os. Check renal ultrasound. 3 A of sodium bicarb IV push now and 1 g IV calcium gluconate. Repeat potassium level this afternoon. Continue to monitor renal function and urine output. Continue to assess need for renal replacement therapy. Per nurse, daughter has expressed that patient did not wish for aggressive measures. Thank you for the consultation. I will continue to follow the patient with you during her hospital stay.
[2022-02-06] MEDS: DEXTROSE 5% IN WATER 1,000 ML with SODIUM BICARB (1 MEQ/ML) 150 ML IV SCH (13:37)
[2022-02-06] MEDS ORDERED: ACETAMINOPHEN IV (For NPO) 1,000 MG in EMPTY BAG 1 BAG IVPB SCH (14:00)
--- NOTE | 2022-02-06 15:13 | US ---
EXAMINATION TYPE: US kidneys/renal and bladder DATE OF EXAM: 02/06/2022 COMPARISON: 11/03/2021 CLINICAL HISTORY: prema. prema EXAM MEASUREMENTS: Right Kidney: 10.0 x 4.6 x 5.0 cm Left Kidney: 11.2 x 4.1 x 5.8cm Right Kidney: No hydronephrosis or masses seen Left Kidney: No hydronephrosis or masses seen Bladder: barone cath, not seen mild ascites noted near liver and some free fluid seen within pelvis IMPRESSION: 1. No acute renal abnormality. 2. Mild ascites within the pelvis
[2022-02-06 16:31] LABS: Glucose,Whole Blood 217 mg/dL (70-110)
[2022-02-06 20:07] LABS: Glucose,Whole Blood 205 mg/dL (70-110)
[2022-02-06] MEDS: BUDESONIDE 1 MG/2 ML NEBU INHALATION SCH (20:42)
[2022-02-06] MEDS: MONTELUKAST 10 MG TAB PO SCH (20:57)
[2022-02-06] MEDS: QUEtiapine 25 MG TAB PO SCH (20:57)
[2022-02-07] MEDS: ACETAMINOPHEN IV (For NPO) 1,000 MG in EMPTY BAG 1 BAG IVPB SCH ×3 (00:59→12:34)
[2022-02-07] MEDS: AMPICILLIN-SULBACTAM 1.5 GM in SODIUM CHLORIDE 0.9% 50 ML IVPB SCH ×2 (01:46→11:26)
[2022-02-07] MEDS: DEXTROSE 5% IN WATER 1,000 ML with SODIUM BICARB (1 MEQ/ML) 150 ML IV SCH ×2 (04:16→13:29)
--- NOTE | 2022-02-07 05:33 | P.PN ---
Subjective Progress Note Date: 02/06/22 02/04/2022 Patient is admitted for syncopal episode which is believed to be secondary to hypotension patient was also bradycardic cardiology evaluated the patient patient doesn't have any heart block patient is also being COPD exacerbation. Patient is a significantly confused today patient is severely encephalopathic because of which I'm obtaining arterial blood gas with a concern of CO2 retention patient will be started on systemic steroids inhalational treatments. Tramadol and other medications that can cause encephalopathy will be discontinued. Patient is alert oriented 1. Patient is also on diuretics for heart failure, does have history of ischemic cardiomyopathy systolic dysfunction. Patient on this hospitalization is warranted completed presently receiving IV fluids off diuretics patient also has acute renal failure with the elevated creatinine to about 2 baseline appears to be around 1.2.e has an EF of around 35%. 02/05/2022 Patient's ABGs did not show any significant elevation in pCO2. Patient is still bit confused but appears to be bit better compared to yesterday. appears to have owners will cut down the dose of steroids, requested the nursing staff to ablate the patient always which helps with her confusion and delirium we'll [place] in a CT of the head without contrast to rule out any intracranial bleed possibility of which is low. Her serum creatinine continue to improve her wheezing improved. 02/06/2022 Patient is seen in follow-up this morning rolling around the bed, yelling and moaning and asking for "help". Patient is not eating nor taking any oral medications. Patient is saying "I don't want this, no, no, no" to treatment and help from the nursing staff at bedside. Ordered IV tylenol and seroquel. Recommend to hold narcotics and AIR CARGO SPECIALIST SUPERVISOR agents due to mentation. Patient is continued on IV zosyn and urine culture is showing VRE with ID following. Kidney functions have worsened and nephrology consulted and being started on bicarb drip. Possible dialysis is being discussed and family is refusing as this was discussed prior and patient refused and told daughter she never wanted dialysis. Patient is pulling at lines and no IV access at this time and midline is reordered. Potassium is elevated at 6.7 and a dose of lokelma is ordered again for today. Did order insulin, dextrose, and calcium gluconate cocktail. Will follow up with am labs. Patient family at the bedside with lengthy discussion had about palliative vs. hospice and they had palliative previously. Requesting hospice and will place the consult for informational. Review of systems: Patient is completely confused PHYSICAL EXAMINATION: GENERAL: The patient is alert and oriented x1, restess, and anxious. thin built and ill appearing HEENT: Pupils are round and equally reacting to light. EOMI. No scleral icterus. No conjunctival pallor. Normocephalic, atraumatic. No pharyngeal erythema. No thyromegaly. CARDIOVASCULAR: S1 and S2 present. No murmurs, rubs, or gallops. PULMONARY: Expiratory wheezing improved, diminished bilaterally ABDOMEN: Soft, nontender, nondistended, normoactive bowel sounds. No palpable organomegaly. MUSCULOSKELETAL: No joint swelling or deformity. EXTREMITIES: No cyanosis, clubbing, or pedal edema. multiple amputated toes with chronic wounds of the feet NEUROLOGICAL: Gross neurological examination did not reveal any focal deficits. restless, anxious SKIN: No rashes. Assessment and plan Syncope suspected secondary to hypotension Severe encephalopathy probably secondary hospitalization related delirium. steroids have been discontinued. Patient wheezing improved. Seroquel on as- needed basis for delirium ordered. CT brain was negative for acute process COPD with acute exacerbation: Patient maintained on systemic steroids inhalational treatments Congestive heart failure chronic systolic dysfunction patient is not in acute exacerbation patient is volume depleted Chest pain most likely related to her COPD exacerbation aucte urinary tract infection, present on admission with VRE hypertension Insulin-dependent diabetes mellitus Depression Chronic atrial fibrillation on Eliquis History of coronary artery disease, status post bypass surgery History of CVA/TIA rheumatoid arthritis peripheral vascular disease status post stent in the right leg Chronic kidney disease stage III probably diabetic nephropathy DVT prophylaxis: On eliquis No code Plan: Recommend to continue with current medications and as needed seroquel. Will add IV tylenol as patient is extremely restless and rolling around in the bed moaning and yelling for help per nursing staff. Avoid narcotics and laboratory specialist agents due to confusion and mentation. Kidney functions worsening and have consulted Nephrology with also an elevated potassium that is not really improving with lokelma. No IV access at the time and was ordered insulin, d50, calcium gluconate. Being started on bicarb drip Urine came back as VRE and patient is on IV zosyn with ID following New midline ordered Multiple chronic foot wounds noted that are currently dressed with kerlex and dry Multiple family members at the bedside including the daughter who is power of die casting machine operator and had multiple questions and concerns that were answered to the best of our ability. Requesting hospice consult for informational that was placed. Discussed at length about palliative vs. hospice and they refuse palliative as they had that from last admission and was reported that the palliative nurse alondra austin showed up. One sister out of state has questions and concerns ([place]) and attempted to call and phone number was incorrect or disconnected. Will attempt to call again in am. Family would like to discuss over a day or 2 before making final decision. Daughter at bedside mentioned that when patients mentation was better, she was adament about her code status and also mentioned on numerous occasions that she "was done with all of this and did not want to keep doing this". Patient continued to say "I don't want this" while in the room as RN was attempting to medicate and help with position changes. Recommend to monitor over the next day or two with follow up labs and continue with medications as prescribed and will discuss further with family about treatment plan. Given multiple complex medical issues, prognosis is guarded Recommend am labs. The impression and plan of care has been dictated by Lauren Castaneda, Nurse Practitioner as directed. Dr. René MD I have performed a history and examination and MDM of this patient, discussed the same with the dictator, and agree with the dictator's assessment and plan as written ,documented as a scribe. Based on total visit time, I have performed more than 50% of the visit. Objective - Vital Signs Vital signs: Vital Signs Temp 98.4 F 02/06/22 04:00 Pulse 82 02/06/22 04:00 Resp 19 02/06/22 04:00 BP 135/67 02/06/22 04:00 Pulse Ox 94 L 02/06/22 04:00 FiO2 Intake & Output 02/05/22 02/06/22 02/06/22 18:59 06:59 18:59 Intake Total 82 Balance 82 Weight 73.9 kg Intake: Oral 82 Other: Voiding Method Bedside Commode Bedside Commode # Voids 3 0 - Labs CBC & Chem 7: 02/06/22 07:34 02/06/22 14:56 Labs: Abnormal Lab Results - Last 24 Hours (Table) 10/02/05/22 02/05/22 Range/Units 11:36 12:01 12:01 RBC (3.80-5.40) m/uL Hgb (11.4-16.0) gm/dL MCHC 30.3 L (31.0-37.0) g/dL RDW (11.5-15.5) % Lymphocytes # 0.5 L (1.0-4.8) k/uL Potassium 5.9 H (3.5-5.1) mmol/L Carbon Dioxide 13 L (22-30) mmol/L BUN 42 H (7-17) mg/dL Creatinine 1.96 H (0.52-1.04) mg/dL Glucose 210 H (74-99) mg/dL POC Glucose (mg/dL) 208 H (70-110) mg/dL Total Bilirubin (0.2-1.3) mg/dL AST (14-36) U/L ALT (4-34) U/L Alkaline Phosphatase (38-126) U/L 02/05/22 02/05/22 02/06/22 Range/Units 16:45 20:20 06:22 RBC (3.80-5.40) m/uL Hgb (11.4-16.0) gm/dL MCHC (31.0-37.0) g/dL RDW (11.5-15.5) % Lymphocytes # (1.0-4.8) k/uL Potassium (3.5-5.1) mmol/L Carbon Dioxide (22-30) mmol/L BUN (7-17) mg/dL Creatinine (0.52-1.04) mg/dL Glucose (74-99) mg/dL POC Glucose (mg/dL) 219 H 209 H 205 H (70-110) mg/dL Total Bilirubin (0.2-1.3) mg/dL AST (14-36) U/L ALT (4-34) U/L Alkaline Phosphatase (38-126) U/L 02/06/22 02/06/22 Range/Units 07:34 07:34 RBC 3.63 L (3.80-5.40) m/uL Hgb 11.0 L (11.4-16.0) gm/dL MCHC 30.8 L (31.0-37.0) g/dL RDW 15.8 H (11.5-15.5) % Lymphocytes # (1.0-4.8) k/uL Potassium 6.7 H* (3.5-5.1) mmol/L Carbon Dioxide 13 L (22-30) mmol/L BUN 63 H (7-17) mg/dL Creatinine 2.66 H (0.52-1.04) mg/dL Glucose 196 H (74-99) mg/dL POC Glucose (mg/dL) (70-110) mg/dL Total Bilirubin 2.7 H (0.2-1.3) mg/dL AST 294 H (14-36) U/L ALT 87 H (4-34) U/L Alkaline Phosphatase 173 H (38-126) U/L Microbiology - Last 24 Hours (Table) 02/02/22 00:40 Urine Culture - Final Urine,Clean Catch Enterococcus faecium VRE
[2022-02-07 06:13] LABS: Glucose,Whole Blood 139 mg/dL (70-110)
[2022-02-07] MEDS: INSULIN ASPART (NovoLOG) 100 UNIT/ML VIAL SQ SCH ×4 (06:36→20:39)
[2022-02-07] MEDS: INSULIN DETEMIR (LEVEMIR) 100 UNIT/ML SYR SQ SCH (06:39)
[2022-02-07] MEDS: BUDESONIDE 1 MG/2 ML NEBU INHALATION SCH ×2 (08:01→20:19)
[2022-02-07] MEDS: IPRATROPIUM-ALBUTEROL 3 ML NEB INHALATION SCH ×4 (08:01→20:19)
[2022-02-07] MEDS: SYMBICORT 160-4.5 MCG INHALER INHALATION SCH ×2 (08:01→20:19)
--- NOTE | 2022-02-07 09:38 | P.PN ---
Subjective Patient is seen in follow-up for acute kidney injury. Morning labs pending. Resting in bed. Not a reliable historian. Blood pressure 146/78 this morning. Has a Langston catheter. Urine output documented as 650 mL today. On bicarb drip. Vital signs are stable. General: Resting in bed. HEENT: Head exam is unremarkable. LUNGS: Breath sounds decreased. HEART: Rate and Rhythm are regular. ABDOMEN: Soft, no distention. EXTREMITITES: No hematuria. Objective - Vital Signs Vital signs: Vital Signs Temp 97.5 F L 02/07/22 04:00 Pulse 87 02/07/22 04:00 Resp 20 02/07/22 04:00 BP 146/78 02/07/22 04:00 Pulse Ox 95 02/07/22 04:00 FiO2 Intake & Output 02/06/22 02/07/22 02/07/22 18:59 06:59 18:59 Output Total 300 350 Balance -300 -350 Output: Urine 300 350 Other: Voiding Method Indwelling Catheter Indwelling Catheter - Labs CBC & Chem 7: 02/06/22 07:34 02/06/22 14:56 Labs: Abnormal Lab Results - Last 24 Hours (Table) 02/06/22 02/06/22 02/06/22 Range/Units 07:34 11:34 14:56 Potassium 5.5 H (3.5-5.1) mmol/L POC Glucose (mg/dL) 223 H (70-110) mg/dL Troponin I 0.085 H* (0.000-0.034) ng/mL 02/06/22 02/06/22 02/07/22 Range/Units 16:29 20:05 06:11 Potassium (3.5-5.1) mmol/L POC Glucose (mg/dL) 217 H 205 H 139 H (70-110) mg/dL Troponin I (0.000-0.034) ng/mL Assessment and Plan Plan: Assessment: 1. Acute kidney injury secondary to ATN secondary to severe sepsis and hemodynamic instability. Creatinine 2.66 yesterday. No hydronephrosis noted on kidney ultrasound. 2. Chronic kidney disease stage IIIa. Baseline creatinine in the range of 1.3- 1.4 s likely secondary to diabetic kidney disease. UA fairly benign with trace protein. 3. VRE UTI on antibiotics. 4. Metabolic acidosis secondary to acute kidney injury and IV fluids. 5. Hypertension with chronic kidney disease. Stable. 6. Diabetes mellitus. 7. Hyperkalemia secondary to acute kidney injury and metabolic acidosis. Improved with medical management. 8. Chronic systolic CHF with ejection fraction of 20%. 9. Sinus bradycardia. Resolved. Seen by cardiology. Plan: Maintain bicarb drip. Maintain Langston catheter for strict I's and O's for now. Continue to monitor renal function and urine output. Follow-up morning labs. Case discussed with patient's daughter yesterday. Conservative measures only. No renal replacement therapy.
[2022-02-07] MEDS: NON FORMULARY DRUG (Lumateperone Tosylate [Caplyta] 42 MG Capsule) PO SCH (09:51)
[2022-02-07] MEDS: FAMOTIDINE 20 MG/2 ML VIAL IV SCH (09:53)
[2022-02-07] MEDS: DULoxetine HCL 60 MG CAPSULE.DR PO SCH (09:57)
[2022-02-07] MEDS: APIXABAN 2.5 MG TABLET PO SCH ×2 (09:57→20:39)
[2022-02-07] MEDS: FERROUS SULFATE 325 MG TAB PO SCH (09:57)
[2022-02-07] MEDS: amLODIPine 5 MG TAB PO SCH (09:58)
[2022-02-07] MEDS: COLLAGENASE 250 UNIT/GM OINTMENT 30 GM TUBE TOPICAL SCH (09:58)
--- NOTE | 2022-02-07 10:21 | P.PN ---
Subjective Patient is a pleasant 72-year-old female who resides at a [facility] and has a known history of coronary artery disease status post CABG, ischemic cardiomyopathy, paroxysmal atrial fibrillation, hypertension, hyperlipidemia, and CVA. Patient follows with Dr. Soto in the office. We have been consulted to see the patient for bradycardia. Patient was found to be bradycardic with a heart rate in the 40s. Beta sonya has been held. Patient had an echocardiogram in October 2021 which showed moderate to severe LV dysfunction with an ejection fraction of 35% and [id number] mitral regurgitation. Not on ACEI/ARB secondary to renal function. 02/06/2022 Patient seen and examined at bedside, she continues to be confused, not able to answer questions appropriately. CT brain yesterday was completed which reported no acute intracranial process, remote infarct posterior right parietal lobe, right parietal occipital junction, rule out lacunar infarct of the right basal ganglia with nonspecific white matter changes likely related to chronic small vessel ischemia Her HR have improved to 7080s in sinus rhythm. No further bradycardia noted. Patient's labs revealed hypokalemia, worsening renal function, worsening LFT, troponin 0.08 GENERAL: In no acute distress. Confused. NECK: Supple without JVD or thyromegaly. LUNGS: Breath sounds clear to auscultation bilaterally. Respiration equal and unlabored. No wheezes, rales or rhonchi. HEART: Regular rate and rhythm without murmurs, rubs or gallops. S1 and S2 heard. EXTREMITIES: Normal range of motion, no edema. Peripheral pulses intact. NEURO: Confused alert, not oriented ASSESSMENT Sinus bradycardia, resolved. Nausea, vomiting Acute on chronic kidney disease Elevated troponin related to acute kidney injury, worsening renal function Lightheadedness, dizziness, possibly related to dehydration vs inner-ear etiology with aggravation by movement of head and not improved after heart rates have improved likely not cardiac etiology Coronary artery disease status post prior CABG Ischemic cardiomyopathy, EF 20-25%, worsening cardiomyopathy on echo 02/05. Paroxysmal atrial fibrillation on Eliquis Hypertension Hyperlipidemia History of CVA Alerted mental status PLAN No further bradycardia noted. No further recommendations from a cardiology perspective Rest of management per primary Patient unable to tolerate ACEI/ARB, entresto or spironolactone secondary to renal function Unable to tolerate beta sonya secondary to bradycardia on admission. Patient is not a good candidate for intervention at this time Continue amlodipine 5mg daily if can tolerate Prognosis is guarded Please reconsult if needed. Nurse Practitioner note has been reviewed, I agree with a documented findings and plan of care. Patient was seen and examined. Objective - Vital Signs Vital signs: Vital Signs Temp 97.5 F L 02/07/22 04:00 Pulse 88 02/07/22 10:07 Resp 15 02/07/22 09:49 BP 167/83 02/07/22 09:49 Pulse Ox 94 L 02/07/22 09:49 FiO2 Intake & Output 02/06/22 02/07/22 02/07/22 18:59 06:59 18:59 Output Total 300 350 200 Balance -300 -350 -200 Output: Urine 300 350 200 Other: Voiding Method Indwelling Catheter Indwelling Catheter Indwelling Catheter # Bowel Movements 1 - Labs CBC & Chem 7: 02/06/22 07:34 02/06/22 14:56 Labs: Abnormal Lab Results - Last 24 Hours (Table) 02/06/22 02/06/22 02/06/22 Range/Units 11:34 14:56 16:29 Potassium 5.5 H (3.5-5.1) mmol/L POC Glucose (mg/dL) 223 H 217 H (70-110) mg/dL 02/06/22 02/07/22 Range/Units 20:05 06:11 Potassium (3.5-5.1) mmol/L POC Glucose (mg/dL) 205 H 139 H (70-110) mg/dL
[2022-02-07 11:02] LABS: Calcium 8.2 mg/dL (8.4-10.2); Magnesium 2.1 mg/dL (1.6-2.3); Potassium 4.9 mmol/L (3.5-5.1)
[2022-02-07 11:47] LABS: Glucose,Whole Blood 132 mg/dL (70-110)
[2022-02-07 16:51] LABS: Glucose,Whole Blood 178 mg/dL (70-110)
[2022-02-07 17:01] LABS: Amorphous Sediment,Urine Occasional /hpf; Appearance,Urine Clear (Clear); Bilirubin,Urine Negative (Negative); Blood,Urine Moderate (Negative); Color,Urine Yellow; Glucose,Urine (UA) Negative (Negative); Hyaline Casts,Urine 12 /lpf (0-2); Ketones,Urine Trace (Negative); Leukocyte Esterase,Urine Negative (Negative); Mucus,Urine Rare /hpf; Nitrite,Urine Negative (Negative); PH, Urine 5.5 (5.0-8.0); Protein,Urine 2+ (Negative); RBC,Urine 7 /hpf (0-5); Specific Gravity,Urine 1.019 (1.001-1.035); Urobilinogen,Urine <2.0 mg/dL (<2.0); WBC,Urine 3 /hpf (0-5)
[2022-02-07 19:55] LABS: Glucose,Whole Blood 157 mg/dL (70-110)
[2022-02-07] MEDS: MONTELUKAST 10 MG TAB PO SCH (20:39)
[2022-02-07] MEDS: QUEtiapine 25 MG TAB PO SCH (20:39)
--- NOTE | 2022-02-07 22:00 | P.PN ---
Subjective Progress Note Date: 02/04/22 Principal diagnosis: Urinary tract infection She is a 72-year-old female with a past medical history significant for recurrent urinary tract infection was brought into the ER for evaluation of bradycardia and some mental status changes there was concern for possible UTI. 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 On today's evaluation that is 01/13/2022, the patient remains to be afebrile patient is breathing comfortably on room air, patient denies having any chest pain or shortness of breath or cough no abdominal pain no diarrhea Objective - Vital Signs Vital signs: Vital Signs Temp 98.5 F 02/04/22 16:00 Pulse 77 02/04/22 16:54 Resp 19 02/04/22 16:00 BP 159/72 02/04/22 16:00 Pulse Ox 98 02/04/22 16:44 FiO2 Intake & Output 02/04/22 02/04/22 02/05/22 06:59 18:59 06:59 Intake Total 118 Output Total 400 400 Balance -400 118 -400 Intake: Oral 118 Output: Urine 400 400 Other: Voiding Method Bedside Commode Bedside Commode Incontinent # Voids 1 3 1 # Bowel Movements 1 - Exam GENERAL DESCRIPTION: An elderly female lying in bed in no distress RESPIRATORY SYSTEM: Unlabored breathing , decreased breath sounds at bases HEART: S1 S2 regular rate and rhythm , ABDOMEN: Soft , no tenderness EXTREMITIES: No edema feet - Labs CBC & Chem 7: 02/06/22 07:34 02/07/22 10:33 Labs: Abnormal Lab Results - Last 24 Hours (Table) 02/04/22 02/04/22 02/04/22 Range/Units 06:11 06:25 12:50 Potassium 5.5 H (3.5-5.1) mmol/L Chloride 108 H (98-107) mmol/L Carbon Dioxide 16 L (22-30) mmol/L BUN 28 H (7-17) mg/dL Creatinine 1.67 H (0.52-1.04) mg/dL Glucose 72 L (74-99) mg/dL POC Glucose (mg/dL) 67 L 67 L (70-110) mg/dL Calcium 8.2 L (8.4-10.2) mg/dL Total Bilirubin 1.7 H (0.2-1.3) mg/dL Alkaline Phosphatase 165 H (38-126) U/L Microbiology - Last 24 Hours (Table) 02/02/22 00:40 Urine Culture - Preliminary Urine,Clean Catch Group D Enterococcus Assessment and Plan (1) Urinary tract infection Current Visit: No Status: Acute Code(s): N39.0 - URINARY TRACT INFECTION, SITE NOT SPECIFIED SNOMED Code(s): 21610974 Plan: 1patient with a admission to the hospital mental status changes this patient did have slightly dysuria recently has been on Bactrim DS with a urine pain in the hospital not significantly positive could be because of the antibiotic exposure because of the persistent symptoms possible component of cystitis not behaving as deep infection. 2patient urine is showing enterococcus species antibiotic was switched over to Unasyn 3left foot lateral border wound with no cellulitis, local wound care with the Santyl Time with Patient: Less than 30
--- NOTE | 2022-02-07 22:02 | P.PN ---
Subjective Progress Note Date: 02/05/22 Principal diagnosis: Urinary tract infection She is a 72-year-old female with a past medical history significant for recurrent urinary tract infection was brought into the ER for evaluation of bradycardia and some mental status changes there was concern for possible UTI. 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 On today's evaluation that is 02/05/2022, the patient continues to be afebrile, the patient has developed significant mental status changes, unable to obtain any history no vomiting or diarrhea has been reported Objective - Vital Signs Vital signs: Vital Signs Temp 97.9 F 02/05/22 15:39 Pulse 86 02/05/22 15:39 Resp 17 02/05/22 15:39 BP 136/71 02/05/22 15:39 Pulse Ox 95 02/05/22 15:39 FiO2 Intake & Output 02/04/22 02/05/22 02/05/22 18:59 06:59 18:59 Intake Total 118 82 Output Total 600 Balance 118 -600 82 Weight 73.9 kg Intake: Oral 118 82 Output: Urine 600 Other: Voiding Method Bedside Commode Bedside Commode Bedside Commode Incontinent # Voids 3 1 3 - Exam GENERAL DESCRIPTION: An elderly female lying in bed in no distress RESPIRATORY SYSTEM: Unlabored breathing , decreased breath sounds at bases HEART: S1 S2 regular rate and rhythm , ABDOMEN: Soft , no tenderness EXTREMITIES: No edema feet - Labs CBC & Chem 7: 02/06/22 07:34 02/07/22 10:33 Labs: Abnormal Lab Results - Last 24 Hours (Table) 02/05/22 02/05/22 02/05/22 Range/Units 00:15 00:17 05:47 MCHC (31.0-37.0) g/dL Lymphocytes # (1.0-4.8) k/uL ABG pCO2 27 L (35-45) mmHg ABG pO2 124 H (83-108) mmHg ABG HCO3 15 L (21-25) mmol/L ABG Total CO2 16 L (19-24) mmol/L ABG O2 Saturation 98.3 H (94-97) % Potassium (3.5-5.1) mmol/L Carbon Dioxide (22-30) mmol/L BUN (7-17) mg/dL Creatinine (0.52-1.04) mg/dL Glucose (74-99) mg/dL POC Glucose (mg/dL) 112 H 155 H (70-110) mg/dL 02/05/22 02/05/22 02/05/22 Range/Units 11:36 12:01 12:01 MCHC 30.3 L (31.0-37.0) g/dL Lymphocytes # 0.5 L (1.0-4.8) k/uL ABG pCO2 (35-45) mmHg ABG pO2 (83-108) mmHg ABG HCO3 (21-25) mmol/L ABG Total CO2 (19-24) mmol/L ABG O2 Saturation (94-97) % Potassium 5.9 H (3.5-5.1) mmol/L Carbon Dioxide 13 L (22-30) mmol/L BUN 42 H (7-17) mg/dL Creatinine 1.96 H (0.52-1.04) mg/dL Glucose 210 H (74-99) mg/dL POC Glucose (mg/dL) 208 H (70-110) mg/dL 02/05/22 Range/Units 16:45 MCHC (31.0-37.0) g/dL Lymphocytes # (1.0-4.8) k/uL ABG pCO2 (35-45) mmHg ABG pO2 (83-108) mmHg ABG HCO3 (21-25) mmol/L ABG Total CO2 (19-24) mmol/L ABG O2 Saturation (94-97) % Potassium (3.5-5.1) mmol/L Carbon Dioxide (22-30) mmol/L BUN (7-17) mg/dL Creatinine (0.52-1.04) mg/dL Glucose (74-99) mg/dL POC Glucose (mg/dL) 219 H (70-110) mg/dL Microbiology - Last 24 Hours (Table) 02/02/22 00:40 Urine Culture - Final Urine,Clean Catch Enterococcus faecium VRE Assessment and Plan (1) Urinary tract infection Current Visit: No Status: Acute Code(s): N39.0 - URINARY TRACT INFECTION, SITE NOT SPECIFIED SNOMED Code(s): 98514491 Plan: 1patient with a admission to the hospital mental status changes this patient did have slightly dysuria recently has been on Bactrim DS with a urine pain in the hospital not significantly positive could be because of the antibiotic exposure because of the persistent symptoms possible component of cystitis not behaving as deep infection. 2patient urine is currently growing enterococcus species patient to continue Unasyn 3left foot lateral border wound with no cellulitis, local wound care with the Santyl and keep the area off the pressure Time with Patient: Less than 30
--- NOTE | 2022-02-07 22:04 | P.PN ---
Subjective Progress Note Date: 02/06/22 Principal diagnosis: Urinary tract infection She is a 72-year-old female with a past medical history significant for recurrent urinary tract infection was brought into the ER for evaluation of bradycardia and some mental status changes there was concern for possible UTI. 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 On today's evaluation that is 02/06/2022, the patient remains to be afebrile, the patient is slightly more awake and alert and did answer some simple question, no chest pain or cough no abdominal pain or diarrhea Objective - Vital Signs Vital signs: Vital Signs Temp 97.8 F 02/06/22 11:08 Pulse 85 02/06/22 11:08 Resp 18 02/06/22 11:08 BP 133/74 02/06/22 11:08 Pulse Ox 95 02/06/22 11:08 FiO2 Intake & Output 02/05/22 02/06/22 02/06/22 18:59 06:59 18:59 Intake Total 82 Balance 82 Weight 73.9 kg Intake: Oral 82 Other: Voiding Method Bedside Commode Bedside Commode Bedside Commode Diaper # Voids 3 0 - Exam GENERAL DESCRIPTION: An elderly female lying in bed in no distress RESPIRATORY SYSTEM: Unlabored breathing , decreased breath sounds at bases HEART: S1 S2 regular rate and rhythm , ABDOMEN: Soft , no tenderness EXTREMITIES: No edema feet - Labs CBC & Chem 7: 02/06/22 07:34 02/07/22 10:33 Labs: Abnormal Lab Results - Last 24 Hours (Table) 02/05/22 02/05/22 02/05/22 Range/Units 12:01 12:01 16:45 RBC (3.80-5.40) m/uL Hgb (11.4-16.0) gm/dL MCHC 30.3 L (31.0-37.0) g/dL RDW (11.5-15.5) % Lymphocytes # 0.5 L (1.0-4.8) k/uL Potassium 5.9 H (3.5-5.1) mmol/L Carbon Dioxide 13 L (22-30) mmol/L BUN 42 H (7-17) mg/dL Creatinine 1.96 H (0.52-1.04) mg/dL Glucose 210 H (74-99) mg/dL POC Glucose (mg/dL) 219 H (70-110) mg/dL Total Bilirubin (0.2-1.3) mg/dL AST (14-36) U/L ALT (4-34) U/L Alkaline Phosphatase (38-126) U/L Troponin I (0.000-0.034) ng/mL 02/05/22 02/06/22 02/06/22 Range/Units 20:20 06:22 07:34 RBC 3.63 L (3.80-5.40) m/uL Hgb 11.0 L (11.4-16.0) gm/dL MCHC 30.8 L (31.0-37.0) g/dL RDW 15.8 H (11.5-15.5) % Lymphocytes # (1.0-4.8) k/uL Potassium (3.5-5.1) mmol/L Carbon Dioxide (22-30) mmol/L BUN (7-17) mg/dL Creatinine (0.52-1.04) mg/dL Glucose (74-99) mg/dL POC Glucose (mg/dL) 209 H 205 H (70-110) mg/dL Total Bilirubin (0.2-1.3) mg/dL AST (14-36) U/L ALT (4-34) U/L Alkaline Phosphatase (38-126) U/L Troponin I (0.000-0.034) ng/mL 02/06/22 02/06/22 02/06/22 Range/Units 07:34 07:34 11:34 RBC (3.80-5.40) m/uL Hgb (11.4-16.0) gm/dL MCHC (31.0-37.0) g/dL RDW (11.5-15.5) % Lymphocytes # (1.0-4.8) k/uL Potassium 6.7 H* (3.5-5.1) mmol/L Carbon Dioxide 13 L (22-30) mmol/L BUN 63 H (7-17) mg/dL Creatinine 2.66 H (0.52-1.04) mg/dL Glucose 196 H (74-99) mg/dL POC Glucose (mg/dL) 223 H (70-110) mg/dL Total Bilirubin 2.7 H (0.2-1.3) mg/dL AST 294 H (14-36) U/L ALT 87 H (4-34) U/L Alkaline Phosphatase 173 H (38-126) U/L Troponin I 0.085 H* (0.000-0.034) ng/mL Microbiology - Last 24 Hours (Table) 02/02/22 00:40 Urine Culture - Final Urine,Clean Catch Enterococcus faecium VRE Assessment and Plan (1) Urinary tract infection Current Visit: No Status: Acute Code(s): N39.0 - URINARY TRACT INFECTION, SITE NOT SPECIFIED SNOMED Code(s): 72057910 Plan: 1patient with a admission to the hospital mental status changes this patient did have slightly dysuria recently has been on Bactrim DS with a urine pain in the hospital not significantly positive could be because of the antibiotic expos ure because of the persistent symptoms possible component of cystitis not behaving as deep infection. 2patient urine is currently growing enterococcus, patient is currently covered with Unasyn while waiting for the cultures to finalize and monitor clinical course closely 3left foot lateral border wound with no cellulitis, local wound care with the Santyl and keep the area off the pressure Time with Patient: Less than 30
--- NOTE | 2022-02-07 22:05 | P.PN ---
Subjective Progress Note Date: 02/07/22 Principal diagnosis: Urinary tract infection She is a 72-year-old female with a past medical history significant for recurrent urinary tract infection was brought into the ER for evaluation of bradycardia and some mental status changes there was concern for possible UTI. 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 On today's evaluation that is 02/07/2022, the patient continues to be afebrile, the patient remains to be pleasantly confused and unable to provide any history no vomiting diarrhea or any changes reported by the nursing staff Objective - Vital Signs Vital signs: Vital Signs Temp 97.5 F L 02/07/22 04:00 Pulse 94 02/07/22 11:31 Resp 15 02/07/22 11:31 BP 144/83 02/07/22 11:31 Pulse Ox 94 L 02/07/22 11:31 FiO2 Intake & Output 02/06/22 02/07/22 02/07/22 18:59 06:59 18:59 Output Total 300 350 200 Balance -300 -350 -200 Output: Urine 300 350 200 Other: Voiding Method Indwelling Catheter Indwelling Catheter Indwelling Catheter # Bowel Movements 1 - Exam GENERAL DESCRIPTION: An elderly female lying in bed in no distress RESPIRATORY SYSTEM: Unlabored breathing , decreased breath sounds at bases HEART: S1 S2 regular rate and rhythm , ABDOMEN: Soft , no tenderness EXTREMITIES: No edema feet - Labs CBC & Chem 7: 02/06/22 07:34 02/07/22 10:33 Labs: Abnormal Lab Results - Last 24 Hours (Table) 02/06/22 02/06/22 02/07/22 Range/Units 16:29 20:05 06:11 Carbon Dioxide (22-30) mmol/L BUN (7-17) mg/dL Creatinine (0.52-1.04) mg/dL Glucose (74-99) mg/dL POC Glucose (mg/dL) 217 H 205 H 139 H (70-110) mg/dL Calcium (8.4-10.2) mg/dL 02/07/22 02/07/22 Range/Units 10:33 11:44 Carbon Dioxide 18 L (22-30) mmol/L BUN 75 H (7-17) mg/dL Creatinine 2.52 H (0.52-1.04) mg/dL Glucose 128 H (74-99) mg/dL POC Glucose (mg/dL) 132 H (70-110) mg/dL Calcium 8.2 L (8.4-10.2) mg/dL Assessment and Plan (1) Urinary tract infection Current Visit: No Status: Acute Code(s): N39.0 - URINARY TRACT INFECTION, SITE NOT SPECIFIED SNOMED Code(s): 83426488 Plan: 1patient with a admission to the hospital mental status changes this patient did have slightly dysuria recently has been on Bactrim DS with a urine pain in the hospital not significantly positive could be because of the antibiotic exposure because of the persistent symptoms possible component of cystitis not behaving as deep infection. 2left foot lateral border wound with no cellulitis, local wound care with the Santyl and keep the area off the pressure 3urine has been finalized with a VRE, we will discontinue Unasyn start the patient on daptomycin repeat UA and culture, ultrasound did not show any structural abnormality Time with Patient: Less than 30
--- NOTE | 2022-02-08 06:08 | P.PN ---
Subjective Progress Note Date: 02/07/22 02/04/2022 Patient is admitted for syncopal episode which is believed to be secondary to hypotension patient was also bradycardic cardiology evaluated the patient patient doesn't have any heart block patient is also being COPD exacerbation. Patient is a significantly confused today patient is severely encephalopathic because of which I'm obtaining arterial blood gas with a concern of CO2 retention patient will be started on systemic steroids inhalational treatments. Tramadol and other medications that can cause encephalopathy will be discontinued. Patient is alert oriented 1. Patient is also on diuretics for heart failure, does have history of ischemic cardiomyopathy systolic dysfunction. Patient on this hospitalization is warranted completed presently receiving IV fluids off diuretics patient also has acute renal failure with the elevated creatinine to about 2 baseline appears to be around 1.2.e has an EF of around 35%. 02/05/2022 Patient's ABGs did not show any significant elevation in pCO2. Patient is still bit confused but appears to be bit better compared to yesterday. appears to have owners will cut down the dose of steroids, requested the nursing staff to ablate the patient always which helps with her confusion and delirium we'll [place] in a CT of the head without contrast to rule out any intracranial bleed possibility of which is low. Her serum creatinine continue to improve her wheezing improved. 02/06/2022 Patient is seen in follow-up this morning rolling around the bed, yelling and moaning and asking for "help". Patient is not eating nor taking any oral medications. Patient is saying "I don't want this, no, no, no" to treatment and help from the nursing staff at bedside. Ordered IV tylenol and seroquel. Recommend to hold narcotics and ASSISTANT STORE DIRECTOR agents due to mentation. Patient is continued on IV zosyn and urine culture is showing VRE with ID following. Kidney functions have worsened and nephrology consulted and being started on bicarb drip. Possible dialysis is being discussed and family is refusing as this was discussed prior and patient refused and told daughter she never wanted dialysis. Patient is pulling at lines and no IV access at this time and midline is reordered. Potassium is elevated at 6.7 and a dose of lokelma is ordered again for today. Did order insulin, dextrose, and calcium gluconate cocktail. Will follow up with am labs. Patient family at the bedside with lengthy discussion had about palliative vs. hospice and they had palliative previously. Requesting hospice and will place the consult for informational. 02/07/2022 Patient is seen this morning and continues to be confused although appears more calm. Kidney functions are improving and nephrology following and recommend to continue with bicarb drip and recommend repeat labs. ID following as well and urine showing VRE and being transitioned to daptomycin and repeat urine ordered. Patient is not eating and not really taking medications per RN. Encouraged oral intake. Afebrile and vitals are stable. Family is discussing hospice. Review of systems: Patient is completely confused PHYSICAL EXAMINATION: GENERAL: The patient is alert and oriented x1, asleep. confused. thin built and ill appearing HEENT: Pupils are round and equally reacting to light. EOMI. No scleral icterus. No conjunctival pallor. Normocephalic, atraumatic. No pharyngeal erythema. No thyromegaly. CARDIOVASCULAR: S1 and S2 present. No murmurs, rubs, or gallops. PULMONARY: Expiratory wheezing improved, diminished bilaterally ABDOMEN: Soft, nontender, nondistended, normoactive bowel sounds. No palpable organomegaly. MUSCULOSKELETAL: No joint swelling or deformity. EXTREMITIES: No cyanosis, clubbing, or pedal edema. multiple amputated toes with chronic wounds of the left foot NEUROLOGICAL: Gross neurological examination did not reveal any focal deficits. restless, anxious SKIN: No rashes. Assessment and plan: Syncope suspected secondary to hypotension Severe encephalopathy probably secondary to hospitalization related delirium. steroids have been discontinued. Seroquel on as-needed basis for delirium ordered. CT brain was negative for acute process COPD with acute exacerbation: Patient maintained on systemic steroids inhalational treatments Congestive heart failure chronic systolic dysfunction patient is not in acute exacerbation patient is volume depleted Chest pain most likely related to her COPD exacerbation acute urinary tract infection, present on admission with VRE hypertension Insulin-dependent diabetes mellitus Depression Chronic atrial fibrillation on Eliquis History of coronary artery disease, status post bypass surgery History of CVA/TIA rheumatoid arthritis peripheral vascular disease status post stent in the right leg Chronic kidney disease stage III probably diabetic nephropathy DVT prophylaxis: On eliquis No code Plan: Recommend to continue with current medications and as needed seroquel. Continue IV tylenol for pain. Avoid narcotics and efficiency miner blasting agents due to confusion and mentation. Kidney functions trending down while on bicarb drip and nephrology following. Conservative measures only, no dialysis per family. Urine came back as VRE and patient is on IV daptomycin now with ID following Multiple chronic left oot wounds noted that are currently dressed with kerlex and dry, continue local wound care Multiple family members at the bedside including the daughter who is power of workers compensation attorney and had multiple questions and concerns that were answered to the best of our ability. Requesting hospice consult for informational that was placed. Discussed at length about palliative vs. hospice and they refuse palliative as they had that from last admission and was reported that the palliative nurse never showed up. One sister out of state has questions and concerns ([place]) and called and spoke with her. Family would like to discuss over a day or 2 before making final decision. Daughter at bedside mentioned that when patients mentation was better, she was adamant about her code status and also mentioned on numerous occasions that she "was done with all of this and did not want to keep doing this". Patient continued to say "I don't want this" while in the room as RN was attempting to medicate and help with position changes. Recommend to monitor over the next day or two with follow up labs and continue with medications as prescribed and will discuss further with family about treatment plan. Given multiple complex medical issues, prognosis is guarded Recommend am labs. The impression and plan of care has been dictated by aLuren Castaneda, Nurse Practitioner as directed. Dr. René MD I have performed a history and examination and MDM of this patient, discussed the same with the dictator, and agree with the dictator's assessment and plan as written ,documented as a scribe. Based on total visit time, I have performed more than 50% of the visit. Objective - Vital Signs Vital signs: Vital Signs Temp 97.5 F L 02/07/22 04:00 Pulse 88 02/07/22 10:07 Resp 15 02/07/22 09:49 BP 167/83 02/07/22 09:49 Pulse Ox 94 L 02/07/22 09:49 FiO2 Intake & Output 02/06/22 02/07/22 02/07/22 18:59 06:59 18:59 Output Total 300 350 200 Balance -300 -350 -200 Output: Urine 300 350 200 Other: Voiding Method Indwelling Catheter Indwelling Catheter Indwelling Catheter # Bowel Movements 1 - Labs CBC & Chem 7: 02/06/22 07:34 02/07/22 10:33 Labs: Abnormal Lab Results - Last 24 Hours (Table) 02/06/22 02/06/22 02/06/22 Range/Units 11:34 14:56 16:29 Potassium 5.5 H (3.5-5.1) mmol/L POC Glucose (mg/dL) 223 H 217 H (70-110) mg/dL 02/06/22 02/07/22 Range/Units 20:05 06:11 Potassium (3.5-5.1) mmol/L POC Glucose (mg/dL) 205 H 139 H (70-110) mg/dL
[2022-02-08 06:09] LABS: Glucose,Whole Blood 190 mg/dL (70-110)
[2022-02-08] MEDS: DEXTROSE 5% IN WATER 1,000 ML with SODIUM BICARB (1 MEQ/ML) 150 ML IV SCH ×2 (06:14→12:10)
[2022-02-08] MEDS: INSULIN ASPART (NovoLOG) 100 UNIT/ML VIAL SQ SCH ×4 (06:16→20:56)
[2022-02-08] MEDS: INSULIN DETEMIR (LEVEMIR) 100 UNIT/ML SYR SQ SCH (06:16)
[2022-02-08] MEDS: BUDESONIDE 1 MG/2 ML NEBU INHALATION SCH ×2 (08:19→19:50)
[2022-02-08] MEDS: IPRATROPIUM-ALBUTEROL 3 ML NEB INHALATION SCH ×4 (08:19→19:50)
[2022-02-08] MEDS: SYMBICORT 160-4.5 MCG INHALER INHALATION SCH ×2 (08:19→19:50)
[2022-02-08] MEDS: FAMOTIDINE 20 MG/2 ML VIAL IV SCH (09:03)
[2022-02-08] MEDS: FERROUS SULFATE 325 MG TAB PO SCH (09:23)
[2022-02-08] MEDS: APIXABAN 2.5 MG TABLET PO SCH ×2 (09:23→20:56)
[2022-02-08] MEDS: DULoxetine HCL 60 MG CAPSULE.DR PO SCH (09:23)
[2022-02-08] MEDS: amLODIPine 5 MG TAB PO SCH (09:23)
--- NOTE | 2022-02-08 09:45 | P.PN ---
Subjective Patient is seen in follow-up for acute kidney injury. Morning labs pending. Resting in bed. Not a reliable historian. Blood pressure stable this morning. Has a Langston catheter. Nonoliguric. On bicarb drip. Vital signs are stable. General: Resting in bed. HEENT: Head exam is unremarkable. LUNGS: Breath sounds decreased. HEART: Rate and Rhythm are regular. ABDOMEN: Soft, no distention. EXTREMITITES: No edema. Objective - Vital Signs Vital signs: Vital Signs Temp 97.4 F L 02/08/22 04:00 Pulse 94 02/08/22 08:00 Resp 16 02/08/22 08:00 BP 142/79 02/08/22 08:00 Pulse Ox 94 L 02/08/22 08:00 FiO2 Intake & Output 02/07/22 02/08/22 02/08/22 18:59 06:59 18:59 Intake Total 0 Output Total 650 Balance -650 0 Intake: Oral 0 Output: Urine 650 Other: Voiding Method Indwelling Catheter Indwelling Catheter # Voids 1 # Bowel Movements 1 - Labs CBC & Chem 7: 02/06/22 07:34 02/07/22 10:33 Labs: Abnormal Lab Results - Last 24 Hours (Table) 02/07/22 02/07/22 02/07/22 Range/Units 10:33 11:44 16:10 Carbon Dioxide 18 L (22-30) mmol/L BUN 75 H (7-17) mg/dL Creatinine 2.52 H (0.52-1.04) mg/dL Glucose 128 H (74-99) mg/dL POC Glucose (mg/dL) 132 H (70-110) mg/dL Calcium 8.2 L (8.4-10.2) mg/dL Urine Protein 2+ H (Negative) Urine Ketones Trace H (Negative) Urine Blood Moderate H (Negative) Urine RBC 7 H (0-5) /hpf Amorphous Sediment Occasional H (None) /hpf Hyaline Casts 12 H (0-2) /lpf Urine Mucus Rare H (None) /hpf 02/07/22 02/07/22 02/08/22 Range/Units 16:49 19:54 06:08 Carbon Dioxide (22-30) mmol/L BUN (7-17) mg/dL Creatinine (0.52-1.04) mg/dL Glucose (74-99) mg/dL POC Glucose (mg/dL) 178 H 157 H 190 H (70-110) mg/dL Calcium (8.4-10.2) mg/dL Urine Protein (Negative) Urine Ketones (Negative) Urine Blood (Negative) Urine RBC (0-5) /hpf Amorphous Sediment (None) /hpf Hyaline Casts (0-2) /lpf Urine Mucus (None) /hpf Assessment and Plan Plan: Assessment: 1. Acute kidney injury secondary to ATN secondary to severe sepsis and hemodynamic instability. Creatinine 2.52 yesterday. No hydronephrosis noted on kidney ultrasound. 2. Chronic kidney disease stage IIIa. Baseline creatinine in the range of 1.3- 1.4 s likely secondary to diabetic kidney disease. UA fairly benign with trace protein. 3. VRE UTI on antibiotics. 4. Metabolic acidosis secondary to acute kidney injury and IV fluids. On bicarb drip. 5. Hypertension with chronic kidney disease. Stable. 6. Diabetes mellitus. 7. Hyperkalemia secondary to acute kidney injury and metabolic acidosis. Improved with medical management. 8. Chronic systolic CHF with ejection fraction of 20%. 9. Sinus bradycardia. Resolved. Seen by cardiology. Plan: Maintain bicarb drip. Maintain Langston catheter for strict I's and O's for now. Continue to monitor renal function and urine output. Follow-up morning labs. Case discussed with patient's daughter yesterday. Conservative measures only. No renal replacement therapy. Hospice being considered.
[2022-02-08] MEDS: COLLAGENASE 250 UNIT/GM OINTMENT 30 GM TUBE TOPICAL SCH (11:14)
[2022-02-08] MEDS: NON FORMULARY DRUG (Lumateperone Tosylate [Caplyta] 42 MG Capsule) PO SCH (11:14)
[2022-02-08 11:47] LABS: Glucose,Whole Blood 269 mg/dL (70-110)
[2022-02-08 12:29] LABS: Albumin 3.7 g/dL (3.5-5.0); C Reactive Protein 4.7 mg/dL (<1.0); Calcium 7.8 mg/dL (8.4-10.2); Total Bilirubin 2.3 mg/dL (0.2-1.3); Total Protein 6.9 g/dL (6.3-8.2)
[2022-02-08 12:44] LABS: Potassium 5.1 mmol/L (3.5-5.1)
[2022-02-08 16:42] LABS: Glucose,Whole Blood 185 mg/dL (70-110)
[2022-02-08] MEDS: SODIUM CHLORIDE 0.9% 1,000 ML IV SCH (17:16)
--- NOTE | 2022-02-08 18:40 | P.PN ---
Subjective Progress Note Date: 02/08/22 02/04/2022 Patient is admitted for syncopal episode which is believed to be secondary to hypotension patient was also bradycardic cardiology evaluated the patient patient doesn't have any heart block patient is also being COPD exacerbation. Patient is a significantly confused today patient is severely encephalopathic because of which I'm obtaining arterial blood gas with a concern of CO2 retention patient will be started on systemic steroids inhalational treatments. Tramadol and other medications that can cause encephalopathy will be discontinued. Patient is alert oriented 1. Patient is also on diuretics for heart failure, does have history of ischemic cardiomyopathy systolic dysfunction. Patient on this hospitalization is warranted completed presently receiving IV fluids off diuretics patient also has acute renal failure with the elevated creatinine to about 2 baseline appears to be around 1.2.e has an EF of around 35%. 02/05/2022 Patient's ABGs did not show any significant elevation in pCO2. Patient is still bit confused but appears to be bit better compared to yesterday. appears to have owners will cut down the dose of steroids, requested the nursing staff to ablate the patient always which helps with her confusion and delirium we'll [place] in a CT of the head without contrast to rule out any intracranial bleed possibility of which is low. Her serum creatinine continue to improve her wheezing improved. 02/06/2022 Patient is seen in follow-up this morning rolling around the bed, yelling and moaning and asking for "help". Patient is not eating nor taking any oral medications. Patient is saying "I don't want this, no, no, no" to treatment and help from the nursing staff at bedside. Ordered IV tylenol and seroquel. Recommend to hold narcotics and [employer] agents due to mentation. Patient is continued on IV zosyn and urine culture is showing VRE with ID following. Kidney functions have worsened and nephrology consulted and being started on bicarb drip. Possible dialysis is being discussed and family is refusing as this was discussed prior and patient refused and told daughter she never wanted dialysis. Patient is pulling at lines and no IV access at this time and midline is reordered. Potassium is elevated at 6.7 and a dose of lokelma is ordered again for today. Did order insulin, dextrose, and calcium gluconate cocktail. Will follow up with am labs. Patient family at the bedside with lengthy discussion had about palliative vs. hospice and they had palliative previously. Requesting hospice and will place the consult for informational. 02/07/2022 Patient is seen this morning and continues to be confused although appears more calm. Kidney functions are improving and nephrology following and recommend to continue with bicarb drip and recommend repeat labs. ID following as well and urine showing VRE and being transitioned to daptomycin and repeat urine ordered. Patient is not eating and not really taking medications per RN. Encouraged oral intake. Afebrile and vitals are stable. Family is discussing hospice. 02/08/2022 Patient seen today and is awake and alert sitting up in bed with multiple family members present. Patient is maintained on IV bicarb along with iv daptomycin and nephrology and ID following closely. Urine with VRE as well as RADHA and continues with barone catheter. Drinking and recommend speech consult to assess swallow eval as patient was most recently extremely confused and restless and refusing all foods over the last several day. Recommend strict aspiration precautions. Patient continues with confusion and is continuing to refuse dialysis and plans were for possible hospice house and family has met for informational. IGORA daughter provided paperwork and also met with hospice house nurse. With patients improvement in mentation, will recommend continuing with IV bicarb and hydration along with IV abx for the VRE and closely observing over the next few days for clinical improvement. Family is agreeable. Recommend repeat labs in am. Continue local wound care of the left foot. Review of systems: Patient is confused PHYSICAL EXAMINATION: GENERAL: The patient is alert and oriented x1-2, awake. confused. thin built and ill appearing HEENT: Pupils are round and equally reacting to light. EOMI. No scleral icterus. No conjunctival pallor. Normocephalic, atraumatic. No pharyngeal erythema. No thyromegaly. CARDIOVASCULAR: S1 and S2 present. No murmurs, rubs, or gallops. PULMONARY: Expiratory wheezing improved, diminished bilaterally ABDOMEN: Soft, nontender, nondistended, normoactive bowel sounds. No palpable organomegaly. MUSCULOSKELETAL: No joint swelling or deformity. EXTREMITIES: No cyanosis, clubbing, or pedal edema. multiple amputated toes with chronic wounds of the left foot NEUROLOGICAL: Gross neurological examination did not reveal any focal deficits. restless, anxious SKIN: No rashes. Assessment and plan: Syncope suspected secondary to hypotension Severe encephalopathy probably secondary to hospitalization related delirium. Possibly to UTI, improved from yesterday Seroquel on as-needed basis for delirium ordered. CT brain was negative for acute process COPD with acute exacerbation: Patient maintained on systemic steroids inhalational treatments Congestive heart failure chronic systolic dysfunction patient is not in acute exacerbation patient is volume depleted, started on IV fluids Chest pain most likely related to her COPD exacerbation acute urinary tract infection, present on admission with VRE hypertension Insulin-dependent diabetes mellitus Depression Chronic atrial fibrillation on Eliquis History of coronary artery disease, status post bypass surgery History of CVA/TIA rheumatoid arthritis peripheral vascular disease status post stent in the right leg Chronic kidney disease stage III probably diabetic nephropathy DVT prophylaxis: On eliquis No code Plan: Recommend to continue with current medications and as needed seroquel. Continue IV tylenol for pain. Avoid narcotics and timber skidder agents due to confusion and mentation. Mentation improved today somewhat as patient is awake and following commands and thirsty and drinking. Up with family. Kidney functions trending down while on bicarb drip and nephrology following. Conservative measures only, no dialysis per family. Bicarb drip discontinued and being started on normal saline. Urine came back as VRE and patient is on IV daptomycin now with ID following Multiple chronic left foot wounds noted that are currently dressed with kerlex and dry, continue local wound care Multiple family members at the bedside including the daughter who is power of securities attorney and had multiple questions and concerns that were answered to the best of our ability. Met with hospice house rep and currently evaluating for financial assessment. Discussion was had about improvement in mentation and recommending continuing to monitor over the next few days for improvement of clinic status and will continue gentle IV hydration and antibiotics and labs and will discuss further on Friday of treatment plan and discharge plan moving forward. Family is agreeable. Visiting nurses following. Given multiple complex medical issues, prognosis is guarded. Patient and family wish to continue with no code status and hospice on stand-by. Recommend am labs. Await speech for swallow eval and maintain strict aspiration precautions. The impression and plan of care has been dictated by Lauren Castaneda, Nurse Practitioner as directed. Dr. René MD I have performed a history and examination and MDM of this patient, discussed the same with the dictator, and agree with the dictator's assessment and plan as written ,documented as a scribe. Based on total visit time, I have performed more than 50% of the visit. Objective - Vital Signs Vital signs: Vital Signs Temp 97.4 F L 02/08/22 04:00 Pulse 87 02/08/22 15:38 Resp 15 02/08/22 15:38 BP 136/80 02/08/22 15:38 Pulse Ox 96 02/08/22 15:38 FiO2 Intake & Output 02/07/22 02/08/22 02/08/22 18:59 06:59 18:59 Intake Total 358 Output Total 650 500 Balance -650 -142 Intake: Oral 358 Output: Urine 650 500 Other: Voiding Method Indwelling Catheter Indwelling Catheter Indwelling Catheter # Voids 1 # Bowel Movements 1 1 - Labs CBC & Chem 7: 02/06/22 07:34 02/08/22 11:15 Labs: Abnormal Lab Results - Last 24 Hours (Table) 02/07/22 02/08/22 02/08/22 Range/Units 19:54 06:08 11:15 Carbon Dioxide 21 L (22-30) mmol/L BUN 67 H (7-17) mg/dL Creatinine 2.03 H (0.52-1.04) mg/dL Glucose 224 H (74-99) mg/dL POC Glucose (mg/dL) 157 H 190 H (70-110) mg/dL Calcium 7.8 L (8.4-10.2) mg/dL Total Bilirubin 2.3 H (0.2-1.3) mg/dL AST 603 H (14-36) U/L ALT 279 H (4-34) U/L Alkaline Phosphatase 153 H (38-126) U/L C-Reactive Protein 4.7 H (<1.0) mg/dL 02/08/22 02/08/22 Range/Units 11:45 16:40 Carbon Dioxide (22-30) mmol/L BUN (7-17) mg/dL Creatinine (0.52-1.04) mg/dL Glucose (74-99) mg/dL POC Glucose (mg/dL) 269 H 185 H (70-110) mg/dL Calcium (8.4-10.2) mg/dL Total Bilirubin (0.2-1.3) mg/dL AST (14-36) U/L ALT (4-34) U/L Alkaline Phosphatase (38-126) U/L C-Reactive Protein (<1.0) mg/dL
[2022-02-08 19:58] LABS: Glucose,Whole Blood 89 mg/dL (70-110)
[2022-02-08] MEDS: MONTELUKAST 10 MG TAB PO SCH (20:56)
[2022-02-08] MEDS: QUEtiapine 25 MG TAB PO SCH (20:56)
[2022-02-09 06:07] LABS: Glucose,Whole Blood 99 mg/dL (70-110)
[2022-02-09] MEDS: INSULIN DETEMIR (LEVEMIR) 100 UNIT/ML SYR SQ SCH (06:32)
[2022-02-09] MEDS: INSULIN ASPART (NovoLOG) 100 UNIT/ML VIAL SQ SCH ×4 (06:32→19:50)
[2022-02-09] MEDS: SODIUM CHLORIDE 0.9% 1,000 ML IV SCH ×2 (06:32→17:23)
[2022-02-09] MEDS: BUDESONIDE 1 MG/2 ML NEBU INHALATION SCH ×2 (08:18→19:50)
[2022-02-09] MEDS: IPRATROPIUM-ALBUTEROL 3 ML NEB INHALATION SCH ×4 (08:18→19:50)
[2022-02-09] MEDS: SYMBICORT 160-4.5 MCG INHALER INHALATION SCH ×2 (08:18→19:50)
--- NOTE | 2022-02-09 08:18 | US ---
EXAMINATION TYPE: US abdomen limited DATE OF EXAM: 02/09/2022 COMPARISON: CLINICAL HISTORY: elevated LFT. Abnormal labs. TECHNIQUE: Multiple sonographic images of the right upper quadrant are obtained. 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 Hepatomegaly. 2. Some focal wall thickening through the gallbladder measuring 0.5 cm. Normal less than 0.3 cm. Jacky elate for cholecystitis. 3. Right renal cyst
[2022-02-09] MEDS: COLLAGENASE 250 UNIT/GM OINTMENT 30 GM TUBE TOPICAL SCH (09:31)
[2022-02-09] MEDS: amLODIPine 5 MG TAB PO SCH (09:32)
[2022-02-09] MEDS: FERROUS SULFATE 325 MG TAB PO SCH (09:32)
[2022-02-09] MEDS: FAMOTIDINE 20 MG/2 ML VIAL IV SCH (09:32)
[2022-02-09] MEDS: APIXABAN 2.5 MG TABLET PO SCH ×2 (09:32→19:56)
[2022-02-09] MEDS: NON FORMULARY DRUG (Lumateperone Tosylate [Caplyta] 42 MG Capsule) PO SCH (09:32)
[2022-02-09] MEDS: DULoxetine HCL 60 MG CAPSULE.DR PO SCH (09:32)
--- NOTE | 2022-02-09 09:48 | P.PN ---
Subjective Progress Note Date: 02/08/22 Principal diagnosis: Urinary tract infection She is a 72-year-old female with a past medical history significant for recurrent urinary tract infection was brought into the ER for evaluation of bradycardia and some mental status changes there was concern for possible UTI. 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 On today's evaluation that is 02/08/2022, the patient remains to be afebrile, the patient remains to be pleasantly confused however slightly more responsive today for but the family at the bedside no vomiting diarrhea or any other changes reported by the nursing staff Objective - Vital Signs Vital signs: Vital Signs Temp 97.4 F L 02/08/22 04:00 Pulse 84 02/08/22 12:00 Resp 16 02/08/22 12:00 BP 159/83 02/08/22 12:00 Pulse Ox 95 02/08/22 12:00 FiO2 Intake & Output 02/07/22 02/08/22 02/08/22 18:59 06:59 18:59 Intake Total 118 Output Total 650 Balance -650 118 Intake: Oral 118 Output: Urine 650 Other: Voiding Method Indwelling Catheter Indwelling Catheter Indwelling Catheter # Voids 1 # Bowel Movements 1 1 - Exam GENERAL DESCRIPTION: An elderly female lying in bed in no distress RESPIRATORY SYSTEM: Unlabored breathing , decreased breath sounds at bases HEART: S1 S2 regular rate and rhythm , ABDOMEN: Soft , no tenderness EXTREMITIES: No edema feet - Labs CBC & Chem 7: 02/06/22 07:34 02/08/22 11:15 Labs: Abnormal Lab Results - Last 24 Hours (Table) 02/07/22 02/07/22 02/07/22 Range/Units 16:10 16:49 19:54 Carbon Dioxide (22-30) mmol/L BUN (7-17) mg/dL Creatinine (0.52-1.04) mg/dL Glucose (74-99) mg/dL POC Glucose (mg/dL) 178 H 157 H (70-110) mg/dL Calcium (8.4-10.2) mg/dL Total Bilirubin (0.2-1.3) mg/dL AST (14-36) U/L ALT (4-34) U/L Alkaline Phosphatase (38-126) U/L C-Reactive Protein (<1.0) mg/dL Urine Protein 2+ H (Negative) Urine Ketones Trace H (Negative) Urine Blood Moderate H (Negative) Urine RBC 7 H (0-5) /hpf Amorphous Sediment Occasional H (None) /hpf Hyaline Casts 12 H (0-2) /lpf Urine Mucus Rare H (None) /hpf 02/08/22 02/08/22 02/08/22 Range/Units 06:08 11:15 11:45 Carbon Dioxide 21 L (22-30) mmol/L BUN 67 H (7-17) mg/dL Creatinine 2.03 H (0.52-1.04) mg/dL Glucose 224 H (74-99) mg/dL POC Glucose (mg/dL) 190 H 269 H (70-110) mg/dL Calcium 7.8 L (8.4-10.2) mg/dL Total Bilirubin 2.3 H (0.2-1.3) mg/dL AST 603 H (14-36) U/L ALT 279 H (4-34) U/L Alkaline Phosphatase 153 H (38-126) U/L C-Reactive Protein 4.7 H (<1.0) mg/dL Urine Protein (Negative) Urine Ketones (Negative) Urine Blood (Negative) Urine RBC (0-5) /hpf Amorphous Sediment (None) /hpf Hyaline Casts (0-2) /lpf Urine Mucus (None) /hpf Assessment and Plan (1) Urinary tract infection Current Visit: No Status: Acute Code(s): N39.0 - URINARY TRACT INFECTION, SITE NOT SPECIFIED SNOMED Code(s): 39508465 Plan: 1patient with a admission to the hospital mental status changes this patient did have slightly dysuria recently has been on Bactrim DS with a urine pain in the hospital not significantly positive could be because of the antibiotic exposure because of the persistent symptoms possible component of cystitis not b ehaving as deep infection. 2left foot lateral border wound with no cellulitis, local wound care with the Santyl and keep the area off the pressure 3urine has been finalized with a VRE, patient is currently on daptomycin however the repeat UA is not significantly positive 4patient noticed to have significantly elevated liver enzymes. Check an ultrasound of the liver and gallbladder area Time with Patient: Less than 30
[2022-02-09 10:32] LABS: Appearance,Urine Clear (Clear); Bacteria,Urine Rare /hpf; Bilirubin,Urine Negative (Negative); Blood,Urine Moderate (Negative); Color,Urine Yellow; Glucose,Urine (UA) Negative (Negative); Ketones,Urine Negative (Negative); Leukocyte Esterase,Urine Large (Negative); Mucus,Urine Rare /hpf; Nitrite,Urine Negative (Negative); PH, Urine 6.5 (5.0-8.0); Protein,Urine 2+ (Negative); RBC,Urine 7 /hpf (0-5); Specific Gravity,Urine 1.016 (1.001-1.035); Squamous Epithelial Cell,Urine 1 /hpf (0-4); WBC,Urine 52 /hpf (0-5)
--- NOTE | 2022-02-09 10:35 | P.PN ---
Subjective Patient is seen in follow-up for acute kidney injury. Morning labs pending. Resting in bed. Not a reliable historian. Blood pressure stable this morning. Has a Langston catheter. Nonoliguric. Off of bicarb drip. Urine output at 1.3 L for 24 hours Serum creatinine improved to 2.0 from 2.5 the day before. Objective - Vital Signs Vital signs: Vital Signs Temp 98 F 02/09/22 09:30 Pulse 88 02/09/22 09:30 Resp 16 02/09/22 09:30 BP 151/71 02/09/22 09:30 Pulse Ox 90 L 02/09/22 09:30 FiO2 Intake & Output 02/08/22 02/09/22 02/09/22 18:59 06:59 18:59 Intake Total 538 1150 Output Total 500 850 Balance 38 300 Intake: Intake, IV Titration 900 Amount Sodium Chloride 0.9% 1, 900 000 ml @ 75 mls/hr IV . [id number] JAY Rx#:[id number] Oral 538 250 Output: Urine 500 850 Other: Voiding Method Indwelling Catheter Indwelling Catheter # Bowel Movements 1 2 - Exam Patient is sleeping but arousable No acute distress Examination of the heart S1 and S2 Examination of lungs decreased breath sounds at the bases Abdomen is soft nontender Examination of lower extremities shows no significant edema - Labs CBC & Chem 7: 02/06/22 07:34 02/08/22 11:15 Labs: Abnormal Lab Results - Last 24 Hours (Table) 02/08/22 02/08/22 02/08/22 Range/Units 11:15 11:15 11:45 Carbon Dioxide 21 L (22-30) mmol/L BUN 67 H (7-17) mg/dL Creatinine 2.03 H (0.52-1.04) mg/dL Glucose 224 H (74-99) mg/dL POC Glucose (mg/dL) 269 H (70-110) mg/dL Calcium 7.8 L (8.4-10.2) mg/dL Total Bilirubin 2.3 H (0.2-1.3) mg/dL AST 603 H (14-36) U/L ALT 279 H (4-34) U/L Alkaline Phosphatase 153 H (38-126) U/L C-Reactive Protein 4.7 H (<1.0) mg/dL Procalcitonin 0.50 H (0.02-0.09) ng/mL 02/08/22 Range/Units 16:40 Carbon Dioxide (22-30) mmol/L BUN (7-17) mg/dL Creatinine (0.52-1.04) mg/dL Glucose (74-99) mg/dL POC Glucose (mg/dL) 185 H (70-110) mg/dL Calcium (8.4-10.2) mg/dL Total Bilirubin (0.2-1.3) mg/dL AST (14-36) U/L ALT (4-34) U/L Alkaline Phosphatase (38-126) U/L C-Reactive Protein (<1.0) mg/dL Procalcitonin (0.02-0.09) ng/mL Assessment and Plan Assessment: 1. Acute kidney injury secondary to ATN secondary to severe sepsis and hemodynamic instability. Creatinine 2.52 yesterday. No hydronephrosis noted on kidney ultrasound. Renal function has improved. 2. Chronic kidney disease stage IIIa. Baseline creatinine in the range of 1.3- 1.4 s likely secondary to diabetic kidney disease. UA fairly benign with trace protein. 3. VRE UTI on antibiotics. 4. Metabolic acidosis secondary to acute kidney injury and IV fluids. Status post bicarb drip. 5. Hypertension with chronic kidney disease. Stable. 6. Diabetes mellitus. 7. Hyperkalemia secondary to acute kidney injury and metabolic acidosis. Improved with medical management. 8. Chronic systolic CHF with ejection fraction of 20%. 9. Sinus bradycardia. Resolved. Seen by cardiology. Plan: Follow-up on labs from today. Repeat labs in a.m.
--- NOTE | 2022-02-09 11:35 | P.PN ---
Subjective Progress Note Date: 02/09/22 02/04/2022 Patient is admitted for syncopal episode which is believed to be secondary to hypotension patient was also bradycardic cardiology evaluated the patient patient doesn't have any heart block patient is also being COPD exacerbation. Patient is a significantly confused today patient is severely encephalopathic because of which I'm obtaining arterial blood gas with a concern of CO2 retention patient will be started on systemic steroids inhalational treatments. Tramadol and other medications that can cause encephalopathy will be discontinued. Patient is alert oriented 1. Patient is also on diuretics for heart failure, does have history of ischemic cardiomyopathy systolic dysfunction. Patient on this hospitalization is warranted completed presently receiving IV fluids off diuretics patient also has acute renal failure with the elevated creatinine to about 2 baseline appears to be around 1.2.e has an EF of around 35%. 02/05/2022 Patient's ABGs did not show any significant elevation in pCO2. Patient is still bit confused but appears to be bit better compared to yesterday. appears to have owners will cut down the dose of steroids, requested the nursing staff to ablate the patient always which helps with her confusion and delirium we'll [place] in a CT of the head without contrast to rule out any intracranial bleed possibility of which is low. Her serum creatinine continue to improve her wheezing improved. 02/06/2022 Patient is seen in follow-up this morning rolling around the bed, yelling and moaning and asking for "help". Patient is not eating nor taking any oral medications. Patient is saying "I don't want this, no, no, no" to treatment and help from the nursing staff at bedside. Ordered IV tylenol and seroquel. Recommend to hold narcotics and DIRECTOR OF RESTAURANT agents due to mentation. Patient is continued on IV zosyn and urine culture is showing VRE with ID following. Kidney functions have worsened and nephrology consulted and being started on bicarb drip. Possible dialysis is being discussed and family is refusing as this was discussed prior and patient refused and told daughter she never wanted dialysis. Patient is pulling at lines and no IV access at this time and midline is reordered. Potassium is elevated at 6.7 and a dose of lokelma is ordered again for today. Did order insulin, dextrose, and calcium gluconate cocktail. Will follow up with am labs. Patient family at the bedside with lengthy discussion had about palliative vs. hospice and they had palliative previously. Requesting hospice and will place the consult for informational. 02/07/2022 Patient is seen this morning and continues to be confused although appears more calm. Kidney functions are improving and nephrology following and recommend to continue with bicarb drip and recommend repeat labs. ID following as well and urine showing VRE and being transitioned to daptomycin and repeat urine ordered. Patient is not eating and not really taking medications per RN. Encouraged oral intake. Afebrile and vitals are stable. Family is discussing hospice. 02/08/2022 Patient seen today and is awake and alert sitting up in bed with multiple family members present. Patient is maintained on IV bicarb along with iv daptomycin and nephrology and ID following closely. Urine with VRE as well as RADHA and continues with barone catheter. Drinking and recommend speech consult to assess swallow eval as patient was most recently extremely confused and restless and refusing all foods over the last several day. Recommend strict aspiration precautions. Patient continues with confusion and is continuing to refuse dialysis and plans were for possible hospice house and family has met for informational. POA daughter provided paperwork and also met with hospice house nurse. With patients improvement in mentation, will recommend continuing with IV bicarb and hydration along with IV abx for the VRE and closely observing over the next few days for clinical improvement. Family is agreeable. Recommend repeat labs in am. Continue local wound care of the left foot. 02/09/2022 Patient is monitored today on step down unit. She is resting in bed. She is confused at this time. Family is not at the bedside. She continues on IV daptomycin . She is currently off bicarb infusion and has been transitioned to normal saline running at 75 mls per hour. Urine is positive for VRE and she continues with indwelling barone catheter. Speech therapy evaluation has been completed with current recommendations for Dysphagia III chopped diet with thin liquids sitting upright 90 degress wtih small bites and sips, direct supervision 1:1. She is on strict aspiration precautions. Patient underwent abdominal ultrasound this morning showing hepatomegaly with some focal wall thickening through the gallbladder measuring 0.5 cm. Normal less than 0.3 cm. Correlate for cholecystitis. Procalcitonin level 0.50. Right renal cyst. Repeat urine today similar to prior findings. Labs from today are pending, monitoring trend in liver enzymes. She remains afebrile, blood pressure 151/71, 90% on room air. No abdominal tenderness on exam. Review of systems: Patient is confused PHYSICAL EXAMINATION: GENERAL: The patient is alert and oriented x1-2, awake. confused. thin built and ill appearing HEENT: Pupils are round and equally reacting to light. EOMI. No scleral icterus. No conjunctival pallor. Normocephalic, atraumatic. No pharyngeal erythema. No thyromegaly. CARDIOVASCULAR: S1 and S2 present. No murmurs, rubs, or gallops. PULMONARY: Expiratory wheezing improved, diminished bilaterally ABDOMEN: Soft, nontender, nondistended, normoactive bowel sounds. No palpable organomegaly. MUSCULOSKELETAL: No joint swelling or deformity. EXTREMITIES: No cyanosis, clubbing, or pedal edema. multiple amputated toes with chronic wounds of the left foot NEUROLOGICAL: Gross neurological examination did not reveal any focal deficits. restless, anxious SKIN: No rashes. Assessment and plan: Syncope suspected secondary to hypotension Severe encephalopathy probably secondary to hospitalization related delirium. Possibly to UTI, improved from yesterday Seroquel on as-needed basis for delirium ordered. CT brain was negative for acute process COPD with acute exacerbation: Patient maintained on inhalational treatments Congestive heart failure chronic systolic dysfunction patient is not in acute e xacerbation patient is volume depleted, started on IV fluids Elevated transaminases with possible acute cholecystitis on abdominal ultrasound. Chest pain most likely related to her COPD exacerbation acute urinary tract infection, present on admission with VRE hypertension Insulin-dependent diabetes mellitus Depression Chronic atrial fibrillation on Eliquis History of coronary artery disease, status post bypass surgery History of CVA/TIA rheumatoid arthritis peripheral vascular disease status post stent in the right leg Chronic kidney disease stage III probably diabetic nephropathy DVT prophylaxis: On eliquis No code Plan: Recommend to continue with current medications and as needed seroquel. Continue oral tylenol for pain. Avoid narcotics and nurse unit manager agents due to confusion and mentation. Mentation improved today somewhat as patient is awake and following commands and thirsty and drinking. Kidney functions trending down while on bicarb drip and nephrology following. Conservative measures only, no dialysis per family. Bicarb drip discontinued and being started on normal saline. Urine came back as VRE and patient is on IV daptomycin now with ID following Multiple chronic left foot wounds noted that are currently dressed with kerlex and dry, continue local wound care Family and daughter who is the POA have met with hospice house rep and currently evaluating for financial assessment. Discussion was had about improvement in mentation and recommending continuing to monitor over the next few days for improvement of clinic status and will continue gentle IV hydration and antibiot ics and labs and will discuss further on Friday of treatment plan and discharge plan moving forward. Family is agreeable. Visiting nurses following. Given multiple complex medical issues, prognosis is guarded. Patient and family wish to continue with no code status and hospice on stand-by. Current diet recommended for Chopped diet with thin liquids direct supervision 1:1 sitting upright 90* with direct supervision Labs are pending from today if further elevation in liver enzymes will consider surgical consultation for further evaluation of possible acute cholecystitis. patient is continued on IV antibiotics with ID following closely. Family will be updated. The impression and plan of care has been dictated by Adela Lanier, Nurse Practitioner as directed. Dr. René MD I have performed a history and physical examination and medical decision making of this patient, discussed the same with the dictator, and agree with the dictators assessment and plan as written, documented as a scribe. Based on total visit time, I have performed more than 50% of this visit. Objective - Vital Signs Vital signs: Vital Signs Temp 98 F 02/09/22 09:30 Pulse 88 02/09/22 09:30 Resp 16 02/09/22 09:30 BP 151/71 02/09/22 09:30 Pulse Ox 90 L 02/09/22 09:30 FiO2 Intake & Output 02/08/22 02/09/22 02/09/22 18:59 06:59 18:59 Intake Total 538 1150 Output Total 500 850 Balance 38 300 Intake: Intake, IV Titration 900 Amount Sodium Chloride 0.9% 1, 900 000 ml @ 75 mls/hr IV . [id number] [facility] Rx#:[id number] Oral 538 250 Output: Urine 500 850 Other: Voiding Method Indwelling Catheter Indwelling Catheter Indwelling Catheter # Bowel Movements 1 2 - Labs CBC & Chem 7: 02/06/22 07:34 02/08/22 11:15 Labs: Abnormal Lab Results - Last 24 Hours (Table) 02/08/22 02/08/22 02/08/22 Range/Units 11:15 11:15 11:45 Carbon Dioxide 21 L (22-30) mmol/L BUN 67 H (7-17) mg/dL Creatinine 2.03 H (0.52-1.04) mg/dL Glucose 224 H (74-99) mg/dL POC Glucose (mg/dL) 269 H (70-110) mg/dL Calcium 7.8 L (8.4-10.2) mg/dL Total Bilirubin 2.3 H (0.2-1.3) mg/dL AST 603 H (14-36) U/L ALT 279 H (4-34) U/L Alkaline Phosphatase 153 H (38-126) U/L C-Reactive Protein 4.7 H (<1.0) mg/dL Procalcitonin 0.50 H (0.02-0.09) ng/mL Urine Protein (Negative) Urine Blood (Negative) Ur Leukocyte Esterase (Negative) Urine RBC (0-5) /hpf Urine WBC (0-5) /hpf Urine Bacteria (None) /hpf Urine Mucus (None) /hpf 02/08/22 02/09/22 Range/Units 16:40 09:50 Carbon Dioxide (22-30) mmol/L BUN (7-17) mg/dL Creatinine (0.52-1.04) mg/dL Glucose (74-99) mg/dL POC Glucose (mg/dL) 185 H (70-110) mg/dL Calcium (8.4-10.2) mg/dL Total Bilirubin (0.2-1.3) mg/dL AST (14-36) U/L ALT (4-34) U/L Alkaline Phosphatase (38-126) U/L C-Reactive Protein (<1.0) mg/dL Procalcitonin (0.02-0.09) ng/mL Urine Protein 2+ H (Negative) Urine Blood Moderate H (Negative) Ur Leukocyte Esterase Large H (Negative) Urine RBC 7 H (0-5) /hpf Urine WBC 52 H (0-5) /hpf Urine Bacteria Rare H (None) /hpf Urine Mucus Rare H (None) /hpf Assessment and Plan Time with Patient: Less than 30
[2022-02-09 12:37] LABS: Anisocytosis Slight; Basophils % (A) 0 %; Eosinophils # (A) 0.1 k/uL (0-0.7); Eosinophils % (A) 1 %; HCT 36.3 % (34.0-46.0); HGB 11.1 gm/dL (11.4-16.0); Hypochromasia Marked; Lymphocytes # (A) 1.1 k/uL (1.0-4.8); Lymphocytes % (A) 17 %; MCH 29.5 pg (25.0-35.0); MCHC 30.5 g/dL (31.0-37.0); MCV 96.8 fL (80.0-100.0); Mean Platelet Volume 8.5; Monocytes # (A) 0.3 k/uL (0-1.0); Monocytes % (A) 4 %; Neutrophils # (A) 4.8 k/uL (1.3-7.7); Neutrophils % (A) 75 %; Platelet Count 166 k/uL (150-450); RBC 3.74 m/uL (3.80-5.40); RDW 16.5 % (11.5-15.5); WBC 6.3 k/uL (3.8-10.6)
[2022-02-09 12:56] LABS: Albumin 3.4 g/dL (3.5-5.0); Calcium 7.4 mg/dL (8.4-10.2); Total Bilirubin 1.9 mg/dL (0.2-1.3); Total Protein 6.3 g/dL (6.3-8.2)
[2022-02-09 16:57] LABS: Glucose,Whole Blood 206 mg/dL (70-110)
[2022-02-09] MEDS: PIPERACILLIN-TAZOBACTAM 3.375 GM in SODIUM CHLORIDE 0.9% 100 ML IVPB SCH ×2 (17:23→23:19)
[2022-02-09 19:46] LABS: Glucose,Whole Blood 130 mg/dL (70-110)
[2022-02-09] MEDS: QUEtiapine 25 MG TAB PO SCH (19:56)
[2022-02-09] MEDS: MONTELUKAST 10 MG TAB PO SCH (19:56)
[2022-02-10 06:08] LABS: Glucose,Whole Blood 73 mg/dL (70-110)
[2022-02-10] MEDS: INSULIN ASPART (NovoLOG) 100 UNIT/ML VIAL SQ SCH ×4 (06:12→20:21)
[2022-02-10] MEDS: INSULIN DETEMIR (LEVEMIR) 100 UNIT/ML SYR SQ SCH (06:16)
[2022-02-10 06:32] LABS: Albumin 3.1 g/dL (3.5-5.0); Calcium 7.3 mg/dL (8.4-10.2); Potassium 3.9 mmol/L (3.5-5.1); Total Bilirubin 1.7 mg/dL (0.2-1.3); Total Protein 5.9 g/dL (6.3-8.2)
[2022-02-10] MEDS: BUDESONIDE 1 MG/2 ML NEBU INHALATION SCH ×2 (07:59→20:37)
[2022-02-10] MEDS: IPRATROPIUM-ALBUTEROL 3 ML NEB INHALATION SCH ×4 (08:00→20:37)
[2022-02-10] MEDS: SYMBICORT 160-4.5 MCG INHALER INHALATION SCH ×2 (08:00→20:37)
[2022-02-10] MEDS: PIPERACILLIN-TAZOBACTAM 3.375 GM in SODIUM CHLORIDE 0.9% 100 ML IVPB SCH ×3 (09:17→23:09)
[2022-02-10] MEDS: DULoxetine HCL 60 MG CAPSULE.DR PO SCH (09:17)
[2022-02-10] MEDS: amLODIPine 5 MG TAB PO SCH (09:17)
[2022-02-10] MEDS: APIXABAN 2.5 MG TABLET PO SCH ×2 (09:17→20:21)
[2022-02-10] MEDS: COLLAGENASE 250 UNIT/GM OINTMENT 30 GM TUBE TOPICAL SCH (09:17)
[2022-02-10] MEDS: FAMOTIDINE 20 MG/2 ML VIAL IV SCH (09:17)
[2022-02-10] MEDS: FERROUS SULFATE 325 MG TAB PO SCH (09:17)
[2022-02-10] MEDS: NON FORMULARY DRUG (Lumateperone Tosylate [Caplyta] 42 MG Capsule) PO SCH (09:18)
--- NOTE | 2022-02-10 10:37 | P.PN ---
Subjective Patient is seen in follow-up for acute kidney injury. Patient is awake. She states she feels better. No chest pains, shortness of breath or nausea or vomiting. Urine output at 1.3 L for 24 hours Serum creatinine improved to 1.3 today from 2.5 at peak. Objective - Vital Signs Vital signs: Vital Signs Temp 98.1 F 02/10/22 09:15 Pulse 88 02/10/22 09:15 Resp 16 02/10/22 09:15 BP 134/72 02/10/22 09:15 Pulse Ox 92 L 02/10/22 09:15 FiO2 21 02/09/22 19:50 Intake & Output 02/09/22 02/10/22 02/10/22 18:59 06:59 18:59 Intake Total 30 Output Total 600 Balance -600 30 Intake: Oral 30 Output: Urine 600 Other: Voiding Method Indwelling Catheter Indwelling Catheter # Bowel Movements 1 - Exam Patient is awake. Alert oriented 3. No acute distress Examination of the heart S1 and S2 Examination of lungs decreased breath sounds at the bases Abdomen is soft nontender Examination of lower extremities shows no significant edema PAIRER exam grossly intact - Labs CBC & Chem 7: 02/09/22 11:21 02/10/22 05:47 Labs: Abnormal Lab Results - Last 24 Hours (Table) 02/09/22 02/09/22 02/09/22 Range/Units 09:50 11:21 11:21 RBC 3.74 L (3.80-5.40) m/uL Hgb 11.1 L (11.4-16.0) gm/dL MCHC 30.5 L (31.0-37.0) g/dL RDW 16.5 H (11.5-15.5) % BUN 46 H (7-17) mg/dL Creatinine 1.68 H (0.52-1.04) mg/dL POC Glucose (mg/dL) (70-110) mg/dL Calcium 7.4 L (8.4-10.2) mg/dL Total Bilirubin 1.9 H (0.2-1.3) mg/dL AST 276 H (14-36) U/L ALT 199 H (4-34) U/L Alkaline Phosphatase 144 H (38-126) U/L Total Protein (6.3-8.2) g/dL Albumin 3.4 L (3.5-5.0) g/dL Urine Protein 2+ H (Negative) Urine Blood Moderate H (Negative) Ur Leukocyte Esterase Large H (Negative) Urine RBC 7 H (0-5) /hpf Urine WBC 52 H (0-5) /hpf Urine Bacteria Rare H (None) /hpf Urine Mucus Rare H (None) /hpf 02/09/22 02/09/22 02/10/22 Range/Units 16:55 19:45 05:47 RBC (3.80-5.40) m/uL Hgb (11.4-16.0) gm/dL MCHC (31.0-37.0) g/dL RDW (11.5-15.5) % BUN 38 H (7-17) mg/dL Creatinine 1.36 H (0.52-1.04) mg/dL POC Glucose (mg/dL) 206 H 130 H (70-110) mg/dL Calcium 7.3 L (8.4-10.2) mg/dL Total Bilirubin 1.7 H (0.2-1.3) mg/dL AST 151 H (14-36) U/L ALT 148 H (4-34) U/L Alkaline Phosphatase 132 H (38-126) U/L Total Protein 5.9 L (6.3-8.2) g/dL Albumin 3.1 L (3.5-5.0) g/dL Urine Protein (Negative) Urine Blood (Negative) Ur Leukocyte Esterase (Negative) Urine RBC (0-5) /hpf Urine WBC (0-5) /hpf Urine Bacteria (None) /hpf Urine Mucus (None) /hpf Microbiology - Last 24 Hours (Table) 02/09/22 09:50 Urine Culture - Preliminary Urine,Voided Assessment and Plan Assessment: 1. Acute kidney injury secondary to ATN secondary to severe sepsis and hemodynamic instability. Creatinine 1.3 today. No hydronephrosis noted on kidney ultrasound. Renal function has improved. 2. Chronic kidney disease stage IIIa. Baseline creatinine in the range of 1.3- 1.4 s likely secondary to diabetic kidney disease. UA fairly benign with trace protein. 3. VRE UTI on antibiotics. 4. Metabolic acidosis secondary to acute kidney injury and IV fluids. Status post bicarb drip. 5. Hypertension with chronic kidney disease. Stable. 6. Diabetes mellitus. 7. Hyperkalemia secondary to acute kidney injury and metabolic acidosis. Improved with medical management. 8. Chronic systolic CHF with ejection fraction of 20%. 9. Sinus bradycardia. Resolved. Seen by cardiology. Plan: Decrease IV fluids and continue to encourage increased oral intake.
[2022-02-10 11:33] LABS: Glucose,Whole Blood 122 mg/dL (70-110)
--- NOTE | 2022-02-10 12:05 | P.PN ---
Subjective Progress Note Date: 02/10/22 02/04/2022 Patient is admitted for syncopal episode which is believed to be secondary to hypotension patient was also bradycardic cardiology evaluated the patient patient doesn't have any heart block patient is also being COPD exacerbation. Patient is a significantly confused today patient is severely encephalopathic because of which I'm obtaining arterial blood gas with a concern of CO2 retention patient will be started on systemic steroids inhalational treatments. Tramadol and other medications that can cause encephalopathy will be discontinued. Patient is alert oriented 1. Patient is also on diuretics for heart failure, does have history of ischemic cardiomyopathy systolic dysfunction. Patient on this hospitalization is warranted completed presently receiving IV fluids off diuretics patient also has acute renal failure with the elevated creatinine to about 2 baseline appears to be around 1.2.e has an EF of around 35%. 02/05/2022 Patient's ABGs did not show any significant elevation in pCO2. Patient is still bit confused but appears to be bit better compared to yesterday. appears to have owners will cut down the dose of steroids, requested the nursing staff to ablate the patient always which helps with her confusion and delirium we'll [place] in a CT of the head without contrast to rule out any intracranial bleed possibility of which is low. Her serum creatinine continue to improve her wheezing improved. 02/06/2022 Patient is seen in follow-up this morning rolling around the bed, yelling and moaning and asking for "help". Patient is not eating nor taking any oral medications. Patient is saying "I don't want this, no, no, no" to treatment and help from the nursing staff at bedside. Ordered IV tylenol and seroquel. Recommend to hold narcotics and POLICE ACADEMY PROGRAM COORDINATOR agents due to mentation. Patient is continued on IV zosyn and urine culture is showing VRE with ID following. Kidney functions have worsened and nephrology consulted and being started on bicarb drip. Possible dialysis is being discussed and family is refusing as this was discussed prior and patient refused and told daughter she never wanted dialysis. Patient is pulling at lines and no IV access at this time and midline is reordered. Potassium is elevated at 6.7 and a dose of lokelma is ordered again for today. Did order insulin, dextrose, and calcium gluconate cocktail. Will follow up with am labs. Patient family at the bedside with lengthy discussion had about palliative vs. hospice and they had palliative previously. Requesting hospice and will place the consult for informational. 02/07/2022 Patient is seen this morning and continues to be confused although appears more calm. Kidney functions are improving and nephrology following and recommend to continue with bicarb drip and recommend repeat labs. ID following as well and urine showing VRE and being transitioned to daptomycin and repeat urine ordered. Patient is not eating and not really taking medications per RN. Encouraged oral intake. Afebrile and vitals are stable. Family is discussing hospice. 02/08/2022 Patient seen today and is awake and alert sitting up in bed with multiple family members present. Patient is maintained on IV bicarb along with iv daptomycin and nephrology and ID following closely. Urine with VRE as well as RADHA and continues with barone catheter. Drinking and recommend speech consult to assess swallow eval as patient was most recently extremely confused and restless and refusing all foods over the last several day. Recommend strict aspiration precautions. Patient continues with confusion and is continuing to refuse dialysis and plans were for possible hospice house and family has met for informational. POA daughter provided paperwork and also met with hospice house nurse. With patients improvement in mentation, will recommend continuing with IV bicarb and hydration along with IV abx for the VRE and closely observing over the next few days for clinical improvement. Family is agreeable. Recommend repeat labs in am. Continue local wound care of the left foot. 02/09/2022 Patient is monitored today on step down unit. She is resting in bed. She is confused at this time. Family is not at the bedside. She continues on IV daptomycin . She is currently off bicarb infusion and has been transitioned to normal saline running at 75 mls per hour. Urine is positive for VRE and she continues with indwelling barone catheter. Speech therapy evaluation has been completed with current recommendations for Dysphagia III chopped diet with thin liquids sitting upright 90 degress wtih small bites and sips, direct supervision 1:1. She is on strict aspiration precautions. Patient underwent abdominal ultrasound this morning showing hepatomegaly with some focal wall thickening through the gallbladder measuring 0.5 cm. Normal less than 0.3 cm. Correlate for cholecystitis. Procalcitonin level 0.50. Right renal cyst. Repeat urine today similar to prior findings. Labs from today are pending, monitoring trend in liver enzymes. She remains afebrile, blood pressure 151/71, 90% on room air. No abdominal tenderness on exam. 02/10/2022 Patient today is more alert and oriented. She does report some mild right lower quadrant abdominal pain about a 2 to 3/10. Reports some nausea, but no vomiting or diarrhea. She is eating about 25% of meals. Infectious disease has added IV zosyn and she also continues on IV daptomycin. Labs today showing BUN of 38, creatinine of 1.36 and liver enzymes are slightly improved today, AST 151, ALT 148, alk phos 132. Family at this time and patient do not wish to pursue surgical intervention regarding gallbladder. Will monitor improvement in liver function on antibiotics and make further recommendations. She is currently afebrile, heart rate 88, blood pressure 134/72, 92% room air. No acute events overnight. Review of Systems Constitutional: Denied any fatigue denied any fever. Cardio vascular: denied any chest pain, palpitations Gastrointestinal: denied any vomiting, diarrhea has some mild abdominal pain. Pulmonary: Denied any shortness of breath cough Neurologic denied any new focal deficits All inpatient medications were reviewed and appropriate changes in these medications as dictated in the interval history and assessment and plan. PHYSICAL EXAMINATION: GENERAL: The patient is alert and oriented x2-3, awake. Less confused. HEENT: Pupils are round and equally reacting to light. EOMI. No scleral icterus. No conjunctival pallor. Normocephalic, atraumatic. No pharyngeal erythema. No thyromegaly. CARDIOVASCULAR: S1 and S2 present. No murmurs, rubs, or gallops. PULMONARY: Expiratory wheezing improved, diminished bilaterally ABDOMEN: Soft, nontender, nondistended, normoactive bowel sounds. No palpable organomegaly. MUSCULOSKELETAL: No joint swelling or deformity. EXTREMITIES: No cyanosis, clubbing, or pedal edema. multiple amputated toes with chronic wounds of the left foot NEUROLOGICAL: Gross neurological examination did not reveal any focal deficits. restless, anxious SKIN: No rashes. Assessment and plan: Syncope suspected secondary to hypotension, improved Severe encephalopathy probably secondary to hospitalization related delirium. Possibly to UTI, improved from yesterday Seroquel on as-needed basis for delirium ordered. CT brain was negative for acute process COPD with acute exacerbation: Patient maintained on inhalational treatments Congestive heart failure chronic systolic dysfunction patient is not in acute exacerbation patient is volume depleted, started on IV fluids Elevated transaminases with possible acute cholecystitis on abdominal ultrasound. Family/patient do not want surgical intervention at this time, IV zosyn has been added and monitoring liver enzymes. Chest pain most likely related to her COPD exacerbation acute urinary tract infection, present on admission with VRE hypertension Insulin-dependent diabetes mellitus Depression Chronic atrial fibrillation on Eliquis History of coronary artery disease, status post bypass surgery History of CVA/TIA rheumatoid arthritis peripheral vascular disease status post stent in the right leg Chronic kidney disease stage III probably diabetic nephropathy DVT prophylaxis: On eliquis No code Plan: Recommend to continue with current medications and as needed seroquel. Continue oral tylenol for pain. Avoid narcotics and vice president precision market insights agents due to confusion and mentation. Patient is alert x 2 to 3 and mentation has continued to improve at this time. She is up talkative and appetite has increased somewhat. Kidney function continues to improve, has been taken off bicarb gtt and continues on normal saline at 50 mls per hour. Urine came back as VRE and patient is on IV daptomycin now with ID following Multiple chronic left foot wounds noted that are currently dressed with kerlex and dry, continue local wound care Family and daughter who is the POA have met with hospice house rep and currently evaluating for financial assessment. Discussion was had about improvement in mentation and recommending continuing to monitor over the next few days for improvement of clinic status and will continue gentle IV hydration and antibiotics and labs and will discuss further on Friday of treatment plan and discharge plan moving forward. Family is agreeable. Visiting nurses following. Given multiple complex medical issues, prognosis is guarded. Patient and family wish to continue with no code status and hospice on stand-by. Current diet recommended for Chopped diet with thin liquids direct supervision 1:1 sitting upright 90* with direct supervision There is evidence for acute cholecystitis found on imaging and liver enzymes have slightly improved with the addition of IV zosyn. Family and patient are not wanting surgical intervention would like to monitor for improvement while on IV antibiotics. Plan remains for hospice on discharge friday or friday. The impression and plan of care has been dictated by Adela Lanier Nurse Practitioner as directed. Dr. René MD I have performed a history and physical examination and medical decision making of this patient, discussed the same with the dictator, and agree with the dictators assessment and plan as written, documented as a scribe. Based on total visit time, I have performed more than 50% of this visit. Objective - Vital Signs Vital signs: Vital Signs Temp 98.1 F 02/10/22 09:15 Pulse 88 02/10/22 09:15 Resp 16 02/10/22 09:15 BP 134/72 02/10/22 09:15 Pulse Ox 92 L 02/10/22 09:15 FiO2 21 02/09/22 19:50 Intake & Output 02/09/22 02/10/22 02/10/22 18:59 06:59 18:59 Intake Total 30 Output Total 600 Balance -600 30 Intake: Oral 30 Output: Urine 600 Other: Voiding Method Indwelling Catheter Indwelling Catheter Indwelling Catheter # Bowel Movements 1 - Labs CBC & Chem 7: 02/09/22 11:21 02/10/22 05:47 Labs: Abnormal Lab Results - Last 24 Hours (Table) 02/09/22 02/09/22 02/09/22 Range/Units 11:21 11:21 16:55 RBC 3.74 L (3.80-5.40) m/uL Hgb 11.1 L (11.4-16.0) gm/dL MCHC 30.5 L (31.0-37.0) g/dL RDW 16.5 H (11.5-15.5) % BUN 46 H (7-17) mg/dL Creatinine 1.68 H (0.52-1.04) mg/dL POC Glucose (mg/dL) 206 H (70-110) mg/dL Calcium 7.4 L (8.4-10.2) mg/dL Total Bilirubin 1.9 H (0.2-1.3) mg/dL AST 276 H (14-36) U/L ALT 199 H (4-34) U/L Alkaline Phosphatase 144 H (38-126) U/L Total Protein (6.3-8.2) g/dL Albumin 3.4 L (3.5-5.0) g/dL 02/09/22 02/10/22 02/10/22 Range/Units 19:45 05:47 11:31 RBC (3.80-5.40) m/uL Hgb (11.4-16.0) gm/dL MCHC (31.0-37.0) g/dL RDW (11.5-15.5) % BUN 38 H (7-17) mg/dL Creatinine 1.36 H (0.52-1.04) mg/dL POC Glucose (mg/dL) 130 H 122 H (70-110) mg/dL Calcium 7.3 L (8.4-10.2) mg/dL Total Bilirubin 1.7 H (0.2-1.3) mg/dL AST 151 H (14-36) U/L ALT 148 H (4-34) U/L Alkaline Phosphatase 132 H (38-126) U/L Total Protein 5.9 L (6.3-8.2) g/dL Albumin 3.1 L (3.5-5.0) g/dL Microbiology - Last 24 Hours (Table) 02/09/22 09:50 Urine Culture - Preliminary Urine,Voided Assessment and Plan Time with Patient: Less than 30
[2022-02-10 16:20] LABS: Glucose,Whole Blood 276 mg/dL (70-110)
[2022-02-10] MEDS: SODIUM CHLORIDE 0.9% 1,000 ML IV SCH (17:47)
[2022-02-10 20:16] LABS: Glucose,Whole Blood 156 mg/dL (70-110)
[2022-02-10] MEDS: QUEtiapine 25 MG TAB PO SCH (20:21)
[2022-02-10] MEDS: MONTELUKAST 10 MG TAB PO SCH (20:21)
[2022-02-11] MEDS: SODIUM CHLORIDE 0.9% 1,000 ML IV SCH (05:11)
[2022-02-11 06:15] LABS: Glucose,Whole Blood 76 mg/dL (70-110)
[2022-02-11] MEDS: INSULIN ASPART (NovoLOG) 100 UNIT/ML VIAL SQ SCH ×4 (06:23→21:59)
[2022-02-11] MEDS: INSULIN DETEMIR (LEVEMIR) 100 UNIT/ML SYR SQ SCH (06:27)
[2022-02-11 06:42] LABS: Albumin 3.1 g/dL (3.5-5.0); Calcium 6.9 mg/dL (8.4-10.2); Potassium 3.9 mmol/L (3.5-5.1); Total Bilirubin 1.6 mg/dL (0.2-1.3); Total Protein 5.8 g/dL (6.3-8.2)
[2022-02-11] MEDS: BUDESONIDE 1 MG/2 ML NEBU INHALATION SCH ×2 (07:51→20:10)
[2022-02-11] MEDS: IPRATROPIUM-ALBUTEROL 3 ML NEB INHALATION SCH ×4 (07:51→20:10)
[2022-02-11] MEDS: SYMBICORT 160-4.5 MCG INHALER INHALATION SCH ×2 (07:51→20:10)
[2022-02-11] MEDS: PIPERACILLIN-TAZOBACTAM 3.375 GM in SODIUM CHLORIDE 0.9% 100 ML IVPB SCH ×3 (08:38→23:48)
[2022-02-11] MEDS: amLODIPine 5 MG TAB PO SCH (08:39)
[2022-02-11] MEDS: DULoxetine HCL 60 MG CAPSULE.DR PO SCH (08:39)
[2022-02-11] MEDS: FAMOTIDINE 20 MG/2 ML VIAL IV SCH (08:39)
[2022-02-11] MEDS: NON FORMULARY DRUG (Lumateperone Tosylate [Caplyta] 42 MG Capsule) PO SCH (08:39)
[2022-02-11] MEDS: APIXABAN 2.5 MG TABLET PO SCH ×2 (08:39→20:19)
[2022-02-11] MEDS: FERROUS SULFATE 325 MG TAB PO SCH (08:39)
[2022-02-11] MEDS: COLLAGENASE 250 UNIT/GM OINTMENT 30 GM TUBE TOPICAL SCH (08:39)
[2022-02-11 08:57] LABS: Glucose,Whole Blood 102 mg/dL (70-110)
--- NOTE | 2022-02-11 09:32 | P.PN ---
Subjective Patient is seen in follow-up for acute kidney injury. Patient is awake. She states she feels better. No chest pains, shortness of breath or nausea or vomiting. Urine output at 900 ML for 24 hours Serum creatinine improved to 1.3 today from 2.5 at peak. Objective - Vital Signs Vital signs: Vital Signs Temp 98.1 F 02/11/22 08:00 Pulse 73 02/11/22 08:00 Resp 16 02/11/22 08:00 BP 140/73 02/11/22 08:00 Pulse Ox 93 L 02/11/22 08:00 FiO2 21 02/09/22 19:50 Intake & Output 02/10/22 02/11/22 02/11/22 18:59 06:59 18:59 Intake Total 270 118 Output Total 600 300 Balance -330 -300 118 Intake: Oral 270 118 Output: Urine 600 300 Other: Voiding Method Indwelling Catheter Indwelling Catheter Indwelling Catheter - Exam Patient is awake. Alert oriented 3. No acute distress Examination of the heart S1 and S2 Examination of lungs decreased breath sounds at the bases Abdomen is soft nontender Examination of lower extremities shows no significant edema CRAWLER DRAGLINE OPERATOR exam grossly intact - Labs CBC & Chem 7: 02/09/22 11:21 02/11/22 05:24 Labs: Abnormal Lab Results - Last 24 Hours (Table) 02/10/22 02/10/22 02/10/22 Range/Units 11:31 16:19 20:15 BUN (7-17) mg/dL Creatinine (0.52-1.04) mg/dL POC Glucose (mg/dL) 122 H 276 H 156 H (70-110) mg/dL Calcium (8.4-10.2) mg/dL Total Bilirubin (0.2-1.3) mg/dL AST (14-36) U/L ALT (4-34) U/L Alkaline Phosphatase (38-126) U/L Total Protein (6.3-8.2) g/dL Albumin (3.5-5.0) g/dL 02/11/22 Range/Units 05:24 BUN 28 H (7-17) mg/dL Creatinine 1.26 H (0.52-1.04) mg/dL POC Glucose (mg/dL) (70-110) mg/dL Calcium 6.9 L (8.4-10.2) mg/dL Total Bilirubin 1.6 H (0.2-1.3) mg/dL AST 88 H (14-36) U/L ALT 114 H (4-34) U/L Alkaline Phosphatase 129 H (38-126) U/L Total Protein 5.8 L (6.3-8.2) g/dL Albumin 3.1 L (3.5-5.0) g/dL Microbiology - Last 24 Hours (Table) 02/09/22 09:50 Urine Culture - Final Urine,Voided Assessment and Plan Assessment: 1. Acute kidney injury secondary to ATN secondary to severe sepsis and hemodynamic instability. Creatinine 1.3 today. No hydronephrosis noted on kidney ultrasound. Renal function has improved. 2. Chronic kidney disease stage IIIa. Baseline creatinine in the range of 1.3- 1.4 s likely secondary to diabetic kidney disease. UA fairly benign with trace protein. 3. VRE UTI on antibiotics. 4. Metabolic acidosis secondary to acute kidney injury and IV fluids. Status post bicarb drip. 5. Hypertension with chronic kidney disease. Stable. 6. Diabetes mellitus. 7. Hyperkalemia secondary to acute kidney injury and metabolic acidosis. Improved with medical management. 8. Chronic systolic CHF with ejection fraction of 20%. 9. Sinus bradycardia. Resolved. Seen by cardiology. Plan: Continue to encourage increased oral intake DC IV fluids
[2022-02-11 11:23] LABS: Glucose,Whole Blood 184 mg/dL (70-110)
--- NOTE | 2022-02-11 12:04 | P.GSCN ---
History of Present Illness Consult date: 02/11/22 History of present illness: CHIEF COMPLAINT: Syncope Reason for consult: Cholecystitis HISTORY OF PRESENT ILLNESS: This is a 72-year-old female presented to the hospital due to a syncopal episode secondary to hypotension. Patient is also had worsening renal function and evidence of a UTI. Patient has had elevated liver enzymes. Abdominal ultrasound had shown wall thickening of the gallbladder and to correlate for cholecystitis. Therefore surgical service was consulted. However, patient is planning possibly home with hospice today or tomorrow. Patient reports that she is tolerating diet. She denies any abdominal pain. She denies any nausea or vomiting. She is also on anticoagulation for A. fib. PAST MEDICAL HISTORY: Asthma, Coronary Artery Disease (CAD), CKD, Heart Failure, COPD, CVA/TIA, Diabetes Mellitus, Hyperlipidemia, Hypertension, Pneumonia, Rheumatoid Arthritis (RA) PAST SURGICAL HISTORY: CABG, appendectomy, tubal ligation MEDICATIONS: See below ALLERGIES: See below SOCIAL HISTORY: No illicit drug use. REVIEW OF SYSTEMS: CONSTITUTIONAL: Denies fever or chills. HEENT: Denies blurred vision, vision changes, or eye pain. Denies hemoptysis CARDIOVASCULAR: Denies chest pain or pressure. RESPIRATORY: No shortness of breath. GASTROINTESTINAL: See HPI for pertinent findings HEMATOLOGIC: Denies bleeding disorders. GENITOURINARY: Denies any blood in urine or increased urinary frequency. SKIN: Denies pruitis. Denies rash. PHYSICAL EXAM: VITAL SIGNS: Reviewed GENERAL: no acute distress. ABDOMEN: Soft. Nondistended. Nontender. no RUQ tenderness NEUROLOGIC: Alert and oriented. Cranial nerves II through XII grossly intact. LABORATORY DATA: WBC 6.3 Hgb 11.1 platelets 166 Since 142 potassium 3.9 creatinine 1.26 Total bilirubin 2.3 down to 1.6 AST 603 trending down to 88 ALT 279 down to 114 alk phos 153 down to 129 IMAGING: Abdominal ultrasound hepatomegaly. Some focal wall thickening to the gallbladder measuring 0.5 cm correlate for cholecystitis. Right renal cyst. Echo EF 20% with severe global hypokinesis ASSESSMENT: 1. Chronic cholecystitis. Wall thickening of the gallbladder on ultrasound with elevated liver enzymes PLAN: -No surgical intervention planned -Patient requesting no surgical intervention on gallbladder -Continue supportive care -Recommend low-fat diet Physician Operator Supply note has been reviewed by physician. Signing provider agrees with the documented findings, assessment, and plan of care. Past Medical History Past Medical History: Asthma, Coronary Artery Disease (CAD), Heart Failure, COPD, CVA/TIA, Diabetes Mellitus, Hyperlipidemia, Hypertension, Pneumonia, Rheumatoid Arthritis (RA) Additional Past Medical History / Comment(s): left GREAT TOE WOUND, with current dressing, partial amputation on 06/28/20. going to hyperbaric chamber 5 days a week, PICC line right arm Last Myocardial Infarction Date:: 2014 History of Any Multi-Drug Resistant Organisms: VRE Year Discovered:: 02/02/22 MDRO Source:: Urine Past Surgical History: Adenoidectomy, Appendectomy, Coronary Bypass/CABG, Heart Catheterization, Tonsillectomy, Tubal Ligation Additional Past Surgical History / Comment(s): Open heart on April 13 2015, cabg X4, bilateral carotid endarterectomies,. Right great toe amputation 2014. stent in right leg above knee, elke cataracts. left toe ambutation, 06/18/20 Past Anesthesia/Blood Transfusion Reactions: Previous Problems w/ Anesthesia Additional Past Anesthesia/Blood Transfusion Reaction / Comm: diff breathing afterwards Past Psychological History: No Psychological Hx Reported Additional Psychological History / Comment(s): current depression r/t passing away a week ago Smoking Status: Never smoker Past Alcohol Use History: None Reported Additional Past Alcohol Use History / Comment(s): STARTED SMOKING AT AGE 17, SMOKED 1 OR MORE PPD, QUIT 1982frompoor in Hospital in October 2013. 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 She is currently living at home with daughter and sister Past Drug Use History: None Reported - Past Family History Father Family Medical History: Coronary Artery Disease (CAD), CVA/TIA, Diabetes Mellitus Mother Family Medical History: Myocardial Infarction ([place]) Additional Family Medical History / Comment(s): "spot on the lung" Medications and Allergies Home Medications Medication Instructions Recorded Confirmed Type Montelukast Sodium [Singulair] 10 mg PO HS 07/15/20 02/01/22 History DULoxetine HCL [Cymbalta] 60 mg PO DAILY 08/29/20 02/01/22 History Insulin Glargine,Hum.rec.anlog 8 unit SQ DAILY 05/16/21 02/01/22 History [Lantus Solostar Pen] Furosemide [Lasix] 20 mg PO Q48H 08/08/21 02/01/22 History Apixaban [Eliquis] 2.5 mg PO BID 11/01/21 02/01/22 History Lumateperone Tosylate [Caplyta] 42 mg PO DAILY 11/01/21 02/01/22 History Metoprolol Tartrate [Lopressor] 25 mg PO HS 11/01/21 02/01/22 History Ascorbic Acid [Vitamin C] 1,000 mg PO DAILY 02/01/22 02/01/22 History Cholecalciferol [Vitamin D3 (25 25 mcg PO DAILY 02/01/22 02/01/22 History Mcg = 1000 Iu)] Ferrous Sulfate [Feosol] 325 mg PO DAILY 02/01/22 02/01/22 History Insulin Aspart [NovoLOG Flexpen] See Protocol SQ AC-TID 02/01/22 02/01/22 History Sulfamethox-Tmp 800-160Mg [Bactrim 1 tab PO BID 02/01/22 02/01/22 History DS 800-160 mg] Zinc Gluconate [Zinc] 50 mg PO DAILY 02/01/22 02/01/22 History traMADol HCL 50 mg PO BID PRN 02/01/22 02/01/22 History Allergies Allergy/AdvReac Type Severity Reaction Status Date / Time nickel Allergy Rash/Hives Verified 02/01/22 15:55 levofloxacin [From Levaquin] AdvReac Confusion Verified 02/01/22 15:55 Surgical - Exam Vital Signs Pulse Resp BP Pulse Ox 44 L 18 92/41 95 02/01/22 15:52 02/01/22 15:52 02/01/22 15:52 02/01/22 15:52 Results - Labs 02/09/22 11:21 02/11/22 05:24 Abnormal Lab Results - Last 24 Hours (Table) 02/10/22 02/10/22 02/10/22 Range/Units 11:31 16:19 20:15 BUN (7-17) mg/dL Creatinine (0.52-1.04) mg/dL POC Glucose (mg/dL) 122 H 276 H 156 H (70-110) mg/dL Calcium (8.4-10.2) mg/dL Total Bilirubin (0.2-1.3) mg/dL AST (14-36) U/L ALT (4-34) U/L Alkaline Phosphatase (38-126) U/L Total Protein (6.3-8.2) g/dL Albumin (3.5-5.0) g/dL 02/11/22 Range/Units 05:24 BUN 28 H (7-17) mg/dL Creatinine 1.26 H (0.52-1.04) mg/dL POC Glucose (mg/dL) (70-110) mg/dL Calcium 6.9 L (8.4-10.2) mg/dL Total Bilirubin 1.6 H (0.2-1.3) mg/dL AST 88 H (14-36) U/L ALT 114 H (4-34) U/L Alkaline Phosphatase 129 H (38-126) U/L Total Protein 5.8 L (6.3-8.2) g/dL Albumin 3.1 L (3.5-5.0) g/dL Microbiology - Last 24 Hours (Table) 02/09/22 09:50 Urine Culture - Final Urine,Voided Diabetes panel 02/11/22 Range/Units 05:24 Sodium 142 (137-145) mmol/L Potassium 3.9 (3.5-5.1) mmol/L Chloride 107 (98-107) mmol/L Carbon Dioxide 26 (22-30) mmol/L BUN 28 H (7-17) mg/dL Creatinine 1.26 H (0.52-1.04) mg/dL Glucose 76 (74-99) mg/dL Calcium 6.9 L (8.4-10.2) mg/dL AST 88 H (14-36) U/L ALT 114 H (4-34) U/L Alkaline Phosphatase 129 H (38-126) U/L Total Protein 5.8 L (6.3-8.2) g/dL Albumin 3.1 L (3.5-5.0) g/dL Calcium panel 02/11/22 Range/Units 05:24 Calcium 6.9 L (8.4-10.2) mg/dL Albumin 3.1 L (3.5-5.0) g/dL Pituitary panel 02/11/22 Range/Units 05:24 Sodium 142 (137-145) mmol/L Potassium 3.9 (3.5-5.1) mmol/L Chloride 107 (98-107) mmol/L Carbon Dioxide 26 (22-30) mmol/L BUN 28 H (7-17) mg/dL Creatinine 1.26 H (0.52-1.04) mg/dL Glucose 76 (74-99) mg/dL Calcium 6.9 L (8.4-10.2) mg/dL Adrenal panel 02/11/22 Range/Units 05:24 Sodium 142 (137-145) mmol/L Potassium 3.9 (3.5-5.1) mmol/L Chloride 107 (98-107) mmol/L Carbon Dioxide 26 (22-30) mmol/L BUN 28 H (7-17) mg/dL Creatinine 1.26 H (0.52-1.04) mg/dL Glucose 76 (74-99) mg/dL Calcium 6.9 L (8.4-10.2) mg/dL Total Bilirubin 1.6 H (0.2-1.3) mg/dL AST 88 H (14-36) U/L ALT 114 H (4-34) U/L Alkaline Phosphatase 129 H (38-126) U/L Total Protein 5.8 L (6.3-8.2) g/dL Albumin 3.1 L (3.5-5.0) g/dL
[2022-02-11 16:39] LABS: Glucose,Whole Blood 149 mg/dL (70-110)
[2022-02-11 20:16] LABS: Glucose,Whole Blood 141 mg/dL (70-110)
[2022-02-11] MEDS: QUEtiapine 25 MG TAB PO SCH (20:19)
[2022-02-11] MEDS: MONTELUKAST 10 MG TAB PO SCH (20:19)
[2022-02-12 06:45] LABS: Glucose,Whole Blood 95 mg/dL (70-110)
[2022-02-12] MEDS: INSULIN ASPART (NovoLOG) 100 UNIT/ML VIAL SQ SCH ×4 (06:45→21:12)
[2022-02-12] MEDS: INSULIN DETEMIR (LEVEMIR) 100 UNIT/ML SYR SQ SCH (06:47)
--- NOTE | 2022-02-12 08:03 | P.PN ---
Subjective Progress Note Date: 02/09/22 Principal diagnosis: Urinary tract infection She is a 72-year-old female with a past medical history significant for recurrent urinary tract infection was brought into the ER for evaluation of bradycardia and some mental status changes there was concern for possible UTI. 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 On today's evaluation that is 02/09/2022 the patient is afebrile, the patient is more awake and alert up in the bed talking to the family patient denies having any chest pain or shortness with or cough some nausea and vomiting no abdominal pain no diarrhea Objective - Vital Signs Vital signs: Vital Signs Temp 98 F 02/09/22 12:35 Pulse 89 02/09/22 12:35 Resp 18 02/09/22 12:35 BP 149/72 02/09/22 12:35 Pulse Ox 95 02/09/22 12:35 FiO2 Intake & Output 02/08/22 02/09/22 02/09/22 18:59 06:59 18:59 Intake Total 538 1150 Output Total 500 850 Balance 38 300 Intake: Intake, IV Titration 900 Amount Sodium Chloride 0.9% 1, 900 000 ml @ 75 mls/hr IV . [id number] JAY Rx#:[id number] Oral 538 250 Output: Urine 500 850 Other: Voiding Method Indwelling Catheter Indwelling Catheter Indwelling Catheter # Bowel Movements 1 2 - Exam GENERAL DESCRIPTION: An elderly female lying in bed in no distress RESPIRATORY SYSTEM: Unlabored breathing , decreased breath sounds at bases HEART: S1 S2 regular rate and rhythm , ABDOMEN: Soft , no tenderness EXTREMITIES: No edema feet - Labs CBC & Chem 7: 02/09/22 11:21 02/11/22 05:24 Labs: Abnormal Lab Results - Last 24 Hours (Table) 02/08/22 02/08/22 02/09/22 Range/Units 11:15 16:40 09:50 RBC (3.80-5.40) m/uL Hgb (11.4-16.0) gm/dL MCHC (31.0-37.0) g/dL RDW (11.5-15.5) % BUN (7-17) mg/dL Creatinine (0.52-1.04) mg/dL POC Glucose (mg/dL) 185 H (70-110) mg/dL Calcium (8.4-10.2) mg/dL Total Bilirubin (0.2-1.3) mg/dL AST (14-36) U/L ALT (4-34) U/L Alkaline Phosphatase (38-126) U/L Albumin (3.5-5.0) g/dL Procalcitonin 0.50 H (0.02-0.09) ng/mL Urine Protein 2+ H (Negative) Urine Blood Moderate H (Negative) Ur Leukocyte Esterase Large H (Negative) Urine RBC 7 H (0-5) /hpf Urine WBC 52 H (0-5) /hpf Urine Bacteria Rare H (None) /hpf Urine Mucus Rare H (None) /hpf 02/09/22 02/09/22 Range/Units 11:21 11:21 RBC 3.74 L (3.80-5.40) m/uL Hgb 11.1 L (11.4-16.0) gm/dL MCHC 30.5 L (31.0-37.0) g/dL RDW 16.5 H (11.5-15.5) % BUN 46 H (7-17) mg/dL Creatinine 1.68 H (0.52-1.04) mg/dL POC Glucose (mg/dL) (70-110) mg/dL Calcium 7.4 L (8.4-10.2) mg/dL Total Bilirubin 1.9 H (0.2-1.3) mg/dL AST 276 H (14-36) U/L ALT 199 H (4-34) U/L Alkaline Phosphatase 144 H (38-126) U/L Albumin 3.4 L (3.5-5.0) g/dL Procalcitonin (0.02-0.09) ng/mL Urine Protein (Negative) Urine Blood (Negative) Ur Leukocyte Esterase (Negative) Urine RBC (0-5) /hpf Urine WBC (0-5) /hpf Urine Bacteria (None) /hpf Urine Mucus (None) /hpf Assessment and Plan (1) Urinary tract infection Current Visit: No Status: Acute Code(s): N39.0 - URINARY TRACT INFECTION, SITE NOT SPECIFIED SNOMED Code(s): 60108178 Plan: 1patient with a admission to the hospital mental status changes this patient did have slightly dysuria recently has been on Bactrim DS with a urine pain in the hospital not significantly positive could be because of the antibiotic exposure because of the persistent symptoms possible component of cystitis not behaving as deep infection. 2left foot lateral border wound with no cellulitis, local wound care with the Santyl and keep the area off the pressure 3urine has been finalized with a VRE, patient is currently on daptomycin , While waiting for the repeat urine culture to be finalized. 4patient with elevated liver enzymes ultrasound has been suspicious for cho lecystitis we will add Zosyn and monitor clinical course closely discussed with the UNDERWEAR FINISHER for admitting team Time with Patient: Less than 30
--- NOTE | 2022-02-12 08:04 | P.PN ---
Subjective Progress Note Date: 02/10/22 Principal diagnosis: Urinary tract infection She is a 72-year-old female with a past medical history significant for recurrent urinary tract infection was brought into the ER for evaluation of bradycardia and some mental status changes there was concern for possible UTI. 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 On today's evaluation that is 02/10/2022 the patient remains to be afebrile, patient is breathing comfortably on room air denies having any chest pain or shortness of breath or cough no nausea no vomiting no abdominal pain no diarrhea Objective - Vital Signs Vital signs: Vital Signs Temp 98.3 F 02/10/22 19:24 Pulse 79 02/10/22 19:24 Resp 16 02/10/22 19:24 BP 135/68 02/10/22 19:24 Pulse Ox 94 L 02/10/22 19:24 FiO2 21 02/09/22 19:50 Intake & Output 02/10/22 02/10/22 02/11/22 06:59 18:59 06:59 Intake Total 270 Output Total 600 600 Balance -600 -330 Intake: Oral 270 Output: Urine 600 600 Other: Voiding Method Indwelling Catheter Indwelling Catheter Indwelling Catheter - Exam GENERAL DESCRIPTION: An elderly female lying in bed in no distress RESPIRATORY SYSTEM: Unlabored breathing , decreased breath sounds at bases HEART: S1 S2 regular rate and rhythm , ABDOMEN: Soft , no tenderness EXTREMITIES: No edema feet - Labs CBC & Chem 7: 02/09/22 11:21 02/11/22 05:24 Labs: Abnormal Lab Results - Last 24 Hours (Table) 02/10/22 02/10/22 02/10/22 Range/Units 05:47 11:31 16:19 BUN 38 H (7-17) mg/dL Creatinine 1.36 H (0.52-1.04) mg/dL POC Glucose (mg/dL) 122 H 276 H (70-110) mg/dL Calcium 7.3 L (8.4-10.2) mg/dL Total Bilirubin 1.7 H (0.2-1.3) mg/dL AST 151 H (14-36) U/L ALT 148 H (4-34) U/L Alkaline Phosphatase 132 H (38-126) U/L Total Protein 5.9 L (6.3-8.2) g/dL Albumin 3.1 L (3.5-5.0) g/dL 02/10/22 Range/Units 20:15 BUN (7-17) mg/dL Creatinine (0.52-1.04) mg/dL POC Glucose (mg/dL) 156 H (70-110) mg/dL Calcium (8.4-10.2) mg/dL Total Bilirubin (0.2-1.3) mg/dL AST (14-36) U/L ALT (4-34) U/L Alkaline Phosphatase (38-126) U/L Total Protein (6.3-8.2) g/dL Albumin (3.5-5.0) g/dL Microbiology - Last 24 Hours (Table) 02/09/22 09:50 Urine Culture - Preliminary Urine,Voided Assessment and Plan (1) Urinary tract infection Current Visit: No Status: Acute Code(s): N39.0 - URINARY TRACT INFECTION, SITE NOT SPECIFIED SNOMED Code(s): 79571431 Plan: 1patient with a admission to the hospital mental status changes this patient did have slightly dysuria recently has been on Bactrim DS with a urine pain in the hospital not significantly positive could be because of the antibiotic exposure because of the persistent symptoms possible component of cystitis not behaving as deep infection. 2left foot lateral border wound with no cellulitis, local wound care with the Santyl and keep the area off the pressure 3urine has been finalized with a VRE, patient is currently on daptomycin , While waiting for the repeat urine culture to be finalized. 4patient with elevated liver enzymes ultrasound has been suspicious for cholecystitis , Patient to continue with the [facility] monitor liver enzymes closely may benefit from surgical evaluation Time with Patient: Less than 30
--- NOTE | 2022-02-12 08:06 | P.PN ---
Subjective Progress Note Date: 02/11/22 Principal diagnosis: Urinary tract infection She is a 72-year-old female with a past medical history significant for recurrent urinary tract infection was brought into the ER for evaluation of bradycardia and some mental status changes there was concern for possible UTI. 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 On today's evaluation that is 02/11/2022 the patient remains to be afebrile, the patient denies having any chest pain or shortness of breath or cough no nausea no vomiting no abdominal pain and no diarrhea Objective - Vital Signs Vital signs: Vital Signs Temp 98 F 02/11/22 12:00 Pulse 79 02/11/22 12:00 Resp 16 02/11/22 13:05 BP 132/74 02/11/22 12:00 Pulse Ox 94 L 02/11/22 12:00 FiO2 21 02/09/22 19:50 Intake & Output 02/10/22 02/11/22 02/11/22 18:59 06:59 18:59 Intake Total 270 118 Output Total 600 300 Balance -330 -300 118 Intake: Oral 270 118 Output: Urine 600 300 Other: Voiding Method Indwelling Catheter Indwelling Catheter Indwelling Catheter - Exam GENERAL DESCRIPTION: An elderly female lying in bed in no distress RESPIRATORY SYSTEM: Unlabored breathing , decreased breath sounds at bases HEART: S1 S2 regular rate and rhythm , ABDOMEN: Soft , no tenderness EXTREMITIES: No edema feet - Labs CBC & Chem 7: 02/09/22 11:21 02/11/22 05:24 Labs: Abnormal Lab Results - Last 24 Hours (Table) 02/10/22 02/10/22 02/11/22 Range/Units 16:19 20:15 05:24 BUN 28 H (7-17) mg/dL Creatinine 1.26 H (0.52-1.04) mg/dL POC Glucose (mg/dL) 276 H 156 H (70-110) mg/dL Calcium 6.9 L (8.4-10.2) mg/dL Total Bilirubin 1.6 H (0.2-1.3) mg/dL AST 88 H (14-36) U/L ALT 114 H (4-34) U/L Alkaline Phosphatase 129 H (38-126) U/L Total Protein 5.8 L (6.3-8.2) g/dL Albumin 3.1 L (3.5-5.0) g/dL 02/11/22 Range/Units 11:22 BUN (7-17) mg/dL Creatinine (0.52-1.04) mg/dL POC Glucose (mg/dL) 184 H (70-110) mg/dL Calcium (8.4-10.2) mg/dL Total Bilirubin (0.2-1.3) mg/dL AST (14-36) U/L ALT (4-34) U/L Alkaline Phosphatase (38-126) U/L Total Protein (6.3-8.2) g/dL Albumin (3.5-5.0) g/dL Microbiology - Last 24 Hours (Table) 02/09/22 09:50 Urine Culture - Final Urine,Voided Assessment and Plan (1) Urinary tract infection Current Visit: No Status: Acute Code(s): N39.0 - URINARY TRACT INFECTION, SITE NOT SPECIFIED SNOMED Code(s): 00489650 Plan: 1patient with a admission to the hospital mental status changes this patient did have slightly dysuria recently has been on Bactrim DS with a urine pain in the hospital not significantly positive could be because of the antibiotic exposure because of the persistent symptoms possible component of cystitis not b ehaving as deep infection. 2left foot lateral border wound with no cellulitis, local wound care with the Santyl and keep the area off the pressure 3urine has been finalized with a VRE, The patient repeat urine was positive however culture has been negative so far patient has received adequate dapt omycin for possible cystitis and will be discontinued on discharge. 4patient with elevated liver enzymes abnormal ultrasound suspicious for cholecystitis surgery has seen the patient apparently patient family refusing surgical intervention she is covered with the Zosyn will recommend a short course of oral Augmentin on discharge Time with Patient: Less than 30
[2022-02-12] MEDS: BUDESONIDE 1 MG/2 ML NEBU INHALATION SCH ×2 (08:45→22:00)
[2022-02-12] MEDS: IPRATROPIUM-ALBUTEROL 3 ML NEB INHALATION SCH ×4 (08:46→22:01)
[2022-02-12] MEDS: SYMBICORT 160-4.5 MCG INHALER INHALATION SCH ×2 (08:46→22:01)
--- NOTE | 2022-02-12 09:26 | P.PN ---
Subjective Progress Note Date: 02/11/22 02/04/2022 Patient is admitted for syncopal episode which is believed to be secondary to hypotension patient was also bradycardic cardiology evaluated the patient patient doesn't have any heart block patient is also being COPD exacerbation. Patient is a significantly confused today patient is severely encephalopathic because of which I'm obtaining arterial blood gas with a concern of CO2 retention patient will be started on systemic steroids inhalational treatments. Tramadol and other medications that can cause encephalopathy will be discontinued. Patient is alert oriented 1. Patient is also on diuretics for heart failure, does have history of ischemic cardiomyopathy systolic dysfunction. Patient on this hospitalization is warranted completed presently receiving IV fluids off diuretics patient also has acute renal failure with the elevated creatinine to about 2 baseline appears to be around 1.2.e has an EF of around 35%. 02/05/2022 Patient's ABGs did not show any significant elevation in pCO2. Patient is still bit confused but appears to be bit better compared to yesterday. appears to have owners will cut down the dose of steroids, requested the nursing staff to ablate the patient always which helps with her confusion and delirium we'll [place] in a CT of the head without contrast to rule out any intracranial bleed possibility of which is low. Her serum creatinine continue to improve her wheezing improved. 02/06/2022 Patient is seen in follow-up this morning rolling around the bed, yelling and moaning and asking for "help". Patient is not eating nor taking any oral medications. Patient is saying "I don't want this, no, no, no" to treatment and help from the nursing staff at bedside. Ordered IV tylenol and seroquel. Recommend to hold narcotics and SOCIAL MEDIA STRATEGIST agents due to mentation. Patient is continued on IV zosyn and urine culture is showing VRE with ID following. Kidney functions have worsened and nephrology consulted and being started on bicarb drip. Possible dialysis is being discussed and family is refusing as this was discussed prior and patient refused and told daughter she never wanted dialysis. Patient is pulling at lines and no IV access at this time and midline is reordered. Potassium is elevated at 6.7 and a dose of lokelma is ordered again for today. Did order insulin, dextrose, and calcium gluconate cocktail. Will follow up with am labs. Patient family at the bedside with lengthy discussion had about palliative vs. hospice and they had palliative previously. Requesting hospice and will place the consult for informational. 02/07/2022 Patient is seen this morning and continues to be confused although appears more calm. Kidney functions are improving and nephrology following and recommend to continue with bicarb drip and recommend repeat labs. ID following as well and urine showing VRE and being transitioned to daptomycin and repeat urine ordered. Patient is not eating and not really taking medications per RN. Encouraged oral intake. Afebrile and vitals are stable. Family is discussing hospice. 02/08/2022 Patient seen today and is awake and alert sitting up in bed with multiple family members present. Patient is maintained on IV bicarb along with iv daptomycin and nephrology and ID following closely. Urine with VRE as well as RADHA and continues with barone catheter. Drinking and recommend speech consult to assess swallow eval as patient was most recently extremely confused and restless and refusing all foods over the last several day. Recommend strict aspiration precautions. Patient continues with confusion and is continuing to refuse dialysis and plans were for possible hospice house and family has met for informational. POA daughter provided paperwork and also met with hospice house nurse. With patients improvement in mentation, will recommend continuing with IV bicarb and hydration along with IV abx for the VRE and closely observing over the next few days for clinical improvement. Family is agreeable. Recommend repeat labs in am. Continue local wound care of the left foot. 02/09/2022 Patient is monitored today on step down unit. She is resting in bed. She is confused at this time. Family is not at the bedside. She continues on IV daptomycin . She is currently off bicarb infusion and has been transitioned to normal saline running at 75 mls per hour. Urine is positive for VRE and she continues with indwelling barone catheter. Speech therapy evaluation has been completed with current recommendations for Dysphagia III chopped diet with thin liquids sitting upright 90 degress wtih small bites and sips, direct supervision 1:1. She is on strict aspiration precautions. Patient underwent abdominal ultrasound this morning showing hepatomegaly with some focal wall thickening through the gallbladder measuring 0.5 cm. Normal less than 0.3 cm. Correlate for cholecystitis. Procalcitonin level 0.50. Right renal cyst. Repeat urine today similar to prior findings. Labs from today are pending, monitoring trend in liver enzymes. She remains afebrile, blood pressure 151/71, 90% on room air. No abdominal tenderness on exam. 02/10/2022 Patient today is more alert and oriented. She does report some mild right lower quadrant abdominal pain about a 2 to 3/10. Reports some nausea, but no vomiting or diarrhea. She is eating about 25% of meals. Infectious disease has added IV zosyn and she also continues on IV daptomycin. Labs today showing BUN of 38, creatinine of 1.36 and liver enzymes are slightly improved today, AST 151, ALT 148, alk phos 132. Family at this time and patient do not wish to pursue surgical intervention regarding gallbladder. Will monitor improvement in liver function on antibiotics and make further recommendations. She is currently afebrile, heart rate 88, blood pressure 134/72, 92% room air. No acute events overnight. 02/11/2022 Patient seen and evaluated in follow-up today currently sitting up at the side of the bed alert and oriented in with daughter at the bedside. Plan was for possible hospice house although patient's mentation and clinical picture is i mproved and now agreeable to home with home care. Family arranging for 24/7 care at her home and will continue with home care as well. Patient will need close outpatient follow-up with nephrology. Patient currently maintained on IV antibiotics that were switched to Zosyn along with daptomycin and will discuss with infectious disease about requiring additional antibiotics. Repeat urinalysis thus far is negative. Patient continues to be adamant about no dialysis encouraged oral intake and patient reports she is getting some of her appetite back and did eat about half of her breakfast. Patient is afebrile denies chest pain or shortness of breath and requesting when she can go home.. Review of systems: Constitutional: No reports of fatigue, fever, or chills Cardiovascular: No reports of chest pain or palpitations Respiratory: No reports of shortness of breath or cough GI: No reports of nausea, vomiting, or diarrhea : No reports of dysuria or retention Neurovascular: No reports of weakness or numbness All medications have been reviewed PHYSICAL EXAMINATION: GENERAL: The patient is alert and oriented x2-3, awake Alert and having conversation responding a properly to questions and commands. in built and ill appearing HEENT: Pupils are round and equally reacting to light. EOMI. No scleral icterus. No conjunctival pallor. Normocephalic, atraumatic. No pharyngeal erythema. No thyromegaly. CARDIOVASCULAR: S1 and S2 present. No murmurs, rubs, or gallops. PULMONARY: diminished bilaterally some scattered rhonchi noted ABDOMEN: Soft, nontender, nondistended, normoactive bowel sounds. No palpable organomegaly. MUSCULOSKELETAL: No joint swelling or deformity. EXTREMITIES: No cyanosis, clubbing, or pedal edema. multiple amputated toes with chronic wounds of the left foot NEUROLOGICAL: Gross neurological examination did not reveal any focal deficits. restless, anxious SKIN: No rashes. Assessment and plan: Syncope suspected secondary to hypotension Severe encephalopathy probably secondary to hospitalization related delirium. Possibly to UTI, CT brain was negative for acute process, improved COPD with acute exacerbation: Patient maintained on systemic steroids inhalational treatments Congestive heart failure chronic systolic dysfunction patient is not in acute exacerbation patient is volume depleted Chest pain most likely related to her COPD exacerbation acute urinary tract infection, present on admission with VRE hypertension Insulin-dependent diabetes mellitus Depression Chronic atrial fibrillation on Eliquis History of coronary artery disease, status post bypass surgery History of CVA/TIA rheumatoid arthritis peripheral vascular disease status post stent in the right leg Chronic kidney disease stage III probably diabetic nephropathy DVT prophylaxis: On eliquis No code Plan: Recommend to continue with current medications and as needed seroquel. Continue with with tylenol for pain. Avoid narcotics and microsoft dynamics manager architect agents due to confusion and mentation. Mentation improved Kidney functions trending down while on bicarb drip and nephrology following. Conservative measures only, no dialysis per family. Bicarb drip discontinued and being started on normal saline. IV fluids discontinued and labs trending down improved has been cleared by nephrology for outpatient follow-up Urine came back as VRE and patient is on IV daptomycin now with ID following, will follow-up with infectious disease about discharge antibiotics Multiple chronic left foot wounds noted that are currently dressed with kerlex and dry, continue local wound care Given multiple complex medical issues, prognosis is guarded. Patient and family wish to continue with no code status and hospice on stand-by. Arranging for 247 care in the home with family which is currently being arranged possible discharge in 24 hours. The impression and plan of care has been dictated by aLuren Castaneda, Nurse Practitioner as directed. Dr. René MD I have performed a history and examination and MDM of this patient, discussed the same with the dictator, and agree with the dictator's assessment and plan as written ,documented as a scribe. Based on total visit time, I have performed more than 50% of the visit. Objective - Vital Signs Vital signs: Vital Signs Temp 98.1 F 02/11/22 08:00 Pulse 73 02/11/22 08:00 Resp 16 02/11/22 08:00 BP 140/73 02/11/22 08:00 Pulse Ox 93 L 02/11/22 08:00 FiO2 21 02/09/22 19:50 Intake & Output 02/10/22 02/11/22 02/11/22 18:59 06:59 18:59 Intake Total 270 118 Output Total 600 300 Balance -330 -300 118 Intake: Oral 270 118 Output: Urine 600 300 Other: Voiding Method Indwelling Catheter Indwelling Catheter Indwelling Catheter - Labs CBC & Chem 7: 02/09/22 11:21 02/11/22 05:24 Labs: Abnormal Lab Results - Last 24 Hours (Table) 02/10/22 02/10/22 02/11/22 Range/Units 16:19 20:15 05:24 BUN 28 H (7-17) mg/dL Creatinine 1.26 H (0.52-1.04) mg/dL POC Glucose (mg/dL) 276 H 156 H (70-110) mg/dL Calcium 6.9 L (8.4-10.2) mg/dL Total Bilirubin 1.6 H (0.2-1.3) mg/dL AST 88 H (14-36) U/L ALT 114 H (4-34) U/L Alkaline Phosphatase 129 H (38-126) U/L Total Protein 5.8 L (6.3-8.2) g/dL Albumin 3.1 L (3.5-5.0) g/dL 02/11/22 Range/Units 11:22 BUN (7-17) mg/dL Creatinine (0.52-1.04) mg/dL POC Glucose (mg/dL) 184 H (70-110) mg/dL Calcium (8.4-10.2) mg/dL Total Bilirubin (0.2-1.3) mg/dL AST (14-36) U/L ALT (4-34) U/L Alkaline Phosphatase (38-126) U/L Total Protein (6.3-8.2) g/dL Albumin (3.5-5.0) g/dL Microbiology - Last 24 Hours (Table) 02/09/22 09:50 Urine Culture - Final Urine,Voided
--- NOTE | 2022-02-12 10:21 | P.PN ---
Subjective Progress Note Date: 02/12/22 CHIEF COMPLAINT: Chronic cholecystitis HISTORY OF PRESENT ILLNESS: Patient sitting at bedside. She denies any abdominal pain. Denies any nausea or vomiting. Tolerating diet. Afebrile. CMP pending Patient seen and examined with Dr. haley PHYSICAL EXAM: VITAL SIGNS: Reviewed. GENERAL: Well-developed in no acute distress. HEENT: No sclera icterus. Extraocular movements grossly intact. Moist buccal mucosa. Head is atraumatic, normocephalic. ABDOMEN: Soft. Nondistended. Nontender. NEUROLOGIC: Alert and oriented. Cranial nerves II through XII grossly intact. ASSESSMENT: 1. Chronic cholecystitis. Wall thickening of the gallbladder on ultrasound with elevated liver enzymes PLAN: -No surgical intervention planned -Patient and family requesting no surgical intervention on gallbladder -Continue supportive care -Recommend low-fat diet Physician Music Artist note has been reviewed by physician. Signing provider agrees with the documented findings, assessment, and plan of care. Objective - Vital Signs Vital signs: Vital Signs Temp 97.8 F 02/12/22 03:44 Pulse 76 02/12/22 03:44 Resp 15 02/12/22 03:44 BP 96/67 02/12/22 03:44 Pulse Ox 92 L 02/12/22 03:44 FiO2 21 02/09/22 19:50 Intake & Output 02/11/22 02/12/22 02/12/22 18:59 06:59 18:59 Intake Total 118 220 118 Output Total 550 Balance 118 -330 118 Intake: Intake, IV Titration 220 Amount Piperacillin-Tazobactam 3 100 .375 gm In Sodium Chloride 0.9% 100 ml @ 25 mls/hr IVPB Q8HR JAY Rx# :[id number] Sodium Chloride 0.9% 1, 120 000 ml @ 50 mls/hr IV . Q20H JAY Rx#:[id number] Oral 118 118 Output: Urine 550 Uretheral (Langston) 550 Other: Voiding Method Indwelling Catheter Indwelling Catheter - Labs CBC & Chem 7: 02/09/22 11:21 02/11/22 05:24 Labs: Abnormal Lab Results - Last 24 Hours (Table) 02/11/22 02/11/22 02/11/22 Range/Units : 16:37 20:15 POC Glucose (mg/dL) 184 H 149 H 141 H (70-110) mg/dL
[2022-02-12] MEDS: PIPERACILLIN-TAZOBACTAM 3.375 GM in SODIUM CHLORIDE 0.9% 100 ML IVPB SCH ×3 (10:30→23:46)
[2022-02-12] MEDS: amLODIPine 5 MG TAB PO SCH (10:30)
[2022-02-12] MEDS: FERROUS SULFATE 325 MG TAB PO SCH (10:31)
[2022-02-12] MEDS: COLLAGENASE 250 UNIT/GM OINTMENT 30 GM TUBE TOPICAL SCH (10:31)
[2022-02-12] MEDS: APIXABAN 2.5 MG TABLET PO SCH ×2 (10:31→21:11)
[2022-02-12] MEDS: DULoxetine HCL 60 MG CAPSULE.DR PO SCH (10:31)
[2022-02-12] MEDS: FAMOTIDINE 20 MG/2 ML VIAL IV SCH (10:31)
[2022-02-12] MEDS: NON FORMULARY DRUG (Lumateperone Tosylate [Caplyta] 42 MG Capsule) PO SCH (10:49)
[2022-02-12 11:20] LABS: Albumin 3.1 g/dL (3.5-5.0); Calcium 7.2 mg/dL (8.4-10.2); Potassium 4.1 mmol/L (3.5-5.1); Total Bilirubin 1.4 mg/dL (0.2-1.3)
[2022-02-12] MEDS ORDERED: ONDANSETRON 4 MG/2 ML VIAL IVP PRN (11:21)
[2022-02-12 11:50] LABS: Glucose,Whole Blood 97 mg/dL (70-110)
--- NOTE | 2022-02-12 12:06 | P.PN ---
Subjective Patient is seen in follow-up for acute kidney injury. Patient is awake. She states she feels better. No chest pains, shortness of breath or nausea or vomiting. Urine output at 900 ML for 24 hours Serum creatinine improved to 1.3 today from 2.5 at peak. Objective - Vital Signs Vital signs: Vital Signs Temp 98.5 F 02/12/22 08:00 Pulse 79 02/12/22 08:00 Resp 18 02/12/22 08:00 BP 140/76 02/12/22 08:00 Pulse Ox 95 02/12/22 08:00 FiO2 21 02/09/22 19:50 Intake & Output 02/11/22 02/12/22 02/12/22 18:59 06:59 18:59 Intake Total 118 220 118 Output Total 550 Balance 118 -330 118 Intake: Intake, IV Titration 220 Amount Piperacillin-Tazobactam 3 100 .375 gm In Sodium Chloride 0.9% 100 ml @ 25 mls/hr IVPB Q8HR JAY Rx# :[id number] Sodium Chloride 0.9% 1, 120 000 ml @ 50 mls/hr IV . Q20H JAY Rx#:[id number] Oral 118 118 Output: Urine 550 Uretheral (Langston) 550 Other: Voiding Method Indwelling Catheter Indwelling Catheter Indwelling Catheter - Exam Patient is awake. Alert oriented 3. No acute distress Examination of the heart S1 and S2 Examination of lungs decreased breath sounds at the bases Abdomen is soft nontender Examination of lower extremities shows no significant edema DERRICK HAND exam grossly intact - Labs CBC & Chem 7: 02/09/22 11:21 02/12/22 09:55 Labs: Abnormal Lab Results - Last 24 Hours (Table) 02/11/22 02/11/22 02/12/22 Range/Units 16:37 20:15 09:55 BUN 21 H (7-17) mg/dL Creatinine 1.30 H (0.52-1.04) mg/dL Glucose 121 H (74-99) mg/dL POC Glucose (mg/dL) 149 H 141 H (70-110) mg/dL Calcium 7.2 L (8.4-10.2) mg/dL Total Bilirubin 1.4 H (0.2-1.3) mg/dL AST 60 H (14-36) U/L ALT 85 H (4-34) U/L Total Protein 6.0 L (6.3-8.2) g/dL Albumin 3.1 L (3.5-5.0) g/dL Assessment and Plan Assessment: 1. Acute kidney injury secondary to ATN secondary to severe sepsis and hemodynamic instability. Creatinine 1.3 today. No hydronephrosis noted on kidney ultrasound. Renal function has improved. 2. Chronic kidney disease stage IIIa. Baseline creatinine in the range of 1.3- 1.4 s likely secondary to diabetic kidney disease. UA fairly benign with trace protein. 3. VRE UTI on antibiotics. 4. Metabolic acidosis secondary to acute kidney injury and IV fluids. Status post bicarb drip. 5. Hypertension with chronic kidney disease. Stable. 6. Diabetes mellitus. 7. Hyperkalemia secondary to acute kidney injury and metabolic acidosis. Improved with medical management. 8. Chronic systolic CHF with ejection fraction of 20%. 9. Sinus bradycardia. Resolved. Seen by cardiology. Plan: Continue to encourage increased oral intake
--- NOTE | 2022-02-12 14:48 | P.PN ---
Subjective Progress Note Date: 02/12/22 02/04/2022 Patient is admitted for syncopal episode which is believed to be secondary to hypotension patient was also bradycardic cardiology evaluated the patient patient doesn't have any heart block patient is also being COPD exacerbation. Patient is a significantly confused today patient is severely encephalopathic because of which I'm obtaining arterial blood gas with a concern of CO2 retention patient will be started on systemic steroids inhalational treatments. Tramadol and other medications that can cause encephalopathy will be discontinued. Patient is alert oriented 1. Patient is also on diuretics for heart failure, does have history of ischemic cardiomyopathy systolic dysfunction. Patient on this hospitalization is warranted completed presently receiving IV fluids off diuretics patient also has acute renal failure with the elevated creatinine to about 2 baseline appears to be around 1.2.e has an EF of around 35%. 02/05/2022 Patient's ABGs did not show any significant elevation in pCO2. Patient is still bit confused but appears to be bit better compared to yesterday. appears to have owners will cut down the dose of steroids, requested the nursing staff to ablate the patient always which helps with her confusion and delirium we'll [place]sop in a CT of the head without contrast to rule out any intracranial bleed possibility of which is low. Her serum creatinine continue to improve her wheezing improved. 02/06/2022 Patient is seen in follow-up this morning rolling around the bed, yelling and moaning and asking for "help". Patient is not eating nor taking any oral medications. Patient is saying "I don't want this, no, no, no" to treatment and help from the nursing staff at bedside. Ordered IV tylenol and seroquel. Recommend to hold narcotics and ASSISTANT MEN'S SOCCER COACH agents due to mentation. Patient is continued on IV zosyn and urine culture is showing VRE with ID following. Kidney functions have worsened and nephrology consulted and being started on bicarb drip. Possible dialysis is being discussed and family is refusing as this was discussed prior and patient refused and told daughter she never wanted dialysis. Patient is pulling at lines and no IV access at this time and midline is reordered. Potassium is elevated at 6.7 and a dose of lokelma is ordered again for today. Did order insulin, dextrose, and calcium gluconate cocktail. Will follow up with am labs. Patient family at the bedside with lengthy discussion had about palliative vs. hospice and they had palliative previously. Requesting hospice and will place the consult for informational. 02/07/2022 Patient is seen this morning and continues to be confused although appears more calm. Kidney functions are improving and nephrology following and recommend to continue with bicarb drip and recommend repeat labs. ID following as well and urine showing VRE and being transitioned to daptomycin and repeat urine ordered. Patient is not eating and not really taking medications per RN. Encouraged oral intake. Afebrile and vitals are stable. Family is discussing hospice. 02/08/2022 Patient seen today and is awake and alert sitting up in bed with multiple family members present. Patient is maintained on IV bicarb along with iv daptomycin and nephrology and ID following closely. Urine with VRE as well as RADHA and continues with barone catheter. Drinking and recommend speech consult to assess swallow eval as patient was most recently extremely confused and restless and refusing all foods over the last several day. Recommend strict aspiration precautions. Patient continues with confusion and is continuing to refuse dialysis and plans were for possible hospice house and family has met for informational. POA daughter provided paperwork and also met with hospice house nurse. With patients improvement in mentation, will recommend continuing with IV bicarb and hydration along with IV abx for the VRE and closely observing over the next few days for clinical improvement. Family is agreeable. Recommend repeat labs in am. Continue local wound care of the left foot. 02/09/2022 Patient is monitored today on step down unit. She is resting in bed. She is confused at this time. Family is not at the bedside. She continues on IV daptomycin . She is currently off bicarb infusion and has been transitioned to normal saline running at 75 mls per hour. Urine is positive for VRE and she continues with indwelling barone catheter. Speech therapy evaluation has been completed with current recommendations for Dysphagia III chopped diet with thin liquids sitting upright 90 degress wtih small bites and sips, direct supervision 1:1. She is on strict aspiration precautions. Patient underwent abdominal ultrasound this morning showing hepatomegaly with some focal wall thickening through the gallbladder measuring 0.5 cm. Normal less than 0.3 cm. Correlate for cholecystitis. Procalcitonin level 0.50. Right renal cyst. Repeat urine today similar to prior findings. Labs from today are pending, monitoring trend in liver enzymes. She remains afebrile, blood pressure 151/71, 90% on room air. No abdominal tenderness on exam. 02/10/2022 Patient today is more alert and oriented. She does report some mild right lower quadrant abdominal pain about a 2 to 3/10. Reports some nausea, but no vomiting or diarrhea. She is eating about 25% of meals. Infectious disease has added IV zosyn and she also continues on IV daptomycin. Labs today showing BUN of 38, creatinine of 1.36 and liver enzymes are slightly improved today, AST 151, ALT 148, alk phos 132. Family at this time and patient do not wish to pursue surgical intervention regarding gallbladder. Will monitor improvement in liver function on antibiotics and make further recommendations. She is currently afebrile, heart rate 88, blood pressure 134/72, 92% room air. No acute events overnight. 02/11/2022 Patient seen and evaluated in follow-up today currently sitting up at the side of the bed alert and oriented in with daughter at the bedside. Plan was for possible hospice house although patient's mentation and clinical picture is i mproved and now agreeable to home with home care. Family arranging for 24/ care at her home and will continue with home care as well. Patient will need close outpatient follow-up with nephrology. Patient currently maintained on IV antibiotics that were switched to Zosyn along with daptomycin and will discuss with infectious disease about requiring additional antibiotics. Repeat urinalysis thus far is negative. Patient continues to be adamant about no dialysis encouraged oral intake and patient reports she is getting some of her appetite back and did eat about half of her breakfast. Patient is afebrile denies chest pain or shortness of breath and requesting when she can go home.. 02/12/2022 Patient is seen and evaluated in follow-up this morning currently doing well asking when she can go home although apparently per nursing staff patient was dry heaving and reported some nausea and does have Zofran as needed. Will add Reglan and encourage the patient to continue with small frequent meals and will closely observe overnight for any further nausea or vomiting with possible di scharge in 24 hours. Daughter at the bedside and this was discussed with her and agreeable. Patient is afebrile and maintained on IV antibiotics and we'll transition to oral Augmentin on discharge. Encouraged increased activity as tolerated and will continue to monitor overnight. Patient also being followed by nephrology as well as general surgery with no plans for surgical intervention at this time. Patient will need close outpatient follow-up with nephrology and surgery in the outpatient setting. Review of systems: Constitutional: No reports of fatigue, fever, or chills Cardiovascular: No reports of chest pain or palpitations Respiratory: No reports of shortness of breath or cough GI: reports of nausea and dry heaving, no reports of vomiting, or diarrhea : No reports of dysuria or retention Neurovascular: No reports of weakness or numbness All medications have been reviewed PHYSICAL EXAMINATION: GENERAL: The patient is alert and oriented x2-3, awake Alert and having co nversation responding a properly to questions and commands. in built and ill appearing HEENT: Pupils are round and equally reacting to light. EOMI. No scleral icterus. No conjunctival pallor. Normocephalic, atraumatic. No pharyngeal erythema. No thyromegaly. CARDIOVASCULAR: S1 and S2 present. No murmurs, rubs, or gallops. PULMONARY: diminished bilaterally some scattered rhonchi noted ABDOMEN: Soft, nontender, nondistended, normoactive bowel sounds. No palpable organomegaly. MUSCULOSKELETAL: No joint swelling or deformity. EXTREMITIES: No cyanosis, clubbing, or pedal edema. multiple amputated toes with chronic wounds of the left foot NEUROLOGICAL: Gross neurological examination did not reveal any focal deficits. restless, anxious SKIN: No rashes. Assessment and plan: Syncope suspected secondary to hypotension Severe encephalopathy probably secondary to hospitalization related delirium. Possibly to UTI, CT brain was negative for acute process, improved COPD with acute exacerbation: Patient maintained on systemic steroids inhalational treatments Congestive heart failure chronic systolic dysfunction patient is not in acute exacerbation patient is volume depleted Chest pain most likely related to her COPD exacerbation acute urinary tract infection, present on admission with VRE hypertension Insulin-dependent diabetes mellitus Depression Chronic atrial fibrillation on Eliquis History of coronary artery disease, status post bypass surgery History of CVA/TIA rheumatoid arthritis peripheral vascular disease status post stent in the right leg Chronic kidney disease stage III probably diabetic nephropathy DVT prophylaxis: On eliquis No code Plan: Recommend to continue with current medications and continue with anti-emetics as patient is having some dry heaving and nausea today. Will continue Zofran and have added Reglan and encourage the patient to continue with small frequent meals as tolerated and will observe overnight for any further nausea or vomiting with possible discharge in 24 hours. Continue with with tylenol for pain. Avoid narcotics and senior programmer agents due to confusion and mentation. Mentation improved Kidney functions trending down while on bicarb drip and nephrology following. Conservative measures only, no dialysis per family. Bicarb drip discontinued and being started on normal saline. IV fluids discontinued and labs trending down improved has been cleared by nephrology for outpatient follow-up Urine came back as VRE and patient is on IV daptomycin now with ID following, will continue on oral Augmentin for a short course in the outpatient setting Multiple chronic left foot wounds noted that are currently dressed with kerlex and dry, continue local wound care Given multiple complex medical issues, prognosis is guarded. Patient and family wish to continue with no code status and hospice on stand-by. Arranging for 247 care in the home with family which is currently being arranged possible discharge in 24 hours if nausea is improved. The impression and plan of care has been dictated by Nurse Jean Paul Pra ctitioner as directed. Dr. René MD I have performed a history and examination and MDM of this patient, discussed the same with the dictator, and agree with the dictator's assessment and plan as written ,documented as a scribe. Based on total visit time, I have performed more than 50% of the visit. Objective - Vital Signs Vital signs: Vital Signs Temp 98.5 F 02/12/22 08:00 Pulse 79 02/12/22 08:00 Resp 18 02/12/22 08:00 BP 140/76 02/12/22 08:00 Pulse Ox 95 02/12/22 08:00 FiO2 21 02/09/22 19:50 Intake & Output 02/11/22 02/12/22 02/12/22 18:59 06:59 18:59 Intake Total 118 220 118 Output Total 550 Balance 118 -330 118 Intake: Intake, IV Titration 220 Amount Piperacillin-Tazobactam 3 100 .375 gm In Sodium Chloride 0.9% 100 ml @ 25 mls/hr IVPB Q8HR JAY Rx# :[id number] Sodium Chloride 0.9% 1, 120 000 ml @ 50 mls/hr IV . Q20H JAY Rx#:[id number] Oral 118 118 Output: Urine 550 Uretheral (Barone) 550 Other: Voiding Method Indwelling Catheter Indwelling Catheter Indwelling Catheter - Labs CBC & Chem 7: 02/09/22 11:21 02/12/22 09:55 Labs: Abnormal Lab Results - Last 24 Hours (Table) 02/11/22 02/11/22 02/12/22 Range/Units 16:37 20:15 09:55 BUN 21 H (7-17) mg/dL Creatinine 1.30 H (0.52-1.04) mg/dL Glucose 121 H (74-99) mg/dL POC Glucose (mg/dL) 149 H 141 H (70-110) mg/dL Calcium 7.2 L (8.4-10.2) mg/dL Total Bilirubin 1.4 H (0.2-1.3) mg/dL AST 60 H (14-36) U/L ALT 85 H (4-34) U/L Total Protein 6.0 L (6.3-8.2) g/dL Albumin 3.1 L (3.5-5.0) g/dL
[2022-02-12] MEDS: METOCLOPRAMIDE 5 MG/ML 2 ML VIAL IVP SCH ×2 (16:55→21:11)
[2022-02-12 17:22] LABS: Glucose,Whole Blood 66 mg/dL (70-110)
[2022-02-12 17:44] LABS: Glucose,Whole Blood 82 mg/dL (70-110)
[2022-02-12 19:39] VITALS: RESP 16
[2022-02-12 20:11] LABS: Glucose,Whole Blood 173 mg/dL (70-110)
[2022-02-12] MEDS: QUEtiapine 25 MG TAB PO SCH (21:11)
[2022-02-12] MEDS: MONTELUKAST 10 MG TAB PO SCH (21:11)
[2022-02-13] MEDS: METOCLOPRAMIDE 5 MG/ML 2 ML VIAL IVP SCH ×2 (04:03→09:25)
[2022-02-13 06:05] LABS: Glucose,Whole Blood 54 mg/dL (70-110)
[2022-02-13 06:27] LABS: Glucose,Whole Blood 159 mg/dL (70-110)
[2022-02-13] MEDS: INSULIN ASPART (NovoLOG) 100 UNIT/ML VIAL SQ SCH ×2 (06:41→12:00)
[2022-02-13] MEDS: BUDESONIDE 1 MG/2 ML NEBU INHALATION SCH (08:25)
[2022-02-13] MEDS: SYMBICORT 160-4.5 MCG INHALER INHALATION SCH (08:25)
[2022-02-13] MEDS: IPRATROPIUM-ALBUTEROL 3 ML NEB INHALATION SCH ×3 (08:26→15:31)
[2022-02-13] MEDS: amLODIPine 5 MG TAB PO SCH (09:24)
[2022-02-13] MEDS: DULoxetine HCL 60 MG CAPSULE.DR PO SCH (09:24)
[2022-02-13] MEDS: APIXABAN 2.5 MG TABLET PO SCH (09:24)
[2022-02-13] MEDS: FERROUS SULFATE 325 MG TAB PO SCH (09:25)
[2022-02-13] MEDS: FAMOTIDINE 20 MG/2 ML VIAL IV SCH (09:25)
[2022-02-13] MEDS: PIPERACILLIN-TAZOBACTAM 3.375 GM in SODIUM CHLORIDE 0.9% 100 ML IVPB SCH (09:26)
[2022-02-13] MEDS: NON FORMULARY DRUG (Lumateperone Tosylate [Caplyta] 42 MG Capsule) PO SCH (09:28)
[2022-02-13 10:14] VITALS: TEMP 97.4
[2022-02-13] MEDS ORDERED: METOCLOPRAMIDE 5 MG/ML 2 ML VIAL IVP PRN (10:54)
[2022-02-13] MEDS ORDERED: TAMSULOSIN 0.4 MG CAP.ER.24H PO SCH (11:00)
--- NOTE | 2022-02-13 11:01 | P.PN ---
Subjective Patient is seen in follow-up for acute kidney injury. Patient is awake. She states she feels better. No chest pains, shortness of breath or nausea or vomiting. Serum creatinine improved to 1.3 from 2.5 at peak. Patient has had urine retention. And repeat bladder scan ordered for later on today. If she continues to have significant urine retention and a Langston catheter will be placed. Objective - Vital Signs Vital signs: Vital Signs Temp 97.4 F L 02/13/22 08:00 Pulse 69 02/13/22 08:00 Resp 16 02/13/22 08:00 BP 129/73 02/13/22 08:00 Pulse Ox 94 L 02/13/22 08:27 FiO2 21 02/09/22 19:50 Intake & Output 02/12/22 02/13/22 02/13/22 18:59 06:59 18:59 Intake Total 356 200 Output Total 400 Balance 356 -200 Intake: Oral 356 200 Output: Urine 400 Other: Voiding Method Indwelling Catheter Diaper Diaper - Exam Patient is awake. Alert oriented 3. No acute distress Examination of the heart S1 and S2 Examination of lungs decreased breath sounds at the bases Abdomen is soft nontender Examination of lower extremities shows no significant edema JEWEL FLAT SURFACER exam grossly intact - Labs CBC & Chem 7: 02/09/22 11:21 02/12/22 09:55 Labs: Abnormal Lab Results - Last 24 Hours (Table) 02/12/22 02/12/22 02/12/22 Range/Units 09:55 17:11 20:09 BUN 21 H (7-17) mg/dL Creatinine 1.30 H (0.52-1.04) mg/dL Glucose 121 H (74-99) mg/dL POC Glucose (mg/dL) 66 L 173 H (70-110) mg/dL Calcium 7.2 L (8.4-10.2) mg/dL Total Bilirubin 1.4 H (0.2-1.3) mg/dL AST 60 H (14-36) U/L ALT 85 H (4-34) U/L Total Protein 6.0 L (6.3-8.2) g/dL Albumin 3.1 L (3.5-5.0) g/dL 02/13/22 02/13/22 Range/Units 06:01 06:24 BUN (7-17) mg/dL Creatinine (0.52-1.04) mg/dL Glucose (74-99) mg/dL POC Glucose (mg/dL) 54 L 159 H (70-110) mg/dL Calcium (8.4-10.2) mg/dL Total Bilirubin (0.2-1.3) mg/dL AST (14-36) U/L ALT (4-34) U/L Total Protein (6.3-8.2) g/dL Albumin (3.5-5.0) g/dL Assessment and Plan Assessment: 1. Acute kidney injury secondary to ATN secondary to severe sepsis and hemodynamic instability. Creatinine 1.3 today. No hydronephrosis noted on kidney ultrasound. Renal function has improved. 2. Chronic kidney disease stage IIIa. Baseline creatinine in the range of 1.3- 1.4 s likely secondary to diabetic kidney disease. UA fairly benign with trace protein. 3. VRE UTI on antibiotics. 4. Metabolic acidosis secondary to acute kidney injury and IV fluids. Status post bicarb drip. 5. Hypertension with chronic kidney disease. Stable. 6. Diabetes mellitus. 7. Hyperkalemia secondary to acute kidney injury and metabolic acidosis. Improved with medical management. 8. Chronic systolic CHF with ejection fraction of 20%. 9. Sinus bradycardia. Resolved. Seen by cardiology. 10. Urine retention. There have Langston catheter placed if patient is not able to void. Patient is started on Flomax Plan: Continue to encourage increased oral intake Langston catheter if urine retention persists. Continue with Flomax
[2022-02-13 11:31] LABS: Glucose,Whole Blood 109 mg/dL (70-110)
[2022-02-13 12:00] VITALS: BP 158/68; PULSE 72
[2022-02-13] MEDS: COLLAGENASE 250 UNIT/GM OINTMENT 30 GM TUBE TOPICAL SCH (12:26)
--- NOTE | 2022-02-13 12:45 | P.PN ---
Subjective Progress Note Date: 02/13/22 CHIEF COMPLAINT: Chronic cholecystitis HISTORY OF PRESENT ILLNESS: Patient sitting at bedside. She denies any abdominal pain. Denies any nausea or vomiting. Tolerating diet. Afebrile. Labs from yesterday total bilirubin down to 1.4 AST trending down from 88-60 ALT 114 down to 85 alk phos normal at 125 Patient seen and examined with Dr. haley PHYSICAL EXAM: VITAL SIGNS: Reviewed. GENERAL: Well-developed in no acute distress. HEENT: No sclera icterus. Extraocular movements grossly intact. Moist buccal mucosa. Head is atraumatic, normocephalic. ABDOMEN: Soft. Nondistended. Nontender. NEUROLOGIC: Alert and oriented. Cranial nerves II through XII grossly intact. ASSESSMENT: 1. Chronic cholecystitis. Wall thickening of the gallbladder on ultrasound with elevated liver enzymes PLAN: -No surgical intervention planned -Patient and family requesting no surgical intervention on gallbladder -Continue supportive care -Recommend low-fat diet -Patient can be discharged from surgical standpoint Physician Space Studies Faculty Member note has been reviewed by physician. Signing provider agrees with the documented findings, assessment, and plan of care. Objective - Vital Signs Vital signs: Vital Signs Temp 97.4 F L 02/13/22 11:59 Pulse 72 02/13/22 11:59 Resp 16 02/13/22 11:59 BP 158/68 02/13/22 11:59 Pulse Ox 92 L 02/13/22 11:59 FiO2 21 02/09/22 19:50 Intake & Output 02/12/22 02/13/22 02/13/22 18:59 06:59 18:59 Intake Total 356 200 Output Total 400 250 Balance 356 -200 -250 Intake: Oral 356 200 Output: Urine 400 Post Void Residual 250 Other: Voiding Method Indwelling Catheter Diaper Diaper # Voids 1 - Labs CBC & Chem 7: 02/09/22 11:21 02/12/22 09:55 Labs: Abnormal Lab Results - Last 24 Hours (Table) 02/12/22 02/12/22 02/13/22 Range/Units 17:11 20:09 06:01 POC Glucose (mg/dL) 66 L 173 H 54 L (70-110) mg/dL 02/13/22 Range/Units 06:24 POC Glucose (mg/dL) 159 H (70-110) mg/dL
--- NOTE | 2022-02-15 09:45 | P.DS ---
Providers Date of admission: 02/01/22 19:25 Expected date of discharge: 02/13/22 Attending physician: Marlena Latham Consults: 02/02/22 08:32 Consult Physician Urgent Consulting Provider: Mingo Lopez Consult Reason/Comments: Syncope Do you want consulting provider notified?: Yes 02/02/22 11:30 Consult Physician Urgent Consulting Provider: Singh Mccabe Consult Reason/Comments: UTI failed outpatient treatment Do you want consulting provider notified?: Yes 02/03/22 16:53 Consult Physician Routine Consulting Provider: Singh Mccabe Consult Reason/Comments: left foot wound Do you want consulting provider notified?: Yes 02/06/22 10:09 Consult Physician Urgent Consulting Provider: Choco Felix Consult Reason/Comments: worsening kidney functions Do you want consulting provider notified?: Yes 02/10/22 13:42 Consult Physician Routine Consulting Provider: Javier Catsro Consult Reason/Comments: Acute Ana María Do you want consulting provider notified?: Yes Primary care physician: Jacob Sanderson [facility] Course: Final diagnosis Syncope suspected secondary to hypotension Severe encephalopathy probably secondary to hospitalization related delirium. Possibly to UTI, CT brain was negative for acute process, improved COPD with acute exacerbation: Patient maintained on systemic steroids inhalational treatments Congestive heart failure chronic systolic dysfunction patient is not in acute exacerbation patient is volume depleted Chest pain most likely related to her COPD exacerbation Sepsis, present on admission secondary to acute urinary tract infection, with VRE, resolved Urinary retention, possibly secondary to UTI requiring indwelling Langston catheter on discharge and will need outpatient follow-up with urology Elevated transaminases with possible acute cholecystitis on abdominal ultrasound. Family/patient do not want surgical intervention at this time, IV zosyn has been added and monitoring liver enzymes. hypertension Insulin-dependent diabetes mellitus Depression Chronic atrial fibrillation on Eliquis History of coronary artery disease, status post bypass surgery History of CVA/TIA rheumatoid arthritis peripheral vascular disease status post stent in the right leg Chronic kidney disease stage III probably diabetic nephropathy DVT prophylaxis: On eliquis No code Discharge disposition Patient is being discharged in a stable condition with guarded prognosis to home with home care. Patient will follow-up with Dr. Sanderson in the outpatient setting upon discharge. Patient is to also follow-up with nephrology, urology, general surgery in the outpatient setting as scheduled. Patient is to continue on oral Augmentin twice daily for the next 7 days to complete the course per ID recommendations. Total time taken is greater than 35 minutes. Hospital course This is a 72-year-old female who was recently admitted with altered mental status increased confusion with weakness and multiple falls and clinical deterioration. Patient was followed by multiple consultations including nephrology and infectious disease. Patient also found to have acute kidney injury and initially discussing possible end-stage renal hemodialysis and patient was adamant in refusing along with family. Patient also marti with family and considering hospice. Patient showed improvement on bicarb drip along with infection being treated for UTI VRE and mentation significantly improved along with lab values. Patient would now like to go home with home care and family is agreeable. Patient had some mild urinary retention and difficulties emptying the bladder and urinary catheter was placed for discharge recommending outpatient urology follow-up. Patient strongly encouraged to follow-up with primary care provider along with nephrology and surgery as well. Incidental finding of abdominal pain with acute cholecystitis although patient refused any type of surgical intervention. Patient will be following up with surgery outpatient for further evaluation. Patient is to continue with local wound care to the left foot and will have home care along with following at the wound care center. Currently no reports of chest pain, shortness of breath, or palpitations. Patient is afebrile. No reports of nausea or vomiting and patient is tolerating diet. Patient will be discharged home today. Guarded prognosis. Physical exam: Gen: This is a 72-year-old female awake, alert and oriented 2-3, ill-appearing, elderly HEENT: Head is atraumatic, normocephalic. Pupils equal, round. Sclerae is anicteric. NECK: Supple. No JVD. No lymphadenopathy. No thyromegaly. LUNGS: Clear to auscultation. No wheezes or rhonchi. No intercostal retractions. HEART: Regular rate and rhythm. No murmur. ABDOMEN: Soft. Bowel sounds are present. No masses. No tenderness. EXTREMITIES: No pedal edema. No calf tenderness. Left foot with multiple chronic wounds and amputated toes, currently dressed and dry and intact NEUROLOGICAL: Patient is awake, alert and oriented x3. Cranial nerves 2 through 12 are grossly intact. Please refer to medication reconciliation sheet for a list of medications. The impression and plan of care has been dictated by Lauren Tonya, Nurse Practitioner as directed. Dr. René MD I have performed a history and examination and MDM of this patient, discussed the same with the dictator, and agree with the dictator's assessment and plan as written ,documented as a scribe. Based on total visit time, I have performed more than 50% of the visit. Patient Condition at Discharge: Fair Plan - Discharge Summary Discharge Rx Participant: Yes New Discharge Prescriptions: New Acetaminophen Tab [Tylenol] 650 mg PO Q6HR PRN tab PRN Reason: Mild Pain Or Fever > 100.5 Amoxic-Pot Clav 875-125Mg [Augmentin 875-125] 1 tab PO Q12HR 7 Days #14 tab amLODIPine [Norvasc] 5 mg PO DAILY 30 Days #30 tab Collagenase [Santyl Ointment] 1 applic TOPICAL DAILY 30 Days #1 each QUEtiapine [SEROquel] 25 mg PO HS 30 Days #30 tab Budesonide-Formot 160-4.5 Mcg [Symbicort 160-4.5 Mcg Inhaler] 2 puff I NHALATION RT-BID 30 Days #1 each Tamsulosin HCl [Flomax] 0.4 mg PO DAILY #30 capsule Ondansetron Odt [Zofran Odt] 4 mg PO Q8HR PRN #20 tab PRN Reason: Nausea Continue Insulin Glargine,Hum.rec.anlog [Lantus Solostar Pen] 8 unit SQ DAILY Ferrous Sulfate [Iron (65 MG Elemental)] 325 mg PO DAILY Cholecalciferol [Vitamin D3 (25 Mcg = 1000 Iu)] 25 mcg PO DAILY traMADol HCL 50 mg PO BID PRN PRN Reason: Pain Montelukast Sodium [Singulair] 10 mg PO HS DULoxetine HCL [Cymbalta] 60 mg PO DAILY Furosemide [Lasix] 20 mg PO Q48H Apixaban [Eliquis] 2.5 mg PO BID Lumateperone Tosylate [Caplyta] 42 mg PO DAILY Zinc Gluconate [Zinc] 50 mg PO DAILY Insulin Aspart [NovoLOG Flexpen] See Protocol SQ AC-TID Ascorbic Acid [Vitamin C] 1,000 mg PO DAILY Discontinued Metoprolol Tartrate [Lopressor] 25 mg PO HS Sulfamethox-Tmp 800-160Mg [Bactrim DS 800-160 mg] 1 tab PO BID Discharge Medication List Montelukast Sodium [Singulair] 10 mg PO HS 07/15/20 [History] DULoxetine HCL [Cymbalta] 60 mg PO DAILY 08/29/20 [History] Insulin Glargine,Hum.rec.anlog [Lantus Solostar Pen] 8 unit SQ DAILY 05/16/21 [History] Furosemide [Lasix] 20 mg PO Q48H 08/08/21 [History] Apixaban [Eliquis] 2.5 mg PO BID 11/01/21 [History] Lumateperone Tosylate [Caplyta] 42 mg PO DAILY 11/01/21 [History] Ascorbic Acid [Vitamin C] 1,000 mg PO DAILY 02/01/22 [History] Cholecalciferol [Vitamin D3 (25 Mcg = 1000 Iu)] 25 mcg PO DAILY 02/01/22 [History] Ferrous Sulfate [Iron (65 MG Elemental)] 325 mg PO DAILY 02/01/22 [History] Insulin Aspart [NovoLOG Flexpen] See Protocol SQ AC-TID 02/01/22 [History] Zinc Gluconate [Zinc] 50 mg PO DAILY 02/01/22 [History] traMADol HCL 50 mg PO BID PRN 02/01/22 [History] Acetaminophen Tab [Tylenol] 650 mg PO Q6HR PRN tab 02/12/22 [Rx] Amoxic-Pot Clav 875-125Mg [Augmentin 875-125] 1 tab PO Q12HR 7 Days #14 tab 02/12/22 [Rx] Budesonide-Formot 160-4.5 Mcg [Symbicort 160-4.5 Mcg Inhaler] 2 puff INHALATION RT-BID 30 Days #1 each 02/12/22 [Rx] Collagenase [Santyl Ointment] 1 applic TOPICAL DAILY 30 Days #1 each 02/12/22 [Rx] QUEtiapine [SEROquel] 25 mg PO HS 30 Days #30 tab 02/12/22 [Rx] amLODIPine [Norvasc] 5 mg PO DAILY 30 Days #30 tab 02/12/22 [Rx] Ondansetron Odt [Zofran Odt] 4 mg PO Q8HR PRN #20 tab 02/13/22 [Rx] Tamsulosin HCl [Flomax] 0.4 mg PO DAILY #30 capsule 02/13/22 [Rx] Follow up Appointment(s)/Referral(s): Lay Adan MD [STAFF PHYSICIAN] - 03/13/22 9:20 am [facility], [NON-STAFF] - Jacob Sanderson DO [Primary Care Provider] - 1-2 days (OFFICE WILL CALL WITH APPOINTMENT DATE AND TIME) Lucio Hanna MD [STAFF PHYSICIAN] - 02/20/22 8:00 am Javier Castro MD [STAFF PHYSICIAN] - 02/26/22 1:45 pm Ambulatory/Diagnostic Orders: Complete Blood Count w/diff [LAB.AMB] Time Frame: 3 Days, Location: None Selected Patient Instructions/Handouts: Low Fat Diet (DC), Low Fiber Diet (DC), Langston Catheter Placement and Care (DC) Activity/Diet/Wound Care/Special Instructions: Activity Limited until follow-up Follow-up with primary care provider on discharge Follow-up with nephrology outpatient in 1-2 weeks Continue taking medications as prescribed including antibiotics for the next 1 week Continue local wound care and follow-up at the wound care center for the left foot Continue low-fat low fiber consistent carb diet Follow-up with surgery in the outpatient setting Continue to encourage oral intake Patient will continue with indwelling Langston catheter for retention and follow-up with urology in the outpatient setting Repeat labs in 2-3 days Discharge Disposition: HOME SELF-CARE
== END 2022-02-13 15:46 | disposition home or self-care (01) | DRG 871 ==
LOC: EC 15:46 → 3SCARD 19:25
PROVIDERS: ADMIT Hospitalist; ATTEND Hospitalist
PROC: 05HY33Z Insertion of Infusion Device into Upper Vein, Percutaneous Approach (ICD-10-PCS; principal; 2022-02-06 13:05)
DX: A41.89 Other specified sepsis (principal); G92.8 Other toxic encephalopathy; N17.0 Acute kidney failure with tubular necrosis; E87.4 Mixed disorder of acid-base balance; I13.0 Hypertensive heart and chronic kidney disease with heart failure and stage 1 through stage 4 chronic kidney disease, or unspecified chronic kidney disease; I48.20 Chronic atrial fibrillation, unspecified; J44.1 Chronic obstructive pulmonary disease with (acute) exacerbation; I50.22 Chronic systolic (congestive) heart failure; N39.0 Urinary tract infection, site not specified; Z16.21 Resistance to vancomycin; Z16.24 Resistance to multiple antibiotics; I27.20 Pulmonary hypertension, unspecified; E11.51 Type 2 diabetes mellitus with diabetic peripheral angiopathy without gangrene; E11.22 Type 2 diabetes mellitus with diabetic chronic kidney disease; F32.A Depression, unspecified; M06.9 Rheumatoid arthritis, unspecified; N18.31 Chronic kidney disease, stage 3a; Z95.820 Peripheral vascular angioplasty status with implants and grafts; I08.1 Rheumatic disorders of both mitral and tricuspid valves; S09.90XA Unspecified injury of head, initial encounter; K81.1 Chronic cholecystitis; R16.0 Hepatomegaly, not elsewhere classified; E86.9 Volume depletion, unspecified; Z99.81 Dependence on supplemental oxygen; Z66 Do not resuscitate; I25.10 Atherosclerotic heart disease of native coronary artery without angina pectoris; E78.5 Hyperlipidemia, unspecified; I45.9 Conduction disorder, unspecified; D72.819 Decreased white blood cell count, unspecified; I25.5 Ischemic cardiomyopathy; N28.1 Cyst of kidney, acquired; R65.20 Severe sepsis without septic shock; E87.6 Hypokalemia; E87.5 Hyperkalemia; W01.10XA Fall on same level from slipping, tripping and stumbling with subsequent striking against unspecified object, initial encounter; B95.2 Enterococcus as the cause of diseases classified elsewhere; R79.89 Other specified abnormal findings of blood chemistry; R74.8 Abnormal levels of other serum enzymes; Z20.822 Contact with and (suspected) exposure to COVID-19; Y92.003 Bedroom of unspecified non-institutional (private) residence as the place of occurrence of the external cause; Z79.01 Long term (current) use of anticoagulants; Z79.84 Long term (current) use of oral hypoglycemic drugs; Z91.048 Other nonmedicinal substance allergy status; Z79.4 Long term (current) use of insulin; Z88.1 Allergy status to other antibiotic agents; Z89.411 Acquired absence of right great toe; Z86.73 Personal history of transient ischemic attack (TIA), and cerebral infarction without residual deficits; I25.2 Old myocardial infarction; Z95.1 Presence of aortocoronary bypass graft; Z89.422 Acquired absence of other left toe(s); Z87.891 Personal history of nicotine dependence; Z63.4 Disappearance and death of family member; Z87.440 Personal history of urinary (tract) infections; Z79.899 Other long term (current) drug therapy
CPT/HCPCS: 36410; 36415; 36600; 70450; 71045; 71046; 76705; 76770; 76937; 80048; 80053; 81001; 82607; 82746; 82805; 83036; 83735; 83880; 84132; 84145; 84443; 84484; 85025; 85027; 85610; 85730; 86140; 86701; 86704; 86803; 87077; 87086; 87186; 87340; 87635; 93005; 93308; 94640; 94760; 96360; 96361; 99285

== ENCOUNTER → 2022-02-18 | Outpatient (CLI) | payer MEDICARE, OTHER ==
[2022-02-18 18:25] LABS: HCT 35.2 % (37.2-46.3); HGB 10.9 g/dL (12.0-15.0); MCH 28.6 pg (27.0-32.0); MCV 92.4 fL (80.0-97.0); Mean Platelet Volume 9.7 fL (9.5-12.2); NRBC Per 100 WBC 0 /100 WBCS (0.0-0.0); Platelet Count 164 X 10*3/uL (140-440); RBC 3.81 X 10*6/uL (4.10-5.20); RDW 16.1 % (11.5-14.5); WBC 4.62 X 10*3/uL (4.50-10.00)
[2022-02-18 18:56] LABS: African American GFR (CKD) 37.2 (60.0-200.0); Anion Gap 15.1 mmol/L (10.00-18.00); BUN/Creat Ratio 9.43 Ratio (12.00-20.00); Blood Urea Nitrogen 14.9 mg/dL (9.0-27.0); Calcium 8.9 mg/dL (8.7-10.3); Carbon Dioxide 23.5 mmol/L (20.0-27.5); Non-African American GFR(CKD) 32.1 (60.0-200.0); Potassium 4.2 mmol/L (3.5-5.5)
== END | disposition home or self-care (01) ==
LOC: LABWHC1 13:27
PROVIDERS: ATTEND Registered Nurse
DX: Z00.00 Encounter for general adult medical examination without abnormal findings (principal)
CPT/HCPCS: 36415; 80048; 85027

== ENCOUNTER 2022-04-16 21:07 | Inpatient (IN) | payer MEDICARE, OTHER ==
[2022-04-16 21:19] LABS: Glucose,Whole Blood 186 mg/dL (70-110)
[2022-04-16] MEDS ORDERED: SODIUM CHLORIDE 0.9% 1,000 ML IV ONE (21:23)
--- NOTE | 2022-04-16 21:25 | ED ---
General Adult HPI - General Chief complaint: Altered Mental Status Stated complaint: Altered mental status Time Seen by Provider: 04/16/22 21:10 Source: patient, EMS, RN notes reviewed Mode of arrival: EMS Limitations: altered mental status - History of Present Illness Initial comments: Patient is a pleasant 72-year-old female presenting to the emergency department with concern with altered mental status. Patient is poor historian and offers no significant history. Family reportedly is going to come, none present at this time. Unclear patient has history of similar symptoms - Related Data Home Medications Medication Instructions Recorded Confirmed Montelukast Sodium [Singulair] 10 mg PO HS 07/15/20 02/01/22 DULoxetine HCL [Cymbalta] 60 mg PO DAILY 08/29/20 02/01/22 Insulin Glargine,Hum.rec.anlog 8 unit SQ DAILY 05/16/21 02/01/22 [Lantus Solostar Pen] Furosemide [Lasix] 20 mg PO Q48H 08/08/21 02/01/22 Apixaban [Eliquis] 2.5 mg PO BID 11/01/21 02/01/22 Lumateperone Tosylate [Caplyta] 42 mg PO DAILY 11/01/21 02/01/22 Cholecalciferol [Vitamin D3 (25 25 mcg PO DAILY 02/01/22 02/01/22 Mcg = 1000 Iu)] Ferrous Sulfate [Iron (65 MG 325 mg PO DAILY 02/01/22 02/01/22 Elemental)] Insulin Aspart [NovoLOG Flexpen] See Protocol SQ AC-TID 02/01/22 02/01/22 Zinc Gluconate [Zinc] 50 mg PO DAILY 02/01/22 02/01/22 traMADol HCL 50 mg PO BID PRN 02/01/22 02/01/22 Amiodarone [Cordarone] 200 mg PO DAILY@1100 04/16/22 04/16/22 Collagenase [Santyl Ointment] 1 applic TOPICAL DAILY@1100 04/16/22 04/16/22 Gabapentin [Neurontin] 300 mg PO HS PRN 04/16/22 04/16/22 Metoprolol Tartrate [Lopressor] 25 mg PO DAILY@1100 04/16/22 04/16/22 Ondansetron Odt [Zofran Odt] 4 mg PO Q8H PRN 04/16/22 04/16/22 amLODIPine [Norvasc] 10 mg PO DAILY@1100 04/16/22 04/16/22 Previous Rx's Medication Instructions Recorded Acetaminophen Tab [Tylenol] 650 mg PO Q6HR PRN tab 02/12/22 Allergies Allergy/AdvReac Type Severity Reaction Status Date / Time nickel Allergy Rash/Hives Verified 04/16/22 22:47 levofloxacin [From Levaquin] AdvReac Confusion Verified 04/16/22 22:47 Review of Systems ROS Statement: Those systems with pertinent positive or pertinent negative responses have been documented in the HPI. ROS Other: All systems not noted in ROS Statement are negative. Limitations: ROS unobtainable due to patients medical condition Constitutional: Reports: as per HPI Past Medical History Past Medical History: Asthma, Coronary Artery Disease (CAD), Heart Failure, COPD, CVA/TIA, Diabetes Mellitus, Hyperlipidemia, Hypertension, Pneumonia, Rheumatoid Arthritis (RA) Additional Past Medical History / Comment(s): left GREAT TOE WOUND, with current dressing, partial amputation on 06/28/20. going to hyperbaric chamber 5 days a week, PICC line right arm Last Myocardial Infarction Date:: 2014 History of Any Multi-Drug Resistant Organisms: VRE Date of last positivie culture/infection: 02/02/22 VRE MDRO Source:: Urine Past Surgical History: Adenoidectomy, Appendectomy, Coronary Bypass/CABG, Heart Catheterization, Tonsillectomy, Tubal Ligation Additional Past Surgical History / Comment(s): Open heart on April 13 2015, cabg X4, bilateral carotid endarterectomies,. Right great toe amputation 2014. stent in right leg above knee, elke cataracts. left toe ambutation, 06/18/20 Past Anesthesia/Blood Transfusion Reactions: Previous Problems w/ Anesthesia Additional Past Anesthesia/Blood Transfusion Reaction / Comment(s): diff b reathing afterwards Past Psychological History: No Psychological Hx Reported Smoking Status: Never smoker Past Alcohol Use History: None Reported Past Drug Use History: None Reported - Past Family History Father Family Medical History: Coronary Artery Disease (CAD), CVA/TIA, Diabetes Mellitus Mother Family Medical History: Myocardial Infarction ([place]) Additional Family Medical History / Comment(s): "spot on the lung" General Exam Limitations: altered mental status General appearance: alert, in no apparent distress Head exam: Present: atraumatic, normocephalic Eye exam: Present: normal appearance ENT exam: Present: mucous membranes dry Neck exam: Present: normal inspection. Absent: tenderness, meningismus Respiratory exam: Present: normal lung sounds bilaterally Cardiovascular Exam: Present: regular rate, normal rhythm GI/Abdominal exam: Present: soft. Absent: tenderness Neurological exam: Present: alert, other (Nonverbal. Not following commands. No focal deficit.) Psychiatric exam: Present: flat affect Skin exam: Present: normal color Course Vital Signs 04/16/22 04/16/22 21:12 21:21 Temperature 99.2 F Pulse Rate 77 Respiratory 22 Rate Blood Pressure 114/52 O2 Sat by Pulse 88 L 94 L Oximetry EKG Findings - EKG Results: EKG: interpreted by ERMD (Right axis. Moderate interventricular conduction delay. Nonspecific ST-T.) Medical Decision Making - Medical Decision Making Patient reevaluated. Family updated. Family states patient has not eaten much in the last 2 days and has been relatively nonverbal today. Case discussed with practitioner Krystal, covering for Dr. Latham, who will admit for Dr. Delong, who admits for Dr. Sanderson. Was pt. sent in by a medical professional or institution? @ -n Did you speak to anyone other than the patient for history? @ -Family provided history Did you review nursing and triage notes? @ -Yes and agree Were old charts reviewed? @ -n Differential Diagnosis? @ -Differential Altered Mental Status: Hypoglycemia, DKA, hypercapnia, ETOH, overdose, CO poisoning, trauma, myxedema coma, HTN encephalopathy, infection, encephalitis, psychosis, intercranial hemorrhage, hepatic encephalopathy, meningitis, CVA, this is not meant to be an all-inclusive list EKG interpreted by me (3pts min.)? @ -y X-rays interpreted by me (1pt min.)? @ -y CT interpreted by me (1pt min.)? @ -n U/S interpreted by me (1pt. min.)? @ -[none] What testing was considered but not performed? (CT, X-rays, U/S, labs)? Why? @ What meds were considered but not given? Why? @ -[none] Did you discuss the management of the patient with other professionals? @ -Spoke with practitioner Did you reconcile home meds? @ -Will review and reconcile felt Was smoking cessation discussed for >3mins.? @ -[none] Was critical care preformed (if so, how long)? @ -[none] Were there social determinants of health that impacted care today? How? (Homelessness, low income, unemployed, alcoholism, drug addiction, transportation, low edu. Level, literacy, decrease access to med. care, prison, rehab)? @ - Was there de-escalation of care discussed even if they declined? (Discuss DNR or withdrawal of care, Hospice)? @ -[Discuss DNR or withdrawal of care, Hospice?] What co-morbidities impacted this encounter? (DM, HTN, Smoking, COPD, CAD, Cancer, CVA, Hep., AIDS, mental health diagnosis, sleep apnea, morbid obesity)? @ - Was patient admitted / discharged? @ -Patient admitted Undiagnosed new problem with uncertain prognosis? @ -Undiagnosed new problem with uncertain prognosis Drug Therapy requiring intensive monitoring for toxicity (Heparin, Nitro, Insulin, Cardizem)? @ -[none] Were any procedures done? @ -[none] Diagnosis/symptom? @ -Altered mental status Acute, or Chronic, or Acute on Chronic? @ -Acute Uncomplicated (without systemic symptoms) or Complicated (systemic symptoms)? @ Side effects of treatment? @ -[none] Exacerbation, Progression, or Severe Exacerbation] @ -[no] Poses a threat to life or bodily function? @ -y - Lab Data Result diagrams: 04/16/22 21:25 04/16/22 21:25 Lab Results 04/16/22 04/16/22 04/16/22 Range/Units 21:17 21:25 21:25 WBC 6.8 (3.8-10.6) k/uL RBC 3.51 L (3.80-5.40) m/uL Hgb 10.6 L (11.4-16.0) gm/dL Hct 32.6 L (34.0-46.0) % MCV 92.8 (80.0-100.0) fL MCH 30.1 (25.0-35.0) pg MCHC 32.5 (31.0-37.0) g/dL RDW 15.4 (11.5-15.5) % Plt Count 216 (150-450) k/uL MPV 9.5 Neutrophils % (Manual) 73 % Band Neuts % (Manual) 22 % Lymphocytes % (Manual) 2 % Monocytes % (Manual) 4 % Eosinophils % (Manual) 1 % Neutrophils # (Manual) 6.40 (1.3-7.7) k/uL Lymphocytes # (Manual) 0.14 L (1.0-4.8) k/uL Monocytes # (Manual) 0.27 (0-1.0) k/uL Eosinophils # (Manual) 0.07 (0-0.7) k/uL Nucleated RBCs 0 (0-0) /100 WBC Manual Slide Review Performed Toxic Granulation Present Toxic Vacuolation Present Polychromasia Present Hypochromasia Moderate PT 12.4 H (9.0-12.0) sec INR 1.2 H (<1.2) APTT 28.0 (22.0-30.0) sec Sodium (137-145) mmol/L Potassium (3.5-5.1) mmol/L Chloride (98-107) mmol/L Carbon Dioxide (22-30) mmol/L Anion Gap mmol/L BUN (7-17) mg/dL Creatinine (0.52-1.04) mg/dL Est GFR (CKD-EPI)AfAm (>60 ml/min/1.73 sqM) Est GFR (CKD-EPI)NonAf (>60 ml/min/1.73 sqM) Glucose (74-99) mg/dL POC Glucose (mg/dL) 186 H (70-110) mg/dL POC Glu [employer] Manager ID Kong Burnett Calcium (8.4-10.2) mg/dL Total Bilirubin (0.2-1.3) mg/dL AST (14-36) U/L ALT (4-34) U/L Alkaline Phosphatase (38-126) U/L Troponin I (0.000-0.034) ng/mL Total Protein (6.3-8.2) g/dL Albumin (3.5-5.0) g/dL Urine Color Urine Appearance (Clear) Urine pH (5.0-8.0) Ur Specific [place] (1.001-1.035) Urine Protein (Negative) Urine Glucose (UA) (Negative) Urine Ketones (Negative) Urine Blood (Negative) Urine Nitrite (Negative) Urine Bilirubin (Negative) Urine Urobilinogen (<2.0) mg/dL Ur Leukocyte Esterase (Negative) Urine RBC (0-5) /hpf Urine WBC (0-5) /hpf Hyaline Casts (0-2) /lpf Urine Mucus (None) /hpf Influenza Type A (PCR) (Not Detectd) Influenza Type B (PCR) (Not Detectd) RSV (PCR) (Not Detectd) SARS-CoV-2 (PCR) (Not Detectd) 04/16/22 04/16/22 04/16/22 Range/Units 21:25 21:25 21:25 WBC (3.8-10.6) k/uL RBC (3.80-5.40) m/uL Hgb (11.4-16.0) gm/dL Hct (34.0-46.0) % MCV (80.0-100.0) fL MCH (25.0-35.0) pg MCHC (31.0-37.0) g/dL RDW (11.5-15.5) % Plt Count (150-450) k/uL MPV Neutrophils % (Manual) % Band Neuts % (Manual) % Lymphocytes % (Manual) % Monocytes % (Manual) % Eosinophils % (Manual) % Neutrophils # (Manual) (1.3-7.7) k/uL Lymphocytes # (Manual) (1.0-4.8) k/uL Monocytes # (Manual) (0-1.0) k/uL Eosinophils # (Manual) (0-0.7) k/uL Nucleated RBCs (0-0) /100 WBC Manual Slide Review Toxic Granulation Toxic Vacuolation Polychromasia Hypochromasia PT (9.0-12.0) sec INR (<1.2) APTT (22.0-30.0) sec Sodium 133 L (137-145) mmol/L Potassium 4.7 (3.5-5.1) mmol/L Chloride 103 (98-107) mmol/L Carbon Dioxide 17 L (22-30) mmol/L Anion Gap 13 mmol/L BUN 47 H (7-17) mg/dL Creatinine 2.45 H (0.52-1.04) mg/dL Est GFR (CKD-EPI)AfAm 22 (>60 ml/min/1.73 sqM) Est GFR (CKD-EPI)NonAf 19 (>60 ml/min/1.73 sqM) Glucose 172 H (74-99) mg/dL POC Glucose (mg/dL) (70-110) mg/dL POC Glu Fast Food Manager ID Calcium 7.6 L (8.4-10.2) mg/dL Total Bilirubin 2.7 H (0.2-1.3) mg/dL AST 27 (14-36) U/L ALT 12 (4-34) U/L Alkaline Phosphatase 135 H (38-126) U/L Troponin I 0.016 (0.000-0.034) ng/mL Total Protein 6.6 (6.3-8.2) g/dL Albumin 3.4 L (3.5-5.0) g/dL Urine Color Dark Yellow Urine Appearance Cloudy H (Clear) Urine pH 5.5 (5.0-8.0) Ur Specific [place] 1.014 (1.001-1.035) Urine Protein 2+ H (Negative) Urine Glucose (UA) Negative (Negative) Urine Ketones Negative (Negative) Urine Blood Negative (Negative) Urine Nitrite Negative (Negative) Urine Bilirubin 1+ H (Negative) Urine Urobilinogen 12.0 (<2.0) mg/dL Ur Leukocyte Esterase Small H (Negative) Urine RBC 18 H (0-5) /hpf Urine WBC 3 (0-5) /hpf Hyaline Casts 36 H (0-2) /lpf Urine Mucus Rare H (None) /hpf Influenza Type A (PCR) (Not Detectd) Influenza Type B (PCR) (Not Detectd) RSV (PCR) (Not Detectd) SARS-CoV-2 (PCR) (Not Detectd) 04/16/22 Range/Units 21:25 WBC (3.8-10.6) k/uL RBC (3.80-5.40) m/uL Hgb (11.4-16.0) gm/dL Hct (34.0-46.0) % MCV (80.0-100.0) fL MCH (25.0-35.0) pg MCHC (31.0-37.0) g/dL RDW (11.5-15.5) % Plt Count (150-450) k/uL MPV Neutrophils % (Manual) % Band Neuts % (Manual) % Lymphocytes % (Manual) % Monocytes % (Manual) % Eosinophils % (Manual) % Neutrophils # (Manual) (1.3-7.7) k/uL Lymphocytes # (Manual) (1.0-4.8) k/uL Monocytes # (Manual) (0-1.0) k/uL Eosinophils # (Manual) (0-0.7) k/uL Nucleated RBCs (0-0) /100 WBC Manual Slide Review Toxic Granulation Toxic Vacuolation Polychromasia Hypochromasia PT (9.0-12.0) sec INR (<1.2) APTT (22.0-30.0) sec Sodium (137-145) mmol/L Potassium (3.5-5.1) mmol/L Chloride (98-107) mmol/L Carbon Dioxide (22-30) mmol/L Anion Gap mmol/L BUN (7-17) mg/dL Creatinine (0.52-1.04) mg/dL Est GFR (CKD-EPI)AfAm (>60 ml/min/1.73 sqM) Est GFR (CKD-EPI)NonAf (>60 ml/min/1.73 sqM) Glucose (74-99) mg/dL POC Glucose (mg/dL) (70-110) mg/dL POC Glu Fast Food Manager ID Calcium (8.4-10.2) mg/dL Total Bilirubin (0.2-1.3) mg/dL AST (14-36) U/L ALT (4-34) U/L Alkaline Phosphatase (38-126) U/L Troponin I (0.000-0.034) ng/mL Total Protein (6.3-8.2) g/dL Albumin (3.5-5.0) g/dL Urine Color Urine Appearance (Clear) Urine pH (5.0-8.0) Ur Specific [place] (1.001-1.035) Urine Protein (Negative) Urine Glucose (UA) (Negative) Urine Ketones (Negative) Urine Blood (Negative) Urine Nitrite (Negative) Urine Bilirubin (Negative) Urine Urobilinogen (<2.0) mg/dL Ur Leukocyte Esterase (Negative) Urine RBC (0-5) /hpf Urine WBC (0-5) /hpf Hyaline Casts (0-2) /lpf Urine Mucus (None) /hpf Influenza Type A (PCR) Not Detected (Not Detectd) Influenza Type B (PCR) Not Detected (Not Detectd) RSV (PCR) Not Detected (Not Detectd) SARS-CoV-2 (PCR) Not Detected (Not Detectd) - Radiology Data Radiology results: report reviewed (CT reveals no acute process) Interpreted by me: Chest x-ray does show some increase in interstitial markings/congestion. Disposition Clinical Impression: Altered mental status Disposition: ADMITTED IP TO THIS HOSP Is patient prescribed a controlled substance at d/c from ED?: No Referrals: Jacob Sanderson DO [Primary Care Provider] - 1-2 days Time of Disposition: 22:53
[2022-04-16 21:40] LABS: HCT 32.6 % (34.0-46.0); HGB 10.6 gm/dL (11.4-16.0); Hypochromasia Moderate; MCH 30.1 pg (25.0-35.0); MCHC 32.5 g/dL (31.0-37.0); MCV 92.8 fL (80.0-100.0); Mean Platelet Volume 9.5; Platelet Count 216 k/uL (150-450); RBC 3.51 m/uL (3.80-5.40); RDW 15.4 % (11.5-15.5); WBC 6.8 k/uL (3.8-10.6)
[2022-04-16 21:50] LABS: Calcium 7.6 mg/dL (8.4-10.2)
[2022-04-16 21:54] LABS: Appearance,Urine Cloudy (Clear); Bilirubin,Urine 1+ (Negative); Blood,Urine Negative (Negative); Color,Urine Dark Yellow; Glucose,Urine (UA) Negative (Negative); Hyaline Casts,Urine 36 /lpf (0-2); Ketones,Urine Negative (Negative); Leukocyte Esterase,Urine Small (Negative); Mucus,Urine Rare /hpf; Nitrite,Urine Negative (Negative); PH, Urine 5.5 (5.0-8.0); Protein,Urine 2+ (Negative); RBC,Urine 18 /hpf (0-5); Specific Gravity,Urine 1.014 (1.001-1.035); WBC,Urine 3 /hpf (0-5)
[2022-04-16 21:56] LABS: Albumin 3.4 g/dL (3.5-5.0); Potassium 4.7 mmol/L (3.5-5.1); Total Bilirubin 2.7 mg/dL (0.2-1.3); Total Protein 6.6 g/dL (6.3-8.2)
[2022-04-16 21:58] LABS: INR 1.2 (<1.2); Prothrombin Time 12.4 sec (9.0-12.0)
--- NOTE | 2022-04-16 22:00 | XR ---
EXAMINATION TYPE: XR chest 2V DATE OF EXAM: 04/16/2022 COMPARISON: 02/04/2022 HISTORY: Altered mental status TECHNIQUE: Single view FINDINGS: Heart is slightly enlarged. There is mild pulmonary vascular congestion. There are sternal wires. There is mild blunting of the costophrenic angles. There are no hilar masses. Bony thorax is i ntact. IMPRESSION: There is evidence for some mild heart failure which is new compared to the old exam.
--- NOTE | 2022-04-16 22:22 | CT ---
EXAMINATION TYPE: CT brain wo con DATE OF EXAM: 04/16/2022 COMPARISON: 02/01/2022 HISTORY: AMS CT DLP: 1099.4 mGycm Automated exposure control for dose reduction was used. There is cerebral cortical atrophy. There is a 4 x 2.5 cm area of cortical hypodensity right posterio r temporal lobe and occipital lobe. There is no mass effect or midline shift. No evidence of intracra nial hemorrhage. Sella turcica is normal. Calvarium is intact. IMPRESSION: Old right temporal occipital cortical infarct without change. No acute intracranial abnormality. Cere bral atrophy.
[2022-04-16 22:32] LABS: Band Neutrophils % 22 %; Eosinophils # (M) 0.07 k/uL (0-0.7); Lymphocytes # (M) 0.14 k/uL (1.0-4.8); Monocytes # (M) 0.27 k/uL (0-1.0); Neutrophils % (M) 73 %; Nucleated Red Blood Cells 0 /100 WBC (0-0); Total Cells Counted 200
[2022-04-16 22:33] LABS: Polychromasia Present; Toxic Granulation Present; Toxic Vacuolation Present
[2022-04-16] MEDS ORDERED: NALOXONE 0.4 MG/ML 1 ML VIAL IV PRN (22:54)
[2022-04-16] MEDS ORDERED: GABAPENTIN 300 MG CAP PO PRN (22:55)
[2022-04-16] MEDS ORDERED: ACETAMINOPHEN TAB 325 MG TAB PO PRN (22:55)
[2022-04-16] MEDS ORDERED: ACETAMINOPHEN IV (For NPO) 1,000 MG in EMPTY BAG 1 BAG IVPB ONE (23:00)
--- NOTE | 2022-04-16 23:35 | XR ---
EXAMINATION TYPE: XR foot limited LT DATE OF EXAM: 04/16/2022 COMPARISON: 11/01/2021 HISTORY: Wound. Amputation. TECHNIQUE: 2 views FINDINGS: There is amputation of the first second and third toes at the MP joints. There is some soft tissue deformity consistent with ulceration at the distal first metatarsal. There is no fracture nor dislocation. There is some erosion of the fifth metatarsal head. There are some erosions of the thir d metatarsal head. There is some lucency in the distal phalanx of the fourth toe. IMPRESSION: Erosions in the third and fifth metatarsal heads could relate to some osteomyelitis and i s a change compared to old exam. Amputation deformities. There is some destructive changes of the distal phalanx of the fourth toe and consistent with osteomy elitis compared to old exam.
[2022-04-16] MEDS: SODIUM CHLORIDE 0.9% 1,000 ML IV SCH (23:40)
[2022-04-16] MEDS: PANTOPRAZOLE 40 MG/10 ML VIAL IV SCH (23:45)
[2022-04-17 00:32] LABS: Glucose,Whole Blood 177 mg/dL (70-110)
[2022-04-17 04:42] LABS: HCT 29.1 % (34.0-46.0); HGB 9.3 gm/dL (11.4-16.0); Hypochromasia Marked; MCH 29.9 pg (25.0-35.0); MCV 93.7 fL (80.0-100.0); Platelet Count 193 k/uL (150-450); RBC 3.11 m/uL (3.80-5.40); RDW 15.7 % (11.5-15.5); WBC 9.4 k/uL (3.8-10.6)
[2022-04-17 04:54] LABS: Calcium 7.4 mg/dL (8.4-10.2); Total Bilirubin 2.7 mg/dL (0.2-1.3)
[2022-04-17 05:00] LABS: Potassium 4.1 mmol/L (3.5-5.1)
[2022-04-17 06:41] LABS: Anisocytosis (M) Present; Band Neutrophils % 42 %; Lymphocytes # (M) 1.13 k/uL (1.0-4.8); Monocytes # (M) 0.09 k/uL (0-1.0); Neutrophils % (M) 46 %; Nucleated Red Blood Cells 0 /100 WBC (0-0); Total Cells Counted 200
[2022-04-17 06:42] LABS: Poikilocytosis (M) Present
--- NOTE | 2022-04-17 12:54 | P.CNNES ---
History of Present Illness Consult date: 04/17/22 Requesting physician: Jerry Marie Reason for Consult: altered mental status History of Present Illness: This is a 72-year-old woman with multiple medical problems, consisting of multiple strokes, bilateral carotid stenosis s/p endartectomy, DM, DM neuropathy, PAD, Atrial fibrillation on eliquis, CAD s/p CABG who presented to the emergency department because of altered mental status. History is obtained from daughter who is at bedside. According to the daughter yesterday she saw her mother 12ish pm and was doing well. Then around 8ish pm yesterday she was found slumped over sitting and not responding. Daughter did not notice any jerking of any extremity or foaming around the mouth. According to the daughter she would have the episode of opening her eyes but not responding. No fixed eye gaze deviation. No history of seizures. No new focal weakness numbness. Patient denies any focal weakness, headache any nausea any vomiting. Patient is on home dose medication of eliquis 2.5mg 1 tab bid and not missed her medication. She is not on any statins and not sure why especially with significant cardiovascular and stroke history. Of note according to the daughter patient was seen in the past by Dr. Gracia for neurological management. She had a thorough stroke workup in the past in the hospital as well as by her neurologist according to the daughter. Some of the workup during his hospital visit consisted of: Initial vital signs is a blood pressure of 114/52, heart rate of 77, respiratory 22, temperature of 99.2 Fahrenheit axillary and pulse ox of 88% room air. His white blood cells 6.8 thousand POC glucose is 186, sodium is 133, creatinine is 2.45 BUN is 47, calcium 7.6, ammonia is less than 9. Urinalysis does not appear urinary tract infection Darden virus PCR was not detected that. RSV is nondetected and influenza A/P is not intact To give the head is reported as old right temporal occipital cortical infarct without change. No acute intracranial abnormality. Cerebral atrophy. I p ersonally reviewed the CT of the head and I agree the with a report Review of Systems Review of system: The 12 point system was reviewed and apparent positive and ne gative per HPI. Past Medical History Past Medical History: Asthma, Coronary Artery Disease (CAD), Heart Failure, COPD, CVA/TIA, Diabetes Mellitus, Hyperlipidemia, Hypertension, Pneumonia, Rheumatoid Arthritis (RA) Additional Past Medical History / Comment(s): left GREAT TOE WOUND, with current dressing, partial amputation on 06/28/20. going to hyperbaric chamber 5 days a week, PICC line right arm Last Myocardial Infarction Date:: 2014 History of Any Multi-Drug Resistant Organisms: VRE Date of last positivie culture/infection: 02/02/22 VRE MDRO Source:: Urine Past Surgical History: Adenoidectomy, Appendectomy, Coronary Bypass/CABG, Heart Catheterization, Tonsillectomy, Tubal Ligation Additional Past Surgical History / Comment(s): Open heart on April 13 2015, cabg X4, bilateral carotid endarterectomies,. Right great toe amputation 2015. stent in right leg above knee, elke cataracts. left toe ambutation, 06/18/20 Past Anesthesia/Blood Transfusion Reactions: Previous Problems w/ Anesthesia Additional Past Anesthesia/Blood Transfusion Reaction / Comment(s): diff breathing afterwards Past Psychological History: No Psychological Hx Reported Smoking Status: Never smoker Past Alcohol Use History: None Reported Past Drug Use History: None Reported - Past Family History Father Family Medical History: Coronary Artery Disease (CAD), CVA/TIA, Diabetes M ellitus Mother Family Medical History: Myocardial Infarction ([place]) Additional Family Medical History / Comment(s): "spot on the lung" Medications and Allergies Home Medications Medication Instructions Recorded Confirmed Type Montelukast Sodium [Singulair] 10 mg PO HS 07/15/20 04/16/22 History DULoxetine HCL [Cymbalta] 60 mg PO DAILY@1100 08/29/20 04/16/22 History Insulin Glargine,Hum.rec.anlog 8 unit SQ DAILY@1100 05/16/21 04/16/22 History [Lantus Solostar Pen] Furosemide [Lasix] 20 mg PO DAILY@1100 08/08/21 04/16/22 History Apixaban [Eliquis] 2.5 mg PO BID@1100,209911/01/21 04/16/22 History Lumateperone Tosylate [Caplyta] 42 mg PO DAILY@1100 11/01/21 04/16/22 History Cholecalciferol [Vitamin D3 (25 25 mcg PO DAILY@1100 02/01/22 04/16/22 History Mcg = 1000 Iu)] Ferrous Sulfate [Iron (65 MG 325 mg PO DAILY@109902/01/22 04/16/22 History Elemental)] Insulin Aspart [NovoLOG Flexpen] See Protocol SQ AC-TID 02/01/22 04/16/22 History Zinc Gluconate [Zinc] 50 mg PO DAILY@109902/01/22 04/16/22 History traMADol HCL 50 mg PO BID PRN 02/01/22 04/16/22 History Acetaminophen Tab [Tylenol] 650 mg PO Q6HR PRN tab 02/12/22 04/16/22 Rx Amiodarone [Cordarone] 200 mg PO DAILY@109904/16/22 04/16/22 History Collagenase [Santyl Ointment] 1 applic TOPICAL DAILY@109904/16/22 04/16/22 History Gabapentin [Neurontin] 300 mg PO HS PRN 04/16/22 04/16/22 History Metoprolol Tartrate [Lopressor] 25 mg PO DAILY@109904/16/22 04/16/22 History Ondansetron Odt [Zofran Odt] 4 mg PO Q8H PRN 04/16/22 04/16/22 History amLODIPine [Norvasc] 10 mg PO DAILY@109904/16/22 04/16/22 History Allergies Allergy/AdvReac Type Severity Reaction Status Date / Time nickel Allergy Rash/Hives Verified 04/16/22 22:47 levofloxacin [From Levaquin] AdvReac Confusion Verified 04/16/22 22:47 Physical Examination - Vital Signs Vital Signs: Vital Signs Temp Pulse Resp BP Pulse Ox 04/17/22 08:19 98 04/17/22 08:00 74 18 113/54 93 L 04/17/22 07:00 99 18 113/54 93 L 04/17/22 04:39 69 16 121/59 92 L 04/17/22 03:02 72 18 114/50 93 L 04/17/22 01:22 98.4 F 04/17/22 00:18 98.0 F 04/16/22 23:50 99.1 F 84 95 H 117/63 95 04/16/22 21:21 94 L 04/16/22 21:12 99.2 F 77 22 114/52 88 L Intake and Output 01/03/23 01/04/23 01/04/23 22:59 06:59 14:59 Other: Weight 72.575 kg GENERAL: The patient is lying in bed and is not in acute distress. CHEST: The heart rate is regular rate rhythm. No murmurs to auscultation. Has old scar on the left neck from surgery. LUNG: Clear to auscultation bilaterally no wheezing noted throughout. Not labored breathing. ABDOMEN/GI: Bowel sounds present in all 4 quadrants. No tenderness to palpation throughout. NEUROLOGICAL: Higher mental function: The patient is awake, alert, oriented to self, place and time. Patient is following simple commands. No aphasia and no neglect. Cranial nerves: The pupils are round, equal and reactive to light and accommodation. Visual briscoe are full to confrontation throughout. Extraocular movement is intact no nystagmus is noted. Facial sensation is normal to touch throughout. The facial strength is normal throughout. Hearing is normal bilat erally to hand rub. Tongue is midline and moved [id number] without any difficulty. No dysarthria is noted. Shoulder shrug is normal bilaterally. Motor: The strength is 5 over 5 throughout. Normal tone and bulk. Has amputation in the toes of bilateral feet. Cerebellum: Normal finger to nose bilaterally. Sensation: Sensation is normal to touch throughout. Reflexes (right/left):1+ throughout. Results - Laboratory Findings CBC and BMP: 04/17/22 03:49 04/17/22 03:49 Abnormal Lab Findings: Abnormal Labs 04/16/22 04/16/22 04/16/22 21:17 21:25 21:25 RBC 3.51 L Hgb 10.6 L Hct 32.6 L RDW Neutrophils # (Manual) Lymphocytes # (Manual) 0.14 L PT 12.4 H INR 1.2 H Sodium Carbon Dioxide BUN Creatinine Glucose POC Glucose (mg/dL) 186 H Calcium Total Bilirubin Alkaline Phosphatase Total Protein Albumin Urine Appearance Urine Protein Urine Bilirubin Ur Leukocyte Esterase Urine RBC Hyaline Casts Urine Mucus 04/16/22 04/16/22 04/17/22 21:25 21:25 00:31 RBC Hgb Hct RDW Neutrophils # (Manual) Lymphocytes # (Manual) PT INR Sodium 133 L Carbon Dioxide 17 L BUN 47 H Creatinine 2.45 H Glucose 172 H POC Glucose (mg/dL) 177 H Calcium 7.6 L Total Bilirubin 2.7 H Alkaline Phosphatase 135 H Total Protein Albumin 3.4 L Urine Appearance Cloudy H Urine Protein 2+ H Urine Bilirubin 1+ H Ur Leukocyte Esterase Small H Urine RBC 18 H Hyaline Casts 36 H Urine Mucus Rare H 04/17/22 04/17/22 03:49 03:49 RBC 3.11 L Hgb 9.3 L Hct 29.1 L RDW 15.7 H Neutrophils # (Manual) 8.20 H Lymphocytes # (Manual) PT INR Sodium 135 L Carbon Dioxide 18 L BUN 51 H Creatinine 2.81 H Glucose 143 H POC Glucose (mg/dL) Calcium 7.4 L Total Bilirubin 2.7 H Alkaline Phosphatase Total Protein 6.0 L Albumin 3.0 L Urine Appearance Urine Protein Urine Bilirubin Ur Leukocyte Esterase Urine RBC Hyaline Casts Urine Mucus Assessment and Plan Assessment: Altered mental status. Encephalopathy of unknown exact etiology but I am concerned of non-convulsive seizure (especially since has old stroke that increase risk of seizure)---currently back to baseline. Multiple strokes. CT of the head shows old right occipital temporal encephalomalacia History of bilateral carotid stenosis status post endarterectomy (but I see only scar on left and not right and feel possibly right had stent). Diabetes mellitus Diabetic neuropathy Peripheral artery disease Atrial fibrillation on eliquis Coronary artery disease status post CABG Chronic kidney insufficiency Amputation in toes of bilateral feet due to PAD and DM Plan: * I ordered a routine EEG to rule out any active seizure or epileptiform discharges. If no seizure or discharges is noted then recommend a prolonged EEG as an outpatient. * According to the daughter, she does not have any history of seizure. Since t his is the first episode of severely confusion that resolved concerning for possible nonconvulsive seizure the daughter wants to hold medication for now if she has repeated episodes will consider antiepileptic drug. * I ordered ionized calcium * Patient had a TSH, vitamin B12, folate and January 2022 checked which were within normal limits. I am neck and a repeat them since they are relatively recent. * Recommend restarting her eliquis. Commence statin especially with significant cardiovascular/stroke history. Recommend Lipitor 40 mg daily from neurological perspective. * Defer the rest of the medical management to primary team * Recommend the patient follow up with a neurologist as an outpatient within 1-2 weeks. Plan discussed with the patient and her daughter was at bedside Thank you for the consultation Time with Patient: Greater than 30
[2022-04-17] MEDS: PANTOPRAZOLE 40 MG/10 ML VIAL IV SCH (13:10)
[2022-04-17] MEDS: SODIUM CHLORIDE 0.9% 1,000 ML IV SCH (13:10)
[2022-04-17] MEDS: PIPERACILLIN-TAZOBACTAM 3.375 GM in SODIUM CHLORIDE 0.9% 100 ML IVPB SCH (13:11)
[2022-04-17] MEDS: AMIODARONE 200 MG TAB PO SCH (13:14)
[2022-04-17] MEDS: DULoxetine HCL 60 MG CAPSULE.DR PO SCH (13:14)
[2022-04-17] MEDS: amLODIPine 10 MG TAB PO SCH (13:15)
[2022-04-17] MEDS: METOPROLOL TARTRATE 25 MG TAB PO SCH (13:15)
--- NOTE | 2022-04-17 13:15 | HP ---
HISTORY AND PHYSICAL CHIEF COMPLAINT: Change in mental status as well as infection of the left foot. HISTORY OF PRESENT ILLNESS: This 72-year-old woman with a past medical history of multiple medical problems, including CAD, asthma, COPD, being followed by Dr. Gregory in the outpatient setting, had worsening of the left foot infection recently. The patient was taken to [facility] and the patient was seen by Dr. Sanderson also in the outpatient setting. The patient was admitted for further evaluation and treatment. Creatinine is 2.81. There is no history of any fever, rigors, or chills at this time. PAST MEDICAL HISTORY: Reviewed include asthma, CAD, rest of the history and rest of the chart is reviewed. HOME MEDICATIONS: Reviewed include Cordarone, doses and rest of medications noted. ALLERGIES: Reviewed include nickel. FAMILY HISTORY: Reviewed include CAD. SOCIAL HISTORY: No history of smoking, no history of alcohol. REVIEW OF SYSTEMS: A 14-point review is negative except as mentioned earlier. PHYSICAL EXAMINATION: VITAL SIGNS: Pulse is 99, blood pressure 135/54, respirations 18. HEENT: Conjunctivae normal. NECK: No jugular venous distention, no carotid bruit. RESPIRATIONS: Breath sounds diminished at the bases, a few scattered rhonchi. ABDOMEN: Soft, nontender. LEGS: Left leg infection, cellulitis and swelling also present status post amputation of the toes. NERVOUS SYSTEM: No focal deficits, no skin rash as mentioned earlier. JOINTS: No active deforming arthropathy. LABORATORY DATA: Reviewed as mentioned. ASSESSMENT: 1. Left foot infection, rule out osteomyelitis. 2. Coronary artery disease. 3. Chronic obstructive pulmonary disease. 4. Cerebrovascular accident. 5. Diabetes mellitus. 6. Type 2 hypertension. 7. Hyperlipidemia. 8. Multiple medical issues. RECOMMENDATIONS: This is a 72-year-old woman who presented with multiple complex medical issues, we will monitor the patient closely, initiate broad-spectrum IV antibiotics. I would also recommend evaluation with vascular surgery, Infectious Disease, broad-spectrum IV antibiotics and Dr. Baig is also consulted for change in mental status. We will continue to monitor. Prognosis guarded. Further recommendations to follow. MMODL / IJN: [id number] /
[2022-04-17] MEDS ORDERED: DEXTROSE 50% SYRINGE 50 ML IVP PRN (16:35)
[2022-04-17] MEDS: INSULIN ASPART (NovoLOG) 100 UNIT/ML VIAL SQ SCH ×2 (17:16→20:19)
[2022-04-17 19:29] LABS: Glucose,Whole Blood 203 mg/dL (70-110)
--- NOTE | 2022-04-17 20:36 | EEG ---
ELECTROENCEPHALOGRAM REPORT CLINICAL HISTORY: This is a 72-year-old woman with history of stroke, who presented because of confusion at home. The video EEG is obtained to evaluate for seizure and epileptiform activity. RELEVANT MEDICATIONS: The patient is not on any antiepileptic drugs. EEG TYPE: A routine 21-channel EEG is performed with video using the 10/20 electrode placement system. DESCRIPTION: Wakefulness is only obtained. During awake state, the posterior-dominant rhythm consists of [id number] voltage of 5.5 to 6 hertz activity that is well modulated, well sustained. There is no physiological sleep architecture seen. There is no focal slowing. There is moderate amount of predominantly left hemispheric myogenic artifact. Interictal and ictal is none. ACTIVATION PROCEDURE: Photic stimulation did not evoke a posterior driving response. There is no abnormality during the photic stimulation. Hyperventilation is not performed. CLINICAL INTERPRETATION: This is an abnormal routine EEG. The background slowing is suggestive of mild-to- moderate encephalopathy. Otherwise, there is no focal slowing, epileptiform discharge, or seizure on the EEG. Clinical correlation is recommended. MMODL / IJN: [id number] /
[2022-04-18] MEDS: PIPERACILLIN-TAZOBACTAM 3.375 GM in SODIUM CHLORIDE 0.9% 100 ML IVPB SCH ×2 (00:09→12:19)
--- NOTE | 2022-04-18 05:54 | P.CONS ---
History of Present Illness - Reason for Consult Consult date: 04/17/22 Left foot osteomyelitis Requesting physician: Lauren Castaneda - Chief Complaint Weakness and mental status changes x one day - History of Present Illness Patient is a 72-year-old female with multiple comorbidities this patient who did have a history of left diabetic foot infection with osteomyelitis for the patient has completed her antibiotic therapy patient will follow with Dr. Gee at [facility] patient mention that the wound on the lateral aspect of the left foot was all healed up scabbed over with a scab was recently removed by the home care nurse, patient has been brought into the ER for evaluation of mental status changes and decreased level of responsiveness apparently the patient did have a nausea vomiting and some diarrhea going on for a day or 2 and yesterday the patient was noticed to be completely unresponsive weak for the patient was brought into the ER by EMS no clear history of any high-grade fever or any chills and no fever has been recorded except low-grade of 99.2 on admission patient was hypoxic on arrival to the ER O2 sats of 88% currently is on a 2 L nasal cannula patient did have a normal white count did have elevated BUN/creatinine liver enzymes are normal urine has been relatively negative though cloudy influenza RSV COVID testing was negative chest x-ray with mild heart failure, x-ray of the left foot did shows erosion in the third and fifth metatarsal heads could relate to some osteomyelitis and is unchanged compared to old exam destructive change of the distal phalanx of the fourth toe consistent with osteomyelitis however patient currently do not have any open wound on the left fourth toe which does not seem to be swollen and red or any drainage infectious disease was consulted because of this abnormality the patient has been started on Zosyn by the ER physician Review of Systems Positive point has been mentioned in the HPI rest of the systems are negative Past Medical History Past Medical History: Asthma, Coronary Artery Disease (CAD), Heart Failure, COPD, CVA/TIA, Diabetes Mellitus, Hyperlipidemia, Hypertension, Pneumonia, Rheumatoid Arthritis (RA) Additional Past Medical History / Comment(s): left GREAT TOE WOUND, with current dressing, partial amputation on 06/28/20. 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 Right great toe amputation 2015. stent in right leg above knee, elke cataracts. left toe ambutation, 06/18/20 Past Anesthesia/Blood Transfusion Reactions: Previous Problems w/ Anesthesia Additional Past Anesthesia/Blood Transfusion Reaction / Comm: diff breathing afterwards Past Psychological History: No Psychological Hx Reported Smoking Status: Never smoker Past Alcohol Use History: None Reported Past Drug Use History: None Reported - Past Family History Father Family Medical History: Coronary Artery Disease (CAD), CVA/TIA, Diabetes Mellitus Mother Family Medical History: Myocardial Infarction (NH) Additional Family Medical History / Comment(s): "spot on the lung" Medications and Allergies Home Medications Medication Instructions Recorded Confirmed Type Montelukast Sodium [Singulair] 10 mg PO HS 07/15/20 04/16/22 History DULoxetine HCL [Cymbalta] 60 mg PO DAILY@109908/29/20 04/16/22 History Insulin Glargine,Hum.rec.anlog 8 unit SQ DAILY@109905/16/21 04/16/22 History [Lantus Solostar Pen] Cholecalciferol [Vitamin D3 (25 25 mcg PO DAILY@1100 02/01/22 04/16/22 History Mcg = 1000 Iu)] Ferrous Sulfate [Iron (65 MG 325 mg PO DAILY@1100 02/01/22 04/16/22 History Elemental)] Insulin Aspart [NovoLOG Flexpen] See Protocol SQ AC-TID 02/01/22 04/16/22 His tory traMADol HCL 50 mg PO BID PRN 02/01/22 04/16/22 History Acetaminophen Tab [Tylenol] 650 mg PO Q6HR PRN tab 02/12/22 04/16/22 Rx Amiodarone [Cordarone] 200 mg PO DAILY@1100 04/16/22 04/16/22 History Collagenase [Santyl Ointment] 1 applic TOPICAL DAILY@1100 04/16/22 04/16/22 History Gabapentin [Neurontin] 300 mg PO HS PRN 04/16/22 04/16/22 History Ondansetron Odt [Zofran ODT] 4 mg PO Q8H PRN 04/16/22 04/16/22 History Metoprolol Tartrate [Lopressor] 12.5 mg PO BID tab 04/22/22 Rx Sodium Bicarbonate Tab 650 mg PO TID tab 04/22/22 Rx Allergies Allergy/AdvReac Type Severity Reaction Status Date / Time nickel Allergy Rash/Hives Verified 04/16/22 22:47 levofloxacin [From Levaquin] AdvReac Confusion Verified 04/16/22 22:47 Physical Exam Vitals: Vital Signs Temp Pulse Resp BP Pulse Ox 04/17/22 08:19 98 04/17/22 08:00 74 18 113/54 93 L 04/17/22 07:00 99 18 113/54 93 L 04/17/22 04:39 69 16 121/59 92 L 04/17/22 03:02 72 18 114/50 93 L 04/17/22 01:22 98.4 F 04/17/22 00:18 98.0 F 04/16/22 23:50 99.1 F 84 95 H 117/63 95 04/16/22 21:21 94 L 04/16/22 21:12 99.2 F 77 22 114/52 88 L Intake and Output 04/16/22 04/17/22 04/17/22 22:59 06:59 14:59 Other: Weight 72.575 kg GENERAL DESCRIPTION: Elderly female lying in bed, no distress. No tachypnea or accessory muscle of respiration use. HEENT: Shows Pallor , no scleral icterus. Oral mucous membrane is dry. No ph aryngeal erythema or thrush NECK: Trachea central, no thyromegaly. LUNGS: Unlabored breathing. Clear to auscultation anteriorly. No wheeze or crackle. HEART: S1, S2, regular rate and rhythm. No loud murmur ABDOMEN: Soft, no tenderness , guarding or rigidity, no organomegaly EXTREMITIES: Left foot lateral border wound superficial no surrounding redness or drainage left fourth toe with no significant swelling redness or drainage. SKIN: No rash, no masses palpable. NEUROLOGICAL: The patient is awake, alert, oriented x3, mood and affect normal. Results CBC & Chem 7: 04/22/22 03:40 04/22/22 03:40 Labs: Abnormal Lab Results - Last 24 Hours (Table) 04/16/22 04/16/22 04/16/22 Range/Units 21:17 21:25 21:25 RBC 3.51 L (3.80-5.40) m/uL Hgb 10.6 L (11.4-16.0) gm/dL Hct 32.6 L (34.0-46.0) % RDW (11.5-15.5) % Neutrophils # (Manual) (1.3-7.7) k/uL Lymphocytes # (Manual) 0.14 L (1.0-4.8) k/uL PT 12.4 H (9.0-12.0) sec INR 1.2 H (<1.2) Sodium (137-145) mmol/L Carbon Dioxide (22-30) mmol/L BUN (7-17) mg/dL Creatinine (0.52-1.04) mg/dL Glucose (74-99) mg/dL POC Glucose (mg/dL) 186 H (70-110) mg/dL Calcium (8.4-10.2) mg/dL Total Bilirubin (0.2-1.3) mg/dL Alkaline Phosphatase (38-126) U/L Total Protein (6.3-8.2) g/dL Albumin (3.5-5.0) g/dL Urine Appearance (Clear) Urine Protein (Negative) Urine Bilirubin (Negative) Ur Leukocyte Esterase (Negative) Urine RBC (0-5) /hpf Hyaline Casts (0-2) /lpf Urine Mucus (None) /hpf 04/16/22 04/16/22 04/17/22 Range/Units 21:25 21:25 00:31 RBC (3.80-5.40) m/uL Hgb (11.4-16.0) gm/dL Hct (34.0-46.0) % RDW (11.5-15.5) % Neutrophils # (Manual) (1.3-7.7) k/uL Lymphocytes # (Manual) (1.0-4.8) k/uL PT (9.0-12.0) sec INR (<1.2) Sodium 133 L (137-145) mmol/L Carbon Dioxide 17 L (22-30) mmol/L BUN 47 H (7-17) mg/dL Creatinine 2.45 H (0.52-1.04) mg/dL Glucose 172 H (74-99) mg/dL POC Glucose (mg/dL) 177 H (70-110) mg/dL Calcium 7.6 L (8.4-10.2) mg/dL Total Bilirubin 2.7 H (0.2-1.3) mg/dL Alkaline Phosphatase 135 H (38-126) U/L Total Protein (6.3-8.2) g/dL Albumin 3.4 L (3.5-5.0) g/dL Urine Appearance Cloudy H (Clear) Urine Protein 2+ H (Negative) Urine Bilirubin 1+ H (Negative) Ur Leukocyte Esterase Small H (Negative) Urine RBC 18 H (0-5) /hpf Hyaline Casts 36 H (0-2) /lpf Urine Mucus Rare H (None) /hpf 04/17/22 04/17/22 Range/Units 03:49 03:49 RBC 3.11 L (3.80-5.40) m/uL Hgb 9.3 L (11.4-16.0) gm/dL Hct 29.1 L (34.0-46.0) % RDW 15.7 H (11.5-15.5) % Neutrophils # (Manual) 8.20 H (1.3-7.7) k/uL Lymphocytes # (Manual) (1.0-4.8) k/uL PT (9.0-12.0) sec INR (<1.2) Sodium 135 L (137-145) mmol/L Carbon Dioxide 18 L (22-30) mmol/L BUN 51 H (7-17) mg/dL Creatinine 2.81 H (0.52-1.04) mg/dL Glucose 143 H (74-99) mg/dL POC Glucose (mg/dL) (70-110) mg/dL Calcium 7.4 L (8.4-10.2) mg/dL Total Bilirubin 2.7 H (0.2-1.3) mg/dL Alkaline Phosphatase (38-126) U/L Total Protein 6.0 L (6.3-8.2) g/dL Albumin 3.0 L (3.5-5.0) g/dL Urine Appearance (Clear) Urine Protein (Negative) Urine Bilirubin (Negative) Ur Leukocyte Esterase (Negative) Urine RBC (0-5) /hpf Hyaline Casts (0-2) /lpf Urine Mucus (None) /hpf Assessment and Plan (1) Diabetic foot ulcer associated with type 2 diabetes mellitus Status: Acute Code(s): E11.621 - TYPE 2 DIABETES MELLITUS WITH FOOT ULCER SNOMED Code(s): 4914794999222 Plan: 1patient noted to have a history of left diabetic foot infection and osteomyelitis for the patient has completed her antibiotic therapy many months ago and the patient was almost healed except a small area on the lateral aspect of the left foot which was a scabbed over removed by the home care nurse patient currently do not have any open wound on the fourth toe however significant abnormality has been described on the plain x-rays. 2we will obtain inflammatory markers including a sed rate and a CRP. 3we will obtain bone scan. 4patient with renal insufficiency and high risk of nephrotoxicity from vancomycin. 5May continue empiric Zosyn while waiting for the cultures to finalize. We will follow on clinical condition and cultures to further adjust medication if needed Thank you for this consultation we will follow the patient along with you Time with Patient: Greater than 30
[2022-04-18 06:10] LABS: Glucose,Whole Blood 130 mg/dL (70-110)
[2022-04-18] MEDS: INSULIN ASPART (NovoLOG) 100 UNIT/ML VIAL SQ SCH ×5 (06:28→20:25)
[2022-04-18] MEDS: SODIUM CHLORIDE 0.9% 1,000 ML IV SCH ×2 (06:45→12:24)
[2022-04-18] MEDS: METOPROLOL TARTRATE 25 MG TAB PO SCH (08:35)
[2022-04-18] MEDS: AMIODARONE 200 MG TAB PO SCH (08:36)
[2022-04-18] MEDS: DULoxetine HCL 60 MG CAPSULE.DR PO SCH (08:36)
[2022-04-18] MEDS: PANTOPRAZOLE 40 MG/10 ML VIAL IV SCH (08:36)
[2022-04-18] MEDS: amLODIPine 10 MG TAB PO SCH (08:38)
[2022-04-18 10:04] LABS: African American GFR (CKD) 15.9 (60.0-200.0); Albumin/Globulin Ratio 1.2 (1.60-3.17); Anion Gap 17.4 mmol/L (10.00-18.00); BUN/Creat Ratio 17.09 Ratio (12.00-20.00); Blood Urea Nitrogen 54.7 mg/dL (9.0-27.0); C Reactive Protein 23.5 mg/dL (0.00-0.80); Calcium 7.6 mg/dL (8.7-10.3); Carbon Dioxide 15.6 mmol/L (20.0-27.5); Globulin 2.5 g/dL (1.6-3.3); Non-African American GFR(CKD) 13.7 (60.0-200.0); Potassium 4.3 mmol/L (3.5-5.5); Total Bilirubin 2.2 mg/dL (0.30-1.20); Total Protein 5.5 g/dL (6.2-8.2)
--- NOTE | 2022-04-18 11:27 | P.PN ---
Subjective Progress Note Date: 04/18/22 The patient is seen at bedside and feels is doing better. Objective - Vital Signs Vital signs: Vital Signs Temp 98.3 F 04/18/22 07:42 Pulse 82 04/18/22 07:42 Resp 16 04/18/22 07:42 BP 95/56 04/18/22 07:42 Pulse Ox 90 L 04/18/22 02:00 FiO2 Intake & Output 04/17/22 04/18/22 04/18/22 18:59 06:59 18:59 Intake Total 180 Output Total 0 700 Balance 0 -700 180 Weight 72.575 kg Intake: Oral 180 Output: Urine 0 700 Other: Voiding Method External Catheter Diaper # Voids 1 # Bowel Movements 1 - Exam GENERAL: The patient is lying in bed and is not in acute distress. NEUROLOGICAL: Higher mental function: The patient is awake, alert, oriented to self, place and time. Patient is following simple commands. No aphasia and no neglect. Cranial nerves: The pupils are round, equal and reactive to light and accomm odation. Visual briscoe are full to confrontation throughout. Extraocular movement is intact no nystagmus is noted. Facial sensation is normal to touch throughout. The facial strength is normal throughout. Hearing is normal bilaterally to hand rub. Tongue is midline and moved [id number] without any difficulty. No dysarthria is noted. Shoulder shrug is normal bilaterally. Motor: The strength is 5 over 5 throughout. Normal tone and bulk. Has amputation in the toes of bilateral feet. Cerebellum: Normal finger to nose bilaterally. Sensation: Sensation is normal to touch throughout. Reflexes (right/left):1+ throughout. Some of the workup during his hospital visit consisted of: Initial vital signs is a blood pressure of 114/52, heart rate of 77, respiratory 22, temperature of 99.2 Fahrenheit axillary and pulse ox of 88% room air. His white blood cells 6.8 thousand POC glucose is 186, sodium is 133, creatinine is 2.45 BUN is 47, calcium 7.6, ammonia is less than 9. Urinalysis does not appear urinary tract infection Darden virus PCR was not detected that. RSV is nondetected and influenza A/P is not intact CT head is reported as old right temporal occipital cortical infarct without change. No acute intracranial abnormality. Cerebral atrophy. I personally reviewed the CT of the head and I agree the with a report. Routine EEG: Is abnormal. The background slowing is suggestive of mild to moderate encephalopathy. Otherwise, there is no focal slowing, epileptiform discharge or seizure. - Labs CBC & Chem 7: 04/17/22 03:49 04/18/22 05:37 Labs: Abnormal Lab Results - Last 24 Hours (Table) 04/17/22 04/17/22 04/18/22 Range/Units 13:05 19:27 05:37 Carbon Dioxide 15.6 L (20.0-27.5) mmol/L BUN 54.7 H (9.0-27.0) mg/dL Creatinine 3.2 H (0.6-1.5) mg/dL Est GFR (CKD-EPI)AfAm 15.9 L (60.0-200.0) Est GFR (CKD-EPI)NonAf 13.7 L (60.0-200.0) POC Glucose (mg/dL) 203 H (70-110) mg/dL Calcium 7.6 L (8.7-10.3) mg/dL Ionized Calcium Isabelle 4.4 L (4.5-5.3) mg/dL Total Bilirubin 2.20 H (0.30-1.20) mg/dL Alkaline Phosphatase 130 H (41-126) U/L C-Reactive Protein 23.50 H (0.00-0.80) mg/dL Total Protein 5.5 L (6.2-8.2) g/dL Albumin 3.0 L (3.8-4.9) g/dL Albumin/Globulin Ratio 1.20 L (1.60-3.17) g/dL 04/18/22 Range/Units 06:09 Carbon Dioxide (20.0-27.5) mmol/L BUN (9.0-27.0) mg/dL Creatinine (0.6-1.5) mg/dL Est GFR (CKD-EPI)AfAm (60.0-200.0) Est GFR (CKD-EPI)NonAf (60.0-200.0) POC Glucose (mg/dL) 130 H (70-110) mg/dL Calcium (8.7-10.3) mg/dL Ionized Calcium Isabelle (4.5-5.3) mg/dL Total Bilirubin (0.30-1.20) mg/dL Alkaline Phosphatase (41-126) U/L C-Reactive Protein (0.00-0.80) mg/dL Total Protein (6.2-8.2) g/dL Albumin (3.8-4.9) g/dL Albumin/Globulin Ratio (1.60-3.17) g/dL Microbiology - Last 24 Hours (Table) 04/17/22 13:40 Gram Stain - Preliminary Foot - Left Wound Culture - Preliminary 04/17/22 12:37 Blood Culture Gram Stain - Preliminary Blood 04/17/22 12:37 Blood Culture - Final Blood Assessment and Plan Assessment: Altered mental status. Encephalopathy of unknown exact etiology but I am concerned of non-convulsive seizure (especially since has old stroke that increase risk of seizure). Also hypocalcemia can provoke seizure---currently back to baseline. Hypocalcemia Multiple strokes. CT of the head shows old right occipital temporal encephalomalacia History of bilateral carotid stenosis status post endarterectomy (but I see only scar on left and not right and feel possibly right had stent). Diabetes mellitus Diabetic neuropathy Peripheral artery disease Atrial fibrillation on eliquis Coronary artery disease status post CABG Chronic kidney insufficiency Amputation in toes of bilateral feet due to PAD and DM Plan: * Routine EEG did not reveal seizure or epileptiform discharge. Recommend a prolonged EEG as an outpatient. * According to the daughter, she does not have any history of seizure. Since this is the first episode of severely confusion that resolved concerning for possible nonconvulsive seizure the daughter wants to hold medication for now if she has repeated episodes will consider antiepileptic drug. * Patient has low calcium with low ionized calcium and will defer management to primary team. * Patient had a TSH, vitamin B12, folate and January 2022 checked which were within normal limits. I am neck and a repeat them since they are relatively recent. * Recommend restarting her eliquis. Recommend statin especially with significant cardiovascular/stroke history. Recommend Lipitor 40 mg daily from neurological perspective. * Defer the rest of the medical management to primary team * Recommend the patient follow up with a neurologist as an outpatient within 1-2 weeks. Per daughter will have her follow-up with Dr. Gracia (since was seen by him in past). Plan discussed with the patient and her daughter via phone. No further neurological work-up. She is clear for discharge from neurological perspective. Time with Patient: Less than 30
[2022-04-18 11:43] LABS: Glucose,Whole Blood 147 mg/dL (70-110)
[2022-04-18 12:16] LABS: Acanthocytes 2+; Basophils # (A) 0.04 X 10*3/uL (0.00-0.10); Basophils % (A) 0.3 %; Eosinophils # (A) 0.11 X 10*3/uL (0.04-0.35); Eosinophils % (A) 0.9 %; HCT 27.2 % (37.2-46.3); HGB 8.5 g/dL (12.0-15.0); Immature Grans, Automated 1.9 %; Lymphocytes # (A) 0.65 X 10*3/uL (0.90-5.00); Lymphocytes % (A) 5.1 %; MCH 28.5 pg (27.0-32.0); MCHC 31.3 g/dL (32.0-37.0); MCV 91.3 fL (80.0-97.0); Macrocytosis (M) 2+; Mean Platelet Volume 11.4 fL (9.5-12.2); Monocytes # (A) 0.61 X 10*3/uL (0.20-1.00); Monocytes % (A) 4.8 %; NRBC Per 100 WBC 0 /100 WBCS (0.0-0.0); Neutrophils # (A) 11.17 X 10*3/uL (1.80-7.70); Platelet Count 216 X 10*3/uL (140-440); RBC 2.98 X 10*6/uL (4.10-5.20); RDW 17.5 % (11.5-14.5); WBC 12.82 X 10*3/uL (4.50-10.00)
[2022-04-18 13:09] LABS: Erythrocyte Sedimentation Rate 71 mm/Hr (0-30)
--- NOTE | 2022-04-18 13:10 | CDI ---
Documentation Clarification Form Date: 04/18/2022 12:49:55 PM From: Natali West Admit Date: 04/16/2022 10:54:00 PM Patient Name: Tracee Price Visit Number: [id number] Discharge Date: ATTENTION: The Clinical Documentation Specialists (CDI) and [facility] Coding Staff appreciate your assistance in clarifying documentation. Please respond to the clarification below the line at the bottom and electronically sign. The CDI & [facility] Coding staff will review the response and follow-up if needed. Please note: Queries are made part of the Legal Health Record. If you have any questions, please contact the author of this message via ITS. Dr. Marlena coronadoyx, stage 1 pressure ulcer is documented by Wound Care 04/17/2022, Nursing wound assessment. Based on this information and the findings below, is there an additional diagnosis that is clinically appropriate for this patient? History/Risk Factors: 72-year-old female presents to the ED with change in mental status and infection of the left foot. Medical History: CAD, COPD, Amputation in the toes of bilateral feet; PAD and DM. H&P, 04/17. Clinical Indicators: Location: Coccyx Wound description: Wound Margins Description: Indistinct; Lucy-Wound color: Erythema Treatment: Turn Q2 Hours while in bed; Absorbent under pad. Is there an additional diagnosis that is clinically appropriate for this patient? [ ] Coccyx Pressure Ulcer Stage 1 [ ] Other condition, please specify [ ] Unable to determine Clinical Definitions: Stage 1 Pressure Ulcer: intact skin, non-blanching redness of local area Stage 2 Pressure Ulcer: Partial thickness, loss of dermis, pink wound bed Stage 3 Pressure Ulcer: Full thickness tissue loss Stage 4 Pressure Ulcer: Full thickness tissue loss with exposed bone, tendon, or muscle. Unstageable pressure ulcer: Full thickness tissue loss in which the base of the ulcer is covered by slough (yellow, dorado, forte, green or brown) and/or eschar (dorado, brown or black) in the wound bed. (Template Last Revised: June 2020) Stage 1 Pressure Ulcer: intact skin, non-blanching redness of local area MTDD
--- NOTE | 2022-04-18 13:29 | NM ---
EXAMINATION TYPE: NM bone 3 phase DATE OF EXAM: 04/18/2022 COMPARISON: X-ray 04/16/2022, nuclear scan 02/19/2021 HISTORY: Right foot swelling Triple phase bone scintigraphy was performed following the injection of 23.2 mCi Tc 99m MDP. Immedia te images and 5.25 hours post injection images acquired. FINDINGS: Symmetric bilateral flow sheet bilaterally. Findings suggest previous surgical amputation. No sizable asymmetric soft tissue uptake. Mild intensity uptake seen at the distal margin of the firs t metatarsal bilaterally appear symmetric.. IMPRESSION: No scintigraphic evidence of osteomyelitis.
--- NOTE | 2022-04-18 14:19 | P.PN ---
Subjective Progress Note Date: 04/18/22 Principal diagnosis: Left diabetic foot ulcer and bacteremia Patient is a 72-year-old female with multiple comorbidities this patient who did have a history of left diabetic foot infection with osteomyelitis for the patient has completed her antibiotic therapy patient will follow with Dr. Gregory at [facility] care center patient mention that the wound on the lateral aspect of the left foot, patient has been part of the hospital for decreased level of consciousness weakness she did have a low-grade fever and on did have evidence of MRSA bacteremia abnormal x-ray of the left foot. on today's evaluation that is 04/18/2022, the patient denies having any fever or any chills the patient is breathing comfortably denies any chest pain shortness of breath or cough no abdominal pain or pain to the left foot Objective - Vital Signs Vital signs: Vital Signs Temp 98.3 F 04/18/22 07:42 Pulse 82 04/18/22 07:42 Resp 16 04/18/22 07:42 BP 95/56 04/18/22 07:42 Pulse Ox 90 L 04/18/22 02:00 FiO2 Intake & Output 04/17/22 04/18/22 04/18/22 18:59 06:59 18:59 Intake Total 180 Output Total 0 700 Balance 0 -700 180 Weight 72.575 kg Intake: Oral 180 Output: Urine 0 700 Other: Voiding Method External Catheter Diaper # Voids 1 # Bowel Movements 2 - Exam GENERAL DESCRIPTION: An elderly female lying in bed in no distress RESPIRATORY SYSTEM: Unlabored breathing , decreased breath sounds at bases HEART: S1 S2 regular rate and rhythm , ABDOMEN: Soft , no tenderness EXTREMITIES: Right foot is currently dressed no drainage on the dressing - Labs CBC & Chem 7: 04/18/22 05:37 04/18/22 05:37 Labs: Abnormal Lab Results - Last 24 Hours (Table) 04/17/22 04/17/22 04/18/22 Range/Units 13:05 19:27 05:37 WBC 12.82 H (4.50-10.00) X 10*3/uL RBC 2.98 L (4.10-5.20) X 10*6/uL Hgb 8.5 L (12.0-15.0) g/dL Hct 27.2 L (37.2-46.3) % MCHC 31.3 L (32.0-37.0) g/dL RDW 17.5 H (11.5-14.5) % Immature Gran # 0.24 H (0.00-0.04) X 10*3/uL Neutrophils # 11.17 H (1.80-7.70) X 10*3/uL Lymphocytes # 0.65 L (0.90-5.00) X 10*3/uL Carbon Dioxide (20.0-27.5) mmol/L BUN (9.0-27.0) mg/dL Creatinine (0.6-1.5) mg/dL Est GFR (CKD-EPI)AfAm (60.0-200.0) Est GFR (CKD-EPI)NonAf (60.0-200.0) POC Glucose (mg/dL) 203 H (70-110) mg/dL Calcium (8.7-10.3) mg/dL Ionized Calcium Isabelle 4.4 L (4.5-5.3) mg/dL Total Bilirubin (0.30-1.20) mg/dL Alkaline Phosphatase (41-126) U/L C-Reactive Protein (0.00-0.80) mg/dL Total Protein (6.2-8.2) g/dL Albumin (3.8-4.9) g/dL Albumin/Globulin Ratio (1.60-3.17) g/dL 04/18/22 04/18/22 04/18/22 Range/Units 05:37 06:09 11:41 WBC (4.50-10.00) X 10*3/uL RBC (4.10-5.20) X 10*6/uL Hgb (12.0-15.0) g/dL Hct (37.2-46.3) % MCHC (32.0-37.0) g/dL RDW (11.5-14.5) % Immature Gran # (0.00-0.04) X 10*3/uL Neutrophils # (1.80-7.70) X 10*3/uL Lymphocytes # (0.90-5.00) X 10*3/uL Carbon Dioxide 15.6 L (20.0-27.5) mmol/L BUN 54.7 H (9.0-27.0) mg/dL Creatinine 3.2 H (0.6-1.5) mg/dL Est GFR (CKD-EPI)AfAm 15.9 L (60.0-200.0) Est GFR (CKD-EPI)NonAf 13.7 L (60.0-200.0) POC Glucose (mg/dL) 130 H 147 H (70-110) mg/dL Calcium 7.6 L (8.7-10.3) mg/dL Ionized Calcium Isabelle (4.5-5.3) mg/dL Total Bilirubin 2.20 H (0.30-1.20) mg/dL Alkaline Phosphatase 130 H (41-126) U/L C-Reactive Protein 23.50 H (0.00-0.80) mg/dL Total Protein 5.5 L (6.2-8.2) g/dL Albumin 3.0 L (3.8-4.9) g/dL Albumin/Globulin Ratio 1.20 L (1.60-3.17) g/dL Microbiology - Last 24 Hours (Table) 04/17/22 12:37 Blood Culture Gram Stain - Preliminary Blood Blood Culture - Preliminary Staphylococcus aureus 04/17/22 13:40 Gram Stain - Preliminary Foot - Left Wound Culture - Preliminary 04/17/22 12:37 Blood Culture - Final Blood Assessment and Plan (1) Bacteremia Current Visit: Yes Status: Acute Code(s): R78.81 - BACTEREMIA SNOMED Code( s): 0167120 (2) Diabetic foot ulcer associated with type 2 diabetes mellitus Current Visit: No Status: Acute Code(s): E11.621 - TYPE 2 DIABETES MELLITUS WITH FOOT ULCER SNOMED Code(s): 8474038982300 Plan: 1patient noted to have a history of left diabetic foot infection and osteomyelitis for the patient has completed her antibiotic therapy many months ago and the patient was almost healed except a small area on the lateral aspect of the left foot which was a scabbed over removed by the home care nurse patient currently do not have any open wound on the fourth toe however significant abnormality has been described on the plain x-rays. 2patient did have elevated CRP of 23.50 and a sed rate of 71. 3bone scan is currently pending 4 patient also have a positive blood culture with MRSA, blood cultures repeated this morning to document clearance of bacteremia 5Zosyn discontinued and daptomycin has been added Time with Patient: Less than 30
--- NOTE | 2022-04-18 15:53 | P.GSCN ---
History of Present Illness History of present illness: 72-year-old diabetic female patient is well known to me from the wound clinic this patient had a recurrent infection to the left foot patient had a big toe second and third toe amputation done in the past he should also has a chronic wound on the lateral aspect of the of foot with is scab formation patient also had a history of diarrhea vomiting covered negative patient is a hypertension peripheral vascular disease. Patient had a blood culture which was positive for MRSA patient is on antibiotic under care of infectious disease Neck examination neck is supple no bruit appreciated Chest is clear few crackles the lung bases first and second sound present Abdomen soft nontender Vascular femorals are 1+ PTDP not palpable patient has a scab formation noted on the lateral aspect of the foot nontender patient had a bone scan which was negative for osteo- Plan is we will use medihoney gel to the wound on the lateral aspect which should be treated changed daily this point no surgical intervention if patient discharged to Come to the wound clinic as a follow-up Past Medical History Past Medical History: Asthma, Coronary Artery Disease (CAD), Heart Failure, COPD, CVA/TIA, Diabetes Mellitus, Hyperlipidemia, Hypertension, Pneumonia, Rheu matoid Arthritis (RA) Additional Past Medical History / Comment(s): left GREAT TOE WOUND, with current dressing, partial amputation on 06/28/20. 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 Right great toe amputation 2015. stent in right leg above knee, elke cataracts. left toe ambutation, 06/18/20 Past Anesthesia/Blood Transfusion Reactions: Previous Problems w/ Anesthesia Additional Past Anesthesia/Blood Transfusion Reaction / Comm: diff breathing afterwards Past Psychological History: No Psychological Hx Reported Smoking Status: Never smoker Past Alcohol Use History: None Reported Past Drug Use History: None Reported - Past Family History Father Family Medical History: Coronary Artery Disease (CAD), CVA/TIA, Diabetes Mellitus Mother Family Medical History: Myocardial Infarction ([place]) Additional Family Medical History / Comment(s): "spot on the lung" Medications and Allergies Home Medications Medication Instructions Recorded Confirmed Type Montelukast Sodium [Singulair] 10 mg PO HS 07/15/20 04/16/22 History DULoxetine HCL [Cymbalta] 60 mg PO DAILY@1100 08/29/20 04/16/22 History Insulin Glargine,Hum.rec.anlog 8 unit SQ DAILY@109905/16/21 04/16/22 History [Lantus Solostar Pen] Furosemide [Lasix] 20 mg PO DAILY@109908/08/21 04/16/22 History Apixaban [Eliquis] 2.5 mg PO BID@1100,209911/01/21 04/16/22 History Lumateperone Tosylate [Caplyta] 42 mg PO DAILY@109911/01/21 04/16/22 History Cholecalciferol [Vitamin D3 (25 25 mcg PO DAILY@109902/01/22 04/16/22 History Mcg = 1000 Iu)] Ferrous Sulfate [Iron (65 MG 325 mg PO DAILY@109902/01/22 04/16/22 History Elemental)] Insulin Aspart [NovoLOG Flexpen] See Protocol SQ AC-TID 02/01/22 04/16/22 His tory Zinc Gluconate [Zinc] 50 mg PO DAILY@109902/01/22 04/16/22 History traMADol HCL 50 mg PO BID PRN 02/01/22 04/16/22 History Acetaminophen Tab [Tylenol] 650 mg PO Q6HR PRN tab 02/12/22 04/16/22 Rx Amiodarone [Cordarone] 200 mg PO DAILY@109904/16/22 04/16/22 History Collagenase [Santyl Ointment] 1 applic TOPICAL DAILY@109904/16/22 04/16/22 History Gabapentin [Neurontin] 300 mg PO HS PRN 04/16/22 04/16/22 History Metoprolol Tartrate [Lopressor] 25 mg PO DAILY@109904/16/22 04/16/22 History Ondansetron Odt [Zofran Odt] 4 mg PO Q8H PRN 04/16/22 04/16/22 History amLODIPine [Norvasc] 10 mg PO DAILY@109904/16/2223 History Allergies Allergy/AdvReac Type Severity Reaction Status Date / Time nickel Allergy Rash/Hives Verified 04/16/22 22:47 levofloxacin [From Levaquin] AdvReac Confusion Verified 04/16/22 22:47 Surgical - Exam Vital Signs Temp Pulse Resp BP Pulse Ox 99.2 F 77 22 114/52 88 L 04/16/22 21:12 04/16/22 21:12 04/16/22 21:12 04/16/22 21:12 04/16/22 21:12 Results - Labs 04/18/22 05:37 04/18/22 05:37 Abnormal Lab Results - Last 24 Hours (Table) 04/17/22 04/18/22 04/18/22 Range/Units 19:27 05:37 05:37 WBC 12.82 H (4.50-10.00) X 10*3/uL RBC 2.98 L (4.10-5.20) X 10*6/uL Hgb 8.5 L (12.0-15.0) g/dL Hct 27.2 L (37.2-46.3) % MCHC 31.3 L (32.0-37.0) g/dL RDW 17.5 H (11.5-14.5) % Immature Gran # 0.24 H (0.00-0.04) X 10*3/uL Neutrophils # 11.17 H (1.80-7.70) X 10*3/uL Lymphocytes # 0.65 L (0.90-5.00) X 10*3/uL ESR 71 H (0-30) mm/Hr Carbon Dioxide 15.6 L (20.0-27.5) mmol/L BUN 54.7 H (9.0-27.0) mg/dL Creatinine 3.2 H (0.6-1.5) mg/dL Est GFR (CKD-EPI)AfAm 15.9 L (60.0-200.0) Est GFR (CKD-EPI)NonAf 13.7 L (60.0-200.0) POC Glucose (mg/dL) 203 H (70-110) mg/dL Calcium 7.6 L (8.7-10.3) mg/dL Total Bilirubin 2.20 H (0.30-1.20) mg/dL Alkaline Phosphatase 130 H (41-126) U/L C-Reactive Protein 23.50 H (0.00-0.80) mg/dL Total Protein 5.5 L (6.2-8.2) g/dL Albumin 3.0 L (3.8-4.9) g/dL Albumin/Globulin Ratio 1.20 L (1.60-3.17) g/dL 04/18/22 04/18/22 Range/Units 06:09 11:41 WBC (4.50-10.00) X 10*3/uL RBC (4.10-5.20) X 10*6/uL Hgb (12.0-15.0) g/dL Hct (37.2-46.3) % MCHC (32.0-37.0) g/dL RDW (11.5-14.5) % Immature Gran # (0.00-0.04) X 10*3/uL Neutrophils # (1.80-7.70) X 10*3/uL Lymphocytes # (0.90-5.00) X 10*3/uL ESR (0-30) mm/Hr Carbon Dioxide (20.0-27.5) mmol/L BUN (9.0-27.0) mg/dL Creatinine (0.6-1.5) mg/dL Est GFR (CKD-EPI)AfAm (60.0-200.0) Est GFR (CKD-EPI)NonAf (60.0-200.0) POC Glucose (mg/dL) 130 H 147 H (70-110) mg/dL Calcium (8.7-10.3) mg/dL Total Bilirubin (0.30-1.20) mg/dL Alkaline Phosphatase (41-126) U/L C-Reactive Protein (0.00-0.80) mg/dL Total Protein (6.2-8.2) g/dL Albumin (3.8-4.9) g/dL Albumin/Globulin Ratio (1.60-3.17) g/dL Microbiology - Last 24 Hours (Table) 04/17/22 13:40 Gram Stain - Preliminary Foot - Left Wound Culture - Preliminary Presumptive Staph aureus 04/17/22 12:37 Blood Culture Gram Stain - Preliminary Blood Blood Culture - Preliminary Staphylococcus aureus 04/17/22 12:37 Blood Culture - Final Blood Diabetes panel 04/18/22 Range/Units 05:37 Sodium 135 (135-145) mmol/L Potassium 4.3 (3.5-5.5) mmol/L Chloride 102 (96-109) mmol/L Carbon Dioxide 15.6 L (20.0-27.5) mmol/L BUN 54.7 H (9.0-27.0) mg/dL Creatinine 3.2 H (0.6-1.5) mg/dL Glucose 95 (70-110) mg/dL Calcium 7.6 L (8.7-10.3) mg/dL AST 18 (13-35) U/L ALT 8 (8-44) U/L Alkaline Phosphatase 130 H (41-126) U/L Total Protein 5.5 L (6.2-8.2) g/dL Albumin 3.0 L (3.8-4.9) g/dL Calcium panel 04/18/22 Range/Units 05:37 Calcium 7.6 L (8.7-10.3) mg/dL Albumin 3.0 L (3.8-4.9) g/dL Pituitary panel 04/18/22 Range/Units 05:37 Sodium 135 (135-145) mmol/L Potassium 4.3 (3.5-5.5) mmol/L Chloride 102 (96-109) mmol/L Carbon Dioxide 15.6 L (20.0-27.5) mmol/L BUN 54.7 H (9.0-27.0) mg/dL Creatinine 3.2 H (0.6-1.5) mg/dL Glucose 95 (70-110) mg/dL Calcium 7.6 L (8.7-10.3) mg/dL Adrenal panel 04/18/22 Range/Units 05:37 Sodium 135 (135-145) mmol/L Potassium 4.3 (3.5-5.5) mmol/L Chloride 102 (96-109) mmol/L Carbon Dioxide 15.6 L (20.0-27.5) mmol/L BUN 54.7 H (9.0-27.0) mg/dL Creatinine 3.2 H (0.6-1.5) mg/dL Glucose 95 (70-110) mg/dL Calcium 7.6 L (8.7-10.3) mg/dL Total Bilirubin 2.20 H (0.30-1.20) mg/dL AST 18 (13-35) U/L ALT 8 (8-44) U/L Alkaline Phosphatase 130 H (41-126) U/L Total Protein 5.5 L (6.2-8.2) g/dL Albumin 3.0 L (3.8-4.9) g/dL
[2022-04-18 16:15] LABS: Glucose,Whole Blood 185 mg/dL (70-110)
[2022-04-18 19:34] LABS: Glucose,Whole Blood 204 mg/dL (70-110)
--- NOTE | 2022-04-18 22:04 | PN ---
PROGRESS NOTE DATE OF SERVICE: 04/18/2022 SUBJECTIVE: This 72-year-old woman, who was admitted with multiple medical problems, is being evaluated to rule out osteomyelitis and the bone scan showed no evidence of osteomyelitis. No fever. No cough. OBJECTIVE: VITAL SIGNS: Pulse is 105, blood pressure is 91/58, respirations 18. CHEST: Clear to auscultation. CARDIOVASCULAR: S1 and S2. ABDOMEN: Soft. EXTREMITIES: Left foot infection, cellulitis present. LABORATORY DATA: Reviewed. ASSESSMENT: 1. Left foot infection, osteomyelitis ruled out with cellulitis. 2. Coronary artery disease. 3. Chronic obstructive pulmonary disease. 4. Cerebrovascular accident. 5. Diabetes mellitus, type 2. 6. Multiple medical issues. RECOMMENDATIONS: I recommend to continue current management. Continue with antibiotics. Repeat labs in the morning. Closely follow with Vascular and Infectious Disease. Further recommendations to follow. MMDEEDEEL / FRANCON: [id number] /
[2022-04-19 01:56] LABS: Glucose,Whole Blood 105 mg/dL (70-110)
[2022-04-19] MEDS ORDERED: METOPROLOL TARTRATE 25 MG TAB PO STA (02:30)
[2022-04-19 06:44] LABS: Glucose,Whole Blood 145 mg/dL (70-110)
[2022-04-19] MEDS: INSULIN ASPART (NovoLOG) 100 UNIT/ML VIAL SQ SCH ×4 (06:56→20:28)
[2022-04-19 09:12] LABS: HCT 29.4 % (37.2-46.3); HGB 8.8 g/dL (12.0-15.0); MCH 28.3 pg (27.0-32.0); MCHC 29.9 g/dL (32.0-37.0); MCV 94.5 fL (80.0-97.0); Mean Platelet Volume 11.1 fL (9.5-12.2); NRBC Per 100 WBC 0.1 /100 WBCS (0.0-0.0); Platelet Count 226 X 10*3/uL (140-440); RBC 3.11 X 10*6/uL (4.10-5.20); RDW 18.2 % (11.5-14.5); WBC 19.85 X 10*3/uL (4.50-10.00)
[2022-04-19 09:32] LABS: African American GFR (CKD) 14.2 (60.0-200.0); Anion Gap 18.9 mmol/L (10.00-18.00); BUN/Creat Ratio 17.89 Ratio (12.00-20.00); Blood Urea Nitrogen 62.6 mg/dL (9.0-27.0); Calcium 7.8 mg/dL (8.7-10.3); Carbon Dioxide 13.1 mmol/L (20.0-27.5); Non-African American GFR(CKD) 12.3 (60.0-200.0); Potassium 4.5 mmol/L (3.5-5.5)
[2022-04-19] MEDS: PANTOPRAZOLE 40 MG/10 ML VIAL IV SCH (09:54)
[2022-04-19] MEDS: METOPROLOL TARTRATE 25 MG TAB PO SCH (09:54)
[2022-04-19] MEDS: DULoxetine HCL 60 MG CAPSULE.DR PO SCH (09:58)
[2022-04-19] MEDS: AMIODARONE 200 MG TAB PO SCH (09:58)
--- NOTE | 2022-04-19 10:08 | P.NPCON ---
History of Present Illness - Reason for Consult acute renal failure - History of Present Illness Patient is a 72-year-old female with history of coronary artery disease, asthma, COPD and chronic left foot wound. Patient follows with vascular surgery as outpatient. Patient is admitted to the hospital with altered mentation. Renal function has been worsening since admission with creatinine increasing fro m 2.45 on 04/16/2022 to 3.5 mg/dL today. Urine output is not accurately charted. Patient has been voiding. Reports of diarrhea nausea or vomiting. Blood pressure is low with systolic in the 90s. Patient has a wound on the left foot and previous second and third toe amputations. No history of use of NSAIDs or IV contrast administration this hospitalization. Blood cultures are growing staph aureus Review of Systems As per HPI Past Medical History Past Medical History: Asthma, Coronary Artery Disease (CAD), Heart Failure, C OPD, CVA/TIA, Diabetes Mellitus, Hyperlipidemia, Hypertension, Pneumonia, Rheumatoid Arthritis (RA) Additional Past Medical History / Comment(s): left GREAT TOE WOUND, with current dressing, partial amputation on 06/28/20. going to hyperbaric chamber 5 days a week, PICC line right arm Last Myocardial Infarction Date:: 2014 History of Any Multi-Drug Resistant Organisms: VRE Date of last positivie culture/infection: 02/02/22 VRE MDRO Source:: Urine Past Surgical History: Adenoidectomy, Appendectomy, Coronary Bypass/CABG, Heart Catheterization, Tonsillectomy, Tubal Ligation Additional Past Surgical History / Comment(s): Open heart on April 13 2015, cabg X4, bilateral carotid endarterectomies,. Right great toe amputation 2014. stent in right leg above knee, elke cataracts. left toe ambutation, 06/18/20 Past Anesthesia/Blood Transfusion Reactions: Previous Problems w/ Anesthesia Additional Past Anesthesia/Blood Transfusion Reaction / Comment(s): diff breathing afterwards Past Psychological History: No Psychological Hx Reported Smoking Status: Never smoker Past Alcohol Use History: None Reported Past Drug Use History: None Reported - Past Family History Father Family Medical History: Coronary Artery Disease (CAD), CVA/TIA, Diabetes Mellitus Mother Family Medical History: Myocardial Infarction ([place]) Additional Family Medical History / Comment(s): "spot on the lung" Medications and Allergies Home Medications Medication Instructions Recorded Confirmed Type Montelukast Sodium [Singulair] 10 mg PO HS 07/15/20 04/16/22 History DULoxetine HCL [Cymbalta] 60 mg PO DAILY@109908/29/20 04/16/22 History Insulin Glargine,Hum.rec.anlog 8 unit SQ DAILY@109905/16/21 04/16/22 History [Lantus Solostar Pen] Furosemide [Lasix] 20 mg PO DAILY@109908/08/21 04/16/22 History Apixaban [Eliquis] 2.5 mg PO BID@1100,209911/01/21 04/16/22 History Lumateperone Tosylate [Caplyta] 42 mg PO DAILY@109911/01/21 04/16/22 History Cholecalciferol [Vitamin D3 (25 25 mcg PO DAILY@109902/01/22 04/16/22 History Mcg = 1000 Iu)] Ferrous Sulfate [Iron (65 MG 325 mg PO DAILY@109902/01/22 04/16/22 History Elemental)] Insulin Aspart [NovoLOG Flexpen] See Protocol SQ AC-TID 02/01/22 04/16/22 History Zinc Gluconate [Zinc] 50 mg PO DAILY@109902/01/22 04/16/22 History traMADol HCL 50 mg PO BID PRN 02/01/22 04/16/22 History Acetaminophen Tab [Tylenol] 650 mg PO Q6HR PRN tab 02/12/22 04/16/22 Rx Amiodarone [Cordarone] 200 mg PO DAILY@109904/16/22 04/16/22 History Collagenase [Santyl Ointment] 1 applic TOPICAL DAILY@109904/16/22 04/16/22 History Gabapentin [Neurontin] 300 mg PO HS PRN 04/16/22 04/16/22 History Metoprolol Tartrate [Lopressor] 25 mg PO DAILY@109904/16/22 04/16/22 History Ondansetron Odt [Zofran Odt] 4 mg PO Q8H PRN 04/16/22 04/16/22 History amLODIPine [Norvasc] 10 mg PO DAILY@109904/16/22 04/16/22 History Allergies Allergy/AdvReac Type Severity Reaction Status Date / Time nickel Allergy Rash/Hives Verified 04/16/22 22:47 levofloxacin [From Levaquin] AdvReac Confusion Verified 04/16/22 22:47 Physical Exam Vitals: Vital Signs Temp Pulse Resp BP Pulse Ox 04/19/22 07:14 97.6 F 68 19 94/49 90 L 04/19/22 02:32 97.6 F 120 H 17 98/61 91 L 04/18/22 19:03 97.3 F L 95 17 98/58 91 L 04/18/22 13:25 97.4 F L 105 H 18 91/55 91 L Intake and Output 04/18/22 04/19/22 04/19/22 22:59 06:59 14:59 Output Total 650 Balance -650 Output: Urine 650 Other: Voiding Method Diaper # Bowel Movements 1 Patient is awake, comfortable, no acute distress She is oriented 2 Examination of the heart S1 and S2 Examination of the lungs bilateral breath sounds are heard Abdomen is soft nontender Examination of the lower extremities shows no significant edema , left foot is dressed 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 Acute kidney injury secondary to hypotension and underlying infection. Rule out urine retention. UA shows 2+ protein no blood and WBCs 3. Ultrasound of the kidneys will be ordered as well. 2. Staph aureus bacteremia associated with left foot wound, maintained on d aptomycin 3. Anion gap metabolic acidosis associated with acute kidney injury 4. Anemia rule out iron deficiency 5. Hypotension with history of hypertension, hold off on Norvasc 6. A. fib with RVR, rate is better controlled now, maintained on beta blockers and amiodarone Plan: DC Norvasc Change IV fluids to IV bicarb Check iron profile Repeat labs in a.m. Check ultrasound of the kidneys Avoid nephrotoxic agents Thank you for the consultation we will continue to follow the patient with you during her hospitalization.
--- NOTE | 2022-04-19 10:19 | P.CRDCN ---
History of Present Illness Consult date: 04/19/22 History of present illness: HISTORY OF PRESENT ILLNESS: This is a 72-year-old female with a past medical history significant for coronary artery disease with previous CABG, ischemic cardiomyopathy, paroxysmal atrial fibrillation, hypertension, hyperlipidemia, and CVA. Patient follows in the office with Dr. Soto. We have been asked to see the patient in consultation for atrial fibrillation. Patient examined at the bedside. Patient is admitted to the hospital secondary to left foot infection with cellulitis. Patient was found to be tachycardic overnight with a heart rate ranging between 110 and 140. An A-team was called on the patient. She received an extra dose of metoprolol 25 mg by mouth. According to charting, the patient has not received her metoprolol for the past few doses. This morning the patients heart rate is well-controlled. She is maintaining sinus mechanism this morning. She denies any chest pain or pressure. She reports mild shortness of breath. * EKG reveals sinus mechanism with no signs of acute ischemia * Chest xray there is evidence for some mild heart failure which is new compared to old exam. * Laboratory data: WBC 19.85. Hemoglobin 8.8. Platelet count 226. Sodium 132. Potassium 4.5. BUN 62.6. Creatinine 3.5. * Current home cardiac medications include amiodarone 200 mg daily, Norvasc 10 mg daily, metoprolol tartrate 25 mg daily, Lasix 20 mg daily, and Eliquis 2.5mg BID. * Most recent echocardiogram obtained in January 2022 revealed ejection fraction 20-25% with mild tricuspid regurgitation and mild pulmonary hypertension REVIEW OF SYSTEMS: At the time of my exam: CONSTITUTIONAL: Denies fever or chills. HEENT: Denies blurred vision, vision changes, or eye pain. Denies hemoptysis CARDIOVASCULAR: Denies chest pain. Denies orthopnea. Denies PND. Denies palpitations RESPIRATORY: Denies shortness of breath. GASTROINTESTINAL: Denies abdominal pain. Denies nausea or vomiting. HEMATOLOGIC: Denies bleeding disorders. GENITOURINARY: Denies any blood in urine. SKIN: Denies pruitis. Denies rash. PHYSICAL EXAM: VITAL SIGNS: Reviewed. GENERAL: Well-developed in no acute distress. HEENT: Head is normocephalic. Pupils are equal, round. Sclerae anicteric. Mucous membranes of the mouth are moist. Neck supple. No JVD or thyromegaly LUNGS: Respirations even and unlabored. Lungs diminished bilaterally HEART: Regular rate and rhythm. S1 and S2 heard. ABDOMEN: Soft. Nondistended. Nontender. EXTREMITIES: Normal range of motion. No clubbing or cyanosis. Peripheral pulses intact. No lower extremity edema NEUROLOGIC: Awake and alert. Oriented x 3. ASSESSMENT: Left foot infection with cellulitis Paroxysmal atrial fibrillation with RVR, currently maintaining sinus mechanism Coronary artery disease with previous CABG Ischemic cardio myopathy, ejection fraction 20-25% Hypertension Hyperlipidemia History of CVA PLAN: No need to repeat echocardiogram as this was performed in January 2022 Continue current cardiac medications Increase metoprolol to 25 mg twice a day. Tachycardia likely secondary to missed metoprolol doses in combination with infectious process. Continue telemetry monitoring Further recommendations pending patient's course Nurse practitioner note has been reviewed by physician. Signing provider agrees with the documented findings, assessment, and plan of care. Past Medical History Past Medical History: Asthma, Coronary Artery Disease (CAD), Heart Failure, COPD, CVA/TIA, Diabetes Mellitus, Hyperlipidemia, Hypertension, Pneumonia, Rheumatoid Arthritis (RA) Additional Past Medical History / Comment(s): left GREAT TOE WOUND, with current dressing, partial amputation on 06/28/20. going to hyperbaric chamber 5 days a week, PICC line right arm Last Myocardial Infarction Date:: 2014 History of Any Multi-Drug Resistant Organisms: VRE Date of last positivie culture/infection: 02/02/22 VRE MDRO Source:: Urine Past Surgical History: Adenoidectomy, Appendectomy, Coronary Bypass/CABG, Heart Catheterization, Tonsillectomy, Tubal Ligation Additional Past Surgical History / Comment(s): Open heart on April 13 2015, cabg X4, bilateral carotid endarterectomies,. Right great toe amputation 2015. stent in right leg above knee, elke cataracts. left toe ambutation, 06/18/20 Past Anesthesia/Blood Transfusion Reactions: Previous Problems w/ Anesthesia Additional Past Anesthesia/Blood Transfusion Reaction / Comment(s): diff breathing afterwards Past Psychological History: No Psychological Hx Reported Smoking Status: Never smoker Past Alcohol Use History: None Reported Past Drug Use History: None Reported - Past Family History Father Family Medical History: Coronary Artery Disease (CAD), CVA/TIA, Diabetes Sheryl litus Mother Family Medical History: Myocardial Infarction ([place]) Additional Family Medical History / Comment(s): "spot on the lung" Medications and Allergies Home Medications Medication Instructions Recorded Confirmed Type Montelukast Sodium [Singulair] 10 mg PO HS 07/15/20 04/16/22 History DULoxetine HCL [Cymbalta] 60 mg PO DAILY@1100 08/29/20 04/16/22 History Insulin Glargine,Hum.rec.anlog 8 unit SQ DAILY@109905/16/21 04/16/22 History [Lantus Solostar Pen] Furosemide [Lasix] 20 mg PO DAILY@109908/08/21 04/16/22 History Apixaban [Eliquis] 2.5 mg PO BID@1100,209911/01/21 04/16/22 History Lumateperone Tosylate [Caplyta] 42 mg PO DAILY@109911/01/21 04/16/22 History Cholecalciferol [Vitamin D3 (25 25 mcg PO DAILY@109902/01/22 04/16/22 History Mcg = 1000 Iu)] Ferrous Sulfate [Iron (65 MG 325 mg PO DAILY@109902/01/22 04/16/22 History Elemental)] Insulin Aspart [NovoLOG Flexpen] See Protocol SQ AC-TID 02/01/22 04/16/22 History Zinc Gluconate [Zinc] 50 mg PO DAILY@109902/01/22 04/16/22 History traMADol HCL 50 mg PO BID PRN 02/01/22 04/16/22 History Acetaminophen Tab [Tylenol] 650 mg PO Q6HR PRN tab 02/12/22 04/16/22 Rx Amiodarone [Cordarone] 200 mg PO DAILY@109904/16/22 04/16/22 History Collagenase [Santyl Ointment] 1 applic TOPICAL DAILY@109904/16/22 04/16/22 History Gabapentin [Neurontin] 300 mg PO HS PRN 04/16/22 04/16/22 History Metoprolol Tartrate [Lopressor] 25 mg PO DAILY@109904/16/22 04/16/22 History Ondansetron Odt [Zofran Odt] 4 mg PO Q8H PRN 04/16/22 04/16/22 History amLODIPine [Norvasc] 10 mg PO DAILY@1100 04/16/22 04/16/22 History Allergies Allergy/AdvReac Type Severity Reaction Status Date / Time nickel Allergy Rash/Hives Verified 04/16/22 22:47 levofloxacin [From Levaquin] AdvReac Confusion Verified 04/16/22 22:47 Physical Exam Vitals: Vital Signs Temp Pulse Resp BP Pulse Ox 04/19/22 07:14 97.6 F 68 19 94/49 90 L 04/19/22 02:32 97.6 F 120 H 17 98/61 91 L 04/18/22 19:03 97.3 F L 95 17 98/58 91 L 04/18/22 13:25 97.4 F L 105 H 18 91/55 91 L Intake and Output 04/18/22 04/19/22 04/19/22 22:59 06:59 14:59 Output Total 650 Balance -650 Output: Urine 650 Other: Voiding Method Diaper # Bowel Movements 1 Results 04/19/22 05:28 04/19/22 05:28 CBC 04/18/22 04/19/22 Range/Units 05:37 05:28 WBC 12.82 H 19.85 H (4.50-10.00) X 10*3/uL RBC 2.98 L 3.11 L (4.10-5.20) X 10*6/uL Hgb 8.5 L 8.8 L (12.0-15.0) g/dL Hct 27.2 L 29.4 L (37.2-46.3) % Plt Count 216 226 (140-440) X 10*3/uL Comprehensive Metabolic Panel 04/19/22 Range/Units 05:28 Sodium 132 L (135-145) mmol/L Potassium 4.5 (3.5-5.5) mmol/L Chloride 100 (96-109) mmol/L Carbon Dioxide 13.1 L (20.0-27.5) mmol/L BUN 62.6 H (9.0-27.0) mg/dL Creatinine 3.5 H (0.6-1.5) mg/dL Glucose 100 (70-110) mg/dL Calcium 7.8 L (8.7-10.3) mg/dL Current Medications Generic Name Dose Route Start Last Admin Trade Name Freq PRN Reason Stop Dose Admin Acetaminophen 650 mg 04/16/22 22:55 Acetaminophen Tab 325 Mg Tab PO Q6HR PRN Mild Pain or Fever > 100.5 Amiodarone HCl 200 mg 04/17/22 11:00 04/19/22 09:58 Amiodarone 200 Mg Tab PO 200 mg DAILY@1100 [facility] Administration Dextrose/Water 25 ml 04/17/22 16:35 Dextrose 50% Syringe 50 Ml IVP PER PROTOCOL PRN Hypoglycemia Protocol Duloxetine HCl 60 mg 04/17/22 11:00 04/19/22 09:58 Duloxetine Hcl 60 Mg Capsule.Dr PO 60 mg DAILY@1100 [facility] Administration Gabapentin 300 mg 04/16/22 22:55 Gabapentin 300 Mg Cap PO HS PRN Pain Daptomycin 450 mg/ Sodium 50 mls @ 100 mls/hr 04/20/22 09:00 Chloride IVPB Q48H [facility] Protocol Insulin Aspart 0 unit 04/17/22 17:30 04/19/22 06:56 Insulin Aspart (Novolog) 100 Unit/Ml Vial SQ Not Given ACHS [facility] Protocol Metoprolol Tartrate 25 mg 04/19/22 09:30 04/19/22 09:54 Metoprolol Tartrate 25 Mg Tab PO 25 mg BID JAY Administration Naloxone HCl 0.2 mg 04/16/22 22:54 Naloxone 0.4 Mg/Ml 1 Ml Vial IV Q2M PRN Opioid Reversal Pantoprazole Sodium 40 mg 04/16/22 23:00 04/19/22 09:54 Pantoprazole 40 Mg/10 Ml Vial IV 40 mg DAILY JAY Administration Intake and Output 04/18/22 04/19/22 04/19/22 22:59 06:59 14:59 Output Total 650 Balance -650 Output: Urine 650 Other: Voiding Method Diaper # Bowel Movements 1 04/19/22 05:28 04/19/22 05:28
[2022-04-19 10:29] LABS: Basophils # (A) 0.07 X 10*3/uL (0.00-0.10); Basophils % (A) 0.4 %; Eosinophils # (A) 0.06 X 10*3/uL (0.04-0.35); Eosinophils % (A) 0.3 %; Immature Grans, Automated 1.4 %; Lymphocytes % (A) 5.5 %; Monocytes # (A) 0.92 X 10*3/uL (0.20-1.00); Monocytes % (A) 4.6 %; Neutrophils # (A) 17.42 X 10*3/uL (1.80-7.70); Neutrophils % (A) 87.8 %
[2022-04-19 11:07] LABS: Glucose,Whole Blood 147 mg/dL (70-110)
--- NOTE | 2022-04-19 11:23 | US ---
EXAMINATION TYPE: US kidneys/renal and bladder DATE OF EXAM: 04/19/2022 COMPARISON: Abdominal ultrasound 02/09/2022, renal ultrasound 02/06/2022. CLINICAL HISTORY: prema. EXAM MEASUREMENTS: Right Kidney: 11.6 x 5.2 x 5.3 cm Left Kidney: 11 x 5.3 x 4.2 cm Right Kidney: cystic area seen sup pole 1 cm. Left Kidney: No hydronephrosis or masses seen Bladder: Not fully distended. Bilateral Jets seen: no There is no evidence for hydronephrosis at this point in time. No nephrolithiasis is seen. No solid masses are identified. Stable cyst within the mid pole of the right kidney. The urinary bladder is a nechoic and not fully distended. IMPRESSION: 1. No hydronephrosis or shadowing renal calculi. 2. Stable right renal cyst.
[2022-04-19] MEDS: ONDANSETRON ODT 4 MG TAB PO PRN (12:59)
[2022-04-19] MEDS: DEXTROSE 5% IN WATER 1,000 ML with SODIUM BICARB (1 MEQ/ML) 150 ML IV SCH (13:21)
--- NOTE | 2022-04-19 13:41 | CDI ---
Documentation Clarification Form Date: 04/19/2022 1:00:45 PM From: Natali West RN CCDS Admit Date: 04/16/2022 10:54:00 PM Patient Name: Tracee Price Visit Number: [id number] Discharge Date: ATTENTION: The Clinical Documentation Specialists (CDI) and [facility] Coding Staff appreciate your assistance in clarifying documentation. Please respond to the clarification below the line at the bottom and electronically sign. The CDI & [facility] Coding staff will review the response and follow-up if needed. Please note: Queries are made part of the Legal Health Record. If you have any questions, please contact the author of this message via ITS. Dr. Laughlin Cellulitis is documented 04/18, Medicine note. Additional clarification regarding the type of cellulitis is requested. History/risk factors: 72-year-old female presents to the ED with altered mental status and left foot infection. Medical history: Left toe amputation 06/18/20; DM, HTN, COPD and Heart failure. , ID Consult. Clinical Indicators: 04/16, VSS: B/P 114/ 52; HR 77; Temp 99.2 F axillary; RR 22; SpO2 88% room air 04/18, Medicine note: left foot infection, osteomyelitis ruled out with cellulitis. 04/17, H&P: Legs: Left leg infection, cellulitis and swelling also present status post amputation of the toes. Treatment: 04/18 Daptomycin IVPB Q48H; 04/17 - 04/18 Zosyn IVPB Q12HR; 04/17 Novolog Sliding Scale SQ ACHS. Please clarify the type of cellulitis, if known: [ ] Cellulitis due to diabetes [ ] Chronic Cellulitis [ ] Other, please specify: [ ] Unable to determine Documented in Medicine progress note 04/21 Dr. Laughlin: Diabetic foot ulcer on the left associated with poorly controlled diabetes mellitus, type II, chronic foot ulcer with concerns of possible cellulitis (Template Last Revised: June 2020) [facility]
--- NOTE | 2022-04-19 13:54 | CDI ---
Documentation Clarification Form Date: 04/19/2022 1:42:39 PM From: Natali West RN CCDS Admit Date: 04/16/2022 10:54:00 PM Patient Name: Tracee Price Visit Number: [id number] Discharge Date: ATTENTION: The Clinical Documentation Specialists (CDI) and [facility] Coding Staff appreciate your assistance in clarifying documentation. Please respond to the clarification below the line at the bottom and electronically sign. The CDI & [facility] Coding staff will review the response and follow-up if needed. Please note: Queries are made part of the Legal Health Record. If you have any questions, please contact the author of this message via ITS. Dr. Laughlin Your patient has the documented diagnosis of unspecified CHF 04/17, ID Consult. Additional information regarding the type, acuity of CHF is requested. History/risk factors: 72-year-old female presents to the ED with altered mental status and left foot infection. Medical history: Left toe amputation 06/18/20; DM, HTN, COPD and Heart failure.04/17, ID Consult. Clinical Indicators: 04/16,VS/Pulse OX: B/P 114/ 52; HR 77; Temp 99.2 F axillary; RR 22; SpO2 88% room air 04/16 BNP: 12784 Echocardiogram Results: 11/02/2021 EF 35%. [employer] is hypokinetic. Mitral annular calcification with mild to moderate mitral regurgitation. Left atrial enlargement. 04/16, Chest X Ray: There is evidence for some mild heart failure which is new compared to old exam. Home medications: Lasix 20mg PO Daily; Lopressor 25mg PO Daily Treatment: 04/17 04/18 Lopressor 25mg PO Daily; 04/19 Lopressor 25mg PO x 1; 04/19 Lopressor 25mg PO BID In your professional opinion, can you please clarify the acuity and type of CHF if known? [ ] Chronic Systolic Heart Failure (reduced EF) [ ] Other, please specify [ ] Unable to determine (Template Last Revised: May 2020) Query answered 04/[address] note [address]. Laughlin: Acute on chronic congestive heart failure, with systolic dysfunction, acute exacerbation. MTDD
--- NOTE | 2022-04-19 14:16 | CDI ---
Documentation Clarification Form Date: 04/19/2022 1:55:54 PM From: Natali West RN CCDS Admit Date: 04/16/2022 10:54:00 PM Patient Name: Tracee Price Visit Number: [id number] Discharge Date: ATTENTION: The Clinical Documentation Specialists (CDI) and [facility] Coding Staff appreciate your assistance in clarifying documentation. Please respond to the clarification below the line at the bottom and electronically sign. The CDI & [facility] Coding staff will review the response and follow-up if needed. Please note: Queries are made part of the Legal Health Record. If you have any questions, please contact the author of this message via ITS. Dr. Laughlin Your patient has SpO2 88% on room air, ED note 13. Based on this information and the findings below, is there an additional diagnosis that is clinically appropriate for this patient? History/Risk Factors: 72-year-old female presents to the ED with altered mental status and left foot infection. Medical history: Left toe amputation 06/18/20; DM, HTN, COPD and Heart failure.04/17, ID Consult. Tobacco use: No history of smoking Home oxygen: No history of home oxygen use CXR, 04/16: There is evidence for some mild heart failure which is new compared to old exam. Clinical Indicators: 04/16,VS/Pulse OX: B/P 114/ 52; HR 77; Temp 99.2 F axillary; RR 22; SpO2 88% room air Lung/Breathing assessment: 04/17 , H&P: Breath sounds diminished at the bases, a few scattered rhonchi. 04/16 21:12 RR 22 SpO2 88% room air 04/16 21:21 SpO2 94% 2L nasal cannula 04/16 23:5 RR 95 SpO2 95% 3L nasal cannula 04/17 04:39 RR 16 SpO2 92% 2L nasal cannula 04/17 16:00 RR 18 SpO2 97% 4L nasal cannula 04/17 19:37 RR 16 SpO2 91% room air 04/18 13:25 RR 18 SpO2 91% 2L nasal cannula 04/19 07:14 RR 19 SpO2 90% 5L nasal cannula Treatment: Oxygen 2 5L nasal cannula Is there an additional diagnosis that is clinically appropriate for this patient? [ ] Acute Hypoxic Respiratory Failure (pO2 <60 mm Hg or SpO2 <91% on room air) [ ] Acute Respiratory Insufficiency [ ] Other Diagnosis, please specify [ ] Unable to determine (Template Last Revised: June 2020) Documented in Medicine progress note 04/21 Dr. Laughlin: Acute hypoxic respiratory failure secondary to COPD exacerbation MTDD
--- NOTE | 2022-04-19 15:05 | P.PN ---
Subjective Progress Note Date: 04/19/22 This is a 72-year-old female was recently admitted with altered mental status with concerns for possible left foot cellulitis with infection and being closely monitored with multiple medical consultations. Patient did have positive blood culture showing MRSA bacteremia and patient has been placed on IV daptomycin with infectious disease following closely. Vascular surgery Dr. Gregory evaluated the patient as patient has chronic left foot ulcers from diabetes with recent amputations and recommending to continue with IV antibiotics and local wound care. Patient will likely require IV antibiotics on discharge. Patient is currently afebrile denies chest pain or worsening shortness of breath. Jasvir barrientos is currently maintained on 5 L and weaning as tolerated. Daughter at the bedside expressed concern that patient would like to remain no code and her chart was showing full code as of this morning. CODE STATUS was addressed again and will continue with no code. Patient with multiple medical comorbidities making prognosis extremely guarded. Patient with poor oral intake and will add Magic cups and encouraged oral intake. Continue local wound care per ID recommendations. Nephrology following as well patient is maintained on a sodium bicarbonate drip area recommend follow-up labs in the a.m. Review of systems: Constitutional: No reports of fatigue, fever, or chills Cardiovascular: No reports of chest pain or palpitations Respiratory: No reports of worsening shortness of breath or cough GI: reports of occasional nausea, no reports of of vomiting, reports not much of an appetite : No reports of dysuria or retention Neurovascular: reports of generalized weakness All medications have been reviewed Active Medications Acetaminophen (Acetaminophen Tab 325 Mg Tab) 650 mg PO Q6HR PRN PRN Reason: Mild Pain or Fever > 100.5 Amiodarone HCl (Amiodarone 200 Mg Tab) 200 mg PO DAILY@1100 PENDING SALE TO [facility] Last Admin: 04/19/22 09:58 Dose: 200 mg Dextrose/Water (Dextrose 50% Syringe 50 Ml) 25 ml IVP PER PROTOCOL PRN; Protocol PRN Reason: Hypoglycemia Duloxetine HCl (Duloxetine Hcl 60 Mg Capsule.) 60 mg PO DAILY@1100 PENDING SALE TO [facility] Last Admin: 04/19/22 09:58 Dose: 60 mg Gabapentin (Gabapentin 300 Mg Cap) 300 mg PO HS PRN PRN Reason: Pain Daptomycin 450 mg/ Sodium (Chloride) 50 mls @ 100 mls/hr IVPB Q48H PENDING SALE TO [facility]; Protocol Sodium Bicarbonate 150 ml/ (Dextrose/Water) 1,150 mls @ 75 mls/hr IV .[id number] PENDING SALE TO [facility] Last Admin: 04/19/22 13:21 Dose: 75 mls/hr Insulin Aspart (Insulin Aspart (Novolog) 100 Unit/Ml Vial) 0 unit SQ ACHS PENDING SALE TO [facility]; Protocol Last Admin: 04/19/22 13:15 Dose: Not Given Metoprolol Tartrate (Metoprolol Tartrate 25 Mg Tab) 25 mg PO BID PENDING SALE TO [facility] Last Admin: 04/19/22 09:54 Dose: 25 mg Naloxone HCl (Naloxone 0.4 Mg/Ml 1 Ml Vial) 0.2 mg IV Q2M PRN PRN Reason: Opioid Reversal Ondansetron HCl (Ondansetron Odt 4 Mg Tab) 4 mg PO Q8HR PRN PRN Reason: Nausea Last Admin: 04/19/22 12:59 Dose: 4 mg Pantoprazole Sodium (Pantoprazole 40 Mg/10 Ml Vial) 40 mg IV DAILY PENDING SALE TO [facility] Last Admin: 04/19/22 09:54 Dose: 40 mg PHYSICAL EXAMINATION: GENERAL: The patient is alert and oriented x3, thin built, elderly appearing female HEENT: Pupils are round and equally reacting to light. EOMI. no scleral icterus. No conjunctival pallor. Normocephalic, atraumatic. No pharyngeal erythema. No thyromegaly. CARDIOVASCULAR: S1 and S2 muffled PULMONARY: diminished breath sounds bilaterally with some scattered rhonchi noted. ABDOMEN: soft. Nontender on exam. non-distended, normoactive bowel sounds. No palpable organomegaly. MUSCULOSKELETAL: No joint swelling or deformity. EXTREMITIES: No cyanosis, clubbing, or pedal edema. Left foot wound currently dressed this morning and dressing is dry and intact NEUROLOGICAL: Gross neurological examination did not reveal any focal deficits. Diffuse weakness SKIN: No rashes. Assessment: Acute hypoxic respiratory failure secondary to COPD exacerbation Acute on chronic congestive heart failure, with systolic dysfunction, acute exacerbation Diabetic foot ulcer on the left associated with poorly controlled diabetes mellitus, type II, chronic foot ulcer with concerns of possible cellulitis, present on admission, osteomyelitis ruled out on the bone scan Bacteremia secondary to chronic left foot ulcer Paroxysmal atrial fibrillation with RVR, currently sinus rhythm History of coronary artery disease with CABG History of ischemic cardiomyopathy, EF 20-25% Hypertension Hyperlipidemia Chronic obstructive pulmonary disease History of CVA Diabetes mellitus, type II GI prophylaxis DVT prophylaxis No code Plan: Recommend to continue with current medications and management with multiple medical consultations including nephrology, cardiology, infectious disease following. Patient with shortness of breath maintained on 5 L and weaning as tolerated, will add incentive spirometer and encourage the patient to use at least 10 times every hour while awake Patient continuing to eat very little with not much of an appetite recommend monitoring Accu-Cheks before meals and at bedtime and as needed and also encouraging oral intake. Daughter bring in foods of choice and also will add Magic cups Patient maintained on a sodium bicarbonate drip and obtaining ultrasound of the kidneys with nephrology following and recommend repeat labs Patient is continued on IV daptomycin with infectious disease following for persistent bacteremia and awaiting repeat blood cultures to show clearance of bacteremia. Patient will likely need IV medications on discharge Recommend continue with local wound care of the left lower extremity PT/OT to evaluate the patient CODE STATUS was again addressed with patient and daughter who is her power of corporate associate attorney at the bedside and expressed her wishes to remain no code Due to multiple complex medical issues, prognosis is guarded The impression and plan of care has been dictated by Lauren Castaneda, nurse practitioner as directed. Dr. Qian MD I have performed a history and examination and MDM of this patient, discussed the same with the dictator, and agree with the dictator's assessment and plan as written ,documented as a scribe. Based on total visit time, I have performed more than 50% of the visit. Any additional findings or plans will be noted. Objective - Vital Signs Vital signs: Vital Signs Temp 98.1 F 04/19/22 13:25 Pulse 59 L 04/19/22 13:25 Resp 18 04/19/22 13:25 BP 84/47 04/19/22 13:25 Pulse Ox 93 L 04/19/22 13:25 FiO2 Intake & Output 04/18/22 04/19/22 04/19/22 18:59 06:59 18:59 Intake Total 180 Output Total 650 Balance 180 -650 Intake: Oral 180 Output: Urine 650 Other: Voiding Method Diaper Diaper # Voids 1 # Bowel Movements 1 - Labs CBC & Chem 7: 04/19/22 05:28 04/19/22 05:28 Labs: Abnormal Lab Results - Last 24 Hours (Table) 04/18/22 04/18/22 04/19/22 Range/Units 16:13 19:33 05:28 WBC 19.85 H (4.50-10.00) X 10*3/uL RBC 3.11 L (4.10-5.20) X 10*6/uL Hgb 8.8 L (12.0-15.0) g/dL Hct 29.4 L (37.2-46.3) % MCHC 29.9 L (32.0-37.0) g/dL RDW 18.2 H (11.5-14.5) % Absolute Nucleated RBC 0.02 H (0.00-0.00) X 10*3/uL Immature Gran # 0.28 H (0.00-0.04) X 10*3/uL Neutrophils # 17.42 H (1.80-7.70) X 10*3/uL NRBC/100 WBC Diff 0.1 H (0.0-0.0) /100 WBCS Sodium (135-145) mmol/L Carbon Dioxide (20.0-27.5) mmol/L Anion Gap (10.00-18.00) mmol/L BUN (9.0-27.0) mg/dL Creatinine (0.6-1.5) mg/dL Est GFR (CKD-EPI)AfAm (60.0-200.0) Est GFR (CKD-EPI)NonAf (60.0-200.0) POC Glucose (mg/dL) 185 H 204 H (70-110) mg/dL Calcium (8.7-10.3) mg/dL 04/19/22 04/19/22 04/19/22 Range/Units 05:28 06:42 11:05 WBC (4.50-10.00) X 10*3/uL RBC (4.10-5.20) X 10*6/uL Hgb (12.0-15.0) g/dL Hct (37.2-46.3) % MCHC (32.0-37.0) g/dL RDW (11.5-14.5) % Absolute Nucleated RBC (0.00-0.00) X 10*3/uL Immature Gran # (0.00-0.04) X 10*3/uL Neutrophils # (1.80-7.70) X 10*3/uL NRBC/100 WBC Diff (0.0-0.0) /100 WBCS Sodium 132 L (135-145) mmol/L Carbon Dioxide 13.1 L (20.0-27.5) mmol/L Anion Gap 18.90 H (10.00-18.00) mmol/L BUN 62.6 H (9.0-27.0) mg/dL Creatinine 3.5 H (0.6-1.5) mg/dL Est GFR (CKD-EPI)AfAm 14.2 L (60.0-200.0) Est GFR (CKD-EPI)NonAf 12.3 L (60.0-200.0) POC Glucose (mg/dL) 145 H 147 H (70-110) mg/dL Calcium 7.8 L (8.7-10.3) mg/dL Microbiology - Last 24 Hours (Table) 04/18/22 06:29 Blood Culture Gram Stain - Preliminary Blood 04/18/22 06:29 Blood Culture - Final Blood 04/17/22 13:40 Gram Stain - Preliminary Foot - Left Wound Culture - Preliminary Presumptive Staph aureus 04/17/22 12:37 Blood Culture Gram Stain - Preliminary Blood Blood Culture - Preliminary Staphylococcus aureus
[2022-04-19 15:42] LABS: Glucose,Whole Blood 229 mg/dL (70-110)
[2022-04-19 20:19] LABS: Glucose,Whole Blood 268 mg/dL (70-110)
[2022-04-19] MEDS: METOCLOPRAMIDE 5 MG/ML 2 ML VIAL IVP SCH (20:28)
--- NOTE | 2022-04-19 21:20 | P.PN ---
Subjective Progress Note Date: 04/19/22 Principal diagnosis: Left diabetic foot ulcer and bacteremia Patient is a 72-year-old female with multiple comorbidities this patient who did have a history of left diabetic foot infection with osteomyelitis for the patient has completed her antibiotic therapy patient will follow with Dr. Gregory at [facility] care center patient mention that the wound on the lateral aspect of the left foot, patient has been part of the hospital for decreased level of consciousness weakness she did have a low-grade fever and on did have evidence of MRSA bacteremia abnormal x-ray of the left foot. on today's evaluation that is , the patient remains to be afebrile, t he patient is breathing comfortably on nasal cannula oxygen, the patient denies any chest pain shortness of breath or cough no abdominal pain or pain to the left foot Objective - Vital Signs Vital signs: Vital Signs Temp 97.6 F 04/19/22 07:14 Pulse 68 04/19/22 07:14 Resp 19 04/19/22 07:14 BP 94/49 04/19/22 07:14 Pulse Ox 90 L 04/19/22 07:14 FiO2 Intake & Output 04/18/22 04/19/22 04/19/22 18:59 06:59 18:59 Intake Total 180 Output Total 650 Balance 180 -650 Intake: Oral 180 Output: Urine 650 Other: Voiding Method Diaper Diaper # Voids 1 # Bowel Movements 1 - Exam GENERAL DESCRIPTION: An elderly female lying in bed in no distress RESPIRATORY SYSTEM: Unlabored breathing , decreased breath sounds at bases HEART: S1 S2 regular rate and rhythm , ABDOMEN: Soft , no tenderness EXTREMITIES: Left foot lateral border wound at the base of the face started have minimal purulent drainage no redness of the left fourth toe - Labs CBC & Chem 7: 04/19/22 05:28 04/19/22 05:28 Labs: Abnormal Lab Results - Last 24 Hours (Table) 04/18/22 04/18/22 04/18/22 Range/Units 05:37 16:13 19:33 WBC (4.50-10.00) X 10*3/uL RBC (4.10-5.20) X 10*6/uL Hgb (12.0-15.0) g/dL Hct (37.2-46.3) % MCHC (32.0-37.0) g/dL RDW (11.5-14.5) % Absolute Nucleated RBC (0.00-0.00) X 10*3/uL Immature Gran # (0.00-0.04) X 10*3/uL Neutrophils # (1.80-7.70) X 10*3/uL NRBC/100 WBC Diff (0.0-0.0) /100 WBCS ESR 71 H (0-30) mm/Hr Sodium (135-145) mmol/L Carbon Dioxide (20.0-27.5) mmol/L Anion Gap (10.00-18.00) mmol/L BUN (9.0-27.0) mg/dL Creatinine (0.6-1.5) mg/dL Est GFR (CKD-EPI)AfAm (60.0-200.0) Est GFR (CKD-EPI)NonAf (60.0-200.0) POC Glucose (mg/dL) 185 H 204 H (70-110) mg/dL Calcium (8.7-10.3) mg/dL 04/19/22 04/19/22 04/19/22 Range/Units 05:28 05:28 06:42 WBC 19.85 H (4.50-10.00) X 10*3/uL RBC 3.11 L (4.10-5.20) X 10*6/uL Hgb 8.8 L (12.0-15.0) g/dL Hct 29.4 L (37.2-46.3) % MCHC 29.9 L (32.0-37.0) g/dL RDW 18.2 H (11.5-14.5) % Absolute Nucleated RBC 0.02 H (0.00-0.00) X 10*3/uL Immature Gran # 0.28 H (0.00-0.04) X 10*3/uL Neutrophils # 17.42 H (1.80-7.70) X 10*3/uL NRBC/100 WBC Diff 0.1 H (0.0-0.0) /100 WBCS ESR (0-30) mm/Hr Sodium 132 L (135-145) mmol/L Carbon Dioxide 13.1 L (20.0-27.5) mmol/L Anion Gap 18.90 H (10.00-18.00) mmol/L BUN 62.6 H (9.0-27.0) mg/dL Creatinine 3.5 H (0.6-1.5) mg/dL Est GFR (CKD-EPI)AfAm 14.2 L (60.0-200.0) Est GFR (CKD-EPI)NonAf 12.3 L (60.0-200.0) POC Glucose (mg/dL) 145 H (70-110) mg/dL Calcium 7.8 L (8.7-10.3) mg/dL 04/19/22 Range/Units 11:05 WBC (4.50-10.00) X 10*3/uL RBC (4.10-5.20) X 10*6/uL Hgb (12.0-15.0) g/dL Hct (37.2-46.3) % MCHC (32.0-37.0) g/dL RDW (11.5-14.5) % Absolute Nucleated RBC (0.00-0.00) X 10*3/uL Immature Gran # (0.00-0.04) X 10*3/uL Neutrophils # (1.80-7.70) X 10*3/uL NRBC/100 WBC Diff (0.0-0.0) /100 WBCS ESR (0-30) mm/Hr Sodium (135-145) mmol/L Carbon Dioxide (20.0-27.5) mmol/L Anion Gap (10.00-18.00) mmol/L BUN (9.0-27.0) mg/dL Creatinine (0.6-1.5) mg/dL Est GFR (CKD-EPI)AfAm (60.0-200.0) Est GFR (CKD-EPI)NonAf (60.0-200.0) POC Glucose (mg/dL) 147 H (70-110) mg/dL Calcium (8.7-10.3) mg/dL Microbiology - Last 24 Hours (Table) 04/18/22 06:29 Blood Culture Gram Stain - Preliminary Blood 04/18/22 06:29 Blood Culture - Final Blood 04/17/22 13:40 Gram Stain - Preliminary Foot - Left Wound Culture - Preliminary Presumptive Staph aureus 04/17/22 12:37 Blood Culture Gram Stain - Preliminary Blood Blood Culture - Preliminary Staphylococcus aureus Assessment and Plan (1) Bacteremia Current Visit: Yes Status: Acute Code(s): R78.81 - BACTEREMIA SNOMED Code(s): 1659085 (2) Diabetic foot ulcer associated with type 2 diabetes mellitus Current Visit: No Status: Acute Code(s): E11.621 - TYPE 2 DIABETES MELLITUS WITH FOOT ULCER SNOMED Code(s): 2725937168074 Plan: 1patient noted to have a history of left diabetic foot infection and osteomyelitis for the patient has completed her antibiotic therapy many months a go and the patient was almost healed except a small area on the lateral aspect of the left foot which was a scabbed over removed by the home care nurse patient currently do not have any open wound on the fourth toe however significant abnormality has been described on the plain x-rays. 2patient did have elevated CRP of 23.50 and a sed rate of 71. 3bone scan interestingly was negative for osteomyelitis 4 patient also have a positive blood culture with MRSA, blood cultures repeat also positive, will be repeated daily to document clearance of bacteremia 5patient to continue with the daptomycin will add Flagyl in view of elevated white count to rule out anaerobic component to it Time with Patient: Less than 30
[2022-04-20] MEDS: metroNIDAZOLE 500 MG TAB PO SCH ×4 (00:30→21:27)
[2022-04-20 02:03] LABS: Glucose,Whole Blood 165 mg/dL (70-110)
[2022-04-20] MEDS: METOPROLOL TARTRATE 25 MG TAB PO SCH ×3 (05:36→21:27)
[2022-04-20] MEDS: METOCLOPRAMIDE 5 MG/ML 2 ML VIAL IVP SCH ×5 (05:37→23:05)
[2022-04-20 05:54] LABS: Glucose,Whole Blood 163 mg/dL (70-110)
[2022-04-20] MEDS: DEXTROSE 5% IN WATER 1,000 ML with SODIUM BICARB (1 MEQ/ML) 150 ML IV SCH ×2 (06:36→14:57)
[2022-04-20] MEDS: INSULIN ASPART (NovoLOG) 100 UNIT/ML VIAL SQ SCH ×4 (06:36→21:27)
[2022-04-20] MEDS: PANTOPRAZOLE 40 MG/10 ML VIAL IV SCH (08:28)
[2022-04-20] MEDS: DULoxetine HCL 60 MG CAPSULE.DR PO SCH (08:29)
[2022-04-20] MEDS: AMIODARONE 200 MG TAB PO SCH (08:29)
--- NOTE | 2022-04-20 11:07 | P.PN ---
Subjective Patient is seen in follow-up for acute kidney injury on chronic kidney disease. Paola 3.5 yesterday. Langston catheter inserted this morning. Urine output documented as 650 mL yesterday. Blood pressure on the lower side but stable. On nasal cannula. Vital signs are stable. General: No acute distress. HEENT: Head exam is unremarkable. On nasal cannula. LUNGS: Breath sounds decreased. HEART: Rate and Rhythm are regular. ABDOMEN: Soft, no distention. EXTREMITITES: No edema. Objective - Vital Signs Vital signs: Vital Signs Temp 98.6 F 04/20/22 06:49 Pulse 58 L 04/20/22 06:49 Resp 18 04/20/22 06:49 BP 100/50 04/20/22 06:49 Pulse Ox 94 L 04/20/22 06:49 FiO2 Intake & Output 04/19/22 04/20/22 04/20/22 18:59 06:59 18:59 Other: Voiding Method Diaper Diaper # Voids 7 1 # Bowel Movements 7 2 - Labs CBC & Chem 7: 04/19/22 05:28 04/19/22 05:28 Labs: Abnormal Lab Results - Last 24 Hours (Table) 04/19/22 04/19/22 04/19/22 Range/Units 11:05 15:41 20:18 POC Glucose (mg/dL) 147 H 229 H 268 H (70-110) mg/dL 04/20/22 04/20/22 Range/Units 02:01 05:53 POC Glucose (mg/dL) 165 H 163 H (70-110) mg/dL Microbiology - Last 24 Hours (Table) 04/17/22 13:40 Gram Stain - Preliminary Foot - Left Wound Culture - Preliminary Methicillin resist S. aureus Group D Enterococcus 04/19/22 13:05 Blood Culture - Final Blood 04/18/22 06:29 Blood Culture Gram Stain - Preliminary Blood Assessment and Plan Plan: Assessment: 1. Acute kidney injury secondary to ATN secondary to infection and hypotension. No hydronephrosis noted on kidney ultrasound. Creatinine 2.45 on admission and was up to 3.5 yesterday. 2. Chronic kidney disease stage IIIB with baseline creatinine 1.3-1.6 in November and January 2022. 3. Left diabetic foot infection and osteomyelitis with staph bacteremia on antibiotics. ID following. 4. Metabolic acidosis secondary to acute kidney injury. On bicarb drip. 5. Diabetes mellitus. 6. Anemia of chronic kidney disease. Plan: Maintain bicarb drip. Maintain Langston catheter. Strict I's and O os. Avoid nephrotoxins. Add Aranesp. Morning labs pending. Continue to monitor renal function and urine output. Continue to assess daily for need for renal replacement therapy. Renal replacement therapy was discussed with the patient today.
[2022-04-20 11:32] LABS: Glucose,Whole Blood 160 mg/dL (70-110)
[2022-04-20 11:53] LABS: African American GFR (CKD) 11.1 (60.0-200.0); Anion Gap 21.3 mmol/L (10.00-18.00); BUN/Creat Ratio 18.19 Ratio (12.00-20.00); Blood Urea Nitrogen 78.2 mg/dL (9.0-27.0); Non-African American GFR(CKD) 9.6 (60.0-200.0); Potassium 4.5 mmol/L (3.5-5.5)
[2022-04-20] MEDS ORDERED: DARBEPOETIN ALFA 40 MCG/0.4 ML SYRINGE SQ SCH (12:00)
[2022-04-20 12:05] LABS: Basophils # (A) 0.07 X 10*3/uL (0.00-0.10); Basophils % (A) 0.3 %; Eosinophils # (A) 0.07 X 10*3/uL (0.04-0.35); Eosinophils % (A) 0.3 %; HCT 29.6 % (37.2-46.3); HGB 9.6 g/dL (12.0-15.0); Immature Grans, Automated 2.3 %; Lymphocytes % (A) 6.1 %; MCH 28.2 pg (27.0-32.0); MCHC 32.4 g/dL (32.0-37.0); MCV 86.8 fL (80.0-97.0); Mean Platelet Volume 11.3 fL (9.5-12.2); Monocytes # (A) 1.18 X 10*3/uL (0.20-1.00); Monocytes % (A) 5.1 %; NRBC Per 100 WBC 0.1 /100 WBCS (0.0-0.0); Neutrophils # (A) 19.77 X 10*3/uL (1.80-7.70); Neutrophils % (A) 85.9 %; Platelet Count 264 X 10*3/uL (140-440); RBC 3.41 X 10*6/uL (4.10-5.20); RDW 18.1 % (11.5-14.5); WBC 23.03 X 10*3/uL (4.50-10.00)
[2022-04-20 12:06] LABS: Crenated RBC 3+
--- NOTE | 2022-04-20 14:39 | P.PN ---
Subjective Progress Note Date: 04/20/22 Principal diagnosis: Left diabetic foot ulcer and bacteremia Patient is a 72-year-old female with multiple comorbidities this patient who did have a history of left diabetic foot infection with osteomyelitis for the patient has completed her antibiotic therapy patient will follow with Dr. Gregory at [facility] patient mention that the wound on the lateral aspect of the left foot, patient has been part of the hospital for decreased level of consciousness weakness she did have a low-grade fever and on did have evidence of MRSA bacteremia abnormal x-ray of the left foot. on today's evaluation that is 04/20/2022, the patient continues to be afebrile, the patient is breathing comfortably on 5 L nasal cannula oxygen, the patient denies any chest pain shortness of breath or cough , the patient denies nausea and vomiting abdominal pain or pain to the left foot Objective - Vital Signs Vital signs: Vital Signs Temp 98.6 F 04/20/22 06:49 Pulse 58 L 04/20/22 06:49 Resp 18 04/20/22 06:49 BP 100/50 04/20/22 06:49 Pulse Ox 94 L 04/20/22 06:49 FiO2 Intake & Output 04/19/22 04/20/22 04/20/22 18:59 06:59 18:59 Other: Voiding Method Diaper Diaper Indwelling Catheter # Voids 7 1 # Bowel Movements 7 2 - Exam GENERAL DESCRIPTION: An elderly female lying in bed in no distress RESPIRATORY SYSTEM: Unlabored breathing , decreased breath sounds at bases HEART: S1 S2 regular rate and rhythm , ABDOMEN: Soft , no tenderness EXTREMITIES: Left foot lateral border wound at the base of the fifth toe has dried out no drainage - Labs CBC & Chem 7: 04/20/22 06:15 04/20/22 06:15 Labs: Abnormal Lab Results - Last 24 Hours (Table) 04/19/22 04/19/22 04/20/22 Range/Units 15:41 20:18 02:01 WBC (4.50-10.00) X 10*3/uL RBC (4.10-5.20) X 10*6/uL Hgb (12.0-15.0) g/dL Hct (37.2-46.3) % RDW (11.5-14.5) % Absolute Nucleated RBC (0.00-0.00) X 10*3/uL Immature Gran # (0.00-0.04) X 10*3/uL Neutrophils # (1.80-7.70) X 10*3/uL Monocytes # (0.20-1.00) X 10*3/uL NRBC/100 WBC Diff (0.0-0.0) /100 WBCS Sodium (135-145) mmol/L Carbon Dioxide (20.0-27.5) mmol/L Anion Gap (10.00-18.00) mmol/L BUN (9.0-27.0) mg/dL Creatinine (0.6-1.5) mg/dL Est GFR (CKD-EPI)AfAm (60.0-200.0) Est GFR (CKD-EPI)NonAf (60.0-200.0) Glucose (70-110) mg/dL POC Glucose (mg/dL) 229 H 268 H 165 H (70-110) mg/dL Calcium (8.7-10.3) mg/dL 04/20/22 04/20/22 04/20/22 Range/Units 05:53 06:15 06:15 WBC 23.03 H (4.50-10.00) X 10*3/uL RBC 3.41 L (4.10-5.20) X 10*6/uL Hgb 9.6 L (12.0-15.0) g/dL Hct 29.6 L (37.2-46.3) % RDW 18.1 H (11.5-14.5) % Absolute Nucleated RBC 0.02 H (0.00-0.00) X 10*3/uL Immature Gran # 0.54 H (0.00-0.04) X 10*3/uL Neutrophils # 19.77 H (1.80-7.70) X 10*3/uL Monocytes # 1.18 H (0.20-1.00) X 10*3/uL NRBC/100 WBC Diff 0.1 H (0.0-0.0) /100 WBCS Sodium 131 L (135-145) mmol/L Carbon Dioxide 14.0 L (20.0-27.5) mmol/L Anion Gap 21.30 H (10.00-18.00) mmol/L BUN 78.2 H (9.0-27.0) mg/dL Creatinine 4.3 H (0.6-1.5) mg/dL Est GFR (CKD-EPI)AfAm 11.1 L (60.0-200.0) Est GFR (CKD-EPI)NonAf 9.6 L (60.0-200.0) Glucose 128 H (70-110) mg/dL POC Glucose (mg/dL) 163 H (70-110) mg/dL Calcium 8.0 L (8.7-10.3) mg/dL 04/20/22 Range/Units 11:30 WBC (4.50-10.00) X 10*3/uL RBC (4.10-5.20) X 10*6/uL Hgb (12.0-15.0) g/dL Hct (37.2-46.3) % RDW (11.5-14.5) % Absolute Nucleated RBC (0.00-0.00) X 10*3/uL Immature Gran # (0.00-0.04) X 10*3/uL Neutrophils # (1.80-7.70) X 10*3/uL Monocytes # (0.20-1.00) X 10*3/uL NRBC/100 WBC Diff (0.0-0.0) /100 WBCS Sodium (135-145) mmol/L Carbon Dioxide (20.0-27.5) mmol/L Anion Gap (10.00-18.00) mmol/L BUN (9.0-27.0) mg/dL Creatinine (0.6-1.5) mg/dL Est GFR (CKD-EPI)AfAm (60.0-200.0) Est GFR (CKD-EPI)NonAf (60.0-200.0) Glucose (70-110) mg/dL POC Glucose (mg/dL) 160 H (70-110) mg/dL Calcium (8.7-10.3) mg/dL Microbiology - Last 24 Hours (Table) 04/18/22 06:29 Blood Culture Gram Stain - Preliminary Blood Blood Culture - Preliminary Presumptive MRSA 04/19/22 13:05 Blood Culture Gram Stain - Preliminary Blood 04/17/22 13:40 Gram Stain - Preliminary Foot - Left Wound Culture - Preliminary Methicillin resist S. aureus Group D Enterococcus 04/19/22 13:05 Blood Culture - Final Blood Assessment and Plan (1) Bacteremia Current Visit: Yes Status: Acute Code(s): R78.81 - BACTEREMIA SNOMED Code(s): 3189505 (2) Diabetic foot ulcer associated with type 2 diabetes mellitus Current Visit: No Status: Acute Code(s): E11.621 - TYPE 2 DIABETES MELLITUS WITH FOOT ULCER SNOMED Code(s): 8000475560528 Plan: 1patient noted to have a history of left diabetic foot infection and osteomyelitis for the patient has completed her antibiotic therapy many months ago and the patient was almost healed except a small area on the lateral aspect of the left foot which was a scabbed over removed by the home care nurse patient currently do not have any open wound on the fourth toe however significant abnormality has been described on the plain x-rays. 2patient did have elevated CRP of 23.50 and a sed rate of 71. 3bone scan was negative for osteomyelitis 4 patient also have a positive blood culture with MRSA, blood cultures repeat 04/18/2019 as well as 04/19/2022 also positive, will be repeated daily to document clearance of bacteremia 5patient to continue with the daptomycin, we will repeat her urine culture add Rocephin to cover for gram-negative in view of persistent elevated white count Time with Patient: Less than 30
[2022-04-20] MEDS: HEPARIN SODIUM,PORCINE/PF 5,000 UNIT/0.5 ML SYRINGE SQ SCH ×2 (14:57→23:04)
[2022-04-20] MEDS ORDERED: SODIUM BICARB 8.4% 50 ML SYR (1 MEQ/ML) IV STA (15:03)
[2022-04-20] MEDS ORDERED: FUROSEMIDE 10 MG/ML 10 ML VIAL IV STA (15:07)
[2022-04-20] MEDS: SODIUM BICARBONATE TAB 650 MG TAB PO SCH ×2 (15:24→21:27)
[2022-04-20 15:41] LABS: Appearance,Urine Cloudy (Clear); Bacteria,Urine Occasional /hpf; Bilirubin,Urine 2+ (Negative); Blood,Urine Trace (Negative); Budding Yeast,Urine Few /hpf; Color,Urine Dark Brown; Glucose,Urine (UA) Negative (Negative); Granular Casts,Urine 1 /lpf (0); Hyaline Casts,Urine 15 /lpf (0-2); Ketones,Urine Negative (Negative); Leukocyte Esterase,Urine Large (Negative); Mucus,Urine Rare /hpf; Nitrite,Urine Negative (Negative); Protein,Urine 1+ (Negative); RBC,Urine 11 /hpf (0-5); Specific Gravity,Urine 1.019 (1.001-1.035); Squamous Epithelial Cell,Urine 1 /hpf (0-4); WBC,Urine 33 /hpf (0-5)
[2022-04-20 16:30] LABS: Glucose,Whole Blood 278 mg/dL (70-110)
[2022-04-20 20:17] LABS: Glucose,Whole Blood 213 mg/dL (70-110)
[2022-04-21 06:08] LABS: Glucose,Whole Blood 161 mg/dL (70-110)
[2022-04-21] MEDS: METOCLOPRAMIDE 5 MG/ML 2 ML VIAL IVP SCH ×3 (06:54→16:01)
[2022-04-21] MEDS: DEXTROSE 5% IN WATER 1,000 ML with SODIUM BICARB (1 MEQ/ML) 150 ML IV SCH ×2 (06:55→08:29)
[2022-04-21] MEDS: INSULIN ASPART (NovoLOG) 100 UNIT/ML VIAL SQ SCH ×4 (06:55→21:46)
[2022-04-21] MEDS: METOPROLOL TARTRATE 25 MG TAB PO SCH (08:31)
[2022-04-21] MEDS: AMIODARONE 200 MG TAB PO SCH (08:31)
[2022-04-21] MEDS: SODIUM BICARBONATE TAB 650 MG TAB PO SCH ×3 (08:31→21:46)
[2022-04-21] MEDS: metroNIDAZOLE 500 MG TAB PO SCH ×3 (08:31→21:46)
[2022-04-21] MEDS: DULoxetine HCL 60 MG CAPSULE.DR PO SCH (08:31)
[2022-04-21] MEDS: PANTOPRAZOLE 40 MG/10 ML VIAL IV SCH (08:31)
[2022-04-21] MEDS: HEPARIN SODIUM,PORCINE/PF 5,000 UNIT/0.5 ML SYRINGE SQ SCH ×2 (09:24→16:00)
[2022-04-21 10:20] LABS: Magnesium 1.8 mg/dL (1.5-2.4)
[2022-04-21 10:33] LABS: HCT 26.3 % (37.2-46.3); HGB 8.8 g/dL (12.0-15.0); MCH 28.8 pg (27.0-32.0); MCHC 33.5 g/dL (32.0-37.0); MCV 85.9 fL (80.0-97.0); Mean Platelet Volume 11.5 fL (9.5-12.2); NRBC Per 100 WBC 0.2 /100 WBCS (0.0-0.0); Platelet Count 220 X 10*3/uL (140-440); RBC 3.06 X 10*6/uL (4.10-5.20); RDW 17.9 % (11.5-14.5); WBC 23.41 X 10*3/uL (4.50-10.00)
[2022-04-21 10:49] LABS: African American GFR (CKD) 11.1 (60.0-200.0); Anion Gap 19.6 mmol/L (10.00-18.00); BUN/Creat Ratio 19.3 Ratio (12.00-20.00); Calcium 7.4 mg/dL (8.7-10.3); Carbon Dioxide 21.7 mmol/L (20.0-27.5); Non-African American GFR(CKD) 9.6 (60.0-200.0); Potassium 3.3 mmol/L (3.5-5.5)
[2022-04-21] MEDS ORDERED: POTASSIUM CHLORIDE ER 20 MEQ TAB.ER PO STA (11:04)
--- NOTE | 2022-04-21 11:05 | P.PN ---
Subjective Patient is seen in follow-up for acute kidney injury on chronic kidney disease. Renal function stable with creatinine at 4.3 today. Has Langston catheter. Urine output documented a 600 mL in the last 24 hours. Mentation is improved. Hemodynamically stable with blood pressure on the lower side. Vital signs are stable. General: No acute distress. HEENT: Head exam is unremarkable. On nasal cannula. LUNGS: Breath sounds decreased. HEART: Rate and Rhythm are regular. ABDOMEN: Soft, no distention. EXTREMITITES: No edema. Objective - Vital Signs Vital signs: Vital Signs Temp 98.2 F 04/21/22 07:00 Pulse 57 L 04/21/22 07:00 Resp 18 04/21/22 07:00 BP 91/48 04/21/22 07:00 Pulse Ox 96 04/21/22 07:00 FiO2 Intake & Output 04/20/22 04/21/22 04/21/22 18:59 06:59 18:59 Intake Total 1570 Output Total 300 300 Balance 1270 -300 Intake: Intake, IV Titration 850 Amount DAPTOmycin 450 mg In 50 Sodium Chloride 0.9% 50 ml @ 100 mls/hr IVPB Q48H [facility] Rx#:[id number] Dextrose 5% in Water 1, 750 000 ml @ 100 mls/hr IV . [id number] [facility] with Sodium Bicarb (1 Meq/ml) 150 ml Rx#:[id number] cefTRIAXone 2 gm In 50 Sodium Chloride 0.9% 50 ml @ 100 mls/hr IVPB Q24HR [facility] Rx#:[id number] Oral 720 Output: Urine 300 300 Other: Voiding Method Indwelling Catheter Indwelling Catheter # Bowel Movements 1 2 - Labs CBC & Chem 7: 04/21/22 04:07 04/21/22 04:07 Labs: Abnormal Lab Results - Last 24 Hours (Table) 04/20/22 04/20/22 04/20/22 Range/Units 06:15 06:15 11:30 WBC 23.03 H (4.50-10.00) X 10*3/uL RBC 3.41 L (4.10-5.20) X 10*6/uL Hgb 9.6 L (12.0-15.0) g/dL Hct 29.6 L (37.2-46.3) % RDW 18.1 H (11.5-14.5) % Absolute Nucleated RBC 0.02 H (0.00-0.00) X 10*3/uL Immature Gran # 0.54 H (0.00-0.04) X 10*3/uL Neutrophils # 19.77 H (1.80-7.70) X 10*3/uL Monocytes # 1.18 H (0.20-1.00) X 10*3/uL NRBC/100 WBC Diff 0.1 H (0.0-0.0) /100 WBCS Sodium 131 L (135-145) mmol/L Potassium (3.5-5.5) mmol/L Chloride (96-109) mmol/L Carbon Dioxide 14.0 L (20.0-27.5) mmol/L Anion Gap 21.30 H (10.00-18.00) mmol/L BUN 78.2 H (9.0-27.0) mg/dL Creatinine 4.3 H (0.6-1.5) mg/dL Est GFR (CKD-EPI)AfAm 11.1 L (60.0-200.0) Est GFR (CKD-EPI)NonAf 9.6 L (60.0-200.0) Glucose 128 H (70-110) mg/dL POC Glucose (mg/dL) 160 H (70-110) mg/dL Calcium 8.0 L (8.7-10.3) mg/dL Urine Appearance (Clear) Urine Protein (Negative) Urine Blood (Negative) Urine Bilirubin (Negative) Ur Leukocyte Esterase (Negative) Urine RBC (0-5) /hpf Urine WBC (0-5) /hpf Urine Bacteria (None) /hpf Hyaline Casts (0-2) /lpf Urine Mucus (None) /hpf Urine Yeast (Budding) (None) /hpf 04/20/22 04/20/22 04/20/22 Range/Units 15:10 16:28 20:15 WBC (4.50-10.00) X 10*3/uL RBC (4.10-5.20) X 10*6/uL Hgb (12.0-15.0) g/dL Hct (37.2-46.3) % RDW (11.5-14.5) % Absolute Nucleated RBC (0.00-0.00) X 10*3/uL Immature Gran # (0.00-0.04) X 10*3/uL Neutrophils # (1.80-7.70) X 10*3/uL Monocytes # (0.20-1.00) X 10*3/uL NRBC/100 WBC Diff (0.0-0.0) /100 WBCS Sodium (135-145) mmol/L Potassium (3.5-5.5) mmol/L Chloride (96-109) mmol/L Carbon Dioxide (20.0-27.5) mmol/L Anion Gap (10.00-18.00) mmol/L BUN (9.0-27.0) mg/dL Creatinine (0.6-1.5) mg/dL Est GFR (CKD-EPI)AfAm (60.0-200.0) Est GFR (CKD-EPI)NonAf (60.0-200.0) Glucose (70-110) mg/dL POC Glucose (mg/dL) 278 H 213 H (70-110) mg/dL Calcium (8.7-10.3) mg/dL Urine Appearance Cloudy H (Clear) Urine Protein 1+ H (Negative) Urine Blood Trace H (Negative) Urine Bilirubin 2+ H (Negative) Ur Leukocyte Esterase Large H (Negative) Urine RBC 11 H (0-5) /hpf Urine WBC 33 H (0-5) /hpf Urine Bacteria Occasional H (None) /hpf Hyaline Casts 15 H (0-2) /lpf Urine Mucus Rare H (None) /hpf Urine Yeast (Budding) Few H (None) /hpf 04/21/22 04/21/22 04/21/22 Range/Units 04:07 04:07 05:59 WBC 23.41 H (4.50-10.00) X 10*3/uL RBC 3.06 L (4.10-5.20) X 10*6/uL Hgb 8.8 L (12.0-15.0) g/dL Hct 26.3 L (37.2-46.3) % RDW 17.9 H (11.5-14.5) % Absolute Nucleated RBC 0.04 H (0.00-0.00) X 10*3/uL Immature Gran # (0.00-0.04) X 10*3/uL Neutrophils # (1.80-7.70) X 10*3/uL Monocytes # (0.20-1.00) X 10*3/uL NRBC/100 WBC Diff 0.2 H (0.0-0.0) /100 WBCS Sodium (135-145) mmol/L Potassium 3.3 L (3.5-5.5) mmol/L Chloride 94 L (96-109) mmol/L Carbon Dioxide (20.0-27.5) mmol/L Anion Gap 19.60 H (10.00-18.00) mmol/L BUN 83.0 H (9.0-27.0) mg/dL Creatinine 4.3 H (0.6-1.5) mg/dL Est GFR (CKD-EPI)AfAm 11.1 L (60.0-200.0) Est GFR (CKD-EPI)NonAf 9.6 L (60.0-200.0) Glucose 134 H (70-110) mg/dL POC Glucose (mg/dL) 161 H (70-110) mg/dL Calcium 7.4 L (8.7-10.3) mg/dL Urine Appearance (Clear) Urine Protein (Negative) Urine Blood (Negative) Urine Bilirubin (Negative) Ur Leukocyte Esterase (Negative) Urine RBC (0-5) /hpf Urine WBC (0-5) /hpf Urine Bacteria (None) /hpf Hyaline Casts (0-2) /lpf Urine Mucus (None) /hpf Urine Yeast (Budding) (None) /hpf Microbiology - Last 24 Hours (Table) 04/20/22 06:15 Blood Culture - Final Blood 04/20/22 15:10 Urine Culture - Preliminary Urine,Voided 04/17/22 12:37 Blood Culture Gram Stain - Final Blood Blood Culture - Final Methicillin resist S. aureus 04/18/22 06:29 Blood Culture Gram Stain - Preliminary Blood Blood Culture - Preliminary Presumptive MRSA 04/19/22 13:05 Blood Culture Gram Stain - Preliminary Blood 04/17/22 13:40 Gram Stain - Preliminary Foot - Left Wound Culture - Preliminary Methicillin resist S. aureus Group D Enterococcus 04/19/22 13:05 Blood Culture - Final Blood Assessment and Plan Plan: Assessment: 1. Acute kidney injury secondary to ATN secondary to infection and hypotension. No hydronephrosis noted on kidney ultrasound. Creatinine 2.45 on admission and stable at 4.3. 2. Chronic kidney disease stage IIIB with baseline creatinine 1.3-1.6 in November and January 2022. 3. Left diabetic foot infection and osteomyelitis with staph bacteremia on antibiotics. ID following. 4. Metabolic acidosis secondary to acute kidney injury. On bicarb drip. Improved. 5. Diabetes mellitus. 6. Anemia of chronic kidney disease. On Aranesp. 7. Hypokalemia from poor intake and intracellular shifting from IV bicarb. Plan: Change IV fluids to normal saline. Maintain oral bicarb. Replace potassium. Maintain Langston catheter. Strict I's and O os. Avoid nephrotoxins. Continue to monitor renal function and urine output. Renal replacement therapy discussed with patient. Patient refusing any form of renal replacement therapy. Continue to assess a daily basis.
[2022-04-21 11:13] LABS: Glucose,Whole Blood 201 mg/dL (70-110)
[2022-04-21 11:19] LABS: Basophils # (A) 0.03 X 10*3/uL (0.00-0.10); Basophils % (A) 0.1 %; Eosinophils # (A) 0.08 X 10*3/uL (0.04-0.35); Eosinophils % (A) 0.3 %; Immature Grans, Automated 4.3 %; Lymphocytes # (A) 0.98 X 10*3/uL (0.90-5.00); Lymphocytes % (A) 4.2 %; Macrocytosis (M) 2+; Monocytes # (A) 0.93 X 10*3/uL (0.20-1.00); Neutrophils # (A) 20.38 X 10*3/uL (1.80-7.70); Neutrophils % (A) 87.1 %
[2022-04-21] MEDS: SODIUM CHLORIDE 0.9% 1,000 ML IV SCH (11:30)
--- NOTE | 2022-04-21 14:12 | P.PN ---
Subjective Progress Note Date: 04/21/22 The patient is a 72-year-old female who follows in the office with Dr. Rondon. She has multiple comorbid conditions and is currently admitted to the hospital with left foot infection and cellulitis. Blood cultures are also positive for methicillin-resistant staph aureus. Cardiology has been consulted for atrial fibrillation. Overnight her metoprolol has been held due to bradycardia and hypotension. Te lemetry currently shows sinus rhythm in the 50s to 60s. According to nursing staff she has been quite confused over the last several days and there is mention of starting dialysis. Family will likely make a decision within the next 24 hours. VITALS: Blood pressure 91/48, pulse 57, respiratory rate 18, SpO2 96% on 4 L nasal cannula, afebrile TELEMETRY: Sinus rhythm to sinus bradycardia LABS: WBC 23.4, hemoglobin 8.8, hematocrit 26.3, platelet 220, sodium 135, potassium 3.3, BUN 83, creatinine 4.3, magnesium 1.8, calcium 7.4 IMPRESSION: Left foot infection with cellulitis Bacteremia, MRSA Paroxysmal atrial fibrillation, currently in sinus rhythm Advanced renal disease Coronary artery disease Ischemic cardiomyopathy, EF 20-25% History diabetes History hypertension History hyperlipidemia History of CVA PLAN: Reduce metoprolol to 12-1/2 mg twice daily Holding parameters have been provided No further recommendations from the cardiac standpoint I am dictating on behalf of Dr Ovidio Paredes's history/physical and assessment/plan. Objective - Vital Signs Vital signs: Vital Signs Temp 98.2 F 04/21/22 07:00 Pulse 57 L 04/21/22 07:00 Resp 18 04/21/22 07:00 BP 91/48 04/21/22 07:00 Pulse Ox 96 04/21/22 07:00 FiO2 Intake & Output 04/20/22 04/21/22 04/21/22 18:59 06:59 18:59 Intake Total 1570 650 Output Total 300 300 Balance 1270 -300 650 Intake: Intake, IV Titration 850 650 Amount DAPTOmycin 450 mg In 50 Sodium Chloride 0.9% 50 ml @ 100 mls/hr IVPB Q48H [facility] Rx#:[id number] Dextrose 5% in Water 1, 750 300 000 ml @ 100 mls/hr IV . [id number] [facility] with Sodium Bicarb (1 Meq/ml) 150 ml Rx#:[id number] Sodium Chloride 0.9% 1, 300 000 ml @ 75 mls/hr IV . [id number] [facility] Rx#:[id number] cefTRIAXone 2 gm In 50 50 Sodium Chloride 0.9% 50 ml @ 100 mls/hr IVPB Q24HR [facility] Rx#:[id number] Oral 720 Output: Urine 300 300 Other: Voiding Method Indwelling Catheter Indwelling Catheter # Bowel Movements 1 2 - Labs CBC & Chem 7: 04/21/22 04:07 04/21/22 04:07 Labs: Abnormal Lab Results - Last 24 Hours (Table) 04/20/22 04/20/22 04/20/22 Range/Units 15:10 16:28 20:15 WBC (4.50-10.00) X 10*3/uL RBC (4.10-5.20) X 10*6/uL Hgb (12.0-15.0) g/dL Hct (37.2-46.3) % RDW (11.5-14.5) % Absolute Nucleated RBC (0.00-0.00) X 10*3/uL Immature Gran # (0.00-0.04) X 10*3/uL Neutrophils # (1.80-7.70) X 10*3/uL NRBC/100 WBC Diff (0.0-0.0) /100 WBCS Potassium (3.5-5.5) mmol/L Chloride (96-109) mmol/L Anion Gap (10.00-18.00) mmol/L BUN (9.0-27.0) mg/dL Creatinine (0.6-1.5) mg/dL Est GFR (CKD-EPI)AfAm (60.0-200.0) Est GFR (CKD-EPI)NonAf (60.0-200.0) Glucose (70-110) mg/dL POC Glucose (mg/dL) 278 H 213 H (70-110) mg/dL Calcium (8.7-10.3) mg/dL Urine Appearance Cloudy H (Clear) Urine Protein 1+ H (Negative) Urine Blood Trace H (Negative) Urine Bilirubin 2+ H (Negative) Ur Leukocyte Esterase Large H (Negative) Urine RBC 11 H (0-5) /hpf Urine WBC 33 H (0-5) /hpf Urine Bacteria Occasional H (None) /hpf Hyaline Casts 15 H (0-2) /lpf Urine Mucus Rare H (None) /hpf Urine Yeast (Budding) Few H (None) /hpf 04/21/22 04/21/22 04/21/22 Range/Units 04:07 04:07 05:59 WBC 23.41 H (4.50-10.00) X 10*3/uL RBC 3.06 L (4.10-5.20) X 10*6/uL Hgb 8.8 L (12.0-15.0) g/dL Hct 26.3 L (37.2-46.3) % RDW 17.9 H (11.5-14.5) % Absolute Nucleated RBC 0.04 H (0.00-0.00) X 10*3/uL Immature Gran # 1.01 H (0.00-0.04) X 10*3/uL Neutrophils # 20.38 H (1.80-7.70) X 10*3/uL NRBC/100 WBC Diff 0.2 H (0.0-0.0) /100 WBCS Potassium 3.3 L (3.5-5.5) mmol/L Chloride 94 L (96-109) mmol/L Anion Gap 19.60 H (10.00-18.00) mmol/L BUN 83.0 H (9.0-27.0) mg/dL Creatinine 4.3 H (0.6-1.5) mg/dL Est GFR (CKD-EPI)AfAm 11.1 L (60.0-200.0) Est GFR (CKD-EPI)NonAf 9.6 L (60.0-200.0) Glucose 134 H (70-110) mg/dL POC Glucose (mg/dL) 161 H (70-110) mg/dL Calcium 7.4 L (8.7-10.3) mg/dL Urine Appearance (Clear) Urine Protein (Negative) Urine Blood (Negative) Urine Bilirubin (Negative) Ur Leukocyte Esterase (Negative) Urine RBC (0-5) /hpf Urine WBC (0-5) /hpf Urine Bacteria (None) /hpf Hyaline Casts (0-2) /lpf Urine Mucus (None) /hpf Urine Yeast (Budding) (None) /hpf 04/21/22 Range/Units 11:12 WBC (4.50-10.00) X 10*3/uL RBC (4.10-5.20) X 10*6/uL Hgb (12.0-15.0) g/dL Hct (37.2-46.3) % RDW (11.5-14.5) % Absolute Nucleated RBC (0.00-0.00) X 10*3/uL Immature Gran # (0.00-0.04) X 10*3/uL Neutrophils # (1.80-7.70) X 10*3/uL NRBC/100 WBC Diff (0.0-0.0) /100 WBCS Potassium (3.5-5.5) mmol/L Chloride (96-109) mmol/L Anion Gap (10.00-18.00) mmol/L BUN (9.0-27.0) mg/dL Creatinine (0.6-1.5) mg/dL Est GFR (CKD-EPI)AfAm (60.0-200.0) Est GFR (CKD-EPI)NonAf (60.0-200.0) Glucose (70-110) mg/dL POC Glucose (mg/dL) 201 H (70-110) mg/dL Calcium (8.7-10.3) mg/dL Urine Appearance (Clear) Urine Protein (Negative) Urine Blood (Negative) Urine Bilirubin (Negative) Ur Leukocyte Esterase (Negative) Urine RBC (0-5) /hpf Urine WBC (0-5) /hpf Urine Bacteria (None) /hpf Hyaline Casts (0-2) /lpf Urine Mucus (None) /hpf Urine Yeast (Budding) (None) /hpf Microbiology - Last 24 Hours (Table) 04/19/22 13:05 Blood Culture Gram Stain - Preliminary Blood Blood Culture - Preliminary Presumptive Staph aureus 04/20/22 06:15 Blood Culture - Final Blood 04/20/22 15:10 Urine Culture - Preliminary Urine,Voided 04/17/22 12:37 Blood Culture Gram Stain - Final Blood Blood Culture - Final Methicillin resist S. aureus 04/18/22 06:29 Blood Culture Gram Stain - Preliminary Blood Blood Culture - Preliminary Presumptive MRSA 04/17/22 13:40 Gram Stain - Preliminary Foot - Left Wound Culture - Preliminary Methicillin resist S. aureus Group D Enterococcus
[2022-04-21 16:34] LABS: Glucose,Whole Blood 109 mg/dL (70-110)
[2022-04-21 20:14] LABS: Glucose,Whole Blood 158 mg/dL (70-110)
[2022-04-21] MEDS: METOPROLOL TARTRATE 12.5 MG TAB PO SCH (21:46)
[2022-04-22] MEDS: HEPARIN SODIUM,PORCINE/PF 5,000 UNIT/0.5 ML SYRINGE SQ SCH ×3 (00:31→17:12)
[2022-04-22] MEDS: METOCLOPRAMIDE 5 MG/ML 2 ML VIAL IVP SCH ×4 (00:31→12:00)
[2022-04-22] MEDS: ONDANSETRON ODT 4 MG TAB PO PRN (00:33)
--- NOTE | 2022-04-22 01:26 | P.PN ---
Subjective Progress Note Date: 04/20/22 This is a 72-year-old female was recently admitted with altered mental status with concerns for possible left foot cellulitis with infection and being closely monitored with multiple medical consultations. Patient did have positive blood culture showing MRSA bacteremia and patient has been placed on IV daptomycin with infectious disease following closely. Vascular surgery Dr. Gregory evaluated the patient as patient has chronic left foot ulcers from diabetes with recent amputations and recommending to continue with IV antibiotics and local wound care. Patient will likely require IV antibiotics on discharge. Patient is currently afebrile denies chest pain or worsening shortness of breath. Rupa ent is currently maintained on 5 L and weaning as tolerated. Daughter at the bedside expressed concern that patient would like to remain no code and her chart was showing full code as of this morning. CODE STATUS was addressed again and will continue with no code. Patient with multiple medical comorbidities making prognosis extremely guarded. Patient with poor oral intake and will add Magic cups and encouraged oral intake. Continue local wound care per ID recommendations. Nephrology following as well patient is maintained on a sodium bicarbonate drip area recommend follow-up labs in the a.m. 04/20/2022 Patient is resting in bed. Awake alert and oriented. Currently on oxygen at 4 to 5 L via nasal cannula. Renal function showed 3.5. Other laboratory showed WBC 19.8 hemoglobin 8.8 and platelets 226. ID and nephrology is on board. Cultures growing presumptive staph bodies. MRSA and repeat cultures are negative so far. Patient remains on antibiotics abnormal daptomycin and Flagyl and also on ceftriaxone. IV hydration with normal saline. Current medications reviewed. Review of systems: Constitutional: No reports of fatigue, fever, or chills Cardiovascular: No reports of chest pain or palpitations Respiratory: No reports of worsening shortness of breath or cough GI: reports of occasional nausea, no reports of of vomiting, reports not much of an appetite : No reports of dysuria or retention Neurovascular: reports of generalized weakness All medications have been reviewed Active Medications Acetaminophen (Acetaminophen Tab 325 Mg Tab) 650 mg PO Q6HR PRN PRN Reason: Mild Pain or Fever > 100.5 Amiodarone HCl (Amiodarone 200 Mg Tab) 200 mg PO DAILY@1100 [facility] Last Admin: 04/19/22 09:58 Dose: 200 mg Dextrose/Water (Dextrose 50% Syringe 50 Ml) 25 ml IVP PER PROTOCOL PRN; Protocol PRN Reason: Hypoglycemia Duloxetine HCl (Duloxetine Hcl 60 Mg Capsule.Dr) 60 mg PO DAILY@1100 [facility] Last Admin: 04/19/22 09:58 Dose: 60 mg Gabapentin (Gabapentin 300 Mg Cap) 300 mg PO HS PRN PRN Reason: Pain Daptomycin 450 mg/ Sodium (Chloride) 50 mls @ 100 mls/hr IVPB Q48H [facility]; Protocol Sodium Bicarbonate 150 ml/ (Dextrose/Water) 1,150 mls @ 75 mls/hr IV .[id number] [facility] Last Admin: 04/19/22 13:21 Dose: 75 mls/hr Insulin Aspart (Insulin Aspart (Novolog) 100 Unit/Ml Vial) 0 unit SQ ACHS [facility]; Protocol Last Admin: 04/19/22 13:15 Dose: Not Given Metoprolol Tartrate (Metoprolol Tartrate 25 Mg Tab) 25 mg PO BID [facility] Last Admin: 04/19/22 09:54 Dose: 25 mg Naloxone HCl (Naloxone 0.4 Mg/Ml 1 Ml Vial) 0.2 mg IV Q2M PRN PRN Reason: Opioid Reversal Ondansetron HCl (Ondansetron Odt 4 Mg Tab) 4 mg PO Q8HR PRN PRN Reason: Nausea Last Admin: 04/19/22 12:59 Dose: 4 mg Pantoprazole Sodium (Pantoprazole 40 Mg/10 Ml Vial) 40 mg IV DAILY [facility] Last Admin: 04/19/22 09:54 Dose: 40 mg PHYSICAL EXAMINATION: GENERAL: The patient is alert and oriented x3, thin built, elderly appearing female HEENT: Pupils are round and equally reacting to light. EOMI. no scleral icterus. No conjunctival pallor. Normocephalic, atraumatic. No pharyngeal erythema. No th yromegaly. CARDIOVASCULAR: S1 and S2 muffled PULMONARY: diminished breath sounds bilaterally with some scattered rhonchi noted. ABDOMEN: soft. Nontender on exam. non-distended, normoactive bowel sounds. No palpable organomegaly. MUSCULOSKELETAL: No joint swelling or deformity. EXTREMITIES: No cyanosis, clubbing, or pedal edema. Left foot wound currently dressed this morning and dressing is dry and intact NEUROLOGICAL: Gross neurological examination did not reveal any focal deficits. Diffuse weakness SKIN: No rashes. Assessment: Acute kidney injury secondary ATN secondary infection hypotension. Currently on bicarb drip. Acute hypoxic respiratory failure secondary to COPD exacerbation Acute on chronic congestive heart failure, with systolic dysfunction, acute exacerbation Diabetic foot ulcer on the left associated with poorly controlled diabetes mellitus, type II, chronic foot ulcer with concerns of possible cellulitis, present on admission, osteomyelitis ruled out on the bone scan Staph Bacteremia secondary to chronic left foot ulcer Paroxysmal atrial fibrillation with RVR, currently sinus rhythm History of coronary artery disease with CABG History of ischemic cardiomyopathy, EF 20-25% Hypertension Hyperlipidemia Chronic obstructive pulmonary disease History of CVA Diabetes mellitus, type II GI prophylaxis DVT prophylaxis No code Plan: Recommend to continue with current medications and management with multiple medical consultations including nephrology, cardiology, infectious disease following. Patient with shortness of breath maintained on 5 L and weaning as tolerated, will add incentive spirometer and encourage the patient to use at least 10 times every hour while awake Patient continuing to eat very little with not much of an appetite recommend monitoring Accu-Cheks before meals and at bedtime and as needed and also encouraging oral intake. Daughter bring in foods of choice and also will add Magic cups Patient maintained on a sodium bicarbonate drip and obtaining ultrasound of the kidneys with nephrology following and recommend repeat labs Patient is continued on IV daptomycin with infectious disease following for persistent bacteremia and awaiting repeat blood cultures to show clearance of bacteremia. Patient will likely need IV medications on discharge Due to worsening renal function, renal replacement therapy was discussed with the patient and family. Recommend continue with local wound care of the left lower extremity PT/OT to evaluate the patient CODE STATUS was again addressed with patient and daughter who is her power of senior trial attorney at the bedside and expressed her wishes to remain no code Due to multiple complex medical issues, prognosis is guarded Objective - Vital Signs Vital signs: Vital Signs Temp 97.6 F 04/20/22 19:21 Pulse 64 04/20/22 19:21 Resp 18 04/20/22 19:21 BP 109/58 04/20/22 19:21 Pulse Ox 96 04/20/22 19:21 FiO2 Intake & Output 04/20/22 04/20/22 04/21/22 06:59 18:59 06:59 Intake Total 1570 Output Total 300 Balance 1270 Intake: Intake, IV Titration 850 Amount DAPTOmycin 450 mg In 50 Sodium Chloride 0.9% 50 ml @ 100 mls/hr IVPB Q48H [facility] Rx#:[id number] Dextrose 5% in Water 1, 750 000 ml @ 100 mls/hr IV . [id number] [facility] with Sodium Bicarb (1 Meq/ml) 150 ml Rx#:[id number] cefTRIAXone 2 gm In 50 Sodium Chloride 0.9% 50 ml @ 100 mls/hr IVPB Q24HR [facility] Rx#:[id number] Oral 720 Output: Urine 300 Other: Voiding Method Diaper Indwelling Catheter # Voids 1 # Bowel Movements 2 1 - Labs CBC & Chem 7: 04/21/22 04:07 04/21/22 04:07 Labs: Abnormal Lab Results - Last 24 Hours (Table) 04/20/22 04/20/22 04/20/22 Range/Units 02:01 05:53 06:15 WBC 23.03 H (4.50-10.00) X 10*3/uL RBC 3.41 L (4.10-5.20) X 10*6/uL Hgb 9.6 L (12.0-15.0) g/dL Hct 29.6 L (37.2-46.3) % RDW 18.1 H (11.5-14.5) % Absolute Nucleated RBC 0.02 H (0.00-0.00) X 10*3/uL Immature Gran # 0.54 H (0.00-0.04) X 10*3/uL Neutrophils # 19.77 H (1.80-7.70) X 10*3/uL Monocytes # 1.18 H (0.20-1.00) X 10*3/uL NRBC/100 WBC Diff 0.1 H (0.0-0.0) /100 WBCS Sodium (135-145) mmol/L Carbon Dioxide (20.0-27.5) mmol/L Anion Gap (10.00-18.00) mmol/L BUN (9.0-27.0) mg/dL Creatinine (0.6-1.5) mg/dL Est GFR (CKD-EPI)AfAm (60.0-200.0) Est GFR (CKD-EPI)NonAf (60.0-200.0) Glucose (70-110) mg/dL POC Glucose (mg/dL) 165 H 163 H (70-110) mg/dL Calcium (8.7-10.3) mg/dL Urine Appearance (Clear) Urine Protein (Negative) Urine Blood (Negative) Urine Bilirubin (Negative) Ur Leukocyte Esterase (Negative) Urine RBC (0-5) /hpf Urine WBC (0-5) /hpf Urine Bacteria (None) /hpf Hyaline Casts (0-2) /lpf Urine Mucus (None) /hpf Urine Yeast (Budding) (None) /hpf 04/20/22 04/20/22 04/20/22 Range/Units 06:15 11:30 15:10 WBC (4.50-10.00) X 10*3/uL RBC (4.10-5.20) X 10*6/uL Hgb (12.0-15.0) g/dL Hct (37.2-46.3) % RDW (11.5-14.5) % Absolute Nucleated RBC (0.00-0.00) X 10*3/uL Immature Gran # (0.00-0.04) X 10*3/uL Neutrophils # (1.80-7.70) X 10*3/uL Monocytes # (0.20-1.00) X 10*3/uL NRBC/100 WBC Diff (0.0-0.0) /100 WBCS Sodium 131 L (135-145) mmol/L Carbon Dioxide 14.0 L (20.0-27.5) mmol/L Anion Gap 21.30 H (10.00-18.00) mmol/L BUN 78.2 H (9.0-27.0) mg/dL Creatinine 4.3 H (0.6-1.5) mg/dL Est GFR (CKD-EPI)AfAm 11.1 L (60.0-200.0) Est GFR (CKD-EPI)NonAf 9.6 L (60.0-200.0) Glucose 128 H (70-110) mg/dL POC Glucose (mg/dL) 160 H (70-110) mg/dL Calcium 8.0 L (8.7-10.3) mg/dL Urine Appearance Cloudy H (Clear) Urine Protein 1+ H (Negative) Urine Blood Trace H (Negative) Urine Bilirubin 2+ H (Negative) Ur Leukocyte Esterase Large H (Negative) Urine RBC 11 H (0-5) /hpf Urine WBC 33 H (0-5) /hpf Urine Bacteria Occasional H (None) /hpf Hyaline Casts 15 H (0-2) /lpf Urine Mucus Rare H (None) /hpf Urine Yeast (Budding) Few H (None) /hpf 04/20/22 04/20/22 Range/Units 16:28 20:15 WBC (4.50-10.00) X 10*3/uL RBC (4.10-5.20) X 10*6/uL Hgb (12.0-15.0) g/dL Hct (37.2-46.3) % RDW (11.5-14.5) % Absolute Nucleated RBC (0.00-0.00) X 10*3/uL Immature Gran # (0.00-0.04) X 10*3/uL Neutrophils # (1.80-7.70) X 10*3/uL Monocytes # (0.20-1.00) X 10*3/uL NRBC/100 WBC Diff (0.0-0.0) /100 WBCS Sodium (135-145) mmol/L Carbon Dioxide (20.0-27.5) mmol/L Anion Gap (10.00-18.00) mmol/L BUN (9.0-27.0) mg/dL Creatinine (0.6-1.5) mg/dL Est GFR (CKD-EPI)AfAm (60.0-200.0) Est GFR (CKD-EPI)NonAf (60.0-200.0) Glucose (70-110) mg/dL POC Glucose (mg/dL) 278 H 213 H (70-110) mg/dL Calcium (8.7-10.3) mg/dL Urine Appearance (Clear) Urine Protein (Negative) Urine Blood (Negative) Urine Bilirubin (Negative) Ur Leukocyte Esterase (Negative) Urine RBC (0-5) /hpf Urine WBC (0-5) /hpf Urine Bacteria (None) /hpf Hyaline Casts (0-2) /lpf Urine Mucus (None) /hpf Urine Yeast (Budding) (None) /hpf Microbiology - Last 24 Hours (Table) 04/17/22 12:37 Blood Culture Gram Stain - Final Blood Blood Culture - Final Methicillin resist S. aureus 04/18/22 06:29 Blood Culture Gram Stain - Preliminary Blood Blood Culture - Preliminary Presumptive MRSA 04/19/22 13:05 Blood Culture Gram Stain - Preliminary Blood 04/17/22 13:40 Gram Stain - Preliminary Foot - Left Wound Culture - Preliminary Methicillin resist S. aureus Group D Enterococcus 04/19/22 13:05 Blood Culture - Final Blood Assessment and Plan Time with Patient: Greater than 30
--- NOTE | 2022-04-22 01:28 | P.PN ---
Subjective Progress Note Date: 04/21/22 This is a 72-year-old female was recently admitted with altered mental status with concerns for possible left foot cellulitis with infection and being closely monitored with multiple medical consultations. Patient did have positive blood culture showing MRSA bacteremia and patient has been placed on IV daptomycin with infectious disease following closely. Vascular surgery Dr. Gregory evaluated the patient as patient has chronic left foot ulcers from diabetes with recent amputations and recommending to continue with IV antibiotics and local wound care. Patient will likely require IV antibiotics on discharge. Patient is currently afebrile denies chest pain or worsening shortness of breath. Rupa ent is currently maintained on 5 L and weaning as tolerated. Daughter at the bedside expressed concern that patient would like to remain no code and her chart was showing full code as of this morning. CODE STATUS was addressed again and will continue with no code. Patient with multiple medical comorbidities making prognosis extremely guarded. Patient with poor oral intake and will add Magic cups and encouraged oral intake. Continue local wound care per ID recommendations. Nephrology following as well patient is maintained on a sodium bicarbonate drip area recommend follow-up labs in the a.m. 04/20/2022 Patient is resting in bed. Awake alert and oriented. Currently on oxygen at 4 to 5 L via nasal cannula. Renal function showed 3.5. Other laboratory showed WBC 19.8 hemoglobin 8.8 and platelets 226. ID and nephrology is on board. Cultures growing presumptive staph bodies. MRSA and repeat cultures are negative so far. Patient remains on antibiotics abnormal daptomycin and Flagyl and also on ceftriaxone. IV hydration with normal saline. 04/21/2022 Patient is currently resting in bed. Awake alert and mentation slightly improved. Remains on oxygen at 4 L via nasal cannula.. Tendon function is worsening with creatinine 4.3. Nephrology recommends stent replacement therapy and family discussed about comfort. And possible transfer to hospice care.. Repeat blood cultures have been negative. Patient is being Continued on Wound care and also antibiotics daptomycin ceftriaxone and Flagyl. ID and nephrology is on board. Prognosis guarded. Current medications reviewed. Review of systems: Constitutional: No reports of fatigue, fever, or chills Cardiovascular: No reports of chest pain or palpitations Respiratory: No reports of worsening shortness of breath or cough GI: reports of occasional nausea, no reports of of vomiting, reports not much of an appetite : No reports of dysuria or retention Neurovascular: reports of generalized weakness All medications have been reviewed Active Medications Acetaminophen (Acetaminophen Tab 325 Mg Tab) 650 mg PO Q6HR PRN PRN Reason: Mild Pain or Fever > 100.5 Amiodarone HCl (Amiodarone 200 Mg Tab) 200 mg PO DAILY@1100 [facility] Last Admin: 04/19/22 09:58 Dose: 200 mg Dextrose/Water (Dextrose 50% Syringe 50 Ml) 25 ml IVP PER PROTOCOL PRN; Protocol PRN Reason: Hypoglycemia Duloxetine HCl (Duloxetine Hcl 60 Mg Capsule.Dr) 60 mg PO DAILY@1100 [facility] Last Admin: 04/19/22 09:58 Dose: 60 mg Gabapentin (Gabapentin 300 Mg Cap) 300 mg PO HS PRN PRN Reason: Pain Daptomycin 450 mg/ Sodium (Chloride) 50 mls @ 100 mls/hr IVPB Q48H [facility]; Protocol Sodium Bicarbonate 150 ml/ (Dextrose/Water) 1,150 mls @ 75 mls/hr IV .[id number] [facility] Last Admin: 04/19/22 13:21 Dose: 75 mls/hr Insulin Aspart (Insulin Aspart (Novolog) 100 Unit/Ml Vial) 0 unit SQ ACHS [facility]; Protocol Last Admin: 04/19/22 13:15 Dose: Not Given Metoprolol Tartrate (Metoprolol Tartrate 25 Mg Tab) 25 mg PO BID [facility] Last Admin: 04/19/22 09:54 Dose: 25 mg Naloxone HCl (Naloxone 0.4 Mg/Ml 1 Ml Vial) 0.2 mg IV Q2M PRN PRN Reason: Opioid Reversal Ondansetron HCl (Ondansetron Odt 4 Mg Tab) 4 mg PO Q8HR PRN PRN Reason: Nausea Last Admin: 04/19/22 12:59 Dose: 4 mg Pantoprazole Sodium (Pantoprazole 40 Mg/10 Ml Vial) 40 mg IV DAILY [facility] Last Admin: 04/19/22 09:54 Dose: 40 mg PHYSICAL EXAMINATION: GENERAL: The patient is alert and oriented x3, thin built, elderly appearing female HEENT: Pupils are round and equally reacting to light. EOMI. no scleral icterus. No conjunctival pallor. Normocephalic, atraumatic. No pharyngeal erythema. No thyromegaly. CARDIOVASCULAR: S1 and S2 muffled PULMONARY: diminished breath sounds bilaterally with some scattered rhonchi noted. ABDOMEN: soft. Nontender on exam. non-distended, normoactive bowel sounds. No palpable organomegaly. MUSCULOSKELETAL: No joint swelling or deformity. EXTREMITIES: No cyanosis, clubbing, or pedal edema. Left foot wound currently dressed this morning and dressing is dry and intact NEUROLOGICAL: Gross neurological examination did not reveal any focal deficits. Diffuse weakness SKIN: No rashes. Assessment: Acute kidney injury secondary ATN secondary infection hypotension. Currently on bicarb drip. Acute hypoxic respiratory failure secondary to COPD exacerbation Acute on chronic congestive heart failure, with systolic dysfunction, acute exacerbation Diabetic foot ulcer on the left associated with poorly controlled diabetes mellitus, type II, chronic foot ulcer with concerns of possible cellulitis, present on admission, osteomyelitis ruled out on the bone scan Staph Bacteremia secondary to chronic left foot ulcer Paroxysmal atrial fibrillation with RVR, currently sinus rhythm History of coronary artery disease with CABG History of ischemic cardiomyopathy, EF 20-25% Hypertension Hyperlipidemia Chronic obstructive pulmonary disease History of CVA Diabetes mellitus, type II GI prophylaxis DVT prophylaxis No code Plan: Recommend to continue with current medications and management with multiple medical consultations including nephrology, cardiology, infectious disease following. Patient with shortness of breath maintained on 5 L and weaning as tolerated, will add incentive spirometer and encourage the patient to use at least 10 times every hour while awake Patient continuing to eat very little with not much of an appetite recommend monitoring Accu-Cheks before meals and at bedtime and as needed and also e ncouraging oral intake. Daughter bring in foods of choice and also will add Magic cups Patient maintained on a sodium bicarbonate drip and obtaining ultrasound of the kidneys with nephrology following and recommend repeat labs Patient is continued on IV daptomycin with infectious disease following for persistent bacteremia and awaiting repeat blood cultures to show clearance of bacteremia. Patient will likely need IV medications on discharge Due to worsening renal function, renal replacement therapy was discussed with the patient and family. Recommend continue with local wound care of the left lower extremity PT/OT to evaluate the patient CODE STATUS was again addressed with patient and daughter who is her power of assistant attorney general at the bedside and expressed her wishes to remain no code And would like to discuss with hospice care. Due to multiple complex medical issues, prognosis is guarded Objective - Vital Signs Vital signs: Vital Signs Temp 97.9 F 04/21/22 19:27 Pulse 60 04/21/22 21:00 Resp 18 04/21/22 19:27 BP 90/52 04/21/22 21:00 Pulse Ox 96 04/21/22 19:27 FiO2 Intake & Output 04/21/22 04/21/22 04/22/22 06:59 18:59 06:59 Intake Total 1130 Output Total 300 Balance -300 1130 Intake: Intake, IV Titration 650 Amount Dextrose 5% in Water 1, 300 000 ml @ 100 mls/hr IV . [id number] [facility] with Sodium Bicarb (1 Meq/ml) 150 ml Rx#:[id number] Sodium Chloride 0.9% 1, 300 000 ml @ 75 mls/hr IV . [id number] [facility] Rx#:[id number] cefTRIAXone 2 gm In 50 Sodium Chloride 0.9% 50 ml @ 100 mls/hr IVPB Q24HR [facility] Rx#:[id number] Oral 480 Output: Urine 300 Other: Voiding Method Indwelling Catheter # Bowel Movements 2 3 - Labs CBC & Chem 7: 04/21/22 04:07 04/21/22 04:07 Labs: Abnormal Lab Results - Last 24 Hours (Table) 04/21/22 04/21/22 04/21/22 Range/Units 04:07 04:07 05:59 WBC 23.41 H (4.50-10.00) X 10*3/uL RBC 3.06 L (4.10-5.20) X 10*6/uL Hgb 8.8 L (12.0-15.0) g/dL Hct 26.3 L (37.2-46.3) % RDW 17.9 H (11.5-14.5) % Absolute Nucleated RBC 0.04 H (0.00-0.00) X 10*3/uL Immature Gran # 1.01 H (0.00-0.04) X 10*3/uL Neutrophils # 20.38 H (1.80-7.70) X 10*3/uL NRBC/100 WBC Diff 0.2 H (0.0-0.0) /100 WBCS Potassium 3.3 L (3.5-5.5) mmol/L Chloride 94 L (96-109) mmol/L Anion Gap 19.60 H (10.00-18.00) mmol/L BUN 83.0 H (9.0-27.0) mg/dL Creatinine 4.3 H (0.6-1.5) mg/dL Est GFR (CKD-EPI)AfAm 11.1 L (60.0-200.0) Est GFR (CKD-EPI)NonAf 9.6 L (60.0-200.0) Glucose 134 H (70-110) mg/dL POC Glucose (mg/dL) 161 H (70-110) mg/dL Calcium 7.4 L (8.7-10.3) mg/dL 04/21/22 04/21/22 Range/Units 11:12 20:12 WBC (4.50-10.00) X 10*3/uL RBC (4.10-5.20) X 10*6/uL Hgb (12.0-15.0) g/dL Hct (37.2-46.3) % RDW (11.5-14.5) % Absolute Nucleated RBC (0.00-0.00) X 10*3/uL Immature Gran # (0.00-0.04) X 10*3/uL Neutrophils # (1.80-7.70) X 10*3/uL NRBC/100 WBC Diff (0.0-0.0) /100 WBCS Potassium (3.5-5.5) mmol/L Chloride (96-109) mmol/L Anion Gap (10.00-18.00) mmol/L BUN (9.0-27.0) mg/dL Creatinine (0.6-1.5) mg/dL Est GFR (CKD-EPI)AfAm (60.0-200.0) Est GFR (CKD-EPI)NonAf (60.0-200.0) Glucose (70-110) mg/dL POC Glucose (mg/dL) 201 H 158 H (70-110) mg/dL Calcium (8.7-10.3) mg/dL Microbiology - Last 24 Hours (Table) 04/20/22 15:10 Urine Culture - Final Urine,Voided 04/18/22 06:29 Blood Culture Gram Stain - Final Blood Blood Culture - Final Methicillin resist S. aureus 04/20/22 06:15 Blood Culture Gram Stain - Preliminary Blood 04/17/22 13:40 Gram Stain - Final Foot - Left Wound Culture - Final Methicillin resist S. aureus Enterococcus faecalis VRE 04/19/22 13:05 Blood Culture Gram Stain - Preliminary Blood Blood Culture - Preliminary Presumptive Staph aureus 04/20/22 06:15 Blood Culture - Final Blood
[2022-04-22] MEDS: SODIUM CHLORIDE 0.9% 1,000 ML IV SCH ×2 (01:49→17:15)
[2022-04-22 05:49] LABS: Glucose,Whole Blood 149 mg/dL (70-110)
[2022-04-22] MEDS: INSULIN ASPART (NovoLOG) 100 UNIT/ML VIAL SQ SCH ×3 (06:08→17:14)
--- NOTE | 2022-04-22 07:46 | P.PN ---
Subjective Progress Note Date: 04/21/22 Principal diagnosis: Left diabetic foot ulcer and bacteremia Patient is a 72-year-old female with multiple comorbidities this patient who did have a history of left diabetic foot infection with osteomyelitis for the patient has completed her antibiotic therapy patient will follow with Dr. Gregory at [facility] care center patient mention that the wound on the lateral aspect of the left foot, patient has been part of the hospital for decreased level of consciousness weakness she did have a low-grade fever and on did have evidence of MRSA bacteremia abnormal x-ray of the left foot. on today's evaluation that is 04/21/2022, the patient remains to be afebrile, the patient is breathing comfortably on 4 L nasal cannula oxygen, the patient noticed to have worsening of her kidney function seemed to be sleepy lethargic today and did not provide any history no vomiting or diarrhea has been reported by the daughter at the bedside Objective - Vital Signs Vital signs: Vital Signs Temp 97.9 F 04/21/22 13:52 Pulse 52 L 04/21/22 13:52 Resp 18 04/21/22 13:52 BP 96/51 04/21/22 13:52 Pulse Ox 97 04/21/22 13:52 FiO2 Intake & Output 04/20/22 04/21/22 04/21/22 18:59 06:59 18:59 Intake Total 1570 650 Output Total 300 300 Balance 1270 -300 650 Intake: Intake, IV Titration 850 650 Amount DAPTOmycin 450 mg In 50 Sodium Chloride 0.9% 50 ml @ 100 mls/hr IVPB Q48H [facility] Rx#:[id number] Dextrose 5% in Water 1, 750 300 000 ml @ 100 mls/hr IV . [id number] [facility] with Sodium Bicarb (1 Meq/ml) 150 ml Rx#:[id number] Sodium Chloride 0.9% 1, 300 000 ml @ 75 mls/hr IV . [id number] [facility] Rx#:[id number] cefTRIAXone 2 gm In 50 50 Sodium Chloride 0.9% 50 ml @ 100 mls/hr IVPB Q24HR [facility] Rx#:[id number] Oral 720 Output: Urine 300 300 Other: Voiding Method Indwelling Catheter Indwelling Catheter # Bowel Movements 1 2 - Exam GENERAL DESCRIPTION: An elderly female lying in bed in no distress RESPIRATORY SYSTEM: Unlabored breathing , decreased breath sounds at bases HEART: S1 S2 regular rate and rhythm , ABDOMEN: Soft , no tenderness EXTREMITIES: Left foot lateral border wound at the base of the fifth toe has dried out no drainage - Labs CBC & Chem 7: 04/21/22 04:07 04/21/22 04:07 Labs: Abnormal Lab Results - Last 24 Hours (Table) 04/20/22 04/21/22 04/21/22 Range/Units 20:15 04:07 04:07 WBC 23.41 H (4.50-10.00) X 10*3/uL RBC 3.06 L (4.10-5.20) X 10*6/uL Hgb 8.8 L (12.0-15.0) g/dL Hct 26.3 L (37.2-46.3) % RDW 17.9 H (11.5-14.5) % Absolute Nucleated RBC 0.04 H (0.00-0.00) X 10*3/uL Immature Gran # 1.01 H (0.00-0.04) X 10*3/uL Neutrophils # 20.38 H (1.80-7.70) X 10*3/uL NRBC/100 WBC Diff 0.2 H (0.0-0.0) /100 WBCS Potassium 3.3 L (3.5-5.5) mmol/L Chloride 94 L (96-109) mmol/L Anion Gap 19.60 H (10.00-18.00) mmol/L BUN 83.0 H (9.0-27.0) mg/dL Creatinine 4.3 H (0.6-1.5) mg/dL Est GFR (CKD-EPI)AfAm 11.1 L (60.0-200.0) Est GFR (CKD-EPI)NonAf 9.6 L (60.0-200.0) Glucose 134 H (70-110) mg/dL POC Glucose (mg/dL) 213 H (70-110) mg/dL Calcium 7.4 L (8.7-10.3) mg/dL 04/21/22 04/21/22 Range/Units 05:59 11:12 WBC (4.50-10.00) X 10*3/uL RBC (4.10-5.20) X 10*6/uL Hgb (12.0-15.0) g/dL Hct (37.2-46.3) % RDW (11.5-14.5) % Absolute Nucleated RBC (0.00-0.00) X 10*3/uL Immature Gran # (0.00-0.04) X 10*3/uL Neutrophils # (1.80-7.70) X 10*3/uL NRBC/100 WBC Diff (0.0-0.0) /100 WBCS Potassium (3.5-5.5) mmol/L Chloride (96-109) mmol/L Anion Gap (10.00-18.00) mmol/L BUN (9.0-27.0) mg/dL Creatinine (0.6-1.5) mg/dL Est GFR (CKD-EPI)AfAm (60.0-200.0) Est GFR (CKD-EPI)NonAf (60.0-200.0) Glucose (70-110) mg/dL POC Glucose (mg/dL) 161 H 201 H (70-110) mg/dL Calcium (8.7-10.3) mg/dL Microbiology - Last 24 Hours (Table) 04/18/22 06:29 Blood Culture Gram Stain - Final Blood Blood Culture - Final Methicillin resist S. aureus 04/20/22 06:15 Blood Culture Gram Stain - Preliminary Blood 04/17/22 13:40 Gram Stain - Final Foot - Left Wound Culture - Final Methicillin resist S. aureus Enterococcus faecalis VRE 04/19/22 13:05 Blood Culture Gram Stain - Preliminary Blood Blood Culture - Preliminary Presumptive Staph aureus 04/20/22 06:15 Blood Culture - Final Blood 04/20/22 15:10 Urine Culture - Preliminary Urine,Voided 04/17/22 12:37 Blood Culture Gram Stain - Final Blood Blood Culture - Final Methicillin resist S. aureus Assessment and Plan (1) Bacteremia Current Visit: Yes Status: Acute Code(s): R78.81 - BACTEREMIA SNOMED Code(s): 6916612 (2) Diabetic foot ulcer associated with type 2 diabetes mellitus Current Visit: No Status: Acute Code(s): E11.621 - TYPE 2 DIABETES MELLITUS WITH FOOT ULCER SNOMED Code(s): 5263159895811 Plan: 1patient noted to have a history of left diabetic foot infection and osteomyelitis for the patient has completed her antibiotic therapy many months ago and the patient was almost healed except a small area on the lateral aspect of the left foot which was a scabbed over removed by the home care nurse patient currently do not have any open wound on the fourth toe however significant abnormality has been described on the plain x-rays. 2patient did have elevated CRP of 23.50 and a sed rate of 71. 3bone scan was negative for osteomyelitis 4 patient also have a positive blood culture with MRSA, blood cultures repeat 04/18/2019 as well as 04/19/2022 also positive, concerning for possible deep/endovascular source 5patient to continue with the daptomycin, however keeping in mind her worsening kidney function and family is leaning more towards hospice oriented care we will hold on adding any further workup at this point Time with Patient: Less than 30
[2022-04-22 08:46] LABS: Basophils # (A) 0.12 X 10*3/uL (0.00-0.10); Basophils % (A) 0.5 %; Eosinophils # (A) 0.17 X 10*3/uL (0.04-0.35); Eosinophils % (A) 0.8 %; HCT 26.9 % (37.2-46.3); HGB 8.8 g/dL (12.0-15.0); Immature Grans, Automated 3.9 %; Lymphocytes # (A) 1.33 X 10*3/uL (0.90-5.00); MCH 28.3 pg (27.0-32.0); MCHC 32.7 g/dL (32.0-37.0); MCV 86.5 fL (80.0-97.0); Mean Platelet Volume 12.2 fL (9.5-12.2); Monocytes # (A) 1.09 X 10*3/uL (0.20-1.00); Monocytes % (A) 4.9 %; NRBC Per 100 WBC 0.1 /100 WBCS (0.0-0.0); Neutrophils # (A) 18.55 X 10*3/uL (1.80-7.70); Neutrophils % (A) 83.9 %; Platelet Count 201 X 10*3/uL (140-440); RBC 3.11 X 10*6/uL (4.10-5.20); RDW 17.9 % (11.5-14.5); WBC 22.12 X 10*3/uL (4.50-10.00)
[2022-04-22 09:06] LABS: Magnesium 1.7 mg/dL (1.5-2.4)
[2022-04-22 09:10] LABS: African American GFR (CKD) 11.8 (60.0-200.0); BUN/Creat Ratio 20.12 Ratio (12.00-20.00); Blood Urea Nitrogen 82.5 mg/dL (9.0-27.0); Calcium 6.8 mg/dL (8.7-10.3); Non-African American GFR(CKD) 10.1 (60.0-200.0); Potassium 3.5 mmol/L (3.5-5.5)
--- NOTE | 2022-04-22 09:40 | P.PN ---
Subjective Progress Note Date: 04/22/22 The patient is a 72-year-old female who follows in the office with Dr. Soto. She has multiple comorbid conditions and is currently admitted to the hospital with left foot infection and cellulitis. Blood cultures are also positive for methicillin-resistant staph aureus. Cardiology has been consulted for atrial fibrillation. 04/22 Yesterday, metoprolol was adjusted to 12.5 mg twice daily with parameters. Patient has had no bradycardic episodes overnight blood pressure is on the lower side but is stable knowing that her EF is 20%. Patient has no new concerns. There is discussion regarding hospice care. Telemetry currently shows sinus rhythm in the 50s to 60s. VITALS: Blood pressure 90/44, pulse 59, respiratory rate 16, SpO2 90% on 4 L nasal cannula, afebrile TELEMETRY: Sinus rhythm to sinus bradycardia LABS: WBC 22.1, hemoglobin 8.8, platelet count 201. Potassium 3.5, BUN 82 and creat inine 4.1. Calcium 6.8. IMPRESSION: Left foot infection with cellulitis Bacteremia, MRSA Paroxysmal atrial fibrillation, currently in sinus rhythm Acute kidney injury Coronary artery disease Ischemic cardiomyopathy, EF 20-25% History diabetes History hypertension History hyperlipidemia History of CVA PLAN: Continue reduced metoprolol 12-1/2 mg twice daily Holding parameters have been provided No further recommendations from the cardiac standpoint Cardiology we will sign off and follow on an as-needed basis. Please reconsult if there are new concerns. Nurse practitioner note has been reviewed, I agree with the documented findings and plan of care. Patient was seen and examined. Objective - Vital Signs Vital signs: Vital Signs Temp 98.6 F 04/22/22 06:54 Pulse 59 L 04/22/22 06:54 Resp 17 04/22/22 08:00 BP 90/44 04/22/22 06:54 Pulse Ox 90 L 04/22/22 06:54 FiO2 Intake & Output 04/21/22 04/22/22 04/22/22 18:59 06:59 18:59 Intake Total 1130 950 Output Total 225 Balance 1130 725 Intake: Intake, IV Titration 650 950 Amount Dextrose 5% in Water 1, 300 000 ml @ 100 mls/hr IV . [id number] [facility] with Sodium Bicarb (1 Meq/ml) 150 ml Rx#:[id number] Sodium Chloride 0.9% 1, 300 900 000 ml @ 75 mls/hr IV . [id number] [facility] Rx#:[id number] cefTRIAXone 2 gm In 50 50 Sodium Chloride 0.9% 50 ml @ 100 mls/hr IVPB Q24HR [facility] Rx#:[id number] Oral 480 Output: Urine 225 Other: Voiding Method Indwelling Catheter Indwelling Catheter # Bowel Movements 3 1 - Labs CBC & Chem 7: 04/22/22 03:40 04/22/22 03:40 Labs: Abnormal Lab Results - Last 24 Hours (Table) 04/21/22 04/21/22 04/21/22 Range/Units 04:07 04:07 11:12 WBC 23.41 H (4.50-10.00) X 10*3/uL RBC 3.06 L (4.10-5.20) X 10*6/uL Hgb 8.8 L (12.0-15.0) g/dL Hct 26.3 L (37.2-46.3) % RDW 17.9 H (11.5-14.5) % Absolute Nucleated RBC 0.04 H (0.00-0.00) X 10*3/uL Immature Gran # 1.01 H (0.00-0.04) X 10*3/uL Neutrophils # 20.38 H (1.80-7.70) X 10*3/uL Monocytes # (0.20-1.00) X 10*3/uL Basophils # (0.00-0.10) X 10*3/uL NRBC/100 WBC Diff 0.2 H (0.0-0.0) /100 WBCS Potassium 3.3 L (3.5-5.5) mmol/L Chloride 94 L (96-109) mmol/L Anion Gap 19.60 H (10.00-18.00) mmol/L BUN 83.0 H (9.0-27.0) mg/dL Creatinine 4.3 H (0.6-1.5) mg/dL Est GFR (CKD-EPI)AfAm 11.1 L (60.0-200.0) Est GFR (CKD-EPI)NonAf 9.6 L (60.0-200.0) BUN/Creatinine Ratio (12.00-20.00) Ratio Glucose 134 H (70-110) mg/dL POC Glucose (mg/dL) 201 H (70-110) mg/dL Calcium 7.4 L (8.7-10.3) mg/dL 04/21/22 04/22/22 04/22/22 Range/Units 20:12 03:40 03:40 WBC 22.12 H (4.50-10.00) X 10*3/uL RBC 3.11 L (4.10-5.20) X 10*6/uL Hgb 8.8 L (12.0-15.0) g/dL Hct 26.9 L (37.2-46.3) % RDW 17.9 H (11.5-14.5) % Absolute Nucleated RBC 0.03 H (0.00-0.00) X 10*3/uL Immature Gran # 0.86 H (0.00-0.04) X 10*3/uL Neutrophils # 18.55 H (1.80-7.70) X 10*3/uL Monocytes # 1.09 H (0.20-1.00) X 10*3/uL Basophils # 0.12 H (0.00-0.10) X 10*3/uL NRBC/100 WBC Diff 0.1 H (0.0-0.0) /100 WBCS Potassium (3.5-5.5) mmol/L Chloride 94 L (96-109) mmol/L Anion Gap (10.00-18.00) mmol/L BUN 82.5 H (9.0-27.0) mg/dL Creatinine 4.1 H (0.6-1.5) mg/dL Est GFR (CKD-EPI)AfAm 11.8 L (60.0-200.0) Est GFR (CKD-EPI)NonAf 10.1 L (60.0-200.0) BUN/Creatinine Ratio 20.12 H (12.00-20.00) Ratio Glucose 130 H (70-110) mg/dL POC Glucose (mg/dL) 158 H (70-110) mg/dL Calcium 6.8 L (8.7-10.3) mg/dL 04/22/22 Range/Units 05:47 WBC (4.50-10.00) X 10*3/uL RBC (4.10-5.20) X 10*6/uL Hgb (12.0-15.0) g/dL Hct (37.2-46.3) % RDW (11.5-14.5) % Absolute Nucleated RBC (0.00-0.00) X 10*3/uL Immature Gran # (0.00-0.04) X 10*3/uL Neutrophils # (1.80-7.70) X 10*3/uL Monocytes # (0.20-1.00) X 10*3/uL Basophils # (0.00-0.10) X 10*3/uL NRBC/100 WBC Diff (0.0-0.0) /100 WBCS Potassium (3.5-5.5) mmol/L Chloride (96-109) mmol/L Anion Gap (10.00-18.00) mmol/L BUN (9.0-27.0) mg/dL Creatinine (0.6-1.5) mg/dL Est GFR (CKD-EPI)AfAm (60.0-200.0) Est GFR (CKD-EPI)NonAf (60.0-200.0) BUN/Creatinine Ratio (12.00-20.00) Ratio Glucose (70-110) mg/dL POC Glucose (mg/dL) 149 H (70-110) mg/dL Calcium (8.7-10.3) mg/dL Microbiology - Last 24 Hours (Table) 04/20/22 15:10 Urine Culture - Final Urine,Voided 04/18/22 06:29 Blood Culture Gram Stain - Final Blood Blood Culture - Final Methicillin resist S. aureus 04/20/22 06:15 Blood Culture Gram Stain - Preliminary Blood 04/17/22 13:40 Gram Stain - Final Foot - Left Wound Culture - Final Methicillin resist S. aureus Enterococcus faecalis VRE 04/19/22 13:05 Blood Culture Gram Stain - Preliminary Blood Blood Culture - Preliminary Presumptive Staph aureus
[2022-04-22] MEDS: PANTOPRAZOLE 40 MG/10 ML VIAL IV SCH (09:58)
[2022-04-22] MEDS: SODIUM BICARBONATE TAB 650 MG TAB PO SCH ×2 (09:59→17:13)
[2022-04-22] MEDS: METOPROLOL TARTRATE 12.5 MG TAB PO SCH (09:59)
[2022-04-22] MEDS: metroNIDAZOLE 500 MG TAB PO SCH ×2 (09:59→17:13)
[2022-04-22] MEDS: AMIODARONE 200 MG TAB PO SCH (09:59)
[2022-04-22] MEDS: DULoxetine HCL 60 MG CAPSULE.DR PO SCH (09:59)
--- NOTE | 2022-04-22 10:46 | CDI ---
Documentation Clarification Form Date: 04/22/2022 10:09:56 AM From: Natali West RN CCDS Admit Date: 04/16/2022 10:54:00 PM Patient Name: Tracee Price Visit Number: [id number] Discharge Date: ATTENTION: The Clinical Documentation Specialists (CDI) and [facility] Coding Staff appreciate your assistance in clarifying documentation. Please respond to the clarification below the line at the bottom and electronically sign. The CDI & [facility] Coding staff will review the response and follow-up if needed. Please note: Queries are made part of the Legal Health Record. If you have any questions, please contact the author of this message via ITS. Dr. Merritt Encephalopathy is documented 04/18, Neurology note. Additional clarification regarding the type of encephalopathy is requested. History/Risk Factors: 72-year-old female presents to the ED with change in mental status and infection of the left foot. Medical History: CAD, Asthma, COPD, DM, chronic foot ulcer, Strokes. Neurology note, 04/18. Clinical Indicators: Neurology note, 04/18: Altered mental status. Encephalopathy of unknown exact etiology but I am concerned of non-convulsive seizure (especially since old stroke that increase risk of seizure). Also hypocalcemia can provoke seizure--- currently Routine EEG did not reveal seizure or epileptiform discharge. Labs: 04/17 NA 133; Carbon Dioxide 17; BUN 47; Cr 2.45; Glucose 172; Calcium 7.6; Total Bilirubin 2.7; Alkaline Phosphate 135; BNP 19350; Albumin 3.4 04/17 Blood Culture: Final MRSA 04/17 Foot Culture: MRSA Enterococcus faecalis VRE 04/18 Blood Culture MRSA 04/19 Blood Cuture Presumptive Staph aureus EE/4 This is an abnormal routine EEG. The background slowing is suggestive of mild to moderate encephalopathy. Otherwise, there is no focal slowing, epileptiform discharge, or seizure on the EEG. 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 No acute intracranial abnormality. Cerebral atrophy Treatment: 04/16 Neurology checks Q15 minutes x 4, Q 30 minutes x2, Q 1 Hour x 8; 10/14 Q 8 Hour; CT Brain, 04/20 Ceftriaxone IVPB Q24HR; 04/20 Daptomycin IVPB Q48H; 04/19 Flagyl 500mg PO TID. Consults: See above Please clarify the type of encephalopathy, if known: [ ] Metabolic Encephalopathy [ x ] Other, please specify___toxic encephalopathy [ ] Unable to determine (Template Last Revised: June 2020) MTDD
[2022-04-22] MEDS ORDERED: POTASSIUM CHLORIDE ER 20 MEQ TAB.ER PO STA (10:57)
[2022-04-22] MEDS ORDERED: MAGNESIUM SULFATE-D5W PMX 1 GM in DEXTROSE/WATER 1 100ML.BAG IVPB ONE (10:58)
--- NOTE | 2022-04-22 10:59 | P.PN ---
Subjective Patient is seen in follow-up for acute kidney injury on chronic kidney disease. Renal function stable with creatinine at 4.1 today. Has Langston catheter. Urine output 225 mL so far today. Blood pressure on the lower side. Vital signs are stable. General: No acute distress. HEENT: Head exam is unremarkable. On nasal cannula. LUNGS: Breath sounds decreased. HEART: Rate and Rhythm are regular. ABDOMEN: Soft, no distention. EXTREMITITES: No edema. Objective - Vital Signs Vital signs: Vital Signs Temp 98.6 F 04/22/22 06:54 Pulse 59 L 04/22/22 06:54 Resp 17 04/22/22 08:00 BP 90/44 04/22/22 06:54 Pulse Ox 90 L 04/22/22 06:54 FiO2 Intake & Output 04/21/22 04/22/22 04/22/22 18:59 06:59 18:59 Intake Total 1130 950 Output Total 225 Balance 1130 725 Intake: Intake, IV Titration 650 950 Amount Dextrose 5% in Water 1, 300 000 ml @ 100 mls/hr IV . [id number] [facility] with Sodium Bicarb (1 Meq/ml) 150 ml Rx#:[id number] Sodium Chloride 0.9% 1, 300 900 000 ml @ 75 mls/hr IV . [id number] [facility] Rx#:[id number] cefTRIAXone 2 gm In 50 50 Sodium Chloride 0.9% 50 ml @ 100 mls/hr IVPB Q24HR [facility] Rx#:[id number] Oral 480 Output: Urine 225 Other: Voiding Method Indwelling Catheter Indwelling Catheter # Bowel Movements 3 1 - Labs CBC & Chem 7: 04/22/22 03:40 04/22/22 03:40 Labs: Abnormal Lab Results - Last 24 Hours (Table) 04/21/22 04/21/22 04/21/22 Range/Units 04:07 11:12 20:12 WBC (4.50-10.00) X 10*3/uL RBC (4.10-5.20) X 10*6/uL Hgb (12.0-15.0) g/dL Hct (37.2-46.3) % RDW (11.5-14.5) % Absolute Nucleated RBC (0.00-0.00) X 10*3/uL Immature Gran # 1.01 H (0.00-0.04) X 10*3/uL Neutrophils # 20.38 H (1.80-7.70) X 10*3/uL Monocytes # (0.20-1.00) X 10*3/uL Basophils # (0.00-0.10) X 10*3/uL NRBC/100 WBC Diff (0.0-0.0) /100 WBCS Chloride (96-109) mmol/L BUN (9.0-27.0) mg/dL Creatinine (0.6-1.5) mg/dL Est GFR (CKD-EPI)AfAm (60.0-200.0) Est GFR (CKD-EPI)NonAf (60.0-200.0) BUN/Creatinine Ratio (12.00-20.00) Ratio Glucose (70-110) mg/dL POC Glucose (mg/dL) 201 H 158 H (70-110) mg/dL Calcium (8.7-10.3) mg/dL 04/22/22 04/22/22 04/22/22 Range/Units 03:40 03:40 05:47 WBC 22.12 H (4.50-10.00) X 10*3/uL RBC 3.11 L (4.10-5.20) X 10*6/uL Hgb 8.8 L (12.0-15.0) g/dL Hct 26.9 L (37.2-46.3) % RDW 17.9 H (11.5-14.5) % Absolute Nucleated RBC 0.03 H (0.00-0.00) X 10*3/uL Immature Gran # 0.86 H (0.00-0.04) X 10*3/uL Neutrophils # 18.55 H (1.80-7.70) X 10*3/uL Monocytes # 1.09 H (0.20-1.00) X 10*3/uL Basophils # 0.12 H (0.00-0.10) X 10*3/uL NRBC/100 WBC Diff 0.1 H (0.0-0.0) /100 WBCS Chloride 94 L (96-109) mmol/L BUN 82.5 H (9.0-27.0) mg/dL Creatinine 4.1 H (0.6-1.5) mg/dL Est GFR (CKD-EPI)AfAm 11.8 L (60.0-200.0) Est GFR (CKD-EPI)NonAf 10.1 L (60.0-200.0) BUN/Creatinine Ratio 20.12 H (12.00-20.00) Ratio Glucose 130 H (70-110) mg/dL POC Glucose (mg/dL) 149 H (70-110) mg/dL Calcium 6.8 L (8.7-10.3) mg/dL Microbiology - Last 24 Hours (Table) 04/20/22 15:10 Urine Culture - Final Urine,Voided 04/18/22 06:29 Blood Culture Gram Stain - Final Blood Blood Culture - Final Methicillin resist S. aureus 04/20/22 06:15 Blood Culture Gram Stain - Preliminary Blood 04/17/22 13:40 Gram Stain - Final Foot - Left Wound Culture - Final Methicillin resist S. aureus Enterococcus faecalis VRE 04/19/22 13:05 Blood Culture Gram Stain - Preliminary Blood Blood Culture - Preliminary Presumptive Staph aureus Assessment and Plan Plan: Assessment: 1. Acute kidney injury secondary to ATN secondary to infection and hypotension. No hydronephrosis noted on kidney ultrasound. Creatinine 2.45 on admission and peaked at 4.3 this admission - 4.1 today. 2. Chronic kidney disease stage IIIB with baseline creatinine 1.3-1.6 in November and January 2022. 3. Left diabetic foot infection and osteomyelitis with staph bacteremia on antibiotics. ID following. 4. Metabolic acidosis secondary to acute kidney injury. s/p bicarb drip. Improved. On oral bicarb. 5. Diabetes mellitus. 6. Anemia of chronic kidney disease. On Aranesp. 7. Hypokalemia from poor intake and intracellular shifting from IV bicarb. Replace. Better. Plan: Maintain normal saline. Replace potassium and magnesium. Maintain Langston catheter. Strict I's and O os. Avoid nephrotoxins. Continue to monitor renal function and urine output. Renal replacement therapy discussed with patient. Patient refusing any form of renal replacement therapy. Continue to assess a daily basis. Hospice has been consulted.
[2022-04-22 11:48] LABS: Glucose,Whole Blood 131 mg/dL (70-110)
[2022-04-22 15:16] VITALS: BP 101/53; PULSE 53; RESP 16; TEMP 97.9
[2022-04-22 16:19] LABS: Glucose,Whole Blood 190 mg/dL (70-110)
--- NOTE | 2022-04-22 20:38 | P.PN ---
Subjective Progress Note Date: 04/22/22 Principal diagnosis: Left diabetic foot ulcer and bacteremia Patient is a 72-year-old female with multiple comorbidities this patient who did have a history of left diabetic foot infection with osteomyelitis for the patient has completed her antibiotic therapy patient will follow with Dr. Gregory at [facility] care center patient mention that the wound on the lateral aspect of the left foot, patient has been part of the hospital for decreased level of consciousness weakness she did have a low-grade fever and on did have evidence of MRSA bacteremia abnormal x-ray of the left foot. on today's evaluation that is 04/22/2022, the patient continues to be afebrile, the patient is breathing comfortably on 4 L nasal cannula oxygen, the patient is more awake and alert today she is breathing comfortably denies any chest pain shortness of breath or cough no abdominal pain or pain to the left foot Objective - Vital Signs Vital signs: Vital Signs Temp 98.6 F 04/22/22 06:54 Pulse 59 L 04/22/22 06:54 Resp 17 04/22/22 08:00 BP 90/44 04/22/22 06:54 Pulse Ox 90 L 04/22/22 06:54 FiO2 Intake & Output 04/21/22 04/22/22 04/22/22 18:59 06:59 18:59 Intake Total 1130 950 Output Total 225 Balance 1130 725 Intake: Intake, IV Titration 650 950 Amount Dextrose 5% in Water 1, 300 000 ml @ 100 mls/hr IV . [id number] [facility] with Sodium Bicarb (1 Meq/ml) 150 ml Rx#:[id number] Sodium Chloride 0.9% 1, 300 900 000 ml @ 75 mls/hr IV . [id number] [facility] Rx#:[id number] cefTRIAXone 2 gm In 50 50 Sodium Chloride 0.9% 50 ml @ 100 mls/hr IVPB Q24HR [facility] Rx#:[id number] Oral 480 Output: Urine 225 Other: Voiding Method Indwelling Catheter Indwelling Catheter # Bowel Movements 3 1 - Exam GENERAL DESCRIPTION: An elderly female lying in bed in no distress RESPIRATORY SYSTEM: Unlabored breathing , decreased breath sounds at bases HEART: S1 S2 regular rate and rhythm , ABDOMEN: Soft , no tenderness EXTREMITIES: Left foot lateral border wound at the base of the fifth toe has dried out no drainage - Labs CBC & Chem 7: 04/22/22 03:40 04/22/22 03:40 Labs: Abnormal Lab Results - Last 24 Hours (Table) 04/21/22 04/21/22 04/21/22 Range/Units 04:07 11:12 20:12 WBC (4.50-10.00) X 10*3/uL RBC (4.10-5.20) X 10*6/uL Hgb (12.0-15.0) g/dL Hct (37.2-46.3) % RDW (11.5-14.5) % Absolute Nucleated RBC (0.00-0.00) X 10*3/uL Immature Gran # 1.01 H (0.00-0.04) X 10*3/uL Neutrophils # 20.38 H (1.80-7.70) X 10*3/uL Monocytes # (0.20-1.00) X 10*3/uL Basophils # (0.00-0.10) X 10*3/uL NRBC/100 WBC Diff (0.0-0.0) /100 WBCS Chloride (96-109) mmol/L BUN (9.0-27.0) mg/dL Creatinine (0.6-1.5) mg/dL Est GFR (CKD-EPI)AfAm (60.0-200.0) Est GFR (CKD-EPI)NonAf (60.0-200.0) BUN/Creatinine Ratio (12.00-20.00) Ratio Glucose (70-110) mg/dL POC Glucose (mg/dL) 201 H 158 H (70-110) mg/dL Calcium (8.7-10.3) mg/dL 04/22/22 04/22/22 04/22/22 Range/Units 03:40 03:40 05:47 WBC 22.12 H (4.50-10.00) X 10*3/uL RBC 3.11 L (4.10-5.20) X 10*6/uL Hgb 8.8 L (12.0-15.0) g/dL Hct 26.9 L (37.2-46.3) % RDW 17.9 H (11.5-14.5) % Absolute Nucleated RBC 0.03 H (0.00-0.00) X 10*3/uL Immature Gran # 0.86 H (0.00-0.04) X 10*3/uL Neutrophils # 18.55 H (1.80-7.70) X 10*3/uL Monocytes # 1.09 H (0.20-1.00) X 10*3/uL Basophils # 0.12 H (0.00-0.10) X 10*3/uL NRBC/100 WBC Diff 0.1 H (0.0-0.0) /100 WBCS Chloride 94 L (96-109) mmol/L BUN 82.5 H (9.0-27.0) mg/dL Creatinine 4.1 H (0.6-1.5) mg/dL Est GFR (CKD-EPI)AfAm 11.8 L (60.0-200.0) Est GFR (CKD-EPI)NonAf 10.1 L (60.0-200.0) BUN/Creatinine Ratio 20.12 H (12.00-20.00) Ratio Glucose 130 H (70-110) mg/dL POC Glucose (mg/dL) 149 H (70-110) mg/dL Calcium 6.8 L (8.7-10.3) mg/dL Microbiology - Last 24 Hours (Table) 04/20/22 15:10 Urine Culture - Final Urine,Voided 04/18/22 06:29 Blood Culture Gram Stain - Final Blood Blood Culture - Final Methicillin resist S. aureus 04/20/22 06:15 Blood Culture Gram Stain - Preliminary Blood 04/17/22 13:40 Gram Stain - Final Foot - Left Wound Culture - Final Methicillin resist S. aureus Enterococcus faecalis VRE 04/19/22 13:05 Blood Culture Gram Stain - Preliminary Blood Blood Culture - Preliminary Presumptive Staph aureus Assessment and Plan (1) Bacteremia Status: Acute Code(s): R78.81 - BACTEREMIA SNOMED Code(s): 5725700 (2) Diabetic foot ulcer associated with type 2 diabetes mellitus Status: Acute Code(s): E11.621 - TYPE 2 DIABETES MELLITUS WITH FOOT ULCER SNOMED Code(s): 4904948829305 Plan: 1patient noted to have a history of left diabetic foot infection and osteomyelitis for the patient has completed her antibiotic therapy many months ago and the patient was almost healed except a small area on the lateral aspect of the left foot which was a scabbed over removed by the home care nurse patient currently do not have any open wound on the fourth toe however significant abnormality has been described on the plain x-rays. 2patient did have elevated CRP of 23.50 and a sed rate of 71. 3bone scan was negative for osteomyelitis 4 patient also have a positive blood culture with MRSA, blood cultures repeat 04/18/2019 as well as 04/19/2022 also positive, concerning for possible deep/endovascular source 5patient to continue with the daptomycin, however with the possible plan for hospice antibiotics can be safely discontinued family at the bedside questions and concerns were answered Time with Patient: Less than 30
--- NOTE | 2022-04-23 18:58 | P.DS ---
Providers Date of admission: 04/16/22 22:54 Expected date of discharge: 04/22/22 Attending physician: Marlena Latham Consults: 04/16/22 22:54 Consult Physician Urgent Consulting Provider: Porfirio Baig Consult Reason/Comments: ams Do you want consulting provider notified?: Yes 04/17/22 10:53 Consult Physician Urgent Consulting Provider: Singh Mccabe Consult Reason/Comments: left foot osteo Do you want consulting provider notified?: Yes 04/17/22 12:04 Consult Physician Urgent Consulting Provider: Rustam Gregory Consult Reason/Comments: left foot wound, known to patient Do you want consulting provider notified?: Yes 04/18/22 13:28 Consult Physician Urgent Consulting Provider: Lay Adan Consult Reason/Comments: prema, ckd Do you want consulting provider notified?: Yes 04/19/22 02:44 Consult Physician Routine Consulting Provider: Amari Garcia Consult Reason/Comments: afib Do you want consulting provider notified?: Yes, Notify in am Primary care physician: Jacob [facility] Hospital Course: Final diagnosis Acute kidney injury secondary ATN secondary infection hypotension, refusing hemodialysis Acute hypoxic respiratory failure secondary to COPD exacerbation Acute on chronic congestive heart failure, with systolic dysfunction, acute exacerbation Diabetic foot ulcer on the left associated with poorly controlled diabetes mellitus, type II, chronic foot ulcer with concerns of possible cellulitis, present on admission, osteomyelitis ruled out on the bone scan Staph Bacteremia secondary to chronic left foot ulcer Paroxysmal atrial fibrillation with RVR, currently sinus rhythm History of coronary artery disease with CABG History of ischemic cardiomyopathy, EF 20-25% Hypertension Hyperlipidemia Chronic obstructive pulmonary disease History of CVA Diabetes mellitus, type II GI prophylaxis DVT prophylaxis No code Discharge disposition Patient is being discharged in a stable condition with guarded prognosis [facility]. Total time taken is greater than 35 minutes. Hospital course This is a 72-year-old female who was recently admitted with altered mental status left foot infection and was being closely monitored. Patient also continued to have worsening kidney functions and nephrology following recommending hemodialysis although patient admits and refusing to initiate dialysis. Patient expresses her wishes to be no code and also has requested hospice consultation. Patient does not want to continue to pursue any further treatment and wishes to be comfortable. Patient will be going to hospice house today. Overall prognosis is poor and guarded. Currently no reports of chest pain, shortness of breath, or palpitations. Patient is afebrile. No reports of nausea or vomiting and patient is tolerating diet. Patient will be going to [facility] today. Physical exam: Gen: This is a 72-year-old female who is awake, alert and oriented 3, well- developed, well-nourished, ill-appearing HEENT: Head is atraumatic, normocephalic. Pupils equal, round. Sclerae is anicteric. NECK: Supple. No JVD. No lymphadenopathy. No thyromegaly. LUNGS: Clear to auscultation. No wheezes or rhonchi. No intercostal retractions. HEART: Regular rate and rhythm. No murmur. ABDOMEN: Soft. Bowel sounds are present. No masses. No tenderness. EXTREMITIES: No pedal edema. No calf tenderness. NEUROLOGICAL: Patient is awake, alert and oriented x3. Cranial nerves 2 through 12 are grossly intact. Please refer to medication reconciliation sheet for a list of medications. The impression and plan of care has been dictated by Lauren Castaneda, Nurse Practitioner as directed. Dr. René MD I have performed a history and examination and MDM of this patient, discussed the same with the dictator, and agree with the dictator's assessment and plan as written ,documented as a scribe. Based on total visit time, I have performed more than 50% of the visit. Patient Condition at Discharge: Poor Plan - Discharge Summary Discharge Rx Participant: No New Discharge Prescriptions: New Metoprolol Tartrate [Lopressor] 12.5 mg PO BID tab Sodium Bicarbonate Tab 650 mg PO TID tab Continue Insulin Glargine,Hum.rec.anlog [Lantus Solostar Pen] 8 unit SQ DAILY@1100 Ferrous Sulfate [Iron (65 MG Elemental)] 325 mg PO DAILY@1100 Cholecalciferol [Vitamin D3 (25 Mcg = 1000 Iu)] 25 mcg PO DAILY@1100 traMADol HCL 50 mg PO BID PRN PRN Reason: Pain Acetaminophen Tab [Tylenol] 650 mg PO Q6HR PRN tab PRN Reason: Mild Pain Or Fever > 100.5 Gabapentin [Neurontin] 300 mg PO HS PRN PRN Reason: Pain Collagenase [Santyl Ointment] 1 applic TOPICAL DAILY@1100 Ondansetron Odt [Zofran ODT] 4 mg PO Q8H PRN PRN Reason: Nausea Amiodarone [Cordarone] 200 mg PO DAILY@1100 Montelukast Sodium [Singulair] 10 mg PO HS DULoxetine HCL [Cymbalta] 60 mg PO DAILY@1100 Insulin Aspart [NovoLOG Flexpen] See Protocol SQ AC-TID Discontinued amLODIPine [Norvasc] 10 mg PO DAILY@1100 Metoprolol Tartrate [Lopressor] 25 mg PO DAILY@1100 Furosemide [Lasix] 20 mg PO DAILY@1100 Apixaban [Eliquis] 2.5 mg PO BID@1100,2100 Lumateperone Tosylate [Caplyta] 42 mg PO DAILY@1100 Zinc Gluconate [Zinc] 50 mg PO DAILY@1100 Discharge Medication List Montelukast Sodium [Singulair] 10 mg PO HS 07/15/20 [History] DULoxetine HCL [Cymbalta] 60 mg PO DAILY@1100 08/29/20 [History] Insulin Glargine,Hum.rec.anlog [Lantus Solostar Pen] 8 unit SQ DAILY@1100 05/16/21 [History] Cholecalciferol [Vitamin D3 (25 Mcg = 1000 Iu)] 25 mcg PO DAILY@1100 02/01/22 [History] Ferrous Sulfate [Iron (65 MG Elemental)] 325 mg PO DAILY@1100 02/01/22 [History] Insulin Aspart [NovoLOG Flexpen] See Protocol SQ AC-TID 02/01/22 [History] traMADol HCL 50 mg PO BID PRN 02/01/22 [History] Acetaminophen Tab [Tylenol] 650 mg PO Q6HR PRN tab 02/12/22 [Rx] Amiodarone [Cordarone] 200 mg PO DAILY@1100 04/16/22 [History] Collagenase [Santyl Ointment] 1 applic TOPICAL DAILY@1100 04/16/22 [History] Gabapentin [Neurontin] 300 mg PO HS PRN 04/16/22 [History] Ondansetron Odt [Zofran ODT] 4 mg PO Q8H PRN 04/16/22 [History] Metoprolol Tartrate [Lopressor] 12.5 mg PO BID tab 04/22/22 [Rx] Sodium Bicarbonate Tab 650 mg PO TID tab 04/22/22 [Rx] Follow up Appointment(s)/Referral(s): Jacob Sanderson DO [Primary Care Provider] - 1-2 days Activity/Diet/Wound Care/Special Instructions: Patient is going to the hospice house Activity as tolerated Patient may decide to take medications as prescribed or may not Continue with comfort measures and pain control Encourage oral intake and use oral anti-nausea medications as needed Discharge Disposition: HOME WITH HOSPICE
== END 2022-04-22 19:20 | disposition hospice, inpatient (51) | DRG 637 ==
LOC: EC 21:07 → 4SSUR 22:54
PROVIDERS: ADMIT Hospitalist; ATTEND Hospitalist
DX: E11.628 Type 2 diabetes mellitus with other skin complications (principal); G92.9 Unspecified toxic encephalopathy; I50.23 Acute on chronic systolic (congestive) heart failure; J96.01 Acute respiratory failure with hypoxia; J44.1 Chronic obstructive pulmonary disease with (acute) exacerbation; R78.81 Bacteremia; I13.0 Hypertensive heart and chronic kidney disease with heart failure and stage 1 through stage 4 chronic kidney disease, or unspecified chronic kidney disease; L03.116 Cellulitis of left lower limb; E87.20 Acidosis, unspecified; E11.621 Type 2 diabetes mellitus with foot ulcer; N17.0 Acute kidney failure with tubular necrosis; D63.1 Anemia in chronic kidney disease; E11.22 Type 2 diabetes mellitus with diabetic chronic kidney disease; E11.40 Type 2 diabetes mellitus with diabetic neuropathy, unspecified; E11.51 Type 2 diabetes mellitus with diabetic peripheral angiopathy without gangrene; N18.32 Chronic kidney disease, stage 3b; L97.529 Non-pressure chronic ulcer of other part of left foot with unspecified severity; E83.51 Hypocalcemia; L89.151 Pressure ulcer of sacral region, stage 1; B95.62 Methicillin resistant Staphylococcus aureus infection as the cause of diseases classified elsewhere; Z51.5 Encounter for palliative care; Z20.822 Contact with and (suspected) exposure to COVID-19; E87.6 Hypokalemia; M06.9 Rheumatoid arthritis, unspecified; I25.10 Atherosclerotic heart disease of native coronary artery without angina pectoris; E78.5 Hyperlipidemia, unspecified; I48.0 Paroxysmal atrial fibrillation; I95.9 Hypotension, unspecified; D50.9 Iron deficiency anemia, unspecified; I27.20 Pulmonary hypertension, unspecified; I25.5 Ischemic cardiomyopathy; G93.89 Other specified disorders of brain; I65.23 Occlusion and stenosis of bilateral carotid arteries; Z87.01 Personal history of pneumonia (recurrent); Z88.1 Allergy status to other antibiotic agents; Z95.1 Presence of aortocoronary bypass graft; Z91.15 Patient's noncompliance with renal dialysis; Z89.411 Acquired absence of right great toe; Z89.422 Acquired absence of other left toe(s); Z86.73 Personal history of transient ischemic attack (TIA), and cerebral infarction without residual deficits; Z79.899 Other long term (current) drug therapy; Z79.01 Long term (current) use of anticoagulants; Z79.4 Long term (current) use of insulin; I25.2 Old myocardial infarction; Z87.39 Personal history of other diseases of the musculoskeletal system and connective tissue
CPT/HCPCS: 36415; 70450; 71046; 76770; 78315; 80048; 80053; 81001; 82140; 82330; 83735; 83880; 84484; 85025; 85610; 85652; 85730; 86140; 87040; 87070; 87077; 87086; 87186; 87205; 87636; 93005; 95816; 96361; 96365; 96366; 96367; 96375; 96376; 99285